=== PATIENT | male | born 1970 | race Caucasian/White ===

== ENCOUNTER 2023-02-10 16:23 | Outpatient (OUT) | payer MEDICARE, MEDICAID, SELFPAY ==
[2023-02-10 16:45] LABS: Basophils Absolute Auto 0.1 10^3/uL (0.0-0.1); Basophils Percent Auto 1.7 % (0.2-2.0); Eosinophils Absolute Auto 0.1 10^3/uL (0.0-0.7); Eosinophils Percent Auto 1.7 % (0.9-7.0); Hematocrit 45.5 % (42.0-54.0); Immature Granulocytes Abs Auto 0.02 10^3/uL (0.00-0.03); Immature Granulocytes Pct Auto 0.3 % (0.0-0.5); Lymphocytes Absolute Auto 1.7 10^3/uL (1.2-3.8); Mean Corpuscular HGB Conc 35.2 g/dL (29.9-35.2); Mean Corpuscular Hemoglobin 31.9 pg (25.9-34.0); Mean Corpuscular Volume 90.8 fL (80.0-94.0); Mean Platelet Volume 9.4 fL (9.5-13.5); Monocytes Absolute Auto 0.5 10^3/uL (0.3-0.8); Monocytes Percent Auto 7.4 % (1.7-12.0); Neutrophils Absolute Auto 3.9 10^3/uL (1.4-6.5); Neutrophils Percent Auto 61.9 % (43.0-75.0); Platelet Count 349 10^3/uL (150-450); Red Blood Count 5.01 10^6/uL (4.70-6.10); Red Cell Distribution Width 12.4 % (11.0-15.0); White Blood Count 6.4 10^3/uL (4.0-11.0)
[2023-02-10 17:02] LABS: Alanine Aminotransferase 21 U/L (16-63); Albumin Globulin Ratio 1.6; Albumin Level 4.4 g/dL (3.4-5.0); Alkaline Phosphatase 90 U/L (46-116); Anion Gap 9.8; Aspartate Amino Transferase 11 U/L (15-37); BUN Creatinine Ratio 3.4; Bilirubin Total 0.6 mg/dL (0.2-1.0); Calcium 8.6 mg/dL (8.5-10.1); Carbon Dioxide 32.2 mmol/L (21.0-32.0); Chloride 96 mmol/L (98-107); Estimated GFR (African America >60 (>=60); Estimated GFR (Non-African Ame >60 (>=60); Globulin 2.7 g/dL; Glucose 100 mg/dL (74-106); Sodium 134 mmol/L (136-145); Total Protein 7.1 g/dL (6.4-8.2)
[2023-02-10 18:25] LABS: Bilirubin Urine NEGATIVE (NEGATIVE); Blood Urine TRACE-I (NEGATIVE); Clarity Urine CLEAR (CLEAR); Color Urine LT. YELLOW (YELLOW); Glucose Urine UA NEGATIVE (NEGATIVE); Ketones Urine NEGATIVE (NEGATIVE); Leukocyte Esterase Urine SMALL (NEGATIVE); Nitrite Urine NEGATIVE (NEGATIVE); Protein Urine 30 mg/dL (NEG/TRACE); Specific Gravity Urine 1.015 (1.005-1.025); Urobilinogen Urine 0.2 EU/dL (0.2-1.0)
== END 2023-02-10 16:24 | disposition home or self-care (01) ==
PROVIDERS: PCP Family Medicine; Visit Provider Psychiatry & Neurology Neurology
DX: G35 Multiple sclerosis (principal); R82.89 Other abnormal findings on cytological and histological examination of urine
CPT/HCPCS: 36415; 80053; 81003; 85025; 87086

== ENCOUNTER 2023-07-09 10:51 | Outpatient (OUT) | payer MEDICARE, MEDICAID, SELFPAY ==
[2023-07-09 11:25] LABS: Basophils Absolute Auto 0.1 10^3/uL (0.0-0.1); Basophils Percent Auto 1.1 % (0.2-2.0); Eosinophils Absolute Auto 0.1 10^3/uL (0.0-0.7); Eosinophils Percent Auto 0.9 % (0.9-7.0); Hematocrit 47.8 % (42.0-54.0); Hemoglobin 15.9 g/dL (14.0-18.0); Immature Granulocytes Abs Auto 0.03 10^3/uL (0.00-0.03); Immature Granulocytes Pct Auto 0.2 % (0.0-0.5); Lymphocytes Absolute Auto 1.4 10^3/uL (1.2-3.8); Lymphocytes Percent Auto 11.8 % (20.5-60.0); Mean Corpuscular HGB Conc 33.3 g/dL (29.9-35.2); Mean Corpuscular Hemoglobin 30.7 pg (25.9-34.0); Mean Corpuscular Volume 92.3 fL (80.0-94.0); Mean Platelet Volume 9.9 fL (9.5-13.5); Monocytes Absolute Auto 0.6 10^3/uL (0.3-0.8); Monocytes Percent Auto 4.6 % (1.7-12.0); Neutrophils Absolute Auto 9.9 10^3/uL (1.4-6.5); Neutrophils Percent Auto 81.4 % (43.0-75.0); Platelet Count 489 10^3/uL (150-450); Red Blood Count 5.18 10^6/uL (4.70-6.10); Red Cell Distribution Width 12.5 % (11.0-15.0); White Blood Count 12.1 10^3/uL (4.0-11.0)
[2023-07-09 11:32] LABS: Alanine Aminotransferase 38 U/L (16-63); Albumin Globulin Ratio 1.1; Albumin Level 3.9 g/dL (3.4-5.0); Alkaline Phosphatase 97 U/L (46-116); Anion Gap 12.8; Aspartate Amino Transferase 23 U/L (15-37); BUN Creatinine Ratio 12.1; Bilirubin Total 0.5 mg/dL (0.2-1.0); Calcium 9.4 mg/dL (8.5-10.1); Carbon Dioxide 29.6 mmol/L (21.0-32.0); Chloride 99 mmol/L (98-107); Estimated GFR (African America >60 (>=60); Estimated GFR (Non-African Ame >60 (>=60); Globulin 3.4 g/dL; Glucose 77 mg/dL (74-106); Potassium 4.4 mmol/L (3.5-5.1); Sodium 137 mmol/L (136-145); Total Protein 7.3 g/dL (6.4-8.2)
== END 2023-07-09 10:52 | disposition home or self-care (01) ==
LOC: LAB 10:53
PROVIDERS: PCP Family Medicine
DX: G35 Multiple sclerosis (principal)
CPT/HCPCS: 36415; 80053; 85025

== ENCOUNTER 2023-08-26 05:25 | Inpatient (IN) | payer MEDICARE, MEDICAID, SELFPAY ==
[2023-08-26] VITALS (73 sets, daily range): BP systolic 99–183; BP diastolic 72–127; PULSE 77–122; RESP 12–32; TEMP 36.7–37.1; O2SAT 76–98; BMI 15.8
--- OUTSIDE RECORDS SUMMARY | 2023-08-26 05:33 | XMS_ITS | CCD ---
Author Name Unknown Address [address] [facility] [facility] [address] [place] [address] Organization [facility] Care Team Providers Care Industrial Maintenance Manager Name Role Phone Tunde Das Admitting Unavailable Tunde Das Attending Unavailable Bubba Ghotra Primary Care Unavailable BUBBA GHOTRA Primary Care Physician Heri MURRELL Referring Unavailable Heri MURRELL Admitting Unavailable Heri MURRELL Attending Unavailable Heri MURRELL Attending Unavailable LAMAR TURNER Attending Unavailable Heri MURRELL Attending Unavailable RIC ., ESA Attending Unavailable RIC ., ESA Admitting Unavailable HEMEJUDITH ., DR PEREIRA Primary Care Unavailable MARKER ., DR LIN Consulting Unavailable RIC ., ESA Consulting Unavailable LAKSHMIPATHY ., NARENDRANATH Consulting Maureen vailable HEMEYER ., DR PEREIRA Primary Care Unavailable HEMEYER ., DR PEREIRA Admitting Unavailable HEMEYER ., DR PEREIRA Attending Unavailable HEMEYER ., DR PEREIRA Admitting Unavailable HEMEYER ., DR PEREIRA Attending Unavailable HEMEYER ., DR PEREIRA Consulting Unavailable HEMEYER ., DR PEREIRA Primary Care Unavailable HEMEYER ., DR PEREIRA Primary Care Unavailable TATI, DR KELSEA Hamilton Attending Unavailayo DUFFY, DR KELSEA Hamilton Admitting Unavailabl e PIEDAD ., GILSON MCGRAW Consulting Unavailabl e RIC ., ESA Attending Unavailable RIC ., ESA Admitting Unavailable RIC ., ESA Consulting Unavailable HEMEYER ., DR PEREIRA Primary Care Unavailable KAIA SHEIKH Consulting Unavailable MISC, DR MASON Admitting Unavailable REQUEST, DR THOMASON LISTED Primary Care UnavailABIMAEL Willis Consulting Unavailable DONALD, DR MASON Attending Unavailable JULIO ., DR VILLAGOMEZ Attending Unavailable JULIO ., DR VILLAGOMEZ Admitting Unavailable [place], DR CRUZITO Schuster Consulting Unavailable HEMEYER ., DR PEREIRA Primary Care Unavailable JULIO ., DR VILLAGOMEZ Consulting Unavailable YUE, LAMAR Attending Unavailable YUE, LAMAR Admitting Unavailable YUE, LAMAR Consulting Unavailable HEMEYER ., DR PEREIRA Primary Care Unavailable BINH, JERI Attending Unavailable BINH, JERI Admitting Unavailable BINH, JERI Consulting Unavailable HEMEYER ., DR PEREIRA Primary Care Unavailable LAKSHMIPATHY ., NARENDRANATH Attending Maureen vailable LAKSHMIPATHY ., NARENDRANATH Admitting Maureen vailable LAKSHMIPATHY ., NARENDRANATH Consulting Maureen vailable HEMEYER ., DR PEREIRA Primary Care Unavailable BENEDICT, DR PORRAS Attending Unavailable BENEDICT, DR PORRAS Admitting Unavailable BENEDICT, DR PORRAS Consulting Unavailable HEMEYER ., DR PEREIRA Primary Care Unavailable REQUEST, DR NONE LISTED Primary Care Unavaila ble BENEDICT, DR PORRAS Attending Unavailable BENEDICT, DR PORRAS Admitting Unavailable BENEDICT, DR PORRAS Consulting Unavailable ZIEBER, DR VERN Ortiz Consulting Unavailable REQUEST, DR NONE LISTED Primary Care Unavaila ble BENEDICT, DR PORRAS Attending Unavailable BENEDICT, DR PORRAS Admitting Unavailable ZIEBER, DR VERN Ortiz Consulting Unavailable ROMERO ., DR LISA Schwartz Attending Unavailable ROMERO ., DR LISA Schwartz Admitting Unavailable GARRETT ., JULIA Consulting Unavailable HEMEYER ., DR PEREIRA Primary Care Unavailable LAKSHMIPATHY ., NARENDRANATH Attending Maureen vailable LAKSHMIPATHY ., NARENDRANATH Admitting Maureen vailable LAKSHMIPATHY ., NARENDRANATH Consulting Maureen vailable HEMEYER ., DR PEREIRA Primary Care Unavailable JERI PURCELL Attending Unavailable BINHJERI GARCÍA Admitting Unavailable HEMEYER ., DR PEREIRA Primary Care Unavailable BENEDICT, DR PORRAS Consulting Unavailable BENEDICT, DR PORRAS Attending Unavailable BENEDICT, DR PORRAS Admitting Unavailable ZIEBER, DR VERN Ortiz Consulting Unavailable LOWE, ANJALI Consulting Unavailable BENEDICT, DR PORRAS Attending Unavailable BENEDICT, DR PORRAS Admitting Unavailable HEMEYER ., DR PEREIRA Primary Care Unavailable MISC, DR MASON Admitting Unavailable REQUEST, DR NONE LISTED Primary Care Unavaila ble MISC, DR MASON Attending Unavailable JERI PURCELL Consulting Unavailable ROMERO ., DR LISA Schwartz Attending Unavailable GARRETT ., JULIA Consulting Unavailable ROMERO ., DR LISA Schwartz Admitting Unavailable HEMEYER ., DR PEREIRA Primary Care Unavailable Mahnaz Roth Unavailable MATY MEDEIROS Attending Unavailable Allergies Allergy Classification Reported Allergen(s) Allergy Type Date of Onset Reaction(s) Facility (13 sources) PARoxetine; Translations: [paroxetine] Drug Allergy Mild (qualifier value) [facility] (2 sources) PARoxetine Drug Allergy 3 [facility] (12 sources) venlafaxine Drug Allergy 3 Unknown [facility] Medications Current Medications Medication Drug Class(es) Dates Sig (Normalized) Sig (Original) [id number] actuat albuterol 0.09 mg/actuat metered dose inhaler (10 sources) beta2-Adrenergic Agonist take 1 puff(s) by inhalation every four hours as needed Albuterol Sulfate HFA 108 (90 Base) MCG/ACT 1 puff as needed Inhalation every 4 hrs Active take 1 puff(s) by in halation every four hours as needed Albuterol Sulfate HFA 108 (90 Base) MCG/ACT 1 puff as needed Inhalation every 4 hrs Active amitriptyline hydrochloride 50 mg oral tablet (2 sources) Tricyclic Antidepressant Start: 08-06-2021 take 1 tablet by mouth once daily at bedtime amitriptyline 50 mg Tab 50 mg = 1 tab(s), Oral, Once a day (at bedtime), # 30 tab(s), Refills(s) 0 Start Date: 08/06/21 Status: Ordered baclofen 10 mg oral tablet (12 sources) gamma-Aminobutyric Acid-ergic Agonist Start: 08-06-2021 take 5 mg by mouth three times daily baclofen 10 mg Tab 5 mg = 0.5 tab(s), Oral, TID, # 30 tab(s), Refills(s) 0 Start Date: 08/06/21 Status: Ordered Baclofen 10 MG a s directed Orally qid Active busPIRone hydrochloride 7.5 mg oral tablet (10 sources) take 1 tablet by mouth every twelve hours busPIRone HCl 7.5 MG 1 tablet Orally Twice a day Active ciprofloxacin 500 mg oral tablet (1 source) Quinolone Antimicrobial Start: 12-03-19 take 1 tablet by mouth twice daily Cipro 500 mg Tab 500 mg = 1 tab(s), Oral, BID, Start medication 3 days prior to procedure., # 14 tab(s), Refills(s) 0, Pharmacy: [facility]/pharmacy #[id number], 178, cm, 10/14/21 12:57:00 EDT, Height/Length Dosing, 65.8, kg, 10/14/21 12:57:00 EDT, Weight Dosing Start Date: 12/02/21 Status: Ordered clonazePAM 0.5 mg oral tablet (10 sources) Benzodiazepine take 1 tablet by mouth every twenty-four hours KlonoPIN 0.5 MG 1 tablet Orally Once a day Active DHEA (2 sources) Start: 08-31-19 DHEA Oral, Daily, Refills(s) 0 Start Date: 08/31/19 Status: Ordered diazePAM 10 mg oral tablet (1 source) Benzodiazepine Start: 10-15-19 Valium 10 mg Tab 10 mg = 1 tab(s), Oral, Once, Take 1/2 hour prior to procedure, # 1 tab(s), Refills(s) 0, Pharmacy: [facility]/pharmacy #[id number], 178, cm, 10/14/21 12:57:00 EDT, Height/Length Dosing, 65.8, kg, 10/14/21 12:57:00 EDT, Weight Dosing Start Date: 10/14/21 Status: Ordered diclofenac sodium 50 mg delayed release oral tablet (2 sources) Nonsteroidal Anti-inflammatory Drug Start: 08-06-19 take 1 mg by mouth three times daily diclofenac sodium 50 mg Oral EC Tab mg tab(s), Oral, TID, Refills(s) 0 Start Date: 08/06/21 Status: Ordered Start: 08-06-2021 take 1 mg by mouth t hree times daily diclofenac sodium 50 mg Oral EC Tab mg tab(s), Oral, TID, Refills(s) 0 Start Date: 08/06/21 Status: Ordered Cymbalta (12 sources) Serotonin and Norepinephrine Reuptake Inhibitor Start: 08-06-2021 Cymbalta Oral, Refills(s) 0 Start Date: 08/06/21 Status: Ordered take 1 capsule by [facility] every twenty-four hours DULoxetine HCl 60 MG 1 capsule Orally Once a day Active HYDROcodone bitartrate 7.5 mg / ibuprofen 200 mg oral tablet (2 sources) Opioid Agonist, Nonsteroidal Anti-inflammatory Drug Start: 08-06-2021 take 1 tablet by mouth three times daily for pain hydrocodone-ibuprofen 7.5 mg-200 mg Oral Tab 1 tab(s), Oral, TID for pain, Refill(s) 0 Start Date: 08/06/21 Status: Ordered losartan potassium 100 mg oral tablet (2 sources) Angiotensin 2 Receptor Karen Start: 10-14-2021 take 1 tablet by mouth once daily losartan 100 mg Tab 100 mg = 1 tab(s), Oral, Daily Start Date: 10/14/21 Status: Ordered meclizine hydrochloride 25 mg oral tablet (10 sources) Antiemetic take 1 tablet by mouth every twelve hours Meclizine HCl 25 MG 1 tablet as needed Orally every 12 hrs Active Melatonin (2 sources) Start: 08-31-2019 melatonin Once a day (at bedtime), Refills(s) 0 Start Date: 08/31/19 Status: Ordered 24 hr metoprolol succinate 50 mg extended release oral tablet (12 sources) beta-Adrenergic Karen Start: 12-05-2021 take 1 tablet by mouth twice daily metoprolol 50 mg ER Tab 50 mg = 1 tab(s), Oral, BID, Refills(s) 0 Start Date: 12/05/21 Status: Ordered take 1 tablet by rachel th every twelve hours Metoprolol Tartrate 50 MG 1 tablet with food Orally Twice a day Active Multi Vitamin+ (2 sources) Start: 08-31-2019 Multi Vitamin+ Refill(s) 0 Start Date: 08/31/19 Status: Ordered 10 ml ocrelizumab 30 mg/ml injection (10 sources) Ocrevus 300 MG/10ML as directed Intravenous As Directed Active ondansetron 4 mg oral tablet (10 sources) Serotonin-3 Receptor Antagonist take 1 tablet by mouth every twenty-four hours Ondansetron HCl 4 MG 1 tablet Orally Once a day Active OXcarbazepine 300 mg oral tablet (12 sources) Anti-epileptic Agent Start: 08-06-2021 take 2 tablets by mouth twice daily Trileptal 300 mg Tab 600 mg = 2 tab(s), Oral, BID, # 120 tab(s), Refills(s) 0 Start Date: 08/06/21 Status: Ordered take 1 tablet by rachel th every twelve hours OXcarbazepine 300 MG 1 tablet Orally Twi ce a day Active oxyCODONE hydrochloride 10 mg oral tablet (10 sources) Opioid Agonist Start: 08-21-2023 take 1 tablet by mouth every six hours oxyCODONE HCl 10 MG 1 tablet as needed Orally every 6 hrs for 30 days G89.4 palliative care prescribing Aug, Active Start: 07-22-2023 take 1 tablet by rachel th every six hours oxyCODONE HCl 10 MG 1 tablet as needed Orally every 6 hrs for 30 days G89.4 palliative care prescribing Jul, Active Start: 06-24-2023 take 1 tablet by rachel th every six hours oxyCODONE HCl 10 MG 1 tablet as needed Orally every 6 hrs for 30 days G89.4 palliative care prescribing Jun, Active Start: 05-28-2023 take 1 tablet by rachel th every six hours oxyCODONE HCl 10 MG 1 tablet as needed Orally every 6 hrs for 30 days G89.4 palliative care prescribing May, Active Start: 04-21-2023 take 1 tablet by rachel th every six hours oxyCODONE HCl 10 MG 1 tablet as needed Orally every 6 hrs for 30 days G89.4 palliative care prescribing Apr, Active Start: 04-07-2023 take 1 tablet by rachel th every six hours oxyCODONE HCl 10 MG 1 tablet as needed Orally every 6 hrs for 15 days G89.4 palliative care prescribing Mar, Active Start: 04-01-2023 take 1 tablet by rachel th every six hours oxyCODONE HCl 10 MG 1 tablet as needed Orally every 6 hrs for 7 days G89.4 palliative care prescribing Mar, Active Start: 03-25-2023 take 1 tablet by rachel th every eight hours oxyCODONE HCl 10 MG 1 tablet as needed Orally TID for 10 days G89.4 palliative care prescribing Mar, Active pantoprazole 40 mg delayed release oral tablet (12 sources) Proton Pump Inhibitor Start: 08-06-2021 take 1 mg by mouth twice daily pantoprazole 40 mg Oral EC Tab mg tab(s), Oral, BID, Refills(s) 0 Start Date: 08/06/21 Status: Ordered Start: 02-04-2021 take 1 tablet by rachel th every twelve hours Pantoprazole Sodium 40 MG 1 tablet Orally TWICE A DAY for 30 days Jan, Active predniSONE 10 mg oral tablet (10 sources) prednisone 10 mg as directed Orally as directed PRN Active pregabalin 200 mg oral capsule (12 sources) Start: 08-06-2021 take 1 capsule by mouth three times daily Lyrica 200 mg Cap 200 mg = 1 cap(s), Oral, TID, Refills(s) 0 Start Date: 08/06/21 Status: [facility] Pregabalin 200 MG 1 capsule 1 to 3 hours before bedtime Orally Once a day Active primidone 50 mg oral tablet (12 sources) Anti-epileptic Agent Start: 08-06-2021 primidone 50 mg Tab 25 mg = 0.5 tab(s), Oral, Once a day (at bedtime), # 15 tab(s), Refills(s) 0 Start Date: 08/06/21 Status: Ordered take 1 tablet by rachel th every twenty-four hours Primidone 50 MG 1 tablet Orally Once a day Active Promethazine (10 sources) Phenothiazine Promethazine HCl PRN Active QUEtiapine 25 mg oral tablet (12 sources) Atypical Antipsychotic Start: 08-06-19 take 2 tablets by mouth three times daily SEROquel 25 mg Tab 50 mg = 2 tab(s), Oral, TID, Refills(s) 0 Start Date: 08/06/21 Status: Ordered take 1 tablet by rachel th every twenty-four hours SEROquel 50 MG 1 tablet at bedtime Orally Once a day Active sennosides, residential 8.6 mg oral tablet (9 sources) Start: 04-02-2023 take 2 tablets by mouth twice daily as needed Senna 8.6 MG 2 tabs as needed Orally BID for 30 days Mar, Active tamsulosin hydrochloride 0.4 mg oral capsule (1 source) alpha-Adrenergi c Karen Start: 08-06-2021 take 1 capsule by mouth once daily Flomax 0.4 mg Cap 0.4 mg = 1 cap(s), Oral, Daily, # 30 cap(s), Refills(s) 0 Start Date: 08/06/21 Status: Ordered Problems Active Problems Problem Classification Problem Date Documented Da te Episodic/Chronic Administrative/social admission (1 source) Other specified counseling Episodic Anxiety disorders (14 sources) Anxiety disorder, unspecified; Translations: [Anxiety] Onset: 2 Chronic Asthma (3 sources) Asthma; Translations: [Unspecified asthma, uncomplicated] Onset: 3 08-31-2019 Chronic Blindness and vision defects (1 source) Other visual disturbances; Translations: [OTHER VISUAL DISTURBANCES] Onset: 3 Episodic Chronic obstructive pulmonary disease and bronchiectasis (3 sources) Chronic obstructive lung disease; Translations: [Emphysema, unspecified] Onset: 2 08-31-2019 Chronic Disorders of lipid metabolism (2 sources) Hyperlipidemia 08-31-2019 Chronic Esophageal disorders (10 sources) Gastroesophageal reflux disease; Translations: [Gastro-esophageal reflux disease without esophagitis] Chronic Essential hypertension (1 source) Essential (primary) hypertension; Translations: [ESSENTIAL PRIMARY HYPERTENSION] Onset: 3 Chronic Fluid and electrolyte disorders (1 source) Hypo-osmolality and hyponatremia; Translations: [HYPO-OSMOLALITY AND HYPONATREMIA] Onset: 3 Episodic Genitourinary symptoms and ill-defined conditions (4 sources) Post-micturition incontinence ; Translations: [Urge incontinence of urine] 08-31-2019 Chronic Hyperplasia of prostate (3 sources) Benign prostatic hypertrophy with outflow obstruction; Translations: [Benign prostatic hyperplasia with lower urinary tract symptoms] Onset: 2 10-14-2021 Chronic Malaise and fatigue (3 sources) Weakness; Translations: [WEAKNESS] Onset: 3 Episodic Mood disorders (3 sources) Depressive disorder; Translations: [Major depressive disorder, recurrent, moderate] Onset: 2 08-31-2019 Chronic Multiple sclerosis (18 sources) Multiple sclerosis; Translations: [Multiple sclerosis] Onset: 3 09-21-2019 Chronic Comment on above: Aug 2000 Nausea and vomiting (15 sources) Nausea with vomiting, unspecified; Translations: [Nausea] Onset: 3 Episodic Other aftercare (1 source) Other group home (current) drug therapy; Translations: [OTH [facility] CURRENT DRUG THERAPY] Onset: 3 Episodic Other aftercare (10 sources) Seen by palliative care physician; Translations: [Encounter for palliative care] Episodic Other aftercare (1 source) Encounter for palliative care Episodic Other diseases of kidney and ureters (1 source) Urinary tract obstruction; Translations: [Other obstructive and reflux uropathy] Onset: 2 Episodic Other gastrointestinal disorders (10 sources) Constipation; Translations: [Constipation, unspecified] Episodic Other gastrointestinal disorders (5 sources) Constipation, unspecified Episodic Other male genital disorders (2 sources) Mass of epididymis 08-31-2019 Episodic Other nervous system disorders (14 sources) Other chronic pain; Translations: [OTHER CHRONIC PAIN] Onset: 3 Chronic Other nervous system disorders (1 source) Polyneuropathy, unspecified; Translations: [POLYNEUROPATHY UNSPECIFIED] Onset: 2 Chronic Other nervous system disorders (1 source) Chronic pain syndrome; Translations: [CHRONIC PAIN SYNDROME] Onset: 2 Chronic Other nervous system disorders (10 sources) Chronic pain; Translations: [Other chronic pain] Chronic Other nervous system disorders (1 source) Paresthesia of skin; Translations: [PARESTHESIA OF SKIN] Onset: 3 Episodic Other screening for suspected conditions (not mental disorders or infectious disease) (3 sources) Raised prostate specific antigen; Translations: [Elevated prostate specific antigen [PSA]] Onset: 2 10-14-2021 Episodic Residual codes; unclassified (2 sources) Family history of malignant neoplasm of urinary bladder 08-31-2019 Episodic Residual codes; unclassified (1 source) Procedure and treatment not carried out because of patient's decision for other reasons; Translations: [PROC AND TX NOT CARRIED OUT PT OTH RSN] Onset: 3 Episodic Screening and history of mental health and substance abuse codes (2 sources) Ex-smoker 08-31-2019 Episodic Substance-related disorders (1 source) Nicotine dependence, cigarettes, uncomplicated; Translations: [NICOTINE DEPEND CIGARETTES UNCOMP] Onset: 3 Chronic Unclassified (1 source) G35 - Multiple sclerosis; Translations: [G35 - Multiple sclerosis] Onset: 8 Unclassified (2 sources) Asymptomatic microscopic hematuria 10-14-2021 Unclassified (2 sources) Finding of sensation of bladder 08-31-2019 Unclassified (1 source) CONTACT W/AND (SUSP) EXPOS COVID-19; Translations: [CONTACT W/AND (SUSP) EXPOS COVID-19] Onset: 3 Unclassified (2 sources) COUGH, UNSPECIFIED; Translations: [COUGH, UNSPECIFIED] Onset: 2 Past or Other Problems Problem Classification Problem Date Documented Da te Episodic/Chronic Genitourinary symptoms and ill-defined conditions (13 sources) Dysuria; Translations: [Increased frequency of urination] Onset: 12-12-2021 08-31-2019 Episodic Other lower respiratory disease (1 source) Shortness of breath; Translations: [SHORTNESS OF BREATH] Onset: 05-30-2022 Episodic Pneumonia (except that caused by tuberculosis or sexually transmitted disease) (1 source) Pneumonia, unspecified organism; Translations: [PNEUMONIA UNSPECIFIED ORGANISM] Onset: 05-30-2022 Episodic Unclassified (1 source) COUGH, UNSPECIFIED; Translations: [COUGH, UNSPECIFIED] Onset: 05-28-2022 Results Test Name Value Interpretation Reference Range Facility AMYLASEon 11-13-2022 Amylase [Catalytic activity/Vol] 37 U/L Normal 25-115 [facility] Comment on above: Performed By: #### A MY, CMP, LIPA ####[facility] [id number] [address]Dr. Cortez Younger CBC AUTO DIFFon 11-13-2022 BASO # 0.1 103/ul Normal 0.0-0.1 [facility] Comment on above: Performed By: #### C BC #### [facility] [address] [address] [address] Cortez Younger Basophils/100 WBC (Bld) 1.3 % Normal 0.2-2.0 [facility] Comment on above: Performed By: #### C BC #### [facility] [address] [address] [address] Cortez Younger EO # 0.1 103/ul Normal 0.0-0.7 [facility] Comment on above: Performed By: #### C BC #### [facility] [address] [address] [address] Cortez Younger Eosinophils/100 WBC (Bld) 0.9 % Normal 0.9-7.0 [facility] Comment on above: Performed By: #### C BC #### [facility] [address] [place] [address] Dr. Cortez Younger Erythrocyte distribution width (RBC) [Ratio] 12.5 % Normal 11.0-15.0 [facility] Comment on above: Performed By: #### C BC #### [facility] [address] [place] [address] Dr. Cortez Younger Hematocrit (Bld) [Volume fraction] 42.3 % Normal 42.0-54.0 [facility] Comment on above: Performed By: #### C BC #### [facility] [address] [place] [address] Dr. Cortez Younger Hemoglobin (Bld) [Mass/Vol] 15.1 g/dL Normal 14.0-18.0 [facility] Comment on above: Performed By: #### C BC #### [facility] [address] [place] [address] Dr. Cortez Younger IG # 0.04 10e3/ul Critically high 0.00-0.03 [facility] Comment on above: Performed By: #### C BC #### [facility] [address] [place] [address] Dr. Cortez Younger IG % 0.6 % Critically high 0.0-0.5 [facility] Comment on above: Performed By: #### C BC #### [facility] [address] [place] [address] Dr. Cortez Younger LYMPH # 1.4 103/ul Normal 1.2-3.8 [facility] Comment on above: Performed By: #### C BC #### [facility] [address] [place] [address] Dr. Cortez Younger Lymphocytes/100 WBC (Bld) 20.7 % Normal 20.5-60.0 [facility] Comment on above: Performed By: #### C BC #### [facility] [address] [place] [address] Dr. Cortez Younger MANUAL DIFF REQ NO Normal [facility] Comment on above: Performed By: #### C BC #### [facility] [address] [place] [address] Dr. Cortez Younger MCH (RBC) [Entitic mass] 31.6 pg Normal 25.9-34.0 [facility] Comment on above: Performed By: #### C BC #### [facility] [address] [place] [address] Dr. Cortez Younger MCHC (RBC) [Mass/Vol] 35.7 g/dL Critically high 29.9-35.2 [facility] Comment on above: Performed By: #### C BC #### [facility] [address] [place] [address] Dr. Cortez Younger MCV (RBC) [Entitic vol] 88.5 fL Normal 80.0-94.0 [facility] Comment on above: Performed By: #### C BC #### [facility] [address] [place] [address] Dr. Cortez Younger MONO # 0.5 103/ul Normal 0.3-0.8 [facility] Comment on above: Performed By: #### C BC #### [facility] [address] [place] [address] Dr. Cortez Younger Monocytes/100 WBC (Bld) 7.7 % Normal 1.7-12.0 [facility] Comment on above: Performed By: #### C BC #### [facility] [address] [place] [address] Dr. Cortez Younger NEUT # 4.8 103/ul Normal 1.4-6.5 [facility] Comment on above: Performed By: #### C BC #### [facility] [address] [place] [address] Dr. Cotrez Younger Neutrophils/100 WBC (Bld) 68.8 % Normal 43.0-75.0 [facility] Comment on above: Performed By: #### C BC #### [facility] [address] [place] [address] Dr. Cortez Younger Platelet mean volume (Bld) [Entitic vol] 9.0 fL Critically low 9.5-13.5 [facility] Comment on above: Performed By: #### C BC #### [facility] [address] [address] [address] Cortez Younger PLT 384 103/ul Normal 150-450 [facility] Comment on above: Performed By: #### C BC #### [facility] [address] [address] [address] Cortez Younger RBC 4.78 106/ul Normal 4.70-6.10 [facility] Comment on above: Performed By: #### C BC #### [facility] [address] [address] [address] Cortez Younger WBC 7.0 103/ul Normal 4.0-11.0 [facility] Comment on above: Performed By: #### C BC #### [facility] [address] [place] [address] Dr. Cortez Younger ER URINE PROFILEon 3 Bilirubin Ql (U) Negative Normal NEGATIVE [facility] Comment on above: Performed By: #### E RUR ####[facility] [id number] [place], [place] [address]Dr. Cortez Younger Clarity (U) CLEAR Normal CLEAR [facility] Comment on above: Performed By: #### E RUR ####[facility] [facility] [address] [place], [place] [address]Dr. Cortez Younger Color (U) LT. YELLOW Normal YELLOW [facility] Comment on above: Performed By: #### E RUR ####[facility] Ydvbggivxf[address] [place], [place] [address]Dr. Cortez Younger ERUAHD A micrscopic examina tion will be performed if indicated. Normal [facility] Comment on above: Performed By: #### E RUR ####[facility] Znjjvufyht434[address] [place], [place] [address]Dr. Cortez Younger Glucose Ql (U) Negative Normal NEGATIVE [facility] Comment on above: Performed By: #### E RUR ####[facility] Aanxdwsscm[address] [place], [place] [address]Dr. Cortez Younger Hemoglobin Ql (U) Negative Normal NEGATIVE [facility] Comment on above: Performed By: #### E RUR ####[facility] [address] [place] [address]Dr. Cortez Younger Ketones Ql (U) Negative Normal NEGATIVE [facility] Comment on above: Performed By: #### E RUR ####[facility] Xvozvnyjrx[address] [place] [address]Dr. Cortez Younger LEUKOCYTES Negative Normal NEGATIVE [facility] Comment on above: Performed By: #### E RUR ####[facility] Hldgjktuta24[address] [place], [place] [address]Dr. Cortez Younger Nitrite Ql (U) Negative Normal NEGATIVE [facility] Comment on above: Performed By: #### E RUR ####[facility] Bprpawzipb67[address] [place], [place] [address]Dr. Cortez Younger pH (U) 7.5 [pH] Normal 5-9 [facility] Comment on above: Performed By: #### E RUR ####[facility] Mqqeropqoz[address] [place], [place] [address]Dr. Cortez Younger SPEC GRAVITY <=1.005 Abnormal 1.005-<=1.025 [facility] Comment on above: Performed By: #### E RUR ####[facility] Qumfihmwif[address] [place], [place] [address]Dr. Cortez Younger UA PROTEIN Negative Normal NEGATIVE/ TRACE [facility] Comment on above: Performed By: #### E RUR ####[facility] Yumcwrgekz[address] [place], [place] [address]Dr. Cortez Younger UR MICRO IND NOT INDICATED Normal [facility] Comment on above: Performed By: #### E RUR ####[facility] Vvomqwbrxf[address] [place], [place] [address]Dr. Cortez Younger Urobilinogen Qn (U) 0.2 {Fidelia'U}/dL Normal 0.2 - 1. 0 [facility] Comment on above: Performed By: #### E RUR ####[facility] Zmfqasivvr[address] [place], [place] [address]Dr. Cortez Younger LIPASEon 05-04-2023 Lipase [Catalytic activity/Vol] 111.0 U/L Normal 73.0-393.0 [facility] Comment on above: Performed By: #### A MY, CMP, LIPA ####[facility] [address]wxyn[address] [place] [address]Dr. Cortez Younger PROF 14(COMP METB)on 023 Albumin [Mass/Vol] 3.9 g/dL Normal 3.4-5.0 [facility] Comment on above: Performed By: #### A MY, CMP, LIPA ####[facility] [address]xl[address] [place] [id number]. Cortez Younger Albumin/Globulin [Mass ratio] 1.4 {ratio} Normal [facility] Comment on above: Performed By: #### A MY, CMP, LIPA ####[facility] Xemnnilema[address] [place] [address]Dr. Cortez Younger ALP [Catalytic activity/Vol] 70 U/L Normal 46-116 [facility] Comment on above: Performed By: #### A MY, CMP, LIPA ####[facility] Efnipsmyyt[address] [place] [address]Dr. Cortez Younger ALT [Catalytic activity/Vol] 24 U/L Normal 16-63 [facility] Comment on above: Performed By: #### A MY, CMP, LIPA ####[facility] Zolqkocgkt[address] [place] [address]Dr. Cortez Younger Anion gap [Moles/Vol] 9.8 mmol/L Normal [facility] Comment on above: Performed By: #### A MY, CMP, LIPA ####[facility] [address]gojwpujfx[address] [place] [id number]. Cortez Younger AST [Catalytic activity/Vol] 12 U/L Critically low 15-37 [facility] Comment on above: Performed By: #### A MY, CMP, LIPA ####[facility] Ltcqinscke[address] [place] [address]Dr. Cortez Younger Bilirubin [Mass/Vol] 0.3 mg/dL Normal 0.2-1.0 [facility] Comment on above: Performed By: #### A MY, CMP, LIPA ####[facility] [address] [place] [address]Dr. oCrtez Younger Calcium [Mass/Vol] 9.2 mg/dL Normal 8.5-10.1 [facility] Comment on above: Performed By: #### A MY, CMP, LIPA ####[facility] Atqrldrfon[address] [place], [place] [address]Dr. Cortez Younger Chloride [Moles/Vol] 98 mmol/L Normal 98-107 [facility] Comment on above: Performed By: #### A MY, CMP, LIPA ####[facility] Qvyxuvijlf[address] [place], [place] [address]Dr. Cortez Younger CO2 [Moles/Vol] 28.7 mmol/L Normal 21.0-32.0 [facility] Comment on above: Performed By: #### A MY, CMP, LIPA ####[facility] Djytbhrvyo[address] [place], [place] [address]Dr. Cortez Younger Creatinine [Mass/Vol] 0.88 mg/dL Normal 0.70-1.30 [facility] Comment on above: Performed By: #### A MY, CMP, LIPA ####[facility] Rsredpubep[address] [place], [place] [address]Dr. Cortez Younger EGFR-AF SAMOAN >60 Normal >=60 [facility] Comment on above: Performed By: #### A MY, CMP, LIPA ####[facility] Mrawnpwnwx[address] [place], [place] [address]Dr. Cortez Younger EGFR-NON AF SAMOAN >60 Normal >=60 [facility] Comment on above: Performed By: #### A MY, CMP, LIPA ####[facility] Ycdriamgya[address] [place], [place] [address]Dr. Cortez Younger Globulin (S) [Mass/Vol] 2.7 g/dL Normal [facility] Comment on above: Performed By: #### A MY, CMP, LIPA ####[facility] Eofqijycav[address] [place], [place] [address]Dr. Cortez Younger Glucose [Mass/Vol] 105 mg/dL Normal 74-106 [facility] Comment on above: Performed By: #### A MY, CMP, LIPA ####[facility] [address]xd[address] [place] [address]Dr. Cortez Younger Potassium [Moles/Vol] 3.5 mmol/L Normal 3.5-5.1 [facility] Comment on above: Performed By: #### A MY, CMP, LIPA ####[facility] Pvqosqwcey[address] [place] [address]Dr. Cortez Younger Protein [Mass/Vol] 6.6 g/dL Normal 6.4-8.2 [facility] Comment on above: Performed By: #### A MY, CMP, LIPA ####[facility] Vfcoqkksxl[address] [place] [address]Dr. Cortez Younger Sodium [Moles/Vol] 133 mmol/L Critically low 136-145 [facility] Comment on above: Performed By: #### A MY, CMP, LIPA ####[facility] [address]aqwyocng[address] [place] [address]Dr. Cortez Younger Urea nitrogen [Mass/Vol] 4.0 mg/dL Critically low 7.0-18.0 [facility] Comment on above: Performed By: #### A MY, CMP, LIPA ####[facility] [address]om[address]fdup[address] [place] [address]Dr. Cortez Younger Urea nitrogen/Creatinine [Mass ratio] 4.5 mg/mg Normal [facility] Comment on above: Performed By: #### A MY, CMP, LIPA ####[facility] Zdoaciorqt[address] [place] [address]Dr. Cortez Younger XR ABD FLAT UP_PA Farideh 11-13 XR ABD FLAT UP_PA CH EXAMINATION: XR ABD FLAT UP_PA CH HISTORY: NAUSEA WITH VOMITING, UNSPECIFIED COMPARISON: 05/28/2022 FINDINGS: LUNGS: No infiltrate, pneumothorax, or pleural effusion. MEDIASTINUM: No abnormal widening. BOWEL GAS PATTERN: Non-obstructed. FREE AIR: None. CALCIFICATIONS: None significant. BONES: No fracture or visible bone lesion. OTHER: Negative. IMPRESSION: Clear lungs Nonobstructive bowel gas pattern Electronically authenticated by: CRUZITO CRENSHAW Date: 2022-11-13 13:22 Normal [facility] FREE T4on 10-31-2022 Free T4 [Mass/Vol] 1.03 ng/dL Normal 0.76-1.46 [facility] Comment on above: Performed By: #### E RUR #### [facility] [address] [place] [address] Dr. Cortez Younger LIPID PROFILEon 10-31-2022 CHOL-HDL RATIO NORM SEE BELOW Normal [facility] Comment on above: Result Comment: 3.3 - 4.4 LOW RISK 4.4 - 7.1 AVERAGE RISK 7.1 - 11.0 MODERATE RISK >11.0 HIGH RISK Performed By: #### E RUR #### [facility] [address] [place] [address] Dr. Cortez Younger Cholesterol [Mass/Vol] 165 mg/dL Normal <=200 [facility] Comment on above: Performed By: #### E RUR #### [facility] [address] [address] [address] Cortez Younger Cholesterol in HDL [Mass/Vol] 59 mg/dL Normal 40-60 [facility] Comment on above: Performed By: #### E RUR #### [facility] [address] [place] [address] Dr. Cortez Younger Cholesterol in LDL [Mass/Vol] 83.8 mg/dL Normal [facility] Comment on above: Performed By: #### E RUR #### [facility] [address] [address] [address] Cortez Younger Cholesterol.total/C holesterol in HDL [Mass ratio] 2.8 {ratio} Normal [facility] Comment on above: Performed By: #### E RUR #### [facility] [address] [place] [address] Dr. Cortez Younger HDL NORMAL > or = 60 mg/dl - LO W CARDIOVASCULAR RISK <40 mg/dl - HIGH CARDIOVASCULAR RISK Normal [facility] Comment on above: Performed By: #### E RUR #### [facility] [address] [address] [address] Cortez Younger LDL CALC NORMAL SEE BELOW Normal [facility] Comment on above: Result Comment: <100 mg/dl OPTIMAL 100 - 129 mg/dl NEAR OR ABOVE OPTIMAL 130 - 159 mg/dl BORDERLINE HIGH 160 - 189 mg/dl HIGH >190 mg/dl VERY HIGH Performed By: #### E RUR #### [facility] [address] [address] [address] Cortez Younger Triglyceride [Mass/Vol] 111 mg/dL Normal <=150 [facility] Comment on above: Performed By: #### E RUR #### [facility] [address] [place] [address] Dr. Cortez Younger VLDL CALC 22.2 mg/dL Normal [facility] Comment on above: Performed By: #### E RUR #### [facility] [address] [place] [address] Dr. Cortez Younger MRI BRAIN WO W CONon 023 MRI BRAIN WO W CON EXAMINATION: MRI BRA IN WO W CON HISTORY: Multiple sclerosis ; recent visual changes COMPARISON: MRI brain 01/02/2022, 04/01/2021 TECHNIQUE: A variety of imaging planes and parameters were utilized for visualization of suspected pathology. Images were performed without and with ml Dotare[employer] contrast. FINDINGS: CEREBRUM: Stable appearance of several deep white matter lesions compatible with areas of demyelination; no appreciable change in size or enhancement to suggest active demyelination. No new lesions. No evidence of acute or subacute infarction. CEREBELLUM: No edema, hemorrhage, mass, acute infarction, or inappropriate atrophy. BRAINSTEM: No edema, hemorrhage, mass, acute infarction, or inappropriate atrophy. CSF SPACES: Ventricles, cisterns, and sulci are appropriate for age. No hydrocephalus, subarachnoid hemorrhage, or mass. SKULL: No mass or other significant visible lesion. Stable 2.1 cm x 0.4 cm crescentic shaped areas increased T2 signal overlying the lateral right frontal bone; possible fluid collection; nonspecific. SINUSES: Limited views demonstrate no significant mucosal thickening or fluid. ORBITS: Limited views are unremarkable. OTHER: No abnormal meningeal or parenchymal enhancement. IMPRESSION: 1. Stable deep white matter changes compatible with multiple sclerosis. No new lesions or enhancement to suggest active demyelination. 2. Unremarkable orbits. Electronically authenticated by: VERN LU Date: 2022-10-31 13:12 Normal [facility] PROF 14(COMP METB)on 023 Albumin [Mass/Vol] 4.0 g/dL Normal 3.4-5.0 [facility] Comment on above: Performed By: #### C MP ####[facility] [address] [place] [address]Dr. Cortez Younger Albumin/Globulin [Mass ratio] 1.3 {ratio} Normal [facility] Comment on above: Performed By: #### C MP ####[facility] [address] [place] [address]Dr. Cortez Younger ALP [Catalytic activity/Vol] 66 U/L Normal 46-116 [facility] Comment on above: Performed By: #### C MP ####[facility] R[address]xou[address] [place] [address]Dr. Cortez Younger ALT [Catalytic activity/Vol] 21 U/L Normal 16-63 [facility] Comment on above: Performed By: #### C MP ####[facility] Iyblougogb[address] [place] [address]Dr. Cortez Younger Anion gap [Moles/Vol] 9.4 mmol/L Normal [facility] Comment on above: Performed By: #### C MP ####[facility] Xkpxpqqhhp[address] [place] [address]Dr. Cortez Younger AST [Catalytic activity/Vol] 10 U/L Critically low 15-37 [facility] Comment on above: Performed By: #### C MP ####[facility] Tvlsjamcsd[address] [place] [address]Dr. Cortez Younger Bilirubin [Mass/Vol] 0.4 mg/dL Normal 0.2-1.0 [facility] Comment on above: Performed By: #### C MP ####[facility] Qkwfmdoecw[address] [place] [address]Dr. Cortez Younger Calcium [Mass/Vol] 9.1 mg/dL Normal 8.5-10.1 [facility] Comment on above: Performed By: #### C MP ####[facility] Avngbsswlb[address] [place] [address]Dr. Cortez Younger Chloride [Moles/Vol] 98 mmol/L Normal 98-107 [facility] Comment on above: Performed By: #### C MP ####[facility] [address]ke[address] [place] [id number]. Cortez Younger CO2 [Moles/Vol] 29.8 mmol/L Normal 21.0-32.0 [facility] Comment on above: Performed By: #### C MP ####[facility] Tbprdghowe[address] [place] [address]Dr. Cortez Younger Creatinine [Mass/Vol] 0.89 mg/dL Normal 0.70-1.30 [facility] Comment on above: Performed By: #### C MP ####[facility] E[address]ou[address]tah[address] [place], [place] [address]Dr. Cortez Younger EGFR-AF SAMOAN >60 Normal >=60 [facility] Comment on above: Performed By: #### C MP ####[facility] Xvuvewzuhy[address] [place] [address]Dr. Cortez Younger EGFR-NON AF SAMOAN >60 Normal >=60 [facility] Comment on above: Performed By: #### C MP ####[facility] Utnhanwkmh[address] [place] [address]Dr. Cortez Younger Globulin (S) [Mass/Vol] 3.1 g/dL Normal [facility] Comment on above: Performed By: #### C MP ####[facility] Uxvxsbucxj[address] [place] [address]Dr. Cortez Younger Glucose [Mass/Vol] 109 mg/dL Critically high 74-106 [facility] Comment on above: Performed By: #### C MP ####[facility] Ektexyktiw[address] [place] [address]Dr. Cortez Younger Potassium [Moles/Vol] 4.2 mmol/L Normal 3.5-5.1 [facility] Comment on above: Performed By: #### C MP ####[facility] [address]dtcagi[address] [place] [id number]. Cortez Younger Protein [Mass/Vol] 7.1 g/dL Normal 6.4-8.2 [facility] Comment on above: Performed By: #### C MP ####[facility] Wntlsqqlkc5[address] [place] [id number]. Cortez Younger Sodium [Moles/Vol] 133 mmol/L Critically low 136-145 [facility] Comment on above: Performed By: #### C MP ####[facility] Zeyjpsjxwq[address] [place] [address]Dr. Cortez Younger Urea nitrogen [Mass/Vol] 7.0 mg/dL Normal 7.0-18.0 [facility] Comment on above: Performed By: #### C MP ####[facility] Kykbdsekzg[address] [place] [address]Dr. Cortez Younger Urea nitrogen/Creatinine [Mass ratio] 7.9 mg/mg Normal [facility] Comment on above: Performed By: #### C MP ####[facility] Qzlldircjz[address] [place] [address]Dr. Cortez Younger TSHon 10-31-2022 TSH 1.574 uIU/mL Normal 0.358-3.740 [facility] Comment on above: Performed By: #### T SH #### [facility] [address] [place] [address] Dr. Cortez Younger COMPLIANCE DRUG SCREENon PDF . [facility] Comment on above: Performed By: #### E RUR #### [facility] [address] [place] [address] Dr. Cortez Younger Summary FINAL Normal [facility] Comment on above: Result Comment: == TOXASSURE COMP DRUG ANALYSIS,UR == Test Result Flag Units Drug Present Desmethyldiazepam 885 ng/mg creat Oxazepam 3065 ng/mg creat Temazepam 2460 ng/mg creat Desmethyldiazepam, oxazepam, and temazepam are benzodiazepine drugs, but may also be present as common metabolites of other benzodiazepine drugs, including diazepam. Carboxy-THC 105 ng/mg creat Carboxy-THC is a metabolite of tetrahydrocannabinol (THC). Source of THC is most commonly herbal marijuana or marijuana-based products, but THC is also present in a scheduled prescription medication. Trace amounts of THC can be present in hemp and cannabidiol (CBD) products. This test is not intended to distinguish between agjms-4-iyjsgwowufokegimryie, the predominant form of THC in most herbal or marijuana-based products, and mabox-9-ucznyintqziubjqwlomw. Norhydrocodone 1620 ng/mg creat Norhydrocodone is an expected metabolite of hydrocodone. Primidone PRESENT Phenobarbital PRESENT Phenobarbital is an expected metabolite of primidone; Phenobarbital may also be administered as a prescription drug. Pregabalin PRESENT Oxcarbazepine MHD PRESENT Oxcarbazepine MHD is the active metabolite of oxcarbazepine and eslicarbazepine. Baclofen PRESENT Acetaminophen PRESENT Metoprolol PRESENT == Test Result Flag Units Ref Range Creatinine 20 mg/dL >=20 == Declared Medications: Medication list was not provided. == For clinical consultation, please call . == Performed By: #### E RUR #### [facility] [address] [place] [address] Dr. Cortez Younger HYDROCODONE AND METABOLITE, URINEon 10-24-2022 Hydrocodone 55 ng/mL Normal [facility] Comment on above: Performed By: #### E RUR #### [facility] [address] [place] [address] Dr. Cortez Younger Hydromorphone Negative Normal [facility] Comment on above: Result Comment: This test was developed and its performance characteristics determined by [employer]. It has not been cleared or approved by the Food and Drug Administration. Performed By: #### E RUR #### [facility] [address] [place] [address] Dr. Cortez Younger OSMOLALITYon 10-20-2022 Osmolality QNSREP Normal [facility] Comment on above: Result Comment: Spec imen quantity insufficient for verification by repeat analysis. contacted Lynda at your facility on 10-20-2022 Performed By: #### C BC #### [facility] [address] [place] [address] Dr. Cortez Younger OSMOLALITY URINEon Osmolality, Urine 119 mOsmol/kg Normal [facility] Comment on above: Result Comment: 24 h r : 300 - 900 Random: 50 - 1400 After 12hr fluid restriction: >850 Performed By: #### O SMOU ####[facility] [address] [place] [address]Dr. Cortez Younger CBC AUTO DIFFon 10-16-2022 BASO # 0.0 103/ul Normal 0.0-0.1 [facility] Comment on above: Performed By: #### C BC ####[facility] [address] [place] [id number]. Cortez Younger Basophils/100 WBC (Bld) 0.3 % Normal 0.2-2.0 [facility] Comment on above: Performed By: #### C BC ####[facility] [address]rguyvwuf[address] [place] [address]Dr. Cortez Younger EO # 0.0 103/ul Normal 0.0-0.7 [facility] Comment on above: Performed By: #### C BC ####[facility] Pfds[address]ro[address] [place], [place] [address]Dr. Cortez Younger Eosinophils/100 WBC (Bld) 0.2 % Critically low 0.9-7.0 [facility] Comment on above: Performed By: #### C BC ####[facility] Zorvpupgen[address] [place], [place] [address]Dr. Cortez Younger Erythrocyte distribution width (RBC) [Ratio] 12.1 % Normal 11.0-15.0 [facility] Comment on above: Performed By: #### C BC ####[facility] Wzezwgwmor[address] [place], [place] [address]Dr. Cortez Younger Hematocrit (Bld) [Volume fraction] 45.9 % Normal 42.0-54.0 [facility] Comment on above: Performed By: #### C BC ####[facility] Hve[address]vks[address] [place], [place] [address]Dr. Cortez Younger Hemoglobin (Bld) [Mass/Vol] 16.7 g/dL Normal 14.0-18.0 [facility] Comment on above: Performed By: #### C BC ####[facility] [address]qu[address] [place] [address]Dr. Cortez Aren IG # 0.06 10e3/ul Critically high 0.00-0.03 [facility] Comment on above: Performed By: #### C BC ####[facility] [address]wfoxe[address] [id number]. Eleanorvalerie Younger IG % 0.5 % Normal 0.0-0.5 [facility] Comment on above: Performed By: #### C BC ####[facility] [address]ke[address] [place] [address]Dr. Cortez Aren LYMPH # 1.5 103/ul Normal 1.2-3.8 [facility] Comment on above: Performed By: #### C BC ####[facility] [address]qxpgdgk[address] [place] [address]Dr. Eleanorvalerie Younger Lymphocytes/100 WBC (Bld) 13.5 % Critically low 20.5-60.0 [facility] Comment on above: Performed By: #### C BC ####[facility] [address]mr[address]zse[address] [place] [address]Dr. Eleanorvalerie Younger MANUAL DIFF REQ NO Normal [facility] Comment on above: Performed By: #### C BC ####[facility] [address] [place] [id number]. Cortez Aren MCH (RBC) [Entitic mass] 31.2 pg Normal 25.9-34.0 [facility] Comment on above: Performed By: #### C BC ####[facility] [address]uwuwfu[address] [place] [address]Dr. Cortez Younger MCHC (RBC) [Mass/Vol] 36.4 g/dL Critically high 29.9-35.2 [facility] Comment on above: Performed By: #### C BC ####[facility] [address]vrxihd[address] [place] [id number]. Cortez Aren MCV (RBC) [Entitic vol] 85.6 fL Normal 80.0-94.0 [facility] Comment on above: Performed By: #### C BC ####[facility] [address] [place], [place] [address]Dr. Cortez Younger MONO # 0.6 103/ul Normal 0.3-0.8 [facility] Comment on above: Performed By: #### C BC ####[facility] [address]zbf[address] [place] [id number]. Cortez Younger Monocytes/100 WBC (Bld) 5.4 % Normal 1.7-12.0 [facility] Comment on above: Performed By: #### C BC ####[facility] [address]ynzduou[address] [place] [id number]. Cortez Younger NEUT # 8.9 103/ul Critically high 1.4-6.5 [facility] Comment on above: Performed By: #### C BC ####[facility] R[address]bxhedyx[address] [place] [id number]. Cortez Younger Neutrophils/100 WBC (Bld) 80.1 % Critically high 43.0-75.0 [facility] Comment on above: Performed By: #### C BC ####[facility] [address]ix[address] [place] [address]Dr. Cortez Younger Platelet mean volume (Bld) [Entitic vol] 9.7 fL Normal 9.5-13.5 [facility] Comment on above: Performed By: #### C BC ####[facility] [address] [place] [id number]. Cortez Younger PLT 364 103/ul Normal 150-450 [facility] Comment on above: Performed By: #### C BC ####[facility] [address] [place] [place] [id number]. Cortez Younger RBC 5.36 106/ul Normal 4.70-6.10 [facility] Comment on above: Performed By: #### C BC ####[facility] [address] [place] [id number]. Cortez Younger WBC 11.1 103/ul Critically high 4.0-11.0 [facility] Comment on above: Performed By: #### C BC ####[facility] [address] [place], [place] [address]Dr. Cortez Younger Covid-19 PCR (CVDTB)on SARS-CoV-2 (COVID-19) RNA AXEL+probe Ql (Unsp spec) Not detected Normal NOT DETECTED [facility] Comment on above: Result Comment: When diagnostic testing is negative, the possibility of a false negative should be considered in the context of a patient's recent exposures and the presence of clinical signs and symptoms consistent with SARS-CoV-2. This test is not yet approved or cleared by the [place] FDA. When there are no FDA-approved or cleared tests available, and other criteria are met, FDA can make tests available under an emergency access mechanism called an Emergency Use Authorization (EUA). The EUA for this test is supported by the [employer] of Health and Human Service's declaration that circumstances exist to justify the emergency use of in vitro diagnostics for the detection and/or diagnosis of the virus that causes COVID-19. This EUA will remain in effect for the duration of the COVID-19 declaration justifying emergency of IVDs, unless it is terminated or revoked by the FDA (after which the test may no longer be used). Performed By: #### C VDTB ####[facility] [address] [address]Dr. Cortez Younger DRUG SCREEN RAPID (URINE)on 10-16-2022 AMP Negative Normal NEGATIVE [facility] Comment on above: Performed By: #### C BC #### [facility] [address] [place] [address] Dr. Cortez Younger BAR Positive Abnormal NEGATIVE [facility] Comment on above: Performed By: #### C BC #### [facility] [address] [place] [address] Dr. Cortez Younger BUP Negative Normal NEGATIVE [facility] Comment on above: Performed By: #### C BC #### [facility] [address] [place] [address] Dr. Cortez Younger BZO Positive Abnormal NEGATIVE [facility] Comment on above: Performed By: #### C BC #### [facility] [address] [place] [address] Dr. Cortez Younger OK Negative Normal NEGATIVE [facility] Comment on above: Performed By: #### C BC #### [facility] [address] [place] [address] Dr. Cortez Younger CUT-OFFS SEE BELOW Normal [facility] Comment on above: Result Comment: AMP (Amphetamine): 500ng/mL, BAR (Barbituates): 200 ng/mL, BZO (Benzodiazepines): 150 ng/mL, BUP (Buprenorphine): 10 ng/mL, OK (Cocaine): 150 ng/mL, mAMP (Methamphetamine): 500 ng/mL, MTD (Methadone): 200 ng/mL, OPI (Opiates): 100 ng/mL, OXY (Oxycodone): 100 ng/mL, PCP (Phencyclidine): 25 ng/mL, PPX (Propoxyphene): 300 ng/mL, THC (Cannabinoids): 50 ng/mL, TCA (Trycyclic Antidepressants): 300 ng/mL Performed By: #### C BC #### [facility] [address] [place] [address] Dr. Cortez Younger DRUG CUT HEADER DRUG CLASS TEST SYST EM CUT-OFF CONCENTRATIONS ARE FOLLOWS: Normal [facility] Comment on above: Performed By: #### C BC #### [facility] [address] [place] [address] Dr. Cortez Younger mAMP Negative Normal NEGATIVE [facility] Comment on above: Performed By: #### C BC #### [facility] [address] [place] [address] Dr. Cortez Younger MTD Negative Normal NEGATIVE [facility] Comment on above: Performed By: #### C BC #### [facility] [address] [place] [address] Dr. Cortez Younger OPI Positive Abnormal NEGATIVE [facility] Comment on above: Performed By: #### C BC #### [facility] [address] [place] [address] Dr. Cortez Younger OXY Negative Normal NEGATIVE [facility] Comment on above: Performed By: #### C BC #### [facility] [address] [place] [address] Dr. Cortez Younger PCP Negative Normal NEGATIVE [facility] Comment on above: Performed By: #### C BC #### [facility] [address] [place] [address] Dr. Cortez Younger PPX Negative Normal NEGATIVE [facility] Comment on above: Performed By: #### C BC #### [facility] [address] [place] [address] Dr. Cortez Younger TCA Negative Normal NEGATIVE [facility] Comment on above: Performed By: #### C BC #### [facility] [address] [place] [address] Dr. Cortez Younger THC Positive Abnormal NEGATIVE [facility] Comment on above: Performed By: #### C BC #### [facility] [address] [place] [address] Dr. Cortez Younger ER URINE PROFILEon 3 Bilirubin Ql (U) Negative Normal NEGATIVE [facility] Comment on above: Performed By: #### C BC #### [facility] [address] [place] [address] Dr. Cortez Younger Clarity (U) CLEAR Normal CLEAR [facility] Comment on above: Performed By: #### C BC #### [facility] [address] [place] [address] Dr. Cortez Younger Color (U) LT. YELLOW Normal YELLOW [facility] Comment on above: Performed By: #### C BC #### [facility] [address] [place] [address] Dr. Cortez Younger ERUAHD A micrscopic examina tion will be performed if indicated. Normal [facility] Comment on above: Performed By: #### C BC #### [facility] [address] [place] [address] Dr. Cortez Younger Glucose Ql (U) Negative Normal NEGATIVE [facility] Comment on above: Performed By: #### C BC #### [facility] [address] [place] [address] Dr. Cortez Younger Hemoglobin Ql (U) Negative Normal NEGATIVE [facility] Comment on above: Performed By: #### C BC #### [facility] [address] [place] [address] Dr. Cortez Younger Ketones Ql (U) Negative Normal NEGATIVE [facility] Comment on above: Performed By: #### C BC #### [facility] [address] [place] [address] Dr. Cortez Younger LEUKOCYTES Negative Normal NEGATIVE [facility] Comment on above: Performed By: #### C BC #### [facility] [address] [address] [address] Cortez Younger Nitrite Ql (U) Negative Normal NEGATIVE [facility] Comment on above: Performed By: #### C BC #### [facility] [address] [place] [address] Dr. Cortez Younger pH (U) 7.5 [pH] Normal 5-9 [facility] Comment on above: Performed By: #### C BC #### [facility] [address] [place] [address] Dr. Cortez Younger SPEC GRAVITY <=1.005 Abnormal 1.005-<=1.025 [facility] Comment on above: Performed By: #### C BC #### [facility] [address] [place] [address] Dr. Cortze Younger UA PROTEIN Negative Normal NEGATIVE/ TRACE [facility] Comment on above: Performed By: #### C BC #### [facility] [address] [place] [address] Dr. Cortez Younger UR MICRO IND NOT INDICATED Normal [facility] Comment on above: Performed By: #### C BC #### [facility] [address] [place] [address] Dr. Cortez Younger Urobilinogen Qn (U) 0.2 {Fidelia'U}/dL Normal 0.2 - 1. 0 [facility] Comment on above: Performed By: #### C BC #### [facility] [address] [place] [address] Dr. Cortez Younger NAon 10-16-2022 Sodium [Moles/Vol] 125 mmol/L Critically low 136-145 Th [facility] Comment on above: Performed By: #### E RUR #### [facility] [address] [place] [address] Dr. Cortez Younger POTASSIUM URINEon 10-16-2022 UR POTASSIUM 11.8 mmol/L Normal [facility] Comment on above: Performed By: #### K U ####[facility] [address] [address]Dr. Cortez Younger PROF 14(COMP METB)on 023 Albumin [Mass/Vol] 4.2 g/dL Normal 3.4-5.0 [facility] Comment on above: Performed By: #### E RUR #### [facility] [address] [address] [address] Cortez Younger Albumin/Globulin [Mass ratio] 1.3 {ratio} Normal [facility] Comment on above: Performed By: #### E RUR #### [facility] [address] [address] [address] Cortez Younger ALP [Catalytic activity/Vol] 75 U/L Normal 46-116 [facility] Comment on above: Performed By: #### E RUR #### [facility] [address] [place] [address] Dr. Cortez Younger ALT [Catalytic activity/Vol] 23 U/L Normal 16-63 [facility] Comment on above: Performed By: #### E RUR #### [facility] [address] [place] [address] Dr. Cortez Younger Anion gap [Moles/Vol] 9.7 mmol/L Normal [facility] Comment on above: Performed By: #### E RUR #### [facility] [address] [place] [address] Dr. Cortez Younger AST [Catalytic activity/Vol] 16 U/L Normal 15-37 [facility] Comment on above: Performed By: #### E RUR #### [facility] [address] [place] [address] Dr. Cortez Younger Bilirubin [Mass/Vol] 0.4 mg/dL Normal 0.2-1.0 [facility] Comment on above: Performed By: #### E RUR #### [facility] [address] [place] [address] Dr. Cortez Younger Calcium [Mass/Vol] 9.1 mg/dL Normal 8.5-10.1 [facility] Comment on above: Performed By: #### E RUR #### [facility] [address] [address] [address] Cortez Younger Chloride [Moles/Vol] 88 mmol/L Critically low 98-107 [facility] Comment on above: Performed By: #### E RUR #### [facility] [address] [place] [address] Dr. Cortez Younger CO2 [Moles/Vol] 26.5 mmol/L Normal 21.0-32.0 [facility] Comment on above: Performed By: #### E RUR #### [facility] [address] [place] [address] Dr. Cortez Younger Creatinine [Mass/Vol] 0.73 mg/dL Normal 0.70-1.30 [facility] Comment on above: Performed By: #### E RUR #### [facility] [address] [place] [address] Dr. Cortez Younger EGFR-AF SAMOAN >60 Normal >=60 [facility] Comment on above: Performed By: #### E RUR #### [facility] [address] [place] [address] Dr. Cortez Younger EGFR-NON AF SAMOAN >60 Normal >=60 [facility] Comment on above: Performed By: #### E RUR #### [facility] [address] [place] [address] Dr. Cortez Younger Globulin (S) [Mass/Vol] 3.2 g/dL Normal [facility] Comment on above: Performed By: #### E RUR #### [facility] [address] [address] [address] Cortez Younger Glucose [Mass/Vol] 109 mg/dL Critically high 74-106 T [facility] Comment on above: Performed By: #### E RUR #### [facility] [address] [place] [address] Dr. Cortez Younger Potassium [Moles/Vol] 4.2 mmol/L Normal 3.5-5.1 [facility] Comment on above: Performed By: #### E RUR #### [facility] [address] [place] [address] Dr. Cortez Younger Protein [Mass/Vol] 7.4 g/dL Normal 6.4-8.2 [facility] Comment on above: Performed By: #### E RUR #### [facility] [address] [address] [address] Cortez Younger Sodium [Moles/Vol] 120 mmol/L Critically low 136-145 Th [facility] Comment on above: Performed By: #### E RUR #### [facility] [address] [address] [address] Cortez Younger Urea nitrogen [Mass/Vol] 7.0 mg/dL Normal 7.0-18.0 [facility] Comment on above: Performed By: #### E RUR #### [facility] [address] [address] [address] Cortez Younger Urea nitrogen/Creatinine [Mass ratio] 9.6 mg/mg Normal [facility] Comment on above: Performed By: #### E RUR #### [facility] [address] [address] [address] Cortez Younger SODIUM RANDOM URINEon 2022 Sodium (U) [Moles/Vol] 26 mmol/L Critically low 30-90 [facility] Comment on above: Performed By: #### N AU ####[facility] [address] [place], [place] [address]Dr. Cortez Younger ACETONE SERUMon 10-07-2022 ACETONE Negative Normal NEGATIVE [facility] Comment on above: Performed By: #### E RUR #### [facility] [address] [address] [address] Cortez Younger CBC AUTO DIFFon 10-07-2022 BASO # 0.1 103/ul Normal 0.0-0.1 [facility] Comment on above: Performed By: #### C BC ####[facility] [address] [place] [address]Dr. Cortez Younger Basophils/100 WBC (Bld) 0.8 % Normal 0.2-2.0 [facility] Comment on above: Performed By: #### C BC ####[facility] [address] [place] [address]Dr. Cortez Younger EO # 0.0 103/ul Normal 0.0-0.7 [facility] Comment on above: Performed By: #### C BC ####[facility] [address] [place] [address]Dr. Cortez Younger Eosinophils/100 WBC (Bld) 0.2 % Critically low 0.9-7.0 [facility] Comment on above: Performed By: #### C BC ####[facility] [address] [place], [place] [address]Dr. Cortez Younger Erythrocyte distribution width (RBC) [Ratio] 12.1 % Normal 11.0-15.0 [facility] Comment on above: Performed By: #### C BC ####[facility] [address] [place], [place] [address]Dr. Cortez Younger Hematocrit (Bld) [Volume fraction] 42.9 % Normal 42.0-54.0 [facility] Comment on above: Performed By: #### C BC ####[facility] [address] [place], [place] [address]Dr. Cortez Younger Hemoglobin (Bld) [Mass/Vol] 15.4 g/dL Normal 14.0-18.0 [facility] Comment on above: Performed By: #### C BC ####[facility] [address] [place], [place] [address]Dr. Cortez Younger IG # 0.04 10e3/ul Critically high 0.00-0.03 [facility] Comment on above: Performed By: #### C BC ####[facility] [address] [place], [place] [address]Dr. Cortez Younger IG % 0.4 % Normal 0.0-0.5 [facility] Comment on above: Performed By: #### C BC ####[facility] [address] [place], [place] [address]Dr. Cortez Younger LYMPH # 1.3 103/ul Normal 1.2-3.8 [facility] Comment on above: Performed By: #### C BC ####[facility] [address] [place] [id number]. Cortez Younger Lymphocytes/100 WBC (Bld) 13.7 % Critically low 20.5-60.0 [facility] Comment on above: Performed By: #### C BC ####[facility] [address] [place] [address]Dr. Cortez Aren MANUAL DIFF REQ NO Normal [facility] Comment on above: Performed By: #### C BC ####[facility] [address] [place] [address]Dr. Cortez Aren MCH (RBC) [Entitic mass] 31.4 pg Normal 25.9-34.0 [facility] Comment on above: Performed By: #### C BC ####[facility] [address] [place] [address]Dr. Cortez Aren MCHC (RBC) [Mass/Vol] 35.9 g/dL Critically high 29.9-35.2 [facility] Comment on above: Performed By: #### C BC ####[facility] [address] [place] [address]Dr. Eleanorvalerie Younger MCV (RBC) [Entitic vol] 87.4 fL Normal 80.0-94.0 [facility] Comment on above: Performed By: #### C BC ####[facility] [address] [place], [place] [address]Dr. Cortez Younger MONO # 0.4 103/ul Normal 0.3-0.8 [facility] Comment on above: Performed By: #### C BC ####[facility] [address] [place] [address]Dr. Eleanorvalerie Younger Monocytes/100 WBC (Bld) 3.6 % Normal 1.7-12.0 [facility] Comment on above: Performed By: #### C BC ####[facility] [address] [place] [address]Dr. Cortez Younger NEUT # 7.9 103/ul Critically high 1.4-6.5 [facility] Comment on above: Performed By: #### C BC ####[facility] [address] [place] [id number]. Eleanorvalerie Aren Neutrophils/100 WBC (Bld) 81.3 % Critically high 43.0-75.0 [facility] Comment on above: Performed By: #### C BC ####[facility] [address] [place] [id number]. Cortez Aren Platelet mean volume (Bld) [Entitic vol] 8.8 fL Critically low 9.5-13.5 [facility] Comment on above: Performed By: #### C BC ####[facility] [address] [place] [id number]. Cortez Younger PLT 371 103/ul Normal 150-450 [facility] Comment on above: Performed By: #### C BC ####[facility] [address] [place] [id number]. Cortez Younger RBC 4.91 106/ul Normal 4.70-6.10 [facility] Comment on above: Performed By: #### C BC ####[facility] [address] [place] [id number]. Cortez Younger WBC 9.8 103/ul Normal 4.0-11.0 [facility] Comment on above: Performed By: #### C BC ####[facility] [address] [place] [id number]. Cortez Aren CRPon 10-07-2022 CRP [Mass/Vol] mg/L Normal <=1.0 [facility] Comment on above: Performed By: #### L IPA, TSH, CRP, CMP ####[facility] [address] [place] [id number]. Cortez Younger ER URINE PROFILEon 3 Bilirubin Ql (U) Negative Normal NEGATIVE [facility] Comment on above: Performed By: #### E RUR #### [facility] [address] [id number] Cortez Younger Clarity (U) CLEAR Normal CLEAR [facility] Comment on above: Performed By: #### E RUR #### [facility] [address] [address] [address] Cortez Younger Color (U) LT. YELLOW Normal YELLOW [facility] Comment on above: Performed By: #### E RUR #### [facility] [address] [place] [address] Dr. Cortez PRESTON A micrscopic examina tion will be performed if indicated. Normal [facility] Comment on above: Performed By: #### E RUR #### [facility] [address] [place] [address] Dr. Cortez Younger Glucose Ql (U) Negative Normal NEGATIVE [facility] Comment on above: Performed By: #### E RUR #### [facility] [address] [place] [address] Dr. Cortez Younger Hemoglobin Ql (U) Negative Normal NEGATIVE [facility] Comment on above: Performed By: #### E RUR #### [facility] [address] [place] [address] Dr. Cortez Younger Ketones Ql (U) Negative Normal NEGATIVE [facility] Comment on above: Performed By: #### E RUR #### [facility] [address] [place] [address] Dr. Cortez Younger LEUKOCYTES Negative Normal NEGATIVE [facility] Comment on above: Performed By: #### E RUR #### [facility] [address] [place] [address] Dr. Cortez Younger Nitrite Ql (U) Negative Normal NEGATIVE [facility] Comment on above: Performed By: #### E RUR #### [facility] [address] [place] [address] Dr. Cortez Younger pH (U) 7.5 [pH] Normal 5-9 [facility] Comment on above: Performed By: #### E RUR #### [facility] [address] [place] [address] Dr. Cortez Younger SPEC GRAVITY <=1.005 Abnormal 1.005-<=1.025 [facility] Comment on above: Performed By: #### E RUR #### [facility] [address] [place] [address] Dr. Cortez Younger UA PROTEIN Negative Normal NEGATIVE/ TRACE [facility] Comment on above: Performed By: #### E RUR #### [facility] [address] [address] [address] Cortez Younger UR MICRO IND NOT INDICATED Normal [facility] Comment on above: Performed By: #### E RUR #### [facility] [address] [address] [address] Cortez Younger Urobilinogen Qn (U) 0.2 {Fidelia'U}/dL Normal 0.2 - 1. 0 [facility] Comment on above: Performed By: #### E RUR #### [facility] [address] [place] [address] Dr. Cortez Younger LACTATE/LACTIC ACIDon 2022 Lactate [Moles/Vol] 1.0 mmol/L Normal 0.4-2.0 [facility] Comment on above: Performed By: #### E RUR #### [facility] [address] [address] [address] Cortez Younger LIPASEon 10-07-2022 Lipase [Catalytic activity/Vol] 84.0 U/L Normal 73.0-393.0 [facility] Comment on above: Performed By: #### L IPA, TSH, CRP, CMP ####[facility] [address] [place] [address]DrFish Younger PROF 14(COMP METB)on 023 Albumin [Mass/Vol] 3.9 g/dL Normal 3.4-5.0 [facility] Comment on above: Performed By: #### L IPA, TSH, CRP, CMP ####[facility] [address] [place] [address]Dr. Cortez Younger Albumin/Globulin [Mass ratio] 1.7 {ratio} Normal [facility] Comment on above: Performed By: #### L IPA, TSH, CRP, CMP ####[facility] [address] [address]Dr. Cortez Younger ALP [Catalytic activity/Vol] 78 U/L Normal 46-116 [facility] Comment on above: Performed By: #### L IPA, TSH, CRP, CMP ####[facility] [address] [place] [address]Dr. Cortez Younger ALT [Catalytic activity/Vol] 28 U/L Normal 16-63 [facility] Comment on above: Performed By: #### L IPA, TSH, CRP, CMP ####[facility] [address] [place] [address]Dr. Cortez Younger Anion gap [Moles/Vol] 12.1 mmol/L Normal [facility] Comment on above: Performed By: #### L IPA, TSH, CRP, CMP ####[facility] [address] [place], [place] [address]Dr. Cortez Younger AST [Catalytic activity/Vol] 15 U/L Normal 15-37 [facility] Comment on above: Performed By: #### L IPA, TSH, CRP, CMP ####[facility] [address] [place], [place] [address]Dr. Cortez Younger Bilirubin [Mass/Vol] 0.5 mg/dL Normal 0.2-1.0 [facility] Comment on above: Performed By: #### L IPA, TSH, CRP, CMP ####[facility] [address] [place], [place] [address]Dr. Cortez Younger Calcium [Mass/Vol] 8.6 mg/dL Normal 8.5-10.1 [facility] Comment on above: Performed By: #### L IPA, TSH, CRP, CMP ####[facility] [address] [address]Dr. Cortez Younger Chloride [Moles/Vol] 100 mmol/L Normal 98-107 [facility] Comment on above: Performed By: #### L IPA, TSH, CRP, CMP ####[facility] [address] [place], [place] [address]Dr. Cortez Younger CO2 [Moles/Vol] 28.8 mmol/L Normal 21.0-32.0 [facility] Comment on above: Performed By: #### L IPA, TSH, CRP, CMP ####[facility] [address] [address]Dr. Cortez Younger Creatinine [Mass/Vol] 0.70 mg/dL Normal 0.70-1.30 [facility] Comment on above: Performed By: #### L IPA, TSH, CRP, CMP ####[facility] [address] [address]Dr. Cortez Younger EGFR-AF SAMOAN >60 Normal >=60 [facility] Comment on above: Performed By: #### L IPA, TSH, CRP, CMP ####[facility] [address] [address]Dr. Cortez Younger EGFR-NON AF SAMOAN >60 Normal >=60 [facility] Comment on above: Performed By: #### L IPA, TSH, CRP, CMP ####[facility] [address] [address]Dr. Cortez Younger Globulin (S) [Mass/Vol] 2.3 g/dL Normal [facility] Comment on above: Performed By: #### L IPA, TSH, CRP, CMP ####[facility] [address] [place], [place] [address]Dr. Cortez Younger Glucose [Mass/Vol] 111 mg/dL Critically high 74-106 [facility] Comment on above: Performed By: #### L IPA, TSH, CRP, CMP ####[facility] [address] [address]Dr. Cortez Younger Potassium [Moles/Vol] 3.9 mmol/L Normal 3.5-5.1 [facility] Comment on above: Performed By: #### L IPA, TSH, CRP, CMP ####[facility] [address] [place], [place] [address]Dr. Cortez Younger Protein [Mass/Vol] 6.2 g/dL Critically low 6.4-8.2 [facility] Comment on above: Performed By: #### L IPA, TSH, CRP, CMP ####[facility] [address] [place], [place] [address]Dr. Cortez Younger Sodium [Moles/Vol] 137 mmol/L Normal 136-145 [facility] Comment on above: Performed By: #### L IPA, TSH, CRP, CMP ####[facility] [address] [address]Dr. Cortez Younger Urea nitrogen [Mass/Vol] 6.0 mg/dL Critically low 7.0-18.0 [facility] Comment on above: Performed By: #### L IPA, TSH, CRP, CMP ####[facility] [address] [address]Dr. Cortez Younger Urea nitrogen/Creatinine [Mass ratio] 8.6 mg/mg Normal [facility] Comment on above: Performed By: #### L IPA, TSH, CRP, CMP ####[facility] [address] [address]Dr. Cortez Younger SED RATE [facility] 2022 SED RATE <1 Normal <=20 [facility] Comment on above: Performed By: #### C BC #### [facility] [address] [address] [address] Cortez Younger TSHon 10-07-2022 TSH 1.031 uIU/mL Normal 0.358-3.740 [facility] Comment on above: Performed By: #### L IPA, TSH, CRP, CMP ####[facility] [address] [id number]. Cortez Younger [facility]13 SARS-CoV-2 (COVID-19) RNA AXEL+probe Ql (Unsp spec) Not detected Normal NOT DETECTED [facility] Comment on above: Result Comment: When diagnostic testing is negative, the possibility of a false negative should be considered in the context of a patient's recent exposures and the presence of clinical signs and symptoms consistent with SARS-CoV-2. This test is not yet approved or cleared by the [place] FDA. When there are no FDA-approved or cleared tests available, and other criteria are met, FDA can make tests available under an emergency access mechanism called an Emergency Use Authorization (EUA). The EUA for this test is supported by the [place] of Health and Human Service's declaration that circumstances exist to justify the emergency use of in vitro diagnostics for the detection and/or diagnosis of the virus that causes COVID-19. This EUA will remain in effect for the duration of the COVID-19 declaration justifying emergency of IVDs, unless it is terminated or revoked by the FDA (after which the test may no longer be used). Performed By: #### C BC #### [facility] [address] [place] [address] Dr. Cortez Younger INFLUENZA A AND B [facility] 05-28 INFLUANEGH SEE BELOW Normal [facility] Comment on above: Result Comment: Nega tive for Flu A protein angiten. Infection due to Flu A cannot be ruled out. Flu A angiten in the sample may be below the detection limit of the test. Performed By: #### E RUR #### [facility] [address] [place] [address] Dr. Cortez Younger INFLUBNEG SEE BELOW Normal [facility] Comment on above: Result Comment: Nega tive for Flu B protein antigen. Infection due to Flu B cannot be ruled out. Flu B antigen in the sample may be below the detection limit of the test. Performed By: #### E RUR #### [facility] [address] [place] [address] Dr. Cortez Younger INFLUENZA A AG Negative Normal NEGATIVE SEE COMMENT [facility] Comment on above: Performed By: #### E RUR #### [facility] [address] [place] [address] Dr. Cortez Younger INFLUENZA B AG Negative Normal NEGATIVE SEE COMMENT [facility] Comment on above: Performed By: #### E RUR #### [facility] [address] [place] [address] Dr. Cortez Younger INTERNAL CONTROLS Within Normal Limits Normal Wi thin Normal Limits [facility] Comment on above: Performed By: #### E RUR #### [facility] [address] [place] [address] Dr. Cortez Younger XR CHEST 1 Von 05-28-2022 XR CHEST 1 V EXAM: XR CHEST 1 V HISTORY: COUGH COMPARISON: 11/24/2020 TECHNIQUE: Single view of the chest FINDINGS: Heart size normal. Opacity at the left medial cardiophrenic angle. No other focal consolidation. No pleural effusion. No pneumothorax. No vascular congestion. IMPRESSION: Right medial lung base opacity, hiatal hernia versus atelectasis/consolidatio n. Electronically authenticated by: KAIA SHEIKH Date: 2022-05-28 13:36 Normal [facility] PROF 14(COMP METB)on 022 Albumin [Mass/Vol] 3.9 g/dL Normal 3.4-5.0 [facility] Comment on above: Performed By: #### C MP #### [facility] [address] [place] [address] Dr. Cortez Younger Albumin/Globulin [Mass ratio] 1.4 {ratio} Normal [facility] Comment on above: Performed By: #### C MP #### [facility] [address] [place] [address] Dr. Cortez Younger ALP [Catalytic activity/Vol] 81 U/L Normal 46-116 [facility] Comment on above: Performed By: #### C MP #### [facility] [address] [place] [address] Dr. Cortez Younger ALT [Catalytic activity/Vol] 19 U/L Normal 16-63 [facility] Comment on above: Performed By: #### C MP #### [facility] [address] [place] [address] Dr. Cortez Younger Anion gap [Moles/Vol] 12.3 mmol/L Normal [facility] Comment on above: Performed By: #### C MP #### [facility] [address] [place] [address] Dr. Cortez Younger AST [Catalytic activity/Vol] 15 U/L Normal 15-37 [facility] Comment on above: Performed By: #### C MP #### [facility] [address] [place] [address] Dr. Cortez Younger Bilirubin [Mass/Vol] 0.3 mg/dL Normal 0.2-1.0 [facility] Comment on above: Performed By: #### C MP #### [facility] [address] [place], [place] [id number] Dr. Cortez Younger Calcium [Mass/Vol] 8.6 mg/dL Normal 8.5-10.1 [facility] Comment on above: Performed By: #### C MP #### [facility] [address] [place] [address] Dr. Cortez Younger Chloride [Moles/Vol] 101 mmol/L Normal 98-107 [facility] Comment on above: Performed By: #### C MP #### [facility] [address] [address] [address] Cortez Younger CO2 [Moles/Vol] 30.6 mmol/L Normal 21.0-32.0 [facility] Comment on above: Performed By: #### C MP #### [facility] [address] [place] [address] Dr. Cortez Younger Creatinine [Mass/Vol] 0.75 mg/dL Normal 0.70-1.30 [facility] Comment on above: Performed By: #### C MP #### [facility] [address] [place] [address] Dr. Cortez Younger EGFR-AF SAMOAN >60 Normal >=60 [facility] Comment on above: Performed By: #### C MP #### [facility] [address] [place] [address] Dr. Cortez Younger EGFR-NON AF SAMOAN >60 Normal >=60 [facility] Comment on above: Performed By: #### C MP #### [facility] [address] [place] [address] Dr. Cortez Younger Globulin (S) [Mass/Vol] 2.8 g/dL Normal [facility] Comment on above: Performed By: #### C MP #### [facility] [address] [place] [address] Dr. Cortez Younger Glucose [Mass/Vol] 98 mg/dL Normal 74-106 [facility] Comment on above: Performed By: #### C MP #### [facility] [address] [place] [address] Dr. Cortez Younger Potassium [Moles/Vol] 3.9 mmol/L Normal 3.5-5.1 [facility] Comment on above: Performed By: #### C MP #### [facility] [address] [place] [address] Dr. Cortez Younger Protein [Mass/Vol] 6.7 g/dL Normal 6.4-8.2 [facility] Comment on above: Performed By: #### C MP #### [facility] [address] [address] [address] Cortez Younger Sodium [Moles/Vol] 140 mmol/L Normal 136-145 [facility] Comment on above: Performed By: #### C MP #### [facility] [address] [place] [address] Dr. Cortez Younger Urea nitrogen [Mass/Vol] 5.0 mg/dL Critically low 7.0-18.0 [facility] Comment on above: Performed By: #### C MP #### [facility] [address] [place] [address] Dr. Cortez Younger Urea nitrogen/Creatinine [Mass ratio] 6.7 mg/mg Normal [facility] Comment on above: Performed By: #### C MP #### [facility] [address] [place] [address] Dr. Cortez Younger CBC AUTO DIFFon 01-18-2022 BASO # 0.0 103/ul Normal 0.0-0.1 [facility] Comment on above: Performed By: #### C BC #### [facility] [address] [place] [address] Dr. Cortez Younger Basophils/100 WBC (Bld) 0.1 % Critically low 0.2-2.0 [facility] Comment on above: Performed By: #### C BC #### [facility] [address] [place] [address] Dr. Cortez Younger EO # 0.0 103/ul Normal 0.0-0.7 [facility] Comment on above: Performed By: #### C BC #### [facility] [address] [place] [address] Dr. Cortez Younger Eosinophils/100 WBC (Bld) 0.0 % Critically low 0.9-7.0 [facility] Comment on above: Performed By: #### C BC #### [facility] [address] [place] [address] Dr. Cortez Younger Erythrocyte distribution width (RBC) [Ratio] 12.8 % Normal 11.0-15.0 [facility] Comment on above: Performed By: #### C BC #### [facility] [address] [place] [address] Dr. Cortez Younger Hematocrit (Bld) [Volume fraction] 42.7 % Normal 42.0-54.0 [facility] Comment on above: Performed By: #### C BC #### [facility] [address] [place] [address] Dr. Cortez Younger Hemoglobin (Bld) [Mass/Vol] 15.3 g/dL Normal 14.0-18.0 [facility] Comment on above: Performed By: #### C BC #### [facility] [address] [place] [address] Dr. Cortez Younger IG # 0.10 10e3/ul Critically high 0.00-0.03 [facility] Comment on above: Performed By: #### C BC #### [facility] [address] [place] [address] Dr. Cortez Younger IG % 0.7 % Critically high 0.0-0.5 [facility] Comment on above: Performed By: #### C BC #### [facility] [address] [place] [address] Dr. Cortez Younger LYMPH # 1.9 103/ul Normal 1.2-3.8 [facility] Comment on above: Performed By: #### C BC #### [facility] [address] [place] [address] Dr. Cortez Younger Lymphocytes/100 WBC (Bld) 13.5 % Critically low 20.5-60.0 [facility] Comment on above: Performed By: #### C BC #### [facility] [address] [place] [address] Dr. Cortez Younger MANUAL DIFF REQ NO Normal [facility] Comment on above: Performed By: #### C BC #### [facility] [address] [address] [address] Cortez Younger MCH (RBC) [Entitic mass] 31.4 pg Normal 25.9-34.0 [facility] Comment on above: Performed By: #### C BC #### [facility] [address] [address] [address] Cortez Younger MCHC (RBC) [Mass/Vol] 35.8 g/dL Critically high 29.9-35.2 [facility] Comment on above: Performed By: #### C BC #### [facility] [address] [address] [address] Cortez Younger MCV (RBC) [Entitic vol] 87.5 fL Normal 80.0-94.0 [facility] Comment on above: Performed By: #### C BC #### [facility] [address] [place] [address] Dr. Cortez Younger MONO # 0.8 103/ul Normal 0.3-0.8 [facility] Comment on above: Performed By: #### C BC #### [facility] [address] [place] [address] Dr. Cortez Younger Monocytes/100 WBC (Bld) 5.6 % Normal 1.7-12.0 [facility] Comment on above: Performed By: #### C BC #### [facility] [address] [address] [address] Cortez Younger NEUT # 11.4 103/ul Critically high 1.4-6.5 [facility] Comment on above: Performed By: #### C BC #### [facility] [address] [place] [address] Dr. Cortez Younger Neutrophils/100 WBC (Bld) 80.1 % Critically high 43.0-75.0 [facility] Comment on above: Performed By: #### C BC #### [facility] [address] [place] [address] Dr. Cortez Younger Platelet mean volume (Bld) [Entitic vol] 8.4 fL Critically low 9.5-13.5 [facility] Comment on above: Performed By: #### C BC #### [facility] [address] [address] [address] Cortez Younger PLT 352 103/ul Normal 150-450 [facility] Comment on above: Performed By: #### C BC #### [facility] [address] [place] [address] Dr. Cortez Younger RBC 4.88 106/ul Normal 4.70-6.10 [facility] Comment on above: Performed By: #### C BC #### [facility] [address] [address] [address] Cortez Younger WBC 14.2 103/ul Critically high 4.0-11.0 [facility] Comment on above: Performed By: #### C BC #### [facility] [address] [place] [address] Dr. Cortez Younger PROF 14(COMP METB)on 022 Albumin [Mass/Vol] 4.1 g/dL Normal 3.4-5.0 [facility] Comment on above: Performed By: #### C MP #### [facility] [address] [place] [address] Dr. Cortez Younger Albumin/Globulin [Mass ratio] 1.5 {ratio} Normal [facility] Comment on above: Performed By: #### C MP #### [facility] [address] [place] [address] Dr. Cortez Younger ALP [Catalytic activity/Vol] 77 U/L Normal 46-116 [facility] Comment on above: Performed By: #### C MP #### [facility] [address] [place] [address] Dr. Cortez Younger ALT [Catalytic activity/Vol] 19 U/L Normal 16-63 [facility] Comment on above: Performed By: #### C MP #### [facility] [address] [place] [address] Dr. Cortez Younger Anion gap [Moles/Vol] 10.6 mmol/L Normal [facility] Comment on above: Performed By: #### C MP #### [facility] [address] [address] [address] Cortez Younger AST [Catalytic activity/Vol] 8 U/L Critically low 15-37 [facility] Comment on above: Performed By: #### C MP #### [facility] [address] [address] [address] Cortez Younger Bilirubin [Mass/Vol] 0.3 mg/dL Normal 0.2-1.0 [facility] Comment on above: Performed By: #### C MP #### [facility] [address] [address] [address] Cortez Younger Calcium [Mass/Vol] 8.9 mg/dL Normal 8.5-10.1 [facility] Comment on above: Performed By: #### C MP #### [facility] [address] [address] [address] Cortez Younger Chloride [Moles/Vol] 91 mmol/L Critically low 98-107 [facility] Comment on above: Performed By: #### C MP #### [facility] [address] [address] [address] Cortez Younger CO2 [Moles/Vol] 30.1 mmol/L Normal 21.0-32.0 [facility] Comment on above: Performed By: #### C MP #### [facility] [address] [address] [address] Cortez Younger Creatinine [Mass/Vol] 0.88 mg/dL Normal 0.70-1.30 [facility] Comment on above: Performed By: #### C MP #### [facility] [address] [address] [address] Cortez Younger EGFR-AF SAMOAN >60 Normal >=60 [facility] Comment on above: Performed By: #### C MP #### [facility] [address] [address] [address] Cortez Younger EGFR-NON AF SAMOAN >60 Normal >=60 [facility] Comment on above: Performed By: #### C MP #### [facility] [address] [address] [address] Cortez Younger Globulin (S) [Mass/Vol] 2.8 g/dL Normal [facility] Comment on above: Performed By: #### C MP #### [facility] [address] [address] [address] Cortez Younger Glucose [Mass/Vol] 112 mg/dL Critically high 74-106 [facility] Comment on above: Performed By: #### C MP #### [facility] [address] [address] [address] Cortez Younger Potassium [Moles/Vol] 3.7 mmol/L Normal 3.5-5.1 [facility] Comment on above: Performed By: #### C MP #### [facility] [address] [address] [address] Cortez Younger Protein [Mass/Vol] 6.9 g/dL Normal 6.4-8.2 [facility] Comment on above: Performed By: #### C MP #### [facility] [address] [address] [address] Cortez Younger Sodium [Moles/Vol] 128 mmol/L Critically low 136-145 [facility] Comment on above: Performed By: #### C MP #### [facility] [address] [place] [address] Dr. Cortez Younger Urea nitrogen [Mass/Vol] 9.0 mg/dL Normal 7.0-18.0 [facility] Comment on above: Performed By: #### C MP #### [facility] [address] [address] [address] Cortez Younger Urea nitrogen/Creatinine [Mass ratio] 10.2 mg/mg Normal [facility] Comment on above: Performed By: #### C MP #### [facility] [address] [address] [address] Cortez Younger SED RATE NEW HAVENERGREN 2021 SED RATE <1 Normal <=20 [facility] Comment on above: Performed By: #### S EDR ####[facility] [address] [address]Dr. Cortez Younger UA RANDOMon 01-18-2022 Bilirubin Ql (U) Negative Normal NEGATIVE [facility] Comment on above: Performed By: #### E RUR #### [facility] [address] [place] [address] Dr. Cortez Younger Clarity (U) CLEAR Normal CLEAR [facility] Comment on above: Performed By: #### E RUR #### [facility] [address] [place] [address] Dr. Cortez Younger Color (U) LT. YELLOW Normal YELLOW [facility] Comment on above: Performed By: #### E RUR #### [facility] [address] [place] [address] Dr. Cortez Younger Glucose Ql (U) Negative Normal NEGATIVE [facility] Comment on above: Performed By: #### E RUR #### [facility] [address] [place] [address] Dr. Cortez Younger Hemoglobin Ql (U) TRACE-LYSED Abnormal NEGATIVE [facility] Comment on above: Performed By: #### E RUR #### [facility] [address] [place] [address] Dr. Cortez Younger Ketones Ql (U) Negative Normal NEGATIVE [facility] Comment on above: Performed By: #### E RUR #### [facility] [address] [place] [address] Dr. Cortez Younger LEUKOCYTES TRACE Abnormal NEGATIVE [facility] Comment on above: Performed By: #### E RUR #### [facility] [address] [place] [address] Dr. Cortez Younger Nitrite Ql (U) Negative Normal NEGATIVE [facility] Comment on above: Performed By: #### E RUR #### [facility] [address] [place] [address] Dr. Cortez Younger pH (U) 6.5 [pH] Normal 5-9 [facility] Comment on above: Performed By: #### E RUR #### [facility] [address] [place] [address] Dr. Cortez Younger SPEC GRAVITY <=1.005 Abnormal 1.005-<=1.025 [facility] Comment on above: Performed By: #### E RUR #### [facility] [address] [address] [address] Cortez Younger UA PROTEIN Negative Normal NEGATIVE/ TRACE [facility] Comment on above: Performed By: #### E RUR #### [facility] [address] [address] [address] Cortez Younger Urobilinogen Qn (U) 0.2 {Fidelia'U}/dL Normal 0.2 - 1. 0 [facility] Comment on above: Performed By: #### E RUR #### [facility] [address] [address] [address] Cortez Younger MRI CSPINE WO W CONon 2021 MRI CSPINE WO W CON EXAMINATION: MRI CSP INE WO W CON HISTORY: Multiple sclerosis COMPARISON: MRI cervical spine 07/31/2020 TECHNIQUE: A variety of imaging planes and parameters were utilized for visualization of suspected pathology prior to and after ml intravenous Dotarem injection. FINDINGS: CRANIOCERVICAL AREA: Normal foramen magnum with no Chiari malformation. PARASPINAL AREA: Normal with no visible mass. BONES: No fracture, pars defect, or osseous lesion. CORD: Normal caliber, contour, and signal intensity. CERVICAL DISC LEVELS: C2-C3: Early degenerative disc disease is present without focal protrusion or neural impingement. C3-C4: Mild right foramen narrowing secondary to uncovertebral joint spurring. C4-C5: Moderate foramen bilaterally and mild central canal narrowing. Mild diffuse disc bulging with mild disc at reduction. Minimal degenerative facet arthropathy. C5-C6: Mild central canal and moderate-marked bilateral foramen narrowing. Uncovertebral joint spurring, mild diffuse disc bulging and disc at reduction, and minimal degenerative facet arthropathy. C6-C7: Early degenerative disc disease is present without focal protrusion or neural impingement. C7-T1:. No significant disc/facet abnormality, spinal stenosis, or foraminal stenosis. IMPRESSION: 1. No spinal cord lesions to suggest demyelinating process. 2. C5-C6 moderate marked bilateral foramen narrowing; not appreciably changed. 3. C4-C5 moderate bilateral foramen narrowing; not appreciably changed. Electronically authenticated by: VERN LU Date: 2022-01-17 16:24 Normal [facility] MRI TSPINE WO W CONon 2021 MRI TSPINE WO W CON EXAMINATION: MRI TSP INE WO W CON HISTORY: Multiple sclerosis COMPARISON: MRI thoracic spine 07/31/2020 TECHNIQUE: Axial T1 and T2; Sagittal T1, T2, and STIR sequences. Images were performed without and with Dotarem contrast. FINDINGS: CORD: Normal caliber, contour, and signal intensity. BONES: No fracture, pars defect, or osseous lesion. DISCS: No significant disc/facet abnormality, spinal stenosis, or foraminal stenosis. PARASPINAL AREA: No visible mass. OTHER: Negative. No abnormal contrast enhancement. IMPRESSION: 1. No abnormal signal or enhancement within the spinal cord to suggest a demyelinating process. Electronically authenticated by: VERN LU Date: 2022-01-17 16:29 Normal [facility] MRI BRAIN WO W CONon 022 MRI BRAIN WO W CON EXAMINATION: MRI BRA IN WO W CON HISTORY: Multiple sclerosis follow-up COMPARISON: MRI brain 04/01/2021 TECHNIQUE: A variety of imaging planes and parameters were utilized for visualization of suspected pathology. Images were performed without and with ml Dotarem contrast. FINDINGS: CEREBRUM: Area of restricted diffusion within the deep white matter of the right cerebrum deep to the precentral gyrus near the vertex. Slightly smaller area of restricted diffusion within the deep white matter adjacent the posterior body of the left lateral ventricle. Several T2 hyperintensities within the periventricular deep white matter consistent with a mildly process. A lesion within the posterior medial right frontal lobe cephalad to the body of the lateral ventricle has increased slightly in size, 8 mm in diameter versus 6 mm in diameter on prior study No edema, hemorrhage, mass, or inappropriate atrophy. CEREBELLUM: No edema, hemorrhage, mass, acute infarction, or inappropriate atrophy. BRAINSTEM: No edema, hemorrhage, mass, acute infarction, or inappropriate atrophy. CSF SPACES: Ventricles, cisterns, and sulci are appropriate for age. No hydrocephalus, subarachnoid hemorrhage, or mass. SKULL: No mass or other significant visible lesion. SINUSES: Limited views demonstrate no significant mucosal thickening or fluid. ORBITS: Limited views are unremarkable. OTHER: No abnormal meningeal or parenchymal enhancement. IMPRESSION: 1. Interval increase in size of the lesion within the supraventricular deep white matter of the posterior right frontal lobe. This area also demonstrates restricted diffusion suggestive of active demyelination, however, there is no enhancement. A second lesion within the supraventricular deep white matter of the posterior left frontal lobe demonstrates restricted diffusion which is suggestive of active demyelination, however, there has been no appreciable change in size and there is no enhancement. 2. Overall stable appearance of the remaining multiple deep white matter lesions which are most compatible with a demyelinating process. Electronically authenticated by: VERN LU Date: 2022-01-03 08:03 Normal [facility] Patient Educationon 12-25-19 Patient Education Oncology Prostate-Specific Antigen Test Why am I having this test? The prostate-specific antigen (PSA) test is a screening test for prostate cancer. It can identify early signs of prostate cancer, which may allow for more effective treatment. Your health care provider may recommend that you have a PSA test starting at age 40 or that you have one earlier or later, depending on your risk factors for prostate cancer. You may also have a PSA test: ? To monitor treatment of prostate cancer. ? To check whether prostate cancer has returned after treatment. ? If you have signs of other conditions that can affect PSA levels, such as: ? An enlarged prostate that is not caused by cancer (benign prostatic hyperplasia, BPH). This condition is very common in older men. ? A prostate infection. What is being tested? This test measures the amount of PSA in your blood. PSA is a protein that is made in the prostate. The prostate naturally produces more PSA as you age, but very high levels may be a sign of a medical condition. What kind of sample is taken? A blood sample is required for this test. It is usually collected by inserting a needle into a blood vessel or by sticking a finger with a small needle. Blood for this test should be drawn before having an exam of the prostate. How do I prepare for this test? Do not ejaculate starting 24 hours before your test, or as long as told by your health care provider. Tell a health care provider about: ? Any allergies you have. ? All medicines you are taking, including vitamins, herbs, eye drops, creams, and qfso-otj-zblnmaq medicines. This also includes: ? Medicines to assist with hair growth, such as finasteride. ? Any recent exposure to a medicine called diethylstilbestrol. ? Any blood disorders you have. ? Any recent procedures you have had, especially any procedures involving the prostate or rectum. ? Any medical conditions you have. ? Any recent urinary tract infections (UTIs) you have had. How are the results reported? Your test results will be reported as a value that indicates how much PSA is in your blood. This will be given as nanograms of PSA per milliliter of blood (ng/mL). Your health care provider will compare your results to normal ranges that were established after testing a large group of people (reference ranges). Reference ranges may vary among labs and hospitals. PSA levels vary from person to person and generally increase with age. Because of this variation, there is no single PSA value that is considered normal for everyone. Instead, PSA reference ranges are used to describe whether your PSA levels are considered low or high (elevated). Common reference ranges are: ? Low: 0?2.5 ng/mL. ? Slightly to moderately elevated: 2.6?10.0 ng/mL. ? Moderately elevated: 10.0?19.9 ng/mL. ? Significantly elevated: 20 ng/mL or greater. Sometimes, the test results may report that a condition is present when it is not present (false-positive result). What do the results mean? A test result that is higher than 4 ng/mL may mean that you are at an increased risk for prostate cancer. However, a PSA test by itself is not enough to diagnose prostate cancer. High PSA levels may also be caused by the natural aging process, prostate infection, or BPH. PSA screening cannot tell you if your PSA is high due to cancer or a different cause. A prostate biopsy is the only way to diagnose prostate cancer. A risk of having the PSA test is diagnosing and treating prostate cancer that would never have caused any symptoms or problems (overdiagnosis and overtreatment). Talk with your health care provider about what your results mean. Questions to ask your health care provider Ask your health care provider, or the department that is doing the test: ? When will my results be ready? ? How will I get my results? ? What are my treatment options? ? What other tests do I need? ? What are my next steps? Summary ? The prostate-specific antigen (PSA) test is a screening test for prostate cancer. ? Your health care provider may recommend that you have a PSA test starting at age 40 or that you have one earlier or later, depending on your risk factors for prostate cancer. ? A test result that is higher than 4 ng/mL may mean that you are at an increased risk for prostate cancer. However, elevated levels can be caused by a number of conditions other than prostate cancer. ? Talk with your health care provider about what your results mean. This information is not intended to replace advice given to you by your health care provider. Make sure you discuss any questions you have with your health care provider. Document Released: 08/01/2005 Document Revised: 06/11/2018 Document Reviewed: 04/05/2018 [employer] Patient Education ? 2019 [employer]. [facility] Urology Office/Clinic Noteon 12-24-2021 Urology Office/Clinic Note Chief Complaint Patient in office for f/u to UroLift on 12/05/21 HPI Staff Patient in office for f/u to UroLift done on 12/05/2021. Patient states he has been doing well since the procedure. States he has noticed a huge relief since having the procedure done. Denies any issues or concerns at this time. Dysuria: denies Incomplete bladder emptying: denies Hematuria: denies Frequency: denies Urgency: denies Nocturia: denies Stream: steady Leaking: denies Post void dripping: denies Wearing pads/ Depends: denies Urge incontinence: denies Stress incontinence: denies Incontinence without Sensory Awareness: denies Abdominal pain: denies Flank pain: denies Sexual complaints: _ History of Present Illness reviewed medical history, OP notes, UA no associated fever, chills, pain or blood. Review of Systems ROS - Provider Constitutional: denies weight loss, denies hot flashes. Eyes: denies eye problems. Gastrointestinal: denies nausea, denies vomiting. Cardiovascular: denies chest pain or angina. Integumentary: no dryness Musculoskeletal: denies musculoskeletal symptoms. ENMT: denies otolaryngeal symptoms. Respiratory: no shortness of breath. Heme/Lymph: denies easy bleeding tendency, denies easy bruising tendency. Psychiatric: no confusion, no anxiety. Genitourinary: denies dysuria, denies hematuria, denies discharge, denies urinary frequency, denies urinary hesitancy, denies nocturia, denies incontinence, denies genital sores, denies decreased libido, and denies erectile dysfunction. Physical Exam Vitals & Measurements HR: 68(Peripheral) BP: 132/76 General Appearance: alert, no distress, well nourished, well developed male. Flank Pain: none. Bladder: nonpalpable. Assessment/Plan This patient is doing quite well post UroLift implants. He is voiding with a good stream and good control. He has no dysuria, urgency, hematuria or urgency incontinence. He is no longer going to take tamsulosin. Discussed discontinuing this medication and he will contact our office if he has any problems once that is completed. I will plan to see him back in the office in 6 months with a PVR. Urinalysis today was unremarkable. There is a trace amount of blood which would be expected following a UroLift implant. 1. BPH with obstruction/lower urinary tract symptoms (N40.1: Benign prostatic hyperplasia with lower urinary tract symptoms) s/p UroLift done 12-05-21. Patient is very pleased with his symptoms, denies any urinary complaints at this time. Patient has good urinary stream and he feels he's emptying well. Patient denies any dysuria, or incontinence. Patient will return in 6 months with PVR. Will D/C flomax therapy. Patient will monitor his urinary symptoms. 2. Asymptomatic microscopic hematuria (R31.21: Asymptomatic microscopic hematuria) Cysto done 10/14/21. UA today shows TRACE. Ordered: Urnls Dip Stick Auto w/o Microscopy POC 72710 3. Elevated PSA (R97.20: Elevated prostate specific antigen [PSA]) Most recent PSA done 08/13/21 5.24 Ordered: Urnls Dip Stick Auto w/o Microscopy POC 45164 Other obstructive and reflux uropathy (N13.8: Other obstructive and reflux uropathy) Follow-up With When Contact Information Star Manley MD, LION Borja In 6 months [facility] [address] [place] [address]- Additional Instructions: w/ PVR Patient Education Prostate-Specific Antigen Test Lynda Finley, personally scribed for Dr. Graves on 12/24/2021 10:47:38. . Documentation recorded by the scribe, Lynda Mcrae, accurately reflects the services(s) I performed and decisions made by me. Authenticated by Gustavo Graves MD on [ Current Date and Time ]. Problem List/Past Medical History Ongoing Asthma Asymptomatic microscopic hematuria BPH with obstruction/lower urinary tract symptoms COPD (chronic obstructive pulmonary disease) Depression Dysuria Elevated PSA Epididymal mass Family history of bladder cancer Feeling of incomplete bladder emptying Former smoker Hyperlipidemia Nocturia Post-void dribbling Urge incontinence Urinary frequency Weak urinary stream Historical No qualifying data Procedure/Surgical History Cystoscopy (10/14/2021), Cystoscopy (09/13/2019), Cholecystectomy. Medications amitriptyline 50 mg Tab, 50 mg= 1 tab(s), Oral, Once a day (at bedtime) baclofen 10 mg Tab, 5 mg= 0.5 tab(s), Oral, TID Cipro 500 mg Tab, 500 mg= 1 tab(s), Oral, BID Cymbalta, Oral DHEA, Oral, Daily, Not taking diclofenac sodium 50 mg Oral EC Tab, Oral, TID Flomax 0.4 mg Cap, 0.4 mg= 1 cap(s), Oral, Daily hydrocodone-ibuprofen 7.5 mg-200 mg Oral Tab, 1 tab(s), Oral, TID, PRN losartan 100 mg Tab, 100 mg= 1 tab(s), Oral, Daily Lyrica 200 mg Cap, 200 mg= 1 cap(s), Oral, TID melatonin, Once a day (at bedtime) metoprolol 50 mg ER Tab, 50 mg= 1 tab(s), Or (more content not included)... Normal [facility] Comment on above: Result Comment: Elec tronically Signed By: Star Manley MD, Gustavo [place]\.br\Date and Time Signed: 12/24/21 10:52 EDT\.br\Electronically Co-Signed By: Lynda Ortega\.br\Date and Time Co-Signed: 12/24/21 10:47 EDT Lab Reportson 12-16-2021 Lab Reports [id number]: 127 Normal [facility] Lab Reports [id number]#[id number]: 127 Normal [facility] CULTURE URINEon 12-12-2021 CULTURE URINE Culture Observations : No growth Normal [facility] Comment on above: Performed By: #### U RCX ####[facility] [id number] [address]Dr. Cortez Younger UA RANDOMon 12-12-2021 Bilirubin Ql (U) Negative Normal NEGATIVE [facility] Comment on above: Performed By: #### U A #### [facility] [address] [address] [address] Cortez Younger Clarity (U) CLEAR Normal CLEAR [facility] Comment on above: Performed By: #### U A #### [facility] [address] [place] [address] Dr. Cortez Younger Color (U) LT. YELLOW Normal YELLOW [facility] Comment on above: Performed By: #### U A #### [facility] [address] [place] [address] Dr. Cortez Younger Glucose Ql (U) Negative Normal NEGATIVE [facility] Comment on above: Performed By: #### U A #### [facility] [address] [place] [address] Dr. Cortez Younger Hemoglobin Ql (U) LARGE Abnormal NEGATIVE [facility] Comment on above: Performed By: #### U A #### [facility] [address] [place] [address] Dr. Cortez Younger Ketones Ql (U) Negative Normal NEGATIVE [facility] Comment on above: Performed By: #### U A #### [facility] [address] [place] [address] Dr. Cortez Younger LEUKOCYTES Negative Normal NEGATIVE [facility] Comment on above: Performed By: #### U A #### [facility] [address] [address] [address] Cortez Younger Nitrite Ql (U) Negative Normal NEGATIVE [facility] Comment on above: Performed By: #### U A #### [facility] [address] [place] [address] Dr. Cortez Younger pH (U) 7.0 [pH] Normal 5-9 [facility] Comment on above: Performed By: #### U A #### [facility] [id number] Cortez Younger SPEC GRAVITY 1.010 Normal 1.005-<=1.025 [facility] Comment on above: Performed By: #### U A #### [facility] [id number] Cortez Younger UA PROTEIN Negative Normal NEGATIVE/ TRACE [facility] Comment on above: Performed By: #### U A #### [facility] [id number] Cortez Younger Urobilinogen Qn (U) 0.2 {Fidelia'U}/dL Normal 0.2 - 1. 0 [facility] Comment on above: Performed By: #### U A #### [facility] [address] [address] [address] Cortez Younger Coding Summary.on 12-06-2021 Coding Summary. CD:[id number] Gh0b Ww+PGhlYWQ+GW3FGXPaM06rn QQrxQ5MT4xEPA4EVKRTZHMXE R7ECM1sxWM9COtuH6VwluWf WlxymZJzVT43ELy0UFG5qAck XCzgiH6jmGAlD0o6SgGlRO77 oQ46FJrtTLTkHkB9McHfujfa bWFy X5vyIeAawPXkJpc+PHRhYmxl IHdpZHRoPScxMDAlJyBzdHls BQ7aYy8iRIHhPIJaqRfdlTLh OiBj v4yrGJAsWWbxBB3ifNvnN2Zr kRL5ZPFrn8h7Ag68tXZ+PHRk USR6aJkuCKmnm275SzZar9cw IDM3 aSAcUJswXJN0K30rp5M3BWEl MOXrECV8oIV4uY5kjKcxuxrt H6KweCJbWrH8FWR4sGLplP9y bGln qmpsoH8hUkd+V07EEE1FWTRJ RK9SWtm8A5ChFpjvgZA+PC90 XZRcYC24xOKswXTch1lrhTr4 JzEw SLDnMNR6qMwiROoqn2RgEDTq D61lgEFkx9C4KPNarJtmbZMo EoJurGU9wV9aIEerouumq3oe dzsn Zyzpv5oewc76kI99D98sHTgn KSRsJKH4EBAlNLDclTqwdd8l aI7kRl0+BBlrx4ems4ayzTf7 IjIw NFThumMvjXcpEEY8t1UdKd14 Z6ImnZhmi0GsVhx8dd38rSUx v4S0dRT0YNeqLOUvaM9aNVbz ZnQ6 PUJgOwStlY25iPKdNHzsHo7w cOqazCuvXF6nKYIdwynwSUHs rD0lCGDjgLDfrUuaAH4gHKUu bjtm d507VmJiHXH9FVCqpFWyP4Pb eJ2zUkPrUQEeJSIpP3XzvSSe ONjlY781FTmeSxD8KDMiowKn Y2Fs WDNkcQyqLxT4c8W2Hl5Fr7Zr eoigHHI0PJzlCVZ5BgU5ShUw TbW3G4XwJzn7CYThuJudGH6q J3Bh WIBnyjqjgwqumTZ4NOMyCKWs xF19nLMmTVydWc6ds8O5c241 VOMpAPGxxR84Oq3apEhhMGGk dCBU jW3chooht4earivyRdFyGHJu AMo5XJa4AXTdeKttDcVnJMW8 RyW2NJH2bTPtaM0yrEoampeg dG9w Oyc+G17vdS6xBRJ2BXT5dnps JRXyplVqKX38PL41M7FyUknj dGFibGU+UIAwwiLoyExqLJ4q YmFj o1ulc7HeRIuaC7QqFYGtZDkn Yea9WTKwADZ8rLA3kC4sJGEl FNwhk5L2bEG2N9CvsaGrmu6b b2xs CUPjHPyhA71csNJgk6N7DQRi qAE0DTWjsEpqKeVktK42Vko+ AXZfnLebm3OlNyiga7krq2jh dGg9 MxMgCRNpovOwsTpyVBG5a9Un Oz39W25oCJydDANzPQLvSRDd PFMvfZirjx1lqM6pUh4+PGNv bCB3 qUW3pA3oQUOcYxY4ZKmxU788 PyWplJUtSjebu3gvo6dgpLp6 GkDmGPWvueQlgJjnTAE3l5Nm Lz48 G20sOQymKZIrADUzCDKhEDCu jAscrs2ciG1uHr7+MP6jb5hd tj48oA43jWA+BVWwCFJ5jLyj PSdw WFBgcH4rCYamUhM2IYGzAwXu hQ02uCXzLVodTd2ajKaymOww VW5oZYHmrhcfe458JoDpe8pp IDEw rTNeGQwtUVH5R79qc8B8ERQd ZHMpVIQ8lPY6zN8cwFeibpek bGVmdDsgdmVydGljYWwtYWxp Z246 IHRvcDsnPlBhdGllbnQgTmFt KEe8H3GyFyy9TEXwfXnfIF5p fHNmVQzcJe7hiKlntSjlTZ2n NTBp jrzcz971XqSth5psAXMxqOOv EHlrUJV4N59ne6N4OQIhVMNk FVS3jAD8iY6qyIkvipiyeHUy dDsg kxNyqGsqGUecYOexQ735VIBl mHqeEpYejuCyFEXcwBE2AR46 WL29yWKoi9U2sBY4J1SfAWVu bmct mvcrzRY1WWNvUCKstX32Sa0z uGefNz4lAXGgIHB4RZRdsDCu W0IfvG1xSfZbDONfXJVnH2Hg eHQt ZRflO532VBbiHvJ3JDBodnGg Q6BnRTPbiKzpZgP9v6O6Ry1E Q7I3KO29ON33kPWnp0B8gGD6 J3Bh WBTyefzsjruzxSG1UGOvKOBz xZ89Ss5pfHtvGl9sQWJjFYH2 RDOwrFHsO4ZzgW7kTqAgMRWr MDAw D6HuoSDkLJtvV967SVfcQjT4 EBQtxdJmR4IlMRGiiIthYyZ5 a9Y3Kx3VGKo4WO01TR81sBBn c3R5 hFB2Q7UeAIMbpcgeihsrdQQ3 ODKuNZBjfZ75Gf0hlShnFx9g RYVlNQE6VJIfsIOhT8EdjV9g OiAj DETaYJFzR2WlyMRkRIniW245 UBpjZtS4LDZakqVmA6FnDBXa cPgpWhR2x6K1Mi3ETSMsZZ28 IFR5 gWY2LM21ZU09K9YwDfywkJBj bGU+PHRhYmxlIHdpZHRoPScx LVEjHdBhfLtoDM2oRj5fVKMw LWNv qBdckUAiZoDoc0waEWCaJKum IR3vzLjpT4OdlOG9SHVcc9l4 Ew85Q77zK0TbcWF+PGNvbCB3 aWR0 wA4nHsFgZnY5RAuaD322LfDr aHMcTarfc1xdr4ypgTc0IuS9 ZLKawbWauMtfQNI2n5WnDn32 Y29s IHdpZHRoPSIxNSUiIHZhbGln ty6crP4nTi7+GJRwjZJ6oMJ7 uD3iQjUkNtV4IVtbI002FuZk cCIv Geeya2vvv7wzxAw0ZcGhXRYo ryIucSdiFJH9e4PiBz00R7Ea lWcfz8CbSnn9ug49nKRme0A4 bGU9 O7GgNVFxddfgnLEkjHzhEX0k XJAkvbmpEXRhxS7zXKQaV6c7 OyNnQnU7AHckJ4LdbkS6VBMp cHQg EPtnNIP5K93th5M1QNPkFUSj MXV1oVM5lX2rjPadxzwypUKf xGujyoLtpBuzVJwkZTbmZ904 IHRv uDkwSCPoeG4oFVXwmLQwwDbg YZ6dSVMhbgxkJjJWMySQB9eA KRskL2FZFB4sFPlkwNB+PHRk IHN0 tOmkHRjeHBTqfN4yVRZaF2a3 EuTjMtR8MVxfA4FwLCAesjwv Sf65sL7uPrTaMmZ6CRkpA2Qz bnQ6 SHJdqHDqEUucAWL9H54lc5M9 SSKvVEXtOUM7cLM1eP6nkDax bjogbGVmdDsgdmVydGljYWwt YWxp I062QUMccVuaFfT6HmDiAdS1 Lgw8G4MzXwa2DCLlqYdjTT2t wJTdRIoqOy1efKauqAbwCH0y NTBp htdaIDAqsQ8pMYVegYGsxVpe BM5uMEHrzxfjm055IzGkNQR8 UWVybNLcL7NyiX5xSkUrDJYi MDAw M7BcmKPvQHwsX835UDbuXkK6 NHGmmuLtX8OsUWYazEoaIqD5 c4Z3Lr85VsLUKVHuonoheLE+ PHRk DNY0yQckNEmxIZFnpU9oMQIi A6a0HbEmBdA3TBqnO4TrNYPu rbgjPt68jA8nFtPnNlR7ZEnz O2Zv cmA5LHZfhHMjYIiyHAH4V76t r8V1JFFhYJJlMQN4lNL2rM9g bGlnbjogbGVmdDsgdmVydGlj YWwt RVvqO223QEYrlCbqPx6yhWD3 P5DhBnr6NYFgkRxwFY5wgMYe EVgoLe2wvAdprBdtBV6mURBy bjtw VTUyeP5fDKAmiMQtdLuxHG7i VNKnhsgsy482WqLkFEA8ZQKr oOUgA9SxrN8aCyEzTPAkEBQa O3Rl hYPkENhgG323ZAqrHyL0WECd vpDcP3QaXYSwwYugUrA5r6C0 Kc4MiZVrGLInII99OK41SJ24 L3Ry PjwvdGFibGU+PHRhYmxlIHdp YAYnAZpmWKTkXcGgtJsfMI5h St3fWTMtFARuiSfdsGFtVrWc b2xs HCRoBTdhRN1glSaeQ9ZiqAR6 NXTxg6q5Fa62Q00zD3XbcPN+ NNKuaLF7hIJ1qM9yAmOsFmU1 YWxp Z686YmRghUJqSkkeq4whx1ub uTj6ImLsFSLqlmEegErhOYE8 d8TmPb61L90yVMnmIBDqQGZq MCUi YJNzgGygva7baH3hWh4+PGNv aUQ0qLF8kU2mKfLpNtQ5WJxy B441ZyCvoLEtWpbsY18bC1Gx dXA+ FEUiJfj3EZHtkOhlNR9hzFNt QSlfEl0nFES7QbDuIuLyRScv G3JvNYWrpqcvfwqeqII8UIYh MDUw tR40Rt5blBkgYu6xYEClKTN8 TKBbxSTfQ3OzmE8kIaVnJNOu GVQxG3GxlHOaKRnnB719BJjh ZnQ7 IDEbscRbR9TzJDOpfAcpEjP5 a4W3Hw0ZqDypaEMmGN9aRyYj RWl2O6CaDvl4SFChaFcuDT1p cGFk THslCf5tqAryqAtzGJ1kHNCj iulzo385UzRhm8auQZLhwHWe IHvqEVZ5A43sm1M8TLUnETZu MDA7 rRJ2yE7wwYqplcivxPXhzXym ltYydOjbHGrqWWauL034LJEh kKhzYqENRaa9C6HfPzs6MVAk dHls GD5cbQTgPCxwRp3qqKfqhPjf YU1dMWUxqqcrh252GqLxq2pf CHMbiQXmEOqvVJQ5G94dz7G8 ICMw ZRDuZGE8nME2uY4hnRwmehdq bGVmdDsgdmVydGljYWwtYWxp P414IYNyeVfzFz0SIeu8V4Bq Pjx0 QNNacLlyXC5yeHWhUBuyQe5z dNgyqZdbBE1yJSEtphrkm441 XwLbs5cdBZUcvKXfUNipUFJ1 Y29s e0L8BNOqPUUtVOA9fXN5jD9m bGlnbjogbGVmdDsgdmVydGlj PXojUOarC290TYCtzBwgKbFl eWVy OjwvdGQ+FW29kr70V7DdHsle Wwj0HQIpUOP4tII3rA8uDNTr LPaqm5B6uMR1V8CjtiTtyj7a b2xs YXBz (more content not included)... [facility] Consent for Procedure/Surger yon 12-05-2021 Consent for Procedure/Surgery [id number] :127 [facility] Consent for Treatmenton 05-2 Consent for Treatment [id number]#1.00CD: 127 [facility] IntraOperative Documentson 0 12-05-2021 IntraOperative Documents [id number] :127 [facility] Main OR Intraoperative Recor don 12-05-2021 Main OR Intraoperative Record IntraOp Document Type FTURO Summary Primary Physician: Star Manley MD, Gustavo [place] Finalized Date/Time: 12/05/21 13:57:51 Pt. Name: HARISH MCKENNA /Sex: 1970 Male Med Rec #: [id number] Physician: Gustavo Graves Jr., MD Financial #: [id number] Pt. Type: O Room/Bed: / Admit/Disch: 12/05/21 11:48:14 - Institution: Case Times FTURO Entry 1 Patient Times In Room 12/05/21 13:23:00 Out Room 12/05/21 13:57:00 Procedure Times Start 12/05/21 13:40:00 Stop 12/05/21 13:53:00 Anesthesia Times Last Modified By: Veena Levin RN 12/05/21 13:57:47 Case Attendance FTURO Entry 1 Entry 2 Entry 3 Case Attendee Gustavo Graves Jr., MD [employer]IROPRACTIC TEACHER, Veena Brower CHIROPRACTIC TEACHER, Ni Aguirre Role Performed Surgeon - Primary Scrub - Primary Scrub - Primary Time In 12/05/21 13:23:00 12/05/21 13:23:00 12/05/21 13:23:00 Time Out 12/05/21 13:57:00 12/05/21 13:57:00 12/05/21 13:57:00 Procedure CYSTOSCOPY LOCAL CYSTOSCOPY LOCAL CYSTOSCOPY LOCAL UROLIFT(.) UROLIFT(.) UROLIFT(.) Comments PRECEPTING ORIENTING Last Modified By: Veena Levin RN, RN, Kimberly Y Barbee RN, Kimberly Y 12/05/21 13:57:48 12/05/21 13:57:48 12/05/21 13:57:48 Entry 4 Case Attendee Veena Levin RN Role Performed Ibm Bpm Architect - Primary Time In 12/05/21 13:23:00 Time Out 12/05/21 13:57:00 Procedure CYSTOSCOPY LOCAL UROLIFT(.) Comments Last Modified By: Veena Levin RN 12/05/21 13:57:48 Surgical Procedures FTURO Entry 1 Procedure Description Procedure CYSTOSCOPY LOCAL UROLIFT Modifiers . Surgeon Description CYSTOSCOPY LOCAL UROLIFT X 4 IMPLANTS; URETHRAL DILATION Primary Procedure Yes Primary Surgeon Gustavo Graves Jr., MD Start 12/05/21 13:40:00 Stop 12/05/21 13:53:00 Anesthesia Type Local Surgical Service Urology Wound Class 2 - Clean-Contaminated Last Modified By: Veena Levin RN 12/05/21 13:54:03 General Case Data FTURO Pre-Care Text: Classifies surgical wound, implements aseptic technique, initiates traffic control Entry 1 Case Information OR URO 1 FT Case Level None Wound Class 2 - Clean-Contaminated Specialty Urology Preop Diagnosis BPH WITH Postop Same As Preop Yes OBSTRUCTION/LOWER URINARY TRACT SYMPTOMS/URGER INCONTINENCE Postop Diagnosis BPH WITH Outcomes Met? Yes OBSTRUCTION/LOWER URINARY TRACT SYMPTOMS/URGER INCONTINENCE Last Modified By: Veena Levin RN 12/05/21 12:51:53 Post-Care Text: The patient is free from signs and symptoms of infection EU IntraOp - FTURO Pre-Care Text: Implements protective measures prior to operative or invasive procedure, confirms identity before the operative or invasive procedure, verifies operative procedure, surgical site, and laterality Entry 1 EU Perioperative Protocols Procedure(s) CYSTOSCOPY LOCAL Patient Identity Birthday, ID Band UROLIFT(.) Verified (select at Check, Patient least 2): Participation Consents / H and P HandP, Surgery/Procedure Operative Site N/A Verified Consent Marking Verified Surgical Site Yes Laterality Verified Yes Verified Procedure Verified Yes Correct Patient Yes Position Verified Availability Equipment, Implant, Time Out Star Manley MD, Gustavo [place], Verified (If Medication Participants Veena Sanders CST Applicable) Leonarda Aguirre CST, Ollie Archuleta RN, Kimberly Y Time Out Complete 12/05/21 13:24:00 Allergies Reviewed? Yes Allergies Reviewed Self/Patient With Body Position Low Lithotomy Prep Area PENIS Prep Agents Betadine Solution Skin. Condition Dry, Warm, Unable to Description UNABLE TO VISUALIZE DUE Visualize TO PATIENT PARTIALLY CLOTHED Additional None Specimens Collected Vitals - EU Blood Pressure 156/86 Pulse 80 bpm Respirations 16 br/min SPO2 EBL 0 IandO - EU Total Intake 0 mL Total Output 0 mL Outcomes Met? Yes Last Modified By: Veena Levin RN 12/05/21 13:25:28 Post-Care Text: The patient is free from signs and symptoms of injury caused by extraneous objects Implant Log FTURO Pre-Care Text: Records devices implanted during the operative or invasive procedure Entry 1 Implant/Explant Implant Implant Identification Description UROLIFT Lot Number [id number] Subsurface Augmentee Elint Operator NEOTRACT Catalog ?# [id number] Expiration Date 07/17/23 Usage Data Implant Site PROSTATE Quantity 4 Outcomes Met? Yes Last Modified By: Veena Levin RN 12/05/21 13:52:12 Post-Care Text: The patient is free from signs and symptoms of injury caused by extraneous objects Sign Out FTURO Entry 1 Before Patient Leaves OR Nurse verbally Yes Nurse verbally Yes confirms with the confirms with the team the name of team that the procedure(s) instrument, sponge, recorded and needle counts are correct (or N/A) Nurse verbally n/a Nurse verbally Yes confirms with the confirms with the team how the team whether there specimen is labeled are any equipment (including patient probl (more content not included)... Normal [facility] Main OR Preoperative Recordo n 12-05-2021 Main OR Preoperative Record Holding Area Document Type FTURO Summary Primary Physician: Gustavo Graves Jr., MD Finalized Date/Time: 12/05/21 13:01:06 Pt. Name: LESLIESHARLAHARISH D.O.B./Sex: 1970 Male Med Rec #: [id number] Physician: Gustavo Graves Jr., MD Financial #: [id number] Pt. Type: O Room/Bed: / Admit/Disch: 12/05/21 11:48:14 - Institution: Case Times Holding FTURO Pre-Care Text: Verifies consent for planned procedure, identifies individual values and wishes concerning care, includes family members in perioperative teaching Secures patient's records' belongings, and valuables, maintains patient's dignity and privacy, and maintains patient confidentiality Entry 1 In Holding 12/05/21 12:25:00 Outcomes Met? Yes Last Modified By: Murray Narvaez LPN 12/05/21 12:25:24 Post-Care Text: The patient participates in decisions affecting his or her perioperative plan of care The patient's right to privacy is maintained Surgery Checklist FTURO Entry 1 Patient Birthday, Patient Procedure History and Physical, Identification: Participation Verification: Surgical Consent, With Patient NPO after Midnight: n/a Personal Items: Dentures, Glasses Limitations: MS Complaints of Pain: No Skin Integrity Unable to Visualize Vitals - EU Blood Pressure 156/86 Pulse 80 bpm Respirations 16 br/min SPO2 RN Reviewed Yes Last Modified By: Veena Levin RN 12/05/21 13:01:04 General Comments: Temp 36.1 Finalized By: Veena Levin RN Document Signatures Signed By: Murray Narvaez LPN 12/05/21 12:28 Veena Levin RN 12/05/21 13:01 Normal [facility] Operative Reporton Operative Report Patient: HARISH MCKENNA Age: 51 years Sex: Male : 1970 Associated Diagnoses: None Author: Star Manley MD, Gustavo [place] Procedure Operative Information Details: Date/ Time: 12/05/2021 13:57:00. Pre-Op Dx: BPH w/ LUTS - N40.1. Post-Op Dx: Same. Anesthesia Type: Local, Periprostatic Nerve Block. Procedure: Cystoscopy with UroLift Prostatic Urethral Lift. Complications: None. Risks/Benefits/Informed Consent: Surgical risks, benefits, details of the procedure have been explained to the patient, Full informed consent has been obtained. Indications: This patient has bladder outlet obstructive symptoms refractory to medications, He is strongly desirous to try the Urolift procedure. Intraoperative Information Prepped: Patient received 1 hour prior to procedure (10 mg diazepam, 5/325 mg of [place]), Local Anesthesia (60cc 2% Xylocaine liquid inserted into bladder, 20cc Xylocaine 2% jelly inserted into urethra, Penile clamp applied for 20 min dwell prior to procedure with patient in sitting position). Procedure: A 20F cystoscope was inserted into the bladder, The cystoscopy bridge was replaced with a UroLift delivery device, The first treatment site was the patient's left side approximately 1.5 cm distal to the bladder neck, The distal tip of the delivery device was then angled laterally approximately 20 degrees at this position to compress the lateral lobe, The trigger was pulled, thereby deploying a needle containing the implant through the prostate, The needle was then retracted, allowing one end of the implant to be delivered to the capsular surface of the prostate, The implant was then tensioned to assure capsular seating and removal of slack monofilament, The device was then angled back toward midline and slowly advanced proximally (typically 3-4mm) until cystoscopic verification of the monofilament being centered in the delivery bay, The urethral end piece was then affixed to the monofilament thereby tailoring the size of the implant, Excess filament was then severed, The delivery device was then readvanced into the bladder, The delivery device was then replaced with cystoscope and bridge and the implant location and opening effect was confirmed cystoscopically, The same procedure was then repeated on the right side, Two additional implants were delivered just proximal to the veru montanum, again one on right and one on left side of the prostate, following the same technique, A final cystoscopy was conducted first to inspect the location and state of each implant, And second, to confirm the presence of a continuous anterior channel was present through the prostatic urethra with irrigation flow turned off, The bladder was then filled with 150cc irrigation fluid to assist the patient in void trial after the procedure, All instruments were removed, The patient was then allowed to sit up, Void trial was later successful and patient did not receive a post-operative urinary catheter. Specimens Removed: None. Devices Implanted: 4 Urolift implants. Postoperative Information Discharge: The patient tolerated the procedure well and was subsequently discharged home. Normal [facility] Comment on above: Result Comment: Elec tronically Signed By: Star Manley MD, Gustavo [place]\.amanda\Date and Time Signed: 12/05/21 13:58 EDT CBC AUTO DIFFon 12-03-2021 BASO # 0.2 103/ul Critically high 0.0-0.1 [facility] Comment on above: Performed By: #### C BC ####[facility] [address] [place], [place] [address]Rl. Cortez Younger Basophils/100 WBC (Bld) 1.3 % Normal 0.2-2.0 [facility] Comment on above: Performed By: #### C BC ####[facility] [address] [place], [place] [address]SdFish Younger EO # 0.2 103/ul Normal 0.0-0.7 [facility] Comment on above: Performed By: #### C BC ####[facility] [address] [place] [id number]. Cortez Younger Eosinophils/100 WBC (Bld) 1.8 % Normal 0.9-7.0 [facility] Comment on above: Performed By: #### C BC ####[facility] [address] [place] [id number]. Cortez Younger Erythrocyte distribution width (RBC) [Ratio] 13.3 % Normal 11.0-15.0 [facility] Comment on above: Performed By: #### C BC ####[facility] [address] [place] [id number]. Cortez Younger Hematocrit (Bld) [Volume fraction] 45.0 % Normal 42.0-54.0 [facility] Comment on above: Performed By: #### C BC ####[facility] [address] [place], [place] [address]Dr. Cortez Younger Hemoglobin (Bld) [Mass/Vol] 15.6 g/dL Normal 14.0-18.0 [facility] Comment on above: Performed By: #### C BC ####[facility] [address] [place], [place] [address]Dr. Cortez Younger IG # 0.05 10e3/ul Critically high 0.00-0.03 [facility] Comment on above: Performed By: #### C BC ####[facility] [address] [place], [place] [address]Dr. Cortez Younger IG % 0.4 % Normal 0.0-0.5 [facility] Comment on above: Performed By: #### C BC ####[facility] [address] [place], [place] [address]Dr. Cortez Younger LYMPH # 1.8 103/ul Normal 1.2-3.8 [facility] Comment on above: Performed By: #### C BC ####[facility] [address] [place], [place] [address]Dr. Cortez Younger Lymphocytes/100 WBC (Bld) 15.2 % Critically low 20.5-60.0 [facility] Comment on above: Performed By: #### C BC ####[facility] [address] [place] [id number]. Cortez Younger MANUAL DIFF REQ NO Normal [facility] Comment on above: Performed By: #### C BC ####[facility] [address] [place] [id number]. Cortez Younger MCH (RBC) [Entitic mass] 31.1 pg Normal 25.9-34.0 [facility] Comment on above: Performed By: #### C BC ####[facility] [address] [place], [place] [address]Dr. Cortez Younger MCHC (RBC) [Mass/Vol] 34.7 g/dL Normal 29.9-35.2 [facility] Comment on above: Performed By: #### C BC ####[facility] [address] [place], [place] [address]Dr. Cortez Aren MCV (RBC) [Entitic vol] 89.8 fL Normal 80.0-94.0 [facility] Comment on above: Performed By: #### C BC ####[facility] [address] [place] [id number]. Cortez Younger MONO # 0.6 103/ul Normal 0.3-0.8 [facility] Comment on above: Performed By: #### C BC ####[facility] [address] [place] [address]Dr. Eleanorvalerie Younger Monocytes/100 WBC (Bld) 5.3 % Normal 1.7-12.0 [facility] Comment on above: Performed By: #### C BC ####[facility] [address] [place] [id number]. Cortez Younger NEUT # 8.9 103/ul Critically high 1.4-6.5 [facility] Comment on above: Performed By: #### C BC ####[facility] [address] [place], [place] [address]Dr. Cortez Younger Neutrophils/100 WBC (Bld) 76.0 % Critically high 43.0-75.0 [facility] Comment on above: Performed By: #### C BC ####[facility] [address] [place] [address]Dr. Cortez Younger Platelet mean volume (Bld) [Entitic vol] 8.9 fL Critically low 9.5-13.5 [facility] Comment on above: Performed By: #### C BC ####[facility] [address] [place] [address]Dr. Cortze Younger PLT 414 103/ul Normal 150-450 [facility] Comment on above: Performed By: #### C BC ####[facility] [address] [place] [address]Dr. Cortez Younger RBC 5.01 106/ul Normal 4.70-6.10 [facility] Comment on above: Performed By: #### C BC ####[facility] [address] [place] [address]Dr. Cortez Younger WBC 11.7 103/ul Critically high 4.0-11.0 [facility] Comment on above: Performed By: #### C BC ####[facility] [address] [place] [address]DrFish Younger PROF 14(COMP METB)on 022 Albumin [Mass/Vol] 3.8 g/dL Normal 3.4-5.0 [facility] Comment on above: Performed By: #### C BC #### [facility] [address] [place] [address] [address] Cortez Younger Albumin/Globulin [Mass ratio] 1.3 {ratio} Normal [facility] Comment on above: Performed By: #### C BC #### [facility] [address] [place] [address] [address] Cortez Younger ALP [Catalytic activity/Vol] 95 U/L Normal 46-116 [facility] Comment on above: Performed By: #### C BC #### [facility] [address] [address] [address] Cortez Younger ALT [Catalytic activity/Vol] 25 U/L Normal 16-63 [facility] Comment on above: Performed By: #### C BC #### [facility] [address] [place] [address] [address] Cortez Younger Anion gap [Moles/Vol] 12.7 mmol/L Normal [facility] Comment on above: Performed By: #### C BC #### [facility] [address] [address] [address] Cortez Younger AST [Catalytic activity/Vol] 18 U/L Normal 15-37 [facility] Comment on above: Performed By: #### C BC #### [facility] [address] [place] [address] Dr. Cortez Younger Bilirubin [Mass/Vol] 0.3 mg/dL Normal 0.2-1.0 [facility] Comment on above: Performed By: #### C BC #### [facility] [address] [place] [address] Dr. Cortez Younger Calcium [Mass/Vol] mg/dL Normal 8.5-10.1 [facility] Comment on above: Performed By: #### C BC #### [facility] [address] [place] [address] Dr. Cortez Younger Chloride [Moles/Vol] 98 mmol/L Normal 98-107 [facility] Comment on above: Performed By: #### C BC #### [facility] [address] [place] [address] Dr. Cortez Younger CO2 [Moles/Vol] 28.9 mmol/L Normal 21.0-32.0 [facility] Comment on above: Performed By: #### C BC #### [facility] [address] [place] [address] Dr. Cortez Younger Creatinine [Mass/Vol] 0.84 mg/dL Normal 0.70-1.30 [facility] Comment on above: Performed By: #### C BC #### [facility] [address] [place] [address] Dr. Cortez Younger EGFR-AF SAMOAN >60 Normal >=60 [facility] Comment on above: Performed By: #### C BC #### [facility] [address] [place] [address] Dr. Cortez Younger EGFR-NON AF SAMOAN >60 Normal >=60 [facility] Comment on above: Performed By: #### C BC #### [facility] [address] [place] [address] Dr. Cortez Younger Globulin (S) [Mass/Vol] 3.0 g/dL Normal [facility] Comment on above: Performed By: #### C BC #### [facility] [address] [address] [address] Cortez Younger Glucose [Mass/Vol] 104 mg/dL Normal 74-106 [facility] Comment on above: Performed By: #### C BC #### [facility] [address] [place] [address] Dr. Cortez Younger Potassium [Moles/Vol] 3.6 mmol/L Normal 3.5-5.1 [facility] Comment on above: Performed By: #### C BC #### [facility] [address] [place] [address] Dr. Cortez Younger Protein [Mass/Vol] 6.8 g/dL Normal 6.4-8.2 [facility] Comment on above: Performed By: #### C BC #### [facility] [address] [place] [address] Dr. Cortez Younger Sodium [Moles/Vol] 136 mmol/L Normal 136-145 [facility] Comment on above: Performed By: #### C BC #### [facility] [address] [place] [address] Dr. Cortez Younger Urea nitrogen [Mass/Vol] 6.0 mg/dL Critically low 7.0-18.0 [facility] Comment on above: Performed By: #### C BC #### [facility] [address] [place] [address] Dr. Cortez Younger Urea nitrogen/Creatinine [Mass ratio] 7.1 mg/mg Normal [facility] Comment on above: Performed By: #### C BC #### [facility] [address] [place] [address] Dr. Cortez Younger Consent for Procedure/Surger yon 10-15-2021 Consent for Procedure/Surgery [id number]: 127 Normal [facility] Patient Educationon 10-15-19 Patient Education Urology Hematuria, Adult Hematuria is blood in the urine. Blood may be visible in the urine, or it may be identified with a test. This condition can be caused by infections of the bladder, urethra, kidney, or prostate. Other possible causes include: ? Kidney stones. ? Cancer of the urinary tract. ? Too much calcium in the urine. ? Conditions that are passed from parent to child (inherited conditions). ? Exercise that requires a lot of energy. Infections can usually be treated with medicine, and a kidney stone usually will pass through your urine. If neither of these is the cause of your hematuria, more tests may be needed to identify the cause of your symptoms. It is very important to tell your health care provider about any blood in your urine, even if it is painless or the blood stops without treatment. Blood in the urine, when it happens and then stops and then happens again, can be a symptom of a very serious condition, including cancer. There is no pain in the initial stages of many urinary cancers. Follow these instructions at home: Medicines ? Take wpdg-atf-exskijq and prescription medicines only as told by your health care provider. ? If you were prescribed an antibiotic medicine, take it as told by your health care provider. Do not stop taking the antibiotic even if you start to feel better. Eating and drinking ? Drink enough fluid to keep your urine clear or pale yellow. It is recommended that you drink 3?4 quarts (2.8?3.8 L) a day. If you have been diagnosed with an infection, it is recommended that you drink cranberry juice in addition to large amounts of water. ? Avoid caffeine, tea, and carbonated beverages. These tend to irritate the bladder. ? Avoid alcohol because it may irritate the prostate (men). General instructions ? If you have been diagnosed with a kidney stone, follow your health care provider's instructions about straining your urine to catch the stone. ? Empty your bladder often. Avoid holding urine for long periods of time. ? If you are female: ? After a bowel movement, wipe from front to back and use each piece of toilet paper only once. ? Empty your bladder before and after sex. ? Pay attention to any changes in your symptoms. Tell your health care provider about any changes or any new symptoms. ? It is your responsibility to get your test results. Ask your health care provider, or the department performing the test, when your results will be ready. ? Keep all follow-up visits as told by your health care provider. This is important. Contact a health care provider if: ? You develop back pain. ? You have a fever. ? You have nausea or vomiting. ? Your symptoms do not improve after 3 days. ? Your symptoms get worse. Get help right away if: ? You develop severe vomiting and are unable take medicine without vomiting. ? You develop severe pain in your back or abdomen even though you are taking medicine. ? You pass a large amount of blood in your urine. ? You pass blood clots in your urine. ? You feel very weak or like you might faint. ? You faint. Summary ? Hematuria is blood in the urine. It has many possible causes. ? It is very important that you tell your health care provider about any blood in your urine, even if it is painless or the blood stops without treatment. ? Take inpg-cdi-mprxgyj and prescription medicines only as told by your health care provider. ? Drink enough fluid to keep your urine clear or pale yellow. This information is not intended to replace advice given to you by your health care provider. Make sure you discuss any questions you have with your health care provider. Document Released: 06/29/2006 Document Revised: 11/23/2019 Document Reviewed: 08/01/2017 [employer] Patient Education ? 2019 [employer] [facility] Urology Office/Clinic Noteon 10-14-2021 Urology Office/Clinic Note Chief Complaint Cysto HPI Staff Cysto ABX TAKEN review PSA 5.24 done 08/13/21. History of Present Illness Patient is here for Cysto and review PSA. Review of Systems PHQ Score Initial Depression Screen Score: 0 ROS - Provider Constitutional: denies weight loss, denies hot flashes. Eyes: denies eye problems. Gastrointestinal: denies nausea, denies vomiting. Cardiovascular: denies chest pain or angina. Integumentary: no dryness Musculoskeletal: denies musculoskeletal symptoms. ENMT: denies otolaryngeal symptoms. Respiratory: no shortness of breath. Heme/Lymph: denies easy bleeding tendency, denies easy bruising tendency. Psychiatric: no confusion, no anxiety. Genitourinary: denies dysuria, denies hematuria, denies discharge, denies urinary frequency, denies urinary hesitancy, denies nocturia, denies incontinence, denies genital sores, denies decreased libido, and denies erectile dysfunction. Physical Exam Vitals & Measurements HR: 93(Peripheral) BP: 160/100 HT: 178.0 cm HT: 178 cm WT: 65.8 kg WT: 65.8 kg BMI: 20.77 General Appearance: alert, no distress, well nourished, well developed male. Head: normocephalic . Eyes: normal orbit and globe. ENMT: normal examination of external ears. Chest: Lungs CTA, respirations non labored. Cardiovascular: regular rate and rhythm. Abdomen: soft, non distended, no tenderness, no mass or organomegaly, no hernia. Genitourinary: normal scrotum, normal testes, normal urethra, normal epididymis, normal vas deferens/spermatic cord. Flank Pain: none. Bladder: nonpalpable. Penis: normal shaft, normal glans. Prostate: normal prostate, estimated weight 40 gms, no hard nodule observed. Lymph Nodes: unremarkable palpation of the cervical area. Skin: warm, dry, no bruising. Psychiatric: cooperative, affect appropriate for age, normal judgement, euthymic mood.male. Procedure Operative Information Anesthesia Type: Local Procedure: Local Cystoscopy Complications: None Surgical risks, benefits, details of the procedure have been explained to the patient. Full informed consent has been obtained. Intraoperative Information Prepped: Patient is brought back to the endoscopy suite. Patient is placed in supine position. Patient prepped in the usual fashion with Betadine solution. 2% Xylocaine Jelly is placed per Urethra. After waiting several minutes, the Cystoscope is introduced. The Urethra is: Normal The Prostatic Urethra is: Obstructed the lateral lobes met in the midline. The middle lobe was not particularly enlarged. This should be a good candidate for UroLift procedure. The Bladder: no tumors, no stonesNormal, Trabeculated: Moderate (2) the bladder did not empty completely. The Ureteral orifices: Show efflux of clear urine Specimens Removed: None Removal: Cystoscope is removed. The patient tolerated it well. Postoperative Information Patient is discharged home with antibiotic coverage. Follow up arranged. Assessment/Plan Will schedule Urolift. The procedure, risk, alternatives and potential complications have been discussed with the patient. All of his questions were answered. We did discuss other procedures including TURP, resume, and others. Patient would like to consider UroLift after long discussion. Brochure was given to the patient. Informed consent has been obtained. We will plan his procedure for 3 to 4 weeks from now. If he changes his mind will always have the option of discontinuing. Preop antibiotics have been ordered. 1. BPH with obstruction/lower urinary tract symptoms (N40.1: Benign prostatic hyperplasia with lower urinary tract symptoms) Patient will continue Tamsulosin 0.4mg qd 2. Elevated PSA (R97.20: Elevated prostate specific antigen [PSA]) Patients PSA was 5.24 I discussed the pros and cons of PSA with the patient today. The carious causes of PSA elevation were outlined, including prostate cancer, prostate enlargement, infection of the prostate, inflammation without infection, as well as prostate manipulation. The options regarding this PSA elevation, including prostate biopsy versus close monitoring, versus obtaining an MRI of the prostate were discussed. The patient has decided upon close monitoring. 3. Urge incontinence (N39.41: Urge incontinence) Patient has Cysto in office with no difficulties 4. Asymptomatic microscopic hematuria (R31.21: Asymptomatic microscopic hematuria) 5. Nocturia (R35.1: Nocturia) Other obstructive and reflux uropathy (N13.8: Other obstructive and reflux uropathy) Follow-up With When Contact Information Gustavo Graves Jr., MD, [facility] [address], [place] [address]- Additional Instructions: Patient Education Hematuria, Adult Jaret Finley personally scribed for Dr. Graves on 10/14/2021 13:40:09. . Documentation recorded by the Sharonda yao accurately reflects the services(s) I performed and decis (more content not included)... Normal [facility] Comment on above: Result Comment: Elec tronically Signed By: Gustavo Graves Jr., MD\.br\Date and Time Signed: 10/14/21 13:47 EDT\.br\Electronically Co-Signed By: Jaret Benz\Date and Time Co-Signed: 10/14/21 13:40 EDT SURGICAL PATH REPORTon 01-25 SURGICAL PATH REPORT [facility] Department of Pathology [address] [place] [address] Name: HARISH MCKENNA : 1970 [facility] [id number] Number: Gender: Male Location: [facility] Admit 50 years Attending CRUZITO TOMLINSON JR Age: Provider: Ordering CRUZITO TOMLINSON JR Provider: Consulting: Surgical Pathology Report ACCESSION: COLLECTED DATE/TIME: RECEIVED DATE/TIME: PATHOLOGIST: [id number] 01/23/2021 12:05 EDT 01/24/2021 12:05 EDT ALVIN CADET MD Final Diagnosis Report for [facility], [place] ANTRUM, BIOPSY: - MILD CHRONIC GASTRITIS. - IMMUNOHISTOCHEMICAL STAIN FOR H. PYLORI ORGANISMS IS NEGATIVE. ALVIN CADET PATHOLOGIST (Electronic Signature) Date Verified 01/25/2021 TS Clinical Data PRE-OP DIAGNOSIS: Not specified POST-OP DIAGNOSIS: N/V, GERD, cyclic vomiting, gastritis PROCEDURES: EGD with biopsy SPECIMEN: Antrum gastritis / Ambulatory Surgery Gross Description Labeled antrum gastritis. Received in formalin on a sponge is a single irregular ruffin segment of soft tissue measuring 0.4 x 0.2 x 0.2 cm. The specimen is entirely submitted in one cassette. MP/ts 01/24/2021 Tissue pathology report for: [facility], [address] [place] [address]; Print Date/ 01/25/2021 12:34 EDT Number: Time: [facility] [address] [place] [id number] Name: HARISH MCKENNA : 1970 [facility] [id number] Number: Gender: Male Location: [facility] Admit 50 years Attending CRUZITO TOMLINSON JR Age: Provider: Ordering CRUZITO TOMLINSON JR Provider: Consulting: Surgical Pathology Report ACCESSION: COLLECTED DATE/TIME: RECEIVED DATE/TIME: PATHOLOGIST: [id number] 01/23/2021 12:05 EDT 01/24/2021 12:05 EDT ALVIN CADET MD Gross Description PATHOLOGY SERVICES PROVIDED BY [facility] (CLIA #[id number]) in cooperation with [facility] at [address] [place] [address] (CLIA #[id number]) Microscopic Diagnosis NOTE: One or more of the reagents used to perform assays on this specimen MAY have contained components considered to be analyte specific reagents ( ASRs). ASRs have not been cleared or approved by the U.S. Food and Drug Administration. The performance characteristics of these assays have been determined by the Department of Pathology at [facility]. This assay was performed subsequent to the H and E examination. Appropriate positive and negative controls were examined with appropriate reactivity. Codes CPT CODE: 31735 + [id number] Print Date01/25/2021 12:34 EDT Number: Time: Normal [facility] Comment on above: Performed By: #### [id number] #### [facility] Laboratory Services [address] [place], [place] [id number] Software Requirements Engineer: Alvin Cadet MD Vital Signs Date Time Vital Sign Value Performing Clinician Facility 03-25-2023 13:30-0400 Body height 177.8 cm Mahnaz Roth Other [facility] Other 03-25-2023 13:30-0400 Body mass index (BMI) [Ratio] 18.65 kg/m2 Mahnaz Roth Other [facility] Other 03-25-2023 13:30-0400 Body temperature 98.4 [degF] Mahnaz Roth Other [facility] Other 03-25-2023 13:30-0400 Body weight 58.97 kg Mahnaz Roth Other [facility] Other 03-25-2023 13:30-0400 Diastolic blood pressure 87 mm[Hg] Mahnaz Marcelinow Other [facility] Other 03-25-2023 13:30-0400 Systolic blood pressure 135 mm[Hg] Mahnaz Marcelinow Other [facility] Other 12-24-2021 09:50-0400 Blood Pressure Location Gustavo Graves Jr. [facility] 12-24-2021 09:50-0400 Diastolic blood pressure 76 mm[Hg] Gustavo Graves Jr. [facility] 12-24-2021 09:50-0400 Heart rate 68 /min Gustavo Graves Jr. [facility] 12-24-2021 09:50-0400 Systolic blood pressure 132 mm[Hg] Gustavo Star Manley [facility] Encounters Encounter Date Encounter Type Care Provider Facility Start: 08-21-2023 End: 08-21-2023 ambulatory Mahnaz Ira Other [facility] Other Start: 08-21-2023 Telephone encounter Mahnaz Ira [facility] Start: 07-22-2023 Telephone encounter Mahnaz Ira [facility] Start: 07-22-2023 End: 07-22-2023 ambulatory MATY MEDEIROS [facility] Other Start: 06-24-2023 End: 06-24-2023 ambulatory Mahnaz Ira Other [facility] Other Start: 06-24-2023 Telephone encounter Mahnaz Ira [facility] Start: 05-28-2023 End: 05-28-2023 ambulatory Mahnaz Ira Other [facility] Other Start: 05-28-2023 Telephone encounter Mahnaz Ira [facility] Start: 05-19-2023 End: 05-19-2023 ambulatory Mahnaz Ira Other [facility] Other Start: 05-19-2023 Office outpatient visit 15 minutes Mahnaz Ira [facility] Start: 04-21-2023 End: 04-21-2023 ambulatory Mahnaz Ira Other [facility] Other Start: 04-21-2023 Office outpatient visit 15 minutes Mahnaz Ira [facility] Start: 04-07-2023 End: 04-07-2023 ambulatory Mahnaz Ira Other [facility] Other Start: 04-07-2023 Telephone encounter Mahnaz Roth [facility] Start: 04-02-2023 End: 04-02-2023 ambulatory Mahnaz Roth Other [facility] Other Start: 04-02-2023 Telephone encounter Mahnaz Roth [facility] Start: 04-01-2023 End: 04-01-2023 ambulatory Mahnaz Roth Other [facility] Other Start: 04-01-2023 Telephone encounter Mahnaz Roth [facility] Start: 03-25-2023 End: 03-25-2023 ambulatory Mahnaz Roth Other [facility] Other Start: 03-25-2023 Office outpatient ne w 60 minutes aMhnaz Roth [facility] Start: 11-13-2022 End: 11-13-[address] DAHLIA KIM . Facility:[facility] Start: 10-31-2022 End: 11-01-[address] BUBBA GHOTRA . Facility:[facility] Start: 10-16-2022 End: 10-16-2022 ambulatory NARENDRANATH LAKSHMIPATHY . Facility:[facility] Start: 10-16-2022 End: 10-17-2022 ambulatory NARENDRANATH LAKSHMIPATHY . Facility:[facility] Start: 10-07-2022 End: 10-07-[address] BUBBA GHOTRA . Facility:[facility] Start: 10-03-[address] BUBBA GHOTRA . Fac ility:[facility] Start: 09-16-2022 ambulatory LAMAR Sheikh ty:[facility] [place] Start: 06-26-2022 End: 06-27-[address] LISA ROMERO . Facility:[facility] Start: 05-28-2022 End: 05-28-2022 ambulatory ESA LARIOS . Facility:[facility] Start: 03-13-2022 End: [address] LISA ROMERO . Facility:[facility] Start: 03-08-2022 ambulatory JERI PURCELL Facility:[facility] Start: 02-26-2022 End: 02-27-[address] VERN DURANT Facility:[facility] Start: 01-18-2022 End: 07-19-[address] VERN DURANT Facility:[facility] Start: 01-17-2022 End: 01-18-2022 ambulatory NONE LISTED REQUEST Facility:[facility] Start: 01-16-2022 End: 01-19-[address] DOCTOR BENNETT Facility:[facility] Start: 01-02-2022 End: 01-03-2022 ambulatory NONE LISTED REQUEST Facility:[facility] Start: 12-24-2021 End: 12-25-2021 ambulatory Heri MURRELL Facility: [facility] Start: 12-24-2021 End: 12-24-2021 Patient encounter procedure Gustavo Graves Jr. [facility] Start: 12-17-2021 End: 12-19-[address] DOCTOR BENNETT Facility:[facility] Start: 12-12-2021 End: 12-13-2021 ambulatory LAMAR TURNER Facility: Start: 12-05-2021 End: 12-06-2021 ambulatory Heri MURRELL Facility:[facility] Start: 12-05-2021 End: 12-05-2021 Patient encounter procedure Gustavo Graves Jr. [facility] Start: 12-05-2021 ambulatory Heri MURRELL Facility :[facility] Start: 12-03-2021 End: 12-04-2021 ambulatory JERI PURCELL Facility: Start: 10-14-2021 End: 10-15-2021 ambulatory Heri MURRELL Facility: [facility] Start: 09-19-2021 ambulatory Heri MURRELL Facility :[facility] Start: 12-11-2017 End: 12-12-2017 Patient encounter procedure Tunde Das Facility:[facility] Procedures Date Procedure Procedure Detail Performing Clinician Start: 10-14-2021 Cystoscopy Gustavo flores Jr. Start: 09-13-2019 Cystoscopy Gustavo flores Jr. Cholecystectomy Gustavo Graves Jr. Counseling Mahnaz corcoran Other Immunizations Immunization Date Immunization Notes Care Provider Oswaldo alexa 10-22-2020 SARS-CoV-2 (COVID-19 ) mRNA BNT-162b2 vax Gustavo Graves Jr. [facility] 10-01-2020 SARS-CoV-2 (COVID-19 ) mRNA BNT-162b2 vax Gustavo Graves Jr. [facility] Payers Date Payer Category Payer Unknown [id number] 2.16.8 40.1.326685.3.579.2.727 1970 Unknown [id number] 2.16.8 40.1.374768.3.579.2.727 1970 Unknown [id number] 2.16.8 40.1.253926.3.579.2.727 1970 Unknown [id number] 2.16.8 40.1.023163.3.579.2.727 1970 Unknown [id number] 2.16.8 40.1.140776.3.579.2.727 1970 Unknown [id number] 2.16.84 0.1.388180.3.579.2.593 1970 Unknown [id number] 2.16.84 0.1.923838.3.579.2.593 1970 Unknown [id number] 2.16.84 0.1.668846.3.579.2.593 1970 Unknown [id number] 2.16.84 0.1.425975.3.579.2.593 1970 Unknown [id number] 2.16.84 0.1.578609.3.579.2.593 1970 Unknown [id number] 2.16.84 0.1.936412.3.579.2.593 1970 Unknown [id number] 2.16.84 0.1.571538.3.579.2.593 1970 Unknown [id number] 2.16.84 0.1.938222.3.579.2.593 1970 Unknown [id number] 2.16.84 0.1.587796.3.579.2.593 1970 Unknown [id number] 2.16.84 0.1.456441.3.579.2.593 1970 Unknown [id number] 2.16.84 0.1.640264.3.579.2.593 1970 Unknown [id number] 2.16.84 0.1.700542.3.579.2.593 1970 Unknown [id number] 2.16.84 0.1.603275.3.579.2.593 1970 Unknown [id number] 2.16.84 0.1.165748.3.579.2.593 1970 Unknown [id number] 2.16.84 0.1.798854.3.579.2.593 1970 Unknown [id number] 2.16.84 0.1.881929.3.579.2.593 1970 Unknown [id number] 2.16.84 0.1.391644.3.579.2.593 1970 Unknown [id number] 2.16.84 0.1.093922.3.579.2.593 1970 Unknown [id number] 2.16.84 0.1.056394.3.579.2.593 1970 Unknown [id number] 2.16.84 0.1.953890.3.579.2.593 1970 Unknown [id number] 2.16.84 0.1.038901.3.579.2.1286 1960 Medicaid [id number] 1960 Medicare [id number] 1960 Self-pay Social History Date Type Detail Facility Start: 10-14-2021 Tobacco smoking status Ex-smoker (fi nding) [facility] Sex Assigned At Male [facility] Functional Status Date Assessment Result Facility 12-24-2021 Functional Status N/A [facility] Clinical Notes 12-05-2021 to 08-21-2023 Note Date & Type Note Facility 08-21-2023 Evaluation note Encounter Date Diagnosis Assessment Notes Aug, Chronic pain (ICD-10 - G89.29) [facility] reviewed, consistent with Rx. MME 60 mg/day [facility] Other 01-10-2024 Evaluation note* Encounter Date Diagnosis Assessment Notes Treatment Notes Treatment Clinical Notes Jul, Chronic pain (ICD-10 - G89.29) [facility] reviewed, consistent with Rx. Also has benzo prescribed by P and pregabalin by neurology [facility] Other 12-13-2023 Evaluation note* Encounter Date Diagnosis Assessment Notes Treatment Notes Treatment Clinical Notes Jun, Chronic pain (ICD-10 - G89.29) [facility] Other 11-16-2023 Evaluation note* Encounter Date Diagnosis Assessment Notes Treatment Notes Treatment Clinical Notes May, Chronic pain (ICD-10 - G89.29) [facility] reviewed, consistent with Rx [facility] Other 11-07-2023 Evaluation note* Encounter Date Diagnosis Assessment Notes Treatment Notes Treatment Clinical Notes May, Chronic pain (ICD-10 - G89.29) [facility] reviewed, consistent with Rx. MME ~50 mg/day. Harish reports some relief with current medication and no changes are made today Continue Oxycodone 10 mg QID Recommended Tylenol 650 mg QID F/U here one month via televisit May, Constipation (ICD-10 - K59.00) Harish was encouraged to take Senna 2 po at bedtime instead of using PRN only [facility] Other 10-10-2023 Evaluation note* Encounter Date Diagnosis Assessment Notes Treatment Notes Treatment Clinical Notes Apr, Chronic pain (ICD-10 - G89.29) [facility] reviewed, consistent with Rx. Harish reports some relief with oxycodone 10 mg tabs, and is using med 3-4x/daily. Continue same without change. Apr, Constipation (ICD-10 - K59.00) Improved elimination with daily use of senna [facility] Other 09-26-2023 Evaluation note* Encounter Date Diagnosis Assessment Notes Treatment Notes Treatment Clinical Notes Mar, Chronic pain (ICD-10 - G89.29) [facility] reviewed, consistent with Rx. Harish reports some pain relief with use of oxycodone, says he is not as miserable as he has been. Continue Oxycodone 10 mg QID PRN F/U here 2 weeks via tele visit Mar, Constipation (ICD-10 - K59.00) Adjust Senna PRN, as he has reported some lose stools after using routinely [facility] Other 09-20-2023 Evaluation note* Encounter Date Diagnosis Assessment Notes Treatment Notes Treatment Clinical Notes Mar, Chronic pain (ICD-10 - G89.29) [facility] reviewed, consistent with recent Rx. Increasing frequency of oxycodone to q6h PRN to improve pain control. Mar, Constipation (ICD-10 - K59.00) Harish is using Miralax daily but remains constipated, will add stimulant laxative [facility] Other 09-13-2023 Evaluation note* Encounter Date Diagnosis Assessment Notes Treatment Notes Treatment Clinical Notes Mar, Multiple sclerosis (ICD-10 - G35) On Ocrevus, follows with Dr. Durant Mar, Encounter for palliative care (ICD-10 - Z51.5) Initiated palliative care to assist with symptom management, goals of care/ advanced care planning and additional support Mar, Chronic pain (ICD-10 - G89.29) Opioid informed consent and agreement reviewed and signed today. ORT moderate risk. [facility] reviewed and reflects recent Rx from hospice providers with medication destroyed when pt revoked the hospice benefit to continue MS treatment (he states he thought he was in a palliative care program, but in reality was enrolled in hospice. Will initiate therapy with low dose oxycodone 10 mg TID PRN. F/U here via televist in 7 days Mar, Anxiety (ICD-10 - F41.9) Follows with psychiatry, Dr. Medeiros. Mar, Advanced care planning/counseling discussion (ICD-10 - Z71.89) Harish is with 2 adult children, 2 brothers and a mother. He has not completed Advanced Directives but is interested in more information and completion of forms. Mar, Nausea (ICD-10 - R11.0) Continue Zofran without change Mar, Constipation (ICD-10 - K59.00) Management of Constipation hand out provided to patient [facility] Other 04-06-2023 NoteCONSULTATION CONSULTATION DATE: 10/16/2022 TO: Bubba Ghotra M.D. CHIEF COMPLAINT: Includes pain in multiple areas, predominantly mainly in his legs. HISTORY: He describes his pain overall as being 5-7/10 pain, burning in character with an occasional sharp component. It seems to increase and decrease idiosyncratically, but he does report movement in general does increase his pain symptoms. He feels most comfortable in the semi-recumbent position. Denies any change in bowel and bladder habits or new sensorimotor changes in the lower extremities MEDICATION: Current medication includes diazepam 25 mg daily, Lyrica 200 mg t.i.d., [place] 7.5 mg b.i.d. He currently uses medical marijuana, Trileptal 200 mg daily. EXAM: His examination is unremarkable. He appeared to have some mildly depressed reflexes in the right lower extremity compared to the left, but apart from this, I could not appreciate any focal deficits on examination on today's visit involving his lower extremities. He did have a moderate amount of myofascial spasm involving the lumbar paravertebral muscles. He had point tenderness overlying his quadriceps and hamstrings bilaterally, but nothing localizing his generalized tenderness. IMPRESSION: Patient with chronic pain. He has known multiple sclerosis. He is on multiple medications for his chronic pain symptoms. RECOMMENDATIONS: We had a discussion regarding the patient being on benzodiazepine with an opioid, as well as medical marijuana. I have informed him that he either needs to discontinue his diazepam and THC if we are to continue with [place]. However, at this point, I do not believe that he would be an appropriate candidate for opioid escalation by any means. In fact, we will obtain urine toxicology screen at today's visit. I have discontinued his baclofen. We will also bring the patient back for a pill count in the near future. We will have the patient return to the office in four weeks' time or sooner if needed. As part of providing excellent, safe, comprehensive care, the following was completed at our patient's visit: 1. A medication reconciliation and review to ensure accurate knowledge of current/active medications, including asking our patients to inform us about any [id number] medications or herbal remedies/nutritional supplements/alternative remedies. 2. A review to specifically ensure our patients have had annual screening for: elevated body mass index (BMI, see intake chart for exact total), tobacco use, screening for depression, and screening for unhealthy alcohol use. When screening is concerning, patients are provided with education and the specific recommendation to discuss the concerning health issue and treatment options with their primary care provider.[facility] [id number] Note CONSULTATION CONSULTATION DATE: 06/26/2022 HISTORY OF PRESENT ILLNESS: This is a 52-year-old gentleman who returns to the clinic for medication maintenance for his chronic pain. The patient does have MS and has multifocal polyarthralgia and myalgias. Today, his pain is 6/10, described as a burn, primarily in his bilateral legs, feet and arms. All activity aggravates his pain, with the exception of side lying. He does not use any heat or ice. Medications include Lyrica 200 mg t.i.d. per his neurologist, [place] 7.5/325 b.i.d., Cymbalta, baclofen and Ocrevus. Patient's REVIEW OF SYSTEMS / PAST MEDICAL HISTORY / ALLERGIES and IMAGES have been reviewed and noted in the chart. PHYSICAL EXAM: VITAL SIGNS: Blood pressure is 153/97. Heart rate is 65. Temperature is 97.8. He is 5'5 , weighs 67 kg. GENERAL APPEARANCE: Pleasant, appropriate, no acute distress. FOCUSED EXAM: Diffuse muscle atrophy noted to upper and lower extremities. Patient has a steady walk and ambulates unassisted. Generalized atrophy to hamstrings and quadriceps. NEUROLOGICALLY: Diffuse polyneuropathy upper and lower extremities. Patient has blunted reflex to bilateral brachioradialis and patellar. BACK: Range of motion is function in lateral rotation and flexion/extension. DIAGNOSIS: MS, chronic pain syndrome and neuropathic pain. PLAN: There will be no medication changes today. He was increased to [place] 7.5/325 at his last visit, and the patient feels it is somewhat helpful. We will continue to medically manage him only. Patient will be seen in the clinic in three months' time unless otherwise indicated.[facility] [id number] NoteCONSULTATION CONSULTATION DATE: 03/13/2022 HISTORY OF PRESENT ILLNESS: This is 51-year-old gentleman, well known to the [facility], returning for a three month follow up. This gentleman has history of MS, chronic pain syndrome and diffuse neuropathic pain, which is chronically medically managed with a medication regimen. Current medications include Mobic 15 mg daily, Lyrica 200 mg t.i.d., [place] 5/325 t.i.d., baclofen, Trileptal and amitriptyline. Patient recently suffered a family loss and reportedly has lost about 12 pounds in weight. He does ambulate with a cane and is stable with that. He is requesting today that we change his [place] from t.i.d. to 7.5 b.i.d. as he felt it covered his pain better. Activities that aggravate his pain are housework, stairs, bending, ADLs and activity. Patient's REVIEW OF SYSTEMS / PAST MEDICAL HISTORY / ALLERGIES and IMAGES have been reviewed and they are noted on the chart. PHYSICAL EXAM: VITAL SIGNS: Blood pressure 149/91, heart rate is 74. Temperature is 97.5. He is 5'5 and weighs 62 kg. GENERAL APPEARANCE: Pleasant, appropriate, slightly cachectic. FOCUSED EXAM - BACK: Range of motion is functional in lateral rotation and flexion/extension. Paravertebral muscles are non-spasmodic. Patient has generalized arthralgia throughout. MUSCULOSKELETAL: Diffuse muscle atrophy noted to bilateral upper and lower extremities. Muscle tone is poor. Patient does ambulate with a cane with a slow antalgic gait. NEUROLOGICAL: Diffuse neuropathic pain to bilateral upper and lower extremities. Blunted reflexes to brachioradialis and patellar and Achilles reflexes. DIAGNOSIS: MS, chronic pain syndrome and neuropathic pain. PLAN: We will check from his [place] 5/325 t.i.d. to 7.5/325 b.i.d. We will maintain his other medications with no dose or frequency change. He will be given a U-Tox in the clinic today. I did discuss vitamin importance as well as supplementing his protein intake with Boost supplements. We will see the patient in three months' time, unless otherwise indicated. Patient is in agreement to this.[facility] [id number] Hospital Discharge instructions Patient Education 12/24/2021 10:47:00 Prostate-Specific Antigen Test Prostate-Specific Antigen Test Why am I having this test? The prostate-specific antigen (PSA) test is a screening test for prostate cancer. It can identify early signs of prostate cancer, which may allow for more effective treatment. Your health care provider may recommend that you have a PSA test starting at age 40 or that you have one earlier or later, depending on your risk factors for prostate cancer. You may also have a PSA test: To monitor treatment of prostate cancer. To check whether prostate cancer has returned after treatment. If you have signs of other conditions that can affect PSA levels, such as: ?An enlarged prostate that is not caused by cancer (benign prostatic hyperplasia, BPH). This condition is very common in older men. ?A prostate infection. What is being tested? This test measures the amount of PSA in your blood. PSA is a protein that is made in the prostate. The prostate naturally produces more PSA as you age, but very high levels may be a sign of a medicalcondition. What kind of sample is taken? A blood sample is required for this test. It is usually collected by inserting a needle into a blood vessel or by sticking a finger with a small needle. Blood for this test should be drawn before having an exam of the prostate. How do I prepare for this test? Do not ejaculate starting 24 hours before your test, or as long as told by your health care provider. Tell a health care provider about: Any allergies you have. All medicines you are taking, including vitamins, herbs, eye drops, creams, and unvq-xtt-rygzfhe medicines. This also includes: ?Medicines to assist with hair growth, such as finasteride. ?Any recent exposure to a medicine called diethylstilbestrol. Any blood disorders you have. Any recent procedures you have had, especially any procedures involving the prostate or rectum. Any medical conditions you have. Any recent urinary tract infections (UTIs) you have had. How are the results reported? Your test results will be reported as a value that indicates how much PSA is in your blood. This will be given as nanograms of PSA per milliliter of blood (ng/mL). Your health care provider will compare your results to normal ranges that were established after testing a large group of people (reference ranges). Reference ranges may vary among labs and hospitals. PSA levels vary from person to person and generally increase with age. Because of this variation, there is no single PSA value that is considered normal for everyone. Instead, PSA reference ranges are used to describe whether your PSA levels are considered low or high (elevated). Common reference ranges are: Low: 0 2.5 ng/mL. Slightly to moderately elevated: 2.6 10.0 ng/mL. Moderately elevated: 10.0 19.9 ng/mL. Significantly elevated: 20 ng/mL or greater. Sometimes, the test results may report that a condition is present when it is not present (false-positive result). What do the results mean? A test result that is higher than 4 ng/mL may mean that you are at an increased risk for prostate cancer. However, a PSA test by itself is not enough to diagnose prostate cancer. High PSA levels may also be caused by the natural aging process, prostate infection, or BPH. PSA screening cannot tell you if your PSA is high due to cancer or a different cause. A prostate biopsy is the only way to diagnose prostate cancer. A risk of having the PSA test is diagnosing and treating prostate cancer that would never have caused any symptoms or problems (overdiagnosis and overtreatment). Talk with your health care provider about what your results mean. Questions to ask your health care provider Ask your health care provider, or the department that is doing the test: When will my results be ready? How will I get my results? What are my treatment options? What other tests do I need? What are my next steps? Summary The prostate-specific antigen (PSA) test is a screening test for prostate cancer. Your health care provider may recommend that you have a PSA test starting at age 40 or that you have one earlier or later, depending on your risk factors for prostate cancer. A test result that is higher than 4 ng/mL may mean that you are at an increased risk for prostate cancer. However, elevated levels can be caused by a number of conditions other than prostate cancer. Talk with your health care provider about what your results mean. This information is not intended to replace advice given to you by your health care provider. Make sure you discuss any questions you have with your health care provider. Document Released: 08/01/2005 Document Revised: 06/11/2018 Document Reviewed: 04/05/2018 [employer] Patient Education 2020 [employer]. Follow Up Care 12/05/2021 14:04:21 With:Star Manley MD, Gustavo Orlando [facility]RO Address: [facility] [address], [place] [address]- When:Within 6 Month(s) Comments:w/ PVR [facility] 05-26-2022 Note [id number]:[id number] 12-05-2021 NoteUrolift ? Some men may experience discomfort after the procedure. On occasion, some bloody discharge may beapparent from the penis. You may have soreness in the lower abdomen, and it may be uncomfortable tosit. You may experience the need to urinate more frequently and with greater urgency. These are allnormal reactions to the procedure. It is important to take care of yourself the next couple of daysto facilitate a speedy recovery. The following are some suggestions: -Have someone drive you home after the procedure. -Drink plenty of water; 8 10oz glasses per day. If your urine looks dark yellow, you are probably not drinking enough water. -Take your medications as prescribed -If you have a catheter placed, do not engage in strenuous activity until your catheter has been removed. You may take a shower but avoid a bath while you have a catheter. - In the event you have to go home with a catheter, you may notice leakage of urine and/or yellow discharge/blood around the catheter. This is normal and no cause to be alarmed; UNLESS you are havingsignificant pain associated with the leakage or the leakage does not stop. -You can use Tylenol or Advil for discomfort. Use AZO (over the counter) for burning with urination ? It is normal to have some blood in your urine after surgery. One day it may be clear, and the next day it might be bloody. Do not be alarmed, this can last a week and sometimes longer. ? It is normal to feel like you have to urinate very often but nothing comes out. You may feel likeyou have to urinate again, or feel pressure in the pelvic area, even right after you just urinated. ? You may leak and not make it to the bathroom. These are called bladder spasms and are common after the procedure. ? It is normal to have some discomfort after the procedure. This can last up to 4 weeks and includes: pelvic ache, urinary frequency, and urinary urgency. Most patients report symptoms getting betterwithin 2 weeks. ? Finish the antibiotic which you have already started ? If you were given drugs to make you drowsy or pain medication follow these instructions: -You should spend the remainder of the day and evening resting -You should not attempt to walk, including going to the bathroom without assistance. You may be lightheaded from the medication you received. -Eat light today to avoid nausea. You should be able to return to your normal diet 24 to 36 hours after your procedure. -For the next 24 hours, do not consume alcohol, attempt to drive, use power tools, sign important documents or make important decisions. After that only do so if you feel perfectly normal and alert. -Follow carefully any verbal or written instructions your surgeon may give you. ? You should contact your physician if you experience any of the following: -Temperature above 101.5 -Excessive urinary bleeding or bleeding from the penis -Continuous bladder spasms -Painful, swollen and/or inflated testicle(s) or scrotum. -Unable to void spontaneously or the indwelling catheter is not draining urine or is blocked -Bright boucher red urine that does not stop after 3 days -Unable to urinate after 7-8 hours or bladder feeling full and you can't urinate -If you have excessive or persistent pain, swelling, bleeding, nausea, vomiting, or any problems, you should first call your surgeon for advice. If you are unable to contact your surgeon, seek help from a hospital emergency room. If your doctor suggests that you go to the emergency room for catheterization for inability to urinate, be sure to tell the facility personnel to use a Coude (pronouncedcoo-day) tipped catheter.[facility]05-26-2022 Hospital Discharge instructions Patient Education 12/05/2021 13:20:29 [facility] - Urolift Discharge Instructions (Custom) Urolift Some men may experience discomfort after the procedure. On occasion, some bloody discharge may be apparent from the penis. You may have soreness in the lower abdomen, and it may be uncomfortable to sit. You may experience the need to urinate more frequently and with greater urgency. These are all normal reactions to the procedure. It is important to take care of yourself the next couple of days to facilitate a speedy recovery. The following are some suggestions: -Have someone drive you home after the procedure. -Drink plenty of water; 8 10oz glasses per day. If your urine looks dark yellow, you are probably not drinking enough water. -Take your medications as prescribed -If you have a catheter placed, do not engage in strenuous activity until your catheter has been removed. You may take a shower but avoid a bath while you have a catheter. - In the event you have to go home with a catheter, you may notice leakage of urine and/or yellow discharge/blood around the catheter. This is normal and no cause to be alarmed; UNLESS you are havingsignificant pain associated with the leakage or the leakage does not stop. -You can use Tylenol or Advil for discomfort. Use AZO (over the counter) for burning with urination It is normal to have some blood in your urine after surgery. One day it may be clear, and the next day it might be bloody. Do not be alarmed, this can last a week and sometimes longer. It is normal to feel like you have to urinate very often but nothing comes out. You may feel like you have to urinate again, or feel pressure in the pelvic area, even right after you just urinated. You may leak and not make it to the bathroom. These are called bladder spasms and are common after the procedure. It is normal to have some discomfort after the procedure. This can last up to 4 weeks and includes:pelvic ache, urinary frequency, and urinary urgency. Most patients report symptoms getting better within 2 weeks. Finish the antibiotic which you have already started If you were given drugs to make you drowsy or pain medication follow these instructions: -You should spend the remainder of the day and evening resting -You should not attempt to walk, including going to the bathroom without assistance. You may be lightheaded from the medication you received. -Eat light today to avoid nausea. You should be able to return to your normal diet 24 to 36 hours after your procedure. -For the next 24 hours, do not consume alcohol, attempt to drive, use power tools, sign important documents or make important decisions. After that only do so if you feel perfectly normal and alert. -Follow carefully any verbal or written instructions your surgeon may give you. You should contact your physician if you experience any of the following: -Temperature above 101.5 -Excessive urinary bleeding or bleeding from the penis -Continuous bladder spasms -Painful, swollen and/or inflated testicle(s) or scrotum. -Unable to void spontaneously or the indwelling catheter is not draining urine or is blocked -Bright boucher red urine that does not stop after 3 days -Unable to urinate after 7-8 hours or bladder feeling full and you can t urinate -If you have excessive or persistent pain, swelling, bleeding, nausea, vomiting, or any problems, you should first call your surgeon for advice. If you are unable to contact your surgeon, seek help from a hospital emergency room. If your doctor suggests that you go to the emergency room for catheterization for inability to urinate, be sure to tell the facility personnel to use a Coude (pronouncedcoo-day) tipped catheter. Follow Up Care 10/15/2021 13:57:48 With:Gustavo Graves Address: [facility] [address], [place] [address]- Business (1) When:2 to 4 weeks Comments[facility] Future Appointments Appointment Date:12/24/2021 09:30:00 AM Scheduled Provider:Gustavo Graves Jr., MD [facility] Future Appointments Appointment Date:07/01/2022 10:45:00 AM Scheduled Provider:Gustavo Graves Jr., MD Location:[facility] Appointment Type:URO Office Visit [facility] evaluation noteNo Information[facility] [employer] Other History general Narrative - Reported* Type Description Date Medical History multiple sclerosis Medical History bipolar Medical History GERD Surgical History cholecystectomy [facility] [employer] Other Hospital course Narrative No data available for this section [facility] No data available for this section [facility] Summary Purpose Family History No Family History Records FoundNo Family History Records FoundNo Family History Records FoundNo Family History Records FoundNo Family History Records Found Advance Directives No Advanced Directives Records FoundNo Advanced Directives Records FoundNo Advanced Directives Records FoundNo Advanced Directives Records FoundNo Advanced Directives Records Found Additional Source Comments (unrecognized sect ion and content) No Status Records FoundNo Status Records FoundNo Status Records FoundNo Status Records FoundNo Status Records Found INFORMATION SOURCE (unrecogn ized section and content) DATE CREATED AUTHOR 09/18/2018 [facility] DATE CREATED AUTHOR AUTHOR'S ORGANIZ ATION 01/25/2021 [facility] DATE CREATED AUTHOR AUTHOR'S ORGANIZ ATION 09/16/2022 [facility] DATE CREATED AUTHOR AUTHOR'S ORGANIZ ATION 11/18/2022 [facility] DATE CREATED AUTHOR AUTHOR'S ORGANIZ ATION 07/26/2023 [facility] Care Team (unrecognized sect ion and content) Personnel Name: BRANDIN DARLING, BUBBA Chand Address: [address] [place] [id number] REASON FOR VISIT (unrecogniz ed section and content) Pt here at request of TONY to establish with palliative care, will need opioid consent if prescribed todayMedicationPt here for 1 week follow up via tele check in He was started on Oxycodone 10 mg TID ( per insurance they only filled 7 day supply and he will need a new script today)Pt here for one week follow up via tele check in to reassess symptoms, He was to increase Oxycodone 10 mg to QID and started on Senna at last visitPt here for 2 week follow up via tele check in for reassessment of symptoms. He was to continue Oxycodone 10 mg QIDPt here for one month follow up via tele visit. He was to continue Oxycodone 10 mg without changeRefillRefillRefillPt here for 3 month follow up chronic pain, He was to continue Oxycodone 10 mg QID without change and take Senna routinely FOR RECORDS PERTAINING TO PATIENTS WHO ARE OR HAVE BEEN ENROLLED IN A CHEMICAL DEPENDENCY/SUBSTANCEABUSE PROGRAM, SOME INFORMATION MAY BE OMITTED. This clinical summary was aggregated from multiple sources. Caution should be exercised in using it in the provision of clinical care. This summary normalizes information from multiple sources, and as a consequence, information in this document may materially change the coding, format and clinical context of patient data. In addition, data may be omitted in some cases. CLINICAL DECISIONS SHOULD BE BASED ON THE PRIMARY CLINICAL RECORDS. [employer] provides no warranty or guarantee of the accuracy or completeness of information in this document.
--- NOTE | 2023-08-26 05:49 | ECG_ITS ---
[facility] Test Date: 2023-08-26 Pat Name: SERGIO MCKENNA Department: Room: - Gender: Male [employer]: : 1970 Requested By: RANDALL GHOTRA Order Number: [id number] Reading MD: KEEGAN RYAN Measurements Intervals [place] Rate: 106 P: 75 ME: 152 QRS: 91 QRSD: 90 T: 76 QT: 344 QTc: 406 Interpretive Statements 1120 Sinus tachycardia 7102 Moderate right axis deviation 0102 ARTIFACT PRESENT 9140 abnormal rhythm ECG Electronically Signed On 08-26-2023 6:51:33 EST by KEEGAN RYAN
--- NOTE | 2023-08-26 05:53 | XR_ITS ---
The [address] [address] Patient Name: SERGIO MCKENNA MRN: [id number] date: 1970 Sex: M Assigned Patient Location: ER Current Patient Location: ER Accession/Order Number: [id number] Exam Date: 08/26/2023 06:00 Report Date: 08/26/2023 06:13 At the request of: DAHLIA KIM Procedure: XR chest 1V EXAM: XR chest 1V HISTORY: shortness of breath COMPARISON: Acute abdomen series dated 11/13/2022. TECHNIQUE: One view of the chest was obtained. FINDINGS: The cardiac silhouette is normal in size. There are right greater than left basilar airspace opacities. There is no significant pneumothorax or pleural effusion. No acute osseous abnormality is seen. XR/XR chest 1V IMPRESSION: 1. Right greater than left basilar opacities are concerning for pneumonia and/or aspiration changes. Electronically authenticated by: Farideh POP Date: 08/26/2023 06:13
--- NOTE | 2023-08-26 05:55 | ED_ITS ---
HPI - SOB/Dyspnea General Chief Complaint: Shortness of Breath/Dyspnea Stated Complaint: SOB Time Seen by Provider: 08/26/23 05:36 Source: patient Mode of arrival: Wheelchair Limitations: no limitations History of Present Illness HPI Narrative: Patient with COPD brought in by family for evaluation after 3 days of worsening shortness of breath. He has been using him home inhaler without any improvement. He admits to dry cough. No fever or chills. No chest pain or palpitations. No new leg or calf pains - he has MS and suffers from chronic pain. On arrival his room air pulse ox was only 77%. He was immediately placed on oxygen by nasal cannula. He is a multipack a day smoker. His PCP is Dr Cruz. Related Data Home Medications Medication Instructions Recorded Confirmed albuterol sulfate 2.5 mg/3 mL mg 08/26/23 (0.083 %) solution for nebulization amitriptyline 50 mg tablet mg 08/26/23 amlodipine 5 mg tablet mg 08/26/23 baclofen 10 mg tablet mg 08/26/23 budesonide-formoterol HFA 160 inhalation 08/26/23 mcg-4.5 mcg/actuation aerosol inhaler (Symbicort) buspirone 15 mg tablet mg 08/26/23 clonazepam 1 mg tablet mg 08/26/23 duloxetine 60 mg capsule,delayed mg PO 08/26/23 release hydralazine 10 mg tablet mg 08/26/23 losartan 100 mg tablet mg 08/26/23 metoprolol tartrate 50 mg tablet mg 08/26/23 oxcarbazepine 300 mg tablet mg 08/26/23 oxycodone 10 mg tablet mg 08/26/23 pregabalin 200 mg capsule mg 08/26/23 primidone 50 mg tablet mg 08/26/23 Allergies Allergy/AdvReac Type Severity Reaction Status Date / Time paroxetine [From Paxil] Allergy Intermediate Hallucinati Verified 08/26/23 05:36 ng venlafaxine [From Effexor] Allergy Intermediate Hallucinati Verified 08/26/23 05:36 ng [facility] Social History Smoking status: Current every day smoker Exam Narrative Exam Narrative: Nurses notes and vital signs reviewed and patient IS hypoxic. afebrile General: Tachypneic. Skin: Warm, dry, no pallor noted. No rash. Head: Normocephalic, atraumatic. Neck: Supple, non-tender. No cervical lymphadenopathy Eye: Pupils are equal, round and EOMI. No scleral icterus. Ears, Nose, Mouth, and Throat: Oral mucosa is moist Cardiovascular: Tachycardia. Respiratory: Tachypnea with accessory muscle use. Decreased air exchange globally. Lungs with scattered expiratory wheezing and rhonchi Musculoskeletal: normal ROM, no calf or popliteal tenderness, no lower extremity edema/swelling GI: Abdomen is soft, non-distended. Normal bowel sounds. No tenderness to palpation. No rebound, guarding, or rigidity noted. Neurological: A&O x4. No cranial nerve dysfunction observed. No truncal ataxia. Moves all extremities. Sensation intact. Psychiatric: Cooperative and interactive. Normal mood and affect. Constitutional Vital Signs, click to edit/add: Last Vital Signs Temp 98.8 F 08/26/23 05:27 Pulse 105 H 08/26/23 06:16 Resp 22 08/26/23 06:16 BP 128/90 08/26/23 06:16 Pulse Ox 94 L 08/26/23 06:15 O2 Del Method Nasal Cannula 08/26/23 05:40 O2 Flow Rate 6 08/26/23 06:15 Course Vital Signs Vital signs: Vital Signs Temperature 98.8 F 08/26/23 05:27 Pulse Rate 114 H 08/26/23 05:27 Respiratory Rate 08/26/23 05:27 Blood Pressure 143/114 H 08/26/23 05:27 Pulse Oximetry 77 L 08/26/23 05:27 Oxygen Delivery Method Room Air 08/26/23 05:27 Temperature 98.8 F 08/26/23 05:27 Pulse Rate 105 H 08/26/23 06:16 Respiratory Rate 08/26/23 06:16 Blood Pressure 128/90 08/26/23 06:16 Pulse Oximetry 94 L 08/26/23 06:15 Oxygen Delivery Method Nasal Cannula 08/26/23 05:40 Oxygen Delivery Flow Rate 6 08/26/23 06:15 MDM - SOB/Dyspnea MDM Narrative Medical decision making narrative: Patient was placed on site monitor and EKG obtained. Blood drawn and sent for evaluation, including procalcitonin, lactate and blood cultures per sepsis protocol. Respiratory panel swab was obtained. Portable chest x-ray obtained. Patient received IV Solu-Medrol and nebulized albuterol and Atrovent. Bibasilar opacities concerning for pneumonia. He was ordered to receive Levaquin. ABG reveals severe hypoxemia = pH 7.45, pCO2 39.2, paO2 56.1, sat 90.9 on 6LPM NC. D dimer elevated. He was ordered to undergo CT angio chest. Patient will need to be admitted for hypoxemia secondary to bibasilar community acquired pneumonia and COPD exacerbation. He was informed of results, diagnosis and need for admission. Also informed of need for CT angio chest to rule out PE. Lactate, troponin and BNP negative. CMP unremarkable. Patient signed out to Dr Tadeo at shift change to review CT angio result and notify documentation improvement specialist admitting physician of case and need for admission. Differential Diagnosis Differential diagnosis: Likely acute exacerbation of chronic obstructive airways disease, congestive heart failure, community acquired pneumonia and pulmonary embolism Lab Data Attestation: I reviewed the patient's lab results. Labs: Lab Results 08/26/23 08/26/23 08/26/23 Range/Units 05:40 06:10 06:15 D-Dimer 2.69 H* (<=0.59) mg/L FEU Puncture Site Lr ABG pH 7.446 (7.350-7.450) ABG pCO2 39.2 (35.0-45.0) mmHg ABG pO2 56.1 L* (80.0-100.0) mmHg ABG HCO3 27.0 H (22.0-26.0) mmol/L ABG O2 Saturation 90.9 % ABG Base Excess 3.0 H (-2.0-2.0) mmol/L Ruiz Test Positive (POSITIVE) O2 Liters/Min 6 Sodium 135 L (136-145) mmol/L Potassium 4.7 (3.5-5.1) mmol/L Chloride 98 (98-107) mmol/L Carbon Dioxide 28.1 (21.0-32.0) mmol/L Anion Gap 13.6 BUN 10.0 (7.0-18.0) mg/dL Creatinine 0.86 (0.70-1.30) mg/dL Est GFR ( Amer) >60 (>=60) Est GFR (Non-Af Amer) >60 (>=60) BUN/Creatinine Ratio 11.6 Glucose 94 (74-106) mg/dL Lactate 1.1 (0.4-2.0) mmol/L Calcium 8.7 (8.5-10.1) mg/dL Total Bilirubin 0.5 (0.2-1.0) mg/dL AST 37 (15-37) U/L ALT 22 (16-63) U/L Alkaline Phosphatase 109 (46-116) U/L Troponin I High Sens 9.9 (4.0-76.1) pg/mL NT-Pro-B Natriuret Pep 601.0 (<=900.0) pg/mL Total Protein 7.1 (6.4-8.2) g/dL Albumin 2.8 L (3.4-5.0) g/dL Globulin 4.3 g/dL Albumin/Globulin Ratio 0.7 Imaging Data Chest x-ray: Radiologist's impression: ITS Impressions Chest X-Ray 08/26/23 05:53 IMPRESSION: 1. Right greater than left basilar opacities are concerning for pneumonia and/or aspiration changes. Electronically authenticated by: Farideh POP Date: 08/26/2023 06:13 ECG Data Attestation: I personally reviewed and interpreted this ECG as follows: Interpretation: EKG interpretation: Emergency Department physician interpretation. Sinus tachycardia at 106bpm. Right axis deviation, normal intervals and no ST segment elevation or depression. Discharge Plan Discharge Chief Complaint: Shortness of Breath/Dyspnea Clinical Impression: Acute infective exacerbation of chronic obstructive airway disease, Hypoxemia Community acquired pneumonia Qualifiers: Lung location: lower lobe of lung Patient Disposition: Admitted As Inpatient Time of Disposition Decision: 06:28
[2023-08-26] MEDS: METHYLPREDNISOLONE SOD SUCC PF 125 MG/2 ML VIAL IVP ×4 (06:17→23:34)
[2023-08-26] MEDS: IPRATROPIUM/ALBUTEROL SULFATE 3 ML AMPUL.NEB IH ×4 (06:18→23:42)
[2023-08-26 06:22] LABS: ABG PCO2 39.2 mmHg (35.0-45.0); pH ABG 7.446 (7.350-7.450)
[2023-08-26 06:22] LABS: Adenovirus NOT DETECTED (NOT DETECTE); Bordetella parapertussis NOT DETECTED (NOT DETECTE); Coronavirus 229E NOT DETECTED (NOT DETECTE); Coronavirus HKU1 NOT DETECTED (NOT DETECTE); Coronavirus NL63 NOT DETECTED (NOT DETECTE); Coronavirus OC43 NOT DETECTED (NOT DETECTE); Human Metapneumovirus NOT DETECTED (NOT DETECTE); Human Rhinovirus/Enterovirus NOT DETECTED (NOT DETECTE); Influenza A NOT DETECTED (NOT DETECTE); Influenza B NOT DETECTED (NOT DETECTE); Mycoplasma pneumoniae NOT DETECTED (NOT DETECTE); Parainfluenza Virus 1 NOT DETECTED (NOT DETECTE); Parainfluenza Virus 2 NOT DETECTED (NOT DETECTE); Parainfluenza Virus 3 NOT DETECTED (NOT DETECTE); Parainfluenza Virus 4 NOT DETECTED (NOT DETECTE); Respiratory Syncytial Virus NOT DETECTED (NOT DETECTE); SARS-CoV-2 NOT DETECTED (NOT DETECTE)
[2023-08-26 06:23] LABS: Allen Test POSITIVE (POSITIVE); Liters per Minute 6; O2 Mode NASAL CANNULA; Oxygen Saturation ABG 90.9 %; Puncture Site LR
[2023-08-26 06:25] LABS: PO2 ABG 56.1 mmHg (80.0-100.0)
--- NOTE | 2023-08-26 06:26 | CT_ITS ---
[address] [address] Patient Name: SERGIO MCKENNA MRN: [id number] date: 1970 Sex: M Assigned Patient Location: ER Current Patient Location: .MAIN Accession/Order Number: [id number] Exam Date: 08/26/2023 06:45 Report Date: 08/26/2023 07:15 At the request of: DAHLIA KIM Procedure: CT angio chest EXAMINATION: CT angio chest HISTORY: hypoxemia , fever, shortness of breath, productive cough COMPARISON: No relevant comparison available. TECHNIQUE: Multi-planar CT images were created with IV contrast. Axial, Coronal, and Sagittal images. Dose reduction techniques were achieved by using automated exposure control and/or adjustment of mA and/or kV according to patient size and/or use of iterative reconstruction technique. 3-D reconstruction was performed on a separate workstation. FINDINGS: VASCULATURE: No pulmonary embolism or abnormal opacity. LUNGS: Small patchy and confluent opacities scattered throughout the lungs, greatest within lung bases. 6 cm area of consolidation within right lower lobe posterior segment. Several small nodular-like opacities within left lung base. PLEURA: No mass, effusion, or pneumothorax. ANDER: No mass or adenopathy. MEDIASTINUM: No mass or adenopathy. CARDIAC: No enlargement, pericardial effusion, or pericardial thickening. AORTA: No aneurysm or dissection. CHEST WALL: No mass or axillary adenopathy. BONES: No bone lesion or fracture. LIMITED ABDOMEN: No suspicious findings. Limited images of the upper abdomen. OTHER: Negative. CT/CT angio chest IMPRESSION: 1. No pulmonary embolism. 2. Moderate bilateral pulmonary infiltrates suggestive of multifocal pneumonia. Follow-up CT chest without contrast in 2 months to document clearing and to exclude underlying nodule/neoplasm is recommended. Electronically authenticated by: VERN LU Date: 08/26/2023 07:15
[2023-08-26 06:38] LABS: Anion Gap 13.6
[2023-08-26 06:43] LABS: Lactate/Lactic Acid 1.1 mmol/L (0.4-2.0)
[2023-08-26 06:44] LABS: Alanine Aminotransferase 22 U/L (16-63); Albumin Globulin Ratio 0.7; Albumin Level 2.8 g/dL (3.4-5.0); Alkaline Phosphatase 109 U/L (46-116); Aspartate Amino Transferase 37 U/L (15-37); BUN Creatinine Ratio 11.6; Bilirubin Total 0.5 mg/dL (0.2-1.0); Calcium 8.7 mg/dL (8.5-10.1); Carbon Dioxide 28.1 mmol/L (21.0-32.0); Chloride 98 mmol/L (98-107); Estimated GFR (African America >60 (>=60); Estimated GFR (Non-African Ame >60 (>=60); Globulin 4.3 g/dL; Glucose 94 mg/dL (74-106); Potassium 4.7 mmol/L (3.5-5.1); Sodium 135 mmol/L (136-145); Total Protein 7.1 g/dL (6.4-8.2); Troponin I High Sensitivity 9.9 pg/mL (4.0-76.1)
[2023-08-26 06:46] LABS: D Dimer 2.69 mg/L FEU (<=0.59)
[2023-08-26 06:50] LABS: Basophils Absolute Auto 0.1 10^3/uL (0.0-0.1); Basophils Percent Auto 0.3 % (0.2-2.0); Eosinophils Percent Auto 0.1 % (0.9-7.0); Hematocrit 36.5 % (42.0-54.0); Hemoglobin 12.2 g/dL (14.0-18.0); Immature Granulocytes Pct Auto 0.9 % (0.0-0.5); Lymphocytes Percent Auto 4.6 % (20.5-60.0); Mean Corpuscular HGB Conc 33.4 g/dL (29.9-35.2); Mean Corpuscular Hemoglobin 30.7 pg (25.9-34.0); Mean Corpuscular Volume 91.7 fL (80.0-94.0); Mean Platelet Volume 9.9 fL (9.5-13.5); Monocytes Absolute Auto 1.2 10^3/uL (0.3-0.8); Monocytes Percent Auto 5.6 % (1.7-12.0); Neutrophils Percent Auto 88.5 % (43.0-75.0); Platelet Count 334 10^3/uL (150-450); Red Blood Count 3.98 10^6/uL (4.70-6.10); Red Cell Distribution Width 13.3 % (11.0-15.0); White Blood Count 21.5 10^3/uL (4.0-11.0)
[2023-08-26] MEDS: LEVOFLOXACIN IN DEXTROSE 5 % 750 MG/150 ML IV.SOLN 100 MG IV (07:04)
[2023-08-26 07:21] LABS: PROCALCITONIN 5.05 ng/mL (0.00-0.50)
[2023-08-26] MEDS: ALBUTEROL SULFATE 2.5 MG/3 ML VIAL NEB IH (07:40)
--- NOTE | 2023-08-26 08:55 | ED.SOB1 ---
HPI - SOB/Dyspnea General Chief Complaint: Shortness of Breath/Dyspnea Stated Complaint: SOB Time Seen by Provider: 08/26/23 05:36 Source: patient Mode of arrival: Wheelchair Limitations: no limitations History of Present Illness HPI Narrative: The patient was initially seen by Dr. Castelan and signed out to me after discussing the case with him thoroughly. Please see his full history and physical. Related Data Home Medications Medication Instructions Recorded Confirmed albuterol sulfate 2.5 mg/3 mL mg 08/26/23 (0.083 %) solution for nebulization amitriptyline 50 mg tablet mg 08/26/23 amlodipine 5 mg tablet mg 08/26/23 baclofen 10 mg tablet mg 08/26/23 budesonide-formoterol HFA 160 inhalation 08/26/23 mcg-4.5 mcg/actuation aerosol inhaler (Symbicort) buspirone 15 mg tablet mg 08/26/23 clonazepam 1 mg tablet mg 08/26/23 duloxetine 60 mg capsule,delayed mg PO 08/26/23 release hydralazine 10 mg tablet mg 08/26/23 losartan 100 mg tablet mg 08/26/23 metoprolol tartrate 50 mg tablet mg 08/26/23 oxcarbazepine 300 mg tablet mg 08/26/23 oxycodone 10 mg tablet mg 08/26/23 pregabalin 200 mg capsule mg 08/26/23 primidone 50 mg tablet mg 08/26/23 Allergies Allergy/AdvReac Type Severity Reaction Status Date / Time paroxetine [From Paxil] Allergy Intermediate Hallucinati Verified 08/26/23 05:36 ng venlafaxine [From Effexor] Allergy Intermediate Hallucinati Verified 08/26/23 05:36 ng [facility] Social History Smoking status: Current every day smoker Exam Constitutional Vital Signs, click to edit/add: Last Vital Signs Temp 98.8 F 08/26/23 05:27 Pulse 120 H 08/26/23 08:20 Resp 24 08/26/23 08:20 BP 128/90 08/26/23 06:16 Pulse Ox 89 L 08/26/23 08:20 O2 Del Method Nasal Cannula 08/26/23 07:51 O2 Flow Rate 5 08/26/23 07:51 Course Vital Signs Vital signs: Vital Signs Temperature 98.8 F 08/26/23 05:27 Pulse Rate 114 H 08/26/23 05:27 Respiratory Rate 08/26/23 05:27 Blood Pressure 143/114 H 08/26/23 05:27 Pulse Oximetry 77 L 08/26/23 05:27 Oxygen Delivery Method Room Air 08/26/23 05:27 Temperature 98.8 F 08/26/23 05:27 Pulse Rate 120 H 08/26/23 08:20 Respiratory Rate 24 08/26/23 08:20 Blood Pressure 128/90 08/26/23 06:16 Pulse Oximetry 89 L 08/26/23 08:20 Oxygen Delivery Method Nasal Cannula 08/26/23 07:51 Oxygen Delivery Flow Rate 5 08/26/23 07:51 MDM - SOB/Dyspnea MDM Narrative Medical decision making narrative: X-ray and CAT scan show pneumonia and no pulmonary embolism. Respiratory panel is negative. WBC 21,000. Cultures were obtained and he was given IV Levaquin and is being admitted to the ICU. Findings are discussed with the patient. Differential Diagnosis Differential diagnosis: Likely acute exacerbation of chronic obstructive airways disease, congestive heart failure, community acquired pneumonia, pulmonary embolism and other (COVID, influenza) Lab Data Attestation: I reviewed the patient's lab results. Labs: Lab Results 08/26/23 08/26/23 08/26/23 Range/Units 05:40 06:07 06:10 WBC (4.0-11.0) 10^3/uL RBC (4.70-6.10) 10^6/uL Hgb (14.0-18.0) g/dL Hct (42.0-54.0) % MCV (80.0-94.0) fL MCH (25.9-34.0) pg MCHC (29.9-35.2) g/dL RDW (11.0-15.0) % Plt Count (150-450) 10^3/uL MPV (9.5-13.5) fL Neut % (Auto) (43.0-75.0) % Lymph % (Auto) (20.5-60.0) % [place] % (Auto) (1.7-12.0) % Eos % (Auto) (0.9-7.0) % Baso % (Auto) (0.2-2.0) % Neut # (Auto) (1.4-6.5) 10^3/uL Lymph # (Auto) (1.2-3.8) 10^3/uL [place] # (Auto) (0.3-0.8) 10^3/uL Eos # (Auto) (0.0-0.7) 10^3/uL Baso # (Auto) (0.0-0.1) 10^3/uL Abs Immat Gran (auto) (0.00-0.03) 10^3/uL Imm/Tot Granulo (auto) (0.0-0.5) % D-Dimer 2.69 H* (<=0.59) mg/L FEU Puncture Site Lr ABG pH 7.446 (7.350-7.450) ABG pCO2 39.2 (35.0-45.0) mmHg ABG pO2 56.1 L* (80.0-100.0) mmHg ABG HCO3 27.0 H (22.0-26.0) mmol/L ABG O2 Saturation 90.9 % ABG Base Excess 3.0 H (-2.0-2.0) mmol/L Ruiz Test Positive (POSITIVE) O2 Liters/Min 6 Sodium 135 L (136-145) mmol/L Potassium 4.7 (3.5-5.1) mmol/L Chloride 98 (98-107) mmol/L Carbon Dioxide 28.1 (21.0-32.0) mmol/L Anion Gap 13.6 BUN 10.0 (7.0-18.0) mg/dL Creatinine 0.86 (0.70-1.30) mg/dL Est GFR ( Amer) >60 (>=60) Est GFR (Non-Af Amer) >60 (>=60) BUN/Creatinine Ratio 11.6 Glucose 94 (74-106) mg/dL Lactate (0.4-2.0) mmol/L Calcium 8.7 (8.5-10.1) mg/dL Total Bilirubin 0.5 (0.2-1.0) mg/dL AST 37 (15-37) U/L ALT 22 (16-63) U/L Alkaline Phosphatase 109 (46-116) U/L Troponin I High Sens 9.9 (4.0-76.1) pg/mL NT-Pro-B Natriuret Pep 601.0 (<=900.0) pg/mL Total Protein 7.1 (6.4-8.2) g/dL Albumin 2.8 L (3.4-5.0) g/dL Globulin 4.3 g/dL Albumin/Globulin Ratio 0.7 Procalcitonin 5.05 H (0.00-0.50) ng/mL Adenovirus (PCR) Not detected (NOT DETECTE) C. pneumoniae DNA (PCR) Not detected (NOT DETECTE) Coronavirus Type OC43 Not detected (NOT DETECTE) Coronavirus Type HKU1 Not detected (NOT DETECTE) Coronavirus Type 229E Not detected (NOT DETECTE) Coronavirus Type NL63 Not detected (NOT DETECTE) Human Metapneumovir PCR Not detected (NOT DETECTE) M. pneumoniae (PCR) Not detected (NOT DETECTE) Parainfluenza PCR Not detected (NOT DETECTE) Parainfluenza 2 (PCR) Not detected (NOT DETECTE) Parainfluenza 3 (PCR) Not detected (NOT DETECTE) Parainfluenza 4 (PCR) Not detected (NOT DETECTE) RSV (RT-PCR) Not detected (NOT DETECTE) Entero/Rhino (PCR) Not detected (NOT DETECTE) SARS-CoV-2 (PCR) Not detected (NOT DETECTE) Bordetella pertussis (PCR) Not detected (NOT DETECTE) B parapertussis DNA PCR Not detected (NOT DETECTE) Influenza Type A (PCR) Not detected (NOT DETECTE) Influenza Type B (PCR) Not detected (NOT DETECTE) 08/26/23 08/26/23 Range/Units 06:15 06:37 WBC 21.5 H (4.0-11.0) 10^3/uL RBC 3.98 L (4.70-6.10) 10^6/uL Hgb 12.2 L (14.0-18.0) g/dL Hct 36.5 L (42.0-54.0) % MCV 91.7 (80.0-94.0) fL MCH 30.7 (25.9-34.0) pg MCHC 33.4 (29.9-35.2) g/dL RDW 13.3 (11.0-15.0) % Plt Count 334 (150-450) 10^3/uL MPV 9.9 (9.5-13.5) fL Neut % (Auto) 88.5 H (43.0-75.0) % Lymph % (Auto) 4.6 L (20.5-60.0) % [place] % (Auto) 5.6 (1.7-12.0) % Eos % (Auto) 0.1 L (0.9-7.0) % Baso % (Auto) 0.3 (0.2-2.0) % Neut # (Auto) 19.0 H (1.4-6.5) 10^3/uL Lymph # (Auto) 1.0 L (1.2-3.8) 10^3/uL [place] # (Auto) 1.2 H (0.3-0.8) 10^3/uL Eos # (Auto) 0.0 (0.0-0.7) 10^3/uL Baso # (Auto) 0.1 (0.0-0.1) 10^3/uL Abs Immat Gran (auto) 0.20 H (0.00-0.03) 10^3/uL Imm/Tot Granulo (auto) 0.9 H (0.0-0.5) % D-Dimer (<=0.59) mg/L FEU Puncture Site ABG pH (7.350-7.450) ABG pCO2 (35.0-45.0) mmHg ABG pO2 (80.0-100.0) mmHg ABG HCO3 (22.0-26.0) mmol/L ABG O2 Saturation % ABG Base Excess (-2.0-2.0) mmol/L Ruiz Test (POSITIVE) O2 Liters/Min Sodium (136-145) mmol/L Potassium (3.5-5.1) mmol/L Chloride (98-107) mmol/L Carbon Dioxide (21.0-32.0) mmol/L Anion Gap BUN (7.0-18.0) mg/dL Creatinine (0.70-1.30) mg/dL Est GFR ( Amer) (>=60) Est GFR (Non-Af Amer) (>=60) BUN/Creatinine Ratio Glucose (74-106) mg/dL Lactate 1.1 (0.4-2.0) mmol/L Calcium (8.5-10.1) mg/dL Total Bilirubin (0.2-1.0) mg/dL AST (15-37) U/L ALT (16-63) U/L Alkaline Phosphatase (46-116) U/L Troponin I High Sens (4.0-76.1) pg/mL NT-Pro-B Natriuret Pep (<=900.0) pg/mL Total Protein (6.4-8.2) g/dL Albumin (3.4-5.0) g/dL Globulin g/dL Albumin/Globulin Ratio Procalcitonin (0.00-0.50) ng/mL Adenovirus (PCR) (NOT DETECTE) C. pneumoniae DNA (PCR) (NOT DETECTE) Coronavirus Type OC43 (NOT DETECTE) Coronavirus Type HKU1 (NOT DETECTE) Coronavirus Type 229E (NOT DETECTE) Coronavirus Type NL63 (NOT DETECTE) Human Metapneumovir PCR (NOT DETECTE) M. pneumoniae (PCR) (NOT DETECTE) Parainfluenza PCR (NOT DETECTE) Parainfluenza 2 (PCR) (NOT DETECTE) Parainfluenza 3 (PCR) (NOT DETECTE) Parainfluenza 4 (PCR) (NOT DETECTE) RSV (RT-PCR) (NOT DETECTE) Entero/Rhino (PCR) (NOT DETECTE) SARS-CoV-2 (PCR) (NOT DETECTE) Bordetella pertussis (PCR) (NOT DETECTE) B parapertussis DNA PCR (NOT DETECTE) Influenza Type A (PCR) (NOT DETECTE) Influenza Type B (PCR) (NOT DETECTE) Imaging Data Chest x-ray: Radiologist's impression: ITS Impressions Chest X-Ray 08/26/23 05:53 IMPRESSION: 1. Right greater than left basilar opacities are concerning for pneumonia and/or aspiration changes. Electronically authenticated by: Farideh POP Date: 08/26/2023 06:13 Chest CTA 08/26/23 06:26 IMPRESSION: 1. No pulmonary embolism. 2. Moderate bilateral pulmonary infiltrates suggestive of multifocal pneumonia. Follow-up CT chest without contrast in 2 months to document clearing and to exclude underlying nodule/neoplasm is recommended. Electronically authenticated by: VERN LU Date: 08/26/2023 07:15 Discharge Plan Discharge Chief Complaint: Shortness of Breath/Dyspnea Clinical Impression: Acute infective exacerbation of chronic obstructive airway disease, Hypoxemia Community acquired pneumonia Qualifiers: Lung location: lower lobe of lung Patient Disposition: Admitted As Inpatient Time of Disposition Decision: 06:28
--- OUTSIDE RECORDS SUMMARY | 2023-08-26 09:47 | XMS_ITS | CCD ---
Author Name Unknown Address [address] [facility] [address] [place] [address] Organization [facility] Care Team Providers Care Artist'S Model Name Role Phone Tunde Das Admitting Unavailable Tunde Das Attending Unavailable Bubba Ghotra Primary Care Unavailable BUBBA GHOTRA Primary Care Physician [phone] Heri MURRELL Referring Unavailable Heri MURRELL Admitting [...] Unavailable JULIO ., DR VILLAGOMEZ Admitting Unavailable [place], DR CRUZITO [employer] Unavailable HEMEYER ., [...] Translations: [paroxetine] Drug Allergy Mild (qualifier value) [facility] (2 sources) PARoxetine Drug Allergy 3 [facility] Rep[facility] (12 sources) venlafaxine Drug Allergy 3 Unknown [facility] Repository Medications Current Medications Medication Drug Class(es) Dates Sig (Normalized) Sig (Original) [id number] 60 actuat albuterol 0.09 mg/actuat metered dose [...] procedure., # 14 tab(s), Refills(s) 0, Pharmacy: [facility]/pharmacy #[id number], 178, cm, 10/14/21 12:57:00 EDT, Height/Length [...] procedure, # 1 tab(s), Refills(s) 0, Pharmacy: [facility]/pharmacy #[id number], 178, cm, 10/14/21 12:57:00 EDT, Height/Length [...] 08/06/21 Status: Ordered take [address] capsule [address] [facility] every twenty-four hours DULoxetine HCl 60 MG [...] Status: Ordered take 1 capsule by [facility] once daily at bedtime Pregabalin 200 MG [...] bedtime Orally Once a day Active sennosides, half-way 8.6 mg oral tablet (9 sources) Start: [...] 3 Episodic Other aftercare (1 source) Other chcf (current) drug therapy; Translations: [OTH SHELTER CURRENT DRUG THERAPY] Onset: 3 Episodic Other [...] Amylase [Catalytic activity/Vol] 37 U/L Normal 25-115 [facility] Comment on above: Performed By: #### A MY, CMP, LIPA ####[facility] [address] [address]Dr. Cortez Younger CBC AUTO DIFFon 11-13-2022 BASO # 0.1 103/ul Normal 0.0-0.1 [facility] Comment on above: Performed By: #### C BC #### [facility] Laboratory [address] [address] [address] Cortez Younger Basophils/100 WBC (Bld) 1.3 % Normal 0.2-2.0 [facility] Comment on above: Performed By: #### C BC #### [facility] Laboratory [address] [address] [address] Cortez Younger EO # 0.1 103/ul Normal 0.0-0.7 [facility] Comment on above: Performed By: #### C BC #### [facility] Laboratory [address] [address] [address] Cortez Younger Eosinophils/100 WBC (Bld) 0.9 % Normal 0.9-7.0 [facility] Comment on above: Performed By: #### C BC #### [facility] Laboratory [address] [place] [address] Dr. Cortez Younger Erythrocyte distribution width (RBC) [Ratio] 12.5 % Normal 11.0-15.0 [facility] Comment on above: Performed By: #### C BC #### [facility] Laboratory [address] [place] [address] Dr. Cortez Younger Hematocrit (Bld) [Volume fraction] 42.3 % Normal 42.0-54.0 [facility] Comment on above: Performed By: #### C BC #### [facility] Laboratory [address] [place] [address] Dr. Cortez Younger Hemoglobin (Bld) [Mass/Vol] 15.1 g/dL Normal 14.0-18.0 [facility] Comment on above: Performed By: #### C BC #### [facility] Laboratory [address] [place] [address] Dr. Cortez Younger IG # 0.04 10e3/ul Critically high 0.00-0.03 [facility] Comment on above: Performed By: #### C BC #### [facility] Laboratory [address] [place] [address] Dr. Cortez Younger IG % 0.6 % Critically high 0.0-0.5 [facility] Comment on above: Performed By: #### C BC #### [facility] Laboratory [address] [place] [address] Dr. Cortez Younger LYMPH # 1.4 103/ul Normal 1.2-3.8 [facility] Comment on above: Performed By: #### C BC #### [facility] Laboratory [address] [place] [address] Dr. Cortez Younger Lymphocytes/100 WBC (Bld) 20.7 % Normal 20.5-60.0 [facility] Comment on above: Performed By: #### C BC #### [facility] Laboratory [address] [place] [address] Dr. Cortez Younger MANUAL DIFF REQ NO Normal [facility] Comment on above: Performed By: #### C BC #### [facility] Laboratory [address] [place] [address] Dr. Cortez Younger MCH (RBC) [Entitic mass] 31.6 pg Normal 25.9-34.0 [facility] Comment on above: Performed By: #### C BC #### [facility] Laboratory [address] [place] [address] Dr. Cortez Younger MCHC (RBC) [Mass/Vol] 35.7 g/dL Critically high 29.9-35.2 [facility] Comment on above: Performed By: #### C BC #### [facility] Laboratory [address] [place] [address] Dr. Cortez Younger MCV (RBC) [Entitic vol] 88.5 fL Normal 80.0-94.0 [facility] Comment on above: Performed By: #### C BC #### [facility] Laboratory [address] [place] [address] Dr. Cortez Younger MONO # 0.5 103/ul Normal 0.3-0.8 [facility] Comment on above: Performed By: #### C BC #### [facility] Laboratory [address] [place] [address] Dr. Cortez Younger Monocytes/100 WBC (Bld) 7.7 % Normal 1.7-12.0 [facility] Comment on above: Performed By: #### C BC #### [facility] Laboratory [address] [place] [address] Dr. Cortez Younger NEUT # 4.8 103/ul Normal 1.4-6.5 [facility] Comment on above: Performed By: #### C BC #### [facility] Laboratory [address] [place] [address] Dr. Cortez Younger Neutrophils/100 WBC (Bld) 68.8 % Normal 43.0-75.0 [facility] Comment on above: Performed By: #### C BC #### [facility] Laboratory [address] [place] [address] Dr. Cortez Younger Platelet mean volume (Bld) [Entitic vol] 9.0 fL Critically low 9.5-13.5 [facility] Comment on above: Performed By: #### C BC #### [facility] Laboratory [address] [address] [address] Cortez Younger PLT 384 103/ul Normal 150-450 [facility] Comment on above: Performed By: #### C BC #### [facility] Laboratory [address] [address] [address] Cortez Younger RBC 4.78 106/ul Normal 4.70-6.10 [facility] Comment on above: Performed By: #### C BC #### [facility] Laboratory [address] [address] [address] Cortez Younger WBC 7.0 103/ul Normal 4.0-11.0 [facility] Comment on above: Performed By: #### C BC #### [facility] Laboratory [address] [place] [address] Dr. Cortez Younger ER URINE PROFILEon 3 Bilirubin Ql (U) Negative Normal NEGATIVE [facility] Comment on above: Performed By: #### E RUR ####[facility] [address] [place], [place] [address]Dr. Cortez Younger Clarity (U) CLEAR Normal CLEAR [facility] Comment on above: Performed By: #### E RUR ####[facility] [address] [place], [place] [address]Dr. Cortez Younger Color (U) LT. YELLOW Normal YELLOW [facility] Comment on above: Performed By: #### E RUR ####[facility] [address] [place], [place] [address]Dr. Cortez Younger ERUAHD A micrscopic examina tion will be performed if indicated. Normal [facility] Comment on above: Performed By: #### E RUR ####[facility] X[address] [place], [place] [address]Dr. Cortez Younger Glucose Ql (U) Negative Normal NEGATIVE [facility] Comment on above: Performed By: #### E RUR ####[facility] X[address] [place], [place] [address]Dr. Cortez Younger Hemoglobin Ql (U) Negative Normal NEGATIVE [facility] Comment on above: Performed By: #### E RUR ####[facility] [address] [address]Dr. Cortez Younger Ketones Ql (U) Negative Normal NEGATIVE [facility] Comment on above: Performed By: #### E RUR ####[facility] [address] [address]Dr. Cortez Younger LEUKOCYTES Negative Normal NEGATIVE [facility] Comment on above: Performed By: #### E RUR ####[facility] K[address] [place], [place] [address]Dr. Cortez Younger Nitrite Ql (U) Negative Normal NEGATIVE [facility] Comment on above: Performed By: #### E RUR ####[facility] J[address] [place], [place] [address]Dr. Cortez Younger pH (U) 7.5 [pH] Normal 5-9 [facility] Comment on above: Performed By: #### E RUR ####[facility] T[address] [place], [place] [address]Dr. Cortez Younger SPEC GRAVITY <=1.005 Abnormal 1.005-<=1.025 [facility] Comment on above: Performed By: #### E RUR ####[facility] Ap[address] [place], [place] [address]Dr. Cortez Younger UA PROTEIN Negative Normal NEGATIVE/ TRACE [facility] Comment on above: Performed By: #### E RUR ####[facility] [address] [place], [place] [address]Dr. Cortez Younger UR MICRO IND NOT INDICATED Normal [facility] Comment on above: Performed By: #### E RUR ####[facility] [address] [place], [place] [address]Dr. Cortez Younger Urobilinogen Qn (U) 0.2 {Fidelia'U}/dL Normal 0.2 - 1. 0 [facility] Comment on above: Performed By: #### E RUR ####[facility] R[address] [place], [place] [address]Dr. Cortez Younger LIPASEon 05-04-2023 Lipase [Catalytic activity/Vol] 111.0 U/L Normal 73.0-393.0 [facility] Comment on above: Performed By: #### A MY, CMP, LIPA ####[facility] [address] [address]Dr. Cortez Younger PROF 14(COMP METB)on 023 Albumin [Mass/Vol] 3.9 g/dL Normal 3.4-5.0 [facility] Comment on above: Performed By: #### A MY, CMP, LIPA ####[facility] [address] [id number]. Cortez Younger Albumin/Globulin [Mass ratio] 1.4 {ratio} Normal [facility] Comment on above: Performed By: #### A MY, CMP, LIPA ####[facility] [address] [address]Dr. Cortez Younger ALP [Catalytic activity/Vol] 70 U/L Normal 46-116 [facility] Comment on above: Performed By: #### A MY, CMP, LIPA ####[facility] [address] [address]Dr. Cortez Younger ALT [Catalytic activity/Vol] 24 U/L Normal 16-63 [facility] Comment on above: Performed By: #### A MY, CMP, LIPA ####[facility] [address] [address]Dr. Cortez Younger Anion gap [Moles/Vol] 9.8 mmol/L Normal [facility] Comment on above: Performed By: #### A MY, CMP, LIPA ####[facility] [address] [id number]. Cortez Younger AST [Catalytic activity/Vol] 12 U/L Critically low 15-37 [facility] Comment on above: Performed By: #### A MY, CMP, LIPA ####[facility] [address] [address]Dr. Cortez Younger Bilirubin [Mass/Vol] 0.3 mg/dL Normal 0.2-1.0 [facility] Comment on above: Performed By: #### A MY, CMP, LIPA ####[facility] [address] [address]Dr. Cortez Younger Calcium [Mass/Vol] 9.2 mg/dL Normal 8.5-10.1 [facility] Comment on above: Performed By: #### A MY, CMP, LIPA ####[facility] Y[address] [place], [place] [address]Dr. Cortez Younger Chloride [Moles/Vol] 98 mmol/L Normal 98-107 [facility] Comment on above: Performed By: #### A MY, CMP, LIPA ####[facility] U[address] [place], [place] [address]Dr. Cortez Younger CO2 [Moles/Vol] 28.7 mmol/L Normal 21.0-32.0 [facility] Comment on above: Performed By: #### A MY, CMP, LIPA ####[facility] [address] [place], [place] [address]Dr. Cortez Younger Creatinine [Mass/Vol] 0.88 mg/dL Normal 0.70-1.30 [facility] Comment on above: Performed By: #### A MY, CMP, LIPA ####[facility] [address] [place], [place] [address]Dr. Cortez Younger EGFR-AF PALESTINIAN >60 Normal >=60 [facility] Comment on above: Performed By: #### A MY, CMP, LIPA ####[facility] [address] [place], [place] [address]Dr. Cortez Younger EGFR-NON AF PALESTINIAN >60 Normal >=60 [facility] Comment on above: Performed By: #### A MY, CMP, LIPA ####[facility] Hbq[address]bwi[address] [place], [place] [address]Dr. Cortez Younger Globulin (S) [Mass/Vol] 2.7 g/dL Normal [facility] Comment on above: Performed By: #### A MY, CMP, LIPA ####[facility] [address] [place], [place] [address]Dr. Cortez Younger Glucose [Mass/Vol] 105 mg/dL Normal 74-106 [facility] Comment on above: Performed By: #### A MY, CMP, LIPA ####[facility] [address] [address]Dr. Cortez Younger Potassium [Moles/Vol] 3.5 mmol/L Normal 3.5-5.1 [facility] Comment on above: Performed By: #### A MY, CMP, LIPA ####[facility] [address] [address]Dr. Cortez Younger Protein [Mass/Vol] 6.6 g/dL Normal 6.4-8.2 [facility] Comment on above: Performed By: #### A MY, CMP, LIPA ####[facility] [address] [address]Dr. Cortez Younger Sodium [Moles/Vol] 133 mmol/L Critically low 136-145 [facility] Comment on above: Performed By: #### A MY, CMP, LIPA ####[facility] [address] [address]Dr. Cortez Younger Urea nitrogen [Mass/Vol] 4.0 mg/dL Critically low 7.0-18.0 [facility] Comment on above: Performed By: #### A MY, CMP, LIPA ####[facility] [address] [address]Dr. Cortez Younger Urea nitrogen/Creatinine [Mass ratio] 4.5 mg/mg Normal [facility] Comment on above: Performed By: #### A MY, CMP, LIPA ####[facility] [address] [address]Dr. Cortez Younger XR ABD FLAT UP_PA Farideh [...] by: CRUZITO CRENSHAW Date: 2022-11-13 13:22 Normal [facility] FREE T4on 10-31-2022 Free T4 [Mass/Vol] 1.03 ng/dL Normal 0.76-1.46 [facility] Comment on above: Performed By: #### E RUR #### [facility] Laboratory [address] [place] [address] Dr. Cortez Younger LIPID PROFILEon 10-31-2022 CHOL-HDL RATIO NORM SEE BELOW Normal [facility] Comment on above: Result Comment: 3.3 - 4.4 LOW RISK 4.4 - 7.1 AVERAGE RISK 7.1 - 11.0 MODERATE RISK >11.0 HIGH RISK Performed By: #### E RUR #### [facility] Laboratory [address] [place] [address] Dr. Cortez Younger Cholesterol [Mass/Vol] 165 mg/dL Normal <=200 [facility] Comment on above: Performed By: #### E RUR #### [facility] Laboratory [address] [address] [address] Cortez Younger Cholesterol in HDL [Mass/Vol] 59 mg/dL Normal 40-60 [facility] Comment on above: Performed By: #### E RUR #### [facility] Laboratory [address] [place] [address] Dr. Cortez Younger Cholesterol in LDL [Mass/Vol] 83.8 mg/dL Normal [facility] Comment on above: Performed By: #### E RUR #### [facility] Laboratory [address] [address] [address] Cortez Younger Cholesterol.total/C holesterol in HDL [Mass ratio] 2.8 {ratio} Normal [facility] Comment on above: Performed By: #### E RUR #### [facility] Laboratory [address] [place] [address] Dr. Cortez Younger HDL NORMAL > or = 60 mg/dl - LO W CARDIOVASCULAR RISK <40 mg/dl - HIGH CARDIOVASCULAR RISK Normal [facility] Comment on above: Performed By: #### E RUR #### [facility] Laboratory [address] [address] [address] Cortez Younger LDL CALC NORMAL SEE BELOW Normal [facility] Comment on above: Result Comment: <100 mg/dl OPTIMAL 100 - 129 mg/dl NEAR OR ABOVE OPTIMAL 130 - 159 mg/dl BORDERLINE HIGH 160 - 189 mg/dl HIGH >190 mg/dl VERY HIGH Performed By: #### E RUR #### [facility] Laboratory [address] [address] [address] Cortez Younger Triglyceride [Mass/Vol] 111 mg/dL Normal <=150 [facility] Comment on above: Performed By: #### E RUR #### [facility] Laboratory [address] [place] [address] Dr. Cortez Younger VLDL CALC 22.2 mg/dL Normal [facility] Comment on above: Performed By: #### E RUR #### [facility] Laboratory [address] [place] [address] Dr. Cortez Younger MRI BRAIN WO W [...] VERN LU Date: 2022-10-31 13:12 Normal [facility] PROF 14(COMP METB)on 023 Albumin [Mass/Vol] 4.0 g/dL Normal 3.4-5.0 [facility] Comment on above: Performed By: #### C MP ####[facility] [address] [address]Dr. Cortez Younger Albumin/Globulin [Mass ratio] 1.3 {ratio} Normal [facility] Comment on above: Performed By: #### C MP ####[facility] [address] [address]Dr. Cortez Younger ALP [Catalytic activity/Vol] 66 U/L Normal 46-116 [facility] Comment on above: Performed By: #### C MP ####[facility] [address] [address]Dr. Cortez Younger ALT [Catalytic activity/Vol] 21 U/L Normal 16-63 [facility] Comment on above: Performed By: #### C MP ####[facility] [address] [address]Dr. Cortez Younger Anion gap [Moles/Vol] 9.4 mmol/L Normal [facility] Comment on above: Performed By: #### C MP ####[facility] [address] [address]Dr. Cortez Younger AST [Catalytic activity/Vol] 10 U/L Critically low 15-37 [facility] Comment on above: Performed By: #### C MP ####[facility] [address] [address]Dr. Cortez Younger Bilirubin [Mass/Vol] 0.4 mg/dL Normal 0.2-1.0 [facility] Comment on above: Performed By: #### C MP ####[facility] [address] [address]Dr. Cortez Younger Calcium [Mass/Vol] 9.1 mg/dL Normal 8.5-10.1 [facility] Comment on above: Performed By: #### C MP ####[facility] [address] [address]Dr. Cortez Younger Chloride [Moles/Vol] 98 mmol/L Normal 98-107 [facility] Comment on above: Performed By: #### C MP ####[facility] [address] [id number]. Cortez Younger CO2 [Moles/Vol] 29.8 mmol/L Normal 21.0-32.0 [facility] Comment on above: Performed By: #### C MP ####[facility] [address] [address]Dr. Cortez Younger Creatinine [Mass/Vol] 0.89 mg/dL Normal 0.70-1.30 [facility] Comment on above: Performed By: #### C MP ####[facility] [address] [place], [place] [address]Dr. Cortez Younger EGFR-AF PALESTINIAN >60 Normal >=60 [facility] Comment on above: Performed By: #### C MP ####[facility] [address] [address]Dr. Cortez Younger EGFR-NON AF PALESTINIAN >60 Normal >=60 [facility] Comment on above: Performed By: #### C MP ####[facility] [address] [address]Dr. Cortez Younger Globulin (S) [Mass/Vol] 3.1 g/dL Normal [facility] Comment on above: Performed By: #### C MP ####[facility] [address] [address]Dr. Cortez Younger Glucose [Mass/Vol] 109 mg/dL Critically high 74-106 [facility] Comment on above: Performed By: #### C MP ####[facility] [facility] [place] [id number] [address]Dr. Cortez Younger Potassium [Moles/Vol] 4.2 mmol/L Normal 3.5-5.1 [facility] Comment on above: Performed By: #### C MP ####[facility] [place] [address] [phone]. Cortez Younger Protein [Mass/Vol] 7.1 g/dL Normal 6.4-8.2 [facility] Comment on above: Performed By: #### C MP ####[facility] [place] [address] [place] [phone]. Cortez Younger Sodium [Moles/Vol] 133 mmol/L Critically low 136-145 Th [facility] Comment on above: Performed By: #### C MP ####[facility] [place] [address] [address]Dr. Cortez Younger Urea nitrogen [Mass/Vol] 7.0 mg/dL Normal 7.0-18.0 [facility] Comment on above: Performed By: #### C MP ####[facility] [place] [address] [place] [place] [address]Dr. Cortez Younger Urea nitrogen/Creatinine [Mass ratio] 7.9 mg/mg Normal [facility] Comment on above: Performed By: #### C MP ####[facility] [place] [address] [address]Dr. Cortez Younger TSHon 10-31-2022 TSH 1.574 uIU/mL Normal 0.358-3.740 [facility] Comment on above: Performed By: #### T SH #### [facility] [place] Laboratory [address] [place] [address] Dr. Cortez Younger COMPLIANCE DRUG SCREENon PDF . [facility] Comment on above: Performed By: #### E RUR #### [facility] [place] Laboratory [address] [place] [address] Dr. Cortez Younger Summary FINAL Normal [facility] Comment on above: Result Comment: == TOXASSURE [...] test is not intended to distinguish between yhrsq-7-fhvbmupusoatmlohevye, the predominant form of THC in most herbal or marijuana-based products, and cprmv-6-kkqnxrhrghsxaveruess. Norhydrocodone 1620 ng/mg creat Norhydrocodone is an [...] == Performed By: #### E RUR #### [facility] [place] Laboratory [address] [place] [address] Dr. Cortez Younger HYDROCODONE AND METABOLITE, URINEon 10-24-2022 Hydrocodone 55 ng/mL Normal [facility] Comment on above: Performed By: #### E RUR #### [facility] [place] Laboratory [address] [place] [address] Dr. Cortez Younger Hydromorphone Negative Normal [facility] Comment on above: Result Comment: This test was developed and its performance characteristics determined by [employer]. It has not been cleared or approved by the Food and Drug Administration. Performed By: #### E RUR #### [facility] [place] Laboratory [address] [place] [address] Dr. Cortez Younger OSMOLALITYon 10-20-2022 Osmolality QNSREP Normal [facility] Comment on above: Result Comment: Spec imen quantity insufficient for verification by repeat analysis. contacted Lynda at your facility on 10-20-2022 Performed By: #### C BC #### [facility] [place] Laboratory [address] [place] [address] Dr. Cortez Younger OSMOLALITY URINEon Osmolality, Urine 119 mOsmol/kg Normal [facility] Comment on above: Result Comment: 24 h r : 300 - 900 Random: 50 - 1400 After 12hr fluid restriction: >850 Performed By: #### O SMOU ####[facility] [place] [address] [address]Dr. Cortez Younger CBC AUTO DIFFon 10-16-2022 BASO # 0.0 103/ul Normal 0.0-0.1 [facility] [place] Comment on above: Performed By: #### C BC ####[facility] [place] [address] [place] [phone]. Cortez Younger Basophils/100 WBC (Bld) 0.3 % Normal 0.2-2.0 The [facility] [place] Comment on above: Performed By: #### C BC ####[facility] [place] [address] [place] [address]Dr. Cortez Younger EO # 0.0 103/ul Normal 0.0-0.7 [facility] [place] Comment on above: Performed By: #### C BC ####[facility] [place] [id number] [place], [place] [address]Dr. Cortez Younger Eosinophils/100 WBC (Bld) 0.2 % Critically low 0.9-7.0 [facility] [place] Comment on above: Performed By: #### C BC ####[facility] [place] [id number] [place], [place] [address]Dr. Cortez Younger Erythrocyte distribution width (RBC) [Ratio] 12.1 % Normal 11.0-15.0 The [facility] [place] Comment on above: Performed By: #### C BC ####[facility] [place] [address] [place], [place] [address]Dr. Cortez Younger Hematocrit (Bld) [Volume fraction] 45.9 % Normal 42.0-54.0 [facility] [place] Comment on above: Performed By: #### C BC ####[facility] [place] [address] [place], [place] [address]Dr. Cortez Younger Hemoglobin (Bld) [Mass/Vol] 16.7 g/dL Normal 14.0-18.0 [facility] [place] Comment on above: Performed By: #### C BC ####[facility] [place] [address] [place] [address]Dr. Cortez Aren IG # 0.06 10e3/ul Critically high 0.00-0.03 [facility] Comment on above: Performed By: #### C BC ####[facility] [place] [address] [place] [phone]. Eleanorvalerie Younger IG % 0.5 % Normal 0.0-0.5 [facility] [place] Comment on above: Performed By: #### C BC ####[facility] [place] [address] [place] [address]Dr. Cortez Aren LYMPH # 1.5 103/ul Normal 1.2-3.8 [facility] [place] Comment on above: Performed By: #### C BC ####[facility] [place] [address] [place] [address]Dr. Eleanorvalerie Younger Lymphocytes/100 WBC (Bld) 13.5 % Critically low 20.5-60.0 [facility] [place] Comment on above: Performed By: #### C BC ####[facility] [place] [address] [place] [address]Dr. Eleanorvalerie Younger MANUAL DIFF REQ NO Normal [facility] Comment on above: Performed By: #### C BC ####[facility] [place] [address] [place] [phone]. Cortez Aren MCH (RBC) [Entitic mass] 31.2 pg Normal 25.9-34.0 [facility] [place] Comment on above: Performed By: #### C BC ####[facility] [place] [address] [place] [address]Dr. Cortez Younger MCHC (RBC) [Mass/Vol] 36.4 g/dL Critically high 29.9-35.2 [facility] [place] Comment on above: Performed By: #### C BC ####[facility] [place] [address] [place] [phone]. Cortez Aren MCV (RBC) [Entitic vol] 85.6 fL Normal 80.0-94.0 [facility] [place] Comment on above: Performed By: #### C BC ####[facility] [place] [address] [place], [place] [address]Dr. Cortez Younger MONO # 0.6 103/ul Normal 0.3-0.8 The [facility] [place] Comment on above: Performed By: #### C BC ####[facility] [place] [address] [place] [phone]. Cortez Younger Monocytes/100 WBC (Bld) 5.4 % Normal 1.7-12.0 The [facility] [place] Comment on above: Performed By: #### C BC ####[facility] [place] [address] [place] [phone]. Cortez Younger NEUT # 8.9 103/ul Critically high 1.4-6.5 [facility] Comment on above: Performed By: #### C BC ####[facility] [place] [address] [place] [phone]. Cortez Younger Neutrophils/100 WBC (Bld) 80.1 % Critically high 43.0-75.0 [facility] [place] Comment on above: Performed By: #### C BC ####[facility] [place] [address] [place] [address]Dr. Cortez Younger Platelet mean volume (Bld) [Entitic vol] 9.7 fL Normal 9.5-13.5 The [facility] [place] Comment on above: Performed By: #### C BC ####[facility] [place] [address] [place] [phone]. Cortez Younger PLT 364 103/ul Normal 150-450 [facility] [place] Comment on above: Performed By: #### C BC ####[facility] [place] [address] [place] [phone]. Cortez Younger RBC 5.36 106/ul Normal 4.70-6.10 [facility] [place] Comment on above: Performed By: #### C BC ####[facility] [place] [address] [place] [phone]. Cortez Younger WBC 11.1 103/ul Critically high 4.0-11.0 [facility] Comment on above: Performed By: #### C BC ####[facility] [place] [address] [place], [place] [address]Dr. Cortez Younger Covid-19 PCR (CVDTB)on SARS-CoV-2 (COVID-19) RNA AXEL+probe Ql (Unsp spec) Not detected Normal NOT DETECTED [facility] [place] Comment on above: Result Comment: When diagnostic [...] for this test is supported by the Title Curative Specialist of Health and Human Service's declaration that [...] be used). Performed By: #### C VDTB ####[facility] [place] [address] [place] [address]Dr. Cortez Younger DRUG SCREEN RAPID (URINE)on 10-16-2022 AMP Negative Normal NEGATIVE [facility] Comment on above: Performed By: #### C BC #### [facility] [place] Laboratory [address] [place] [address] Dr. Cortez Younger BAR Positive Abnormal NEGATIVE [facility] Comment on above: Performed By: #### C BC #### [facility] [place] Laboratory [address] [place] [address] Dr. Cortez Younger BUP Negative Normal NEGATIVE [facility] Comment on above: Performed By: #### C BC #### [facility] [place] Laboratory [address] [place] [address] Dr. Cortez Younger BZO Positive Abnormal NEGATIVE [facility] Comment on above: Performed By: #### C BC #### [facility] [place] Laboratory [address] [place] [address] Dr. Cortez Younger OK Negative Normal NEGATIVE [facility] Comment on above: Performed By: #### C BC #### [facility] [place] Laboratory [address] [place] [address] Dr. Cortez Younger CUT-OFFS SEE BELOW Normal [facility] [place] Comment on above: Result Comment: AMP (Amphetamine): 500ng/mL, BAR (Barbituates): 200 ng/mL, BZO (Benzodiazepines): 150 ng/mL, BUP (Buprenorphine): 10 ng/mL, OK (Cocaine): 150 ng/mL, mAMP (Methamphetamine): 500 ng/mL, MTD (Methadone): 200 ng/mL, OPI (Opiates): 100 ng/mL, OXY (Oxycodone): 100 ng/mL, PCP (Phencyclidine): 25 ng/mL, PPX (Propoxyphene): 300 ng/mL, THC (Cannabinoids): 50 ng/mL, TCA (Trycyclic Antidepressants): 300 ng/mL Performed By: #### C BC #### [facility] [place] Laboratory [address] [place] [address] Dr. Cortez Younger DRUG CUT HEADER DRUG CLASS TEST SYST EM CUT-OFF CONCENTRATIONS ARE FOLLOWS: Normal [facility] Comment on above: Performed By: #### C BC #### [facility] [place] Laboratory [address] [place] [address] Dr. Cortez Younger mAMP Negative Normal NEGATIVE [facility] Comment on above: Performed By: #### C BC #### [facility] [place] Laboratory [address] [place] [address] Dr. Cortez Younger MTD Negative Normal NEGATIVE [facility] Comment on above: Performed By: #### C BC #### [facility] [place] Laboratory [address] [place] [address] Dr. Cortez Younger OPI Positive Abnormal NEGATIVE [facility] Comment on above: Performed By: #### C BC #### [facility] [place] Laboratory [address] [place] [address] Dr. Cortez Younger OXY Negative Normal NEGATIVE [facility] Comment on above: Performed By: #### C BC #### [facility] [place] Laboratory [address] [place] [address] Dr. Cortez Younger PCP Negative Normal NEGATIVE [facility] Comment on above: Performed By: #### C BC #### [facility] [place] Laboratory [address] [place] [address] Dr. Cortez Younger PPX Negative Normal NEGATIVE [facility] Comment on above: Performed By: #### C BC #### [facility] [place] Laboratory [address] [place] [address] Dr. Cortez Younger TCA Negative Normal NEGATIVE [facility] Comment on above: Performed By: #### C BC #### [facility] [place] Laboratory [address] [place] [address] Dr. Cortez Younger THC Positive Abnormal NEGATIVE [facility] Comment on above: Performed By: #### C BC #### [facility] [place] Laboratory [address] [place] [address] Dr. Cortez Younger ER URINE PROFILEon 3 Bilirubin Ql (U) Negative Normal NEGATIVE [facility] Comment on above: Performed By: #### C BC #### [facility] [place] Laboratory [address] [place] [address] Dr. Cortez Younger Clarity (U) CLEAR Normal CLEAR [facility] Comment on above: Performed By: #### C BC #### [facility] [place] Laboratory [address] [place] [address] Dr. Cortez Younger Color (U) LT. YELLOW Normal YELLOW [facility] Comment on above: Performed By: #### C BC #### [facility] [place] Laboratory [address] [place] [address] Dr. Cortez Younger ERUAHD A micrscopic examina tion will be performed if indicated. Normal [facility] [place] Comment on above: Performed By: #### C BC #### [facility] [place] Laboratory [address] [place] [address] Dr. Cortez Younger Glucose Ql (U) Negative Normal NEGATIVE [facility] Comment on above: Performed By: #### C BC #### [facility] [place] Laboratory [address] [place] [address] Dr. Cortez Younger Hemoglobin Ql (U) Negative Normal NEGATIVE [facility] Comment on above: Performed By: #### C BC #### [facility] [place] Laboratory [address] [place] [address] Dr. Cortez Younger Ketones Ql (U) Negative Normal NEGATIVE [facility] Comment on above: Performed By: #### C BC #### [facility] [place] Laboratory [address] [place] [address] Dr. Cortez Younger LEUKOCYTES Negative Normal NEGATIVE [facility] Comment on above: Performed By: #### C BC #### [facility] [place] Laboratory [address] [address] [address] Cortez Younger Nitrite Ql (U) Negative Normal NEGATIVE [facility] Comment on above: Performed By: #### C BC #### [facility] [place] Laboratory [address] [place] [address] Dr. Cortez Younger pH (U) 7.5 [pH] Normal 5-9 [facility] Comment on above: Performed By: #### C BC #### [facility] [place] Laboratory [address] [place] [address] Dr. Cortez Younger SPEC GRAVITY <=1.005 Abnormal 1.005-<=1.025 [facility] Comment on above: Performed By: #### C BC #### [facility] [place] Laboratory [address] [place] [address] Dr. Cortez Younger UA PROTEIN Negative Normal NEGATIVE/ TRACE [facility] [place] Comment on above: Performed By: #### C BC #### [facility] [place] Laboratory [address] [place] [address] Dr. Cortez Yuonger UR MICRO IND NOT INDICATED Normal [facility] Comment on above: Performed By: #### C BC #### [facility] [place] Laboratory [address] [place] [address] Dr. Cortez Younger Urobilinogen Qn (U) 0.2 {Fidelia'U}/dL Normal 0.2 - 1. 0 [facility] Comment on above: Performed By: #### C BC #### [facility] [place] Laboratory [address] [place] [address] Dr. Cortez Younger NAon 10-16-2022 Sodium [Moles/Vol] 125 mmol/L Critically low 136-145 Th [facility] Comment on above: Performed By: #### E RUR #### [facility] [place] Laboratory [address] [place] [address] Dr. Cortez Younger POTASSIUM URINEon 10-16-2022 UR POTASSIUM 11.8 mmol/L Normal [facility] Comment on above: Performed By: #### K U ####[facility] [place] [address] [place] [address]Dr. Cortez Younger PROF 14(COMP METB)on 023 Albumin [Mass/Vol] 4.2 g/dL Normal 3.4-5.0 [facility] Comment on above: Performed By: #### E RUR #### [facility] [place] Laboratory [address] [address] [address] Cortez Younger Albumin/Globulin [Mass ratio] 1.3 {ratio} Normal [facility] Comment on above: Performed By: #### E RUR #### [facility] [place] Laboratory [address] [address] [address] Cortez Younger ALP [Catalytic activity/Vol] 75 U/L Normal 46-116 [facility] Comment on above: Performed By: #### E RUR #### [facility] [place] Laboratory [address] [place] [address] Dr. Cortez Younger ALT [Catalytic activity/Vol] 23 U/L Normal 16-63 [facility] Comment on above: Performed By: #### E RUR #### [facility] [place] Laboratory [address] [place] [address] Dr. Cortez Younger Anion gap [Moles/Vol] 9.7 mmol/L Normal [facility] Comment on above: Performed By: #### E RUR #### [facility] [place] Laboratory [address] [place] [address] Dr. Cortez Younger AST [Catalytic activity/Vol] 16 U/L Normal 15-37 [facility] Comment on above: Performed By: #### E RUR #### [facility] [place] Laboratory [address] [place] [address] Dr. Cortez Younger Bilirubin [Mass/Vol] 0.4 mg/dL Normal 0.2-1.0 [facility] Comment on above: Performed By: #### E RUR #### [facility] [place] Laboratory [address] [place] [address] Dr. Cortez Younger Calcium [Mass/Vol] 9.1 mg/dL Normal 8.5-10.1 [facility] Comment on above: Performed By: #### E RUR #### [facility] [place] Laboratory [address] [address] [address] Cortez Younger Chloride [Moles/Vol] 88 mmol/L Critically low 98-107 [facility] [place] Comment on above: Performed By: #### E RUR #### [facility] [place] Laboratory [address] [place] [address] Dr. Cortez Younger CO2 [Moles/Vol] 26.5 mmol/L Normal 21.0-32.0 [facility] Comment on above: Performed By: #### E RUR #### [facility] [place] Laboratory [address] [place] [address] Dr. Cortez Younger Creatinine [Mass/Vol] 0.73 mg/dL Normal 0.70-1.30 [facility] [place] Comment on above: Performed By: #### E RUR #### [facility] [place] Laboratory [address] [place] [address] Dr. Cortez Younger EGFR-AF PALESTINIAN >60 Normal >=60 [facility] Comment on above: Performed By: #### E RUR #### [facility] [place] Laboratory [address] [place] [address] Dr. Cortez Younger EGFR-NON AF PALESTINIAN >60 Normal >=60 [facility] Comment on above: Performed By: #### E RUR #### [facility] [place] Laboratory [address] [place] [address] Dr. Cortez Younger Globulin (S) [Mass/Vol] 3.2 g/dL Normal [facility] Comment on above: Performed By: #### E RUR #### [facility] [place] Laboratory [address] [address] [address] Cortez Younger Glucose [Mass/Vol] 109 mg/dL Critically high 74-[address] [facility] Comment on above: Performed By: #### E RUR #### [facility] [place] Laboratory [address] [place] [address] Dr. Cortez Younger Potassium [Moles/Vol] 4.2 mmol/L Normal 3.5-5.1 [facility] [place] Comment on above: Performed By: #### E RUR #### [facility] [place] Laboratory [address] [place] [address] Dr. Cortez Younger Protein [Mass/Vol] 7.4 g/dL Normal 6.4-8.2 [facility] Comment on above: Performed By: #### E RUR #### [facility] [place] Laboratory [address] [address] [address] Cortez Younger Sodium [Moles/Vol] 120 mmol/L Critically low 136-145 Th [facility] Comment on above: Performed By: #### E RUR #### [facility] [place] Laboratory [address] [address] [address] Cortez Younger Urea nitrogen [Mass/Vol] 7.0 mg/dL Normal 7.0-18.0 [facility] Comment on above: Performed By: #### E RUR #### [facility] [place] Laboratory [address] [address] [address] Cortez Younger Urea nitrogen/Creatinine [Mass ratio] 9.6 mg/mg Normal [facility] Comment on above: Performed By: #### E RUR #### [facility] [place] Laboratory [address] [address] [address] Cortez Younger SODIUM RANDOM URINEon 2022 Sodium (U) [Moles/Vol] 26 mmol/L Critically low 30-90 [facility] Comment on above: Performed By: #### N AU ####[facility] [place] [address] [place] [id number]. Cortez Younger ACETONE SERUMon 10-07-2022 ACETONE Negative Normal NEGATIVE [facility] Comment on above: Performed By: #### E RUR #### [facility] Laboratory [address] [address] [address] Cortez Younger CBC AUTO DIFFon 10-07-2022 BASO # 0.1 103/ul Normal 0.0-0.1 [facility] Comment on above: Performed By: #### C BC ####[facility] [address] [address]Dr. Cortez Younger Basophils/100 WBC (Bld) 0.8 % Normal 0.2-2.0 [facility] Comment on above: Performed By: #### C BC ####[facility] [address] [address]Dr. Cortez Younger EO # 0.0 103/ul Normal 0.0-0.7 [facility] Comment on above: Performed By: #### C BC ####[facility] [address] [address]Dr. Cortez Younger Eosinophils/100 WBC (Bld) 0.2 % Critically low 0.9-7.0 [facility] Comment on above: Performed By: #### C BC ####[facility] [address] [place], [place] [address]Dr. Cortez Younger Erythrocyte distribution width (RBC) [Ratio] 12.1 % Normal 11.0-15.0 The [facility] Comment on above: Performed By: #### C BC ####[facility] [address] [place], [place] [address]Dr. Cortez Younger Hematocrit (Bld) [Volume fraction] 42.9 % Normal 42.0-54.0 The [facility] Comment on above: Performed By: #### C BC ####[facility] [address] [place], [place] [address]Dr. Cortez Younger Hemoglobin (Bld) [Mass/Vol] 15.4 g/dL Normal 14.0-18.0 [facility] Comment on above: Performed By: #### C BC ####[facility] [address] [place], [place] [address]Dr. Cortez Younger IG # 0.04 10e3/ul Critically high 0.00-0.03 [facility] Comment on above: Performed By: #### C BC ####[facility] [address] [place], [place] [address]Dr. Cortez Younger IG % 0.4 % Normal 0.0-0.5 The [facility] Comment on above: Performed By: #### C BC ####[facility] Mg[address] [place], [place] [address]Dr. Cortez Younger LYMPH # 1.3 103/ul Normal 1.2-3.8 The [facility] Comment on above: Performed By: #### C BC ####[facility] [address] [id number]. Cortez Younger Lymphocytes/100 WBC (Bld) 13.7 % Critically low 20.5-60.0 The [facility] Comment on above: Performed By: #### C BC ####[facility] [address] [address]Dr. Cortez Aren MANUAL DIFF REQ NO Normal [facility] Comment on above: Performed By: #### C BC ####[facility] [address] [address]Dr. Cortez Aren MCH (RBC) [Entitic mass] 31.4 pg Normal 25.9-34.0 The [facility] Comment on above: Performed By: #### C BC ####[facility] [address] [address]Dr. Cortez Aren MCHC (RBC) [Mass/Vol] 35.9 g/dL Critically high 29.9-35.2 The [facility] Comment on above: Performed By: #### C BC ####[facility] [address] [address]Dr. Eleanorvalerie Younger MCV (RBC) [Entitic vol] 87.4 fL Normal 80.0-94.0 The [facility] Comment on above: Performed By: #### C BC ####[facility] [address] [place], [place] [address]Dr. Cortez Younger MONO # 0.4 103/ul Normal 0.3-0.8 The [facility] Comment on above: Performed By: #### C BC ####[facility] [address] [address]Dr. Eleanorvalerie Younger Monocytes/100 WBC (Bld) 3.6 % Normal 1.7-12.0 The [facility] Comment on above: Performed By: #### C BC ####[facility] [address] [address]Dr. Cortez Younger NEUT # 7.9 103/ul Critically high 1.4-6.5 [facility] Comment on above: Performed By: #### C BC ####[facility] [address] [id number]. Eleanorvalerie Aren Neutrophils/100 WBC (Bld) 81.3 % Critically high 43.0-75.0 The [facility] Comment on above: Performed By: #### C BC ####[facility] [address] [phone]. Cortez Aren Platelet mean volume (Bld) [Entitic vol] 8.8 fL Critically low 9.5-13.5 The [facility] Comment on above: Performed By: #### C BC ####[facility] [address] [phone]. Cortez Younger PLT 371 103/ul Normal 150-450 [facility] Comment on above: Performed By: #### C BC ####[facility] [address] [phone]. Cortez Younger RBC 4.91 106/ul Normal 4.70-6.10 The [facility] Comment on above: Performed By: #### C BC ####[facility] [address] [phone]. Cortez Younger WBC 9.8 103/ul Normal 4.0-11.0 The [facility] Comment on above: Performed By: #### C BC ####[facility] [address] [phone]. Cortez Aren CRPon 10-07-2022 CRP [Mass/Vol] mg/L Normal <=1.0 [facility] Comment on above: Performed By: #### L IPA, TSH, CRP, CMP ####[facility] [address] [phone]. Cortez Younger ER URINE PROFILEon 3 Bilirubin Ql (U) Negative Normal NEGATIVE [facility] Comment on above: Performed By: #### E RUR #### [facility] Laboratory [address] [id number] [address] Cortez Younger Clarity (U) CLEAR Normal CLEAR The [facility] Comment on above: Performed By: #### E RUR #### [facility] Laboratory [address] [address] [address] Cortez Younger Color (U) LT. YELLOW Normal YELLOW The [facility] Comment on above: Performed By: #### E RUR #### [facility] Laboratory [address] [place] [address] Dr. Cortez PRESTON A micrscopic examina tion will be performed if indicated. Normal The [facility] Comment on above: Performed By: #### E RUR #### [facility] Laboratory [address] [place] [address] Dr. Cortez Younger Glucose Ql (U) Negative Normal NEGATIVE [facility] Comment on above: Performed By: #### E RUR #### [facility] Laboratory [address] [place] [address] Dr. Cortez Younger Hemoglobin Ql (U) Negative Normal NEGATIVE [facility] Comment on above: Performed By: #### E RUR #### [facility] Laboratory [address] [place] [address] Dr. Cortez Younger Ketones Ql (U) Negative Normal NEGATIVE [facility] Comment on above: Performed By: #### E RUR #### [facility] Laboratory [address] [place] [address] Dr. Cortez Younger LEUKOCYTES Negative Normal NEGATIVE [facility] Comment on above: Performed By: #### E RUR #### [facility] Laboratory [address] [place] [address] Dr. Cortez Younger Nitrite Ql (U) Negative Normal NEGATIVE [facility] Comment on above: Performed By: #### E RUR #### [facility] Laboratory [address] [place] [address] Dr. Cortez Younger pH (U) 7.5 [pH] Normal 5-9 The [facility] Comment on above: Performed By: #### E RUR #### [facility] Laboratory [address] [place] [address] Dr. Cortez Younger SPEC GRAVITY <=1.005 Abnormal 1.005-<=1.025 [facility] Comment on above: Performed By: #### E RUR #### [facility] Laboratory [address] [place] [address] Dr. Cortez Younger UA PROTEIN Negative Normal NEGATIVE/ TRACE The [facility] Comment on above: Performed By: #### E RUR #### [facility] Laboratory [address] [address] [address] Cortez Younger UR MICRO IND NOT INDICATED Normal [facility] Comment on above: Performed By: #### E RUR #### [facility] Laboratory [address] [address] [address] Cortez Younger Urobilinogen Qn (U) 0.2 {Fidelia'U}/dL Normal 0.2 - 1. 0 The [facility] Comment on above: Performed By: #### E RUR #### [facility] Laboratory [address] [place] [address] Dr. Cortez Younger LACTATE/LACTIC ACIDon 2022 Lactate [Moles/Vol] 1.0 mmol/L Normal 0.4-2.0 [facility] Comment on above: Performed By: #### E RUR #### [facility] Laboratory [address] [address] [address] Cortez Younger LIPASEon 10-07-2022 Lipase [Catalytic activity/Vol] 84.0 U/L Normal 73.0-393.0 [facility] Comment on above: Performed By: #### L IPA, TSH, CRP, CMP ####[facility] [address] [address]DrFish Younger PROF 14(COMP METB)on 023 Albumin [Mass/Vol] 3.9 g/dL Normal 3.4-5.0 [facility] Comment on above: Performed By: #### L IPA, TSH, CRP, CMP ####[facility] [address] [address]Dr. Cortez Younger Albumin/Globulin [Mass ratio] 1.7 {ratio} Normal [facility] Comment on above: Performed By: #### L IPA, TSH, CRP, CMP ####[facility] [address] [address]Dr. Cortez Younger ALP [Catalytic activity/Vol] 78 U/L Normal 46-116 The [facility] Comment on above: Performed By: #### L IPA, TSH, CRP, CMP ####[facility] [address] [address]Dr. Cortez Younger ALT [Catalytic activity/Vol] 28 U/L Normal 16-63 [facility] Comment on above: Performed By: #### L IPA, TSH, CRP, CMP ####[facility] [address] [address]Dr. Cortez Younger Anion gap [Moles/Vol] 12.1 mmol/L Normal [facility] Comment on above: Performed By: #### L IPA, TSH, CRP, CMP ####[facility] [address] [place], [place] [address]Dr. Cortez Younger AST [Catalytic activity/Vol] 15 U/L Normal 15-37 [facility] Comment on above: Performed By: #### L IPA, TSH, CRP, CMP ####[facility] [address] [place], [place] [address]Dr. Cortez Younger Bilirubin [Mass/Vol] 0.5 mg/dL Normal 0.2-1.0 The [facility] Comment on above: Performed By: #### L IPA, TSH, CRP, CMP ####[facility] [address] [place], [place] [address]Dr. Cortez Younger Calcium [Mass/Vol] 8.6 mg/dL Normal 8.5-10.1 [facility] Comment on above: Performed By: #### L IPA, TSH, CRP, CMP ####[facility] [address] [address]Dr. Cortez Younger Chloride [Moles/Vol] 100 mmol/L Normal 98-107 The [facility] Comment on above: Performed By: #### L IPA, TSH, CRP, CMP ####[facility] [address] [place], [place] [address]Dr. Cortez Younger CO2 [Moles/Vol] 28.8 mmol/L Normal 21.0-32.0 [facility] Comment on above: Performed By: #### L IPA, TSH, CRP, CMP ####[facility] [address] [address]Dr. Cortez Younger Creatinine [Mass/Vol] 0.70 mg/dL Normal 0.70-1.30 [facility] Comment on above: Performed By: #### L IPA, TSH, CRP, CMP ####[facility] [address] [address]Dr. Cortez Younger EGFR-AF PALESTINIAN >60 Normal >=60 [facility] Comment on above: Performed By: #### L IPA, TSH, CRP, CMP ####[facility] [address] [address]Dr. Cortez Younger EGFR-NON AF PALESTINIAN >60 Normal >=60 [facility] Comment on above: Performed By: #### L IPA, TSH, CRP, CMP ####[facility] [address] [address]Dr. Cortez Younger Globulin (S) [Mass/Vol] 2.3 g/dL Normal [facility] Comment on above: Performed By: #### L IPA, TSH, CRP, CMP ####[facility] [address] [place], [place] [address]Dr. Cortez Yuonger Glucose [Mass/Vol] 111 mg/dL Critically high 74-106 [facility] Comment on above: Performed By: #### L IPA, TSH, CRP, CMP ####[facility] [address] [address]Dr. Cortez Younger Potassium [Moles/Vol] 3.9 mmol/L Normal 3.5-5.1 [facility] Comment on above: Performed By: #### L IPA, TSH, CRP, CMP ####[facility] [address] [place], [place] [address]Dr. Cortez Younger Protein [Mass/Vol] 6.2 g/dL Critically low 6.4-8.2 [facility] Comment on above: Performed By: #### L IPA, TSH, CRP, CMP ####[facility] [address] [place], [place] [address]Dr. Cortez Younger Sodium [Moles/Vol] 137 mmol/L Normal 136-145 [facility] Comment on above: Performed By: #### L IPA, TSH, CRP, CMP ####[facility] [address] [address]Dr. Cortez Younger Urea nitrogen [Mass/Vol] 6.0 mg/dL Critically low 7.0-18.0 [facility] Comment on above: Performed By: #### L IPA, TSH, CRP, CMP ####[facility] [address] [address]Dr. Cortez Younger Urea nitrogen/Creatinine [Mass ratio] 8.6 mg/mg Normal [facility] Comment on above: Performed By: #### L IPA, TSH, CRP, CMP ####[facility] [address] [address]Dr. Cortez Younger SED RATE formerly [facility] 2022 SED RATE <1 Normal <=20 [facility] Comment on above: Performed By: #### C BC #### [facility] Laboratory [address] [address] [address] Cortez Younger TSHon 10-07-2022 TSH 1.031 uIU/mL Normal 0.358-3.740 [facility] Comment on above: Performed By: #### L IPA, TSH, CRP, CMP ####[facility] [address] [phone]. Cortez Younger Covid-19 PCR [facility]13 SARS-CoV-2 (COVID-19) RNA AXEL+probe Ql (Unsp spec) Not detected Normal NOT DETECTED [facility] Comment on above: Result Comment: When diagnostic [...] for this test is supported by the [place] of [employer] and Human Service's declaration that [...] used). Performed By: #### C BC #### [facility] Laboratory [address] [place] [address] Dr. Cortez Younger INFLUENZA A AND B [facility] 05-28 INFLUANEGH SEE BELOW Normal [facility] Comment on above: Result Comment: Nega tive for Flu A protein angiten. Infection due to Flu A cannot be ruled out. Flu A angiten in the sample may be below the detection limit of the test. Performed By: #### E RUR #### [facility] Laboratory [address] [place] [address] Dr. Cortez Younger INFLUBNEG SEE BELOW Normal [facility] Comment on above: Result Comment: Nega tive for Flu B protein antigen. Infection due to Flu B cannot be ruled out. Flu B antigen in the sample may be below the detection limit of the test. Performed By: #### E RUR #### [facility] Laboratory [address] [place] [address] Dr. Cortez Younger INFLUENZA A AG Negative Normal NEGATIVE SEE COMMENT [facility] Comment on above: Performed By: #### E RUR #### [facility] Laboratory [address] [place] [address] Dr. Cortez Younger INFLUENZA B AG Negative Normal NEGATIVE SEE COMMENT [facility] Comment on above: Performed By: #### E RUR #### [facility] Laboratory [address] [place] [address] Dr. Cortez Younger INTERNAL CONTROLS Within Normal Limits Normal Wi thin Normal Limits The [facility] Comment on above: Performed By: #### E RUR #### [facility] Laboratory [address] [place] [address] Dr. Cortez Younger XR CHEST 1 Von [...] KAIA SHEIKH Date: 2022-05-28 13:36 Normal [facility] PROF 14(COMP METB)on 022 Albumin [Mass/Vol] 3.9 g/dL Normal 3.4-5.0 [facility] Comment on above: Performed By: #### C MP #### [facility] Laboratory [address] [place] [address] Dr. Cortez Younger Albumin/Globulin [Mass ratio] 1.4 {ratio} Normal [facility] Comment on above: Performed By: #### C MP #### [facility] Laboratory [address] [place] [address] Dr. Cortez Younger ALP [Catalytic activity/Vol] 81 U/L Normal 46-116 [facility] Comment on above: Performed By: #### C MP #### [facility] Laboratory [address] [place] [address] Dr. Cortez Younger ALT [Catalytic activity/Vol] 19 U/L Normal 16-63 [facility] Comment on above: Performed By: #### C MP #### [facility] Laboratory [address] [place] [address] Dr. Cortez Younger Anion gap [Moles/Vol] 12.3 mmol/L Normal [facility] Comment on above: Performed By: #### C MP #### [facility] Laboratory [address] [place] [address] Dr. Cortez Younger AST [Catalytic activity/Vol] 15 U/L Normal 15-37 [facility] Comment on above: Performed By: #### C MP #### [facility] Laboratory [address] [place] [address] Dr. Cortez Younger Bilirubin [Mass/Vol] 0.3 mg/dL Normal 0.2-1.0 [facility] Comment on above: Performed By: #### C MP #### [facility] Laboratory [address] [place], [place] [id number] Dr. Cortez Younger Calcium [Mass/Vol] 8.6 mg/dL Normal 8.5-10.1 [facility] Comment on above: Performed By: #### C MP #### [facility] Laboratory [address] [place] [address] Dr. Cortez Younger Chloride [Moles/Vol] 101 mmol/L Normal 98-107 [facility] Comment on above: Performed By: #### C MP #### [facility] Laboratory [address] [address] [address] Cortez Younger CO2 [Moles/Vol] 30.6 mmol/L Normal 21.0-32.0 [facility] Comment on above: Performed By: #### C MP #### [facility] Laboratory [address] [place] [address] Dr. Cortez Younger Creatinine [Mass/Vol] 0.75 mg/dL Normal 0.70-1.30 [facility] Comment on above: Performed By: #### C MP #### [facility] Laboratory [address] [place] [address] Dr. Cortez Younger EGFR-AF PALESTINIAN >60 Normal >=60 [facility] Comment on above: Performed By: #### C MP #### [facility] Laboratory [address] [place] [address] Dr. Cortez Younger EGFR-NON AF PALESTINIAN >60 Normal >=60 [facility] Comment on above: Performed By: #### C MP #### [facility] Laboratory [address] [place] [address] Dr. Cortez Younger Globulin (S) [Mass/Vol] 2.8 g/dL Normal [facility] Comment on above: Performed By: #### C MP #### [facility] Laboratory [address] [place] [address] Dr. Cortez Younger Glucose [Mass/Vol] 98 mg/dL Normal 74-106 [facility] Comment on above: Performed By: #### C MP #### [facility] Laboratory [address] [place] [address] Dr. Cortez Younger Potassium [Moles/Vol] 3.9 mmol/L Normal 3.5-5.1 [facility] Comment on above: Performed By: #### C MP #### [facility] Laboratory [address] [place] [address] Dr. Cortez Younger Protein [Mass/Vol] 6.7 g/dL Normal 6.4-8.2 [facility] Comment on above: Performed By: #### C MP #### [facility] Laboratory [address] [address] [address] Cortez Younger Sodium [Moles/Vol] 140 mmol/L Normal 136-145 [facility] Comment on above: Performed By: #### C MP #### [facility] Laboratory [address] [place] [address] Dr. Cortez Younger Urea nitrogen [Mass/Vol] 5.0 mg/dL Critically low 7.0-18.0 [facility] Comment on above: Performed By: #### C MP #### [facility] [address] [place] [address] Dr. Cortez Younger Urea nitrogen/Creatinine [Mass ratio] 6.7 mg/mg Normal [facility] Comment on above: Performed By: #### C MP #### [facility] [address] [place] [address] Dr. Cortez Younger CBC AUTO DIFFon 01-18-2022 BASO # 0.0 103/ul Normal 0.0-0.1 [facility] Comment on above: Performed By: #### C BC #### [facility] [address] [place] [address] Dr. Cortez Younger Basophils/100 WBC (Bld) 0.1 % Critically low 0.2-2.0 [facility] Comment on above: Performed By: #### C BC #### [facility] [address] [place] [address] Dr. Cortez Younger EO # 0.0 103/ul Normal 0.0-0.7 [facility] Comment on above: Performed By: #### C BC #### [facility] [address] [place] [address] Dr. Cortez Younger Eosinophils/100 WBC (Bld) 0.0 % Critically low 0.9-7.0 [facility] Comment on above: Performed By: #### C BC #### [facility] [address] [place] [address] Dr. Cortez Younger Erythrocyte distribution width (RBC) [Ratio] 12.8 % Normal 11.0-15.0 [facility] Comment on above: Performed By: #### C BC #### [facility] [address] [place] [address] Dr. Cortez Younger Hematocrit (Bld) [Volume fraction] 42.7 % Normal 42.0-54.0 [facility] Comment on above: Performed By: #### C BC #### [facility] [address] [place] [address] Dr. Cortez Younger Hemoglobin (Bld) [Mass/Vol] 15.3 g/dL Normal 14.0-18.0 [facility] Comment on above: Performed By: #### C BC #### [facility] [address] [place] [address] Dr. Cortez Younger IG # 0.10 10e3/ul Critically high 0.00-0.03 [facility] Comment on above: Performed By: #### C BC #### [facility] [address] [place] [address] Dr. Cortez Younger IG % 0.7 % Critically high 0.0-0.5 [facility] Comment on above: Performed By: #### C BC #### [facility] [address] [place] [address] Dr. Cortez Younger LYMPH # 1.9 103/ul Normal 1.2-3.8 [facility] Comment on above: Performed By: #### C BC #### [facility] [address] [place] [address] Dr. Cortez Younger Lymphocytes/100 WBC (Bld) 13.5 % Critically low 20.5-60.0 [facility] Comment on above: Performed By: #### C BC #### [facility] [address] [place] [address] Dr. Cortez Younger MANUAL DIFF REQ NO Normal [facility] Comment on above: Performed By: #### C BC #### [facility] [address] [address] [address] Cortez Younger MCH (RBC) [Entitic mass] 31.4 pg Normal 25.9-34.0 [facility] Comment on above: Performed By: #### C BC #### [facility] [address] [address] [address] Cortez Younger MCHC (RBC) [Mass/Vol] 35.8 g/dL Critically high 29.9-35.2 [facility] Comment on above: Performed By: #### C BC #### [facility] [address] [address] [address] Cortez Younger MCV (RBC) [Entitic vol] 87.5 fL Normal 80.0-94.0 [facility] Comment on above: Performed By: #### C BC #### [facility] [address] [place] [address] Dr. Cortez Younger MONO # 0.8 103/ul Normal 0.3-0.8 [facility] Comment on above: Performed By: #### C BC #### [facility] [address] [place] [address] Dr. Cortez Younger Monocytes/100 WBC (Bld) 5.6 % Normal 1.7-12.0 [facility] Comment on above: Performed By: #### C BC #### [facility] [address] [address] [address] Cortez Younger NEUT # 11.4 103/ul Critically high 1.4-6.5 [facility] Comment on above: Performed By: #### C BC #### [facility] [address] [place] [address] Dr. Cortez Younger Neutrophils/100 WBC (Bld) 80.1 % Critically high 43.0-75.0 [facility] Comment on above: Performed By: #### C BC #### [facility] [address] [place] [address] Dr. Cortez Younger Platelet mean volume (Bld) [Entitic vol] 8.4 fL Critically low 9.5-13.5 [facility] Comment on above: Performed By: #### C BC #### [facility] [address] [address] [address] Cortez Younger PLT 352 103/ul Normal 150-450 [facility] Comment on above: Performed By: #### C BC #### [facility] [address] [place] [address] Dr. Cortez Younger RBC 4.88 106/ul Normal 4.70-6.10 [facility] Comment on above: Performed By: #### C BC #### [facility] [address] [address] [address] Cortez Younger WBC 14.2 103/ul Critically high 4.0-11.0 [facility] Comment on above: Performed By: #### C BC #### [facility] [address] [place] [address] Dr. Cortez Younger PROF 14(COMP METB)on 022 Albumin [Mass/Vol] 4.1 g/dL Normal 3.4-5.0 [facility] Comment on above: Performed By: #### C MP #### [facility] [address] [place] [address] Dr. Cortez Younger Albumin/Globulin [Mass ratio] 1.5 {ratio} Normal [facility] Comment on above: Performed By: #### C MP #### [facility] [address] [place] [address] Dr. Cortez Younger ALP [Catalytic activity/Vol] 77 U/L Normal 46-116 [facility] Comment on above: Performed By: #### C MP #### [facility] [address] [place] [address] Dr. Cortez Younger ALT [Catalytic activity/Vol] 19 U/L Normal 16-63 [facility] Comment on above: Performed By: #### C MP #### [facility] [address] [place] [address] Dr. Cortez Younger Anion gap [Moles/Vol] 10.6 mmol/L Normal [facility] Comment on above: Performed By: #### C MP #### [facility] [address] [address] [address] Cortez Younger AST [Catalytic activity/Vol] 8 U/L Critically low 15-37 [facility] Comment on above: Performed By: #### C MP #### [facility] [address] [address] [address] Cortez Younger Bilirubin [Mass/Vol] 0.3 mg/dL Normal 0.2-1.0 [facility] Comment on above: Performed By: #### C MP #### [facility] [address] [address] [address] Cortez Younger Calcium [Mass/Vol] 8.9 mg/dL Normal 8.5-10.1 [facility] Comment on above: Performed By: #### C MP #### [facility] [address] [address] [address] Cortez Younger Chloride [Moles/Vol] 91 mmol/L Critically low 98-107 [facility] Comment on above: Performed By: #### C MP #### [facility] [address] [address] [address] Cortez Younger CO2 [Moles/Vol] 30.1 mmol/L Normal 21.0-32.0 [facility] Comment on above: Performed By: #### C MP #### [facility] [address] [address] [address] Cortez Younger Creatinine [Mass/Vol] 0.88 mg/dL Normal 0.70-1.30 [facility] Comment on above: Performed By: #### C MP #### [facility] [address] [address] [address] Cortez Younger EGFR-AF PALESTINIAN >60 Normal >=60 [facility] Comment on above: Performed By: #### C MP #### [facility] [address] [address] [address] Cortez Younger EGFR-NON AF PALESTINIAN >60 Normal >=60 [facility] Comment on above: Performed By: #### C MP #### [facility] [address] [address] [address] Cortez Younger Globulin (S) [Mass/Vol] 2.8 g/dL Normal [facility] Comment on above: Performed By: #### C MP #### [facility] [address] [address] [address] Cortez Younger Glucose [Mass/Vol] 112 mg/dL Critically high 74-[address] [facility] Comment on above: Performed By: #### C MP #### [facility] [address] [address] [address] Cortez Younger Potassium [Moles/Vol] 3.7 mmol/L Normal 3.5-5.1 [facility] Comment on above: Performed By: #### C MP #### [facility] [address] [address] [address] Cortez Younger Protein [Mass/Vol] 6.9 g/dL Normal 6.4-8.2 [facility] Comment on above: Performed By: #### C MP #### [facility] [address] [address] [address] Cortez Younger Sodium [Moles/Vol] 128 mmol/L Critically low 136-145 Th [facility] Comment on above: Performed By: #### C MP #### [facility] [address] [place] [address] Dr. Cortez Younger Urea nitrogen [Mass/Vol] 9.0 mg/dL Normal 7.0-18.0 [facility] Comment on above: Performed By: #### C MP #### [facility] [address] [address] [address] Cortez Younger Urea nitrogen/Creatinine [Mass ratio] 10.2 mg/mg Normal [facility] Comment on above: Performed By: #### C MP #### [facility] [address] [address] [address] Cortez Younger SED RATE WASHINGTONERGREN 2021 SED RATE <1 Normal <=20 [facility] Comment on above: Performed By: #### S EDR ####[facility] [id number] [address]Dr. Cortez Younger UA RANDOMon 01-18-2022 Bilirubin Ql (U) Negative Normal NEGATIVE [facility] Comment on above: Performed By: #### E RUR #### [facility] [address] [place] [address] Dr. Cortez Younger Clarity (U) CLEAR Normal CLEAR [facility] Comment on above: Performed By: #### E RUR #### [facility] [address] [place] [address] Dr. Cortez Younger Color (U) LT. YELLOW Normal YELLOW [facility] Comment on above: Performed By: #### E RUR #### [facility] [address] [place] [address] Dr. Cortez Younger Glucose Ql (U) Negative Normal NEGATIVE [facility] Comment on above: Performed By: #### E RUR #### [facility] [address] [place] [address] Dr. Cortez Younger Hemoglobin Ql (U) TRACE-LYSED Abnormal NEGATIVE [facility] Comment on above: Performed By: #### E RUR #### [facility] [address] [place] [address] Dr. Cortez Younger Ketones Ql (U) Negative Normal NEGATIVE [facility] Comment on above: Performed By: #### E RUR #### [facility] [address] [place] [address] Dr. Cortez Younger LEUKOCYTES TRACE Abnormal NEGATIVE [facility] Comment on above: Performed By: #### E RUR #### [facility] [address] [place] [address] Dr. Cortez Younger Nitrite Ql (U) Negative Normal NEGATIVE [facility] Comment on above: Performed By: #### E RUR #### [facility] [address] [place] [address] Dr. Cortez Younger pH (U) 6.5 [pH] Normal 5-9 [facility] Comment on above: Performed By: #### E RUR #### [facility] [address] [place] [address] Dr. Cortez Younger SPEC GRAVITY <=1.005 Abnormal 1.005-<=1.025 [facility] Comment on above: Performed By: #### E RUR #### [facility] [address] [address] [address] Cortez Younger UA PROTEIN Negative Normal NEGATIVE/ TRACE [facility] Comment on above: Performed By: #### E RUR #### [facility] [address] [address] [address] Cortez Younger Urobilinogen Qn (U) 0.2 {Fidelia'U}/dL Normal 0.2 - 1. 0 [facility] Comment on above: Performed By: #### E RUR #### [facility] [address] [address] [address] Cortez Younger MRI CSPINE WO W [...] VERN LU Date: 2022-01-17 16:24 Normal [facility] MRI TSPINE WO W CONon 2021 MRI [...] by: VERN LU Date: 2022-01-17 16:29 Normal [facility] MRI BRAIN WO W CONon 022 MRI [...] by: VERN LU Date: 2022-01-03 08:03 Normal [facility] Patient Educationon 12-25-19 Patient Education Oncology Prostate-Specific [...] including vitamins, herbs, eye drops, creams, and eqsz-mst-hwhigky medicines. This also includes: ? Medicines to [...] 08/01/2005 Document Revised: 06/11/2018 Document Reviewed: 04/05/2018 [employer] Patient Education ? 2019 [employer]. [facility] Urology Office/Clinic Noteon 12-24-2021 Urology Office/Clinic Note [...] Urnls Dip Stick Auto w/o Microscopy POC 08158 3. Elevated PSA (R97.20: Elevated prostate specific antigen [PSA]) Most recent PSA done 08/13/21 5.24 Ordered: Urnls Dip Stick Auto w/o Microscopy POC 38567 Other obstructive and reflux uropathy (N13.8: Other obstructive and reflux uropathy) Follow-up With When Contact Information Star Manley MD, LION Borja In 6 months [facility] [address] [place] [address]- Additional Instructions: w/ PVR Patient Education Prostate-Specific [...] tab(s), Or (more content not included)... Normal [facility] Comment on above: Result Comment: Elec tronically Signed By: Star Manley MD, Gustavo Orlando\.br\Date and Time Signed: 12/24/21 10:52 EDT\.br\Electronically Co-Signed By: Lynda Ortega\.br\Date and Time Co-Signed: 12/24/21 10:47 EDT Lab Reportson 12-16-2021 Lab Reports [id number]: 127 Normal [facility] Lab Reports [id number]: 127 Normal [facility] CULTURE URINEon 12-12-2021 CULTURE URINE Culture Observations : No growth Normal [facility] Comment on above: Performed By: #### U RCX ####[facility] [id number] [address]Dr. Cortez Younger UA RANDOMon 12-12-2021 Bilirubin Ql (U) Negative Normal NEGATIVE [facility] Comment on above: Performed By: #### U A #### [facility] [address] [address] [address] Cortez Younger Clarity (U) CLEAR Normal CLEAR [facility] Comment on above: Performed By: #### U A #### [facility] [address] [place] [address] Dr. Cortez Younger Color (U) LT. YELLOW Normal YELLOW [facility] Comment on above: Performed By: #### U A #### [facility] [address] [place] [address] Dr. Cortez Younger Glucose Ql (U) Negative Normal NEGATIVE [facility] Comment on above: Performed By: #### U A #### [facility] [address] [place] [address] Dr. Cortez Younger Hemoglobin Ql (U) LARGE Abnormal NEGATIVE [facility] Comment on above: Performed By: #### U A #### [facility] [address] [place] [address] Dr. Cortez Younger Ketones Ql (U) Negative Normal NEGATIVE [facility] Comment on above: Performed By: #### U A #### [facility] [address] [place] [address] Dr. Cortez Younger LEUKOCYTES Negative Normal NEGATIVE [facility] Comment on above: Performed By: #### U A #### [facility] [address] [address] [address] Cortez Younger Nitrite Ql (U) Negative Normal NEGATIVE [facility] Comment on above: Performed By: #### U A #### [facility] [address] [place] [address] Dr. Cortez Younger pH (U) 7.0 [pH] Normal 5-9 [facility] Comment on above: Performed By: #### U A #### [facility] [address] [id number] Cortez Younger SPEC GRAVITY 1.010 Normal 1.005-<=1.025 [facility] Comment on above: Performed By: #### U A #### [facility] [address] [id number] Cortez Younger UA PROTEIN Negative Normal NEGATIVE/ TRACE [facility] Comment on above: Performed By: #### U A #### [facility] [address] [id number] Cortez Younger Urobilinogen Qn (U) 0.2 {Fidelia'U}/dL Normal 0.2 - 1. 0 [facility] Comment on above: Performed By: #### U A #### [facility] [address] [address] [address] Cortez Younger Coding Summary.on 12-06-2021 Coding Summary. CD:[id number] Gh0b Ww+PGhlYWQ+NV6QKUDuW85xw BTuuD2SI6iRTF2YTCOQTLGJN J8RLW4cbTR9BCleY5YiyaZg EkftaUVmDR89WQo3KEM6nHix APxjwM7ckCSnU4o3NiTvDO59 dW73FSerQMUrHlM9ClLxlggm bWFy M6jtObHgeNXbUwy+PHRhYmxl IHdpZHRoPScxMDAlJyBzdHls OR4vLq9sFOFjJNRujIjmeIBf OiBj u7olATBkWZvsFK9mrXbcO3Eu kRL1QTNps9t1Ck22tWV+PHRk HVH0pIqcYQiua424XzJzf8bq IDM3 oIXvJGzpZGU8V34ts4G6ZKGi KDEhEPT9oSQ2tH3ytYjmuaqr A8JhxZAqFfC4JJM0wMPqbC4x bGln uwfmdX4tSui+O61WMI4FKNVS PU4SBrm0Y2HxWfucfYA+PC90 KEXhQS45pGTqsHKrx5cujZh9 JzEw HFNiAPY2fCzpIFlmk9VtKXPg M03mqYDag1Q6JQHjeZzrxANg KgJdhSJ6hO4tCZtkvjshe9wa dzsn Fuida1nivy19eW62X52aCCuv NXHaXLK6SMQcADAnlVkgyg1w yG8lZp1+EVryi1ktc4uubEx3 IjIw VDFtxlNubWjfUIH3g4SlQi68 Z4LgiWnpz5TuUwv6bm15xVWl s8V3wZK9JAyvLGNyyR9oKOlx ZnQ6 HYAiDjQwbN13oKHjJPthUj1x bMrjqMdgKQ6qDFRpylyjAOGd lV3jDIXarDWyaYhyDT2pGCRn bjtm d551VfQhSWD7LEPrlNOqW7Sj nD4nYyJeHQJuZIAvN2EgrCUg UQtfG944OFnoMwF0NFPtehSr Y2Fs XOBbaFacKkR9n0H1Ac7Mz6Zt xxbeLGM6BBfrOCX4LbJ9LaOz BrX2N2TdGsm9DLSliQgbUV1n J3Bh WQRxkefxxrnzmVQ9VAKvLJOv dG48uZIwOZnfAh8mi2W7a269 VXWkCBIvhG27Hf3clRiiMZYy dCBU sF1hsunag3gkpqghNtStSSBm CZo0DMi3BBJerBcyXoBsLFZ0 GcM5MEW4rUFzeZ2pmJrovyvn dG9w Oyc+M74zjD9aQQB7KUF2yzvo JXCyszYmWS32WW78V5TzCjkj dGFibGU+QCWcprPrwShaJE4z YmFj t4lew1RlEUxzI5OuZPArPOcy Jgj6CZVzVPG5hYJ7oJ7kDMJk DTecb7S5hHR6B0YsiaRuno9i b2xs WWCyGMjqD38mtQKtn2G5XBPl eXF8EIEvnDhkCiJvyV12Mbr+ CBCutGssf8KfLqkzj0mpl9rg dGg9 IcOjUOUoifXbkFnmWVD0j5Ky Ol34S27sGFqfMQQwDXTcOISo KEGroDofvs7iaV0zGw0+PGNv bCB3 nJC2gK6eKNClLdK5CXyuD818 QaLszBLxVucly4puw7fbqLa1 XnNaDVSaseJllJucTJG4d4Vl Lz48 J33tNFlcWDRvERPhUCZiAQPt bMrmyk1eyZ6hGn3+JD2gv0kf pa11aU46dDX+YXViXXP6rIfz PSdw YAMniO1yJYzvGcX3KXUgExQt pQ53mDKsVMnkSw5hoGlioPep FH9eUHWquojor203ZrKjh8un IDEw fXQnNRzaEGE3X93vg1J9EBBs KPYtXCA7xCQ6pV1tuFxvboro bGVmdDsgdmVydGljYWwtYWxp Z246 IHRvcDsnPlBhdGllbnQgTmFt EEm3Q9HcVsm4WBPspFedZD3w aLDdVUrjXg7moBckxBxmEB3y NTBp wyogy940OePmq4fhZTSonHUf ULthBXI5V58dn9P4MRSqBRLv CBJ6tLY3rH1cmXsjqmeeiQQb dDsg lhDfdXrlTQnnOCthK927TOYa wUnhTcWglwNhIOAcqDR4PW26 LR00zVDlh5L7zXE6F3AqDTVj bmct ytocbEN4JENdSCNogS51Gl4g eCyuLl6fDXFwYVL7ZTGtaQXo K9IxzQ3aVpWtYCWeLMJzH8Rj eHQt FHuqG946BLqsUrH6MWVacgSg M6XlIAYbuLnzSkZ6x9W2Cv8C A9Q6XJ00JO13pGEke3R0gQV5 J3Bh PVIfpywhcgihzPP5EGYrWKIy jA84Wm9cdXqoVh8pCCBzWAE4 DDZapYUxS7AsfQ1vJlYjUDVo MDAw Z1NujSQjRPxeY222NEpnFpI2 KWYxiuAdO6NnYFVkxCuvLvY3 u8N2Fq9BFPz9MO15AD80aADl c3R5 nWF7O2ImQXExjtsfurpjiUI1 SRCxCFDuxN28Wj6vlEfjOb3n PKIfJYO6XXAknEKzN8HbyI9m OiAj LRLmJPMcI6KvkSEpGJaxW987 RTfiAjF3UXYbnbLpE2UcAJRl bArcRpB6t3X1Qe2NLTLiLA93 IFR5 tEK4AJ20YU61B1FlYbjbdUBl bGU+PHRhYmxlIHdpZHRoPScx YUEtFjTfiEriBW2qUh7zGDBw LWNv tHnnpPRqZpWzq3odIXJmZNdv NN7ynNjyH5OoqPS3NFNef5a9 Om30B72hJ9JguMI+PGNvbCB3 aWR0 jK2bKuKxMaT0OVmzR960RzTy xQKzPbjux2jii1xgvTh0RyX4 KXYdrxWfbYoaUDV3h1YmRm21 Y29s IHdpZHRoPSIxNSUiIHZhbGln gb7doP7aHd3+TNNuyIF0eMB1 oU6fJaInUlX4IQltH830RkYe cCIv Heftd5rbm1alwQk3QcGpGDJi plTnuOgtMRU4j0GsLj72I8Dy kBfox8VmGxr6iw64tQAak8S4 bGU9 C3ArURSptrvllLCzwLooMK2n ANPwsdbaBQQnnZ1mRNPeB3h8 WkSrAwE0KVzaB2TlktD2SXYg cHQg GVufHDY1A93vi4B7FCNrHSXn FJA3bTY5wM6fyCqeevievKAl iJdbcqJwpBhqOTnsBSltI785 IHRv dExhZNYckG2yELDcbKQpiYft ML8pIEYxgrxrVzSKEkQVD7nZ LEotA3NKDU9tKQqhnKR+PHRk IHN0 cCyeZMxtVDZfoZ8cXLKuW9q8 XxAdXjX7IFtnO9XbJNQfjwjx Hp18mR4wIgCpDkL6KLsrL1Zs bnQ6 FCKncOSyMIpvQVS4S66je8L1 HPCdRXBlVUG2yJP3nK7blKga bjogbGVmdDsgdmVydGljYWwt YWxp Q060HDTbcVttRzT2JgJmLoM2 Ixv8C5SpKaz8PDYvuNblFT2q sLDbXVavFv3oxThlsKdyIK8g NTBp txzrWFZgrD9pHDVmeBCawBic WE9oCWFzvdoes677RtHsQMV9 RCHtpJKsY1EugH8sYpXfJWSi MDAw R5NtuEWwMJyxF641CZaaGmW8 DXYsufPrW8OaFJHqaWjaMsG1 b7H4Cf60WzKBFVSucixseIC+ PHRk VGG5xSkiGXiqFUXbbB9kUTPo H0m1DvZvBwC0GDrtN4RxECZl ihixRu04gB5vUxQdEsU7IRhe O2Zv ysL9XVNgpMIvKIzvGHH5Q10q v1P4RTHwVOPcWOA7fJT0yA6p bGlnbjogbGVmdDsgdmVydGlj YWwt POjnL838IUVdbBstXo8oeHZ4 M8LnVzy4THUzbNtsHI2wbIRz PRrvYg6wtHmbyFxtKL5qYEYv bjtw LJLkoD2vNBEbwKGfpUjpAF9p NNJqlqwvf782ShRtEJH2HTVp mTFuW5WxyE6dHlPqOXIbXIIy O3Rl hAItQUtuJ271YWxvAhB6ALYa spUvT1HmSCLqcDsrAyD2v9C2 Jz9GaVHfIOXpOL66OM25PM97 L3Ry PjwvdGFibGU+PHRhYmxlIHdp UXTvJAksRBDeMkQajKoyTR5b Ey6fOAPeMKXlnBycnYDqRyQz b2xs FQVyOIqyOJ3koBmyG2UokPO5 BLAut6e5Hw68O12iP8SxaEZ+ MTHphMW8dRN4vL6eGtEjKyK0 YWxp H709AlUhsWHaDsjeu5ndr3dx oLz1CkCdQZMbysEgwBwdAIG0 a8DdAv13O23pKEoaFUNvIAZh MCUi XEIxwSnwxn2hcZ3wNg8+PGNv mGB1oOF2lC7hNkHiWcJ6BDdh B362OpZahRUqYgutO35qN1Lj dXA+ XDLkRgq9VLJxkYydOA8kkGOn GZwjZd1fGNE0RbMmNgBjVLgm C4OdUDQwjxarwjdsjPH7DEIe MDUw mK29Ty1coGkwHq7uBYGwCTV4 IFMkgHDhI0UvnA3dWoSbEOMh XISaP1GunLMuAKusU927BZaz ZnQ7 OUOulhDzT7GtOPFrdYfuXlA2 i0Y4Ns1MuMmfdGNqTA1aDmQo RQx3I6InOnn4VRWqkExzAW8x cGFk MGssQk8kaDmmfCslDG1mXOQv unwcx601BsVqn4vwGXCetZHn NLjrXEV3D44tr8R4AFFdSKGp MDA7 dVI8uZ2qoNjxisaliSDaoIzd arTsmHudVShyAVlrP162KUMh zMouFdIOUkd9R8CpPlv9PRZm dHls NA0xwECrRDrlHa9jjNonfJol AI7cCYEvndbzv507FuBpi1vs RGAnrMJqGArbHSK3K95if0K1 ICMw HBHaYPI6hHB8bV9ggEjkgeut bGVmdDsgdmVydGljYWwtYWxp K135DYCtbZcdLz0LYsh8A0Gv Pjx0 RFFwtRemYS0qcHEgENpeGv5k lQwppQoiYA8hTSSgjwvyb682 ZnFos3pjXWUvyISoJAxrFLI4 Y29s p2T4AXYeVHTbGVI9gNG0pB1p bGlnbjogbGVmdDsgdmVydGlj YDspSBdbY658GDVuzWhxSvHl eWVy OjwvdGQ+NH87vi35S6DeAdle Ybq0YWQcEYQ6yTW9bC0hBMOp PHcdc1R0uZR5I0PaltUqdk2d b2xs YXBz (more content not included)... [facility] Consent for Procedure/Surger yon 12-05-2021 Consent for Procedure/Surgery [id number]#1.00CD :127 [facility] Consent for Treatmenton 05-2 Consent for Treatment [id number]#1.00CD: 127 [facility] IntraOperative Documentson 0 12-05-2021 IntraOperative Documents [id number]#1.00CD :127 [facility] Main OR Intraoperative Recor don 12-05-2021 Main OR Intraoperative Record IntraOp Document Type FTURO Summary Primary Physician: Star Manley MD, Gustavo Orlando Finalized Date/Time: 12/05/21 13:57:51 Pt. Name: HARISH MCKENNA /Sex: 1970 Male Med Rec #: [id number] Physician: Gustavo Graves Jr., MD Financial #: [id number] Pt. Type: O Room/Bed: / Admit/Disch: 12/05/21 11:48:14 - Institution: Case Times FTURO Entry 1 Patient Times In Room 12/05/21 13:23:00 Out Room 12/05/21 13:57:00 Procedure Times Start 12/05/21 13:40:00 Stop 12/05/21 13:53:00 Anesthesia Times Last Modified By: Veena Levin RN 12/05/21 13:57:47 Case Attendance FTURO Entry 1 Entry 2 Entry 3 Case Attendee Gustavo Graves Jr., MD COPIER REPAIR TECHNICIAN, Veena Brower COPIER REPAIR TECHNICIAN, Ni Aguirre Role Performed Surgeon - Primary [...] Case Attendee Veena Levin RN Role Performed Wardrobe Specialty Worker - Primary Time In 12/05/21 13:23:00 Time [...] Implant Implant Identification Description UROLIFT Lot Number [id number] Area Representative NEOTRACT Catalog ?# [id number] Expiration Date 07/17/23 Usage Data Implant Site [...] patient probl (more content not included)... Normal [facility] Main OR Preoperative Recordo n 12-05-2021 Main OR Preoperative Record Holding Area Document Type FTURO Summary Primary Physician: Gustavo Graves Jr., MD Finalized Date/Time: 12/05/21 13:01:06 Pt. Name: LESLIESHARLAHARISH D.O.B./Sex: 1970 Male Med Rec #: [id number] Physician: Gustavo Graves Jr., MD Financial #: [id number] Pt. Type: O Room/Bed: / Admit/Disch: 12/05/21 [...] 12:28 Veena Levin RN 12/05/21 13:01 Normal [facility] Operative Reporton Operative Report Patient: HARISH MCKENNA [...] procedure (10 mg diazepam, 5/325 mg of Commerce), Local Anesthesia (60cc 2% Xylocaine liquid inserted [...] well and was subsequently discharged home. Normal [facility] Comment on above: Result Comment: Elec tronically Signed By: Star Manley MD, Gustavo Orlando\.amanda\Date and Time Signed: 12/05/21 13:58 EDT CBC AUTO DIFFon 12-03-2021 BASO # 0.2 103/ul Critically high 0.0-0.1 [facility] Comment on above: Performed By: #### C BC ####[facility] [address] [place], [place] [address]Hw. Cortez Younger Basophils/100 WBC (Bld) 1.3 % Normal 0.2-2.0 [facility] Comment on above: Performed By: #### C BC ####[facility] [address] [place], [place] [address]ToFish Younger EO # 0.2 103/ul Normal 0.0-0.7 [facility] Comment on above: Performed By: #### C BC ####[facility] [address] [place] [address]Dr. Cortez Younger Eosinophils/100 WBC (Bld) 1.8 % Normal 0.9-7.0 [facility] Comment on above: Performed By: #### C BC ####[facility] [address] [place] [address]Dr. Cortez Youngre Erythrocyte distribution width (RBC) [Ratio] 13.3 % Normal 11.0-15.0 [facility] Comment on above: Performed By: #### C BC ####[facility] [address] [place] [address]Dr. Cortez Younger Hematocrit (Bld) [Volume fraction] 45.0 % Normal 42.0-54.0 [facility] Comment on above: Performed By: #### C BC ####[facility] [address] [place], [place] [address]Dr. Cortez Younger Hemoglobin (Bld) [Mass/Vol] 15.6 g/dL Normal 14.0-18.0 [facility] Comment on above: Performed By: #### C BC ####[facility] [address] [place], [place] [address]Dr. Cortez Younger IG # 0.05 10e3/ul Critically high 0.00-0.03 [facility] Comment on above: Performed By: #### C BC ####[facility] [address] [place], [place] [address]Dr. Cortez Younger IG % 0.4 % Normal 0.0-0.5 [facility] Comment on above: Performed By: #### C BC ####[facility] [address] [place], [place] [address]Dr. Cortez Younger LYMPH # 1.8 103/ul Normal 1.2-3.8 [facility] Comment on above: Performed By: #### C BC ####[facility] [address] [place], [place] [address]Dr. Cortez Younger Lymphocytes/100 WBC (Bld) 15.2 % Critically low 20.5-60.0 [facility] Comment on above: Performed By: #### C BC ####[facility] [address] [place] [address]Dr. Cortez Younger MANUAL DIFF REQ NO Normal [facility] Comment on above: Performed By: #### C BC ####[facility] [address] [place] [address]Dr. Cortez Younger MCH (RBC) [Entitic mass] 31.1 pg Normal 25.9-34.0 [facility] Comment on above: Performed By: #### C BC ####[facility] [address] [place], [place] [address]Dr. Cortez Younger MCHC (RBC) [Mass/Vol] 34.7 g/dL Normal 29.9-35.2 [facility] Comment on above: Performed By: #### C BC ####[facility] [address] [place], [place] [address]Dr. Cortez Aren MCV (RBC) [Entitic vol] 89.8 fL Normal 80.0-94.0 [facility] Comment on above: Performed By: #### C BC ####[facility] [address] [place] [address]Dr. Cortez Younger MONO # 0.6 103/ul Normal 0.3-0.8 [facility] Comment on above: Performed By: #### C BC ####[facility] [address] [place] [address]Dr. Eleanorvalerie Younger Monocytes/100 WBC (Bld) 5.3 % Normal 1.7-12.0 [facility] Comment on above: Performed By: #### C BC ####[facility] [address] [place] [address]Dr. Cortez Younger NEUT # 8.9 103/ul Critically high 1.4-6.5 [facility] Comment on above: Performed By: #### C BC ####[facility] [address] [place], [place] [address]Dr. Cortez Younger Neutrophils/100 WBC (Bld) 76.0 % Critically high 43.0-75.0 [facility] Comment on above: Performed By: #### C BC ####[facility] [address] [place] [address]Dr. Cortez Younger Platelet mean volume (Bld) [Entitic vol] 8.9 fL Critically low 9.5-13.5 [facility] Comment on above: Performed By: #### C BC ####[facility] [address] [place] [address]Dr. Cortez Younger PLT 414 103/ul Normal 150-450 [facility] Comment on above: Performed By: #### C BC ####[facility] [address] [place] [address]Dr. Cortez Younger RBC 5.01 106/ul Normal 4.70-6.10 [facility] Comment on above: Performed By: #### C BC ####[facility] [address] [place] [address]Dr. Cortez Younger WBC 11.7 103/ul Critically high 4.0-11.0 [facility] Comment on above: Performed By: #### C BC ####[facility] [address] [place] [address]DrFish Younger PROF 14(COMP METB)on 022 Albumin [Mass/Vol] 3.8 g/dL Normal 3.4-5.0 [facility] Comment on above: Performed By: #### C BC #### [facility] Laboratory [address] [place] [address] [address] Cortez Younger Albumin/Globulin [Mass ratio] 1.3 {ratio} Normal [facility] Comment on above: Performed By: #### C BC #### [facility] Laboratory [address] [place] [address] [address] Cortez Younger ALP [Catalytic activity/Vol] 95 U/L Normal 46-116 [facility] Comment on above: Performed By: #### C BC #### [facility] Laboratory [address] [place] [address] [address] Cortez Younger ALT [Catalytic activity/Vol] 25 U/L Normal 16-63 [facility] Comment on above: Performed By: #### C BC #### [facility] Laboratory [address] [place] [address] [address] Cortez Younger Anion gap [Moles/Vol] 12.7 mmol/L Normal [facility] Comment on above: Performed By: #### C BC #### [facility] Laboratory [address] [place] [address] [address] Cortez Younger AST [Catalytic activity/Vol] 18 U/L Normal 15-37 [facility] Comment on above: Performed By: #### C BC #### [facility] Laboratory [address] [place] [address] Dr. Cortez Younger Bilirubin [Mass/Vol] 0.3 mg/dL Normal 0.2-1.0 [facility] Comment on above: Performed By: #### C BC #### [facility] Laboratory [address] [place] [address] Dr. Cortez Younger Calcium [Mass/Vol] mg/dL Normal 8.5-10.1 [facility] Comment on above: Performed By: #### C BC #### [facility] Laboratory [address] [place] [address] Dr. Cortez Younger Chloride [Moles/Vol] 98 mmol/L Normal 98-107 [facility] Comment on above: Performed By: #### C BC #### [facility] Laboratory [address] [place] [address] Dr. Cortez Younger CO2 [Moles/Vol] 28.9 mmol/L Normal 21.0-32.0 [facility] Comment on above: Performed By: #### C BC #### [facility] Laboratory [address] [place] [address] Dr. Cortez Younger Creatinine [Mass/Vol] 0.84 mg/dL Normal 0.70-1.30 [facility] Comment on above: Performed By: #### C BC #### [facility] Laboratory [address] [place] [address] Dr. Cortez Younger EGFR-AF PALESTINIAN >60 Normal >=60 [facility] Comment on above: Performed By: #### C BC #### [facility] Laboratory [address] [place] [address] Dr. Cortez Younger EGFR-NON AF PALESTINIAN >60 Normal >=60 [facility] Comment on above: Performed By: #### C BC #### [facility] Laboratory [address] [place] [address] Dr. Cortez Younger Globulin (S) [Mass/Vol] 3.0 g/dL Normal [facility] Comment on above: Performed By: #### C BC #### [facility] Laboratory [address] [place] [address] [address] Cortez Younger Glucose [Mass/Vol] 104 mg/dL Normal 74-106 [facility] Comment on above: Performed By: #### C BC #### [facility] Laboratory [address] [place] [address] Dr. Cortez Younger Potassium [Moles/Vol] 3.6 mmol/L Normal 3.5-5.1 [facility] Comment on above: Performed By: #### C BC #### [facility] Laboratory [address] [place] [address] Dr. Cortez Younger Protein [Mass/Vol] 6.8 g/dL Normal 6.4-8.2 [facility] Comment on above: Performed By: #### C BC #### [facility] Laboratory [address] [place] [address] Dr. Cortez Younger Sodium [Moles/Vol] 136 mmol/L Normal 136-145 [facility] Comment on above: Performed By: #### C BC #### [facility] Laboratory [address] [place] [address] Dr. Cortez Younger Urea nitrogen [Mass/Vol] 6.0 mg/dL Critically low 7.0-18.0 [facility] Comment on above: Performed By: #### C BC #### [facility] Laboratory [address] [place] [address] Dr. Cortez Younger Urea nitrogen/Creatinine [Mass ratio] 7.1 mg/mg Normal [facility] Comment on above: Performed By: #### C BC #### [facility] Laboratory [address] [place] [address] Dr. Cortez Younger Consent for Procedure/Surger yon 10-15-2021 Consent for Procedure/Surgery [id number]: 127 Normal [facility] [...] these instructions at home: Medicines ? Take mcwx-tvu-vzkizmu and prescription medicines only as told by [...] the blood stops without treatment. ? Take ysvi-agz-ozmflfn and prescription medicines only as told by your health care provider. ? Drink enough fluid to keep your urine clear or pale yellow. This information is not intended to replace advice given to you by your health care provider. Make sure you discuss any questions you have with your health care provider. Document Released: 06/29/2006 Document Revised: 11/23/2019 Document Reviewed: 08/01/2017 [employer] Patient Education ? 2019 [employer] [facility] Urology Office/Clinic Noteon 10-14-2021 Urology Office/Clinic Note [...] [facility] [address], [place] [address]- Additional Instructions: Patient Education Hematuria, Adult Jaret Finley personally scribed for Dr. Graves on 10/14/2021 13:40:09. . Documentation recorded by the Sharonda yao accurately reflects the services(s) I performed and decis (more content not included)... Normal [facility] Comment on above: Result Comment: Elec tronically Signed By: Gustavo Graves Jr., MD\.br\Date and Time Signed: 10/14/21 13:47 EDT\.br\Electronically Co-Signed By: Jaret Benz\Date and Time Co-Signed: 10/14/21 13:40 EDT SURGICAL PATH REPORTon 01-25 SURGICAL PATH REPORT [facility] Department of Pathology [address] [place] [address] Name: HARISH MCKENNA : 1970 [facility] [id number] Number: Gender: Male Location: [facility] Admit 50 years Attending CRUZITO TOMLINSON JR Age: Provider: Ordering CRUZITO TOMLINSON JR Provider: Consulting: Surgical Pathology Report ACCESSION: COLLECTED DATE/TIME: RECEIVED DATE/TIME: PATHOLOGIST: [id number] 01/23/2021 12:05 EDT 01/24/2021 12:05 EDT ALVIN CADET MD Final Diagnosis Report for [facility], [place] ANTRUM, BIOPSY: - MILD CHRONIC GASTRITIS. [...] MP/ts 01/24/2021 Tissue pathology report for: [facility], [address] [place] [address]; Print Date/ 01/25/2021 12:34 EDT Number: Time: [facility] [address] [place] [id number] Name: HARISH MCKENNA : 1970 [facility] [id number] Number: Gender: Male Location: [facility] Admit 50 years Attending CRUZITO TOMLINSON JR Age: Provider: Ordering CRUZITO TOMLINSON JR Provider: Consulting: Surgical Pathology Report ACCESSION: COLLECTED DATE/TIME: RECEIVED DATE/TIME: PATHOLOGIST: [id number] 01/23/2021 12:05 EDT 01/24/2021 12:05 EDT ALVIN CADET MD Gross Description PATHOLOGY SERVICES PROVIDED BY [employer] (CLIA #[id number]) in cooperation with [facility] at [address] [place] [address] (CLIA #[id number]) Microscopic Diagnosis NOTE: One or more of the reagents used to perform assays on this specimen MAY have contained components considered to be analyte specific reagents ( ASRs). ASRs have not been cleared or approved by the U.S. Food and Drug Administration. The performance characteristics of these assays have been determined by the Department of Pathology at [facility]. This assay was performed subsequent to the H and E examination. Appropriate positive and negative controls were examined with appropriate reactivity. Codes CPT CODE: 39146 + 12936 Print Date01/25/2021 12:34 EDT Number: Time: Normal [facility] Comment on above: Performed By: #### [id number] #### [facility] [address] [place], [place] [address] Distance Learning Unit Leader: Alvin Cadet MD Vital Signs Date Time Vital Sign Value Performing Clinician Facility 03-25-2023 13:30-0400 Body height 177.8 cm Mahnaz Roth Other [facility] Other 03-25-2023 13:30-0400 Body mass index (BMI) [Ratio] 18.65 kg/m2 Mahnaz Roth Other [facility] Other 03-25-2023 13:30-0400 Body temperature 98.4 [degF] Mahnaz Roth Other [facility] Other 03-25-2023 13:30-0400 Body weight 58.97 kg Mahnaz Roth Other [facility] Other 03-25-2023 13:30-0400 Diastolic blood pressure 87 mm[Hg] Mahnaz Marcelinow Other [facility] Other 03-25-2023 13:30-0400 Systolic blood pressure 135 mm[Hg] Mahnaz Marcelinow Other [facility] Other 12-24-2021 09:50-0400 Blood Pressure Location Gustavo Graves Jr. [facility] 12-24-2021 09:50-0400 Diastolic blood pressure 76 mm[Hg] Gustavo Graves Jr. [facility] 12-24-2021 09:50-0400 Heart rate 68 /min Gustavo Graves Jr. [facility] 12-24-2021 09:50-0400 Systolic blood pressure 132 mm[Hg] Gustavo Star Manley [facility] Encounters Encounter Date Encounter Type Care Provider Facility Start: 08-21-2023 End: 08-21-2023 ambulatory Mahnaz Ira Other [facility] Other Start: 08-21-2023 Telephone encounter Mahnaz Ira [facility] Start: 07-22-2023 Telephone encounter Mahnaz Ira [facility] Start: 07-22-2023 End: 07-22-2023 ambulatory MATY MEDEIROS [facility] Other Start: 06-24-2023 End: 06-24-2023 ambulatory Mahnaz Ira Other [facility] Other Start: 06-24-2023 Telephone encounter Mahnaz Ira [facility] Start: 05-28-2023 End: 05-28-2023 ambulatory Mahnaz Ira Other [facility] Other Start: 05-28-2023 Telephone encounter Mahnaz Ira [facility] Start: 05-19-2023 End: 05-19-2023 ambulatory Mahnaz Ira Other [facility] Other Start: 05-19-2023 Office outpatient visit 15 minutes Mahnaz Ira [facility] Start: 04-21-2023 End: 04-21-2023 ambulatory Mahnaz Ira Other [facility] Other Start: 04-21-2023 Office outpatient visit 15 minutes Mahnaz Ira [facility] Start: 04-07-2023 End: 04-07-2023 ambulatory Mahnaz Ira Other [facility] Other Start: 04-07-2023 Telephone encounter Mahnaz Roth [facility] Start: 04-02-2023 End: 04-02-2023 ambulatory Mahnaz Roth Other [facility] Other Start: 04-02-2023 Telephone encounter Mahnaz Roth [facility] Start: 04-01-2023 End: 04-01-2023 ambulatory Mahnaz Roth Other [facility] Other Start: 04-01-2023 Telephone encounter Mahnaz Roth [facility] Start: 03-25-2023 End: 03-25-2023 ambulatory Mahnaz Roth Other [facility] Other Start: 03-25-2023 Office outpatient ne w 60 minutes Mahnaz Roth [facility] Start: 11-13-2022 End: [...] procedure Gustavo Graves Jr. [facility] Start: 12-17-2021 End: 12-19-[address] DOCTOR BENNETT Facility:[facility] Start: 12-12-2021 End: 12-13-2021 ambulatory LAMAR TURNER Facility: Start: 12-05-2021 End: 12-06-2021 ambulatory Heri MURRELL Facility:[facility] Start: 12-05-2021 End: 12-05-2021 Patient encounter procedure Gustavo Graves Jr. [facility] Start: 12-05-2021 ambulatory Heri MURRELL Facility :[facility] Start: 12-03-2021 End: 12-04-2021 ambulatory JERI PURCELL Facility: Start: 10-14-2021 End: 10-15-2021 ambulatory Heri MURRELL Facility: [facility] Start: 09-19-2021 ambulatory Heri MURRELL Facility :[facility] Start: 12-11-2017 End: 12-12-2017 Patient encounter procedure Tunde Das Facility:[facility] Procedures Date Procedure Procedure Detail Performing Clinician Start: 10-14-2021 Cystoscopy Gustavo flores Jr. Start: 09-13-2019 Cystoscopy Gustavo flores Jr. Cholecystectomy Gustavo Graves Jr. Counseling Mahnaz corcoran Other Immunizations Immunization Date Immunization Notes Care Provider Oswaldo alexa 10-22-2020 SARS-CoV-2 (COVID-19 ) mRNA BNT-162b2 vax Gustavo Graves Jr. [facility] 10-01-2020 SARS-CoV-2 (COVID-19 ) mRNA BNT-162b2 vax Gustavo Graves Jr. [facility] Payers Date Payer Category Payer Unknown [id number] 2.16.8 40.1.709434.3.579.2.727 1970 Unknown [id number] 2.16.8 40.1.251225.3.579.2.727 1970 Unknown [id number] 2.16.8 40.1.086884.3.579.2.727 1970 Unknown [id number] 2.16.8 40.1.561982.3.579.2.727 1970 Unknown [id number] 2.16.8 40.1.746157.3.579.2.727 1970 Unknown [id number] 2.16.84 0.1.666110.3.579.2.593 1970 Unknown [id number] 2.16.84 0.1.636723.3.579.2.593 1970 Unknown [id number] 2.16.84 0.1.555278.3.579.2.593 1970 Unknown [id number] 2.16.84 0.1.134463.3.579.2.593 1970 Unknown [id number] 2.16.84 0.1.885044.3.579.2.593 1970 Unknown [id number] 2.16.84 0.1.518343.3.579.2.593 1970 Unknown [id number] 2.16.84 0.1.171899.3.579.2.593 1970 Unknown [id number] 2.16.84 0.1.901273.3.579.2.593 1970 Unknown [id number] 2.16.84 0.1.098762.3.579.2.593 1970 Unknown [id number] 2.16.84 0.1.102124.3.579.2.593 1970 Unknown [id number] 2.16.84 0.1.127093.3.579.2.593 1970 Unknown [id number] 2.16.84 0.1.749315.3.579.2.593 1970 Unknown [id number] 2.16.84 0.1.948319.3.579.2.593 1970 Unknown [id number] 2.16.84 0.1.424567.3.579.2.593 1970 Unknown [id number] 2.16.84 0.1.364420.3.579.2.593 1970 Unknown [id number] 2.16.84 0.1.968596.3.579.2.593 1970 Unknown [id number] 2.16.84 0.1.162561.3.579.2.593 1970 Unknown [id number] 2.16.84 0.1.727886.3.579.2.593 1970 Unknown [id number] 2.16.84 0.1.927663.3.579.2.593 1970 Unknown [id number] 2.16.84 0.1.789762.3.579.2.593 1970 Unknown [id number] 2.16.84 0.1.067208.3.579.2.1286 1960 Medicaid [id number] 1960 Medicare [id number] 1960 Self-pay Social History Date Type Detail Facility Start: 10-14-2021 Tobacco smoking status Ex-smoker (fi nding) [facility] Sex Assigned At Male [facility] Functional Status Date Assessment Result Facility 12-24-2021 Functional Status N/A [facility] Clinical Notes 12-05-2021 to 08-21-2023 Note Date & Type Note Facility 08-21-2023 Evaluation note Encounter Date Diagnosis Assessment Notes Aug, Chronic pain (ICD-10 - G89.29) OAR[facility] reviewed, consistent with Rx. MME 60 mg/day [facility] Other 01-10-2024 Evaluation note* Encounter Date Diagnosis Assessment Notes Treatment Notes Treatment Clinical Notes Jul, Chronic pain (ICD-10 - G89.29) OARRS reviewed, consistent with Rx. Also has benzo prescribed by P and pregabalin by neurology [facility] Other 12-13-2023 Evaluation note* Encounter Date Diagnosis Assessment Notes Treatment Notes Treatment Clinical Notes Jun, Chronic pain (ICD-10 - G89.29) [facility] Other 11-16-2023 Evaluation note* Encounter Date Diagnosis Assessment Notes Treatment Notes Treatment Clinical Notes May, Chronic pain (ICD-10 - G89.29) OARRS reviewed, consistent with Rx [facility] Other 11-07-2023 Evaluation note* Encounter Date Diagnosis [...] at bedtime instead of using PRN only [facility] Other 10-10-2023 Evaluation note* Encounter Date Diagnosis Assessment Notes Treatment Notes Treatment Clinical Notes Apr, Chronic pain (ICD-10 - G89.29) OARRS reviewed, consistent with Rx. Harish reports some relief with oxycodone 10 mg tabs, and is using med 3-4x/daily. Continue same without change. Apr, Constipation (ICD-10 - K59.00) Improved elimination with daily use of senna [facility] Other 09-26-2023 Evaluation note* Encounter Date Diagnosis [...] reported some lose stools after using routinely Silvigen Other 09-20-2023 Evaluation note* Encounter Date Diagnosis Assessment Notes Treatment Notes Treatment Clinical Notes Mar, Chronic pain (ICD-10 - G89.29) OARRS reviewed, consistent with recent Rx. Increasing frequency of oxycodone to q6h PRN to improve pain control. Mar, Constipation (ICD-10 - K59.00) Harish is using Miralax daily but remains constipated, will add stimulant laxative Silvigen Other 09-13-2023 Evaluation note* Encounter Date Diagnosis [...] of Constipation hand out provided to patient [facility]vigen Other 04-06-2023 NoteCONSULTATION CONSULTATION DATE: 10/16/2022 TO: [...] 25 mg daily, Lyrica 200 mg t.i.d., Commerce 7.5 mg b.i.d. He currently uses medical [...] THC if we are to continue with Commerce. However, at this point, I do not [...] our patients to inform us about any irie-ggn-orbuqoa medications or herbal remedies/nutritional supplements/alternative remedies. 2. [...] treatment options with their primary care provider.[facility] [id number] Note CONSULTATION CONSULTATION DATE: 06/26/2022 HISTORY OF [...] Lyrica 200 mg t.i.d. per his neurologist, Commerce 7.5/325 b.i.d., Cymbalta, baclofen and Ocrevus. Patient's [...] medication changes today. He was increased to Commerce 7.5/325 at his last visit, and the patient feels it is somewhat helpful. We will continue to medically manage him only. Patient will be seen in the clinic in three months' time unless otherwise indicated.[facility] [id number] NoteCONSULTATION CONSULTATION DATE: 03/13/2022 HISTORY OF PRESENT ILLNESS: This is 51-year-old gentleman, well known to the Pain Clinic, returning for a three month follow up. This gentleman has history of MS, chronic pain syndrome and diffuse neuropathic pain, which is chronically medically managed with a medication regimen. Current medications include Mobic 15 mg daily, Lyrica 200 mg t.i.d., Commerce 5/325 t.i.d., baclofen, Trileptal and amitriptyline. Patient recently suffered a family loss and reportedly has lost about 12 pounds in weight. He does ambulate with a cane and is stable with that. He is requesting today that we change his Commerce from t.i.d. to 7.5 b.i.d. as he [...] pain. PLAN: We will check from his Commerce 5/325 t.i.d. to 7.5/325 b.i.d. We will maintain his other medications with no dose or frequency change. He will be given a U-Tox in the clinic today. I did discuss vitamin importance as well as supplementing his protein intake with Boost supplements. We will see the patient in three months' time, unless otherwise indicated. Patient is in agreement to this.[facility] [id number] Hospital Discharge instructions Patient Education 12/24/2021 10:47:00 [...] including vitamins, herbs, eye drops, creams, and kaka-bik-qasebud medicines. This also includes: ?Medicines to assist [...] 08/01/2005 Document Revised: 06/11/2018 Document Reviewed: 04/05/2018 [employer] Patient Education 2020 Plan[employer]ap. Follow Up Care 12/05/2021 14:04:21 With:Star Manley MD, Gustavo Orlando URO Address: [facility] [address], [place] [address]- When:Within 6 Month(s) Comments:w/ PVR [facility] 05-26-2022 Note [id number]:[email or web address] 12-05-2021 NoteUrolift ? Some men may experience [...] personnel to use a Coude (pronouncedcoo-day) tipped catheter.[facility]05-26-2022 Hospital Discharge instructions Patient Education 12/05/2021 13:20:29 [...] [facility] [address], [place] [address]- Business (1) When:2 to 4 weeks Comments:PVR [facility] Plan note Future Appointments Appointment Date:12/24/2021 09:30:00 AM Scheduled Provider:Gustavo Graves Jr., MD Location[facility] App[facility] Future Appointments Appointment Date:07/01/2022 10:45:00 AM Scheduled Provider:Gustavo Graves Jr., MD Location:[facility] Appointment Type:URO Office Visit [facility] evaluation [facility]No [facility] Other History general Narrative - Reported* Type Description Date Medical History multiple sclerosis Medical History bipolar Medical History GERD Surgical History cholecystectomy [facility] Fision Other Hospital course Narrative No data available for this section [facility] No data available for this section [facility] Summary Purpose Family History No Family History [...] content) DATE CREATED AUTHOR 09/18/2018 [facility] DATE CREATED AUTHOR AUTHOR'S ORGANIZ ATION 01/25/2021 [facility] DATE CREATED AUTHOR AUTHOR'S ORGANIZ ATION 09/16/2022 [facility] DATE CREATED AUTHOR AUTHOR'S ORGANIZ ATION 11/18/2022 [facility] DATE CREATED AUTHOR AUTHOR'S ORGANIZ ATION 07/26/2023 [facility] Care Team (unrecognized sect ion and content) Personnel Name: BRANDIN DALRING, BUBBA Chand Address: [address] [place] [phone] REASON FOR VISIT (unrecogniz ed section and [...] BE BASED ON THE PRIMARY CLINICAL RECORDS. [employer] provides no warranty or guarantee of the accuracy or completeness of information in this document.
--- NOTE | 2023-08-26 10:00 | P.HP_ITS ---
H&P: HPI History of Present Illness Chief complaint: SOB Narrative: Patient presented to the emergency room with increasing shortness of breath. Brought in his O2 saturation was initially 77%. He was given a 1 hour aerosol treatment with improvement up to 92% but on 6 L. He does not normally wear supplemental oxygen at home. Patient with severe COPD. Patient will be admitted for acute community-acquired pneumonia with acute exacerbation of COPD Review of Systems ROS Status of ROS 10 or more systems reviewed and unremark able except as noted in history and below [facility] Medical History (Updated 08/26/23 @ 09:57 by Sridevi Rodas) FH: cholecystectomy ?Z83.79 - Family history of other diseases of the digestive system (ICD-10) Hypertension ?I10 - Essential (primary) hypertension (ICD-10) COPD (chronic obstructive pulmonary disease) ?J44.9 - Chronic obstructive pulmonary disease, unspecified (ICD-10) Multiple sclerosis ?G35 - Multiple sclerosis (ICD-10) Social History (Updated 08/26/23 @ 09:58 by Sridevi Rodas) Within the past year, how often did you have a drink containing alcohol: never Score interpretation: A score less than 4 is consistent with normal alcohol consumption. Smoking status: Current every day smoker Non-prescribed substance use: cannabis (any form) Previous occupational history: disabled Highest level of school completed/degree received: high school graduate Meds Home Medications and Allergies Home Medications Medication Instructions Recorded Confirmed Type albuterol sulfate 2.5 mg/3 mL 2.5 mg inhalation Q6H PRN 08/26/23 08/26/23 History (0.083 %) solution for nebulization shortness of breath or wheezing baclofen 20 mg tablet 20 mg PO Q8H 08/26/23 08/26/23 History budesonide-formoterol HFA 160 2 puff inhalation Q12H 08/26/23 08/26/23 History mcg-4.5 mcg/actuation aerosol inhaler (Symbicort) buspirone 15 mg tablet 15 mg PO TID 08/26/23 08/26/23 History clonazepam 1 mg tablet 1 mg PO Q12H 08/26/23 08/26/23 History duloxetine 60 mg capsule,delayed 120 mg PO DAILY 08/26/23 08/26/23 History release hydralazine 10 mg tablet 10 mg PO Q8H 08/26/23 08/26/23 History losartan 100 mg tablet 100 mg PO DAILY 08/26/23 08/26/23 History metoprolol tartrate 50 mg tablet 75 mg PO Q12H 08/26/23 08/26/23 History oxcarbazepine 300 mg tablet 300 mg PO BID 08/26/23 08/26/23 History oxycodone 10 mg tablet 10 mg PO Q6H PRN pain 08/26/23 08/26/23 History pantoprazole 40 mg tablet,delayed 40 mg PO BID 08/26/23 08/26/23 History release pregabalin 200 mg capsule 200 mg PO Q8H 08/26/23 08/26/23 History primidone 50 mg tablet 100 mg PO BEDTIME 08/26/23 08/26/23 History quetiapine 50 mg tablet 50 mg PO .QHS 08/26/23 08/26/23 History sennosides 8.6 mg tablet (senna) 17.2 mg PO BID PRN constipation 08/26/23 08/26/23 History Allergies Allergy/AdvReac Type Severity Reaction Status Date / Time paroxetine [From Paxil] Allergy Intermediate Hallucinati Verified 08/26/23 05:36 ng venlafaxine [From Effexor] Allergy Intermediate Hallucinati Verified 08/26/23 05:36 ng Exam Constitutional Vital Signs, click to edit/add: Last Vital Signs Temp 98.8 F 08/26/23 05:27 Pulse 97 H 08/26/23 12:00 Resp 24 08/26/23 09:00 BP 128/90 08/26/23 06:16 Pulse Ox 92 L 08/26/23 10:11 O2 Del Method Nasal Cannula 08/26/23 10:11 O2 Flow Rate 6 08/26/23 10:11 Documenting provider has reviewed patient's vital signs: yes Common normals: apparent distress (Significant conversational dyspnea) Respiratory Common normals: no retractions; abnormal respiratory effort Effort & inspection: tachypneic Auscultation: rhonchi, wheezes and diminished lung sounds Cardio Common normals: no JVD, regular rate and regular rhythm Neuro Common normals: oriented x3, CN's II-XII intact bilaterally and moves all extremities Results Labs Labs: Short CBC 08/26/23 Range/Units 06:37 WBC 21.5 H (4.0-11.0) 10^3/uL Hgb 12.2 L (14.0-18.0) g/dL Hct 36.5 L (42.0-54.0) % Plt Count 334 (150-450) 10^3/uL BMP 08/26/23 05:40 Sodium 135 L Potassium 4.7 Chloride 98 Carbon Dioxide 28.1 BUN 10.0 Creatinine 0.86 Glucose 94 Calcium 8.7 Liver Function 08/26/23 Range/Units 05:40 Total Bilirubin 0.5 (0.2-1.0) mg/dL AST 37 (15-37) U/L ALT 22 (16-63) U/L Alkaline Phosphatase 109 (46-116) U/L Albumin 2.8 L (3.4-5.0) g/dL ABG ABG results: 08/26/23 06:10 ABG pH 7.446 ABG pCO2 39.2 ABG pO2 56.1 L* ABG HCO3 27.0 H ABG O2 Saturation 90.9 ABG Base Excess 3.0 H Assessment and Plan Assessment and Plan (1) Community acquired pneumonia: Qualifiers: Lung location: lower lobe of lung (2) Multiple sclerosis: (3) Hypertension: (4) Hypoxemia: (5) Acute infective exacerbation of chronic obstructive airway disease: Plan Sinus tachycardia, respiratory distress, acute hypoxia with O2 saturation on room air at 77%., Leukocytosis, procalcitonin C+ due to bilateral pneumonia, community-acquired, acute exacerbation of COPD and severe sepsis without shock - IV antibiotics, aerosol treatments frequently. O2 supplementation. Will place as needed Vapotherm. Patient high risk for progression to further hypoxia. Consultation to pulmonology Iron deficiency anemia-monitor daily Hyponatremia-monitor daily History of multiple sclerosis-patient did not feel is in a flare Anxiety and depression-continue with home medications Hypertension-continue with home medications With the severity of the hypoxia, intensity of treatment in the intensive care unit patient was placed as an inpatient status likely 2 to 3-day hospital stay
--- NOTE | 2023-08-26 10:17 | RESP.RT ---
To be done with HHN
[2023-08-26 10:31] LABS: Magnesium 1.9 mg/dL (1.8-2.4)
--- NOTE | 2023-08-26 11:20 | PM.PLPN ---
Progress Note: A&P Assessment and Plan (1) Community acquired pneumonia: Assessment and Plan: 1. Community acquired pneumonia. No identified agent. Multifocal/bilateral. Continue current antibiotics. Monitor for improvement. 2. Severe sepsis secondary to #2. Leukocytosis, tachycardic, tachypneic. Acute respiratory failure. Supportive care. 3. Acute hypoxic respiratory failure. Not on O2 @ home. Currently on 6L/min saturating 92%. Monitor closely. 4. Acute exacerbation of COPD. Bronchodilators, steroids. Monitor for muscle weakness with steroids given multiple sclerosis history. 5. Relapsing-remitting multiple sclerosis. On Ocrevus, due today actually (which he is not going to get). Denies any aspiration/choking. F/U neurology. 6. Tobacco abuse. Smoking cessation! Qualifiers: Lung location: lower lobe of lung Subjective Subjective Principal diagnosis: Pneumonia Interval history: Pulmonary initial consult: 53yo male with relapsing-remitting MS presented after ~6 day history of worsening dyspnea. Has COPD diagnosis from smoking, on Symbicort and albuterol nebs at home. Breathing worsened, came to [facility] ER. He was ~77% on RA at initial evaluation. He required a 1 hour continuous albuterol neb treatment which he finally began improving. He was transferred to the ICU and is currently on 6L/min. Imaging consistent with bilateral multifocal pneumonia. Denies any choking or aspiration with MS. He was due for his Ocrevus today. Exam Constitutional Vital Signs, click to edit/add: Last Vital Signs Temp 98.8 F 08/26/23 05:27 Pulse 107 H 08/26/23 10:11 Resp 24 08/26/23 09:00 BP 128/90 08/26/23 06:16 Pulse Ox 92 L 08/26/23 10:11 O2 Del Method Nasal Cannula 08/26/23 10:11 O2 Flow Rate 6 08/26/23 10:11 Documenting provider has reviewed patient's vital signs: yes General appearance: in distress mild and respiratory Nutritional appearance: underweight HENMT Other: No candidiasis. Wearing nasal cannula Chest Common normals: inspection of chest normal Respiratory Other: Diffuse expiratory wheezes and coarse breath sounds - more on the right than the left. Mild tachypnea. Cardio Rate: tachycardic Rhythm: regular rhythm GI Inspection: normal to inspection Extremity Common normals: no clubbing, cyanosis or edema Neuro Sensorium/orientation: awake and alert Psych Attitude: calm
[2023-08-26] MEDS: OXYCODONE HCL 5 MG TABLET 10 MG PO ×2 (11:52→19:30)
[2023-08-26] MEDS: OXcarbazepine 150 MG TABLET 300 MG PO ×2 (11:53→22:12)
[2023-08-26] MEDS: DULOXETINE HCL 60 MG CAPSULE.DR 120 MG PO (11:53)
[2023-08-26] MEDS: PIPERACILLIN SODIUM/TAZOBACTAM 3.375 GM in 0.9 % SODIUM CHLORIDE 50 ML IV ×2 (11:53→19:29)
[2023-08-26] MEDS: METOPROLOL TARTRATE 50 MG TABLET 75 MG PO ×2 (11:53→22:13)
[2023-08-26] MEDS: CLONAZEPAM 0.5 MG TABLET 1 MG PO ×2 (11:53→22:13)
[2023-08-26] MEDS: LOSARTAN POTASSIUM 50 MG TABLET 100 MG PO (11:54)
[2023-08-26] MEDS: BUSPIRONE HCL 15 MG TABLET PO ×2 (13:14→22:13)
[2023-08-26] MEDS: BACLOFEN 10 MG TABLET 20 MG PO ×2 (13:14→22:12)
[2023-08-26] MEDS: HYDRALAZINE HCL 10 MG TABLET PO ×2 (13:14→22:12)
[2023-08-26] MEDS: PREGABALIN 100 MG CAPSULE 200 MG PO ×2 (13:14→22:13)
[2023-08-26] MEDS: PANTOPRAZOLE SODIUM 40 MG VIAL IV (13:14)
[2023-08-26] MEDS: PRIMIDONE 50 MG TABLET 100 MG PO (22:12)
--- NOTE | 2023-08-26 23:42 | RESP.RT ---
decreased down to 2L
[2023-08-27] VITALS (56 sets, daily range): BP systolic 116–131; BP diastolic 75–84; PULSE 71–101; RESP 5–23; TEMP 36.4–36.8; O2SAT 88–96
[2023-08-27] MEDS: HYOSCYAMINE SULFATE 0.125 MG TAB.SUBL SL (01:18)
[2023-08-27] MEDS: OXYCODONE HCL 5 MG TABLET 10 MG PO ×4 (01:18→23:33)
[2023-08-27] MEDS: QUETIAPINE FUMARATE 25 MG TABLET 50 MG PO ×2 (01:19→21:34)
[2023-08-27] MEDS: PIPERACILLIN SODIUM/TAZOBACTAM 3.375 GM in 0.9 % SODIUM CHLORIDE 50 ML IV ×3 (03:42→19:36)
[2023-08-27] MEDS: IPRATROPIUM/ALBUTEROL SULFATE 3 ML AMPUL.NEB IH ×6 (03:51→23:04)
[2023-08-27 04:35] LABS: Basophils Percent Auto 0.1 % (0.2-2.0); Hematocrit 30.9 % (42.0-54.0); Hemoglobin 10.2 g/dL (14.0-18.0); Immature Granulocytes Abs Auto 0.09 10^3/uL (0.00-0.03); Immature Granulocytes Pct Auto 0.7 % (0.0-0.5); Lymphocytes Absolute Auto 0.8 10^3/uL (1.2-3.8); Lymphocytes Percent Auto 5.8 % (20.5-60.0); Mean Corpuscular Hemoglobin 29.8 pg (25.9-34.0); Mean Corpuscular Volume 90.4 fL (80.0-94.0); Mean Platelet Volume 10.3 fL (9.5-13.5); Monocytes Absolute Auto 0.2 10^3/uL (0.3-0.8); Monocytes Percent Auto 1.4 % (1.7-12.0); Platelet Count 318 10^3/uL (150-450); Red Blood Count 3.42 10^6/uL (4.70-6.10); Red Cell Distribution Width 13.3 % (11.0-15.0)
[2023-08-27 05:12] LABS: Alanine Aminotransferase 13 U/L (16-63); Albumin Globulin Ratio 0.6; Albumin Level 2.1 g/dL (3.4-5.0); Alkaline Phosphatase 74 U/L (46-116); Anion Gap 11.5; Aspartate Amino Transferase 8 U/L (15-37); BUN Creatinine Ratio 21.2; Bilirubin Total 0.3 mg/dL (0.2-1.0); Calcium 8.4 mg/dL (8.5-10.1); Carbon Dioxide 28.6 mmol/L (21.0-32.0); Chloride 101 mmol/L (98-107); Estimated GFR (African America >60 (>=60); Estimated GFR (Non-African Ame >60 (>=60); Globulin 3.5 g/dL; Glucose 135 mg/dL (74-106); Potassium 4.1 mmol/L (3.5-5.1); Sodium 137 mmol/L (136-145); Total Protein 5.6 g/dL (6.4-8.2)
[2023-08-27] MEDS: BACLOFEN 10 MG TABLET 20 MG PO ×3 (06:09→21:34)
[2023-08-27] MEDS: PREGABALIN 100 MG CAPSULE 200 MG PO ×3 (06:09→21:35)
[2023-08-27] MEDS: METHYLPREDNISOLONE SOD SUCC PF 125 MG/2 ML VIAL IVP ×4 (06:09→23:33)
[2023-08-27] MEDS: HYDRALAZINE HCL 10 MG TABLET PO ×2 (06:09→13:05)
[2023-08-27] MEDS: BUSPIRONE HCL 15 MG TABLET PO ×3 (06:09→21:35)
--- NOTE | 2023-08-27 07:43 | PM.PLPN ---
Progress Note: A&P Assessment and Plan (1) Community acquired pneumonia: Qualifiers: Lung location: lower lobe of lung Plan 1. Community acquired pneumonia. No identified agent. He appears to be improving clinically, but despite bronchodilators and PEP, having difficulty expectorating. Discussed with RT - will add hypertonic saline nebs. Continue PEP. 2. Severe sepsis secondary to #2. Clinically improving. 3. Acute hypoxic respiratory failure. Clinically improving - O2 down from 6 to 2-3L/min. 4. Acute exacerbation of COPD. Bronchodilators, steroids. Monitor for muscle weakness with steroids given multiple sclerosis history. Smoking cessation. Outpatient F/U, 5. Relapsing-remitting multiple sclerosis. On Ocrevus, was due 08/26/2023. Denies any aspiration/choking. F/U neurology. 6. Tobacco abuse. Smoking cessation! Subjective Subjective Principal diagnosis: Pneumonia Interval history: Patient states he feels about the same - no significant improvement in dyspnea. Having difficulty expectorating - using PEP. Despite this, he appears to be improving clinically - O2 demands have decreased down to 2-3L/min. No new significant issues over night. Discussed case with RT. Exam Constitutional Vital Signs, click to edit/add: Last Vital Signs Temp 98.2 F 08/27/23 04:19 Pulse 79 08/27/23 06:57 Resp 12 08/27/23 04:19 BP 131/84 08/27/23 04:19 Pulse Ox 92 L 08/27/23 06:57 O2 Del Method Nasal Cannula 08/27/23 06:57 O2 Flow Rate 2 08/27/23 06:57 Documenting provider has reviewed patient's vital signs: yes Common normals: alert Nutritional appearance: underweight Orientation/consciousness: Yes awake HENMT Other: Wearing nasal cannula. Having a neb treatment at this time. Chest Common normals: inspection of chest normal Respiratory Other: Having more air movement now. Some inspiratory and expiratory wheezes. Crackles in bases. Breathing not labored like yesterday. Cardio Common normals: regular rhythm Rate: regular rate Rhythm: regular rhythm GI Inspection: normal to inspection Extremity Common normals: no clubbing, cyanosis or edema Neuro Sensorium/orientation: awake and alert Psych Speech: normal speech
[2023-08-27] MEDS: METOPROLOL TARTRATE 50 MG TABLET 75 MG PO ×2 (09:06→21:35)
[2023-08-27] MEDS: LOSARTAN POTASSIUM 50 MG TABLET 100 MG PO (09:07)
[2023-08-27] MEDS: OXcarbazepine 150 MG TABLET 300 MG PO ×2 (09:07→21:33)
[2023-08-27] MEDS: CLONAZEPAM 0.5 MG TABLET 1 MG PO ×2 (09:07→21:35)
[2023-08-27] MEDS: DULOXETINE HCL 60 MG CAPSULE.DR 120 MG PO (09:07)
[2023-08-27] MEDS: LEVOFLOXACIN IN DEXTROSE 5 % 750 MG/150 ML IV.SOLN 100 MG IV (09:08)
--- NOTE | 2023-08-27 11:28 | PM.PN ---
Progress Note: Subjective Subjective Interval history: Patient stable this am. Continues to have SOB and fatigue with exertion. Mild cough and sputum. Afebrile. Normal appetite and no emesis or diarrhea. No chest pain or palpitations. Weaning oxygen and down to 1 LPM. Exam Constitutional Vital Signs, click to edit/add: Last Vital Signs Temp 98.2 F 08/27/23 04:19 Pulse 79 08/27/23 10:00 Resp 18 08/27/23 08:00 BP 131/84 08/27/23 04:19 Pulse Ox 92 L 08/27/23 08:00 O2 Del Method Nasal Cannula 08/27/23 06:57 O2 Flow Rate 2 08/27/23 06:57 Documenting provider has reviewed patient's vital signs: yes Common normals: no apparent distress, oriented x3 and alert HENMT Common normals: normocephalic Eye Common normals: PERRL Respiratory Auscultation: diminished lung sounds Cardio Common normals: regular rate, no gallops, no murmurs and no rub GI Common normals: Normal to inspection, nondistended, normoactive bowel sounds present and non-tender Extremity Common normals: no pedal edema Progress Note: Objective Labs Labs: Short CBC 08/27/23 Range/Units 03:43 WBC 13.0 H (4.0-11.0) 10^3/uL Hgb 10.2 L (14.0-18.0) g/dL Hct 30.9 L (42.0-54.0) % Plt Count 318 (150-450) 10^3/uL BMP 08/27/23 03:43 Sodium 137 Potassium 4.1 Chloride 101 Carbon Dioxide 28.6 BUN 14.0 Creatinine 0.66 L Glucose 135 H Calcium 8.4 L Liver Function 08/27/23 Range/Units 03:43 Total Bilirubin 0.3 (0.2-1.0) mg/dL AST 8 L (15-37) U/L ALT 13 L (16-63) U/L Alkaline Phosphatase 74 (46-116) U/L Albumin 2.1 L (3.4-5.0) g/dL Progress Note: A&P Assessment and Plan (1) Community acquired pneumonia: Qualifiers: Lung location: lower lobe of lung (2) Severe sepsis: (3) Acute hypoxic respiratory failure: (4) Acute infective exacerbation of chronic obstructive airway disease: (5) Hypertension: (6) Multiple sclerosis: Plan Patient slowly improving and continue antibiotics, steroids, and breathing treatments. Wean O2 as tolerated. Continue PEP and increase ambulation. Likely ready for discharge in next 1-2 days.
[2023-08-27] MEDS: SODIUM CHLORIDE 3% INHALATION 15 ML NEB 3 ML IH ×3 (11:36→23:04)
--- NOTE | 2023-08-27 11:37 | CM.NOTE ---
Rounds made with Dr. Wolfe. Attempt to wean oxygen and Mr. Emmanuel encouraged to ambulate. No discharge today.
--- NOTE | 2023-08-27 11:37 | CM.NOTE ---
Important Message from Medicare reviewed with Mr. Emmanuel. No questions. Form signed copy to chart, original to patient.
[2023-08-27] MEDS: PANTOPRAZOLE SODIUM 40 MG VIAL IV (13:05)
[2023-08-27 13:06] LABS: Bilirubin Urine NEGATIVE (NEGATIVE); Blood Urine NEGATIVE (NEGATIVE); Clarity Urine CLEAR (CLEAR); Color Urine YELLOW (YELLOW); Glucose Urine UA NEGATIVE (NEGATIVE); Ketones Urine TRACE mg/dL (NEGATIVE); Leukocyte Esterase Urine NEGATIVE (NEGATIVE); Nitrite Urine NEGATIVE (NEGATIVE); Protein Urine 30 mg/dL (NEG/TRACE); Urobilinogen Urine 0.2 EU/dL (0.2-1.0); pH Urine 6.5 (5.0-9.0)
[2023-08-27 13:09] LABS: Urine Microscopic Indicated YES
[2023-08-27 13:17] LABS: Bacteria Urine TRACE #/HPF (NONE SEEN); RBC Urine 0-2 #/HPF (0-2); WBC Urine NONE SEEN #/HPF (NONE SEEN)
[2023-08-27 13:18] LABS: Cast Seen? NONE SEEN #/LPF (NONE SEEN); Crystals Seen? None Seen #/HPF (None Seen); Mucus Urine NONE SEEN (NONE SEEN); Squamous Epithelial Cell Urine RARE #/LPF (NONE/RARE); Urine Culture Indicated NO
--- NOTE | 2023-08-27 15:54 | SWNOTE1 ---
SW met with pt to discuss dc needs. Pt lives at home with his son, daughter in law, and grandchild. They do work until 3:00. Pt does voice he struggles to prepare meals at time. He has a tile kitchen floor and has a hard time using his rollator at home. He just got a motorized scooter for in the home and he hasn't figured out how to cook while sitting in it. Pt has walkers and canes at home as well. Pt mentioned to SW that his friend mentioned going to nursing facility for a short time for rehab. SW spoek with nursing and pt does not have physical therapy ordered at this time because pt was out in the hallways walking a few laps. SW expressed to pt he would not qualify since he has been up and walking laps. Pt voiced understanding. Pt mentioned [facility] to case management. DANITA asked pt about this and he stated it is some program that is like medicaid but help in the home? He then showed SW a phone number, but it was called [employer]. Unsure at this time if pt would qualify for home health, depending if he is home bound? Would not need therapy, possibly nurse, but pt thought they would cook and clean? SW and case management let pt know they do not do that. SW called [facility] and it is HH, but they do not have patient on there list. SW then called [facility]. They could see that pt's medicaid is processing. [employer] is just a company that is a liason between medicaid and jobs and family services. They did do an assessment on patient on August 19. [facility] [employer] does not provide aides or help in the home. DANITA spoke with [employer] and they just help people who may have medical daignosis to qualify for medicaid and they make too much money. She stated SW would need to go through area office on aging. SW to provide pt with information on passport and area office on aging.
--- NOTE | 2023-08-27 16:15 | SWNOTE1 ---
[facility] also stated he will not be able to get any extra services in the home until everything has processed through them. SW to update patient.
--- NOTE | 2023-08-27 21:00 | RESP.RT ---
placed pt on 2L and Sp02 increased to 94%
[2023-08-27] MEDS: PRIMIDONE 50 MG TABLET 100 MG PO (21:35)
[2023-08-28] VITALS (22 sets, daily range): BP systolic 104–128; BP diastolic 63–77; PULSE 64–96; RESP 16–18; TEMP 36.4–36.6; O2SAT 81–94
[2023-08-28] MEDS: PIPERACILLIN SODIUM/TAZOBACTAM 3.375 GM in 0.9 % SODIUM CHLORIDE 50 ML IV ×3 (03:37→20:09)
[2023-08-28] MEDS: IPRATROPIUM/ALBUTEROL SULFATE 3 ML AMPUL.NEB IH ×6 (03:50→23:08)
[2023-08-28 05:09] LABS: Basophils Percent Auto 0.1 % (0.2-2.0); Hematocrit 31.9 % (42.0-54.0); Hemoglobin 10.7 g/dL (14.0-18.0); Immature Granulocytes Abs Auto 0.07 10^3/uL (0.00-0.03); Immature Granulocytes Pct Auto 0.7 % (0.0-0.5); Lymphocytes Absolute Auto 0.8 10^3/uL (1.2-3.8); Lymphocytes Percent Auto 7.8 % (20.5-60.0); Mean Corpuscular HGB Conc 33.5 g/dL (29.9-35.2); Mean Corpuscular Hemoglobin 30.7 pg (25.9-34.0); Mean Corpuscular Volume 91.7 fL (80.0-94.0); Monocytes Absolute Auto 0.2 10^3/uL (0.3-0.8); Monocytes Percent Auto 2.3 % (1.7-12.0); Neutrophils Absolute Auto 8.8 10^3/uL (1.4-6.5); Neutrophils Percent Auto 89.1 % (43.0-75.0); Platelet Count 364 10^3/uL (150-450); Red Blood Count 3.48 10^6/uL (4.70-6.10); Red Cell Distribution Width 13.4 % (11.0-15.0); White Blood Count 9.9 10^3/uL (4.0-11.0)
[2023-08-28] MEDS: PREGABALIN 100 MG CAPSULE 200 MG PO ×3 (05:12→21:16)
[2023-08-28] MEDS: METHYLPREDNISOLONE SOD SUCC PF 125 MG/2 ML VIAL IVP ×3 (05:12→18:57)
[2023-08-28] MEDS: BACLOFEN 10 MG TABLET 20 MG PO ×3 (05:13→21:17)
[2023-08-28] MEDS: BUSPIRONE HCL 15 MG TABLET PO ×3 (05:13→21:17)
[2023-08-28 05:58] LABS: Alanine Aminotransferase 14 U/L (16-63); Albumin Globulin Ratio 0.6; Albumin Level 2.2 g/dL (3.4-5.0); Alkaline Phosphatase 68 U/L (46-116); Anion Gap 12.6; Aspartate Amino Transferase 12 U/L (15-37); BUN Creatinine Ratio 23.4; Bilirubin Total 0.2 mg/dL (0.2-1.0); Calcium 8.4 mg/dL (8.5-10.1); Chloride 100 mmol/L (98-107); Estimated GFR (African America >60 (>=60); Estimated GFR (Non-African Ame >60 (>=60); Globulin 3.4 g/dL; Glucose 159 mg/dL (74-106); Potassium 3.6 mmol/L (3.5-5.1); Sodium 134 mmol/L (136-145); Total Protein 5.6 g/dL (6.4-8.2)
[2023-08-28] MEDS: SODIUM CHLORIDE 3% INHALATION 15 ML NEB 3 ML IH ×4 (07:38→23:08)
[2023-08-28] MEDS: LEVOFLOXACIN IN DEXTROSE 5 % 750 MG/150 ML IV.SOLN 100 MG IV (08:27)
[2023-08-28] MEDS: CLONAZEPAM 0.5 MG TABLET 1 MG PO ×2 (08:27→21:16)
[2023-08-28] MEDS: OXYCODONE HCL 5 MG TABLET 10 MG PO ×3 (08:27→21:17)
[2023-08-28] MEDS: DULOXETINE HCL 60 MG CAPSULE.DR 120 MG PO (08:27)
[2023-08-28] MEDS: OXcarbazepine 150 MG TABLET 300 MG PO ×2 (08:27→21:16)
[2023-08-28] MEDS: LOSARTAN POTASSIUM 50 MG TABLET 100 MG PO (08:28)
[2023-08-28] MEDS: METOPROLOL TARTRATE 50 MG TABLET 75 MG PO ×2 (08:28→21:16)
--- NOTE | 2023-08-28 10:52 | CM.NOTE ---
Rounds made with Dr. Wolfe, no discharge today. Pt continues on oxygen at this time will attempt to wean.
--- NOTE | 2023-08-28 11:49 | PM.PN ---
Progress Note: Subjective Subjective Interval history: Patient slowly improving. Continues to have SOB and fatigue with exertion. Ambulated in lee and caused worsening SOB and fatigue. Mild cough and sputum. Afebrile. Normal appetite and no emesis or diarrhea. No chest pain or palpitations. Weaning oxygen and off in afternoon but back on 3 LPM. Exam Constitutional Vital Signs, click to edit/add: Last Vital Signs Temp 97.7 F 08/28/23 05:08 Pulse 64 08/28/23 11:39 Resp 18 08/28/23 05:08 BP 104/63 08/28/23 05:08 Pulse Ox 94 L 08/28/23 11:41 O2 Del Method Nasal Cannula 08/28/23 11:41 O2 Flow Rate 3 08/28/23 11:41 Documenting provider has reviewed patient's vital signs: yes Common normals: no apparent distress, oriented x3 and alert HENMT Common normals: normocephalic Eye Common normals: PERRL and EOMs intact bilaterally Respiratory Auscultation: wheezes and diminished lung sounds Cardio Common normals: regular rate, regular rhythm, no gallops, no murmurs and no rub GI Common normals: Normal to inspection, nondistended, normoactive bowel sounds present and non-tender Extremity Common normals: no pedal edema Progress Note: Objective Labs Labs: Short CBC 08/28/23 Range/Units 04:23 WBC 9.9 (4.0-11.0) 10^3/uL Hgb 10.7 L (14.0-18.0) g/dL Hct 31.9 L (42.0-54.0) % Plt Count 364 (150-450) 10^3/uL BMP 08/28/23 04:23 Sodium 134 L Potassium 3.6 Chloride 100 Carbon Dioxide 25.0 BUN 15.0 Creatinine 0.64 L Glucose 159 H Calcium 8.4 L Liver Function 08/28/23 Range/Units 04:23 Total Bilirubin 0.2 (0.2-1.0) mg/dL AST 12 L (15-37) U/L ALT 14 L (16-63) U/L Alkaline Phosphatase 68 (46-116) U/L Albumin 2.2 L (3.4-5.0) g/dL Urine 08/27/23 Range/Units 12:49 Urine Color Yellow (YELLOW) Urine Clarity Clear (CLEAR) Urine pH 6.5 (5.0-9.0) Ur Specific [place] 1.020 (1.005-1.025) Urine Protein 30 A (NEG/TRACE) mg/dL Urine Glucose (UA) Negative (NEGATIVE) mg/dL Progress Note: A&P Assessment and Plan (1) Community acquired pneumonia: Qualifiers: Lung location: lower lobe of lung (2) Severe sepsis: (3) Acute hypoxic respiratory failure: (4) Acute infective exacerbation of chronic obstructive airway disease: (5) Hypertension: (6) Multiple sclerosis: Plan Slowly improving and continue antibiotics, steroids, and breathing treatments. Wean O2 as tolerated. Increase activity and use PEP. Possible discharge in next 1-2 days.
[2023-08-28] MEDS: SENNOSIDES 8.6 MG TABLET 17.2 MG PO (14:40)
[2023-08-28] MEDS: HYDRALAZINE HCL 10 MG TABLET PO (14:40)
--- NOTE | 2023-08-28 14:40 | CM.NOTE ---
Pt failed walk test, discussed with pt about home oxygen. Pt voices understanding and would like to go with [facility] for oxygen. New Referral sent to [facility] Services.
[2023-08-28] MEDS: PANTOPRAZOLE SODIUM 40 MG VIAL IV (14:41)
--- NOTE | 2023-08-28 17:10 | CM.NOTE ---
[facility] Services called back and will deliver tank to hospital and can accept pt.
[2023-08-28] MEDS: QUETIAPINE FUMARATE 25 MG TABLET 50 MG PO (21:16)
[2023-08-28] MEDS: PRIMIDONE 50 MG TABLET 100 MG PO (21:17)
[2023-08-29] VITALS (12 sets, daily range): BP systolic 124–128; BP diastolic 78–88; PULSE 66–84; RESP 18; TEMP 36.5; O2SAT 90–97
[2023-08-29] MEDS: METHYLPREDNISOLONE SOD SUCC PF 125 MG/2 ML VIAL IVP ×3 (00:36→11:21)
[2023-08-29] MEDS: IPRATROPIUM/ALBUTEROL SULFATE 3 ML AMPUL.NEB IH ×3 (03:56→11:15)
[2023-08-29] MEDS: SODIUM CHLORIDE 3% INHALATION 15 ML NEB 3 ML IH ×3 (03:57→11:15)
[2023-08-29] MEDS: BACLOFEN 10 MG TABLET 20 MG PO (05:17)
[2023-08-29] MEDS: PIPERACILLIN SODIUM/TAZOBACTAM 3.375 GM in 0.9 % SODIUM CHLORIDE 50 ML IV (05:17)
[2023-08-29] MEDS: PREGABALIN 100 MG CAPSULE 200 MG PO (05:17)
[2023-08-29] MEDS: BUSPIRONE HCL 15 MG TABLET PO (05:18)
[2023-08-29] MEDS: OXYCODONE HCL 5 MG TABLET 10 MG PO ×2 (05:19→11:15)
[2023-08-29 05:37] LABS: Basophils Percent Auto 0.1 % (0.2-2.0); Hematocrit 35.9 % (42.0-54.0); Hemoglobin 11.8 g/dL (14.0-18.0); Immature Granulocytes Pct Auto 1.2 % (0.0-0.5); Lymphocytes Absolute Auto 0.6 10^3/uL (1.2-3.8); Lymphocytes Percent Auto 7.6 % (20.5-60.0); Mean Corpuscular HGB Conc 32.9 g/dL (29.9-35.2); Mean Corpuscular Hemoglobin 30.4 pg (25.9-34.0); Mean Corpuscular Volume 92.5 fL (80.0-94.0); Mean Platelet Volume 9.8 fL (9.5-13.5); Monocytes Absolute Auto 0.3 10^3/uL (0.3-0.8); Monocytes Percent Auto 3.1 % (1.7-12.0); Neutrophils Absolute Auto 7.1 10^3/uL (1.4-6.5); Platelet Count 435 10^3/uL (150-450); Red Blood Count 3.88 10^6/uL (4.70-6.10); Red Cell Distribution Width 13.4 % (11.0-15.0); White Blood Count 8.1 10^3/uL (4.0-11.0)
[2023-08-29 06:11] LABS: Alanine Aminotransferase 18 U/L (16-63); Albumin Globulin Ratio 0.7; Albumin Level 2.3 g/dL (3.4-5.0); Alkaline Phosphatase 65 U/L (46-116); Anion Gap 12.2; Aspartate Amino Transferase 10 U/L (15-37); BUN Creatinine Ratio 18.4; Bilirubin Total 0.2 mg/dL (0.2-1.0); Calcium 8.4 mg/dL (8.5-10.1); Carbon Dioxide 25.7 mmol/L (21.0-32.0); Chloride 99 mmol/L (98-107); Estimated GFR (African America >60 (>=60); Estimated GFR (Non-African Ame >60 (>=60); Globulin 3.2 g/dL; Glucose 130 mg/dL (74-106); Potassium 3.9 mmol/L (3.5-5.1); Sodium 133 mmol/L (136-145); Total Protein 5.5 g/dL (6.4-8.2)
[2023-08-29] MEDS: CLONAZEPAM 0.5 MG TABLET 1 MG PO (08:25)
[2023-08-29] MEDS: METOPROLOL TARTRATE 50 MG TABLET 75 MG PO (08:25)
[2023-08-29] MEDS: OXcarbazepine 150 MG TABLET 300 MG PO (08:25)
[2023-08-29] MEDS: LOSARTAN POTASSIUM 50 MG TABLET 100 MG PO (08:25)
[2023-08-29] MEDS: DULOXETINE HCL 60 MG CAPSULE.DR 120 MG PO (08:25)
[2023-08-29] MEDS: LEVOFLOXACIN IN DEXTROSE 5 % 750 MG/150 ML IV.SOLN 100 MG IV (08:55)
--- NOTE | 2023-08-29 11:21 | PM.DS1 ---
DS: Providers Provider Date of admission: 08/26/23 09:20 Primary care physician: RANDALL GHOTRA Consults: 08/26/23 10:00 Consult to Pulmonology Routine Consulting Provider: Kris Rousseau Reason for consultation: copd DS: Diagnosis Discharge Diagnosis (1) Community acquired pneumonia: Qualifiers: Lung location: lower lobe of lung (2) Severe sepsis: (3) Acute hypoxic respiratory failure: (4) Acute infective exacerbation of chronic obstructive airway disease: (5) Hypertension: (6) Multiple sclerosis: DS: Summary Hospital Course Hospital Course: Reason for admission: See ER note and H&P for details. 53 y/o male with a history of COPD and MS presents to ER with increased SOB for several days. Frequent cough and sputum. Increased chest tightness and fatigue. To ER and 77% on room air. WBC 21 and chest x-ray with pneumonia. CTA showed pneumonia but no PE and admitted. Hospital course: Started zosyn and levaquin for pneumonia. Started solu-medrol and duoneb for COPD. SpO2 normal with supplement oxygen. Resumed home medication. Slowly improved in hospital. Less SOB and mild cough. Afebrile. Attempted to wean off of oxygen but had continued hypoxia and SOB. Symptoms improved. Performed walk test and qualified for home oxygen. Arranged for home O2 with portability. Discharged home in stable condition. Will take augmentin and levaquin for pneumonia. Take prednisone tapered over 12 days. Resume home medication as directed. Follow up with PCP in 1-2 weeks. Time Spent with Patient Time attestation: Total time spent providing and/or coordinating discharge services: Exam Constitutional Vital Signs, click to edit/add: Last Vital Signs Temp 97.7 F 08/29/23 04:52 Pulse 66 08/29/23 10:00 Resp 18 08/29/23 04:52 BP 128/88 08/29/23 08:25 Pulse Ox 90 L 08/29/23 07:03 O2 Del Method Nasal Cannula 08/29/23 07:03 O2 Flow Rate 3 08/29/23 07:03 Documenting provider has reviewed patient's vital signs: yes Common normals: no apparent distress, oriented x3 and alert HENMT Common normals: normocephalic Eye Common normals: PERRL and EOMs intact bilaterally Respiratory Common normals: normal respiratory effort and clear to auscultation bilaterally Cardio Common normals: regular rate, regular rhythm, no gallops, no murmurs and no rub GI Common normals: Normal to inspection, nondistended, normoactive bowel sounds present and non-tender Extremity Common normals: no pedal edema DS: Data Data Completed and Pending Labs on day of discharge: Labs from last 24 hours 08/29/23 04:25 WBC 8.1 RBC 3.88 L Hgb 11.8 L Hct 35.9 L MCV 92.5 MCH 30.4 MCHC 32.9 RDW 13.4 Plt Count 435 MPV 9.8 Neut % (Auto) 88.0 H Lymph % (Auto) 7.6 L Newton % (Auto) 3.1 Eos % (Auto) 0.0 L Baso % (Auto) 0.1 L Neut # (Auto) 7.1 H Lymph # (Auto) 0.6 L Newton # (Auto) 0.3 Eos # (Auto) 0.0 Baso # (Auto) 0.0 Abs Immat Gran (auto) 0.10 H Imm/Tot Granulo (auto) 1.2 H Sodium 133 L Potassium 3.9 Chloride 99 Carbon Dioxide 25.7 Anion Gap 12.2 BUN 14.0 Creatinine 0.76 Est GFR ( Amer) >60 Est GFR (Non-Af Amer) >60 BUN/Creatinine Ratio 18.4 Glucose 130 H Calcium 8.4 L Total Bilirubin 0.2 AST 10 L ALT 18 Alkaline Phosphatase 65 Total Protein 5.5 L Albumin 2.3 L Globulin 3.2 Albumin/Globulin Ratio 0.7 Preliminary micro results at discharge 08/26/23 16:24 Sputum Culture - Preliminary Sputum - Expectorated Sputum 08/26/23 06:15 - Preliminary Blood NO GROWTH AT 36-48 HOURS. FINAL TO FOLLOW. 08/26/23 06:07 Blood Culture Result 1 - Preliminary Blood NO GROWTH AT 36-48 HOURS. FINAL TO FOLLOW. Discharge Plan Discharge Disposition: Home, Self-Care Discharge Medications: New prednisone 10 mg tablets,dose pack 10 mg PO DAILY Qty: 39 0RF Rx Instructions: 6 PO daily x 3 days, then 4 PO daily x 3 days, then 2 PO daily x 3 days, then 1 PO daily x 3 days levofloxacin 750 mg tablet 750 mg PO DAILY 7 Days Qty: 7 0RF amoxicillin-pot clavulanate 875-125 mg tablet 1 tab PO Q12H 14 Days Qty: 28 0RF Continued hydralazine 10 mg tablet 10 mg PO Q8H primidone 50 mg tablet 100 mg PO BEDTIME albuterol sulfate 2.5 mg /3 mL (0.083 %) solution for nebulization 2.5 mg inhalation Q6H PRN (Reason: shortness of breath or wheezing) clonazepam 1 mg tablet 1 mg PO Q12H oxcarbazepine 300 mg tablet 300 mg PO BID metoprolol tartrate 50 mg tablet 75 mg PO Q12H losartan 100 mg tablet 100 mg PO DAILY buspirone 15 mg tablet 15 mg PO TID duloxetine 60 mg capsule,delayed release(DR/EC) 120 mg PO DAILY pregabalin 200 mg capsule 200 mg PO Q8H budesonide-formoterol [Symbicort] 160-4.5 mcg/actuation HFA aerosol inhaler 2 puff INHALATION Q12H oxycodone 10 mg tablet 10 mg PO Q6H PRN (Reason: pain) baclofen 20 mg tablet 20 mg PO Q8H pantoprazole 40 mg tablet,delayed release (DR/EC) 40 mg PO BID quetiapine 50 mg tablet 50 mg PO .QHS Rx Instructions: MAY REPEAT IN 4 HOURS IF STILL AWAKE sennosides [senna] 8.6 mg tablet 17.2 mg PO BID PRN (Reason: constipation) Activity: resume usual activities as tolerated Diet: advance to your usual diet Forms: Portal Instructions Follow Up Appointments: Please call Dr. Ghotra at [phone] on Thursday to schedule a hospital follow up appt. for 5-7 days following discharge.
== END 2023-08-29 12:55 | disposition home or self-care (01) | DRG 871 ==
LOC: ER 07:04 → ICU 09:26 → MS 08-27 15:39
PROVIDERS: Emergency Medicine; Family Medicine; Admitting Provider Family Medicine; Emergency Provider Emergency Medicine; PCP Family Medicine; Visit Provider Family Medicine
DX: A41.9 Sepsis, unspecified organism (principal); J18.9 Pneumonia, unspecified organism; J96.01 Acute respiratory failure with hypoxia; J44.0 Chronic obstructive pulmonary disease with (acute) lower respiratory infection; J44.1 Chronic obstructive pulmonary disease with (acute) exacerbation; E87.1 Hypo-osmolality and hyponatremia; R65.20 Severe sepsis without septic shock; G35 Multiple sclerosis; I10 Essential (primary) hypertension; D50.9 Iron deficiency anemia, unspecified; F41.9 Anxiety disorder, unspecified; F32.A Depression, unspecified; F17.210 Nicotine dependence, cigarettes, uncomplicated; Z79.899 Other long term (current) drug therapy; Z20.822 Contact with and (suspected) exposure to COVID-19; Z99.81 Dependence on supplemental oxygen
CPT/HCPCS: 0202U; 36415; 36600; 71045; 71275; 80053; 81001; 82805; 83605; 83735; 83880; 84145; 84484; 85025; 85378; 87040; 87070; 87106; 87205; 93005; 94640; 94667; 94668; 94761; 96366; 96367; 96368; 96375; 96376; 99285; 99406; J2543; J2930; Q9967

== ENCOUNTER 2023-09-18 10:18 | Outpatient (OUT) | payer MEDICARE, MEDICAID, SELFPAY ==
--- OUTSIDE RECORDS SUMMARY | 2023-09-18 10:22 | XMS_ITS | CCD ---
Author Name Unknown Address [address] [facility] [address] [place] [address] Organization [facility] Care Team Providers Care Cycle Director Name Role Phone Tunde Das Admitting Unavailable Tunde Das Attending Unavailable Bubba Ghotra Primary Care Unavailable BUBBA GHOTRA Primary Care Physician [phone] Heri MURRELL Referring Unavailable Heri MURRELL Admitting Unavailable Heri MURRELL Attending Unavailable Heri MURRELL Attending Unavailable LAMAR TURNER Attending Unavailable Heri MURRELL Attending Unavailable RIC ., ESA Attending Unavailable RIC ., ESA Admitting Unavailable HEMEJUDITH ., DR PEREIRA Primary Care Unavailable MARKER ., DR LIN Consulting Unavailable RIC ., ESA Consulting Unavailable LAKSHMIPATHY ., CARITO Consulting Maureen vailable HEMEYER ., DR PEREIRA [...] Attending Unavailayo DUFFY, DR KELSEA Hamilton Admitting Unavailayo HERBERT ., GILSON MCGRAW Consulting Unavailayo e RIC ., ESA Attending Unavailable RIC ., ESA Admitting Unavailable RIC ., ESA Consulting Unavailable HEMEJUDITH ., DR PEREIRA Primary Care Unavailable KAIA SHEIKH Consulting Unavailable MISC, DR MASON Admitting Unavailable REQUEST, DR THOMASON LISTED Primary Care UnavailABIMAEL Willis Consulting Unavailable DONALD, DR MASON Attending Unavailable JULIO ., DR VILLAGOMEZ Attending Unavailable JULIO ., DR VILLAGOMEZ Admitting Unavailable WEST, DR CRUZITO Schuster Consulting Unavailable HEMEYER ., DR PEREIRA Primary Care Unavailable HAY ., DR VILLAGOMEZ Consulting Unavailable YUE, LAMAR Attending Unavailable YUE, LAMAR Admitting Unavailable YUE, LAMAR Consulting Unavailable HEMEYER ., DR PEREIRA Primary Care Unavailable BINH, JERI Attending Unavailable BINH, JERI Admitting Unavailable BINH, JERI Consulting Unavailable HEMEYER ., DR PEREIRA Primary Care Unavailable LAKSHMIPATHY ., NARENDANSONATH Attending Maureen vailable LAKSHMIPATHY ., NARENDRANATH Admitting Maureen vailable LAKSHMIPATHY ., NARENDLUNA Consulting Maureen vailable HEMEYER ., DR PEREIRA [...] ., DR LISA Schwartz Admitting Unavailable GARRETT .JULIA Consulting Unavailable HEMEYER ., DR PEREIRA Primary Care Unavailable LAKSHMIPATHY ., CARITO Attending Maureen vailable LAKSHMIPATHY ., NARENDRANATH Admitting Maureen vailable LAKSHMIPATHY ., ALEAHENDLUNA Consulting Maureen vailable HEMEYER ., DR PEREIRA Primary Care Unavailable BINH, JERI Attending Unavailable BINH, JERI Admitting Unavailable HEMEYER ., DR PEREIRA Primary Care Unavailable BENEDICT, DR PORRAS Consulting Unavailable BENEDICT, DR PORRAS Attending Unavailable BENEDICT, DR PORRAS Admitting Unavailable ZIEBER, DR VERN Ortiz Consulting Unavailable LOWE, ANJALI Consulting Unavailable BENEDICT, DR PORRAS Attending Unavailable BENEDICT, DR PORRAS Admitting Unavailable HEMEYER ., DR PEREIRA Primary Care Unavailable MISC, DR MASON Admitting Unavailable REQUEST, NONE LISTED Primary Care Unavaila ble MISC, DR MASON Attending Unavailable BINH, JERI Consulting Unavailable ROMERO ., LISA S Attending Unavailable JULIA MORRIS Consulting Unavailable HEATHER .DR LISA Admitting Unavailable BRANDIN ., DR PEREIRA Primary Care Unavailable Mahnaz Roth Unavailable MATY MEDEIROS Attending Unavailable BUBBA GHOTRA Attending Unavailable BUBBA GHOTRA Attending Unavailable Allergies Allergy Classification Reported Allergen(s) Allergy Type Date of Onset Reaction(s) Facility (13 sources) PARoxetine; Translations: [paroxetine] Drug Allergy Mild (qualifier value) [facility] (2 sources) PARoxetine Drug Allergy 3 [facility] (12 sources) venlafaxine Drug Allergy 3 Unknown [facility] Medications Current Medications Medication Drug Class(es) Dates Sig (Normalized) Sig (Original) [id number] actuat albuterol 0.09 mg/actuat metered dose [...] procedure., # 14 tab(s), Refills(s) 0, Pharmacy: [facility]/pharmacy #[id number], 178, , 10/14/21 12:57:00 EDT, Height/Length Dosing, 65.8, kg, [...] procedure, # 1 tab(s), Refills(s) 0, Pharmacy: [facility]/pharmacy #[id number], 178, , 10/14/21 12:57:00 EDT, Height/Length Dosing, 65.8, kg, [...] 08/06/21 Status: Ordered take 1 capsule by [facility] every twenty-four hours DULoxetine HCl 60 MG [...] 12/05/21 Status: Ordered take 1 tablet by [facility] every twelve hours Metoprolol Tartrate 50 MG [...] Status: Ordered take 1 capsule by mo [facility] once daily at bedtime Pregabalin 200 MG 1 capsule 1 to 3 hours before bedtime Orally Once a day Active primidone 50 mg oral tablet (12 sources) Anti-epileptic Agent Start: 08-06-2021 primidone 50 mg Tab 25 mg = 0.5 tab(s), Oral, Once a day (at bedtime), # 15 tab(s), Refills(s) 0 Start Date: 08/06/21 Status: Ordered take 1 tablet by rachel every twenty-four hours Primidone 50 MG 1 tablet Orally Once a day Active Promethazine (10 sources) Phenothiazine Promethazine HCl PRN Active QUEtiapine 25 mg oral tablet (12 sources) Atypical Antipsychotic Start: 08-06-19 take 2 tablets by mouth three times daily SEROquel 25 mg Tab 50 mg = 2 tab(s), Oral, TID, Refills(s) 0 Start Date: 08/06/21 Status: Ordered take 1 tablet by rachel every twenty-four hours SEROquel 50 MG 1 tablet at bedtime Orally Once a day Active sennosides, fci 8.6 mg oral tablet (9 sources) Start: [...] 3 Episodic Other aftercare (1 source) Other detention (current) drug therapy; Translations: [OTH MULTI DISCIPLINED 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 Cortez Younger CBC AUTO DIFFon 11-13-2022 BASO # 0.1 103/ul Normal 0.0-0.1 [facility] Comment on above: Performed By: #### C BC #### [facility] [address] [place], [place] [address] Dr. Cortez Younger Basophils/100 WBC (Bld) 1.3 % Normal 0.2-2.0 [facility] Comment on above: Performed By: #### C BC #### [facility] [address] [place] [id number] Cortez Younger EO # 0.1 103/ul Normal 0.0-0.7 [facility] Comment on above: Performed By: #### C BC #### [facility] [address] [place] [address] [address] Cortez Younger Eosinophils/100 WBC (Bld) 0.9 % Normal 0.9-7.0 [facility] Comment on above: Performed By: #### C BC #### [facility] [address] [place] [address] [address] Cortez Younger Erythrocyte distribution width (RBC) [Ratio] 12.5 % Normal 11.0-15.0 [facility] Comment on above: Performed By: #### C BC #### [facility] [address] [place] [address] Dr. Cortez Younger Hematocrit (Bld) [Volume fraction] 42.3 % Normal 42.0-54.0 [facility] Comment on above: Performed By: #### C BC #### [facility] [address] [place] [address] Dr. Cortez Younger Hemoglobin (Bld) [Mass/Vol] 15.1 g/dL Normal 14.0-18.0 [facility] Comment on above: Performed By: #### C BC #### [facility] [address] [place] [address] Dr. Cortez Younger IG # 0.04 10e3/ul Critically high 0.00-0.03 [facility] Comment on above: Performed By: #### C BC #### [facility] [address] [place] [address] Dr. Cortez Younger IG % 0.6 % Critically high 0.0-0.5 [facility] Comment on above: Performed By: #### C BC #### [facility] [address] [place] [address] Dr. Cortez Younger LYMPH # 1.4 103/ul Normal 1.2-3.8 [facility] Comment on above: Performed By: #### C BC #### [facility] [address] [place] [address] Dr. Cortez Younger Lymphocytes/100 WBC (Bld) 20.7 % Normal 20.5-60.0 [facility] Comment on above: Performed By: #### C BC #### [facility] [address] [place] [address] Dr. Cortez Younger MANUAL DIFF REQ NO Normal [facility] Comment on above: Performed By: #### C BC #### [facility] [address] [place] [address] Dr. Cortez Younger MCH (RBC) [Entitic mass] 31.6 pg Normal 25.9-34.0 [facility] Comment on above: Performed By: #### C BC #### [facility] [address] [place] [address] Dr. Cortez Younger MCHC (RBC) [Mass/Vol] 35.7 g/dL Critically high 29.9-35.2 [facility] Comment on above: Performed By: #### C BC #### [facility] [address] [place] [address] Dr. Cortez Younger MCV (RBC) [Entitic vol] 88.5 fL Normal 80.0-94.0 [facility] Comment on above: Performed By: #### C BC #### [facility] [address] [place] [address] Dr. Cortez Younger MONO # 0.5 103/ul Normal 0.3-0.8 [facility] Comment on above: Performed By: #### C BC #### [facility] [address] [place] [address] Dr. Cortez Younger Monocytes/100 WBC (Bld) 7.7 % Normal 1.7-12.0 [facility] Comment on above: Performed By: #### C BC #### [facility] [address] [place] [address] Dr. Cortez Younger NEUT # 4.8 103/ul Normal 1.4-6.5 [facility] Comment on above: Performed By: #### C BC #### [facility] [address] [place] [address] Dr. Cortez Younger Neutrophils/100 WBC (Bld) 68.8 % Normal 43.0-75.0 [facility] Comment on above: Performed By: #### C BC #### [facility] [address] [place] [address] Dr. Cortez Younger Platelet mean volume (Bld) [Entitic vol] 9.0 fL Critically low 9.5-13.5 [facility] Comment on above: Performed By: #### C BC #### [facility] [address] [place] [address] [address] Cortez Younger PLT 384 103/ul Normal 150-450 [facility] Comment on above: Performed By: #### C BC #### [facility] [address] [place] [address] [address] Cortez Younger RBC 4.78 106/ul Normal 4.70-6.10 [facility] Comment on above: Performed By: #### C BC #### [facility] [address] [place] [address] [address] Cortez Younger WBC 7.0 103/ul Normal 4.0-11.0 [facility] Comment on above: Performed By: #### C BC #### [facility] [address] [place] [address] [address] Cortez Younger ER URINE PROFILEon 3 Bilirubin Ql (U) Negative Normal NEGATIVE [facility] Comment on above: Performed By: #### E RUR ####[facility] [address] [place], [place] [address]DrFish Younger Clarity (U) CLEAR Normal CLEAR [facility] Comment on above: Performed By: #### E RUR ####[facility] [address] [place] [address]DrFish Younger Color (U) LT. YELLOW Normal YELLOW [facility] Comment on above: Performed By: #### E RUR ####[facility] [address] [place] [address]DrFish Younger ERUAHD A micrscopic examina tion will be performed if indicated. Normal [facility] Comment on above: Performed By: #### E RUR ####[facility] [address] [place] [address]Dr. Cortez Younger Glucose Ql (U) Negative Normal NEGATIVE [facility] Comment on above: Performed By: #### E RUR ####[facility] [address] [place] [address]Dr. Cortez Younger Hemoglobin Ql (U) Negative Normal NEGATIVE [facility] Comment on above: Performed By: #### E RUR ####[facility] [address] [place], [place] [address]Dr. Cortez Younger Ketones Ql (U) Negative Normal NEGATIVE [facility] Comment on above: Performed By: #### E RUR ####[facility] [address] [place], [place] [address]Dr. Cortez Aren LEUKOCYTES Negative Normal NEGATIVE [facility] Comment on above: Performed By: #### E RUR ####[facility] [address] [place], [place] [address]Dr. Cortez Younger Nitrite Ql (U) Negative Normal NEGATIVE [facility] Comment on above: Performed By: #### E RUR ####[facility] [address] [place], [place] [address]Dr. Eleanorvalerie Aren pH (U) 7.5 [pH] Normal 5-9 [facility] Comment on above: Performed By: #### E RUR ####[facility] [address] [place], [place] [address]Dr. Cortez Aren SPEC GRAVITY <=1.005 Abnormal 1.005-<=1.025 [facility] Comment on above: Performed By: #### E RUR ####[facility] [address] [place], [place] [address]Dr. Eleanorvalerie Aren UA PROTEIN Negative Normal NEGATIVE/ TRACE [facility] Comment on above: Performed By: #### E RUR ####[facility] [address] [place], [place] [address]Dr. Cortez Younger UR MICRO IND NOT INDICATED Normal [facility] Comment on above: Performed By: #### E RUR ####[facility] [address] [place], [place] [address]Dr. Cortez Younger Urobilinogen Qn (U) 0.2 {Fidelia'U}/dL Normal 0.2 - 1. 0 [facility] Comment on above: Performed By: #### E RUR ####[facility] [address] [place] [address]Dr. Cortez Younger LIPASEon 11-13-2022 Lipase [Catalytic activity/Vol] 111.0 U/L Normal 73.0-393.0 [facility] Comment on above: Performed By: #### A MY, CMP, LIPA ####[facility] [address] [place] [address]Dr. Cortez Younger PROF 14(COMP METB)on 023 Albumin [Mass/Vol] 3.9 g/dL Normal 3.4-5.0 [facility] Comment on above: Performed By: #### A MY, CMP, LIPA ####[facility] [address] [place] [address]Dr. Cortez Younger Albumin/Globulin [Mass ratio] 1.4 {ratio} Normal [facility] Comment on above: Performed By: #### A MY, CMP, LIPA ####[facility] [address] [place] [address]Dr. Cortez Younger ALP [Catalytic activity/Vol] 70 U/L Normal 46-116 [facility] Comment on above: Performed By: #### A MY, CMP, LIPA ####[facility] [address] [place] [address]Dr. Cortez Younger ALT [Catalytic activity/Vol] 24 U/L Normal 16-63 [facility] Comment on above: Performed By: #### A MY, CMP, LIPA ####[facility] [address] [place] [address]Dr. Cortez Younger Anion gap [Moles/Vol] 9.8 mmol/L Normal [facility] Comment on above: Performed By: #### A MY, CMP, LIPA ####[facility] [address] [place] [address]Dr. Cortez Younger AST [Catalytic activity/Vol] 12 U/L Critically low 15-37 [facility] Comment on above: Performed By: #### A MY, CMP, LIPA ####[facility] [address] [place] [id number]. Cortez Younger Bilirubin [Mass/Vol] 0.3 mg/dL Normal 0.2-1.0 [facility] Comment on above: Performed By: #### A MY, CMP, LIPA ####[facility] [address] [place] [address]Dr. Cortez Younger Calcium [Mass/Vol] 9.2 mg/dL Normal 8.5-10.1 [facility] Comment on above: Performed By: #### A MY, CMP, LIPA ####[facility] [address] [place] [address]Dr. Cortez Younger Chloride [Moles/Vol] 98 mmol/L Normal 98-107 [facility] Comment on above: Performed By: #### A MY, CMP, LIPA ####[facility] [address] [place], [place] [address]Dr. Cortez Younger CO2 [Moles/Vol] 28.7 mmol/L Normal 21.0-32.0 [facility] Comment on above: Performed By: #### A MY, CMP, LIPA ####[facility] [address] [place] [address]Dr. Cortez Younger Creatinine [Mass/Vol] 0.88 mg/dL Normal 0.70-1.30 [facility] Comment on above: Performed By: #### A MY, CMP, LIPA ####[facility] [address] [place] [address]Dr. Cortez Younger EGFR-AF GIBRALTARIAN >60 Normal >=60 [facility] Comment on above: Performed By: #### A MY, CMP, LIPA ####[facility] [address] [place] [address]Dr. Cortez Younger EGFR-NON AF GIBRALTARIAN >60 Normal >=60 [facility] Comment on above: Performed By: #### A MY, CMP, LIPA ####[facility] [address] [place] [address]Dr. Cortez Younger Globulin (S) [Mass/Vol] 2.7 g/dL Normal [facility] Comment on above: Performed By: #### A MY, CMP, LIPA ####[facility] [address] [place] [address]Dr. Cortez Younger Glucose [Mass/Vol] 105 mg/dL Normal 74-106 [facility] Comment on above: Performed By: #### A MY, CMP, LIPA ####[facility] [address] [place] [address]Dr. Cortez Younger Potassium [Moles/Vol] 3.5 mmol/L Normal 3.5-5.1 [facility] Comment on above: Performed By: #### A MY, CMP, LIPA ####[facility] [address] [place], [place] [address]Dr. Cortez Younger Protein [Mass/Vol] 6.6 g/dL Normal 6.4-8.2 [facility] Comment on above: Performed By: #### A MY, CMP, LIPA ####[facility] [address] [place] [address]Dr. Cortez Younger Sodium [Moles/Vol] 133 mmol/L Critically low 136-145 Th [facility] Comment on above: Performed By: #### A MY, CMP, LIPA ####[facility] [address] [place] [address]Dr. Cortez Younger Urea nitrogen [Mass/Vol] 4.0 mg/dL Critically low 7.0-18.0 [facility] Comment on above: Performed By: #### A MY, CMP, LIPA ####[facility] [address] [place], [place] [address]Dr. Cortez Younger Urea nitrogen/Creatinine [Mass ratio] 4.5 mg/mg Normal [facility] Comment on above: Performed By: #### A MY, CMP, LIPA ####[facility] [address] [place], [place] [address]Dr. Cortez Younger XR ABD FLAT UP_PA Farideh [...] by: CRUZITO CRENSHAW Date: 2022-11-13 13:22 Normal [facility] FREE T4on 10-31-2022 Free T4 [Mass/Vol] 1.03 ng/dL Normal 0.76-1.46 [facility] Comment on above: Performed By: #### E RUR #### [facility] [address] [place] [address] Dr. Cortez Younger LIPID PROFILEon 10-31-2022 CHOL-HDL RATIO NORM SEE BELOW Normal [facility] [place] Comment on above: Result Comment: 3.3 - 4.4 LOW RISK 4.4 - 7.1 AVERAGE RISK 7.1 - 11.0 MODERATE RISK >11.0 HIGH RISK Performed By: #### E RUR #### [facility] [address] [place] [address] Dr. Cortez Younger Cholesterol [Mass/Vol] 165 mg/dL Normal <=200 [facility] Comment on above: Performed By: #### E RUR #### [facility] [address] [place] [address] Dr. Cortez Younger Cholesterol in HDL [Mass/Vol] 59 mg/dL Normal 40-60 [facility] Comment on above: Performed By: #### E RUR #### [facility] [address] [place] [address] [address] Cortez Younger Cholesterol in LDL [Mass/Vol] 83.8 mg/dL Normal [facility] Comment on above: Performed By: #### E RUR #### [facility] [address] [place] [address] [address] Cortez Younger Cholesterol.total/C holesterol in HDL [Mass ratio] 2.8 {ratio} Normal [facility] Comment on above: Performed By: #### E RUR #### [facility] [address] [place] [address] [address] Cortez Younger HDL NORMAL > or = 60 mg/dl - LO W CARDIOVASCULAR RISK <40 mg/dl - HIGH CARDIOVASCULAR RISK Normal [facility] Comment on above: Performed By: #### E RUR #### [facility] [address] [place] [address] [address] Cortez Younger LDL CALC NORMAL SEE BELOW Normal [facility] Comment on above: Result Comment: <100 mg/dl OPTIMAL 100 - 129 mg/dl NEAR OR ABOVE OPTIMAL 130 - 159 mg/dl BORDERLINE HIGH 160 - 189 mg/dl HIGH >190 mg/dl VERY HIGH Performed By: #### E RUR #### [facility] [address] [place] [address] [address] Cortez Younger Triglyceride [Mass/Vol] 111 mg/dL Normal <=150 [facility] Comment on above: Performed By: #### E RUR #### [facility] [address] [place] [address] [address] Cortez Younger VLDL CALC 22.2 mg/dL Normal [facility] Comment on above: Performed By: #### E RUR #### [facility] [address] [place] [address] Dr. Cortez Younger MRI BRAIN WO W CONon 10-31- 023 MRI BRAIN WO W CON EXAMINATION: [...] VERN LU Date: 2022-10-31 13:12 Normal [facility] PROF 14(COMP METB)on 023 Albumin [Mass/Vol] 4.0 g/dL Normal 3.4-5.0 [facility] Comment on above: Performed By: #### C MP ####[facility] [address] [place] [address]Dr. Cortez Younger Albumin/Globulin [Mass ratio] 1.3 {ratio} Normal [facility] Comment on above: Performed By: #### C MP ####[facility] [address] [place] [address]Dr. Cortez Younger ALP [Catalytic activity/Vol] 66 U/L Normal 46-116 [facility] Comment on above: Performed By: #### C MP ####[facility] [address] [place] [address]Dr. Cortez Younger ALT [Catalytic activity/Vol] 21 U/L Normal 16-63 [facility] Comment on above: Performed By: #### C MP ####[facility] [address] [place] [address]Dr. Cortez Younger Anion gap [Moles/Vol] 9.4 mmol/L Normal [facility] Comment on above: Performed By: #### C MP ####[facility] [address] [place] [address]Dr. Cortez Younger AST [Catalytic activity/Vol] 10 U/L Critically low 15-37 [facility] Comment on above: Performed By: #### C MP ####[facility] [address] [place] [address]Dr. Cortez Younger Bilirubin [Mass/Vol] 0.4 mg/dL Normal 0.2-1.0 [facility] Comment on above: Performed By: #### C MP ####[facility] [address] [place] [id number]. Cortez Younger Calcium [Mass/Vol] 9.1 mg/dL Normal 8.5-10.1 [facility] Comment on above: Performed By: #### C MP ####[facility] [address] [place] [address]Dr. Cortez Younger Chloride [Moles/Vol] 98 mmol/L Normal 98-107 [facility] Comment on above: Performed By: #### C MP ####[facility] [address] [place] [address]Dr. Cortez Younger CO2 [Moles/Vol] 29.8 mmol/L Normal 21.0-32.0 [facility] Comment on above: Performed By: #### C MP ####[facility] [address] [place], [place] [address]Dr. Eleanorvalerie Younger Creatinine [Mass/Vol] 0.89 mg/dL Normal 0.70-1.30 [facility] Comment on above: Performed By: #### C MP ####[facility] [address] [place] [address]Dr. Cortez Aren EGFR-AF GIBRALTARIAN >60 Normal >=60 [facility] Comment on above: Performed By: #### C MP ####[facility] [address] [place], [place] [address]Dr. Cortez Aren EGFR-NON AF GIBRALTARIAN >60 Normal >=60 [facility] Comment on above: Performed By: #### C MP ####[facility] [address] [place] [address]Dr. Eleanorvalerie Younger Globulin (S) [Mass/Vol] 3.1 g/dL Normal [facility] Comment on above: Performed By: #### C MP ####[facility] [address] [place], [place] [address]Dr. Eleanorvalerie Aren Glucose [Mass/Vol] 109 mg/dL Critically high 74-106 T [facility] Comment on above: Performed By: #### C MP ####[facility] [address] [place], [place] [address]Dr. Cortez Younger Potassium [Moles/Vol] 4.2 mmol/L Normal 3.5-5.1 [facility] Comment on above: Performed By: #### C MP ####[facility] [address] [place] [address]Dr. Cortez Younger Protein [Mass/Vol] 7.1 g/dL Normal 6.4-8.2 [facility] Comment on above: Performed By: #### C MP ####[facility] [address] [address]Dr. Cortez Younger Sodium [Moles/Vol] 133 mmol/L Critically low 136-145 Th [facility] Comment on above: Performed By: #### C MP ####[facility] [address]nify[address] [place] [address]DrFish Younger Urea nitrogen [Mass/Vol] 7.0 mg/dL Normal 7.0-18.0 [facility] Comment on above: Performed By: #### C MP ####[facility] [address]rg[address] [place], [place] [address]Dr. Cortez Younger Urea nitrogen/Creatinine [Mass ratio] 7.9 mg/mg Normal [facility] Comment on above: Performed By: #### C MP ####[facility] [address] [place], [place] [address]DrFish Younger TSHon 10-31-2022 TSH 1.574 uIU/mL Normal 0.358-3.740 [facility] Comment on above: Performed By: #### T SH #### [facility] [address] [place] [address] Dr. Cortez Younger COMPLIANCE DRUG SCREENon PDF . Normal [facility] Comment on above: Performed By: #### E RUR #### [facility] [address] [place] [address] Dr. Cortez Younger Summary FINAL Normal [facility] Comment on above: Result Comment: == [...] test is not intended to distinguish between cjtbl-4-yhlklacyhvgrttfuwsiw, the predominant form of THC in most herbal or marijuana-based products, and wiqjk-8-eaekqqqecffzmpauhefn. Norhydrocodone 1620 ng/mg creat Norhydrocodone is an [...] == Performed By: #### E RUR #### [facility] [address] [place] [address] Dr. Cortez Younger HYDROCODONE AND METABOLITE, URINEon 10-24-2022 Hydrocodone 55 ng/mL Normal [facility] Comment on above: Performed By: #### E RUR #### [facility] [address] [place] [address] Dr. Cortez Younger Hydromorphone Negative Normal [facility] Comment on above: Result Comment: This test was developed and its performance characteristics determined by [employer]. It has not been cleared or approved by the Food and Drug Administration. Performed By: #### E RUR #### [facility] [address] [place] [address] Dr. Cortez Younger OSMOLALITYon 10-20-2022 Osmolality QNSREP Normal [facility] Comment on above: Result Comment: Spec imen quantity insufficient for verification by repeat analysis. contacted Lynda at your facility on 10-20-2022 Performed By: #### C BC #### [facility] [address] [place] [address] Dr. Cortez Younger OSMOLALITY URINEon Osmolality, Urine 119 mOsmol/kg Normal [facility] Comment on above: Result Comment: 24 h r : 300 - 900 Random: 50 - 1400 After 12hr fluid restriction: >850 Performed By: #### O SMOU ####[facility] [address] [address]Dr. Cortez Younger CBC AUTO DIFFon 10-16-2022 BASO # 0.0 103/ul Normal 0.0-0.1 [facility] Comment on above: Performed By: #### C BC ####[facility] Niirqobnto[address] [place], [place] [address]Dr. Cortez Younger Basophils/100 WBC (Bld) 0.3 % Normal 0.2-2.0 [facility] Comment on above: Performed By: #### C BC ####[facility] [address]zuqgjaw[address] [place], [place] [address]Dr. Cortez Younger EO # 0.0 103/ul Normal 0.0-0.7 [facility] Comment on above: Performed By: #### C BC ####[facility] Nrnquabpvp[address] [place], [place] [address]Dr. Cortez Younger Eosinophils/100 WBC (Bld) 0.2 % Critically low 0.9-7.0 [facility] Comment on above: Performed By: #### C BC ####[facility] Hgnenmelby[address] [place], [place] [address]Dr. Cortez Younger Erythrocyte distribution width (RBC) [Ratio] 12.1 % Normal 11.0-15.0 [facility] Comment on above: Performed By: #### C BC ####[facility] Bjmtuwpaqa[address] [place], [place] [address]Dr. Cortez Younger Hematocrit (Bld) [Volume fraction] 45.9 % Normal 42.0-54.0 [facility] Comment on above: Performed By: #### C BC ####[facility] Tcorwjswuy[address] [place], [place] [address]Dr. Cortez Younger Hemoglobin (Bld) [Mass/Vol] 16.7 g/dL Normal 14.0-18.0 [facility] Comment on above: Performed By: #### C BC ####[facility] Hxqcauch[address] [place], [place] [address]Dr. Cortez Younger IG # 0.06 10e3/ul Critically high 0.00-0.03 [facility] Comment on above: Performed By: #### C BC ####[facility] [address] [place] [id number] Cortez Aren IG % 0.5 % Normal 0.0-0.5 [facility] Comment on above: Performed By: #### C BC ####[facility] [address] [place] [address]DrFish Cortez Aren LYMPH # 1.5 103/ul Normal 1.2-3.8 [facility] Comment on above: Performed By: #### C BC ####[facility] [address] [place] [address]DrFish Cortez Aren Lymphocytes/100 WBC (Bld) 13.5 % Critically low 20.5-60.0 [facility] Comment on above: Performed By: #### C BC ####[facility] Eyerzhauzm[address] [place], [place] [address]DrFish Cortez Aren MANUAL DIFF REQ NO Normal [facility] Comment on above: Performed By: #### C BC ####[facility] [address] [place] [id number] Cortez Aren MCH (RBC) [Entitic mass] 31.2 pg Normal 25.9-34.0 [facility] Comment on above: Performed By: #### C BC ####[facility] [address] [place] [id number] Cortez Aren MCHC (RBC) [Mass/Vol] 36.4 g/dL Critically high 29.9-35.2 [facility] Comment on above: Performed By: #### C BC ####[facility] [address] [place], [place] [id number] Cortez Aren MCV (RBC) [Entitic vol] 85.6 fL Normal 80.0-94.0 [facility] Comment on above: Performed By: #### C BC ####[facility] [address]jpkl[address] [place], [place] [address]DrFish Eleanorvalerie Younger MONO # 0.6 103/ul Normal 0.3-0.8 [facility] Comment on above: Performed By: #### C BC ####[facility] [address] [place] [address]Dr. Cortez Younger Monocytes/100 WBC (Bld) 5.4 % Normal 1.7-12.0 [facility] Comment on above: Performed By: #### C BC ####[facility] [address] [place] [address]Dr. Cortez Younger NEUT # 8.9 103/ul Critically high 1.4-6.5 [facility] Comment on above: Performed By: #### C BC ####[facility] [address] [place] [address]Dr. Cortez Younger Neutrophils/100 WBC (Bld) 80.1 % Critically high 43.0-75.0 [facility] Comment on above: Performed By: #### C BC ####[facility] [address] [place], [place] [address]Dr. Cortez Younger Platelet mean volume (Bld) [Entitic vol] 9.7 fL Normal 9.5-13.5 [facility] Comment on above: Performed By: #### C BC ####[facility] Z[address]jecews[address] [place], [place] [address]Dr. Cortez Younger PLT 364 103/ul Normal 150-450 [facility] Comment on above: Performed By: #### C BC ####[facility] [address]sc[address] [place], [place] [address]Dr. Cortez Younger RBC 5.36 106/ul Normal 4.70-6.10 [facility] Comment on above: Performed By: #### C BC ####[facility] [address] [place] [id number] Cortez Younger WBC 11.1 103/ul Critically high 4.0-11.0 [facility] Comment on above: Performed By: #### C BC ####[facility] [address] [place] [id number] Cortez Younger Covid-19 PCR (CVDTBH)on SARS-CoV-2 (COVID-19) RNA AXEL+probe Ql (Unsp spec) Not detected Normal NOT DETECTED [facility] Comment on above: Result Comment: When diagnostic [...] for this test is supported by the [employer]st of Health and Human Service's declaration that [...] be used). Performed By: #### C VDTB ####[facility] [address] [place] [address]Dr. Cortez Younger DRUG SCREEN RAPID (URINE)on 10-16-2022 AMP Negative Normal NEGATIVE [facility] Comment on above: Performed By: #### C BC #### [facility] [address] [place] [address] Dr. Cortez Younger BAR Positive Abnormal NEGATIVE [facility] Comment on above: Performed By: #### C BC #### [facility] [address] [address] [address] Cortez Younger BUP Negative Normal NEGATIVE [facility] Comment on above: Performed By: #### C BC #### [facility] [address] [address] [address] Cortez Younger BZO Positive Abnormal NEGATIVE [facility] Comment on above: Performed By: #### C BC #### [facility] [address] [address] [address] Cortez Younger OK Negative Normal NEGATIVE [facility] Comment on above: Performed By: #### C BC #### [facility] [address] [place] [address] Dr. Cortez Younger CUT-OFFS SEE BELOW Normal [facility] Comment on above: Result Comment: AMP (Amphetamine): 500ng/mL, BAR (Barbituates): 200 ng/mL, BZO (Benzodiazepines): 150 ng/mL, BUP (Buprenorphine): 10 ng/mL, OK (Cocaine): 150 ng/mL, mAMP (Methamphetamine): 500 ng/mL, MTD (Methadone): 200 ng/mL, OPI (Opiates): 100 ng/mL, OXY (Oxycodone): 100 ng/mL, PCP (Phencyclidine): 25 ng/mL, PPX (Propoxyphene): 300 ng/mL, THC (Cannabinoids): 50 ng/mL, TCA (Trycyclic Antidepressants): 300 ng/mL Performed By: #### C BC #### [facility] [address] [place] [address] Dr. Cortez Younger DRUG CUT HEADER DRUG CLASS TEST SYST EM CUT-OFF CONCENTRATIONS ARE FOLLOWS: Normal [facility] Comment on above: Performed By: #### C BC #### [facility] [address] [place] [address] Dr. Cortez Younger mAMP Negative Normal NEGATIVE [facility] Comment on above: Performed By: #### C BC #### [facility] [address] [place] [address] Dr. Cortez Younger MTD Negative Normal NEGATIVE [facility] Comment on above: Performed By: #### C BC #### [facility] [address] [place] [address] Dr. Cortez Younger OPI Positive Abnormal NEGATIVE [facility] Comment on above: Performed By: #### C BC #### [facility] [address] [place] [address] Dr. Cortez Younger OXY Negative Normal NEGATIVE [facility] Comment on above: Performed By: #### C BC #### [facility] [address] [place] [address] Dr. Cortez Younger PCP Negative Normal NEGATIVE [facility] Comment on above: Performed By: #### C BC #### [facility] [address] [place] [address] Dr. Cortez Younger PPX Negative Normal NEGATIVE [facility] Comment on above: Performed By: #### C BC #### [facility] [address] [place] [address] Dr. Cortez Younger TCA Negative Normal NEGATIVE [facility] Comment on above: Performed By: #### C BC #### [facility] [address] [place] [address] Dr. Cortez Younger THC Positive Abnormal NEGATIVE [facility] Comment on above: Performed By: #### C BC #### [facility] [address] [place] [address] Dr. Cortez Younger ER URINE PROFILEon 3 Bilirubin Ql (U) Negative Normal NEGATIVE [facility] Comment on above: Performed By: #### C BC #### [facility] [address] [place] [address] Dr. Cortez Younger Clarity (U) CLEAR Normal CLEAR [facility] Comment on above: Performed By: #### C BC #### [facility] [address] [place] [address] Dr. Cortez Younger Color (U) LT. YELLOW Normal YELLOW [facility] Comment on above: Performed By: #### C BC #### [facility] [address] [place] [address] Dr. Cortez Younger ERUYONYD A micrscopic examina tion will be performed if indicated. Normal [facility] Comment on above: Performed By: #### C BC #### [facility] [address] [place] [address] Dr. Cortez Younger Glucose Ql (U) Negative Normal NEGATIVE [facility] Comment on above: Performed By: #### C BC #### [facility] [address] [place] [address] Dr. Cortez Younger Hemoglobin Ql (U) Negative Normal NEGATIVE [facility] Comment on above: Performed By: #### C BC #### [facility] [address] [place] [address] Dr. Cortez Younger Ketones Ql (U) Negative Normal NEGATIVE [facility] Comment on above: Performed By: #### C BC #### [facility] [address] [place] [address] Dr. Cortez Younger LEUKOCYTES Negative Normal NEGATIVE [facility] Comment on above: Performed By: #### C BC #### [facility] [address] [place] [address] Dr. Cortez Younger Nitrite Ql (U) Negative Normal NEGATIVE [facility] Comment on above: Performed By: #### C BC #### [facility] [address] [place] [address] Dr. Cortez Younger pH (U) 7.5 [pH] Normal 5-9 [facility] Comment on above: Performed By: #### C BC #### [facility] [address] [place] [address] Dr. Cortez Younger SPEC GRAVITY <=1.005 Abnormal 1.005-<=1.025 [facility] Comment on above: Performed By: #### C BC #### [facility] [address] [place] [address] Dr. Cortez Younger UA PROTEIN Negative Normal NEGATIVE/ TRACE [facility] Comment on above: Performed By: #### C BC #### [facility] [address] [place] [address] Dr. Cortez Younger UR MICRO IND NOT INDICATED Normal [facility] Comment on above: Performed By: #### C BC #### [facility] [address] [place] [address] Dr. Cortez Younger Urobilinogen Qn (U) 0.2 {Fidelia'U}/dL Normal 0.2 - 1. 0 [facility] Comment on above: Performed By: #### C BC #### [facility] [address] [place] [address] Dr. Cortez Younger NAon 10-16-2022 Sodium [Moles/Vol] 125 mmol/L Critically low 136-145 Th [facility] Comment on above: Performed By: #### E RUR #### [facility] [address] [place] [address] Dr. Cortez Younger POTASSIUM URINEon 10-16-2022 UR POTASSIUM 11.8 mmol/L Normal [facility] Comment on above: Performed By: #### K U ####[facility] [address] [place] [address]Dr. Cortez Younger PROF 14(COMP METB)on 023 Albumin [Mass/Vol] 4.2 g/dL Normal 3.4-5.0 [facility] Comment on above: Performed By: #### E RUR #### [facility] [address] [address] [address] Cortez Younger Albumin/Globulin [Mass ratio] 1.3 {ratio} Normal [facility] Comment on above: Performed By: #### E RUR #### [facility] [address] [place] [address] Dr. Cortez Younger ALP [Catalytic activity/Vol] 75 U/L Normal 46-116 [facility] Comment on above: Performed By: #### E RUR #### [facility] [address] [place] [address] Dr. Cortez Younger ALT [Catalytic activity/Vol] 23 U/L Normal 16-63 [facility] Comment on above: Performed By: #### E RUR #### [facility] [address] [place] [address] Dr. Cortez Younger Anion gap [Moles/Vol] 9.7 mmol/L Normal [facility] Comment on above: Performed By: #### E RUR #### [facility] [address] [address] [address] Cortez Younger AST [Catalytic activity/Vol] 16 U/L Normal 15-37 [facility] Comment on above: Performed By: #### E RUR #### [facility] [address] [place] [address] Dr. Cortez Younger Bilirubin [Mass/Vol] 0.4 mg/dL Normal 0.2-1.0 [facility] Comment on above: Performed By: #### E RUR #### [facility] [address] [place] [address] Dr. Cortez Younger Calcium [Mass/Vol] 9.1 mg/dL Normal 8.5-10.1 [facility] Comment on above: Performed By: #### E RUR #### [facility] [address] [place] [address] Dr. Cortez Younger Chloride [Moles/Vol] 88 mmol/L Critically low 98-107 [facility] Comment on above: Performed By: #### E RUR #### [facility] [address] [place] [address] Dr. Cortez Younger CO2 [Moles/Vol] 26.5 mmol/L Normal 21.0-32.0 [facility] Comment on above: Performed By: #### E RUR #### [facility] [address] [place] [address] Dr. Cortez Younger Creatinine [Mass/Vol] 0.73 mg/dL Normal 0.70-1.30 [facility] Comment on above: Performed By: #### E RUR #### [facility] [address] [place] [address] Dr. Cortez Younger EGFR-AF GIBRALTARIAN >60 Normal >=60 [facility] Comment on above: Performed By: #### E RUR #### [facility] [address] [place] [address] Dr. Cortez Younger EGFR-NON AF GIBRALTARIAN >60 Normal >=60 [facility] Comment on above: Performed By: #### E RUR #### [facility] [address] [place] [address] Dr. Cortez Younger Globulin (S) [Mass/Vol] 3.2 g/dL Normal [facility] Comment on above: Performed By: #### E RUR #### [facility] [address] [place] [address] Dr. Cortez Younger Glucose [Mass/Vol] 109 mg/dL Critically high 74-106 [facility] Comment on above: Performed By: #### E RUR #### [facility] [address] [place] [address] Dr. Cortez Younger Potassium [Moles/Vol] 4.2 mmol/L Normal 3.5-5.1 [facility] Comment on above: Performed By: #### E RUR #### [facility] [address] [address] [address] Cortez Younger Protein [Mass/Vol] 7.4 g/dL Normal 6.4-8.2 [facility] Comment on above: Performed By: #### E RUR #### [facility] [address] [address] [address] Cortez Younger Sodium [Moles/Vol] 120 mmol/L Critically low 136-145 Th [facility] Comment on above: Performed By: #### E RUR #### [facility] [address] [address] [address] Cortez Younger Urea nitrogen [Mass/Vol] 7.0 mg/dL Normal 7.0-18.0 [facility] Comment on above: Performed By: #### E RUR #### [facility] [address] [address] [address] Cortez Younger Urea nitrogen/Creatinine [Mass ratio] 9.6 mg/mg Normal [facility] Comment on above: Performed By: #### E RUR #### [facility] [address] [address] [address] Cortez Younger SODIUM RANDOM URINEon 2022 Sodium (U) [Moles/Vol] 26 mmol/L Critically low 30-90 [facility] Comment on above: Performed By: #### N AU ####[facility] [address] [place] [address]Dr. Cortez Younger ACETONE SERUMon 10-07-2022 ACETONE Negative Normal NEGATIVE [facility] Comment on above: Performed By: #### E RUR #### [facility] [address] [address] [address] Cortez Younger CBC AUTO DIFFon 10-07-2022 BASO # 0.1 103/ul Normal 0.0-0.1 [facility] Comment on above: Performed By: #### C BC ####[facility] [address] [place] [address]Dr. Cortez Younger Basophils/100 WBC (Bld) 0.8 % Normal 0.2-2.0 [facility] Comment on above: Performed By: #### C BC ####[facility] [address] [place], [place] [address]DrFsih Younger EO # 0.0 103/ul Normal 0.0-0.7 [facility] Comment on above: Performed By: #### C BC ####[facility] [address] [place], [place] [address]Dr. Cortez Younger Eosinophils/100 WBC (Bld) 0.2 % Critically low 0.9-7.0 [facility] Comment on above: Performed By: #### C BC ####[facility] [address] [place], [place] [address]DrFish Younger Erythrocyte distribution width (RBC) [Ratio] 12.1 % Normal 11.0-15.0 [facility] Comment on above: Performed By: #### C BC ####[facility] [address] [place], [place] [address]Dr. Cortez Younger Hematocrit (Bld) [Volume fraction] 42.9 % Normal 42.0-54.0 [facility] Comment on above: Performed By: #### C BC ####[facility] [address] [place], [place] [address]DrFish Younger Hemoglobin (Bld) [Mass/Vol] 15.4 g/dL Normal 14.0-18.0 [facility] Comment on above: Performed By: #### C BC ####[facility] [address] [place], [place] [address]DrFish Younger IG # 0.04 10e3/ul Critically high 0.00-0.03 [facility] Comment on above: Performed By: #### C BC ####[facility] [address] [place], [place] [address]DrFish Younger IG % 0.4 % Normal 0.0-0.5 [facility] Comment on above: Performed By: #### C BC ####[facility] [address] [place], [place] [address]DrFish Younger LYMPH # 1.3 103/ul Normal 1.2-3.8 [facility] Comment on above: Performed By: #### C BC ####[facility] [address] [place] [address]Dr. Cortez Younger Lymphocytes/100 WBC (Bld) 13.7 % Critically low 20.5-60.0 [facility] Comment on above: Performed By: #### C BC ####[facility] [address] [place], [place] [address]Dr. Cortez Younger MANUAL DIFF REQ NO Normal [facility] Comment on above: Performed By: #### C BC ####[facility] [address] [place], [place] [address]Dr. Cortez Younger MCH (RBC) [Entitic mass] 31.4 pg Normal 25.9-34.0 [facility] Comment on above: Performed By: #### C BC ####[facility] [address] [place], [place] [address]Dr. Cortez Younger MCHC (RBC) [Mass/Vol] 35.9 g/dL Critically high 29.9-35.2 [facility] Comment on above: Performed By: #### C BC ####[facility] [address] [place], [place] [address]DrFish Younger MCV (RBC) [Entitic vol] 87.4 fL Normal 80.0-94.0 [facility] Comment on above: Performed By: #### C BC ####[facility] [address] [place], [place] [address]Dr. Cortez Younger MONO # 0.4 103/ul Normal 0.3-0.8 [facility] Comment on above: Performed By: #### C BC ####[facility] [address] [place], [place] [address]Dr. Cortez Younger Monocytes/100 WBC (Bld) 3.6 % Normal 1.7-12.0 [facility] Comment on above: Performed By: #### C BC ####[facility] [address] [place], [place] [address]Dr. Cortez Younger NEUT # 7.9 103/ul Critically high 1.4-6.5 [facility] Comment on above: Performed By: #### C BC ####[facility] [address] [place] [id number]. Cortez Younger Neutrophils/100 WBC (Bld) 81.3 % Critically high 43.0-75.0 [facility] Comment on above: Performed By: #### C BC ####[facility] [address] [id number]. Cortez Younger Platelet mean volume (Bld) [Entitic vol] 8.8 fL Critically low 9.5-13.5 [facility] Comment on above: Performed By: #### C BC ####[facility] [address] [address]DrFish Younger PLT 371 103/ul Normal 150-450 [facility] Comment on above: Performed By: #### C BC ####[facility] [address] [id number]. Cortez Younger RBC 4.91 106/ul Normal 4.70-6.10 [facility] Comment on above: Performed By: #### C BC ####[facility] [address] [id number] Younger WBC 9.8 103/ul Normal 4.0-11.0 [facility] Comment on above: Performed By: #### C BC ####[facility] [address] [id number] Younger CRPon 10-07-2022 CRP [Mass/Vol] mg/L Normal <=1.0 [facility] Comment on above: Performed By: #### L IPA, TSH, CRP, CMP ####[facility] [address] [id number] Younger ER URINE PROFILEon 3 Bilirubin Ql (U) Negative Normal NEGATIVE [facility] Comment on above: Performed By: #### E RUR #### [facility] [id number] Cortez Younger Clarity (U) CLEAR Normal CLEAR [facility] Comment on above: Performed By: #### E RUR #### [facility] [address] [place] [address] Dr. Cortez Younger Color (U) LT. YELLOW Normal YELLOW [facility] Comment on above: Performed By: #### E RUR #### [facility] [address] [place] [address] Dr. Cortez Younger ERUAHD A micrscopic examina tion will be performed if indicated. Normal [facility] Comment on above: Performed By: #### E RUR #### [facility] [address] [place] [address] Dr. Cortez Younger Glucose Ql (U) Negative Normal NEGATIVE [facility] Comment on above: Performed By: #### E RUR #### [facility] [address] [place] [address] Dr. Cortez Younger Hemoglobin Ql (U) Negative Normal NEGATIVE [facility] Comment on above: Performed By: #### E RUR #### [facility] [address] [place] [address] Dr. Cortez Younger Ketones Ql (U) Negative Normal NEGATIVE [facility] Comment on above: Performed By: #### E RUR #### [facility] [address] [place] [address] Dr. Cortez Younger LEUKOCYTES Negative Normal NEGATIVE [facility] Comment on above: Performed By: #### E RUR #### [facility] [address] [place] [address] Dr. Cortez Younger Nitrite Ql (U) Negative Normal NEGATIVE [facility] Comment on above: Performed By: #### E RUR #### [facility] [address] [place] [address] Dr. Cortez Younger pH (U) 7.5 [pH] Normal 5-9 [facility] Comment on above: Performed By: #### E RUR #### [facility] [address] [place] [address] Dr. Cortez Younger SPEC GRAVITY <=1.005 Abnormal 1.005-<=1.025 [facility] Comment on above: Performed By: #### E RUR #### [facility] [address] [place] [address] Dr. Cortez Younger UA PROTEIN Negative Normal NEGATIVE/ TRACE [facility] Comment on above: Performed By: #### E RUR #### [facility] [address] [place] [address] Dr. Cortez Younger UR MICRO IND NOT INDICATED Normal [facility] Comment on above: Performed By: #### E RUR #### [facility] [address] [place] [address] Dr. Cortez Younger Urobilinogen Qn (U) 0.2 {Fidelia'U}/dL Normal 0.2 - 1. 0 [facility] Comment on above: Performed By: #### E RUR #### [facility] [address] [place] [address] Dr. Cortez Younger LACTATE/LACTIC ACIDon 2022 Lactate [Moles/Vol] 1.0 mmol/L Normal 0.4-2.0 [facility] [place] Comment on above: Performed By: #### E RUR #### [facility] [address] [place] [address] Dr. Cortez Younger LIPASEon 10-07-2022 Lipase [Catalytic activity/Vol] 84.0 U/L Normal 73.0-393.0 [facility] Comment on above: Performed By: #### L IPA, TSH, CRP, CMP ####[facility] [address] [address]Dr. Cortez Younger PROF 14(COMP METB)on 023 Albumin [Mass/Vol] 3.9 g/dL Normal 3.4-5.0 [facility] Comment on above: Performed By: #### L IPA, TSH, CRP, CMP ####[facility] [address] [address]Dr. Cortez Younger Albumin/Globulin [Mass ratio] 1.7 {ratio} Normal [facility] Comment on above: Performed By: #### L IPA, TSH, CRP, CMP ####[facility] [address] [address]Dr. Cortez Younger ALP [Catalytic activity/Vol] 78 U/L Normal 46-116 [facility] Comment on above: Performed By: #### L IPA, TSH, CRP, CMP ####[facility] [address] [address]Dr. Cortez Younger ALT [Catalytic activity/Vol] 28 U/L Normal 16-63 [facility] Comment on above: Performed By: #### L IPA, TSH, CRP, CMP ####[facility] [address] [address]Dr. Cortez Younger Anion gap [Moles/Vol] 12.1 mmol/L Normal [facility] Comment on above: Performed By: #### L IPA, TSH, CRP, CMP ####[facility] [address] [place], [place] [address]Dr. Cortez Younger AST [Catalytic activity/Vol] 15 U/L Normal 15-37 [facility] Comment on above: Performed By: #### L IPA, TSH, CRP, CMP ####[facility] [address] [place], [place] [address]Dr. Cortez Younger Bilirubin [Mass/Vol] 0.5 mg/dL Normal 0.2-1.0 [facility] Comment on above: Performed By: #### L IPA, TSH, CRP, CMP ####[facility] [address] [place], [place] [address]Dr. Cortez Younger Calcium [Mass/Vol] 8.6 mg/dL Normal 8.5-10.1 [facility] Comment on above: Performed By: #### L IPA, TSH, CRP, CMP ####[facility] [address] [place], [place] [address]Dr. Cortez Younger Chloride [Moles/Vol] 100 mmol/L Normal 98-107 [facility] Comment on above: Performed By: #### L IPA, TSH, CRP, CMP ####[facility] [address] [address]Dr. Cortez Younger CO2 [Moles/Vol] 28.8 mmol/L Normal 21.0-32.0 [facility] Comment on above: Performed By: #### L IPA, TSH, CRP, CMP ####[facility] [address] [address]Dr. Cortez Younger Creatinine [Mass/Vol] 0.70 mg/dL Normal 0.70-1.30 [facility] Comment on above: Performed By: #### L IPA, TSH, CRP, CMP ####[facility] [address] [place], [place] [address]Dr. Cortez Younger EGFR-AF GIBRALTARIAN >60 Normal >=60 [facility] Comment on above: Performed By: #### L IPA, TSH, CRP, CMP ####[facility] [address] [place], [place] [address]Dr. Cortez Younger EGFR-NON AF GIBRALTARIAN >60 Normal >=60 [facility] Comment on above: Performed By: #### L IPA, TSH, CRP, CMP ####[facility] [address] [place], [place] [address]Dr. Cortez Aren Globulin (S) [Mass/Vol] 2.3 g/dL Normal [facility] Comment on above: Performed By: #### L IPA, TSH, CRP, CMP ####[facility] [address] [place], [place] [address]Dr. Cortez Younger Glucose [Mass/Vol] 111 mg/dL Critically high 74-106 [facility] Comment on above: Performed By: #### L IPA, TSH, CRP, CMP ####[facility] [address] [place], [place] [address]Dr. Cortez Younger Potassium [Moles/Vol] 3.9 mmol/L Normal 3.5-5.1 [facility] Comment on above: Performed By: #### L IPA, TSH, CRP, CMP ####[facility] [address] [place], [place] [address]Dr. Cortez Younger Protein [Mass/Vol] 6.2 g/dL Critically low 6.4-8.2 Th [facility] Comment on above: Performed By: #### L IPA, TSH, CRP, CMP ####[facility] [address] [id number]. Cortez Younger Sodium [Moles/Vol] 137 mmol/L Normal 136-145 [facility] Comment on above: Performed By: #### L IPA, TSH, CRP, CMP ####[facility] [address] [place], [place] [address]Xf. Cortez Younger Urea nitrogen [Mass/Vol] 6.0 mg/dL Critically low 7.0-18.0 [facility] Comment on above: Performed By: #### L IPA, TSH, CRP, CMP ####[facility] [address] [address]Dr. Cortez Younger Urea nitrogen/Creatinine [Mass ratio] 8.6 mg/mg Normal [facility] Comment on above: Performed By: #### L IPA, TSH, CRP, CMP ####[facility] [address] [address]Dr. Cortez Younger [facility] SED RATE <1 Normal <=20 [facility] Comment on above: Performed By: #### C BC #### [facility] [address] [address] [address] Cortez Younger [facility] TSH 1.031 uIU/mL Normal 0.358-3.740 [facility] Comment on above: Performed By: #### L IPA, TSH, CRP, CMP ####[facility] [address] [address]Dr. Cortez Younger Covid-19 PCR ([facility]on 05[facility]13 SARS-CoV-2 (COVID-19) RNA AXEL+probe Ql (Unsp spec) Not detected Normal NOT DETECTED [facility] Comment on above: Result Comment: When diagnostic [...] for this test is supported by the [place] of [employer] and Human Service's declaration that [...] used). Performed By: #### C BC #### [facility] [address] [place] [address] Dr. Cortez Younger INFLUENZA A AND B [facility] 05[facility] BEL[facility] Normal [facility] Comment on above: Result Comment: Nega tive for Flu A protein angiten. Infection due to Flu A cannot be ruled out. Flu A angiten in the sample may be below the detection limit of the test. Performed By: #### E RUR #### [facility] [address] [place] [address] Dr. Cortez Younger INFLUBNEG SEE BELOW Normal [facility] Comment on above: Result Comment: Nega tive for Flu B protein antigen. Infection due to Flu B cannot be ruled out. Flu B antigen in the sample may be below the detection limit of the test. Performed By: #### E RUR #### [facility] [address] [place] [address] Dr. Cortez Younger INFLUENZA A AG Negative Normal NEGATIVE SEE COMMENT [facility] Comment on above: Performed By: #### E RUR #### [facility] [address] [place] [address] Dr. Cortez Younger INFLUENZA B AG Negative Normal NEGATIVE SEE COMMENT [facility] Comment on above: Performed By: #### E RUR #### [facility] [address] [place] [address] Dr. Cortez Younger INTERNAL CONTROLS Within Normal Limits Normal Wi thin Normal Limits [facility] Comment on above: Performed By: #### E RUR #### [facility] [address] [place] [address] Dr. Cortez Younger XR CHEST 1 Von [...] KAIA SHEIKH Date: 2022-05-28 13:36 Normal [facility] PROF 14(COMP METB)on 022 Albumin [Mass/Vol] 3.9 g/dL Normal 3.4-5.0 [facility] Comment on above: Performed By: #### C MP #### [facility] [address] [place] [address] Dr. Cortez Younger Albumin/Globulin [Mass ratio] 1.4 {ratio} Normal [facility] Comment on above: Performed By: #### C MP #### [facility] [address] [place] [address] Dr. Cortez Younger ALP [Catalytic activity/Vol] 81 U/L Normal 46-116 [facility] Comment on above: Performed By: #### C MP #### [facility] [address] [place] [address] Dr. Cortze Younger ALT [Catalytic activity/Vol] 19 U/L Normal 16-63 [facility] Comment on above: Performed By: #### C MP #### [facility] [address] [address] [address] Cortez Younger Anion gap [Moles/Vol] 12.3 mmol/L Normal [facility] Comment on above: Performed By: #### C MP #### [facility] [address] [place] [address] Dr. Cortez Younger AST [Catalytic activity/Vol] 15 U/L Normal 15-37 [facility] Comment on above: Performed By: #### C MP #### [facility] [address] [place] [address] Dr. Cortez Younger Bilirubin [Mass/Vol] 0.3 mg/dL Normal 0.2-1.0 [facility] Comment on above: Performed By: #### C MP #### [facility] [address] [place] [address] Dr. Cortez Younger Calcium [Mass/Vol] 8.6 mg/dL Normal 8.5-10.1 [facility] Comment on above: Performed By: #### C MP #### [facility] [address] [place] [address] Dr. Cortez Younger Chloride [Moles/Vol] 101 mmol/L Normal 98-107 [facility] Comment on above: Performed By: #### C MP #### [facility] [address] [place] [address] Dr. Cortez Younger CO2 [Moles/Vol] 30.6 mmol/L Normal 21.0-32.0 [facility] Comment on above: Performed By: #### C MP #### [facility] [address] [place] [address] Dr. Cortez Younger Creatinine [Mass/Vol] 0.75 mg/dL Normal 0.70-1.30 [facility] Comment on above: Performed By: #### C MP #### [facility] [address] [place] [address] Dr. Cortez Younger EGFR-AF GIBRALTARIAN >60 Normal >=60 [facility] Comment on above: Performed By: #### C MP #### [facility] [address] [place] [address] Dr. Cortez Younger EGFR-NON AF GIBRALTARIAN >60 Normal >=60 [facility] Comment on above: Performed By: #### C MP #### [facility] [address] [place] [address] Dr. Cortez Younger Globulin (S) [Mass/Vol] 2.8 g/dL Normal [facility] Comment on above: Performed By: #### C MP #### [facility] [address] [place] [address] Dr. Cortez Younger Glucose [Mass/Vol] 98 mg/dL Normal 74-106 [facility] Comment on above: Performed By: #### C MP #### [facility] [address] [address] [address] Cortez Younger Potassium [Moles/Vol] 3.9 mmol/L Normal 3.5-5.1 [facility] Comment on above: Performed By: #### C MP #### [facility] [address] [address] [address] Cortez Younger Protein [Mass/Vol] 6.7 g/dL Normal 6.4-8.2 [facility] Comment on above: Performed By: #### C MP #### [facility] [address] [address] [address] Cortez Younger Sodium [Moles/Vol] 140 mmol/L Normal 136-145 [facility] Comment on above: Performed By: #### C MP #### [facility] [address] [place] [address] Dr. Cortez Younger Urea nitrogen [Mass/Vol] 5.0 mg/dL Critically low 7.0-18.0 [facility] Comment on above: Performed By: #### C MP #### [facility] [address] [address] [address] Cortez Younger Urea nitrogen/Creatinine [Mass ratio] 6.7 mg/mg Normal [facility] Comment on above: Performed By: #### C MP #### [facility] [address] [place] [address] Dr. Cortez Younger CBC AUTO DIFFon 01-18-2022 BASO # 0.0 103/ul Normal 0.0-0.1 [facility] Comment on above: Performed By: #### C BC #### [facility] [address] [place] [address] Dr. Cortez Younger Basophils/100 WBC (Bld) 0.1 % Critically low 0.2-2.0 [facility] Comment on above: Performed By: #### C BC #### [facility] [address] [address] [address] Cortez Younger EO # 0.0 103/ul Normal 0.0-0.7 [facility] Comment on above: Performed By: #### C BC #### [facility] [address] [place] [address] Dr. Cortez Younger Eosinophils/100 WBC (Bld) 0.0 % Critically low 0.9-7.0 [facility] Comment on above: Performed By: #### C BC #### [facility] [address] [place] [address] Dr. Cortez Younger Erythrocyte distribution width (RBC) [Ratio] 12.8 % Normal 11.0-15.0 [facility] Comment on above: Performed By: #### C BC #### [facility] [address] [place] [address] Dr. Cortez Younger Hematocrit (Bld) [Volume fraction] 42.7 % Normal 42.0-54.0 [facility] Comment on above: Performed By: #### C BC #### [facility] [address] [place] [address] Dr. Cortez Younger Hemoglobin (Bld) [Mass/Vol] 15.3 g/dL Normal 14.0-18.0 [facility] Comment on above: Performed By: #### C BC #### [facility] [address] [place] [address] Dr. Cortez Younger IG # 0.10 10e3/ul Critically high 0.00-0.03 [facility] Comment on above: Performed By: #### C BC #### [facility] [address] [place] [address] Dr. Cortez Younger IG % 0.7 % Critically high 0.0-0.5 [facility] Comment on above: Performed By: #### C BC #### [facility] [address] [place] [address] Dr. Cortez Younger LYMPH # 1.9 103/ul Normal 1.2-3.8 [facility] Comment on above: Performed By: #### C BC #### [facility] [address] [place] [address] Dr. Cortez Younger Lymphocytes/100 WBC (Bld) 13.5 % Critically low 20.5-60.0 [facility] Comment on above: Performed By: #### C BC #### [facility] [address] [place] [address] Dr. Cortez Younger MANUAL DIFF REQ NO Normal [facility] Comment on above: Performed By: #### C BC #### [facility] [address] [place] [address] Dr. Cortez Younger MCH (RBC) [Entitic mass] 31.4 pg Normal 25.9-34.0 [facility] Comment on above: Performed By: #### C BC #### [facility] [address] [place] [address] Dr. Cortez Younger MCHC (RBC) [Mass/Vol] 35.8 g/dL Critically high 29.9-35.2 [facility] Comment on above: Performed By: #### C BC #### [facility] [address] [place] [address] Dr. Cortez Younger MCV (RBC) [Entitic vol] 87.5 fL Normal 80.0-94.0 [facility] Comment on above: Performed By: #### C BC #### [facility] [address] [place] [address] Dr. Cortez Younger MONO # 0.8 103/ul Normal 0.3-0.8 [facility] Comment on above: Performed By: #### C BC #### [facility] [address] [place] [address] Dr. Cortez Younger Monocytes/100 WBC (Bld) 5.6 % Normal 1.7-12.0 [facility] Comment on above: Performed By: #### C BC #### [facility] [address] [place] [address] Dr. Cortez Younger NEUT # 11.4 103/ul Critically high 1.4-6.5 [facility] Comment on above: Performed By: #### C BC #### [facility] [address] [place] [address] Dr. Cortez Younger Neutrophils/100 WBC (Bld) 80.1 % Critically high 43.0-75.0 [facility] Comment on above: Performed By: #### C BC #### [facility] [address] [place] [address] Dr. Cortez Younger Platelet mean volume (Bld) [Entitic vol] 8.4 fL Critically low 9.5-13.5 [facility] Comment on above: Performed By: #### C BC #### [facility] [address] [address] [address] Cortez Younger PLT 352 103/ul Normal 150-450 [facility] Comment on above: Performed By: #### C BC #### [facility] [address] [place] [address] Dr. Cortez Younger RBC 4.88 106/ul Normal 4.70-6.10 [facility] Comment on above: Performed By: #### C BC #### [facility] [address] [place] [address] Dr. Cortez Younger WBC 14.2 103/ul Critically high 4.0-11.0 [facility] Comment on above: Performed By: #### C BC #### [facility] [address] [place] [address] Dr. Cortez Younger PROF 14(COMP METB)on 022 Albumin [Mass/Vol] 4.1 g/dL Normal 3.4-5.0 [facility] Comment on above: Performed By: #### C MP #### [facility] [address] [place] [address] Dr. Cortez Younger Albumin/Globulin [Mass ratio] 1.5 {ratio} Normal [facility] Comment on above: Performed By: #### C MP #### [facility] [address] [place] [address] Dr. Cortez Younger ALP [Catalytic activity/Vol] 77 U/L Normal 46-116 [facility] Comment on above: Performed By: #### C MP #### [facility] [address] [place] [address] Dr. Cortez Younger ALT [Catalytic activity/Vol] 19 U/L Normal 16-63 [facility] Comment on above: Performed By: #### C MP #### [facility] [address] [place] [address] Dr. Cortez Younger Anion gap [Moles/Vol] 10.6 mmol/L Normal [facility] Comment on above: Performed By: #### C MP #### [facility] [address] [address] [address] Cortez Younger AST [Catalytic activity/Vol] 8 U/L Critically low 15-37 [facility] Comment on above: Performed By: #### C MP #### [facility] [address] [address] [address] Cortez Younger Bilirubin [Mass/Vol] 0.3 mg/dL Normal 0.2-1.0 [facility] Comment on above: Performed By: #### C MP #### [facility] [address] [address] [address] Cortez Younger Calcium [Mass/Vol] 8.9 mg/dL Normal 8.5-10.1 [facility] Comment on above: Performed By: #### C MP #### [facility] [address] [address] [address] Cortez Younger Chloride [Moles/Vol] 91 mmol/L Critically low 98-107 [facility] Comment on above: Performed By: #### C MP #### [facility] [address] [address] [address] Cortez Younger CO2 [Moles/Vol] 30.1 mmol/L Normal 21.0-32.0 [facility] Comment on above: Performed By: #### C MP #### [facility] [address] [address] [address] Cortez Younger Creatinine [Mass/Vol] 0.88 mg/dL Normal 0.70-1.30 [facility] Comment on above: Performed By: #### C MP #### [facility] [address] [address] [address] Cortez Younger EGFR-AF GIBRALTARIAN >60 Normal >=60 [facility] Comment on above: Performed By: #### C MP #### [facility] [address] [address] [address] Cortez Younger EGFR-NON AF GIBRALTARIAN >60 Normal >=60 [facility] Comment on above: Performed By: #### C MP #### [facility] [address] [address] [address] Cortez Younger Globulin (S) [Mass/Vol] 2.8 g/dL Normal [facility] Comment on above: Performed By: #### C MP #### [facility] [address] [address] [address] Cortez Younger Glucose [Mass/Vol] 112 mg/dL Critically high 74-106 [facility] Comment on above: Performed By: #### C MP #### [facility] [address] [address] [address] Cortez Younger Potassium [Moles/Vol] 3.7 mmol/L Normal 3.5-5.1 [facility] Comment on above: Performed By: #### C MP #### [facility] [address] [place] [address] Dr. Cortez Younger Protein [Mass/Vol] 6.9 g/dL Normal 6.4-8.2 [facility] Comment on above: Performed By: #### C MP #### [facility] [address] [place] [address] [address] Cortez Younger Sodium [Moles/Vol] 128 mmol/L Critically low 136-145 [facility] Comment on above: Performed By: #### C MP #### [facility] [address] [place] [address] [address] Cortez Younger Urea nitrogen [Mass/Vol] 9.0 mg/dL Normal 7.0-18.0 [facility] Comment on above: Performed By: #### C MP #### [facility] [address] [place] [address] [address] Cortez Younger Urea nitrogen/Creatinine [Mass ratio] 10.2 mg/mg Normal [facility] Comment on above: Performed By: #### C MP #### [facility] [address] [place] [address] [address] Cortez Younger SED RATE [facility] 2021 SED RATE <1 Normal <=20 [facility] Comment on above: Performed By: #### S EDR ####[facility] [address] [place] [address]Dr. Cortez Younger UA RANDOMon 01-18-2022 Bilirubin Ql (U) Negative Normal NEGATIVE [facility] Comment on above: Performed By: #### E RUR #### [facility] [address] [place] [address] Dr. Cortez Younger Clarity (U) CLEAR Normal CLEAR [facility] Comment on above: Performed By: #### E RUR #### [facility] [address] [place] [address] [address] Cortez Younger Color (U) LT. YELLOW Normal YELLOW [facility] Comment on above: Performed By: #### E RUR #### [facility] [address] [place] [address] Dr. Cortez Younger Glucose Ql (U) Negative Normal NEGATIVE [facility] Comment on above: Performed By: #### E RUR #### [facility] [address] [place] [address] Dr. Cortez Younger Hemoglobin Ql (U) TRACE-LYSED Abnormal NEGATIVE [facility] Comment on above: Performed By: #### E RUR #### [facility] [address] [place] [address] Dr. Cortez Younger Ketones Ql (U) Negative Normal NEGATIVE [facility] Comment on above: Performed By: #### E RUR #### [facility] [address] [place] [address] Dr. Cortez Younger LEUKOCYTES TRACE Abnormal NEGATIVE [facility] Comment on above: Performed By: #### E RUR #### [facility] [address] [place] [address] Dr. Cortez Younger Nitrite Ql (U) Negative Normal NEGATIVE [facility] Comment on above: Performed By: #### E RUR #### [facility] [address] [place] [address] Dr. Cortez Younger pH (U) 6.5 [pH] Normal 5-9 [facility] Comment on above: Performed By: #### E RUR #### [facility] [address] [place] [address] [address] Cortez Younger SPEC GRAVITY <=1.005 Abnormal 1.005-<=1.025 [facility] Comment on above: Performed By: #### E RUR #### [facility] [address] [place] [address] [address] Cortez Younger UA PROTEIN Negative Normal NEGATIVE/ TRACE [facility] Comment on above: Performed By: #### E RUR #### [facility] [address] [place] [address] [address] Cortez Younger Urobilinogen Qn (U) 0.2 {Fidelia'U}/dL Normal 0.2 - 1. 0 [facility] Comment on above: Performed By: #### E RUR #### [facility] [address] [place] [address] Dr. Cortez Younger MRI CSPINE WO W [...] VERN LU Date: 2022-01-17 16:24 Normal [facility] MRI TSPINE WO W CONon 2021 MRI [...] by: VERN LU Date: 2022-01-17 16:29 Normal [facility] MRI BRAIN WO W CONon 022 [...] by: VERN LU Date: 2022-01-03 08:03 Normal [facility] Patient Educationon 12-25-19 Patient Education Oncology [...] including vitamins, herbs, eye drops, creams, and nrlb-lhq-auyejpq medicines. This also includes: ? Medicines to [...] 08/01/2005 Document Revised: 06/11/2018 Document Reviewed: 04/05/2018 [employer] Patient Education ? 2019 [email or web address]. [facility] Urology Office/Clinic Noteon 12-24-2021 Urology Office/Clinic [...] Urnls Dip Stick Auto w/o Microscopy POC 00697 3. Elevated PSA (R97.20: Elevated prostate specific antigen [PSA]) Most recent PSA done 08/13/21 5.24 Ordered: Urnls Dip Stick Auto w/o Microscopy POC 85523 Other obstructive and reflux uropathy (N13.8: Other obstructive and reflux uropathy) Follow-up With When Contact Information Star Manley MD, Gustavo Orlando, URO In 6 months [facility] [address], [place] [address]- Additional Instructions: w/ PVR Patient Education Prostate-Specific [...] tab(s), Or (more content not included)... Normal [facility] Comment on above: Result Comment: Elec tronically Signed By: Star Manley MD, Gustavo Orlando\.br\Date and Time Signed: 12/24/21 10:52 EDT\.br\Electronically Co-Signed By: Lynda Ortega\.br\Date and Time Co-Signed: 12/24/21 10:47 EDT Lab Reportson 12-16-2021 Lab Reports [id number]#1.00CD: 127 Normal [facility] Lab Reports [id number]#1.00CD: 127 Normal [facility] CULTURE URINEon 12-12-2021 CULTURE URINE Culture Observations : No growth Normal [facility] Comment on above: Performed By: #### U RCX ####[facility] [address] [place] [address]Dr. Cortez Younger UA RANDOMon 12-12-2021 Bilirubin Ql (U) Negative Normal NEGATIVE [facility] Comment on above: Performed By: #### U A #### [facility] [address] [place] [address] Dr. Cortez Younger Clarity (U) CLEAR Normal CLEAR [facility] Comment on above: Performed By: #### U A #### [facility] [address] [place] [address] Dr. Cortez Younger Color (U) LT. YELLOW Normal YELLOW [facility] Comment on above: Performed By: #### U A #### [facility] [address] [place] [address] Dr. Cortez Younger Glucose Ql (U) Negative Normal NEGATIVE [facility] Comment on above: Performed By: #### U A #### [facility] [address] [place] [address] Dr. Cortez Younger Hemoglobin Ql (U) LARGE Abnormal NEGATIVE [facility] Comment on above: Performed By: #### U A #### [facility] [address] [place] [address] Dr. Cortez Younger Ketones Ql (U) Negative Normal NEGATIVE [facility] Comment on above: Performed By: #### U A #### [facility] [address] [place] [address] Dr. Cortez Younger LEUKOCYTES Negative Normal NEGATIVE [facility] Comment on above: Performed By: #### U A #### [facility] [address] [place] [address] Dr. Cortez Younger Nitrite Ql (U) Negative Normal NEGATIVE [facility] Comment on above: Performed By: #### U A #### [facility] [address] [place], [place] [address] Dr. Cortez Younger pH (U) 7.0 [pH] Normal 5-9 [facility] Comment on above: Performed By: #### U A #### [facility] [address] [place] [address] [address] Cortez Younger SPEC GRAVITY 1.010 Normal 1.005-<=1.025 [facility] Comment on above: Performed By: #### U A #### [facility] [address] [place] [address] [address] Cortez Younger UA PROTEIN Negative Normal NEGATIVE/ TRACE [facility] Comment on above: Performed By: #### U A #### [facility] [address] [place] [address] [address] Cortez Younger Urobilinogen Qn (U) 0.2 {Fidelia'U}/dL Normal 0.2 - 1. 0 [facility] Comment on above: Performed By: #### U A #### [facility] [address] [place] [address] Dr. Cortez Younger Coding Summary.on 12-06-2021 Coding Summary. CD:[id number] Gh0b Ww+PGhlYWQ+ZC2OYSKlM25bx IAhjW7VU2zMOE1GPTNKNEQFB F1GSV2rwJR9EFrxM5WyfkAh LtygdVNwEQ13WAh7KEP2jItk HAttvR0pfOViW5f1NoBzUS05 eH27JSqlKCTcPpV0KtYpipga bWFy R9ylHwCcqKWnXdb+PHRhYmxl IHdpZHRoPScxMDAlJyBzdHls AJ8xFc3gYPXxCIIziOdbvABt OiBj w7txYZTbEKnaLZ1dfNbqF8Mj cXB4VOMke5v7Rr12bER+PHRk KCJ2oBseRCvqn874FkUgq0rc IDM3 hASzWYqmOAL1I10zk1A6YGJj BYQfOFA0fJR2aJ2yeGkoesup W3EtuXVeAjU8LUG2yCPorO9a bGln cuqimD1aHaf+R02PFH5ZOBTA JE2ZSlm9Z7XjFlhwwXU+PC90 JNNcFM56sDLavGDfe2ysnYo8 JzEw ZHUxJAT7aDkmNVxmy4WyRMSr B98kbZNxd2P9XSXgkHqhtKOf ItYaqTO7nS1lOZagpkreu8bt dzsn Akdln7wvxl68oG06C93eFJjp TNShSID0HZZpAOHylKhnru2w uK6fSj7+PJhtx9ony1odvHt9 IjIw FLKepmSdhWnzFFR6p8TiUn89 T5BdyQwmn6ZcOkk6bv89rTMn e1V5sIL9QQsrPNIwiY2mVWlz ZnQ6 AIPwTrRnaG02gBSvBUukUk3d fGvmjRltMC5fKYOgemwsGBJa vS2zAWBsmIKuuEruPF9cGVWn bjtm j911PbYtRBP2WHAkrCHtA1Yy qH7nGuXcKJQqESGzQ6FqoNBw WHkiJ393HAjoMeG6PDYwpaOp Y2Fs IBVjsPfnGtW6q9N6Xn5Hz5Iz hdovCBB3BZpcGTS4LaV6UpQb BtB8D4YzLuw4TEEbtRdwUX1k J3Bh JJXknkdkjbgdjGI1NVZuZRKd yT48qNPvXLfhOo2zs1A2o246 FFKuRITdmT21Ql6znCdkNDAd dCBU oR5iqdjzb6svdsypQtQhWOWp GQh3OCx0MXVsdUqaHyMeJSV8 PsR6DTO5eMRdiJ1zgWgiuqbl dG9w Oyc+Q62zzC9jKIH1EQK4soea OGWdmfHzNT10SA23G3EtAvmx dGFibGU+JWGwnnUwwKoaCS3i YmFj o6bte8ScECkhQ3UxEABeCCdd Lij8HHDiUPU1uYG4sP6yZXRh HQrks0V4xFV9P4RrqySgcs1m b2xs JQFxLNyuA46itTFaw5L4SJBl zJT1MUPxgHejIoEorZ86Oco+ WQSvpUmpf0HtKwide6wzi8mf dGg9 YyWfHOKhacMxoDesTEC8r1Ki Lu90Z70jTHwlHKUeSEWoZFGi TUMksCohyr8yqW0nSt8+PGNv bCB3 kFF9rT0fBRYnTiW4WMueV147 RmQdtRAzErqhp4rse7jpfRg2 WlQmBVEubhJyyPerAJY7m4Dx Lz48 R91rACtmZDBjRARsMHIqZZOd bMepec8qiK4zOm5+UK0kt2np ve24mT10wUA+YNXaOXJ3fWgc PSdw GLKxoU4bAPxgIgD5IOEhBfJc zG37mIUqISymSl4azPkzvNox KF1fXYKgzxffl807AeQvx5io IDEw rZHfGNsaSAG7K56aj7Y0MWCg PFCtTEZ0kAY7iF9cvGdozrnt bGVmdDsgdmVydGljYWwtYWxp Z246 IHRvcDsnPlBhdGllbnQgTmFt YIk1K8TvWgl6JIOzfLnqTD4j mKCyGPtfBh2zfHiatKpnJG2w NTBp sspzo643UuSlc7nrJSSftQIn BAmjVGO3Z17ra7M3ZRIfLZUc EJO2oSK5mP1ryFfgdynoqSLi dDsg fxTdqXolNHhjAUvcB828KCRq zLbsWdAkeaKuRQRvgSL9SY31 ZV75rKOno6A6oCL3T7DaUCFo bmct quqdwZD1VDBaZSLhtA36Is0p lBsfAp7cJYVeCPU2JLXlwXDz P9XgbK6mDsJgKZAuTYEnE3Ai eHQt CZqjT435UHvvYfC9ORYpcxIu M7ElEAJxkRtoVsW5c7P8Jh4U U7U1XF41YR20eQQui2D7zJB7 J3Bh CGDrrzvszcxmuOC6CNGnPRGw rB93Oy3tpBauDh3mEMPtSUT4 CZKooLJqH9NeyB5vTiOqBLCh MDAw G0LhqNIxJNknF211GRfaBdX4 DAMnntIhS3VmCLYofWbsMuV7 m8R5Ur0AYOj5PJ20YK04vZNy c3R5 wPP6Y7XeIFXaduxbpoefwMC7 DAOhPCFwpD39Ih5eqFthWv7r CIYdRJE0XMEsnKClB5ZhjU8y OiAj UJZiHDGaS1NkmBRnXOtsU959 QIqzPqW1EPHirgKxR7HgIIPs sDyyGsK6z3S6Kj1ZMIYxXP43 IFR5 nEC8AX55QO70E8FqCpvzvWMy bGU+PHRhYmxlIHdpZHRoPScx LVVvWpGtaVtbRD2bKl8pDRRq LWNv vVgntDFbClXuo7zfCIUhSLnm RB2avBbpH6CkdND1VBJap5g7 Gy03W38qT4MutQM+PGNvbCB3 aWR0 vV4fBhGlClC3EGfkJ403EeLf jHOvCitrb5kwl9gobKx4AcG2 MEVxgpKypQgiIHN1e7MyOh92 Y29s IHdpZHRoPSIxNSUiIHZhbGln pp1ocI5gIc3+CDMpfJU7sNF1 sP6wFdGwXmL6LElsG579OrGy cCIv Eztts8wnd3gygTd6IvYdSSFk mdIvnGhtEDP3x7XlCa02Q3Ej hTxjw5FuQwx9fz76gPOyg0L6 bGU9 C1OxCCNewfgcbNXlcYthQP9v PDJcygswPCQcrC0sYDDsE6g8 IuYkXnO2RVgyV7GaikM2FVUq cHQg CVkqOMJ0M68vy9P6ECTzMCYt VIO5xBO0oS0fiLvgdmxtsGMv eFykxnUitLevDOoqXUnuB884 IHRv iVbqHFHntF8zYPAnwOOcvLvj YN6nQUEhdqrkNfDFUgLMK1dU ICnmV2IFRA6sPGyyiRV+PHRk IHN0 gNyuJPaeNWCgvX0wWHDzC2j0 AzAlZpG5WYcyJ6OwUSIkhdkc Fy22hM5qEbAtKyX1YCouM2Kv bnQ6 TMUrfXSaLXnaMDU1X82dy3V3 GGCnSOPuROE7lHS4kM8haXwh bjogbGVmdDsgdmVydGljYWwt YWxp E112KAIjrLkrWbX3TxHkHiM6 Qnl4L5HtRvz2GWRyjHxwZN1f wDTcSOmrTc6ulHcmtSckZY1h NTBp cqwmVGAtzV2pZBZdmOAfiKzo HA5yGQXnptqqz839GcScMSX0 PWVvsMVlQ7ApyE1vXcQoKZQj MDAw P9PrcOPnVTmfZ172MTqbKvD1 CSNvsiRoR0ViDSExyEcsOxL7 m3Q8Uz47RuFRFEIibzkhaWS+ PHRk RSY2iCptZXisXNYnkA5oPKWq D1w9PiMoStW6LZhkN7IlOBOp kbzzOs12bH5nCvIpBuA9NCaz O2Zv fjQ2VBYieZRwHUobJZG3I86b e2X1KDEmEISoSFF3hDK9tQ2n bGlnbjogbGVmdDsgdmVydGlj YWwt APgeD913LLPyjUtgSc0ldNJ0 E0QyBgs7VGHtkCdoVG2yiZCj HYphQz5dyVfxePtuIF4vVHCa bjtw TWEueR5eKCBlrSRiuMekVJ5r ZSVkzwcbe874PoEsOFM6EDWy zVQeN7VilS3mGpGhRYNzZPFp O3Rl aAMuGVswH034SIszQtV4GTTi nmAjG2DtJGMmmWopNeP4q7L7 Wb9QgRJdBEEfSN27WE10JA55 L3Ry PjwvdGFibGU+PHRhYmxlIHdp DVRcJMafMGDuQpWifGdlKC2l Ww1oVHXkENIukMkjsFVvPbIb b2xs RLWvVQaxSO7ykBeiT5EotDD2 QKXty2c0Bg15A89qS4NcmQY+ DWLwmWT2sXX7aK7yCpUhEsW9 YWxp C292WnAlzWJlQiexb9rjb5cc oSy1UtWlWVXmqnZzjDggZBX0 s6IaGn18V52hIZymUDRfCMRe MCUi HDJxpNuuox4qdT3eQw9+PGNv aOL3sCH0tP2nCoZwDkY6SDxi E895VuDeeGRoTagxE87jQ0Nr dXA+ FMWhGnt9BBYvoWevAX9gySMj ZBxvOc9jMVQ8FvQrFvBiCMsz O6NgPYEcnkoinllgkVR4YFIk MDUw gA37Tk9vfVfhTb6lCIThCMB9 SIVayFCyQ4AafF6lUpSdAEEc GNUkX8DmeZDvLEbyV365IRhl ZnQ7 TTJaknMoS0PwJBWidElfCiW1 g7E6Jh4MmWfhwCZjKL7pKnHv VEw7Q3VeVyz5QVKjpSauBS5l cGFk ZUbnTz3reVgnaIveWW6bAHCu oyvck959XtGca2qeLMNmlFKk UGujQVI4A97ff2F7OUGhGKOq MDA7 iXO6oF7bpDmmibxhaQZktQoi gqNwvDxaTJbmCBubK453JBLb uZofOuRGFjg2N5QyBcj7MFSo dHls JV3jhXNgOOwcCk8guPbgaJsn ME3fLZGwzmscr650GdQft9yw FGCmmGHwXOucEOA5C26pp6E1 ICMw KAZnQZC6fSX6wC8weUnogrfg bGVmdDsgdmVydGljYWwtYWxp E956EKEqtDdiQl9ZOsm7Z0Du Pjx0 YIMgkCdaEH3djOSpDElbKb4s hQeqsTdiCW4lJBJwbjwhd493 OdIaj6xxDCFakIUmOZeiQPR5 Y29s a8S1BLRyCTBgSRW3sYV2eX4y bGlnbjogbGVmdDsgdmVydGlj HQejHGxuB207MHArhYqzLqNn eWVy OjwvdGQ+CH45of11B3TdJmhq Sik8SSOrLOZ6fEJ9qC9lZGIv ATass5B6sJS7H2BdlbGuri7u b2xs YXBz (more content not included)... Normal [facility] Consent for Procedure/Surger yon 12-05-2021 Consent for Procedure/Surgery [id number]#[id number] :127 [facility] Consent for Treatmenton -2 Consent for Treatment [id number]#1.00CD: 127 [facility] IntraOperative Documentson 0 12-05-2021 IntraOperative Documents [id number] :127 [facility] Main OR Intraoperative Recor don 12-05-2021 Main OR Intraoperative Record IntraOp Document Type FTURO Summary Primary Physician: Gustavo Graves Jr., MD Finalized Date/Time: 12/05/21 13:57:51 Pt. Name: HARISH MCKENNA /Sex: 1970 Male Med Rec #: [id number] Physician: Gustavo Graves Jr., MD Financial #: [id number] Pt. Type: O Room/Bed: / Admit/Disch: 12/05/21 11:48:14 - Institution: Case Times FTURO Entry 1 Patient Times In Room 12/05/21 13:23:00 Out Room 12/05/21 13:57:00 Procedure Times Start 12/05/21 13:40:00 Stop 12/05/21 13:53:00 Anesthesia Times Last Modified By: Veena Levin RN 12/05/21 13:57:47 Case Attendance FTURO Entry 1 Entry 2 Entry 3 Case Attendee Star Manley MD, Gustavo Sanders ONCOLOGY SOCIAL WORK, Veena Brower ONCOLOGY SOCIAL WORK, Ni Aguirre Role Performed Surgeon - Primary [...] Case Attendee Veena Levin RN Role Performed Skating Rink Manager - Primary Time In 12/05/21 13:23:00 Time Out 12/05/21 13:57:00 Procedure CYSTOSCOPY LOCAL UROLIFT(.) Comments Last Modified By: Veena Levin RN 12/05/21 13:57:48 Surgical Procedures FTURO Entry 1 Procedure Description Procedure CYSTOSCOPY LOCAL UROLIFT Modifiers . Surgeon Description CYSTOSCOPY LOCAL UROLIFT X 4 IMPLANTS; URETHRAL DILATION Primary Procedure Yes Primary Surgeon Star Manley MD, Gustavo Orlando Start 12/05/21 13:40:00 Stop 12/05/21 13:53:00 Anesthesia [...] Veena Sanders CST Applicable) Leonarda Aguirre CST, Julie A, Barbee RN, Kimberly Y Time Out Complete 12/05/21 [...] Implant Implant Identification Description UROLIFT Lot Number [id number] [employer] Catalog ?# [id number] Expiration Date 07/17/23 Usage Data Implant Site [...] patient probl (more content not included)... Normal [facility] Main OR Preoperative Recordo n 12-05-2021 Main OR Preoperative Record Holding Area Document Type FTURO Summary Primary Physician: Gustavo Graves Jr., MD Finalized Date/Time: 12/05/21 13:01:06 Pt. Name: HARISH MCKENNA/Sex: 1970 Male Med Rec #: [id number] Physician: Gustavo Graves Jr., MD Financial #: [id number] Pt. Type: O Room/Bed: / Admit/Disch: 12/05/21 [...] 12:28 Veena Levin RN 12/05/21 13:01 Normal [facility] Operative Reporton Operative Report Patient: HARISH [...] procedure (10 mg diazepam, 5/325 mg of [place]), Local Anesthesia (60cc 2% Xylocaine liquid inserted [...] well and was subsequently discharged home. Normal [facility] Comment on above: Result Comment: Elec tronically Signed By: Star Manley MD, Gustavo Orlando\.amanda\Date and Time Signed: 12/05/21 13:58 EDT CBC AUTO DIFFon 12-03-2021 BASO # 0.2 103/ul Critically high 0.0-0.1 [facility] Comment on above: Performed By: #### C BC ####[facility] [address] [place] [address]Dr. Cortez Younger Basophils/100 WBC (Bld) 1.3 % Normal 0.2-2.0 [facility] Comment on above: Performed By: #### C BC ####[facility] [address] [place] [address]Dr. Cortez Younger EO # 0.2 103/ul Normal 0.0-0.7 [facility] Comment on above: Performed By: #### C BC ####[facility] [address] [place] [address]Dr. Cortez Younger Eosinophils/100 WBC (Bld) 1.8 % Normal 0.9-7.0 [facility] Comment on above: Performed By: #### C BC ####[facility] [address] [place] [address]Dr. Cortez Younger Erythrocyte distribution width (RBC) [Ratio] 13.3 % Normal 11.0-15.0 [facility] Comment on above: Performed By: #### C BC ####[facility] [address] [place], [place] [address]Dr. Cortez Younger Hematocrit (Bld) [Volume fraction] 45.0 % Normal 42.0-54.0 [facility] Comment on above: Performed By: #### C BC ####[facility] [address] [place], [place] [address]Dr. Cortez Younger Hemoglobin (Bld) [Mass/Vol] 15.6 g/dL Normal 14.0-18.0 [facility] Comment on above: Performed By: #### C BC ####[facility] [address] [place], [place] [address]Dr. Cortez Younger IG # 0.05 10e3/ul Critically high 0.00-0.03 [facility] Comment on above: Performed By: #### C BC ####[facility] [address] [place] [address]Dr. Cortez Younger IG % 0.4 % Normal 0.0-0.5 [facility] Comment on above: Performed By: #### C BC ####[facility] [address] [place], [place] [address]Dr. Cortez Younger LYMPH # 1.8 103/ul Normal 1.2-3.8 [facility] Comment on above: Performed By: #### C BC ####[facility] [address] [place], [place] [address]Dr. Cortez Younger Lymphocytes/100 WBC (Bld) 15.2 % Critically low 20.5-60.0 [facility] Comment on above: Performed By: #### C BC ####[facility] [address] [place] [address]Dr. Cortez Younger MANUAL DIFF REQ NO Normal [facility] Comment on above: Performed By: #### C BC ####[facility] [address] [place] [address]Dr. Cortez Younger MCH (RBC) [Entitic mass] 31.1 pg Normal 25.9-34.0 [facility] Comment on above: Performed By: #### C BC ####[facility] [address] [place], [place] [address]Dr. Cortez Younger MCHC (RBC) [Mass/Vol] 34.7 g/dL Normal 29.9-35.2 [facility] Comment on above: Performed By: #### C BC ####[facility] [address] [place], [place] [address]Dr. Cortez Younger MCV (RBC) [Entitic vol] 89.8 fL Normal 80.0-94.0 [facility] Comment on above: Performed By: #### C BC ####[facility] [address] [place], [place] [address]Dr. Cortez Younger MONO # 0.6 103/ul Normal 0.3-0.8 [facility] Comment on above: Performed By: #### C BC ####[facility] [address] [place], [place] [address]Dr. Cortez Younger Monocytes/100 WBC (Bld) 5.3 % Normal 1.7-12.0 [facility] Comment on above: Performed By: #### C BC ####[facility] [address] [place], [place] [address]Dr. Cortez Younger NEUT # 8.9 103/ul Critically high 1.4-6.5 [facility] Comment on above: Performed By: #### C BC ####[facility] [address] [place], [place] [address]Dr. Cortez Younger Neutrophils/100 WBC (Bld) 76.0 % Critically high 43.0-75.0 [facility] Comment on above: Performed By: #### C BC ####[facility] [address] [place] [address]Dr. Cortez Younger Platelet mean volume (Bld) [Entitic vol] 8.9 fL Critically low 9.5-13.5 [facility] Comment on above: Performed By: #### C BC ####[facility] [address] [address]DrFish Younger PLT 414 103/ul Normal 150-450 [facility] Comment on above: Performed By: #### C BC ####[facility] [address] [address]DrFish Younger RBC 5.01 106/ul Normal 4.70-6.10 [facility] Comment on above: Performed By: #### C BC ####[facility] [address] [address]DrFish Younger WBC 11.7 103/ul Critically high 4.0-11.0 [facility] Comment on above: Performed By: #### C BC ####[facility] [address] [address]Dr. Cortez Younger PROF 14(COMP METB)on 022 Albumin [Mass/Vol] 3.8 g/dL Normal 3.4-5.0 [facility] Comment on above: Performed By: #### C BC #### [facility] [address] [address] [address] Cortez Younger Albumin/Globulin [Mass ratio] 1.3 {ratio} Normal [facility] Comment on above: Performed By: #### C BC #### [facility] [address] [address] [address] Cortez Younger ALP [Catalytic activity/Vol] 95 U/L Normal 46-116 [facility] Comment on above: Performed By: #### C BC #### [facility] [address] [address] [address] Cortez Younger ALT [Catalytic activity/Vol] 25 U/L Normal 16-63 [facility] Comment on above: Performed By: #### C BC #### [facility] [address] [place] [address] Dr. Cortez Younger Anion gap [Moles/Vol] 12.7 mmol/L Normal [facility] Comment on above: Performed By: #### C BC #### [facility] [address] [place] [address] Dr. Cortez Younger AST [Catalytic activity/Vol] 18 U/L Normal 15-37 [facility] Comment on above: Performed By: #### C BC #### [facility] [address] [place] [address] Dr. Cortez Younger Bilirubin [Mass/Vol] 0.3 mg/dL Normal 0.2-1.0 [facility] Comment on above: Performed By: #### C BC #### [facility] [address] [place] [address] Dr. Cortez Younger Calcium [Mass/Vol] mg/dL Normal 8.5-10.1 [facility] Comment on above: Performed By: #### C BC #### [facility] [address] [place] [address] Dr. Cortez Younger Chloride [Moles/Vol] 98 mmol/L Normal 98-107 [facility] Comment on above: Performed By: #### C BC #### [facility] [address] [place] [address] Dr. Cortez Younger CO2 [Moles/Vol] 28.9 mmol/L Normal 21.0-32.0 [facility] Comment on above: Performed By: #### C BC #### [facility] [address] [place] [address] Dr. Cortez Younger Creatinine [Mass/Vol] 0.84 mg/dL Normal 0.70-1.30 [facility] Comment on above: Performed By: #### C BC #### [facility] [address] [place] [address] Dr. Cortez Younger EGFR-AF GIBRALTARIAN >60 Normal >=60 [facility] Comment on above: Performed By: #### C BC #### [facility] [address] [address] [address] Cortez Younger EGFR-NON AF GIBRALTARIAN >60 Normal >=60 [facility] Comment on above: Performed By: #### C BC #### [facility] [address] [address] [address] Cortez Younger Globulin (S) [Mass/Vol] 3.0 g/dL Normal [facility] Comment on above: Performed By: #### C BC #### [facility] [address] [address] [address] Cortez Younger Glucose [Mass/Vol] 104 mg/dL Normal 74-106 [facility] Comment on above: Performed By: #### C BC #### [facility] [address] [address] [address] Cortez Younger Potassium [Moles/Vol] 3.6 mmol/L Normal 3.5-5.1 [facility] Comment on above: Performed By: #### C BC #### [facility] [address] [address] [address] Cortez Younger Protein [Mass/Vol] 6.8 g/dL Normal 6.4-8.2 [facility] Comment on above: Performed By: #### C BC #### [facility] [address] [place] [address] Dr. Cortez Younger Sodium [Moles/Vol] 136 mmol/L Normal 136-145 [facility] Comment on above: Performed By: #### C BC #### [facility] [address] [address] [address] Cortez Younger Urea nitrogen [Mass/Vol] 6.0 mg/dL Critically low 7.0-18.0 [facility] Comment on above: Performed By: #### C BC #### [facility] [address] [address] [address] Cortez Younger Urea nitrogen/Creatinine [Mass ratio] 7.1 mg/mg Normal [facility] Comment on above: Performed By: #### C BC #### [facility] [address] [place], [place] [address] Dr. Cortez Younger Consent for Procedure/Surger yon 10-15-2021 Consent for Procedure/Surgery [id number]: 127 Normal [facility] Patient Educationon 10-15-19 Patient Education Urology Hematuria, [...] these instructions at home: Medicines ? Take hhbp-jnm-fknshqa and prescription medicines only as told by [...] the blood stops without treatment. ? Take bxmr-vho-ufijlff and prescription medicines only as told by your health care provider. ? Drink enough fluid to keep your urine clear or pale yellow. This information is not intended to replace advice given to you by your health care provider. Make sure you discuss any questions you have with your health care provider. Document Released: 06/29/2006 Document Revised: 11/23/2019 Document Reviewed: 08/01/2017 [employer] Patient Education ? 2019 [email or web address]. [facility] Urology Office/Clinic Noteon 10-14-2021 Urology Office/Clinic [...] With When Contact Information Star Manley MD, Gustavo Orlando, [facility] [address] [place] [address]- Additional Instructions: Patient Education Hematuria, Adult Jaret Finley personally scribed for Dr. Graves on 10/14/2021 13:40:09. . Documentation recorded by the Sharonda yao accurately reflects the services(s) I performed and decis (more content not included)... Normal [facility] Comment on above: Result Comment: Elec tronically Signed By: Star Manley MD, Gustavo Orlando\.br\Date and Time Signed: 10/14/21 13:47 EDT\.br\Electronically Co-Signed By: Jaret Benz\.br\Date and Time Co-Signed: 10/14/21 13:40 EDT SURGICAL PATH REPORTon 01-25 SURGICAL PATH REPORT [facility] Department of Pathology [address] [place] [id number] Name: HARISH MCKENNA : [address] [facility] [id number] Number: Gender: Male Location: [facility] Admit 50 years Attending CRUZITO TOMLINSON JR Age: Provider: Ordering CRUZITO TOMLINSON JR Provider: Consulting: Surgical Pathology Report ACCESSION: COLLECTED DATE/TIME: RECEIVED DATE/TIME: PATHOLOGIST: [id number] 01/23/2021 12:05 EDT 01/24/2021 12:05 EDT ALVIN CADET MD Final Diagnosis Report for [facility], [place] ANTRUM, BIOPSY: - MILD CHRONIC GASTRITIS. - IMMUNOHISTOCHEMICAL STAIN FOR H. PYLORI ORGANISMS IS NEGATIVE. ALVIN CADET PATHOLOGIST (Electronic Signature) Date Verified 01/25/2021 Clinical Data PRE-OP DIAGNOSIS: Not specified POST-OP [...] MP/ts 01/24/2021 Tissue pathology report for: [facility], [address] [place] [address]; Print Date/ 01/25/2021 12:34 EDT Number: Time: [facility] Department of Pathology [address] [place] [id number] Name: HARISH MCKENNA : [address] [facility] [id number] Number: Gender: Male Location: [facility] Admit 50 years Attending CRUZITO TOMLINSON JR Age: Provider: Ordering CRUZITO TOMLISNON JR Provider: Consulting: Surgical Pathology Report ACCESSION: COLLECTED DATE/TIME: RECEIVED DATE/TIME: PATHOLOGIST: [id number] 01/23/2021 12:05 EDT 01/24/2021 12:05 EDT ALVIN CADET MD Gross Description PATHOLOGY SERVICES PROVIDED BY [employer] (CLIA #[id number]) in cooperation with [facility] at [address] [place], [place] [address] (CLIA #[id number]) Microscopic Diagnosis NOTE: One or more of the reagents used to perform assays on this specimen MAY have contained components considered to be analyte specific reagents ( ASRs). ASRs have not been cleared or approved by the U.S. Food and Drug Administration. The performance characteristics of these assays have been determined by the Department of Pathology at [facility]. This assay was performed subsequent to the H and E examination. Appropriate positive and negative controls were examined with appropriate reactivity. Codes CPT CODE: 93811 + 72100 Print Date/ 01/25/2021 12:34 EDT Number: Time: [facility] Comment on above: Performed By: #### [id number] #### [facility] [address] [id number] Insurance Claims Clerk: Alvin Cadet MD Vital Signs Date Time Vital Sign Value Performing Clinician Facility 03-25-2023 13:30-0400 Body height 177.8 cm Mahnaz Roth Other [employer] Other 03-25-2023 13:30-0400 Body mass index (BMI) [Ratio] 18.65 kg/m2 Mahnaz Roth Other [employer] Other 03-25-2023 13:30-0400 Body temperature 98.4 [degF] Mahnaz Marcelinow Other [employer] Other 03-25-2023 13:30-0400 Body weight 58.97 kg Mahnaz Marcelinow Other [employer] Other 03-25-2023 13:30-0400 Diastolic blood pressure 87 mm[Hg] Mahnaz Tuckerraw Other [employer] Other 03-25-2023 13:30-0400 Systolic blood pressure 135 mm[Hg] Mahnaz Tuckerraw Other [employer] Other 12-24-2021 09:50-0400 Blood Pressure Location Gustavo Graves Jr. [facility] 12-24-2021 09:50-0400 Diastolic blood pressure 76 mm[Hg] Gustavo Graves Jr. [facility] 12-24-2021 09:50-0400 Heart rate 68 /min Gustavo Graves Jr. [facility] 12-24-2021 09:50-0400 Systolic blood pressure 132 mm[Hg] Gustavo Star Manley [facility] Encounters Encounter Date Encounter Type Care Provider Facility Start: 09-09-2023 End: 09-09-2023 ambulatory BUBBA GHOTRA Not Available Start: 08-31-2023 End: 08-31-2023 ambulatory BUBBA OWENSYER Not Available Start: 08-21-2023 End: 08-21-2023 ambulatory Mahnaz Tuckerraw Other [employer] Other Start: 08-21-2023 Telephone encounter Mahnaz Ira [facility] Start: 07-22-2023 Telephone encounter Mahnaz Tuckerraw [facility] Start: 07-22-2023 End: 07-22-2023 ambulatory MATY MEDEIROS [employer] Other Start: 06-24-2023 End: 06-24-2023 ambulatory Mahnaz Marcelinow Other [employer] Other Start: 06-24-2023 Telephone encounter Mahnaz Tuckerraw [facility] Start: 05-28-2023 End: 05-28-2023 ambulatory Mahnaz Ira Other [employer] Other Start: 05-28-2023 Telephone encounter Mahnaz Marcelinow [facility] Start: 05-19-2023 End: 05-19-2023 ambulatory Mahnazmarybeth Marcelinow Other [employer] Other Start: 05-19-2023 Office outpatient visit 15 minutes Mahnaz Ira [facility] Start: 04-21-2023 End: 04-21-2023 ambulatory Mahnaz Ira Other [employer] Other Start: 04-21-2023 Office outpatient visit 15 minutes Mahnaz Ira [facility] Start: 04-07-2023 End: 04-07-2023 ambulatory Mahnaz Ira Other [employer] Other Start: 04-07-2023 Telephone encounter Mahnaz Ira [facility] Start: 04-02-2023 End: 04-02-2023 ambulatory Mahnaz Ira Other [employer] Other Start: 04-02-2023 Telephone encounter Mahnaz Ira [facility] Start: 04-01-2023 End: 04-01-2023 ambulatory Mahnaz Ira Other [employer] Other Start: 04-01-2023 Telephone encounter Mahnaz Ira [facility] Start: 03-25-2023 End: 03-25-2023 ambulatory Mahnaz Ira Other [employer] Other Start: 03-25-2023 Office outpatient ne w 60 minutes Mahnaz Ira [facility] Start: 11-13-2022 End: 11-13-2022 [...] Fac ility:[facility] Start: 09-16-2022 ambulatory LAMAR Sheikh ty:[facility] Start: 06-26-2022 End: 06-27-[address] LISA ROMERO . Facility:[facility] Start: 05-28-2022 End: 05-28-2022 ambulatory ESA LARIOS . Facility:[facility] Start: 03-13-2022 End: [address] LISA ROMERO . Facility:[facility] Start: 03-08-2022 ambulatory JERI PURCELL Facility:[facility] Start: 02-26-2022 End: 02-27-[address] VERN DURANT Facility:[facility] Start: 01-18-2022 End: 07-19-[address] VERN DURANT Facility:[facility] Start: 01-17-2022 End: 01-18-2022 ambulatory NONE LISTED REQUEST Facility:[facility] Start: 01-16-2022 End: 01-19-[address] DOCTOR BENNETT Facility:[facility] Start: 01-02-2022 End: 01-03-2022 ambulatory NONE LISTED REQUEST Facility: Start: 12-24-2021 End: 12-25-2021 ambulatory Heri MURRELL Facility:[facility] [place] Start: 12-24-2021 End: 12-24-2021 Patient encounter procedure Gustavo Graves Jr. [facility] Start: 12-17-2021 End: 12-19-[address] DOCTOR BENNETT Facility:[facility] Start: 12-12-2021 End: 12-13-2021 ambulatory LAMAR TURNER Facility: Start: 12-05-2021 End: 12-06-2021 ambulatory Heri MURRELL Facility:[facility] Start: 12-05-2021 End: 12-05-2021 Patient encounter procedure Gustavo Graves Jr. [facility] Start: 12-05-2021 ambulatory Heri MURRELL Facility :[facility] Start: 12-03-2021 End: 12-04-2021 ambulatory JERI PURCELL Facility: Start: 10-14-2021 End: 10-15-2021 ambulatory Heri MURRELL Facility:[facility] Start: 09-19-2021 ambulatory Heri MURRELL Facility : [facility] Start: 12-11-2017 End: 12-12-2017 Patient encounter procedure Tunde KrishnaFish Das Facility:[facility] Procedures Date Procedure Procedure Detail Performing Clinician Start: 10-14-2021 Cystoscopy Gustavo flores Jr. Start: 09-13-2019 Cystoscopy Gustavo flores Jr. Cholecystectomy Gustavo Graves Jr. Counseling Mahnaz corcoran Other Immunizations Immunization Date Immunization Notes Care Provider [facility] 10-22-2020 SARS-CoV-2 (COVID-19 ) mRNA BNT-162b2 vax Gustavo Graves Jr. [facility] 10-01-2020 SARS-CoV-2 (COVID-19 ) mRNA BNT-162b2 vax Gustavo Graves Jr. [facility] Payers Date Payer Category Payer Unknown [id number] 2.16.8 [id number] 1970 Unknown [id number] 2.16.8 40.1.783591.3.579.2.727 1970 Unknown [id number] 2.16.8 40.1.788330.3.579.2.727 1970 Unknown [id number] 2.16.8 40.1.789104.3.579.2.727 1970 Unknown [id number] 2.16.8 40.1.506478.3.579.2.727 1970 Unknown [id number] 2.16.84 0.1.229695.3.579.2.593 1970 Unknown [id number] 2.16.84 0.1.474213.3.579.2.593 1970 Unknown [id number] 2.16.84 0.1.640413.3.579.2.593 1970 Unknown [id number] 2.16.84 0.1.107760.3.579.2.593 1970 Unknown [id number] 2.16.84 0.1.796691.3.579.2.593 1969 Unknown [id number] 2.16.84 0.1.696223.3.579.2.593 1969 Unknown [id number] 2.16.84 0.1.255558.3.579.2.593 1969 Unknown [id number] 2.16.84 0.1.243461.3.579.2.593 1969 Unknown [id number] 2.16.84 0.1.912438.3.579.2.593 1970 Unknown [id number] 2.16.84 0.1.596870.3.579.2.593 1969 Unknown [id number] 2.16.84 0.1.383212.3.579.2.593 1970 Unknown [id number] 2.16.84 0.1.718393.3.579.2.593 1970 Unknown [id number] 2.16.84 0.1.940010.3.579.2.593 1970 Unknown [id number] 2.16.84 0.1.006447.3.579.2.593 1970 Unknown [id number] 2.16.84 0.1.281451.3.579.2.593 1969 Unknown [id number] 2.16.84 0.1.927750.3.579.2.593 1970 Unknown [id number] 2.16.84 0.1.825721.3.579.2.593 1969 Unknown [id number] 2.16.84 0.1.672991.3.579.2.593 1970 Unknown [id number] 2.16.84 0.1.088852.3.579.2.593 1969 Unknown [id number] 2.16.84 0.1.539869.3.579.2.593 1970 Unknown [id number] 2.16.84 0.1.186207.3.579.2.1286 1969 Unknown [id number] 2.16.84 0.1.089356.3.579.2.1259 1969 Unknown [id number] 2.16.84 0.1.571953.3.579.2.1259 1960 Medicaid [id number] 1960 Medicare [id number] 1960 Self-pay Social History Date Type Detail Facility Start: 10-14-2021 Tobacco smoking status Ex-smoker (fi nding) [facility] Sex Assigned At Male [facility] Functional Status Date Assessment Result Facility 12-24-2021 Functional Status N/A [facility] [employer] Clinical Notes 12-05-2021 to 08-21-2023 Note Date & Type Note Facility 08-21-2023 Evaluation note Encounter Date Diagnosis Assessment Notes Aug, Chronic pain (ICD-10 - G89.29) [facility] reviewed, consistent with Rx. MME 60 mg/day [employer] Other 01-10-2024 Evaluation note* Encounter Date Diagnosis Assessment Notes Treatment Notes Treatment Clinical Notes Jul, Chronic pain (ICD-10 - G89.29) [facility] reviewed, consistent with Rx. Also has benzo prescribed by [facility] and pregabalin by neurology [employer] Other 12-13-2023 Evaluation note* Encounter Date Diagnosis Assessment Notes Treatment Notes Treatment Clinical Notes Jun, Chronic pain (ICD-10 - G89.29) [employer] Other 11-16-2023 Evaluation note* Encounter Date Diagnosis Assessment Notes Treatment Notes Treatment Clinical Notes May, Chronic pain (ICD-10 - G89.29) [facility] reviewed, consistent with Rx [employer] Other 11-07-2023 Evaluation note* Encounter Date Diagnosis [...] at bedtime instead of using PRN only [employer] Other 10-10-2023 Evaluation note* Encounter Date Diagnosis Assessment Notes Treatment Notes Treatment Clinical Notes Apr, Chronic pain (ICD-10 - G89.29) [facility] reviewed, consistent with Rx. Harish reports some relief with oxycodone 10 mg tabs, and is using med 3-4x/daily. Continue same without change. Apr, Constipation (ICD-10 - K59.00) Improved elimination with daily use of senna [employer] Other 09-26-2023 Evaluation note* Encounter Date Diagnosis [...] reported some lose stools after using routinely [employer] Other 09-20-2023 Evaluation note* Encounter Date Diagnosis Assessment Notes Treatment Notes Treatment Clinical Notes Mar, Chronic pain (ICD-10 - G89.29) [facility] reviewed, consistent with recent Rx. Increasing frequency of oxycodone to q6h PRN to improve pain control. Mar, Constipation (ICD-10 - K59.00) Harish is using Miralax daily but remains constipated, will add stimulant laxative [employer] Other 09-13-2023 Evaluation note* Encounter Date Diagnosis [...] of Constipation hand out provided to patient [employer] Other 04-06-2023 NoteCONSULTATION CONSULTATION DATE: 10/16/2022 TO: [...] 25 mg daily, Lyrica 200 mg t.i.d., [place] 7.5 mg b.i.d. He currently uses medical [...] THC if we are to continue with [place]. However, at this point, I do not [...] our patients to inform us about any pium-ghh-ozkhtzr medications or herbal remedies/nutritional supplements/alternative remedies. 2. [...] treatment options with their primary care provider.[id number] Note CONSULTATION CONSULTATION DATE: 06/26/2022 HISTORY OF [...] Lyrica 200 mg t.i.d. per his neurologist, [place] 7.5/325 b.i.d., Cymbalta, baclofen and Ocrevus. Patient's [...] medication changes today. He was increased to [place] 7.5/325 at his last visit, and the patient feels it is somewhat helpful. We will continue to medically manage him only. Patient will be seen in the clinic in three months' time unless otherwise indicated.[facility] [id number] NoteCONSULTATION CONSULTATION DATE: 03/13/2022 HISTORY OF PRESENT ILLNESS: This is 51-year-old gentleman, well known to the Pain Clinic, returning for a three month follow up. This gentleman has history of MS, chronic pain syndrome and diffuse neuropathic pain, which is chronically medically managed with a medication regimen. Current medications include Mobic 15 mg daily, Lyrica 200 mg t.i.d., [place] 5/325 t.i.d., baclofen, Trileptal and amitriptyline. Patient recently suffered a family loss and reportedly has lost about 12 pounds in weight. He does ambulate with a cane and is stable with that. He is requesting today that we change his [place] from t.i.d. to 7.5 b.i.d. as he [...] pain. PLAN: We will check from his [place] 5/325 t.i.d. to 7.5/325 b.i.d. We will maintain his other medications with no dose or frequency change. He will be given a U-Tox in the clinic today. I did discuss vitamin importance as well as supplementing his protein intake with Boost supplements. We will see the patient in three months' time, unless otherwise indicated. Patient is in agreement to this.[id number] Hospital Discharge instructions Patient Education 12/24/2021 10:47:00 [...] including vitamins, herbs, eye drops, creams, and kxry-qis-tzbxljb medicines. This also includes: ?Medicines to assist [...] 08/01/2005 Document Revised: 06/11/2018 Document Reviewed: 04/05/2018 [employer] Patient Education 2020 [email or web address]. Follow Up Care 12/05/2021 14:04:21 With:Star Manley MD, LION Borja Address: [facility] [address] [place] [address]- When:Within 6 Month(s) Comments:w/ PVR [facility] 05-26-2022 Note [id number]:127[facility] 12-05-2021 NoteUrolift ? Some men may [...] personnel to use a Coude (pronouncedcoo-day) tipped catheter.[facility]05-26-2022 Hospital Discharge instructions Patient Education 12/05/2021 [...] [facility] [address], [place] [address]- Business (1) When:2 to 4 weeks Comments:PVR with next [facility] Future Appointments Appointment Date:12/24/2021 09:30:00 AM Scheduled Provider:Gustavo Graves Jr., MD Location:[facility] Appointment Type:[facility]O [facility] Future Appointments Appointment Date:07/01/2022 10:45:00 AM Scheduled Provider:Gustavo Graves Jr., MD Location:[facility] Appointment Type:URO Office Visit [facility] evaluation noteNo InformationN[facility]Fair[facility] Other History general Narrative - Reported* Type Description Date Medical History multiple sclerosis Medical History bipolar Medical History GERD Surgical History cholecystectomy [facility] Other Hospital course Narrative No data available for this section [facility] No data available for this section [facility] Summary Purpose Family History No Family [...] section and content) DATE CREATED AUTHOR 09/18/2018 [facility] DATE CREATED AUTHOR AUTHOR'S ORGANIZ ATION 01/25/2021 [facility] DATE CREATED AUTHOR AUTHOR'S ORGANIZ ATION 09/16/2022 [facility] DATE CREATED AUTHOR AUTHOR'S ORGANIZ ATION 11/18/2022 [facility] [place] [facility] DATE CREATED AUTHOR AUTHOR'S ORGANIZ ATION 07/26/2023 [facility] DATE CREATED AUTHOR AUTHOR'S ORGANIZ ATION 09/12/2023 [facility] Care Team (unrecognized sect ion and content) Personnel Name: BRANDIN DARLING, BUBBA Chand Address: [address] [place] [address] [place] [address] REASON FOR VISIT (unrecogniz ed section and [...] BE BASED ON THE PRIMARY CLINICAL RECORDS. [employer] provides no warranty or guarantee of the accuracy or completeness of information in this document.
--- NOTE | 2023-09-18 10:26 | US_ITS ---
The [address] [address] Patient Name: SERGIO MCKENNA MRN: [id number] date: 1970 Sex: M Assigned Patient Location: US Current Patient Location: US Accession/Order Number: [id number] Exam Date: 09/18/2023 10:45 Report Date: 09/18/2023 11:50 At the request of: RANDALL GHOTRA Procedure: US venous doppler LE RT Ultrasound venous duplex scan right lower extremity CLINICAL: Right lower extremity pain, swelling, redness TECHNIQUE: Lyon-scale, color Doppler and Duplex examination of the right lower extremity was performed with and without provocative maneuvers. FINDINGS: Comparison: None. Sonographic examination of the right lower extremity deep venous system to include the common femoral, superficial femoral and popliteal veins, demonstrates normal compressibility, color-flow, respiratory variation, and augmentation. The origin of the greater saphenous vein demonstrates normal compression, and there is normal color-flow in the proximal profunda femoral vein. There is normal color-flow in the peroneal, posterior tibial, and anterior tibial veins. US/US venous doppler LE RT IMPRESSION: 1. No deep venous thrombosis in the right lower extremity. Electronically authenticated by: ESTHER BERKOWITZ Date: 09/18/2023 11:50
== END 2023-09-18 10:19 | disposition home or self-care (01) ==
LOC: US 10:19
PROVIDERS: PCP Family Medicine; Visit Provider Family Medicine
DX: R60.0 Localized edema (principal); G35 Multiple sclerosis; I10 Essential (primary) hypertension
CPT/HCPCS: 93971

== ENCOUNTER 2023-10-15 20:21 | Emergency (ER) | payer MEDICARE, MEDICAID, SELFPAY ==
--- OUTSIDE RECORDS SUMMARY | 2023-10-15 20:57 | XMS_ITS | CCD ---
Author Organization [facility] Care Team Providers Care Manager Grocery Name Role Phone Tunde Das Admitting Unavailable Tunde Das Attending Unavailable Bubba Ghotra Primary Care Unavailable BUBBA GHOTRA Primary Care Physician Heri MURRELL Referring Unavailable Heri MURRELL Admitting Unavailable Heri MURRELL Attending Unavailable Heri MURRELL Attending Unavailable LAMAR TURNER Attending Unavailable Heri MURRELL Attending Unavailable RIC ., ESA Attending Unavailable RIC ., ESA Admitting Unavailable HEMEYER ., DR PEREIRA Primary Care Unavailable MARKER ., DR LIN Consulting Unavailable RIC ., ESA Consulting Unavailable LAKSHMIPATHY ., NARENDLUNA Consulting Maureen vailable HEMEYER [...] MISC, DR MASON Admitting Unavailable REQUEST, DR KATELIN GARCIA Primary Care UnavailABIMAEL Willis Consulting Unavailable DONALD, DR MASON Attending Unavailable JULIO ., DR VILLAGOMEZ Attending Unavailable JULIO ., DR VILLAGOMEZ Admitting Unavailable FLOWER, DR CRUZITO Schuster Consulting Unavailable HEMEYER ., [...] Translations: [paroxetine] Drug Allergy Mild (qualifier value) [facility] (2 sources) PARoxetine Drug Allergy 3 [facility] (12 sources) venlafaxine Drug Allergy 3 Unknown [facility] Medications Current Medications Medication Drug Class(es) Dates Sig (Normalized) Sig (Original) [id number] 60 actuat albuterol 0.09 mg/actuat metered dose [...] procedure., # 14 tab(s), Refills(s) 0, Pharmacy: [facility]/pharmacy #[id number], 178, , 10/14/21 12:57:00 EDT, [...] procedure, # 1 tab(s), Refills(s) 0, Pharmacy: [facility]/pharmacy #[id number], 178, , 10/14/21 12:57:00 EDT, [...] 08/06/21 Status: Ordered take 1 capsule by [facility] every twenty-four hours DULoxetine HCl 60 [...] Ordered take 1 tablet by rachel every twelve hours Metoprolol Tartrate 50 MG [...] bedtime Orally Once a day Active sennosides, halfway 8.6 mg oral tablet (9 sources) Start: [...] 3 Episodic Other aftercare (1 source) Other [facility]iary (current) drug therapy; Translations: [OTH CARE HOME CURRENT DRUG THERAPY] Onset: 3 Episodic Other [...] Amylase [Catalytic activity/Vol] 37 U/L Normal 25-115 [facility] Comment on above: Performed By: #### A MY, CMP, LIPA ####[facility] [address] [place] [address]Dr. Cortez Younger CBC AUTO DIFFon 11-13-2022 BASO # 0.1 103/ul Normal 0.0-0.1 [facility] Comment on above: Performed By: #### C BC #### [facility] [address] [address] [address] Cortez Younger Basophils/100 WBC (Bld) 1.3 % Normal 0.2-2.0 [facility] Comment on above: Performed By: #### C BC #### [facility] [address] [place] [address] Dr. Cortez Younger EO # 0.1 103/ul Normal 0.0-0.7 [facility] Comment on above: Performed By: #### C BC #### [facility] [address] [address] [address] Cortez Younger Eosinophils/100 WBC (Bld) 0.9 % Normal 0.9-7.0 [facility] Comment on above: Performed By: #### C BC #### [facility] [address] [place] [address] Dr. Cortez Younger Erythrocyte distribution width (RBC) [Ratio] 12.5 % Normal 11.0-15.0 [facility] Comment on above: Performed By: #### C BC #### [facility] [address] [place] [address] Dr. Cortez Younger Hematocrit (Bld) [Volume fraction] 42.3 % Normal 42.0-54.0 [facility] Comment on above: Performed By: #### C BC #### [facility] [address] [place] [address] Dr. Cortez Younger Hemoglobin (Bld) [Mass/Vol] 15.1 g/dL Normal 14.0-18.0 [facility] Comment on above: Performed By: #### C BC #### [facility] [address] [place] [address] Dr. Cortez Younger IG # 0.04 10e3/ul Critically high 0.00-0.03 [facility] Comment on above: Performed By: #### C BC #### [facility] [address] [place] [address] Dr. Cortez Younger IG % 0.6 % Critically high 0.0-0.5 [facility] Comment on above: Performed By: #### C BC #### [facility] [address] [place] [address] Dr. Cortez Younger LYMPH # 1.4 103/ul Normal 1.2-3.8 [facility] Comment on above: Performed By: #### C BC #### [facility] [address] [place] [address] Dr. Cortez Younger Lymphocytes/100 WBC (Bld) 20.7 % Normal 20.5-60.0 [facility] Comment on above: Performed By: #### C BC #### [facility] [address] [place] [address] Dr. Cortez Younger MANUAL DIFF REQ NO Normal [facility] Comment on above: Performed By: #### C BC #### [facility] [address] [place] [address] Dr. Cortez Younger MCH (RBC) [Entitic mass] 31.6 pg Normal 25.9-34.0 [facility] Comment on above: Performed By: #### C BC #### [facility] [address] [place] [address] Dr. Cortez Younger MCHC (RBC) [Mass/Vol] 35.7 g/dL Critically high 29.9-35.2 [facility] Comment on above: Performed By: #### C BC #### [facility] [address] [place] [address] Dr. Cortez Younger MCV (RBC) [Entitic vol] 88.5 fL Normal 80.0-94.0 [facility] Comment on above: Performed By: #### C BC #### [facility] [address] [place] [address] Dr. Cortez Younger MONO # 0.5 103/ul Normal 0.3-0.8 [facility] Comment on above: Performed By: #### C BC #### [facility] [address] [place] [address] Dr. Cortez Younger Monocytes/100 WBC (Bld) 7.7 % Normal 1.7-12.0 [facility] Comment on above: Performed By: #### C BC #### [facility] [address] [place] [address] Dr. Cortez Younger NEUT # 4.8 103/ul Normal 1.4-6.5 [facility] Comment on above: Performed By: #### C BC #### [facility] [address] [place] [address] Dr. Cortez Younger Neutrophils/100 WBC (Bld) 68.8 % Normal 43.0-75.0 [facility] Comment on above: Performed By: #### C BC #### [facility] [address] [place] [address] Dr. Cortez Younger Platelet mean volume (Bld) [Entitic vol] 9.0 fL Critically low 9.5-13.5 [facility] Comment on above: Performed By: #### C BC #### [facility] [address] [address] [address] Cortez Younger PLT 384 103/ul Normal 150-450 [facility] Comment on above: Performed By: #### C BC #### [facility] [address] [address] [address] Cortez Younger RBC 4.78 106/ul Normal 4.70-6.10 [facility] Comment on above: Performed By: #### C BC #### [facility] [address] [address] [address] Cortez Younger WBC 7.0 103/ul Normal 4.0-11.0 [facility] Comment on above: Performed By: #### C BC #### [facility] [address] [place] [address] Dr. Cortez Younger ER URINE PROFILEon 3 Bilirubin Ql (U) Negative Normal NEGATIVE [facility] Comment on above: Performed By: #### E RUR ####[facility] [address] [place], [place] [address]Dr. Cortez Younger Clarity (U) CLEAR Normal CLEAR [facility] Comment on above: Performed By: #### E RUR ####[facility] [address] [place], [place] [address]Dr. Cortez Younger Color (U) LT. YELLOW Normal YELLOW [facility] Comment on above: Performed By: #### E RUR ####[facility] [address] [place], [place] [address]DrFish Younger ERUAHD A micrscopic examina tion will be performed if indicated. Normal [facility] Comment on above: Performed By: #### E RUR ####[facility] [address] [place], [place] [address]DrFish Younger Glucose Ql (U) Negative Normal NEGATIVE [facility] Comment on above: Performed By: #### E RUR ####[facility] [address] [place], [place] [address]Dr. Cortez Younger Hemoglobin Ql (U) Negative Normal NEGATIVE [facility] Comment on above: Performed By: #### E RUR ####[facility] [address] [place], [place] [address]Dr. Cortez Younger Ketones Ql (U) Negative Normal NEGATIVE [facility] Comment on above: Performed By: #### E RUR ####[facility] F[address] [place], [place] [address]Dr. Cortez Younger LEUKOCYTES Negative Normal NEGATIVE [facility] Comment on above: Performed By: #### E RUR ####[facility] [address] [place], [place] [address]Dr. Cortez Younger Nitrite Ql (U) Negative Normal NEGATIVE [facility] Comment on above: Performed By: #### E RUR ####[facility] [address] [place], [place] [address]Dr. Cortez Younger pH (U) 7.5 [pH] Normal 5-9 [facility] Comment on above: Performed By: #### E RUR ####[facility] [address] [place], [place] [address]Dr. Cortez Younger SPEC GRAVITY <=1.005 Abnormal 1.005-<=1.025 [facility] Comment on above: Performed By: #### E RUR ####[facility] [address] [place], [place] [address]Dr. Cortez Aren UA PROTEIN Negative Normal NEGATIVE/ TRACE [facility] Comment on above: Performed By: #### E RUR ####[facility] [address] [place], [place] [address]Dr. Cortez Aren UR MICRO IND NOT INDICATED Normal [facility] Comment on above: Performed By: #### E RUR ####[facility] [address] [place], [place] [address]Dr. Cortez Aren Urobilinogen Qn (U) 0.2 {Fidelia'U}/dL Normal 0.2 - 1. 0 [facility] Comment on above: Performed By: #### E RUR ####[facility] [address] [place] [address]Dr. Cortez Younger LIPASEon 11-13-2022 Lipase [Catalytic activity/Vol] 111.0 U/L Normal 73.0-393.0 [facility] Comment on above: Performed By: #### A MY, CMP, LIPA ####[facility] [address] [place] [address]Dr. Cortez Younger PROF 14(COMP METB)on 023 Albumin [Mass/Vol] 3.9 g/dL Normal 3.4-5.0 [facility] Comment on above: Performed By: #### A MY, CMP, LIPA ####[facility] [address] [place] [address]Dr. Cortez Younger Albumin/Globulin [Mass ratio] 1.4 {ratio} Normal [facility] Comment on above: Performed By: #### A MY, CMP, LIPA ####[facility] [address] [place], [place] [address]Dr. Cortez Younger ALP [Catalytic activity/Vol] 70 U/L Normal 46-116 [facility] Comment on above: Performed By: #### A MY, CMP, LIPA ####[facility] Ll[address] [place], [place] [address]Dr. Cortez Younger ALT [Catalytic activity/Vol] 24 U/L Normal 16-63 [facility] Comment on above: Performed By: #### A MY, CMP, LIPA ####[facility] [address] [place] [address]Dr. Cortez Younger Anion gap [Moles/Vol] 9.8 mmol/L Normal [facility] Comment on above: Performed By: #### A MY, CMP, LIPA ####[facility] [address] [place] [address]Dr. Cortez Younger AST [Catalytic activity/Vol] 12 U/L Critically low 15-37 [facility] Comment on above: Performed By: #### A MY, CMP, LIPA ####[facility] [address] [place] [address]Dr. Cortez Younger Bilirubin [Mass/Vol] 0.3 mg/dL Normal 0.2-1.0 [facility] Comment on above: Performed By: #### A MY, CMP, LIPA ####[facility] [address] [place] [address]Dr. Cortez Younger Calcium [Mass/Vol] 9.2 mg/dL Normal 8.5-10.1 [facility] Comment on above: Performed By: #### A MY, CMP, LIPA ####[facility] [address] [place] [address]Dr. Cortez Younger Chloride [Moles/Vol] 98 mmol/L Normal 98-107 [facility] Comment on above: Performed By: #### A MY, CMP, LIPA ####[facility] [address] [place], [place] [address]Dr. Cortez Younger CO2 [Moles/Vol] 28.7 mmol/L Normal 21.0-32.0 [facility] Comment on above: Performed By: #### A MY, CMP, LIPA ####[facility] [address] [place] [address]Dr. Cortez Younger Creatinine [Mass/Vol] 0.88 mg/dL Normal 0.70-1.30 [facility] Comment on above: Performed By: #### A MY, CMP, LIPA ####[facility] [address] [place] [address]Dr. Cortez Younger EGFR-AF IRISH >60 Normal >=60 [facility] Comment on above: Performed By: #### A MY, CMP, LIPA ####[facility] [address] [place] [id number]. Cortez Younger EGFR-NON AF IRISH >60 Normal >=60 [facility] Comment on above: Performed By: #### A MY, CMP, LIPA ####[facility] [address] [place] [address]Dr. Cortez Younger Globulin (S) [Mass/Vol] 2.7 g/dL Normal [facility] Comment on above: Performed By: #### A MY, CMP, LIPA ####[facility] [address] [place] [address]Dr. Cortez Younger Glucose [Mass/Vol] 105 mg/dL Normal 74-[address] [facility] Comment on above: Performed By: #### A MY, CMP, LIPA ####[facility] [address] [place] [address]Dr. Cortez Younger Potassium [Moles/Vol] 3.5 mmol/L Normal 3.5-5.1 [facility] Comment on above: Performed By: #### A MY, CMP, LIPA ####[facility] [address] [place] [address]Dr. Cortez Younger Protein [Mass/Vol] 6.6 g/dL Normal 6.4-8.[address] [facility] Comment on above: Performed By: #### A MY, CMP, LIPA ####[facility] [address] [place] [address]Dr. Cortez Younger Sodium [Moles/Vol] 133 mmol/L Critically low 136-145 [facility] Comment on above: Performed By: #### A MY, CMP, LIPA ####[facility] [address] [place] [address]Dr. Cortez Younger Urea nitrogen [Mass/Vol] 4.0 mg/dL Critically low 7.0-18.0 [facility] Comment on above: Performed By: #### A MY, CMP, LIPA ####[facility] [address] [place] [address]Dr. Cortez Younger Urea nitrogen/Creatinine [Mass ratio] 4.5 mg/mg Normal [facility] Comment on above: Performed By: #### A MY, CMP, LIPA ####[facility] [address] [place] [address]Dr. Cortez Younger XR ABD FLAT UP_PA Farideh [...] by: CRUZITO CRENSHAW Date: 2022-11-13 13:22 Normal [facility] FREE T4on 10-31-2022 Free T4 [Mass/Vol] 1.03 ng/dL Normal 0.76-1.46 [facility] Comment on above: Performed By: #### E RUR #### [facility] [address] [place] [address] Dr. Cortez Younger LIPID PROFILEon 10-31-2022 CHOL-HDL RATIO NORM SEE BELOW Normal [facility] Comment on above: Result Comment: 3.3 - 4.4 LOW RISK 4.4 - 7.1 AVERAGE RISK 7.1 - 11.0 MODERATE RISK >11.0 HIGH RISK Performed By: #### E RUR #### [facility] [address] [address] [address] Cortez Younger Cholesterol [Mass/Vol] 165 mg/dL Normal <=200 [facility] Comment on above: Performed By: #### E RUR #### [facility] [address] [address] [address] Cortez Younger Cholesterol in HDL [Mass/Vol] 59 mg/dL Normal 40-60 [facility] Comment on above: Performed By: #### E RUR #### [facility] [address] [address] [address] Cortez Younger Cholesterol in LDL [Mass/Vol] 83.8 mg/dL Normal [facility] Comment on above: Performed By: #### E RUR #### [facility] [address] [address] [address] Cortez Younger Cholesterol.total/C holesterol in HDL [Mass ratio] 2.8 {ratio} Normal [facility] Comment on above: Performed By: #### E RUR #### [facility] [address] [place] [address] Dr. Cortez Younger HDL NORMAL > or = 60 mg/dl - LO W CARDIOVASCULAR RISK <40 mg/dl - HIGH CARDIOVASCULAR RISK Normal [facility] Comment on above: Performed By: #### E RUR #### [facility] [address] [address] [address] Cortez Younger LDL CALC NORMAL SEE BELOW Normal [facility] Comment on above: Result Comment: <100 mg/dl OPTIMAL 100 - 129 mg/dl NEAR OR ABOVE OPTIMAL 130 - 159 mg/dl BORDERLINE HIGH 160 - 189 mg/dl HIGH >190 mg/dl VERY HIGH Performed By: #### E RUR #### [facility] [address] [address] [address] Cortez Younger Triglyceride [Mass/Vol] 111 mg/dL Normal <=150 [facility] Comment on above: Performed By: #### E RUR #### [facility] [address] [place] [address] Dr. Cortez Younger VLDL CALC 22.2 mg/dL Normal [facility] Comment on above: Performed By: #### E RUR #### [facility] [address] [place] [address] Dr. Cortez Younger MRI BRAIN WO W [...] VERN LU Date: 2022-10-31 13:12 Normal [facility] PROF 14(COMP METB)on 023 Albumin [Mass/Vol] 4.0 g/dL Normal 3.4-5.[address] [facility] Comment on above: Performed By: #### C MP ####[facility] [address] [place] [address]Dr. Cortez Younger Albumin/Globulin [Mass ratio] 1.3 {ratio} Normal [facility] Comment on above: Performed By: #### C MP ####[facility] [address] [place], [place] [address]Dr. Cortez Younger ALP [Catalytic activity/Vol] 66 U/L Normal 46-116 [facility] Comment on above: Performed By: #### C MP ####[facility] R[address] [place], [place] [address]Dr. Cortez Younger ALT [Catalytic activity/Vol] 21 U/L Normal 16-63 [facility] Comment on above: Performed By: #### C MP ####[facility] [address]se[address] [place], [place] [address]Dr. Cortez Younger Anion gap [Moles/Vol] 9.4 mmol/L Normal [facility] Comment on above: Performed By: #### C MP ####[facility] [address] [place], [place] [address]Dr. Cortez Younger AST [Catalytic activity/Vol] 10 U/L Critically low 15-37 [facility] Comment on above: Performed By: #### C MP ####[facility] [address] [place], [place] [address]Dr. Cortez Younger Bilirubin [Mass/Vol] 0.4 mg/dL Normal 0.2-1.0 [facility] Comment on above: Performed By: #### C MP ####[facility] [address]ur[address] [place], [place] [address]Dr. Cortez Younger Calcium [Mass/Vol] 9.1 mg/dL Normal 8.5-10.1 [facility] Comment on above: Performed By: #### C MP ####[facility] [address] [place] [address]Dr. Cortez Younger Chloride [Moles/Vol] 98 mmol/L Normal 98-107 [facility] Comment on above: Performed By: #### C MP ####[facility] [address]mr[address] [place] [address]Dr. Cortez Younger CO2 [Moles/Vol] 29.8 mmol/L Normal 21.0-32.0 [facility] Comment on above: Performed By: #### C MP ####[facility] [address] [place], [place] [address]Dr. Cortez Younger Creatinine [Mass/Vol] 0.89 mg/dL Normal 0.70-1.30 [facility] Comment on above: Performed By: #### C MP ####[facility] [address]fc[address] [place], [place] [address]Dr. Cortez Younger EGFR-AF IRISH >60 Normal >=60 [facility] Comment on above: Performed By: #### C MP ####[facility] [address] [place], [place] [address]Dr. Cortez Younger EGFR-NON AF IRISH >60 Normal >=60 [facility] Comment on above: Performed By: #### C MP ####[facility] [address] [place] [address]Dr. Cortez Aren Globulin (S) [Mass/Vol] 3.1 g/dL Normal [facility] Comment on above: Performed By: #### C MP ####[facility] [address] [place] [address]Dr. Cortez Aren Glucose [Mass/Vol] 109 mg/dL Critically high 74-106 [facility] Comment on above: Performed By: #### C MP ####[facility] [address] [place] [address]Dr. Cortez Younger Potassium [Moles/Vol] 4.2 mmol/L Normal 3.5-5.1 [facility] Comment on above: Performed By: #### C MP ####[facility] [address] [place] [id number]. Cortez Younger Protein [Mass/Vol] 7.1 g/dL Normal 6.4-8.2 [facility] Comment on above: Performed By: #### C MP ####[facility] [address] [place] [id number]. Cortez Younger Sodium [Moles/Vol] 133 mmol/L Critically low 136-145 [facility] Comment on above: Performed By: #### C MP ####[facility] [address]ds[address] [place] [address]Dr. Cortez Younger Urea nitrogen [Mass/Vol] 7.0 mg/dL Normal 7.0-18.0 [facility] Comment on above: Performed By: #### C MP ####[facility] [address]ur[address] [place] [address]Dr. Cortez Younger Urea nitrogen/Creatinine [Mass ratio] 7.9 mg/mg Normal [facility] Comment on above: Performed By: #### C MP ####[facility] [address] [place] [address]DrFish Younger TSHon 10-31-2022 TSH 1.574 uIU/mL Normal 0.358-3.740 [facility] Comment on above: Performed By: #### T SH #### [facility] [address] [address] [address] Cortez Younger COMPLIANCE DRUG SCREENon PDF . Normal [facility] Comment on above: Performed By: #### E RUR #### [facility] [address] [address] [address] Cortez Younger Summary FINAL Normal [facility] Comment on above: Result Comment: == TOXASSURE [...] test is not intended to distinguish between hicfy-1-vgiqtvtebldsdwbubmdp, the predominant form of THC in most herbal or marijuana-based products, and bpnky-1-mumysonrimowqsohuenh. Norhydrocodone 1620 ng/mg creat Norhydrocodone is an [...] == Performed By: #### E RUR #### [facility] [address] [place] [address] Dr. Cortez Younger HYDROCODONE AND METABOLITE, URINEon 10-24-2022 Hydrocodone 55 ng/mL Normal [facility] Comment on above: Performed By: #### E RUR #### [facility] [address] [place] [address] Dr. Cortez Younger Hydromorphone Negative Normal [facility] Comment on above: Result Comment: This test was developed and its performance characteristics determined by [employer]. It has not been cleared or approved by the Food and Drug Administration. Performed By: #### E RUR #### [facility] [address] [place] [address] Dr. Cortez Younger OSMOLALITYon 10-20-2022 Osmolality QNSREP Normal [facility] Comment on above: Result Comment: Spec imen quantity insufficient for verification by repeat analysis. contacted Lynda at your facility on 10-20-2022 Performed By: #### C BC #### [facility] [address] [place] [address] Dr. Cortez Younger OSMOLALITY URINEon Osmolality, Urine 119 mOsmol/kg Normal [facility] Comment on above: Result Comment: 24 h r : 300 - 900 Random: 50 - 1400 After 12hr fluid restriction: >850 Performed By: #### O SMOU ####[facility] [address] [place] [id number]. Cortez Aren CBC AUTO DIFFon 10-16-2022 BASO # 0.0 103/ul Normal 0.0-0.1 [facility] Comment on above: Performed By: #### C BC ####[facility] [address] [place], [place] [address]Dr. Cortez Younger Basophils/100 WBC (Bld) 0.3 % Normal 0.2-2.0 [facility] Comment on above: Performed By: #### C BC ####[facility] [address]usuc[address] [place], [place] [address]Dr. Cortez Younger EO # 0.0 103/ul Normal 0.0-0.7 [facility] Comment on above: Performed By: #### C BC ####[facility] [address] [place], [place] [address]Dr. Cortez Younger Eosinophils/100 WBC (Bld) 0.2 % Critically low 0.9-7.0 [facility] Comment on above: Performed By: #### C BC ####[facility] [address] [place], [place] [address]Dr. Cortez Younger Erythrocyte distribution width (RBC) [Ratio] 12.1 % Normal 11.0-15.0 [facility] Comment on above: Performed By: #### C BC ####[facility] [address] [place], [place] [address]Dr. Cortez Younger Hematocrit (Bld) [Volume fraction] 45.9 % Normal 42.0-54.0 [facility] Comment on above: Performed By: #### C BC ####[facility] O[address] [place], [place] [address]Dr. Cortez Younger Hemoglobin (Bld) [Mass/Vol] 16.7 g/dL Normal 14.0-18.0 [facility] Comment on above: Performed By: #### C BC ####[facility] [address]tmxjfjtbx[address] [place], [place] [address]Dr. Cortez Younger IG # 0.06 10e3/ul Critically high 0.00-0.03 [facility] Comment on above: Performed By: #### C BC ####[facility] [address]jorqmd[address] [place] [id number]. Eleanorvalerie Younger IG % 0.5 % Normal 0.0-0.5 [facility] Comment on above: Performed By: #### C BC ####[facility] Mxhsymusqi32[address] [place] [id number]. Eleanorvalerie Younger LYMPH # 1.5 103/ul Normal 1.2-3.8 [facility] Comment on above: Performed By: #### C BC ####[facility] Agpgmhuteo[address]99 [place] [id number]. Eleanorvalerie Younger Lymphocytes/100 WBC (Bld) 13.5 % Critically low 20.5-60.0 [facility] Comment on above: Performed By: #### C BC ####[facility] [address] [place] [address]Dr. Cortez Younger MANUAL DIFF REQ NO Normal [facility] Comment on above: Performed By: #### C BC ####[facility] Vflodnhygl7[address] [place] [id number]. Cortez Yonuger MCH (RBC) [Entitic mass] 31.2 pg Normal 25.9-34.0 [facility] Comment on above: Performed By: #### C BC ####[facility] Musnmbfntk[address] [place] [id number]. Cortez Younger MCHC (RBC) [Mass/Vol] 36.4 g/dL Critically high 29.9-35.2 [facility] Comment on above: Performed By: #### C BC ####[facility] Pvvsffrqur7279 [place] [id number]. Cortez Younger MCV (RBC) [Entitic vol] 85.6 fL Normal 80.0-94.0 [facility] Comment on above: Performed By: #### C BC ####[facility] X[address]ou[address] [place], [place] [id number]. Cortez Younger MONO # 0.6 103/ul Normal 0.3-0.8 [facility] Comment on above: Performed By: #### C BC ####[facility] Jgys[address]wkwv4148 [place], [place] [address]Ou. Cortez Younger Monocytes/100 WBC (Bld) 5.4 % Normal 1.7-12.0 [facility] Comment on above: Performed By: #### C BC ####[facility] Fscdrlltcf8328 [place], [place] [address]Cn. Cortez Younger NEUT # 8.9 103/ul Critically high 1.4-6.5 [facility] Comment on above: Performed By: #### C BC ####[facility] Xgcrgouzpk1221 [place] [id number]. Cortez Younger Neutrophils/100 WBC (Bld) 80.1 % Critically high 43.0-75.0 [facility] Comment on above: Performed By: #### C BC ####[facility] Ayafeufttg1542 [place] [id number]. Cortez Younger Platelet mean volume (Bld) [Entitic vol] 9.7 fL Normal 9.5-13.5 [facility] Comment on above: Performed By: #### C BC ####[facility] Iucgrwucfw85[address] [place] [id number]. Cortez Younger PLT 364 103/ul Normal 150-450 [facility] Comment on above: Performed By: #### C BC ####[facility] Vxfjevgbrm9453 [place] [id number]. Cortez Younger RBC 5.36 106/ul Normal 4.70-6.10 [facility] Comment on above: Performed By: #### C BC ####[facility] Tvvjzbsywv3367 [place] [id number]. Cortez Younger WBC 11.1 103/ul Critically high 4.0-11.0 [facility] Comment on above: Performed By: #### C BC ####[facility] Alhkmchpso14[address] [place] [id number]. Cortez Younger Covid-19 PCR ([facility]on SARS-CoV-2 (COVID-19) RNA AXEL+probe Ql (Unsp spec) Not detected Normal NOT DETECTED [facility] Comment on above: Result Comment: When diagnostic [...] for this test is supported by the [place] of Health and Human Service's declaration that [...] be used). Performed By: #### C VDTB ####[facility] Fjwblvcrph[address] [place] [address]Dr. Cortez Younger DRUG SCREEN RAPID (URINE)on 10-16-2022 AMP Negative Normal NEGATIVE [facility] Comment on above: Performed By: #### C BC #### [facility] [address] [place] [address] Dr. Cortez Younger BAR Positive Abnormal NEGATIVE [facility] Comment on above: Performed By: #### C BC #### [facility] [address] [place] [address] Dr. Cortez Younger BUP Negative Normal NEGATIVE [facility] Comment on above: Performed By: #### C BC #### [facility] [address] [address] [address] Cortez Younger BZO Positive Abnormal NEGATIVE [facility] Comment on above: Performed By: #### C BC #### [facility] [address] [place] [address] Dr. Cortez Younger OK Negative Normal NEGATIVE [facility] Comment on above: Performed By: #### C BC #### [facility] [address] [place] [address] Dr. Cortez Younger CUT-OFFS SEE BELOW Normal [facility] Comment on above: Result Comment: AMP (Amphetamine): 500ng/mL, BAR (Barbituates): 200 ng/mL, BZO (Benzodiazepines): 150 ng/mL, BUP (Buprenorphine): 10 ng/mL, OK (Cocaine): 150 ng/mL, mAMP (Methamphetamine): 500 ng/mL, MTD (Methadone): 200 ng/mL, OPI (Opiates): 100 ng/mL, OXY (Oxycodone): 100 ng/mL, PCP (Phencyclidine): 25 ng/mL, PPX (Propoxyphene): 300 ng/mL, THC (Cannabinoids): 50 ng/mL, TCA (Trycyclic Antidepressants): 300 ng/mL Performed By: #### C BC #### [facility] [address] [place] [address] Dr. Cortez Younger DRUG CUT HEADER DRUG CLASS TEST SYST EM CUT-OFF CONCENTRATIONS ARE FOLLOWS: Normal [facility] Comment on above: Performed By: #### C BC #### [facility] [address] [place] [address] Dr. Cortez Younger mAMP Negative Normal NEGATIVE [facility] Comment on above: Performed By: #### C BC #### [facility] [address] [place] [address] Dr. Cortez Younger MTD Negative Normal NEGATIVE [facility] Comment on above: Performed By: #### C BC #### [facility] [address] [place] [address] Dr. Cortez Younger OPI Positive Abnormal NEGATIVE [facility] Comment on above: Performed By: #### C BC #### [facility] [address] [place] [address] Dr. Cortez Younger OXY Negative Normal NEGATIVE [facility] Comment on above: Performed By: #### C BC #### [facility] [address] [place] [address] Dr. Cortez Younger PCP Negative Normal NEGATIVE [facility] Comment on above: Performed By: #### C BC #### [facility] [address] [place] [address] Dr. Cortez Younger PPX Negative Normal NEGATIVE [facility] Comment on above: Performed By: #### C BC #### [facility] [address] [place] [address] [address] Cortez Younger TCA Negative Normal NEGATIVE [facility] Comment on above: Performed By: #### C BC #### [facility] [address] [place] [address] [address] Cortez Younger THC Positive Abnormal NEGATIVE [facility] Comment on above: Performed By: #### C BC #### [facility] [address] [place] [address] [address] Cortez Younger ER URINE PROFILEon 3 Bilirubin Ql (U) Negative Normal NEGATIVE [facility] Comment on above: Performed By: #### C BC #### [facility] [address] [place] [address] Dr. Cortez Younger Clarity (U) CLEAR Normal CLEAR [facility] Comment on above: Performed By: #### C BC #### [facility] [address] [place] [address] Dr. Cortez Younger Color (U) LT. YELLOW Normal YELLOW [facility] Comment on above: Performed By: #### C BC #### [facility] [address] [place] [address] Dr. Cortez Younger ERUYONYD A micrscopic examina tion will be performed if indicated. Normal [facility] Comment on above: Performed By: #### C BC #### [facility] [address] [place] [address] Dr. Cortez Younger Glucose Ql (U) Negative Normal NEGATIVE [facility] Comment on above: Performed By: #### C BC #### [facility] [address] [place] [address] Dr. Cortez Younger Hemoglobin Ql (U) Negative Normal NEGATIVE [facility] Comment on above: Performed By: #### C BC #### [facility] [address] [place] [address] Dr. Cortez Younger Ketones Ql (U) Negative Normal NEGATIVE [facility] Comment on above: Performed By: #### C BC #### [facility] [address] [place] [address] [address] Cortez Younger LEUKOCYTES Negative Normal NEGATIVE [facility] Comment on above: Performed By: #### C BC #### [facility] [address] [place] [address] Dr. Cortez Younger Nitrite Ql (U) Negative Normal NEGATIVE [facility] Comment on above: Performed By: #### C BC #### [facility] [address] [place] [address] Dr. Cortez Younger pH (U) 7.5 [pH] Normal 5-9 [facility] Comment on above: Performed By: #### C BC #### [facility] [address] [place] [address] Dr. Cortez Younger SPEC GRAVITY <=1.005 Abnormal 1.005-<=1.025 [facility] Comment on above: Performed By: #### C BC #### [facility] [address] [place] [address] Dr. Cortez Younger UA PROTEIN Negative Normal NEGATIVE/ TRACE [facility] Comment on above: Performed By: #### C BC #### [facility] [address] [place] [address] Dr. Cortez Younger UR MICRO IND NOT INDICATED Normal [facility] Comment on above: Performed By: #### C BC #### [facility] [address] [place] [address] Dr. Cortez Younger Urobilinogen Qn (U) 0.2 {Fidelia'U}/dL Normal 0.2 - 1. 0 [facility] Comment on above: Performed By: #### C BC #### [facility] [address] [place] [address] Dr. Cortez Younger NAon 10-16-2022 Sodium [Moles/Vol] 125 mmol/L Critically low 136-145 [facility] Comment on above: Performed By: #### E RUR #### [facility] [address] [place] [address] Dr. Cortez Younger POTASSIUM URINEon 10-16-2022 UR POTASSIUM 11.8 mmol/L Normal [facility] Comment on above: Performed By: #### K U ####[facility] [address] [place], [place] [address]VxDr. Cortez Younger PROF 14(COMP METB)on 023 Albumin [Mass/Vol] 4.2 g/dL Normal 3.4-5.0 [facility] Comment on above: Performed By: #### E RUR #### [facility] [address] [place] [address] [address] Cortez Younger Albumin/Globulin [Mass ratio] 1.3 {ratio} Normal [facility] Comment on above: Performed By: #### E RUR #### [facility] [address] [place] [address] [address] Cortez Younger ALP [Catalytic activity/Vol] 75 U/L Normal 46-116 [facility] Comment on above: Performed By: #### E RUR #### [facility] [address] [place] [address] [address] Cortez Younger ALT [Catalytic activity/Vol] 23 U/L Normal 16-63 [facility] Comment on above: Performed By: #### E RUR #### [facility] [address] [place] [address] [address] Cortez Younger Anion gap [Moles/Vol] 9.7 mmol/L Normal [facility] Comment on above: Performed By: #### E RUR #### [facility] [address] [place] [address] [address] Cortez Younger AST [Catalytic activity/Vol] 16 U/L Normal 15-37 [facility] Comment on above: Performed By: #### E RUR #### [facility] [address] [place] [address] [address] Cortez Younger Bilirubin [Mass/Vol] 0.4 mg/dL Normal 0.2-1.0 [facility] Comment on above: Performed By: #### E RUR #### [facility] [address] [place] [address] [address] Cortez Younger Calcium [Mass/Vol] 9.1 mg/dL Normal 8.5-10.1 [facility] Comment on above: Performed By: #### E RUR #### [facility] [address] [place] [address] [address] Cortez Younger Chloride [Moles/Vol] 88 mmol/L Critically low 98-107 [facility] Comment on above: Performed By: #### E RUR #### [facility] [address] [place] [address] [address] Cortez Younger CO2 [Moles/Vol] 26.5 mmol/L Normal 21.0-32.0 [facility] Comment on above: Performed By: #### E RUR #### [facility] [address] [place] [address] Dr. Cortez Younger Creatinine [Mass/Vol] 0.73 mg/dL Normal 0.70-1.30 [facility] Comment on above: Performed By: #### E RUR #### [facility] [address] [place] [address] Dr. Cortez Younger EGFR-AF IRISH >60 Normal >=60 [facility] Comment on above: Performed By: #### E RUR #### [facility] [address] [place] [address] Dr. Cortez Younger EGFR-NON AF IRISH >60 Normal >=60 [facility] Comment on above: Performed By: #### E RUR #### [facility] [address] [place] [address] Dr. Cortez Younger Globulin (S) [Mass/Vol] 3.2 g/dL Normal [facility] Comment on above: Performed By: #### E RUR #### [facility] [address] [place] [address] Dr. Cortez Younger Glucose [Mass/Vol] 109 mg/dL Critically high 74-106 [facility] Comment on above: Performed By: #### E RUR #### [facility] [address] [place] [address] Dr. Cortez Younger Potassium [Moles/Vol] 4.2 mmol/L Normal 3.5-5.1 [facility] Comment on above: Performed By: #### E RUR #### [facility] [address] [place] [address] [address] Cortez Younger Protein [Mass/Vol] 7.4 g/dL Normal 6.4-8.2 [facility] Comment on above: Performed By: #### E RUR #### [facility] [address] [place] [address] [address] Cortez Younger Sodium [Moles/Vol] 120 mmol/L Critically low 136-145 [facility] Comment on above: Performed By: #### E RUR #### [facility] [address] [place] [address] [address] Cortez Younger Urea nitrogen [Mass/Vol] 7.0 mg/dL Normal 7.0-18.0 [facility] Comment on above: Performed By: #### E RUR #### [facility] [address] [place] [address] [address] Cortez Younger Urea nitrogen/Creatinine [Mass ratio] 9.6 mg/mg Normal [facility] Comment on above: Performed By: #### E RUR #### [facility] [address] [place] [address] [address] Cortez Younger SODIUM RANDOM URINEon 2022 Sodium (U) [Moles/Vol] 26 mmol/L Critically low 30-90 [facility] Comment on above: Performed By: #### N AU ####[facility] [address] [place] [address]Dr. Cortez Younger ACETONE SERUMon 10-07-2022 ACETONE Negative Normal NEGATIVE [facility] Comment on above: Performed By: #### E RUR #### [facility] [address] [place] [address] [address] Cortez Younger CBC AUTO DIFFon 10-07-2022 BASO # 0.1 103/ul Normal 0.0-0.1 [facility] Comment on above: Performed By: #### C BC ####[facility] [address]frx[address] [place] [address]Dr. Cortez Younger Basophils/100 WBC (Bld) 0.8 % Normal 0.2-2.0 [facility] Comment on above: Performed By: #### C BC ####[facility] [address]uz[address] [place] [address]Dr. Cortez Younger EO # 0.0 103/ul Normal 0.0-0.7 [facility] Comment on above: Performed By: #### C BC ####[facility] [address]qmlum[address] [place] [address]Dr. Cortez Younger Eosinophils/100 WBC (Bld) 0.2 % Critically low 0.9-7.0 [facility] Comment on above: Performed By: #### C BC ####[facility] [address] [place], [place] [address]Dr. Cortez Younger Erythrocyte distribution width (RBC) [Ratio] 12.1 % Normal 11.0-15.0 [facility] Comment on above: Performed By: #### C BC ####[facility] [address] [place], [place] [address]Dr. Cortez Younger Hematocrit (Bld) [Volume fraction] 42.9 % Normal 42.0-54.0 [facility] Comment on above: Performed By: #### C BC ####[facility] [address]kw[address]te[address] [place], [place] [address]Dr. Cortez Younger Hemoglobin (Bld) [Mass/Vol] 15.4 g/dL Normal 14.0-18.0 [facility] Comment on above: Performed By: #### C BC ####[facility] [address] [place], [place] [address]Dr. Cortez Younger IG # 0.04 10e3/ul Critically high 0.00-0.03 [facility] Comment on above: Performed By: #### C BC ####[facility] [address]em[address] [place], [place] [address]Dr. Cortez Younger IG % 0.4 % Normal 0.0-0.5 [facility] Comment on above: Performed By: #### C BC ####[facility] [address] [place], [place] [address]Dr. Cortez Younger LYMPH # 1.3 103/ul Normal 1.2-3.8 [facility] Comment on above: Performed By: #### C BC ####[facility] J[address]qpsqor[address] [place] [id number]. Cortez Aren Lymphocytes/100 WBC (Bld) 13.7 % Critically low 20.5-60.0 [facility] Comment on above: Performed By: #### C BC ####[facility] [address]ifnb[address]zaj[address] [place] [id number]. Cortez Younger MANUAL DIFF REQ NO Normal [facility] Comment on above: Performed By: #### C BC ####[facility] Gy[address]stoc[address] [place] [id number]. Eleanorvalerie Younger MCH (RBC) [Entitic mass] 31.4 pg Normal 25.9-34.0 [facility] Comment on above: Performed By: #### C BC ####[facility] [address]cludp[address] [place], [place] [address]Dr. Cortez Younger MCHC (RBC) [Mass/Vol] 35.9 g/dL Critically high 29.9-35.2 [facility] Comment on above: Performed By: #### C BC ####[facility] [address]qzhbuma[address] [place] [address]Dr. Eleanorvalerie Younger MCV (RBC) [Entitic vol] 87.4 fL Normal 80.0-94.0 [facility] Comment on above: Performed By: #### C BC ####[facility] Rw[address]xs[address] [place], [place] [address]Dr. Cortez Younger MONO # 0.4 103/ul Normal 0.3-0.8 [facility] Comment on above: Performed By: #### C BC ####[facility] [address]oyo[address] [place], [place] [address]Dr. Cortez Younger Monocytes/100 WBC (Bld) 3.6 % Normal 1.7-12.0 [facility] Comment on above: Performed By: #### C BC ####[facility] [address] [place], [place] [id number]. Cortez Younger NEUT # 7.9 103/ul Critically high 1.4-6.5 [facility] Comment on above: Performed By: #### C BC ####[facility] Dfalnqjurg[address] [place] [id number]. Cortez Younger Neutrophils/100 WBC (Bld) 81.3 % Critically high 43.0-75.0 [facility] Comment on above: Performed By: #### C BC ####[facility] Ulprtiflsi[address] [place] [phone]. Cortez Younger Platelet mean volume (Bld) [Entitic vol] 8.8 fL Critically low 9.5-13.5 [facility] Comment on above: Performed By: #### C BC ####[facility] [address]imfdfollg[address] [place] [phone]. Cortez Younger PLT 371 103/ul Normal 150-450 [facility] Comment on above: Performed By: #### C BC ####[facility] Xyfjpiyomq14[address] [place] [phone]. Cortez Younger RBC 4.91 106/ul Normal 4.70-6.10 [facility] Comment on above: Performed By: #### C BC ####[facility] Qrjycpeeky38[address] [place] [id number]. Cortez Younger WBC 9.8 103/ul Normal 4.0-11.0 [facility] Comment on above: Performed By: #### C BC ####[facility] Yav[address]xwjl[address] [place] [phone]. Cortez Younger CRPon 10-07-2022 CRP [Mass/Vol] mg/L Normal <=1.[address] [facility] Comment on above: Performed By: #### L IPA, TSH, CRP, CMP ####[facility] T[address] [place] [id number] Younger ER URINE PROFILEon 3 Bilirubin Ql (U) Negative Normal NEGATIVE [facility] Comment on above: Performed By: #### E RUR #### [facility] [address] [place], [place] [address] Dr. Cortez Younger Clarity (U) CLEAR Normal CLEAR [facility] Comment on above: Performed By: #### E RUR #### [facility] [address] [place] [address] [address] Cortez Younger Color (U) LT. YELLOW Normal YELLOW [facility] Comment on above: Performed By: #### E RUR #### [facility] [address] [place] [address] Dr. Cortez Younger ERUAHKuldeep A micrscopic examina tion will be performed if indicated. Normal [facility] Comment on above: Performed By: #### E RUR #### [facility] [address] [place] [address] Dr. Cortez Younger Glucose Ql (U) Negative Normal NEGATIVE [facility] Comment on above: Performed By: #### E RUR #### [facility] [address] [place] [address] Dr. Cortez Younger Hemoglobin Ql (U) Negative Normal NEGATIVE [facility] Comment on above: Performed By: #### E RUR #### [facility] [address] [place] [address] Dr. Cortez Younger Ketones Ql (U) Negative Normal NEGATIVE [facility] Comment on above: Performed By: #### E RUR #### [facility] [address] [place] [address] Dr. Cortez Younger LEUKOCYTES Negative Normal NEGATIVE [facility] Comment on above: Performed By: #### E RUR #### [facility] [address] [place] [address] Dr. Cortez Younger Nitrite Ql (U) Negative Normal NEGATIVE [facility] Comment on above: Performed By: #### E RUR #### [facility] [address] [place] [address] Dr. Cortez Younger pH (U) 7.5 [pH] Normal 5-9 [facility] Comment on above: Performed By: #### E RUR #### [facility] [address] [place] [address] Dr. Cortez Younger SPEC GRAVITY <=1.005 Abnormal 1.005-<=1.025 [facility] Comment on above: Performed By: #### E RUR #### [facility] [address] [place] [address] [address] Cortez Younger UA PROTEIN Negative Normal NEGATIVE/ TRACE [facility] Comment on above: Performed By: #### E RUR #### [facility] [address] [place] [address] [address] Cortez Younger UR MICRO IND NOT INDICATED Normal [facility] Comment on above: Performed By: #### E RUR #### [facility] [address] [place] [address] [address] Cortez Younger Urobilinogen Qn (U) 0.2 {Fidelia'U}/dL Normal 0.2 - 1. 0 [facility] Comment on above: Performed By: #### E RUR #### [facility] [address] [place] [address] Dr. Cortez Younger LACTATE/LACTIC ACIDon 2022 Lactate [Moles/Vol] 1.0 mmol/L Normal 0.4-2.0 [facility] Comment on above: Performed By: #### E RUR #### [facility] [address] [place] [address] [address] Cortez Younger LIPASEon 10-07-2022 Lipase [Catalytic activity/Vol] 84.0 U/L Normal 73.0-393.0 [facility] Comment on above: Performed By: #### L IPA, TSH, CRP, CMP ####[facility] [address] [place] [address]DrFish Younger PROF 14(COMP METB)on 023 Albumin [Mass/Vol] 3.9 g/dL Normal 3.4-5.0 [facility] [facility] Comment on above: Performed By: #### L IPA, TSH, CRP, CMP ####[facility] [address] [place] [address]Dr. Cortez Younger Albumin/Globulin [Mass ratio] 1.7 {ratio} Normal [facility] Comment on above: Performed By: #### L IPA, TSH, CRP, CMP ####[facility] [address] [place] [address] [address]Dr. Cortez Younger ALP [Catalytic activity/Vol] 78 U/L Normal 46-116 [facility] Comment on above: Performed By: #### L IPA, TSH, CRP, CMP ####[facility] [address] [place] [address]Dr. Cortez Younger ALT [Catalytic activity/Vol] 28 U/L Normal 16-63 [facility] Comment on above: Performed By: #### L IPA, TSH, CRP, CMP ####[facility] [address] [place] [address]Dr. Cortez Younger Anion gap [Moles/Vol] 12.1 mmol/L Normal [facility] Comment on above: Performed By: #### L IPA, TSH, CRP, CMP ####[facility] [address] [place], [place] [address]Dr. Cortez Younger AST [Catalytic activity/Vol] 15 U/L Normal 15-37 [facility] Comment on above: Performed By: #### L IPA, TSH, CRP, CMP ####[facility] [address] [place], [place] [address]Dr. Cortez Younger Bilirubin [Mass/Vol] 0.5 mg/dL Normal 0.2-1.0 [facility] Comment on above: Performed By: #### L IPA, TSH, CRP, CMP ####[facility] [address] [place] [address]Dr. Cortez Younger Calcium [Mass/Vol] 8.6 mg/dL Normal 8.5-10.1 [facility] Comment on above: Performed By: #### L IPA, TSH, CRP, CMP ####[facility] [address] [place] [address]Dr. Cortez Younger Chloride [Moles/Vol] 100 mmol/L Normal 98-107 [facility] Comment on above: Performed By: #### L IPA, TSH, CRP, CMP ####[facility] [address] [place] [address]Dr. Cortez Younger CO2 [Moles/Vol] 28.8 mmol/L Normal 21.0-32.0 [facility] Comment on above: Performed By: #### L IPA, TSH, CRP, CMP ####[facility] [address] [place] [address]Dr. Cortez Younger Creatinine [Mass/Vol] 0.70 mg/dL Normal 0.70-1.30 [facility] Comment on above: Performed By: #### L IPA, TSH, CRP, CMP ####[facility] [address] [place], [place] [address]Dr. Cortez Younger EGFR-AF IRISH >60 Normal >=60 [facility] Comment on above: Performed By: #### L IPA, TSH, CRP, CMP ####[facility] [address] [place], [place] [address]Dr. Cortez Aren EGFR-NON AF IRISH >60 Normal >=60 [facility] Comment on above: Performed By: #### L IPA, TSH, CRP, CMP ####[facility] N[address] [place], [place] [address]Dr. Cortez Younger Globulin (S) [Mass/Vol] 2.3 g/dL Normal [facility] Comment on above: Performed By: #### L IPA, TSH, CRP, CMP ####[facility] [address] [place], [place] [address]Dr. Cortez Aren Glucose [Mass/Vol] 111 mg/dL Critically high 74-106 [facility] Comment on above: Performed By: #### L IPA, TSH, CRP, CMP ####[facility] [address] [place], [place] [address]Dr. Cortez Younger Potassium [Moles/Vol] 3.9 mmol/L Normal 3.5-5.1 [facility] Comment on above: Performed By: #### L IPA, TSH, CRP, CMP ####[facility] [address] [place], [place] [address]Dr. Cortez Younger Protein [Mass/Vol] 6.2 g/dL Critically low 6.4-8.2 [facility] Comment on above: Performed By: #### L IPA, TSH, CRP, CMP ####[facility] [address] [place], [place] [address]Dr. Cortez Younger Sodium [Moles/Vol] 137 mmol/L Normal 136-[address] [facility] Comment on above: Performed By: #### L IPA, TSH, CRP, CMP ####[facility] [address] [place] [id number]. Cortez Younger Urea nitrogen [Mass/Vol] 6.0 mg/dL Critically low 7.0-18.0 [facility] Comment on above: Performed By: #### L IPA, TSH, CRP, CMP ####[facility] [address] [place] [id number]. Cortez Younger Urea nitrogen/Creatinine [Mass ratio] 8.6 mg/mg Normal [facility] Comment on above: Performed By: #### L IPA, TSH, CRP, CMP ####[facility] [address] [place] [id number]. Cortez Younger SED RATE [facility] 2022 SED RATE <1 Normal <=20 [facility] Comment on above: Performed By: #### C BC #### [facility] [address] [address] [address] Cortez Younegr TSHon 10-07-2022 TSH 1.031 uIU/mL Normal 0.358-3.740 [facility] Comment on above: Performed By: #### L IPA, TSH, CRP, CMP ####[facility] [address] [place] [address]Dr. Cortez Younger [facility]-19 PCR ([facility]on 05-13 SARS-CoV-2 (COVID-19) RNA AXEL+probe Ql (Unsp spec) Not detected Normal NOT DETECTED [facility] Comment on above: Result Comment: When diagnostic [...] for this test is supported by the Strategic Debriefing Specialist of Health and Human Service's declaration [...] used). Performed By: #### C BC #### [facility] [address] [place] [address] Dr. Cortez Younger INFLUENZA A AND B [facility] 05-28 INFLUANEGH SEE BELOW Normal [facility] Comment on above: Result Comment: Nega tive for Flu A protein angiten. Infection due to Flu A cannot be ruled out. Flu A angiten in the sample may be below the detection limit of the test. Performed By: #### E RUR #### [facility] [address] [place] [address] Dr. Cortez Younger INFLUBNEGH SEE BELOW Normal [facility] Comment on above: Result Comment: Nega tive for Flu B protein antigen. Infection due to Flu B cannot be ruled out. Flu B antigen in the sample may be below the detection limit of the test. Performed By: #### E RUR #### [facility] [address] [place] [address] Dr. Cortez Younger INFLUENZA A AG Negative Normal NEGATIVE SEE COMMENT [facility] Comment on above: Performed By: #### E RUR #### [facility] [address] [place] [address] Dr. Cortez Younger INFLUENZA B AG Negative Normal NEGATIVE SEE COMMENT [facility] Comment on above: Performed By: #### E RUR #### [facility] [address] [place] [address] Dr. Cortez Younger INTERNAL CONTROLS Within Normal Limits Normal Wi thin Normal Limits [facility] Comment on above: Performed By: #### E RUR #### [facility] [address] [place] [address] Dr. Cortez Younger XR CHEST 1 Von [...] KAIA SHEIKH Date: 2022-05-28 13:36 Normal [facility] PROF 14(COMP METB)on 022 Albumin [Mass/Vol] 3.9 g/dL Normal 3.4-5.0 [facility] Comment on above: Performed By: #### C MP #### [facility] [address] [place] [address] Dr. Cortez Younger Albumin/Globulin [Mass ratio] 1.4 {ratio} Normal [facility] Comment on above: Performed By: #### C MP #### [facility] [address] [place] [address] Dr. Cortez Younger ALP [Catalytic activity/Vol] 81 U/L Normal 46-116 [facility] Comment on above: Performed By: #### C MP #### [facility] [address] [place] [address] Dr. Cortez Younger ALT [Catalytic activity/Vol] 19 U/L Normal 16-63 [facility] Comment on above: Performed By: #### C MP #### [facility] [address] [place] [address] Dr. Cortez Younger Anion gap [Moles/Vol] 12.3 mmol/L Normal [facility] Comment on above: Performed By: #### C MP #### [facility] [address] [place] [address] Dr. Cortez Younger AST [Catalytic activity/Vol] 15 U/L Normal 15-37 [facility] Comment on above: Performed By: #### C MP #### [facility] [address] [place] [address] Dr. Cortez Younger Bilirubin [Mass/Vol] 0.3 mg/dL Normal 0.2-1.0 [facility] Comment on above: Performed By: #### C MP #### [facility] [address] [address] [address] Cortez Younger Calcium [Mass/Vol] 8.6 mg/dL Normal 8.5-10.[address] [facility] Comment on above: Performed By: #### C MP #### [facility] [address] [address] [address] Cortez Younger Chloride [Moles/Vol] 101 mmol/L Normal 98-107 [facility] Comment on above: Performed By: #### C MP #### [facility] [address] [address] [address] Cortez Younger CO2 [Moles/Vol] 30.6 mmol/L Normal 21.0-32.0 [facility] Comment on above: Performed By: #### C MP #### [facility] [address] [place] [address] Dr. Cortez Younger Creatinine [Mass/Vol] 0.75 mg/dL Normal 0.70-1.30 [facility] Comment on above: Performed By: #### C MP #### [facility] [address] [place] [address] Dr. Cortez Younger EGFR-AF IRISH >60 Normal >=60 [facility] Comment on above: Performed By: #### C MP #### [facility] [address] [place] [address] Dr. Cortez Younger EGFR-NON AF IRISH >60 Normal >=60 [facility] Comment on above: Performed By: #### C MP #### [facility] [address] [place] [address] Dr. Cortez Younger Globulin (S) [Mass/Vol] 2.8 g/dL Normal [facility] Comment on above: Performed By: #### C MP #### [facility] [address] [place] [address] Dr. Cortez Younger Glucose [Mass/Vol] 98 mg/dL Normal 74-[address] [facility] Comment on above: Performed By: #### C MP #### [facility] [address] [place] [address] Dr. Cortez Younger Potassium [Moles/Vol] 3.9 mmol/L Normal 3.5-5.1 [facility] Comment on above: Performed By: #### C MP #### [facility] [address] [place] [address] Dr. Cortez Younger Protein [Mass/Vol] 6.7 g/dL Normal 6.4-8.2 [facility] Comment on above: Performed By: #### C MP #### [facility] [address] [address] [address] Cortez Younger Sodium [Moles/Vol] 140 mmol/L Normal 136-[address] [facility] Comment on above: Performed By: #### C MP #### [facility] [address] [place] [address] Dr. Cortez Younger Urea nitrogen [Mass/Vol] 5.0 mg/dL Critically low 7.0-18.0 [facility] Comment on above: Performed By: #### C MP #### [facility] [address] [place] [address] Dr. Cortez Younger Urea nitrogen/Creatinine [Mass ratio] 6.7 mg/mg Normal [facility] Comment on above: Performed By: #### C MP #### [facility] [address] [place] [address] Dr. Cortez Younger CBC AUTO DIFFon 01-18-2022 BASO # 0.0 103/ul Normal 0.0-0.1 [facility] Comment on above: Performed By: #### C BC #### [facility] [address] [place] [address] Dr. Cortez Younger Basophils/100 WBC (Bld) 0.1 % Critically low 0.2-2.0 [facility] Comment on above: Performed By: #### C BC #### [facility] [address] [place] [address] Dr. Cortez Younger EO # 0.0 103/ul Normal 0.0-0.7 [facility] Comment on above: Performed By: #### C BC #### [facility] [address] [place] [address] Dr. Cortez Younger Eosinophils/100 WBC (Bld) 0.0 % Critically low 0.9-7.0 [facility] Comment on above: Performed By: #### C BC #### [facility] [address] [place] [address] Dr. Cortez Younger Erythrocyte distribution width (RBC) [Ratio] 12.8 % Normal 11.0-15.0 [facility] Comment on above: Performed By: #### C BC #### [facility] [address] [place] [address] Dr. Cortez Younger Hematocrit (Bld) [Volume fraction] 42.7 % Normal 42.0-54.0 [facility] Comment on above: Performed By: #### C BC #### [facility] [address] [place] [address] Dr. Cortez Younger Hemoglobin (Bld) [Mass/Vol] 15.3 g/dL Normal 14.0-18.0 [facility] Comment on above: Performed By: #### C BC #### [facility] [address] [place] [address] Dr. Cortez Younger IG # 0.10 10e3/ul Critically high 0.00-0.03 [facility] Comment on above: Performed By: #### C BC #### [facility] [address] [place] [address] Dr. Cortez Younger IG % 0.7 % Critically high 0.0-0.5 [facility] Comment on above: Performed By: #### C BC #### [facility] [address] [place] [address] Dr. Cortez Younger LYMPH # 1.9 103/ul Normal 1.2-3.8 [facility] Comment on above: Performed By: #### C BC #### [facility] [address] [place] [address] Dr. Cortez Younger Lymphocytes/100 WBC (Bld) 13.5 % Critically low 20.5-60.0 [facility] Comment on above: Performed By: #### C BC #### [facility] [address] [place] [address] Dr. Cortez Younger MANUAL DIFF REQ NO Normal [facility] Comment on above: Performed By: #### C BC #### [facility] [address] [place] [address] Dr. Cortez Younger MCH (RBC) [Entitic mass] 31.4 pg Normal 25.9-34.0 [facility] Comment on above: Performed By: #### C BC #### [facility] [address] [place] [address] Dr. Cortez Younger MCHC (RBC) [Mass/Vol] 35.8 g/dL Critically high 29.9-35.2 [facility] Comment on above: Performed By: #### C BC #### [facility] [address] [place] [address] Dr. Crotez Younger MCV (RBC) [Entitic vol] 87.5 fL Normal 80.0-94.0 [facility] Comment on above: Performed By: #### C BC #### [facility] [address] [place] [address] Dr. Cortez Younger MONO # 0.8 103/ul Normal 0.3-0.8 [facility] Comment on above: Performed By: #### C BC #### [facility] [address] [place] [address] Dr. Cortez Younger Monocytes/100 WBC (Bld) 5.6 % Normal 1.7-12.0 [facility] Comment on above: Performed By: #### C BC #### [facility] [address] [place] [address] Dr. Cortez Younger NEUT # 11.4 103/ul Critically high 1.4-6.5 [facility] Comment on above: Performed By: #### C BC #### [facility] [address] [place] [address] Dr. Cortez Younger Neutrophils/100 WBC (Bld) 80.1 % Critically high 43.0-75.0 [facility] Comment on above: Performed By: #### C BC #### [facility] [address] [place] [address] Dr. Cortez Younger Platelet mean volume (Bld) [Entitic vol] 8.4 fL Critically low 9.5-13.5 [facility] Comment on above: Performed By: #### C BC #### [facility] [address] [place] [address] Dr. Cortez Younger PLT 352 103/ul Normal 150-450 [facility] Comment on above: Performed By: #### C BC #### [facility] [address] [place] [address] Dr. Cortez Younger RBC 4.88 106/ul Normal 4.70-6.10 [facility] Comment on above: Performed By: #### C BC #### [facility] [address] [place] [address] Dr. Cortez Younger WBC 14.2 103/ul Critically high 4.0-11.0 [facility] Comment on above: Performed By: #### C BC #### [facility] [address] [place] [address] Dr. Cortez Younger PROF 14(COMP METB)on 022 Albumin [Mass/Vol] 4.1 g/dL Normal 3.4-5.0 [facility] Comment on above: Performed By: #### C MP #### [facility] [address] [place] [address] Dr. Cortez Younger Albumin/Globulin [Mass ratio] 1.5 {ratio} Normal [facility] Comment on above: Performed By: #### C MP #### [facility] [address] [place] [address] Dr. Cortez Younger ALP [Catalytic activity/Vol] 77 U/L Normal 46-116 [facility] Comment on above: Performed By: #### C MP #### [facility] [address] [place] [address] Dr. Cortez Younger ALT [Catalytic activity/Vol] 19 U/L Normal 16-63 [facility] Comment on above: Performed By: #### C MP #### [facility] [address] [place] [address] Dr. Cortez Younger Anion gap [Moles/Vol] 10.6 mmol/L Normal [facility] Comment on above: Performed By: #### C MP #### [facility] [address] [address] [address] Cortez Younger AST [Catalytic activity/Vol] 8 U/L Critically low 15-37 [facility] Comment on above: Performed By: #### C MP #### [facility] [address] [address] [address] Cortez Younger Bilirubin [Mass/Vol] 0.3 mg/dL Normal 0.2-1.0 [facility] Comment on above: Performed By: #### C MP #### [facility] [address] [address] [address] Cortez Younger Calcium [Mass/Vol] 8.9 mg/dL Normal 8.5-10.1 [facility] Comment on above: Performed By: #### C MP #### [facility] [address] [address] [address] Cortez Younger Chloride [Moles/Vol] 91 mmol/L Critically low 98-107 [facility] Comment on above: Performed By: #### C MP #### [facility] [address] [address] [address] Cortez Younger CO2 [Moles/Vol] 30.1 mmol/L Normal 21.0-32.0 [facility] Comment on above: Performed By: #### C MP #### [facility] [address] [address] [address] Cortez Younger Creatinine [Mass/Vol] 0.88 mg/dL Normal 0.70-1.30 [facility] Comment on above: Performed By: #### C MP #### [facility] [address] [address] [address] Cortez Younger EGFR-AF IRISH >60 Normal >=60 [facility] Comment on above: Performed By: #### C MP #### [facility] [address] [address] [address] Cortez Younger EGFR-NON AF IRISH >60 Normal >=60 [facility] Comment on above: Performed By: #### C MP #### [facility] [address] [address] [address] Cortez Younger Globulin (S) [Mass/Vol] 2.8 g/dL Normal [facility] Comment on above: Performed By: #### C MP #### [facility] [address] [address] [address] Cortez Younger Glucose [Mass/Vol] 112 mg/dL Critically high 74-106 [facility] Comment on above: Performed By: #### C MP #### [facility] [address] [address] [address] Cortez Younger Potassium [Moles/Vol] 3.7 mmol/L Normal 3.5-5.1 [facility] Comment on above: Performed By: #### C MP #### [facility] [address] [address] [address] Cortez Younger Protein [Mass/Vol] 6.9 g/dL Normal 6.4-8.2 [facility] Comment on above: Performed By: #### C MP #### [facility] [address] [address] [address] Cortez Younger Sodium [Moles/Vol] 128 mmol/L Critically low 136-145 [facility] Comment on above: Performed By: #### C MP #### [facility] [address] [address] [address] Cortez Younger Urea nitrogen [Mass/Vol] 9.0 mg/dL Normal 7.0-18.0 [facility] Comment on above: Performed By: #### C MP #### [facility] [address] [address] [address] Cortez Younger Urea nitrogen/Creatinine [Mass ratio] 10.2 mg/mg Normal [facility] Comment on above: Performed By: #### C MP #### [facility] [address] [address] [address] Cortez Younger SED RATE [facility] 2021 SED RATE <1 Normal <=20 [facility] Comment on above: Performed By: #### S EDR ####[facility] [address] [address]Dr. Cortez Younger UA RANDOMon 01-18-2022 Bilirubin Ql (U) Negative Normal NEGATIVE [facility] Comment on above: Performed By: #### E RUR #### [facility] [address] [place] [address] Dr. Cortez Younger Clarity (U) CLEAR Normal CLEAR [facility] Comment on above: Performed By: #### E RUR #### [facility] [address] [place] [address] Dr. Cortez Younger Color (U) LT. YELLOW Normal YELLOW [facility] Comment on above: Performed By: #### E RUR #### [facility] [address] [place] [address] Dr. Cortez Younger Glucose Ql (U) Negative Normal NEGATIVE [facility] Comment on above: Performed By: #### E RUR #### [facility] [address] [place] [address] Dr. Cortez Younger Hemoglobin Ql (U) TRACE-LYSED Abnormal NEGATIVE [facility] Comment on above: Performed By: #### E RUR #### [facility] [address] [place] [address] Dr. Cortez Younger Ketones Ql (U) Negative Normal NEGATIVE [facility] Comment on above: Performed By: #### E RUR #### [facility] [address] [place] [address] Dr. Cortez Younger LEUKOCYTES TRACE Abnormal NEGATIVE [facility] Comment on above: Performed By: #### E RUR #### [facility] [address] [place] [address] Dr. Cortez Younger Nitrite Ql (U) Negative Normal NEGATIVE [facility] Comment on above: Performed By: #### E RUR #### [facility] [address] [place] [address] Dr. Cortez Younger pH (U) 6.5 [pH] Normal 5-9 [facility] Comment on above: Performed By: #### E RUR #### [facility] [address] [place] [address] Dr. Cortez Younger SPEC GRAVITY <=1.005 Abnormal 1.005-<=1.025 [facility] Comment on above: Performed By: #### E RUR #### [facility] [address] [address] [address] Cortez Younger UA PROTEIN Negative Normal NEGATIVE/ TRACE [facility] Comment on above: Performed By: #### E RUR #### [facility] [address] [id number] Cortez Younger Urobilinogen Qn (U) 0.2 {Fidelia'U}/dL Normal 0.2 - 1. 0 [facility] Comment on above: Performed By: #### E RUR #### [facility] [address] [place], [place] [id number] Dr. Cortez Younger MRI CSPINE WO W [...] VERN LU Date: 2022-01-17 16:24 Normal [facility] MRI TSPINE WO W CONon 2021 MRI [...] by: VERN LU Date: 2022-01-17 16:29 Normal [facility] MRI BRAIN WO W CONon 022 MRI [...] by: VERN LU Date: 2022-01-03 08:03 Normal [facility] Patient Educationon 12-25-19 22 Patient Education Oncology Prostate-Specific Antigen Test Why [...] including vitamins, herbs, eye drops, creams, and kpfz-eae-ahsgtre medicines. This also includes: ? Medicines to [...] 08/01/2005 Document Revised: 06/11/2018 Document Reviewed: 04/05/2018 [email or web address] Patient Education ? 2019 [employer]. [facility] Urology Office/Clinic Noteon 12-24-2021 Urology Office/Clinic [...] Urnls Dip Stick Auto w/o Microscopy POC 67345 3. Elevated PSA (R97.20: Elevated prostate specific antigen [PSA]) Most recent PSA done 08/13/21 5.24 Ordered: Urnls Dip Stick Auto w/o Microscopy POC 48499 Other obstructive and reflux uropathy (N13.8: Other obstructive and reflux uropathy) Follow-up With When Contact Information Star Manley MD, Gustavo Orlando, URO In 6 months [facility] [address], [place] [phone]- Additional Instructions: w/ PVR Patient Education Prostate-Specific Antigen Test Lynda Finley, personally scribed for Dr. Graves on 12/24/2021 10:47:38. . Documentation recorded by the scribeLynda, accurately reflects the services(s) I performed and [...] tab(s), Or (more content not included)... Normal [facility] Comment on above: Result Comment: Elec tronically Signed By: Star Manley MD, Gustavo Orlando\.br\Date and Time Signed: 12/24/21 10:52 EDT\.br\Electronically Co-Signed By: Lynda Ortega\.br\Date and Time Co-Signed: 12/24/21 10:47 EDT Lab Reportson 12-16-2021 Lab Reports .. [id number]: 127 [facility] Lab Reports [id number]#[id number]: 127 Normal [facility] CULTURE URINEon 12-12-2021 CULTURE URINE Culture Observations : No growth Normal [facility] Comment on above: Performed By: #### U RCX ####[facility] [address] [place] [address]Dr. Cortez Younger UA RANDOMon 12-12-2021 Bilirubin Ql (U) Negative Normal NEGATIVE [facility] Comment on above: Performed By: #### U A #### [facility] [address] [address] [address] Cortez Younger Clarity (U) CLEAR Normal CLEAR [facility] Comment on above: Performed By: #### U A #### [facility] [address] [address] [address] Cortez Younger Color (U) LT. YELLOW Normal YELLOW [facility] Comment on above: Performed By: #### U A #### [facility] [address] [place] [address] Dr. Cortez Younger Glucose Ql (U) Negative Normal NEGATIVE [facility] Comment on above: Performed By: #### U A #### [facility] [address] [address] [address] Cortez Younger Hemoglobin Ql (U) LARGE Abnormal NEGATIVE [facility] Comment on above: Performed By: #### U A #### [facility] [address] [place] [address] Dr. Cortez Younger Ketones Ql (U) Negative Normal NEGATIVE [facility] Comment on above: Performed By: #### U A #### [facility] [address] [address] [address] Cortez Younger LEUKOCYTES Negative Normal NEGATIVE [facility] Comment on above: Performed By: #### U A #### [facility] [address] [address] [address] Cortez Younger Nitrite Ql (U) Negative Normal NEGATIVE [facility] Comment on above: Performed By: #### U A #### [facility] [address] [address] [address] Cortez Younger pH (U) 7.0 [pH] Normal 5-9 [facility] Comment on above: Performed By: #### U A #### [facility] [address] [address] [address] Cortez Younger SPEC GRAVITY 1.010 Normal 1.005-<=1.025 [facility] Comment on above: Performed By: #### U A #### [facility] [address] [address] [address] Cortez Younger UA PROTEIN Negative Normal NEGATIVE/ TRACE [facility] Comment on above: Performed By: #### U A #### [facility] [address] [address] [address] Cortez Younger Urobilinogen Qn (U) 0.2 {Fidelia'U}/dL Normal 0.2 - 1. 0 [facility] Comment on above: Performed By: #### U A #### [facility] [address] [address] [address] Cortez Younger Coding Summary.on 12-06-2021 Coding Summary. CD:[id number] Gh0b Ww+PGhlYWQ+LQ6URWSnQ47vt VFqoY7OS3yBJB5XGYBPFUYDB Y6TXP3qvDR3SRwiI3EpbuEc VqdqeWFcKP52SWh3KYB6uAik LOrnrX8tfZHoH3s1HjNnIA87 gR71IHdgVLEzMoG5KbUcazrc bWFy S9jzSdTyeXSfAto+PHRhYmxl IHdpZHRoPScxMDAlJyBzdHls CS4dUs1uEMLqIZVpcShhvTAy OiBj v0niKGCpLJjgDX2bkCueX0Jn aKE0VTKbr8u7On60xJU+PHRk XRO6lQtuYWdzx877StDsb7tb IDM3 wZFjFXivTMQ7S02ek6A4RKVc UIWdXBL2pMC4yZ4qnEjccgdf A3UsuLZdUkA3PIB8mTRqoM7n bGln qpfcdG7pJhf+G09SLS2OUMGB DK2HGov9D4MwKyswfTC+PC90 VZKaMK23oWLkyGDtn8dyfRh4 JzEw XJGzPTN3wTeyQGumj2XnYWSe D21clHCqn2R1YCNxbTmhtMUz UiKauCV7tM7gEYlqqcrds9hg dzsn Niipy9suzt74bJ89U14nFLud DRRvXYY9FISpXOBwpBjnpa6a bF8yAj4+GGmnk9abh6mhdMv4 IjIw UPMhviKpnAleRQX6v1QyJk28 Q6QqsBvpd4TyIta0tv31aRZk x4T0dMM4JNahSZFkaV8nLLtj ZnQ6 DAXyPiTzaV57fEXcBXkkTq4q nDofkWbuGI0dNEHgewnfHQEo aI6tZYJibFGalEgcFC2uRLHi bjtm i048IjBhQOR6ROEqaXVfH1Ur kQ5lOrUaRJIcPSDsO6FhlUCz SMdvS429PEfpLiU4IKJxoaNh Y2Fs YERqbAkgPbV0u3L1Sm7El1Ve qcjfFUX6IWlsENI4QhN0VfLv YcU1E6PpZli2ASCooLohGT6k J3Bh PUUfyruyenlblEZ6GIWrSRHg wW82jXDeRXnbUy3xk0M0j753 QZPcJZLkhT66Gp2rfCvhLFOo dCBU yD9bizdqr2anmjflDzTwECTf GHc1VPw6YJHhkYevXiXeBWX6 MzN1SQQ2nPWsaM6auQljkfua dG9w Oyc+V07wmL6lSMK5WUW3esis VMXoafHrSJ78XH11A0HsBtii dGFibGU+ITNnoxYrkFikNA0h YmFj g1pkn3CgOVmjC4CeNJCfAHgy Vsl6TBDsHNL8zBW6nI9lOICn PXfxd0C9nXZ6W6KrtdJsbv9d b2xs MQFnTKrdD93zmZEdp5K1SOGt vJB5YXRpsImxRrHgoW87Out+ LVGrjKpbb4YsHpbvr9nop7bh dGg9 NfQkNBUpgkMjtAifARG2f1Ln Eu90O59iGKvaBECjSKHiYPNk OSPvqVuxqu8ooY4uZb5+PGNv bCB3 sXQ5gC8oSFZoLnJ2FBmgE670 QiFnuEAxNflnj3djn7kljUy3 NtXxBLPmdhWvuThrTTV7o5Qj Lz48 N24tCQikGFJdHLGbTSIuKNGx pZscyv4zlK8lJj1+VT0dx5cn re24wQ14rAF+FBBqIJF2iPrt PSdw HQZouA7rGQaqXjW7EINsFiIa aW66yMZsRGjtAc9lnXodwFjx XB0mADPbqluxj150DlJjx9uk IDEw kXZuHJcjZLQ5J63lv4F8QVBv YGAqSTB1mYO9uS2jxVcvpstj bGVmdDsgdmVydGljYWwtYWxp Z246 IHRvcDsnPlBhdGllbnQgTmFt IDq8U9LaJzm1HFVluFmrNB6h nAJsYDocRg8msFozwMnhFM1v NTBp brhdj711RhIvx7inQKSebVGc LFzfHHH2F93hj5T2CPEsCASv ROG3zWW7tM3nmMtmdywrhLSi dDsg ctLojNtiNYadGRviZ931VVMy wCueMiQmjrMaLEOwrHX3GX77 DG98aMByw5C1mNU3D5NlKCRf bmct sesoqJC0QUDiZGOymG46Wg2u vLpeXa2tIPNtEQC6NUHaaRBd X4RldT1sRpWnAIKrOEXbV3Jj eHQt VUitE791OHueClV8QTFiapUk V4KkETAyjQlgTzN2y2O9Mw4G J3N4SU67OK58tITrf5W8dUU3 J3Bh KOWriwkmrxnjgSU4UVOqIJRi iT52Gh3htAywNk0nARCqOWJ5 WQSsuCSiV4LvmI5oXcNfTDLs MDAw U0TayBYrSZujX608NDljKaZ7 ICVprmQvD3ZlGALylWpiGuE8 k1C0Aw6XLPy4VE44BA95jMMe c3R5 qFE2L9HwNCSufixjumbdnQN0 FZIuYSPwnB95Oz9zcIrwPo1l GRPmLOH7MDJzsJNvS7FbsR2l OiAj LQNrMOYeI8DeoKIdSRpzA144 KTidTbM4WVAnsiNrJ5ZjYGNt sAaxTiP8l4U7Ns7YUTCcTZ42 IFR5 oRJ1DS46EP55K9CiToetdTYb bGU+PHRhYmxlIHdpZHRoPScx NDAaFlCfuYviDL6sIf0eCPZq LWNv vIjakXCnNyGaa3sbZQIrCQwm PN9mpOnmK3TepPF1YDVuo9s5 Gi92W63bA8QcxET+PGNvbCB3 aWR0 nB7wSnQmGaP5OSpdP962XiJy tDQhPeajn1yxh1okaWx9UxZ1 PYKrigEnjRhlUSU2x1YgNf62 Y29s IHdpZHRoPSIxNSUiIHZhbGln kl5gwZ1uMn8+EWJjdEW9xBX7 dN9pZhDoAbF7AEblQ043MlBw cCIv Hwsvu7vwn9uarBn7CyPjIGDn irDsaFybFWP4y1CfGa60K6Oy nAkbq6LbMxv6zg92eISgo4Z7 bGU9 M5NfOONjxvlsuWEtqKkyNT5y XNMaqjouPYMkeS2pSGMnB3v1 FsUpKbK7FNmdV6KyrfM8CJSa cHQg QTfeRAM7L57oc0S0HYNbUPLs TNY6aEU8jJ2edBamkddufFLb oUtujsYkpMekZMxgFWvwL669 IHRv sVyfCIPlfD0jNHBiwNQisVvq AQ2dUXEfdnyqXfTOLgFZF9cA XHhtJ2FPHF0vKYebcMD+PHRk IHN0 hSzuSVdoSVDmeF3dPCLaV5n2 GbZeMfX5EYfqO5WtRJHtujbm Es69nV2cTiGaSrO8GJjhX3Rp bnQ6 YRPfcUZqICafIGL7U45vk6R5 DNDvVSRkLZW2aSF5cW7qoEzh bjogbGVmdDsgdmVydGljYWwt YWxp F130ACGemZrfJcH0RpBaIwU6 Zox5X3VnInp3KXVzlHujSB4f jAVcQGxrAs2fkXmyzTxrHH6g NTBp pagnXEYvqI2dNJLzqXPmoNxm XD4uWJJtkddqy681EpGsXRJ5 NPLgpKXuB2LvqJ5iLzTxWCIj MDAw T3BblEKdKOcqH235OHsqZzG8 NPOcsyXmF9NsNBSpfHapQmT0 u1Q2We01EbGFETBedjfsnEG+ PHRk BIB8wCklKBhsUGUywF9rBYZw I9y1NtUjYyV8FUjaE0IbVTLd mnjqYs45gD2yYgJeIpS4QYxv O2Zv qrA8GXLfgKUxKWoxFRX7Z90w l4G6JBJuKCRxEXJ1aRU5rW9h bGlnbjogbGVmdDsgdmVydGlj YWwt QVneA379FTSyxNrxEz9dtOB3 N5YcBqr2KSYnjBgtJX1zgCWf MQmbAl6ygTaiwDlyIX5mLSGw bjtw SIZekB7yODWbqSDppSnpZT1y WBUowrimj291JcPbWVI4PVSh fWUhB5JqbM1cGuGoEBNvPGVx O3Rl nDIxSUqwL370WTqbJzT0RZTa xuNoA5OiMVRndZjcZuX0a8I9 Un7DiODwXGUrZZ57JS19DH94 L3Ry PjwvdGFibGU+PHRhYmxlIHdp QNBsXUqqLZIjTmEalNkdSL5b Ms8tIRQdAFOvbTxktHJgFgAc b2xs GMUxUJvkDN5aaYxpI9KqbWW1 UJEwm2e0Fc00T54yV9ZgtCB+ SBMuwEK3bDT4bA2sUlDuOrU0 YWxp W361ZwPimGJrVtknc1taw1wk fWe2KcXhUAHdlmMhxHjuBFI6 k6KeKs42A11jWCtoCGPpRXZx MCUi DAUmgYyvbn4vyE8zZl5+PGNv lMI6yDL0vN5iTiEqNjD8HHtw E240ZsXgoSGxDoqfV80pM3Ks dXA+ KJDzXdx9QVXdnTvpRP0wgGEd NWmfGf6nMSP3KoZuAvPkOWiy U0VdANPcuummscmfbVI1AXXl MDUw nI89Po0hvFzdSb2hCFHqONP7 WEAfdXMsE6GxbU4rKhTtDBWz GNZgV8HauEHdNIzhH954ZQao ZnQ7 TJKbumNaJ3FrNKEfsOdsXqX8 g4V8Vc5BzZkzeUZcDL6yPhFg PEf6D3PyWgs3JVGrsLuwPT6q cGFk KIdhMn2diScgiIbmIL0oLPMv ndaza492IyDit3evOPFifSYh OYilZUY3L06tu5G2EXNrFITx MDA7 sTE4aZ9ulCsyfqgwgIMrzNyf wbFuuGncPMsuPMtdX215OQFi qAnuWdZDCoh5C5NkUcj3ITQj dHls YY1lnTBoRNplHd7mqAihdDhk BH4aREEeatrnq873WaWhc1hy MZGmrFQrDYvdFAZ9Z75aa8Z3 ICMw GWXiZCB3xEV8bL5xjGkvnaig bGVmdDsgdmVydGljYWwtYWxp A671GOVtyUkdJw8NGvw1S6Hh Pjx0 GZPnuKmyDF0kdLYvQWmnFn4t xRsulMnmXH6vFLDmtbafj455 UxScj8tpZPZniKVmOCagFTQ7 Y29s w4A6AJAwSCYwQFA1kUS4mT7r bGlnbjogbGVmdDsgdmVydGlj JBrnCYraE010SRAslQatZtWo eWVy OjwvdGQ+RV30al17I1UvQqqj Kkc8VVRxIJH0oGD4aR4hWZLw JPrgd7W7wSN7O7CigtFlij8w b2xs YXBz (more content not included)... [facility] Consent for Procedure/Surger yon 12-05-2021 Consent for Procedure/Surgery [id number]#[id number] :127 [facility] Consent for Treatmenton 05-2 Consent for Treatment [id number]#1.00CD: 127 [facility] IntraOperative Documentson 0 12-05-2021 IntraOperative Documents [id number] :127 [facility] Main OR Intraoperative Recor don 12-05-2021 Main OR Intraoperative Record IntraOp Document Type FTURO Summary Primary Physician: Gustavo Graves Jr., MD Finalized Date/Time: 12/05/21 13:57:51 Pt. Name: HARISH MCKENNA /Sex: 1970 Male Med Rec #: [id number] Physician: Gustavo Graves Jr., MD Financial #: [id number] Pt. Type: O Room/Bed: / Admit/Disch: 12/05/21 11:48:14 - Institution: Case Times FTURO Entry 1 Patient Times In Room 12/05/21 13:23:00 Out Room 12/05/21 13:57:00 Procedure Times Start 12/05/21 13:40:00 Stop 12/05/21 13:53:00 Anesthesia Times Last Modified By: Veena Levin RN 12/05/21 13:57:47 Case Attendance FTURO Entry 1 Entry 2 Entry 3 Case Attendee Gustavo Graves Jr., MD OUTSIDE SALESMAN, Veena Brower OUTSIDE SALESMAN, Ni Aguirre Role Performed Surgeon - Primary [...] Case Attendee Veena Levin RN Role Performed Guitar Repairer - Primary Time In 12/05/21 13:23:00 Time [...] Equipment, Implant, Time Out Star Manley MD, Gustaov Orlando, Verified (If Medication Participants Veena Sanders [...] Implant Implant Identification Description UROLIFT Lot Number [id number] 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 Normal [facility] Main OR Preoperative Recordo n 12-05-2021 Main OR Preoperative Record Holding Area Document Type FTURO Summary Primary Physician: Gustavo Graves Jr., MD Finalized Date/Time: 12/05/21 13:01:06 Pt. Name: HARISH MCKENNA./Sex: 1970 Male Med Rec #: [id number] Physician: Gustavo Graves Jr., MD Financial #: [id number] Pt. Type: O Room/Bed: / Admit/Disch: 12/05/21 [...] 12:28 Veena Levin RN 12/05/21 13:01 Normal [facility] Operative Reporton Operative Report Patient: HARISH [...] procedure (10 mg diazepam, 5/325 mg of Powderhorn), Local Anesthesia (60cc 2% Xylocaine liquid inserted [...] well and was subsequently discharged home. Normal [facility] Comment on above: Result Comment: Elec tronically Signed By: Star Manley MD, Gustavo Orlando\.amanda\Date and Time Signed: 12/05/21 13:58 EDT CBC AUTO DIFFon 12-03-2021 BASO # 0.2 103/ul Critically high 0.0-0.1 [facility] Comment on above: Performed By: #### C BC ####[facility] [address] [place], [place] [address]EmFish Younger Basophils/100 WBC (Bld) 1.3 % Normal 0.2-2.0 [facility] Comment on above: Performed By: #### C BC ####[facility] [address] [place], [place] [address]AbFish Younger EO # 0.2 103/ul Normal 0.0-0.7 [facility] Comment on above: Performed By: #### C BC ####[facility] [address] [place] [address]Dr. Cortez Younger Eosinophils/100 WBC (Bld) 1.8 % Normal 0.9-7.0 [facility] Comment on above: Performed By: #### C BC ####[facility] [address] [place] [address]Dr. Cortez Younger Erythrocyte distribution width (RBC) [Ratio] 13.3 % Normal 11.0-15.0 [facility] Comment on above: Performed By: #### C BC ####[facility] [address] [place] [address]Dr. Cortez Younger Hematocrit (Bld) [Volume fraction] 45.0 % Normal 42.0-54.0 [facility] Comment on above: Performed By: #### C BC ####[facility] [address] [place], [place] [address]Dr. Cortez Younger Hemoglobin (Bld) [Mass/Vol] 15.6 g/dL Normal 14.0-18.0 [facility] Comment on above: Performed By: #### C BC ####[facility] [address] [place], [place] [address]Dr. Cortez Younger IG # 0.05 10e3/ul Critically high 0.00-0.03 [facility] Comment on above: Performed By: #### C BC ####[facility] [address] [place], [place] [address]Dr. Cortez Younger IG % 0.4 % Normal 0.0-0.5 [facility] Comment on above: Performed By: #### C BC ####[facility] [address] [place], [place] [address]Dr. Cortez Younger LYMPH # 1.8 103/ul Normal 1.2-3.8 [facility] Comment on above: Performed By: #### C BC ####[facility] [address] [place], [place] [address]Dr. Cortez Younger Lymphocytes/100 WBC (Bld) 15.2 % Critically low 20.5-60.0 [facility] Comment on above: Performed By: #### C BC ####[facility] [address] [place] [address]Dr. Cortez Younger MANUAL DIFF REQ NO Normal [facility] Comment on above: Performed By: #### C BC ####[facility] [address] [place] [id number]. Cortez Younger MCH (RBC) [Entitic mass] 31.1 pg Normal 25.9-34.0 [facility] Comment on above: Performed By: #### C BC ####[facility] [address] [place] [address]Dr. Cortez Younger MCHC (RBC) [Mass/Vol] 34.7 g/dL Normal 29.9-35.2 [facility] Comment on above: Performed By: #### C BC ####[facility] [address] [place], [place] [address]Dr. Cortez Younger MCV (RBC) [Entitic vol] 89.8 fL Normal 80.0-94.0 [facility] Comment on above: Performed By: #### C BC ####[facility] [address] [place], [place] [address]DrFish Younger MONO # 0.6 103/ul Normal 0.3-0.8 [facility] Comment on above: Performed By: #### C BC ####[facility] [address] [place] [address]Dr. Cortez Younger Monocytes/100 WBC (Bld) 5.3 % Normal 1.7-12.0 [facility] Comment on above: Performed By: #### C BC ####[facility] [address] [place], [place] [address]DrFish Younger NEUT # 8.9 103/ul Critically high 1.4-6.5 [facility] Comment on above: Performed By: #### C BC ####[facility] [address] [place] [id number] Younger Neutrophils/100 WBC (Bld) 76.0 % Critically high 43.0-75.0 [facility] Comment on above: Performed By: #### C BC ####[facility] [address] [place] [id number]. Cortez Younger Platelet mean volume (Bld) [Entitic vol] 8.9 fL Critically low 9.5-13.5 [facility] Comment on above: Performed By: #### C BC ####[facility] [address] [place] [id number]. Cortez Younger PLT 414 103/ul Normal 150-450 [facility] Comment on above: Performed By: #### C BC ####[facility] [address] [place] [id number]. Cortez Younger RBC 5.01 106/ul Normal 4.70-6.10 [facility] Comment on above: Performed By: #### C BC ####[facility] [address] [place] [id number]. Cortez Younger WBC 11.7 103/ul Critically high 4.0-11.0 [facility] Comment on above: Performed By: #### C BC ####[facility] [address] [place] [phone]. Cortez Younger PROF 14(COMP METB)on 022 Albumin [Mass/Vol] 3.8 g/dL Normal 3.4-5.0 [facility] Comment on above: Performed By: #### C BC #### [facility] [address] [address] [address] Cortez Younger Albumin/Globulin [Mass ratio] 1.3 {ratio} Normal [facility] Comment on above: Performed By: #### C BC #### [facility] [address] [address] [address] Cortez Younger ALP [Catalytic activity/Vol] 95 U/L Normal 46-116 [facility] Comment on above: Performed By: #### C BC #### [facility] [address] [address] [address] Cortez Younger ALT [Catalytic activity/Vol] 25 U/L Normal 16-63 [facility] Comment on above: Performed By: #### C BC #### [facility] [address] [address] [address] Cortez Younger Anion gap [Moles/Vol] 12.7 mmol/L Normal [facility] Comment on above: Performed By: #### C BC #### [facility] [address] [address] [address] Cortez Younger AST [Catalytic activity/Vol] 18 U/L Normal 15-37 [facility] Comment on above: Performed By: #### C BC #### [facility] [address] [address] [address] Cortez Younger Bilirubin [Mass/Vol] 0.3 mg/dL Normal 0.2-1.0 [facility] Comment on above: Performed By: #### C BC #### [facility] [address] [place] [address] Dr. Cortez Younger Calcium [Mass/Vol] mg/dL Normal 8.5-10.1 [facility] Comment on above: Performed By: #### C BC #### [facility] [address] [address] [address] Cortez Younger Chloride [Moles/Vol] 98 mmol/L Normal 98-107 [facility] Comment on above: Performed By: #### C BC #### [facility] [address] [place] [address] Dr. Cortez Younger CO2 [Moles/Vol] 28.9 mmol/L Normal 21.0-32.0 [facility] Comment on above: Performed By: #### C BC #### [facility] [address] [address] [address] Cortez Younger Creatinine [Mass/Vol] 0.84 mg/dL Normal 0.70-1.30 [facility] Comment on above: Performed By: #### C BC #### [facility] [address] [address] [address] Cortez Younger EGFR-AF IRISH >60 Normal >=60 [facility] Comment on above: Performed By: #### C BC #### [facility] [address] [address] [address] Cortez Younger EGFR-NON AF IRISH >60 Normal >=60 [facility] Comment on above: Performed By: #### C BC #### [facility] [address] [place] [address] Dr. Cortez Younger Globulin (S) [Mass/Vol] 3.0 g/dL Normal [facility] Comment on above: Performed By: #### C BC #### [facility] [address] [address] [address] Cortez Younger Glucose [Mass/Vol] 104 mg/dL Normal 74-[address] [facility] Comment on above: Performed By: #### C BC #### [facility] [address] [place] [address] Dr. Cortez Younger Potassium [Moles/Vol] 3.6 mmol/L Normal 3.5-5.1 [facility] Comment on above: Performed By: #### C BC #### [facility] [address] [place] [address] Dr. Cortez Younger Protein [Mass/Vol] 6.8 g/dL Normal 6.4-8.[address] [facility] Comment on above: Performed By: #### C BC #### [facility] [address] [place] [address] Dr. Cortez Younger Sodium [Moles/Vol] 136 mmol/L Normal 136-[address] [facility] Comment on above: Performed By: #### C BC #### [facility] [address] [place] [address] Dr. Cortez Younger Urea nitrogen [Mass/Vol] 6.0 mg/dL Critically low 7.0-18.0 [facility] Comment on above: Performed By: #### C BC #### [facility] [address] [place] [address] Dr. Cortez Younger Urea nitrogen/Creatinine [Mass ratio] 7.1 mg/mg Normal [facility] Comment on above: Performed By: #### C BC #### [facility] [address] [place] [address] Dr. Cortez Younger Consent for Procedure/Surger yon 10-15-2021 Consent for Procedure/Surgery [id number]: 127 Normal [facility] Patient Educationon 10-15-19 22 Patient Education Urology Hematuria, Adult Hematuria is [...] these instructions at home: Medicines ? Take iaur-oti-inyaweg and prescription medicines only as told by [...] the blood stops without treatment. ? Take wfan-xcp-novuymr and prescription medicines only as told by your health care provider. ? Drink enough fluid to keep your urine clear or pale yellow. This information is not intended to replace advice given to you by your health care provider. Make sure you discuss any questions you have with your health care provider. Document Released: 06/29/2006 Document Revised: 11/23/2019 Document Reviewed: 08/01/2017 [email or web address] Patient Education ? 2019 [email or web address] [facility] Urology Office/Clinic Noteon 10-14-2021 Urology Office/Clinic [...] Gustavo Orlando, [facility] [address] [place] [address]- Additional Instructions: Patient Education Hematuria, Adult Jaret Finley personally scribed for Dr. Graves on 10/14/2021 13:40:09. . Documentation recorded by the Sharonda yao accurately reflects the services(s) I performed and decis (more content not included)... Normal [facility] Comment on above: Result Comment: Elec tronically Signed By: Gustavo Graves Jr., MD\.br\Date and Time Signed: 10/14/21 13:47 EDT\.br\Electronically Co-Signed By: Jaret Benz\.br\Date and Time Co-Signed: 10/14/21 13:40 EDT SURGICAL PATH REPORTon 01-25 SURGICAL PATH REPORT [facility] Department of Pathology [address] [place] [address] Name: HARISH MCKENNA : 1970 [facility] [id number] Number: Gender: Male Location: [facility] Admit 50 years Attending CRUZITO TOMLINSON JR Age: Provider: Ordering CRUZITO TOMLINSON JR Provider: Consulting: Surgical Pathology Report ACCESSION: COLLECTED DATE/TIME: RECEIVED DATE/TIME: PATHOLOGIST: [id number] 01/23/2021 12:05 EDT 01/24/2021 12:05 EDT ALVIN CADET MD Final Diagnosis Report for [facility], [place] [facility]TR[facility], BIOPSY: - MILD CHRONIC GASTRITIS. [...] MP/ts 01/24/2021 Tissue pathology report for: [facility], [address] [place] [id number]; Print Date/ 01/25/2021 12:34 EDT Number: Time: [facility] Department of Pathology [address] [place] [id number] Name: HARISH MCKENNA : 1970 [facility] [id number] Number: Gender: Male Location: [facility] Admit 50 years Attending CRUZITO TOMLINSON JR Age: Provider: Ordering CRUZITO TOMLINSON JR Provider: Consulting: Surgical Pathology Report ACCESSION: COLLECTED DATE/TIME: RECEIVED DATE/TIME: PATHOLOGIST: [id number] 01/23/2021 12:05 EDT 01/24/2021 12:05 EDT ALVIN CADET MD Gross Description PATHOLOGY SERVICES PROVIDED BY [facility] (CLIA #[id number]) in cooperation with [facility] at [address] [place] [address] (CLIA #[id number]) Microscopic Diagnosis NOTE: One or more of the reagents used to perform assays on this specimen MAY have contained components considered to be analyte specific reagents ( ASRs). ASRs have not been cleared or approved by the U.S. Food and Drug Administration. The performance characteristics of these assays have been determined by the Department of Pathology at [facility]. This assay was performed subsequent to the H and E examination. Appropriate positive and negative controls were examined with appropriate reactivity. Codes CPT CODE: 93908 [id number] Print Date01/25/2021 12:34 EDT Number: Time: Normal [facility] Comment on above: Performed By: #### [id number] #### [facility] Services [address] [place] [id number] Labor Specialist: Alvin Cadet MD Vital Signs Date Time Vital Sign Value Performing Clinician Facility 03-25-2023 13:30-0400 Body height 177.8 cm Mahnaz Roth Other [facility] Other 03-25-2023 13:30-0400 Body mass index (BMI) [Ratio] 18.65 kg/m2 Mahnaz Roth Other [facility] Other 03-25-2023 13:30-0400 Body temperature 98.4 [degF] Mahnaz Roth Other [facility] Other 03-25-2023 13:30-0400 Body weight 58.97 kg Mahnaz Roth Other [facility] Other 03-25-2023 13:30-0400 Diastolic blood pressure 87 mm[Hg] Mahnaz Marcelinow Other [facility] Other 03-25-2023 13:30-0400 Systolic blood pressure 135 mm[Hg] Mahnaz Marcelinow Other [facility] Other 12-24-2021 09:50-0400 Blood Pressure Location Gustavo Graves Jr. [facility] 12-24-2021 09:50-0400 Diastolic blood pressure 76 mm[Hg] Gustavo Graves Jr. [facility] 12-24-2021 09:50-0400 Heart rate 68 /min Gustavo Graves Jr. [facility] 12-24-2021 09:50-0400 Systolic blood pressure 132 mm[Hg] Gustavo Graves Jr. [facility] Encounters Encounter Date Encounter Type Care Provider Facility Start: 09-09-2023 End: 09-09-2023 ambulatory BUBBA GHOTRA Not Available Start: 08-31-2023 End: 08-31-2023 ambulatory BUBBA Chand HEMEYER Not Available Start: 08-21-2023 End: 08-21-2023 ambulatory Mahnaz Ira Other [facility] Other Start: 08-21-2023 Telephone encounter Mahnaz Ira [facility] Start: 07-22-2023 Telephone encounter Mahnaz Ira [facility] Start: 07-22-2023 End: 07-22-2023 ambulatory MATY MEDEIROS [facility] Other Start: 06-24-2023 End: 06-24-2023 ambulatory Mahnaz Ira Other [facility] Other Start: 06-24-2023 Telephone encounter Mahnaz Ira [facility] Start: 05-28-2023 End: 05-28-2023 ambulatory Mahnaz Ira Other [facility] Other Start: 05-28-2023 Telephone encounter Mahnaz Ira [facility] Start: 05-19-2023 End: 05-19-2023 ambulatory Mahnaz Ira Other [facility] Other Start: 05-19-2023 Office outpatient visit 15 minutes Mahnaz Ira [facility] Start: 04-21-2023 End: 04-21-2023 ambulatory Mahnaz Ira Other [facility] Other Start: 04-21-2023 Office outpatient visit 15 minutes Mahnaz Ira [facility] Start: 04-07-2023 End: 04-07-2023 ambulatory Mahnaz Ira Other [facility] Other Start: 04-07-2023 Telephone encounter Mahnaz Ira [facility] Start: 04-02-2023 End: 04-02-2023 ambulatory Mahnaz Ira Other [facility] Other Start: 04-02-2023 Telephone encounter Mahnaz Ira [facility] Start: 04-01-2023 End: 04-01-2023 ambulatory Mahnaz Ira Other [facility] Other Start: 04-01-2023 Telephone encounter Mahnaz Ira [facility] Start: 03-25-2023 End: 03-25-2023 ambulatory Mahnaz Ira Other [facility] Other Start: 03-25-2023 Office outpatient ne w [...] Start: 03-13-2022 End: [address] LISA ROMREO . Facility:[facility] Start: 03-08-2022 ambulatory JERI PURCELL Facility:[facility] Start: 02-26-2022 End: 02-27-[address] VERN [...] procedure Gustavo Graves Jr. [facility] Start: 12-17-2021 End: 12-19-[address] DOCTOR BENNETT Facility: Start: 12-12-2021 End: 12-13-2021 ambulatory LAMAR TURNER Facility: Start: 12-05-2021 End: 12-06-2021 ambulatory Heri MURRELL Facility:[facility] Start: 12-05-2021 End: 12-05-2021 Patient encounter procedure Gustavo Graves Jr. [facility] Start: 12-05-2021 ambulatory Heri MURRELL Facility :[facility] Start: 12-03-2021 End: 12-04-2021 ambulatory JERI PURCELL Facility: Start: 10-14-2021 End: 10-15-2021 ambulatory Heri MURRELL Facility: [facility] Start: 09-19-2021 ambulatory Heri MURRELL Facility :[facility] Start: 12-11-2017 End: 12-12-2017 Patient encounter procedure Tunde WFish Das Facility:[facility] Procedures Date Procedure Procedure Detail Performing Clinician Start: 10-14-2021 Cystoscopy Gustavo flores Jr. Start: 09-13-2019 Cystoscopy Gustavo Deena flores Jr. Cholecystectomy Gustavo Graves Jr. Counseling Mahnaz corcoran Other Immunizations Immunization Date Immunization Notes Care Provider [facility] 10-22-2020 SARS-CoV-2 (COVID-19 ) mRNA BNT-162b2 vax Gustavo Graves Jr. [facility] 10-01-2020 SARS-CoV-2 (COVID-19 ) mRNA BNT-162b2 vax Gustavo Graves Jr. [facility] Payers Date Payer Category Payer Unknown [id number] 2.16.8 [id number] 1970 Unknown [id number] 2.16.8 40.1.542283.3.579.2.727 1970 Unknown [id number] 2.16.8 40.1.145665.3.579.2.727 1969 Unknown [id number] 2.16.8 40.1.033469.3.579.2.727 1969 Unknown [id number] 2.16.8 40.1.074716.3.579.2.727 1969 Unknown [id number] 2.16.84 0.1.784892.3.579.2.593 1969 Unknown [id number] 2.16.84 0.1.386948.3.579.2.593 1969 Unknown [id number] 2.16.84 0.1.647633.3.579.2.593 1969 Unknown [id number] 2.16.84 0.1.608963.3.579.2.593 1969 Unknown [id number] 2.16.84 0.1.001492.3.579.2.593 1969 Unknown [id number] 2.16.84 0.1.213362.3.579.2.593 1969 Unknown [id number] 2.16.84 0.1.433440.3.579.2.593 1969 Unknown [id number] 2.16.84 0.1.359518.3.579.2.593 1969 Unknown [id number] 2.16.84 0.1.262634.3.579.2.593 1969 Unknown [id number] 2.16.84 0.1.546624.3.579.2.593 1969 Unknown [id number] 2.16.84 0.1.742568.3.579.2.593 1969 Unknown [id number] 2.16.84 0.1.615273.3.579.2.593 1969 Unknown [id number] 2.16.84 0.1.692921.3.579.2.593 1969 Unknown [id number] 2.16.84 0.1.135341.3.579.2.593 1969 Unknown [id number] 2.16.84 0.1.199598.3.579.2.593 1969 Unknown [id number] 2.16.84 0.1.054344.3.579.2.593 1969 Unknown [id number] 2.16.84 0.1.624676.3.579.2.593 1969 Unknown [id number] 2.16.84 0.1.422236.3.579.2.593 1969 Unknown [id number] 2.16.84 0.1.523454.3.579.2.593 1969 Unknown [id number] 2.16.84 0.1.614244.3.579.2.593 1969 Unknown [id number] 2.16.84 0.1.942111.3.579.2.1286 1969 Unknown [id number] 2.16.84 0.1.864756.3.579.2.1259 1969 Unknown [id number] 2.16.84 0.1.772040.3.579.2.1259 1960 Medicaid [id number] 1960 Medicare [id number] 1960 Self-pay Social History Date Type Detail Facility Start: 10-14-2021 Tobacco smoking status Ex-smoker (fi nding) [facility] Sex Assigned At Male [facility] Functional Status Date Assessment Result Facility 12-24-2021 Functional Status N/A [facility] [employer] [facility] Clinical Notes 12-05-2021 to 08-21-2023 Note Date & Type Note Facility 08-21-2023 Evaluation note Encounter Date Diagnosis Assessment Notes Aug, Chronic pain (ICD-10 - G89.29) [facility] reviewed, consistent with Rx. MME 60 mg/day [facility] Other 01-10-2024 Evaluation note* Encounter Date Diagnosis Assessment Notes Treatment Notes Treatment Clinical Notes Jul, Chronic pain (ICD-10 - G89.29) OAR[facility] reviewed, consistent with Rx. Also has benzo prescribed by P and pregabalin by neurology [facility] Other 12-13-2023 Evaluation note* Encounter Date Diagnosis Assessment Notes Treatment Notes Treatment Clinical Notes Jun, Chronic pain (ICD-10 - G89.29) [facility] Other 11-16-2023 Evaluation note* Encounter Date Diagnosis Assessment Notes Treatment Notes Treatment Clinical Notes May, Chronic pain (ICD-10 - G89.29) OARRS reviewed, consistent with Rx [facility] Other 11-07-2023 Evaluation note* Encounter Date Diagnosis [...] at bedtime instead of using PRN only [facility] Other 10-10-2023 Evaluation note* Encounter Date Diagnosis Assessment Notes Treatment Notes Treatment Clinical Notes Apr, Chronic pain (ICD-10 - G89.29) OARRS reviewed, consistent with Rx. Harish reports some relief with oxycodone 10 mg tabs, and is using med 3-4x/daily. Continue same without change. Apr, Constipation (ICD-10 - K59.00) Improved elimination with daily use of senna [facility] Other 09-26-2023 Evaluation note* Encounter Date Diagnosis [...] reported some lose stools after using routinely [facility] Other 09-20-2023 Evaluation note* Encounter Date Diagnosis Assessment Notes Treatment Notes Treatment Clinical Notes Mar, Chronic pain (ICD-10 - G89.29) OARRS reviewed, consistent with recent Rx. Increasing frequency of oxycodone to q6h PRN to improve pain control. Mar, Constipation (ICD-10 - K59.00) Harish is using Miralax daily but remains constipated, will add stimulant laxative [facility] Other 09-13-2023 Evaluation note* Encounter Date Diagnosis [...] of Constipation hand out provided to patient [facility] Other 04-06-2023 NoteCONSULTATION CONSULTATION DATE: 10/16/2022 TO: [...] 25 mg daily, Lyrica 200 mg t.i.d., Powderhorn 7.5 mg b.i.d. He currently uses medical [...] THC if we are to continue with Powderhorn. However, at this point, I do not [...] our patients to inform us about any hcqs-mmq-ncukxpv medications or herbal remedies/nutritional supplements/alternative remedies. 2. [...] treatment options with their primary care provider.[id number] Note CONSULTATION CONSULTATION DATE: 06/26/2022 HISTORY OF [...] Lyrica 200 mg t.i.d. per his neurologist, Powderhorn 7.5/325 b.i.d., Cymbalta, baclofen and Ocrevus. Patient's [...] medication changes today. He was increased to Powderhorn 7.5/325 at his last visit, and the patient feels it is somewhat helpful. We will continue to medically manage him only. Patient will be seen in the clinic in three months' time unless otherwise indicated.[facility] [id number] NoteCONSULTATION CONSULTATION DATE: 03/13/2022 HISTORY OF PRESENT ILLNESS: This is 51-year-old gentleman, well known to the Pain Clinic, returning for a three month follow up. This gentleman has history of MS, chronic pain syndrome and diffuse neuropathic pain, which is chronically medically managed with a medication regimen. Current medications include Mobic 15 mg daily, Lyrica 200 mg t.i.d., Powderhorn 5/325 t.i.d., baclofen, Trileptal and amitriptyline. Patient recently suffered a family loss and reportedly has lost about 12 pounds in weight. He does ambulate with a cane and is stable with that. He is requesting today that we change his Powderhorn from t.i.d. to 7.5 b.i.d. as he [...] pain. PLAN: We will check from his Powderhorn 5/325 t.i.d. to 7.5/325 b.i.d. We will maintain his other medications with no dose or frequency change. He will be given a U-Tox in the clinic today. I did discuss vitamin importance as well as supplementing his protein intake with Boost supplements. We will see the patient in three months' time, unless otherwise indicated. Patient is in agreement to this.[id number] Hospital Discharge instructions Patient Education 12/24/2021 10:47:00 [...] including vitamins, herbs, eye drops, creams, and dekd-mvt-akjutzr medicines. This also includes: ?Medicines to assist [...] 08/01/2005 Document Revised: 06/11/2018 Document Reviewed: 04/05/2018 [email or web address] Patient Education 2020 [employer]. Follow Up Care 12/05/2021 14:04:21 With:Star Manley MD, LION Borja Address: [facility] [address] [place] [id number]- When:Within 6 Month(s) Comments:w/ PVR [facility] 05-26-2022 Note [id number]:127[facility] 12-05-2021 NoteUrolift ? Some men may [...] personnel to use a Coude (pronouncedcoo-day) tipped catheter.[facility]05-26-2022 Hospital Discharge instructions Patient Education 12/05/2021 [...] Urology [address], [place] [address]- Business (1) When:2 to 4 weeks Comments:PVR with [facility] Future Appointments Appointment Date:12/24/2021 09:30:00 AM Scheduled Provider:Gustavo Graves Jr., MD Location:[facility] Appointment Type:URO [facility] Future Appointments Appointment Date:07/01/2022 10:45:00 AM Scheduled Provider:Gustavo Graves Jr., MD Location:[facility] Appointment Type:URO Office Visit [facility] evaluation noteNo InformationN[facility]Community [facility] [employer] Other History general Narrative - Reported* Type Description Date Medical History multiple sclerosis Medical History bipolar Medical History GERD Surgical History cholecystectomy [facility] [employer] Other Hospital course Narrative No data available for this section [facility] No data available for this section [facility] Summary Purpose Family History No Family History [...] section and content) DATE CREATED AUTHOR 09/18/2018 [facility] DATE CREATED AUTHOR AUTHOR'S ORGANIZ ATION 01/25/2021 [facility] DATE CREATED AUTHOR AUTHOR'S ORGANIZ ATION 09/16/2022 [facility] DATE CREATED AUTHOR AUTHOR'S ORGANIZ ATION 11/18/2022 [facility] DATE CREATED AUTHOR AUTHOR'S ORGANIZ ATION 07/26/2023 [facility] DATE CREATED AUTHOR AUTHOR'S ORGANIZ ATION 09/12/2023 [facility] Care Team (unrecognized sect ion and content) Personnel Name: BUBBA GHOTRA MD Address: [address] [place] [id number] REASON FOR VISIT (unrecogniz ed section and [...] BE BASED ON THE PRIMARY CLINICAL RECORDS. [employer] provides no warranty or guarantee of the accuracy or completeness of information in this document.
[2023-10-15 21:00] VITALS: PULSE 79; TEMP 37.2; O2SAT 92; BMI 17.4
[2023-10-15 21:23] VITALS: O2SAT 94
--- NOTE | 2023-10-15 21:25 | XR_ITS ---
The [address] [address] Patient Name: SERGIO MCKENNA MRN: [id number] date: 1970 Sex: M Assigned Patient Location: ER Current Patient Location: ER Accession/Order Number: [id number] Exam Date: 10/15/2023 22:07 Report Date: 10/15/2023 22:22 At the request of: DAHLIA KIM Procedure: XR chest 2V EXAM: XR chest 2V HISTORY: fever,cough,recent pneumonia COMPARISON: Chest x-ray 08/26/2023 TECHNIQUE: PA and lateral chest FINDINGS: No pneumothorax or effusion. No consolidation. Normal heart size. Surgical clips project over right upper quadrant. No acute osseous abnormality. XR/XR chest 2V IMPRESSION: No acute cardiopulmonary process. Electronically authenticated by: INNA DELANEY Date: 10/15/2023 22:22
--- NOTE | 2023-10-15 21:26 | ED.GENADUL1 ---
HPI HPI - General Adult General Chief complaint: Upper Respiratory Infection Stated complaint: URTI Time Seen by Provider: 10/15/23 20:41 Source: patient and friend Mode of arrival: walk-in Limitations: no limitations History of Present Illness HPI narrative: Patient presents with cough for the last 2 weeks associated with fever and chills 4 nights ago and the following night. He admits to some generalized fatigue. He is concerned about possible pneumonia. I saw him in mid August and he was admitted for community acquired pneumonia with WBC 21k, no PE on CTA chest. he was discharged home on antibiotics and finished those. He was supposed to get infusion for his multiple sclerosis but could not because of the hospitalization and antibiotics. His home health nurse has been encouraging him to get the infusion but with his cough/cold symptoms he has not been able to schedule - they told him that he had to get checked out . He told me that he did not call Dr Ghotra because he can't order chest xrays or other tests . Patient denied any GI or symptoms. He told me that he has been taking nyquil for his cough symptoms. He is uncertain if things are better, worse or about the same. Related Data Home Medications ?Medication ?Instructions ?Recorded ?Confirmed albuterol sulfate 2.5 mg/3 mL 2.5 mg inhalation Q6H PRN 08/26/23 08/26/23 (0.083 %) solution for nebulization shortness of breath or wheezing baclofen 20 mg tablet 20 mg PO Q8H 08/26/23 08/26/23 budesonide-formoterol HFA 160 2 puff inhalation Q12H 08/26/23 08/26/23 mcg-4.5 mcg/actuation aerosol inhaler (Symbicort) buspirone 15 mg tablet 15 mg PO TID 08/26/23 08/26/23 clonazepam 1 mg tablet 1 mg PO Q12H 08/26/23 08/26/23 duloxetine 60 mg capsule,delayed 120 mg PO DAILY 08/26/23 08/26/23 release hydralazine 10 mg tablet 10 mg PO Q8H 08/26/23 08/26/23 losartan 100 mg tablet 100 mg PO DAILY 08/26/23 08/26/23 metoprolol tartrate 50 mg tablet 75 mg PO Q12H 08/26/23 08/26/23 oxcarbazepine 300 mg tablet 300 mg PO BID 08/26/23 08/26/23 oxycodone 10 mg tablet 10 mg PO Q6H PRN pain 08/26/23 08/26/23 pantoprazole 40 mg tablet,delayed 40 mg PO BID 08/26/23 08/26/23 release pregabalin 200 mg capsule 200 mg PO Q8H 08/26/23 08/26/23 primidone 50 mg tablet 100 mg PO BEDTIME 08/26/23 08/26/23 quetiapine 50 mg tablet 50 mg PO .QHS 08/26/23 08/26/23 sennosides 8.6 mg tablet (senna) 17.2 mg PO BID PRN constipation 08/26/23 08/26/23 Previous Rx's ?Medication ?Instructions ?Recorded amoxicillin 875 mg-potassium 1 tab PO Q12H 14 days #28 tabs 08/29/23 clavulanate 125 mg tablet levofloxacin 750 mg tablet 750 mg PO DAILY 7 days #7 tabs 08/29/23 prednisone 10 mg tablets in a dose 10 mg PO DAILY #39 ea 08/29/23 pack Allergies Allergy/AdvReac Type Severity Reaction Status Date / Time paroxetine [From Paxil] Allergy Intermediate Hallucinati Verified 10/15/23 21:10 ng venlafaxine [From Effexor] Allergy Intermediate Hallucinati Verified 10/15/23 21:10 ng Opioid HPI Opioid Management Most Recent Opioid Data: Last Pain Scale 5 08/29/23 12:38 PFSH PFSH Medical History (Updated 10/15/23 @ 22:32 by Reginaldo Castelan) Acute hypoxic respiratory failure ?J96.01 - Acute respiratory failure with hypoxia (ICD-10) Hypertension ?I10 - Essential (primary) hypertension (ICD-10) Multiple sclerosis ?G35 - Multiple sclerosis (ICD-10) Acute infective exacerbation of chronic obstructive airway disease ?J44.1 - Chronic obstructive pulmonary disease with (acute) exacerbation (ICD-10) Hypoxemia ?R09.02 - Hypoxemia (ICD-10) FH: cholecystectomy ?Z83.79 - Family history of other diseases of the digestive system (ICD-10) COPD (chronic obstructive pulmonary disease) ?J44.9 - Chronic obstructive pulmonary disease, unspecified (ICD-10) Social History (Updated 08/26/23 @ 09:58 by Sridevi Rodas) Within the past year, how often did you have a drink containing alcohol: never Score interpretation: A score less than 4 is consistent with normal alcohol consumption. Smoking status: Current every day smoker Non-prescribed substance use: cannabis (any form) Previous occupational history: disabled Highest level of school completed/degree received: high school graduate Exam Narrative Exam Narrative: Nurses notes and vital signs reviewed and patient is not hypoxic but RA sat is 92%. afebrile General: Well-appearing and in no apparent distress. Skin: Warm, dry, no pallor noted. No rash. Head: Normocephalic, atraumatic. Neck: Supple, non-tender. No cervical lymphadenopathy. No meningismus Eye: Pupils are equal, round and EOMI. No scleral icterus. Ears, Nose, Mouth, and Throat: TM are clear, no posterior oropharynx erythema or nasal mucosal hypertrophy, uvula is mid-line Oral mucosa is moist Cardiovascular: Regular Rate and Rhythm without murmur, gallop or rub. Respiratory: No accessory muscle use or respiratory distress. Lungs are clear to auscultation, no wheezing, rales or rhonchi Musculoskeletal: normal ROM, no calf or popliteal tenderness, no lower extremity edema/swelling GI: Abdomen is soft, non-distended. Normal bowel sounds. No tenderness to palpation. No rebound, guarding, or rigidity noted. Neurological: A&O x4. No cranial nerve dysfunction observed. No truncal ataxia. Moves all extremities. Sensation intact. Psychiatric: Cooperative and interactive. Normal mood and affect. Constitutional Vital Signs, click to edit/add: Last Vital Signs Temp 99 F 10/15/23 21:00 Pulse 79 10/15/23 21:00 Resp 20 10/15/23 21:00 Pulse Ox 94 L 10/15/23 21:23 O2 Del Method Room Air 10/15/23 21:23 O2 Flow Rate 2 10/15/23 21:23 Course Vital Signs Vital signs: Vital Signs Temperature 99 F 10/15/23 21:00 Pulse Rate 79 10/15/23 21:00 Respiratory Rate 20 10/15/23 21:00 Pulse Oximetry 92 L 10/15/23 21:00 Temperature 99 F 10/15/23 21:00 Pulse Rate 79 10/15/23 21:00 Respiratory Rate 20 10/15/23 21:00 Pulse Oximetry 94 L 10/15/23 21:23 Oxygen Delivery Method Room Air 10/15/23 21:23 Oxygen Delivery Flow Rate 2 10/15/23 21:23 Medical Decision Making MDM Narrative Medical decision making narrative: I reviewed the patient's chart from recent admission - Including consultation by food product inspector. On this emergency department visit, the patient was ordered to undergo x-rays of the chest. He also had swabs for influenza, COVID and RSV. CXR negative. He tested positive for Influenza A - He is way outside of the window for any Tamiflu administration as his symptoms have been going on for almost 2 weeks now. Patient advised to rest, stay at home, practice social distancing, take Motrin and Tylenol for pain and fever if not allergic, stay well hydrated with Gatorade or similar drinks if vomiting or eat as tolerated if not and take any meds as prescribed. Reviewed reasons to return including rapid increase in respiratory rate, shortness of breath, confusion, inability to keep down sips of swallowed liquids for more than 24 hours. Asked patient to encourage any ill contacts to stay home and practice similar advice. Lab Data Lab results reviewed: Yes I reviewed the patient's lab results Labs: Lab Results 10/15/23 Range/Units 21:10 Influenza Type A Ag Positive A Influenza Type B Ag Negative RSV Antigen Not detected (NOT DETECTE) SARS-CoV-2 Ag (CV2AG) Negative (NEGATIVE) Imaging Data Chest x-ray: Attestation: I personally reviewed and interpreted this imaging study as follows: My impression: NAD Radiologist's impression: ITS Impressions Chest X-Ray 10/15/23 21:25 IMPRESSION: No acute cardiopulmonary process. Electronically authenticated by: INNA DELANEY Date: 10/15/2023 22:22 Discharge Plan Discharge Stand Alone Forms: Portal Instructions Chief Complaint: Upper Respiratory Infection Clinical Impression: Influenza, Upper respiratory infection Patient Disposition: Home, Self-Care Time of Disposition Decision: 22:32 Prescriptions / Home Meds: No Action hydralazine 10 mg tablet 10 mg PO Q8H primidone 50 mg tablet 100 mg PO BEDTIME albuterol sulfate 2.5 mg /3 mL (0.083 %) solution for nebulization 2.5 mg inhalation Q6H PRN (Reason: shortness of breath or wheezing) clonazepam 1 mg tablet 1 mg PO Q12H oxcarbazepine 300 mg tablet 300 mg PO BID metoprolol tartrate 50 mg tablet 75 mg PO Q12H losartan 100 mg tablet 100 mg PO DAILY buspirone 15 mg tablet 15 mg PO TID duloxetine 60 mg capsule,delayed release(DR/EC) 120 mg PO DAILY pregabalin 200 mg capsule 200 mg PO Q8H budesonide-formoterol [Symbicort] 160-4.5 mcg/actuation HFA aerosol inhaler 2 puff INHALATION Q12H oxycodone 10 mg tablet 10 mg PO Q6H PRN (Reason: pain) baclofen 20 mg tablet 20 mg PO Q8H pantoprazole 40 mg tablet,delayed release (DR/EC) 40 mg PO BID quetiapine 50 mg tablet 50 mg PO .QHS Rx Instructions: MAY REPEAT IN 4 HOURS IF STILL AWAKE sennosides [senna] 8.6 mg tablet 17.2 mg PO BID PRN (Reason: constipation) prednisone 10 mg tablets,dose pack 10 mg PO DAILY Qty: 39 0RF Rx Instructions: 6 PO daily x 3 days, then 4 PO daily x 3 days, then 2 PO daily x 3 days, then 1 PO daily x 3 days levofloxacin 750 mg tablet 750 mg PO DAILY 7 Days Qty: 7 0RF amoxicillin-pot clavulanate 875-125 mg tablet 1 tab PO Q12H 14 Days Qty: 28 0RF Print Language: Danish Instructions: Influenza (ED), Upper Respiratory Infection (ED) Referrals: RANDALL GHOTRA [Primary Care Provider] - 1 week
[2023-10-15 21:52] LABS: Influenza Virus A Antigen Positive; Influenza Virus B Antigen Negative; Internal Control Within Normal Limits
[2023-10-15 21:53] LABS: SARS-CoV-2 Ag NEGATIVE (NEGATIVE)
[2023-10-15 21:58] LABS: Internal Control Within Normal Limits; Respiratory Syncytial Virus Not Detected (NOT DETECTE)
[2023-10-15 22:52] VITALS: O2SAT 98
== END 2023-10-15 22:54 | disposition home or self-care (01) ==
PROVIDERS: Emergency Provider Emergency Medicine; PCP Family Medicine
DX: J10.1 Influenza due to other identified influenza virus with other respiratory manifestations (principal); Z87.01 Personal history of pneumonia (recurrent); G35 Multiple sclerosis; Z79.899 Other long term (current) drug therapy; I10 Essential (primary) hypertension; J44.9 Chronic obstructive pulmonary disease, unspecified; F17.200 Nicotine dependence, unspecified, uncomplicated
CPT/HCPCS: 71046; 87420; 87804; 87811; 99284

== ENCOUNTER 2023-10-22 13:28 | Inpatient (IN) | payer MEDICARE, MEDICAID, SELFPAY ==
[2023-10-22] VITALS (13 sets, daily range): BP systolic 106–130; BP diastolic 71–89; PULSE 83–117; TEMP 36.6–36.9; O2SAT 91–100; BMI 17.3
--- NOTE | 2023-10-22 13:36 | XR_ITS ---
The [address] [address] Patient Name: SERGIO MCKENNA MRN: [id number] date: 1970 Sex: M Assigned Patient Location: ER Current Patient Location: ER Accession/Order Number: [id number] Exam Date: 10/22/2023 13:50 Report Date: 10/22/2023 14:22 At the request of: LUCIEN HERBERT Procedure: XR chest 1V EXAM: XR chest 1V HISTORY: Shortness of breath COMPARISON: None. TECHNIQUE: AP view of the chest. FINDINGS: The cardiomediastinal silhouette is normal. Left infrahilar airspace disease. There is no pneumothorax. No pleural effusion is noted. The osseous structures are intact. XR/XR chest 1V IMPRESSION: Left infrahilar pneumonia. Electronically authenticated by: GENO MEYER Date: 10/22/2023 14:22
--- NOTE | 2023-10-22 13:36 | ECG_ITS ---
[facility] Test Date: 2023-10-22 Pat Name: SERGIO MCKENNA Department: Room: - Gender: Male [employer]: : 1970 Requested By: RANDALL HGOTRA Order Number: [id number] Reading MD: KEEGAN RYAN Measurements Intervals [place] Rate: 84 P: 67 NV: 162 QRS: 79 QRSD: 84 T: 55 QT: 368 QTc: 408 Interpretive Statements 1100 Sinus rhythm 3433 Septal myocardial infarction, probably old 9150 abnormal ECG Compared to ECG 08/26/2023 05:45:21 Myocardial infarct finding now present Sinus tachycardia no longer present Right-axis deviation no longer present Electronically Signed On 10-22-2023 23:09:06 EDT by KEEGAN RYAN
--- NOTE | 2023-10-22 13:37 | ED_ITS ---
HPI - URI/Sore Throat General Chief Complaint: Upper Respiratory Infection Stated Complaint: SOB Time Seen by Provider: 10/22/23 13:29 Source: patient History of Present Illness HPI Narrative: Patient is a 53-year-old male with a history of MS, COPD who wears oxygen by nasal cannula 2 L chronically presents to the emergency department by EMS for increasing weakness and shortness of breath. He states he has been having fevers in the mornings, he was seen in this emergency department 1 week ago and diagnosed with influenza after 2-week course of illness. He had an unremarkable chest x-ray at that time. He continues to have cough and congestion, no sputum production or hemoptysis. He was admitted for pneumonia and hypoxia 2 months ago to this facility with a negative CTA of the chest. He denies vomiting or diarrhea. Related Data Home Medications ?Medication ?Instructions ?Recorded ?Confirmed albuterol sulfate 2.5 mg/3 mL 2.5 mg inhalation Q6H PRN 08/26/23 10/22/23 (0.083 %) solution for nebulization shortness of breath or wheezing baclofen 20 mg tablet 20 mg PO Q8H 08/26/23 10/22/23 budesonide-formoterol HFA 160 2 puff inhalation Q12H 08/26/23 10/22/23 mcg-4.5 mcg/actuation aerosol inhaler (Symbicort) buspirone 15 mg tablet 15 mg PO TID 08/26/23 10/22/23 clonazepam 1 mg tablet 1 mg PO Q12H 08/26/23 10/22/23 duloxetine 60 mg capsule,delayed 120 mg PO DAILY 08/26/23 10/22/23 release hydralazine 10 mg tablet 10 mg PO Q12H 08/26/23 10/22/23 losartan 100 mg tablet 100 mg PO DAILY 08/26/23 10/22/23 metoprolol tartrate 50 mg tablet 75 mg PO Q12H 08/26/23 10/22/23 oxcarbazepine 300 mg tablet 300 mg PO BID 08/26/23 10/22/23 oxycodone 10 mg tablet 10 mg PO Q6H PRN pain 08/26/23 10/22/23 pantoprazole 40 mg tablet,delayed 40 mg PO BID 08/26/23 10/22/23 release pregabalin 200 mg capsule 200 mg PO Q8H 08/26/23 10/22/23 primidone 50 mg tablet 50 mg PO 08/26/23 08/26/23 quetiapine 50 mg tablet 50 mg PO .QHS 08/26/23 10/22/23 sennosides 8.6 mg tablet (senna) 17.2 mg PO BID PRN constipation 08/26/23 10/22/23 Previous Rx's ?Medication ?Instructions ?Recorded doxycycline monohydrate 100 mg 100 mg PO BID 7 days #14 tabs 10/24/23 tablet prednisone 20 mg tablet 20 mg PO BID 5 days #10 tabs 10/24/23 Allergies Allergy/AdvReac Type Severity Reaction Status Date / Time paroxetine [From Paxil] Allergy Intermediate Hallucinati Verified 10/15/23 21:10 ng venlafaxine [From Effexor] Allergy Intermediate Hallucinati Verified 10/15/23 21:10 ng Review of Systems ROS Constitutional Reports: fever; Denies: chills Ears, nose, mouth, and throat Reports: nasal congestion; Denies: throat pain Cardiovascular Denies: chest pain Respiratory Reports: shortness of breath and wheezing Gastrointestinal Denies: nausea, vomiting or diarrhea Musculoskeletal Denies: back pain Integumentary/Breast Denies: rash Neurological Denies: headache 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 due to drugs (ICD-10) ?Z79.899 - Other shelter (current) drug therapy (ICD-10) Hypomagnesemia ?E83.42 - Hypomagnesemia (ICD-10) Transaminitis ?R74.01 - Elevation of levels of liver transaminase levels (ICD-10) Hypertension ?I10 - Essential (primary) hypertension (ICD-10) Multiple sclerosis ?G35 - Multiple sclerosis (ICD-10) COPD exacerbation ?J44.1 - Chronic obstructive pulmonary disease with (acute) exacerbation (ICD-10) Acute hypoxic respiratory failure ?J96.01 - Acute respiratory failure with hypoxia (ICD-10) Chronic respiratory failure with hypoxia ?J96.11 - Chronic respiratory failure with hypoxia (ICD-10) Depression with anxiety ?F41.8 - Other specified anxiety disorders (ICD-10) Polyneuropathy ?G62.9 - Polyneuropathy, unspecified (ICD-10) Influenza ?J11.1 - Influenza due to unidentified influenza virus with other respiratory manifestations (ICD-10) Hypoxemia ?R09.02 - Hypoxemia (ICD-10) FH: cholecystectomy ?Z83.79 - Family history of other diseases of the digestive system (ICD-10) COPD (chronic obstructive pulmonary disease) ?J44.9 - Chronic obstructive pulmonary disease, unspecified (ICD-10) Family History (Updated 10/22/23 @ 16:40 by Jes Graves) Father Family history of cancer Family history of hypertension Social History (Updated 10/22/23 @ 16:42 by Jes Graves) Within the past year, how often did you have a drink containing alcohol: never Score interpretation: A score less than 4 is consistent with normal alcohol consumption. Smoking status: Former smoker Non-prescribed substance use: cannabis (any form) Previous occupational history: disabled Highest level of school completed/degree received: high school graduate Are you now , , , , never or living with a partner: In a typical week, how many times do you talk on the telephone with family, friends, or neighbors: 3 or more times per week How often do you get together with friends or relatives: 3 or more times per week How often do you attend yazidism or hoahaoism services: never Do you belong to any clubs or organizations such as yazidism groups unions, fraternal or athletic groups, or school groups: no Total score: 1 Score interpretation: A score of less than or equal to 1 indicates the most socially isolated. Little interest or pleasure in doing things: not at all Feeling down, depressed, or hopeless: not at all Feel stressed/tense/nervous/anxious/difficulty sleeping: not at all Gender Identity: male Exam Narrative Exam Narrative: Gen.: Awake, alert, in no distress Head: Normocephalic, atraumatic ENT: Moist mucous membranes Respiratory: No respiratory distress, Oxygen by nasal cannula with inspiratory and expiratory wheezing and scattered rhonchi Cardio: Regular rate and rhythm Extremities: Moves extremities equally, no pedal edema Psych: Normal mood and affect Neuro: No focal neuro deficit Skin: Warm, dry, intact Constitutional Vital Signs, click to edit/add: Last Vital Signs Temp 98.1 F 10/24/23 07:56 Pulse 94 H 10/24/23 07:56 Resp 16 10/24/23 07:56 BP 139/73 10/24/23 07:56 Pulse Ox 92 L 10/24/23 07:56 O2 Del Method Room Air 10/24/23 07:56 O2 Flow Rate 2 10/24/23 05:24 Course Course Hospital Course: 53 y o male presented with malaise, fatigue, worsening SOB and hypoxia was admitted for left lower lobe pneumonia. It is quite possible that he developed post influenza, bacterial pneumonia as he tested positive for Influenza on 10/15/23 Patient was treated with IV Levaquin and Zosyn for Pneumonia and also with IV steroids, inhaled bronchodilators for concurrent COPD exacerbation. His symptoms and clinical status improved progressively over the course of admission. Blood and sputum cultures are negative. He was felt medically stable for discharge on oral doxycycline, and prednisone taper for Pneumonia and COPD exacerbation. Patient Patient also was informed that he will need outpatient CT chest to follow up on abnormal CT chest performed in 09/05 Patient instructed to follow up with his PCP and educated on worrisome signs and symptoms for which he should seek urgent care. Vital Signs Vital signs: Vital Signs Temperature 98.5 F 10/22/23 13:32 Pulse Rate 87 10/22/23 13:32 Respiratory Rate 20 10/22/23 13:32 Blood Pressure 113/89 10/22/23 13:32 Pulse Oximetry 98 10/22/23 13:32 Oxygen Delivery Method Nasal Cannula 10/22/23 13:32 Oxygen Delivery Flow Rate 2 10/22/23 13:32 Temperature 98.1 F 10/24/23 07:56 Pulse Rate 94 H 10/24/23 07:56 Respiratory Rate 16 10/24/23 07:56 Blood Pressure 139/73 10/24/23 07:56 Pulse Oximetry 92 L 10/24/23 07:56 Oxygen Delivery Method Room Air 10/24/23 07:56 Oxygen Delivery Flow Rate 2 10/24/23 05:24 MDM - URI/Sore Throat MDM Narrative Medical decision making narrative: X-rays show a new perihilar pneumonia in the left lung, sepsis orders were obtained although the patient is not acutely septic at this time. He was given IV fluids, Levaquin, Solu-Medrol, breathing treatments. He is resting comfortably on reevaluation although still feeling short of breath with whe ezing. He will be treated for pneumonia, admitted for observation to hospitalist. Stable at time of admission. Medical Records Attestation: I reviewed the patient's medical records. Lab Data Attestation: I reviewed the patient's lab results. Labs: Lab Results 10/22/23 10/22/23 Range/Units 13:51 15:52 WBC 14.8 H (4.0-11.0) 10^3/uL RBC 3.87 L (4.70-6.10) 10^6/uL Hgb 11.4 L (14.0-18.0) g/dL Hct 35.2 L (42.0-54.0) % MCV 91.0 (80.0-94.0) fL MCH 29.5 (25.9-34.0) pg MCHC 32.4 (29.9-35.2) g/dL RDW 13.6 (11.0-15.0) % Plt Count 541 H (150-450) 10^3/uL MPV 9.4 L (9.5-13.5) fL Neut % (Auto) 83.0 H (43.0-75.0) % Lymph % (Auto) 9.1 L (20.5-60.0) % [place] % (Auto) 6.4 (1.7-12.0) % Eos % (Auto) 0.3 L (0.9-7.0) % Baso % (Auto) 0.3 (0.2-2.0) % Neut # (Auto) 12.3 H (1.4-6.5) 10^3/uL Lymph # (Auto) 1.4 (1.2-3.8) 10^3/uL [place] # (Auto) 1.0 H (0.3-0.8) 10^3/uL Eos # (Auto) 0.0 (0.0-0.7) 10^3/uL Baso # (Auto) 0.1 (0.0-0.1) 10^3/uL Abs Immat Gran (auto) 0.13 H (0.00-0.03) 10^3/uL Imm/Tot Granulo (auto) 0.9 H (0.0-0.5) % PT 10.8 (9.0-11.6) sec INR 1.02 VBG pH 7.393 (7.330-7.430) VBG pCO2 47.1 (40.0-52.0) mmHg Sodium 137 (136-145) mmol/L Potassium 3.5 (3.5-5.1) mmol/L Chloride 100 (98-107) mmol/L Carbon Dioxide 27.5 (21.0-32.0) mmol/L Anion Gap 13.0 BUN 6.0 L (7.0-18.0) mg/dL Creatinine 0.74 (0.70-1.30) mg/dL Est GFR ( Amer) >60 (>=60) Est GFR (Non-Af Amer) >60 (>=60) BUN/Creatinine Ratio 8.1 Glucose 109 H (74-106) mg/dL Lactate 1.2 (0.4-2.0) mmol/L Calcium 8.8 (8.5-10.1) mg/dL Magnesium 1.7 L (1.8-2.4) mg/dL Total Bilirubin 0.4 (0.2-1.0) mg/dL AST 84 H (15-37) U/L ALT 140 H (16-63) U/L Alkaline Phosphatase 276 H (46-116) U/L Troponin I High Sens <4.0 L (4.0-76.1) pg/mL NT-Pro-B Natriuret Pep 373.0 (<=900.0) pg/mL Total Protein 6.1 L (6.4-8.2) g/dL Albumin 2.5 L (3.4-5.0) g/dL Globulin 3.6 g/dL Albumin/Globulin Ratio 0.7 Hepatitis A IgM Ab Negative (Negative) Hep Bs Antigen Negative (Negative) Hep B Core IgM Ab Negative (Negative) Hepatitis C Antibody Non reactive (Non Reactive) Hepatitis C Interp Comment (.) Imaging Data Chest x-ray: Attestation: I have reviewed the pertinent imaging results. Radiologist's impression: ITS Impressions Chest X-Ray 10/22/23 13:36 IMPRESSION: Left infrahilar pneumonia. Electronically authenticated by: GENO MEYER Date: 10/22/2023 14:22 ECG Data Attestation: I personally reviewed and interpreted this ECG as follows: (Normal sinus rhythm at a rate of 84, no acute ST elevation or ectopy. EKG reviewed by attending physician, artifact noted) Discharge Plan Discharge Chief Complaint: Upper Respiratory Infection Clinical Impression: COPD exacerbation, Pneumonia Patient Disposition: Admitted as Observation Time of Disposition Decision: 15:04 Condition: Good Discharge Date/Time: 10/22/23 16:15
[2023-10-22] MEDS: 0.9 % SODIUM CHLORIDE 1,000 ML 999 ML IV (14:06)
[2023-10-22] MEDS: METHYLPREDNISOLONE SOD SUCC PF 125 MG/2 ML VIAL IVP (14:06)
[2023-10-22] MEDS: ALBUTEROL SULFATE 2.5 MG/3 ML VIAL NEB IH (14:11)
--- OUTSIDE RECORDS SUMMARY | 2023-10-22 14:12 | XMS_ITS | CCD ---
Author Organization [facility] Care Team Providers Care Sawyer Cork Slabs Name Role Phone Tunde Das Admitting Unavailable Tunde Das Attending Unavailable Bubba Ghotra Primary Care Unavailable BUBBA GHOTRA Primary Care Physician [phone] Heri MURRELL Referring Unavailable Heri MURRELL Admitting [...] Primary Care Unavailable Mahnaz Roth Unavailable MATY MEDEIORS Attending Unavailable BUBBA GHOTRA Attending Unavailable BUBBA GHOTRA Attending Unavailable Allergies Allergy Classification Reported Allergen(s) Allergy Type Date of Onset Reaction(s) Facility (13 sources) PARoxetine; Translations: [paroxetine] Drug Allergy Mild (qualifier value) [facility] (2 sources) PARoxetine Drug Allergy 3 [facility] (12 sources) venlafaxine Drug Allergy 3 Unknown [facility] Medications Current Medications Medication Drug Class(es) Dates Sig (Normalized) Sig (Original) [id number] 60 actuat albuterol 0.09 mg/actuat metered dose [...] procedure., # 14 tab(s), Refills(s) 0, Pharmacy: [facility]/pharmacy #[id number], 178, , 10/14/21 12:57:00 EDT, [...] procedure, # 1 tab(s), Refills(s) 0, Pharmacy: [facility]/pharmacy #[id number], 178, , 10/14/21 12:57:00 EDT, [...] 08/06/21 Status: Ordered take 1 capsule by [facility] every twenty-four hours DULoxetine HCl 60 [...] Status: Ordered take 1 capsule by mo [facility] once daily at bedtime Pregabalin 200 [...] bedtime Orally Once a day Active sennosides, alf 8.6 mg oral tablet (9 sources) Start: [...] 3 Episodic Other aftercare (1 source) Other long-term (current) drug therapy; Translations: [OTH PRISON CURRENT DRUG THERAPY] Onset: 3 Episodic Other [...] Amylase [Catalytic activity/Vol] 37 U/L Normal 25-115 [facility] Comment on above: Performed By: #### A MY, CMP, LIPA ####[facility] [address] [address]Dr. Cortez Younger CBC AUTO DIFFon 11-13-2022 BASO # 0.1 103/ul Normal 0.0-0.1 [facility] Comment on above: Performed By: #### C BC #### [facility] [address] [address] [address] Cortez Younger Basophils/100 WBC (Bld) 1.3 % Normal 0.2-2.0 [facility] Comment on above: Performed By: #### C BC #### [facility] [address] [place] [address] Dr. Cortez Younger EO # 0.1 103/ul Normal 0.0-0.7 [facility] Comment on above: Performed By: #### C BC #### [facility] [address] [address] [address] Cortez Younger Eosinophils/100 WBC (Bld) 0.9 % Normal 0.9-7.0 [facility] Comment on above: Performed By: #### C BC #### [facility] [address] [place] [address] Dr. Cortez Younger Erythrocyte distribution width (RBC) [Ratio] 12.5 % Normal 11.0-15.0 [facility] Comment on above: Performed By: #### C BC #### [facility] [address] [place] [address] Dr. Cortez Younger Hematocrit (Bld) [Volume fraction] 42.3 % Normal 42.0-54.0 [facility] Comment on above: Performed By: #### C BC #### [facility] [address] [place] [address] Dr. Cortez Younger Hemoglobin (Bld) [Mass/Vol] 15.1 g/dL Normal 14.0-18.0 [facility] Comment on above: Performed By: #### C BC #### [facility] [address] [place] [address] Dr. Cortez Younger IG # 0.04 10e3/ul Critically high 0.00-0.03 [facility] Comment on above: Performed By: #### C BC #### [facility] [address] [place] [address] Dr. Cortez Younger IG % 0.6 % Critically high 0.0-0.5 [facility] Comment on above: Performed By: #### C BC #### [facility] [address] [place] [address] Dr. Cortez Younger LYMPH # 1.4 103/ul Normal 1.2-3.8 [facility] Comment on above: Performed By: #### C BC #### [facility] [address] [place] [address] Dr. Cortez Younger Lymphocytes/100 WBC (Bld) 20.7 % Normal 20.5-60.0 [facility] Comment on above: Performed By: #### C BC #### [facility] [address] [place] [address] Dr. Cortze Younger MANUAL DIFF REQ NO Normal [facility] Comment on above: Performed By: #### C BC #### [facility] [address] [place] [address] Dr. Cortez Younger MCH (RBC) [Entitic mass] 31.6 pg Normal 25.9-34.0 [facility] Comment on above: Performed By: #### C BC #### [facility] [address] [place] [address] Dr. Cortez Younger MCHC (RBC) [Mass/Vol] 35.7 g/dL Critically high 29.9-35.2 [facility] Comment on above: Performed By: #### C BC #### [facility] [address] [place] [address] Dr. Cortez Younger MCV (RBC) [Entitic vol] 88.5 fL Normal 80.0-94.0 [facility] Comment on above: Performed By: #### C BC #### [facility] [address] [place] [address] Dr. Cortez Younger MONO # 0.5 103/ul Normal 0.3-0.8 [facility] Comment on above: Performed By: #### C BC #### [facility] [address] [place] [address] Dr. Cortez Younger Monocytes/100 WBC (Bld) 7.7 % Normal 1.7-12.0 [facility] Comment on above: Performed By: #### C BC #### [facility] [address] [place] [address] Dr. Cortez Younger NEUT # 4.8 103/ul Normal 1.4-6.5 [facility] Comment on above: Performed By: #### C BC #### [facility] [address] [place] [address] Dr. Cortez Younger Neutrophils/100 WBC (Bld) 68.8 % Normal 43.0-75.0 [facility] Comment on above: Performed By: #### C BC #### [facility] [address] [place] [address] Dr. Cortez Younger Platelet mean volume (Bld) [Entitic vol] 9.0 fL Critically low 9.5-13.5 [facility] Comment on above: Performed By: #### C BC #### [facility] [address] [address] [address] Cortez Younger PLT 384 103/ul Normal 150-450 [facility] Comment on above: Performed By: #### C BC #### [facility] [address] [address] [address] Cortez Younger RBC 4.78 106/ul Normal 4.70-6.10 [facility] Comment on above: Performed By: #### C BC #### [facility] [address] [address] [address] Cortez Younger WBC 7.0 103/ul Normal 4.0-11.0 [facility] Comment on above: Performed By: #### C BC #### [facility] [address] [place] [address] Dr. Cortez Younger ER URINE PROFILEon 3 Bilirubin Ql (U) Negative Normal NEGATIVE [facility] Comment on above: Performed By: #### E RUR ####[facility] [address] [place], [place] [address]Dr. Cortez Younger Clarity (U) CLEAR Normal CLEAR [facility] Comment on above: Performed By: #### E RUR ####[facility] [address] [place], [place] [address]Dr. Cortez Younger Color (U) LT. YELLOW Normal YELLOW [facility] Comment on above: Performed By: #### E RUR ####[facility] [address] [place], [place] [address]DrFish Younger ERUAHD A micrscopic examina tion will be performed if indicated. Normal [facility] Comment on above: Performed By: #### E RUR ####[facility] [address] [place], [place] [address]DrFish Younger Glucose Ql (U) Negative Normal NEGATIVE The [facility] Comment on above: Performed By: #### E RUR ####[facility] [address] [place], [place] [address]Dr. Cortez Younger Hemoglobin Ql (U) Negative Normal NEGATIVE The [facility] Comment on above: Performed By: #### E RUR ####[facility] Asfe[address] [place], [place] [address]Dr. Cortez Younger Ketones Ql (U) Negative Normal NEGATIVE The [facility] Comment on above: Performed By: #### E RUR ####[facility] [address] [place], [place] [address]Dr. Cortez Younger LEUKOCYTES Negative Normal NEGATIVE [facility] Comment on above: Performed By: #### E RUR ####[facility] [address] [place], [place] [address]Dr. Cortez Younger Nitrite Ql (U) Negative Normal NEGATIVE The [facility] Comment on above: Performed By: #### E RUR ####[facility] [address] [place], [place] [address]Dr. Cortze Younger pH (U) 7.5 [pH] Normal 5-9 [facility] Comment on above: Performed By: #### E RUR ####[facility] [address] [place], [place] [address]Dr. Cortez Younger SPEC GRAVITY <=1.005 Abnormal 1.005-<=1.025 The [facility] Comment on above: Performed By: #### E RUR ####[facility] [address] [place], [place] [address]Dr. Cortez Aren UA PROTEIN Negative Normal NEGATIVE/ TRACE [facility] Comment on above: Performed By: #### E RUR ####[facility] [address]we[address] [place], [place] [address]Dr. Cortez Aren UR MICRO IND NOT INDICATED Normal [facility] Comment on above: Performed By: #### E RUR ####[facility] [address] [place], [place] [address]Dr. Cortez Aren Urobilinogen Qn (U) 0.2 {Fidelia'U}/dL Normal 0.2 - 1. 0 [facility] Comment on above: Performed By: #### E RUR ####[facility] [address] [address]Dr. Cortez Younger LIPASEon 11-13-2022 Lipase [Catalytic activity/Vol] 111.0 U/L Normal 73.0-393.0 [facility] Comment on above: Performed By: #### A MY, CMP, LIPA ####[facility] [address] [address]Dr. Cortez Younger PROF 14(COMP METB)on 023 Albumin [Mass/Vol] 3.9 g/dL Normal 3.4-5.0 [facility] Comment on above: Performed By: #### A MY, CMP, LIPA ####[facility] [address] [address]Dr. Cortez Younger Albumin/Globulin [Mass ratio] 1.4 {ratio} Normal [facility] Comment on above: Performed By: #### A MY, CMP, LIPA ####[facility] [address] [place], [place] [address]Dr. Cortez Younger ALP [Catalytic activity/Vol] 70 U/L Normal 46-116 [facility] Comment on above: Performed By: #### A MY, CMP, LIPA ####[facility] [address] [place], [place] [address]Dr. Cortez Younger ALT [Catalytic activity/Vol] 24 U/L Normal 16-63 [facility] Comment on above: Performed By: #### A MY, CMP, LIPA ####[facility] [address] [address]Dr. Cortez Younger Anion gap [Moles/Vol] 9.8 mmol/L Normal [facility] Comment on above: Performed By: #### A MY, CMP, LIPA ####[facility] [address] [address]Dr. Cortez Younger AST [Catalytic activity/Vol] 12 U/L Critically low 15-37 [facility] Comment on above: Performed By: #### A MY, CMP, LIPA ####[facility] [address] [address]Dr. Cortez Younger Bilirubin [Mass/Vol] 0.3 mg/dL Normal 0.2-1.0 [facility] Comment on above: Performed By: #### A MY, CMP, LIPA ####[facility] [address] [address]Dr. Cortez Younger Calcium [Mass/Vol] 9.2 mg/dL Normal 8.5-10.1 [facility] Comment on above: Performed By: #### A MY, CMP, LIPA ####[facility] [address] [address]Dr. Cortez Younger Chloride [Moles/Vol] 98 mmol/L Normal 98-107 [facility] Comment on above: Performed By: #### A MY, CMP, LIPA ####[facility] [address] [place], [place] [address]Dr. Cortez Younger CO2 [Moles/Vol] 28.7 mmol/L Normal 21.0-32.0 The [facility] Comment on above: Performed By: #### A MY, CMP, LIPA ####[facility] [address] [address]Dr. Cortez Younger Creatinine [Mass/Vol] 0.88 mg/dL Normal 0.70-1.30 [facility] Comment on above: Performed By: #### A MY, CMP, LIPA ####[facility] [address] [address]Dr. Cortez Younger EGFR-AF IRISH >60 Normal >=60 The [facility] Comment on above: Performed By: #### A MY, CMP, LIPA ####[facility] [address] [address]Dr. Cortez Younger EGFR-NON AF IRISH >60 Normal >=60 [facility] Comment on above: Performed By: #### A MY, CMP, LIPA ####[facility] [address] [address]Dr. Cortez Younger Globulin (S) [Mass/Vol] 2.7 g/dL Normal [facility] Comment on above: Performed By: #### A MY, CMP, LIPA ####[facility] [address] [address]Dr. Cortez Younger Glucose [Mass/Vol] 105 mg/dL Normal 74-106 [facility] Comment on above: Performed By: #### A MY, CMP, LIPA ####[facility] [address] [address]Dr. Cortez Younger Potassium [Moles/Vol] 3.5 mmol/L Normal 3.5-5.1 [facility] Comment on above: Performed By: #### A MY, CMP, LIPA ####[facility] [address] [address]Dr. Cortez Younger Protein [Mass/Vol] 6.6 g/dL Normal 6.4-8.2 [facility] Comment on above: Performed By: #### A MY, CMP, LIPA ####[facility] [address] [address]Dr. Cortez Younger Sodium [Moles/Vol] 133 mmol/L Critically low 136-145 [facility] Comment on above: Performed By: #### A MY, CMP, LIPA ####[facility] [address] [address]Dr. Cortez Younger Urea nitrogen [Mass/Vol] 4.0 mg/dL Critically low 7.0-18.0 [facility] Comment on above: Performed By: #### A MY, CMP, LIPA ####[facility] [address] [address]Dr. Cortez Younger Urea nitrogen/Creatinine [Mass ratio] 4.5 mg/mg Normal [facility] Comment on above: Performed By: #### A MY, CMP, LIPA ####[facility] [address] [address]Dr. Cortez Younger XR ABD FLAT UP_PA Farideh [...] by: CRUZITO CRENSHAW Date: 2022-11-13 13:22 Normal [facility] FREE T4on 10-31-2022 Free T4 [Mass/Vol] 1.03 ng/dL Normal 0.76-1.46 [facility] Comment on above: Performed By: #### E RUR #### [facility] [address] [place] [address] Dr. Cortez Younger LIPID PROFILEon 10-31-2022 CHOL-HDL RATIO NORM SEE BELOW Normal [facility] Comment on above: Result Comment: 3.3 - 4.4 LOW RISK 4.4 - 7.1 AVERAGE RISK 7.1 - 11.0 MODERATE RISK >11.0 HIGH RISK Performed By: #### E RUR #### [facility] [address] [address] [address] Cortez Younger Cholesterol [Mass/Vol] 165 mg/dL Normal <=200 [facility] Comment on above: Performed By: #### E RUR #### [facility] [address] [address] [address] Cortez Younger Cholesterol in HDL [Mass/Vol] 59 mg/dL Normal 40-60 [facility] Comment on above: Performed By: #### E RUR #### [facility] [address] [address] [address] Cortez Younger Cholesterol in LDL [Mass/Vol] 83.8 mg/dL Normal [facility] Comment on above: Performed By: #### E RUR #### [facility] [address] [address] [address] Cortez Younger Cholesterol.total/C holesterol in HDL [Mass ratio] 2.8 {ratio} Normal [facility] Comment on above: Performed By: #### E RUR #### [facility] [address] [place] [address] Dr. Cortez Younger HDL NORMAL > or = 60 mg/dl - LO W CARDIOVASCULAR RISK <40 mg/dl - HIGH CARDIOVASCULAR RISK Normal [facility] Comment on above: Performed By: #### E RUR #### [facility] [address] [address] [address] Cortez Younger LDL CALC NORMAL SEE BELOW Normal [facility] Comment on above: Result Comment: <100 mg/dl OPTIMAL 100 - 129 mg/dl NEAR OR ABOVE OPTIMAL 130 - 159 mg/dl BORDERLINE HIGH 160 - 189 mg/dl HIGH >190 mg/dl VERY HIGH Performed By: #### E RUR #### [facility] [address] [address] [address] Cortez Younger Triglyceride [Mass/Vol] 111 mg/dL Normal <=150 [facility] Comment on above: Performed By: #### E RUR #### [facility] [address] [place] [address] Dr. Cortez Younger VLDL CALC 22.2 mg/dL Normal [facility] Comment on above: Performed By: #### E RUR #### [facility] [address] [place] [address] Dr. Cortez Younger MRI BRAIN WO W [...] VERN LU Date: 2022-10-31 13:12 Normal [facility] PROF 14(COMP METB)on 023 Albumin [Mass/Vol] 4.0 g/dL Normal 3.4-5.0 [facility] Comment on above: Performed By: #### C MP ####[facility] [address] [address]Dr. Cortez Younger Albumin/Globulin [Mass ratio] 1.3 {ratio} Normal [facility] Comment on above: Performed By: #### C MP ####[facility] [address] [place], [place] [address]Dr. Cortez Younger ALP [Catalytic activity/Vol] 66 U/L Normal 46-116 [facility] Comment on above: Performed By: #### C MP ####[facility] [address] [place], [place] [address]Dr. Cortez Younger ALT [Catalytic activity/Vol] 21 U/L Normal 16-63 [facility] Comment on above: Performed By: #### C MP ####[facility] [address] [place], [place] [address]Dr. Cortez Younger Anion gap [Moles/Vol] 9.4 mmol/L Normal [facility] Comment on above: Performed By: #### C MP ####[facility] [address] [place], [place] [address]Dr. Cortez Younger AST [Catalytic activity/Vol] 10 U/L Critically low 15-37 [facility] Comment on above: Performed By: #### C MP ####[facility] [address] [place], [place] [address]Dr. Cortez Younger Bilirubin [Mass/Vol] 0.4 mg/dL Normal 0.2-1.0 [facility] Comment on above: Performed By: #### C MP ####[facility] [address] [place], [place] [address]Dr. Cortez Younger Calcium [Mass/Vol] 9.1 mg/dL Normal 8.5-10.1 [facility] Comment on above: Performed By: #### C MP ####[facility] [address] [address]Dr. Cortez Younger Chloride [Moles/Vol] 98 mmol/L Normal 98-107 [facility] Comment on above: Performed By: #### C MP ####[facility] [address] [address]Dr. Cortez Younger CO2 [Moles/Vol] 29.8 mmol/L Normal 21.0-32.0 The [facility] Comment on above: Performed By: #### C MP ####[facility] [address] [place], [place] [address]Dr. Cortez Younger Creatinine [Mass/Vol] 0.89 mg/dL Normal 0.70-1.30 [facility] Comment on above: Performed By: #### C MP ####[facility] [address] [place], [place] [address]Dr. Cortez Younger EGFR-AF IRISH >60 Normal >=60 The [facility] Comment on above: Performed By: #### C MP ####[facility] [address] [place], [place] [address]Dr. Cortez Younger EGFR-NON AF IRISH >60 Normal >=60 [facility] Comment on above: Performed By: #### C MP ####[facility] [address] [address]Dr. Cortez Aren Globulin (S) [Mass/Vol] 3.1 g/dL Normal [facility] Comment on above: Performed By: #### C MP ####[facility] [address] [address]Dr. Cortez Aren Glucose [Mass/Vol] 109 mg/dL Critically high 74-106 [facility] Comment on above: Performed By: #### C MP ####[facility] [address] [address]Dr. Cortez Younger Potassium [Moles/Vol] 4.2 mmol/L Normal 3.5-5.1 [facility] Comment on above: Performed By: #### C MP ####[facility] [address] [address]Dr. Cortez Younger Protein [Mass/Vol] 7.1 g/dL Normal 6.4-8.2 [facility] Comment on above: Performed By: #### C MP ####[facility] [address] [address]Dr. Cortez Younger Sodium [Moles/Vol] 133 mmol/L Critically low 136-145 [facility] Comment on above: Performed By: #### C MP ####[facility] [address] [address]Dr. Cortez Younger Urea nitrogen [Mass/Vol] 7.0 mg/dL Normal 7.0-18.0 [facility] Comment on above: Performed By: #### C MP ####[facility] [address] [address]Dr. Cortez Younger Urea nitrogen/Creatinine [Mass ratio] 7.9 mg/mg Normal [facility] Comment on above: Performed By: #### C MP ####[facility] [address] [address]DrFish Younger TSHon 10-31-2022 TSH 1.574 uIU/mL Normal 0.358-3.740 [facility] Comment on above: Performed By: #### T SH #### [facility] [address] [address] [address] Cortez Younger COMPLIANCE DRUG SCREENon PDF . Normal [facility] Comment on above: Performed By: #### E RUR #### [facility] [address] [address] [address] Cortez Younger Summary FINAL Normal [facility] Comment on above: Result Comment: == TOXASSURE [...] test is not intended to distinguish between lcxhq-9-elreormjmjpyjjcesfqz, the predominant form of THC in most herbal or marijuana-based products, and jjsrm-6-phqzgatmrqtksyimaqnl. Norhydrocodone 1620 ng/mg creat Norhydrocodone is an [...] == Performed By: #### E RUR #### [facility] [address] [place] [address] Dr. Cortez Younger HYDROCODONE AND METABOLITE, URINEon 10-24-2022 Hydrocodone 55 ng/mL Normal [facility] Comment on above: Performed By: #### E RUR #### [facility] [address] [place] [address] Dr. Cortez Younger Hydromorphone Negative Normal [facility] Comment on above: Result Comment: This test was developed and its performance characteristics determined by [employer]. It has not been cleared or approved by the Food and Drug Administration. Performed By: #### E RUR #### [facility] [address] [place] [address] Dr. Cortez Younger OSMOLALITYon 10-20-2022 Osmolality QNSREP Normal [facility] Comment on above: Result Comment: Spec imen quantity insufficient for verification by repeat analysis. contacted Lynda at your facility on 10-20-2022 Performed By: #### C BC #### [facility] [address] [place] [address] Dr. Cortez Younger OSMOLALITY URINEon Osmolality, Urine 119 mOsmol/kg Normal [facility] Comment on above: Result Comment: 24 h r : 300 - 900 Random: 50 - 1400 After 12hr fluid restriction: >850 Performed By: #### O SMOU ####[facility] [address] [id number]. Cortez Aren CBC AUTO DIFFon 10-16-2022 BASO # 0.0 103/ul Normal 0.0-0.1 [facility] Comment on above: Performed By: #### C BC ####[facility] [address] [place], [place] [address]Dr. Cortez Younger Basophils/100 WBC (Bld) 0.3 % Normal 0.2-2.0 [facility] Comment on above: Performed By: #### C BC ####[facility] [address] [place], [place] [address]Dr. Cortez Younger EO # 0.0 103/ul Normal 0.0-0.7 [facility] Comment on above: Performed By: #### C BC ####[facility] [address] [place], [place] [address]Dr. Cortez Younger Eosinophils/100 WBC (Bld) 0.2 % Critically low 0.9-7.0 [facility] Comment on above: Performed By: #### C BC ####[facility] [address]xngqnsbxf[address] [place], [place] [address]Dr. Cortez Younger Erythrocyte distribution width (RBC) [Ratio] 12.1 % Normal 11.0-15.0 [facility] Comment on above: Performed By: #### C BC ####[facility] Chdpzvockt[address] [place], [place] [address]Dr. Cortez Younger Hematocrit (Bld) [Volume fraction] 45.9 % Normal 42.0-54.0 [facility] Comment on above: Performed By: #### C BC ####[facility] Grsmollvo[address] [place], [place] [address]Dr. Cortez Younger Hemoglobin (Bld) [Mass/Vol] 16.7 g/dL Normal 14.0-18.0 [facility] Comment on above: Performed By: #### C BC ####[facility] Ejlctfvors[address] [place], [place] [address]Dr. Cortez Younger IG # 0.06 10e3/ul Critically high 0.00-0.03 [facility] Comment on above: Performed By: #### C BC ####[facility] [address] [place] [address]Dr. Eleanorvalerie Younger IG % 0.5 % Normal 0.0-0.5 [facility] Comment on above: Performed By: #### C BC ####[facility] Rq[address]xvbwcmj[address] [place] [address]Dr. Eleanorvalerie Younger LYMPH # 1.5 103/ul Normal 1.2-3.8 [facility] Comment on above: Performed By: #### C BC ####[facility] [address]qu[address] [place] [phone]. Eleanorvalerie Younger Lymphocytes/100 WBC (Bld) 13.5 % Critically low 20.5-60.0 [facility] Comment on above: Performed By: #### C BC ####[facility] [address] [place] [address]Dr. Cortez Younger MANUAL DIFF REQ NO Normal [facility] Comment on above: Performed By: #### C BC ####[facility] [address] [place] [phone]. Cortez Younger MCH (RBC) [Entitic mass] 31.2 pg Normal 25.9-34.0 [facility] Comment on above: Performed By: #### C BC ####[facility] [address]wbth[address] [place] [phone]. Cortez Younger MCHC (RBC) [Mass/Vol] 36.4 g/dL Critically high 29.9-35.2 [facility] Comment on above: Performed By: #### C BC ####[facility] [address] [place] [phone]. Cortez Younger MCV (RBC) [Entitic vol] 85.6 fL Normal 80.0-94.0 [facility] Comment on above: Performed By: #### C BC ####[facility] G[address] [place], [place] [id number]. Cortez Younger MONO # 0.6 103/ul Normal 0.3-0.8 [facility] Comment on above: Performed By: #### C BC ####[facility] [address] [place], [place] [address]Pq. Cortez Younger Monocytes/100 WBC (Bld) 5.4 % Normal 1.7-12.0 [facility] Comment on above: Performed By: #### C BC ####[facility] [address] [place], [place] [address]Sl. Cortez Younger NEUT # 8.9 103/ul Critically high 1.4-6.5 The [facility] Comment on above: Performed By: #### C BC ####[facility] [address] [place] [phone]. Coretz Younger Neutrophils/100 WBC (Bld) 80.1 % Critically high 43.0-75.0 [facility] Comment on above: Performed By: #### C BC ####[facility] [address]cl[address]fl[address] [place] [phone]. Cortez Younger Platelet mean volume (Bld) [Entitic vol] 9.7 fL Normal 9.5-13.5 [facility] Comment on above: Performed By: #### C BC ####[facility] [address] [place] [phone]. Cortez Younger PLT 364 103/ul Normal 150-450 [facility] Comment on above: Performed By: #### C BC ####[facility] [address]js[address] [place] [phone]. Cortez Younger RBC 5.36 106/ul Normal 4.70-6.10 [facility] Comment on above: Performed By: #### C BC ####[facility] [address]kz[address] [place] [phone]. Cortez Younger WBC 11.1 103/ul Critically high 4.0-11.0 The [facility] Comment on above: Performed By: #### C BC ####[facility] [address]orte[address] [place] [phone]. Cortez Younger [facility]on SARS-CoV-2 (COVID-19) RNA AXEL+probe Ql (Unsp spec) Not detected Normal NOT DETECTED [facility] Comment on above: Result Comment: When diagnostic [...] for this test is supported by the [place] of Health and Human Service's declaration that [...] be used). Performed By: #### C VDTB ####[facility] [address] [place] [address]Dr. Cortez Younger DRUG SCREEN RAPID (URINE)on 10-16-2022 AMP Negative Normal NEGATIVE [facility] Comment on above: Performed By: #### C BC #### [facility] [address] [place] [address] Dr. Cortez Younger BAR Positive Abnormal NEGATIVE [facility] Comment on above: Performed By: #### C BC #### [facility] [address] [place] [address] Dr. Cortez Younger BUP Negative Normal NEGATIVE [facility] Comment on above: Performed By: #### C BC #### [facility] [address] [place] [address] [address] Cortez Younger BZO Positive Abnormal NEGATIVE [facility] Comment on above: Performed By: #### C BC #### [facility] [address] [place] [address] Dr. Cortez Younger OK Negative Normal NEGATIVE [facility] Comment on above: Performed By: #### C BC #### [facility] [address] [place] [address] Dr. Cortez Younger CUT-OFFS SEE BELOW Normal [facility] Comment on above: Result Comment: AMP (Amphetamine): 500ng/mL, BAR (Barbituates): 200 ng/mL, BZO (Benzodiazepines): 150 ng/mL, BUP (Buprenorphine): 10 ng/mL, OK (Cocaine): 150 ng/mL, mAMP (Methamphetamine): 500 ng/mL, MTD (Methadone): 200 ng/mL, OPI (Opiates): 100 ng/mL, OXY (Oxycodone): 100 ng/mL, PCP (Phencyclidine): 25 ng/mL, PPX (Propoxyphene): 300 ng/mL, THC (Cannabinoids): 50 ng/mL, TCA (Trycyclic Antidepressants): 300 ng/mL Performed By: #### C BC #### [facility] [address] [place] [address] Dr. Cortez Younger DRUG CUT HEADER DRUG CLASS TEST SYST EM CUT-OFF CONCENTRATIONS ARE FOLLOWS: Normal [facility] Comment on above: Performed By: #### C BC #### [facility] [address] [place] [address] Dr. Cortez Younger mAMP Negative Normal NEGATIVE [facility] Comment on above: Performed By: #### C BC #### [facility] [address] [place] [address] Dr. Cortez Younger MTD Negative Normal NEGATIVE [facility] Comment on above: Performed By: #### C BC #### [facility] [address] [place] [address] Dr. Cortez Younger OPI Positive Abnormal NEGATIVE [facility] Comment on above: Performed By: #### C BC #### [facility] [address] [place] [address] Dr. Cortez Younger OXY Negative Normal NEGATIVE [facility] Comment on above: Performed By: #### C BC #### [facility] [address] [place] [address] Dr. Cortez Younger PCP Negative Normal NEGATIVE [facility] Comment on above: Performed By: #### C BC #### [facility] [address] [place] [address] Dr. Cortez Younger PPX Negative Normal NEGATIVE [facility] Comment on above: Performed By: #### C BC #### [facility] [address] [place] [address] [address] Cortez Younger TCA Negative Normal NEGATIVE [facility] Comment on above: Performed By: #### C BC #### [facility] [address] [place] [address] [address] Cortez Younger THC Positive Abnormal NEGATIVE [facility] Comment on above: Performed By: #### C BC #### [facility] [address] [place] [address] [address] Cortez Younger ER URINE PROFILEon 3 Bilirubin Ql (U) Negative Normal NEGATIVE [facility] Comment on above: Performed By: #### C BC #### [facility] [address] [place] [address] Dr. Cortez Younger Clarity (U) CLEAR Normal CLEAR [facility] Comment on above: Performed By: #### C BC #### [facility] [address] [place] [address] Dr. Cortez Younger Color (U) LT. YELLOW Normal YELLOW [facility] Comment on above: Performed By: #### C BC #### [facility] [address] [place] [address] Dr. Cortez Younger ERUYONYD A micrscopic examina tion will be performed if indicated. Normal [facility] Comment on above: Performed By: #### C BC #### [facility] [address] [place] [address] Dr. Cortez Younger Glucose Ql (U) Negative Normal NEGATIVE The [facility] Comment on above: Performed By: #### C BC #### [facility] [address] [place] [address] Dr. Cortez Younger Hemoglobin Ql (U) Negative Normal NEGATIVE The [facility] Comment on above: Performed By: #### C BC #### [facility] [address] [place] [address] Dr. Cortez Younger Ketones Ql (U) Negative Normal NEGATIVE [facility] Comment on above: Performed By: #### C BC #### [facility] [address] [address] [address] Cortez Younger LEUKOCYTES Negative Normal NEGATIVE [facility] Comment on above: Performed By: #### C BC #### [facility] [address] [place] [address] Dr. Cortez Younger Nitrite Ql (U) Negative Normal NEGATIVE [facility] Comment on above: Performed By: #### C BC #### [facility] [address] [place] [address] Dr. Cortez Younger pH (U) 7.5 [pH] Normal 5-9 [facility] Comment on above: Performed By: #### C BC #### [facility] [address] [place] [address] Dr. Cortez Younger SPEC GRAVITY <=1.005 Abnormal 1.005-<=1.025 [facility] Comment on above: Performed By: #### C BC #### [facility] [address] [place] [address] Dr. Cortez Younger UA PROTEIN Negative Normal NEGATIVE/ TRACE [facility] Comment on above: Performed By: #### C BC #### [facility] [address] [place] [address] Dr. Cortez Younger UR MICRO IND NOT INDICATED Normal [facility] Comment on above: Performed By: #### C BC #### [facility] [address] [place] [address] Dr. Cortez Younger Urobilinogen Qn (U) 0.2 {Fidelia'U}/dL Normal 0.2 - 1. 0 [facility] Comment on above: Performed By: #### C BC #### [facility] [address] [place] [address] Dr. Cortez Younger NAon 10-16-2022 Sodium [Moles/Vol] 125 mmol/L Critically low 136-145 Th [facility] Comment on above: Performed By: #### E RUR #### [facility] [address] [place] [address] Dr. Cortez Younger POTASSIUM URINEon 10-16-2022 UR POTASSIUM 11.8 mmol/L Normal [facility] Comment on above: Performed By: #### K U ####[facility] [address] [place], [place] [address]Dr. Cortez Younger PROF 14(COMP METB)on 023 Albumin [Mass/Vol] 4.2 g/dL Normal 3.4-5.0 [facility] Comment on above: Performed By: #### E RUR #### [facility] [address] [place] [address] [address] Cortez Younger Albumin/Globulin [Mass ratio] 1.3 {ratio} Normal [facility] Comment on above: Performed By: #### E RUR #### [facility] [address] [place] [address] [address] Cortez Younger ALP [Catalytic activity/Vol] 75 U/L Normal 46-116 [facility] Comment on above: Performed By: #### E RUR #### [facility] [address] [place] [address] [address] Cortez Younger ALT [Catalytic activity/Vol] 23 U/L Normal 16-63 [facility] Comment on above: Performed By: #### E RUR #### [facility] [address] [place] [address] [address] Cortez Younger Anion gap [Moles/Vol] 9.7 mmol/L Normal [facility] Comment on above: Performed By: #### E RUR #### [facility] [address] [place] [address] [address] Cortez Younger AST [Catalytic activity/Vol] 16 U/L Normal 15-37 [facility] Comment on above: Performed By: #### E RUR #### [facility] [address] [place] [address] [address] Cortez Younger Bilirubin [Mass/Vol] 0.4 mg/dL Normal 0.2-1.0 [facility] Comment on above: Performed By: #### E RUR #### [facility] [address] [place] [address] [address] Cortez Younger Calcium [Mass/Vol] 9.1 mg/dL Normal 8.5-10.1 [facility] Comment on above: Performed By: #### E RUR #### [facility] [address] [place] [address] [address] Cortez Younger Chloride [Moles/Vol] 88 mmol/L Critically low 98-107 [facility] Comment on above: Performed By: #### E RUR #### [facility] [address] [place] [address] [address] Cortez Younger CO2 [Moles/Vol] 26.5 mmol/L Normal 21.0-32.0 [facility] Comment on above: Performed By: #### E RUR #### [facility] [address] [place] [address] Dr. Cortez Younger Creatinine [Mass/Vol] 0.73 mg/dL Normal 0.70-1.30 [facility] Comment on above: Performed By: #### E RUR #### [facility] [address] [place] [address] Dr. Cortez Younger EGFR-AF IRISH >60 Normal >=60 [facility] Comment on above: Performed By: #### E RUR #### [facility] [address] [place] [address] Dr. Cortez Younger EGFR-NON AF IRISH >60 Normal >=60 [facility] Comment on above: Performed By: #### E RUR #### [facility] [address] [place] [address] Dr. Cortez Younger Globulin (S) [Mass/Vol] 3.2 g/dL Normal [facility] Comment on above: Performed By: #### E RUR #### [facility] [address] [place] [address] Dr. Cortez Younger Glucose [Mass/Vol] 109 mg/dL Critically high 74-106 T [facility] Comment on above: Performed By: #### E RUR #### [facility] [address] [place] [address] Dr. Cortez Younger Potassium [Moles/Vol] 4.2 mmol/L Normal 3.5-5.1 [facility] Comment on above: Performed By: #### E RUR #### [facility] [address] [place] [address] [address] Cortez Younger Protein [Mass/Vol] 7.4 g/dL Normal 6.4-8.2 [facility] Comment on above: Performed By: #### E RUR #### [facility] [address] [place] [address] [address] Cortez Younger Sodium [Moles/Vol] 120 mmol/L Critically low 136-145 Th [facility] Comment on above: Performed By: #### E RUR #### [facility] [address] [place] [address] [address] Cortez Younger Urea nitrogen [Mass/Vol] 7.0 mg/dL Normal 7.0-18.0 [facility] Comment on above: Performed By: #### E RUR #### [facility] [address] [place] [address] [address] Cortez Younger Urea nitrogen/Creatinine [Mass ratio] 9.6 mg/mg Normal [facility] Comment on above: Performed By: #### E RUR #### [facility] [address] [place] [address] [address] Cortez Younger SODIUM RANDOM URINEon 2022 Sodium (U) [Moles/Vol] 26 mmol/L Critically low 30-90 [facility] Comment on above: Performed By: #### N AU ####[facility] [address] [place] [address]Dr. Cortez Younger ACETONE SERUMon 10-07-2022 ACETONE Negative Normal NEGATIVE [facility] Comment on above: Performed By: #### E RUR #### [facility] [address] [place] [address] [address] Cortez Younger CBC AUTO DIFFon 10-07-2022 BASO # 0.1 103/ul Normal 0.0-0.1 [facility] Comment on above: Performed By: #### C BC ####[facility] [address] [place] [address]Dr. Cortez Younger Basophils/100 WBC (Bld) 0.8 % Normal 0.2-2.0 [facility] Comment on above: Performed By: #### C BC ####[facility] [address] [place] [address]Dr. Cortez Younger EO # 0.0 103/ul Normal 0.0-0.7 [facility] Comment on above: Performed By: #### C BC ####[facility] [address] [place] [address]Dr. Cortez Younger Eosinophils/100 WBC (Bld) 0.2 % Critically low 0.9-7.0 [facility] Comment on above: Performed By: #### C BC ####[facility] [address] [place], [place] [address]Dr. Cortez Younger Erythrocyte distribution width (RBC) [Ratio] 12.1 % Normal 11.0-15.0 [facility] Comment on above: Performed By: #### C BC ####[facility] Ngvlilgmzw[address] [place], [place] [address]Dr. Cortez Younger Hematocrit (Bld) [Volume fraction] 42.9 % Normal 42.0-54.0 [facility] Comment on above: Performed By: #### C BC ####[facility] [address]cpqeiiwr[address] [place], [place] [address]Dr. Cortez Younger Hemoglobin (Bld) [Mass/Vol] 15.4 g/dL Normal 14.0-18.0 [facility] Comment on above: Performed By: #### C BC ####[facility] [address]leap[address] [place], [place] [address]Dr. Cortez Younger IG # 0.04 10e3/ul Critically high 0.00-0.03 [facility] Comment on above: Performed By: #### C BC ####[facility] [address]kwirss[address] [place], [place] [address]Dr. Cortez Younger IG % 0.4 % Normal 0.0-0.5 [facility] Comment on above: Performed By: #### C BC ####[facility] [address] [place], [place] [address]Dr. Cortez Younger LYMPH # 1.3 103/ul Normal 1.2-3.8 [facility] Comment on above: Performed By: #### C BC ####[facility] [address] [place] [address]Dr. Cortez Aren Lymphocytes/100 WBC (Bld) 13.7 % Critically low 20.5-60.0 [facility] Comment on above: Performed By: #### C BC ####[facility] [address] [place] [phone]. Cortez Younger MANUAL DIFF REQ NO Normal [facility] Comment on above: Performed By: #### C BC ####[facility] Hz[address]bpze[address] [place] [phone]. Eleanorvalerie Younger MCH (RBC) [Entitic mass] 31.4 pg Normal 25.9-34.0 [facility] Comment on above: Performed By: #### C BC ####[facility] [address]nt[address]lt[address] [place], [place] [address]Dr. Cortez Younger MCHC (RBC) [Mass/Vol] 35.9 g/dL Critically high 29.9-35.2 [facility] Comment on above: Performed By: #### C BC ####[facility] [address] [place] [address]Dr. Eleanorvalerie Younger MCV (RBC) [Entitic vol] 87.4 fL Normal 80.0-94.0 [facility] Comment on above: Performed By: #### C BC ####[facility] [address]wkafxzm[address] [place], [place] [address]Dr. Cortez Younger MONO # 0.4 103/ul Normal 0.3-0.8 [facility] Comment on above: Performed By: #### C BC ####[facility] [address]xyenh[address] [place], [place] [address]Dr. Cortez Younger Monocytes/100 WBC (Bld) 3.6 % Normal 1.7-12.0 [facility] Comment on above: Performed By: #### C BC ####[facility] [address] [place], [place] [address]Dr. Cortez Younger NEUT # 7.9 103/ul Critically high 1.4-6.5 [facility] Comment on above: Performed By: #### C BC ####[facility] [address] [place] [address]Dr. Cortez Younger Neutrophils/100 WBC (Bld) 81.3 % Critically high 43.0-75.0 [facility] Comment on above: Performed By: #### C BC ####[facility] [address] [place] [phone]. Cortez Younger Platelet mean volume (Bld) [Entitic vol] 8.8 fL Critically low 9.5-13.5 [facility] Comment on above: Performed By: #### C BC ####[facility] [address] [place] [phone]. Cortez Younger PLT 371 103/ul Normal 150-450 [facility] Comment on above: Performed By: #### C BC ####[facility] [address] [place] [address]Dr. Cortez Younger RBC 4.91 106/ul Normal 4.70-6.10 [facility] Comment on above: Performed By: #### C BC ####[facility] [address]rttx[address] [place] [address]Dr. Cortez Younger WBC 9.8 103/ul Normal 4.0-11.0 [facility] Comment on above: Performed By: #### C BC ####[facility] [address] [place] [phone]. Cortez Younger CRPon 10-07-2022 CRP [Mass/Vol] mg/L Normal <=1.0 The [facility] Comment on above: Performed By: #### L IPA, TSH, CRP, CMP ####[facility] [address] [place] [phone] Younger ER URINE PROFILEon 3 Bilirubin Ql (U) Negative Normal NEGATIVE The [facility] Comment on above: Performed By: #### E RUR #### [facility] [address] [place], [place] [address] Dr. Cortez Younger Clarity (U) CLEAR Normal CLEAR [facility] Comment on above: Performed By: #### E RUR #### [facility] [address] [place] [address] [address] Cortez Younger Color (U) LT. YELLOW Normal YELLOW [facility] Comment on above: Performed By: #### E RUR #### [facility] [address] [place] [address] Dr. Cortez Younger ERUAHKuldeep A micrscopic examina tion will be performed if indicated. Normal [facility] Comment on above: Performed By: #### E RUR #### [facility] [address] [place] [address] Dr. Cortez Younger Glucose Ql (U) Negative Normal NEGATIVE [facility] Comment on above: Performed By: #### E RUR #### [facility] [address] [place] [address] Dr. Cortez Younger Hemoglobin Ql (U) Negative Normal NEGATIVE [facility] Comment on above: Performed By: #### E RUR #### [facility] [address] [place] [address] Dr. Cortez Younger Ketones Ql (U) Negative Normal NEGATIVE [facility] Comment on above: Performed By: #### E RUR #### [facility] [address] [place] [address] Dr. Cortez Younger LEUKOCYTES Negative Normal NEGATIVE [facility] Comment on above: Performed By: #### E RUR #### [facility] [address] [place] [address] Dr. Cortez Younger Nitrite Ql (U) Negative Normal NEGATIVE [facility] Comment on above: Performed By: #### E RUR #### [facility] [address] [place] [address] Dr. Cortez Younger pH (U) 7.5 [pH] Normal 5-9 [facility] Comment on above: Performed By: #### E RUR #### [facility] [address] [place] [address] Dr. Cortez Younger SPEC GRAVITY <=1.005 Abnormal 1.005-<=1.025 [facility] Comment on above: Performed By: #### E RUR #### [facility] [address] [place] [address] [address] Cortez Younger UA PROTEIN Negative Normal NEGATIVE/ TRACE [facility] Comment on above: Performed By: #### E RUR #### [facility] [address] [place] [address] [address] Cortez Younger UR MICRO IND NOT INDICATED Normal The [facility] Comment on above: Performed By: #### E RUR #### [facility] [address] [place] [address] [address] Cortez Younger Urobilinogen Qn (U) 0.2 {Fidelia'U}/dL Normal 0.2 - 1. 0 [facility] Comment on above: Performed By: #### E RUR #### [facility] [address] [place] [address] Dr. Cortez Younger LACTATE/LACTIC ACIDon 2022 Lactate [Moles/Vol] 1.0 mmol/L Normal 0.4-2.0 [facility] Comment on above: Performed By: #### E RUR #### [facility] [address] [address] [address] Cortez Younger LIPASEon 10-07-2022 Lipase [Catalytic activity/Vol] 84.0 U/L Normal 73.0-393.0 [facility] Comment on above: Performed By: #### L IPA, TSH, CRP, CMP ####[facility] [address] [address]DrFish Younger PROF 14(COMP METB)on 023 Albumin [Mass/Vol] 3.9 g/dL Normal 3.4-5.0 [facility] Comment on above: Performed By: #### L IPA, TSH, CRP, CMP ####[facility] [address] [address]Dr. Cortez Younger Albumin/Globulin [Mass ratio] 1.7 {ratio} Normal [facility] Comment on above: Performed By: #### L IPA, TSH, CRP, CMP ####[facility] [address] [address]Dr. Cortez Younger ALP [Catalytic activity/Vol] 78 U/L Normal 46-116 [facility] Comment on above: Performed By: #### L IPA, TSH, CRP, CMP ####[facility] [address] [address]Dr. Cortez Younger ALT [Catalytic activity/Vol] 28 U/L Normal 16-63 [facility] Comment on above: Performed By: #### L IPA, TSH, CRP, CMP ####[facility] [address] [address]Dr. Cortez Younger Anion gap [Moles/Vol] 12.1 mmol/L Normal [facility] Comment on above: Performed By: #### L IPA, TSH, CRP, CMP ####[facility] [address] [place], [place] [address]Dr. Cortez Younger AST [Catalytic activity/Vol] 15 U/L Normal 15-37 [facility] Comment on above: Performed By: #### L IPA, TSH, CRP, CMP ####[facility] [address] [place], [place] [address]Dr. Cortez Younger Bilirubin [Mass/Vol] 0.5 mg/dL Normal 0.2-1.0 [facility] Comment on above: Performed By: #### L IPA, TSH, CRP, CMP ####[facility] [address] [address]Dr. Cortez Younger Calcium [Mass/Vol] 8.6 mg/dL Normal 8.5-10.1 [facility] Comment on above: Performed By: #### L IPA, TSH, CRP, CMP ####[facility] [address] [address]Dr. Cortez Younger Chloride [Moles/Vol] 100 mmol/L Normal 98-107 [facility] Comment on above: Performed By: #### L IPA, TSH, CRP, CMP ####[facility] [address] [address]Dr. Cortez Younger CO2 [Moles/Vol] 28.8 mmol/L Normal 21.0-32.0 [facility] Comment on above: Performed By: #### L IPA, TSH, CRP, CMP ####[facility] [address] [address]Dr. Cortez Younger Creatinine [Mass/Vol] 0.70 mg/dL Normal 0.70-1.30 [facility] Comment on above: Performed By: #### L IPA, TSH, CRP, CMP ####[facility] [address] [place], [place] [address]Dr. Cortez Younger EGFR-AF IRISH >60 Normal >=60 [facility] Comment on above: Performed By: #### L IPA, TSH, CRP, CMP ####[facility] [address] [place], [place] [address]Dr. Cortez Aren EGFR-NON AF IRISH >60 Normal >=60 [facility] Comment on above: Performed By: #### L IPA, TSH, CRP, CMP ####[facility] [address] [place], [place] [address]Dr. Cortez Younger Globulin (S) [Mass/Vol] 2.3 g/dL Normal [facility] Comment on above: Performed By: #### L IPA, TSH, CRP, CMP ####[facility] [address] [place], [place] [address]Dr. Cortez Aren Glucose [Mass/Vol] 111 mg/dL Critically high 74-106 T [facility] Comment on above: Performed By: #### L IPA, TSH, CRP, CMP ####[facility] [address] [place], [place] [address]Dr. Cortez Younger Potassium [Moles/Vol] 3.9 mmol/L Normal 3.5-5.1 [facility] Comment on above: Performed By: #### L IPA, TSH, CRP, CMP ####[facility] [address] [place], [place] [address]Dr. Cortez Younger Protein [Mass/Vol] 6.2 g/dL Critically low 6.4-8.2 Th [facility] Comment on above: Performed By: #### L IPA, TSH, CRP, CMP ####[facility] [address] [place], [place] [address]Dr. Cortez Younger Sodium [Moles/Vol] 137 mmol/L Normal 136-145 [facility] Comment on above: Performed By: #### L IPA, TSH, CRP, CMP ####[facility] [address] [id number]. Cortez Younger Urea nitrogen [Mass/Vol] 6.0 mg/dL Critically low 7.0-18.0 [facility] Comment on above: Performed By: #### L IPA, TSH, CRP, CMP ####[facility] [address] [address]Dr. Cortez Younger Urea nitrogen/Creatinine [Mass ratio] 8.6 mg/mg Normal [facility] Comment on above: Performed By: #### L IPA, TSH, CRP, CMP ####[facility] [address] [id number]. Cortez Younger SED RATE [facility] 2022 SED RATE <1 Normal <=20 [facility] Comment on above: Performed By: #### C BC #### [facility] [address] [address] [address] Cortez Younger TSHon 10-07-2022 TSH 1.031 uIU/mL Normal 0.358-3.740 [facility] Comment on above: Performed By: #### L IPA, TSH, CRP, CMP ####[facility] [address] [address]Dr. Cortez Younger [facility]13 SARS-CoV-2 (COVID-19) RNA AXEL+probe Ql (Unsp spec) Not detected Normal NOT DETECTED [facility] Comment on above: Result Comment: When diagnostic [...] for this test is supported by the [place] of [employer] and Human Service's declaration that [...] used). Performed By: #### C BC #### [facility] [address] [place] [address] Dr. Cortez Younger INFLUENZA A AND B [facility] 05-28 INFLUANEGH SEE BELOW Normal [facility] Comment on above: Result Comment: Nega tive for Flu A protein angiten. Infection due to Flu A cannot be ruled out. Flu A angiten in the sample may be below the detection limit of the test. Performed By: #### E RUR #### [facility] [address] [place] [address] Dr. Cortez Younger INFLUBNEGH SEE BELOW Normal [facility] Comment on above: Result Comment: Nega tive for Flu B protein antigen. Infection due to Flu B cannot be ruled out. Flu B antigen in the sample may be below the detection limit of the test. Performed By: #### E RUR #### [facility] [address] [place] [address] Dr. Cortez Younger INFLUENZA A AG Negative Normal NEGATIVE SEE COMMENT [facility] Comment on above: Performed By: #### E RUR #### [facility] [address] [place] [address] Dr. Cortez Younger INFLUENZA B AG Negative Normal NEGATIVE SEE COMMENT [facility] Comment on above: Performed By: #### E RUR #### [facility] [address] [place] [address] Dr. Cortez Younger INTERNAL CONTROLS Within Normal Limits Normal Wi thin Normal Limits [facility] Comment on above: Performed By: #### E RUR #### [facility] [address] [place] [address] Dr. Cortez Younger XR CHEST 1 Von [...] KAIA SHEIKH Date: 2022-05-28 13:36 Normal [facility] PROF 14(COMP METB)on 022 Albumin [Mass/Vol] 3.9 g/dL Normal 3.4-5.0 [facility] Comment on above: Performed By: #### C MP #### [facility] [address] [place] [address] Dr. Cortez Younger Albumin/Globulin [Mass ratio] 1.4 {ratio} Normal [facility] Comment on above: Performed By: #### C MP #### [facility] [address] [place] [address] Dr. Cortez Younger ALP [Catalytic activity/Vol] 81 U/L Normal 46-116 [facility] Comment on above: Performed By: #### C MP #### [facility] [address] [place] [address] Dr. Cortez Younger ALT [Catalytic activity/Vol] 19 U/L Normal 16-63 [facility] Comment on above: Performed By: #### C MP #### [facility] [address] [place] [address] Dr. Cortez Younger Anion gap [Moles/Vol] 12.3 mmol/L Normal [facility] Comment on above: Performed By: #### C MP #### [facility] [address] [place] [address] Dr. Cortez Younger AST [Catalytic activity/Vol] 15 U/L Normal 15-37 [facility] Comment on above: Performed By: #### C MP #### [facility] [address] [place] [address] Dr. Cortez Younger Bilirubin [Mass/Vol] 0.3 mg/dL Normal 0.2-1.0 [facility] Comment on above: Performed By: #### C MP #### [facility] [address] [address] [address] Cortez Younger Calcium [Mass/Vol] 8.6 mg/dL Normal 8.5-10.1 [facility] Comment on above: Performed By: #### C MP #### [facility] [address] [address] [address] Cortez Younger Chloride [Moles/Vol] 101 mmol/L Normal 98-107 [facility] Comment on above: Performed By: #### C MP #### [facility] [address] [address] [address] Cortez Younger CO2 [Moles/Vol] 30.6 mmol/L Normal 21.0-32.0 [facility] Comment on above: Performed By: #### C MP #### [facility] [address] [place] [address] Dr. Cortez Younger Creatinine [Mass/Vol] 0.75 mg/dL Normal 0.70-1.30 [facility] Comment on above: Performed By: #### C MP #### [facility] [address] [place] [address] Dr. Cortez Younger EGFR-AF IRISH >60 Normal >=60 [facility] Comment on above: Performed By: #### C MP #### [facility] [address] [place] [address] Dr. Cortez Younger EGFR-NON AF IRISH >60 Normal >=60 [facility] Comment on above: Performed By: #### C MP #### [facility] [address] [place] [address] Dr. Cortez Younger Globulin (S) [Mass/Vol] 2.8 g/dL Normal [facility] Comment on above: Performed By: #### C MP #### [facility] [address] [place] [address] Dr. Cortez Younger Glucose [Mass/Vol] 98 mg/dL Normal 74-106 [facility] Comment on above: Performed By: #### C MP #### [facility] [address] [place] [address] Dr. Cortez Younger Potassium [Moles/Vol] 3.9 mmol/L Normal 3.5-5.1 [facility] Comment on above: Performed By: #### C MP #### [facility] [address] [place] [address] Dr. Cortez Younger Protein [Mass/Vol] 6.7 g/dL Normal 6.4-8.2 [facility] Comment on above: Performed By: #### C MP #### [facility] [address] [address] [address] Cortez Younger Sodium [Moles/Vol] 140 mmol/L Normal 136-145 [facility] Comment on above: Performed By: #### C MP #### [facility] [address] [place] [address] Dr. Cortez Younger Urea nitrogen [Mass/Vol] 5.0 mg/dL Critically low 7.0-18.0 [facility] Comment on above: Performed By: #### C MP #### [facility] [address] [place] [address] Dr. Cortez Younger Urea nitrogen/Creatinine [Mass ratio] 6.7 mg/mg Normal [facility] Comment on above: Performed By: #### C MP #### [facility] [address] [place] [address] Dr. Cortez Younger CBC AUTO DIFFon 01-18-2022 BASO # 0.0 103/ul Normal 0.0-0.1 [facility] Comment on above: Performed By: #### C BC #### [facility] [address] [place] [address] Dr. Cortez Younger Basophils/100 WBC (Bld) 0.1 % Critically low 0.2-2.0 [facility] Comment on above: Performed By: #### C BC #### [facility] [address] [place] [address] Dr. Cortez Younger EO # 0.0 103/ul Normal 0.0-0.7 [facility] Comment on above: Performed By: #### C BC #### [facility] [address] [place] [address] Dr. Cortez Younger Eosinophils/100 WBC (Bld) 0.0 % Critically low 0.9-7.0 [facility] Comment on above: Performed By: #### C BC #### [facility] [address] [place] [address] Dr. Cortez Younger Erythrocyte distribution width (RBC) [Ratio] 12.8 % Normal 11.0-15.0 [facility] Comment on above: Performed By: #### C BC #### [facility] [address] [place] [address] Dr. Cortez Younger Hematocrit (Bld) [Volume fraction] 42.7 % Normal 42.0-54.0 [facility] Comment on above: Performed By: #### C BC #### [facility] [address] [place] [address] Dr. Cortez Younger Hemoglobin (Bld) [Mass/Vol] 15.3 g/dL Normal 14.0-18.0 [facility] Comment on above: Performed By: #### C BC #### [facility] [address] [place] [address] Dr. Cortez Younger IG # 0.10 10e3/ul Critically high 0.00-0.03 [facility] Comment on above: Performed By: #### C BC #### [facility] [address] [place] [address] Dr. Cortez Younger IG % 0.7 % Critically high 0.0-0.5 [facility] Comment on above: Performed By: #### C BC #### [facility] [address] [place] [address] Dr. Cortez Younger LYMPH # 1.9 103/ul Normal 1.2-3.8 [facility] Comment on above: Performed By: #### C BC #### [facility] [address] [place] [address] Dr. Cortez Younger Lymphocytes/100 WBC (Bld) 13.5 % Critically low 20.5-60.0 [facility] Comment on above: Performed By: #### C BC #### [facility] [address] [place] [address] Dr. Cortez Younger MANUAL DIFF REQ NO Normal [facility] Comment on above: Performed By: #### C BC #### [facility] [address] [place] [address] Dr. Cortez Younger MCH (RBC) [Entitic mass] 31.4 pg Normal 25.9-34.0 [facility] Comment on above: Performed By: #### C BC #### [facility] [address] [place] [address] Dr. Cortez Younger MCHC (RBC) [Mass/Vol] 35.8 g/dL Critically high 29.9-35.2 [facility] Comment on above: Performed By: #### C BC #### [facility] [address] [place] [address] Dr. Cortez Younger MCV (RBC) [Entitic vol] 87.5 fL Normal 80.0-94.0 [facility] Comment on above: Performed By: #### C BC #### [facility] [address] [place] [address] Dr. Cortez Yonuger MONO # 0.8 103/ul Normal 0.3-0.8 [facility] Comment on above: Performed By: #### C BC #### [facility] [address] [place] [address] Dr. Cortez Younger Monocytes/100 WBC (Bld) 5.6 % Normal 1.7-12.0 [facility] Comment on above: Performed By: #### C BC #### [facility] [address] [place] [address] Dr. Coretz Younger NEUT # 11.4 103/ul Critically high 1.4-6.5 [facility] Comment on above: Performed By: #### C BC #### [facility] [address] [place] [address] Dr. Cortez Younger Neutrophils/100 WBC (Bld) 80.1 % Critically high 43.0-75.0 [facility] Comment on above: Performed By: #### C BC #### [facility] [address] [place] [address] Dr. Cortez Younger Platelet mean volume (Bld) [Entitic vol] 8.4 fL Critically low 9.5-13.5 [facility] Comment on above: Performed By: #### C BC #### [facility] [address] [place] [address] Dr. Cortez Younger PLT 352 103/ul Normal 150-450 [facility] Comment on above: Performed By: #### C BC #### [facility] [address] [place] [address] Dr. Cortez Younger RBC 4.88 106/ul Normal 4.70-6.10 [facility] Comment on above: Performed By: #### C BC #### [facility] [address] [place] [address] Dr. Cortez Younger WBC 14.2 103/ul Critically high 4.0-11.0 [facility] Comment on above: Performed By: #### C BC #### [facility] [address] [place] [address] Dr. Cortez Younger PROF 14(COMP METB)on 022 Albumin [Mass/Vol] 4.1 g/dL Normal 3.4-5.0 [facility] Comment on above: Performed By: #### C MP #### [facility] [address] [place] [address] Dr. Cortez Younger Albumin/Globulin [Mass ratio] 1.5 {ratio} Normal [facility] Comment on above: Performed By: #### C MP #### [facility] [address] [place] [address] Dr. Cortez Younger ALP [Catalytic activity/Vol] 77 U/L Normal 46-116 [facility] Comment on above: Performed By: #### C MP #### [facility] [address] [place] [address] Dr. Cortez Younger ALT [Catalytic activity/Vol] 19 U/L Normal 16-63 [facility] Comment on above: Performed By: #### C MP #### [facility] [address] [place] [address] Dr. Cortez Younger Anion gap [Moles/Vol] 10.6 mmol/L Normal [facility] Comment on above: Performed By: #### C MP #### [facility] [address] [address] [address] Cortez Younger AST [Catalytic activity/Vol] 8 U/L Critically low 15-37 [facility] Comment on above: Performed By: #### C MP #### [facility] [address] [address] [address] Cortez Younger Bilirubin [Mass/Vol] 0.3 mg/dL Normal 0.2-1.0 [facility] Comment on above: Performed By: #### C MP #### [facility] [address] [address] [address] Cortez Younger Calcium [Mass/Vol] 8.9 mg/dL Normal 8.5-10.1 [facility] Comment on above: Performed By: #### C MP #### [facility] [address] [address] [address] Cortez Younger Chloride [Moles/Vol] 91 mmol/L Critically low 98-107 [facility] Comment on above: Performed By: #### C MP #### [facility] [address] [address] [address] Cortez Younger CO2 [Moles/Vol] 30.1 mmol/L Normal 21.0-32.0 [facility] Comment on above: Performed By: #### C MP #### [facility] [address] [address] [address] Cortez Younger Creatinine [Mass/Vol] 0.88 mg/dL Normal 0.70-1.30 [facility] Comment on above: Performed By: #### C MP #### [facility] [address] [address] [address] Cortez Younger EGFR-AF IRISH >60 Normal >=60 [facility] Comment on above: Performed By: #### C MP #### [facility] [address] [address] [address] Cortez Younger EGFR-NON AF IRISH >60 Normal >=60 [facility] Comment on above: Performed By: #### C MP #### [facility] [address] [address] [address] Cortez Younger Globulin (S) [Mass/Vol] 2.8 g/dL Normal [facility] Comment on above: Performed By: #### C MP #### [facility] [address] [address] [address] Cortez Younger Glucose [Mass/Vol] 112 mg/dL Critically high 74-106 T [facility] Comment on above: Performed By: #### C MP #### [facility] [address] [address] [address] Cortez Younger Potassium [Moles/Vol] 3.7 mmol/L Normal 3.5-5.1 [facility] Comment on above: Performed By: #### C MP #### [facility] [address] [address] [address] Cortez Younger Protein [Mass/Vol] 6.9 g/dL Normal 6.4-8.2 [facility] Comment on above: Performed By: #### C MP #### [facility] [address] [address] [address] Cortez Younger Sodium [Moles/Vol] 128 mmol/L Critically low 136-145 Th [facility] Comment on above: Performed By: #### C MP #### [facility] [address] [address] [address] Cortez Younger Urea nitrogen [Mass/Vol] 9.0 mg/dL Normal 7.0-18.0 [facility] Comment on above: Performed By: #### C MP #### [facility] [address] [address] [address] Cortez Younger Urea nitrogen/Creatinine [Mass ratio] 10.2 mg/mg Normal [facility] Comment on above: Performed By: #### C MP #### [facility] [address] [address] [address] Cortez Younger SED RATE [facility] 2021 SED RATE <1 Normal <=20 [facility] Comment on above: Performed By: #### S EDR ####[facility] [address] [address]Dr. Cortez Younger UA RANDOMon 01-18-2022 Bilirubin Ql (U) Negative Normal NEGATIVE [facility] Comment on above: Performed By: #### E RUR #### [facility] [address] [place] [address] Dr. Cortez Younger Clarity (U) CLEAR Normal CLEAR [facility] Comment on above: Performed By: #### E RUR #### [facility] [address] [place] [address] Dr. Cortez Younger Color (U) LT. YELLOW Normal YELLOW [facility] Comment on above: Performed By: #### E RUR #### [facility] [address] [place] [address] Dr. Cortez Younger Glucose Ql (U) Negative Normal NEGATIVE [facility] Comment on above: Performed By: #### E RUR #### [facility] [address] [place] [address] Dr. Cortez Younger Hemoglobin Ql (U) TRACE-LYSED Abnormal NEGATIVE [facility] Comment on above: Performed By: #### E RUR #### [facility] [address] [place] [address] Dr. Cortez Younger Ketones Ql (U) Negative Normal NEGATIVE [facility] Comment on above: Performed By: #### E RUR #### [facility] [address] [place] [address] Dr. Cortez Younger LEUKOCYTES TRACE Abnormal NEGATIVE [facility] Comment on above: Performed By: #### E RUR #### [facility] [address] [place] [address] Dr. Cortez Younger Nitrite Ql (U) Negative Normal NEGATIVE [facility] Comment on above: Performed By: #### E RUR #### [facility] [address] [place] [address] Dr. Cortez Younger pH (U) 6.5 [pH] Normal 5-9 [facility] Comment on above: Performed By: #### E RUR #### [facility] [address] [place] [address] Dr. Cortez Younger SPEC GRAVITY <=1.005 Abnormal 1.005-<=1.025 [facility] Comment on above: Performed By: #### E RUR #### [facility] [address] [address] [address] Cortez Younger UA PROTEIN Negative Normal NEGATIVE/ TRACE [facility] Comment on above: Performed By: #### E RUR #### [facility] [id number] Cortez Younger Urobilinogen Qn (U) 0.2 {Fidelia'U}/dL Normal 0.2 - 1. 0 [facility] Comment on above: Performed By: #### E RUR #### [facility] [address] [place], [place] [id number] Dr. Cortez Younger MRI CSPINE WO W [...] VERN LU Date: 2022-01-17 16:24 Normal [facility] MRI TSPINE WO W CONon 2021 MRI [...] VERN LU Date: 2022-01-17 16:29 Normal [facility] MRI BRAIN WO W CONon 022 [...] by: VERN LU Date: 2022-01-03 08:03 Normal [facility] Patient Educationon 12-25-19 22 Patient Education Oncology [...] including vitamins, herbs, eye drops, creams, and [id number] medicines. This also includes: ? Medicines to [...] 08/01/2005 Document Revised: 06/11/2018 Document Reviewed: 04/05/2018 [employer] [employer] Patient Education ? 2019 [employer]. [facility] Urology Office/Clinic Noteon 12-24-2021 Urology Office/Clinic Note [...] Urnls Dip Stick Auto w/o Microscopy POC 27601 3. Elevated PSA (R97.20: Elevated prostate specific antigen [PSA]) Most recent PSA done 08/13/21 5.24 Ordered: Urnls Dip Stick Auto w/o Microscopy POC 82532 Other obstructive and reflux uropathy (N13.8: Other obstructive and reflux uropathy) Follow-up With When Contact Information Star Manley MD, Gustavo Orlando, URO In 6 months [facility] [address], [place] [address]- Additional Instructions: w/ PVR Patient Education Prostate-Specific [...] tab(s), Or (more content not included)... Normal [facility] Comment on above: Result Comment: Elec tronically Signed By: Star Manley MD, Gustavo Orlando\.br\Date and Time Signed: 12/24/21 10:52 EDT\.br\Electronically Co-Signed By: Lynda Ortega\.br\Date and Time Co-Signed: 12/24/21 10:47 EDT Lab Reportson 12-16-2021 Lab Reports .. [id number]#1.00CD: 127 [facility] Lab Reports [id number]#[id number]: 127 Normal [facility] CULTURE URINEon 12-12-2021 CULTURE URINE Culture Observations : No growth Normal [facility] Comment on above: Performed By: #### U RCX ####[facility] [address] [place] [address]Dr. Cortez Younger UA RANDOMon 12-12-2021 Bilirubin Ql (U) Negative Normal NEGATIVE The [facility] Comment on above: Performed By: #### U A #### [facility] [address] [address] [address] Cortez Younger Clarity (U) CLEAR Normal CLEAR [facility] Comment on above: Performed By: #### U A #### [facility] [address] [address] [address] Cortez Younger Color (U) LT. YELLOW Normal YELLOW [facility] Comment on above: Performed By: #### U A #### [facility] [address] [place] [address] Dr. Cortez Younger Glucose Ql (U) Negative Normal NEGATIVE [facility] Comment on above: Performed By: #### U A #### [facility] [address] [address] [address] Cortez Younger Hemoglobin Ql (U) LARGE Abnormal NEGATIVE The [facility] Comment on above: Performed By: #### U A #### [facility] [address] [place] [address] Dr. Cortez Younger Ketones Ql (U) Negative Normal NEGATIVE The [facility] Comment on above: Performed By: #### U A #### [facility] [address] [address] [address] Cortez Younger LEUKOCYTES Negative Normal NEGATIVE [facility] Comment on above: Performed By: #### U A #### [facility] [address] [address] [address] Cortez Younger Nitrite Ql (U) Negative Normal NEGATIVE [facility] Comment on above: Performed By: #### U A #### [facility] [address] [address] [address] Crotez Younger pH (U) 7.0 [pH] Normal 5-9 The [facility] Comment on above: Performed By: #### U A #### [facility] [address] [address] [address] Cortez Younger SPEC GRAVITY 1.010 Normal 1.005-<=1.025 [facility] Comment on above: Performed By: #### U A #### [facility] [address] [address] [address] Cortez Younger UA PROTEIN Negative Normal NEGATIVE/ TRACE [facility] Comment on above: Performed By: #### U A #### [facility] [address] [address] [address] Cortez Younger Urobilinogen Qn (U) 0.2 {Fidelia'U}/dL Normal 0.2 - 1. 0 [facility] Comment on above: Performed By: #### U A #### [facility] [address] [address] [address] Cortez Younger Coding Summary.on 12-06-2021 Coding Summary. CD:[id number] Gh0b Ww+PGhlYWQ+TD3YMTRdV20zw KQfdD7NZ0mBQO0YMDBRHCJOZ Q2RST2xqCR8XZlxQ1IducGd IslvzZWiCK85WFy6HXZ2gYyt XKhnjN4ijGUvZ5u5QjXuSO75 oW06EXyeTTYyYsK2KoTsfslc bWFy C1epMnOuaIUqFir+PHRhYmxl IHdpZHRoPScxMDAlJyBzdHls RP5cTp8cDQOnVISnrOzqnDUc OiBj u4aqFMZwODfxYQ8ccUmmX2Ha cJF6LFZqv0k1Hd78dUB+PHRk CLZ0nRriGFvoc742VdQle9jp IDM3 uLDfORmtHEX9P80hv0D1FLTa XDOzSSI1nBW9pW3ojLmbbyxc Z2ZcaAEsJjM7LDS9eTIlgH3b bGln ztbrbU6zZzn+S90MHR4FWMSW CD2AXzj6J1FpWvjejLM+PC90 NTPzQO80eTFjgDVta5tpmOj7 JzEw RYSkHGE6uLyeRHzyw7TyQYXy B45rtETwu9U4DNMyxLgpaMIt RuMcmYT8xR0mBBjbsyspl0gy dzsn Mssbl4xgia05pJ41F39mYXdj SIWbGQA7HKEnLPYcwKmoom2z oB1tAy9+KHtoi1lkn4tbcZe1 IjIw MKQuybBbaPwmZDG3f0TrJy50 O8WdjDohb6OvCjr0yg47hIDv d4C7oMU5NDesWWLrtO5cBSkz ZnQ6 UXJsTfHppD24dXFrDLmwNp0t rKmbpPqaNQ0iVREjhzlwBEPu rC9lGPUivXLnuReaPV3bWWIb bjtm x614QqCfGHS9NRGabPXgI4Wr hP4sXdVaALPsEHZbB9EzhKNb KCjrS738IEctUvW3FSMvrnVq Y2Fs PVEuoAqfGnU7f8I5Pd7Rp5Bg tyfuHMG3ARazEKT6OlA9UcJj FdE0X9RxWrw3BLIpoXyvZY2l J3Bh OXSvlwkhxptrrKJ7WUNfNRUm pR73eEDyVKyyBq8gu2D5u009 KLPvXRUxlH76Mp5jyVwoKKLl dCBU xU1auipyr9kxvzywWtMsLJRv EEd8RYw8KUAgbVkoVzIzGXP8 QxB4RYV1tXTboU9niUenrake dG9w Oyc+R51fkN3zEOM0PAM2lwtj BZWqjhRqEY94TD25L2GsIbnc dGFibGU+WBPqtjDcmAykUD4l YmFj j6veo4VrADgfV0YdDPJxUWfa Czs3PUEnAMI2sQG5xO8qTSVl JBckq7U3rKG9C2JukhLuvv2h b2xs ELSqJNqmQ25jnPGxz0M7IBGb qZP0SJFmdUivDyWhxP64Bye+ BFHciYrmd3HwBukzg3eol6dl dGg9 DuNsMBHydtThqEvpUWV4z0Oc Vy15I22pHCvoJSTrUWNkEQKi APQecOozuw5buA5hQn1+PGNv bCB3 vXB9hH2rKUFpGpM7GLjgH353 LgQeaMCgLlaui8bta1wpgUu5 TiSiVJKafbHunJjlSNL3f3Qc Lz48 D40hICwrSAGyEGXaDFZsXFJi gBgbxb6xrB9oRi7+BR5ci1ef at37tH73mGJ+ETDqPMD8tXsm PSdw TRNwhT2mXMmvFrN6WLCqFlQb qP55lUZyWDusJl8ofIqsmJny KV1tSSYnqujxz642SlGhc6rl IDEw lXMeBOpcUNZ2D63ys4T3BICy SCXjHXH7hBD2fK1ezOkcjsch bGVmdDsgdmVydGljYWwtYWxp Z246 IHRvcDsnPlBhdGllbnQgTmFt DQa7P9TeDvq5SODxbSjwOE2t jBYlFYrcFi8zeCtdiLgoQL9i NTBp gslgv779CxQtj4weHZHgsPAg XIrnLHZ1Z25kj7N6GXJpDBXq AHE8pFR1eS5efTjkqnrpoJUf dDsg deLfdVrlFOhaUImjC691UWPh vKfsRkGpzmZdGJWpaRE7AW39 XY80aTUdc9U5kLI8C2ZsZNHj bmct nkhpxUJ8KSIbUJNfcT36Qi4n uIkeWh3aYTLuRWG7RCDceDRj Z9VciK3hAnGzOTXyYDUpO0Te eHQt CAytJ778KBeyRkQ9KDEoocRw X8OwAWOaiCwhKlG3n5W9On5S J0W9SB44ED87tTPle8V2eOY0 J3Bh DYAqcfnjbpfopKF5KOVwQPTg xY80Ug0ggWcqHq5kJIOxATI9 QRMguLBxG9ArgI4qNxYmODZs MDAw K9WixVHlNUceH324UKofSaS3 VRZrwqGtU3IvFNQyzUnpGsW6 e5C8Th6GXLa4SC41AA62fYNp c3R5 pWB9B0VtXQEklyznjzqjlCU0 HKPkCKTzaB50Hv7xbHzxRz7m OPVmEPQ2IUOlpUDfJ5JvyS6v OiAj UAZrNCWoO0YyeVMxYApwB440 LYtnSqK6QRYaqeUmT2RgAATj kThrThS4e8X3Og2CVNDnGZ16 IFR5 vKJ1OD90TD22X4HcDstxsIUl bGU+PHRhYmxlIHdpZHRoPScx LWUxQuUlyRzpYP4oKl2xBOVu LWNv rNidqVCeIaAjp4xiAGXiJIis BG8yzCxlY1DosBB8TSNja9l9 Yf05L63xN5JqkEU+PGNvbCB3 aWR0 gC3oDlGuQiZ0IPajH840MsPd gJJiBhgdf3fbs5dkbEu1UyE0 ZQVrprVciTohIUU7j3OiAq96 Y29s IHdpZHRoPSIxNSUiIHZhbGln vt6xpX5fFl7+GIHqtDC0jFG1 tY2aUpApGdK6DFjpE407ZmWi cCIv Qidko0jra4lmjVk7HaCcJULq bdAyqBwtCZN9h1WcOb29Z6Pb uXwsc6DvJlk2gd79tCKhn6P7 bGU9 A7RoAIUqdupajAHpeKbbYT8w CIGkwoawMUHaiP4pRAGsO8q9 NjBsBqU5PNgmI0RzgmS8QABr cHQg SGapIDS7Y58qr0Q0PYWqQTCi VQZ7cQR1pW0anPghzvhmkXFf eAqaovWswRqbTStqERmsT760 IHRv hRlcYUVsyK5rZPFfuHUehDpb XX1pOIMwiicnWzIQEhJIP2pJ GMpxS0XZBP7bALrneVC+PHRk IHN0 lPnoVMtaPOMjyW9wAKRgM2k8 JjExKiD8BTkeZ4TfAEOwrklk Aj01eA4wSvWxUbJ8VPorG3Qu bnQ6 GHKkvVZnCShtYKS2R59fk9P3 JXVoRSZhRYG4jEO3bQ0zcZkf bjogbGVmdDsgdmVydGljYWwt YWxp G712RLIlbVirWyC8VgJcPpE0 Nji5F9AsHsc7TQSfmGkbFK4r cKKkCBkgQw9vsMttkHbnVU3a NTBp jyejNHPoxC6oAALawDWebDyn VT4mTRZptqlki665IgAsAGF4 GIJcjVObL5RueG2xZaVbEFIg MDAw T3QtvFPjFGowO359RCxwCtB1 UVFsczXtU4CuJRMxzGpoKtC0 u2Z7Hg81VpOHOGRozljbcQZ+ PHRk JMD0nNsrCQbyTEYahE4mMGOb V7j0QmHzAsG9FRfoK4YpDXNj hkjnXj23qY3rFsXpMfA4NIyq O2Zv egY0PMNscRWpDPxqAZB2E70v a9N6XIIkEBTkEUW8hTD0kB4l bGlnbjogbGVmdDsgdmVydGlj YWwt VUtiZ980HDJrrTckUp4mjAC3 S7WoVla3MTKkqJkgIA5opJOk OJskIv2shFdsgIlaCR2hYBXc bjtw BLTovK8tNCPgnNYpmPecDU9f CQYyatgva100LwCnPTB7BJKi hYOlF7DprP1oPgPxZLFpAWWj O3Rl yCRyXKoiN647ZUuqBxP6PTDl uePcX0YiBBWvhHjzIoF9z5F9 Pp7LfNLgWBVmSL84NS69TU18 L3Ry PjwvdGFibGU+PHRhYmxlIHdp JEBlPXzuHSQtLtTtdVeqAM5s Lz5rHGRbMXLowSglaDWkQhWq b2xs POWoQRcpPJ3qsHmwM9UzfZG9 APKrs0f4Uv13D05kX2XbiAN+ RJDmtQR9dXP5oV2cRfGuPcO0 YWxp S633BmCugOKoUajcq3kii3og kAe4AoTbZUWtbvPeyYocUYD6 y1NxOl23F90zBWcgTSLlLNAc MCUi XOUsgHvpea5zqA8zBw0+PGNv wGF0oAT7xV4xLqZsVqW8XJol W344NnOpaDDtYajsE48pR2Vv dXA+ WDZdFcg5KKMluKqtKM9myEFj OFguYg3kSOK1HgJlTdVvLQli R5ZqOJEqpapllwigaUX8FYLr MDUw mM35Ob7qzYmiDp2eCJTiMOJ6 HKWelREfM7EciG3cWuBpHKNe LWSoX9BknVWcTOqxG066IWye ZnQ7 AVDeshObJ8VwMKTetKmeYbR4 u5N2Zk3VwTgljPVsOP0lAwDz ZXf8H0ZkYye2SNAebJleKK2i cGFk WFizJr9fkPzbxBahBN1zACCs tbwgo082VwLjb3tgNOCvzJIf NJnqUVX8K19ir6C8GLHiIITw MDA7 pEU0lK7cvKcswnaqfQKlbXmc mvLouNkiIWylRWoaH156NVLx eBuiDnJAQco0N5IsTut3NYEo dHls BA9jqJEdSTuvAa3ldKeyuXvh BA2rLNRolazut223FxByv8kd MVHahHGzNAveUIV3B87dk5H4 ICMw BPPcXOZ9xBT0oG8pkHqtpqfu bGVmdDsgdmVydGljYWwtYWxp N064DWLxmXbdKx7YPjy2R0Xo Pjx0 YOGalWmvWI3gvHDqSGeaJn9l kRlesTmvUK2qGYQvgkgpd353 RtXin6xyQZCngEKzVWwkYRJ4 Y29s v5G9JTNqJJEiRIR7tFR6sY5y bGlnbjogbGVmdDsgdmVydGlj SMgiUEpjI239RPSaeAewUuHo eWVy OjwvdGQ+LZ45ib58X8ZeQpvs Xnw7RWXlKII9vUA2jC4fLFSz LYehi9Z4yEC2L5MalbZiix5x b2xs YXBz (more content not included)... [facility] Consent for Procedure/Surger yon 12-05-2021 Consent for Procedure/Surgery [id number]#1.00CD :127 [facility] Consent for Treatmenton 05-2 Consent for Treatment [id number]#1.00CD: 127 [facility] IntraOperative Documentson 0 12-05-2021 IntraOperative Documents [id number]#1.00CD :127 [facility] Main OR Intraoperative Recor don 12-05-2021 Main OR Intraoperative Record IntraOp Document Type FTURO Summary Primary Physician: Gustavo Graves Jr., MD Finalized Date/Time: 12/05/21 13:57:51 Pt. Name: HARISH MCKENNA /Sex: 1970 Male Med Rec #: [id number] Physician: Gustavo Graves Jr., MD Financial #: [id number] Pt. Type: O Room/Bed: / Admit/Disch: 12/05/21 11:48:14 - Institution: Case Times FTURO Entry 1 Patient Times In Room 12/05/21 13:23:00 Out Room 12/05/21 13:57:00 Procedure Times Start 12/05/21 13:40:00 Stop 12/05/21 13:53:00 Anesthesia Times Last Modified By: Veena Levin RN 12/05/21 13:57:47 Case Attendance FTURO Entry 1 Entry 2 Entry 3 Case Attendee Gustavo Graves Jr., MD SPORTS MANAGEMENT PROFESSOR, Veena Brower SPORTS MANAGEMENT PROFESSOR, Ni Aguirre Role Performed Surgeon - Primary [...] Case Attendee Veena Levin RN Role Performed Gas Engine Performance Engineer - Primary Time In 12/05/21 13:23:00 Time [...] Implant Implant Identification Description UROLIFT Lot Number [id number] Welfare Officer NEOTRACT Catalog ?# [id number] Expiration Date 07/17/23 Usage Data Implant Site [...] patient probl (more content not included)... Normal [facility] Main OR Preoperative Recordo n 12-05-2021 Main OR Preoperative Record Holding Area Document Type FTURO Summary Primary Physician: Gustavo Graves Jr., MD Finalized Date/Time: 12/05/21 13:01:06 Pt. Name: HARISH MCKENNA./Sex: 1970 Male Med Rec #: [id number] Physician: Gustavo Graves Jr., MD Financial #: [id number] Pt. Type: O Room/Bed: / Admit/Disch: 12/05/21 [...] 12:28 Veena Levin RN 12/05/21 13:01 Normal [facility] Operative Reporton Operative Report Patient: HARISH MCKENNA [...] procedure (10 mg diazepam, 5/325 mg of Dun[place]), Local Anesthesia (60cc 2% Xylocaine liquid inserted [...] well and was subsequently discharged home. Normal [facility] Comment on above: Result Comment: Elec tronically Signed By: Star Manley MD, Gustavo Orlando\.amanda\Date and Time Signed: 12/05/21 13:58 EDT CBC AUTO DIFFon 12-03-2021 BASO # 0.2 103/ul Critically high 0.0-0.1 [facility] Comment on above: Performed By: #### C BC ####[facility] [address] [place], [place] [address]KsFish Younger Basophils/100 WBC (Bld) 1.3 % Normal 0.2-2.0 [facility] Comment on above: Performed By: #### C BC ####[facility] [address] [place], [place] [address]ZfFish Younger EO # 0.2 103/ul Normal 0.0-0.7 [facility] Comment on above: Performed By: #### C BC ####[facility] [address] [place] [address]Dr. Cortez Younger Eosinophils/100 WBC (Bld) 1.8 % Normal 0.9-7.0 [facility] Comment on above: Performed By: #### C BC ####[facility] [address] [address]Dr. Cortez Younger Erythrocyte distribution width (RBC) [Ratio] 13.3 % Normal 11.0-15.0 [facility] Comment on above: Performed By: #### C BC ####[facility] [address] [place] [address]Dr. Cortez Younger Hematocrit (Bld) [Volume fraction] 45.0 % Normal 42.0-54.0 [facility] Comment on above: Performed By: #### C BC ####[facility] [address] [place], [place] [address]Dr. Cortez Younger Hemoglobin (Bld) [Mass/Vol] 15.6 g/dL Normal 14.0-18.0 [facility] Comment on above: Performed By: #### C BC ####[facility] [address] [place], [place] [address]Dr. Cortez Younger IG # 0.05 10e3/ul Critically high 0.00-0.03 [facility] Comment on above: Performed By: #### C BC ####[facility] [address] [place], [place] [address]Dr. Cortez Younger IG % 0.4 % Normal 0.0-0.5 [facility] Comment on above: Performed By: #### C BC ####[facility] [address] [place], [place] [address]Dr. Cortez Younger LYMPH # 1.8 103/ul Normal 1.2-3.8 [facility] Comment on above: Performed By: #### C BC ####[facility] [address] [place], [place] [address]Dr. Cortez Younger Lymphocytes/100 WBC (Bld) 15.2 % Critically low 20.5-60.0 [facility] Comment on above: Performed By: #### C BC ####[facility] [address] [place] [address]Dr. Cortez Younger MANUAL DIFF REQ NO Normal [facility] Comment on above: Performed By: #### C BC ####[facility] [address] [place] [address]Dr. Cortez Younger MCH (RBC) [Entitic mass] 31.1 pg Normal 25.9-34.0 [facility] Comment on above: Performed By: #### C BC ####[facility] [address] [place] [address]Dr. Cortez Younger MCHC (RBC) [Mass/Vol] 34.7 g/dL Normal 29.9-35.2 [facility] Comment on above: Performed By: #### C BC ####[facility] [address] [place], [place] [address]Dr. Cortez Younger MCV (RBC) [Entitic vol] 89.8 fL Normal 80.0-94.0 [facility] Comment on above: Performed By: #### C BC ####[facility] [address] [place], [place] [address]DrFish Younger MONO # 0.6 103/ul Normal 0.3-0.8 [facility] Comment on above: Performed By: #### C BC ####[facility] [address] [place] [address]Dr. Cortez Younger Monocytes/100 WBC (Bld) 5.3 % Normal 1.7-12.0 [facility] Comment on above: Performed By: #### C BC ####[facility] [address] [place], [place] [address]DrFish Younger NEUT # 8.9 103/ul Critically high 1.4-6.5 [facility] Comment on above: Performed By: #### C BC ####[facility] [address] [place] [address]DrFish Younger Neutrophils/100 WBC (Bld) 76.0 % Critically high 43.0-75.0 [facility] Comment on above: Performed By: #### C BC ####[facility] [address] [place] [address]Dr. Cortez Younger Platelet mean volume (Bld) [Entitic vol] 8.9 fL Critically low 9.5-13.5 [facility] Comment on above: Performed By: #### C BC ####[facility] [address] [place] [address]Dr. Cortez Younger PLT 414 103/ul Normal 150-450 [facility] Comment on above: Performed By: #### C BC ####[facility] [address] [place] [address]Dr. Cortez Younger RBC 5.01 106/ul Normal 4.70-6.10 [facility] Comment on above: Performed By: #### C BC ####[facility] [address] [place] [address]Dr. Cortez Younger WBC 11.7 103/ul Critically high 4.0-11.0 [facility] Comment on above: Performed By: #### C BC ####[facility] [address] [place] [address]Dr. Cortez Younger PROF 14(COMP METB)on 022 Albumin [Mass/Vol] 3.8 g/dL Normal 3.4-5.0 [facility] Comment on above: Performed By: #### C BC #### [facility] [address] [address] [address] Cortez Younger Albumin/Globulin [Mass ratio] 1.3 {ratio} Normal [facility] Comment on above: Performed By: #### C BC #### [facility] [address] [address] [address] Cortez Younger ALP [Catalytic activity/Vol] 95 U/L Normal 46-116 [facility] Comment on above: Performed By: #### C BC #### [facility] [address] [address] [address] Cortez Younger ALT [Catalytic activity/Vol] 25 U/L Normal 16-63 [facility] Comment on above: Performed By: #### C BC #### [facility] [address] [address] [address] Cortez Younger Anion gap [Moles/Vol] 12.7 mmol/L Normal [facility] Comment on above: Performed By: #### C BC #### [facility] [address] [address] [address] Cortez Younger AST [Catalytic activity/Vol] 18 U/L Normal 15-37 [facility] Comment on above: Performed By: #### C BC #### [facility] [address] [address] [address] Cortez Younger Bilirubin [Mass/Vol] 0.3 mg/dL Normal 0.2-1.0 [facility] Comment on above: Performed By: #### C BC #### [facility] [address] [place] [address] Dr. Cortez Younger Calcium [Mass/Vol] mg/dL Normal 8.5-10.1 [facility] Comment on above: Performed By: #### C BC #### [facility] [address] [address] [address] Cortez Younger Chloride [Moles/Vol] 98 mmol/L Normal 98-107 [facility] Comment on above: Performed By: #### C BC #### [facility] [address] [place] [address] Dr. Cortez Younger CO2 [Moles/Vol] 28.9 mmol/L Normal 21.0-32.0 [facility] Comment on above: Performed By: #### C BC #### [facility] [address] [address] [address] Cortez Younger Creatinine [Mass/Vol] 0.84 mg/dL Normal 0.70-1.30 [facility] Comment on above: Performed By: #### C BC #### [facility] [address] [address] [address] Cortez Younger EGFR-AF IRISH >60 Normal >=60 [facility] Comment on above: Performed By: #### C BC #### [facility] [address] [address] [address] Cortez Younger EGFR-NON AF IRISH >60 Normal >=60 [facility] Comment on above: Performed By: #### C BC #### [facility] [address] [place] [address] Dr. Cortez Younger Globulin (S) [Mass/Vol] 3.0 g/dL Normal [facility] Comment on above: Performed By: #### C BC #### [facility] [address] [address] [address] Cortez Younger Glucose [Mass/Vol] 104 mg/dL Normal 74-106 [facility] Comment on above: Performed By: #### C BC #### [facility] [address] [place] [address] Dr. Cortez Younger Potassium [Moles/Vol] 3.6 mmol/L Normal 3.5-5.1 [facility] Comment on above: Performed By: #### C BC #### [facility] [address] [place] [address] Dr. Cortez Younger Protein [Mass/Vol] 6.8 g/dL Normal 6.4-8.2 [facility] Comment on above: Performed By: #### C BC #### [facility] [address] [place] [address] Dr. Cortez Younger Sodium [Moles/Vol] 136 mmol/L Normal 136-145 [facility] Comment on above: Performed By: #### C BC #### [facility] [address] [place] [address] Dr. Cortez Younger Urea nitrogen [Mass/Vol] 6.0 mg/dL Critically low 7.0-18.0 [facility] Comment on above: Performed By: #### C BC #### [facility] [address] [place] [address] Dr. Cortez Younger Urea nitrogen/Creatinine [Mass ratio] 7.1 mg/mg Normal [facility] Comment on above: Performed By: #### C BC #### [facility] [address] [place] [address] Dr. Cortez Younger Consent for Procedure/Surger yon 10-15-2021 Consent for Procedure/Surgery [id number]: 127 Normal [facility] Patient Educationon 10-15-19 22 Patient Education Urology [...] these instructions at home: Medicines ? Take heth-qyx-vzkojex and prescription medicines only as told by [...] the blood stops without treatment. ? Take insz-stu-wymcukg and prescription medicines only as told by your health care provider. ? Drink enough fluid to keep your urine clear or pale yellow. This information is not intended to replace advice given to you by your health care provider. Make sure you discuss any questions you have with your health care provider. Document Released: 06/29/2006 Document Revised: 11/23/2019 Document Reviewed: 08/01/2017 [employer] Patient Education ? 2019 [employer] [facility] Urology Office/Clinic Noteon 10-14-2021 Urology Office/Clinic Note [...] [place], [facility] [address] [place] [address]- Additional Instructions: Patient Education Hematuria, Adult Jaret Finley personally scribed for Dr. Graves on 10/14/2021 13:40:09. . Documentation recorded by the Sharonda yao accurately reflects the services(s) I performed and decis (more content not included)... Normal [facility] Comment on above: Result Comment: Elec tronically Signed By: Gustavo Graves Jr., MD\.br\Date and Time Signed: 10/14/21 13:47 EDT\.br\Electronically Co-Signed By: Jaret Benz\.br\Date and Time Co-Signed: 10/14/21 13:40 EDT SURGICAL PATH REPORTon 01-25 SURGICAL PATH REPORT [facility] Department of Pathology [address] [place] [address] Name: HARISH MCKENNA : 1970 [facility] [id number] Number: Gender: Male Location: [facility] Admit 50 years Attending CRUZITO TOMLINSON JR Age: Provider: Ordering CRUZITO TOMLINSON JR Provider: Consulting: Surgical Pathology Report ACCESSION: COLLECTED DATE/TIME: RECEIVED DATE/TIME: PATHOLOGIST: [id number] 01/23/2021 12:05 EDT 01/24/2021 12:05 EDT ALVIN CADET MD Final Diagnosis Report for [facility] [place] [place] ANTRUM, BIOPSY: - MILD CHRONIC GASTRITIS. [...] MP/ts 01/24/2021 Tissue pathology report for: [facility], [address] [place] [id number]; Print Date/ 01/25/2021 12:34 EDT Number: Time: [facility] Department of Pathology [address] [place] [id number] Name: HARISH MCKENNA : 1970 [facility] [id number] Number: Gender: Male Location: [facility] Admit 50 years Attending CRUZITO TOMLINSON JR Age: Provider: Ordering CRUZITO TOMLINSON JR Provider: Consulting: Surgical Pathology Report ACCESSION: COLLECTED DATE/TIME: RECEIVED DATE/TIME: PATHOLOGIST: [id number] 01/23/2021 12:05 EDT 01/24/2021 12:05 EDT ALVIN CADET MD Gross Description PATHOLOGY SERVICES PROVIDED BY [employer] (CLIA #[id number]) in cooperation with [facility] at [address] [place] [address] (CLIA #[id number]) Microscopic Diagnosis NOTE: One or more of the reagents used to perform assays on this specimen MAY have contained components considered to be analyte specific reagents ( ASRs). ASRs have not been cleared or approved by the U.S. Food and Drug Administration. The performance characteristics of these assays have been determined by the Department of Pathology at [facility]. This assay was performed subsequent to the H and E examination. Appropriate positive and negative controls were examined with appropriate reactivity. Codes CPT CODE: [id number] + [id number] Print Date01/25/2021 12:34 EDT Number: Time: Normal [facility] Comment on above: Performed By: #### [id number] #### [facility] [address] [place] [id number] [employer]ole[employer] Printer: Alvin Cadet MD Vital Signs Date Time Vital Sign Value Performing Clinician Facility 03-25-2023 13:30-0400 Body height 177.8 cm Mahnaz Roth Other [facility] Other 03-25-2023 13:30-0400 Body mass index (BMI) [Ratio] 18.65 kg/m2 Mahnaz Roth Other [facility] Other 03-25-2023 13:30-0400 Body temperature 98.4 [degF] Mahnaz Roth Other [facility] Other 03-25-2023 13:30-0400 Body weight 58.97 kg Mahnaz Roth Other [facility] Other 03-25-2023 13:30-0400 Diastolic blood pressure 87 mm[Hg] Mahnaz Marcelinow Other [facility] Other 03-25-2023 13:30-0400 Systolic blood pressure 135 mm[Hg] Mahnaz Marcelinow Other [facility] Other 12-24-2021 09:50-0400 Blood Pressure Location Gustavo Graves Jr. [facility] 12-24-2021 09:50-0400 Diastolic blood pressure 76 mm[Hg] Gustavo Graves Jr. [facility] 12-24-2021 09:50-0400 Heart rate 68 /min Gustavo Graves Jr. [facility] 12-24-2021 09:50-0400 Systolic blood pressure 132 mm[Hg] Gustavo Graves Jr. [facility] Encounters Encounter Date Encounter Type Care Provider Facility Start: 09-09-2023 End: 09-09-2023 ambulatory BUBBA GHOTRA Not Available Start: 08-31-2023 End: 08-31-2023 ambulatory BUBBA Chand HEMEYER Not Available Start: 08-21-2023 End: 08-21-2023 ambulatory Mahnaz Ira Other [facility] Other Start: 08-21-2023 Telephone encounter Mahnaz Ira [facility] Start: 07-22-2023 Telephone encounter Mahnaz Ira [facility] Start: 07-22-2023 End: 07-22-2023 ambulatory MATY MEDEIROS [facility] Other Start: 06-24-2023 End: 06-24-2023 ambulatory Mahnaz Ira Other [facility] Other Start: 06-24-2023 Telephone encounter Mahnaz Ira [facility] Start: 05-28-2023 End: 05-28-2023 ambulatory Mahnaz Ira Other [facility] Other Start: 05-28-2023 Telephone encounter Mahnaz Ira [facility] Start: 05-19-2023 End: 05-19-2023 ambulatory Mahnaz Ira Other [facility] Other Start: 05-19-2023 Office outpatient visit 15 minutes Mahnaz Ira [facility] Start: 04-21-2023 End: 04-21-2023 ambulatory Mahnaz Ira Other [facility] Other Start: 04-21-2023 Office outpatient visit 15 minutes Mahnaz Ira [facility] Start: 04-07-2023 End: 04-07-2023 ambulatory Mahnaz Ira Other [facility] Other Start: 04-07-2023 Telephone encounter Mahnaz Ira [facility] Start: 04-02-2023 End: 04-02-2023 ambulatory Mahnaz Ira Other [facility] Other Start: 04-02-2023 Telephone encounter Mahnaz Ira [facility] Start: 04-01-2023 End: 04-01-2023 ambulatory Mahnaz Ira Other [facility] Other Start: 04-01-2023 Telephone encounter Mahnaz Ira [facility] Start: 03-25-2023 End: 03-25-2023 ambulatory Mahnaz Ira Other [facility] Other Start: 03-25-2023 Office outpatient ne w [...] . Facility:[facility] Start: 03-08-2022 ambulatory JERI PURCELL Facility:[facility] Start: 02-26-2022 End: 02-27-[address] VERN [...] procedure Gustavo Graves Jr. [facility] Start: 12-17-2021 End: 12-19-[address] DOCTOR BENNETT Facility: Start: 12-12-2021 End: 12-13-2021 ambulatory LAMAR TURNER Facility: Start: 12-05-2021 End: 12-06-2021 ambulatory Heri MURRELL Facility:[facility] Start: 12-05-2021 End: 12-05-2021 Patient encounter procedure Gustavo Graves Jr. [facility] Start: 12-05-2021 ambulatory Heri MURRELL Facility :[facility] Start: 12-03-2021 End: 12-04-2021 ambulatory JERI PURCELL Facility: Start: 10-14-2021 End: 10-15-2021 ambulatory Heri MURRELL Facility: [facility] Start: 09-19-2021 ambulatory Heri MURRELL Facility :[facility] Start: 12-11-2017 End: 12-12-2017 Patient encounter procedure Tunde WFish Das Facility:[facility] Procedures Date Procedure Procedure Detail Performing Clinician Start: 10-14-2021 Cystoscopy Gustavo flores Jr. Start: 09-13-2019 Cystoscopy Gustavo Deena flores Jr. Cholecystectomy Gustavo Graves Jr. Counseling Mahnaz corcoran Other Immunizations Immunization Date Immunization Notes Care Provider [facility] 10-22-2020 SARS-CoV-2 (COVID-19 ) mRNA BNT-162b2 vax Gustavo Graves Jr. [facility] 10-01-2020 SARS-CoV-2 (COVID-19 ) mRNA BNT-162b2 vax Gustavo Graves Jr. [facility] Payers Date Payer Category Payer Unknown [id number] 2.16.8 40.1.019546.3.579.2.727 1969 Unknown [id number] 2.16.8 40.1.214182.3.579.2.727 1969 Unknown [id number] 2.16.8 40.1.319926.3.579.2.727 1969 Unknown [id number] 2.16.8 40.1.556517.3.579.2.727 1969 Unknown [id number] 2.16.8 40.1.711008.3.579.2.727 1969 Unknown [id number] 2.16.84 0.1.777582.3.579.2.593 1969 Unknown [id number] 2.16.84 0.1.645891.3.579.2.593 1969 Unknown [id number] 2.16.84 0.1.533866.3.579.2.593 1969 Unknown [id number] 2.16.84 0.1.277394.3.579.2.593 1969 Unknown [id number] 2.16.84 0.1.613671.3.579.2.593 1969 Unknown [id number] 2.16.84 0.1.391076.3.579.2.593 1969 Unknown [id number] 2.16.84 0.1.354333.3.579.2.593 1969 Unknown [id number] 2.16.84 0.1.499580.3.579.2.593 1969 Unknown [id number] 2.16.84 0.1.171082.3.579.2.593 1969 Unknown [id number] 2.16.84 0.1.971089.3.579.2.593 1969 Unknown [id number] 2.16.84 0.1.626937.3.579.2.593 1969 Unknown [id number] 2.16.84 0.1.417724.3.579.2.593 1969 Unknown [id number] 2.16.84 0.1.654832.3.579.2.593 1969 Unknown [id number] 2.16.84 0.1.753905.3.579.2.593 1969 Unknown [id number] 2.16.84 0.1.016661.3.579.2.593 1969 Unknown [id number] 2.16.84 0.1.018814.3.579.2.593 1969 Unknown [id number] 2.16.84 0.1.709057.3.579.2.593 1969 Unknown [id number] 2.16.84 0.1.908240.3.579.2.593 1969 Unknown [id number] 2.16.84 0.1.786913.3.579.2.593 1969 Unknown [id number] 2.16.84 0.1.208749.3.579.2.593 1969 Unknown [id number] 2.16.84 0.1.763073.3.579.2.1286 1969 Unknown [id number] 2.16.84 0.1.051792.3.579.2.1259 1969 Unknown [id number] 2.16.84 0.1.990898.3.579.2.1259 1960 Medicaid [id number] 1960 Medicare [id number] 1960 Self-pay Social History Date Type Detail Facility Start: 10-14-2021 Tobacco smoking status Ex-smoker (fi nding) [facility] Sex Assigned At Male [facility] Functional Status Date Assessment Result Facility 12-24-2021 Functional Status N/A [facility] [employer] Clinical Notes 12-05-2021 to 08-21-2023 Note Date & Type Note Facility 08-21-2023 Evaluation note Encounter Date Diagnosis Assessment Notes Aug, Chronic pain (ICD-10 - G89.29) [facility] reviewed, consistent with Rx. MME 60 mg/day [facility] Other 01-10-2024 Evaluation note* Encounter Date Diagnosis Assessment Notes Treatment Notes Treatment Clinical Notes Jul, Chronic pain (ICD-10 - G89.29) [facility] reviewed, consistent with Rx. Also has benzo prescribed by P and pregabalin by neurology [facility] Other 12-13-2023 Evaluation note* Encounter Date Diagnosis Assessment Notes Treatment Notes Treatment Clinical Notes Jun, Chronic pain (ICD-10 - G89.29) [facility] Other 11-16-2023 Evaluation note* Encounter Date Diagnosis Assessment Notes Treatment Notes Treatment Clinical Notes May, Chronic pain (ICD-10 - G89.29) OAR[facility] reviewed, consistent with Rx [facility] Other 11-07-2023 Evaluation note* Encounter Date Diagnosis [...] at bedtime instead of using PRN only [facility] Other 10-10-2023 Evaluation note* Encounter Date Diagnosis Assessment Notes Treatment Notes Treatment Clinical Notes Apr, Chronic pain (ICD-10 - G89.29) [facility] reviewed, consistent with Rx. Harish reports some relief with oxycodone 10 mg tabs, and is using med 3-4x/daily. Continue same without change. Apr, Constipation (ICD-10 - K59.00) Improved elimination with daily use of senna [facility] Other 09-26-2023 Evaluation note* Encounter Date Diagnosis [...] reported some lose stools after using routinely [facility] Other 09-20-2023 Evaluation note* Encounter Date Diagnosis Assessment Notes Treatment Notes Treatment Clinical Notes Mar, Chronic pain (ICD-10 - G89.29) [facility] reviewed, consistent with recent Rx. Increasing frequency of oxycodone to q6h PRN to improve pain control. Mar, Constipation (ICD-10 - K59.00) Harish is using Miralax daily but remains constipated, will add stimulant laxative [facility] Other 09-13-2023 Evaluation note* Encounter Date Diagnosis [...] of Constipation hand out provided to patient [facility] Other 04-06-2023 NoteCONSULTATION CONSULTATION DATE: 10/16/2022 TO: [...] 25 mg daily, Lyrica 200 mg t.i.d., Dundee 7.5 mg b.i.d. He currently uses medical [...] THC if we are to continue with Dundee. However, at this point, I do not [...] our patients to inform us about any bawp-vql-rldhdkl medications or herbal remedies/nutritional supplements/alternative remedies. 2. [...] treatment options with their primary care provider.[id number] Note CONSULTATION CONSULTATION DATE: 06/26/2022 HISTORY OF [...] Lyrica 200 mg t.i.d. per his neurologist, Dundee 7.5/325 b.i.d., Cymbalta, baclofen and Ocrevus. Patient's [...] medication changes today. He was increased to Dundee 7.5/325 at his last visit, and the patient feels it is somewhat helpful. We will continue to medically manage him only. Patient will be seen in the clinic in three months' time unless otherwise indicated.[facility] [id number] NoteCONSULTATION CONSULTATION DATE: 03/13/2022 HISTORY OF PRESENT ILLNESS: This is 51-year-old gentleman, well known to the [facility], returning for a three month follow up. This gentleman has history of MS, chronic pain syndrome and diffuse neuropathic pain, which is chronically medically managed with a medication regimen. Current medications include Mobic 15 mg daily, Lyrica 200 mg t.i.d., Dundee 5/325 t.i.d., baclofen, Trileptal and amitriptyline. Patient recently suffered a family loss and reportedly has lost about 12 pounds in weight. He does ambulate with a cane and is stable with that. He is requesting today that we change his Dundee from t.i.d. to 7.5 b.i.d. as he [...] pain. PLAN: We will check from his Dundee 5/325 t.i.d. to 7.5/325 b.i.d. We will maintain his other medications with no dose or frequency change. He will be given a U-Tox in the clinic today. I did discuss vitamin importance as well as supplementing his protein intake with Boost supplements. We will see the patient in three months' time, unless otherwise indicated. Patient is in agreement to this.[facility] [id number] Hospital Discharge instructions Patient Education 12/24/2021 10:47:00 [...] including vitamins, herbs, eye drops, creams, and sazc-cwe-djjpjzk medicines. This also includes: ?Medicines to assist [...] 08/01/2005 Document Revised: 06/11/2018 Document Reviewed: 04/05/2018 [employer] Patient Education 2020 All At Home. Follow Up Care 12/05/2021 14:04:21 With:Star Manley MD, LION Borja Address: [facility] [address] [place] [address]- When:Within 6 Month(s) Comments:w/ PVR [facility] 05-26-2022 Note [id number]:127[facility] 12-05-2021 NoteUrolift ? Some men may experience [...] personnel to use a Coude (pronouncedcoo-day) tipped catheter.[facility]05-26-2022 Hospital Discharge instructions Patient Education 12/05/2021 13:20:29 [...] [facility]rology [address], [place] [address]- Business (1) When:2 to 4 weeks Comments:PVR with [facility] Future [facility]ments Appointment Date:12/24/2021 09:30:00 AM Scheduled Provider:Gustavo Graves Jr., MD Location:[facility] Appointment [facility] Future Appointments Appointment Date:07/01/2022 10:45:00 AM Scheduled Provider:Gustavo Graves Jr., MD Location:[facility] Appointment Type:URO Office Visit [facility] evaluation noteNo [facility] Other History general Narrative - Reported* Type Description Date Medical History multiple sclerosis Medical History bipolar Medical History GERD Surgical History cholecystectomy [facility] Other Hospital course Narrative No data available for this section [facility] No data available for this section [facility] Summary Purpose Family History No Family [...] section and content) DATE CREATED AUTHOR 09/18/2018 [facility] DATE CREATED AUTHOR AUTHOR'S ORGANIZ ATION 01/25/2021 [facility] DATE CREATED AUTHOR AUTHOR'S ORGANIZ ATION 09/16/2022 [facility] DATE CREATED AUTHOR AUTHOR'S ORGANIZ ATION 11/18/2022 [facility] DATE CREATED AUTHOR AUTHOR'S ORGANIZ ATION 07/26/2023 [facility] DATE CREATED AUTHOR AUTHOR'S ORGANIZ ATION 09/12/2023 [facility] Care Team (unrecognized sect ion and content) Personnel Name: BUBBA GHOTRA MD Address: [address] [place] [id number] REASON FOR VISIT (unrecogniz ed section and [...] BE BASED ON THE PRIMARY CLINICAL RECORDS. [employer] provides no warranty or guarantee of the accuracy or completeness of information in this document.
[2023-10-22 14:17] LABS: Basophils Absolute Auto 0.1 10^3/uL (0.0-0.1); Basophils Percent Auto 0.3 % (0.2-2.0); Eosinophils Percent Auto 0.3 % (0.9-7.0); Hematocrit 35.2 % (42.0-54.0); Hemoglobin 11.4 g/dL (14.0-18.0); Immature Granulocytes Abs Auto 0.13 10^3/uL (0.00-0.03); Immature Granulocytes Pct Auto 0.9 % (0.0-0.5); Lymphocytes Absolute Auto 1.4 10^3/uL (1.2-3.8); Lymphocytes Percent Auto 9.1 % (20.5-60.0); Mean Corpuscular HGB Conc 32.4 g/dL (29.9-35.2); Mean Corpuscular Hemoglobin 29.5 pg (25.9-34.0); Mean Platelet Volume 9.4 fL (9.5-13.5); Monocytes Percent Auto 6.4 % (1.7-12.0); Neutrophils Absolute Auto 12.3 10^3/uL (1.4-6.5); Platelet Count 541 10^3/uL (150-450); Red Blood Count 3.87 10^6/uL (4.70-6.10); Red Cell Distribution Width 13.6 % (11.0-15.0); White Blood Count 14.8 10^3/uL (4.0-11.0)
[2023-10-22 14:28] LABS: INR 1.02; Prothrombin Time 10.8 sec (9.0-11.6)
[2023-10-22 14:32] LABS: Lactate/Lactic Acid 1.2 mmol/L (0.4-2.0)
[2023-10-22 14:39] LABS: Alanine Aminotransferase 140 U/L (16-63); Albumin Globulin Ratio 0.7; Albumin Level 2.5 g/dL (3.4-5.0); Alkaline Phosphatase 276 U/L (46-116); Aspartate Amino Transferase 84 U/L (15-37); BUN Creatinine Ratio 8.1; Bilirubin Total 0.4 mg/dL (0.2-1.0); Calcium 8.8 mg/dL (8.5-10.1); Carbon Dioxide 27.5 mmol/L (21.0-32.0); Chloride 100 mmol/L (98-107); Estimated GFR (African America >60 (>=60); Estimated GFR (Non-African Ame >60 (>=60); Globulin 3.6 g/dL; Glucose 109 mg/dL (74-106); Magnesium 1.7 mg/dL (1.8-2.4); Potassium 3.5 mmol/L (3.5-5.1); Sodium 137 mmol/L (136-145); Total Protein 6.1 g/dL (6.4-8.2); Troponin I High Sensitivity <4.0 pg/mL (4.0-76.1)
[2023-10-22] MEDS: LEVOFLOXACIN IN DEXTROSE 5 % 750 MG/150 ML IV.SOLN 100 MG IV (14:39)
[2023-10-22 14:44] LABS: pH VBG 7.393 (7.330-7.430)
[2023-10-22 14:45] LABS: PCO2 VBG 47.1 mmHg (40.0-52.0)
--- NOTE | 2023-10-22 16:04 | P.HP_ITS ---
<Statement entered by Lasha Wolfe MD - 10/22/23 19:57> Patient not personally seen but seen by [facility]. Agree with assessment and plan below. Recent influenza and presented with increased SOB and hypoxia. Found pneumonia and started antibiotics. Wean O2 as tolerated. Resume home medication. Diagnosis: 1. Pneumonia 2. COPD exacerbation 3. Acute hypoxic respiratory jose j lure 4. Transaminitis 5. Hypomagnesemia 6. HTN 7. Multiple sclerosis HPI H&P: HPI History of Present Illness Chief complaint: SOB Pneumonia COPD exacerbation Narrative: 10/22/23 [id number] This is a 53-year-old male patient with a complicated past medical history including advanced MS on biannual Ocrevus infusions, COPD, depression, and hypertension; who presented to the ED complaining of shortness of breath, malaise, poor appetite, and diarrhea. The patient was diagnosed 1 week ago with influenza in the ED. He is felt increasingly short of breath over the last week. He was admitted in August for pneumonia and was discharged home on 2 L of oxygen. He was able to wean off of oxygen and was stable on room air until he became ill with influenza about 1 week ago when he started to use home O2 again at 2 to 3 L. The patient is a poor historian and is difficult to get a clear sequence of events. Workup in the ED revealed leukocytosis (14.8), hypomagnesemia (1.7), and transaminitis (AST 84, ALT 140, alk phos 276), and a chest x-ray revealing left infrahilar pneumonia. He is being admitted to the hospitalist service as an inpatient for pneumonia, COPD exacerbation, acute respiratory failure, transaminitis, and hypomagnesemia. At the time of my exam the patient is resting on the cart in the ED. He is pale and complains of feeling weak. He is not in respiratory distress but he has a loose cough and rhonchi throughout on exam. We have added on acute hepatitis panel due to the patient's elevated liver enzymes and his risk for hepatitis B reactivation while on Ocrevus. In addition we will order double gram-negative coverage as he is immunosuppressed at baseline and at risk for gram-negative pneumonia. Opioid HPI Opioid Management Most Recent Opioid Data: Last Pain Scale 5 08/29/23 12:38 Review of Systems ROS Status of ROS 10 or more systems reviewed and unremark able except as noted in history and below [facility] Medical History (Updated 10/22/23 @ 16:23 by Jaclyn Keen NP) Depression with anxiety ?F41.8 - Other specified anxiety disorders (ICD-10) Polyneuropathy ?G62.9 - Polyneuropathy, unspecified (ICD-10) Influenza ?J11.1 - Influenza due to unidentified influenza virus with other respiratory manifestations (ICD-10) Hypertension ?I10 - Essential (primary) hypertension (ICD-10) Multiple sclerosis ?G35 - Multiple sclerosis (ICD-10) Acute infective exacerbation of chronic obstructive airway disease ?J44.1 - Chronic obstructive pulmonary disease with (acute) exacerbation (ICD-10) Hypoxemia ?R09.02 - Hypoxemia (ICD-10) FH: cholecystectomy ?Z83.79 - Family history of other diseases of the digestive system (ICD-10) COPD (chronic obstructive pulmonary disease) ?J44.9 - Chronic obstructive pulmonary disease, unspecified (ICD-10) Family History (Updated 10/22/23 @ 16:40 by Jes Graves) Father Family history of cancer Family history of hypertension Social History Within the past year, how often did you have a drink containing alcohol: never Score interpretation: A score less than 4 is consistent with normal alcohol consumption. Smoking status: Former smoker Non-prescribed substance use: cannabis (any form) Previous occupational history: disabled Highest level of school completed/degree received: high school graduate Are you now , , , , never or living with a partner: In a typical week, how many times do you talk on the telephone with family, friends, or neighbors: 3 or more times per week How often do you get together with friends or relatives: 3 or more times per week How often do you attend roman catholic or rastafari services: never Do you belong to any clubs or organizations such as roman catholic groups unions, fraternal or athletic groups, or school groups: no Total score: 1 Score interpretation: A score of less than or equal to 1 indicates the most socially isolated. Little interest or pleasure in doing things: not at all Feeling down, depressed, or hopeless: not at all Feel stressed/tense/nervous/anxious/difficulty sleeping: not at all Gender Identity: male Meds Home Medications and Allergies Home Medications ?Medication ?Instructions ?Recorded ?Confirmed ?Type albuterol sulfate 2.5 mg/3 mL 2.5 mg inhalation Q6H PRN 08/26/23 10/22/23 History (0.083 %) solution for nebulization shortness of breath or wheezing baclofen 20 mg tablet 20 mg PO Q8H 08/26/23 10/22/23 History budesonide-formoterol HFA 160 2 puff inhalation Q12H 08/26/23 10/22/23 History mcg-4.5 mcg/actuation aerosol inhaler (Symbicort) buspirone 15 mg tablet 15 mg PO TID 08/26/23 10/22/23 History clonazepam 1 mg tablet 1 mg PO Q12H 08/26/23 10/22/23 History duloxetine 60 mg capsule,delayed 120 mg PO DAILY 08/26/23 10/22/23 History release hydralazine 10 mg tablet 10 mg PO Q12H 08/26/23 10/22/23 History losartan 100 mg tablet 100 mg PO DAILY 08/26/23 10/22/23 History metoprolol tartrate 50 mg tablet 75 mg PO Q12H 08/26/23 10/22/23 History oxcarbazepine 300 mg tablet 300 mg PO BID 08/26/23 10/22/23 History oxycodone 10 mg tablet 10 mg PO Q6H PRN pain 08/26/23 10/22/23 History pantoprazole 40 mg tablet,delayed 40 mg PO BID 08/26/23 10/22/23 History release pregabalin 200 mg capsule 200 mg PO Q8H 08/26/23 10/22/23 History primidone 50 mg tablet 100 mg PO BEDTIME 08/26/23 10/22/23 History quetiapine 50 mg tablet 50 mg PO .QHS 08/26/23 10/22/23 History sennosides 8.6 mg tablet (senna) 17.2 mg PO BID PRN constipation 08/26/23 10/22/23 History Allergies Allergy/AdvReac Type Severity Reaction Status Date / Time paroxetine [From Paxil] Allergy Intermediate Hallucinati Verified 10/15/23 21:10 ng venlafaxine [From Effexor] Allergy Intermediate Hallucinati Verified 10/15/23 21:10 ng Exam Constitutional Vital Signs, click to edit/add: Last Vital Signs Temp 98.5 F 10/22/23 13:32 Pulse 89 10/22/23 14:35 Resp 20 10/22/23 13:32 BP 127/80 10/22/23 14:35 Pulse Ox 95 10/22/23 14:35 O2 Del Method Nasal Cannula 10/22/23 14:12 O2 Flow Rate 2 10/22/23 14:12 Common normals: no apparent distress, oriented x3, alert and well nourished General appearance: cooperative Orientation/consciousness: Yes awake HENMT Common normals: normocephalic, head/scalp atraumatic, hearing grossly normal bilaterally, external nose normal and moist oral mucous membranes Eye Common normals: PERRL, EOMs intact bilaterally, conjunctivae normal and no scleral icterus Alignment: alignment normal Eyelid: eyelids normal Neck & C-Spine Common normals: full ROM, supple and no JVD Chest Common normals: inspection of chest normal Chest: symmetrical chest wall rise Respiratory Common normals: normal respiratory effort, no retractions and no use of accessory muscles Effort & inspection: able to speak in complete sentences Auscultation: rhonchi (Scattered throughout) and wheezes (Faint, scattered BLL insp) Cardio Common normals: no JVD, regular rate, regular rhythm, S1 normal heart sound, S2 normal heart sound, no gallops, no clicks, no murmurs, no rub and peripheral pulses 2+ throughout GI Common normals: Normal to inspection, nondistended, normoactive bowel sounds present, soft to palpation, non-tender, no hepatosplenomegaly, no masses and no bruits Bladder/kidney exam: bladder normal to palpation Back & Pelvis Common normals: thoracic and lumbar spine normal to inspection Extremity Common normals: normal capillary refill and no pedal edema General: normal exam except as noted; no clubbing and no cyanosis Neuro [place] Coma Scale: GCS not evaluated Common normals: CN's II-XII intact bilaterally, moves all extremities, no focal motor deficits and no sensory deficits noted Speech: speech normal Motor exam: strength 5/5 throughout Psych Common normals: mental status grossly normal, thought process normal, affect normal and activity/motor behavior normal Results Labs Labs: Short CBC 10/22/23 Range/Units 13:51 WBC 14.8 H (4.0-11.0) 10^3/uL Hgb 11.4 L (14.0-18.0) g/dL Hct 35.2 L (42.0-54.0) % Plt Count 541 H (150-450) 10^3/uL BMP 10/22/23 13:51 Sodium 137 Potassium 3.5 Chloride 100 Carbon Dioxide 27.5 BUN 6.0 L Creatinine 0.74 Glucose 109 H Calcium 8.8 Liver Function 10/22/23 Range/Units 13:51 Total Bilirubin 0.4 (0.2-1.0) mg/dL AST 84 H (15-37) U/L ALT 140 H (16-63) U/L Alkaline Phosphatase 276 H (46-116) U/L Albumin 2.5 L (3.4-5.0) g/dL ABG ABG results: 10/22/23 13:51 VBG pH 7.393 VBG pCO2 47.1 Pulse Oximetry Attestation: I have reviewed the pertinent pulse oximetry results. ECG Interpretation: Sinus rhythm Septal myocardial infarction, probably old Abnormal ECG Compared to ECG from 08/26/2023 at 5:45 AM Myocardial infarct finding now present Sinus tachycardia no longer present Right axis deviation no longer present Imaging Chest x-ray: Attestation: I have reviewed the pertinent imaging results. Radiologist's impression: IMPRESSION: Left infrahilar pneumonia. Assessment and Plan Assessment and Plan (1) Pneumonia: Assessment and Plan: Acute * Adm inpatient * We anticipate at least a 2 midnight stay for medically necessary hospital care * IVPB Levaquin and Zosyn - double gram neg coverage in a immunosuppressed pt at risk for gram neg pneumonia * Duonebs scheduled 14h * Guaifenesin BID & OPEP therapy for sputum mobilization * Sputum culture if able to obtain * BC x 2 obtained in ED - pending * See COPD exacerbation and Acute respiratory failure below * LR at 100/hr for hydration * CBC, CMP daily (2) COPD exacerbation: Assessment and Plan: Acute * Duonebs scheduled q4h, and albuterol PRN * Pulmicort nebs scheduled BID * Solu-medrol 40 mg q6h, 125 mg x 1 given in ED * See Pneumonia and acute respiratory failure (3) Acute hypoxic respiratory failure: Assessment and Plan: Acute * Pt discharged in Feb on home O2 but weaned off after several weeks. Resumed home O2 at 2-3 liters at onset of influenza 7-10 days ago * 2/2 to acute secondary pneumonia and COPD exacerbation * O2 delivery to keep sats above 90%, currently on 2L (4) Transaminitis: Assessment and Plan: Acute * Unclear etiology * Ocrevus infusions can cause Hep B reactivation * Hepatitis panel ordered - send out, pending * Consider RUQ US pending clinical course * Monitor w/ CMP daily (5) Hypomagnesemia: Assessment and Plan: Acute * Mag 1.7 in ED * possible etiology of some of the pt's weakness * Mag sulfate 2gm IVPB * Repeat mag level in AM (6) Multiple sclerosis: Assessment and Plan: Chronic * On Ocrevus q6 mo infusions, next dose due shortly * Continue home baclofen, Seroquel, oxcarbazepine and primidone (Pt does not have a seizure disorder) * Defer to outpatient management * Does not appear to be in acute exacerbation (7) Hypertension: Assessment and Plan: Chronic * Continue home losartan, metoprolol, hydralazine * IVPB Hydralazine PRN for uncontrolled HTN (8) Polyneuropathy: Assessment and Plan: Chronic * Continue home gabapentin (9) Depression with anxiety: Assessment and Plan: Chronic * Continue home duloxetine, Buspirone, and clonazepam
--- OUTSIDE RECORDS SUMMARY | 2023-10-22 16:37 | XMS_ITS | CCD ---
Author Organization [facility] Care Team Providers Care Hammer Operator Name Role Phone Tunde Das Admitting Unavailable [...] JERI Attending Unavailable BINH, JERI Admitting Unavailable BNIH, JERI Consulting Unavailable HEMEYER ., DR PEREIRA [...] Translations: [paroxetine] Drug Allergy Mild (qualifier value) [facility] (2 sources) PARoxetine Drug Allergy [address] [facility] (12 sources) venlafaxine Drug Allergy [address] [facility] Medications Current Medications Medication Drug Class(es) Dates Sig (Normalized) Sig (Original) [id number] actuat albuterol 0.09 mg/actuat metered dose [...] procedure., # 14 tab(s), Refills(s) 0, Pharmacy: [facility]/pharmacy #[id number], 178, , 10/14/21 12:57:00 EDT, Height/Length [...] procedure, # 1 tab(s), Refills(s) 0, Pharmacy: [facility]/pharmacy #[id number], 178, , 10/14/21 12:57:00 EDT, Height/Length [...] 08/06/21 Status: Ordered take 1 capsule by [facility] every twenty-four hours DULoxetine HCl [...] Status: Ordered take 1 capsule by mo [facility] once daily at bedtime Pregabalin 200 [...] bedtime Orally Once a day Active sennosides, assisted 8.6 mg oral tablet (9 sources) Start: [...] Other detention (current) drug therapy; Translations: [OTH RETIREMENT CURRENT DRUG THERAPY] Onset: 3 Episodic Other [...] Amylase [Catalytic activity/Vol] 37 U/L Normal 25-115 [facility] Comment on above: Performed By: #### A MY, CMP, LIPA ####[facility] [address] [address]Dr. Cortez Younger CBC AUTO DIFFon 11-13-2022 BASO # 0.1 103/ul Normal 0.0-0.[address] [facility] Comment on above: Performed By: #### C BC #### [facility] [address] [address] [address] Cortez Younger Basophils/100 WBC (Bld) 1.3 % Normal 0.2-2.[address] [facility] Comment on above: Performed By: #### C BC #### [facility] [address] [place] [address] Dr. Cortez Younger EO # 0.1 103/ul Normal 0.0-0.7 [facility] Comment on above: Performed By: #### C BC #### [facility] [address] [address] [address] Cortez Younger Eosinophils/100 WBC (Bld) 0.9 % Normal 0.9-7.0 [facility] Comment on above: Performed By: #### C BC #### [facility] [address] [place] [address] Dr. Cortez Younger Erythrocyte distribution width (RBC) [Ratio] 12.5 % Normal 11.0-15.0 [facility] Comment on above: Performed By: #### C BC #### [facility] [address] [place] [address] Dr. Cortez Younger Hematocrit (Bld) [Volume fraction] 42.3 % Normal 42.0-54.0 [facility] Comment on above: Performed By: #### C BC #### [facility] [address] [place] [address] Dr. Cortez Younger Hemoglobin (Bld) [Mass/Vol] 15.1 g/dL Normal 14.0-18.0 [facility] Comment on above: Performed By: #### C BC #### [facility] [address] [place] [address] Dr. Cortez Younger IG # 0.04 10e3/ul Critically high 0.00-0.[address] [facility] Comment on above: Performed By: #### C BC #### [facility] [address] [place] [address] Dr. Cortez Younger IG % 0.6 % Critically high 0.0-0.5 [facility] Comment on above: Performed By: #### C BC #### [facility] [address] [place] [address] Dr. Cortez Younger LYMPH # 1.4 103/ul Normal 1.2-3.[address] [facility] Comment on above: Performed By: #### C BC #### [facility] [address] [place] [address] Dr. Cortez Younger Lymphocytes/100 WBC (Bld) 20.7 % Normal 20.5-60.0 [facility] Comment on above: Performed By: #### C BC #### [facility] [address] [place] [address] Dr. Cortez Younger MANUAL DIFF REQ NO Normal [facility] Comment on above: Performed By: #### C BC #### [facility] [address] [place] [address] Dr. Cortez Younger MCH (RBC) [Entitic mass] 31.6 pg Normal 25.9-34.0 [facility] Comment on above: Performed By: #### C BC #### [facility] [address] [place] [address] Dr. Cortez Younger MCHC (RBC) [Mass/Vol] 35.7 g/dL Critically high 29.9-35.2 [facility] Comment on above: Performed By: #### C BC #### [facility] [address] [place] [address] Dr. Cortez Younger MCV (RBC) [Entitic vol] 88.5 fL Normal 80.0-94.0 [facility] Comment on above: Performed By: #### C BC #### [facility] [address] [place] [address] Dr. Cortez Younger MONO # 0.5 103/ul Normal 0.3-0.8 [facility] Comment on above: Performed By: #### C BC #### [facility] [address] [place] [address] Dr. Cortez Younger Monocytes/100 WBC (Bld) 7.7 % Normal 1.7-12.0 [facility] Comment on above: Performed By: #### C BC #### [facility] [address] [place] [address] Dr. Cortez Younger NEUT # 4.8 103/ul Normal 1.4-6.[address] [facility] Comment on above: Performed By: #### C BC #### [facility] [address] [place] [address] Dr. Cortez Younger Neutrophils/100 WBC (Bld) 68.8 % Normal 43.0-75.0 [facility] Comment on above: Performed By: #### C BC #### [facility] [address] [place] [address] Dr. Cortez Younger Platelet mean volume (Bld) [Entitic vol] 9.0 fL Critically low 9.5-13.5 [facility] Comment on above: Performed By: #### C BC #### [facility] [address] [address] [address] Cortez Younger PLT 384 103/ul Normal 150-450 [facility] Comment on above: Performed By: #### C BC #### [facility] [address] [address] [address] Cortez Younger RBC 4.78 106/ul Normal 4.70-6.10 [facility] Comment on above: Performed By: #### C BC #### [facility] [address] [address] [address] Cortez Younger WBC 7.0 103/ul Normal 4.0-11.0 [facility] Comment on above: Performed By: #### C BC #### [facility] [address] [place] [address] Dr. Cortez Younger ER URINE PROFILEon 3 Bilirubin Ql (U) Negative Normal NEGATIVE [facility] Comment on above: Performed By: #### E RUR ####[facility] [address] [place], [place] [address]Dr. Cortez Younger Clarity (U) CLEAR Normal CLEAR [facility] Comment on above: Performed By: #### E RUR ####[facility] [address] [place], [place] [address]Dr. Cortez Younger Color (U) LT. YELLOW Normal YELLOW [facility] Comment on above: Performed By: #### E RUR ####[facility] [address]qs[address] [place], [place] [address]DrFish Younger ERUAHD A micrscopic examina tion will be performed if indicated. Normal [facility] Comment on above: Performed By: #### E RUR ####[facility] [address] [place], [place] [address]DrFish Younger Glucose Ql (U) Negative Normal NEGATIVE [facility] Comment on above: Performed By: #### E RUR ####[facility] [address] [place], [place] [address]Dr. Cortez Younger Hemoglobin Ql (U) Negative Normal NEGATIVE [facility] Comment on above: Performed By: #### E RUR ####[facility] [address] [place], [place] [address]Dr. Cortez Younger Ketones Ql (U) Negative Normal NEGATIVE [facility] Comment on above: Performed By: #### E RUR ####[facility] [address] [place], [place] [address]Dr. Cortez Younger LEUKOCYTES Negative Normal NEGATIVE [facility] Comment on above: Performed By: #### E RUR ####[facility] [address] [place], [place] [address]Dr. Cortez Younger Nitrite Ql (U) Negative Normal NEGATIVE [facility] Comment on above: Performed By: #### E RUR ####[facility] [address] [place], [place] [address]Dr. Cortez Younger pH (U) 7.5 [pH] Normal 5-[address] [facility] Comment on above: Performed By: #### E RUR ####[facility] [address] [place], [place] [address]Dr. Cortez Younger SPEC GRAVITY <=1.005 Abnormal 1.005-<=1.025 [facility] Comment on above: Performed By: #### E RUR ####[facility] [address] [place], [place] [address]Dr. Cortez Aren UA PROTEIN Negative Normal NEGATIVE/ TRACE [facility] Comment on above: Performed By: #### E RUR ####[facility] [address] [place], [place] [address]Dr. Cortez Aren UR MICRO IND NOT INDICATED Normal [facility] Comment on above: Performed By: #### E RUR ####[facility] [address]re[address] [place], [place] [address]Dr. Cortez Aren Urobilinogen Qn (U) 0.2 {Fidelia'U}/dL Normal 0.2 - 1. [address] [facility] Comment on above: Performed By: #### E RUR ####[facility] [address] [address]Dr. Cortez Younger LIPASEon 11-13-2022 Lipase [Catalytic activity/Vol] 111.0 U/L Normal 73.0-393.0 [facility] Comment on above: Performed By: #### A MY, CMP, LIPA ####[facility] [address] [address]Dr. Cortez Younger PROF 14(COMP METB)on 023 Albumin [Mass/Vol] 3.9 g/dL Normal 3.4-5.0 [facility] Comment on above: Performed By: #### A MY, CMP, LIPA ####[facility] [address] [address]Dr. Cortez Younger Albumin/Globulin [Mass ratio] 1.4 {ratio} Normal [facility] Comment on above: Performed By: #### A MY, CMP, LIPA ####[facility] [address] [place], [place] [address]Dr. Cortez Younger ALP [Catalytic activity/Vol] 70 U/L Normal 46-[address] [facility] Comment on above: Performed By: #### A MY, CMP, LIPA ####[facility] [address] [place], [place] [address]Dr. Cortez Younger ALT [Catalytic activity/Vol] 24 U/L Normal 16-63 [facility] Comment on above: Performed By: #### A MY, CMP, LIPA ####[facility] [address] [address]Dr. Cortez Younger Anion gap [Moles/Vol] 9.8 mmol/L Normal [facility] Comment on above: Performed By: #### A MY, CMP, LIPA ####[facility] [address] [address]Dr. Cortez Younger AST [Catalytic activity/Vol] 12 U/L Critically low 15-37 [facility] Comment on above: Performed By: #### A MY, CMP, LIPA ####[facility] [address] [address]Dr. Cortez Younger Bilirubin [Mass/Vol] 0.3 mg/dL Normal 0.2-1.[address] [facility] Comment on above: Performed By: #### A MY, CMP, LIPA ####[facility] [address] [address]Dr. Cortez Younger Calcium [Mass/Vol] 9.2 mg/dL Normal 8.5-10.1 [facility] Comment on above: Performed By: #### A MY, CMP, LIPA ####[facility] [address] [address]Dr. Cortez Younger Chloride [Moles/Vol] 98 mmol/L Normal 98-[address] [facility] Comment on above: Performed By: #### A MY, CMP, LIPA ####[facility] [address] [place], [place] [address]Dr. Cortez Younger CO2 [Moles/Vol] 28.7 mmol/L Normal 21.0-32.0 [facility] Comment on above: Performed By: #### A MY, CMP, LIPA ####[facility] [address] [address]Dr. Cortez Younger Creatinine [Mass/Vol] 0.88 mg/dL Normal 0.70-1.[address] [facility] Comment on above: Performed By: #### A MY, CMP, LIPA ####[facility] [address] [address]Dr. Cortez Younger EGFR-AF SAMOAN >60 Normal >=60 [facility] Comment on above: Performed By: #### A MY, CMP, LIPA ####[facility] [address] [id number]. Cortez Younger EGFR-NON AF SAMOAN >60 Normal >=[address] [facility] Comment on above: Performed By: #### A MY, CMP, LIPA ####[facility] [address] [address]Dr. Cortez Younger Globulin (S) [Mass/Vol] 2.7 g/dL Normal [facility] Comment on above: Performed By: #### A MY, CMP, LIPA ####[facility] [address] [address]Dr. Cortez Younger Glucose [Mass/Vol] 105 mg/dL Normal 74-106 [facility] Comment on above: Performed By: #### A MY, CMP, LIPA ####[facility] [address] [address]Dr. Cortez Younger Potassium [Moles/Vol] 3.5 mmol/L Normal 3.5-5.1 [facility] Comment on above: Performed By: #### A MY, CMP, LIPA ####[facility] [address] [address]Dr. Cortez Younger Protein [Mass/Vol] 6.6 g/dL Normal 6.4-8.2 [facility] Comment on above: Performed By: #### A MY, CMP, LIPA ####[facility] [address] [address]Dr. Cortez Younger Sodium [Moles/Vol] 133 mmol/L Critically low 136-145 [facility] Comment on above: Performed By: #### A MY, CMP, LIPA ####[facility] [address] [address]Dr. Cortez Younger Urea nitrogen [Mass/Vol] 4.0 mg/dL Critically low 7.0-18.0 [facility] Comment on above: Performed By: #### A MY, CMP, LIPA ####[facility] [address] [address]Dr. Cortez Younger Urea nitrogen/Creatinine [Mass ratio] 4.5 mg/mg Normal [facility] Comment on above: Performed By: #### A MY, CMP, LIPA ####[facility] [address] [address]Dr. Cortez Younger XR ABD FLAT UP_PA Farideh [...] by: CRUZITO CRENSHAW Date: 2022-11-13 13:22 Normal [facility] FREE T4on 10-31-2022 Free T4 [Mass/Vol] 1.03 ng/dL Normal 0.76-1.46 [facility] Comment on above: Performed By: #### E RUR #### [facility] [address] [place] [address] Dr. Cortez Younger LIPID PROFILEon 10-31-2022 CHOL-HDL RATIO NORM SEE BELOW Normal [facility] Comment on above: Result Comment: 3.3 - 4.4 LOW RISK 4.4 - 7.1 AVERAGE RISK 7.1 - 11.0 MODERATE RISK >11.0 HIGH RISK Performed By: #### E RUR #### [facility] [address] [address] [address] Cortez Younger Cholesterol [Mass/Vol] 165 mg/dL Normal <=200 [facility] Comment on above: Performed By: #### E RUR #### [facility] [address] [address] [address] Cortez Younger Cholesterol in HDL [Mass/Vol] 59 mg/dL Normal 40-60 [facility] Comment on above: Performed By: #### E RUR #### [facility] [address] [address] [address] Cortez Younger Cholesterol in LDL [Mass/Vol] 83.8 mg/dL Normal [facility] Comment on above: Performed By: #### E RUR #### [facility] [address] [address] [address] Cortez Younger Cholesterol.total/C holesterol in HDL [Mass ratio] 2.8 {ratio} Normal [facility] Comment on above: Performed By: #### E RUR #### [facility] [address] [place] [address] Dr. Cortez Younger HDL NORMAL > or = 60 mg/dl - LO W CARDIOVASCULAR RISK <40 mg/dl - HIGH CARDIOVASCULAR RISK Normal [facility] Comment on above: Performed By: #### E RUR #### [facility] [address] [address] [address] Cortez Younger LDL CALC NORMAL SEE BELOW Normal [facility] Comment on above: Result Comment: <100 mg/dl OPTIMAL 100 - 129 mg/dl NEAR OR ABOVE OPTIMAL 130 - 159 mg/dl BORDERLINE HIGH 160 - 189 mg/dl HIGH >190 mg/dl VERY HIGH Performed By: #### E RUR #### [facility] [address] [address] [address] Cortez Younger Triglyceride [Mass/Vol] 111 mg/dL Normal <=150 [facility] Comment on above: Performed By: #### E RUR #### [facility] [address] [place] [address] Dr. Cortez Younger VLDL CALC 22.2 mg/dL Normal [facility] Comment on above: Performed By: #### E RUR #### [facility] [address] [place] [address] Dr. Crotez Younger MRI BRAIN WO W CONon 023 [...] VERN LU Date: 2022-10-31 13:[address] [facility] PROF 14(COMP METB)on 023 Albumin [Mass/Vol] 4.0 g/dL Normal 3.4-5.0 [facility] Comment on above: Performed By: #### C MP ####[facility] [address] [address]Dr. Cortez Younger Albumin/Globulin [Mass ratio] 1.3 {ratio} Normal [facility] Comment on above: Performed By: #### C MP ####[facility] [address] [place], [place] [address]Dr. Cortez Younger ALP [Catalytic activity/Vol] 66 U/L Normal 46-[address] [facility] Comment on above: Performed By: #### C MP ####[facility] By[address] [place], [place] [address]Dr. Cortez Younger ALT [Catalytic activity/Vol] 21 U/L Normal 16-[address] [facility] Comment on above: Performed By: #### C MP ####[facility] [address] [place], [place] [address]Dr. Cortez Younger Anion gap [Moles/Vol] 9.4 mmol/L Normal [facility] Comment on above: Performed By: #### C MP ####[facility] [address] [place], [place] [address]Dr. Cortez Younger AST [Catalytic activity/Vol] 10 U/L Critically low 15-[address] [facility] Comment on above: Performed By: #### C MP ####[facility] [address] [place], [place] [address]Dr. Cortez Younger Bilirubin [Mass/Vol] 0.4 mg/dL Normal 0.2-1.[address] [facility] Comment on above: Performed By: #### C MP ####[facility] [address] [place], [place] [address]Dr. Cortez Younger Calcium [Mass/Vol] 9.1 mg/dL Normal 8.5-10.1 [facility] Comment on above: Performed By: #### C MP ####[facility] [address] [address]Dr. Cortez Younger Chloride [Moles/Vol] 98 mmol/L Normal 98-107 [facility] Comment on above: Performed By: #### C MP ####[facility] [address] [address]Dr. Cortez Younger CO2 [Moles/Vol] 29.8 mmol/L Normal 21.0-32.0 [facility] Comment on above: Performed By: #### C MP ####[facility] [address]ls[address] [place], [place] [address]Dr. Cortez Younger Creatinine [Mass/Vol] 0.89 mg/dL Normal 0.70-1.30 [facility] Comment on above: Performed By: #### C MP ####[facility] [address] [place], [place] [address]Dr. Cortez Younger EGFR-AF SAMOAN >60 Normal >=60 [facility] Comment on above: Performed By: #### C MP ####[facility] [address] [place], [place] [address]Dr. Cortez Younger EGFR-NON AF SAMOAN >60 Normal >=60 [facility] Comment on above: Performed By: #### C MP ####[facility] [address] [address]Dr. Cortez Aren Globulin (S) [Mass/Vol] 3.1 g/dL Normal [facility] Comment on above: Performed By: #### C MP ####[facility] [address] [address]Dr. Cortez Aren Glucose [Mass/Vol] 109 mg/dL Critically high 74-106 [facility] Comment on above: Performed By: #### C MP ####[facility] [address] [address]Dr. Cortez Younger Potassium [Moles/Vol] 4.2 mmol/L Normal 3.5-5.[address] [facility] Comment on above: Performed By: #### C MP ####[facility] [address] [address]Dr. Cortez Younger Protein [Mass/Vol] 7.1 g/dL Normal 6.4-8.2 [facility] Comment on above: Performed By: #### C MP ####[facility] [address] [address]Dr. Cortez Younger Sodium [Moles/Vol] 133 mmol/L Critically low 136-145 [facility] Comment on above: Performed By: #### C MP ####[facility] [address] [address]Dr. Cortez Younger Urea nitrogen [Mass/Vol] 7.0 mg/dL Normal 7.0-18.0 [facility] Comment on above: Performed By: #### C MP ####[facility] [address] [address]Dr. Cortez Younger Urea nitrogen/Creatinine [Mass ratio] 7.9 mg/mg Normal [facility] Comment on above: Performed By: #### C MP ####[facility] [address] [address]DrFish Younger TSHon 10-31-2022 TSH 1.574 uIU/mL Normal 0.358-3.740 [facility] Comment on above: Performed By: #### T SH #### [facility] [address] [address] [address] Cortez Younger COMPLIANCE DRUG SCREENon PDF . Normal [facility] Comment on above: Performed By: #### E RUR #### [facility] [address] [address] [address] Cortez Younger Summary FINAL Normal [facility] Comment on above: Result Comment: == [...] test is not intended to distinguish between rqltq-7-pwyfjnyevjufimndfzlp, the predominant form of THC in most herbal or marijuana-based products, and nfmip-0-yprceorviqtxhzlbzyzy. Norhydrocodone 1620 ng/mg creat Norhydrocodone is an [...] == Performed By: #### E RUR #### [facility] [address] [place] [address] Dr. Cortez Younger HYDROCODONE AND METABOLITE, URINEon 10-24-2022 Hydrocodone 55 ng/mL Normal [facility] Comment on above: Performed By: #### E RUR #### [facility] [address] [place] [address] Dr. Cortez Younger Hydromorphone Negative Normal [facility] Comment on above: Result Comment: This test was developed and its performance characteristics determined by [employer]. It has not been cleared or approved by the Food and Drug Administration. Performed By: #### E RUR #### [facility] [address] [place] [address] Dr. Cortez Younger OSMOLALITYon 10-20-2022 Osmolality QNSREP Normal [facility] Comment on above: Result Comment: Spec imen quantity insufficient for verification by repeat analysis. contacted Lynda at your facility on 10-20-2022 Performed By: #### C BC #### [facility] [address] [place] [address] Dr. Cortez Younger OSMOLALITY URINEon Osmolality, Urine 119 mOsmol/kg Normal [facility] Comment on above: Result Comment: 24 h r : 300 - 900 Random: 50 - 1400 After 12hr fluid restriction: >850 Performed By: #### O SMOU ####[facility] [address] [id number]. Cortez Aren CBC AUTO DIFFon 10-16-2022 BASO # 0.0 103/ul Normal 0.0-0.1 [facility] Comment on above: Performed By: #### C BC ####[facility] [address] [place], [place] [address]Dr. Cortez Younger Basophils/100 WBC (Bld) 0.3 % Normal 0.2-2.[address] [facility] Comment on above: Performed By: #### C BC ####[facility] [address] [place], [place] [address]Dr. Cortez Younger EO # 0.0 103/ul Normal 0.0-0.7 [facility] Comment on above: Performed By: #### C BC ####[facility] [address] [place], [place] [address]Dr. Cortez Younger Eosinophils/100 WBC (Bld) 0.2 % Critically low 0.9-7.0 [facility] Comment on above: Performed By: #### C BC ####[facility] [address] [place], [place] [address]Dr. Cortez Younger Erythrocyte distribution width (RBC) [Ratio] 12.1 % Normal 11.0-15.0 [facility] Comment on above: Performed By: #### C BC ####[facility] [address] [place], [place] [address]Dr. Cortez Younger Hematocrit (Bld) [Volume fraction] 45.9 % Normal 42.0-54.0 [facility] Comment on above: Performed By: #### C BC ####[facility] [address] [place], [place] [address]Dr. Cortez Younger Hemoglobin (Bld) [Mass/Vol] 16.7 g/dL Normal 14.0-18.[address] [facility] Comment on above: Performed By: #### C BC ####[facility] [address] [place], [place] [address]Dr. Cortez Younger IG # 0.06 10e3/ul Critically high 0.00-0.[address] [facility] Comment on above: Performed By: #### C BC ####[facility] [address] [place] [id number]. Eleanorvalerie Younger IG % 0.5 % Normal 0.0-0.5 [facility] Comment on above: Performed By: #### C BC ####[facility] [address]uy[address] [place] [id number]. Eleanorvalerie Younger LYMPH # 1.5 103/ul Normal 1.2-3.[address] [facility] Comment on above: Performed By: #### C BC ####[facility] [address]fvumg[address] [place] [id number]. Eleanorvalerie Younger Lymphocytes/100 WBC (Bld) 13.5 % Critically low 20.5-60.0 [facility] Comment on above: Performed By: #### C BC ####[facility] [address] [place] [address]Dr. Cortez Younger MANUAL DIFF REQ NO Normal [facility] Comment on above: Performed By: #### C BC ####[facility] [address]aea[address] [place] [id number]. Cortez Younger MCH (RBC) [Entitic mass] 31.2 pg Normal 25.9-34.0 [facility] Comment on above: Performed By: #### C BC ####[facility] Erlefjvxys[address] [place] [id number]. Cortez Younger MCHC (RBC) [Mass/Vol] 36.4 g/dL Critically high 29.9-35.[address] [facility] Comment on above: Performed By: #### C BC ####[facility] T[address]ws[address] [place] [id number]. Cortez Younger MCV (RBC) [Entitic vol] 85.6 fL Normal 80.0-94.[address] [facility] Comment on above: Performed By: #### C BC ####[facility] [address] [place], [place] [address]Dr. Cortez Younger MONO # 0.6 103/ul Normal 0.3-0.[address] [facility] Comment on above: Performed By: #### C BC ####[facility] [address]mrpiq[address] [place], [place] [address]Vq. Cortez Younger Monocytes/100 WBC (Bld) 5.4 % Normal 1.7-12.[address] [facility] Comment on above: Performed By: #### C BC ####[facility] Vxfyrapxps10[address] [place], [place] [address]Iv. Cortez Younger NEUT # 8.9 103/ul Critically high 1.4-6.5 [facility] Comment on above: Performed By: #### C BC ####[facility] [address]myarbba[address] [place] [address]Dr. Cortez Younger Neutrophils/100 WBC (Bld) 80.1 % Critically high 43.0-75.[address] [facility] Comment on above: Performed By: #### C BC ####[facility] [address]fjacfuoo[address] [place] [id number]. Cortez Younger Platelet mean volume (Bld) [Entitic vol] 9.7 fL Normal 9.5-13.[address] [facility] Comment on above: Performed By: #### C BC ####[facility] Ufcjrwpaxj[address] [place] [id number]. Cortez Younger PLT 364 103/ul Normal 150-[address] [facility] Comment on above: Performed By: #### C BC ####[facility] I[address]qnvpub[address] [place] [address]Dr. Cortez Younger RBC 5.36 106/ul Normal 4.70-6.[address] [facility] Comment on above: Performed By: #### C BC ####[facility] Zzywogisgh[address] [place] [address]Dr. Cortez Younger WBC 11.1 103/ul Critically high 4.0-11.0 [facility] Comment on above: Performed By: #### C BC ####[facility] Yixzdkipsh[address] [place] [id number]. Cortez Younger [facility]on SARS-CoV-2 (COVID-19) RNA AXEL+probe Ql (Unsp spec) Not detected Normal NOT DETECTED [facility] Comment on above: Result Comment: When [...] for this test is supported by the [place] of Health and Human Service's declaration that [...] be used). Performed By: #### C VDTB ####[facility] [address] [place] [address]Dr. Cortez Younger DRUG SCREEN RAPID (URINE)on 10-16-2022 AMP Negative Normal NEGATIVE [facility] Comment on above: Performed By: #### C BC #### [facility] [address] [place] [address] Dr. Cortez Younger BAR Positive Abnormal NEGATIVE [facility] Comment on above: Performed By: #### C BC #### [facility] [address] [place] [address] Dr. Cortez Younger BUP Negative Normal NEGATIVE [facility] Comment on above: Performed By: #### C BC #### [facility] [address] [place] [address] [address] Cortez Younger BZO Positive Abnormal NEGATIVE [facility] Comment on above: Performed By: #### C BC #### [facility] [address] [place] [address] Dr. Cortez Younger OK Negative Normal NEGATIVE [facility] Comment on above: Performed By: #### C BC #### [facility] [address] [place] [address] Dr. Cortez Younger CUT-OFFS SEE BELOW Normal [facility] Comment on above: Result Comment: AMP [...] ng/mL Performed By: #### C BC #### [facility] [address] [place] [address] Dr. Cortez Younger DRUG CUT HEADER DRUG CLASS TEST SYST EM CUT-OFF CONCENTRATIONS ARE FOLLOWS: Normal [facility] Comment on above: Performed By: #### C BC #### [facility] [address] [place] [address] Dr. Cortez Younger mAMP Negative Normal NEGATIVE [facility] Comment on above: Performed By: #### C BC #### [facility] [address] [place] [address] Dr. Cortez Younger MTD Negative Normal NEGATIVE [facility] Comment on above: Performed By: #### C BC #### [facility] [address] [place] [address] Dr. Cortez Younger OPI Positive Abnormal NEGATIVE [facility] Comment on above: Performed By: #### C BC #### [facility] [address] [place] [address] Dr. Cortez Younger OXY Negative Normal NEGATIVE [facility] Comment on above: Performed By: #### C BC #### [facility] [address] [place] [address] Dr. Crotez Younger PCP Negative Normal NEGATIVE [facility] Comment on above: Performed By: #### C BC #### [facility] [address] [place] [address] Dr. Cortez Younger PPX Negative Normal NEGATIVE [facility] Comment on above: Performed By: #### C BC #### [facility] [address] [place] [address] [address] Cortez Younger TCA Negative Normal NEGATIVE [facility] Comment on above: Performed By: #### C BC #### [facility] [address] [place] [address] [address] Cortez Younger THC Positive Abnormal NEGATIVE [facility] Comment on above: Performed By: #### C BC #### [facility] [address] [place] [address] [address] Cortez Younger ER URINE PROFILEon 3 Bilirubin Ql (U) Negative Normal NEGATIVE [facility] Comment on above: Performed By: #### C BC #### [facility] [address] [place] [address] Dr. Cortez Younger Clarity (U) CLEAR Normal CLEAR [facility] Comment on above: Performed By: #### C BC #### [facility] [address] [place] [address] Dr. Cortez Younger Color (U) LT. YELLOW Normal YELLOW [facility] Comment on above: Performed By: #### C BC #### [facility] [address] [place] [address] Dr. Cortez Younger ERUYONYD A micrscopic examina tion will be performed if indicated. Normal [facility] Comment on above: Performed By: #### C BC #### [facility] [address] [place] [address] Dr. Cortez Younger Glucose Ql (U) Negative Normal NEGATIVE [facility] Comment on above: Performed By: #### C BC #### [facility] [address] [place] [address] Dr. Cortez Younger Hemoglobin Ql (U) Negative Normal NEGATIVE [facility] Comment on above: Performed By: #### C BC #### [facility] [address] [place] [address] Dr. Cortez Younger Ketones Ql (U) Negative Normal NEGATIVE [facility] Comment on above: Performed By: #### C BC #### [facility] [address] [place] [address] [address] Cortez Younger LEUKOCYTES Negative Normal NEGATIVE [facility] Comment on above: Performed By: #### C BC #### [facility] [address] [place] [address] Dr. Cortez Younger Nitrite Ql (U) Negative Normal NEGATIVE [facility] Comment on above: Performed By: #### C BC #### [facility] [address] [place] [address] Dr. Cortez Younger pH (U) 7.5 [pH] Normal 5-9 [facility] Comment on above: Performed By: #### C BC #### [facility] [address] [place] [address] Dr. Cortez Younger SPEC GRAVITY <=1.005 Abnormal 1.005-<=1.025 [facility] Comment on above: Performed By: #### C BC #### [facility] [address] [place] [address] Dr. Cortez Younger UA PROTEIN Negative Normal NEGATIVE/ TRACE [facility] Comment on above: Performed By: #### C BC #### [facility] [address] [place] [address] Dr. Cortez Younger UR MICRO IND NOT INDICATED Normal [facility] Comment on above: Performed By: #### C BC #### [facility] [address] [place] [address] Dr. Cortez Younger Urobilinogen Qn (U) 0.2 {Fidelia'U}/dL Normal 0.2 - 1. 0 [facility] Comment on above: Performed By: #### C BC #### [facility] [address] [place] [address] Dr. Cortez Younger NAon 10-16-2022 Sodium [Moles/Vol] 125 mmol/L Critically low 136-145 [facility] Comment on above: Performed By: #### E RUR #### [facility] [address] [place] [address] Dr. Cortez Younger POTASSIUM URINEon 10-16-2022 UR POTASSIUM 11.8 mmol/L Normal [facility] Comment on above: Performed By: #### K U ####[facility] [address]urt[address]nzgs[address] [place], [place] [address]LnDr. Cortez Younger PROF 14(COMP METB)on 023 Albumin [Mass/Vol] 4.2 g/dL Normal 3.4-5.0 [facility] Comment on above: Performed By: #### E RUR #### [facility] [address] [place] [address] [address] Cortez Younger Albumin/Globulin [Mass ratio] 1.3 {ratio} Normal [facility] Comment on above: Performed By: #### E RUR #### [facility] [address] [place] [address] [address] Cortez Younger ALP [Catalytic activity/Vol] 75 U/L Normal 46-116 [facility] Comment on above: Performed By: #### E RUR #### [facility] [address] [place] [address] [address] Cortez Younger ALT [Catalytic activity/Vol] 23 U/L Normal 16-63 [facility] Comment on above: Performed By: #### E RUR #### [facility] [address] [place] [address] [address] Cortez Younger Anion gap [Moles/Vol] 9.7 mmol/L Normal [facility] Comment on above: Performed By: #### E RUR #### [facility] [address] [place] [address] [address] Cortez Younger AST [Catalytic activity/Vol] 16 U/L Normal 15-37 [facility] Comment on above: Performed By: #### E RUR #### [facility] [address] [place] [address] [address] Cortez Younger Bilirubin [Mass/Vol] 0.4 mg/dL Normal 0.2-1.0 [facility] Comment on above: Performed By: #### E RUR #### [facility] [address] [place] [address] [address] Cortez Younger Calcium [Mass/Vol] 9.1 mg/dL Normal 8.5-10.1 [facility] Comment on above: Performed By: #### E RUR #### [facility] [address] [place] [address] [address] Cortez Younger Chloride [Moles/Vol] 88 mmol/L Critically low 98-107 [facility] Comment on above: Performed By: #### E RUR #### [facility] [address] [place] [address] [address] Cortez Younger CO2 [Moles/Vol] 26.5 mmol/L Normal 21.0-32.0 [facility] Comment on above: Performed By: #### E RUR #### [facility] [address] [place] [address] Dr. Cortez Younger Creatinine [Mass/Vol] 0.73 mg/dL Normal 0.70-1.30 [facility] Comment on above: Performed By: #### E RUR #### [facility] [address] [place] [address] Dr. Cortez Younger EGFR-AF SAMOAN >60 Normal >=60 [facility] Comment on above: Performed By: #### E RUR #### [facility] [address] [place] [address] Dr. Cortez Younger EGFR-NON AF SAMOAN >60 Normal >=60 [facility] Comment on above: Performed By: #### E RUR #### [facility] [address] [place] [address] Dr. Cortez Younger Globulin (S) [Mass/Vol] 3.2 g/dL Normal [facility] Comment on above: Performed By: #### E RUR #### [facility] [address] [place] [address] Dr. Cortez Younger Glucose [Mass/Vol] 109 mg/dL Critically high 74-106 [facility] Comment on above: Performed By: #### E RUR #### [facility] [address] [place] [address] Dr. Cortez Younger Potassium [Moles/Vol] 4.2 mmol/L Normal 3.5-5.[address] [facility] Comment on above: Performed By: #### E RUR #### [facility] [address] [place] [address] [address] Cortez Younger Protein [Mass/Vol] 7.4 g/dL Normal 6.4-8.2 [facility] Comment on above: Performed By: #### E RUR #### [facility] [address] [place] [address] [address] Cortez Younger Sodium [Moles/Vol] 120 mmol/L Critically low 136-145 Th [facility] Comment on above: Performed By: #### E RUR #### [facility] [address] [place] [address] [address] Cortez Younger Urea nitrogen [Mass/Vol] 7.0 mg/dL Normal 7.0-18.0 [facility] Comment on above: Performed By: #### E RUR #### [facility] [address] [place] [address] [address] Cortez Younger Urea nitrogen/Creatinine [Mass ratio] 9.6 mg/mg Normal [facility] Comment on above: Performed By: #### E RUR #### [facility] [address] [place] [address] [address] Cortez Younger SODIUM RANDOM URINEon 2022 Sodium (U) [Moles/Vol] 26 mmol/L Critically low 30-90 [facility] Comment on above: Performed By: #### N AU ####[facility] [address] [place] [address]Dr. Cortez Younger ACETONE SERUMon 10-07-2022 ACETONE Negative Normal NEGATIVE [facility] Comment on above: Performed By: #### E RUR #### [facility] [address] [place] [address] [address] Cortez Younger CBC AUTO DIFFon 10-07-2022 BASO # 0.1 103/ul Normal 0.0-0.1 [facility] Comment on above: Performed By: #### C BC ####[facility] [address]ds[address] [place] [address]Dr. Cortez Younger Basophils/100 WBC (Bld) 0.8 % Normal 0.2-2.0 [facility] Comment on above: Performed By: #### C BC ####[facility] [address] [place] [address]Dr. Cortez Younger EO # 0.0 103/ul Normal 0.0-0.7 [facility] Comment on above: Performed By: #### C BC ####[facility] [address]cx[address] [place] [address]Dr. Cortez Younger Eosinophils/100 WBC (Bld) 0.2 % Critically low 0.9-7.0 [facility] Comment on above: Performed By: #### C BC ####[facility] [address] [place], [place] [address]Dr. Cortez Younger Erythrocyte distribution width (RBC) [Ratio] 12.1 % Normal 11.0-15.0 [facility] Comment on above: Performed By: #### C BC ####[facility] [address] [place], [place] [address]Dr. Cortez Younger Hematocrit (Bld) [Volume fraction] 42.9 % Normal 42.0-54.0 [facility] Comment on above: Performed By: #### C BC ####[facility] [address] [place], [place] [address]Dr. Cortez Younger Hemoglobin (Bld) [Mass/Vol] 15.4 g/dL Normal 14.0-18.0 [facility] Comment on above: Performed By: #### C BC ####[facility] [address] [place], [place] [address]Dr. Cortez Younger IG # 0.04 10e3/ul Critically high 0.00-0.[address] [facility] Comment on above: Performed By: #### C BC ####[facility] [address] [place], [place] [address]Dr. Cortez Younger IG % 0.4 % Normal 0.0-0.5 [facility] Comment on above: Performed By: #### C BC ####[facility] [address] [place], [place] [address]Dr. Cortez Younger LYMPH # 1.3 103/ul Normal 1.2-3.[address] [facility] Comment on above: Performed By: #### C BC ####[facility] [address]xt[address] [place] [address]Dr. Cortez Aren Lymphocytes/100 WBC (Bld) 13.7 % Critically low 20.5-60.0 [facility] Comment on above: Performed By: #### C BC ####[facility] [address] [place] [address]Dr. Cortez Younger MANUAL DIFF REQ NO Normal [facility] Comment on above: Performed By: #### C BC ####[facility] [address] [place] [id number]. Eleanorvalerie Younger MCH (RBC) [Entitic mass] 31.4 pg Normal 25.9-34.0 [facility] Comment on above: Performed By: #### C BC ####[facility] [address] [place], [place] [address]Dr. Cortez Younger MCHC (RBC) [Mass/Vol] 35.9 g/dL Critically high 29.9-35.2 [facility] Comment on above: Performed By: #### C BC ####[facility] [address]xs[address]ncq[address] [place] [address]Dr. Eleanorvalerie Younger MCV (RBC) [Entitic vol] 87.4 fL Normal 80.0-94.[address] [facility] Comment on above: Performed By: #### C BC ####[facility] [address] [place], [place] [address]Dr. Cortez Younger MONO # 0.4 103/ul Normal 0.3-0.[address] [facility] Comment on above: Performed By: #### C BC ####[facility] [address] [place], [place] [address]Dr. Cortez Younger Monocytes/100 WBC (Bld) 3.6 % Normal 1.7-12.[address] [facility] Comment on above: Performed By: #### C BC ####[facility] [address] [place], [place] [address]Dr. Cortez Younger NEUT # 7.9 103/ul Critically high 1.4-6.5 [facility] Comment on above: Performed By: #### C BC ####[facility] [address]fsuesg[address] [place] [address]Dr. Cortez Younger Neutrophils/100 WBC (Bld) 81.3 % Critically high 43.0-75.0 [facility] Comment on above: Performed By: #### C BC ####[facility] [address]ec[address]hij[address] [place] [address]Dr. Cortez Younger Platelet mean volume (Bld) [Entitic vol] 8.8 fL Critically low 9.5-13.5 [facility] Comment on above: Performed By: #### C BC ####[facility] [address] [place] [address]Dr. Cortez Younger PLT 371 103/ul Normal 150-450 [facility] Comment on above: Performed By: #### C BC ####[facility] [address]ys[address]fafqw[address] [place] [address]Dr. Cortez Younger RBC 4.91 106/ul Normal 4.70-6.[address] [facility] Comment on above: Performed By: #### C BC ####[facility] [address]ws[address] [place] [address]Dr. Cortez Younger WBC 9.8 103/ul Normal 4.0-11.[address] [facility] Comment on above: Performed By: #### C BC ####[facility] [address] [place] [address]Dr. Cortez Younger CRPon 10-07-2022 CRP [Mass/Vol] mg/L Normal <=1.0 [facility] Comment on above: Performed By: #### L IPA, TSH, CRP, CMP ####[facility] [address] [place] [id number] Younger ER URINE PROFILEon 3 Bilirubin Ql (U) Negative Normal NEGATIVE [facility] Comment on above: Performed By: #### E RUR #### [facility] [address] [place], [place] [address] Dr. Cortez Younger Clarity (U) CLEAR Normal CLEAR [facility] Comment on above: Performed By: #### E RUR #### [facility] [address] [place] [address] [address] Cortez Younger Color (U) LT. YELLOW Normal YELLOW [facility] Comment on above: Performed By: #### E RUR #### [facility] [address] [place] [address] Dr. Cortez Younger ERUAHKuldeep A micrscopic examina tion will be performed if indicated. Normal [facility] Comment on above: Performed By: #### E RUR #### [facility] [address] [place] [address] Dr. Cortez Younger Glucose Ql (U) Negative Normal NEGATIVE [facility] Comment on above: Performed By: #### E RUR #### [facility] [address] [place] [address] Dr. Cortez Younger Hemoglobin Ql (U) Negative Normal NEGATIVE [facility] Comment on above: Performed By: #### E RUR #### [facility] [address] [place] [address] Dr. Cortez Younger Ketones Ql (U) Negative Normal NEGATIVE [facility] Comment on above: Performed By: #### E RUR #### [facility] [address] [place] [address] Dr. Cortez Younger LEUKOCYTES Negative Normal NEGATIVE [facility] Comment on above: Performed By: #### E RUR #### [facility] [address] [place] [address] Dr. Cortez Younger Nitrite Ql (U) Negative Normal NEGATIVE [facility] Comment on above: Performed By: #### E RUR #### [facility] [address] [place] [address] Dr. Cortez Younegr pH (U) 7.5 [pH] Normal 5-[address] [facility] Comment on above: Performed By: #### E RUR #### [facility] [address] [place] [address] Dr. Cortez Yuonger SPEC GRAVITY <=1.005 Abnormal 1.005-<=1.025 [facility] Comment on above: Performed By: #### E RUR #### [facility] [address] [place] [address] [address] Cortez Younger UA PROTEIN Negative Normal NEGATIVE/ TRACE [facility] Comment on above: Performed By: #### E RUR #### [facility] [address] [place] [address] [address] Cortez Younger UR MICRO IND NOT INDICATED Normal [facility] Comment on above: Performed By: #### E RUR #### [facility] [address] [place] [address] [address] Cortez Younger Urobilinogen Qn (U) 0.2 {Fidelia'U}/dL Normal 0.2 - 1. 0 [facility] Comment on above: Performed By: #### E RUR #### [facility] [address] [place] [address] Dr. Cortez Younger LACTATE/LACTIC ACIDon 2022 Lactate [Moles/Vol] 1.0 mmol/L Normal 0.4-2.0 [facility] Comment on above: Performed By: #### E RUR #### [facility] [address] [place] [address] [address] Cortez Younger LIPASEon 10-07-2022 Lipase [Catalytic activity/Vol] 84.0 U/L Normal 73.0-393.0 [facility] Comment on above: Performed By: #### L IPA, TSH, CRP, CMP ####[facility] [address] [place] [address]DrFish Younger PROF 14(COMP METB)on 023 Albumin [Mass/Vol] 3.9 g/dL Normal 3.4-5.0 [facility] Comment on above: Performed By: #### L IPA, TSH, CRP, CMP ####[facility] [address] [place] [address]Dr. Cortez Younger Albumin/Globulin [Mass ratio] 1.7 {ratio} Normal [facility] Comment on above: Performed By: #### L IPA, TSH, CRP, CMP ####[facility] [address]bi[address] [place] [address]Dr. Cortez Younger ALP [Catalytic activity/Vol] 78 U/L Normal 46-116 [facility] Comment on above: Performed By: #### L IPA, TSH, CRP, CMP ####[facility] [address] [place] [address]Dr. Cortez Younger ALT [Catalytic activity/Vol] 28 U/L Normal 16-63 [facility] Comment on above: Performed By: #### L IPA, TSH, CRP, CMP ####[facility] [address] [place] [address]Dr. Cortez Younger Anion gap [Moles/Vol] 12.1 mmol/L Normal [facility] Comment on above: Performed By: #### L IPA, TSH, CRP, CMP ####[facility] [address] [place], [place] [address]Dr. Cortez Younger AST [Catalytic activity/Vol] 15 U/L Normal 15-37 [facility] Comment on above: Performed By: #### L IPA, TSH, CRP, CMP ####[facility] [address] [place], [place] [address]Dr. Cortez Younger Bilirubin [Mass/Vol] 0.5 mg/dL Normal 0.2-1.0 [facility] Comment on above: Performed By: #### L IPA, TSH, CRP, CMP ####[facility] [address] [place] [address]Dr. Cortez Younger Calcium [Mass/Vol] 8.6 mg/dL Normal 8.5-10.1 [facility] Comment on above: Performed By: #### L IPA, TSH, CRP, CMP ####[facility] [address] [place] [address]Dr. Cortez Younger Chloride [Moles/Vol] 100 mmol/L Normal 98-[address] [facility] Comment on above: Performed By: #### L IPA, TSH, CRP, CMP ####[facility] [address] [place] [address]Dr. Cortez Younger CO2 [Moles/Vol] 28.8 mmol/L Normal 21.0-32.0 [facility] Comment on above: Performed By: #### L IPA, TSH, CRP, CMP ####[facility] [address] [place] [address]Dr. Cortez Younger Creatinine [Mass/Vol] 0.70 mg/dL Normal 0.70-1.30 [facility] Comment on above: Performed By: #### L IPA, TSH, CRP, CMP ####[facility] [address] [place], [place] [address]Dr. Cortez Younger EGFR-AF SAMOAN >60 Normal >=60 [facility] Comment on above: Performed By: #### L IPA, TSH, CRP, CMP ####[facility] [address] [place], [place] [address]Dr. Cortez Aren EGFR-NON AF SAMOAN >60 Normal >=60 [facility] Comment on above: Performed By: #### L IPA, TSH, CRP, CMP ####[facility] [address] [place], [place] [address]Dr. Cortez Younger Globulin (S) [Mass/Vol] 2.3 g/dL Normal [facility] Comment on above: Performed By: #### L IPA, TSH, CRP, CMP ####[facility] [address] [place], [place] [address]Dr. Cortez Aren Glucose [Mass/Vol] 111 mg/dL Critically high 74-106 [facility] Comment on above: Performed By: #### L IPA, TSH, CRP, CMP ####[facility] [address] [place], [place] [address]Dr. Cortez Younger Potassium [Moles/Vol] 3.9 mmol/L Normal 3.5-5.1 [facility] Comment on above: Performed By: #### L IPA, TSH, CRP, CMP ####[facility] [address] [place], [place] [address]Dr. Cortez Younger Protein [Mass/Vol] 6.2 g/dL Critically low 6.4-8.2 [facility] Comment on above: Performed By: #### L IPA, TSH, CRP, CMP ####[facility] [address] [place], [place] [address]Dr. Cortez Younger Sodium [Moles/Vol] 137 mmol/L Normal 136-145 [facility] Comment on above: Performed By: #### L IPA, TSH, CRP, CMP ####[facility] [address] [place] [id number]. Cortez Younger Urea nitrogen [Mass/Vol] 6.0 mg/dL Critically low 7.0-18.0 [facility] Comment on above: Performed By: #### L IPA, TSH, CRP, CMP ####[facility] [address] [place] [id number]. Cortez Younger Urea nitrogen/Creatinine [Mass ratio] 8.6 mg/mg Normal [facility] Comment on above: Performed By: #### L IPA, TSH, CRP, CMP ####[facility] [address] [place] [id number]. Cortez Younger SED RATE [facility] 2022 SED RATE <1 Normal <=20 [facility] Comment on above: Performed By: #### C BC #### [facility] [address] [address] [address] Cortez Younger TSHon 10-07-2022 TSH 1.031 uIU/mL Normal 0.358-3.740 [facility] Comment on above: Performed By: #### L IPA, TSH, CRP, CMP ####[facility] [address] [place] [address]Dr. Cortez Younger [facility]13 SARS-CoV-2 (COVID-19) RNA AXEL+probe Ql (Unsp spec) Not detected Normal NOT DETECTED [facility] Comment on above: Result Comment: When [...] for this test is supported by the [place] of Health and Human Service's declaration that [...] used). Performed By: #### C BC #### [facility] [address] [place] [address] Dr. Cortez Younger INFLUENZA A AND B [facility] 05-28 INFLUANEGH SEE BELOW Normal [facility] Comment on above: Result Comment: Nega tive for Flu A protein angiten. Infection due to Flu A cannot be ruled out. Flu A angiten in the sample may be below the detection limit of the test. Performed By: #### E RUR #### [facility] [address] [place] [address] Dr. Cortez Younger INFLUBNEGH SEE BELOW Normal [facility] Comment on above: Result Comment: Nega tive for Flu B protein antigen. Infection due to Flu B cannot be ruled out. Flu B antigen in the sample may be below the detection limit of the test. Performed By: #### E RUR #### [facility] [address] [place] [address] Dr. Cortez Younger INFLUENZA A AG Negative Normal NEGATIVE SEE COMMENT [facility] Comment on above: Performed By: #### E RUR #### [facility] [address] [place] [address] Dr. Cortez Younger INFLUENZA B AG Negative Normal NEGATIVE SEE COMMENT [facility] Comment on above: Performed By: #### E RUR #### [facility] [address] [place] [address] Dr. Cortez Younger INTERNAL CONTROLS Within Normal Limits Normal Wi thin Normal Limits [facility] Comment on above: Performed By: #### E RUR #### [facility] [address] [place] [address] Dr. Cotrez Younger XR CHEST 1 Von 05-28-2022 XR [...] KAIA SHEIKH Date: 2022-05-28 13:[address] [facility] PROF 14(COMP METB)on 022 Albumin [Mass/Vol] 3.9 g/dL Normal 3.4-5.0 [facility] Comment on above: Performed By: #### C MP #### [facility] [address] [place] [address] Dr. Cortez Younger Albumin/Globulin [Mass ratio] 1.4 {ratio} Normal [facility] Comment on above: Performed By: #### C MP #### [facility] [address] [place] [address] Dr. Cortez Younger ALP [Catalytic activity/Vol] 81 U/L Normal 46-116 [facility] Comment on above: Performed By: #### C MP #### [facility] [address] [place] [address] Dr. Cortez Younger ALT [Catalytic activity/Vol] 19 U/L Normal 16-63 [facility] Comment on above: Performed By: #### C MP #### [facility] [address] [place] [address] Dr. Cortez Younger Anion gap [Moles/Vol] 12.3 mmol/L Normal [facility] Comment on above: Performed By: #### C MP #### [facility] [address] [place] [address] Dr. Cortez Younger AST [Catalytic activity/Vol] 15 U/L Normal 15-37 [facility] Comment on above: Performed By: #### C MP #### [facility] [address] [place] [address] Dr. Cortez Younger Bilirubin [Mass/Vol] 0.3 mg/dL Normal 0.2-1.0 [facility] Comment on above: Performed By: #### C MP #### [facility] [address] [address] [address] Cortez Younger Calcium [Mass/Vol] 8.6 mg/dL Normal 8.5-10.1 [facility] Comment on above: Performed By: #### C MP #### [facility] [address] [place] [address] [address] Cortez Younger Chloride [Moles/Vol] 101 mmol/L Normal 98-[address] [facility] Comment on above: Performed By: #### C MP #### [facility] [address] [address] [address] Cortez Younger CO2 [Moles/Vol] 30.6 mmol/L Normal 21.0-32.0 [facility] Comment on above: Performed By: #### C MP #### [facility] [address] [place] [address] Dr. Cortez Younger Creatinine [Mass/Vol] 0.75 mg/dL Normal 0.70-1.[address] [facility] Comment on above: Performed By: #### C MP #### [facility] [address] [place] [address] Dr. Cortez Younger EGFR-AF SAMOAN >60 Normal >=60 [facility] Comment on above: Performed By: #### C MP #### [facility] [address] [place] [address] Dr. Cortez Younger EGFR-NON AF SAMOAN >60 Normal >=[address] [facility] Comment on above: Performed By: #### C MP #### [facility] [address] [place] [address] Dr. Cortez Younger Globulin (S) [Mass/Vol] 2.8 g/dL Normal [facility] Comment on above: Performed By: #### C MP #### [facility] [address] [place] [address] Dr. Cortez Younger Glucose [Mass/Vol] 98 mg/dL Normal 74-106 [facility] Comment on above: Performed By: #### C MP #### [facility] [address] [place] [address] Dr. Cortez Younger Potassium [Moles/Vol] 3.9 mmol/L Normal 3.5-5.1 [facility] Comment on above: Performed By: #### C MP #### [facility] [address] [place] [address] Dr. Cortez Younger Protein [Mass/Vol] 6.7 g/dL Normal 6.4-8.2 [facility] Comment on above: Performed By: #### C MP #### [facility] [address] [address] [address] Cortez Younger Sodium [Moles/Vol] 140 mmol/L Normal 136-145 [facility] Comment on above: Performed By: #### C MP #### [facility] [address] [place] [address] Dr. Cortez Younger Urea nitrogen [Mass/Vol] 5.0 mg/dL Critically low 7.0-18.0 [facility] Comment on above: Performed By: #### C MP #### [facility] [address] [place] [address] Dr. Cortez Younger Urea nitrogen/Creatinine [Mass ratio] 6.7 mg/mg Normal [facility] Comment on above: Performed By: #### C MP #### [facility] [address] [place] [address] Dr. Cortez Younger CBC AUTO DIFFon 01-18-2022 BASO # 0.0 103/ul Normal 0.0-0.1 [facility] Comment on above: Performed By: #### C BC #### [facility] [address] [place] [address] Dr. Cortez Younger Basophils/100 WBC (Bld) 0.1 % Critically low 0.2-2.0 [facility] Comment on above: Performed By: #### C BC #### [facility] [address] [place] [address] Dr. Cortez Younger EO # 0.0 103/ul Normal 0.0-0.7 [facility] Comment on above: Performed By: #### C BC #### [facility] [address] [place] [address] Dr. Cortez Younger Eosinophils/100 WBC (Bld) 0.0 % Critically low 0.9-7.0 [facility] Comment on above: Performed By: #### C BC #### [facility] [address] [place] [address] Dr. Cortez Younger Erythrocyte distribution width (RBC) [Ratio] 12.8 % Normal 11.0-15.0 [facility] Comment on above: Performed By: #### C BC #### [facility] [address] [place] [address] Dr. Cortez Younger Hematocrit (Bld) [Volume fraction] 42.7 % Normal 42.0-54.0 [facility] Comment on above: Performed By: #### C BC #### [facility] [address] [place] [address] Dr. Cortez Younger Hemoglobin (Bld) [Mass/Vol] 15.3 g/dL Normal 14.0-18.0 [facility] Comment on above: Performed By: #### C BC #### [facility] [address] [place] [address] Dr. Cortez Younger IG # 0.10 10e3/ul Critically high 0.00-0.[address] [facility] Comment on above: Performed By: #### C BC #### [facility] [address] [place] [address] Dr. Cortez Younger IG % 0.7 % Critically high 0.0-0.5 [facility] Comment on above: Performed By: #### C BC #### [facility] [address] [place] [address] Dr. Cortez Younger LYMPH # 1.9 103/ul Normal 1.2-3.[address] [facility] Comment on above: Performed By: #### C BC #### [facility] [address] [place] [address] Dr. Cortez Younger Lymphocytes/100 WBC (Bld) 13.5 % Critically low 20.5-60.0 [facility] Comment on above: Performed By: #### C BC #### [facility] [address] [place] [address] Dr. Cortez Younger MANUAL DIFF REQ NO Normal [facility] Comment on above: Performed By: #### C BC #### [facility] [address] [place] [address] Dr. Cortez Younger MCH (RBC) [Entitic mass] 31.4 pg Normal 25.9-34.0 [facility] Comment on above: Performed By: #### C BC #### [facility] [address] [place] [address] Dr. Cortez Younger MCHC (RBC) [Mass/Vol] 35.8 g/dL Critically high 29.9-35.2 [facility] Comment on above: Performed By: #### C BC #### [facility] [address] [place] [address] Dr. Cortez Younger MCV (RBC) [Entitic vol] 87.5 fL Normal 80.0-94.0 [facility] Comment on above: Performed By: #### C BC #### [facility] [address] [place] [address] Dr. Cortez Younger MONO # 0.8 103/ul Normal 0.3-0.8 [facility] Comment on above: Performed By: #### C BC #### [facility] [address] [place] [address] Dr. Cortez Younger Monocytes/100 WBC (Bld) 5.6 % Normal 1.7-12.0 [facility] Comment on above: Performed By: #### C BC #### [facility] [address] [place] [address] Dr. Cortez Younger NEUT # 11.4 103/ul Critically high 1.4-6.5 [facility] Comment on above: Performed By: #### C BC #### [facility] [address] [place] [address] Dr. Cortez Younger Neutrophils/100 WBC (Bld) 80.1 % Critically high 43.0-75.0 [facility] Comment on above: Performed By: #### C BC #### [facility] [address] [place] [address] Dr. Cortez Younger Platelet mean volume (Bld) [Entitic vol] 8.4 fL Critically low 9.5-13.5 [facility] Comment on above: Performed By: #### C BC #### [facility] [address] [place] [address] Dr. Cortez Younger PLT 352 103/ul Normal 150-450 [facility] Comment on above: Performed By: #### C BC #### [facility] [address] [place] [address] Dr. Cortez Younger RBC 4.88 106/ul Normal 4.70-6.10 [facility] Comment on above: Performed By: #### C BC #### [facility] [address] [place] [address] Dr. Cortez Younger WBC 14.2 103/ul Critically high 4.0-11.0 [facility] Comment on above: Performed By: #### C BC #### [facility] [address] [place] [address] Dr. Cortez Younger PROF 14(COMP METB)on 022 Albumin [Mass/Vol] 4.1 g/dL Normal 3.4-5.0 [facility] Comment on above: Performed By: #### C MP #### [facility] [address] [place] [address] Dr. Cortez Younger Albumin/Globulin [Mass ratio] 1.5 {ratio} Normal [facility] Comment on above: Performed By: #### C MP #### [facility] [address] [place] [address] Dr. Cortez Younger ALP [Catalytic activity/Vol] 77 U/L Normal 46-[address] [facility] Comment on above: Performed By: #### C MP #### [facility] [address] [place] [address] Dr. Cortez Younger ALT [Catalytic activity/Vol] 19 U/L Normal 16-63 [facility] Comment on above: Performed By: #### C MP #### [facility] [address] [place] [address] Dr. Cortez Younger Anion gap [Moles/Vol] 10.6 mmol/L Normal [facility] Comment on above: Performed By: #### C MP #### [facility] [address] [address] [address] Cortez Younger AST [Catalytic activity/Vol] 8 U/L Critically low 15-37 [facility] Comment on above: Performed By: #### C MP #### [facility] [address] [address] [address] Cortez Younger Bilirubin [Mass/Vol] 0.3 mg/dL Normal 0.2-1.0 [facility] Comment on above: Performed By: #### C MP #### [facility] [address] [address] [address] Cortez Younger Calcium [Mass/Vol] 8.9 mg/dL Normal 8.5-10.1 [facility] Comment on above: Performed By: #### C MP #### [facility] [address] [address] [address] Cortez Younger Chloride [Moles/Vol] 91 mmol/L Critically low 98-107 [facility] Comment on above: Performed By: #### C MP #### [facility] [address] [address] [address] Cortez Younger CO2 [Moles/Vol] 30.1 mmol/L Normal 21.0-32.0 [facility] Comment on above: Performed By: #### C MP #### [facility] [address] [address] [address] Cortez Younger Creatinine [Mass/Vol] 0.88 mg/dL Normal 0.70-1.30 [facility] Comment on above: Performed By: #### C MP #### [facility] [address] [address] [address] Cortez Younger EGFR-AF SAMOAN >60 Normal >=60 [facility] Comment on above: Performed By: #### C MP #### [facility] [address] [address] [address] Cortez Younger EGFR-NON AF SAMOAN >60 Normal >=60 [facility] Comment on above: Performed By: #### C MP #### [facility] [address] [address] [address] oCrtez Younger Globulin (S) [Mass/Vol] 2.8 g/dL Normal [facility] Comment on above: Performed By: #### C MP #### [facility] [address] [address] [address] Cortez Younger Glucose [Mass/Vol] 112 mg/dL Critically high 74-106 [facility] Comment on above: Performed By: #### C MP #### [facility] [address] [address] [address] Cortez Younger Potassium [Moles/Vol] 3.7 mmol/L Normal 3.5-5.1 [facility] Comment on above: Performed By: #### C MP #### [facility] [address] [address] [address] Cortez Younger Protein [Mass/Vol] 6.9 g/dL Normal 6.4-8.2 [facility] Comment on above: Performed By: #### C MP #### [facility] [address] [address] [address] Cortez Younger Sodium [Moles/Vol] 128 mmol/L Critically low 136-145 [facility] Comment on above: Performed By: #### C MP #### [facility] [address] [address] [address] Cortez Younger Urea nitrogen [Mass/Vol] 9.0 mg/dL Normal 7.0-18.0 [facility] Comment on above: Performed By: #### C MP #### [facility] [address] [address] [address] Cortez Younger Urea nitrogen/Creatinine [Mass ratio] 10.2 mg/mg Normal [facility] Comment on above: Performed By: #### C MP #### [facility] [address] [address] [address] Cortez Younger SED RATE [facility] 2021 SED RATE <1 Normal <=20 [facility] Comment on above: Performed By: #### S EDR ####[facility] [address] [place] [address]Dr. Cortez Younger UA RANDOMon 01-18-2022 Bilirubin Ql (U) Negative Normal NEGATIVE [facility] Comment on above: Performed By: #### E RUR #### [facility] [address] [place] [address] Dr. Cortez Younger Clarity (U) CLEAR Normal CLEAR [facility] Comment on above: Performed By: #### E RUR #### [facility] [address] [place] [address] Dr. Cortez Younger Color (U) LT. YELLOW Normal YELLOW [facility] Comment on above: Performed By: #### E RUR #### [facility] [address] [place] [address] Dr. Cortez Younger Glucose Ql (U) Negative Normal NEGATIVE [facility] Comment on above: Performed By: #### E RUR #### [facility] [address] [place] [address] Dr. Cortez Younger Hemoglobin Ql (U) TRACE-LYSED Abnormal NEGATIVE [facility] Comment on above: Performed By: #### E RUR #### [facility] [address] [place] [address] Dr. Cortez Younger Ketones Ql (U) Negative Normal NEGATIVE [facility] Comment on above: Performed By: #### E RUR #### [facility] [address] [place] [address] Dr. Cortez Younger LEUKOCYTES TRACE Abnormal NEGATIVE [facility] Comment on above: Performed By: #### E RUR #### [facility] [address] [place] [address] Dr. Cortez Younger Nitrite Ql (U) Negative Normal NEGATIVE [facility] Comment on above: Performed By: #### E RUR #### [facility] [address] [place] [address] Dr. Cortez Younger pH (U) 6.5 [pH] Normal 5-9 [facility] Comment on above: Performed By: #### E RUR #### [facility] [address] [place] [address] Dr. Cortez Younger SPEC GRAVITY <=1.005 Abnormal 1.005-<=1.025 [facility] Comment on above: Performed By: #### E RUR #### [facility] [address] [address] [address] Cortez Younger UA PROTEIN Negative Normal NEGATIVE/ TRACE [facility] Comment on above: Performed By: #### E RUR #### [facility] [address] [id number] Cortez Younger Urobilinogen Qn (U) 0.2 {Fidelia'U}/dL Normal 0.2 - 1. 0 [facility] Comment on above: Performed By: #### E RUR #### [facility] [address] [place], [place] [id number] Dr. Cortez Younger MRI CSPINE WO W [...] VERN LU Date: 2022-01-17 16:[address] [facility] MRI TSPINE WO W CONon 2021 [...] VERN LU Date: 2022-01-17 16:[address] [facility] MRI BRAIN WO W CONon 022 [...] by: VERN LU Date: 2022-01-03 08:03 Normal [facility] Patient Educationon 12-25-19 22 Patient Education Oncology [...] including vitamins, herbs, eye drops, creams, and rucc-leh-ruqblhb medicines. This also includes: ? Medicines to [...] 08/01/2005 Document Revised: 06/11/2018 Document Reviewed: 04/05/2018 [employer] Patient Education ? 2019 [employer]. [facility] Urology Office/Clinic Noteon 12-24-2021 Urology Office/Clinic [...] Urnls Dip Stick Auto w/o Microscopy POC 31234 3. Elevated PSA (R97.20: Elevated prostate specific antigen [PSA]) Most recent PSA done 08/13/21 5.24 Ordered: Urnls Dip Stick Auto w/o Microscopy POC 42288 Other obstructive and reflux uropathy (N13.8: Other obstructive and reflux uropathy) Follow-up With When Contact Information Star Manley MD, Gustavo Orlando, URO In 6 months [facility] [address], [place] [address]- Additional Instructions: w/ PVR Patient Education Prostate-Specific [...] tab(s), Or (more content not included)... Normal [facility] Comment on above: Result Comment: Elec tronically Signed By: Star Manley MD, Gustavo Orlando\.br\Date and Time Signed: 12/24/21 10:52 EDT\.br\Electronically Co-Signed By: Lynda Ortega\.br\Date and Time Co-Signed: 12/24/21 10:47 EDT Lab Reportson 12-16-2021 Lab Reports .. [id number]: 127 [facility] Lab Reports [id number]: 127 Normal [facility] CULTURE URINEon 12-12-2021 CULTURE URINE Culture Observations : No growth Normal [facility] Comment on above: Performed By: #### U RCX ####[facility] [address] [place] [address]Dr. Cortez Younger UA RANDOMon 12-12-2021 Bilirubin Ql (U) Negative Normal NEGATIVE [facility] Comment on above: Performed By: #### U A #### [facility] [address] [address] [address] Cortez Younger Clarity (U) CLEAR Normal CLEAR [facility] Comment on above: Performed By: #### U A #### [facility] [address] [address] [address] Cortez Younger Color (U) LT. YELLOW Normal YELLOW [facility] Comment on above: Performed By: #### U A #### [facility] [address] [place] [address] Dr. Cortez Younger Glucose Ql (U) Negative Normal NEGATIVE [facility] Comment on above: Performed By: #### U A #### [facility] [address] [address] [address] Cortez Younger Hemoglobin Ql (U) LARGE Abnormal NEGATIVE [facility] Comment on above: Performed By: #### U A #### [facility] [address] [place] [address] Dr. Cortez Younger Ketones Ql (U) Negative Normal NEGATIVE [facility] Comment on above: Performed By: #### U A #### [facility] [address] [address] [address] Cortez Younger LEUKOCYTES Negative Normal NEGATIVE [facility] Comment on above: Performed By: #### U A #### [facility] [address] [address] [address] Cortez Younger Nitrite Ql (U) Negative Normal NEGATIVE [facility] Comment on above: Performed By: #### U A #### [facility] [address] [address] [address] Cortez Younger pH (U) 7.0 [pH] Normal 5-9 [facility] Comment on above: Performed By: #### U A #### [facility] [address] [address] [address] Cortez Younger SPEC GRAVITY 1.010 Normal 1.005-<=1.025 [facility] Comment on above: Performed By: #### U A #### [facility] [address] [address] [address] Cortez Younger UA PROTEIN Negative Normal NEGATIVE/ TRACE [facility] Comment on above: Performed By: #### U A #### [facility] [address] [address] [address] Cortez Younger Urobilinogen Qn (U) 0.2 {Fidelia'U}/dL Normal 0.2 - 1. 0 [facility] Comment on above: Performed By: #### U A #### [facility] [address] [address] [address] Cortez Younger Coding Summary.on 12-06-2021 Coding Summary. CD:[id number] Gh0b Ww+PGhlYWQ+AL9CLAHaL62nv HPobO1SW8aYQC7PDZBJQUXBJ B4RCI2irXU4SJxiK3LpiuMp GhkbhGLlLA80FBp9SEX1rAad VAwalC7dfINqJ5t3IqFrDQ45 qP87QTtzLFCiGfU7WgHxnqtw bWFy N4agGxJwmYUeUcg+PHRhYmxl IHdpZHRoPScxMDAlJyBzdHls TZ7qQt0dITHfCVOjxFomeBVc OiBj m6dvBWWzVInmUT0qmXqeJ7Fl wGI7WEUec4c3Fj06bZV+PHRk IUW8pUdyCHjui842VdKlw9zq IDM3 cZWjRFkjRJQ4C49yc2N4VASo BEKhEWX8rVU5aP8krCvxfpry T4FagYIcTiC2VBX5hXKkgM7g bGln wipxzG6eBko+K70JXP8KPDLS HL0XBor5E7OjDywqwOA+PC90 FXEjOP46uISyeKMiu8jmjQk8 JzEw VKFcGDE4hLxxMAjrc9ChMFNs F98ltZUmo2N4JEKnwZkbfMKu OeYwmAW5mA0jFCpnzkran0tx dzsn Bdect8dyag12xE24P49zJOjw ZGQkMHT6IGLzZCJbeEqhhh6d qT0mKg7+SMvtw1msi8jbwYf3 IjIw TRDfqwBpeEdyCYV4p4BhGc79 U0NpgMklr0HhUvn6qt86sNRf w5X2yFX4IOcpPAOmrN5bOIjm ZnQ6 VVBcYzCevW00kZNaGEvaOw1j tObhqNbkTW3iCZRbtinmQKQc lO6fQZWvwSFuqWiaQX7cWWGd bjtm z727MzZvMEZ5JMVgvOYeV1Rw eP3hVcFvIEWaPWLsQ6KzvPBq STqrV068YNipRtD1GLZiehXu Y2Fs GZTccOtvOeE8y3D3As8Gy2Cb mjjoXJB2JYxsGNO8IxY9ZoLo XiT8P1ErTna9TUOkuSwrFA0y J3Bh EABqjlvcbchplXR0UMKvSSAx rJ64rSTzFKoiNc5rq2V5u990 VKNtPESuqE17Ch3zsEheIUOk dCBU sQ6xkvtcz7lukxksMbZqHNKu GKx7PCq4DJKxpDnqNdBmPCI3 XxG4IIP3mSFcfS9gfGoyhptd dG9w Oyc+U13ckV4oBYN5SME7ydeu EPUnpqExZF06TC08N8SiTbhi dGFibGU+IMUloiOttUhuTN4i YmFj t6xjp3QrDZthK9TjKWMgVWdj Yei0WAArGMV7fYX9qP8yXGAy WUchh9O5vGS2I3WkubEvmd4a b2xs JFKlBOaoT42sdXRnn9N0XEBj iDN1TIXgjTrvXqSmpU60Rav+ SUMsuIzvt2PbEtygq1vzf5zr dGg9 ZuNqDVUnikBfpEjgRVC3z1Dc Am60J37fHWjcLZUbOPRzVPMf JVUkqWsgyo5owY9qMi6+PGNv bCB3 uAX1pU9iUZDoHyP4TOjeO818 MfWaxCXwPyiwq7ara1aroJj8 SpHhMHIclnEaqAeeXLJ7x5Sb Lz48 Q25yPOemTYEhLQYiWQWcNKGj kOrvuw4ksS5nEr8+DL4bp3fu nu21gN54sNV+QPHhKMS0mJvn PSdw VKWubY4wQGyjCgL2KUWhKbVi kT16sODtRDkqUg2aeVuumYcc JR2fMJVhfvawa124WoDsk8wy IDEw wLYfAUktQXT6S45wr0S9RTDt FRXoWTN5dHH4aF3waYpoduth bGVmdDsgdmVydGljYWwtYWxp Z246 IHRvcDsnPlBhdGllbnQgTmFt RTz8V7KjElc6XARmvBrxLE5x oFRrRZniYt7eeNyymRdhPO0j NTBp fdgbx628FvTso9vqCXBnxXCt JCiuUCS9M66fl1G4ZRPqFFVi OJQ6aAS4rH6iaBkloxyiyUGp dDsg twCepNsyOPfsMOxvE646GBWf lBphWzNilbZtEAGltPS6OG94 MY71yJPlc5V3kFL3I4AeRFEz bmct zdkdyMR6MNIhIUQfdN75Ft6w gWmaJu9yTOVfCPK9MTFyyNQw D3VkiO8xFwVtYTPmXLTjA6Zq eHQt ALokZ978OHxvTsS1HRXioiGy Z7BaPKGqkRkcNaE3l1Y6Vl3K I4G2CE56VJ01jXOvv2E3xJE1 J3Bh LRDjzlcfyumocPA9ZTReDYTf mA48Qo7vrRezTn2fWEZbZHE9 MEHtkYMlJ7ClyJ3nKfCxUNPk MDAw E8YocEMqBUnoV680CJefCoZ5 GFQdwmNfC0LrRZXjsGbbJfM1 n9Y1Rs2ZBBm5IU15JU84vZUu c3R5 uVZ4D7UnCFCwepdsvzvosBL2 LNIcYMPalO59We8onDslXz1d MYZqLIV7ZBZdvPAsP6EtyX5b OiAj TKBbCMEzE8ZcyTEuBJekZ111 VTazYiK2THTnlgEmF6SlCHWt yRghFfN4o1N7Bz3FQORwOI63 IFR5 oYI2IZ07FI56M1AfKasmlMEq bGU+PHRhYmxlIHdpZHRoPScx UTLnGhBktVlkQY7eGm2pRJWe LWNv yFpizCFdOsCif1vkZNJgERcd VR7sbEsrP2YzoRQ3MFApv4t0 Dc94C21eQ3XazEY+PGNvbCB3 aWR0 dM3bRhHzEqP5KGloX238ZmBl nJJnCaqwj8uvs6ynpCn3BxP9 LABjreCnsBbtUHF3q2ZpHg03 Y29s IHdpZHRoPSIxNSUiIHZhbGln tu4ixK7uKc6+JHDykKK4fPI2 oB2sSjVmOfP2DCbdA325CrXf cCIv Rlpae2ydf6iexYb3LeLeMVMf nxCjyUvqRIH2o7NhOn15U9Je wLznu0DkAne8xz65gULng9C7 bGU9 T6TdALTtcrphqHAqlQugLG4z HHPmzqhnJFTtcC2uVGPgC9d9 WvJcYlD9AMtzI3KjsqA1EMOc cHQg IAclNFU2Q71qv4M1LMGtRVQb IWR5nPO5rS1zxOzelfrirECm cCbciuLczKzuXLwvXAadE405 IHRv aFncXNXnlX4eZGWjbOOanGgq TA5iRGRslttlOvZWVbXCN1yC LCoaM3LUNT5uWHlcyVU+PHRk IHN0 wVddGHsxIHFleS3eQXOaR9j0 BqMhSrO7ZBixS2FaYNJesxwx Fb39dL3kGiGxYcJ2RHkaE3Ea bnQ6 ZDGfeBGrWRvrNMT4W15fe2N8 YGVwFZPoHUG2lOS1bT9toSqw bjogbGVmdDsgdmVydGljYWwt YWxp X027XMUrdOzmGtW4VfFbLzA2 Div5U0VcTkf9DWOlgShjUV1w dLVeLOovAc2zkLdksEvdHS5o NTBp yhgfTIYkmW7eSRQmxTLsvCap HY5rGCNiulgiy621SiRfDKD4 ZTHdpKWaY4IrrH3jFmOvBHLx MDAw R3KekPXpYBlaJ346EWtdTuW4 HJXgkcAnN8FwRGByfNsbOfP4 w3F9Sh18SjFESDJnhczvgWL+ PHRk XLM4nElhKZrpNQJaoZ0uUZKv V3v8RwMtRvC7HZgiO4PeNOZt ojnpAg79bN9rWwAuVlS2MHzm O2Zv luX9BFXwdXSjLRrkFML6U92y p0R1GRNxTMCqQAC3fGI6kX1d bGlnbjogbGVmdDsgdmVydGlj YWwt WTtrQ417GLKunTifSp4srAJ4 G4JvVyt4HXMcqMohYM3zuQXn XWzeMr1ihMdziFntLN6aGUYn bjtw VEXtoU1dGTStvKTfbXjrRO8b FNPiipadd764SqSrSBJ4VPYg gKCaP8FybT3aCtOkZPTkKWKu O3Rl uQOnZJpyJ306PLkzAaK4CYEq mtUzK4HfRUSbpBwsGmD0f9O9 Kr7BaHZmSGZoYD99BE05DW38 L3Ry PjwvdGFibGU+PHRhYmxlIHdp OZJxIMogYBFoTlEywKblVK2n Qr4zJACsKUOpwOfefWXgDqAv b2xs CPToBQbvEW6hqMmpT1EnjMQ8 DWBow9b6Fl67C07pV6LdsIM+ KRJdrZE0cRN0oG6fEgAiZlV5 YWxp J561PbXuwSHqXhrvw3jsl5bq qEe0PuWxDPIbqhMvpOrsGGL3 z4PaAy95Y64xFMyjOLZlCOHx MCUi RIBwsZthvg4dgJ5aBq3+PGNv xPW7bDH0vJ6iZcDsKkG9BFhe E391EaTyrHOyJzknU47aQ4Fc dXA+ VQPcHoz1WZVkjEbpHT5dfWQd DLtrJv3dRZN0JtUcBdEwOEqx M3YuFBDiwnvxhglnbUH7MXGs MDUw wK34Yf0wmHiwAs7yAQOpSBH2 NUUisLFvW7VttP3cDcFqLWHn SPCjV2OvuOZtATguD613QVxb ZnQ7 WPSyitNeT6PzSYPtpNfiMlP7 f8R1Vp4DlYhtiPAnLY2eSaUb SDx0M1UyGrf9RBNdbWojNO4r cGFk GCtbIi1roLxptZweIU9dBTRj yuyka134MhOjr8ilUJWbrIQy FVzuMDG6G12nd7W1JSHzKZBs MDA7 oSD9nR5udLbffxafxNKtrWga buYhqDbzJKjvNAwtV173ZNDi xKcdMbEDUlh7M0AeNdz4SKHo dHls QD3crZVcWApfXd0wxStskUqs DF5rYOEvifmme972LmUif3ld UIEcfPTnMJgmDMG2O36hj5B8 ICMw IGRqAAX6rLJ0aY4yyVwxruxi bGVmdDsgdmVydGljYWwtYWxp X361UAObmVacJd3DNna5S2Ah Pjx0 BUVkwKlyAF7tkHKkBYqzLe4x pZjxaScyWC5gLXDrffiwu478 XeXzj9dnKBJfwAFhPCqyGVU0 Y29s b4P8SRMzFXCwOYA2uYV2cF9x bGlnbjogbGVmdDsgdmVydGlj RVmoEQjfB518FOIttDbcMzHu eWVy OjwvdGQ+PF77dz99P3BtMerq Toe3DOQfABO7mMJ2fV2aBRXx SGkcg7U7lGH5O1JogiIqlh4m b2xs YXBz (more content not included)... [facility] Consent for Procedure/Surger yon 12-05-2021 Consent for Procedure/Surgery [id number]#1.00CD :127 [facility] Consent for Treatmenton 05-2 Consent for Treatment [id number]#1.00CD: 127 [facility] IntraOperative Documentson 0 12-05-2021 IntraOperative Documents [id number]#1.00CD :127 [facility] Main OR Intraoperative Recor don 12-05-2021 Main OR Intraoperative Record IntraOp Document Type FTURO Summary Primary Physician: Gustavo Graves Jr., MD Finalized Date/Time: 12/05/21 13:57:51 Pt. Name: HARISH MCKENNA /Sex: 1970 Male Med Rec #: [id number] Physician: Gustavo Graves Jr., MD Financial #: [id number] Pt. Type: O Room/Bed: / Admit/Disch: 12/05/21 11:48:14 - Institution: Case Times FTURO Entry 1 Patient Times In Room 12/05/21 13:23:00 Out Room 12/05/21 13:57:00 Procedure Times Start 12/05/21 13:40:00 Stop 12/05/21 13:53:00 Anesthesia Times Last Modified By: Veena Levin RN 12/05/21 13:57:47 Case Attendance FTURO Entry 1 Entry 2 Entry 3 Case Attendee Gustavo Graves Jr., MD BARBER INSTRUCTOR, Veena Brower BARBER INSTRUCTOR, Ni Aguirre Role Performed Surgeon - Primary [...] 12/05/21 13:57:48 Entry 4 Case Attendee Veena Leivn RN Role Performed Car Driver - Primary Time In 12/05/21 13:23:00 Time [...] Implant Implant Identification Description UROLIFT Lot Number [id number] 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 Normal [facility] Main OR Preoperative Recordo n 12-05-2021 Main OR Preoperative Record Holding Area Document Type FTURO Summary Primary Physician: Gustavo Graves Jr., MD Finalized Date/Time: 12/05/21 13:01:06 Pt. Name: HARISH MCKENNA./Sex: 1970 Male Med Rec #: [id number] Physician: Gustavo Graves Jr., MD Financial #: [id number] Pt. Type: O Room/Bed: / Admit/Disch: 12/05/21 [...] 12:28 Veena Levin RN 12/05/21 13:01 Normal [facility] Operative Reporton Operative Report Patient: HARISH [...] procedure (10 mg diazepam, 5/325 mg of Vina), Local Anesthesia (60cc 2% Xylocaine liquid inserted [...] well and was subsequently discharged home. Normal [facility] Comment on above: Result Comment: Elec tronically Signed By: Star Manley MD, Gustavo Orlando\.amanda\Date and Time Signed: 12/05/21 13:58 EDT CBC AUTO DIFFon 12-03-2021 BASO # 0.2 103/ul Critically high 0.0-0.1 [facility] Comment on above: Performed By: #### C BC ####[facility] [address] [place], [place] [address]EvFish Younger Basophils/100 WBC (Bld) 1.3 % Normal 0.2-2.0 [facility] Comment on above: Performed By: #### C BC ####[facility] [address] [place], [place] [address]SmFish Younger EO # 0.2 103/ul Normal 0.0-0.7 [facility] Comment on above: Performed By: #### C BC ####[facility] [address] [address]Dr. Cortez Younger Eosinophils/100 WBC (Bld) 1.8 % Normal 0.9-7.0 [facility] Comment on above: Performed By: #### C BC ####[facility] [address] [address]Dr. Cortez Younger Erythrocyte distribution width (RBC) [Ratio] 13.3 % Normal 11.0-15.0 [facility] Comment on above: Performed By: #### C BC ####[facility] [address] [address]Dr. Cortez Younger Hematocrit (Bld) [Volume fraction] 45.0 % Normal 42.0-54.0 [facility] Comment on above: Performed By: #### C BC ####[facility] [address] [place], [place] [address]Dr. Cortez Younger Hemoglobin (Bld) [Mass/Vol] 15.6 g/dL Normal 14.0-18.0 [facility] Comment on above: Performed By: #### C BC ####[facility] [address] [place], [place] [address]Dr. Cortez Younger IG # 0.05 10e3/ul Critically high 0.00-0.[address] [facility] Comment on above: Performed By: #### C BC ####[facility] [address] [place], [place] [address]Dr. Cortez Younger IG % 0.4 % Normal 0.0-0.5 [facility] Comment on above: Performed By: #### C BC ####[facility] [address] [place], [place] [address]Dr. Cortez Younger LYMPH # 1.8 103/ul Normal 1.2-3.[address] [facility] Comment on above: Performed By: #### C BC ####[facility] [address] [place], [place] [address]Dr. Cortez Younger Lymphocytes/100 WBC (Bld) 15.2 % Critically low 20.5-60.0 [facility] Comment on above: Performed By: #### C BC ####[facility] [address] [address]Dr. Cortez Younger MANUAL DIFF REQ NO Normal [facility] Comment on above: Performed By: #### C BC ####[facility] [address] [address] Cortez Younger MCH (RBC) [Entitic mass] 31.1 pg Normal 25.9-34.0 [facility] Comment on above: Performed By: #### C BC ####[facility] [address] [address]Dr. Cortez Younger MCHC (RBC) [Mass/Vol] 34.7 g/dL Normal 29.9-35.2 [facility] Comment on above: Performed By: #### C BC ####[facility] [address] [place], [place] [address]Dr. Cortez Younger MCV (RBC) [Entitic vol] 89.8 fL Normal 80.0-94.0 [facility] Comment on above: Performed By: #### C BC ####[facility] [address] [place], [place] [address]DrFish Younger MONO # 0.6 103/ul Normal 0.3-0.8 [facility] Comment on above: Performed By: #### C BC ####[facility] [address] [address]Dr. Cortez Younger Monocytes/100 WBC (Bld) 5.3 % Normal 1.7-12.0 [facility] Comment on above: Performed By: #### C BC ####[facility] [address] [place], [place] [address]DrFish Younger NEUT # 8.9 103/ul Critically high 1.4-6.5 [facility] Comment on above: Performed By: #### C BC ####[facility] [address] [address]DrFish Younger Neutrophils/100 WBC (Bld) 76.0 % Critically high 43.0-75.0 [facility] Comment on above: Performed By: #### C BC ####[facility] [address] [address]Dr. Cortez Younger Platelet mean volume (Bld) [Entitic vol] 8.9 fL Critically low 9.5-13.5 [facility] Comment on above: Performed By: #### C BC ####[facility] [address] [address]Dr. Cortez Younger PLT 414 103/ul Normal 150-450 [facility] Comment on above: Performed By: #### C BC ####[facility] [address] [address]Dr. Cortez Younger RBC 5.01 106/ul Normal 4.70-6.10 [facility] Comment on above: Performed By: #### C BC ####[facility] [address] [address]Dr. Cortez Younger WBC 11.7 103/ul Critically high 4.0-11.0 [facility] Comment on above: Performed By: #### C BC ####[facility] [address] [address]Dr. Cortez Younger PROF 14(COMP METB)on 022 Albumin [Mass/Vol] 3.8 g/dL Normal 3.4-5.0 [facility] Comment on above: Performed By: #### C BC #### [facility] [address] [address] [address] Cortez Younger Albumin/Globulin [Mass ratio] 1.3 {ratio} Normal [facility] Comment on above: Performed By: #### C BC #### [facility] [address] [address] [address] Cortez Younger ALP [Catalytic activity/Vol] 95 U/L Normal 46-116 [facility] Comment on above: Performed By: #### C BC #### [facility] [address] [address] [address] Cortez Younger ALT [Catalytic activity/Vol] 25 U/L Normal 16-63 [facility] Comment on above: Performed By: #### C BC #### [facility] [address] [address] [address] Cortez Younger Anion gap [Moles/Vol] 12.7 mmol/L Normal [facility] Comment on above: Performed By: #### C BC #### [facility] [address] [address] [address] Cortez Younger AST [Catalytic activity/Vol] 18 U/L Normal 15-37 [facility] Comment on above: Performed By: #### C BC #### [facility] [address] [address] [address] Cortez Younger Bilirubin [Mass/Vol] 0.3 mg/dL Normal 0.2-1.0 [facility] Comment on above: Performed By: #### C BC #### [facility] [address] [place] [address] Dr. Cortez Younger Calcium [Mass/Vol] mg/dL Normal 8.5-10.1 [facility] Comment on above: Performed By: #### C BC #### [facility] [address] [address] [address] Cortez Younger Chloride [Moles/Vol] 98 mmol/L Normal 98-107 [facility] Comment on above: Performed By: #### C BC #### [facility] [address] [place] [address] Dr. Cortez Younger CO2 [Moles/Vol] 28.9 mmol/L Normal 21.0-32.0 [facility] Comment on above: Performed By: #### C BC #### [facility] [address] [address] [address] Cortez Younger Creatinine [Mass/Vol] 0.84 mg/dL Normal 0.70-1.30 [facility] Comment on above: Performed By: #### C BC #### [facility] [address] [address] [address] Cortez Younger EGFR-AF SAMOAN >60 Normal >=60 [facility] Comment on above: Performed By: #### C BC #### [facility] [address] [address] [address] Cortez Younger EGFR-NON AF SAMOAN >60 Normal >=[address] [facility] Comment on above: Performed By: #### C BC #### [facility] [address] [place] [address] Dr. Cortez Younger Globulin (S) [Mass/Vol] 3.0 g/dL Normal [facility] Comment on above: Performed By: #### C BC #### [facility] [address] [address] [address] Cortez Younger Glucose [Mass/Vol] 104 mg/dL Normal 74-106 [facility] Comment on above: Performed By: #### C BC #### [facility] [address] [place] [address] Dr. Crotez Younger Potassium [Moles/Vol] 3.6 mmol/L Normal 3.5-5.1 [facility] Comment on above: Performed By: #### C BC #### [facility] [address] [place] [address] Dr. Cortez Younger Protein [Mass/Vol] 6.8 g/dL Normal 6.4-8.2 [facility] Comment on above: Performed By: #### C BC #### [facility] [address] [place] [address] Dr. Cortez Younger Sodium [Moles/Vol] 136 mmol/L Normal 136-145 [facility] Comment on above: Performed By: #### C BC #### [facility] [address] [place] [address] Dr. Cortez Younger Urea nitrogen [Mass/Vol] 6.0 mg/dL Critically low 7.0-18.0 [facility] Comment on above: Performed By: #### C BC #### [facility] [address] [place] [address] Dr. Cortez Younger Urea nitrogen/Creatinine [Mass ratio] 7.1 mg/mg Normal [facility] Comment on above: Performed By: #### C BC #### [facility] [address] [place] [address] Dr. Cortez Younger Consent for Procedure/Surger yon 10-15-2021 Consent for Procedure/Surgery [id number]: 127 Normal [facility] Patient Educationon 10-15-19 22 Patient Education [...] these instructions at home: Medicines ? Take bjif-pom-oqxexmc and prescription medicines only as told by [...] the blood stops without treatment. ? Take lzwe-qur-trbevkv and prescription medicines only as told by your health care provider. ? Drink enough fluid to keep your urine clear or pale yellow. This information is not intended to replace advice given to you by your health care provider. Make sure you discuss any questions you have with your health care provider. Document Released: 06/29/2006 Document Revised: 11/23/2019 Document Reviewed: 08/01/2017 [employer] Patient Education ? 2019 [employer] [facility] Urology Office/Clinic Noteon 10-14-2021 Urology Office/Clinic [...] [place], [facility] [address] [place] [address]- Additional Instructions: Patient Education Hematuria, Adult Jaret Finley personally scribed for Dr. Graves on 10/14/2021 13:40:09. . Documentation recorded by the Sharonda yao accurately reflects the services(s) I performed and decis (more content not included)... Normal [facility] Comment on above: Result Comment: Elec tronically Signed By: Gustavo Graves Jr., MD\.br\Date and Time Signed: 10/14/21 13:47 EDT\.br\Electronically Co-Signed By: Jaret Benz\.br\Date and Time Co-Signed: 10/14/21 13:40 EDT SURGICAL PATH REPORTon 01-25 SURGICAL PATH REPORT [facility] Department of Pathology [address] [place] [address] Name: HARISH MCKENNA : 1970 [facility] [id number] Number: Gender: Male Location: [facility] Admit 50 years Attending CRUZITO TOMLINSON JR Age: Provider: Ordering CRUZITO TOMLINSON JR Provider: Consulting: Surgical Pathology Report ACCESSION: COLLECTED DATE/TIME: RECEIVED DATE/TIME: PATHOLOGIST: [id number] 01/23/2021 12:05 EDT 01/24/2021 12:05 EDT ALVIN CADET MD Final Diagnosis Report for [facility], [place] [facility], BIOPSY: - MILD CHRONIC GASTRITIS. [...] MP/ts 01/24/2021 Tissue pathology report for: [facility], [address] [place] [id number]; Print Date/ 01/25/2021 12:34 EDT Number: Time: [facility] Department of Pathology [address] [place] [id number] Name: HARISH MCKENNA : 1970 [facility] [id number] Number: Gender: Male Location: [facility] Admit 50 years Attending CRUZITO TOMLINSON JR Age: Provider: Ordering CRUZITO TOMLINSON JR Provider: Consulting: Surgical Pathology Report ACCESSION: COLLECTED DATE/TIME: RECEIVED DATE/TIME: PATHOLOGIST: [id number] 01/23/2021 12:05 EDT 01/24/2021 12:05 EDT ALVIN CADET MD Gross Description PATHOLOGY SERVICES PROVIDED BY [facility] (CLIA #[id number]) in cooperation with [facility] at [address] [place] [address] (CLIA #[id number]) Microscopic Diagnosis NOTE: One or more of the reagents used to perform assays on this specimen MAY have contained components considered to be analyte specific reagents ( ASRs). ASRs have not been cleared or approved by the U.S. Food and Drug Administration. The performance characteristics of these assays have been determined by the Department of Pathology at [facility]. This assay was performed subsequent to the H and E examination. Appropriate positive and negative controls were examined with appropriate reactivity. Codes CPT CODE: 92096 [id number] Print Date01/25/2021 12:34 EDT Number: Time: Normal [facility] Comment on above: Performed By: #### [id number] #### [facility] [address] [place] [id number] [employer]el Engine Engineer: Alvin Cadet MD Vital Signs Date Time Vital Sign Value Performing Clinician Facility 03-25-2023 13:30-0400 Body height 177.8 cm Mahnaz Roth Other [facility] Other 03-25-2023 13:30-0400 Body mass index (BMI) [Ratio] 18.65 kg/m2 Mahnaz Roth Other [facility] Other 03-25-2023 13:30-0400 Body temperature 98.4 [degF] Mahnaz Roth Other [facility] Other 03-25-2023 13:30-0400 Body weight 58.97 kg Mahnaz Roth Other [facility] Other 03-25-2023 13:30-0400 Diastolic blood pressure 87 mm[Hg] Mahnaz Marcelinow Other [facility] Other 03-25-2023 13:30-0400 Systolic blood pressure 135 mm[Hg] Mahnaz Marcelinow Other [facility] Other 12-24-2021 09:50-0400 Blood Pressure Location [facility] Jr[facility] 12-24-2021 09:50-0400 Diastolic blood pressure 76 mm[Hg] Gustavo Graves Jr[facility] 12-24-2021 09:50-0400 Heart rate 68 /min Gust[facility] Jr[facility] 12-24-2021 09:50-0400 Systolic blood pressure 132 mm[Hg] [facility] Jr[facility] Encounters Encounter Date Encounter Type Care Provider Facility Start: 09-09-2023 End: 09-09-2023 ambulatory BUBBA GHOTRA Not Available Start: 08-31-2023 End: 08-31-2023 ambulatory BUBBA Chand HEMEYER Not Available Start: 08-21-2023 End: 08-21-2023 ambulatory Mahnaz Ira Other [facility] Other Start: 08-21-2023 Telephone encounter Mahnaz Ira [facility] Start: 07-22-2023 Telephone encounter Mahnaz Ira [facility] Start: 07-22-2023 End: 07-22-2023 ambulatory MATY MEDEIROS [facility] Other Start: 06-24-2023 End: 06-24-2023 ambulatory Mahnaz Ira Other [facility] Other Start: 06-24-2023 Telephone encounter Mahnaz Ira [facility] Start: 05-28-2023 End: 05-28-2023 ambulatory Mahnaz Ira Other [facility] Other Start: 05-28-2023 Telephone encounter Mahnaz Ira [facility] Start: 05-19-2023 End: 05-19-2023 ambulatory Mahnaz Ira Other [facility] Other Start: 05-19-2023 Office outpatient visit 15 minutes Mahnaz Ira [facility] Start: 04-21-2023 End: 04-21-2023 ambulatory Mahnaz Ira Other [facility] Other Start: 04-21-2023 Office outpatient visit 15 minutes Mahnaz Ira [facility] Start: 04-07-2023 End: 04-07-2023 ambulatory Mahnaz Ira Other [facility] Other Start: 04-07-2023 Telephone encounter Mahnaz Ira [facility] Start: 04-02-2023 End: 04-02-2023 ambulatory Mahnaz Ira Other [facility] Other Start: 04-02-2023 Telephone encounter Mahnaz Ira [facility] Start: 04-01-2023 End: 04-01-2023 ambulatory Mahnaz Ira Other [facility] Other Start: 04-01-2023 Telephone encounter Mahnaz Ira [facility] Start: 03-25-2023 End: 03-25-2023 ambulatory Mahnaz Ira Other [facility] Other Start: 03-25-2023 Office outpatient ne w [...] . Facility:[facility] Start: 03-08-2022 ambulatory JERI PURCELL Facility:[facility] Start: 02-26-2022 End: 02-27-[address] [...] procedure Gustavo Graves Jr. [facility] Start: 12-17-2021 End: 12-19-[address] DOCTOR BENNETT Facility: Start: 12-12-2021 End: 12-13-2021 ambulatory LAMAR TURNER Facility: Start: 12-05-2021 End: 12-06-2021 ambulatory Heri MURRELL Facility:[facility] Start: 12-05-2021 End: 12-05-2021 Patient encounter procedure Gustavo Graves Jr. [facility] Start: 12-05-2021 ambulatory Heri MURRELL Facility :[facility] Start: 12-03-2021 End: 12-04-2021 ambulatory JERI PURCELL Facility: Start: 10-14-2021 End: 10-15-2021 ambulatory Heri MURRELL Facility: [facility] Start: 09-19-2021 ambulatory Heri MURRELL Facility :[facility] Start: 12-11-2017 End: 12-12-2017 Patient encounter procedure Tunde WFish Das Facility:[facility] Procedures Date Procedure Procedure Detail Performing Clinician Start: 10-14-2021 Cystoscopy Gustavo flores Jr. Start: 09-13-2019 Cystoscopy Gustavo Deena flores Jr. Cholecystectomy Gustavo Graves Jr. Counseling Mahnaz corcoran Other Immunizations Immunization Date Immunization Notes Care Provider [facility] 10-22-2020 SARS-CoV-2 (COVID-19 ) mRNA BNT-162b2 vax Gustavo Graves Jr. [facility] 10-01-2020 SARS-CoV-2 (COVID-19 ) mRNA BNT-162b2 vax Gustavo Graves Jr. [facility] Payers Date Payer Category Payer Unknown [id number] 2.16.8 40.1.460943.3.579.2.727 1970 Unknown [id number] 2.16.8 40.1.596876.3.579.2.727 1969 Unknown [id number] 2.16.8 40.1.202885.3.579.2.727 1969 Unknown [id number] 2.16.8 40.1.306737.3.579.2.727 1969 Unknown [id number] 2.16.8 40.1.401988.3.579.2.727 1969 Unknown [id number] 2.16.84 0.1.458951.3.579.2.593 1969 Unknown [id number] 2.16.84 0.1.222186.3.579.2.593 1969 Unknown [id number] 2.16.84 0.1.738781.3.579.2.593 1969 Unknown [id number] 2.16.84 0.1.408389.3.579.2.593 1969 Unknown [id number] 2.16.84 0.1.160368.3.579.2.593 1969 Unknown [id number] 2.16.84 0.1.634138.3.579.2.593 1969 Unknown [id number] 2.16.84 0.1.458980.3.579.2.593 1969 Unknown [id number] 2.16.84 0.1.108930.3.579.2.593 1969 Unknown [id number] 2.16.84 0.1.842946.3.579.2.593 1969 Unknown [id number] 2.16.84 0.1.940982.3.579.2.593 1969 Unknown [id number] 2.16.84 0.1.268920.3.579.2.593 1969 Unknown [id number] 2.16.84 0.1.611392.3.579.2.593 1969 Unknown [id number] 2.16.84 0.1.587346.3.579.2.593 1969 Unknown [id number] 2.16.84 0.1.783407.3.579.2.593 1969 Unknown [id number] 2.16.84 0.1.974503.3.579.2.593 1969 Unknown [id number] 2.16.84 0.1.260373.3.579.2.593 1969 Unknown [id number] 2.16.84 0.1.982896.3.579.2.593 1969 Unknown [id number] 2.16.84 0.1.265157.3.579.2.593 1969 Unknown [id number] 2.16.84 0.1.237137.3.579.2.593 1969 Unknown [id number] 2.16.84 0.1.927200.3.579.2.593 1969 Unknown [id number] 2.16.84 0.1.795448.3.579.2.1286 1969 Unknown [id number] 2.16.84 0.1.707555.3.579.2.1259 1970 Unknown [id number] 2.16.84 0.1.543362.3.579.2.1259 1960 Medicaid [id number] 1960 Medicare [id number] 1960 Self-pay Social History Date Type Detail Facility Start: 10-14-2021 Tobacco smoking status Ex-smoker (fi nding) [facility] Sex Assigned At Male [facility] Functional Status Date Assessment Result Facility 12-24-2021 Functional Status N/A [facility] Clinical Notes 12-05-2021 to 08-21-2023 Note Date & Type Note Facility 08-21-2023 Evaluation note Encounter Date Diagnosis Assessment Notes Aug, Chronic pain (ICD-10 - G89.29) [facility] reviewed, consistent with Rx. MME 60 mg/day [facility] Other 01-10-2024 Evaluation note* Encounter Date Diagnosis Assessment Notes Treatment Notes Treatment Clinical Notes Jul, Chronic pain (ICD-10 - G89.29) [facility] reviewed, consistent with Rx. Also has benzo prescribed by P and pregabalin by neurology [facility] 12-13-2023 Evaluation note* Encounter Date Diagnosis Assessment Notes Treatment Notes Treatment Clinical Notes Jun, Chronic pain (ICD-10 - G89.29) [facility] Other 11-16-2023 Evaluation note* Encounter Date Diagnosis Assessment Notes Treatment Notes Treatment Clinical Notes May, Chronic pain (ICD-10 - G89.29) [facility] reviewed, consistent with Rx [facility] Other 11-07-2023 Evaluation note* Encounter Date Diagnosis [...] at bedtime instead of using PRN only [facility] Other 10-10-2023 Evaluation note* Encounter Date Diagnosis Assessment Notes Treatment Notes Treatment Clinical Notes Apr, Chronic pain (ICD-10 - G89.29) [facility] reviewed, consistent with Rx. Harish reports some relief with oxycodone 10 mg tabs, and is using med 3-4x/daily. Continue same without change. Apr, Constipation (ICD-10 - K59.00) Improved elimination with daily use of senna [facility] Other 09-26-2023 Evaluation note* Encounter Date Diagnosis [...] reported some lose stools after using routinely [facility] Other 09-20-2023 Evaluation note* Encounter Date Diagnosis Assessment Notes Treatment Notes Treatment Clinical Notes Mar, Chronic pain (ICD-10 - G89.29) [facility] reviewed, consistent with recent Rx. Increasing frequency of oxycodone to q6h PRN to improve pain control. Mar, Constipation (ICD-10 - K59.00) Harish is using Miralax daily but remains constipated, will add stimulant laxative [facility] Other 09-13-2023 Evaluation note* Encounter Date Diagnosis [...] of Constipation hand out provided to patient [facility] 04-06-2023 NoteCONSULTATION CONSULTATION DATE: 10/16/2022 TO: [...] 25 mg daily, Lyrica 200 mg t.i.d., Vina 7.5 mg b.i.d. He currently uses medical [...] THC if we are to continue with Vina. However, at this point, I do not [...] our patients to inform us about any pptc-ibb-izevffh medications or herbal remedies/nutritional supplements/alternative remedies. 2. [...] treatment options with their primary care provider.[id number] Note CONSULTATION CONSULTATION DATE: 06/26/2022 HISTORY OF [...] Lyrica 200 mg t.i.d. per his neurologist, Vina 7.5/325 b.i.d., Cymbalta, baclofen and Ocrevus. Patient's [...] medication changes today. He was increased to Vina 7.5/325 at his last visit, and the patient feels it is somewhat helpful. We will continue to medically manage him only. Patient will be seen in the clinic in three months' time unless otherwise indicated.[facility] [id number] NoteCONSULTATION CONSULTATION DATE: 03/13/2022 HISTORY OF PRESENT ILLNESS: This is 51-year-old gentleman, well known to the Pain Clinic, returning for a three month follow up. This gentleman has history of MS, chronic pain syndrome and diffuse neuropathic pain, which is chronically medically managed with a medication regimen. Current medications include Mobic 15 mg daily, Lyrica 200 mg t.i.d., Vina 5/325 t.i.d., baclofen, Trileptal and amitriptyline. Patient recently suffered a family loss and reportedly has lost about 12 pounds in weight. He does ambulate with a cane and is stable with that. He is requesting today that we change his Vina from t.i.d. to 7.5 b.i.d. as he [...] pain. PLAN: We will check from his Vina 5/325 t.i.d. to 7.5/325 b.i.d. We will maintain his other medications with no dose or frequency change. He will be given a U-Tox in the clinic today. I did discuss vitamin importance as well as supplementing his protein intake with Boost supplements. We will see the patient in three months' time, unless otherwise indicated. Patient is in agreement to this.[id number] Hospital Discharge instructions Patient Education 12/24/2021 10:47:00 [...] including vitamins, herbs, eye drops, creams, and ofce-dis-dnckmnt medicines. This also includes: ?Medicines to assist [...] 08/01/2005 Document Revised: 06/11/2018 Document Reviewed: 04/05/2018 [employer] Patient Education 2020 [employer]. Follow Up Care 12/05/2021 14:04:21 With:Star Manley MD, LION Borja Address: [facility] [address] [place] [address]- When:Within 6 Month(s) Comments:w/ PVR [facility] 05-26-2022 Note [id number]:127[facility] 12-05-2021 NoteUrolift ? Some men may [...] personnel to use a Coude (pronouncedcoo-day) tipped catheter.[facility]05-26-2022 Hospital Discharge instructions Patient Education 12/05/2021 [...] Urology [address], [place] [address]- Business (1) When:2 to 4 weeks Comments:PVR with [facility] Future Appointments Appointment Date:12/24/2021 09:30:00 AM Scheduled Provider:Gustavo Graves Jr., MD Location:[facility] Appointment Type:URO [facility] Future Appointments Appointment Date:07/01/2022 10:45:00 AM Scheduled Provider:Gustavo Graves Jr., MD Location:[facility] Appointment Type:URO Office Visit [facility] evaluation noteNo InformationNortWell[facility] [employer] Other History general Narrative - Reported* Type Description Date Medical History multiple sclerosis Medical History bipolar Medical History GERD Surgical History cholecystectomy [facility] [employer] Other Hospital course Narrative No data available for this section [facility] No data available for this section [facility] Summary Purpose Family History No Family [...] DATE CREATED AUTHOR AUTHOR'S ORGANIZ ATION 01/25/2021 [facility] DATE CREATED AUTHOR AUTHOR'S ORGANIZ ATION 09/16/2022 [facility] DATE CREATED AUTHOR AUTHOR'S ORGANIZ ATION 11/18/2022 [facility] DATE CREATED AUTHOR AUTHOR'S ORGANIZ ATION 07/26/2023 [facility] DATE CREATED AUTHOR AUTHOR'S ORGANIZ ATION 09/12/[address] [facility] Care Team (unrecognized sect ion and content) Personnel Name: BUBBA GHOTRA MD Address: [address] [place] [id number] REASON FOR VISIT (unrecogniz ed section and [...] BE BASED ON THE PRIMARY CLINICAL RECORDS. [employer] provides no warranty or guarantee of the accuracy or completeness of information in this document.
[2023-10-22] MEDS: IPRATROPIUM/ALBUTEROL SULFATE 3 ML AMPUL.NEB IH ×2 (19:21→23:11)
[2023-10-22] MEDS: MAGNESIUM SULFATE IN WATER 2 GM/50 ML PREMIX IV (19:58)
[2023-10-22] MEDS: LACTATED RINGER'S SOLUTION 1,000 ML 100 ML IV (19:58)
[2023-10-22] MEDS: METHYLPREDNISOLONE SOD SUCC PF 40 MG/ML VIAL IVP (19:59)
[2023-10-22] MEDS: GUAIFENESIN 600 MG TAB.ER.12H PO (21:07)
[2023-10-22] MEDS: BUSPIRONE HCL 15 MG TABLET PO (21:07)
[2023-10-22] MEDS: OXcarbazepine 300 MG TABLET PO (21:07)
[2023-10-22] MEDS: METOPROLOL TARTRATE 25 MG TABLET 75 MG PO (21:07)
[2023-10-22] MEDS: QUETIAPINE FUMARATE 25 MG TABLET 50 MG PO (21:08)
[2023-10-22] MEDS: OMEPRAZOLE 40 MG CAPSULE.DR PO (21:08)
[2023-10-22] MEDS: BACLOFEN 10 MG TABLET 20 MG PO (21:08)
[2023-10-22] MEDS: PRIMIDONE 50 MG TABLET 100 MG PO (21:08)
[2023-10-22] MEDS: CLONAZEPAM 0.5 MG TABLET 1 MG PO (21:08)
[2023-10-22] MEDS: OXYCODONE HCL 5 MG TABLET 10 MG PO (21:11)
[2023-10-22] MEDS: PREGABALIN 100 MG CAPSULE 200 MG PO (21:13)
[2023-10-22] MEDS: PIPERACILLIN SODIUM/TAZOBACTAM 4.5 GM in 0.9 % SODIUM CHLORIDE 100 ML IV (22:09)
[2023-10-22] MEDS: BUDESONIDE 0.5 MG/2 ML AMPULE NEB IH (23:11)
[2023-10-23] VITALS (14 sets, daily range): BP systolic 109–157; BP diastolic 67–86; PULSE 74–108; TEMP 36.2–36.7; O2SAT 91–98
[2023-10-23] MEDS: ALPRAZOLAM 0.25 MG TABLET PO (00:06)
[2023-10-23] MEDS: METHYLPREDNISOLONE SOD SUCC PF 40 MG/ML VIAL IVP ×4 (02:50→19:23)
[2023-10-23] MEDS: IPRATROPIUM/ALBUTEROL SULFATE 3 ML AMPUL.NEB IH ×6 (03:53→23:12)
--- NOTE | 2023-10-23 04:00 | XR_ITS ---
The [address] [address] Patient Name: SERGIO MCKENNA MRN: [id number] date: 1970 Sex: M Assigned Patient Location: Current Patient Location: Accession/Order Number: [id number] Exam Date: 10/23/2023 06:00 Report Date: 10/23/2023 06:53 At the request of: IMAN GREEN Procedure: XR chest 1V PROCEDURE: XR chest 1V DATE: 10/23/2023 6:00 AM EDT COMPARISONS: 10/22/2023 CLINICAL INDICATION: 53 years Male SOB FINDINGS: The cardiomediastinal silhouette and pulmonary vasculature are within normal limits. Heterogeneous airspace disease is noted of the left infrahilar region likely representing pneumonia similar to exam from the previous day. The lungs are otherwise clear. There is no evidence of pleural effusion or pneumothorax. XR/XR chest 1V IMPRESSION: Findings most consistent with left infrahilar pneumonia similar to exam from previous day. Electronically authenticated by: SNEHA DIGGS Date: 10/23/2023 06:53
[2023-10-23 04:59] LABS: Basophils Percent Auto 0.1 % (0.2-2.0); Hematocrit 31.3 % (42.0-54.0); Hemoglobin 10.2 g/dL (14.0-18.0); Immature Granulocytes Abs Auto 0.08 10^3/uL (0.00-0.03); Lymphocytes Absolute Auto 1.1 10^3/uL (1.2-3.8); Lymphocytes Percent Auto 14.3 % (20.5-60.0); Mean Corpuscular HGB Conc 32.6 g/dL (29.9-35.2); Mean Corpuscular Hemoglobin 29.7 pg (25.9-34.0); Mean Platelet Volume 9.4 fL (9.5-13.5); Monocytes Absolute Auto 0.3 10^3/uL (0.3-0.8); Monocytes Percent Auto 4.3 % (1.7-12.0); Neutrophils Absolute Auto 6.3 10^3/uL (1.4-6.5); Neutrophils Percent Auto 80.3 % (43.0-75.0); Platelet Count 559 10^3/uL (150-450); Red Blood Count 3.44 10^6/uL (4.70-6.10); Red Cell Distribution Width 13.6 % (11.0-15.0); White Blood Count 7.8 10^3/uL (4.0-11.0)
[2023-10-23 05:12] LABS: Magnesium 2.3 mg/dL (1.8-2.4)
[2023-10-23 05:19] LABS: Alanine Aminotransferase 88 U/L (16-63); Albumin Globulin Ratio 0.8; Albumin Level 2.5 g/dL (3.4-5.0); Alkaline Phosphatase 223 U/L (46-116); Anion Gap 14.6; Aspartate Amino Transferase 29 U/L (15-37); BUN Creatinine Ratio 7.7; Bilirubin Total 0.3 mg/dL (0.2-1.0); Calcium 8.7 mg/dL (8.5-10.1); Carbon Dioxide 25.2 mmol/L (21.0-32.0); Chloride 101 mmol/L (98-107); Estimated GFR (African America >60 (>=60); Estimated GFR (Non-African Ame >60 (>=60); Globulin 3.3 g/dL; Glucose 124 mg/dL (74-106); Potassium 3.8 mmol/L (3.5-5.1); Sodium 137 mmol/L (136-145); Total Protein 5.8 g/dL (6.4-8.2)
[2023-10-23] MEDS: LACTATED RINGER'S SOLUTION 1,000 ML 100 ML IV ×2 (05:33→15:42)
[2023-10-23] MEDS: PIPERACILLIN SODIUM/TAZOBACTAM 3.375 GM in 0.9 % SODIUM CHLORIDE 50 ML IV ×3 (05:34→21:54)
[2023-10-23] MEDS: BACLOFEN 10 MG TABLET 20 MG PO ×3 (05:34→22:17)
[2023-10-23] MEDS: PREGABALIN 100 MG CAPSULE 200 MG PO ×3 (05:34→22:17)
[2023-10-23] MEDS: BUSPIRONE HCL 15 MG TABLET PO ×3 (05:34→21:52)
[2023-10-23] MEDS: METOPROLOL TARTRATE 25 MG TABLET 75 MG PO ×2 (08:20→21:49)
[2023-10-23] MEDS: CLONAZEPAM 0.5 MG TABLET 1 MG PO ×2 (08:20→21:52)
[2023-10-23] MEDS: DULOXETINE HCL 60 MG CAPSULE.DR 120 MG PO (08:20)
[2023-10-23] MEDS: OMEPRAZOLE 40 MG CAPSULE.DR PO ×2 (08:20→22:17)
[2023-10-23] MEDS: GUAIFENESIN 600 MG TAB.ER.12H PO ×2 (08:20→21:49)
[2023-10-23] MEDS: HYDRALAZINE HCL 10 MG TABLET PO ×2 (08:20→21:50)
[2023-10-23] MEDS: LOSARTAN POTASSIUM 50 MG TABLET 100 MG PO (08:20)
[2023-10-23] MEDS: OXcarbazepine 300 MG TABLET PO ×2 (08:20→21:50)
[2023-10-23] MEDS: OXYCODONE HCL 5 MG TABLET 10 MG PO ×3 (08:21→20:07)
--- NOTE | 2023-10-23 10:19 | SWNOTE1 ---
DANITA met with pt to discuss dc needs. Pt lives at home with his step son, daughter in law, and grandchild. Pt immediately voices he needs home health. DANITA asked pt what his understanding of home health was. Pt stated he needs someone to cook for him and maybe clean. DANITA let him know that home health is therapy and nursing coming in to the home for a short time to assist. Pt voiced he walked up and down the hallways, pt does not need home therapy. At this point pt does not want home health, just needs assistance for cooking/cleaning. DANITA let him know this would be private caregivers/private pay. He voices understanding and would like the private caregiver list. DANITA did ask pt if he does have medicaid now, and he stated yes medicare and medicaid. DANITA asked about home oxygen and he does still have home oxygen, 2 liters through [employer]. At this time pt voices no other needs for discharge and would like to get up and walk halls. DANITA notified nursing pt was going to walk, nursing gave the ok for pt to talk in hallway. DANITA provided pt with a private caregiver list. Important Message from Medicare reviewed and discussed with patient. Pt. verbalized understanding and signed the form. Original given to patient and copy placed in patient?s chart.
--- NOTE | 2023-10-23 11:10 | PM.PN ---
Progress Note: Subjective Subjective Interval history: Patient improved overnight. Less SOB and mild cough. Afebrile. Ambulating in lee and continues to have mild SOB with exertion. No sputum. WBC normal. Normal appetite and no emesis or diarrhea. No chest pain or palpitations. Exam Constitutional Vital Signs, click to edit/add: Last Vital Signs Temp 97.2 F L 10/23/23 08:26 Pulse 108 H 10/23/23 08:26 Resp 18 10/23/23 08:26 BP 122/70 10/23/23 08:26 Pulse Ox 94 L 10/23/23 10:28 O2 Del Method Room Air 10/23/23 10:28 O2 Flow Rate 2 10/23/23 08:26 Documenting provider has reviewed patient's vital signs: yes Common normals: no apparent distress, oriented x3 and alert HENMT Common normals: normocephalic Eye Common normals: PERRL and EOMs intact bilaterally Respiratory Auscultation: clear to auscultation bilaterally Cardio Common normals: regular rate, regular rhythm, no gallops, no murmurs and no rub GI Common normals: Normal to inspection, nondistended, normoactive bowel sounds present and non-tender Extremity Common normals: no pedal edema Progress Note: Objective Labs Labs: Short CBC 10/22/23 10/23/23 Range/Units 13:51 04:09 WBC 14.8 H 7.8 (4.0-11.0) 10^3/uL Hgb 11.4 L 10.2 L (14.0-18.0) g/dL Hct 35.2 L 31.3 L (42.0-54.0) % Plt Count 541 H 559 H (150-450) 10^3/uL BMP 10/22/23 10/23/23 13:51 04:09 Sodium 137 137 Potassium 3.5 3.8 Chloride 100 101 Carbon Dioxide 27.5 25.2 BUN 6.0 L 6.0 L Creatinine 0.74 0.78 Glucose 109 H 124 H Calcium 8.8 8.7 Liver Function 10/22/23 10/23/23 Range/Units 13:51 04:09 Total Bilirubin 0.4 0.3 (0.2-1.0) mg/dL AST 84 H 29 (15-37) U/L ALT 140 H 88 H (16-63) U/L Alkaline Phosphatase 276 H 223 H (46-116) U/L Albumin 2.5 L 2.5 L (3.4-5.0) g/dL Progress Note: A&P Assessment and Plan (1) Pneumonia: (2) COPD exacerbation: (3) Multiple sclerosis: (4) Acute hypoxic respiratory failure: (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 Wean oxygen as tolerated. Increase ambulation. Monitor labs and vitals. If continue to improve likely ready for discharge in next 1-2 days.
--- NOTE | 2023-10-23 11:13 | CM.NOTE ---
Rounds made with Dr. Wolfe. Testing reviewed with Harish by Dr. Wolfe. Dr. Wolfe would like one additional day IV antibiotics.
[2023-10-23] MEDS: SODIUM CHLORIDE 3% INHALATION 15 ML NEB 3 ML IH ×4 (11:24→23:12)
[2023-10-23] MEDS: BUDESONIDE 0.5 MG/2 ML AMPULE NEB IH ×2 (11:24→23:12)
[2023-10-23] MEDS: LEVOFLOXACIN IN DEXTROSE 5 % 750 MG/150 ML IV.SOLN 100 MG IV (15:43)
[2023-10-23] MEDS: ACETAMINOPHEN 500 MG TABLET 1000 MG PO (17:11)
[2023-10-23] MEDS: ENOXAPARIN SODIUM 40 MG/0.4 ML SYRINGE SUBQ (19:25)
[2023-10-23] MEDS: PRIMIDONE 50 MG TABLET 100 MG PO (21:50)
[2023-10-23] MEDS: QUETIAPINE FUMARATE 25 MG TABLET 50 MG PO (21:50)
[2023-10-24 00:17] VITALS: BP 112/71; PULSE 76; TEMP 37.1; O2SAT 97
[2023-10-24] MEDS: METHYLPREDNISOLONE SOD SUCC PF 40 MG/ML VIAL IVP ×2 (01:11→08:52)
[2023-10-24] MEDS: LACTATED RINGER'S SOLUTION 1,000 ML 100 ML IV (01:11)
[2023-10-24] MEDS: OXYCODONE HCL 5 MG TABLET 10 MG PO ×2 (01:50→08:47)
[2023-10-24 03:52] VITALS: PULSE 74; O2SAT 98
[2023-10-24] MEDS: SODIUM CHLORIDE 3% INHALATION 15 ML NEB 3 ML IH ×2 (03:52→07:29)
[2023-10-24] MEDS: IPRATROPIUM/ALBUTEROL SULFATE 3 ML AMPUL.NEB IH ×2 (03:52→07:29)
[2023-10-24 05:24] VITALS: BP 137/82; PULSE 74; TEMP 36.3; O2SAT 98
[2023-10-24 05:47] LABS: Basophils Percent Auto 0.1 % (0.2-2.0); Hematocrit 34.2 % (42.0-54.0); Hemoglobin 10.8 g/dL (14.0-18.0); Immature Granulocytes Pct Auto 0.9 % (0.0-0.5); Lymphocytes Absolute Auto 0.9 10^3/uL (1.2-3.8); Lymphocytes Percent Auto 8.7 % (20.5-60.0); Mean Corpuscular HGB Conc 31.6 g/dL (29.9-35.2); Mean Corpuscular Hemoglobin 29.3 pg (25.9-34.0); Mean Corpuscular Volume 92.9 fL (80.0-94.0); Mean Platelet Volume 9.4 fL (9.5-13.5); Monocytes Absolute Auto 0.3 10^3/uL (0.3-0.8); Monocytes Percent Auto 3.1 % (1.7-12.0); Neutrophils Absolute Auto 9.4 10^3/uL (1.4-6.5); Neutrophils Percent Auto 87.2 % (43.0-75.0); Platelet Count 708 10^3/uL (150-450); Red Blood Count 3.68 10^6/uL (4.70-6.10); Red Cell Distribution Width 13.8 % (11.0-15.0); White Blood Count 10.8 10^3/uL (4.0-11.0)
[2023-10-24 06:02] LABS: Alanine Aminotransferase 64 U/L (16-63); Albumin Globulin Ratio 0.7; Albumin Level 2.6 g/dL (3.4-5.0); Alkaline Phosphatase 198 U/L (46-116); Anion Gap 13.5; Aspartate Amino Transferase 15 U/L (15-37); BUN Creatinine Ratio 10.6; Bilirubin Total 0.2 mg/dL (0.2-1.0); Calcium 8.9 mg/dL (8.5-10.1); Carbon Dioxide 26.1 mmol/L (21.0-32.0); Chloride 103 mmol/L (98-107); Estimated GFR (African America >60 (>=60); Estimated GFR (Non-African Ame >60 (>=60); Globulin 3.5 g/dL; Glucose 116 mg/dL (74-106); Potassium 3.6 mmol/L (3.5-5.1); Sodium 139 mmol/L (136-145); Total Protein 6.1 g/dL (6.4-8.2)
[2023-10-24 06:08] LABS: HBsAg Screen Negative (Negative); HCV Ab Non Reactive (Non Reactive); Hep A Ab, IgM Negative (Negative); Hep B Core Ab, IgM Negative (Negative)
[2023-10-24] MEDS: PIPERACILLIN SODIUM/TAZOBACTAM 3.375 GM in 0.9 % SODIUM CHLORIDE 50 ML IV (06:10)
[2023-10-24] MEDS: PREGABALIN 100 MG CAPSULE 200 MG PO (06:10)
[2023-10-24] MEDS: OMEPRAZOLE 40 MG CAPSULE.DR PO (06:10)
[2023-10-24] MEDS: BACLOFEN 10 MG TABLET 20 MG PO (06:10)
[2023-10-24] MEDS: BUSPIRONE HCL 15 MG TABLET PO (06:10)
[2023-10-24 07:30] VITALS: PULSE 84; O2SAT 93
[2023-10-24 07:56] VITALS: BP 139/73; PULSE 94; TEMP 36.7; O2SAT 92
[2023-10-24] MEDS: SENNOSIDES 8.6 MG TABLET 17.1999999999999993 MG PO (08:47)
[2023-10-24] MEDS: METOPROLOL TARTRATE 25 MG TABLET 75 MG PO (08:47)
[2023-10-24] MEDS: HYDRALAZINE HCL 10 MG TABLET PO (08:48)
[2023-10-24] MEDS: DULOXETINE HCL 60 MG CAPSULE.DR 120 MG PO (08:48)
[2023-10-24] MEDS: CLONAZEPAM 0.5 MG TABLET 1 MG PO (08:48)
[2023-10-24] MEDS: OXcarbazepine 300 MG TABLET PO (08:48)
[2023-10-24] MEDS: GUAIFENESIN 600 MG TAB.ER.12H PO (08:48)
[2023-10-24] MEDS: LOSARTAN POTASSIUM 50 MG TABLET 100 MG PO (08:48)
--- NOTE | 2023-10-24 10:05 | P.DS_ITS ---
DS: Providers Provider Date of admission: 10/22/23 16:16 Primary care physician: RANDALL GHOTRA Consults: 10/22/23 17:17 Occupational Therapy Eval and Treat Routine Reason for consultation: weakness Has provider been notified: No Physical Therapy Eval and Treat Routine Reason for consultation: weakness Has provider been notified: No Attending physician on discharge: Shaikh Jacob Discharging clinician: Shaikh Jacob Anticipated date of discharge: 10/24/23 DS: Diagnosis Discharge Diagnosis (1) Pneumonia: Assessment and plan: Left lower lobe Pneumonia. Clinically improved. Has mild cough and AMADOR but significantly better. He can be discharged home and transitioned to oral antibiotics. Qualifiers: Laterality: left Lung location: lower lobe of lung Pneumonia type: due to unspecified organism Qualified Code(s): J18.9 - Pneumonia, unspecified organism (2) Acute infective exacerbation of chronic obstructive airway disease: Assessment and plan: Likely exacerbated due to Pneumonia Stable for discharge on PO prednisone. C/w albuterol as needed. (3) Chronic respiratory failure with hypoxia: Assessment and plan: Uses O2 as needed. On RA today and has no sig resp symptoms except for mild AMADOR. Stable for discharge on Prednisone and oral Abx. (4) Multiple sclerosis: Assessment and plan: Relapsing/remitting MS. On Ocrevus infusion. Follows [facility]. C/w outpatient follow up and treatment as before. 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 At high risk of poor outcome, resistant organisms and hence required inpatient care and treatment. (6) Transaminitis: Assessment and plan: Likely due to PNA. Improved. (7) Hypomagnesemia: Assessment and plan: Resolved. (8) Hypertension: Assessment and plan: Controlled. C/w Losartan/Hydralazine. Qualifiers: Hypertension type: primary hypertension Qualified Code(s): I10 - Essential (primary) hypertension (9) Depression with anxiety: Assessment and plan: Well controlled. Stable mood. C/w home medications. (10) Severe malnutrition: Assessment and plan: Severe malnutrition likely due to repeated hospital admissions, MS. He has BMI of 17, weight loss of about 6-7 % in 2-3 months. Patient encourage to discuss with PCP and I believe will benefit from nutrition consult. DS: Summary Hospital Course Hospital Course: 53 y o male presented with malaise, fatigue, worsening SOB and hypoxia was admitted for left lower lobe pneumonia. It is quite possible that he developed post influenza, bacterial pneumonia as he tested positive for Influenza on 10/15/23 Patient was treated with IV Levaquin and Zosyn for Pneumonia and also with IV steroids, inhaled bronchodilators for concurrent COPD exacerbation. His symptoms and clinical status improved progressively over the course of admission. Blood and sputum cultures are negative. He was felt medically stable for discharge on oral doxycycline, and prednisone taper for Pneumonia and COPD exacerbation. Patient Patient also was informed that he will need outpatient CT chest to follow up on abnormal CT chest performed in 09/05 Patient instructed to follow up with his PCP and educated on worrisome signs and symptoms for which he should seek urgent care. Status at Discharge Functional status at discharge: independent ambulation Overall status at discharge: patient is back to baseline Time Spent with Patient Time attestation: Total time spent providing and/or coordinating discharge services: Time spent: greater than 30 minutes Exam Constitutional Vital Signs, click to edit/add: Last Vital Signs Temp 98.1 F 10/24/23 07:56 Pulse 94 H 10/24/23 07:56 Resp 16 10/24/23 07:56 BP 139/73 10/24/23 07:56 Pulse Ox 92 L 10/24/23 07:56 O2 Del Method Room Air 10/24/23 07:56 O2 Flow Rate 2 10/24/23 05:24 DS: Data Data Completed and Pending Labs on day of discharge: Labs from last 24 hours 10/24/23 10/22/23 04:20 15:52 WBC 10.8 RBC 3.68 L Hgb 10.8 L Hct 34.2 L MCV 92.9 MCH 29.3 MCHC 31.6 RDW 13.8 Plt Count 708 H MPV 9.4 L Neut % (Auto) 87.2 H Lymph % (Auto) 8.7 L [place] % (Auto) 3.1 Eos % (Auto) 0.0 L Baso % (Auto) 0.1 L Neut # (Auto) 9.4 H Lymph # (Auto) 0.9 L [place] # (Auto) 0.3 Eos # (Auto) 0.0 Baso # (Auto) 0.0 Abs Immat Gran (auto) 0.10 H Imm/Tot Granulo (auto) 0.9 H Sodium 139 Potassium 3.6 Chloride 103 Carbon Dioxide 26.1 Anion Gap 13.5 BUN 9.0 Creatinine 0.85 Est GFR ( Amer) >60 Est GFR (Non-Af Amer) >60 BUN/Creatinine Ratio 10.6 Glucose 116 H Calcium 8.9 Total Bilirubin 0.2 AST 15 ALT 64 H Alkaline Phosphatase 198 H Total Protein 6.1 L Albumin 2.6 L Globulin 3.5 Albumin/Globulin Ratio 0.7 Hepatitis A IgM Ab Negative Hep Bs Antigen Negative Hep B Core IgM Ab Negative Hepatitis C Antibody Non reactive Hepatitis C Interp Comment Discharge Plan Discharge Disposition: Home, Self-Care Condition: Good Discharge Medications: New prednisone 20 mg tablet 20 mg PO BID 5 Days Qty: 10 0RF doxycycline monohydrate 100 mg tablet 100 mg PO BID 7 Days Qty: 14 0RF Continued hydralazine 10 mg tablet 10 mg PO Q12H primidone 50 mg tablet 50 mg PO Rx Instructions: 1 tablet by mouth in the morning and 2 tablets by mouth at bedtime albuterol sulfate 2.5 mg /3 mL (0.083 %) solution for nebulization 2.5 mg inhalation Q6H PRN (Reason: shortness of breath or wheezing) clonazepam 1 mg tablet 1 mg PO Q12H oxcarbazepine 300 mg tablet 300 mg PO BID metoprolol tartrate 50 mg tablet 75 mg PO Q12H losartan 100 mg tablet 100 mg PO DAILY buspirone 15 mg tablet 15 mg PO TID duloxetine 60 mg capsule,delayed release(DR/EC) 120 mg PO DAILY pregabalin 200 mg capsule 200 mg PO Q8H budesonide-formoterol [Symbicort] 160-4.5 mcg/actuation HFA aerosol inhaler 2 puff INHALATION Q12H oxycodone 10 mg tablet 10 mg PO Q6H PRN (Reason: pain) baclofen 20 mg tablet 20 mg PO Q8H pantoprazole 40 mg tablet,delayed release (DR/EC) 40 mg PO BID quetiapine 50 mg tablet 50 mg PO .QHS Rx Instructions: MAY REPEAT IN 4 HOURS IF STILL AWAKE sennosides [senna] 8.6 mg tablet 17.2 mg PO BID PRN (Reason: constipation) Activity: increase activity as tolerated Diet: advance to your usual diet Print Language: Persian Patient Instructions: Doxycycline (By mouth), Prednisolone (By mouth), Pneumonia (DC) Forms: Portal Instructions Follow Up Appointments: Follow up with PCP in 1-2 week Discharge Date/Time: 10/24/23 10:45
--- NOTE | 2023-10-26 13:31 | CM.DCFOLLOWU ---
1st attempt no answer 10/25.
--- NOTE | 2023-10-28 10:55 | CM.DCFOLLOWU ---
10/27- 1st attempt. No answer
--- NOTE | 2023-10-30 11:21 | CM.DCFOLLOWU ---
Person spoke with: Harish How are you feeling? Better, almost done with medication How is your pain? No pain Did you understand your discharge instructions? Yes Do you have any questions about your discharge instructions? No Were you given any prescriptions at discharge? Yes Were you able to get your prescriptions filled? Yes Do you understand how to take your medications as ordered? Yes Do you have any questions about your follow up appointment and do you plan to keep your follow up appointment? No it is next week with Dr. Cruz and yes I plan on going to appt. Is there anything else that you would like to discuss? No Questions/Comments/Concerns/Other:
== END 2023-10-24 10:45 | disposition home or self-care (01) | DRG 193 ==
LOC: ER 15:04 → MS 16:21
PROVIDERS: Physician Assistant; Admitting Provider Nurse Practitioner; Emergency Provider Emergency Medicine Emergency Medical Services; PCP Family Medicine; Visit Provider Internal Medicine
DX: J18.9 Pneumonia, unspecified organism (principal); E43 Unspecified severe protein-calorie malnutrition; J96.21 Acute and chronic respiratory failure with hypoxia; J44.0 Chronic obstructive pulmonary disease with (acute) lower respiratory infection; J44.1 Chronic obstructive pulmonary disease with (acute) exacerbation; D84.821 Immunodeficiency due to drugs; Z68.1 Body mass index [BMI] 19.9 or less, adult; I10 Essential (primary) hypertension; G35 Multiple sclerosis; E83.42 Hypomagnesemia; R74.01 Elevation of levels of liver transaminase levels; F41.8 Other specified anxiety disorders; G62.9 Polyneuropathy, unspecified; Z99.81 Dependence on supplemental oxygen; Z87.891 Personal history of nicotine dependence; Z79.899 Other long term (current) drug therapy; F12.90 Cannabis use, unspecified, uncomplicated; T50.995A Adverse effect of other drugs, medicaments and biological substances, initial encounter
CPT/HCPCS: 36415; 71045; 80053; 80074; 82800; 83605; 83735; 83880; 84484; 85025; 85610; 87040; 87070; 93005; 94640; 94667; 94668; 94761; 96365; 96366; 96367; 96368; 96372; 96375; 96376; 97161; 99285; J2919

== ENCOUNTER 2023-11-05 15:51 | Outpatient (OUT) | payer MEDICARE, MEDICAID, SELFPAY ==
[2023-11-05 16:43] LABS: Anion Gap 9.4; Calcium 8.7 mg/dL (8.5-10.1); Carbon Dioxide 31.3 mmol/L (21.0-32.0); Chloride 106 mmol/L (98-107); Chol HDL Ratio 2.5; Cholesterol 216 mg/dL (<=200); Estimated GFR (African America >60 (>=60); Estimated GFR (Non-African Ame >60 (>=60); Glucose 94 mg/dL (74-106); HDL Cholesterol 85 mg/dL (40-60); Potassium 4.7 mmol/L (3.5-5.1); Sodium 142 mmol/L (136-145); Triglycerides 33 mg/dL (<=150); VLDL CHOLESTEROL 6.6 mg/dL
== END 2023-11-05 15:52 | disposition home or self-care (01) ==
LOC: LAB 15:54
PROVIDERS: PCP Family Medicine; Visit Provider Family Medicine
DX: G35 Multiple sclerosis (principal); I10 Essential (primary) hypertension; R60.0 Localized edema; E78.2 Mixed hyperlipidemia
CPT/HCPCS: 36415; 80048; 80061; 83880

== ENCOUNTER 2024-04-05 16:22 | Outpatient (OUT) | payer MEDICARE, MEDICAID, SELFPAY ==
--- OUTSIDE RECORDS SUMMARY | 2024-04-05 16:27 | XMS_ITS | CCD ---
Author Organization [facility] Care Team Providers Care Psychiatric Tech Name Role Phone Tunde Das Admitting Unavailable Tunde Das Attending Unavailable Bubba Ghotra Primary Care Unavailable BUBBA GHOTRA Primary Care Physician [phone] Heri MURRELL Referring Unavailable Heri MURRELL Admitting [...] Unavailayo DUFFY, DR KELSEA Hamilton Admitting Unavailayo e PIEDAD ., GILSON MCGRAW Consulting Unavailayo LARIOS ., ESA Attending Unavailable RIC ., ESA Admitting Unavailable RIC ., ESA Consulting Unavailable HEMEJUDITH ., DR PEREIRA Primary Care Unavailable KAIA SHEIKH Consulting Unavailable MISC, DR MASON Admitting Unavailable REQUEST, DR THOMASON LISTED Primary Care UnavailABIMAEL Willis Consulting Unavailable DONALD, DR MASON Attending Unavailable JULIO ., DR VILLAGOMEZ Attending Unavailable JULIO ., DR VILLAGOMEZ Admitting Unavailable [place], DR CRUZITO Schuster Consulting Unavailable HEMEYER ., [...] ., NARENDRANATH Admitting Maureen vailable LAKSHMIPATHY ., ALEAHENDANSONATH Consulting Maureen vailable HEMEYER ., DR PEREIRA Primary Care Unavailable BINHJERI Attending Unavailable BINH, JERI Admitting Unavailable HEMEYER [...] ROMERO ., DR LISA Schwartz Admitting Unavailable BRANDIN ., DR PEREIRA Primary Care Unavailable IraMahnaz corcoran Unavailable BUBBA GHOTRA Attending Unavailable BUBBA GHOTRA Attending Unavailable BUBBA GHOTRA Attending Unavailable BUBBA GHOTRA Attending Unavailable MATY MEDEIROS Attending Unavailable MATY MEDEIROS Attending Unavailable Allergies Allergy Classification Reported Allergen(s) Allergy Type Date of Onset Reaction(s) Facility (15 sources) PARoxetine; Translations: [paroxetine] Drug Allergy 4 Mild (qualifier value) [facility] (2 sources) PARoxetine Drug Allergy 3 [facility] (12 sources) venlafaxine Drug Allergy 3 Unknown [facility] (2 sources) venlafaxine Drug Allergy [address] [facility] Medications Current Medications Medication Drug Class(es) Dates Sig (Normalized) Sig (Original) Albuterol (14 sources) beta2-Adrenergic Agonist Start: 03-12-2017 End: 02-15-2020 take 2.5 mg by inhalation every four to six hours Albuterol Sulfate Discontinued 2.5 MG INHALATION EVERY 4-6 HOURS March 12, 2017 12:00am February 15, 2020 9:56am Start: 03-12-2017 take 1 puff(s) by in halation every four hours Albuterol Sulfate Active 1 - 2 PUFF INHALATION Every 4 hours March 12, 2017 12:00am take 1 puff(s) by in halation every four hours as needed Albuterol Sulfate HFA 108 (90 Base) MCG/ACT 1 puff as needed Inhalation every 4 hrs Active take 1 puff(s) by in halation every four hours as needed Albuterol Sulfate HFA 108 (90 Base) MCG/ACT 1 puff as needed Inhalation every 4 hrs Active amitriptyline hydrochloride 50 mg oral tablet (4 sources) Tricyclic Antidepressant Start: 08-06-2021 take 1 tablet by mouth once daily at bedtime amitriptyline 50 mg Tab 50 mg = 1 tab(s), Oral, Once a day (at bedtime), # 30 tab(s), Refills(s) 0 Start Date: 08/06/21 Status: Ordered Start: 03-12-2017 End: 02-15-2020 take 10 mg by mouth once daily at bedtime Amitriptyline Discontinued 10 MG PO Daily at bedtime March 12, 2017 12:00am February 15, 2020 9:57am baclofen 10 mg oral tablet (14 sources) gamma-Aminobutyric Acid-ergic Agonist Start: 08-06-2021 take 5 mg by mouth three times daily baclofen 10 mg Tab 5 mg = 0.5 tab(s), Oral, TID, # 30 tab(s), Refills(s) 0 Start Date: 08/06/21 Status: Ordered Start: 03-12-2017 take 10 mg by mouth three times daily Baclofen Active 10 MG PO Three times daily March 12, 2017 12:00am Baclofen 10 MG a s directed Orally qid Active busPIRone hydrochloride 7.5 mg oral tablet (12 sources) Start: 09-10-2023 take 1 tablet by mouth twice daily Buspirone Active 1 TAB PO Twice daily September 10, 2023 1:00am FreeTextSi tablet Orally Twice a day; Note: Source Status: Taking; Provider: Ira Joya ( ) take 1 tablet by rachel th every twelve hours busPIRone HCl 7.5 MG 1 tablet Orally Twi ce a day Active ciprofloxacin 500 mg oral tablet (1 source) Quinolone Antimicrobial Start: 12-02-2021 take 1 tablet by mouth twice daily Cipro 500 mg Tab 500 mg = 1 tab(s), Oral, BID, Start medication 3 days prior to procedure., # 14 tab(s), Refills(s) 0, Pharmacy: [facility]/pharmacy #[id number], 178, cm, 10/14/21 12:57:00 EDT, Height/Length Dosing, 65.8, kg, 10/14/21 12:57:00 EDT, Weight Dosing Start Date: 12/02/21 Status: Ordered clonazePAM 0.5 mg oral tablet (12 sources) Benzodiazepine Start: 09-10-2023 take 1 tablet by mouth once daily Clonazepam Active 0.5 MG PO Daily September 10, 2023 1:00am FreeTextSi tablet Orally Once a day; Note: Source Status: Taking; Provider: Ira Joya ( ) take 1 tablet by rachel every twenty-four hours KlonoPIN 0.5 MG 1 tablet Orally Once a day Active DHEA (2 sources) Start: 08-31-2019 DHEA Oral, Eri ly, Refills(s) 0 Start Date: 08/31/19 Status: Ordered diazePAM 10 mg oral tablet (3 sources) Benzodiazepine Start: 10-14-2021 Valium 10 mg T ab 10 mg = 1 tab(s), Oral, Once, Take 1/2 hour prior to procedure, # 1 tab(s), Refills(s) 0, Pharmacy: [facility]/pharmacy #[id number], 178, cm, 10/14/21 12:57:00 EDT, Height/Length Dosing, 65.8, kg, 10/14/21 12:57:00 EDT, Weight Dosing Start Date: 10/14/21 Status: Ordered Start: 03-12-2017 End: 09-10-2023 take 0.5 mg by mouth three times daily Diazepam (Valium) 2 mg Tablet Discontinued 0.5 MG PO Three times daily March 12, 2017 12:00am September 10, 2023 4:04pm diclofenac sodium 50 mg delayed release oral tablet (2 sources) Nonsteroidal Anti-inflammatory Drug Start: 08-06-2021 take 1 mg by mouth three times daily diclofenac sodium 50 mg Oral EC Tab mg tab(s), Oral, TID, Refills(s) 0 Start Date: 08/06/21 Status: Ordered Start: 08-06-2021 take 1 mg by mouth t hree times daily diclofenac sodium 50 mg Oral EC Tab mg tab(s), Oral, TID, Refills(s) 0 Start Date: 08/06/21 Status: Ordered Cymbalta (14 sources) Serotonin and Norepinephrine Reuptake Inhibitor Start: 08-06-2021 Cymbalta Oral, Refills(s) 0 Start Date: 08/06/21 Status: Ordered Start: 03-12-2017 Duloxetine (Cy mbalta) 60 mg Capsule,Delayed Release(Dr/Ec) Active 90 MG PO daily March 12, 2017 12:00am take 1 capsule by mo [facility] every twenty-four hours DULoxetine HCl 60 MG 1 capsule Orally Once a day Active famotidine 20 mg oral tablet (2 sources) Histamine-2 Receptor Antagonist Start: 02-15-2020 take 1 tablet by mouth once daily before mealtime Famotidine (Pepcid Ac) 20 mg Tablet Active 20 MG PO Daily February 15, 2020 12:00am HYDROcodone bitartrate 7.5 mg / ibuprofen 200 mg oral tablet (2 sources) Opioid Agonist, Nonsteroidal Anti-inflammatory Drug Start: 08-06-2021 take 1 tablet by mouth three times daily for pain hydrocodone-ibup rofen 7.5 mg-200 mg Oral Tab 1 tab(s), Oral, TID for pain, Refill(s) 0 Start Date: 08/06/21 Status: Ordered losartan potassium 100 mg oral tablet (2 sources) Angiotensin 2 Receptor Karen Start: 10-14-2021 take 1 tablet by mouth once daily losartan 100 mg Tab 100 mg = 1 tab(s), Oral, Daily Start Date: 10/14/21 Status: Ordered meclizine hydrochloride 25 mg oral tablet (12 sources) Antiemetic Start: 09-10-2023 take 1 tablet by mouth every twelve hours as needed Meclizine Active 25 MG PO Every 12 hours September 10, 2023 1:00am FreeTextSi tablet as needed Orally every 12 hrs; Note: Source Status: Taking; Provider: Ira Joya ( ) take 1 tablet by rachel th every twelve hours Meclizine HCl 25 MG [...] Ordered 10 ml ocrelizumab 30 mg/ml injection (12 sources) Start: 09-10-2023 Ocrelizumab Ac tive MG IV September 10, 2023 1:00am FreeTextSig: as directed Intravenous As Directed; Note: Source Status: Taking; Provider: Ira Joya ( ) Ocrevus 300 MG/1 0ML as directed Intravenous As Directed Active ondansetron 4 mg oral tablet (12 sources) Serotonin-3 Receptor Antagonist Start: 02-15-2020 take 1 tablet by mouth three times daily Ondansetron Hcl (Zofran) 4 mg Tablet Active 4 MG PO Three times daily February 15, 2020 12:00am take 1 tablet by rachel th every twenty-four hours Ondansetron HCl 4 MG 1 tablet Orally Onc e a day Active OXcarbazepine 300 mg oral tablet (14 sources) Anti-epileptic Agent Start: 08-06-2021 take 2 tablets by mouth twice daily Trileptal 300 mg Tab 600 mg = 2 tab(s), Oral, BID, # 120 tab(s), Refills(s) 0 Start Date: 08/06/21 Status: Ordered Start: 02-15-2020 take 1 tablet by rachel th twice daily Oxcarbazepine (Trileptal) 600 mg Tablet Active 600 MG PO Twice daily February 15, 2020 12:00am take 1 tablet by rachel th every twelve hours OXcarbazepine 300 MG 1 tablet Orally Twice a day Active oxybutynin chloride 5 mg oral tablet (2 sources) Cholinergic Muscarinic Antagonist Start: 02-15-2020 take 5 mg by mouth twice daily Oxybutynin Chloride Active 5 MG PO Twice daily February 15, 2020 12:00am oxyCODONE hydrochloride 10 mg oral tablet (20 sources) Opioid Agonist Start: 09-10-2023 End: 01-19-2024 take 10 mg by mouth every four to six hours Oxycodone Active 10 MG PO EVERY 4-6 HOURS 150 30 January 19, 2024 Start: 08-21-2023 take 1 tablet by rachel th every [...] G89.4 palliative care prescribing Mar, Active Start: 03-12-2017 End: 02-15-2020 take 15 mg by mouth every four to six hours Oxycodone Discontinued 15 MG PO EVERY 4-6 HOURS March 12, 2017 12:00am February 15, 2020 9:58am pantoprazole 40 mg delayed release oral tablet (14 sources) Proton Pump Inhibitor Start: 09-10-2023 take 1 tablet by mouth twice daily Pantoprazole Active 40 MG PO Twice daily September 10, 2023 1:00am FreeTextSi tablet Orally TWICE A DAY; Note: Source Status: Taking; Refills: 11; Provider: Imelda Orlando Start: 08-06-2021 take 1 mg by mouth twice daily pantoprazole 40 mg Oral EC Tab mg tab(s), Oral, BID, Refills(s) 0 Start Date: 08/06/21 Status: Ordered Start: 02-04-2021 take 1 tablet by rachel th every twelve hours Pantoprazole Sodium 40 MG 1 tablet Orally TWICE A DAY for 30 days Jan, Active predniSONE 10 mg oral tablet (12 sources) Start: 09-10-2023 Prednisone Act eb 10 MG PO As Directed September 10, 2023 1:00am FreeTextSig: as directed Orally as directed; Note: Source Status: TakingPRN; Provider: Ira Joya ( ) prednisone 10 mg as directed Orally as directed PRN Active pregabalin 200 mg oral capsule (14 sources) Start: 09-10-2023 take 1 capsule by mouth three times daily Pregabalin Active 200 MG PO Three times daily September 10, 2023 1:00am FreeTextSi capsule Orally tid; Note: Source Status: Taking; Provider: Ira Joya ( ) Start: 08-06-2021 take 1 capsule by mo uth three times daily Lyrica 200 mg Cap 200 mg = 1 cap(s), Oral, TID, Refills(s) 0 Start Date: 08/06/21 Status: Ordered take 1 capsule by mo uth once daily at bedtime Pregabalin 200 MG 1 capsule 1 to 3 hours before bedtime Orally Once a day Active primidone 50 mg oral tablet (14 sources) Anti-epileptic Agent Start: 09-10-2023 take 1 tablet by mouth once daily Primidone Active 50 MG PO Daily September 10, 2023 1:00am FreeTextSi tablet Orally Once a day; Note: Source Status: Taking; Provider: Ira Joya ( ) Start: 08-06-2021 primidone 50 m g Tab 25 mg = 0.5 tab(s), Oral, Once a day (at bedtime), # 15 tab(s), Refills(s) 0 Start Date: 08/06/21 Status: Ordered take 1 tablet by rachel th every twenty-four hours Primidone 50 MG 1 tablet Orally Once a day Active QUEtiapine 25 mg oral tablet (14 sources) Atypical Antipsychotic Start: 08-06-2021 take 2 tablets by mouth three times daily SEROquel 25 mg Tab 50 mg = 2 tab(s), Oral, TID, Refills(s) 0 Start Date: 08/06/21 Status: Ordered Start: 02-15-2020 take 3 tablets by mo uth once daily at bedtime Quetiapine (Seroquel) 25 mg Tablet Active 75 MG PO Daily at bedtime February 15, 2020 12:00am take 1 tablet by rachel th every twenty-four hours SEROquel 50 MG 1 tablet at bedtime Orally Once a day Active Sennosides (2 sources) Start: 09-10-2023 take 2 tablets by mouth twice daily as needed Sennosides Active MG PO September 10, 2023 1:00am FreeTextSi tabs as needed Orally BID; Note: Source Status: Taking; Refills: 2; Qty: 120 Tablet; Provider: Ira Chaudhry sennosides, detention 8.6 mg oral tablet (9 sources) Start: 04-02-2023 take 2 tablets by mouth twice daily as needed Senna 8.6 MG 2 tabs as needed Orally BID for 30 days Mar, Active tamsulosin hydrochloride 0.4 mg oral capsule (3 sources) alpha-Adrenerg ic Karen Start: 02-15-2020 take 1 capsule by mouth once daily Tamsulosin (Flomax) 0.4 mg Capsule Active 0.4 MG PO Daily February 15, 2020 12:00am Completed/Discontinued Medications Medication Drug Class(es) Dates Sig (Normalized) Sig (Original) 72 hr fentaNYL 0.05 mg/hr transdermal system (2 sources) Opioid Agonist Start: 03-12-2017 End: 02-15-2020 Fentanyl Discontinued 1 PATCH TRANSDERML Q72H March 12, 2017 12:00am February 15, 2020 9:58am gabapentin 300 mg oral capsule (2 sources) Anti-epileptic Agent Start: 03-12-2017 End: 02-15-2020 take 1 capsule by mouth twice daily Gabapentin (Neurontin) 300 mg Capsule Discontinued 300 MG PO Twice daily March 12, 2017 12:00am February 15, 2020 9:58am 15 ml natalizumab 20 mg/ml injection (2 sources) Integrin Receptor Antagonist Start: 03-12-2017 End: 02-15-2020 Natalizumab (Tysabri) 300 mg/15 mL Solution Discontinued 300 MG IV EVERY 4 WEEKS March 12, 2017 12:00am February 15, 2020 9:58am promethazine hydrochloride 25 mg oral tablet (12 sources) Phenothiazine Start: 03-12-2017 End: 02-15-2020 take 25 mg by mouth every six hours Promethazine Discontinued 25 MG PO Q6H March 12, 2017 12:00am February 15, 2020 9:58am Promethazine HCl PRN Active raNITIdine 150 mg oral tablet (2 sources) Histamine-2 Receptor Antagonist Start: 03-12-2017 End: 02-15-2020 take 150 mg by mouth once daily at bedtime Ranitidine Hcl Discontinued 150 MG PO Daily at bedtime March 12, 2017 12:00am February 15, 2020 9:58am sucralfate 1000 mg oral tablet (2 sources) Aluminum Complex Start: 03-12-2017 End: 02-15-2020 take 1 tablet by mouth four times daily Sucralfate (Carafate) 1 gram Tablet Discontinued 1 GM PO Four times daily March 12, 2017 12:00am February 15, 2020 9:59am traMADol hydrochloride 50 mg oral tablet (2 sources) Opioid Agonist Start: 02-15-2020 End: 09-10-2023 take 50 mg by mouth twice daily Tramadol Discontinued 50 MG PO Twice daily February 15, 2020 12:00am September 10, 2023 4:03pm Problems Active Problems Problem Classification Problem Date [...] moderate] Onset: 2 08-31-2019 Chronic Multiple sclerosis (20 sources) Multiple sclerosis; Translations: [Multiple sclerosis] Onset: 3 09-21-2019 Chronic Comment on above: Aug 2000 Nausea and vomiting (15 sources) Nausea with vomiting, unspecified; Translations: [Nausea] Onset: 3 Episodic Other aftercare (1 source) Other residential (current) drug therapy; Translations: [OTH ALF CURRENT DRUG THERAPY] Onset: 3 Episodic Other aftercare (10 sources) Seen by palliative care physician; Translations: [Encounter for palliative care] Episodic Other aftercare (1 source) Encounter for palliative care Episodic Other aftercare (2 sources) Long-term current use of drug therapy; Translations: [snf (current) use of opiate analgesic] 09-10-2023 Episodic Other aftercare (1 source) technician (current) use of opiate analgesic; Translations: [Long-term (current) use of other medications] 09-17-2023 Episodic Other diseases of kidney and ureters (1 source) Urinary tract obstruction; Translations: [Other obstructive and reflux uropathy] Onset: 2 Episodic Other gastrointestinal disorders (12 sources) Constipation; Translations: [Constipation, unspecified] 09-17-2023 Episodic Other gastrointestinal disorders (7 sources) Constipation, unspecified; Translations: [Constipation, unspecified] Episodic Other male genital disorders (2 sources) Mass of epididymis 08-31-2019 Episodic Other nervous system disorders (16 sources) Other chronic pain; Translations: [Other chronic pain] Onset: 3 Chronic Other nervous system disorders (1 source) Polyneuropathy, unspecified; Translations: [POLYNEUROPATHY UNSPECIFIED] Onset: 2 Chronic Other nervous system disorders (1 source) Chronic pain syndrome; Translations: [CHRONIC PAIN SYNDROME] Onset: 2 Chronic Other nervous system disorders (12 sources) Chronic pain; Translations: [Other chronic pain] 09-17-2023 Chronic Other nervous system disorders (1 source) [...] [Catalytic activity/Vol] 37 U/L Normal 25-115 [facility] Comment on above: Performed By: #### A MY, CMP, LIPA ####[facility] [address] [address]Dr. Cortez Younger CBC AUTO DIFFon 11-13-2022 BASO # 0.1 103/ul Normal 0.0-0.1 [facility] Comment on above: Performed By: #### C BC #### [facility] [address] [address] [address] Cortez Younger Basophils/100 WBC (Bld) 1.3 % Normal 0.2-2.0 [facility] Comment on above: Performed By: #### C BC #### [facility] [address] [address] [address] Cortez Younger EO # 0.1 103/ul Normal 0.0-0.7 [facility] Comment on above: Performed By: #### C BC #### [facility] [address] [address] [address] Cortez Younger Eosinophils/100 WBC (Bld) 0.9 % Normal 0.9-7.0 [facility] Comment on above: Performed By: #### C BC #### [facility] [address] [address] [address] Cortez Younger Erythrocyte distribution width (RBC) [Ratio] 12.5 % Normal 11.0-15.0 [facility] Comment on above: Performed By: #### C BC #### [facility] [address] [address] [address] Cortez Younger Hematocrit (Bld) [Volume fraction] 42.3 % Normal 42.0-54.0 [facility] Comment on above: Performed By: #### C BC #### [facility] [address] [place] [address] Dr. Cortez Younger Hemoglobin (Bld) [Mass/Vol] 15.1 g/dL Normal 14.0-18.0 [facility] Comment on above: Performed By: #### C BC #### [facility] [address] [place] [address] Dr. Cortez Younger IG # 0.04 10e3/ul Critically high 0.00-0.03 [facility] Comment on above: Performed By: #### C BC #### [facility] [address] [place] [address] Dr. Cortez Younger IG % 0.6 % Critically high 0.0-0.5 [facility] Comment on above: Performed By: #### C BC #### [facility] [address] [place] [address] Dr. Cortez Younger LYMPH # 1.4 103/ul Normal 1.2-3.8 [facility] Comment on above: Performed By: #### C BC #### [facility] [address] [place] [address] Dr. Cortez Younger Lymphocytes/100 WBC (Bld) 20.7 % Normal 20.5-60.0 [facility] Comment on above: Performed By: #### C BC #### [facility] [address] [place] [address] Dr. Cortez Younger MANUAL DIFF REQ NO Normal [facility] Comment on above: Performed By: #### C BC #### [facility] [address] [place] [address] Dr. Cortez Younger MCH (RBC) [Entitic mass] 31.6 pg Normal 25.9-34.0 [facility] Comment on above: Performed By: #### C BC #### [facility] [address] [place] [address] Dr. Cortez Younger MCHC (RBC) [Mass/Vol] 35.7 g/dL Critically high 29.9-35.2 [facility] Comment on above: Performed By: #### C BC #### [facility] [address] [place] [address] Dr. Cortez Younger MCV (RBC) [Entitic vol] 88.5 fL Normal 80.0-94.0 [facility] Comment on above: Performed By: #### C BC #### [facility] [address] [place] [address] Dr. Cortez Younger MONO # 0.5 103/ul Normal 0.3-0.8 [facility] Comment on above: Performed By: #### C BC #### [facility] [address] [place] [address] Dr. Cortez Younger Monocytes/100 WBC (Bld) 7.7 % Normal 1.7-12.0 [facility] Comment on above: Performed By: #### C BC #### [facility] [address] [place] [address] Dr. Cortez Younger NEUT # 4.8 103/ul Normal 1.4-6.5 [facility] Comment on above: Performed By: #### C BC #### [facility] [address] [place] [address] Dr. Cortez Younger Neutrophils/100 WBC (Bld) 68.8 % Normal 43.0-75.0 [facility] Comment on above: Performed By: #### C BC #### [facility] [address] [place] [address] Dr. Cortez Younger Platelet mean volume (Bld) [Entitic vol] 9.0 fL Critically low 9.5-13.5 [facility] Comment on above: Performed By: #### C BC #### [facility] [address] [place] [address] Dr. Cortez Younger PLT 384 103/ul Normal 150-450 [facility] Comment on above: Performed By: #### C BC #### [facility] [address] [place] [address] Dr. Cortez Younger RBC 4.78 106/ul Normal 4.70-6.10 [facility] Comment on above: Performed By: #### C BC #### [facility] [address] [address] [address] Cortez Younger WBC 7.0 103/ul Normal 4.0-11.0 [facility] Comment on above: Performed By: #### C BC #### [facility] [address] [address] [address] Cortez Younger ER URINE PROFILEon 3 Bilirubin Ql (U) Negative Normal NEGATIVE [facility] Comment on above: Performed By: #### E RUR ####[facility] [id number] [place], [place] [address]Dr. Cortez Younger Clarity (U) CLEAR Normal CLEAR [facility] Comment on above: Performed By: #### E RUR ####[facility] [address] [place], [place] [address]Dr. Cortez Younger Color (U) LT. YELLOW Normal YELLOW [facility] Comment on above: Performed By: #### E RUR ####[facility] [address] [place], [place] [address]Dr. Cortez Younger ERUAHD A micrscopic examina tion will be performed if indicated. Normal [facility] Comment on above: Performed By: #### E RUR ####[facility] [address] [place], [place] [address]Dr. Cortez Younger Glucose Ql (U) Negative Normal NEGATIVE [facility] Comment on above: Performed By: #### E RUR ####[facility] [address] [place], [place] [address]Dr. Cortez Younger Hemoglobin Ql (U) Negative Normal NEGATIVE [facility] Comment on above: Performed By: #### E RUR ####[facility] [address] [place], [place] [address]Dr. Cortez Younger Ketones Ql (U) Negative Normal NEGATIVE The [facility] Comment on above: Performed By: #### E RUR ####[facility] [id number] [place], [place] [address]Dr. Cortez Younger LEUKOCYTES Negative Normal NEGATIVE [facility] Comment on above: Performed By: #### E RUR ####[facility] [address] [address]Dr. Cortez Younger Nitrite Ql (U) Negative Normal NEGATIVE [facility] Comment on above: Performed By: #### E RUR ####[facility] [address] [address]Dr. Cortez Younger pH (U) 7.5 [pH] Normal 5-9 [facility] Comment on above: Performed By: #### E RUR ####[facility] [address] [place], [place] [address]Dr. Cortez Younger SPEC GRAVITY <=1.005 Abnormal 1.005-<=1.025 [facility] Comment on above: Performed By: #### E RUR ####[facility] [address] [place], [place] [address]Dr. Cortez Younger UA PROTEIN Negative Normal NEGATIVE/ TRACE [facility] Comment on above: Performed By: #### E RUR ####[facility] [address] [place], [place] [address]Dr. Cortez Younger UR MICRO IND NOT INDICATED Normal [facility] [facility] Comment on above: Performed By: #### E RUR ####[facility] U[address]tuq[address] [place], [place] [address]Dr. Cortez Younger Urobilinogen Qn (U) 0.2 {Fidelia'U}/dL Normal 0.2 - 1. 0 [facility] Comment on above: Performed By: #### E RUR ####[facility] Hywiydexqm[address] [place], [place] [address]Dr. Cortez Younger LIPASEon 11-13-2022 Lipase [Catalytic activity/Vol] 111.0 U/L Normal 73.0-393.0 [facility] Comment on above: Performed By: #### A MY, CMP, LIPA ####[facility] Vsrcptghyb[address] [place], [place] [address]Dr. Cortez Younger PROF 14(COMP METB)on 023 Albumin [Mass/Vol] 3.9 g/dL Normal 3.4-5.0 [facility] Comment on above: Performed By: #### A MY, CMP, LIPA ####[facility] [address] [place] [address]Dr. Cortez Aren Albumin/Globulin [Mass ratio] 1.4 {ratio} Normal [facility] Comment on above: Performed By: #### A MY, CMP, LIPA ####[facility] Gfasgxhwnq[address] [place], [place] [address]Dr. Cortez Aren ALP [Catalytic activity/Vol] 70 U/L Normal 46-116 [facility] Comment on above: Performed By: #### A MY, CMP, LIPA ####[facility] Xzrfvhfnjm[address] [place], [place] [address]Dr. Cortez Younger ALT [Catalytic activity/Vol] 24 U/L Normal 16-63 [facility] Comment on above: Performed By: #### A MY, CMP, LIPA ####[facility] Lsbppfizby[address] [place], [place] [address]Dr. Cortez Younger Anion gap [Moles/Vol] 9.8 mmol/L Normal [facility] Comment on above: Performed By: #### A MY, CMP, LIPA ####[facility] Yqtoyfoyfc[address] [place], [place] [address]Dr. Cortez Younger AST [Catalytic activity/Vol] 12 U/L Critically low 15-37 [facility] Comment on above: Performed By: #### A MY, CMP, LIPA ####[facility] Gbdyzqgycl[address] [place], [place] [address]Dr. Cortez Younger Bilirubin [Mass/Vol] 0.3 mg/dL Normal 0.2-1.0 [facility] Comment on above: Performed By: #### A MY, CMP, LIPA ####[facility] Rtvyhecznq[address] [place], [place] [address]Dr. Cortez Younger Calcium [Mass/Vol] 9.2 mg/dL Normal 8.5-10.1 [facility] Comment on above: Performed By: #### A MY, CMP, LIPA ####[facility] [address] [place] [address]Dr. Cortez Younger Chloride [Moles/Vol] 98 mmol/L Normal 98-107 [facility] Comment on above: Performed By: #### A MY, CMP, LIPA ####[facility] [address]rahsq[address] [place] [address]Dr. Cortez Younger CO2 [Moles/Vol] 28.7 mmol/L Normal 21.0-32.0 [facility] Comment on above: Performed By: #### A MY, CMP, LIPA ####[facility] Drjmwydqay[address] [place], [place] [address]Dr. Cortez Younger Creatinine [Mass/Vol] 0.88 mg/dL Normal 0.70-1.30 [facility] Comment on above: Performed By: #### A MY, CMP, LIPA ####[facility] Riyxwelvwf[address] [place], [place] [address]Dr. Cortez Younger EGFR-AF MAURITIAN >60 Normal >=60 [facility] Comment on above: Performed By: #### A MY, CMP, LIPA ####[facility] Ecstedzrdg[address] [place], [place] [address]Dr. Cortez Younger EGFR-NON AF MAURITIAN >60 Normal >=60 [facility] Comment on above: Performed By: #### A MY, CMP, LIPA ####[facility] Jdazrbpkyt[address] [place], [place] [address]Dr. Cortez Younger Globulin (S) [Mass/Vol] 2.7 g/dL Normal [facility] Comment on above: Performed By: #### A MY, CMP, LIPA ####[facility] [address] [place] [address]Dr. Cortez Younger Glucose [Mass/Vol] 105 mg/dL Normal 74-106 [facility] Comment on above: Performed By: #### A MY, CMP, LIPA ####[facility] Coprscohxv64[address] [place], [place] [address]Dr. Cortez Younger Potassium [Moles/Vol] 3.5 mmol/L Normal 3.5-5.1 [facility] Comment on above: Performed By: #### A MY, CMP, LIPA ####[facility] [address]quc[address] [place] [address]Dr. Cortez Younger Protein [Mass/Vol] 6.6 g/dL Normal 6.4-8.2 [facility] Comment on above: Performed By: #### A MY, CMP, LIPA ####[facility] [address]pe[address] [place] [address]Dr. Cortez Younger Sodium [Moles/Vol] 133 mmol/L Critically low 136-145 [facility] Comment on above: Performed By: #### A MY, CMP, LIPA ####[facility] [address] [place] [address]Dr. Cortez Younger Urea nitrogen [Mass/Vol] 4.0 mg/dL Critically low 7.0-18.0 [facility] Comment on above: Performed By: #### A MY, CMP, LIPA ####[facility] [address]rltca[address] [place] [address]Dr. Cortez Younger Urea nitrogen/Creatinine [Mass ratio] 4.5 mg/mg Normal [facility] Comment on above: Performed By: #### A MY, CMP, LIPA ####[facility] Qprmfvfqed[address] [place], [place] [address]Dr. Cortez Younger XR ABD FLAT UP_PA Farideh [...] by: CRUZITO CRENSHAW Date: 2022-11-13 13:22 Normal [facility] FREE T4on 10-31-2022 Free T4 [Mass/Vol] 1.03 ng/dL Normal 0.76-1.46 [facility] Comment on above: Performed By: #### E RUR #### [facility] [address] [address] [address] Cortez Younger LIPID PROFILEon 10-31-2022 CHOL-HDL RATIO NORM SEE BELOW Normal [facility] Comment on above: Result Comment: 3.3 - 4.4 LOW RISK 4.4 - 7.1 AVERAGE RISK 7.1 - 11.0 MODERATE RISK >11.0 HIGH RISK Performed By: #### E RUR #### [facility] [address] [address] [address] Cortez Younger Cholesterol [Mass/Vol] 165 mg/dL Normal <=200 [facility] Comment on above: Performed By: #### E RUR #### [facility] [address] [address] [address] Cortez Younger Cholesterol in HDL [Mass/Vol] 59 mg/dL Normal 40-60 [facility] Comment on above: Performed By: #### E RUR #### [facility] [address] [address] [address] Cortez Younger Cholesterol in LDL [Mass/Vol] 83.8 mg/dL Normal [facility] Comment on above: Performed By: #### E RUR #### [facility] [address] [address] [address] Cortez Younger Cholesterol.total/C holesterol in HDL [Mass ratio] 2.8 {ratio} Normal [facility] Comment on above: Performed By: #### E RUR #### [facility] [address] [address] [address] Cortez Younger HDL NORMAL > or = 60 mg/dl - LO W CARDIOVASCULAR RISK <40 mg/dl - HIGH CARDIOVASCULAR RISK Normal [facility] Comment on above: Performed By: #### E RUR #### [facility] [id number] Cortez Younger LDL CALC NORMAL SEE BELOW Normal [facility] Comment on above: Result Comment: <100 mg/dl OPTIMAL 100 - 129 mg/dl NEAR OR ABOVE OPTIMAL 130 - 159 mg/dl BORDERLINE HIGH 160 - 189 mg/dl HIGH >190 mg/dl VERY HIGH Performed By: #### E RUR #### [facility] [address] [address] [address] Cortez Younger Triglyceride [Mass/Vol] 111 mg/dL Normal <=150 [facility] Comment on above: Performed By: #### E RUR #### [facility] [address] [place], [place] [address] Dr. Cortez Younger VLDL CALC 22.2 mg/dL Normal [facility] Comment on above: Performed By: #### E RUR #### [facility] [id number] Cortez Younger MRI BRAIN WO W [...] VERN LU Date: 2022-10-31 13:12 Normal [facility] PROF 14(COMP METB)on 023 Albumin [Mass/Vol] 4.0 g/dL Normal 3.4-5.0 [facility] Comment on above: Performed By: #### C MP ####[facility] [address] [place] [address]Dr. Cortez Aren Albumin/Globulin [Mass ratio] 1.3 {ratio} Normal [facility] Comment on above: Performed By: #### C MP ####[facility] Bnblwfsamy[address] [place], [place] [address]Dr. Cortez Aren ALP [Catalytic activity/Vol] 66 U/L Normal 46-116 [facility] Comment on above: Performed By: #### C MP ####[facility] Panedgqzgb[address] [place], [place] [address]Dr. Eleanorvalerie Younger ALT [Catalytic activity/Vol] 21 U/L Normal 16-63 [facility] Comment on above: Performed By: #### C MP ####[facility] Ixlsvvzdop[address] [place], [place] [address]Dr. Cortez Younger Anion gap [Moles/Vol] 9.4 mmol/L Normal [facility] Comment on above: Performed By: #### C MP ####[facility] Nchhhyudnu[address] [place], [place] [address]Dr. Eleanorvalerie Younger AST [Catalytic activity/Vol] 10 U/L Critically low 15-37 [facility] Comment on above: Performed By: #### C MP ####[facility] Itxiqkmknl[address] [place], [place] [address]Dr. Cortez Younger Bilirubin [Mass/Vol] 0.4 mg/dL Normal 0.2-1.0 [facility] Comment on above: Performed By: #### C MP ####[facility] Yjqjsirwmv[address] [place], [place] [address]Dr. Cortez Younger Calcium [Mass/Vol] 9.1 mg/dL Normal 8.5-10.1 [facility] Comment on above: Performed By: #### C MP ####[facility] Rrqohaznpr[address] [place], [place] [address]Dr. Cortez Younger Chloride [Moles/Vol] 98 mmol/L Normal 98-107 [facility] Comment on above: Performed By: #### C MP ####[facility] Gdkomekvjo[address] [place], [place] [address]Dr. Cortez Younger CO2 [Moles/Vol] 29.8 mmol/L Normal 21.0-32.0 [facility] Comment on above: Performed By: #### C MP ####[facility] [address] [place] [id number]. Cortez Younger Creatinine [Mass/Vol] 0.89 mg/dL Normal 0.70-1.30 [facility] Comment on above: Performed By: #### C MP ####[facility] [address] [place] [id number]. Cortez Younger EGFR-AF MAURITIAN >60 Normal >=60 [facility] Comment on above: Performed By: #### C MP ####[facility] [address] [place] [address]Dr. Cortez Younger EGFR-NON AF MAURITIAN >60 Normal >=60 [facility] Comment on above: Performed By: #### C MP ####[facility] Uiocwyvbcd[address] [place], [place] [address]Dr. Cortez Aren Globulin (S) [Mass/Vol] 3.1 g/dL Normal [facility] Comment on above: Performed By: #### C MP ####[facility] Zhshkybqkh[address] [place], [place] [address]Dr. Cortez Aren Glucose [Mass/Vol] 109 mg/dL Critically high 74-106 [facility] Comment on above: Performed By: #### C MP ####[facility] Mneqxnmkxz[address] [place], [place] [address]Dr. Cortez Aren Potassium [Moles/Vol] 4.2 mmol/L Normal 3.5-5.1 [facility] Comment on above: Performed By: #### C MP ####[facility] [address]rs[address] [place], [place] [address]Dr. Cortez Aren Protein [Mass/Vol] 7.1 g/dL Normal 6.4-8.2 [facility] Comment on above: Performed By: #### C MP ####[facility] Rdtympzpul[address] [place], [place] [address]Dr. Cortez Aren Sodium [Moles/Vol] 133 mmol/L Critically low 136-145 [facility] Comment on above: Performed By: #### C MP ####[facility] [address] [place] [address]Dr. Cortez Younger Urea nitrogen [Mass/Vol] 7.0 mg/dL Normal 7.0-18.0 [facility] Comment on above: Performed By: #### C MP ####[facility] [address] [place] [address]DrFish Younger Urea nitrogen/Creatinine [Mass ratio] 7.9 mg/mg Normal [facility] Comment on above: Performed By: #### C MP ####[facility] [address] [place] [address]Dr. Cortez Younger TSHon 10-31-2022 TSH 1.574 uIU/mL Normal 0.358-3.740 [facility] Comment on above: Performed By: #### T SH #### [facility] [address] [address] [address] Cortez Younger COMPLIANCE DRUG SCREENon PDF . Normal [facility] Comment on above: Performed By: #### E RUR #### [facility] [address] [place] [address] Dr. Cortez Younger Summary FINAL [facility] Comment on above: Result Comment: == [...] test is not intended to distinguish between ykhak-8-ypaoqfbuklhmbiigndia, the predominant form of THC in most herbal or marijuana-based products, and gcknh-9-jstnquxjpleldafawfya. Norhydrocodone 1620 ng/mg creat Norhydrocodone is an [...] == Performed By: #### E RUR #### [facility] [address] [address] [address] Cortez Younger HYDROCODONE AND METABOLITE, URINEon 10-24-2022 Hydrocodone 55 ng/mL Normal [facility] Comment on above: Performed By: #### E RUR #### [facility] [address] [address] [address] Cortez Younger Hydromorphone Negative Normal [facility] Comment on above: Result Comment: This test was developed and its performance characteristics determined by [facility]. It has not been cleared or approved by the Food and Drug Administration. Performed By: #### E RUR #### [facility] [address] [address] [address] Cortez Younger OSMOLALITYon 10-20-2022 Osmolality QNSREP Normal [facility] Comment on above: Result Comment: Spec imen quantity insufficient for verification by repeat analysis. contacted Lynda at your facility on 10-20-2022 Performed By: #### C BC #### [facility] [address] [place] [address] Dr. Cortez Younger OSMOLALITY URINEon Osmolality, Urine 119 mOsmol/kg Normal [facility] Comment on above: Result Comment: 24 h r : 300 - 900 Random: 50 - 1400 After 12hr fluid restriction: >850 Performed By: #### O SMOU ####[facility] [address] [place] [address]Dr. Cortez Younger CBC AUTO DIFFon 10-16-2022 BASO # 0.0 103/ul Normal 0.0-0.1 [facility] Comment on above: Performed By: #### C BC ####[facility] [address] [place] [address]Dr. Cortez Younger Basophils/100 WBC (Bld) 0.3 % Normal 0.2-2.0 [facility] Comment on above: Performed By: #### C BC ####[facility] Q[address]ibf[address] [place] [id number]. Cortez Younger EO # 0.0 103/ul Normal 0.0-0.7 [facility] Comment on above: Performed By: #### C BC ####[facility] [address]mr[address] [place] [address]Dr. Cortez Younger Eosinophils/100 WBC (Bld) 0.2 % Critically low 0.9-7.0 [facility] Comment on above: Performed By: #### C BC ####[facility] Bswzclujoo[address] [place], [place] [address]Dr. Cortez Younger Erythrocyte distribution width (RBC) [Ratio] 12.1 % Normal 11.0-15.0 [facility] Comment on above: Performed By: #### C BC ####[facility] Ululwhipzl[address] [place], [place] [address]Dr. Cortez Younger Hematocrit (Bld) [Volume fraction] 45.9 % Normal 42.0-54.0 [facility] Comment on above: Performed By: #### C BC ####[facility] Whvfnlaubn[address] [place], [place] [address]Dr. Cortez Younger Hemoglobin (Bld) [Mass/Vol] 16.7 g/dL Normal 14.0-18.0 [facility] Comment on above: Performed By: #### C BC ####[facility] Fgdfugfadf[address] [place], [place] [address]Dr. Cortez Younger IG # 0.06 10e3/ul Critically high 0.00-0.03 [facility] Comment on above: Performed By: #### C BC ####[facility] Rlfopeoasb[address] [place], [place] [address]Dr. Cortez Younger IG % 0.5 % Normal 0.0-0.5 [facility] Comment on above: Performed By: #### C BC ####[facility] Qfnmgyxbsl[address] [place], [place] [address]Dr. Cortez Younger LYMPH # 1.5 103/ul Normal 1.2-3.8 [facility] Comment on above: Performed By: #### C BC ####[facility] Hztiuizjlc27[address] [place] [id number]. Cortez Aren Lymphocytes/100 WBC (Bld) 13.5 % Critically low 20.5-60.0 [facility] Comment on above: Performed By: #### C BC ####[facility] [address]znml[address] [place] [id number]. Cortez Younger MANUAL DIFF REQ NO Normal [facility] Comment on above: Performed By: #### C BC ####[facility] T[address] [place] [id number]. Eleanorvalerie Younger MCH (RBC) [Entitic mass] 31.2 pg Normal 25.9-34.0 [facility] Comment on above: Performed By: #### C BC ####[facility] Bakqeawfvq[address] [place], [place] [address]Dr. Cortez Younger MCHC (RBC) [Mass/Vol] 36.4 g/dL Critically high 29.9-35.2 [facility] Comment on above: Performed By: #### C BC ####[facility] [address]zmws[address] [place] [id number]. Eleanorvalerie Younger MCV (RBC) [Entitic vol] 85.6 fL Normal 80.0-94.0 [facility] Comment on above: Performed By: #### C BC ####[facility] Ezdctsgqgr[address] [place], [place] [address]Dr. Cortez Younger MONO # 0.6 103/ul Normal 0.3-0.8 [facility] Comment on above: Performed By: #### C BC ####[facility] Achzzptetx[address] [place], [place] [address]Dr. Cortez Younger Monocytes/100 WBC (Bld) 5.4 % Normal 1.7-12.0 [facility] Comment on above: Performed By: #### C BC ####[facility] [address]mwtd[address] [place], [place] [address]Dr. Cortez Younger NEUT # 8.9 103/ul Critically high 1.4-6.5 [facility] Comment on above: Performed By: #### C BC ####[facility] [address] [place], [place] [address]Wp. Cortez Younger Neutrophils/100 WBC (Bld) 80.1 % Critically high 43.0-75.0 [facility] Comment on above: Performed By: #### C BC ####[facility] [address]okcoqdx4[address] [place], [place] [address]Ws. Cortez Younger Platelet mean volume (Bld) [Entitic vol] 9.7 fL Normal 9.5-13.5 [facility] Comment on above: Performed By: #### C BC ####[facility] [address]zw[address] [place] [id number]. Cortez Younger PLT 364 103/ul Normal 150-450 [facility] Comment on above: Performed By: #### C BC ####[facility] [address]ib[address] [place] [id number]. Cortez Younger RBC 5.36 106/ul Normal 4.70-6.10 [facility] Comment on above: Performed By: #### C BC ####[facility] [address] [place], [place] [address]Om. Cortez Younger WBC 11.1 103/ul Critically high 4.0-11.0 [facility] Comment on above: Performed By: #### C BC ####[facility] [address]wvsy24[address] [place], [place] [address]Cq. Cortez Younger [facility]on SARS-CoV-2 (COVID-19) RNA AXEL+probe Ql (Unsp spec) Not detected Normal NOT DETECTED [facility] Comment on above: Result Comment: When [...] for this test is supported by the Director Of [employer] Work of [employer] and Human Service's declaration that [...] be used). Performed By: #### C VDTB ####[facility] [address] [place] [address]Dr. Cortez Younger DRUG SCREEN RAPID (URINE)on 10-16-2022 AMP Negative Normal NEGATIVE [facility] Comment on above: Performed By: #### C BC #### [facility] [address] [place] [address] Dr. Cortez Younger BAR Positive Abnormal NEGATIVE [facility] Comment on above: Performed By: #### C BC #### [facility] [address] [place] [address] Dr. Cortez Younger BUP Negative Normal NEGATIVE [facility] Comment on above: Performed By: #### C BC #### [facility] [address] [place] [address] Dr. Cortez Younger BZO Positive Abnormal NEGATIVE [facility] Comment on above: Performed By: #### C BC #### [facility] [address] [place] [address] Dr. Cortez Yonuger [place] Negative Normal NEGATIVE [facility] Comment on above: Performed By: #### C BC #### [facility] [address] [place] [address] Dr. Cortez Younger CUT-OFFS SEE BELOW Normal [facility] Comment on above: Result Comment: AMP [...] ng/mL Performed By: #### C BC #### [facility] [address] [place] [address] Dr. Cortez Younger DRUG CUT HEADER DRUG CLASS TEST SYST EM CUT-OFF CONCENTRATIONS ARE FOLLOWS: Normal [facility] Comment on above: Performed By: #### C BC #### [facility] [address] [place] [address] Dr. Cortez Younger mAMP Negative Normal NEGATIVE [facility] Comment on above: Performed By: #### C BC #### [facility] [address] [place] [address] Dr. Cortez Younger MTD Negative Normal NEGATIVE [facility] Comment on above: Performed By: #### C BC #### [facility] [address] [place] [address] Dr. Cortez Younger OPI Positive Abnormal NEGATIVE [facility] Comment on above: Performed By: #### C BC #### [facility] [address] [place] [address] Dr. Cortez Younger OXY Negative Normal NEGATIVE [facility] Comment on above: Performed By: #### C BC #### [facility] [address] [place] [address] Dr. Cortez Younger PCP Negative Normal NEGATIVE [facility] Comment on above: Performed By: #### C BC #### [facility] [address] [place] [address] Dr. Cortez Younger PPX Negative Normal NEGATIVE [facility] Comment on above: Performed By: #### C BC #### [facility] [address] [place] [address] Dr. Cortez Younger TCA Negative Normal NEGATIVE [facility] Comment on above: Performed By: #### C BC #### [facility] [address] [place] [address] Dr. Cortez Younger THC Positive Abnormal NEGATIVE [facility] Comment on above: Performed By: #### C BC #### [facility] [address] [address] [address] Cortez Younger ER URINE PROFILEon 3 Bilirubin Ql (U) Negative Normal NEGATIVE [facility] Comment on above: Performed By: #### C BC #### [facility] [address] [place] [address] Dr. Cortez Younger Clarity (U) CLEAR Normal CLEAR [facility] Comment on above: Performed By: #### C BC #### [facility] [address] [place] [address] Dr. Cortez Younger Color (U) LT. YELLOW Normal YELLOW [facility] Comment on above: Performed By: #### C BC #### [facility] [address] [place] [address] Dr. Cortez PRESTON A micrscopic examina tion will be performed if indicated. Normal [facility] Comment on above: Performed By: #### C BC #### [facility] [address] [place] [address] Dr. Cortez Younger Glucose Ql (U) Negative Normal NEGATIVE [facility] Comment on above: Performed By: #### C BC #### [facility] [address] [place] [address] Dr. Cortez Younger Hemoglobin Ql (U) Negative Normal NEGATIVE [facility]. [facility] Comment on above: Performed By: #### C BC #### [facility] [address] [place] [address] Dr. Cortez Younger Ketones Ql (U) Negative Normal NEGATIVE [facility] Comment on above: Performed By: #### C BC #### [facility] [address] [place] [address] Dr. Cortez Younger LEUKOCYTES Negative Normal NEGATIVE [facility] Comment on above: Performed By: #### C BC #### [facility] [address] [place] [address] Dr. Cortez Younger Nitrite Ql (U) Negative Normal NEGATIVE [facility] Comment on above: Performed By: #### C BC #### [facility] [address] [place] [address] Dr. Cortez Younger pH (U) 7.5 [pH] Normal 5-9 [facility] Comment on above: Performed By: #### C BC #### [facility] [address] [address] [address] Cortez Younger SPEC GRAVITY <=1.005 Abnormal 1.005-<=1.025 [facility] Comment on above: Performed By: #### C BC #### [facility] [address] [address] [address] Cortez Younger UA PROTEIN Negative Normal NEGATIVE/ TRACE [facility] Comment on above: Performed By: #### C BC #### [facility] [address] [address] [address] Cortez Younger UR MICRO IND NOT INDICATED Normal [facility] Comment on above: Performed By: #### C BC #### [facility] [address] [place] [address] Dr. Cortez Younger Urobilinogen Qn (U) 0.2 {Fidelia'U}/dL Normal 0.2 - 1. 0 [facility] Comment on above: Performed By: #### C BC #### [facility] [address] [place] [address] Dr. Cortez Younger NAon 10-16-2022 Sodium [Moles/Vol] 125 mmol/L Critically low 136-145 Th [facility] Comment on above: Performed By: #### E RUR #### [facility] [address] [place] [address] Dr. Cortez Younger POTASSIUM URINEon 10-16-2022 UR POTASSIUM 11.8 mmol/L Normal [facility] Comment on above: Performed By: #### K U ####[facility] [address] [address]Dr. Cortez Younger PROF 14(COMP METB)on 023 Albumin [Mass/Vol] 4.2 g/dL Normal 3.4-5.0 [facility] Comment on above: Performed By: #### E RUR #### [facility] [address] [place] [address] Dr. Cortez Younger Albumin/Globulin [Mass ratio] 1.3 {ratio} Normal [facility] Comment on above: Performed By: #### E RUR #### [facility] [address] [address] [address] Cortez Younger ALP [Catalytic activity/Vol] 75 U/L Normal 46-116 [facility] Comment on above: Performed By: #### E RUR #### [facility] [address] [address] [address] Cortez Younger ALT [Catalytic activity/Vol] 23 U/L Normal 16-63 [facility] Comment on above: Performed By: #### E RUR #### [facility] [address] [address] [address] Cortez Younger Anion gap [Moles/Vol] 9.7 mmol/L Normal [facility] Comment on above: Performed By: #### E RUR #### [facility] [address] [place] [address] Dr. Cortez Younger AST [Catalytic activity/Vol] 16 U/L Normal 15-37 [facility] Comment on above: Performed By: #### E RUR #### [facility] [address] [address] [address] Cortez Younger Bilirubin [Mass/Vol] 0.4 mg/dL Normal 0.2-1.0 [facility] Comment on above: Performed By: #### E RUR #### [facility] [address] [address] [address] Cortez Younger Calcium [Mass/Vol] 9.1 mg/dL Normal 8.5-10.1 [facility] Comment on above: Performed By: #### E RUR #### [facility] [address] [address] [address] Cortez Younger Chloride [Moles/Vol] 88 mmol/L Critically low 98-107 [facility] Comment on above: Performed By: #### E RUR #### [facility] [address] [address] [address] Cortez Younger CO2 [Moles/Vol] 26.5 mmol/L Normal 21.0-32.0 [facility] Comment on above: Performed By: #### E RUR #### [facility] [address] [address] [address] Cortez Younger Creatinine [Mass/Vol] 0.73 mg/dL Normal 0.70-1.30 [facility] Comment on above: Performed By: #### E RUR #### [facility] [address] [address] [address] Cortez Younger EGFR-AF MAURITIAN >60 Normal >=60 [facility] Comment on above: Performed By: #### E RUR #### [facility] [address] [address] [address] Cortez Younger EGFR-NON AF MAURITIAN >60 Normal >=60 [facility] Comment on above: Performed By: #### E RUR #### [facility] [address] [place] [address] Dr. Cortez Younger Globulin (S) [Mass/Vol] 3.2 g/dL Normal [facility] Comment on above: Performed By: #### E RUR #### [facility] [address] [address] [address] Cortez Younger Glucose [Mass/Vol] 109 mg/dL Critically high 74-106 T [facility] Comment on above: Performed By: #### E RUR #### [facility] [address] [place] [address] Dr. Cortez Younger Potassium [Moles/Vol] 4.2 mmol/L Normal 3.5-5.1 [facility] Comment on above: Performed By: #### E RUR #### [facility] [address] [address] [address] Cortez Younger Protein [Mass/Vol] 7.4 g/dL Normal 6.4-8.2 [facility] Comment on above: Performed By: #### E RUR #### [facility] [address] [address] [address] Cortez Younger Sodium [Moles/Vol] 120 mmol/L Critically low 136-145 Th [facility] Comment on above: Performed By: #### E RUR #### [facility] [address] [address] [address] Cortez Younger Urea nitrogen [Mass/Vol] 7.0 mg/dL Normal 7.0-18.0 [facility] Comment on above: Performed By: #### E RUR #### [facility] [address] [address] [address] Cortez Younger Urea nitrogen/Creatinine [Mass ratio] 9.6 mg/mg Normal [facility] Comment on above: Performed By: #### E RUR #### [facility] [address] [address] [address] Cortez Younger SODIUM RANDOM URINEon 2022 Sodium (U) [Moles/Vol] 26 mmol/L Critically low 30-90 [facility] Comment on above: Performed By: #### N AU ####[facility] [address] [place], [place] [address]Dr. Cortez Younger ACETONE SERUMon 10-07-2022 ACETONE Negative Normal NEGATIVE [facility] Comment on above: Performed By: #### E RUR #### [facility] [address] [place] [address] Dr. Cortez Younger CBC AUTO DIFFon 10-07-2022 BASO # 0.1 103/ul Normal 0.0-0.1 [facility] Comment on above: Performed By: #### C BC ####[facility] [address] [place], [place] [address]DrFish Younger Basophils/100 WBC (Bld) 0.8 % Normal 0.2-2.0 [facility] Comment on above: Performed By: #### C BC ####[facility] [address] [address]DrFish Younger EO # 0.0 103/ul Normal 0.0-0.7 [facility] Comment on above: Performed By: #### C BC ####[facility] [address] [place], [place] [address]DrFish Younger Eosinophils/100 WBC (Bld) 0.2 % Critically low 0.9-7.0 [facility] Comment on above: Performed By: #### C BC ####[facility] [address] [address]Dr. Cortez Younger Erythrocyte distribution width (RBC) [Ratio] 12.1 % Normal 11.0-15.0 [facility] Comment on above: Performed By: #### C BC ####[facility] [address] [place], [place] [address]Dr. Cortez Younger Hematocrit (Bld) [Volume fraction] 42.9 % Normal 42.0-54.0 [facility] Comment on above: Performed By: #### C BC ####[facility] [address] [place], [place] [address]Dr. Cortez Younger Hemoglobin (Bld) [Mass/Vol] 15.4 g/dL Normal 14.0-18.0 [facility] Comment on above: Performed By: #### C BC ####[facility] [address] [place], [place] [address]Dr. Cortez Younger IG # 0.04 10e3/ul Critically high 0.00-0.03 [facility] Comment on above: Performed By: #### C BC ####[facility] [address] [place], [place] [address]Dr. Cortez Younger IG % 0.4 % Normal 0.0-0.5 [facility] Comment on above: Performed By: #### C BC ####[facility] [address] [place], [place] [address]Dr. Cortez Younger LYMPH # 1.3 103/ul Normal 1.2-3.8 [facility] Comment on above: Performed By: #### C BC ####[facility] [address] [place], [place] [address]Dr. Cortez Younger Lymphocytes/100 WBC (Bld) 13.7 % Critically low 20.5-60.0 [facility] Comment on above: Performed By: #### C BC ####[facility] [address] [place], [place] [address]Dr. Cortez Younger MANUAL DIFF REQ NO Normal [facility] Comment on above: Performed By: #### C BC ####[facility] [address] [id number]. Cortez Aren MCH (RBC) [Entitic mass] 31.4 pg Normal 25.9-34.0 [facility] Comment on above: Performed By: #### C BC ####[facility] [address] [id number]. Cortez Aren MCHC (RBC) [Mass/Vol] 35.9 g/dL Critically high 29.9-35.2 [facility] Comment on above: Performed By: #### C BC ####[facility] [address] [address]Dr. Eleanorvalerie Younger MCV (RBC) [Entitic vol] 87.4 fL Normal 80.0-94.0 [facility] Comment on above: Performed By: #### C BC ####[facility] [address] [place], [place] [address]Dr. Cortez Younger MONO # 0.4 103/ul Normal 0.3-0.8 [facility] Comment on above: Performed By: #### C BC ####[facility] [address] [address]Dr. Cortez Younger Monocytes/100 WBC (Bld) 3.6 % Normal 1.7-12.0 [facility] Comment on above: Performed By: #### C BC ####[facility] [address] [address]Dr. Cortez Younger NEUT # 7.9 103/ul Critically high 1.4-6.5 [facility] Comment on above: Performed By: #### C BC ####[facility] [address] [id number] Younger Neutrophils/100 WBC (Bld) 81.3 % Critically high 43.0-75.0 [facility] Comment on above: Performed By: #### C BC ####[facility] [address] [address]Dr. Cortez Younger Platelet mean volume (Bld) [Entitic vol] 8.8 fL Critically low 9.5-13.5 [facility] Comment on above: Performed By: #### C BC ####[facility] [address] [address]Dr. Cortez Younger PLT 371 103/ul Normal 150-450 [facility] Comment on above: Performed By: #### C BC ####[facility] [address] [id number]. Eleanorvalerie Younger RBC 4.91 106/ul Normal 4.70-6.10 [facility] Comment on above: Performed By: #### C BC ####[facility] [address] [id number]. Cortez Younger WBC 9.8 103/ul Normal 4.0-11.0 [facility] Comment on above: Performed By: #### C BC ####[facility] [address] [address]Dr. Cortez Younger CRPon 10-07-2022 CRP [Mass/Vol] mg/L Normal <=1.0 [facility] Comment on above: Performed By: #### L IPA, TSH, CRP, CMP ####[facility] [address] [id number]. Cortez Younger ER URINE PROFILEon 3 Bilirubin Ql (U) Negative Normal NEGATIVE [facility] Comment on above: Performed By: #### E RUR #### [facility] [address] [address] [address] Cortez Younger Clarity (U) CLEAR Normal CLEAR [facility] Comment on above: Performed By: #### E RUR #### [facility] [address] [address] [address] Cortez Younger Color (U) LT. YELLOW Normal YELLOW [facility] Comment on above: Performed By: #### E RUR #### [facility] [address] [place] [address] Dr. Cortez Younger ERUAHD A micrscopic examina tion will be performed if indicated. Normal [facility] Comment on above: Performed By: #### E RUR #### [facility] [address] [place] [address] Dr. Cortez Younger Glucose Ql (U) Negative Normal NEGATIVE [facility] Comment on above: Performed By: #### E RUR #### [facility] [address] [place] [address] Dr. Cortez Younger Hemoglobin Ql (U) Negative Normal NEGATIVE [facility] Comment on above: Performed By: #### E RUR #### [facility] [address] [address] [address] Cortez Younger Ketones Ql (U) Negative Normal NEGATIVE [facility] Comment on above: Performed By: #### E RUR #### [facility] [address] [place] [address] Dr. Cortez Younger LEUKOCYTES Negative Normal NEGATIVE [facility] Comment on above: Performed By: #### E RUR #### [facility] [address] [place] [address] Dr. Cortez Younger Nitrite Ql (U) Negative Normal NEGATIVE [facility] Comment on above: Performed By: #### E RUR #### [facility] [address] [place] [address] Dr. Cortez Younger pH (U) 7.5 [pH] Normal 5-9 [facility] Comment on above: Performed By: #### E RUR #### [facility] [address] [place] [address] Dr. Cortez Younger SPEC GRAVITY <=1.005 Abnormal 1.005-<=1.025 [facility] Comment on above: Performed By: #### E RUR #### [facility] [address] [place] [address] Dr. Cortez Younger UA PROTEIN Negative Normal NEGATIVE/ TRACE [facility] Comment on above: Performed By: #### E RUR #### [facility] [address] [place] [address] Dr. Cortez Younger UR MICRO IND NOT INDICATED Normal [facility] Comment on above: Performed By: #### E RUR #### [facility] [address] [place] [address] Dr. Cortez Younger Urobilinogen Qn (U) 0.2 {Fidelia'U}/dL Normal 0.2 - 1. 0 [facility] Comment on above: Performed By: #### E RUR #### [facility] [address] [place] [address] Dr. Cortez Younger LACTATE/LACTIC ACIDon 2022 Lactate [Moles/Vol] 1.0 mmol/L Normal 0.4-2.0 [facility] Comment on above: Performed By: #### E RUR #### [facility] [address] [address] [address] Cortez Younger LIPASEon 10-07-2022 Lipase [Catalytic activity/Vol] 84.0 U/L Normal 73.0-393.0 [facility] Comment on above: Performed By: #### L IPA, TSH, CRP, CMP ####[facility] [address] [address]Dr. Cortez Younger PROF 14(COMP METB)on 023 Albumin [Mass/Vol] 3.9 g/dL Normal 3.4-5.0 [facility] Comment on above: Performed By: #### L IPA, TSH, CRP, CMP ####[facility] [address] [address]DrFish Younger Albumin/Globulin [Mass ratio] 1.7 {ratio} Normal [facility] Comment on above: Performed By: #### L IPA, TSH, CRP, CMP ####[facility] [address] [address]Dr. Cortez Younger ALP [Catalytic activity/Vol] 78 U/L Normal 46-116 [facility] Comment on above: Performed By: #### L IPA, TSH, CRP, CMP ####[facility] [address] [address]Dr. Cortez Younger ALT [Catalytic activity/Vol] 28 U/L Normal 16-63 [facility] Comment on above: Performed By: #### L IPA, TSH, CRP, CMP ####[facility] [address] [address]Dr. Cortez Younger Anion gap [Moles/Vol] 12.1 mmol/L Normal [facility] Comment on above: Performed By: #### L IPA, TSH, CRP, CMP ####[facility] [address] [address]Dr. Cortez Younger AST [Catalytic activity/Vol] 15 U/L Normal 15-37 [facility] Comment on above: Performed By: #### L IPA, TSH, CRP, CMP ####[facility] [address] [place], [place] [address]Dr. Cortez Younger Bilirubin [Mass/Vol] 0.5 mg/dL Normal 0.2-1.0 [facility] Comment on above: Performed By: #### L IPA, TSH, CRP, CMP ####[facility] [address] [place], [place] [address]Dr. Cortez Younger Calcium [Mass/Vol] 8.6 mg/dL Normal 8.5-10.1 [facility] Comment on above: Performed By: #### L IPA, TSH, CRP, CMP ####[facility] [address] [place], [place] [address]Dr. Cortez Younger Chloride [Moles/Vol] 100 mmol/L Normal 98-107 [facility] Comment on above: Performed By: #### L IPA, TSH, CRP, CMP ####[facility] [address] [place], [place] [address]Dr. Cortez Younger CO2 [Moles/Vol] 28.8 mmol/L Normal 21.0-32.0 [facility] Comment on above: Performed By: #### L IPA, TSH, CRP, CMP ####[facility] [address] [place], [place] [address]Dr. Cortez Younger Creatinine [Mass/Vol] 0.70 mg/dL Normal 0.70-1.30 [facility] Comment on above: Performed By: #### L IPA, TSH, CRP, CMP ####[facility] [address] [address]Dr. Cortez Younger EGFR-AF MAURITIAN >60 Normal >=60 [facility] Comment on above: Performed By: #### L IPA, TSH, CRP, CMP ####[facility] [address] [address]Dr. Cortez Younger EGFR-NON AF MAURITIAN >60 Normal >=60 [facility] Comment on above: Performed By: #### L IPA, TSH, CRP, CMP ####[facility] [address] [address]Dr. Cortez Younger Globulin (S) [Mass/Vol] 2.3 g/dL Normal [facility] Comment on above: Performed By: #### L IPA, TSH, CRP, CMP ####[facility] [address] [address]Dr. Cortez Younger Glucose [Mass/Vol] 111 mg/dL Critically high 74-106 [facility] Comment on above: Performed By: #### L IPA, TSH, CRP, CMP ####[facility] [address] [place], [place] [address]Dr. Cortez Younger Potassium [Moles/Vol] 3.9 mmol/L Normal 3.5-5.1 [facility] Comment on above: Performed By: #### L IPA, TSH, CRP, CMP ####[facility] [address] [address]Dr. Cortez Younger Protein [Mass/Vol] 6.2 g/dL Critically low 6.4-8.2 [facility] Comment on above: Performed By: #### L IPA, TSH, CRP, CMP ####[facility] [address] [address]Dr. Cortez Younger Sodium [Moles/Vol] 137 mmol/L Normal 136-145 [facility] Comment on above: Performed By: #### L IPA, TSH, CRP, CMP ####[facility] [address] [address]Dr. Cortez Younger Urea nitrogen [Mass/Vol] 6.0 mg/dL Critically low 7.0-18.0 [facility] Comment on above: Performed By: #### L IPA, TSH, CRP, CMP ####[facility] [address] [place], [place] [address]Ro. Cortez Younger Urea nitrogen/Creatinine [Mass ratio] 8.6 mg/mg Normal [facility] Comment on above: Performed By: #### L IPA, TSH, CRP, CMP ####[facility] [address] [place], [place] [address]UvFish Younger [facility] SED RATE <1 Normal <=20 [facility] Comment on above: Performed By: #### C BC #### [facility] [address] [place], [place] [address] Dr. Cortez Younger TSHon 10-07-2022 TSH 1.031 uIU/mL Normal 0.358-3.740 [facility] Comment on above: Performed By: #### L IPA, TSH, CRP, CMP ####[facility] [address] [place], [place] [address]Ts. Cortez Younger [facility]on [facility]-13 SARS-CoV-2 (COVID-19) RNA AXEL+probe Ql (Unsp spec) Not detected Normal NOT DETECTED [facility] Comment on above: Result Comment: When [...] for this test is supported by the [place] of Health and Human Service's declaration that [...] used). Performed By: #### C BC #### [facility] [address] [address] [address] Cortez Younger INFLUENZA A AND B AGon 05-28 INFLUANE SEE BELOW Normal [facility] Comment on above: Result Comment: Nega tive for Flu A protein angiten. Infection due to Flu A cannot be ruled out. Flu A angiten in the sample may be below the detection limit of the test. Performed By: #### E RUR #### [facility] [address] [place] [address] Dr. Cortez Younger INFLUBNEG SEE BELOW Normal [facility] Comment on above: Result Comment: Nega tive for Flu B protein antigen. Infection due to Flu B cannot be ruled out. Flu B antigen in the sample may be below the detection limit of the test. Performed By: #### E RUR #### [facility] [address] [place] [address] Dr. Cortez Younger INFLUENZA A AG Negative Normal NEGATIVE SEE COMMENT [facility] Comment on above: Performed By: #### E RUR #### [facility] [address] [place] [address] Dr. Cortez Younger INFLUENZA B AG Negative Normal NEGATIVE SEE COMMENT [facility] Comment on above: Performed By: #### E RUR #### [facility] [address] [place] [address] Dr. Cortez Younger INTERNAL CONTROLS Within Normal Limits Normal Wi thin Normal Limits [facility] Comment on above: Performed By: #### E RUR #### [facility] [address] [place] [address] Dr. Cortez Younger XR CHEST 1 Von [...] KAIA SHEIKH Date: 2022-05-28 13:36 Normal [facility] PROF 14(COMP METB)on 022 Albumin [Mass/Vol] 3.9 g/dL Normal 3.4-5.0 [facility] Comment on above: Performed By: #### C MP #### [facility] [address] [place] [address] Dr. Cortez Younger Albumin/Globulin [Mass ratio] 1.4 {ratio} Normal [facility] Comment on above: Performed By: #### C MP #### [facility] [address] [address] [address] Cortez Younger ALP [Catalytic activity/Vol] 81 U/L Normal 46-116 [facility] Comment on above: Performed By: #### C MP #### [facility] [address] [place] [address] Dr. Cortez Younger ALT [Catalytic activity/Vol] 19 U/L Normal 16-63 [facility] Comment on above: Performed By: #### C MP #### [facility] [address] [place] [address] Dr. Cortez Younger Anion gap [Moles/Vol] 12.3 mmol/L Normal [facility] Comment on above: Performed By: #### C MP #### [facility] [address] [place] [address] Dr. Cortez Younger AST [Catalytic activity/Vol] 15 U/L Normal 15-37 [facility] Comment on above: Performed By: #### C MP #### [facility] [address] [place] [address] Dr. Cortez Younger Bilirubin [Mass/Vol] 0.3 mg/dL Normal 0.2-1.0 [facility] Comment on above: Performed By: #### C MP #### [facility] [address] [place] [address] Dr. Cortez Younger Calcium [Mass/Vol] 8.6 mg/dL Normal 8.5-10.1 [facility] Comment on above: Performed By: #### C MP #### [facility] [address] [place] [address] Dr. Cortez Younger Chloride [Moles/Vol] 101 mmol/L Normal 98-107 [facility] Comment on above: Performed By: #### C MP #### [facility] [address] [address] [address] Cortez Younger CO2 [Moles/Vol] 30.6 mmol/L Normal 21.0-32.0 [facility] Comment on above: Performed By: #### C MP #### [facility] [address] [address] [address] Cortez Younger Creatinine [Mass/Vol] 0.75 mg/dL Normal 0.70-1.30 [facility] Comment on above: Performed By: #### C MP #### [facility] [address] [place] [address] Dr. Cortez Younger EGFR-AF MAURITIAN >60 Normal >=60 [facility] Comment on above: Performed By: #### C MP #### [facility] [address] [place] [address] Dr. Cortez Younger EGFR-NON AF MAURITIAN >60 Normal >=60 [facility] Comment on above: Performed By: #### C MP #### [facility] [address] [place] [address] Dr. Cortez Younger Globulin (S) [Mass/Vol] 2.8 g/dL Normal [facility] Comment on above: Performed By: #### C MP #### [facility] [address] [place] [address] Dr. Cortez Younger Glucose [Mass/Vol] 98 mg/dL Normal 74-106 [facility] Comment on above: Performed By: #### C MP #### [facility] [address] [place] [address] Dr. Cortez Younger Potassium [Moles/Vol] 3.9 mmol/L Normal 3.5-5.1 [facility] Comment on above: Performed By: #### C MP #### [facility] [address] [place] [address] Dr. Cortez Younger Protein [Mass/Vol] 6.7 g/dL Normal 6.4-8.2 [facility] Comment on above: Performed By: #### C MP #### [facility] [address] [place] [address] Dr. Cortez Younger Sodium [Moles/Vol] 140 mmol/L Normal 136-145 [facility] Comment on above: Performed By: #### C MP #### [facility] [address] [place] [address] Dr. Cortez Younger Urea nitrogen [Mass/Vol] 5.0 mg/dL Critically low 7.0-18.0 [facility] Comment on above: Performed By: #### C MP #### [facility] [address] [place] [address] Dr. Cortez Younger Urea nitrogen/Creatinine [Mass ratio] 6.7 mg/mg Normal [facility] Comment on above: Performed By: #### C MP #### [facility] [address] [place] [address] Dr. Cortez Younger CBC AUTO DIFFon 01-18-2022 BASO # 0.0 103/ul Normal 0.0-0.1 [facility] Comment on above: Performed By: #### C BC #### [facility] [address] [place] [address] Dr. Cortez Younger Basophils/100 WBC (Bld) 0.1 % Critically low 0.2-2.0 [facility] Comment on above: Performed By: #### C BC #### [facility] [address] [place] [address] Dr. Coretz Younger EO # 0.0 103/ul Normal 0.0-0.7 [facility] Comment on above: Performed By: #### C BC #### [facility] [address] [place] [address] Dr. Cortez Younger Eosinophils/100 WBC (Bld) 0.0 % Critically low 0.9-7.0 [facility] Comment on above: Performed By: #### C BC #### [facility] [address] [place] [address] Dr. Cortez Younger Erythrocyte distribution width (RBC) [Ratio] 12.8 % Normal 11.0-15.0 [facility] Comment on above: Performed By: #### C BC #### [facility] [address] [place] [address] Dr. Cortez Younger Hematocrit (Bld) [Volume fraction] 42.7 % Normal 42.0-54.0 [facility] Comment on above: Performed By: #### C BC #### [facility] [address] [place] [address] Dr. Cortez Younger Hemoglobin (Bld) [Mass/Vol] 15.3 g/dL Normal 14.0-18.0 [facility] Comment on above: Performed By: #### C BC #### [facility] [address] [place] [address] Dr. Cortez Younger IG # 0.10 10e3/ul Critically high 0.00-0.03 [facility] Comment on above: Performed By: #### C BC #### [facility] [address] [place] [address] Dr. Cortez Younger IG % 0.7 % Critically high 0.0-0.5 [facility] Comment on above: Performed By: #### C BC #### [facility] [address] [place] [address] Dr. Cortez Younger LYMPH # 1.9 103/ul Normal 1.2-3.8 [facility] Comment on above: Performed By: #### C BC #### [facility] [address] [place] [address] Dr. Cortez Younger Lymphocytes/100 WBC (Bld) 13.5 % Critically low 20.5-60.0 [facility] Comment on above: Performed By: #### C BC #### [facility] [address] [place] [address] Dr. Cortez Younger MANUAL DIFF REQ NO Normal [facility] Comment on above: Performed By: #### C BC #### [facility] [address] [place] [address] Dr. Cortez Younger MCH (RBC) [Entitic mass] 31.4 pg Normal 25.9-34.0 [facility] Comment on above: Performed By: #### C BC #### [facility] [address] [place] [address] Dr. Cortez Younger MCHC (RBC) [Mass/Vol] 35.8 g/dL Critically high 29.9-35.2 [facility] Comment on above: Performed By: #### C BC #### [facility] [address] [address] [address] Cortez Younger MCV (RBC) [Entitic vol] 87.5 fL Normal 80.0-94.0 [facility] Comment on above: Performed By: #### C BC #### [facility] [address] [address] [address] Cortez Younger MONO # 0.8 103/ul Normal 0.3-0.8 [facility] Comment on above: Performed By: #### C BC #### [facility] [address] [place] [address] Dr. Cortez Younger Monocytes/100 WBC (Bld) 5.6 % Normal 1.7-12.0 [facility] Comment on above: Performed By: #### C BC #### [facility] [address] [place] [address] Dr. Cortez Younger NEUT # 11.4 103/ul Critically high 1.4-6.5 [facility] Comment on above: Performed By: #### C BC #### [facility] [address] [place] [address] Dr. Cortez Younger Neutrophils/100 WBC (Bld) 80.1 % Critically high 43.0-75.0 [facility] Comment on above: Performed By: #### C BC #### [facility] [address] [place] [address] Dr. Cortez Younger Platelet mean volume (Bld) [Entitic vol] 8.4 fL Critically low 9.5-13.5 [facility] Comment on above: Performed By: #### C BC #### [facility] [address] [place] [address] Dr. Cortez Younger PLT 352 103/ul Normal 150-450 [facility] Comment on above: Performed By: #### C BC #### [facility] [address] [place] [address] Dr. Cortez Younger RBC 4.88 106/ul Normal 4.70-6.10 [facility] Comment on above: Performed By: #### C BC #### [facility] [address] [place] [address] Dr. Cortez Younger WBC 14.2 103/ul Critically high 4.0-11.0 [facility] Comment on above: Performed By: #### C BC #### [facility] [address] [place] [address] Dr. Cortez Younger PROF 14(COMP METB)on 022 Albumin [Mass/Vol] 4.1 g/dL Normal 3.4-5.0 [facility] Comment on above: Performed By: #### C MP #### [facility] [address] [place] [address] Dr. Cortez Younger Albumin/Globulin [Mass ratio] 1.5 {ratio} Normal [facility] Comment on above: Performed By: #### C MP #### [facility] [address] [place] [address] Dr. Cortez Younger ALP [Catalytic activity/Vol] 77 U/L Normal 46-116 [facility] Comment on above: Performed By: #### C MP #### [facility] [address] [place] [address] Dr. Cortez Younger ALT [Catalytic activity/Vol] 19 U/L Normal 16-63 [facility] Comment on above: Performed By: #### C MP #### [facility] [address] [place] [address] Dr. Cotrez Younger Anion gap [Moles/Vol] 10.6 mmol/L Normal [facility] Comment on above: Performed By: #### C MP #### [facility] [address] [place] [address] Dr. Cortez Younger AST [Catalytic activity/Vol] 8 U/L Critically low 15-37 [facility] Comment on above: Performed By: #### C MP #### [facility] [address] [place] [address] Dr. Cortez Younger Bilirubin [Mass/Vol] 0.3 mg/dL Normal 0.2-1.0 [facility] Comment on above: Performed By: #### C MP #### [facility] [address] [address] [address] Cortez Younger Calcium [Mass/Vol] 8.9 mg/dL Normal 8.5-10.1 [facility] Comment on above: Performed By: #### C MP #### [facility] [address] [address] [address] Cortez Younger Chloride [Moles/Vol] 91 mmol/L Critically low 98-107 [facility] Comment on above: Performed By: #### C MP #### [facility] [address] [address] [address] Cortez Younger CO2 [Moles/Vol] 30.1 mmol/L Normal 21.0-32.0 [facility] Comment on above: Performed By: #### C MP #### [facility] [address] [place] [address] Dr. Cortez Younger Creatinine [Mass/Vol] 0.88 mg/dL Normal 0.70-1.30 [facility] Comment on above: Performed By: #### C MP #### [facility] [address] [place] [address] Dr. Cortez Younger EGFR-AF MAURITIAN >60 Normal >=60 [facility] Comment on above: Performed By: #### C MP #### [facility] [address] [address] [address] Cortez Younger EGFR-NON AF MAURITIAN >60 Normal >=60 [facility] Comment on above: Performed By: #### C MP #### [facility] [address] [place] [address] Dr. Crotez Younger Globulin (S) [Mass/Vol] 2.8 g/dL Normal [facility] Comment on above: Performed By: #### C MP #### [facility] [address] [address] [address] Cortez Younger Glucose [Mass/Vol] 112 mg/dL Critically high 74-106 [facility] Comment on above: Performed By: #### C MP #### [facility] [address] [address] [address] Cortez Younger Potassium [Moles/Vol] 3.7 mmol/L Normal 3.5-5.1 [facility] Comment on above: Performed By: #### C MP #### [facility] [address] [address] [address] Cortez Younger Protein [Mass/Vol] 6.9 g/dL Normal 6.4-8.2 [facility] Comment on above: Performed By: #### C MP #### [facility] [address] [address] [address] Cortez Younger Sodium [Moles/Vol] 128 mmol/L Critically low 136-145 [facility] Comment on above: Performed By: #### C MP #### [facility] [address] [address] [address] Cortez Younger Urea nitrogen [Mass/Vol] 9.0 mg/dL Normal 7.0-18.0 [facility] Comment on above: Performed By: #### C MP #### [facility] [address] [address] [address] Cortez Younger Urea nitrogen/Creatinine [Mass ratio] 10.2 mg/mg Normal [facility] Comment on above: Performed By: #### C MP #### [facility] [address] [address] [address] Cortez Younger SED RATE [facility] 2021 SED RATE <1 Normal <=20 [facility] Comment on above: Performed By: #### S EDR ####[facility] [address] [address] Cortez Younger UA RANDOMon 01-18-2022 Bilirubin Ql (U) Negative Normal NEGATIVE [facility] Comment on above: Performed By: #### E RUR #### [facility] [address] [address] [address] Cortez Younger Clarity (U) CLEAR Normal CLEAR [facility] Comment on above: Performed By: #### E RUR #### [facility] [address] [address] [address] Cortez Younger Color (U) LT. YELLOW Normal YELLOW [facility] Comment on above: Performed By: #### E RUR #### [facility] [address] [place] [address] Dr. Cortez Younger Glucose Ql (U) Negative Normal NEGATIVE [facility] Comment on above: Performed By: #### E RUR #### [facility] [address] [place] [address] Dr. Cortez Younger Hemoglobin Ql (U) TRACE-LYSED Abnormal NEGATIVE [facility] Comment on above: Performed By: #### E RUR #### [facility] [address] [place] [address] Dr. Cortez Younger Ketones Ql (U) Negative Normal NEGATIVE [facility] Comment on above: Performed By: #### E RUR #### [facility] [address] [place] [address] Dr. Cortez Younger LEUKOCYTES TRACE Abnormal NEGATIVE [facility] Comment on above: Performed By: #### E RUR #### [facility] [address] [place] [address] Dr. Cortez Younger Nitrite Ql (U) Negative Normal NEGATIVE [facility] Comment on above: Performed By: #### E RUR #### [facility] [address] [place] [address] Dr. Cortez Younger pH (U) 6.5 [pH] Normal 5-9 [facility] Comment on above: Performed By: #### E RUR #### [facility] [address] [place] [address] Dr. Cortez Younger SPEC GRAVITY <=1.005 Abnormal 1.005-<=1.025 [facility] Comment on above: Performed By: #### E RUR #### [facility] [address] [place] [address] Dr. Cortez Younger UA PROTEIN Negative Normal NEGATIVE/ TRACE [facility] Comment on above: Performed By: #### E RUR #### [facility] [address] [place] [address] Dr. Cortez Younger Urobilinogen Qn (U) 0.2 {Fidelia'U}/dL Normal 0.2 - 1. 0 [facility] Comment on above: Performed By: #### E RUR #### [facility] [address] [place] [address] Dr. Cortez Younger MRI CSPINE WO W [...] VERN LU Date: 2022-01-17 16:24 Normal [facility] MRI TSPINE WO W CONon 2021 [...] VERN LU Date: 2022-01-17 16:29 Normal [facility] MRI BRAIN WO W CONon 2 022 MRI BRAIN WO W CON EXAMINATION: [...] by: VERN LU Date: 2022-01-03 08:03 Normal [facility] Patient Educationon 12-25-19 [...] including vitamins, herbs, eye drops, creams, and [id number] medicines. This also includes: ? Medicines to [...] 08/01/2005 Document Revised: 06/11/2018 Document Reviewed: 04/05/2018 [employer] Patient Education ? 2019 [employer] [facility] Urology Office/Clinic Noteon 12-24-2021 Urology Office/Clinic Note [...] Urnls Dip Stick Auto w/o Microscopy POC 65487 3. Elevated PSA (R97.20: Elevated prostate specific antigen [PSA]) Most recent PSA done 08/13/21 5.24 Ordered: Urnls Dip Stick Auto w/o Microscopy POC 99965 Other obstructive and reflux uropathy (N13.8: Other obstructive and reflux uropathy) Follow-up With When Contact Information Star Manley MD, Gustavo Orlando, URO In 6 months [facility] [address], [place] [address]- Additional Instructions: w/ PVR Patient Education Prostate-Specific [...] tab(s), Or (more content not included)... Normal [facility] Comment on above: Result Comment: Elec tronically Signed By: Star Manley MD, Gustavo Orlando\.br\Date and Time Signed: 12/24/21 10:52 EDT\.br\Electronically Co-Signed By: Lynda Ortega\.br\Date and Time Co-Signed: 12/24/21 10:47 EDT Lab Reportson 12-16-2021 Lab Reports [id number]: 127 Normal [facility] Lab Reports [id number]: 127 Normal [facility] CULTURE URINEon 12-12-2021 CULTURE URINE Culture Observations : No growth Normal [facility] Comment on above: Performed By: #### U RCX ####[facility] [address] [address]DrFish Cortez Younger UA RANDOMon 12-12-2021 Bilirubin Ql (U) Negative Normal NEGATIVE [facility] Comment on above: Performed By: #### U A #### [facility] [address] [address] [address] Cortez Younger Clarity (U) CLEAR Normal CLEAR [facility] Comment on above: Performed By: #### U A #### [facility] [address] [address] [address] Cortez Younger Color (U) LT. YELLOW Normal YELLOW [facility] Comment on above: Performed By: #### U A #### [facility] [address] [address] [address] Cortez Younger Glucose Ql (U) Negative Normal NEGATIVE [facility] Comment on above: Performed By: #### U A #### [facility] [address] [address] [address] Cortez Younger Hemoglobin Ql (U) LARGE Abnormal NEGATIVE [facility] Comment on above: Performed By: #### U A #### [facility] [address] [place] [address] Dr. Cortez Younger Ketones Ql (U) Negative Normal NEGATIVE [facility] Comment on above: Performed By: #### U A #### [facility] [address] [place] [address] Dr. Cortez Younger LEUKOCYTES Negative Normal NEGATIVE [facility] Comment on above: Performed By: #### U A #### [facility] [address] [place] [address] Dr. Cortez Younger Nitrite Ql (U) Negative Normal NEGATIVE [facility] Comment on above: Performed By: #### U A #### [facility] [address] [place] [address] Dr. Cortez Younger pH (U) 7.0 [pH] Normal 5-9 [facility] Comment on above: Performed By: #### U A #### [facility] [address] [address] [address] Cortez Younger SPEC GRAVITY 1.010 Normal 1.005-<=1.025 [facility] Comment on above: Performed By: #### U A #### [facility] [address] [address] [address] Cortez Younger UA PROTEIN Negative Normal NEGATIVE/ TRACE [facility] Comment on above: Performed By: #### U A #### [facility] [address] [place], [place] [address] Dr. Cortez Younger Urobilinogen Qn (U) 0.2 {Fidelia'U}/dL Normal 0.2 - 1. 0 [facility] Comment on above: Performed By: #### U A #### [facility] [address] [place], [place] [address] Dr. Cortez Younger Coding Summary.on 12-06-2021 Coding Summary. CD:[id number] Gh0b Ww+PGhlYWQ+PZ5CEIIvT20iu SZhcO8SK7pCRJ9KKVXZALHSN V4YWG5miZR5TBdrR2UqrnQe FkvytRDrBK28IGj4BIG6hPcj WEljkZ3crBIsC9r0KdZuMI90 sN91VUbaHCVzVrZ7QiCrkyns bWFy C8xiXtUtrWGmGay+PHRhYmxl IHdpZHRoPScxMDAlJyBzdHls HP3nGn3jOBKsZALflLnlaUXu OiBj a9wgUXJzRKnzEK0dkPaiE3Bh oMY5HOToe3u3Hv42jNM+PHRk MFJ6lLxzHZnew265NdTcd7hl IDM3 jNUmGYhtPSW3Z53mu6T2KIQx ZPOrCQS9kKP4pB9kzFpthmkp L6OtqCDfWtE1JAL2pJShjV2x bGln qmfukH3nYrp+Z60INL9LWAWS JV5XAst9C7UpBlpddHZ+PC90 PULjFC84wVMfnKZrj6wufHj6 JzEw OOYcLCM4cHamSVowm1GsGMCn O56ywMClh4S3FNVcoLjrcQIi IzLhcWF6bT8vBWbguokjz9nu dzsn Nupae2wapi01wI40Q31vDOtz KUOtSYB4IWRcWFSglUxpoj2c aG8oFd8+RTrfz2ldg6dgrJq6 IjIw RLSwxfLgfJvfZRH2w4NaBc18 Z2SacYoil1SuLpi4zw94bEDm s3D3xGA8AZmxDIXbqU7gVLoz ZnQ6 PPVnFhUpxT15xTVvEKmbYh9t cXqczKcyUM4nEQYxfnagUNBu eX7yDLLblTOqcVecLL8nUPTf bjtm e565ZnChFTC5UBUknRJlR8Vd qX3lBgItKGCxFKTpP3ZtgHZt IFgrQ310DIikOpU8AJEysnLz Y2Fs IGNuhEsjNnU5h9O4Eo8Yq1Uo rzsbDXR3CBtpNTK0HrE9VyAg CiH4Q1HfHgt9IFApsAtjEU6s J3Bh HUEukxmvbdhenDM9VYWhGFOz bM94nZPvAPcaIp9mn8L8k441 GVAfDKWusR78Pf8wyDyzCNGf dCBU rE5sxgyfg4jakaydGyAwRUAl YFl1IFu9YCQccWceWxTgBRY9 WlN7XCS1qORzuW3ikPtujhju dG9w Oyc+J84yeX9iWAL1SEO2rkbi HESmecGfVI23KV92V5RwLwse dGFibGU+BOHefbMirNgfKJ6u YmFj e8kml8GkQGrnP7WaRJThKXul Nmt2KFPmQUU4tKZ5mG5pKMYo EGrus7H4wZI7F1WtvbCdty3v b2xs MZCiDEaoZ48ruOTad2P9IYUe kQS3QVUuePiaCxAqgL49Yqo+ KEUytKgge1NwYtywr5yri2vv dGg9 WuNqOZRnggZijUovALQ5p8Ei Ko71U89wMJpiMLWyEHWxBNNz SQSzsIslcq2dxB8mFy2+PGNv bCB3 fYC0lB5zXQZyYcW6KIszE827 HsBkeGGtZizvu6vau2momYk2 VdUfAUTxwgEthXzhWTX8n9Xd Lz48 Y97gDOgaXRFvERFmTMFoIIBb mBecjf2adD2vCv0+LV8fu6eb ii21lZ87sKS+FPDdOPG7oTdz PSdw YGKxaE3hNYbfLtX2LTFrHfQn uF54cILiCAfbOz1hwKkhlCsg AC4bZBTmybqkc259CgRve6oa IDEw jDPsKMgmNMF6L16gv4W4EELt FWKrUMC5dSQ5dA3cmEwbgupi bGVmdDsgdmVydGljYWwtYWxp Z246 IHRvcDsnPlBhdGllbnQgTmFt AUk0O7ExFxl3MRNljKkwFF4k bQZsDMwaTw0vuOcokAljVY6y NTBp yovou217OqWzz7xwQNLytQJk ZKkoHHR1Y25sq8Q7YYDfFWZu KXX3dAS8wW0ciYhzlqtusBMz dDsg ohPntSypMGxjIYusK488NXWk iUpuXqVtnrCxTREazZN7VP60 CR65qJVbq9P2jGA8B6HzFELa bmct hqivwOU3EPGdICUoyM79Pm1e eRzhZc4rRIIxKKF3SFSsxFTu A9GpiA8wZkHjQMCnADDyW8Zx eHQt TClcW680WBcmQnD8HNTnsrSv J7NuKGTxpWxeUrS3f0E7Pp8E U3J9OH95WK42zTFky0L8oHY2 J3Bh ZDXdmmfxbhmjsUK7PSJdNBCn mP97Xu1dxGedGk4oHNTaHPK5 GEUkrIExU1RodK2jAxFlFTQa MDAw T8NypCAvAMiyS755SSbmOrN7 JKVdhnYyJ4XiXPOmqYcfXlD9 j3Y1Su3HVUp8FZ04ZO88qJBs c3R5 tPU9P1AoZTZtjdfistlyhHO3 JSYvSDEtsH60En2gpXyfIx4i ERYpONS3SEXudWLmL6XukS5p OiAj HSNcABIpW0AuxZOgBHgzE177 HNagRnF9YOWaxwXeR3AmCVMq gLxfPvK2i8U0Vb0KGDFqSF94 IFR5 qGX5TA63CA78C2PvMsbvpEDf bGU+PHRhYmxlIHdpZHRoPScx GMAjPaWpqLpiUY0xDz8vBRTw LWNv cCyklBVnIiRnc1vnGJKaRBag FD0ihEotZ0ZkeQN5QWIpp9y7 Rg93C05iT5WocCC+PGNvbCB3 aWR0 bZ3vTvOeOrB1ERezM140UhAe aQSwTmesj9riz5amqZn2LpM2 WBSgqdKjoVhkEMH5d2LrTn59 Y29s IHdpZHRoPSIxNSUiIHZhbGln ap6kzF8uBb5+FLWjoVF9jAK8 tQ3lFkNpLbB0RVurE642MnJr cCIv Nvbcm0hcv0ovvKf6ViDsZUZq zoOphVnaFRT1k6MqYo09I9Th jQlfi4ZqNfb7hu98qHFid3J8 bGU9 G4LdVUFnhcslbJGgwTssAJ7j ADTsktusCQQsoH8oQNNeB9s3 YzUoDvB8XDihY7WhguS6ODBv cHQg CTswQIW4R54xc5V4KLTzGERe VEH2pDT9bV6llCpqauaxsZVq wSywapSqyCieKKveTTzjF592 IHRv xJuhEOAyiO4fDCQprITfhWlc ZJ7tCOXnazdwAfSUUsFDJ4cL VYvdO0UEDL8vHHiitJT+PHRk IHN0 lSrdMKbrRKEeyJ9uIDGpG0z4 XsXiImZ9DQxvK3NlKBNifehs Xi75sJ1dBuSlPkZ9HLkjK2Qr bnQ6 LORdcUGeTZgcARF7F12dw1J2 TROuIYPhVFB0cIR4xM1geKmp bjogbGVmdDsgdmVydGljYWwt YWxp F612LMTlaOouWsH1QhStJcD5 Rzw4M0FoGxg7DGPfaIqgJZ1n vVWmVAhpZg3haLzzrErkCT8h NTBp ucflOPEzkH6nHBPdkQRbnIoy NO8kBNPepjajs314UmCsOQD7 GLYscFFyQ1QjkI9zOcVhNCHp MDAw C0SfvDUqWYabC482QKvjPwP8 CIAakjMcJ9LrIHShvCxbKqS5 u5E1Hb82YuPVLMLenkritDV+ PHRk GSS4gGcgCItxRNZseE7wQFMp A2s8WxUxSsL1OBoxB0HfHXKi oqsxUd35zF2tJhQqCcG1RFuo O2Zv bvQ1GFOvuIHgDNhnBJQ6L97g e6F5JVLkJNGsBTK1zRK8yX7a bGlnbjogbGVmdDsgdmVydGlj YWwt QExsC543BWDpdWddOb7scZS4 P4BqOry5IDSxvXltUY4meHCy WNzbKe6daDojvVifXH1hNPHt bjtw HRRkgQ9wFOLaeZQgbPtsHZ6o MJRfiebpd919BuKcZXY2SFOq tLRoG1VtxB6pJfOfGDIdZZBd O3Rl gNDuAHbxY442VAisTgN8INFx sfFoM7JiPJGeyWucBkA2z7D0 Hg2IrEWqWORkIJ03EL09CV45 L3Ry PjwvdGFibGU+PHRhYmxlIHdp IHOlRTrhPSKvVbHnjQrcHJ2h Qe0yPQQvDGLmdIdldFRfLpCb b2xs QWUfGRxqPZ5caEdvL2IzuDW5 VROob6a9Ky90F22aS9PkqBK+ AGMspYL5rBA8zL8iTtRpPrB3 YWxp N854DpNoaEGsPmbib1lcb9th nNk6PsNhXCTaykSduRnuQHZ3 d8SaJb12P76kFXouZOUsLNFa MCUi MWVkdMreae3aoV4wIj0+PGNv gGC8cNQ0tK9pElDwAyW4QZlw D430PtTmzLRsKwczD72hQ1Sk dXA+ UTEyGzm5XFQmsQabHI8mgHLq PGcwCc0hCWA6AqXxAhFpWYin Q8JsGXDazrgvavrggJV8BHPj MDUw vT00Jf6jaJlfLh2wFGCdVEG4 SWUsmJKlF2OgbY9oCySqKUKe YICnT2WxrUJtDUnsH247UWzg ZnQ7 FPDjuwPiU3KsKXKshKyuOvN3 d2S3Ov4NrXtzyZUaEW5aUvHq JRs3R7VpQem9BYJasQwpHE0n cGFk SFvqTn4guBiooSmnMF1zEHSj uegjc404RjZhj6svGWUgnTZa WYbbQEH0C71xy5X6GMFtGFUy MDA7 wTU3lJ6roXgammhnzHBxyXzs cjGyhXkwDIijUDagM992WVXk rGkdMjPZNlf6L9ZwHdy9EWDd dHls XC1eoTPxPZflYy4feTnxzFty XV4cRBJtptfqo228ZbIoh7sn TMFvvCCtTMquFCF6M45dq5S1 ICMw GXAeXFD5eIJ1uM7hsYzufbfd bGVmdDsgdmVydGljYWwtYWxp C572KYCvyUfbJi6GOjl1A0Nb Pjx0 JKXyfHhtBW1vcBPqMFlmFj6r kPspcRldUS7qZZLlvynbu321 JmTjb2jxISFcaTEnBDtyUDQ4 Y29s v6S0EEBiYNYmGPD4bML1dR0s bGlnbjogbGVmdDsgdmVydGlj PXbyVHqvG954XHZnyRacPeIj eWVy OjwvdGQ+QH48xe88C4GiMpfp Fuu8MPDkCKE5zWC4hP2lZIHp PSzrx4Q4dYW2B0KeumAzce2x b2xs YXBz (more content not included)... [facility] Consent for Procedure/Surger yon 12-05-2021 Consent for Procedure/Surgery [id number]#1.00CD :127 [facility] Consent for Treatmenton 05-2 Consent for Treatment [id number]#1.00CD: 127 [facility] IntraOperative Documentson 0 12-05-2021 IntraOperative Documents [id number]#1.00CD :127 [facility] Main OR Intraoperative Recor don 12-05-2021 Main OR Intraoperative Record IntraOp Document Type FTURO Summary Primary Physician: Gustavo Graves Jr., MD Finalized Date/Time: 12/05/21 13:57:51 Pt. Name: HARISH MCKENNA/Sex: 1970 Male Med Rec #: [id number] Physician: Gustavo Graves Jr., MD Financial #: [id number] Pt. Type: O Room/Bed: / Admit/Disch: 12/05/21 11:48:14 - Institution: Case Times FTURO Entry 1 Patient Times In Room 12/05/21 13:23:00 Out Room 12/05/21 13:57:00 Procedure Times Start 12/05/21 13:40:00 Stop 12/05/21 13:53:00 Anesthesia Times Last Modified By: Veena Levin RN 12/05/21 13:57:47 Case Attendance FTURO Entry 1 Entry 2 Entry 3 Case Attendee Star Manley MD, Gustavo Sanders ELECTRICAL ASSEMBLER, Veena Brower ELECTRICAL ASSEMBLER, Ni Aguirre Role Performed Surgeon - Primary [...] Case Attendee Veena Levin RN Role Performed Financial Services Director - Primary Time In 12/05/21 13:23:00 Time [...] MD, Gustavo Orlando, Verified (If Medication Participants Marilyn TELLO, Veena Walters) Leonarda Aguirre CST, Julie A, Barbee RN, [...] Implant Implant Identification Description UROLIFT Lot Number [id number] 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 Normal [facility] Main OR Preoperative Recordo n 12-05-2021 Main OR Preoperative Record Holding Area Document Type FTURO Summary Primary Physician: Gustavo Graves Jr., MD Finalized Date/Time: 12/05/21 13:01:06 Pt. Name: HARISH MCKENNA Johanny Springer./Sex: 1970 Male Med Rec #: [id number] Physician: Gustavo Graves Jr., MD Financial #: [id number] Pt. Type: O Room/Bed: / Admit/Disch: 12/05/21 [...] 12:28 Veena Levin RN 12/05/21 13:01 Normal [facility] Operative Reporton Operative Report Patient: [...] procedure (10 mg diazepam, 5/325 mg of [place]), Local Anesthesia (60cc 2% Xylocaine liquid inserted [...] well and was subsequently discharged home. Normal [facility] Comment on above: Result Comment: Elec tronically Signed By: Star Manley MD, Gustavo Don.amanda\Date and Time Signed: 12/05/21 13:58 EDT CBC AUTO DIFFon 12-03-2021 BASO # 0.2 103/ul Critically high 0.0-0.1 [facility] Comment on above: Performed By: #### C BC ####[facility] [address] [place] [address]Dr. Cortez Younger Basophils/100 WBC (Bld) 1.3 % Normal 0.2-2.0 [facility] Comment on above: Performed By: #### C BC ####[facility] [address] [place] [id number]. Cortez Younger EO # 0.2 103/ul Normal 0.0-0.7 [facility] Comment on above: Performed By: #### C BC ####[facility] [address] [place] [id number] Younger Eosinophils/100 WBC (Bld) 1.8 % Normal 0.9-7.0 [facility] Comment on above: Performed By: #### C BC ####[facility] [address] [place] [id number] Younger Erythrocyte distribution width (RBC) [Ratio] 13.3 % Normal 11.0-15.0 [facility] Comment on above: Performed By: #### C BC ####[facility] [address] [place] [address]Dr. Eleanorvalerie Younger Hematocrit (Bld) [Volume fraction] 45.0 % Normal 42.0-54.0 [facility] Comment on above: Performed By: #### C BC ####[facility] [address] [place] [address]Dr. Cortez Younger Hemoglobin (Bld) [Mass/Vol] 15.6 g/dL Normal 14.0-18.0 [facility] Comment on above: Performed By: #### C BC ####[facility] [address] [place], [place] [address]Dr. Cortez Younger IG # 0.05 10e3/ul Critically high 0.00-0.03 [facility] Comment on above: Performed By: #### C BC ####[facility] [address] [place], [place] [address]Dr. Cortez Younger IG % 0.4 % Normal 0.0-0.5 [facility] Comment on above: Performed By: #### C BC ####[facility] [address] [place], [place] [address]Dr. Cortez Younger LYMPH # 1.8 103/ul Normal 1.2-3.8 [facility] Comment on above: Performed By: #### C BC ####[facility] [address] [place], [place] [address]Dr. Cortez Younger Lymphocytes/100 WBC (Bld) 15.2 % Critically low 20.5-60.0 [facility] Comment on above: Performed By: #### C BC ####[facility] [address] [place], [place] [address]Dr. Cortez Younger MANUAL DIFF REQ NO Normal [facility] Comment on above: Performed By: #### C BC ####[facility] [address] [place] [address]Dr. Cortez Younger MCH (RBC) [Entitic mass] 31.1 pg Normal 25.9-34.0 [facility] Comment on above: Performed By: #### C BC ####[facility] [address] [place] [address]Dr. Eleanorvalerie Aren MCHC (RBC) [Mass/Vol] 34.7 g/dL Normal 29.9-35.2 [facility] Comment on above: Performed By: #### C BC ####[facility] [address] [place] [address]Dr. Cortez Younger MCV (RBC) [Entitic vol] 89.8 fL Normal 80.0-94.0 [facility] Comment on above: Performed By: #### C BC ####[facility] [address] [place] [address]DrFish Younger MONO # 0.6 103/ul Normal 0.3-0.8 [facility] Comment on above: Performed By: #### C BC ####[facility] [address] [place] [address]Dr. Cortze Younger Monocytes/100 WBC (Bld) 5.3 % Normal 1.7-12.0 [facility] Comment on above: Performed By: #### C BC ####[facility] [address] [place], [place] [address]DrFish Younger NEUT # 8.9 103/ul Critically high 1.4-6.5 [facility] Comment on above: Performed By: #### C BC ####[facility] [address] [place], [place] [address]Dr. Cortez Younger Neutrophils/100 WBC (Bld) 76.0 % Critically high 43.0-75.0 [facility] Comment on above: Performed By: #### C BC ####[facility] [address] [place], [place] [address]DrFish Younger Platelet mean volume (Bld) [Entitic vol] 8.9 fL Critically low 9.5-13.5 [facility] Comment on above: Performed By: #### C BC ####[facility] [address] [place], [place] [address]Dr. Cortez Younger PLT 414 103/ul Normal 150-450 [facility] Comment on above: Performed By: #### C BC ####[facility] [address] [place] [id number] Younger RBC 5.01 106/ul Normal 4.70-6.10 [facility] Comment on above: Performed By: #### C BC ####[facility] [address] [place], [place] [address]AtFish Younger WBC 11.7 103/ul Critically high 4.0-11.0 [facility] Comment on above: Performed By: #### C BC ####[facility] [address] [place] [id number]. Cortez Younger PROF 14(COMP METB)on 022 Albumin [Mass/Vol] 3.8 g/dL Normal 3.4-5.0 [facility] Comment on above: Performed By: #### C BC #### [facility] [address] [address] [address] Cortez Younger Albumin/Globulin [Mass ratio] 1.3 {ratio} Normal [facility] Comment on above: Performed By: #### C BC #### [facility] [address] [address] [address] Cortez Yonuger ALP [Catalytic activity/Vol] 95 U/L Normal 46-116 [facility] Comment on above: Performed By: #### C BC #### [facility] [address] [address] [address] Cortez Younger ALT [Catalytic activity/Vol] 25 U/L Normal 16-63 [facility] Comment on above: Performed By: #### C BC #### [facility] [address] [address] [address] Cortez Younger Anion gap [Moles/Vol] 12.7 mmol/L Normal [facility] Comment on above: Performed By: #### C BC #### [facility] [address] [address] [address] Cortez Younger AST [Catalytic activity/Vol] 18 U/L Normal 15-37 [facility] Comment on above: Performed By: #### C BC #### [facility] [address] [address] [address] Cortez Younger Bilirubin [Mass/Vol] 0.3 mg/dL Normal 0.2-1.0 [facility] Comment on above: Performed By: #### C BC #### [facility] [address] [address] [address] Cortez Younger Calcium [Mass/Vol] mg/dL Normal 8.5-10.1 [facility] Comment on above: Performed By: #### C BC #### [facility] [address] [address] [address] Cortez Younger Chloride [Moles/Vol] 98 mmol/L Normal 98-107 [facility] Comment on above: Performed By: #### C BC #### [facility] [address] [place] [address] Dr. Cortez Younger CO2 [Moles/Vol] 28.9 mmol/L Normal 21.0-32.0 [facility] Comment on above: Performed By: #### C BC #### [facility] [address] [address] [address] Cortez Younger Creatinine [Mass/Vol] 0.84 mg/dL Normal 0.70-1.30 [facility] Comment on above: Performed By: #### C BC #### [facility] [address] [place] [address] Dr. Cortez Younger EGFR-AF MAURITIAN >60 Normal >=60 [facility] Comment on above: Performed By: #### C BC #### [facility] [address] [address] [address] Cortez Younger EGFR-NON AF MAURITIAN >60 Normal >=60 [facility] Comment on above: Performed By: #### C BC #### [facility] [address] [place] [address] Dr. Cortez Younger Globulin (S) [Mass/Vol] 3.0 g/dL Normal [facility] Comment on above: Performed By: #### C BC #### [facility] [address] [address] [address] Cortez Younger Glucose [Mass/Vol] 104 mg/dL Normal 74-106 [facility] Comment on above: Performed By: #### C BC #### [facility] [address] [address] [address] Cortez Younger Potassium [Moles/Vol] 3.6 mmol/L Normal 3.5-5.1 [facility] Comment on above: Performed By: #### C BC #### [facility] [address] [address] [address] Cortez Younger Protein [Mass/Vol] 6.8 g/dL Normal 6.4-8.2 [facility] Comment on above: Performed By: #### C BC #### [facility] [address] [place] [address] Dr. Cortez Younger Sodium [Moles/Vol] 136 mmol/L Normal 136-145 [facility] Comment on above: Performed By: #### C BC #### [facility] [address] [place] [address] Dr. Cortez Younger Urea nitrogen [Mass/Vol] 6.0 mg/dL Critically low 7.0-18.0 [facility] Comment on above: Performed By: #### C BC #### [facility] [address] [place] [address] Dr. Cortez Younger Urea nitrogen/Creatinine [Mass ratio] 7.1 mg/mg Normal [facility] Comment on above: Performed By: #### C BC #### [facility] [address] [place] [address] Dr. Cortez Younger Consent for Procedure/Surger yon 10-15-2021 Consent for Procedure/Surgery [id number]: 127 Normal [facility] Patient Educationon 10-15-19 22 Patient [...] these instructions at home: Medicines ? Take zqgf-gkv-cxbocjs and prescription medicines only as told by [...] the blood stops without treatment. ? Take tojl-avx-dtyklka and prescription medicines only as told by your health care provider. ? Drink enough fluid to keep your urine clear or pale yellow. This information is not intended to replace advice given to you by your health care provider. Make sure you discuss any questions you have with your health care provider. Document Released: 06/29/2006 Document Revised: 11/23/2019 Document Reviewed: 08/01/2017 [employer] Patient Education ? 2019 [employer]. [facility] Urology Office/Clinic Noteon 10-14-2021 Urology Office/Clinic [...] [place], [facility] [address] [place] [address]- Additional Instructions: Patient Education Hematuria, Adult Jaret Finley personally scribed for Dr. Graves on 10/14/2021 13:40:09. . Documentation recorded by the Sharonda yao accurately reflects the services(s) I performed and decis (more content not included)... Normal [facility] Comment on above: Result Comment: Elec tronically Signed By: Gustavo Graves Jr., MD\.br\Date and Time Signed: 10/14/21 13:47 EDT\.br\Electronically Co-Signed By: Jaret Benz\.br\Date and Time Co-Signed: 10/14/21 13:40 EDT SURGICAL PATH REPORTon 01-25 SURGICAL PATH REPORT [facility] Department of Pathology [address] [place] [address] Name: HARISH MCKENNA : 1970 Financial [id number] Number: Gender: Male Location: [facility] Admit 50 years Attending CRUZITO TOMLINSON JR Age: Provider: Ordering CRUZITO TOMLINSON JR Provider: Consulting: Surgical Pathology Report ACCESSION: COLLECTED DATE/TIME: RECEIVED DATE/TIME: PATHOLOGIST: [id number] 01/23/2021 12:05 EDT 01/24/2021 12:05 EDT ALVIN CADET MD Final Diagnosis Report for [facility], [place] [facility]TRUM, BIOPSY: - MILD CHRONIC GASTRITIS. [...] MP/ts 01/24/2021 Tissue pathology report for: [facility], [address] [place] [id number]; Print Date/ 01/25/2021 12:34 EDT Number: Time: [facility] Department [facility]ology [address] [place] [id number] Name: HARISH MCKENNA : 1970 Financial [id number] Number: Gender: Male Location: [facility] Admit 50 years Attending CRUZITO TOMLINSON JR Age: Provider: Ordering CRUZITO TOMLINSON JR Provider: Consulting: Surgical Pathology Report ACCESSION: COLLECTED DATE/TIME: RECEIVED DATE/TIME: PATHOLOGIST: [id number] 01/23/2021 12:05 EDT 01/24/2021 12:05 EDT ALVIN CADET MD Gross Description PATHOLOGY SERVICES PROVIDED BY [employer] (CLIA #[id number]) in cooperation with [facility] at [address] [place] [address] (CLIA #[id number]) Microscopic Diagnosis NOTE: One or more of the reagents used to perform assays on this specimen MAY have contained components considered to be analyte specific reagents ( ASRs). ASRs have not been cleared or approved by the U.S. Food and Drug Administration. The performance characteristics of these assays have been determined by the Department of Pathology at [facility]. This assay was performed subsequent to the H and E examination. Appropriate positive and negative controls were examined with appropriate reactivity. Codes CPT CODE: 41191 + 44432 Print Date01/25/2021 12:34 EDT Number: Time: Normal [facility] Comment on above: Performed By: #### [id number] #### [facility] [address] [place] [address] Cancer Center Director: Alvin Cadet MD Vital Signs Date Time Vital Sign Value Performing Clinician Facility 09-17-2023 14:59-0500 Body height 177.8 cm [facility] 09-17-2023 14:59-0500 Body mass index (BMI) [Ratio] 18.8 kg/m2 [facility] 09-17-2023 14:59-0500 Body temperature 98.1 [degF] [facility] 03-07-2024 14:59-0500 Body weight 59.42 kg [facility] 09-17-2023 14:59-0500 Diastolic blood pressure 45 mm[Hg] [facility] 09-17-2023 14:59-0500 Systolic blood pressure 82 mm[Hg] [facility] 03-25-2023 13:30-0400 Body height 177.8 cm Mahnaz Marcelinow Other [facility] [employer] Other 03-25-2023 13:30-0400 Body mass index (BMI) [Ratio] 18.65 kg/m2 Mahnaz Roth Other [employer] [facility] [employer] Other 03-25-2023 13:30-0400 Body temperature 98.4 [degF] Mahnaz Roth Other [employer] Other 03-25-2023 13:30-0400 Body weight 58.97 kg Mahnaz Roth Other [employer] [facility] [employer] Other 03-25-2023 13:30-0400 Diastolic blood pressure 87 mm[Hg] Mahnaz Tuckerraw Other [employer] Other 03-25-2023 13:30-0400 Systolic blood pressure 135 mm[Hg] Mahnaz Ira Other [facility] [employer] Other 12-24-2021 09:50-0400 Blood Pressure Location Gustavo Graves Jr. [facility] 12-24-2021 09:50-0400 Diastolic blood pressure 76 mm[Hg] Gustavo Graves Jr. [facility] 12-24-2021 09:50-0400 Heart rate 68 /min Gustavo Graves Jr. [facility] 12-24-2021 09:50-0400 Systolic blood pressure 132 mm[Hg] Gustavo Graves Jr. [facility] Encounters Encounter Date Encounter Type Care Provider Facility Start: 03-04-2024 End: 03-04-2024 ambulatory MATY Chand WALDEMAR [facility] Start: 01-19-2024 End: 01-19-2024 ambulatory [facility] Work Phone: Start: 01-19-2024 End: 01-19-2024 Patient encounter procedure [facility] Physician [facility] Work Phone: Start: 12-23-2023 End: 12-23-2023 ambulatory EDWARD J HEMEYER Not Available Start: 11-26-2023 End: 11-26-2023 ambulatory EDWARD J HEMEYER Not Available Start: 11-18-2023 End: 11-18-2023 ambulatory [facility] Work Phone: Start: 11-18-2023 End: 11-18-2023 Patient encounter procedure [facility] Physician [facility] Work Phone: Start: 09-17-2023 End: 09-17-2023 Patient encounter procedure [facility] Physician [facility] Work Phone: Start: 09-09-2023 End: 09-09-2023 ambulatory EDWARD J HEMEYER Not Available Start: 08-31-2023 End: 08-31-2023 ambulatory EDWARD J HEMEYER Not Available Start: 08-26-2023 End: 08-29-2023 Non-patient / Non-visit [facility] Work Phone: Start: 08-21-2023 End: 08-21-2023 ambulatory Mahnaz Ira Other [employer] Other Start: 08-21-2023 Telephone encounter Mahnaz Ira [facility] Start: 07-22-2023 Telephone encounter Mahnaz Ira [facility] Start: 07-22-2023 End: 07-22-2023 ambulatory MATY MEDEIROS [employer] Other Start: 06-24-2023 End: 06-24-2023 ambulatory Mahnaz Ira Other [employer] Other Start: 06-24-2023 Telephone encounter Mahnaz Ira [facility] Start: 05-28-2023 End: 05-28-2023 ambulatory Mahnaz Ira Other [employer] Other Start: 05-28-2023 Telephone encounter Mahnaz Ira [facility] Start: 05-19-2023 End: 05-19-2023 ambulatory Mahnaz Ira Other [employer] Other Start: 05-19-2023 Office outpatient visit 15 minutes Mahnaz Ira [facility] Start: 04-21-2023 End: 04-21-2023 ambulatory Mahnaz Ira Other [employer] Other Start: 04-21-2023 Office outpatient visit 15 minutes Mahnaz Ira [facility] Start: 04-07-2023 End: 04-07-2023 ambulatory Mahnaz Ira Other [employer] Other Start: 04-07-2023 Telephone encounter Mahnaz Ira [facility] Start: 04-02-2023 End: 04-02-2023 ambulatory Mahnaz Ira Other [employer] Other Start: 04-02-2023 Telephone encounter Mahnaz Ira [facility] Start: 04-01-2023 End: 04-01-2023 ambulatory Mahnaz Roth Other [employer] Other Start: 04-01-2023 Telephone encounter Mahnaz Roth [facility] Start: 03-25-2023 End: 03-25-2023 ambulatory Mahnaz Roth Other [employer] Other Start: 03-25-2023 Office outpatient ne w 60 minutes Mahnaz Roth [facility] Start: 11-13-2022 End: 11-13-[address] DAHLIA KIM . Facility:[facility] Start: 10-31-2022 End: 11-01-[address] BUBBA GHOTRA . Facility:[facility] Start: 10-16-2022 End: 10-16-2022 ambulatory CARITO SALOMON . Facility:[facility] Start: 10-16-2022 End: 10-17-2022 ambulatory CARITO SALOMON . Facility:[facility] Start: 10-07-2022 End: 10-07-2022 ambulatory [...] DURANT Facility:[facility] Start: 01-17-2022 End: 01-18-[address] THOMASON LISTED REQUEST Facility:[facility] Start: 01-16-2022 End: 01-19-[address] DOCTOR BENNETT Facility:[facility] Start: 01-02-2022 End: 01-03-2022 ambulatory NONE LISTED REQUEST Facility: Start: 12-24-2021 End: 12-25-2021 ambulatory Herifelipe MURRELL Facility:[facility] Start: 12-24-2021 End: 12-24-2021 Patient encounter procedure Gustavo Graves Jr. [facility] Start: 12-17-2021 End: 12-19-[address] DOCTOR BENNETT Facility:[facility] Start: 12-12-2021 End: 12-13-2021 ambulatory LAMAR TURNER Facility: Start: 12-05-2021 End: 12-06-2021 ambulatory Herifelipe MURRELL [facility] Start: 12-05-2021 End: 12-05-2021 Patient encounter procedure Gustavo Graves Jr. [facility] Start: 12-05-2021 ambulatory Herifelipe MURRELL Facility :[facility] Start: 12-03-2021 End: 12-04-2021 ambulatory JERI PURCELL Facility: Start: 10-14-2021 End: 10-15-2021 ambulatory Heri R MURRELL Facility:[facility] Start: 09-19-2021 ambulatory Heri MURRELL Facility :[facility] Start: 12-11-2017 End: 12-12-2017 Patient encounter procedure Tunde Das Facility:[facility] Procedures Date Procedure Procedure Detail Performing Clinician Start: 10-14-2021 Cystoscopy Gustavo flores Jr. Start: 09-13-2019 Cystoscopy Gustavo flores Jr. Cholecystectomy Gustavo Graves Jr. Counseling Mahnaz corcoran Other Plan of Treatment Date Care Activity Detail Author [facility] Immunizations Immunization Date Immunization Notes Care Provider Oswaldo liu 10-22-2020 SARS-CoV-2 (COVID-19 ) mRNA BNT-162b2 nelson Graves JrFish [facility] 10-01-2020 SARS-CoV-2 (COVID-19 ) mRNA BNT-162b2 nelson Graves JrFish [facility] Payers Date Payer Category Payer Unknown [id number] [id number] [id number] 1970 Unknown [id number] 2.16.8 [id number] 1970 Unknown [id number] 2.16.8 [id number] 1970 Unknown [id number] 2.16.8 40.1.013254.3.579.2.727 1969 Unknown [id number] 2.16.8 40.1.652678.3.579.2.727 1969 Unknown [id number] 2.16.84 0.1.360055.3.579.2.593 1969 Unknown [id number] 2.16.84 0.1.485945.3.579.2.593 1969 Unknown [id number] 2.16.84 0.1.046249.3.579.2.593 1969 Unknown [id number] 2.16.84 0.1.037148.3.579.2.593 1969 Unknown [id number] 2.16.84 0.1.134938.3.579.2.593 1969 Unknown [id number] 2.16.84 0.1.662158.3.579.2.593 1969 Unknown [id number] 2.16.84 0.1.553579.3.579.2.593 1969 Unknown [id number] 2.16.84 0.1.061944.3.579.2.593 1969 Unknown [id number] 2.16.84 0.1.328980.3.579.2.593 1969 Unknown [id number] 2.16.84 0.1.258854.3.579.2.593 1969 Unknown [id number] 2.16.84 0.1.633390.3.579.2.593 1969 Unknown [id number] 2.16.84 0.1.880398.3.579.2.593 1969 Unknown [id number] 2.16.84 0.1.243871.3.579.2.593 1969 Unknown [id number] 2.16.84 0.1.352690.3.579.2.593 1969 Unknown [id number] 2.16.84 0.1.270383.3.579.2.593 1969 Unknown [id number] 2.16.84 0.1.996773.3.579.2.593 1969 Unknown [id number] 2.16.84 0.1.066385.3.579.2.593 1969 Unknown [id number] 2.16.84 0.1.141582.3.579.2.593 1969 Unknown [id number] 2.16.84 0.1.571491.3.579.2.593 1969 Unknown [id number] 2.16.84 0.1.246728.3.579.2.593 1969 Unknown [id number] 2.16.84 0.1.266377.3.579.2.1259 1969 Unknown [id number] 2.16.84 0.1.765730.3.579.2.1259 1969 Unknown [id number] 2.16.84 0.1.527888.3.579.2.1259 1969 Unknown [id number] 2.16.84 0.1.286082.3.579.2.1259 1969 Unknown [id number] 2.16.8 40.1.901723.3.579.2.1286 1969 Unknown [id number] 2.16.84 0.1.823817.3.579.2.1286 1960 Medicaid [id number] 1960 Medicare [id number] 1960 Self-pay Unknown HCAP/HFA/FAP Active [id number] Social History Date Type Detail Facility Start: 10-14-2021 Tobacco smoking status Ex-smoker (fi nding) [facility] Sex Assigned At Male [facility] Start: 1970 Sex Assigned At Male [facility] Functional Status Date Assessment Result Facility 12-24-2021 Functional Status N/A [facility] [employer] Clinical Notes 12-05-2021 to 08-21-2023 Note Date & Type Note Facility 08-21-2023 Evaluation note Encounter Date Diagnosis Assessment Notes Aug, Chronic pain (ICD-10 - G89.29) [facility] reviewed, consistent with Rx. MME 60 mg/day [facility] Other 01-10-2024 Evaluation note* Encounter Date Diagnosis Assessment Notes Treatment Notes Treatment Clinical Notes Jul, Chronic pain (ICD-10 - G89.29) [facility] reviewed, consistent with Rx. Also has benzo prescribed by P and pregabalin by neurology [facility] Other 12-13-2023 Evaluation note* Encounter Date Diagnosis Assessment Notes Treatment Notes Treatment Clinical Notes Jun, Chronic pain (ICD-10 - G89.29) [facility] Other 11-16-2023 Evaluation note* Encounter Date Diagnosis Assessment Notes Treatment Notes Treatment Clinical Notes May, Chronic pain (ICD-10 - G89.29) [facility] reviewed, consistent with Rx [facility] Other 11-07-2023 Evaluation note* Encounter Date Diagnosis [...] at bedtime instead of using PRN only [facility] Other 10-10-2023 Evaluation note* Encounter Date Diagnosis Assessment Notes Treatment Notes Treatment Clinical Notes Apr, Chronic pain (ICD-10 - G89.29) [facility] reviewed, consistent with Rx. Harish reports some relief with oxycodone 10 mg tabs, and is using med 3-4x/daily. Continue same without change. Apr, Constipation (ICD-10 - K59.00) Improved elimination with daily use of senna [facility] Other 09-26-2023 Evaluation note* Encounter Date Diagnosis [...] reported some lose stools after using routinely [facility] Other 09-20-2023 Evaluation note* Encounter Date Diagnosis Assessment Notes Treatment Notes Treatment Clinical Notes Mar, Chronic pain (ICD-10 - G89.29) [facility] reviewed, consistent with recent Rx. Increasing frequency of oxycodone to q6h PRN to improve pain control. Mar, Constipation (ICD-10 - K59.00) Harish is using Miralax daily but remains constipated, will add stimulant laxative [facility] Other 09-13-2023 Evaluation note* Encounter Date Diagnosis [...] of Constipation hand out provided to patient [facility] Other 04-06-2023 NoteCONSULTATION CONSULTATION DATE: 10/16/2022 TO: [...] 25 mg daily, Lyrica 200 mg t.i.d., [place] 7.5 mg b.i.d. He currently uses medical [...] THC if we are to continue with [place]. However, at this point, I do not [...] our patients to inform us about any edrp-wfr-bnjpdof medications or herbal remedies/nutritional supplements/alternative remedies. 2. [...] treatment options with their primary care provider.[id number] Note CONSULTATION CONSULTATION DATE: 06/26/2022 HISTORY OF [...] Lyrica 200 mg t.i.d. per his neurologist, [place] 7.5/325 b.i.d., Cymbalta, baclofen and Ocrevus. Patient's [...] medication changes today. He was increased to [place] 7.5/325 at his last visit, and the patient feels it is somewhat helpful. We will continue to medically manage him only. Patient will be seen in the clinic in three months' time unless otherwise indicated.[id number] NoteCONSULTATION CONSULTATION DATE: 03/13/2022 HISTORY OF PRESENT ILLNESS: This is 51-year-old gentleman, well known to the [facility], returning for a three month follow up. This gentleman has history of MS, chronic pain syndrome and diffuse neuropathic pain, which is chronically medically managed with a medication regimen. Current medications include Mobic 15 mg daily, Lyrica 200 mg t.i.d., [place] 5/325 t.i.d., baclofen, Trileptal and amitriptyline. Patient recently suffered a family loss and reportedly has lost about 12 pounds in weight. He does ambulate with a cane and is stable with that. He is requesting today that we change his [place] from t.i.d. to 7.5 b.i.d. as he [...] pain. PLAN: We will check from his [place] 5/325 t.i.d. to 7.5/325 b.i.d. We will maintain his other medications with no dose or frequency change. He will be given a U-Tox in the clinic today. I did discuss vitamin importance as well as supplementing his protein intake with Boost supplements. We will see the patient in three months' time, unless otherwise indicated. Patient is in agreement to this.[id number] Hospital Discharge instructions Patient Education 12/24/2021 10:47:00 [...] including vitamins, herbs, eye drops, creams, and xrsv-orf-ovchsgl medicines. This also includes: ?Medicines to assist [...] 08/01/2005 Document Revised: 06/11/2018 Document Reviewed: 04/05/2018 [employer] Patient Education 2020 [employer]. Follow Up Care 12/05/2021 14:04:21 With:Star Manley MD, Gustavo Orlando, URO Address: [facility] [address] [place] [address]- When:Within 6 Month(s) Comments:w/ PVR [facility] 05-26-2022 Note [id number]:[id number] 12-05-2021 NoteUrolift ? Some men [...] personnel to use a Coude (pronouncedcoo-day) tipped catheter.[facility]05-26-2022 Hospital Discharge instructions Patient Education [...] With:Gustavo Graves Address: [facility] [address] [place] [address]- Business (1) When:2 to 4 weeks Comments:PVR with next visit [facility] Future Appointments Appointment Date:12/24/2021 09:30:00 AM Scheduled Provider:Gustavo Graves Jr., MD Location:[facility] Appointment Type:URO [facility] Future Appointments Appointment Date:07/01/2022 10:45:00 AM Scheduled Provider:Gustavo Graves Jr., MD Location:[facility] Appointment Type:URO Office Visit [facility] evaluation noteNo InformationNortGeisinger [facility] [employer] Other Evaluation note* Diagnosis Onset Date Resolution Status Chronic pain acute Constipation acute snf (current) use of opiate analgesic acute Multiple sclerosis acute [facility] Work Phone: Evaluation note* Diagnosis Onset Date Resolution Status Chronic pain acute Constipation acute Multiple sclerosis acute [facility] Work Phone: History general Narrative - Reported* Type Description Date Medical History multiple sclerosis Medical History bipolar Medical History GERD Surgical History cholecystectomy [facility] [employer] Other Hospital course Narrative No data available for this section [facility] No data available for this section [facility] Summary Purpose Family History No Family History Records Found Relationship Condition Age at Onset Recorded Date/T mohamud father Leukemia Unknown Malignant neoplasm Unknown Advance Directives No Advanced Directives Records Found Advance Directive Response Recorded Date/ Time Advance Directives No March 08, 2017 7:15am Chief Complaint and Reason for Visit Chief Complaint 1 month F/U Patient here for a 2 month f/u Reason for Visit Chronic pain Constipation snf (current) use of opiate analgesic Multiple sclerosis Chief Complaint Patient here for a 2 month f/u Patient here for a f/u visit Reason for Visit Chronic pain Constipation Multiple sclerosis Additional Source Comments (unrecognized sect ion and content) No Status Records FoundNo Status Records FoundNo Status Records FoundNo Status Records FoundNo Status Records FoundNo Status Records Found INFORMATION SOURCE (unrecogn ized section and content) DATE CREATED AUTHOR 09/18/2018 [facility] DATE CREATED AUTHOR AUTHOR'S ORGANIZ ATION 01/25/2021 [facility] DATE CREATED AUTHOR AUTHOR'S ORGANIZ ATION 09/16/2022 [facility] DATE CREATED AUTHOR AUTHOR'S ORGANIZ ATION 11/18/2022 [facility] [place] [facility] DATE CREATED AUTHOR AUTHOR'S ORGANIZ ATION 12/25/2023 [facility] EPIC DATE CREATED AUTHOR AUTHOR'S ORGANIZ ATION 03/06/2024 [facility] Care Team (unrecognized sect ion and content) Team Status: Active Member Role Status Dates Bubba Ghotra MD Primary Care Provider Active Team Status: Inactive Member Role Status Dates Bubba Ghotra MD Primary Care Provider Active Start: November 18, 2023 End: November 18, 2023 Mahnaz Roth APRN Attending Provider Active Start: November 18, 2023 End: November 18, 2023 Team Status: Inactive Member Role Status Dates Bubba Ghotra MD Primary Care Provider Active Start: January 19, 2024 End: January 19, 2024 Mahnaz Roth APRN Attending Provider Active Start: January 19, 2024 End: January 19, 2024 Team Status: Active Member Role Status Dates Bubba Ghotra MD Primary Care Provider Active Start: August 26, 2023 End: August 29, 2023 Lasha Wolfe MD Referring Provider Active Star t: August 26, 2023 End: August 29, 2023 Jeff Eagle DO Attending Provider Active Sta rt: August 26, 2023 End: August 29, 2023 Team Status: Inactive Member Role Status Dates Bubba Ghotra MD Primary Care Provider Active Start: September 17, 2023 End: September 17, 2023 Mahnaz Roth APRN Attending Provider Active Start: September 17, 2023 End: September 17, 2023 REASON FOR VISIT (unrecogniz ed section and [...] QID without change and take Senna routinely Goals (unrecognized section and content) Goals may be documented in a n alternate section FOR RECORDS PERTAINING TO PATIENTS WHO ARE [...] BE BASED ON THE PRIMARY CLINICAL RECORDS. [employer] provides no warranty or guarantee of the accuracy or completeness of information in this document.
[2024-04-05 16:54] LABS: Basophils Absolute Auto 0.1 10^3/uL (0.0-0.1); Basophils Percent Auto 1.9 % (0.2-2.0); Eosinophils Absolute Auto 0.1 10^3/uL (0.0-0.7); Eosinophils Percent Auto 1.6 % (0.9-7.0); Hematocrit 41.1 % (42.0-54.0); Hemoglobin 13.9 g/dL (14.0-18.0); Immature Granulocytes Abs Auto 0.03 10^3/uL (0.00-0.03); Immature Granulocytes Pct Auto 0.4 % (0.0-0.5); Lymphocytes Absolute Auto 1.7 10^3/uL (1.2-3.8); Lymphocytes Percent Auto 22.8 % (20.5-60.0); Mean Corpuscular HGB Conc 33.8 g/dL (29.9-35.2); Mean Corpuscular Hemoglobin 29.8 pg (25.9-34.0); Mean Corpuscular Volume 88.2 fL (80.0-94.0); Mean Platelet Volume 9.3 fL (9.5-13.5); Monocytes Absolute Auto 0.5 10^3/uL (0.3-0.8); Monocytes Percent Auto 6.2 % (1.7-12.0); Neutrophils Percent Auto 67.1 % (43.0-75.0); Platelet Count 382 10^3/uL (150-450); Red Blood Count 4.66 10^6/uL (4.70-6.10); Red Cell Distribution Width 13.2 % (11.0-15.0); White Blood Count 7.4 10^3/uL (4.0-11.0)
[2024-04-05 17:48] LABS: Alanine Aminotransferase 16 U/L (16-63); Albumin Globulin Ratio 1.4; Albumin Level 3.9 g/dL (3.4-5.0); Alkaline Phosphatase 85 U/L (46-116); Anion Gap 6.8; Aspartate Amino Transferase 13 U/L (15-37); BUN Creatinine Ratio 8.1; Bilirubin Total 0.5 mg/dL (0.2-1.0); Calcium 8.9 mg/dL (8.5-10.1); Carbon Dioxide 32.1 mmol/L (21.0-32.0); Chloride 95 mmol/L (98-107); Estimated GFR (African America >60 (>=60); Estimated GFR (Non-African Ame >60 (>=60); Globulin 2.8 g/dL; Glucose 88 mg/dL (74-106); Potassium 3.9 mmol/L (3.5-5.1); Sodium 130 mmol/L (136-145); Thyroid Stimulating Hormone 1.375 uIU/mL (0.358-3.740); Total Protein 6.7 g/dL (6.4-8.2)
[2024-04-05 17:54] LABS: Free T4 0.86 ng/dL (0.76-1.46)
[2024-04-06 00:49] LABS: Bilirubin Urine NEGATIVE (NEGATIVE); Blood Urine NEGATIVE (NEGATIVE); Clarity Urine CLEAR (CLEAR); Color Urine YELLOW (YELLOW); Glucose Urine UA NEGATIVE (NEGATIVE); Ketones Urine NEGATIVE (NEGATIVE); Leukocyte Esterase Urine NEGATIVE (NEGATIVE); Nitrite Urine NEGATIVE (NEGATIVE); Protein Urine NEGATIVE (NEG/TRACE); Specific Gravity Urine 1.015 (1.005-1.025)
[2024-04-06 01:02] LABS: Urine Microscopic Indicated NO
[2024-04-07 03:07] LABS: Vitamin B12 439 pg/mL (232-1245)
[2024-04-07 05:08] LABS: Immunoglobulin G, Qn 578 mg/dL (603-1613)
== END 2024-04-05 16:23 | disposition home or self-care (01) ==
PROVIDERS: PCP Family Medicine; Visit Provider Physician Assistant Medical
DX: G35 Multiple sclerosis (principal); R41.89 Other symptoms and signs involving cognitive functions and awareness
CPT/HCPCS: 36415; 80053; 81003; 82607; 82746; 82784; 84439; 84443; 85025

== ENCOUNTER 2024-05-27 16:19 | Outpatient (OUT) | payer MEDICARE, MEDICAID, SELFPAY ==
--- OUTSIDE RECORDS SUMMARY | 2024-05-27 16:34 | XMS_ITS | CCD ---
Author Organization [facility] Care Team Providers Care Cash 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 Name Role Phone Tunde Das Admitting [...] RIC ., ESA Consulting Unavailable LAKSHMIPATHY ., NARENDRANRAMIRO Consulting Maureen vailable HEMEYER ., DR PEREIRA [...] LISTED Primary Care UnavailABIMAEL Willis Consulting Unavailable MISC, DR MASON Attending Unavailable JULIO ., DR VILLAGOMEZ Attending Unavailable JULIO ., DR VILLAGOMEZ Admitting Unavailable CANAAN, DR CRUZITO Schuster Consulting Unavailable HEMEYER ., DR PEREIRA Primary Care Unavailable JULIO ., DR VILLAGOMEZ Consulting Unavailable LAMAR TURNER Attending Unavailable YUE, LAMAR Admitting Unavailable YUE, LAMAR Consulting Unavailable HEMEYER ., DR PEREIRA Primary Care Unavailable BINH, REBA Attending Unavailable BINH, REBA Admitting Unavailable BINH, REBA Consulting Unavailable HEMEYER ., DR PEREIRA Primary [...] HEMEYER ., DR PEREIRA Primary Care Unavailable REBA PURCELL Attending Unavailable REBA PURCELL Admitting Unavailable HEMEYER ., DR PEREIRA Primary Care Unavailable BENEDICT, DR PORRAS Consulting Unavailable BENEDICT, DR PORRAS Attending Unavailable BENEDICT, DR PORRAS Admitting Unavailable ZIEBER, DR VERN Ortiz Consulting Unavailable LOWEELAINA Consulting Unavailable BENEDICT, DR PORRAS Attending Unavailable BENEDICT, DR PORRAS Admitting Unavailable HEMEYER ., DR PEREIRA Primary Care Unavailable MISC, DR MASON Admitting Unavailable REQUEST, DR NONE LISTED Primary Care Unavaila ble MISC, DR MASON Attending Unavailable REBA PURCELL Consulting Unavailable ROMERO ., DR LISA Schwartz Attending Unavailable GARRETT ., JULIA Consulting Unavailable ROMERO ., DR LISA S Admitting Unavailable HEMEYER ., DR VILLEDAWARD Primary Care Unavailable Mahnaz Roth Unavailable MATY WIN Attending Unavailable MATY WIN Attending Unavailable BUBBA GHOTRA Attending Unavailable BUBBA GHOTRA Attending Unavailable BUBBA GHOTRA Attending Unavailable BUBBA GHOTRA Attending Unavailable BUBBA GHOTRA Attending Unavailable REBA ALCAZAR Attending Unavailable Bubba Ghotra MD Primary Care Provider Bubba Ghotra MD Unavailable Elaina Payton Unavailable Cathryn STEVENSON, Kenna Unavailable Maty Win MD Unavailable Bubba Ghotra MD Primary Care Provider Bubba Ghotra MD Unavailable [phone] Allergies Allergy Classification Reported Allergen(s) Allergy Type Date of Onset Reaction(s) Facility (17 sources) PARoxetine; Translations: [paroxetine] Drug Allergy 4 Mild (qualifier value) [facility] (2 sources) PARoxetine Drug Allergy 3 [facility] (12 sources) venlafaxine Drug Allergy 3 Unknown [facility] (9 sources) venlafaxine Drug Allergy 3 Unknown Reaction [facility] (5 sources) PARoxetine Drug Allergy 2 Rash [facility] Medications Current Medications Medication Drug Class(es) Dates Sig (Normalized) Sig (Original) albuterol 0.83 mg/ml inhalation solution (20 sources) beta2-Adrenergic Agonist Start: 04-06-2024 End: 08-04-2024 albuterol (2.5 MG/3ML) 0.083% nebulizer solution Indications: Simple chronic bronchitis (CMS/HCC) Take 3 mL (2.5 mg) by nebulization every 6 (six) hours if needed for wheezing 360 mL 3 04/06/2024 08/04/2024 Active Start: 03-12-2017 End: 02-15-2020 take 2.5 mg [...] Active amitriptyline hydrochloride 50 mg oral tablet (6 sources) Tricyclic Antidepressant Start: 08-06-2021 take 1 [...] 12, 2017 12:00am February 15, 2020 9:57am ARIPiprazole 5 mg oral tablet (5 sources) Atypical Antipsychotic Start: 03-04-2024 take 1 tablet by mouth once daily ARIPiprazole (Abilify) 5 MG tablet Take 5 mg by mouth Daily 03/04/2024 Active baclofen 20 mg oral tablet (20 sources) gamma-Aminobutyric Acid-ergic Agonist Start: 01-25-2024 take 1 tablet by mouth three times daily baclofen (Lioresal) 20 MG tablet Indications: Muscle spasm TAKE ONE TABLET BY MOUTH THREE TIMES A DAY 90 tablet 3 01/25/2024 Active Start: 08-06-2021 take 5 mg by mouth t hree times daily baclofen 10 mg Tab 5 mg = 0.5 tab(s), Oral, TID, # 30 tab(s), Refills(s) 0 Start Date: 08/06/21 Status: Ordered Start: 03-12-2017 take 10 mg by mouth three times daily Baclofen Active 10 MG PO Three times daily March 12, 2017 12:00am Baclofen 10 MG a s directed Orally qid Active 60 actuat budesonide 0.16 mg/actuat / formoterol fumarate 0.0045 mg/actuat metered dose inhaler (5 sources) Corticosteroid, beta2-Adrenergic Agonist Start: 01-25-2024 End: 04-24-2024 take 2 puff(s) by inhalation in the morning budesonide-formoterol (Symbicort) 160-4.5 MCG/ACT inhaler Indications: Simple chronic bronchitis (CMS/HCC) Inhale 2 puffs in the morning and 2 puffs before bedtime. 1 each 3 01/25/2024 Active busPIRone hydrochloride 7.5 mg oral tablet (14 sources) Start: 09-10-2023 take 1 tablet by mouth twice daily Buspirone Active 1 TAB PO Twice daily September 10, 2023 1:00am FreeTextSi tablet Orally Twice a day; Note: Source Status: Taking; Provider: Ira Joya ( ) take 1 tablet by rachel th every twelve hours busPIRone HCl 7.5 MG 1 tablet Orally Twi ce a day Active Cannabinoids (medical cannabis) (5 sources) take 1 dose by mouth once daily as needed Cannabinoids (medical cannabis) Take 1 each by mouth Daily as needed. Active ciprofloxacin 500 mg oral tablet (1 source) Quinolone Antimicrobial Start: 12-03-19 take 1 tablet by mouth twice daily Cipro 500 mg Tab 500 mg = 1 tab(s), Oral, BID, Start medication 3 days prior to procedure., # 14 tab(s), Refills(s) 0, Pharmacy: [facility]/pharmacy #[id number], 178, cm, 10/14/21 12:57:00 EDT, Height/Length Dosing, 65.8, kg, 10/14/21 12:57:00 EDT, Weight Dosing Start Date: 12/02/21 Status: Ordered clonazePAM 0.5 mg oral tablet (19 sources) Benzodiazepine Start: 09-10-19 take 1 tablet by mouth once daily Clonazepam Active 0.5 MG PO Daily September 10, 2023 1:00am FreeTextSi tablet Orally Once a day; Note: Source Status: Taking; Provider: Ira Joay ( ) Start: 08-07-2023 take 1 tablet by rachel th in the morning clonazePAM (KlonoPIN) 1 MG tablet Take 1 mg by mouth in the morning and 1 mg before bedtime. 08/07/2023 Active take 1 tablet by rachel th every twenty-four hours KlonoPIN 0.5 MG 1 tablet Orally Once a day Active DHEA (2 sources) Start: 08-31-2019 DHEA Oral, Eri ly, Refills(s) 0 Start Date: 08/31/19 Status: Ordered diazePAM 10 mg oral tablet (5 sources) Benzodiazepine Start: 10-14-2021 Valium 10 mg T ab 10 mg = 1 tab(s), Oral, Once, Take 1/2 hour prior to procedure, # 1 tab(s), Refills(s) 0, Pharmacy: [facility]/pharmacy #[id number], 178, cm, 10/14/21 12:57:00 EDT, [...] Refills(s) 0 Start Date: 08/06/21 Status: Ordered docusate sodium 100 mg oral capsule (4 sources) Start: 02-10-2024 End: 02-10-2024 take 100 mg by mouth once daily Docusate Sodium Active 100 MG PO Daily February 10, 2024 5:15pm Cymbalta (20 sources) Serotonin and Norepinephrine Reuptake Inhibitor Start: 01-25-2022 Cymbalta Oral, Refills(s) 0 Start Date: 08/06/21 Status: Ordered Start: 03-12-2017 Duloxetine (Cy mbalta) 60 mg Capsule,Delayed Release(Dr/Ec) Active 90 MG PO daily March 12, 2017 12:00am take 2 capsules by m outh in the morning DULoxetine (Cymbalta) [address] capsule Take 2 capsules by mouth in the morning. Active take 1 capsule by mo uth every twenty-four hours DULoxetine HCl 60 MG 1 capsule Orally Once a day Active famotidine 20 mg oral tablet (4 sources) Histamine-2 Receptor Antagonist Start: 02-15-2020 take 1 tablet by mouth once daily before mealtime Famotidine (Pepcid Ac) 20 mg Tablet Active 20 MG PO Daily February 15, 2020 12:00am HYDROcodone bitartrate 7.5 mg / ibuprofen 200 mg oral tablet (2 sources) Opioid Agonist, Nonsteroidal Anti-inflammatory Drug Start: 08-06-2021 take 1 tablet by mouth three times daily for pain hydrocodone-ibupro fen 7.5 mg-200 mg Oral Tab 1 tab(s), Oral, TID for pain, Refill(s) 0 Start Date: 08/06/21 Status: Ordered losartan potassium 100 mg oral tablet (7 sources) Angiotensin 2 Receptor Karen Start: 04-04-2024 End: 10-01-2024 take 1 tablet by mouth once daily losartan (Cozaar) 100 MG tablet Indications: Primary hypertension (CMS/HCC) Take 1 tablet (100 mg) by mouth Daily 90 tablet 1 04/04/2024 10/01/2024 Active Start: 10-14-2021 take 1 tablet by mouth once da rao losartan 100 mg Tab 100 mg = 1 tab(s), Oral, Daily Start Date: 10/14/21 Status: Ordered meclizine hydrochloride 25 mg oral tablet (19 sources) Antiemetic Start: 09-10-2023 take 1 tablet by mouth every twelve hours as needed Meclizine Active 25 MG PO Every 12 hours September 10, 2023 1:00am FreeTextSi tablet as needed Orally every 12 hrs; Note: Source Status: Taking; Provider: Ira Joya ( ) take 1 tablet by rachel three times daily as needed for nausea meclizine (Antivert) 25 MG tablet Take 2 5 mg by mouth 3 (three) times a day as needed for nausea. Active take 1 tablet by rachel th every twelve hours Meclizine HCl 25 MG 1 tablet as needed Orally every 12 hrs Active Melatonin (2 sources) Start: 08-31-2019 melatonin Once a day (at bedtime), Refills(s) 0 Start Date: 08/31/19 Status: Ordered metoprolol tartrate 50 mg oral tablet (17 sources) beta-Adrenergic Karen Start: 04-04-2024 End: 10-01-2024 take 1.5 tablets by mouth in the morning metoprolol tartrate (Lopressor) 50 MG tablet Indications: Hypertension Take 1.5 tablets (75 mg) by mouth in the morning and 1.5 tablets (75 mg) before bedtime. 270 tablet 1 04/04/2024 10/01/2024 Active Start: 12-05-2021 take 1 tablet by rachel th twice daily metoprolol 50 mg ER Tab 50 mg = 1 tab(s), Oral, BID, Refills(s) 0 Start Date: 12/05/21 Status: Ordered take 1 tablet by rachel th every twelve hours Metoprolol Tartrate 50 MG 1 tablet with food Orally Twice a day Active Multi Vitamin+ (2 sources) Start: 08-31-2019 Multi Vitamin+ Refill(s) 0 Start Date: 08/31/19 Status: Ordered naloxone hydrochloride 40 mg/ml nasal spray (5 sources) Opioid Antagonist naloxone (Narc an) 4 mg/0.1 mL nasal spray Administer 4 mg into affected nostril(s) if needed for opioid reversal. Active Nebulizers (Compressor/Nebulizer) misc (5 sources) Start: 09-15-2023 Nebulizers (Compressor/Nebulizer) misc Indications: Chronic hypoxemic respiratory failure (CMS/HCC) , Simple chronic bronchitis (CMS/HCC) , Wheezing , Panlobular emphysema (CMS/HCC) Use 4 times per day regularly and every 4 hours as needed for shortness of breath and wheezing as directed 1 each 09/15/2023 Active 10 ml ocrelizumab 30 mg/ml injection (19 sources) Start: 09-10-2023 Ocrelizumab Ac tive MG IV September 10, 2023 1:00am FreeTextSig: as directed Intravenous As Directed; Note: Source Status: Taking; Provider: Ira Joya ( ) Start: 02-26-2023 Ocrevus 300 MG /10ML solution Infuse into a venous catheter every 6 (six) months 02/26/2023 Active Ocrevus 300 MG/1 0ML as directed Intravenous As Directed Active ondansetron 4 mg disintegrating oral tablet (19 sources) Serotonin-3 Receptor Antagonist Start: 11-13-2022 take 1 tablet by mouth every eight hours as needed for nausea ondansetron ODT (Zofran-ODT) 4 MG disintegrating tablet Take 4 mg by mouth every 8 (eight) hours if needed for nausea. 11/13/2022 Active Start: 02-15-2020 take 1 tablet by rachel th three times daily Ondansetron Hcl (Zofran) 4 mg Tablet Active 4 MG PO Three times daily February 15, 2020 12:00am take 1 tablet by rachel th every twenty-four hours Ondansetron HCl 4 MG 1 tablet Orally Once a day Active OXcarbazepine 300 mg oral tablet (20 sources) Anti-epileptic Agent Start: 04-19-2024 take 1 tablet by mouth at bedtime OXcarbazepine (Trileptal) 300 MG tablet Indications: Sensory disturbance Take 1 tablet (300 mg) by mouth at bedtime 30 tablet 2 04/19/2024 Active Start: 12-28-2023 End: 04-19-2024 take 1 tablet by mouth in the morning OXcarbazepine (Trileptal) 300 MG tablet Indications: Sensory disturbance Take 1 tablet (300 mg) by mouth in the morning and 1 tablet (300 mg) before bedtime. 60 tablet 2 12/28/2023 04/19/2024 Discontinued Start: 08-06-2021 take 2 tablets by mo [facility] twice daily Trileptal 300 mg Tab 600 [...] 1 tablet Orally Twice a day Active Oxygen (10 sources) Start: 09-15-2023 oxygen (O2) ga s Indications: Acute hypoxemic respiratory failure (CMS/HCC) Inhale oxygen via portable oxygen concentrator and nasal canula setting of 3 To maintain pulse ox saturation of 92% 09/15/2023 Active Start: 08-29-2023 oxygen (O2) ga s Inhale 2-3 L/min continuously via nasal canula 08/29/2023 Active pantoprazole 40 mg delayed release oral tablet (20 sources) Proton Pump Inhibitor Start: 09-10-2023 End: 10-01-2024 take 1 tablet by mouth in the morning pantoprazole (ProtoNix) 40 MG EC tablet Indications: Gastroesophageal reflux disease without esophagitis Take 1 tablet (40 mg) by mouth in the morning and 1 tablet (40 mg) before bedtime. 180 tablet 1 04/04/2024 10/01/2024 Active Start: 08-06-2021 take 1 mg by mouth twice daily pantoprazole 40 mg Oral EC Tab mg tab(s), Oral, BID, Refills(s) 0 Start Date: 08/06/21 Status: Ordered Start: 02-04-2021 take 1 tablet by rachel th every twelve hours Pantoprazole Sodium 40 MG 1 tablet Orally TWICE A DAY for 30 days Jan, Active predniSONE 10 mg oral tablet (19 sources) Start: 04-11-2024 take 3 tablets by mouth once daily, then take 2 tablets by mouth once daily, then take 1 tablet by mouth once daily predniSONE (Deltasone) 10 MG tablet Indications: Multiple sclerosis (CMS/HCC) Take 3 tabs (30mg) PO daily for 3 days, then take 2 tabs (20mg) PO daily for 3 days, then take 1 tab (10mg) PO daily for 3 days 18 tablet 04/11/2024 Active Start: 09-10-2023 Prednisone Act eb 10 MG PO As Directed September 10, 2023 1:00am FreeTextSig: as directed Orally as directed; Note: Source Status: TakingPRN; Provider: Ira Joya ( ) prednisone 10 mg as directed Orally as directed PRN Active pregabalin 200 mg oral capsule (20 sources) Start: 04-19-2024 take 1 capsule by mouth three times daily at bedtime pregabalin (Lyrica) 200 MG capsule Indications: Cervical radiculopathy TAKE ONE CAPSULE BY MOUTH THREE TIMES A DAY ( IN THE MORNING , IN THE EVENING , AND BEFORE BEDTIME ) 90 capsule 2 04/19/2024 Active Start: 09-10-2023 End: 04-19-2024 take 1 capsule by mouth three times daily Pregabalin Active 200 MG PO Three times daily September 10, 2023 1:00am FreeTextSi capsule Orally tid; Note: Source Status: Taking; Provider: Ira Joya ( ) Start: 08-06-2021 take 1 capsule by mo [facility] three times daily Lyrica 200 mg Cap 200 mg = 1 cap(s), Oral, TID, Refills(s) 0 Start Date: 08/06/21 Status: Ordered take 1 capsule by [facility] once daily at bedtime Pregabalin 200 MG 1 capsule 1 to 3 hours before bedtime Orally Once a day Active primidone 50 mg oral tablet (20 sources) Anti-epileptic Agent Start: 09-10-2023 take 1 tablet by mouth once daily in the morning, then take 2 tablets by mouth once daily at bedtime primidone (Mysoline) 50 MG tablet Indications: Tremor TAKE ONE TABLET BY MOUTH DAILY IN THE MORNING AND TWO TABLETS DAILY AT BEDTIME 90 tablet 2 03/29/2024 Active Start: 08-06-2021 primidone 50 m g Tab 25 mg = 0.5 tab(s), Oral, Once a day (at bedtime), # 15 tab(s), Refills(s) 0 Start Date: 08/06/21 Status: [facility] Primidone 50 MG 1 tablet Orally Once a day Active QUEtiapine 50 mg oral tablet (20 sources) Atypical Antipsychotic Start: 01-08-2024 End: 11-12-2024 take 1-2 tablets by mouth every four hours at bedtime QUEtiapine (SEROquel) 50 MG tablet Indications: Insomnia, unspecified type Take 1-2 tablets (50-100 mg) by mouth at bedtime May repeat in about 4 hours upon awakening 180 tablet 1 05/16/2024 11/12/2024 Active Start: 08-06-2021 take 2 tablets by mo uth three times daily SEROquel 25 mg Tab 50 mg = 2 tab(s), Oral, TID, Refills(s) 0 Start Date: 08/06/21 Status: Ordered Start: 02-15-2020 take 3 tablets by mo uth once daily at bedtime Quetiapine (Seroquel) 25 mg Tablet Active 75 MG PO Daily at bedtime February 15, 2020 12:00am take 1 tablet by rachel every twenty-four hours SEROquel 50 MG 1 tablet at bedtime Orally Once a day Active Sennosides (8 sources) Start: 02-10-2024 take 1-2 tablets by mouth twice daily Sennosides Active 0 PO Twice daily 120 February 10, 2024 5:15pm 1-2 tabs orally twice daily; Start: 02-10-2024 End: 02-10-2024 take 1-2 tablets by mouth twice daily Sennosides Discontinued 0 PO Twice daily 120 February 10, 2024 4:51pm February 10, 2024 5:15pm 1-2 tabs orally twice daily; Start: 09-10-2023 End: 02-10-2024 take 2 tablets by mouth twice daily as needed Sennosides Discontinued MG PO September 10, 2023 1:00am February 10, 2024 4:55pm FreeTextSi tabs as needed Orally BID; Note: Source Status: Taking; Refills: 2; Qty: 120 Tablet; Provider: Ira Chaudhry Start: 09-10-2023 take 2 tablets by mo uth twice daily as needed Sennosides Active MG PO September 10, 2023 1:00am FreeTextSi tabs as needed Orally BID; Note: Source Status: Taking; Refills: 2; Qty: 120 Tablet; Provider: Ira Chaudhry sennosides, group home 8.6 mg oral tablet (14 sources) Start: 04-02-2023 take 2 tablets by mouth twice daily as needed for constipation senna (Senokot) 8.6 MG tablet Indications: Constipation Take 2 tablets by mouth 2 (two) times a day as needed for constipation 04/02/2023 Active sodium chloride 9 mg/ml inhalation solution (5 sources) Start: 04-26-2024 sodium chlorid e 0.9 % nebulizer solution Indications: Panlobular emphysema (CMS/HCC) Take 3 mL by nebulization every 4 (four) hours if needed for shortness of breath (and muus clearance) 600 mL 04/26/2024 Active Start: 04-06-2024 sodium chlorid e 0.9 % nebulizer solution Indications: Panlobular emphysema (CMS/HCC) Take 3 mL by nebulization every 4 (four) hours if needed for shortness of breath (and muus clearance) 600 mL 04/06/2024 Active spironolactone 25 mg oral tablet (6 sources) Aldosterone Antagonist Start: 04-04-2024 End: 10-15-2024 take 1 tablet by mouth once daily spironolactone (Aldactone) 25 MG tablet Indications: Venous insufficiency Take 1 tablet (25 mg) by mouth Daily 90 tablet 1 04/18/2024 10/15/2024 Active Completed/Discontinued Medications Medication Drug Class(es) Dates Sig (Normalized) Sig (Original) 72 hr fentaNYL 0.05 mg/hr transdermal system (4 sources) Opioid Agonist Start: 03-12-2017 End: 02-15-2020 Fentanyl Discontinued 1 PATCH TRANSDERML Q72H March 12, 2017 12:00am February 15, 2020 9:58am gabapentin 300 mg oral capsule (4 sources) Anti-epileptic Agent Start: 03-12-2017 End: 02-15-2020 take 1 capsule by mouth twice daily Gabapentin (Neurontin) 300 mg Capsule Discontinued 300 MG PO Twice daily March 12, 2017 12:00am February 15, 2020 9:58am 15 ml natalizumab 20 mg/ml injection (4 sources) Integrin Receptor Antagonist Start: 03-12-2017 End: 02-15-2020 Natalizumab (Tysabri) 300 mg/15 mL Solution Discontinued 300 MG IV EVERY 4 WEEKS March 12, 2017 12:00am February 15, 2020 9:58am oxybutynin chloride 5 mg oral tablet (4 sources) Cholinergic Muscarinic Antagonist Start: 02-15-2020 End: 05-10-2024 take 5 mg by mouth twice daily Oxybutynin Chloride Discontinued 5 MG PO Twice daily February 15, 2020 12:00am May 10, 2024 2:21pm oxyCODONE hydrochloride 10 mg oral tablet (20 sources) Opioid Agonist Start: 04-01-2023 End: 05-10-2024 take 10 mg by mouth every four to six hours Oxycodone Discontinued 10 MG PO EVERY 4-6 HOURS 150 30 February 10, 2024 March 16, 2024 4:35pm Start: 03-25-2023 take 1 tablet by rachel [...] 9:58am promethazine hydrochloride 25 mg oral tablet (19 sources) Phenothiazine Start: 03-12-2017 End: 02-15-2020 take 25 mg by mouth every six hours Promethazine Discontinued 25 MG PO Q6H March 12, 2017 12:00am February 15, 2020 9:58am Promethazine HCl PRN Active raNITIdine 150 mg oral tablet (4 sources) Histamine-2 Receptor Antagonist Start: 03-12-2017 End: 02-15-2020 take 150 mg by mouth once daily at bedtime Ranitidine Hcl Discontinued 150 MG PO Daily at bedtime March 12, 2017 12:00am February 15, 2020 9:58am sucralfate 1000 mg oral tablet (4 sources) Aluminum Complex Start: 03-12-2017 End: 02-15-2020 take 1 tablet by mouth four times daily Sucralfate (Carafate) 1 gram Tablet Discontinued 1 GM PO Four times daily March 12, 2017 12:00am February 15, 2020 9:59am tamsulosin hydrochloride 0.4 mg oral capsule (5 sources) alpha-Adrenergic Karen Start: 02-15-2020 End: 05-10-2024 take 1 capsule by mouth once daily Tamsulosin (Flomax) 0.4 mg Capsule Discontinued 0.4 MG PO Daily February 15, 2020 12:00am May 10, 2024 2:21pm traMADol hydrochloride 50 mg oral tablet (4 sources) Opioid Agonist Start: 02-15-2020 End: 09-10-2023 take 50 mg by mouth twice daily Tramadol Discontinued 50 MG PO Twice daily February 15, 2020 12:00am September 10, 2023 4:03pm Problems Active Problems Problem Classification Problem Date Documented Da te Episodic/Chronic Administrative/social admission (1 source) Other specified counseling Episodic Anxiety disorders (19 sources) Anxiety disorder, unspecified; Translations: [Anxiety] Onset: 2 Chronic Asthma (3 sources) Asthma; Translations: [Unspecified asthma, uncomplicated] Onset: 3 08-31-2019 Chronic Blindness and vision defects (1 source) Other visual disturbances; Translations: [OTHER VISUAL DISTURBANCES] Onset: 3 Episodic Chronic obstructive pulmonary disease and bronchiectasis (13 sources) Chronic obstructive lung disease; Translations: [Emphysema, unspecified] Onset: 2 08-31-2019 Chronic Disorders of lipid metabolism (7 sources) Hyperlipidemia; Translations: [Mixed hyperlipidemia] Onset: 3 08-31-2019 Chronic Esophageal disorders (15 sources) Gastroesophageal reflux disease; Translations: [Gastro-esophageal reflux disease without esophagitis] Onset: 3 12-01-2022 Chronic Essential hypertension (6 sources) Essential (primary) hypertension; Translations: [Essential hypertension] Onset: 3 12-01-2022 Chronic Fluid and electrolyte disorders (1 source) Hypo-osmolality and hyponatremia; Translations: [HYPO-OSMOLALITY AND HYPONATREMIA] Onset: 3 Episodic Genitourinary symptoms and ill-defined conditions (14 sources) Post-micturition incontinence ; Translations: [Urge incontinence of urine] Onset: 3 08-31-2019 Chronic Hyperplasia of prostate (3 sources) Benign prostatic hypertrophy with outflow obstruction; Translations: [Benign prostatic hyperplasia with lower urinary tract symptoms] Onset: 2 10-14-2021 Chronic Malaise and fatigue (3 sources) Weakness; Translations: [WEAKNESS] Onset: 3 Episodic Mood disorders (8 sources) Depressive disorder; Translations: [Major depressive disorder, recurrent, moderate] Onset: 2 08-31-2019 Chronic Multiple sclerosis (20 sources) Multiple sclerosis; Translations: [Multiple sclerosis] Onset: 3 09-21-2019 Chronic Comment on above: Aug 2000 Nausea and vomiting (15 sources) Nausea with vomiting, unspecified; Translations: [Nausea] Onset: 3 Episodic Nutritional deficiencies (5 sources) Moderate protein energy malnutrition; Translations: [Moderate protein-calorie malnutrition] Onset: 4 09-15-2023 Chronic Other aftercare (1 source) Other rodent exterminator (current) drug therapy; Translations: [OTH TIRE SETTER CURRENT DRUG THERAPY] Onset: 3 Episodic Other aftercare (10 sources) Seen by palliative care physician; Translations: [Encounter for palliative care] Episodic Other aftercare (1 source) Encounter for palliative care Episodic Other aftercare (4 sources) Long-term current use of drug therapy; Translations: [termite inspector (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) use of opiate analgesic] 09-10-2023 Episodic Other aftercare (1 source) [facility] (current) use of opiate analgesic; Translations: [Long-term (current) use of other medications] 09-17-2023 Episodic Other diseases of bladder and urethra (2 sources) Neurogenic bladder; Translations: [Neuromuscular dysfunction of bladder, unspecified] 04-12-2024 Chronic Other diseases of kidney and ureters (1 source) Urinary tract obstruction; Translations: [Other obstructive and reflux uropathy] Onset: 2 Episodic Other gastrointestinal disorders (14 sources) Constipation; Translations: [Constipation, unspecified] 09-17-2023 Episodic Other gastrointestinal disorders (9 sources) Constipation, unspecified; Translations: [Constipation, unspecified] Episodic Other male genital disorders (5 sources) Secondary erectile dysfunction; Translations: [Male erectile dysfunction, unspecified] Onset: 3 12-01-2022 Chronic Other male genital disorders (2 sources) Mass of epididymis 08-31-2019 Episodic Other nervous system disorders (17 sources) Other chronic pain; Translations: [Other chronic pain] Onset: 3 Chronic Other nervous system disorders (1 source) Polyneuropathy, unspecified; Translations: [POLYNEUROPATHY UNSPECIFIED] Onset: 2 Chronic Other nervous system disorders (2 sources) Chronic pain syndrome; Translations: [Chronic pain syndrome] Onset: 2 05-10-2024 Chronic Other nervous system disorders (16 sources) Chronic pain; Translations: [Other chronic pain] 09-17-2023 Chronic Other nervous system disorders (5 sources) Difficulty walking; Translations: [Difficulty in walking, not elsewhere classified] Onset: 3 12-01-2022 Chronic Other nervous system disorders (1 source) Chronic pain syndrome; Translations: [Chronic pain syndrome] 05-10-2024 Chronic Other nervous system disorders (1 source) Paresthesia of skin; Translations: [PARESTHESIA OF SKIN] Onset: 3 Episodic Other nervous system disorders (2 sources) Tremor; Translations: [Tremor, unspecified] 04-12-2024 Episodic Other nervous system disorders (1 source) Sensory disorder; Translations: [Unspecified disturbances of skin sensation] 04-18-2024 Episodic Other screening for suspected conditions (not [...] OUT PT OT RSN] Onset: 3 Episodic Residual codes; unclassified (6 sources) Insomnia; Translations: [Insomnia, unspecified] Onset: 3 12-01-2022 Episodic Respiratory failure; insufficiency; arrest (adult) (5 sources) Chronic hypoxemic respiratory failure; Translations: [Chronic respiratory failure with hypoxia] Onset: 4 09-14-2023 Chronic Spondylosis; intervertebral disc disorders; other back problems (1 source) Cervical radiculopathy; Translations: [Radiculopathy, cervical region] 04-18-2024 Episodic Substance-related disorders (11 sources) Nicotine dependence, cigarettes, uncomplicated; Translations: [Substance abuse] Onset: 3 12-01-2022 Chronic Substance-related disorders (5 sources) Marijuana user; Translations: [Cannabis use, unspecified, uncomplicated] Onset: 4 04-05-2024 Episodic Unclassified (1 source) G35 - Multiple sclerosis; [...] Other Problems Problem Classification Problem Date Documented Date Episodic/Chronic Conditions associated with dizziness or vertigo (5 sources) Vertigo of central origin; Translations: [Vertigo of central origin] Onset: 12-01-2022 12-01-2022 Episodic Gastritis and duodenitis (5 sources) Gastritis; Translations: [Gastritis, unspecified, without bleeding] Onset: 12-01-2022 12-01-2022 Episodic Genitourinary symptoms and ill-defined conditions (13 sources) Dysuria; Translations: [Increased frequency of urination] Onset: 12-12-2021 08-31-2019 Episodic Mood disorders (5 sources) Mood disorders Onset: 12-23-2023 12-23-2023 Other aftercare (5 sources) Polypharmacy ; Translations: [Other rodent exterminator (current) drug therapy] Onset: 08-04-2020 12-01-2022 Episodic Other connective tissue disease (5 sources) Muscle weakness; Translations: [Muscle weakness (generalized)] Onset: 12-01-2022 12-01-2022 Episodic Other diseases of veins and lymphatics (6 sources) Vascular insufficiency; Translations: [Venous insufficiency (chronic) (peripheral)] Onset: 11-27-2023 11-27-2023 Episodic Other disorders of stomach and duodenum (5 sources) Cyclical vomiting syndrome; Translations: [Cyclical vomiting syndrome unrelated to migraine] Onset: 12-01-2022 12-01-2022 Episodic Other lower respiratory disease (1 source) Shortness of breath; Translations: [SHORTNESS OF BREATH] Onset: 05-30-2022 Episodic Other nervous system disorders (5 sources) Abnormal gait; Translations: [Unsteadiness on feet] Onset: 12-01-2022 12-01-2022 Episodic Other nutritional; endocrine; and metabolic disorders (5 sources) Underweight; Translations: [Underweight] Onset: 12-01-2022 12-01-2022 Episodic Pneumonia (except that caused by tuberculosis or sexually transmitted disease) (1 source) Pneumonia, unspecified organism; Translations: [PNEUMONIA UNSPECIFIED ORGANISM] Onset: 05-30-2022 Episodic Screening and history of mental health and substance abuse codes (7 sources) Ex-smoker; Translations: [Personal history of nicotine dependence] Onset: 12-23-2023 Resolved: 04-05-2024 08-31-2019 Episodic Unclassified (1 source) COUGH, UNSPECIFIED; Translations: [COUGH, UNSPECIFIED] Onset: 05-28-2022 Results Test Name Value Interpretation Reference Range Facility AMYLASEon 11-13-2022 Amylase [Catalytic activity/Vol] 37 U/L Normal 25-115 [facility] Comment on above: Performed By: #### A MY, CMP, LIPA ####[facility] [address] [place], [place] [address]UmDr. Cortez Younger CBC AUTO DIFFon 11-13-2022 BASO # 0.1 103/ul Normal 0.0-0.1 [facility] Comment on above: Performed By: #### C BC #### [facility] [address] [address] [address] Cortez Younger Basophils/100 WBC (Bld) 1.3 % Normal 0.2-2.0 [facility] Comment on above: Performed By: #### C BC #### [facility] [address] [address] [address] Cortez Younger EO # 0.1 103/ul Normal 0.0-0.7 [facility] Comment on above: Performed By: #### C BC #### [facility] [address] [address] [address] Cortez Younger Eosinophils/100 WBC (Bld) 0.9 % Normal 0.9-7.0 [facility] Comment on above: Performed By: #### C BC #### [facility] [address] [address] [address] Cortez Younger Erythrocyte distribution width (RBC) [Ratio] 12.5 % Normal 11.0-15.0 [facility] Comment on above: Performed By: #### C BC #### [facility] [address] [address] [address] Cortez Younger Hematocrit (Bld) [Volume fraction] 42.3 % Normal 42.0-54.0 [facility] Comment on above: Performed By: #### C BC #### [facility] [address] [address] [address] Cortez Younger Hemoglobin (Bld) [Mass/Vol] 15.1 g/dL Normal 14.0-18.0 [facility] Comment on above: Performed By: #### C BC #### [facility] [address] [place] [address] Dr. Cortez Younger IG # 0.04 10e3/ul Critically high 0.00-0.03 [facility] Comment on above: Performed By: #### C BC #### [facility] [address] [place] [address] Dr. Cortez Younger IG % 0.6 % Critically high 0.0-0.5 [facility] Comment on above: Performed By: #### C BC #### [facility] [address] [address] [address] Cortez Younger LYMPH # 1.4 103/ul Normal 1.2-3.8 [facility] Comment on above: Performed By: #### C BC #### [facility] [address] [place] [address] Dr. Cortez Younger Lymphocytes/100 WBC (Bld) 20.7 % Normal 20.5-60.0 [facility] Comment on above: Performed By: #### C BC #### [facility] [address] [place] [address] Dr. Cortez Younger MANUAL DIFF REQ NO Normal [facility] Comment on above: Performed By: #### C BC #### [facility] [address] [place] [address] Dr. Cortez Younger MCH (RBC) [Entitic mass] 31.6 pg Normal 25.9-34.0 [facility] Comment on above: Performed By: #### C BC #### [facility] [address] [address] [address] Cortez Younger MCHC (RBC) [Mass/Vol] 35.7 g/dL Critically high 29.9-35.2 [facility] Comment on above: Performed By: #### C BC #### [facility] [address] [address] [address] Cortez Younger MCV (RBC) [Entitic vol] 88.5 fL Normal 80.0-94.0 [facility] Comment on above: Performed By: #### C BC #### [facility] [address] [place] [address] Dr. Cortez Younger MONO # 0.5 103/ul Normal 0.3-0.8 [facility] Comment on above: Performed By: #### C BC #### [facility] [address] [place] [address] Dr. Cortez Younger Monocytes/100 WBC (Bld) 7.7 % Normal 1.7-12.0 [facility] Comment on above: Performed By: #### C BC #### [facility] [address] [place] [address] Dr. Cortez Younger NEUT # 4.8 103/ul Normal 1.4-6.5 [facility] Comment on above: Performed By: #### C BC #### [facility] [address] [place] [address] Dr. Cortez Younger Neutrophils/100 WBC (Bld) 68.8 % Normal 43.0-75.0 [facility] Comment on above: Performed By: #### C BC #### [facility] [address] [place] [address] Dr. Cortez Younger Platelet mean volume (Bld) [Entitic vol] 9.0 fL Critically low 9.5-13.5 [facility] Comment on above: Performed By: #### C BC #### [facility] [address] [place] [address] Dr. Cortez Younger PLT 384 103/ul Normal 150-450 [facility] Comment on above: Performed By: #### C BC #### [facility] [address] [address] [address] Cortez Younger RBC 4.78 106/ul Normal 4.70-6.10 [facility] Comment on above: Performed By: #### C BC #### [facility] [address] [place] [address] Dr. Cortez Younger WBC 7.0 103/ul Normal 4.0-11.0 [facility] Comment on above: Performed By: #### C BC #### [facility] [address] [place] [address] Dr. Cortez Younger ER URINE PROFILEon 3 Bilirubin Ql (U) Negative Normal NEGATIVE [facility] Comment on above: Performed By: #### E RUR ####[facility] [address] [place], [place] [address]Dr. Cortez Younger Clarity (U) CLEAR Normal CLEAR [facility] Comment on above: Performed By: #### E RUR ####[facility] [address] [place], [place] [address]Dr. Cortez Younger Color (U) LT. YELLOW Normal YELLOW [facility] Comment on above: Performed By: #### E RUR ####[facility] [address] [place], [place] [address]Dr. Cortez Younger ERUAHD A micrscopic examina tion will be performed if indicated. Normal [facility] Comment on above: Performed By: #### E RUR ####[facility] [address] [place], [place] [address]Dr. Cortez Younger Glucose Ql (U) Negative Normal NEGATIVE [facility] Comment on above: Performed By: #### E RUR ####[facility] [address] [place], [place] [address]Dr. Cortez Younger Hemoglobin Ql (U) Negative Normal NEGATIVE [facility] Comment on above: Performed By: #### E RUR ####[facility] [address] [place], [place] [address]Dr. Cortez Younger Ketones Ql (U) Negative Normal NEGATIVE [facility] Comment on above: Performed By: #### E RUR ####[facility] [address] [address]Dr. Cortez Younger LEUKOCYTES Negative Normal NEGATIVE [facility] Comment on above: Performed By: #### E RUR ####[facility] [address] [place], [place] [address]Dr. Cortez Younger Nitrite Ql (U) Negative Normal NEGATIVE [facility] Comment on above: Performed By: #### E RUR ####[facility] [address] [place], [place] [address]Dr. Cortez Younger pH (U) 7.5 [pH] Normal 5-9 [facility] Comment on above: Performed By: #### E RUR ####[facility] [address] [place], [place] [address]Dr. Cortez Younger SPEC GRAVITY <=1.005 Abnormal 1.005-<=1.025 [facility] Comment on above: Performed By: #### E RUR ####[facility] [address] [place], [place] [address]Dr. Cortez Younger UA PROTEIN Negative Normal NEGATIVE/ TRACE [facility] Comment on above: Performed By: #### E RUR ####[facility] [address] [place], [place] [address]Dr. Cortez Younger UR MICRO IND NOT INDICATED Normal [facility] Comment on above: Performed By: #### E RUR ####[facility] [address] [place], [place] [address]Dr. Cortez Younger Urobilinogen Qn (U) 0.2 {Fidelia'U}/dL Normal 0.2 - 1. 0 [facility] Comment on above: Performed By: #### E RUR ####[facility] [address] [place], [place] [address]Dr. Cortez Younger LIPASEon 11-13-2022 Lipase [Catalytic activity/Vol] 111.0 U/L Normal 73.0-393.0 [facility] Comment on above: Performed By: #### A MY, CMP, LIPA ####[facility] [address] [address]Dr. Cortez Younger PROF 14(COMP METB)on 023 Albumin [Mass/Vol] 3.9 g/dL Normal 3.4-5.0 [facility] Comment on above: Performed By: #### A MY, CMP, LIPA ####[facility] [address] [address]Dr. Cortez Younger Albumin/Globulin [Mass ratio] 1.4 {ratio} Normal [facility] Comment on above: Performed By: #### A MY, CMP, LIPA ####[facility] [address] [address]Dr. Cortez Younger ALP [Catalytic activity/Vol] 70 U/L Normal 46-116 [facility] Comment on above: Performed By: #### A MY, CMP, LIPA ####[facility] [address] [place], [place] [address]Dr. Cortez Younger ALT [Catalytic activity/Vol] 24 U/L Normal 16-63 [facility] Comment on above: Performed By: #### A MY, CMP, LIPA ####[facility] [address] [address]Dr. Cortez Younger Anion gap [Moles/Vol] 9.8 mmol/L Normal [facility] Comment on above: Performed By: #### A MY, CMP, LIPA ####[facility] [address] [place], [place] [address]Dr. Cortez Younger AST [Catalytic activity/Vol] 12 U/L Critically low 15-37 [facility] Comment on above: Performed By: #### A MY, CMP, LIPA ####[facility] [address] [address]Dr. Cortez Younger Bilirubin [Mass/Vol] 0.3 mg/dL Normal 0.2-1.0 [facility] Comment on above: Performed By: #### A MY, CMP, LIPA ####[facility] [address] [address]Dr. Cortez Younger Calcium [Mass/Vol] 9.2 mg/dL Normal 8.5-10.[address] [facility] Comment on above: Performed By: #### A MY, CMP, LIPA ####[facility] [address] [address]Dr. Cortez Younger Chloride [Moles/Vol] 98 mmol/L Normal 98-107 [facility] Comment on above: Performed By: #### A MY, CMP, LIPA ####[facility] [address] [address]Dr. Cortez Younger CO2 [Moles/Vol] 28.7 mmol/L Normal 21.0-32.0 [facility] Comment on above: Performed By: #### A MY, CMP, LIPA ####[facility] [address] [place], [place] [address]Dr. Eleanorvalerie Aren Creatinine [Mass/Vol] 0.88 mg/dL Normal 0.70-1.30 [facility] Comment on above: Performed By: #### A MY, CMP, LIPA ####[facility] [address] [place], [place] [address]Dr. Cortez Aren EGFR-AF SAMMARINESE >60 Normal >=60 [facility] Comment on above: Performed By: #### A MY, CMP, LIPA ####[facility] [address] [place], [place] [address]Dr. Cortez Aren EGFR-NON AF SAMMARINESE >60 Normal >=60 [facility] Comment on above: Performed By: #### A MY, CMP, LIPA ####[facility] [address] [place], [place] [address]Dr. Cortez Aren Globulin (S) [Mass/Vol] 2.7 g/dL Normal [facility] Comment on above: Performed By: #### A MY, CMP, LIPA ####[facility] [address] [place], [place] [address]Dr. Eleanorvalerie Aren Glucose [Mass/Vol] 105 mg/dL Normal 74-[address] [facility] Comment on above: Performed By: #### A MY, CMP, LIPA ####[facility] [address] [place], [place] [address]Dr. Cortez Younger Potassium [Moles/Vol] 3.5 mmol/L Normal 3.5-5.1 [facility] Comment on above: Performed By: #### A MY, CMP, LIPA ####[facility] [address] [address]Dr. Cortez Younger Protein [Mass/Vol] 6.6 g/dL Normal 6.4-8.2 [facility] Comment on above: Performed By: #### A MY, CMP, LIPA ####[facility] [address] [address]Dr. Cortez Younger Sodium [Moles/Vol] 133 mmol/L Critically low 136-145 [facility] Comment on above: Performed By: #### A MY, CMP, LIPA ####[facility] [address] [address]Dr. Cortez Younger Urea nitrogen [Mass/Vol] 4.0 mg/dL Critically low 7.0-18.0 [facility] Comment on above: Performed By: #### A MY, CMP, LIPA ####[facility] [address] [address]Dr. Cortez Younger Urea nitrogen/Creatinine [Mass ratio] 4.5 mg/mg Normal [facility] Comment on above: Performed By: #### A MY, CMP, LIPA ####[facility] [address] [address]Dr. Cortez Younger XR ABD FLAT UP_PA Farideh [...] by: CRUZITO CRENSHAW Date: 2022-11-13 13:22 Normal [facility] FREE T4on 10-31-2022 Free T4 [Mass/Vol] 1.03 ng/dL Normal 0.76-1.46 [facility] Comment on above: Performed By: #### E RUR #### [facility] [id number] Cortez Younger LIPID PROFILEon 10-31-2022 CHOL-HDL RATIO NORM SEE BELOW Normal [facility] Comment on above: Result Comment: 3.3 - 4.4 LOW RISK 4.4 - 7.1 AVERAGE RISK 7.1 - 11.0 MODERATE RISK >11.0 HIGH RISK Performed By: #### E RUR #### [facility] [address] [address] [address] Cortez Younger Cholesterol [Mass/Vol] 165 mg/dL Normal <=200 [facility] Comment on above: Performed By: #### E RUR #### [facility] [address] [address] [address] Cortez Younger Cholesterol in HDL [Mass/Vol] 59 mg/dL Normal 40-60 [facility] Comment on above: Performed By: #### E RUR #### [facility] [address] [address] [address] Cortez Younger Cholesterol in LDL [Mass/Vol] 83.8 mg/dL Normal [facility] Comment on above: Performed By: #### E RUR #### [facility] [address] [place], [place] [address] Dr. Cortez Younger Cholesterol.total/C holesterol in HDL [Mass ratio] 2.8 {ratio} Normal [facility] Comment on above: Performed By: #### E RUR #### [facility] [address] [place], [place] [address] Dr. Cortez Younger HDL NORMAL > or = 60 mg/dl - LO W CARDIOVASCULAR RISK <40 mg/dl - HIGH CARDIOVASCULAR RISK Normal [facility] Comment on above: Performed By: #### E RUR #### [facility] [address] [place], [place] [address] Dr. Cortez Younger LDL CALC NORMAL SEE BELOW Normal [facility] Comment on above: Result Comment: <100 mg/dl OPTIMAL 100 - 129 mg/dl NEAR OR ABOVE OPTIMAL 130 - 159 mg/dl BORDERLINE HIGH 160 - 189 mg/dl HIGH >190 mg/dl VERY HIGH Performed By: #### E RUR #### [facility] [address] [place], [place] [address] Dr. Cortez Younger Triglyceride [Mass/Vol] 111 mg/dL Normal <=150 [facility] Comment on above: Performed By: #### E RUR #### [facility] [address] [place], [place] [address] Dr. Cortez Younger VLDL CALC 22.2 mg/dL Normal [facility] Comment on above: Performed By: #### E RUR #### [facility] [address] [place], [place] [address] Dr. Cortez Younger MRI BRAIN WO W [...] VERN LU Date: 2022-10-31 13:12 Normal [facility] PROF 14(COMP METB)on 023 Albumin [Mass/Vol] 4.0 g/dL Normal 3.4-5.0 [facility] Comment on above: Performed By: #### C MP ####[facility] [address] [address]Dr. Cortez Younger Albumin/Globulin [Mass ratio] 1.3 {ratio} Normal [facility] Comment on above: Performed By: #### C MP ####[facility] [address] [address]Dr. Cortez Younger ALP [Catalytic activity/Vol] 66 U/L Normal 46-116 [facility] Comment on above: Performed By: #### C MP ####[facility] [address] [place], [place] [address]Dr. Cortez Younger ALT [Catalytic activity/Vol] 21 U/L Normal 16-63 [facility] Comment on above: Performed By: #### C MP ####[facility] [address] [place], [place] [address]Dr. Cortez Younger Anion gap [Moles/Vol] 9.4 mmol/L Normal [facility] Comment on above: Performed By: #### C MP ####[facility] [address] [place], [place] [address]Dr. Cortez Younger AST [Catalytic activity/Vol] 10 U/L Critically low 15-37 [facility] Comment on above: Performed By: #### C MP ####[facility] [address] [place], [place] [address]Dr. Cortez Younger Bilirubin [Mass/Vol] 0.4 mg/dL Normal 0.2-1.0 [facility] Comment on above: Performed By: #### C MP ####[facility] [address] [place], [place] [address]Dr. Cortez Younger Calcium [Mass/Vol] 9.1 mg/dL Normal 8.5-10.[address] [facility] Comment on above: Performed By: #### C MP ####[facility] [address] [place], [place] [address]Dr. Cortez Younger Chloride [Moles/Vol] 98 mmol/L Normal 98-107 [facility] Comment on above: Performed By: #### C MP ####[facility] [address] [id number]. Cortez Younger CO2 [Moles/Vol] 29.8 mmol/L Normal 21.0-32.0 [facility] Comment on above: Performed By: #### C MP ####[facility] [address] [place] [id number]. Cortez Younger Creatinine [Mass/Vol] 0.89 mg/dL Normal 0.70-1.30 [facility] Comment on above: Performed By: #### C MP ####[facility] [address] [place] [id number]. Cortez Younger EGFR-AF SAMMARINESE >60 Normal >=60 [facility] Comment on above: Performed By: #### C MP ####[facility] [address] [place] [address]Dr. Cortez Younger EGFR-NON AF SAMMARINESE >60 Normal >=60 [facility] Comment on above: Performed By: #### C MP ####[facility] [address] [place] [address]Dr. Cortez Younger Globulin (S) [Mass/Vol] 3.1 g/dL Normal [facility] Comment on above: Performed By: #### C MP ####[facility] [address] [place] [address]Dr. Cortez Younger Glucose [Mass/Vol] 109 mg/dL Critically high 74-106 [facility] Comment on above: Performed By: #### C MP ####[facility] [address] [place] [id number]. Cortez Younger Potassium [Moles/Vol] 4.2 mmol/L Normal 3.5-5.1 [facility] Comment on above: Performed By: #### C MP ####[facility] [address] [place] [address]Dr. Cortez Younger Protein [Mass/Vol] 7.1 g/dL Normal 6.4-8.2 [facility] Comment on above: Performed By: #### C MP ####[facility] [address] [place] [id number]. Cortez Younger Sodium [Moles/Vol] 133 mmol/L Critically low 136-145 [facility] Comment on above: Performed By: #### C MP ####[facility] [address] [place], [place] [address]Ov. Cortez Younger Urea nitrogen [Mass/Vol] 7.0 mg/dL Normal 7.0-18.0 [facility] Comment on above: Performed By: #### C MP ####[facility] [address] [place] [id number]. Cortez Younger Urea nitrogen/Creatinine [Mass ratio] 7.9 mg/mg Normal [facility] Comment on above: Performed By: #### C MP ####[facility] [address] [place] [address]Dr. Cortez Younger TSHon 10-31-2022 TSH 1.574 uIU/mL Normal 0.358-3.740 [facility] Comment on above: Performed By: #### T SH #### [facility] [address] [address] [address] Cortez Younger COMPLIANCE DRUG SCREENon PDF . Normal [facility] Comment on above: Performed By: #### E RUR #### [facility] [address] [address] [address] Cortez Younger Summary FINAL [facility] Comment on above: Result Comment: == [...] test is not intended to distinguish between xccqk-[id number], the predominant form of THC in most herbal or marijuana-based products, and qivyv-5-mvptyefeyzoaeophvtdy. Norhydrocodone 1620 ng/mg creat Norhydrocodone is an [...] == Performed By: #### E RUR #### [facility] [address] [address] [address] Cortez Younger HYDROCODONE AND METABOLITE, URINEon 10-24-2022 Hydrocodone 55 ng/mL Normal [facility] Comment on above: Performed By: #### E RUR #### [facility] [address] [place] [address] Dr. Cortez Younger Hydromorphone Negative Normal [facility] Comment on above: Result Comment: This test was developed and its performance characteristics determined by [employer]. It has not been cleared or approved by the Food and Drug Administration. Performed By: #### E RUR #### [facility] [address] [place] [address] Dr. Cortez Younger OSMOLALITYon 10-20-2022 Osmolality QNSREP Normal [facility] Comment on above: Result Comment: Spec imen quantity insufficient for verification by repeat analysis. contacted Lynda at your facility on 10-20-2022 Performed By: #### C BC #### [facility] [address] [place] [address] Dr. Cortez Younger OSMOLALITY URINEon 3 Osmolality, Urine 119 mOsmol/kg Normal [facility] Comment on above: Result Comment: 24 h r : 300 - 900 Random: 50 - 1400 After 12hr fluid restriction: >850 Performed By: #### O SMOU ####[facility] [address] [place] [address]Dr. Cortez Younger CBC AUTO DIFFon 10-16-2022 BASO # 0.0 103/ul Normal 0.0-0.1 [facility] Comment on above: Performed By: #### C BC ####[facility] [address] [place] [address]Dr. Cortez Younger Basophils/100 WBC (Bld) 0.3 % Normal 0.2-2.0 [facility] Comment on above: Performed By: #### C BC ####[facility] [address] [place] [address]Dr. Cortez Younger EO # 0.0 103/ul Normal 0.0-0.7 [facility] Comment on above: Performed By: #### C BC ####[facility] [address] [place] [address]Dr. Cortez Younger Eosinophils/100 WBC (Bld) 0.2 % Critically low 0.9-7.0 [facility] Comment on above: Performed By: #### C BC ####[facility] [address] [place], [place] [address]Dr. Cortez Younger Erythrocyte distribution width (RBC) [Ratio] 12.1 % Normal 11.0-15.0 [facility] Comment on above: Performed By: #### C BC ####[facility] [address] [place], [place] [address]Dr. Cortez Younger Hematocrit (Bld) [Volume fraction] 45.9 % Normal 42.0-54.0 [facility] Comment on above: Performed By: #### C BC ####[facility] [address] [place], [place] [address]Dr. Cortez Younger Hemoglobin (Bld) [Mass/Vol] 16.7 g/dL Normal 14.0-18.0 [facility] Comment on above: Performed By: #### C BC ####[facility] [address] [place], [place] [address]Dr. Cortez Younger IG # 0.06 10e3/ul Critically high 0.00-0.03 [facility] Comment on above: Performed By: #### C BC ####[facility] [address] [place], [place] [address]Dr. Cortez Younger IG % 0.5 % Normal 0.0-0.5 [facility] Comment on above: Performed By: #### C BC ####[facility] [address] [place] [address]Dr. Cortez Aren LYMPH # 1.5 103/ul Normal 1.2-3.8 [facility] Comment on above: Performed By: #### C BC ####[facility] [address] [place] [address]Dr. Eleanorvalerie Younger Lymphocytes/100 WBC (Bld) 13.5 % Critically low 20.5-60.0 [facility] Comment on above: Performed By: #### C BC ####[facility] [address] [place] [address]Dr. Cortez Younger MANUAL DIFF REQ NO Normal [facility] Comment on above: Performed By: #### C BC ####[facility] [address] [place] [address]Dr. Cortez Aren MCH (RBC) [Entitic mass] 31.2 pg Normal 25.9-34.0 [facility] Comment on above: Performed By: #### C BC ####[facility] [address] [place], [place] [address]Dr. Eleanorvalerie Younger MCHC (RBC) [Mass/Vol] 36.4 g/dL Critically high 29.9-35.2 [facility] Comment on above: Performed By: #### C BC ####[facility] [address] [place] [address]Dr. Cortez Younger MCV (RBC) [Entitic vol] 85.6 fL Normal 80.0-94.0 [facility] Comment on above: Performed By: #### C BC ####[facility] [address] [place] [address]Dr. Cortez Younger MONO # 0.6 103/ul Normal 0.3-0.8 [facility] Comment on above: Performed By: #### C BC ####[facility] [address] [place], [place] [address]Dr. Cortez Younger Monocytes/100 WBC (Bld) 5.4 % Normal 1.7-12.0 [facility] Comment on above: Performed By: #### C BC ####[facility] [address] [place], [place] [address]Bt. Cortez Younger NEUT # 8.9 103/ul Critically high 1.4-6.5 [facility] Comment on above: Performed By: #### C BC ####[facility] [address] [place] [id number]. Cortez Younger Neutrophils/100 WBC (Bld) 80.1 % Critically high 43.0-75.0 [facility] Comment on above: Performed By: #### C BC ####[facility] [address] [place] [phone]. Cortez Younger Platelet mean volume (Bld) [Entitic vol] 9.7 fL Normal 9.5-13.5 [facility] Comment on above: Performed By: #### C BC ####[facility] [address] [place] [id number]. oCrtez Younger PLT 364 103/ul Normal 150-450 [facility] Comment on above: Performed By: #### C BC ####[facility] [address] [place] [phone]. Cortez Younger RBC 5.36 106/ul Normal 4.70-6.10 [facility] Comment on above: Performed By: #### C BC ####[facility] [address] [place] [phone]. Cortez Younger WBC 11.1 103/ul Critically high 4.0-11.0 [facility] Comment on above: Performed By: #### C BC ####[facility] [address] [place], [place] [id number]. Cortez Younger [facility]on SARS-CoV-2 (COVID-19) RNA AXEL+probe Ql (Unsp spec) Not detected Normal NOT DETECTED [facility] Comment on above: Result Comment: When [...] for this test is supported by the [place] of Health and Human Service's declaration that [...] longer be used). Performed By: #### C VDTBH ####[facility] [address] [place] [address]Dr. Cortez Younger DRUG SCREEN RAPID (URINE)on 10-16-2022 AMP Negative Normal NEGATIVE [facility] Comment on above: Performed By: #### C BC #### [facility] [address] [place] [address] Dr. Cortez Younger BAR Positive Abnormal NEGATIVE [facility] Comment on above: Performed By: #### C BC #### [facility] [address] [address] [address] Cortez Younger BUP Negative Normal NEGATIVE [facility] Comment on above: Performed By: #### C BC #### [facility] [address] [place] [address] Dr. Cortez Younger BZO Positive Abnormal NEGATIVE [facility] Comment on above: Performed By: #### C BC #### [facility] [address] [place] [address] Dr. Cortez Younger OK Negative Normal NEGATIVE [facility] Comment on above: Performed By: #### C BC #### [facility] [address] [place] [address] Dr. Cortez Younger CUT-OFFS SEE BELOW Normal [facility] Comment on above: Result Comment: AMP [...] ng/mL Performed By: #### C BC #### [facility] [address] [place] [address] Dr. Cortez Younger DRUG CUT HEADER DRUG CLASS TEST SYST EM CUT-OFF CONCENTRATIONS ARE FOLLOWS: Normal [facility] Comment on above: Performed By: #### C BC #### [facility] [address] [place] [address] Dr. Cortez Younger mAMP Negative Normal NEGATIVE [facility] Comment on above: Performed By: #### C BC #### [facility] [address] [place] [address] Dr. Cortez Younger MTD Negative Normal NEGATIVE [facility] Comment on above: Performed By: #### C BC #### [facility] [address] [place] [address] Dr. Cortez Younger OPI Positive Abnormal NEGATIVE [facility] Comment on above: Performed By: #### C BC #### [facility] [address] [place] [address] Dr. Cortez Younger OXY Negative Normal NEGATIVE [facility] Comment on above: Performed By: #### C BC #### [facility] [address] [place] [address] Dr. Cortez Younger PCP Negative Normal NEGATIVE [facility] Comment on above: Performed By: #### C BC #### [facility] [address] [place] [address] Dr. Cortez Younger PPX Negative Normal NEGATIVE [facility] Comment on above: Performed By: #### C BC #### [facility] [address] [place] [address] Dr. Cortez Younger TCA Negative Normal NEGATIVE [facility] Comment on above: Performed By: #### C BC #### [facility] [address] [place] [address] Dr. Cortez Younger THC Positive Abnormal NEGATIVE [facility] Comment on above: Performed By: #### C BC #### [facility] [address] [place] [address] Dr. Cortez Younger ER URINE PROFILEon 3 Bilirubin Ql (U) Negative Normal NEGATIVE [facility] Comment on above: Performed By: #### C BC #### [facility] [address] [place] [address] Dr. Cortez Younger Clarity (U) CLEAR Normal CLEAR [facility] Comment on above: Performed By: #### C BC #### [facility] [address] [place] [address] Dr. Cortez Yougner Color (U) LT. YELLOW Normal YELLOW [facility] Comment on above: Performed By: #### C BC #### [facility] [address] [place] [address] Dr. Cortez Younger ERUAHD A micrscopic examina tion will be performed if indicated. Normal [facility] Comment on above: Performed By: #### C BC #### [facility] [address] [place] [address] Dr. Cortez Younger Glucose Ql (U) Negative Normal NEGATIVE [facility] Comment on above: Performed By: #### C BC #### [facility] [address] [place] [address] Dr. Cortez Younger Hemoglobin Ql (U) Negative Normal NEGATIVE [facility] Comment on above: Performed By: #### C BC #### [facility] [address] [place] [address] Dr. Cortez Younger Ketones Ql (U) Negative Normal NEGATIVE [facility] Comment on above: Performed By: #### C BC #### [facility] [address] [place] [address] Dr. Cortez Younger LEUKOCYTES Negative Normal NEGATIVE [facility] Comment on above: Performed By: #### C BC #### [facility] [address] [place] [address] Dr. Cortez Younger Nitrite Ql (U) Negative Normal NEGATIVE [facility] Comment on above: Performed By: #### C BC #### [facility] [address] [address] [address] Cortez Younger pH (U) 7.5 [pH] Normal 5-9 [facility] Comment on above: Performed By: #### C BC #### [facility] [address] [address] [address] Cortez Younger SPEC GRAVITY <=1.005 Abnormal 1.005-<=1.025 [facility] Comment on above: Performed By: #### C BC #### [facility] [address] [address] [address] Cortez Younger UA PROTEIN Negative Normal NEGATIVE/ TRACE [facility] Comment on above: Performed By: #### C BC #### [facility] [address] [place] [address] Dr. Cortez Younger UR MICRO IND NOT INDICATED Normal [facility] Comment on above: Performed By: #### C BC #### [facility] [address] [address] [address] Cortez Younger Urobilinogen Qn (U) 0.2 {Fidelia'U}/dL Normal 0.2 - 1. 0 [facility] Comment on above: Performed By: #### C BC #### [facility] [address] [place] [address] Dr. Cortez Younger NAon 10-16-2022 Sodium [Moles/Vol] 125 mmol/L Critically low 136-145 [facility] Comment on above: Performed By: #### E RUR #### [facility] [address] [address] [address] Cortez Younger POTASSIUM URINEon 10-16-2022 UR POTASSIUM 11.8 mmol/L Normal [facility] Comment on above: Performed By: #### K U ####[facility] [address] [address]Dr. Cortez Younger PROF 14(COMP METB)on 023 Albumin [Mass/Vol] 4.2 g/dL Normal 3.4-5.0 [facility] Comment on above: Performed By: #### E RUR #### [facility] [address] [place] [address] Dr. Cortez Younger Albumin/Globulin [Mass ratio] 1.3 {ratio} Normal [facility] Comment on above: Performed By: #### E RUR #### [facility] [address] [place] [address] Dr. Cortez Younger ALP [Catalytic activity/Vol] 75 U/L Normal 46-116 [facility] Comment on above: Performed By: #### E RUR #### [facility] [address] [place] [address] Dr. Cortez Younger ALT [Catalytic activity/Vol] 23 U/L Normal 16-63 [facility] Comment on above: Performed By: #### E RUR #### [facility] [address] [place] [address] Dr. Cortez Younger Anion gap [Moles/Vol] 9.7 mmol/L Normal [facility] Comment on above: Performed By: #### E RUR #### [facility] [address] [place] [address] Dr. Cortez Younger AST [Catalytic activity/Vol] 16 U/L Normal 15-37 [facility] Comment on above: Performed By: #### E RUR #### [facility] [address] [place] [address] Dr. Cortez Younger Bilirubin [Mass/Vol] 0.4 mg/dL Normal 0.2-1.0 [facility] Comment on above: Performed By: #### E RUR #### [facility] [address] [place] [address] Dr. Cortez Younger Calcium [Mass/Vol] 9.1 mg/dL Normal 8.5-10.[address] [facility] Comment on above: Performed By: #### E RUR #### [facility] [address] [place] [address] Dr. Cortez Younger Chloride [Moles/Vol] 88 mmol/L Critically low 98-107 [facility] Comment on above: Performed By: #### E RUR #### [facility] [address] [place] [address] Dr. Cortez Younger CO2 [Moles/Vol] 26.5 mmol/L Normal 21.0-32.0 [facility] Comment on above: Performed By: #### E RUR #### [facility] [address] [place] [address] Dr. Cortez Younger Creatinine [Mass/Vol] 0.73 mg/dL Normal 0.70-1.30 [facility] Comment on above: Performed By: #### E RUR #### [facility] [address] [place] [address] Dr. Cortez Younger EGFR-AF SAMMARINESE >60 Normal >=60 [facility] Comment on above: Performed By: #### E RUR #### [facility] [address] [place] [address] Dr. Cortez Younger EGFR-NON AF SAMMARINESE >60 Normal >=60 [facility] Comment on above: Performed By: #### E RUR #### [facility] [address] [place] [address] Dr. Cortez Younger Globulin (S) [Mass/Vol] 3.2 g/dL Normal [facility] Comment on above: Performed By: #### E RUR #### [facility] [address] [place] [address] Dr. Cortez Younger Glucose [Mass/Vol] 109 mg/dL Critically high 74-106 [facility] Comment on above: Performed By: #### E RUR #### [facility] [address] [place] [address] Dr. Cortez Younger Potassium [Moles/Vol] 4.2 mmol/L Normal 3.5-5.1 [facility] Comment on above: Performed By: #### E RUR #### [facility] [address] [place] [address] Dr. Cortez Younger Protein [Mass/Vol] 7.4 g/dL Normal 6.4-8.[address] [facility] Comment on above: Performed By: #### E RUR #### [facility] [address] [place] [address] Dr. Cortez Younger Sodium [Moles/Vol] 120 mmol/L Critically low 136-145 [facility] Comment on above: Performed By: #### E RUR #### [facility] [address] [place] [address] Dr. Cortez Younger Urea nitrogen [Mass/Vol] 7.0 mg/dL Normal 7.0-18.0 [facility] Comment on above: Performed By: #### E RUR #### [facility] [address] [place] [address] Dr. Cortez Younger Urea nitrogen/Creatinine [Mass ratio] 9.6 mg/mg Normal [facility] Comment on above: Performed By: #### E RUR #### [facility] [address] [place] [address] Dr. Cortez Younger SODIUM RANDOM URINEon 2022 Sodium (U) [Moles/Vol] 26 mmol/L Critically low 30-90 [facility] Comment on above: Performed By: #### N AU ####[facility] [address] [place], [place] [address]Dr. Cortez Younger ACETONE SERUMon 10-07-2022 ACETONE Negative Normal NEGATIVE [facility] Comment on above: Performed By: #### E RUR #### [facility] [address] [place] [address] Dr. Cortez Younger CBC AUTO DIFFon 10-07-2022 BASO # 0.1 103/ul Normal 0.0-0.1 [facility] Comment on above: Performed By: #### C BC ####[facility] [address] [place], [place] [address]DrFish Younger Basophils/100 WBC (Bld) 0.8 % Normal 0.2-2.0 [facility] Comment on above: Performed By: #### C BC ####[facility] [address] [place], [place] [address]DrFish Younger EO # 0.0 103/ul Normal 0.0-0.7 [facility] Comment on above: Performed By: #### C BC ####[facility] [address] [place], [place] [address]Dr. Cortez Younger Eosinophils/100 WBC (Bld) 0.2 % Critically low 0.9-7.0 [facility] Comment on above: Performed By: #### C BC ####[facility] [address] [place] [address]Dr. Cortez Younger Erythrocyte distribution width (RBC) [Ratio] 12.1 % Normal 11.0-15.0 [facility] Comment on above: Performed By: #### C BC ####[facility] [address] [place], [place] [address]Dr. Cortez Younger Hematocrit (Bld) [Volume fraction] 42.9 % Normal 42.0-54.0 [facility] Comment on above: Performed By: #### C BC ####[facility] K[address] [place], [place] [address]Dr. Cortez Younger Hemoglobin (Bld) [Mass/Vol] 15.4 g/dL Normal 14.0-18.0 [facility] Comment on above: Performed By: #### C BC ####[facility] Hss[address] [place], [place] [address]Dr. Cortez Younger IG # 0.04 10e3/ul Critically high 0.00-0.03 [facility] Comment on above: Performed By: #### C BC ####[facility] [address] [place], [place] [address]Dr. Cortez Younger IG % 0.4 % Normal 0.0-0.5 [facility] Comment on above: Performed By: #### C BC ####[facility] [address] [place], [place] [address]Dr. Cortez Younger LYMPH # 1.3 103/ul Normal 1.2-3.8 [facility] Comment on above: Performed By: #### C BC ####[facility] F[address] [place], [place] [address]Dr. Cortez Younger Lymphocytes/100 WBC (Bld) 13.7 % Critically low 20.5-60.0 [facility] Comment on above: Performed By: #### C BC ####[facility] [address] [address]Dr. Cortez Aren MANUAL DIFF REQ NO Normal The [facility] Comment on above: Performed By: #### C BC ####[facility] [address] [address]Dr. Cortez Younger MCH (RBC) [Entitic mass] 31.4 pg Normal 25.9-34.0 [facility] Comment on above: Performed By: #### C BC ####[facility] [address] [place] [address]Dr. Cortez Aren MCHC (RBC) [Mass/Vol] 35.9 g/dL Critically high 29.9-35.2 [facility] Comment on above: Performed By: #### C BC ####[facility] [address] [place] [address]Dr. Eleanorvalerie Younger MCV (RBC) [Entitic vol] 87.4 fL Normal 80.0-94.0 [facility] Comment on above: Performed By: #### C BC ####[facility] [address] [place], [place] [address]Dr. Cortez Aren MONO # 0.4 103/ul Normal 0.3-0.8 [facility] Comment on above: Performed By: #### C BC ####[facility] C[address] [place], [place] [address]Dr. Eleanorvalerie Younger Monocytes/100 WBC (Bld) 3.6 % Normal 1.7-12.0 [facility] Comment on above: Performed By: #### C BC ####[facility] [address] [place] [address]Dr. Cortez Younger NEUT # 7.9 103/ul Critically high 1.4-6.5 [facility] Comment on above: Performed By: #### C BC ####[facility] Eq[address] [place], [place] [address]Dr. Cortez Younger Neutrophils/100 WBC (Bld) 81.3 % Critically high 43.0-75.0 [facility] Comment on above: Performed By: #### C BC ####[facility] [address] [address]Dr. Cortez Younger Platelet mean volume (Bld) [Entitic vol] 8.8 fL Critically low 9.5-13.5 [facility] Comment on above: Performed By: #### C BC ####[facility] [address] [address]Dr. Cortez Younger PLT 371 103/ul Normal 150-450 [facility] Comment on above: Performed By: #### C BC ####[facility] [address] [place] [address]Dr. Cortez Younger RBC 4.91 106/ul Normal 4.70-6.10 [facility] Comment on above: Performed By: #### C BC ####[facility] [address] [place] [address]Dr. Cortez Younger WBC 9.8 103/ul Normal 4.0-11.0 [facility] Comment on above: Performed By: #### C BC ####[facility] [address] [place] [address]Dr. Cortez Younger CRPon 10-07-2022 CRP [Mass/Vol] mg/L Normal <=1.0 The [facility] Comment on above: Performed By: #### L IPA, TSH, CRP, CMP ####[facility] [address] [place] [id number]. Cortez Younger ER URINE PROFILEon 3 Bilirubin Ql (U) Negative Normal NEGATIVE The [facility] Comment on above: Performed By: #### E RUR #### [facility] [address] [place] [address] Dr. Cortez Younger Clarity (U) CLEAR Normal CLEAR [facility] Comment on above: Performed By: #### E RUR #### [facility] [address] [place] [address] Dr. Cortez Younger Color (U) LT. YELLOW Normal YELLOW [facility] Comment on above: Performed By: #### E RUR #### [facility] [address] [place] [address] Dr. Cortez PRESTON A micrscopic examina tion will be performed if indicated. Normal [facility] Comment on above: Performed By: #### E RUR #### [facility] [address] [place] [address] Dr. Cortez Younger Glucose Ql (U) Negative Normal NEGATIVE [facility] Comment on above: Performed By: #### E RUR #### [facility] [address] [place] [address] Dr. Cortez Younger Hemoglobin Ql (U) Negative Normal NEGATIVE [facility] Comment on above: Performed By: #### E RUR #### [facility] [address] [place] [address] Dr. Cortez Younger Ketones Ql (U) Negative Normal NEGATIVE [facility] Comment on above: Performed By: #### E RUR #### [facility] [address] [place] [address] Dr. Cortez Younger LEUKOCYTES Negative Normal NEGATIVE [facility] Comment on above: Performed By: #### E RUR #### [facility] [address] [place] [address] Dr. Cortez Younger Nitrite Ql (U) Negative Normal NEGATIVE [facility] Comment on above: Performed By: #### E RUR #### [facility] [address] [place] [address] Dr. Cortez Younger pH (U) 7.5 [pH] Normal 5-9 [facility] Comment on above: Performed By: #### E RUR #### [facility] [address] [place] [address] Dr. Cortez Younger SPEC GRAVITY <=1.005 Abnormal 1.005-<=1.025 [facility] Comment on above: Performed By: #### E RUR #### [facility] [address] [place] [address] Dr. Cortez Younger UA PROTEIN Negative Normal NEGATIVE/ TRACE [facility] Comment on above: Performed By: #### E RUR #### [facility] [address] [place] [address] Dr. Cortez Younger UR MICRO IND NOT INDICATED Normal [facility] Comment on above: Performed By: #### E RUR #### [facility] [address] [address] [address] Cortez Younger Urobilinogen Qn (U) 0.2 {Fidelia'U}/dL Normal 0.2 - 1. 0 [facility] Comment on above: Performed By: #### E RUR #### [facility] [address] [address] [address] Cortez Younger LACTATE/LACTIC ACIDon 2022 Lactate [Moles/Vol] 1.0 mmol/L Normal 0.4-2.0 [facility] Comment on above: Performed By: #### E RUR #### [facility] [address] [address] [address] Cortez Younger LIPASEon 10-07-2022 Lipase [Catalytic activity/Vol] 84.0 U/L Normal 73.0-393.0 [facility] Comment on above: Performed By: #### L IPA, TSH, CRP, CMP ####[facility] [address] [place] [address]DrFish Younger PROF 14(COMP METB)on 023 Albumin [Mass/Vol] 3.9 g/dL Normal 3.4-5.0 [facility] Comment on above: Performed By: #### L IPA, TSH, CRP, CMP ####[facility] [address] [place] [address]DrFish Younger Albumin/Globulin [Mass ratio] 1.7 {ratio} Normal [facility] Comment on above: Performed By: #### L IPA, TSH, CRP, CMP ####[facility] [address] [place] [id number] Younger ALP [Catalytic activity/Vol] 78 U/L Normal 46-116 [facility] Comment on above: Performed By: #### L IPA, TSH, CRP, CMP ####[facility] [address] [place] [id number] Younger ALT [Catalytic activity/Vol] 28 U/L Normal 16-63 [facility] Comment on above: Performed By: #### L IPA, TSH, CRP, CMP ####[facility] [address] [place] [address]Dr. Cortez Younger Anion gap [Moles/Vol] 12.1 mmol/L Normal [facility] Comment on above: Performed By: #### L IPA, TSH, CRP, CMP ####[facility] [address] [place] [address]Dr. Cortez Younger AST [Catalytic activity/Vol] 15 U/L Normal 15-37 [facility] Comment on above: Performed By: #### L IPA, TSH, CRP, CMP ####[facility] [address] [place], [place] [address]Dr. Cortez Younger Bilirubin [Mass/Vol] 0.5 mg/dL Normal 0.2-1.0 [facility] Comment on above: Performed By: #### L IPA, TSH, CRP, CMP ####[facility] [address] [place], [place] [address]Dr. Cortez Younger Calcium [Mass/Vol] 8.6 mg/dL Normal 8.5-10.1 [facility] Comment on above: Performed By: #### L IPA, TSH, CRP, CMP ####[facility] [address] [place], [place] [address]Dr. Cortez Younger Chloride [Moles/Vol] 100 mmol/L Normal 98-107 [facility] Comment on above: Performed By: #### L IPA, TSH, CRP, CMP ####[facility] [address] [place], [place] [address]Dr. Cortez Younger CO2 [Moles/Vol] 28.8 mmol/L Normal 21.0-32.0 The [facility] Comment on above: Performed By: #### L IPA, TSH, CRP, CMP ####[facility] [address] [place], [place] [address]Dr. Cortez Younger Creatinine [Mass/Vol] 0.70 mg/dL Normal 0.70-1.30 [facility] Comment on above: Performed By: #### L IPA, TSH, CRP, CMP ####[facility] [address] [place] [id number]. Cortez Younger EGFR-AF SAMMARINESE >60 Normal >=60 [facility] Comment on above: Performed By: #### L IPA, TSH, CRP, CMP ####[facility] [address] [place] [id number]. Cortez Younger EGFR-NON AF SAMMARINESE >60 Normal >=60 [facility] Comment on above: Performed By: #### L IPA, TSH, CRP, CMP ####[facility] [address] [place] [phone]. Cortez Younger Globulin (S) [Mass/Vol] 2.3 g/dL Normal [facility] Comment on above: Performed By: #### L IPA, TSH, CRP, CMP ####[facility] [address] [place] [address]Dr. Cortez Younger Glucose [Mass/Vol] 111 mg/dL Critically high 74-106 [facility] Comment on above: Performed By: #### L IPA, TSH, CRP, CMP ####[facility] [address] [place] [address]Dr. Cortez Younger Potassium [Moles/Vol] 3.9 mmol/L Normal 3.5-5.1 [facility] Comment on above: Performed By: #### L IPA, TSH, CRP, CMP ####[facility] [address] [place] [address]Dr. Cortez Younger Protein [Mass/Vol] 6.2 g/dL Critically low 6.4-8.2 [facility] Comment on above: Performed By: #### L IPA, TSH, CRP, CMP ####[facility] [address] [place] [address]Dr. Cortez Younger Sodium [Moles/Vol] 137 mmol/L Normal 136-145 [facility] Comment on above: Performed By: #### L IPA, TSH, CRP, CMP ####[facility] [address] [place] [address]Dr. Cortez Younger Urea nitrogen [Mass/Vol] 6.0 mg/dL Critically low 7.0-18.0 [facility] Comment on above: Performed By: #### L IPA, TSH, CRP, CMP ####[facility] [address] [place], [place] [address]WlFish Younger Urea nitrogen/Creatinine [Mass ratio] 8.6 mg/mg Normal [facility] Comment on above: Performed By: #### L IPA, TSH, CRP, CMP ####[facility] [address] [place], [place] [address]TjDr. Cortez Younger SED RATE WESTERGRENon 2022 SED RATE <1 Normal <=20 [facility] Comment on above: Performed By: #### C BC #### [facility] [address] [place], [place] [address] Dr. Cortez Younger TSHon 10-07-2022 TSH 1.031 uIU/mL Normal 0.358-3.740 The [facility] Comment on above: Performed By: #### L IPA, TSH, CRP, CMP ####[facility] [address] [place], [place] [address]XzFish Younger [facility]-13 SARS-CoV-2 (COVID-19) RNA AXEL+probe Ql (Unsp spec) Not detected Normal NOT DETECTED [facility] Comment on above: Result Comment: When [...] for this test is supported by the Manager Supply Chain Planning of Health and Human Service's declaration that [...] used). Performed By: #### C BC #### [facility] [address] [place] [address] Dr. Cortez Younger INFLUENZA A AND B AGon 05-28 [facility] SEE BELOW Normal [facility] Comment on above: Result Comment: Nega tive for Flu A protein angiten. Infection due to Flu A cannot be ruled out. Flu A angiten in the sample may be below the detection limit of the test. Performed By: #### E RUR #### [facility] [address] [place] [address] Dr. Cortez Younger [facility] SEE BELOW Normal [facility] Comment on above: Result Comment: Nega tive for Flu B protein antigen. Infection due to Flu B cannot be ruled out. Flu B antigen in the sample may be below the detection limit of the test. Performed By: #### E RUR #### [facility] [address] [place] [address] Dr. Cortez Younger INFLUENZA A AG Negative Normal NEGATIVE SEE COMMENT [facility] Comment on above: Performed By: #### E RUR #### [facility] [address] [place] [address] Dr. Cortez Younger INFLUENZA B AG Negative Normal NEGATIVE SEE COMMENT [facility] Comment on above: Performed By: #### E RUR #### [facility] [address] [place] [address] Dr. Cortez Younger INTERNAL CONTROLS Within Normal Limits Normal Wi thin Normal Limits [facility] Comment on above: Performed By: #### E RUR #### [facility] [address] [place] [address] Dr. Cortez Younger XR CHEST 1 Von [...] KAIA SHEIKH Date: 2022-05-28 13:36 Normal [facility] PROF 14(COMP METB)on 022 Albumin [Mass/Vol] 3.9 g/dL Normal 3.4-5.0 [facility] Comment on above: Performed By: #### C MP #### [facility] [address] [place] [address] Dr. Cortez Younger Albumin/Globulin [Mass ratio] 1.4 {ratio} Normal [facility] Comment on above: Performed By: #### C MP #### [facility] [address] [place] [address] Dr. Cortez Younger ALP [Catalytic activity/Vol] 81 U/L Normal 46-116 [facility] Comment on above: Performed By: #### C MP #### [facility] [address] [place] [address] Dr. Cortez Younger ALT [Catalytic activity/Vol] 19 U/L Normal 16-63 [facility] Comment on above: Performed By: #### C MP #### [facility] [address] [address] [address] Cortez Younger Anion gap [Moles/Vol] 12.3 mmol/L Normal [facility] Comment on above: Performed By: #### C MP #### [facility] [address] [place] [address] Dr. Cortez Younger AST [Catalytic activity/Vol] 15 U/L Normal 15-37 [facility] Comment on above: Performed By: #### C MP #### [facility] [address] [place] [address] Dr. Cortez Younger Bilirubin [Mass/Vol] 0.3 mg/dL Normal 0.2-1.0 [facility] Comment on above: Performed By: #### C MP #### [facility] [address] [place] [address] Dr. Cortez Younger Calcium [Mass/Vol] 8.6 mg/dL Normal 8.5-10.[address] [facility] Comment on above: Performed By: #### C MP #### [facility] [address] [place] [address] Dr. Cortez Younger Chloride [Moles/Vol] 101 mmol/L Normal 98-107 [facility] Comment on above: Performed By: #### C MP #### [facility] [address] [address] [address] Cortez Younger CO2 [Moles/Vol] 30.6 mmol/L Normal 21.0-32.0 [facility] Comment on above: Performed By: #### C MP #### [facility] [address] [address] [address] Cortez Younger Creatinine [Mass/Vol] 0.75 mg/dL Normal 0.70-1.30 [facility] Comment on above: Performed By: #### C MP #### [facility] [address] [place] [address] Dr. Cortez Younger EGFR-AF SAMMARINESE >60 Normal >=60 [facility] Comment on above: Performed By: #### C MP #### [facility] [address] [place] [address] Dr. Cortez Younger EGFR-NON AF SAMMARINESE >60 Normal >=60 [facility] Comment on above: Performed By: #### C MP #### [facility] [address] [place] [address] Dr. Cortez Younger Globulin (S) [Mass/Vol] 2.8 g/dL Normal [facility] Comment on above: Performed By: #### C MP #### [facility] [address] [place] [address] Dr. Cortez Younger Glucose [Mass/Vol] 98 mg/dL Normal 74-[address] [facility] Comment on above: Performed By: #### C MP #### [facility] [address] [place] [address] Dr. Cortez Younger Potassium [Moles/Vol] 3.9 mmol/L Normal 3.5-5.1 [facility] Comment on above: Performed By: #### C MP #### [facility] [address] [place] [address] Dr. Cortez Younger Protein [Mass/Vol] 6.7 g/dL Normal 6.4-8.2 [facility] Comment on above: Performed By: #### C MP #### [facility] [address] [place] [address] Dr. Cortez Younger Sodium [Moles/Vol] 140 mmol/L Normal 136-145 [facility] Comment on above: Performed By: #### C MP #### [facility] [address] [place] [address] Dr. Cortez Younger Urea nitrogen [Mass/Vol] 5.0 mg/dL Critically low 7.0-18.0 [facility] Comment on above: Performed By: #### C MP #### [facility] [address] [place] [address] Dr. Cortez Younger Urea nitrogen/Creatinine [Mass ratio] 6.7 mg/mg Normal [facility] Comment on above: Performed By: #### C MP #### [facility] [address] [place] [address] Dr. Cortez Younger CBC AUTO DIFFon 01-18-2022 BASO # 0.0 103/ul Normal 0.0-0.1 [facility] Comment on above: Performed By: #### C BC #### [facility] [address] [place] [address] Dr. Cortez Younger Basophils/100 WBC (Bld) 0.1 % Critically low 0.2-2.0 [facility] Comment on above: Performed By: #### C BC #### [facility] [address] [place] [address] Dr. Cortez Younger EO # 0.0 103/ul Normal 0.0-0.7 [facility] Comment on above: Performed By: #### C BC #### [facility] [address] [place] [address] Dr. Cortez Younger Eosinophils/100 WBC (Bld) 0.0 % Critically low 0.9-7.0 [facility] Comment on above: Performed By: #### C BC #### [facility] [address] [place] [address] Dr. Cortez Younger Erythrocyte distribution width (RBC) [Ratio] 12.8 % Normal 11.0-15.0 [facility] Comment on above: Performed By: #### C BC #### [facility] [address] [place] [address] Dr. Cortez Younger Hematocrit (Bld) [Volume fraction] 42.7 % Normal 42.0-54.0 [facility] Comment on above: Performed By: #### C BC #### [facility] [address] [place] [address] Dr. Cortez Younger Hemoglobin (Bld) [Mass/Vol] 15.3 g/dL Normal 14.0-18.0 [facility] Comment on above: Performed By: #### C BC #### [facility] [address] [place] [address] Dr. Cortez Younger IG # 0.10 10e3/ul Critically high 0.00-0.03 [facility] Comment on above: Performed By: #### C BC #### [facility] [address] [place] [address] Dr. Cortez Younger IG % 0.7 % Critically high 0.0-0.5 [facility] Comment on above: Performed By: #### C BC #### [facility] [address] [place] [address] Dr. Cortez Younger LYMPH # 1.9 103/ul Normal 1.2-3.8 [facility] Comment on above: Performed By: #### C BC #### [facility] [address] [place] [address] Dr. Cortez Younger Lymphocytes/100 WBC (Bld) 13.5 % Critically low 20.5-60.0 [facility] Comment on above: Performed By: #### C BC #### [facility] [address] [place] [address] Dr. Cortez Younger MANUAL DIFF REQ NO Normal [facility] Comment on above: Performed By: #### C BC #### [facility] [address] [place] [address] Dr. Cortez Younger MCH (RBC) [Entitic mass] 31.4 pg Normal 25.9-34.0 [facility] Comment on above: Performed By: #### C BC #### [facility] [address] [address] [address] Cortez Younger MCHC (RBC) [Mass/Vol] 35.8 g/dL Critically high 29.9-35.2 [facility] Comment on above: Performed By: #### C BC #### [facility] [address] [address] [address] Cortez Younger MCV (RBC) [Entitic vol] 87.5 fL Normal 80.0-94.0 [facility] Comment on above: Performed By: #### C BC #### [facility] [address] [address] [address] Cortez Younger MONO # 0.8 103/ul Normal 0.3-0.8 [facility] Comment on above: Performed By: #### C BC #### [facility] [address] [address] [address] Cortez Younger Monocytes/100 WBC (Bld) 5.6 % Normal 1.7-12.0 [facility] Comment on above: Performed By: #### C BC #### [facility] [address] [address] [address] Cortez Younger NEUT # 11.4 103/ul Critically high 1.4-6.5 [facility] Comment on above: Performed By: #### C BC #### [facility] [address] [address] [address] Cortez Younger Neutrophils/100 WBC (Bld) 80.1 % Critically high 43.0-75.0 [facility] Comment on above: Performed By: #### C BC #### [facility] [address] [address] [address] Cortez Younger Platelet mean volume (Bld) [Entitic vol] 8.4 fL Critically low 9.5-13.5 [facility] Comment on above: Performed By: #### C BC #### [facility] [address] [address] [address] Cortez Younger PLT 352 103/ul Normal 150-450 [facility] Comment on above: Performed By: #### C BC #### [facility] [address] [address] [address] Cortez Younger RBC 4.88 106/ul Normal 4.70-6.10 [facility] Comment on above: Performed By: #### C BC #### [facility] [address] [address] [address] Cortez Younger WBC 14.2 103/ul Critically high 4.0-11.0 [facility] Comment on above: Performed By: #### C BC #### [facility] [address] [address] [address] Cortez Younger PROF 14(COMP METB)on 022 Albumin [Mass/Vol] 4.1 g/dL Normal 3.4-5.0 [facility] Comment on above: Performed By: #### C MP #### [facility] [address] [place] [address] Dr. Cortez Younger Albumin/Globulin [Mass ratio] 1.5 {ratio} Normal [facility] Comment on above: Performed By: #### C MP #### [facility] [address] [address] [address] Cortez Younger ALP [Catalytic activity/Vol] 77 U/L Normal 46-116 [facility] Comment on above: Performed By: #### C MP #### [facility] [address] [address] [address] Cortez Younger ALT [Catalytic activity/Vol] 19 U/L Normal 16-63 [facility] Comment on above: Performed By: #### C MP #### [facility] [address] [address] [address] Cortez Younger Anion gap [Moles/Vol] 10.6 mmol/L Normal [facility] Comment on above: Performed By: #### C MP #### [facility] [address] [address] [address] Cortez Younger AST [Catalytic activity/Vol] 8 U/L Critically low 15-37 [facility] Comment on above: Performed By: #### C MP #### [facility] [address] [address] [address] Cortez Younger Bilirubin [Mass/Vol] 0.3 mg/dL Normal 0.2-1.0 [facility] Comment on above: Performed By: #### C MP #### [facility] [address] [address] [address] Cortez Younger Calcium [Mass/Vol] 8.9 mg/dL Normal 8.5-10.1 [facility] Comment on above: Performed By: #### C MP #### [facility] [address] [address] [address] Cortez Younger Chloride [Moles/Vol] 91 mmol/L Critically low 98-107 [facility] Comment on above: Performed By: #### C MP #### [facility] [address] [place] [address] Dr. Cortez Younger CO2 [Moles/Vol] 30.1 mmol/L Normal 21.0-32.0 [facility] Comment on above: Performed By: #### C MP #### [facility] [address] [place] [address] Dr. Cortez Younger Creatinine [Mass/Vol] 0.88 mg/dL Normal 0.70-1.30 [facility] Comment on above: Performed By: #### C MP #### [facility] [address] [place] [address] Dr. Cortez Younger EGFR-AF SAMMARINESE >60 Normal >=60 [facility] Comment on above: Performed By: #### C MP #### [facility] [address] [place] [address] Dr. Cortez Younger EGFR-NON AF SAMMARINESE >60 Normal >=60 [facility] Comment on above: Performed By: #### C MP #### [facility] [address] [place] [address] Dr. Cortez Younger Globulin (S) [Mass/Vol] 2.8 g/dL Normal [facility] Comment on above: Performed By: #### C MP #### [facility] [address] [place] [address] Dr. Cortez Younger Glucose [Mass/Vol] 112 mg/dL Critically high 74-106 T [facility] Comment on above: Performed By: #### C MP #### [facility] [address] [address] [address] Cortez Younger Potassium [Moles/Vol] 3.7 mmol/L Normal 3.5-5.1 [facility] Comment on above: Performed By: #### C MP #### [facility] [address] [address] [address] Cortez Younger Protein [Mass/Vol] 6.9 g/dL Normal 6.4-8.2 [facility] Comment on above: Performed By: #### C MP #### [facility] [address] [address] [address] Cortez Younger Sodium [Moles/Vol] 128 mmol/L Critically low 136-145 [facility] Comment on above: Performed By: #### C MP #### [facility] [address] [address] [address] Cortez Younger Urea nitrogen [Mass/Vol] 9.0 mg/dL Normal 7.0-18.0 [facility] Comment on above: Performed By: #### C MP #### [facility] [address] [address] [address] Cortez Younger Urea nitrogen/Creatinine [Mass ratio] 10.2 mg/mg Normal [facility] Comment on above: Performed By: #### C MP #### [facility] [address] [address] [address] Cortez Younger SED RATE WESTERGREN 2021 SED RATE <1 Normal <=20 [facility] Comment on above: Performed By: #### S EDR ####[facility] [id number] [address] Cortez Younger UA RANDOMon 01-18-2022 Bilirubin Ql (U) Negative Normal NEGATIVE [facility] Comment on above: Performed By: #### E RUR #### [facility] [address] [address] [address] Cortez Younger Clarity (U) CLEAR Normal CLEAR [facility] [place] [facility] Comment on above: Performed By: #### E RUR #### [facility] [address] [place] [address] Dr. Cortez Younger Color (U) LT. YELLOW Normal YELLOW [facility] Comment on above: Performed By: #### E RUR #### [facility] [address] [place] [address] Dr. Cortez Younger Glucose Ql (U) Negative Normal NEGATIVE [facility] Comment on above: Performed By: #### E RUR #### [facility] [address] [place] [address] Dr. Cortez Younger Hemoglobin Ql (U) TRACE-LYSED Abnormal NEGATIVE [facility] Comment on above: Performed By: #### E RUR #### [facility] [address] [place] [address] Dr. Cortez Younger Ketones Ql (U) Negative Normal NEGATIVE [facility] Comment on above: Performed By: #### E RUR #### [facility] [address] [place] [address] Dr. Cortez Younger LEUKOCYTES TRACE Abnormal NEGATIVE [facility] Comment on above: Performed By: #### E RUR #### [facility] [address] [place] [address] Dr. Cortez Younger Nitrite Ql (U) Negative Normal NEGATIVE [facility] Comment on above: Performed By: #### E RUR #### [facility] [address] [place] [address] Dr. Cortez Younger pH (U) 6.5 [pH] Normal 5-9 [facility] Comment on above: Performed By: #### E RUR #### [facility] [address] [place] [address] Dr. Cortez Younger SPEC GRAVITY <=1.005 Abnormal 1.005-<=1.025 [facility] Comment on above: Performed By: #### E RUR #### [facility] [address] [place] [address] Dr. Cortez Younger UA PROTEIN Negative Normal NEGATIVE/ TRACE [facility] Comment on above: Performed By: #### E RUR #### [facility] [address] [place], [place] [address] Dr. Cortez Younger Urobilinogen Qn (U) 0.2 {Fidelia'U}/dL Normal 0.2 - 1. 0 [facility] Comment on above: Performed By: #### E RUR #### [facility] [address] [address] [address] Cortez Younger MRI CSPINE WO W [...] VERN LU Date: 2022-01-17 16:24 Normal [facility] MRI TSPINE WO W CONon 2021 [...] VERN LU Date: 2022-01-17 16:29 Normal [facility] MRI BRAIN WO W CONon [...] by: VERN LU Date: 2022-01-03 08:03 Normal [facility] Patient Educationon 12-25-19 Patient Education Oncology [...] including vitamins, herbs, eye drops, creams, and syua-nxo-svuukol medicines. This also includes: ? Medicines to [...] 08/01/2005 Document Revised: 06/11/2018 Document Reviewed: 04/05/2018 [employer] Patient Education ? 2019 [employer]. [facility] Urology Office/Clinic Noteon 12-24-2021 Urology Office/Clinic [...] Urnls Dip Stick Auto w/o Microscopy POC 47662 3. Elevated PSA (R97.20: Elevated prostate specific antigen [PSA]) Most recent PSA done 08/13/21 5.24 Ordered: Urnls Dip Stick Auto w/o Microscopy POC 64135 Other obstructive and reflux uropathy (N13.8: Other obstructive and reflux uropathy) Follow-up With When Contact Information Star Manley MD, Gustavo Orlando, URO In 6 months [facility] [address] [place] [address]- Additional Instructions: w/ PVR Patient Education Prostate-Specific Antigen Test ILynda, personally scribed for Dr. Graves on 12/24/2021 [...] tab(s), Or (more content not included)... Normal [facility] Comment on above: Result Comment: Elec tronically Signed By: Star Manley MD, Gustavo Orlando\.br\Date and Time Signed: 12/24/21 10:52 EDT\.br\Electronically Co-Signed By: Lynda Ortega\.br\Date and Time Co-Signed: 12/24/21 10:47 EDT Lab Reportson 12-16-2021 Lab Reports [id number]: 127 Normal [facility] Lab Reports [id number]#[id number]: 127 Normal [facility] CULTURE URINEon 12-12-2021 CULTURE URINE Culture Observations : No growth Normal [facility] Comment on above: Performed By: #### U RCX ####[facility] [address] [place], [place] [address]Fish Cortez Younger UA RANDOMon 06-02-2022 Bilirubin Ql (U) Negative Normal NEGATIVE [facility] Comment on above: Performed By: #### U A #### [facility] [address] [address] [address] Cortez Younger Clarity (U) CLEAR Normal CLEAR [facility] Comment on above: Performed By: #### U A #### [facility] [address] [place] [address] Dr. Cortez Younger Color (U) LT. YELLOW Normal YELLOW [facility] Comment on above: Performed By: #### U A #### [facility] [address] [place] [address] Dr. Cortez Younger Glucose Ql (U) Negative Normal NEGATIVE [facility] Comment on above: Performed By: #### U A #### [facility] [address] [place] [address] Dr. Cortez Younger Hemoglobin Ql (U) LARGE Abnormal NEGATIVE [facility] Comment on above: Performed By: #### U A #### [facility] [address] [place] [address] Dr. Cortez Younger Ketones Ql (U) Negative Normal NEGATIVE [facility] Comment on above: Performed By: #### U A #### [facility] [address] [place] [address] Dr. Cortez Younger LEUKOCYTES Negative Normal NEGATIVE [facility] Comment on above: Performed By: #### U A #### [facility] [address] [place] [address] Dr. Cortez Younger Nitrite Ql (U) Negative Normal NEGATIVE [facility] Comment on above: Performed By: #### U A #### [facility] [address] [place] [address] Dr. Cortez Younger pH (U) 7.0 [pH] Normal 5-9 [facility] Comment on above: Performed By: #### U A #### [facility] [address] [place] [address] Dr. Cortez Younger SPEC GRAVITY 1.010 Normal 1.005-<=1.025 [facility] Comment on above: Performed By: #### U A #### [facility] [address] [place], [place] [address] Dr. Cortez Younger UA PROTEIN Negative Normal NEGATIVE/ TRACE [facility] Comment on above: Performed By: #### U A #### [facility] [address] [place], [place] [address] Dr. Cortez Younger Urobilinogen Qn (U) 0.2 {Fidelia'U}/dL Normal 0.2 - 1. 0 [facility] Comment on above: Performed By: #### U A #### [facility] [address] [place], [place] [address] Dr. Cortez Younger Coding Summary.on 12-06-2021 Coding Summary. CD:[id number] Gh0b Ww+PGhlYWQ+FA1SBOTgE52cj XVmvZ1VV4rOWD8MMKEYDIYKF Q8MYQ1ykQG4FNxfJ1AikjOe YegbjPZmOZ24BEp7XUM6tIfz MDdbzF7ufHHoH9r6DfWtAQ74 xH62BVukOVQnHgF8SjPbnyao bWFy Z8xwHcDehDVkUby+PHRhYmxl IHdpZHRoPScxMDAlJyBzdHls KK6iSu0qNKSuJCYmsTzrgEUu OiBj c8vhZMJqRQekMB8esZvuV0Ev aJI5THKke6a9Bw42vYL+PHRk INH5aPgsAGuow522TjJad2bi IDM3 fLSxTFdgGAE1F39kz7J9JNMq XSXaIRV3eIK6nR8biOsbwmkl F6OhaIRvVlE5GCF7dHMnlN2t bGln zqmjtF6dGve+P79ZQF2RMDGY NM9ROqy1X5OtBzpreUF+PC90 HUTjDE54jTLavSZek1nrgCm4 JzEw DNCpBAZ7lMzjHNqdb4XiQCSc R33wtDZqv5J2UXRcmCrrgFCz SwFudWC6oL5qUAvelpbhm9dw dzsn Yzisx8odxf89sZ61W34uKUtx BFGmLLH1GIGiDTFmjZgdkq2x dV3oFc9+EPetn5yjf4hliFm7 IjIw SDPrncKtgNjiTGS4u4RoHo22 J9DbqMema0GrGhw2ht36jENp n1J7ePW9VFkhWYXcfU4fPIyn ZnQ6 MXOzZiRymS19rOSpHIyjVu0a dSvpkUjsGV3eHZMewqxkXAPr nS2aAOWuwTPorJegDR9zVUTg bjtm q130WkRbQSV9OBDpzMAgT3Nx rF2tKbYrRGAsZMXkR5MycDKv FCkaE830NBycLaJ8QYOvuhLk Y2Fs ZCRxlBruYvW1b0G4Fu7Dj9Hq njmgCZB6PTtnCRE2ThX7PoJr NrR5H4AgEsy8VOJmjZhnUB1v J3Bh SKDtauxdapqhsYK1ECNtMADr iX75mRSvHPlpHt4fx5M8a791 GQFjIZAimX88Yl6tqQbjHHAa dCBU iF0oxgeuz4gkhyiqMfMpUYZv AUc4TFi2ITHniCaqDnQoWIT0 XxR0SWS4rJNjdR0ivRutzkry dG9w Oyc+U58meR6xIYZ5THJ8fhzy PCGzknMuNL08FA68U0JnBtzx dGFibGU+CYXqmoXnfAbwUU6q YmFj k9hcf2GrTQbjA0QcLJYlOAwy Caj3TEAsXDO1yGR3oI3nQWIy LBgeb6P5rUI9J6MkhbGlgw9p b2xs WPJiVVbeO04uvDWjz4Q1ELAy aXQ9TOQkjAbzBaNpvT39Upd+ CVWslRahh7DfKrcxc1qoi4fp dGg9 ZhLwSCSkkmZyfYyyWXU4z6Ly Rk86U70eVIpyRKXgCEZqDAVg WXSehZsbnh5dkG7zOs4+PGNv bCB3 fPR7fX3lIKKmSaP8IVimO106 NgDlbHKjMqqrg5hib0jpnUu5 FtZiUNUmiuOjsKodCCG9d0Zd Lz48 I56pCAfoFBZgGXEjWWBzIIQf qLhfup0iwJ6iHl2+GQ9gr0ty yn17hW63oFL+PIRnZJD4vKpq PSdw VIIprI8eTEbcSaY7IUWmUnRp gB29hREfFGrlJk3kmIixvJwv ER2mLLOpcfibj681EpLuc9es IDEw qGPfOFauNIQ4U71tl6B6ORVr QQGwULN1mFU0cT0zzPyposxb bGVmdDsgdmVydGljYWwtYWxp Z246 IHRvcDsnPlBhdGllbnQgTmFt QJe1S2WkBiu7UTTagJrkOJ1z pNHqCCxeYi6afKqbaUuxLE2z NTBp ykndm255UfLsx4aoDCIxeXTw GQgiICN3V21ke5U7FMYeKZNh JGA4kMB9uN2sfNfwysbnaCGw dDsg qnPmiRowCDjwATveK357OFUk pUkzRwBlyfSrYQHedWC0KR30 FN48sMNwm8G5dHP6T9WzZOAc bmct mwerrBI1RDFgFQEigG37Hd3h hTroEa8hBWIpSJE1NXGjbRZr A3BoaB9jYbEmNFJzLPSmL3De eHQt OQhfM962VYzvJrD0RRLdepEd Y5RdSYLdpHbfLpT8g7Y3Kj1E M5Z4MZ63ZT03eYLlu6Y0lTH5 J3Bh KNFuzhpbtgmxlTT1EDQuXJIv pS96Sf9ixFqdYi5tPMAfWRS6 YQOyyRAnH8TqlX5mDxQqCSQb MDAw M5DogXNbQHolE271LUucNqP6 PSJiigWaM5KqWNHmfRrsTlJ7 p0U2Dm2MMUg4WA26FR37rULl c3R5 xFN6K5GmUZTannilrwukgVN3 LNSbLTFbyM29Sr8cxKpaEs4d QXZtUSO5EYPmoIPgS3GdfF3f OiAj XMDfEZNfQ8RqjUBbZBriM202 EGarZgA0CKGrhiQxJ9PoYCYx sGlgQgS6i6J2Nl0SLPCwCV58 IFR5 mBM5WC04QU88P7SoUywlnRBz bGU+PHRhYmxlIHdpZHRoPScx PQGkAlGadCnpIA7pUg0pVDKx LWNv nTnllEWjAdLjz2mwHMJsNUuf XB0nuLmdS0MtqBE2ELHtb5w9 Kq09K37aM1TucLY+PGNvbCB3 aWR0 kZ2aCjSwSgR2AJvlF904GiLj qSBhWslkm6ajc8gibJh5FhC5 NSYbfsYciDjxCNT1e5BcQr45 Y29s IHdpZHRoPSIxNSUiIHZhbGln pi7xxS7hKv3+KWEvrKL5yXY4 jD3dBoVuXuL4OLjzF337LsEl cCIv Ehpzn9chx1veaAd3UfPcSYAp qwShfGjcNUI1c4DaNq87F1Ll eAbfk6EjKyc6si42wYPpt1Q5 bGU9 K1TdLZVgbdbniLQvrOsoSS4h XWHunquePYUimG5nZOGvT6w7 EcHvYzB3GBsxP9AeppM6TKEz cHQg YWdcAGK4R07uo4M5TMEzFNYt SVQ8lOO2eJ3mnOssgarheOPy oOfwnjGilHfjWKwgJTvlW969 IHRv fFmnBWQtsF1jWLOgyMBzmOlb TN8uQEGhyhpdPrCQRsDGC3bX ZAzkA8EYSM3eDQtjfNC+PHRk IHN0 hWqlYMjgBFKnrT2zNWMkU2d9 LnDeKzH4SNhjD9UlSDDfoakk Fl26iB5dLoBwGzT6HTfjF4Rn bnQ6 XZDdeBQoHQzpTLX1P72kz9S9 VPDwJZCvXRK0eZU9cV4iyGmg bjogbGVmdDsgdmVydGljYWwt YWxp T264YKZprJgvFtP8MoGeYjA1 Pbd3C8SoTgn7KGXvfAefHN5k zQAePYhoQo0ibRwdjJgjPD0k NTBp mptcFUIajF7yGPCafILpwRjc HM6rFFTlkerka582CuGzJHP2 UMTpgXBaU1RjsX3bNsKjCUKn MDAw A3SskRTiOSldA041GMjyEjK5 NSCsycOyE4MrTGAbtDcjUmY7 x5T8Gu39ChYHHGAlqterwEC+ PHRk TFI9oElvFBtbDMCcxE4wAISn M9t2YvTqMqR2TTjvD4VuJSKb vcleCy91qJ4cKgWdHjL8RHxu O2Zv opY7MDXvgFQdLOqgIZL7E08d t0Q2YNAvBQPgBSM6pPZ4dW4z bGlnbjogbGVmdDsgdmVydGlj YWwt AGlrU425DOExeRceTs6cuJW3 M8XqFfe7QAMbsCkjEF9urDXz KSwiCp0foAratUhpRF4oBVZh bjtw RKBdlF9jMYDmjNYtfHztHX5b NWEpfsysv148RiGyOBS1WWSu kERgR2TjfM4uLuCgKVNcEQKq O3Rl qAEiHJrfY199MYvmXoT2QJAi agXvM2TrRVJzcHrpOwM3z8O8 Fj9YeXSpOUPiOZ56CD07BO72 L3Ry PjwvdGFibGU+PHRhYmxlIHdp UGMfKNxlPNFsIeNleUkxRM0e Sg2eSFZyTQBvnTfyqNZtVeMn b2xs ROEzXSowDK2klMvtC7IxkNJ8 NNXjn1q4Wn41F57pA6OhxFL+ FYRgtQO5mVM2dR1kEnXtZpN7 YWxp H235WsCeoLWrUlgju8ucy2ti gYt6WvCtOKYugiHcxEsgJYJ2 a3VcGo51T63bTVbbIPPiLWMq MCUi PRUdnXewzo9nnA6pKt6+PGNv zGT9wKK3cJ9uNoWpApJ2JYff K154FsFwvLPaAprvS54kA8Aw dXA+ OCSsQxv5LXDscExfDA4ecEMk WBeaSh6lQOH3NoQrDiQhGLvm B2ChLYOskqfisqvxoRL5GDYu MDUw cR27Vy9rsOjrCa8lAMKcQMF2 FXJuiCKjB2MqpP0gFfLqHAUi INAqH6TzuHUsKRlwF554KEdr ZnQ7 XQAgvjOuN4LlKGCdjWfgNhQ0 j9I7Yf5JbZxgfCThPK4eBfDb PHy1U1GlJpx8ADSpwVhwXC4o cGFk DYxgLz0luWhiaFgzPW9tAOTs xkerl711PqFng2bbLOXmzPGy VAuuAYJ4G61tg2Y6FJPwNNNs MDA7 hVN1sB2uoSlbtanntUFtvExl guWnlJkmFZysKCwyY398RZTh zQgiDjUWDik5T2GeQzd3WCHb dHls BA3cmZOyKNbcFo1tvBjmlAti WD6mOKAswcvwb422JlAxn9ry SLWgsKPxZHtaKYZ0F97sb6I2 ICMw CYLgKAK5oWW4zL0ogQhfxmvt bGVmdDsgdmVydGljYWwtYWxp U368QVCftWjoGc2WEop6B9Qo Pjx0 FZJyrVepPL1aqPMdMGkvUo8o kZlzhFydHW9lWZAqibepc662 OnOab5fiSMDmxZTxLSzeHHC0 Y29s x1Z8SWWmVMMdRAK3pBH7vR1m bGlnbjogbGVmdDsgdmVydGlj FAiqWEzgB895YLKowSouFvVn eWVy OjwvdGQ+BF91ly88O8WzMmwp Cmo5RFVgGPJ0fYY0sV8dNHHt GAnnt0G6yQI3S5AgczKkjq2j b2xs YXBz (more content not included)... Normal [facility] Consent for Procedure/Surger yon 12-05-2021 Consent for Procedure/Surgery [id number]#[id number] :127 [facility] Consent for Treatmenton 05-2 Consent for Treatment [id number]: 127 [facility] IntraOperative Documentson 0 12-05-2021 IntraOperative Documents [id number] :127 [facility] Main [place] Intraoperative Recor don 12-05-2021 Main [place] Intraoperative Record IntraOp Document Type FTURO Summary Primary Physician: Gustavo Graves Jr., MD Finalized Date/Time: 12/05/21 13:57:51 Pt. Name: BALAHARISH D.O.B./Sex: 1970 Male Med Rec #: [id number] Physician: Gustavo Graves Jr., MD Financial #: [id number] Pt. Type: O Room/Bed: / Admit/Disch: 12/05/21 11:48:14 - Institution: Case Times FTURO Entry 1 Patient Times In Room 12/05/21 13:23:00 Out Room 12/05/21 13:57:00 Procedure Times Start 12/05/21 13:40:00 Stop 12/05/21 13:53:00 Anesthesia Times Last Modified By: Veena Levin RN 12/05/21 13:57:47 Case Attendance FTURO Entry 1 Entry 2 Entry 3 Case Attendee Star Manley MD, Gustavo Sanders SUPERVISOR UNDERWRITING CLERKS, Veena Brower SUPERVISOR UNDERWRITING CLERKS, Ni Aguirre Role Performed Surgeon - Primary [...] Case Attendee Veena Levin RN Role Performed Painter Bottom - Primary Time In 12/05/21 13:23:00 Time [...] Equipment, Implant, Time Out Star Manley MD, Gutsavo [place], Verified (If Medication Participants Veena Sanders [...] Implant Implant Identification Description UROLIFT Lot Number [id number] Family Counselor NEOTRACT Catalog ?# [id number] Expiration Date 07/17/23 Usage Data Implant Site [...] patient probl (more content not included)... [facility] Main OR Preoperative Recordo n 12-05-2021 Main OR Preoperative Record Holding Area Document Type FTURO Summary Primary Physician: Gustavo Graves Jr., MD Finalized Date/Time: 12/05/21 13:01:06 Pt. Name: HARISH MCKENNA Johanny Springer./Sex: 1970 Male Med Rec #: [id number] Physician: Gustavo Graves Jr., MD Financial #: [id number] Pt. Type: O Room/Bed: / Admit/Disch: 12/05/21 [...] Veena Levin RN Document Signatures Signed By: Yurynitish PEREZMurray Johanny 12/05/21 12:28 Veena Levin RN 12/05/21 13:01 Normal [facility] Operative Reporton Operative Report Patient: HARISH [...] procedure (10 mg diazepam, 5/325 mg of [place]), Local Anesthesia (60cc 2% Xylocaine liquid inserted [...] well and was subsequently discharged home. [facility] Comment on above: Result Comment: Elec tronically Signed By: Star Manley MD, Gustavo Don.amanda\Date and Time Signed: 12/05/21 13:58 EDT CBC AUTO DIFFon 12-03-2021 BASO # 0.2 103/ul Critically high 0.0-0.1 [facility] Comment on above: Performed By: #### C BC ####[facility] [id number] [id number]. Cortez Younger Basophils/100 WBC (Bld) 1.3 % Normal 0.2-2.0 [facility] Comment on above: Performed By: #### C BC ####[facility] [id number] [address]Dr. Eleanorlan Younger EO # 0.2 103/ul Normal 0.0-0.7 [facility] Comment on above: Performed By: #### C BC ####[facility] [address] [address]Dr. Cortez Younger Eosinophils/100 WBC (Bld) 1.8 % Normal 0.9-7.0 [facility] Comment on above: Performed By: #### C BC ####[facility] [address] [address]Dr. Cortez Younger Erythrocyte distribution width (RBC) [Ratio] 13.3 % Normal 11.0-15.0 [facility] Comment on above: Performed By: #### C BC ####[facility] [address] [address]Dr. Cortez Younger Hematocrit (Bld) [Volume fraction] 45.0 % Normal 42.0-54.0 [facility] Comment on above: Performed By: #### C BC ####[facility] Iq[address] [place], [place] [address]Dr. Cortez Younger Hemoglobin (Bld) [Mass/Vol] 15.6 g/dL Normal 14.0-18.0 [facility] Comment on above: Performed By: #### C BC ####[facility] [address] [place], [place] [address]Dr. Cortez Younger IG # 0.05 10e3/ul Critically high 0.00-0.03 [facility] Comment on above: Performed By: #### C BC ####[facility] X[address] [place], [place] [address]Dr. Cortez Younger IG % 0.4 % Normal 0.0-0.5 [facility] Comment on above: Performed By: #### C BC ####[facility] [address] [place], [place] [address]Dr. Cortez Younger LYMPH # 1.8 103/ul Normal 1.2-3.8 [facility] Comment on above: Performed By: #### C BC ####[facility] [address] [place], [place] [address]Dr. Cortez Younger Lymphocytes/100 WBC (Bld) 15.2 % Critically low 20.5-60.0 [facility] Comment on above: Performed By: #### C BC ####[facility] [address] [place], [place] [address]Dr. Cortez Younger MANUAL DIFF REQ NO Normal [facility] Comment on above: Performed By: #### C BC ####[facility] [address] [id number]. Cortez Younger MCH (RBC) [Entitic mass] 31.1 pg Normal 25.9-34.0 [facility] Comment on above: Performed By: #### C BC ####[facility] [address] [id number]. Cortez Younger MCHC (RBC) [Mass/Vol] 34.7 g/dL Normal 29.9-35.2 [facility] Comment on above: Performed By: #### C BC ####[facility] [address] [place], [place] [id number]. Cortez Younger MCV (RBC) [Entitic vol] 89.8 fL Normal 80.0-94.0 [facility] Comment on above: Performed By: #### C BC ####[facility] [address] [place], [place] [address]Dr. Cortez Younger MONO # 0.6 103/ul Normal 0.3-0.8 [facility] Comment on above: Performed By: #### C BC ####[facility] [address] [address]Dr. Cortez Aren Monocytes/100 WBC (Bld) 5.3 % Normal 1.7-12.0 [facility] Comment on above: Performed By: #### C BC ####[facility] [address] [place], [place] [id number]. Cortez Younger NEUT # 8.9 103/ul Critically high 1.4-6.5 [facility] Comment on above: Performed By: #### C BC ####[facility] [address] [place], [place] [address]Dr. Cortez Aren Neutrophils/100 WBC (Bld) 76.0 % Critically high 43.0-75.0 [facility] Comment on above: Performed By: #### C BC ####[facility] [address] [place], [place] [address]Dr. Cortez Youngre Platelet mean volume (Bld) [Entitic vol] 8.9 fL Critically low 9.5-13.5 [facility] Comment on above: Performed By: #### C BC ####[facility] [address] [place], [place] [address]Ns. Cortez Younger PLT 414 103/ul Normal 150-450 [facility] Comment on above: Performed By: #### C BC ####[facility] [address] [place], [place] [address]Xo. Cortez Younger RBC 5.01 106/ul Normal 4.70-6.10 [facility] Comment on above: Performed By: #### C BC ####[facility] [address] [place], [place] [address]Ba. Cortez Younger WBC 11.7 103/ul Critically high 4.0-11.0 [facility] Comment on above: Performed By: #### C BC ####[facility] [address] [place] [id number] Younger PROF 14(COMP METB)on 022 Albumin [Mass/Vol] 3.8 g/dL Normal 3.4-5.0 [facility] Comment on above: Performed By: #### C BC #### [facility] [address] [address] [address] Cortez Younger Albumin/Globulin [Mass ratio] 1.3 {ratio} Normal [facility] Comment on above: Performed By: #### C BC #### [facility] [address] [address] [address] Cortez Younger ALP [Catalytic activity/Vol] 95 U/L Normal 46-116 [facility] Comment on above: Performed By: #### C BC #### [facility] [address] [address] [address] Cortez Younger ALT [Catalytic activity/Vol] 25 U/L Normal 16-63 [facility] Comment on above: Performed By: #### C BC #### [facility] [address] [address] [address] Cortez Younger Anion gap [Moles/Vol] 12.7 mmol/L Normal [facility] Comment on above: Performed By: #### C BC #### [facility] [address] [place] [address] Dr. Cortez Younger AST [Catalytic activity/Vol] 18 U/L Normal 15-37 [facility] Comment on above: Performed By: #### C BC #### [facility] [address] [place] [address] Dr. Cortez Younger Bilirubin [Mass/Vol] 0.3 mg/dL Normal 0.2-1.0 [facility] Comment on above: Performed By: #### C BC #### [facility] [address] [place] [address] Dr. Cortez Younger Calcium [Mass/Vol] mg/dL Normal 8.5-10.1 [facility] Comment on above: Performed By: #### C BC #### [facility] [address] [place] [address] Dr. Cortez Younger Chloride [Moles/Vol] 98 mmol/L Normal 98-107 [facility] Comment on above: Performed By: #### C BC #### [facility] [address] [place] [address] Dr. Cortez Younger CO2 [Moles/Vol] 28.9 mmol/L Normal 21.0-32.0 [facility] Comment on above: Performed By: #### C BC #### [facility] [address] [place] [address] Dr. Cortez Younger Creatinine [Mass/Vol] 0.84 mg/dL Normal 0.70-1.30 [facility] Comment on above: Performed By: #### C BC #### [facility] [address] [place] [address] Dr. Cortez Younger EGFR-AF SAMMARINESE >60 Normal >=60 [facility] Comment on above: Performed By: #### C BC #### [facility] [address] [place] [address] Dr. Cortez Younger EGFR-NON AF SAMMARINESE >60 Normal >=60 [facility] Comment on above: Performed By: #### C BC #### [facility] [address] [place] [address] Dr. Cortez Younger Globulin (S) [Mass/Vol] 3.0 g/dL Normal [facility] Comment on above: Performed By: #### C BC #### [facility] [address] [address] [address] Cortez Younger Glucose [Mass/Vol] 104 mg/dL Normal 74-106 [facility] Comment on above: Performed By: #### C BC #### [facility] [address] [address] [address] Cortez Younger Potassium [Moles/Vol] 3.6 mmol/L Normal 3.5-5.1 [facility] Comment on above: Performed By: #### C BC #### [facility] [address] [address] [address] Cortez Younger Protein [Mass/Vol] 6.8 g/dL Normal 6.4-8.2 [facility] Comment on above: Performed By: #### C BC #### [facility] [address] [address] [address] Cortez Younger Sodium [Moles/Vol] 136 mmol/L Normal 136-145 [facility] Comment on above: Performed By: #### C BC #### [facility] [address] [address] [address] Cortez Younger Urea nitrogen [Mass/Vol] 6.0 mg/dL Critically low 7.0-18.0 [facility] Comment on above: Performed By: #### C BC #### [facility] [address] [address] [address] Cortez Younger Urea nitrogen/Creatinine [Mass ratio] 7.1 mg/mg Normal [facility] Comment on above: Performed By: #### C BC #### [facility] [address] [address] [address] Cortez Younger Consent for Procedure/Surger yon 10-15-2021 Consent for Procedure/Surgery [id number]: 127 Normal [facility] Patient Educationon 10-15-19 Patient Education Urology Hematuria, [...] these instructions at home: Medicines ? Take uipy-aal-pltvlhj and prescription medicines only as told by [...] the blood stops without treatment. ? Take rnvs-pyg-cjogysq and prescription medicines only as told by your health care provider. ? Drink enough fluid to keep your urine clear or pale yellow. This information is not intended to replace advice given to you by your health care provider. Make sure you discuss any questions you have with your health care provider. Document Released: 06/29/2006 Document Revised: 11/23/2019 Document Reviewed: 08/01/2017 [employer] Patient Education ? 2019 [employer] [facility] Urology Office/Clinic Noteon 10-14-2021 Urology Office/Clinic [...] Gustavo Orlando, [facility] [address] [place] [address]- Additional Instructions: Patient Education Hematuria, Adult Jaret Finley personally scribed for Dr. Graves on 10/14/2021 13:40:09. . Documentation recorded by the Sharonda yao accurately reflects the services(s) I performed and decis (more content not included)... Normal [facility] Comment on above: Result Comment: Elec tronically Signed By: Gustavo Graves Jr., MD\.br\Date and Time Signed: 10/14/21 13:47 EDT\.br\Electronically Co-Signed By: Jaret Benz\.br\Date and Time Co-Signed: 10/14/21 13:40 EDT SURGICAL PATH REPORTon 01-25 SURGICAL PATH REPORT [facility] Department of Pathology [address] [place] [id number] Name: HARISH MCKENNA : 1970 Financial [id number] Number: Gender: Male Location: [facility] Admit 50 years Attending CRUZITO TOMLINSON JR Age: Provider: Ordering CRUZITO TOMLINSON JR Provider: Consulting: Surgical Pathology Report ACCESSION: COLLECTED DATE/TIME: RECEIVED DATE/TIME: PATHOLOGIST: [id number] 01/23/2021 12:05 EDT 01/24/2021 12:05 EDT ALVIN CADET MD Final Diagnosis Report for [facility], [place]TR[place], BIOPSY: - MILD CHRONIC GASTRITIS. [...] MP/ts 01/24/2021 Tissue pathology report for: [facility], [address] [place] [address]; Print Date/ 01/25/2021 12:34 EDT Number: Time: [facility] Department of Pathology [address] [place] [id number] Name: HARISH MCKENNA : 1970 Financial [id number] Number: Gender: Male Location: [facility] Admit 50 years Attending CRUZITO TOMLINSON JR Age: Provider: Ordering CRUZITO TOMLINSON JR Provider: Consulting: Surgical Pathology Report ACCESSION: COLLECTED DATE/TIME: RECEIVED DATE/TIME: PATHOLOGIST: [id number] 01/23/2021 12:05 EDT 01/24/2021 12:05 EDT CHICHI DARLING, ALVIN Gross Description PATHOLOGY SERVICES PROVIDED BY [employer] (CLIA #[id number]) in cooperation with [facility] at [address] [place] [address] (CLIA #[id number]) Microscopic Diagnosis NOTE: One or more of the reagents used to perform assays on this specimen MAY have contained components considered to be analyte specific reagents ( ASRs). ASRs have not been cleared or approved by the U.S. Food and Drug Administration. The performance characteristics of these assays have been determined by the Department of Pathology at [facility]. This assay was performed subsequent to the H and E examination. Appropriate positive and negative controls were examined with appropriate reactivity. Codes CPT CODE: 40021 + 93303 Print Date/ 01/25/2021 12:34 EDT Number: Time: Normal [facility] Comment on above: Performed By: #### [id number] #### [facility] Laboratory Services [address] [place] [address] [employer] Reseller: Alvin Cadet MD Vital Signs Date Time Vital Sign Value Performing Clinician Facility 05-10-2024 13:14-0400 Body height 177.8 cm [facility] 05-10-2024 13:14-0400 Body mass index (BMI) [Ratio] 19.3 kg/m2 [facility] 05-10-2024 13:14-0400 Body temperature 97.2 [degF] [facility] 05-10-2024 13:14-0400 Body weight 61 kg [facility] 05-10-2024 13:14-0400 Diastolic blood pressure 72 mm[Hg] [facility] 05-10-2024 13:14-0400 Systolic blood pressure 112 mm[Hg] [facility] 04-11-2024 16:32-0400 Body height 177.8 cm Reba RIGGINS Work Phone: [facility] 04-11-2024 16:32-0400 Body mass index (BMI) [Ratio] 18.65 kg/m2 Reba Alcazar PA Work Phone: [facility] 04-11-2024 16:32-0400 Body weight 58.97 kg Reba Alcazar PA Work Phone: [facility] 04-11-2024 16:32-0400 Diastolic blood pressure 78 mm[Hg] Reba Alcazar PA Work Phone: [facility] 04-11-2024 16:32-0400 Heart rate 70 /min Reba Alcazar PA Work Phone: [facility] 04-11-2024 16:32-0400 Respiratory rate 16 /min Reba Alcazar PA Work Phone: [facility] 04-11-2024 16:32-0400 SaO2% (BldA) [Mass fraction] 96 % Reba Alcazar PA Work Phone: [facility] 04-11-2024 16:32-0400 Systolic blood pressure 120 mm[Hg] Reba Alcazar PA Work Phone: [facility] 09-17-2023 14:59-0500 Body height 177.8 cm [facility] 09-17-2023 14:59-0500 Body mass index (BMI) [Ratio] 18.8 kg/m2 [facility] 09-17-2023 14:59-0500 Body temperature 98.1 [degF] [facility] 09-17-2023 14:59-0500 Body weight 59.42 kg [facility] 09-17-2023 14:59-0500 Diastolic blood pressure 45 mm[Hg] [facility] 09-17-2023 14:59-0500 Systolic blood pressure 82 mm[Hg] [facility] 03-25-2023 13:30-0400 Body height 177.8 cm Mahnaz Roth Other [facility] [employer] Other 03-25-2023 13:30-0400 Body mass index (BMI) [Ratio] 18.65 kg/m2 Mahnaz Roth Other [facility] [employer] Other 03-25-2023 13:30-0400 Body temperature 98.4 [degF] Mahnaz Roth Other [employer] Other 03-25-2023 13:30-0400 Body weight 58.97 kg Mahnaz Roth Other [facility] [employer] Other 03-25-2023 13:30-0400 Diastolic blood pressure 87 mm[Hg] Mahnaz Marcelinow Other [employer] Other 03-25-2023 13:30-0400 Systolic blood pressure 135 mm[Hg] Mahnaz Tuckerraw Other [facility] [employer] Other 12-24-2021 09:50-0400 Blood Pressure Location Gustavo Graves Jr. [facility] 12-24-2021 09:50-0400 Diastolic blood pressure 76 mm[Hg] Gustavo Graves Jr. [facility] 12-24-2021 09:50-0400 Heart rate 68 /min Gustavo Graves Jr. [facility] 12-24-2021 09:50-0400 Systolic blood pressure 132 mm[Hg] Gustavo Graves Jr. [facility] Encounters Encounter Date Encounter Type Care Provider Facility Start: 05-16-2024 End: 05-16-2024 Refill Kenna Lockett RN Work Phone: [facility] Comment on above: Insomnia, unspecifie d type (Primary Dx); Relapsing remitting multiple sclerosis (CMS/HCC) Start: 05-10-2024 End: 05-10-2024 [facility] Work Phone: Start: 05-10-2024 End: 05-10-2024 Patient encounter procedure [facility] Work Phone: Start: 04-18-2024 End: 04-19-2024 Refill Elaina RIGGINS Work Phone: [facility] Comment on above: Cervical radiculopat hy; Sensory disturbance Start: 04-15-2024 End: 04-18-2024 Refill Kenna Lockett RN Work Phone: [facility] Comment on above: Venous insufficiency ; Relapsing remitting multiple sclerosis (CMS/HCC) Start: 04-14-2024 End: 04-14-2024 ambulatory [facility] Work Phone: Start: 04-14-2024 End: 04-14-2024 Patient encounter procedure [facility] Work Phone: Start: 04-11-2024 End: 04-11-2024 ambulatory REBA ALCAZAR Not Available Start: 04-11-2024 End: 04-11-2024 Office outpatient visit 25 minutes Reba RIGGINS Work Phone: [facility] Comment on above: Multiple sclerosis ( CMS/HCC) (Primary Dx); Neurogenic bladder; Other chronic pain; Tremor Start: 04-04-2024 End: 04-04-2024 ambulatory BUBBA GHOTRA Not Available Start: 03-04-2024 End: 03-04-2024 ambulatory MATY Chand WALDEMAR [facility] Start: 01-19-2024 End: 01-19-2024 ambulatory [facility] Work Phone: Start: 01-19-2024 End: 01-19-2024 Patient encounter procedure [facility] Work Phone: Start: 12-23-2023 End: 12-23-2023 ambulatory BUBBA GHOTRA Not Available Start: 11-26-2023 End: 11-26-2023 ambulatory BUBBA OWENSYER Not Available Start: 11-18-2023 End: 11-18-2023 ambulatory [facility] Work Phone: Start: 11-18-2023 End: 11-18-2023 Patient encounter procedure [facility] Work Phone: Start: 09-17-2023 End: 09-17-2023 Patient encounter procedure [facility] Work Phone: Start: 09-09-2023 End: 09-09-2023 ambulatory BUBBA GHOTRA Not Available Start: 08-31-2023 End: 08-31-2023 ambulatory BUBBA Chand HEMEYER Not Available Start: 08-26-2023 End: 08-29-2023 Non-patient / Non-visit [facility] Work Phone: Start: 08-21-2023 End: 08-21-2023 ambulatory Mahnaz Roth Other [employer] Other Start: 08-21-2023 Telephone encounter Mahnaz Roth [facility] Start: 07-22-2023 Telephone encounter Mahnaz Roth [facility] Start: 07-22-2023 End: 07-22-2023 ambulatory MATY WIN [employer] Other Start: 06-24-2023 End: 06-24-2023 ambulatory Mahnaz Ira Other [employer] Other Start: 06-24-2023 Telephone encounter Mahnaz Ira [facility] Start: 05-28-2023 End: 05-28-2023 ambulatory Mahnaz Ira Other [employer] Other Start: 05-28-2023 Telephone encounter Mahnaz Ira [facility] Start: 05-19-2023 End: 05-19-2023 ambulatory Mahnaz Ira Other [employer] Other Start: 05-19-2023 Office outpatient visit 15 minutes Mahnaz Ira [facility] Start: 04-21-2023 End: 04-21-2023 ambulatory Mahnaz Ira Other [employer] Other Start: 04-21-2023 Office outpatient visit 15 minutes Mahnaz Ira [facility] Start: 04-07-2023 End: 04-07-2023 ambulatory Mahnaz Ira Other [employer] Other Start: 04-07-2023 Telephone encounter Mahnaz Ira [facility] Start: 04-02-2023 End: 04-02-2023 ambulatory Mahnaz Ira Other [employer] Other Start: 04-02-2023 Telephone encounter Mahnaz Ira [facility] Start: 04-01-2023 End: 04-01-2023 ambulatory Mahnaz Ira Other [employer] Other Start: 04-01-2023 Telephone encounter Mahnaz Ira [facility] Start: 03-25-2023 End: 03-25-2023 ambulatory Mahnaz Roth Other [employer] Other Start: 03-25-2023 Office outpatient ne w 60 minutes Mahnaz Tuckerraw [facility] Start: 11-13-2022 End: 11-13-2022 [...] ility:[facility]1 Start: 09-16-2022 ambulatory LAMAR Sheikh ty:[facility] Start: 06-26-2022 End: 06-27-[address] LISA ROMERO . Facility:[facility] Start: 05-28-2022 End: 05-28-2022 ambulatory ESA LARIOS . Facility:[facility] Start: 03-13-2022 End: [address] LISA ROMERO . Facility:[facility] Start: 03-08-2022 ambulatory REBA PURCELL Facility:H 1 Start: 02-26-2022 End: 02-27-[address] VERN CHAMPAGNE Facility:[facility] Start: 01-18-2022 End: 07-19-[address] VERN CHAMPAGNE Facility:[facility]1 Start: 01-17-2022 End: 01-18-2022 ambulatory NONE LISTED REQUEST Facility:[facility]1 Start: 01-16-2022 End: 01-19-[address] DOCTOR BENNETT Facility:[facility]1 Start: 01-02-2022 End: 01-03-[address] NONE LISTED REQUEST Facility:[facility]1 Start: 12-24-2021 End: 12-25-2021 ambulatory Heri MURRELL Facility:[facility] Start: 12-24-2021 End: 12-24-2021 Patient encounter procedure Gustavo Graves Jr. [facility] Start: 12-17-2021 End: 12-19-[address] DOCTOR BENNETT Facility:[facility] Start: 12-12-2021 End: 12-13-2021 ambulatory LAMARAYAAN TURNER Facility: Start: 12-05-2021 End: 12-06-2021 ambulatory Heri MURRELL Facility:[facility] Start: 12-05-2021 End: 12-05-2021 Patient encounter procedure Gustavo Graves Jr. [facility] Start: 12-05-2021 ambulatory Heri MURRELL Facility :[facility] Start: 12-03-2021 End: 12-04-2021 ambulatory REBA BINH Facility: Start: 10-14-2021 End: 10-15-2021 ambulatory Heri MURRELL Facility:[facility] Start: 09-19-2021 ambulatory Heri MURRELL Facility :[facility] Start: 12-11-2017 End: 12-12-2017 Patient encounter procedure Tunde Das Facility:[facility] Procedures Date Procedure Procedure Detail Performing Clinician Start: 10-14-2021 Cystoscopy Gustavo flores Jr. Start: 09-13-2019 Cystoscopy Gustavo flores Jr. Cholecystectomy Gustavo Graves Jr. Counseling Mahnaz corcoran Other Plan of Treatment Date Care Activity Detail Author Start: 04-19-2027 Screening for malignant neoplasm of colon [facility] Start: 12-22-2024 Medicare Annual Wellness (AWV) Medicare Annual Wellness (AWV) [facility] Start: 06-07-2024 End: 06-07-2024 Patient encounter procedure 06/07/2024 3:40 PM EST Office Visit [facility] [address] [place] [phone] Reba Alcazar PA [address] [place] [address] [facility] [address] [facility] Start: 05-13-2024 End: 04-12-2025 Sodium [Moles/volume] in Serum or Plasma Sodium Lab Routine Multiple sclerosis (CMS/HCC) Expected: 05/13/2024 (Approximate), Expires: 04/12/2025 [facility] Work Phone: Comment on above: Expected: 05/13/2024 (Approximate), Expires: 04/12/2025 Start: 1970 Screening for malignant neoplasm of colon [facility] Immunizations Immunization Date Immunization Notes Care Provider Fa cility 10-22-2020 SARS-CoV-2 (COVID-19 ) mRNA BNT-162b2 vax Gustavo Graves Jr. [facility] 10-01-2020 SARS-CoV-2 (COVID-19 ) mRNA BNT-162b2 vax [facility] Jr. [facility] [facility] Payers Date Payer Category Payer Medicaid [id number] 5 2003 Medicare [id number] 5 1969 Unknown [id number] 2.16.8 40.1.702647.3.579.2.727 1969 Unknown [id number] 2.16.8 40.1.029508.3.579.2.727 1969 Unknown [id number] 2.16.8 40.1.495059.3.579.2.727 1969 Unknown [id number] 2.16.8 40.1.865201.3.579.2.727 1969 Unknown [id number] 2.16.8 40.1.092337.3.579.2.727 1969 Unknown [id number] 2.16.84 0.1.581594.3.579.2.593 1969 Unknown [id number] 2.16.84 0.1.089720.3.579.2.593 1969 Unknown [id number] 2.16.84 0.1.468740.3.579.2.593 1969 Unknown [id number] 2.16.84 0.1.791691.3.579.2.593 1969 Unknown [id number] 2.16.84 0.1.072701.3.579.2.593 1969 Unknown [id number] .16.84 0.1.490977.3.579.2.593 1969 Unknown [id number] 2.16.84 0.1.371902.3.579.2.593 1969 Unknown [id number] 2.16.84 0.1.968376.3.579.2.593 1969 Unknown [id number] 2.16.84 0.1.631673.3.579.2.593 1969 Unknown [id number] .16.84 0.1.421978.3.579.2.593 1969 Unknown [id number] 2.16.84 0.1.165514.3.579.2.593 1969 Unknown [id number] 2.16.84 0.1.094519.3.579.2.593 1969 Unknown [id number] 2.16.84 0.1.064942.3.579.2.593 1969 Unknown [id number] 2.16.84 0.1.945000.3.579.2.593 1969 Unknown [id number] 2.16.84 0.1.695127.3.579.2.593 1969 Unknown [id number] 2.16.84 0.1.193357.3.579.2.593 1969 Unknown [id number] 2.16.84 0.1.861200.3.579.2.593 1969 Unknown [id number] 2.16.84 0.1.680845.3.579.2.593 1969 Unknown [id number] 2.16.84 0.1.887739.3.579.2.593 1969 Unknown [id number] 2.16.84 0.1.899876.3.579.2.593 1969 Unknown [id number] 2.16.8 40.1.127283.3.579.2.1286 1969 Unknown [id number] 2.16.84 0.1.563812.3.579.2.1286 1969 Unknown [id number] 2.16.84 0.1.184156.3.579.2.1259 1969 Unknown [id number] 2.16.84 0.1.209193.3.579.2.1259 1969 Unknown [id number] 2.16.84 0.1.197532.3.579.2.9 1969 Unknown [id number] 2.16.84 0.1.045264.3.579.2.9 1969 Unknown [id number] 2.16.84 0.1.865345.3.579.2.1259 1969 Unknown [id number] 2.16.84 0.1.418265.3.579.2.1259 1959 Medicaid [id number] 1960 Medicare [id number] 1959 Self-pay Unknown HCAP/HFA/FAP Active [id number] Social History Date Type Detail Facility Start: 10-14-2021 End: 12-23-2023 Tobacco smoking status Ex-smoker (finding) [facility] Start: 12-01-2022 End: 01-23-2023 Sex Assigned At Male [facility] Start: 1970 Sex Assigned At Male [facility] Start: 08-18-2008 End: 08-18-2023 History of tobacco use Current smoker [facility] Start: 08-18-2008 End: 08-18-2023 History of tobacco use Cigarette Smoker [facility] Start: 01-23-2023 End: 12-23-2023 Cigarettes smoked current (pack per day) - Reported 1.5 [facility] Start: 12-23-2023 Tobacco use and exposure Smokeless tobacco non-user [facility] Start: 04-11-2024 Alcoholic beverage intake Lifetime non-drinker (finding) [facility] Fear of Current or Ex-Partner Not on file [facility] Within the last year , have you been kicked, hit, slapped, or otherwise physically hurt by your partner or ex-partner? No [facility] Are you now , , , , never or living with a partner? [facility] How often to you hav e a drink containing alcohol? Never [facility] How hard is it for y ou to pay for the very basics like food, housing, medical care, and heating Very hard [facility] (I/We) worried wheth er (my/our) food would run out before (I/we) got money to buy more. Never true [facility] The food that (I/we) bought just didn't last, and (I/we) didn't have money to get more. Often true [facility] Start: 01-26-2023 Education 13 [facility] Start: 11-03-2023 Tobacco Comment 21-30 cigs/day - not currently smoking 11/03/23 [facility] Start: 11-03-2023 Alcohol Comment Caffiene intak e - 3-4 cans Pepsi daily [facility] Start: 1970 Sex assigned at Not on file [facility] Functional Status Date Assessment Result Facility 12-24-2021 Functional Status N/A [facility] [place] Clinical Notes 05-26-2022 to 05-16-2024 Kenna Lockett RN - 05/16/2024 10:40 AM ESTKenna Lockett RN - 04/15/2024 3:29 PM EDT Note Date & Type Note Facility 05-16-2024 History of Presen t illness Narrative Pt lm, requests rx for Seroquel documented in this encounter [facility] 04-15-2024 History of Presen t illness Narrative SW spoke to pt, needs rx for Spironolactone. documented in this encounter [facility] 08-21-2023 Evaluation note Encounter Date Diagnosis Assessment Notes Aug, Chronic pain (ICD-10 - G89.29) OARRS reviewed, consistent with Rx. MME 60 mg/day [employer] Other 01-10-2024 Evaluation note* Encounter Date Diagnosis Assessment Notes Treatment Notes Treatment Clinical Notes Jul, Chronic pain (ICD-10 - G89.29) OARRS reviewed, consistent with Rx. Also has benzo prescribed by [facility] and pregabalin by neurology [facility] [employer] Other 12-13-2023 Evaluation note* Encounter Date Diagnosis Assessment Notes Treatment Notes Treatment Clinical Notes Jun, Chronic pain (ICD-10 - G89.29) [employer] [facility] Other 11-16-2023 Evaluation note* Encounter Date Diagnosis Assessment Notes Treatment Notes Treatment Clinical Notes May, Chronic pain (ICD-10 - G89.29) OARRS reviewed, consistent with Rx [employer] Other 11-07-2023 Evaluation note* Encounter Date Diagnosis [...] at bedtime instead of using PRN only [employer] Other 10-10-2023 Evaluation note* Encounter Date Diagnosis Assessment Notes Treatment Notes Treatment Clinical Notes Apr, Chronic pain (ICD-10 - G89.29) OARRS reviewed, consistent with Rx. Harish reports some relief with oxycodone 10 mg tabs, and is using med 3-4x/daily. Continue same without change. Apr, Constipation (ICD-10 - K59.00) Improved elimination with daily use of senna [employer] [facility] Other 09-26-2023 Evaluation note* Encounter Date Diagnosis [...] reported some lose stools after using routinely [employer] [facility] Other 09-20-2023 Evaluation note* Encounter Date Diagnosis Assessment Notes Treatment Notes Treatment Clinical Notes Mar, Chronic pain (ICD-10 - G89.29) OARRS reviewed, consistent with recent Rx. Increasing frequency of oxycodone to q6h PRN to improve pain control. Mar, Constipation (ICD-10 - K59.00) Harish is using Miralax daily but remains constipated, will add stimulant laxative [employer] Other 09-13-2023 Evaluation note* Encounter Date Diagnosis Assessment Notes Treatment Notes Treatment Clinical Notes Mar, Multiple sclerosis (ICD-10 - G35) On Ocrevus, follows with Dr. Champagne Mar, Encounter for palliative care (ICD-10 - [...] (ICD-10 - F41.9) Follows with psychiatry, Dr. Win. Mar, Advanced care planning/counseling discussion (ICD-10 - Z71.89) Harish is with 2 adult children, 2 brothers and a mother. He has not completed Advanced Directives but is interested in more information and completion of forms. Mar, Nausea (ICD-10 - R11.0) Continue Zofran without change Mar, Constipation (ICD-10 - K59.00) Management of Constipation hand out provided to patient [employer] Other 04-06-2023 NoteCONSULTATION CONSULTATION DATE: 10/16/2022 TO: [...] 25 mg daily, Lyrica 200 mg t.i.d., [place] 7.5 mg b.i.d. He currently uses medical [...] THC if we are to continue with [place]. However, at this point, I do not [...] our patients to inform us about any oibb-fwx-qkrcwhc medications or herbal remedies/nutritional supplements/alternative remedies. 2. [...] treatment options with their primary care provider.[facility] [id number] Note CONSULTATION CONSULTATION DATE: 06/26/2022 HISTORY OF [...] Lyrica 200 mg t.i.d. per his neurologist, [place] 7.5/325 b.i.d., Cymbalta, baclofen and Ocrevus. Patient's [...] medication changes today. He was increased to [place] 7.5/325 at his last visit, and the patient feels it is somewhat helpful. We will continue to medically manage him only. Patient will be seen in the clinic in three months' time unless otherwise indicated.[facility] [id number] NoteCONSULTATION CONSULTATION DATE: 03/13/2022 HISTORY OF PRESENT ILLNESS: This is 51-year-old gentleman, well known to the Pain [facility], returning for a three month follow up. This gentleman has history of MS, chronic pain syndrome and diffuse neuropathic pain, which is chronically medically managed with a medication regimen. Current medications include Mobic 15 mg daily, Lyrica 200 mg t.i.d., [place] 5/325 t.i.d., baclofen, Trileptal and amitriptyline. Patient recently suffered a family loss and reportedly has lost about 12 pounds in weight. He does ambulate with a cane and is stable with that. He is requesting today that we change his [place]ville from t.i.d. to 7.5 b.i.d. as he [...] pain. PLAN: We will check from his [place] 5/325 t.i.d. to 7.5/325 b.i.d. We will maintain his other medications with no dose or frequency change. He will be given a U-Tox in the clinic today. I did discuss vitamin importance as well as supplementing his protein intake with Boost supplements. We will see the patient in three months' time, unless otherwise indicated. Patient is in agreement to this.[facility] [id number] Hospital Discharge instructions Patient Education 12/24/2021 10:47:00 [...] including vitamins, herbs, eye drops, creams, and fhbp-mbl-yfzyxzi medicines. This also includes: ?Medicines to assist [...] 08/01/2005 Document Revised: 06/11/2018 Document Reviewed: 04/05/2018 [employer] Patient Education 2020 [employer]. Follow Up Care 12/05/2021 14:04:21 With:Star Manley MD, Gustavo Orlando URO Address: [facility] [address], [place] [address]- When:Within 6 Month(s) Comments:w/ PVR [facility] 05-26-2022 Note [id number]:127[facility] 12-05-2021 NoteUrolift ? Some men may [...] personnel to use a Coude (pronouncedcoo-day) tipped catheter.[facility]05-26-2022 Hospital Discharge instructions Patient Education 12/05/2021 [...] tipped catheter. Follow Up Care 10/15/2021 13:57:48 With:Gsutavo Graves Address: [facility] [address], [place] [address]- Business (1) When:2 to 4 weeks Comments:PVR with next visit [facility] Future Appointments Appointment Date:12/24/2021 09:30:00 AM Scheduled Provider:Gustavo Graves Jr., MD Location:[facility] Appointment Type:URO [facility] Future Appointments Appointment Date:07/01/2022 10:45:00 AM Scheduled Provider:Gustavo Graves Jr., MD Location:[facility] Appointment Type:URO Office Visit [facility] evaluation noteNo InformationNoEncompass Health [employer] Other Evaluation note* Diagnosis Onset Date Resolution Status Chronic pain acute Constipation acute FDC (current) use of opiate analgesic acute Multiple sclerosis acute [facility] Work Phone: evaluation note* Diagnosis Onset Date Resolution Status Chronic pain acute Constipation acute Multiple sclerosis acute [facility] Work Phone: Evaluation note* Diagnosis Multiple sclerosis (CMS/HCC)- Primary Multiple sclerosis Neurogenic bladder Neurogenic bladder, NOS Other chronic pain Tremor Abnormal involuntary movements [facility] Diagnosis Venous insufficiency Unspecified venous (peripheral) insufficiency Relapsing remitting multiple sclerosis (CMS/HCC) Multiple sclerosis [facility] Diagnosis Cervical radiculopathy Brachial neuritis or radiculitis nos Sensory disturbance Disturbance of skin sensation [facility] Diagnosis Onset Date Resolution Status Chronic pain syndrome acute Constipation acute Multiple sclerosis acute [facility] Work Phone: Evaluation note* Diagnosis Insomnia, unspecified type- Primary Relapsing remitting multiple sclerosis (CMS/HCC) Multiple sclerosis [facility] N[facility]ative - Reported* Type Description Date Medical History multiple sclerosis Medical History bipolar Medical History GERD Surgical History cholecystectomy [facility] [employer] Other Hospital course Narrative No data available for this section [facility] No data available for this section [facility] Summary Purpose Family History Relationship Condition Age at Onset Recorded Date/T mohamud father Leukemia Unknown Malignant neoplasm Unknown Advance Directives Advance Directive Response Recorded Date/ Time Advance Directives No March 08, 2017 7:15am Advance Directive Response Recorded Date/ Time Advance Directives No January 26 8:28am Chief Complaint and Reason for Visit Chief Complaint 1 month F/U Patient here for a 2 month f/u Reason for Visit Chronic pain Constipation FDC (current) use of opiate analgesic Multiple sclerosis Chief Complaint Patient here for a 2 month f/u Patient here for a f/u visit Reason for Visit Chronic pain Constipation Multiple sclerosis Chief Complaint Patient here for a f /u visit Patient here for a f/u Reason for Visit Chronic pain Constipation Multiple sclerosis Chief Complaint Patient here for a f /u F/u in Office Reason for Visit Chronic pain syndrom e Constipation Multiple sclerosis Additional Source Comments (unrecognized sect ion and content) No Status Records FoundNo Status Records FoundNo Status Records FoundNo Status Records FoundNo Status Records FoundNo Status Records Found INFORMATION SOURCE (unrecogn ized section and content) DATE CREATED AUTHOR 09/18/2018 [facility] DATE CREATED AUTHOR AUTHOR'S ORGANIZ ATION 01/25/2021 [facility] DATE CREATED AUTHOR AUTHOR'S ORGANIZ ATION 09/16/2022 [facility] DATE CREATED AUTHOR AUTHOR'S ORGANIZ ATION 11/18/2022 [facility] DATE CREATED AUTHOR AUTHOR'S ORGANIZ ATION 03/06/2024 [facility] DATE CREATED AUTHOR AUTHOR'S ORGANIZ ATION 04/12/2024 [facility] EPIC Care Team (unrecognized sect ion and content) [...] September 17, 2023 End: September 17, 2023 Cash 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 Relationship Specialty Start Date End Date Bubba Ghotra MD [address] [place] [address] (Fax) PCP - General Family Medicine 11/27/22 Bubba Ghotra MD [address] [place] [address] (Fax) PCP - ACO Reach 12/04/22 Elaina Burgess PA [address] [place] [address] Physician Signal Helper Neurology 12/02/23 Kenna Lockett, GRAHAM Registered Nurse Family Medicine 12/02/23 Maty Win MD [address] [place] [id number] Referring Physician Behavioral Health 12/02/23 Team Status: Inactive Member Role Status Dates Bubba Ghotra MD Primary Care Provider Active Start: April 14, 2024 End: April 14, 2024 Mahnaz Roth APRN Attending Provider Active Start: April 14, 2024 End: April 14, 2024 Cash 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 Relationship Specialty Start Date End Date Bubba Ghotra MD [address] [place] [address] (Fax) PCP - General Family Medicine 11/27/22 Bubba Ghotra MD [address] [place] [address] (Fax) PCP - ACO Reach 12/04/22 Elaina Burgess PA [address] [place], [place] [phone] Physician Signal Helper Neurology 12/02/23 Kenna Lockett, RN Registered Nurse Family Medicine 12/02/23 Maty Win MD [address] [place] [address] Referring Physician Behavioral Health 12/02/23 Cash 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 Relationship Specialty Start Date End Date Bubba Ghotra MD [address] [phone] (Fax) PCP - General Family Medicine 11/27/22 Bubba Ghotra MD [address] [place] [address] (Fax) PCP - ACO Reach 12/04/22 Elaina Burgess PA [address] [place], [place] [phone] Physician Signal Helper Neurology 12/02/23 Kenna Lockett, RN Registered Nurse Family Medicine 12/02/23 Maty Win MD [address] [place] [address] Referring Physician Behavioral Health 12/02/23 Team Status: Inactive Member Role Status Dates Bubba Ghotra MD Primary Care Provider Active Start: May 10, 2024 End: May 10, 2024 Mahnaz Roth APRN Attending Provider Active Start: May 10, 2024 End: May 10, 2024 Cash 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 Relationship Specialty Start Date End Date Bubba Ghotra MD [address] [phone] (Fax) PCP - General Family Medicine 11/27/22 Bubba Ghotra MD [address] [address] PCP - ACO Reach 12/04/22 Elaina Burgess PA [address] [place] [address] Physician Signal Helper Neurology 12/02/23 Kenna Lockett, GRAHAM Registered Nurse Family Medicine 12/02/23 Maty Win MD [address] [place] [address] Referring Physician Behavioral Health 12/02/23 REASON FOR VISIT (unrecogniz ed section and content) Reason Comments Multiple Sclerosis Reason Comments Med Refill Goals (unrecognized section and content) Goals may [...] BE BASED ON THE PRIMARY CLINICAL RECORDS. [employer] provides no warranty or guarantee of the accuracy or completeness of information in this document.
[2024-05-27 16:49] LABS: Sodium 144 mmol/L (136-145)
== END 2024-05-27 16:20 | disposition home or self-care (01) ==
LOC: LAB 16:20
PROVIDERS: PCP Family Medicine; Visit Provider Physician Assistant
DX: G35 Multiple sclerosis (principal)
CPT/HCPCS: 36415; 84295

== ENCOUNTER 2024-06-22 13:10 | Outpatient (OUT) | payer MEDICARE, MEDICAID, SELFPAY ==
--- NOTE | 2024-06-22 13:15 | MR_ITS ---
The [address] [address] Patient Name: SERGIO MCKENNA MRN: [id number] date: 1970 Sex: M Assigned Patient Location: MRI Current Patient Location: MRI Accession/Order Number: [id number] Exam Date: 06/22/2024 13:45 Report Date: 06/22/2024 21:50 At the request of: ANJALI FRAUSTO Procedure: MR head/brain wo/w con EXAM: MR head/brain wo/w con HISTORY: Multiple Sclerosis COMPARISON: MRI brain 10/31/2022. TECHNIQUE: Multisequence MRI brain was performed with and without intravenous contrast. FINDINGS: There is no restricted diffusion to suggest acute infarct. There is no midline shift, mass effect, or abnormal extraaxial fluid collections. There are no abnormal parenchymal or leptomeningeal enhancement. The cortical sulci and ventricular system are within normal limits. There are multiple bright T2 signal throughout the supratentorial white matter, most of which oriented perpendicularly to the ventricles, grossly unchanged compared to prior examination from 10/31/2022. None of the lesions demonstrate restricted diffusion or abnormal enhancement. No new lesions are identified. There is no associated enhancement or restricted diffusion. The major intracranial flow voids are visualized. The cerebellar tonsils are normal in position. The orbits demonstrate no suspicious enhancement or any focal lesions. The paranasal sinuses show no air-fluid level. The mastoid air cells are clear. The calvarium is unremarkable. 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 MR/MR head/brain wo/w con IMPRESSION: No acute intracranial abnormality or abnormal intracranial enhancement. Multiple T2 signal abnormality throughout the supratentorial white matter, compatible with patient's diagnosis of multiple sclerosis, stable compared to prior study. No new lesions. No evidence for interval progression or active demyelination involving the brain. Electronically authenticated by: KRISTAL CASTILLO Date: 06/22/2024 21:50
--- OUTSIDE RECORDS SUMMARY | 2024-06-22 13:27 | XMS_ITS | CCD ---
Author Organization [facility] Care Team Providers Care Photographer Lithographic Name Role Phone Tunde Das Admitting Unavailable [...] Unavailable JULIO ., DR VILLAGOMEZ Admitting Unavailable MONETTA, DR CRUZITO Schuster Consulting Unavailable HEMEYER ., [...] WIN Attending Unavailable MATY WIN Attending Unavailable Bubba Ghotra MD Primary Care Provider Bubba Ghotra MD Unavailable [phone] Elaina Payton Unavailable Kenna Lockett RN Unavailable Maty Win MD Unavailable Bubba Ghotra MD Primary Care Provider [phone] Bubba Ghotra MD Unavailable BUBBA GHOTRA Attending Unavailable BUBBA GHOTRA Attending Unavailable BUBBA GHOTRA Attending Unavailable BUBBA GHOTRA Attending Unavailable BUBBA GHOTRA Attending Unavailable REBA ALCAZAR Attending Unavailable REBA ALCAZAR Attending Unavailable Allergies Allergy Classification Reported Allergen(s) Allergy Type Date of Onset Reaction(s) Facility (17 sources) PARoxetine; Translations: [paroxetine] Drug Allergy 4 Mild (qualifier value) [facility] (2 sources) PARoxetine Drug Allergy 3 [facility] (12 sources) venlafaxine Drug Allergy 3 Unknown [facility] (13 sources) venlafaxine Drug Allergy 3 Unknown Reaction [facility] (9 sources) PARoxetine Drug Allergy 2 Rash [facility] [...] 2020 9:57am ARIPiprazole 5 mg oral tablet (9 sources) Atypical Antipsychotic Start: 03-04-2024 take 1 tablet by mouth once daily ARIPiprazole (Abilify) 5 MG tablet Take 5 mg by mouth Daily 03/04/2024 Active baclofen 20 mg oral tablet (20 sources) gamma-Aminobutyric Acid-ergic Agonist Start: 05-24-2024 take 1 tablet by mouth three times daily baclofen (Lioresal) 20 MG tablet Indications: Muscle spasm TAKE ONE TABLET BY MOUTH THREE TIMES A DAY 90 tablet 05/24/2024 Active Start: 01-25-2024 take 1 tablet by rachel th three times daily baclofen (Lioresal) 20 MG [...] formoterol fumarate 0.0045 mg/actuat metered dose inhaler (10 sources) Corticosteroid, beta2-Adrenergic Agonist Start: 01-25-2024 End: 08-28-2024 take 2 puff(s) by inhalation in the morning budesonide-formoterol (Symbicort) 160-4.5 MCG/ACT inhaler Indications: Simple chronic bronchitis (CMS/HCC) Inhale 2 puffs in the morning and 2 puffs before bedtime. 1 each 3 05/30/2024 08/28/2024 Active busPIRone hydrochloride 7.5 mg oral tablet [...] ce a day Active Cannabinoids (medical cannabis) (9 sources) take 1 dose by mouth once [...] procedure., # 14 tab(s), Refills(s) 0, Pharmacy: [facility]/pharmacy #[id number], 178, cm, 10/14/21 12:57:00 EDT, Height/Length Dosing, 65.8, kg, 10/14/21 12:57:00 EDT, Weight Dosing Start Date: 12/02/21 Status: Ordered clonazePAM 0.5 mg oral tablet (20 sources) Benzodiazepine Start: 02-29-20 24 take 1 tablet by mouth once daily Clonazepam Active 0.5 MG PO Daily September 10, 2023 1:00am FreeTextSi tablet Orally Once a day; Note: Source Status: Taking; Provider: Ira Joya ( ) Start: 08-07-2023 take 1 tablet [...] procedure, # 1 tab(s), Refills(s) 0, Pharmacy: [facility]/pharmacy #[id number], 178, cm, 10/14/21 12:57:00 [...] Ordered docusate sodium 100 mg oral capsule (8 sources) Start: 02-10-2024 take 2 capsules by mouth once daily Docusate Sodium (DSS) 100 MG capsule Take 2 capsules by mouth Daily 02/10/2024 Active Start: 02-10-2024 End: 02-10-2024 take 100 mg [...] Ordered losartan potassium 100 mg oral tablet (11 sources) Angiotensin 2 Receptor Karen Start: 04-04-2024 [...] Ordered meclizine hydrochloride 25 mg oral tablet (20 sources) Antiemetic Start: 09-10-2023 take 1 tablet by mouth every twelve hours as needed Meclizine Active 25 MG PO Every 12 hours September 10, 2023 1:00am FreeTextSi tablet as needed Orally every 12 hrs; Note: Source Status: Taking; Provider: Ira Joya ( ) take 1 tablet by rachel th three times daily as needed for nausea [...] Ordered metoprolol tartrate 50 mg oral tablet (20 sources) beta-Adrenergic Karen Start: 04-04-2024 End: 10-01-2024 [...] Ordered naloxone hydrochloride 40 mg/ml nasal spray (9 sources) Opioid Antagonist naloxone (Narc an) 4 mg/0.1 mL nasal spray Administer 4 mg into affected nostril(s) if needed for opioid reversal. Active Nebulizers (Compressor/Nebulizer) misc (9 sources) Start: 09-15-2023 Nebulizers (Compressor/Nebulizer) misc Indications: Chronic hypoxemic respiratory failure (CMS/HCC) , Simple chronic bronchitis (CMS/HCC) , Wheezing , Panlobular emphysema (CMS/HCC) Use 4 times per day regularly and every 4 hours as needed for shortness of breath and wheezing as directed 1 each 09/15/2023 Active 10 ml ocrelizumab 30 mg/ml injection (20 sources) Start: 09-10-2023 Ocrelizumab Ac tive MG IV September 10, 2023 1:00am FreeTextSig: as directed Intravenous As Directed; Note: Source Status: Taking; Provider: Ira Joya ( ) Start: 02-26-2023 Ocrevus 300 MG /10ML solution Infuse into a venous catheter every 6 (six) months 02/26/2023 Active Ocrevus 300 MG/1 0ML as directed Intravenous As Directed Active ondansetron 4 mg disintegrating oral tablet (20 sources) Serotonin-3 Receptor Antagonist Start: 11-13-2022 take [...] oral tablet (20 sources) Anti-epileptic Agent Start: 12-28-2023 End: 04-19-2024 take 1 tablet by mouth at bedtime OXcarbazepine (Trileptal) 300 MG tablet Indications: Sensory disturbance Take 1 tablet (300 mg) by mouth at bedtime 30 tablet 2 04/19/2024 Active Start: 08-06-2021 take 2 tablets by mo [facility] twice daily Trileptal 300 mg Tab 600 [...] tablet Orally Twice a day Active Oxygen (18 sources) Start: 09-15-2023 oxygen (O2) ga s [...] Jan, Active predniSONE 10 mg oral tablet (20 sources) Start: 04-11-2024 take 3 tablets by [...] 200 mg oral capsule (20 sources) Start: 09-10-2023 End: 04-19-2024 take 1 capsule by mouth three times daily at bedtime pregabalin (Lyrica) 200 MG capsule Indications: Cervical radiculopathy TAKE ONE CAPSULE BY MOUTH THREE TIMES A DAY ( IN THE MORNING , IN THE EVENING , AND BEFORE BEDTIME ) 90 capsule 2 04/19/2024 Active Start: 08-06-2021 take 1 capsule by [facility] three times daily Lyrica 200 mg Cap 200 mg = 1 cap(s), Oral, TID, Refills(s) 0 Start Date: 08/06/21 Status: Ordered take 1 capsule by [facility] once daily at bedtime Pregabalin 200 [...] 08/06/21 Status: Ordered take 1 tablet by [facility] every twenty-four hours Primidone 50 MG [...] Active Start: 08-06-2021 take 2 tablets by [facility] three times daily SEROquel 25 mg Tab [...] Qty: 120 Tablet; Provider: Ira Chaudhry sennosides, intermediate 8.6 mg oral tablet (18 sources) Start: 04-02-2023 take 2 tablets by mouth twice daily as needed for constipation senna (Senokot) 8.6 MG tablet Indications: Constipation Take 2 tablets by mouth 2 (two) times a day as needed for constipation 04/02/2023 Active sodium chloride 9 mg/ml inhalation solution (9 sources) Start: 04-26-2024 sodium chlorid e 0.9 [...] 04/06/2024 Active spironolactone 25 mg oral tablet (10 sources) Aldosterone Antagonist Start: 04-04-2024 End: 10-15-2024 [...] 9:58am promethazine hydrochloride 25 mg oral tablet (20 sources) Phenothiazine Start: 03-12-2017 End: 02-15-2020 take [...] source) Other specified counseling Episodic Anxiety disorders (20 sources) Anxiety disorder, unspecified; Translations: [Anxiety] Onset: 2 Chronic Asthma (3 sources) Asthma; Translations: [Unspecified asthma, uncomplicated] Onset: 3 08-31-2019 Chronic Blindness and vision defects (1 source) Other visual disturbances; Translations: [OTHER VISUAL DISTURBANCES] Onset: 3 Episodic Chronic obstructive pulmonary disease and bronchiectasis (20 sources) Chronic obstructive lung disease; Translations: [Emphysema, unspecified] Onset: 2 08-31-2019 Chronic Disorders of lipid metabolism (11 sources) Hyperlipidemia; Translations: [Mixed hyperlipidemia] Onset: 3 08-31-2019 Chronic Esophageal disorders (19 sources) Gastroesophageal reflux disease; Translations: [Gastro-esophageal reflux disease without esophagitis] Onset: 3 12-01-2022 Chronic Essential hypertension (10 sources) Essential (primary) hypertension; Translations: [Essential hypertension] Onset: 3 12-01-2022 Chronic Fluid and electrolyte disorders (1 source) Hypo-osmolality and hyponatremia; Translations: [HYPO-OSMOLALITY AND HYPONATREMIA] Onset: 3 Episodic Genitourinary symptoms and ill-defined conditions (20 sources) Post-micturition incontinence ; Translations: [Urge incontinence of urine] Onset: 3 08-31-2019 Chronic Hyperplasia of prostate (3 sources) Benign prostatic hypertrophy with outflow obstruction; Translations: [Benign prostatic hyperplasia with lower urinary tract symptoms] Onset: 2 10-14-2021 Chronic Malaise and fatigue (3 sources) Weakness; Translations: [WEAKNESS] Onset: 3 Episodic Mood disorders (12 sources) Depressive disorder; Translations: [Major depressive disorder, recurrent, moderate] Onset: 2 08-31-2019 Chronic Multiple sclerosis (20 sources) Multiple sclerosis; Translations: [Multiple sclerosis] Onset: 3 09-21-2019 Chronic Comment on above: Aug 2000 Nausea and vomiting (15 sources) Nausea with vomiting, unspecified; Translations: [Nausea] Onset: 3 Episodic Nutritional deficiencies (9 sources) Moderate protein energy malnutrition; Translations: [Moderate protein-calorie malnutrition] Onset: 4 09-15-2023 Chronic Other aftercare (1 source) Other fdc (current) drug therapy; Translations: [OTH HALF-WAY CURRENT DRUG THERAPY] Onset: 3 Episodic Other aftercare (10 sources) Seen by palliative care physician; Translations: [Encounter for palliative care] Episodic Other aftercare (1 source) Encounter for palliative care Episodic Other aftercare (4 sources) Long-term current use of drug therapy; Translations: [correction (current) use of opiate analgesic] 09-10-2023 Episodic Other aftercare (1 source) long term care administrator (current) use of opiate analgesic; Translations: [Long-term (current) use of other medications] 09-17-2023 Episodic Other diseases of bladder and urethra (4 sources) Neurogenic bladder; Translations: [Neuromuscular dysfunction of bladder, unspecified] 04-12-2024 Chronic Other diseases of kidney and ureters (1 source) Urinary tract obstruction; Translations: [Other obstructive and reflux uropathy] Onset: 2 Episodic Other gastrointestinal disorders (14 sources) Constipation; Translations: [Constipation, unspecified] 09-17-2023 Episodic Other gastrointestinal disorders (9 sources) Constipation, unspecified; Translations: [Constipation, unspecified] Episodic Other male genital disorders (9 sources) Secondary erectile dysfunction; Translations: [Male erectile [...] 2 05-10-2024 Chronic Other nervous system disorders (18 sources) Chronic pain; Translations: [Other chronic pain] 09-17-2023 Chronic Other nervous system disorders (9 sources) Difficulty walking; Translations: [Difficulty in walking, not elsewhere classified] Onset: 3 12-01-2022 Chronic Other nervous system disorders (5 sources) Chronic pain syndrome; Translations: [Chronic pain syndrome] Onset: 4 05-10-2024 Chronic Other nervous system disorders (1 source) Paresthesia of skin; Translations: [PARESTHESIA OF SKIN] Onset: 3 Episodic Other nervous system disorders (4 sources) Tremor; Translations: [Tremor, unspecified] 04-12-2024 Episodic [...] OUT PT OTH RSN] Onset: 3 Episodic Respiratory failure; insufficiency; arrest (adult) (9 sources) Chronic hypoxemic respiratory failure; Translations: [Chronic respiratory failure with hypoxia] Onset: 4 09-14-2023 Chronic Spondylosis; intervertebral disc disorders; other back problems (1 source) Cervical radiculopathy; Translations: [Radiculopathy, cervical region] 04-18-2024 Episodic Substance-related disorders (19 sources) Nicotine dependence, cigarettes, uncomplicated; Translations: [Substance abuse] Onset: 3 12-01-2022 Chronic Substance-related disorders (9 sources) Marijuana user; Translations: [Cannabis use, unspecified, [...] Episodic/Chronic Conditions associated with dizziness or vertigo (9 sources) Vertigo of central origin; Translations: [Vertigo of central origin] Onset: 12-01-2022 12-01-2022 Episodic Gastritis and duodenitis (9 sources) Gastritis; Translations: [Gastritis, unspecified, without bleeding] Onset: 12-01-2022 12-01-2022 Episodic Genitourinary symptoms and ill-defined conditions (13 sources) Dysuria; Translations: [Increased frequency of urination] Onset: 12-12-2021 08-31-2019 Episodic Mood disorders (9 sources) Mood disorders Onset: 12-23-2023 12-23-2023 Other aftercare (9 sources) Polypharmacy ; Translations: [Other fdc (current) drug therapy] Onset: 08-04-2020 12-01-2022 Episodic Other connective tissue disease (9 sources) Muscle weakness; Translations: [Muscle weakness (generalized)] Onset: 12-01-2022 12-01-2022 Episodic Other diseases of veins and lymphatics (10 sources) Vascular insufficiency; Translations: [Venous insufficiency (chronic) (peripheral)] Onset: 11-27-2023 11-27-2023 Episodic Other disorders of stomach and duodenum (9 sources) Cyclical vomiting syndrome; Translations: [Cyclical vomiting syndrome unrelated to migraine] Onset: 12-01-2022 12-01-2022 Episodic Other lower respiratory disease (1 source) Shortness of breath; Translations: [SHORTNESS OF BREATH] Onset: 05-30-2022 Episodic Other nervous system disorders (9 sources) Abnormal gait; Translations: [Unsteadiness on feet] Onset: 12-01-2022 12-01-2022 Episodic Other nutritional; endocrine; and metabolic disorders (9 sources) Underweight; Translations: [Underweight] Onset: 12-01-2022 12-01-2022 Episodic Pneumonia (except that caused by tuberculosis or sexually transmitted disease) (1 source) Pneumonia, unspecified organism; Translations: [PNEUMONIA UNSPECIFIED ORGANISM] Onset: 05-30-2022 Episodic Residual codes; unclassified (10 sources) Insomnia; Translations: [Insomnia, unspecified] Onset: 12-01-2022 12-01-2022 Episodic Screening and history of mental health and substance abuse codes (11 sources) Ex-smoker; Translations: [Personal history of nicotine dependence] Onset: 12-23-2023 Resolved: 04-05-2024 08-31-2019 Episodic Unclassified (1 source) COUGH, UNSPECIFIED; Translations: [COUGH, UNSPECIFIED] Onset: 05-28-2022 Results Test Name Value Interpretation Reference Range Facility ALL SODIUMon 05-27-2024 Sodium [Moles/Vol] 144 mmol/L 136 - 145 mmol/L [facility] AMYLASEon 11-13-2022 Amylase [Catalytic activity/Vol] 37 U/L Normal 25-115 [facility] Comment on above: Performed By: #### A MY, CMP, LIPA ####[facility] [address] [place], [place] [address]ZbDr. Cortez Younger CBC AUTO DIFFon 11-13-2022 BASO # 0.1 103/ul Normal 0.0-0.1 [facility] Comment on above: Performed By: #### C BC #### [facility] [address] [address] [address] Cortez Younger Basophils/100 WBC (Bld) 1.3 % Normal 0.2-2.0 [facility] Comment on above: Performed By: #### C BC #### [facility] [address] [address] [address] Cortez Younger EO # 0.1 103/ul Normal 0.0-0.7 [facility] Comment on above: Performed By: #### C BC #### [facility] [address] [address] [address] Cortez Younger Eosinophils/100 WBC (Bld) 0.9 % Normal 0.9-7.0 [facility] Comment on above: Performed By: #### C BC #### [facility] [address] [address] [address] Cortez Younger Erythrocyte distribution width (RBC) [Ratio] 12.5 % Normal 11.0-15.0 [facility] Comment on above: Performed By: #### C BC #### [facility] [address] [address] [address] Cortez Younger Hematocrit (Bld) [Volume fraction] 42.3 % Normal 42.0-54.0 [facility] Comment on above: Performed By: #### C BC #### [facility] [address] [place] [address] Dr. Cortez Younger Hemoglobin (Bld) [Mass/Vol] 15.1 g/dL Normal 14.0-18.0 [facility] Comment on above: Performed By: #### C BC #### [facility] [address] [place] [address] Dr. Cortez Younger IG # 0.04 10e3/ul Critically high 0.00-0.03 [facility] Comment on above: Performed By: #### C BC #### [facility] [address] [place] [address] Dr. Cortez Younger IG % 0.6 % Critically high 0.0-0.5 [facility] Comment on above: Performed By: #### C BC #### [facility] [address] [place] [address] Dr. Cortez Younger LYMPH # 1.4 103/ul Normal 1.2-3.8 [facility] Comment on above: Performed By: #### C BC #### [facility] [address] [place] [address] Dr. Cortez Younger Lymphocytes/100 WBC (Bld) 20.7 % Normal 20.5-60.0 [facility] Comment on above: Performed By: #### C BC #### [facility] [address] [place] [address] Dr. Cortez Younger MANUAL DIFF REQ NO Normal [facility] Comment on above: Performed By: #### C BC #### [facility] [address] [place] [address] Dr. Cortez Younger MCH (RBC) [Entitic mass] 31.6 pg Normal 25.9-34.0 [facility] Comment on above: Performed By: #### C BC #### [facility] [address] [address] [address] Cortez Younger MCHC (RBC) [Mass/Vol] 35.7 g/dL Critically high 29.9-35.2 [facility] Comment on above: Performed By: #### C BC #### [facility] [address] [address] [address] Cortez Younger MCV (RBC) [Entitic vol] 88.5 fL Normal 80.0-94.0 [facility] Comment on above: Performed By: #### C BC #### [facility] [address] [address] [address] Cortez Younger MONO # 0.5 103/ul Normal 0.3-0.8 [facility] Comment on above: Performed By: #### C BC #### [facility] [address] [place] [address] Dr. Cortez Younger Monocytes/100 WBC (Bld) 7.7 % Normal 1.7-12.0 [facility] Comment on above: Performed By: #### C BC #### [facility] [address] [address] [address] Cortez Younger NEUT # 4.8 103/ul Normal 1.4-6.5 [facility] Comment on above: Performed By: #### C BC #### [facility] [address] [address] [address] Cortez Younger Neutrophils/100 WBC (Bld) 68.8 % Normal 43.0-75.0 [facility] Comment on above: Performed By: #### C BC #### [facility] [address] [address] [address] Cortez Younger Platelet mean volume (Bld) [Entitic vol] 9.0 fL Critically low 9.5-13.5 [facility] Comment on above: Performed By: #### C BC #### [facility] [address] [address] [address] Cortez Younger PLT 384 103/ul Normal 150-450 [facility] Comment on above: Performed By: #### C BC #### [facility] [address] [address] [address] Cortez Younger RBC 4.78 106/ul Normal 4.70-6.10 [facility] Comment on above: Performed By: #### C BC #### [facility] [address] [place] [address] Dr. Cortez Younger WBC 7.0 103/ul Normal 4.0-11.0 [facility] Comment on above: Performed By: #### C BC #### [facility] [address] [place] [address] Dr. Cortez Younger ER URINE PROFILEon 3 Bilirubin Ql (U) Negative Normal NEGATIVE [facility] Comment on above: Performed By: #### E RUR ####[facility] [address] [place], [place] [address]Dr. Cortez Younger Clarity (U) CLEAR Normal CLEAR [facility] Comment on above: Performed By: #### E RUR ####[facility] [address] [place], [place] [address]Dr. Cortez Younger Color (U) LT. YELLOW Normal YELLOW [facility] Comment on above: Performed By: #### E RUR ####[facility] [address] [place], [place] [address]DrFish Younger ERUAHD A micrscopic examina tion will be performed if indicated. Normal [facility] Comment on above: Performed By: #### E RUR ####[facility] [address] [place], [place] [address]Dr. Cortez Younger Glucose Ql (U) Negative Normal NEGATIVE [facility] [place] [facility] Comment on above: Performed By: #### E RUR ####[facility] [address] [place], [place] [address]Dr. Cortez Younger Hemoglobin Ql (U) Negative Normal NEGATIVE [facility] Comment on above: Performed By: #### E RUR ####[facility] [address] [place], [place] [address]Dr. Cortez Younger Ketones Ql (U) Negative Normal NEGATIVE [facility] [place] [facility] Comment on above: Performed By: #### E RUR ####[facility] [address] [address]Dr. Cortez Younger LEUKOCYTES Negative Normal NEGATIVE [facility] Comment on above: Performed By: #### E RUR ####[facility] [address] [place], [place] [address]Dr. Cortez Younger Nitrite Ql (U) Negative Normal NEGATIVE [facility] [place] [facility] Comment on above: Performed By: #### E RUR ####[facility] [address] [place], [place] [address]Dr. Cortez Younger pH (U) 7.5 [pH] Normal 5-9 [facility] Comment on above: Performed By: #### E RUR ####[facility] [address] [place], [place] [address]Dr. Cortez Younger SPEC GRAVITY <=1.005 Abnormal 1.005-<=1.025 [facility] Comment on above: Performed By: #### E RUR ####[facility] [address] [place], [place] [address]Dr. Cortez Younger UA PROTEIN Negative Normal NEGATIVE/ TRACE [facility] Comment on above: Performed By: #### E RUR ####[facility] [address] [place], [place] [address]Dr. Cortez Younger UR MICRO IND NOT INDICATED Normal [facility] Comment on above: Performed By: #### E RUR ####[facility] [address] [place], [place] [address]Dr. Cortez Younger Urobilinogen Qn (U) 0.2 {Fidelia'U}/dL Normal 0.2 - 1.0 [facility] Comment on above: Performed By: #### E RUR ####[facility] [address] [place], [place] [address]Dr. Cortez Younger LIPASEon 11-13-2022 Lipase [Catalytic activity/Vol] 111.0 U/L Normal 73.0-393.0 [facility] Comment on above: Performed By: #### A MY, CMP, LIPA ####[facility] [address] [place], [place] [address]Dr. Cortez Younger PROF 14(COMP METB)on 023 Albumin [Mass/Vol] 3.9 g/dL Normal 3.4-5.0 [facility] Comment on above: Performed By: #### A MY, CMP, LIPA ####[facility] [address] [address]Dr. Cortez Younger Albumin/Globulin [Mass ratio] 1.4 {ratio} Normal [facility] [facility] Comment on above: Performed By: #### A MY, CMP, LIPA ####[facility] [address] [place] [address]Dr. Cortez Younger ALP [Catalytic activity/Vol] 70 U/L Normal 46-116 [facility] Comment on above: Performed By: #### A MY, CMP, LIPA ####[facility] Qsbtetjaqi[address] [place] [address]Dr. Cortez Younger ALT [Catalytic activity/Vol] 24 U/L Normal 16-63 [facility] Comment on above: Performed By: #### A MY, CMP, LIPA ####[facility] Kloelpvalg[address] [place] [address]Dr. Cortez Younger Anion gap [Moles/Vol] 9.8 mmol/L Normal [facility] Comment on above: Performed By: #### A MY, CMP, LIPA ####[facility] Bhfiujejjj[address] [place] [address]Dr. Cortez Younger AST [Catalytic activity/Vol] 12 U/L Critically low 15-37 [facility] Comment on above: Performed By: #### A MY, CMP, LIPA ####[facility] [address]pbwmtms[address] [place] [address]Dr. Cortez Younger Bilirubin [Mass/Vol] 0.3 mg/dL Normal 0.2-1.0 [facility] Comment on above: Performed By: #### A MY, CMP, LIPA ####[facility] Zporcawunq[address] [place] [address]Dr. Cortez Younger Calcium [Mass/Vol] 9.2 mg/dL Normal 8.5-10.1 [facility] Comment on above: Performed By: #### A MY, CMP, LIPA ####[facility] Cbigkmanur[address] [place] [address]Dr. Cortez Younger Chloride [Moles/Vol] 98 mmol/L Normal 98-107 [facility] Comment on above: Performed By: #### A MY, CMP, LIPA ####[facility] Mmqhtgdktk32[address] [place] [address]Dr. Cortez Younger CO2 [Moles/Vol] 28.7 mmol/L Normal 21.0-32.0 [facility] Comment on above: Performed By: #### A MY, CMP, LIPA ####[facility] Kbczgymcen[address] [place], [place] [address]Dr. Eleanorvalerie Aren Creatinine [Mass/Vol] 0.88 mg/dL Normal 0.70-1.30 [facility] Comment on above: Performed By: #### A MY, CMP, LIPA ####[facility] Koqgpfvcgo[address] [place], [place] [address]Dr. Cortez Aren EGFR-AF KITTITIAN >60 Normal >=60 [facility] Comment on above: Performed By: #### A MY, CMP, LIPA ####[facility] Wx[address] [place], [place] [address]Dr. Cortez Aren EGFR-NON AF KITTITIAN >60 Normal >=60 [facility] Comment on above: Performed By: #### A MY, CMP, LIPA ####[facility] Aboiktihfg[address] [place], [place] [address]Dr. Cortez Aren Globulin (S) [Mass/Vol] 2.7 g/dL Normal [facility] Comment on above: Performed By: #### A MY, CMP, LIPA ####[facility] Tlbqwwvtaq[address] [place], [place] [address]Dr. Eleanorvalerie Aren Glucose [Mass/Vol] 105 mg/dL Normal 74-106 [facility] Comment on above: Performed By: #### A MY, CMP, LIPA ####[facility] [address]miy[address] [place], [place] [address]Dr. Cortez Younger Potassium [Moles/Vol] 3.5 mmol/L Normal 3.5-5.1 [facility] Comment on above: Performed By: #### A MY, CMP, LIPA ####[facility] Mptbkydcho[address] [place] [address]Dr. Cortez Younger Protein [Mass/Vol] 6.6 g/dL Normal 6.4-8.2 [facility] Comment on above: Performed By: #### A MY, CMP, LIPA ####[facility] Clvcorpdlj[address] [place] [address]Dr. Cortez Younger Sodium [Moles/Vol] 133 mmol/L Critically low 136-145 [facility] [place] Comment on above: Performed By: #### A MY, CMP, LIPA ####[facility] Mqkshktxfv04[address] [place] [address]Dr. Cortez Younger Urea nitrogen [Mass/Vol] 4.0 mg/dL Critically low 7.0-18.0 [facility] Comment on above: Performed By: #### A MY, CMP, LIPA ####[facility] Hpzhyjdhta94[address] [place] [address]Dr. Cortez Younger Urea nitrogen/Creatinin e [Mass ratio] 4.5 mg/mg Normal [facility] Comment on above: Performed By: #### A MY, CMP, LIPA ####[facility] Htqykpcakp[address] [place] [address]Dr. Cortez Younger XR ABD FLAT UP_PA Farideh [...] by: CRUZITO CRENSHAW Date: 2022-11-13 13:22 Normal [facility] FREE T4on 10-31-2022 Free T4 [Mass/Vol] 1.03 ng/dL Normal 0.76-1.46 [facility] Comment on above: Performed By: #### E RUR #### [facility] [address] [address] [address] Cortez Younger LIPID PROFILEon 10-31-2022 CHOL-HDL RATIO NORM SEE BELOW Normal [facility] Comment on above: Result Comment: 3.3 - 4.4 LOW RISK 4.4 - 7.1 AVERAGE RISK 7.1 - 11.0 MODERATE RISK >11.0 HIGH RISK Performed By: #### E RUR #### [facility] [address] [address] [address] Cortez Younger Cholesterol [Mass/Vol] 165 mg/dL Normal <=200 [facility] Comment on above: Performed By: #### E RUR #### [facility] [address] [place] [address] Dr. Cortez Younger Cholesterol in HDL [Mass/Vol] 59 mg/dL Normal 40-60 [facility] Comment on above: Performed By: #### E RUR #### [facility] [address] [address] [address] Cortez Younger Cholesterol in LDL [Mass/Vol] 83.8 mg/dL Normal [facility] Comment on above: Performed By: #### E RUR #### [facility] [address] [address] [address] Cortez Younger Cholesterol.total/ Cholesterol in HDL [Mass ratio] 2.8 {ratio} Normal [facility] Comment on above: Performed By: #### E RUR #### [facility] [id number] Cortez Younger HDL NORMAL > or = 60 mg/dl - LO W CARDIOVASCULAR RISK <40 mg/dl - HIGH CARDIOVASCULAR RISK Normal [facility] Comment on above: Performed By: #### E RUR #### [facility] [address] [place], [place] [id number] Dr. Cortez Younger LDL CALC NORMAL SEE BELOW Normal [facility] Comment on above: Result Comment: <100 mg/dl OPTIMAL 100 - 129 mg/dl NEAR OR ABOVE OPTIMAL 130 - 159 mg/dl BORDERLINE HIGH 160 - 189 mg/dl HIGH >190 mg/dl VERY HIGH Performed By: #### E RUR #### [facility] [address] [address] [address] Cortez Younger Triglyceride [Mass/Vol] 111 mg/dL Normal <=150 [facility] Comment on above: Performed By: #### E RUR #### [facility] [address] [address] [address] Cortez Younger VLDL CALC 22.2 mg/dL Normal [facility] Comment on above: Performed By: #### E RUR #### [facility] [address] [place], [place] [address] Dr. Cortez Younger MRI BRAIN WO W [...] Date: 2022-10-31 13:12 Normal [facility] PROF 14(COMP METB)on 023 Albumin [Mass/Vol] 4.0 g/dL Normal 3.4-5.0 [facility] Comment on above: Performed By: #### C MP ####[facility] [address] [place] [address]Dr. Cortez Aren Albumin/Globulin [Mass ratio] 1.3 {ratio} Normal [facility] Comment on above: Performed By: #### C MP ####[facility] [address]odypqrg[address] [place] [address]Dr. Cortez Aren ALP [Catalytic activity/Vol] 66 U/L Normal 46-116 [facility] Comment on above: Performed By: #### C MP ####[facility] Qzgeunacht[address] [place], [place] [address]Dr. Cortez Aren ALT [Catalytic activity/Vol] 21 U/L Normal 16-63 [facility] Comment on above: Performed By: #### C MP ####[facility] Ucrc[address] [place], [place] [address]Dr. Cortez Younger Anion gap [Moles/Vol] 9.4 mmol/L Normal [facility] Comment on above: Performed By: #### C MP ####[facility] Ffppnbujvy[address] [place], [place] [address]Dr. Cortez Aren AST [Catalytic activity/Vol] 10 U/L Critically low 15-37 [facility] Comment on above: Performed By: #### C MP ####[facility] Yglidhtbyz[address] [place], [place] [address]Dr. Cortez Younger Bilirubin [Mass/Vol] 0.4 mg/dL Normal 0.2-1.0 [facility] Comment on above: Performed By: #### C MP ####[facility] Ywsaefners[address] [place], [place] [address]Dr. Cortez Younger Calcium [Mass/Vol] 9.1 mg/dL Normal 8.5-10.1 [facility] Comment on above: Performed By: #### C MP ####[facility] Hfwylxmm[address] [place], [place] [address]Dr. Cortez Younger Chloride [Moles/Vol] 98 mmol/L Normal 98-107 [facility] Comment on above: Performed By: #### C MP ####[facility] [address]elfa[address] [place] [address]Dr. Cortez Younger CO2 [Moles/Vol] 29.8 mmol/L Normal 21.0-32.0 [facility] Comment on above: Performed By: #### C MP ####[facility] [address]ctaetauaj[address] [place] [address]Dr. Cortez Younger Creatinine [Mass/Vol] 0.89 mg/dL Normal 0.70-1.30 [facility] Comment on above: Performed By: #### C MP ####[facility] Jdqqwgyszj[address] [place] [address]Dr. Cortez Younger EGFR-AF KITTITIAN >60 Normal >=60 [facility] Comment on above: Performed By: #### C MP ####[facility] Dgehmfeptp[address] [place], [place] [address]Dr. Cortez Younger EGFR-NON AF KITTITIAN >60 Normal >=60 [facility] Comment on above: Performed By: #### C MP ####[facility] [address]qep[address] [place], [place] [address]Dr. Cortez Younger Globulin (S) [Mass/Vol] 3.1 g/dL Normal [facility] Comment on above: Performed By: #### C MP ####[facility] Unqcmmhzxn[address] [place], [place] [address]Dr. Cortez Younger Glucose [Mass/Vol] 109 mg/dL Critically high 74-106 [facility] Comment on above: Performed By: #### C MP ####[facility] [address]vevaquffj[address] [place], [place] [address]Dr. Cortez Younger Potassium [Moles/Vol] 4.2 mmol/L Normal 3.5-5.1 [facility] Comment on above: Performed By: #### C MP ####[facility] [address]auh[address] [place], [place] [address]Dr. Cortez Younger Protein [Mass/Vol] 7.1 g/dL Normal 6.4-8.2 [facility] Comment on above: Performed By: #### C MP ####[facility] S[address]wic[address] [place], [place] [address]DfFish Younger Sodium [Moles/Vol] 133 mmol/L Critically low 136-145 [facility] [place] Comment on above: Performed By: #### C MP ####[facility] Bqtw[address] [place], [place] [address]GiFish Younger Urea nitrogen [Mass/Vol] 7.0 mg/dL Normal 7.0-18.0 [facility] Comment on above: Performed By: #### C MP ####[facility] [address]sg[address]iz[address] [place], [place] [address]Pr. Cortez Younger Urea nitrogen/Creatinin e [Mass ratio] 7.9 mg/mg Normal [facility] Comment on above: Performed By: #### C MP ####[facility] Xbynmuiedx8[address] [place], [place] [address]WwFish Younger TSHon 10-31-2022 TSH 1.574 uIU/mL Normal 0.358-3.740 [facility] Comment on above: Performed By: #### T SH #### [facility] [address] [address] [address] Cortez Younger COMPLIANCE DRUG SCREENon PDF . Normal [facility] Comment on above: Performed By: #### E RUR #### [facility] [address] [place] [address] Dr. Cortez Younger Summary FINAL Normal [facility] Comment on above: Result Comment: = TOXASSURE COMP DRUG ANALYSIS,UR = Test Result Flag Units Drug Present Desmethyldiazepam [...] test is not intended to distinguish between rkaao-3-ebueffsxjddejkgivfhi, the predominant form of THC in most herbal or marijuana-based products, and ughnu-0-ooejbgrqvvknnikqozaf. Norhydrocodone 1620 ng/mg creat Norhydrocodone is an expected metabolite of hydrocodone. Primidone PRESENT Phenobarbital PRESENT Phenobarbital is an expected metabolite of primidone; Phenobarbital may also be administered as a prescription drug. Pregabalin PRESENT Oxcarbazepine MHD PRESENT Oxcarbazepine MHD is the active metabolite of oxcarbazepine and eslicarbazepine. Baclofen PRESENT Acetaminophen PRESENT Metoprolol PRESENT = Test Result Flag Units Ref Range Creatinine 20 mg/dL >=20 = Declared Medications: Medication list was not provided. = For clinical consultation, please call . = Performed By: #### E RUR #### [facility] [address] [address] [address] Cortez Younger HYDROCODONE AND METABOLITE, URINEon 10-24-2022 Hydrocodone 55 ng/mL Normal [facility] Comment on above: Performed By: #### E RUR #### [facility] [address] [place] [address] Dr. Cortez Younger Hydromorphone Negative Normal [facility] Comment on above: Result Comment: This test was developed and its performance characteristics determined by [facility]. It has not been cleared or approved by the Food and Drug Administration. Performed By: #### E RUR #### [facility] [address] [place] [address] Dr. Cortez Younger OSMOLALITYon 10-20-2022 Osmolality QNSREP Normal [facility] Comment on above: Result Comment: Spec imen quantity insufficient for verification by repeat analysis. contacted Lynda at your facility on 10-20-2022 Performed By: #### C BC #### [facility] [address] [place] [address] Dr. Cortez Younger OSMOLALITY URINEon 3 Osmolality, Urine 119 mOsmol/kg Normal [facility] Comment on above: Result Comment: 24 h r : 300 - 900 Random: 50 - 1400 After 12hr fluid restriction: >850 Performed By: #### O SMOU ####[facility] [address] [place] [address]Dr. Cortez Younger CBC AUTO DIFFon 10-16-2022 BASO # 0.0 103/ul Normal 0.0-0.1 [facility] Comment on above: Performed By: #### C BC ####[facility] [address] [place] [address]Dr. Cortez Younger Basophils/100 WBC (Bld) 0.3 % Normal 0.2-2.0 [facility] Comment on above: Performed By: #### C BC ####[facility] Fxwgmxheba[address] [place] [address]Dr. Cortez Younger EO # 0.0 103/ul Normal 0.0-0.7 [facility] Comment on above: Performed By: #### C BC ####[facility] [address]auvvhf[address] [place], [place] [address]Dr. Cortez Younger Eosinophils/100 WBC (Bld) 0.2 % Critically low 0.9-7.0 [facility] Comment on above: Performed By: #### C BC ####[facility] Xbitvyigzr[address] [place], [place] [address]Dr. Cortez Younger Erythrocyte distribution width (RBC) [Ratio] 12.1 % Normal 11.0-15.0 [facility] Comment on above: Performed By: #### C BC ####[facility] Ymashaasxn[address] [place], [place] [address]Dr. Cortez Younger Hematocrit (Bld) [Volume fraction] 45.9 % Normal 42.0-54.0 [facility] Comment on above: Performed By: #### C BC ####[facility] [address]nc[address] [place], [place] [address]Dr. Cortez Younger Hemoglobin (Bld) [Mass/Vol] 16.7 g/dL Normal 14.0-18.0 [facility] Comment on above: Performed By: #### C BC ####[facility] Pxhhoaep[address] [place], [place] [address]Dr. Cortez Younger IG # 0.06 10e3/ul Critically high 0.00-0.03 [facility] Comment on above: Performed By: #### C BC ####[facility] Gmlhnxmy[address] [place], [place] [address]Dr. Cortez Younger IG % 0.5 % Normal 0.0-0.5 [facility] Comment on above: Performed By: #### C BC ####[facility] [address]spcoc[address] [place] [address]Dr. Cortez Aren LYMPH # 1.5 103/ul Normal 1.2-3.8 [facility] Comment on above: Performed By: #### C BC ####[facility] [address]flcxbuga[address] [place] [address]Dr. Cortez Aren Lymphocytes/100 WBC (Bld) 13.5 % Critically low 20.5-60.0 [facility] Comment on above: Performed By: #### C BC ####[facility] Qk[address]vvhgg[address] [place] [address]Dr. Eleanorvalerie Younger MANUAL DIFF REQ NO Normal [facility] Comment on above: Performed By: #### C BC ####[facility] [address]zxoljphai[address] [place] [address]Dr. Cortez Aren MCH (RBC) [Entitic mass] 31.2 pg Normal 25.9-34.0 [facility] Comment on above: Performed By: #### C BC ####[facility] I[address]az[address]xwc[address] [place], [place] [address]Dr. Cortez Aren MCHC (RBC) [Mass/Vol] 36.4 g/dL Critically high 29.9-35.2 [facility] Comment on above: Performed By: #### C BC ####[facility] Qyrefiujrh[address] [place] [address]Dr. Cortez Younger MCV (RBC) [Entitic vol] 85.6 fL Normal 80.0-94.0 [facility] Comment on above: Performed By: #### C BC ####[facility] [address] [place], [place] [address]Dr. Eleanorvalerie Aren MONO # 0.6 103/ul Normal 0.3-0.8 [facility] Comment on above: Performed By: #### C BC ####[facility] Mxbubwagin[address] [place], [place] [address]Dr. Eleanorvalerie Younger Monocytes/100 WBC (Bld) 5.4 % Normal 1.7-12.0 [facility] Comment on above: Performed By: #### C BC ####[facility] [address] [place], [place] [address]Dr. Cortez Younger NEUT # 8.9 103/ul Critically high 1.4-6.5 [facility] Comment on above: Performed By: #### C BC ####[facility] [address] [place] [phone]. Cortez Younger Neutrophils/100 WBC (Bld) 80.1 % Critically high 43.0-75.0 [facility] Comment on above: Performed By: #### C BC ####[facility] [address] [place] [phone]. Cortez Younger Platelet mean volume (Bld) [Entitic vol] 9.7 fL Normal 9.5-13.5 [facility] Comment on above: Performed By: #### C BC ####[facility] [address]qsxazl[address] [place] [phone]. Cortez Younger PLT 364 103/ul Normal 150-450 [facility] Comment on above: Performed By: #### C BC ####[facility] [address]rs[address] [place] [phone]. Cortez Younger RBC 5.36 106/ul Normal 4.70-6.10 [facility] Comment on above: Performed By: #### C BC ####[facility] [address]suh[address] [place] [phone]. Cortez Younger WBC 11.1 103/ul Critically high 4.0-11.0 [facility] Comment on above: Performed By: #### C BC ####[facility] [address]ne[address] [place] [phone]. Cortez Younger Covid-19 [facility] ([facility])on SARS-CoV-2 (COVID-19) RNA AXEL+probe Ql (Unsp spec) Not detected Normal NOT DETECTED [facility] Comment on above: Result Comment: [...] for this test is supported by the [place] of [employer] and Human Service's declaration that [...] be used). Performed By: #### C VDTB ####[facility] [address]fsxtkphd[address] [place] [address]Dr. Cortez Younger DRUG SCREEN RAPID (URINE)on 10-16-2022 AMP Negative Normal NEGATIVE [facility] Comment on above: Performed By: #### C BC #### [facility] [address] [place] [address] Dr. Cortez Younger BAR Positive Abnormal NEGATIVE [facility] Comment on above: Performed By: #### C BC #### [facility] [address] [place] [address] Dr. Cortez Younger BUP Negative Normal NEGATIVE [facility] Comment on above: Performed By: #### C BC #### [facility] [address] [place] [address] Dr. Cortez Younger BZO Positive Abnormal NEGATIVE [facility] Comment on above: Performed By: #### C BC #### [facility] [address] [place] [address] Dr. Cortez Younger [place] Negative Normal NEGATIVE [facility] Comment on above: Performed By: #### C BC #### [facility] [address] [place] [address] Dr. Cortez Younger CUT-OFFS SEE BELOW Normal [facility] Comment on above: Result Comment: [...] By: #### C BC #### [facility] [address] [place] [address] Dr. Cortez Younger DRUG CUT HEADER DRUG CLASS TEST SYST EM CUT-OFF CONCENTRATIONS ARE FOLLOWS: Normal [facility] Comment on above: Performed By: #### C BC #### [facility] [address] [place] [address] Dr. Cortez Younger mAMP Negative Normal NEGATIVE [facility] Comment on above: Performed By: #### C BC #### [facility] [address] [place] [address] Dr. Cortez Younger MTD Negative Normal NEGATIVE [facility] Comment on above: Performed By: #### C BC #### [facility] [address] [place] [address] Dr. Cortez Younger OPI Positive Abnormal NEGATIVE [facility] Comment on above: Performed By: #### C BC #### [facility] [address] [place] [address] Dr. Cortez Younger OXY Negative Normal NEGATIVE [facility] Comment on above: Performed By: #### C BC #### [facility] [address] [place] [address] Dr. Cortez Younger PCP Negative Normal NEGATIVE [facility] Comment on above: Performed By: #### C BC #### [facility] [address] [place] [address] Dr. Cortez Younger PPX Negative Normal NEGATIVE [facility] Comment on above: Performed By: #### C BC #### [facility] [address] [place] [address] Dr. Cortez Younger TCA Negative Normal NEGATIVE [facility] Comment on above: Performed By: #### C BC #### [facility] [address] [place] [address] Dr. Cortez Younger THC Positive Abnormal NEGATIVE [facility] Comment on above: Performed By: #### C BC #### [facility] [address] [address] [address] Cortez Younger ER URINE PROFILEon 3 Bilirubin Ql (U) Negative Normal NEGATIVE [facility] Comment on above: Performed By: #### C BC #### [facility] [address] [place] [address] Dr. Cortez Younger Clarity (U) CLEAR Normal CLEAR [facility] Comment on above: Performed By: #### C BC #### [facility] [address] [place] [address] Dr. Cortez Younger Color (U) LT. YELLOW Normal YELLOW [facility] Comment on above: Performed By: #### C BC #### [facility] [address] [place] [address] Dr. Cortez Younger ERUAHD A micrscopic examina tion will be performed if indicated. Normal [facility] Comment on above: Performed By: #### C BC #### [facility] [address] [place] [address] Dr. Cortez Younger Glucose Ql (U) Negative Normal NEGATIVE [facility] Comment on above: Performed By: #### C BC #### [facility] [address] [place] [address] Dr. Cortez Younger Hemoglobin Ql (U) Negative Normal NEGATIVE [facility] Comment on above: Performed By: #### C BC #### [facility] [address] [place] [address] Dr. Cortez Younger Ketones Ql (U) Negative Normal NEGATIVE [facility] Comment on above: Performed By: #### C BC #### [facility] [address] [place] [address] Dr. Cortez Younger LEUKOCYTES Negative Normal NEGATIVE [facility] Comment on above: Performed By: #### C BC #### [facility] [address] [place] [address] Dr. Cortez Younger Nitrite Ql (U) Negative Normal NEGATIVE [facility] Comment on above: Performed By: #### C BC #### [facility] [address] [address] [address] Cortez Younger pH (U) 7.5 [pH] Normal 5-9 [facility] Comment on above: Performed By: #### C BC #### [facility] [address] [address] [address] Cortez Younger SPEC GRAVITY <=1.005 Abnormal 1.005-<=1.025 [facility] Comment on above: Performed By: #### C BC #### [facility] [address] [address] [address] Cortez Younger UA PROTEIN Negative Normal NEGATIVE/ TRACE [facility] Comment on above: Performed By: #### C BC #### [facility] [address] [place] [address] Dr. Cortez Younger UR MICRO IND NOT INDICATED Normal [facility] Comment on above: Performed By: #### C BC #### [facility] [address] [place] [address] Dr. Cortez Younger Urobilinogen Qn (U) 0.2 {Fidelia'U}/dL Normal 0.2 - 1.0 [facility] Comment on above: Performed By: #### C BC #### [facility] [address] [place] [address] Dr. Cortez Younger NAon 10-16-2022 Sodium [Moles/Vol] 125 mmol/L Critically low 136-145 [facility] [place] Comment on above: Performed By: #### E RUR #### [facility] [address] [place] [address] Dr. Cortez Younger POTASSIUM URINEon 10-16-2022 UR POTASSIUM 11.8 mmol/L Normal [facility] Comment on above: Performed By: #### K U ####[facility] [address] [address]Dr. Cortez Younger PROF 14(COMP METB)on 023 Albumin [Mass/Vol] 4.2 g/dL Normal 3.4-5.0 [facility] Comment on above: Performed By: #### E RUR #### [facility] [address] [place] [address] Dr. Cortez Younger Albumin/Globulin [Mass ratio] 1.3 {ratio} Normal [facility] Comment on above: Performed By: #### E RUR #### [facility] [address] [place] [address] Dr. Cortez Younger ALP [Catalytic activity/Vol] 75 U/L Normal 46-116 [facility] Comment on above: Performed By: #### E RUR #### [facility] [address] [place] [address] Dr. Cortez Younger ALT [Catalytic activity/Vol] 23 U/L Normal 16-63 [facility] Comment on above: Performed By: #### E RUR #### [facility] [address] [place] [address] Dr. Cortez Younger Anion gap [Moles/Vol] 9.7 mmol/L Normal [facility] Comment on above: Performed By: #### E RUR #### [facility] [address] [place] [address] Dr. Cortez Younger AST [Catalytic activity/Vol] 16 U/L Normal 15-37 [facility] Comment on above: Performed By: #### E RUR #### [facility] [address] [place] [address] Dr. Cortze Younger Bilirubin [Mass/Vol] 0.4 mg/dL Normal 0.2-1.0 [facility] Comment on above: Performed By: #### E RUR #### [facility] [address] [place] [address] Dr. Cortez Younger Calcium [Mass/Vol] 9.1 mg/dL Normal 8.5-10.1 [facility] Comment on above: Performed By: #### E RUR #### [facility] [address] [place] [address] Dr. Cortez Younger Chloride [Moles/Vol] 88 mmol/L Critically low 98-107 [facility] Comment on above: Performed By: #### E RUR #### [facility] [address] [place] [address] Dr. Cortez Younger CO2 [Moles/Vol] 26.5 mmol/L Normal 21.0-32.0 [facility] Comment on above: Performed By: #### E RUR #### [facility] [address] [place] [address] Dr. Cortez Younger Creatinine [Mass/Vol] 0.73 mg/dL Normal 0.70-1.30 [facility] Comment on above: Performed By: #### E RUR #### [facility] [address] [place] [address] Dr. Cortez Younger EGFR-AF KITTITIAN >60 Normal >=60 [facility] Comment on above: Performed By: #### E RUR #### [facility] [address] [place] [address] Dr. Cortez Younger EGFR-NON AF KITTITIAN >60 Normal >=60 [facility] Comment on above: Performed By: #### E RUR #### [facility] [address] [place] [address] Dr. Cortez Younger Globulin (S) [Mass/Vol] 3.2 g/dL Normal [facility] Comment on above: Performed By: #### E RUR #### [facility] [address] [place] [address] Dr. Cortez Younger Glucose [Mass/Vol] 109 mg/dL Critically high 74-106 T [facility] Comment on above: Performed By: #### E RUR #### [facility] [address] [place] [address] Dr. Cortez Younger Potassium [Moles/Vol] 4.2 mmol/L Normal 3.5-5.1 [facility] Comment on above: Performed By: #### E RUR #### [facility] [address] [place] [address] Dr. Cortez Younger Protein [Mass/Vol] 7.4 g/dL Normal 6.4-8.2 [facility] Comment on above: Performed By: #### E RUR #### [facility] [address] [place] [address] Dr. Cortez Younger Sodium [Moles/Vol] 120 mmol/L Critically low 136-145 Th [place] Comment on above: Performed By: #### E RUR #### [facility] [address] [place] [address] Dr. Cortez Younger Urea nitrogen [Mass/Vol] 7.0 mg/dL Normal 7.0-18.0 [facility] Comment on above: Performed By: #### E RUR #### [facility] [address] [place] [address] Dr. Cortez Younger Urea nitrogen/Creatinin e [Mass ratio] 9.6 mg/mg Normal [facility] Comment on above: Performed By: #### E RUR #### [facility] [address] [place] [address] Dr. Cortez Younger SODIUM RANDOM URINEon 2022 Sodium (U) [Moles/Vol] 26 mmol/L Critically low 30-90 [facility] Comment on above: Performed By: #### N AU ####[facility] [address] [place], [place] [address]Dr. Cortez Younger ACETONE SERUMon 10-07-2022 ACETONE Negative Normal NEGATIVE [facility] Comment on above: Performed By: #### E RUR #### [facility] [address] [place] [address] Dr. Cortez Younger CBC AUTO DIFFon 10-07-2022 BASO # 0.1 103/ul Normal 0.0-0.1 [facility] Comment on above: Performed By: #### C BC ####[facility] [address] [place], [place] [address]DrFish Younger Basophils/100 WBC (Bld) 0.8 % Normal 0.2-2.0 [facility] Comment on above: Performed By: #### C BC ####[facility] [address] [place], [place] [address]DrFish Younger EO # 0.0 103/ul Normal 0.0-0.7 [facility] Comment on above: Performed By: #### C BC ####[facility] [address] [place], [place] [address]Dr. Cortez Younger Eosinophils/100 WBC (Bld) 0.2 % Critically low 0.9-7.0 [facility] Comment on above: Performed By: #### C BC ####[facility] [address] [address]Dr. Cortez Younger Erythrocyte distribution width (RBC) [Ratio] 12.1 % Normal 11.0-15.0 [facility] Comment on above: Performed By: #### C BC ####[facility] [address] [place], [place] [address]Dr. Cortez Younger Hematocrit (Bld) [Volume fraction] 42.9 % Normal 42.0-54.0 [facility] Comment on above: Performed By: #### C BC ####[facility] [address] [place], [place] [address]Dr. Cortez Younger Hemoglobin (Bld) [Mass/Vol] 15.4 g/dL Normal 14.0-18.0 [facility] Comment on above: Performed By: #### C BC ####[facility] [address] [place], [place] [address]Dr. Cortez Younger IG # 0.04 10e3/ul Critically high 0.00-0.03 [facility] Comment on above: Performed By: #### C BC ####[facility] [address] [place], [place] [address]Dr. Cortez Younger IG % 0.4 % Normal 0.0-0.5 [facility] Comment on above: Performed By: #### C BC ####[facility] [address] [place], [place] [address]Dr. Cortez Younger LYMPH # 1.3 103/ul Normal 1.2-3.8 [facility] Comment on above: Performed By: #### C BC ####[facility] [address] [place], [place] [address]Dr. Cortez Younegr Lymphocytes/100 WBC (Bld) 13.7 % Critically low 20.5-60.0 [facility] Comment on above: Performed By: #### C BC ####[facility] [address] [address]Dr. Cortez Aren MANUAL DIFF REQ NO Normal [facility] Comment on above: Performed By: #### C BC ####[facility] [address] [address]Dr. Cortez Younger MCH (RBC) [Entitic mass] 31.4 pg Normal 25.9-34.0 [facility] Comment on above: Performed By: #### C BC ####[facility] [address] [address]Dr. Cortez Aren MCHC (RBC) [Mass/Vol] 35.9 g/dL Critically high 29.9-35.2 [facility] Comment on above: Performed By: #### C BC ####[facility] [address] [address]Dr. Eleanorvalerie Younger MCV (RBC) [Entitic vol] 87.4 fL Normal 80.0-94.0 [facility] Comment on above: Performed By: #### C BC ####[facility] [address] [place], [place] [address]Dr. Cortez Aren MONO # 0.4 103/ul Normal 0.3-0.8 [facility] Comment on above: Performed By: #### C BC ####[facility] [address] [place], [place] [address]Dr. Eleanorvalerie Younger Monocytes/100 WBC (Bld) 3.6 % Normal 1.7-12.0 [facility] Comment on above: Performed By: #### C BC ####[facility] [address] [address]Dr. Cortez Younger NEUT # 7.9 103/ul Critically high 1.4-6.5 [facility] Comment on above: Performed By: #### C BC ####[facility] [address] [place], [place] [address]Dr. Cortze Younger Neutrophils/100 WBC (Bld) 81.3 % Critically high 43.0-75.0 [facility] Comment on above: Performed By: #### C BC ####[facility] [address] [address]Dr. Cortez Younger Platelet mean volume (Bld) [Entitic vol] 8.8 fL Critically low 9.5-13.5 [facility] Comment on above: Performed By: #### C BC ####[facility] [address] [address]Dr. Cortez Younger PLT 371 103/ul Normal 150-450 [facility] Comment on above: Performed By: #### C BC ####[facility] [address] [address]Dr. Cortez Younger RBC 4.91 106/ul Normal 4.70-6.10 [facility] Comment on above: Performed By: #### C BC ####[facility] [address] [address]Dr. Cortez Younger WBC 9.8 103/ul Normal 4.0-11.0 [facility] Comment on above: Performed By: #### C BC ####[facility] [address] [address]Dr. Cortez Younger CRPon 10-07-2022 CRP [Mass/Vol] mg/L Normal <=1.0 [facility] Comment on above: Performed By: #### L IPA, TSH, CRP, CMP ####[facility] [address] [id number]. Cortez Younger ER URINE PROFILEon 3 Bilirubin Ql (U) Negative Normal NEGATIVE [facility] Comment on above: Performed By: #### E RUR #### [facility] [address] [place] [address] Dr. Cortez Younger Clarity (U) CLEAR Normal CLEAR [facility] Comment on above: Performed By: #### E RUR #### [facility] [address] [place] [address] Dr. Cortez Younger Color (U) LT. YELLOW Normal YELLOW [facility] Comment on above: Performed By: #### E RUR #### [facility] [address] [place] [address] Dr. Cortez PRESTON A micrscopic examina tion will be performed if indicated. Normal [facility] Comment on above: Performed By: #### E RUR #### [facility] [address] [place] [address] Dr. Cortez Younger Glucose Ql (U) Negative Normal NEGATIVE [facility] Comment on above: Performed By: #### E RUR #### [facility] [address] [place] [address] Dr. Cortez Younger Hemoglobin Ql (U) Negative Normal NEGATIVE [facility] Comment on above: Performed By: #### E RUR #### [facility] [address] [place] [address] Dr. Cortez Younger Ketones Ql (U) Negative Normal NEGATIVE [facility] Comment on above: Performed By: #### E RUR #### [facility] [address] [place] [address] Dr. Cortez Younger LEUKOCYTES Negative Normal NEGATIVE [facility] Comment on above: Performed By: #### E RUR #### [facility] [address] [place] [address] Dr. Cortez Younger Nitrite Ql (U) Negative Normal NEGATIVE [facility] Comment on above: Performed By: #### E RUR #### [facility] [address] [place] [address] Dr. Cortez Younger pH (U) 7.5 [pH] Normal 5-9 [facility] Comment on above: Performed By: #### E RUR #### [facility] [address] [place] [address] Dr. Cortez Younger SPEC GRAVITY <=1.005 Abnormal 1.005-<=1.025 [facility] Comment on above: Performed By: #### E RUR #### [facility] [address] [place] [address] Dr. Cortez Younger UA PROTEIN Negative Normal NEGATIVE/ TRACE [facility] Comment on above: Performed By: #### E RUR #### [facility] [address] [place] [address] Dr. Cortez Younger UR MICRO IND NOT INDICATED Normal [facility] Comment on above: Performed By: #### E RUR #### [facility] [address] [address] [address] Cotrez Younger Urobilinogen Qn (U) 0.2 {Fidelia'U}/dL Normal 0.2 - 1.0 [facility] Comment on above: Performed By: #### E RUR #### [facility] [address] [address] [address] Cortez Younger LACTATE/LACTIC ACIDon 2022 Lactate [Moles/Vol] 1.0 mmol/L Normal 0.4-2.0 [facility] Comment on above: Performed By: #### E RUR #### [facility] [address] [address] [address] Cortez Younger LIPASEon 10-07-2022 Lipase [Catalytic activity/Vol] 84.0 U/L Normal 73.0-393.0 [facility] Comment on above: Performed By: #### L IPA, TSH, CRP, CMP ####[facility] [address] [address]DrFish Younger PROF 14(COMP METB)on 023 Albumin [Mass/Vol] 3.9 g/dL Normal 3.4-5.0 [facility] Comment on above: Performed By: #### L IPA, TSH, CRP, CMP ####[facility] [address] [address]DrFish Younger Albumin/Globulin [Mass ratio] 1.7 {ratio} Normal [facility] Comment on above: Performed By: #### L IPA, TSH, CRP, CMP ####[facility] [address] [address]DrFish Younger ALP [Catalytic activity/Vol] 78 U/L Normal 46-116 [facility] Comment on above: Performed By: #### L IPA, TSH, CRP, CMP ####[facility] [address] [address]DrFish Younger ALT [Catalytic activity/Vol] 28 U/L Normal 16-63 [facility] Comment on above: Performed By: #### L IPA, TSH, CRP, CMP ####[facility] [address] [address]Dr. Cortez Younger Anion gap [Moles/Vol] 12.1 mmol/L Normal [facility] Comment on above: Performed By: #### L IPA, TSH, CRP, CMP ####[facility] [address] [address]Dr. Cortez Younger AST [Catalytic activity/Vol] 15 U/L Normal 15-37 [facility] Comment on above: Performed By: #### L IPA, TSH, CRP, CMP ####[facility] [address] [place], [place] [address]Dr. Cortez Younger Bilirubin [Mass/Vol] 0.5 mg/dL Normal 0.2-1.0 [facility] Comment on above: Performed By: #### L IPA, TSH, CRP, CMP ####[facility] [address] [place], [place] [address]Dr. Cortez Younger Calcium [Mass/Vol] 8.6 mg/dL Normal 8.5-10.1 [facility] Comment on above: Performed By: #### L IPA, TSH, CRP, CMP ####[facility] [address] [place], [place] [address]Dr. Coretz Younger Chloride [Moles/Vol] 100 mmol/L Normal 98-107 [facility] Comment on above: Performed By: #### L IPA, TSH, CRP, CMP ####[facility] [address] [place], [place] [address]Dr. Cortez Younger CO2 [Moles/Vol] 28.8 mmol/L Normal 21.0-32.0 [facility] Comment on above: Performed By: #### L IPA, TSH, CRP, CMP ####[facility] [address] [place], [place] [address]Dr. Cortez Younger Creatinine [Mass/Vol] 0.70 mg/dL Normal 0.70-1.30 [facility] Comment on above: Performed By: #### L IPA, TSH, CRP, CMP ####[facility] [address] [id number]. Cortez Younger EGFR-AF KITTITIAN >60 Normal >=60 [facility] Comment on above: Performed By: #### L IPA, TSH, CRP, CMP ####[facility] [address] [place], [place] [address]Nx. Cortez oYunger EGFR-NON AF KITTITIAN >60 Normal >=60 [facility] Comment on above: Performed By: #### L IPA, TSH, CRP, CMP ####[facility] [address] [phone]. Cortez Younger Globulin (S) [Mass/Vol] 2.3 g/dL Normal [facility] Comment on above: Performed By: #### L IPA, TSH, CRP, CMP ####[facility] [address] [address]Dr. Cortez Younger Glucose [Mass/Vol] 111 mg/dL Critically high 74-106 [facility] Comment on above: Performed By: #### L IPA, TSH, CRP, CMP ####[facility] [address] [address]Dr. Cortez Younger Potassium [Moles/Vol] 3.9 mmol/L Normal 3.5-5.1 [facility] Comment on above: Performed By: #### L IPA, TSH, CRP, CMP ####[facility] [address] [id number]. Cortez Younger Protein [Mass/Vol] 6.2 g/dL Critically low 6.4-8.2 [facility] Comment on above: Performed By: #### L IPA, TSH, CRP, CMP ####[facility] [address] [address]Dr. Cortez Younger Sodium [Moles/Vol] 137 mmol/L Normal 136-145 [facility] Comment on above: Performed By: #### L IPA, TSH, CRP, CMP ####[facility] [address] [id number]. Cortez Younger Urea nitrogen [Mass/Vol] 6.0 mg/dL Critically low 7.0-18.0 [facility] Comment on above: Performed By: #### L IPA, TSH, CRP, CMP ####[facility] [id number] [place], [place] [address]JbFish Younger Urea nitrogen/Creatinin e [Mass ratio] 8.6 mg/mg Normal [facility] Comment on above: Performed By: #### L IPA, TSH, CRP, CMP ####[facility] [address] [place], [place] [address]EcDr. Cortez Younger SED RATE MONETTAERGRENon 2022 SED RATE <1 Normal <=20 [facility] Comment on above: Performed By: #### C BC #### [facility] [address] [place], [place] [address] Dr. Cortez Younger TSHon 10-07-2022 TSH 1.031 uIU/mL Normal 0.358-3.740 [facility] Comment on above: Performed By: #### L IPA, TSH, CRP, CMP ####[facility] [id number] [place], [place] [address]ZwFish Younger Covid-19 PCR ([facility]on 05-13 SARS-CoV-2 (COVID-19) RNA AXEL+probe Ql (Unsp spec) Not detected Normal NOT DETECTED [facility] Comment on above: Result Comment: [...] for this test is supported by the Inside Sales Trainer of Health and Human Service's declaration that [...] By: #### C BC #### [facility] Laboratory [address] [place] [address] Dr. Cortez Younger INFLUENZA A AND B AGon 05-28 [facility] SEE BELOW Normal [facility] Comment on above: Result Comment: Nega tive for Flu A protein angiten. Infection due to Flu A cannot be ruled out. Flu A angiten in the sample may be below the detection limit of the test. Performed By: #### E RUR #### [facility] Laboratory [address] [place] [address] Dr. Cortez Younger [facility] Normal [facility] Comment on above: Result Comment: Nega tive for Flu B protein antigen. Infection due to Flu B cannot be ruled out. Flu B antigen in the sample may be below the detection limit of the test. Performed By: #### E RUR #### [facility] [address] [place] [address] Dr. Cortez Younger INFLUENZA A AG Negative Normal NEGATIVE SEE COMMENT [facility] Comment on above: Performed By: #### E RUR #### [facility] [address] [place] [address] Dr. Cortez Younger INFLUENZA B AG Negative Normal NEGATIVE SEE COMMENT [facility] Comment on above: Performed By: #### E RUR #### [facility] [address] [place] [address] Dr. Cortez Younger INTERNAL CONTROLS Within Normal Limits Normal Wi thin Normal Limits [facility] Comment on above: Performed By: #### E RUR #### [facility] [address] [place] [address] Dr. Cortez Younger XR CHEST 1 Von [...] Date: 2022-05-28 13:36 Normal [facility] PROF 14(COMP METB)on 022 Albumin [Mass/Vol] 3.9 g/dL Normal 3.4-5.0 [facility] Comment on above: Performed By: #### C MP #### [facility] [address] [place] [address] Dr. Cortez Younger Albumin/Globulin [Mass ratio] 1.4 {ratio} Normal [facility] Comment on above: Performed By: #### C MP #### [facility] [address] [place] [address] Dr. Cortez Younger ALP [Catalytic activity/Vol] 81 U/L Normal 46-116 [facility] Comment on above: Performed By: #### C MP #### [facility] [address] [place] [address] Dr. Cortez Younger ALT [Catalytic activity/Vol] 19 U/L Normal 16-63 [facility] Comment on above: Performed By: #### C MP #### [facility] [address] [place] [address] [address] Cortez Younger Anion gap [Moles/Vol] 12.3 mmol/L Normal [facility] Comment on above: Performed By: #### C MP #### [facility] [address] [place] [address] Dr. Cortez Younger AST [Catalytic activity/Vol] 15 U/L Normal 15-37 [facility] Comment on above: Performed By: #### C MP #### [facility] [address] [place] [address] Dr. Cortez Younger Bilirubin [Mass/Vol] 0.3 mg/dL Normal 0.2-1.0 [facility] Comment on above: Performed By: #### C MP #### [facility] [address] [place] [address] Dr. Cortez Younger Calcium [Mass/Vol] 8.6 mg/dL Normal 8.5-10.1 [facility] Comment on above: Performed By: #### C MP #### [facility] [address] [place] [address] Dr. Cortez Younger Chloride [Moles/Vol] 101 mmol/L Normal 98-107 [facility] Comment on above: Performed By: #### C MP #### [facility] [address] [place] [address] [address] Cortez Younger CO2 [Moles/Vol] 30.6 mmol/L Normal 21.0-32.0 [facility] Comment on above: Performed By: #### C MP #### [facility] [address] [place] [address] [address] Cortez Younger Creatinine [Mass/Vol] 0.75 mg/dL Normal 0.70-1.30 [facility] Comment on above: Performed By: #### C MP #### [facility] [address] [place] [address] Dr. Cortez Younger EGFR-AF KITTITIAN >60 Normal >=60 [facility] Comment on above: Performed By: #### C MP #### [facility] [address] [place] [address] [address] Cortez Younger EGFR-NON AF KITTITIAN >60 Normal >=60 [facility] Comment on above: Performed By: #### C MP #### [facility] [address] [place] [address] [address] Cortez Younger Globulin (S) [Mass/Vol] 2.8 g/dL Normal [facility] Comment on above: Performed By: #### C MP #### [facility] [address] [place] [address] [address] Cortez Younger Glucose [Mass/Vol] 98 mg/dL Normal 74-106 [facility] Comment on above: Performed By: #### C MP #### [facility] [address] [place] [address] [address] Cortez Younger Potassium [Moles/Vol] 3.9 mmol/L Normal 3.5-5.1 [facility] Comment on above: Performed By: #### C MP #### [facility] [address] [place] [address] [address] Cortez Younger Protein [Mass/Vol] 6.7 g/dL Normal 6.4-8.2 [facility] Comment on above: Performed By: #### C MP #### [facility] [address] [place] [address] Dr. Cortez Younger Sodium [Moles/Vol] 140 mmol/L Normal 136-145 [facility] Comment on above: Performed By: #### C MP #### [facility] [address] [place] [address] Dr. Cortez Younger Urea nitrogen [Mass/Vol] 5.0 mg/dL Critically low 7.0-18.0 [facility] Comment on above: Performed By: #### C MP #### [facility] [address] [place] [address] Dr. Cortez Younger Urea nitrogen/Creatinin e [Mass ratio] 6.7 mg/mg Normal [facility] Comment on above: Performed By: #### C MP #### [facility] [address] [place] [address] Dr. Cortez Younger CBC AUTO DIFFon 01-18-2022 BASO # 0.0 103/ul Normal 0.0-0.1 [facility] Comment on above: Performed By: #### C BC #### [facility] [address] [place] [address] Dr. Cortez Younger Basophils/100 WBC (Bld) 0.1 % Critically low 0.2-2.0 [facility] Comment on above: Performed By: #### C BC #### [facility] [address] [place] [address] Dr. Cortez Younger EO # 0.0 103/ul Normal 0.0-0.7 [facility] Comment on above: Performed By: #### C BC #### [facility] [address] [place] [address] Dr. Cortez Younger Eosinophils/100 WBC (Bld) 0.0 % Critically low 0.9-7.0 [facility] Comment on above: Performed By: #### C BC #### [facility] [address] [place] [address] Dr. Cortez Younger Erythrocyte distribution width (RBC) [Ratio] 12.8 % Normal 11.0-15.0 [facility] Comment on above: Performed By: #### C BC #### [facility] [address] [place] [address] Dr. Cortez Younger Hematocrit (Bld) [Volume fraction] 42.7 % Normal 42.0-54.0 [facility] Comment on above: Performed By: #### C BC #### [facility] [address] [place] [address] Dr. Cortez Younger Hemoglobin (Bld) [Mass/Vol] 15.3 g/dL Normal 14.0-18.0 [facility] Comment on above: Performed By: #### C BC #### [facility] [address] [place] [address] Dr. Cortez Younger IG # 0.10 10e3/ul Critically high 0.00-0.03 [facility] Comment on above: Performed By: #### C BC #### [facility] [address] [place] [address] Dr. Cortez Younger IG % 0.7 % Critically high 0.0-0.5 [facility] Comment on above: Performed By: #### C BC #### [facility] [address] [place] [address] Dr. Cortez Younger LYMPH # 1.9 103/ul Normal 1.2-3.8 [facility] Comment on above: Performed By: #### C BC #### [facility] [address] [place] [address] Dr. Cortez Younger Lymphocytes/100 WBC (Bld) 13.5 % Critically low 20.5-60.0 [facility] Comment on above: Performed By: #### C BC #### [facility] [address] [place] [address] Dr. Cortez Younger MANUAL DIFF REQ NO Normal [facility] Comment on above: Performed By: #### C BC #### [facility] [address] [place] [address] Dr. Cortez Younger MCH (RBC) [Entitic mass] 31.4 pg Normal 25.9-34.0 [facility] Comment on above: Performed By: #### C BC #### [facility] [address] [place] [address] [address] Cortez Younger MCHC (RBC) [Mass/Vol] 35.8 g/dL Critically high 29.9-35.2 [facility] Comment on above: Performed By: #### C BC #### [facility] [address] [place] [address] [address] Cortez Younger MCV (RBC) [Entitic vol] 87.5 fL Normal 80.0-94.0 [facility] Comment on above: Performed By: #### C BC #### [facility] [address] [place] [address] [address] Cortez Younger MONO # 0.8 103/ul Normal 0.3-0.8 [facility] Comment on above: Performed By: #### C BC #### [facility] [address] [place] [address] [address] Cortez Younger Monocytes/100 WBC (Bld) 5.6 % Normal 1.7-12.0 [facility] Comment on above: Performed By: #### C BC #### [facility] [address] [place] [address] [address] Cortez Younger NEUT # 11.4 103/ul Critically high 1.4-6.5 [facility] Comment on above: Performed By: #### C BC #### [facility] [address] [place] [address] [address] Cortez Younger Neutrophils/100 WBC (Bld) 80.1 % Critically high 43.0-75.0 [facility] Comment on above: Performed By: #### C BC #### [facility] [address] [place] [address] [address] Cortez Younger Platelet mean volume (Bld) [Entitic vol] 8.4 fL Critically low 9.5-13.5 [facility] Comment on above: Performed By: #### C BC #### [facility] [address] [place] [address] [address] Cortez Younger PLT 352 103/ul Normal 150-450 [facility] Comment on above: Performed By: #### C BC #### [facility] [address] [place] [address] [address] Cortez Younger RBC 4.88 106/ul Normal 4.70-6.10 [facility] Comment on above: Performed By: #### C BC #### [facility] [address] [place] [address] [address] Cortez Younger WBC 14.2 103/ul Critically high 4.0-11.0 [facility] Comment on above: Performed By: #### C BC #### [facility] [address] [place] [address] [address] Cortez Younger PROF 14(COMP METB)on 022 Albumin [Mass/Vol] 4.1 g/dL Normal 3.4-5.0 [facility] Comment on above: Performed By: #### C MP #### [facility] [address] [place] [address] Dr. Cortez Younger Albumin/Globulin [Mass ratio] 1.5 {ratio} Normal [facility] Comment on above: Performed By: #### C MP #### [facility] [address] [place] [address] Dr. Cortez Younger ALP [Catalytic activity/Vol] 77 U/L Normal 46-116 [facility] Comment on above: Performed By: #### C MP #### [facility] [address] [place] [address] Dr. Cortez Younger ALT [Catalytic activity/Vol] 19 U/L Normal 16-63 [facility] Comment on above: Performed By: #### C MP #### [facility] [address] [place] [address] Dr. Cortez Younger Anion gap [Moles/Vol] 10.6 mmol/L Normal [facility] Comment on above: Performed By: #### C MP #### [facility] [address] [place] [address] Dr. Cortez Younger AST [Catalytic activity/Vol] 8 U/L Critically low 15-37 [facility] Comment on above: Performed By: #### C MP #### [facility] [address] [place] [address] [address] Cortez Younger Bilirubin [Mass/Vol] 0.3 mg/dL Normal 0.2-1.0 [facility] Comment on above: Performed By: #### C MP #### [facility] [address] [place] [address] [address] Cortez Younger Calcium [Mass/Vol] 8.9 mg/dL Normal 8.5-10.1 [facility] Comment on above: Performed By: #### C MP #### [facility] [address] [place] [address] [address] Cortez Younger Chloride [Moles/Vol] 91 mmol/L Critically low 98-107 [facility] Comment on above: Performed By: #### C MP #### [facility] [address] [place] [address] Dr. Cortez Younger CO2 [Moles/Vol] 30.1 mmol/L Normal 21.0-32.0 [facility] Comment on above: Performed By: #### C MP #### [facility] [address] [place] [address] Dr. Cortez Younger Creatinine [Mass/Vol] 0.88 mg/dL Normal 0.70-1.30 [facility] Comment on above: Performed By: #### C MP #### [facility] [address] [place] [address] Dr. Cortez Younger EGFR-AF KITTITIAN >60 Normal >=60 [facility] Comment on above: Performed By: #### C MP #### [facility] [address] [place] [address] Dr. Cortez Younger EGFR-NON AF KITTITIAN >60 Normal >=60 [facility] Comment on above: Performed By: #### C MP #### [facility] [address] [place] [address] Dr. Cortez Younger Globulin (S) [Mass/Vol] 2.8 g/dL Normal [facility] Comment on above: Performed By: #### C MP #### [facility] [address] [place] [address] Dr. Cortez Younger Glucose [Mass/Vol] 112 mg/dL Critically high 74-106 [facility] Comment on above: Performed By: #### C MP #### [facility] [address] [place] [address] [address] Cortez Younger Potassium [Moles/Vol] 3.7 mmol/L Normal 3.5-5.1 [facility] Comment on above: Performed By: #### C MP #### [facility] [address] [place] [address] [address] Cortez Younger Protein [Mass/Vol] 6.9 g/dL Normal 6.4-8.2 [facility] Comment on above: Performed By: #### C MP #### [facility] [address] [place] [address] [address] Cortez Younger Sodium [Moles/Vol] 128 mmol/L Critically low 136-145 [facility] [place] Comment on above: Performed By: #### C MP #### [facility] [address] [place] [address] [address] Cortez Younger Urea nitrogen [Mass/Vol] 9.0 mg/dL Normal 7.0-18.0 [facility] Comment on above: Performed By: #### C MP #### [facility] [address] [place] [address] Dr. Cortez Younger Urea nitrogen/Creatinin e [Mass ratio] 10.2 mg/mg Normal [facility] Comment on above: Performed By: #### C MP #### [facility] [address] [place] [address] [address] Cortez Younger SED RATE [facility] 2021 SED RATE <1 Normal <=20 [facility] Comment on above: Performed By: #### S EDR ####[facility] [address] [place] [address]Dr. Cortez Younger UA RANDOMon 01-18-2022 Bilirubin Ql (U) Negative Normal NEGATIVE [facility] Comment on above: Performed By: #### E RUR #### [facility] [address] [place] [address] [address] Cortez Younger Clarity (U) CLEAR Normal CLEAR [facility] Comment on above: Performed By: #### E RUR #### [facility] [address] [place] [address] Dr. Cortez Younger Color (U) LT. YELLOW Normal YELLOW [facility] Comment on above: Performed By: #### E RUR #### [facility] [address] [place] [address] Dr. Cortez Younger Glucose Ql (U) Negative Normal NEGATIVE [facility] Comment on above: Performed By: #### E RUR #### [facility] [address] [place] [address] Dr. Cortez Younger Hemoglobin Ql (U) TRACE-LYSED Abnormal NEGATIVE [facility] Comment on above: Performed By: #### E RUR #### [facility] [address] [place] [address] Dr. Cortez Younger Ketones Ql (U) Negative Normal NEGATIVE [facility] Comment on above: Performed By: #### E RUR #### [facility] [address] [place] [address] Dr. Cortez Younger LEUKOCYTES TRACE Abnormal NEGATIVE [facility] Comment on above: Performed By: #### E RUR #### [facility] [address] [place] [address] Dr. Cortez Younger Nitrite Ql (U) Negative Normal NEGATIVE [facility] Comment on above: Performed By: #### E RUR #### [facility] [address] [place] [address] Dr. Cortez Younger pH (U) 6.5 [pH] Normal 5-9 [facility] Comment on above: Performed By: #### E RUR #### [facility] [address] [place] [address] Dr. Cortez Younger SPEC GRAVITY <=1.005 Abnormal 1.005-<=1.025 [facility] Comment on above: Performed By: #### E RUR #### [facility] [address] [place] [address] Dr. Cortez Younger UA PROTEIN Negative Normal NEGATIVE/ TRACE [facility] Comment on above: Performed By: #### E RUR #### [facility] [address] [place], [place] [address] Dr. Cortez Younger Urobilinogen Qn (U) 0.2 {Fidelia'U}/dL Normal 0.2 - 1.0 [facility] Comment on above: Performed By: #### E RUR #### [facility] [address] [address] [address] Cortez Younger MRI CSPINE WO W CONon 2021 MRI CSPINE WO W CON EXAMINATION: MRI CSPINE WO W CON HISTORY: Multiple sclerosis COMPARISON: [...] by: VERN LU Date: 2022-01-17 16:24 Normal [facility] MRI TSPINE WO W CONon 2021 MRI TSPINE WO W CON EXAMINATION: MRI TSPINE WO W CON HISTORY: Multiple sclerosis COMPARISON: [...] by: VERN LU Date: 2022-01-17 16:29 Normal [facility] MRI BRAIN WO W CONon 022 [...] by: VERN LU Date: 2022-01-03 08:03 Normal [facility] Patient Educationon 12-25-19 Patient Education Oncology [...] including vitamins, herbs, eye drops, creams, and nyrp-wyv-yeyqzpg medicines. This also includes: ? Medicines to [...] 08/01/2005 Document Revised: 06/11/2018 Document Reviewed: 04/05/2018 [employer] Patient Education ? 2019 [employer]. Donnie Harris [facility] Urology Office/Clinic Noteon 12-24-2021 Urology [...] Urnls Dip Stick Auto w/o Microscopy POC 58321 3. Elevated PSA (R97.20: Elevated prostate specific antigen [PSA]) Most recent PSA done 08/13/21 5.24 Ordered: Urnls Dip Stick Auto w/o Microscopy POC 32435 Other obstructive and reflux uropathy (N13.8: Other obstructive and reflux uropathy) Follow-up With When Contact Information Star Manley MD, Gustavo Orlando, URO In 6 months [facility] [address] [place] [address]- Additional Instructions: w/ PVR Patient Education Prostate-Specific [...] tab(s), Or (more content not included)... Normal [facility] Comment on above: Result Comment: Elec tronically Signed By: Star Manley MD, Gustavo Orlando\.br\Date and Time Signed: 12/24/21 10:52 EDT\.br\Electronically Co-Signed By: Lynda Ortega\.br\Date and Time Co-Signed: 12/24/21 10:47 EDT Lab Reportson 12-16-2021 Lab Reports [id number]: 127 Normal [facility] Lab Reports [id number]: 127 Normal [facility] CULTURE URINEon 12-12-2021 CULTURE URINE Culture Observations : No growth Normal [facility] Comment on above: Performed By: #### U RCX ####[facility] [address] [place], [place] [address]VrFish Younger UA RANDOMon 12-12-2021 Bilirubin Ql (U) Negative Normal NEGATIVE [facility] Comment on above: Performed By: #### U A #### [facility] Laboratory [address] [place] [address] Dr. Cortez Younger Clarity (U) CLEAR Normal CLEAR [facility] Comment on above: Performed By: #### U A #### [facility] [address] [place] [address] Dr. Cortez Younger Color (U) LT. YELLOW Normal YELLOW [facility] Comment on above: Performed By: #### U A #### [facility] [address] [place] [address] Dr. Cortez Younger Glucose Ql (U) Negative Normal NEGATIVE [facility] Comment on above: Performed By: #### U A #### [facility] [address] [place] [address] Dr. Cortez Younger Hemoglobin Ql (U) LARGE Abnormal NEGATIVE [facility] Comment on above: Performed By: #### U A #### [facility] [address] [place] [address] Dr. Cortez Younger Ketones Ql (U) Negative Normal NEGATIVE [facility] Comment on above: Performed By: #### U A #### [facility] [address] [place] [address] Dr. Cortez Younger LEUKOCYTES Negative Normal NEGATIVE [facility] Comment on above: Performed By: #### U A #### [facility] [address] [place] [address] Dr. Cortez Younger Nitrite Ql (U) Negative Normal NEGATIVE [facility] Comment on above: Performed By: #### U A #### [facility] [address] [place] [address] Dr. Cortez Younger pH (U) 7.0 [pH] Normal 5-9 [facility] Comment on above: Performed By: #### U A #### [facility] [address] [place] [address] Dr. Cortez Younger SPEC GRAVITY 1.010 Normal 1.005-<=1.025 [facility] Comment on above: Performed By: #### U A #### [facility] [address] [place], [place] [address] Dr. Cortez Younger UA PROTEIN Negative Normal NEGATIVE/ TRACE [facility] Comment on above: Performed By: #### U A #### [facility] [address] [place], [place] [address] Dr. Cortez Younger Urobilinogen Qn (U) 0.2 {Fidelia'U}/dL Normal 0.2 - 1.0 [facility] Comment on above: Performed By: #### U A #### [facility] [address] [place], [place] [address] Dr. Cortez Younger Coding Summary.on 12-06-2021 Coding Summary. CD:[id number] Gh0b Ww+PGhlYWQ+NF4BROGqU64vz AWwwZ6QK2wMNF3RNACUUXMLE V4ZMK4afSW4BVqaY2OqvkCc DpengIZzZX57CGz2BXK1sAjq YQiitZ3oaROrD3h0EaMuJX31 yH28GVauJPSjVzX3YyEfblfd bWFy K2waWaBouDAlTuh+PHRhYmxl IHdpZHRoPScxMDAlJyBzdHls KH5pMh0iPGRcGOLiuSpoxDDb OiBj s4osGZQjRDwmIJ5ovTugB4Xr sZH4SZGqp7c2Ok53kDY+PHRk SVZ1wCcdPOawn893RnFsq5kn IDM3 bGYnFHuyDUX0L88ue7Y3PDEm NPVzEZR4gXY0uO9ldIefnsil O0HfuTYdPuC8KXX7lVYbqW1n bGln inhvbV6eNgc+T49THH5IAXXT MD9KPro0Q3JyDovcgGB+PC90 UIJoOO29qZYxsBMfu8vbeFp9 JzEw THEcXUU8kIkvUOdlk9BtCHQr E01yfCFpd8M5YJEjnUyhaMOc EgVicVR5xH0hQPktbjuhv7dk dzsn Egdor1kqut61aT60K65mSLbp SSWpJAX7AMBvPOGvfAbkhn8b hD9pJo5+TTkmc5rml6qjzKc3 IjIw RIYntnLysAkuSSJ9d2TnVf71 A8TptEwph7QtAwr6re64eDKa d9H5uHC8CCwpZHVgaC6gYKcp ZnQ6 VKJzAuKnaS49mEHkBMccJa0v aUhzdBeeVW5nKXCpguczFAJq xF3rPQAocXYvnLcmXT2aFWCn bjtm b516ByAgIUO1QKHpyKAqE8Dw rR9bMbDaONHjLSUaN2WjkMYr QLcgS775BOdoIiK2HXTbjeEc Y2Fs TSVtgMxpIfJ0c1K1Ms2Je1Bj txvnDKH3OIxaQAY5ZrP1KuFa TnW1B3YgQbs4IYLmfPvgVD4o J3Bh WENajwzewayfmVD3WXYwEVDd eI05uYPtVUmeSp4ec0G6x245 BKBqDCPueN70Aw9cvXwoIEDt dCBU aC1ahjvuj6qsivkwZtWiOKLc AHv9RLs5SDLvdQlsIyLqLEQ9 IuV1VLJ5tRBgwW8zuWyaesng dG9w Oyc+V51waN6xAHR8VIO3nrfe NMLupwVfOF52EJ13G3NxDkpd dGFibGU+BOMpheNzkEvwOJ8l YmFj t2wyf5XaCCyrH4PmVVLaBPpy Fuc2HDTwSUF6qIZ0xF3eHDEe LAqfs1Z3bDA5L7NfmcPtbs8k b2xs WMKeDAvsO55gsWHfs5H4XWTc yXS3AHUqjRonGcJpgC70Gmt+ SBNthBvpq3OgZbbok0erc5bu dGg9 FkWrHTNsqdTobHamWTG5a1Kv My16X69iRXjgIURkJKAvPUXw ZBLboSzrxk2orJ1uDb4+PGNv bCB3 vTP6qA7sHTSpFwR7WVqkZ551 FlYjqDOlCwngx8csu8swkGo2 OeVuCSRyhgGaaUehPHG7r2Zg Lz48 S65fBKusRASvBEUwIABeFZOd eEipjs1ikT0cLa8+EP4hw4br mq39bF63hSO+EJMmETL8zCqp PSdw UFZkaO0cMCuhIeR5LOOlFxEu kJ07kKHjRWnbWm5wdRkivVrf CN9yWJOdrmkwb628SlVfi8qo IDEw lXDwSZtpEFE3L62qi2M0QMGc QDPlZSN2sSW4kQ8kaEzzqzvh bGVmdDsgdmVydGljYWwtYWxp Z246 IHRvcDsnPlBhdGllbnQgTmFt YEh5W9OsOsa0QSTunFwdOR9m sNLvPWouHv4ywFdhpPpwLC9j NTBp pzauw341UrKjo0qvVYOgyTVz BEiiANG6D59hi3Z0ZVGcQYNq WYM7iMH2yD4vtXigxrhkcXXl dDsg pqRthGnrVEhiQChkH358WZBi yWrzIpNmddKyYQNacSP3XN37 NE65aVOfy5B4hXS8J9VuYKRf bmct bftugRA9OCZcKKQoqD40Dx5f uWbeSb2yVNEoKBV0TGLccMNk R0JxxV7uBbBsVKThZLYmP4Nq eHQt ASjqG554JWxnUsJ7YFOqduZe H8FwCZLfsHriWuF7z2S9Pr4O H4M6QT35HR97tPOup5C4cZU7 J3Bh KJPhbieaplwymYE8UWMbDINb hQ83Pv6tmGzcUj2fFTVgHQM7 PSXpaAEgV3LkmH1nBdQnPVEm MDAw A5OguXDuCCjyA889DCnjFmG4 TUQmmdFkG7LoCVVdiOyvEqC3 b3F1Yn6INJk0JG37JV34hGBf c3R5 jGT9D0ObLHZkoodegmlbkMT4 RXNxHFCfuB27Rt1lcBrwNo5p QMHtJPS4DVHkqSZqT2OzoW6b OiAj HKIdCUWiJ3BrjFMuFRxnY668 FZgcDaD0UHWdkkKmC4VdQYJa dAduNfJ3p7X5Kr2ZWTYbAA18 IFR5 oHV0AR29MW26S2ArAhtuyUYw bGU+PHRhYmxlIHdpZHRoPScx BMWhUmJvjTbmST3fWm5kNSPn LWNv zFvryBIaPeOrb2zuFFMxEYxr XY8efPgoR6NhbGO5TBHgf5q9 Mg03A99rV0RgeWZ+PGNvbCB3 aWR0 uF7fFaUjVhH6AHgwY758LeEo pUTbEiptv3snq1kiuUt1JyJ6 KKJnfmWcpRpnECG4x8HaXm40 Y29s IHdpZHRoPSIxNSUiIHZhbGln kw0dhV8lSy4+DODpjLM2nGB9 cW1iBxElNgW1PPolP154IoRm cCIv Dekrt9kxe0guiQi2SzVgYMCp ijUisUewJDR1w9EbIw78O4Ox uHhlt9OyIkn2fo03pPTkg1Y9 bGU9 U8OcSAZvdlhnqDNboYleGV5j ZCAuszkfPDMuvN9qTJHhO8j4 MnFwSiF8YEkzS6IofoJ8XHLq cHQg LPnsBWF3H89xu9R5MNHjLICv XYI7dCF6xG9uvNpngycvoFJn eWdqtoEwmPkfWUhcTZnqE421 IHRv sCmeTOIepU8eGHKmcFWpjMif MT4mYBOfzjcvEtWCAnKAL9tY DYqmC0VZKA0gXNsrbYH+PHRk IHN0 sBgkQYdtKPGqbT0xEVDrE0k2 IiSgCiP1RLsnQ5UbGPPbaugf Pw29bD7wRbDeElI5NDqwE9Qd bnQ6 GMPtgNNuJGrtLJI5O55rl0V5 QIMuCNXlOXI2wRR1aQ1jkIxa bjogbGVmdDsgdmVydGljYWwt YWxp Y637ACKwhJbkYzD6IxRtEmZ8 Sye6M5SlDqh5ACIduDmvZG7n xYErNZbcNe5lsZcpnZwlMX0u NTBp fjdiRDOpxG3aYMUqcJYbcThl NL3yGRYtbrzwf306McUnNRZ9 NVDhjIMaL8DmlV5kHyNmJSEs MDAw Y1IdkWPfQMpnW398RUkfMzY2 LQBufwOvH7CfZLNpuTozDeP1 s8N1Qa68EoYITSGibngdzUO+ PHRk TCM3sZctWUkuJXSapR8oDXBh F6s5TiGwWzX9XPngP9RpYCXq tzlhAh39mN1xDxZyYdB1JNwb O2Zv svV7RRMpvNItOAotNJI1K02d t3B8YLOfLNLoQYZ4eJY0xX6c bGlnbjogbGVmdDsgdmVydGlj YWwt AVptN059BETnzAebNm1pkYJ7 S6LzJel4EMJhwUixVX6uwLOq JNioUb2wzWmokYpjFP5oOWIk bjtw OHTewH2uVIVuhQMonNjmCN2v UFPujlban349TqYmXFU4RCUf fVQaZ1OvuP5uRcGaQAHrTHYh O3Rl yYLmWQpwU798ZLvdPsE8ZURx xfWpS9ZmIZIxrGdpQnQ5o8W6 Nl4RuOWbDCLlYW81LM15AW13 L3Ry PjwvdGFibGU+PHRhYmxlIHdp XPVeOMhuXIInLlRntKjjYR6m Kx2bUORyMNGnrQayePSlLpBh b2xs PUDfFCgsJA6bjKgpV5RpePC3 TQRru6u1Gh50P22bJ7ZbeIK+ OZJahMK8nLH1wV7dFdKyGzV3 YWxp V253OoNrpMAeEywyh6duu5fx zYc9VyIgYALimzPnqFqqFPT9 k6JqBy19L87aQBkbJJEtAAVr MCUi BFDbmYjfkd9yuP8hCg9+PGNv nRD1tOT2aV6sAhEiCaN2FMyx X480TeBloDGvAheaO40cC0Ga dXA+ CAFlJva6OYQarZqsUH0xoUAh YFtgDx6tIHR8TyGjQhIdNQjx K1ShGHUoxtzreygroFF3JZEx MDUw kV17Qb8tbGetRg9kBJTeYIM6 VPTwqSNtZ5UvwQ2xCxEwCENh BLXfO7BheCAfMQktG767ZDst ZnQ7 EZBudyPaW7PmIRNymXuvCyA2 c5T0Xh7AqEfffLGvBA2tOqOc JLa5X2UiYiw5ZZQehKlvXK4e cGFk ARaxOb3jzGjudJegRA1iYKBk zkrzd810XpIjy0weCUAozNVw YYfrIKY8A88qn2H4XVWjBFQr MDA7 oZJ2cO7huUyryizytJVbhOop ldPlcRtdLKoaAYdtB670TYPc hYwxFePEWmx3N8JdTbu8BBTg dHls HP9mwUQnAEckNt4tsOvcsQrl ET7nTKYcxxdfk057NdPys2rh VYPkrRNxHYhvCRV8L21zc9X2 ICMw ZSGqTJA5kIF0uK2sjUsdqyyf bGVmdDsgdmVydGljYWwtYWxp X272CCVemPkpDn3WVwq6Q2Dm Pjx0 IVEgsVyxHW1jaKVkVRkrTc3x yJcjlIadUL9uNWMtffzwh329 QdOsb1pxVVOopDBqCHegCOS2 Y29s k4P1VCZzAPUaDLB5aDN3jB3b bGlnbjogbGVmdDsgdmVydGlj RDtaTTpoD467HFLvjBxoYlHo eWVy OjwvdGQ+HE45zt85Q9HpRolq Nfj0FPHkJAC4cJF6tT7tHSVa BUmim3X0wIC4F9RxzxNino7j b2xs YXBz (more content not included)... Normal [facility] Consent for Procedure/Surger yon 12-05-2021 Consent for Procedure/Surgery [id number]#1.00CD :127 [facility] Consent for Treatmenton 05-2 Consent for Treatment [id number]#1.00CD: 127 [facility] IntraOperative Documentson 0 12-05-2021 IntraOperative Documents [id number]#1.00CD :127 [facility] Main OR Intraoperative Recor don 12-05-2021 Main OR Intraoperative Record IntraOp Document Type FTURO Summary Primary Physician: Gustavo Graves Jr., MD Finalized Date/Time: 12/05/21 13:57:51 Pt. Name: LESLIEClaryHARISH MCDONALD D.O.B./Sex: 1970 Male Med Rec #: [id number] Physician: Gustavo Graves Jr., MD Financial #: [id number] Pt. Type: O Room/Bed: / Admit/Disch: 12/05/21 11:48:14 - Institution: Case Times FTURO Entry 1 Patient Times In Room 12/05/21 13:23:00 Out Room 12/05/21 13:57:00 Procedure Times Start 12/05/21 13:40:00 Stop 12/05/21 13:53:00 Anesthesia Times Last Modified By: Veena Levin RN 12/05/21 13:57:47 Case Attendance FTURO Entry 1 Entry 2 Entry 3 Case Attendee Star Manley MD, Gustavo Sanders TRACK MANAGER, Veena Brower TRACK MANAGER, Ni Aguirre Role Performed Surgeon - Primary [...] Case Attendee Veena Levin RN Role Performed Morning Caregiver - Primary Time In 12/05/21 13:23:00 Time [...] MD, Gustavo Orlando, Verified (If Medication Participants Marilny TELLO, Veena Walters) Leonarda Aguirre CST, Ollie Archuleta RN, Kimberly [...] Implant Implant Identification Description UROLIFT Lot Number [id number] 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 Normal [facility] Main OR Preoperative Recordo n 12-05-2021 Main OR Preoperative Record Holding Area Document Type FTURO Summary Primary Physician: Gustavo Graves Jr., MD Finalized Date/Time: 12/05/21 13:01:06 Pt. Name: HARISH MCKENNA Johanny Cartagena/Sex: 1970 Male Med Rec #: [id number] Physician: Gustavo Graves Jr., MD Financial #: [id number] Pt. Type: O Room/Bed: / Admit/Disch: 12/05/21 [...] Veena Levin RN Document Signatures Signed By: Solange PEREZMurray Johanny 12/05/21 12:28 Veena Levin RN 12/05/21 13:01 Normal [facility] Operative Reporton Operative Report Patient: HARISH [...] procedure (10 mg diazepam, 5/325 mg of [place]), Local Anesthesia (60cc 2% Xylocaine liquid inserted [...] well and was subsequently discharged home. Normal [facility] Comment on above: Result Comment: Elec tronically Signed By: Star Manley MD, Gustavo Orlando\.br\Date and Time Signed: 12/05/21 13:58 EDT CBC AUTO DIFFon 12-03-2021 BASO # 0.2 103/ul Critically high 0.0-0.1 [facility] Comment on above: Performed By: #### C BC ####[facility] [address] [place] [address]Dr. Cortez Younger Basophils/100 WBC (Bld) 1.3 % Normal 0.2-2.0 [facility] Comment on above: Performed By: #### C BC ####[facility] [address] [place] [id number]. Cortez Younger EO # 0.2 103/ul Normal 0.0-0.7 [facility] Comment on above: Performed By: #### C BC ####[facility] [address] [place] [id number]. Eleanorvalerie Younger Eosinophils/100 WBC (Bld) 1.8 % Normal 0.9-7.0 [facility] Comment on above: Performed By: #### C BC ####[facility] [address] [place] [address]Dr. Cortez Younger Erythrocyte distribution width (RBC) [Ratio] 13.3 % Normal 11.0-15.0 [facility] Comment on above: Performed By: #### C BC ####[facility] [address] [place] [address]Dr. Cortez Younger Hematocrit (Bld) [Volume fraction] 45.0 % Normal 42.0-54.0 [facility] Comment on above: Performed By: #### C BC ####[facility] [address] [place], [place] [address]Dr. Cortez Younger Hemoglobin (Bld) [Mass/Vol] 15.6 g/dL Normal 14.0-18.0 [facility] Comment on above: Performed By: #### C BC ####[facility] [address] [place], [place] [address]Dr. Cortez Younger IG # 0.05 10e3/ul Critically high 0.00-0.03 [facility] Comment on above: Performed By: #### C BC ####[facility] [address] [place], [place] [address]Dr. Cortez Younger IG % 0.4 % Normal 0.0-0.5 [facility] Comment on above: Performed By: #### C BC ####[facility] [address] [place], [place] [address]Dr. Cortez Younger LYMPH # 1.8 103/ul Normal 1.2-3.8 [facility] Comment on above: Performed By: #### C BC ####[facility] [address] [place], [place] [address]Dr. Cortez Younger Lymphocytes/100 WBC (Bld) 15.2 % Critically low 20.5-60.0 [facility] Comment on above: Performed By: #### C BC ####[facility] [address] [place], [place] [address]Dr. Cortez Younger MANUAL DIFF REQ NO Normal [facility] Comment on above: Performed By: #### C BC ####[facility] [address] [place] [phone]. Cortez Younger MCH (RBC) [Entitic mass] 31.1 pg Normal 25.9-34.0 [facility] Comment on above: Performed By: #### C BC ####[facility] [address] [place] [phone]. Cortez Younger MCHC (RBC) [Mass/Vol] 34.7 g/dL Normal 29.9-35.2 [facility] Comment on above: Performed By: #### C BC ####[facility] [address] [place] [phone]. Cortez Aren MCV (RBC) [Entitic vol] 89.8 fL Normal 80.0-94.0 [facility] Comment on above: Performed By: #### C BC ####[facility] [address] [place] [address]Dr. Eleanorvalerie Aren MONO # 0.6 103/ul Normal 0.3-0.8 [facility] Comment on above: Performed By: #### C BC ####[facility] [address] [place] [address]Dr. Eleanorvalerie Younger Monocytes/100 WBC (Bld) 5.3 % Normal 1.7-12.0 [facility] Comment on above: Performed By: #### C BC ####[facility] [address] [place] [phone]. Eleanorvalerie Younger NEUT # 8.9 103/ul Critically high 1.4-6.5 [facility] Comment on above: Performed By: #### C BC ####[facility] [address] [place] [phone]. Cortez Younger Neutrophils/100 WBC (Bld) 76.0 % Critically high 43.0-75.0 [facility] Comment on above: Performed By: #### C BC ####[facility] [address] [place] [phone]. Cortez Younger Platelet mean volume (Bld) [Entitic vol] 8.9 fL Critically low 9.5-13.5 [facility] Comment on above: Performed By: #### C BC ####[facility] [address] [place], [place] [address]Nr. Cortez Younger PLT 414 103/ul Normal 150-450 [facility] Comment on above: Performed By: #### C BC ####[facility] [address] [place], [place] [address]Xv. Cortez Younger RBC 5.01 106/ul Normal 4.70-6.10 [facility] Comment on above: Performed By: #### C BC ####[facility] [address] [place] [phone]. Cortez Younger WBC 11.7 103/ul Critically high 4.0-11.0 [facility] Comment on above: Performed By: #### C BC ####[facility] [address] [place] [phone] Younger PROF 14(COMP METB)on 022 Albumin [Mass/Vol] 3.8 g/dL Normal 3.4-5.0 [facility] Comment on above: Performed By: #### C BC #### [facility] [address] [place] [address] [address] Cortez Younger Albumin/Globulin [Mass ratio] 1.3 {ratio} Normal [facility] Comment on above: Performed By: #### C BC #### [facility] [address] [place] [address] [address] Cortez Younger ALP [Catalytic activity/Vol] 95 U/L Normal 46-116 [facility] Comment on above: Performed By: #### C BC #### [facility] [address] [place] [address] [address] Cortez Younger ALT [Catalytic activity/Vol] 25 U/L Normal 16-63 [facility] Comment on above: Performed By: #### C BC #### [facility] [address] [place] [address] [address] Cortez Younger Anion gap [Moles/Vol] 12.7 mmol/L Normal [facility] Comment on above: Performed By: #### C BC #### [facility] [address] [place] [address] Dr. Cortez Younger AST [Catalytic activity/Vol] 18 U/L Normal 15-37 [facility] Comment on above: Performed By: #### C BC #### [facility] [address] [place] [address] Dr. Cortez Younger Bilirubin [Mass/Vol] 0.3 mg/dL Normal 0.2-1.0 [facility] Comment on above: Performed By: #### C BC #### [facility] [address] [place] [address] Dr. Cortez Younger Calcium [Mass/Vol] mg/dL Normal 8.5-10.1 [facility] Comment on above: Performed By: #### C BC #### [facility] [address] [place] [address] Dr. Cortez Younger Chloride [Moles/Vol] 98 mmol/L Normal 98-107 [facility] Comment on above: Performed By: #### C BC #### [facility] [address] [place] [address] Dr. Cortez Younger CO2 [Moles/Vol] 28.9 mmol/L Normal 21.0-32.0 [facility] Comment on above: Performed By: #### C BC #### [facility] [address] [place] [address] Dr. Cortez Younger Creatinine [Mass/Vol] 0.84 mg/dL Normal 0.70-1.30 [facility] Comment on above: Performed By: #### C BC #### [facility] [address] [place] [address] Dr. Cortez Younger EGFR-AF KITTITIAN >60 Normal >=60 [facility] Comment on above: Performed By: #### C BC #### [facility] [address] [place] [address] Dr. Cortez Younger EGFR-NON AF KITT[place]IAN >60 Normal >=60 [facility] Comment on above: Performed By: #### C BC #### [facility] [address] [place] [address] Dr. Cortez Younger Globulin (S) [Mass/Vol] 3.0 g/dL Normal [facility] Comment on above: Performed By: #### C BC #### [facility] [address] [place] [address] Dr. Cortez Younger Glucose [Mass/Vol] 104 mg/dL Normal 74-106 [facility] Comment on above: Performed By: #### C BC #### [facility] [address] [place] [address] [address] Cortez Younger Potassium [Moles/Vol] 3.6 mmol/L Normal 3.5-5.1 [facility] Comment on above: Performed By: #### C BC #### [facility] [address] [place] [address] Dr. Cortez Younger Protein [Mass/Vol] 6.8 g/dL Normal 6.4-8.2 [facility] Comment on above: Performed By: #### C BC #### [facility] [address] [place] [address] Dr. Cortez Younger Sodium [Moles/Vol] 136 mmol/L Normal 136-145 [facility] Comment on above: Performed By: #### C BC #### [facility] [address] [place] [address] Dr. Cortez Younger Urea nitrogen [Mass/Vol] 6.0 mg/dL Critically low 7.0-18.0 [facility] Comment on above: Performed By: #### C BC #### [facility] [address] [place] [address] Dr. Cortez Younger Urea nitrogen/Creatinin e [Mass ratio] 7.1 mg/mg Normal [facility] Comment on above: Performed By: #### C BC #### [facility] [address] [place] [address] Dr. Cortez Younger Consent for Procedure/Surger yon 10-15-2021 Consent for Procedure/Surgery [id number]: 127 Normal [facility] Patient Educationon 10-15-19 Patient Education Urology [...] these instructions at home: Medicines ? Take bdur-pbu-bsrxgxv and prescription medicines only as told by [...] the blood stops without treatment. ? Take zpjw-ynx-beytled and prescription medicines only as told by your health care provider. ? Drink enough fluid to keep your urine clear or pale yellow. This information is not intended to replace advice given to you by your health care provider. Make sure you discuss any questions you have with your health care provider. Document Released: 06/29/2006 Document Revised: 11/23/2019 Document Reviewed: 08/01/2017 [employer] Patient Education ? [address] [employer] [facility] Urology Office/Clinic Noteon 10-14-2021 Urology Office/Clinic Note [...] [place], [facility] [address] [place] [address]- Additional Instructions: Patient Education Hematuria, Adult Jaret Finley personally scribed for Dr. Graves on 10/14/2021 13:40:09. . Documentation recorded by the Sharonda yao accurately reflects the services(s) I performed and decis (more content not included)... Normal [facility] Comment on above: Result Comment: Elec tronically Signed By: Gustavo Graves Jr., MD\.br\Date and Time Signed: 10/14/21 13:47 EDT\.br\Electronically Co-Signed By: Jaret Benz\.br\Date and Time Co-Signed: 10/14/21 13:40 EDT SURGICAL PATH REPORTon 01-25 SURGICAL PATH REPORT [facility] Department of Pathology [address] [place] [id number] Name: HARISH MCKENNA : 1970 Financial [id number] Number: Gender: Male Location: [facility] Admit 50 years Attending CRUZITO TOMLINSON JR Age: Provider: Ordering CRUZITO TOMLINSON JR Provider: Consulting: Surgical Pathology Report ACCESSION: COLLECTED DATE/TIME: RECEIVED DATE/TIME: PATHOLOGIST: [id number] 01/23/2021 12:05 EDT 01/24/2021 12:05 EDT ALVIN CADET MD Final Diagnosis Report for [facility] [place] ANTRUM, BIOPSY: - MILD CHRONIC GASTRITIS. [...] MP/ts 01/24/2021 Tissue pathology report for: [facility], [address] [place] [id number]; Print Date/ 01/25/2021 12:34 EDT Number: Time: [facility] Department of Pathology [address] [place] [address] Name: HARISH MCKENNA : 1970 Financial [id number] Number: Gender: Male Location: [facility] Admit 50 years Attending CRUZITO TOMLINSON JR Age: Provider: Ordering CRUZITO TOMLINSON JR Provider: Consulting: Surgical Pathology Report ACCESSION: COLLECTED DATE/TIME: RECEIVED DATE/TIME: PATHOLOGIST: [id number] 01/23/2021 12:05 EDT 01/24/2021 12:05 EDT CHICIH DARLING, ALVIN Gross Description PATHOLOGY SERVICES PROVIDED BY [employer] (CLIA #[id number]) in cooperation with [facility] at [address] [place] [address] (CLIA #[id number]) Microscopic Diagnosis NOTE: One or more of the reagents used to perform assays on this specimen MAY have contained components considered to be analyte specific reagents ( ASRs). ASRs have not been cleared or approved by the U.S. Food and Drug Administration. The performance characteristics of these assays have been determined by the Department of Pathology at [facility]. This assay was performed subsequent to the H and E examination. Appropriate positive and negative controls were examined with appropriate reactivity. Codes CPT CODE: 93268 [id number] Print 01/25/2021 12:34 EDT Number: Time: Normal [facility] Comment on above: Performed By: #### [id number] #### [facility] [address] [place] [address] Varnish Supervisor: Alvin Cadet MD Vital Signs Date Time Vital Sign Value Performing Clinician Facility 06-07-2024 15:45-0500 Body height 177.8 cm Reba RIGGINS Work Phone: [facility] 06-07-2024 15:45-0500 Body mass index (BMI) [Ratio] 18.94 kg/m2 Reba Alcazar PA Work Phone: [facility] 06-07-2024 15:45-0500 Body weight 59.88 kg Reba Alcazar PA Work Phone: [facility] 06-07-2024 15:45-0500 Diastolic blood pressure 72 mm[Hg] Reba Alcazar PA Work Phone: [facility] 06-07-2024 15:45-0500 Heart rate 71 /min Reba Alcazar PA Work Phone: [facility] 06-07-2024 15:45-0500 Respiratory rate 16 /min Reba Alcazar PA Work Phone: [facility] 06-07-2024 15:45-0500 SaO2% (BldA) [Mass fraction] 94 % Reba Alcazar PA Work Phone: [facility] 06-07-2024 15:45-0500 Systolic blood pressure 112 mm[Hg] Reba Alcazar PA Work Phone: [facility] 05-10-2024 13:14-0400 Body height 177.8 cm [facility] 05-10-2024 13:14-0400 Body mass index (BMI) [Ratio] 19.3 kg/m2 [facility] 05-10-2024 13:14-0400 Body temperature 97.2 [degF] [facility] 05-10-2024 13:14-0400 Body weight 61 kg [facility] 05-10-2024 13:14-0400 Diastolic blood pressure 72 mm[Hg] [facility] 05-10-2024 13:14-0400 Systolic blood pressure 112 mm[Hg] [facility] 04-11-2024 16:32-0400 Body height 177.8 cm Reba Alcazar PA Work Phone: [facility] 04-11-2024 16:32-0400 Body mass index (BMI) [Ratio] 18.65 kg/m2 Reba Alcaazr PA Work Phone: [facility] 04-11-2024 16:32-0400 Body weight 58.97 kg Reba Alcazar PA Work Phone: [facility] 04-11-2024 16:32-0400 Diastolic blood pressure 78 mm[Hg] Reba Alcazar PA Work Phone: [facility] 04-11-2024 16:32-0400 Heart rate 70 /min Reba Albino PA Work Phone: [facility] 04-11-2024 16:32-0400 Respiratory rate 16 /min Reba Albino PA Work Phone: [facility] 04-11-2024 16:32-0400 SaO2% (BldA) [Mass fraction] 96 % Reba Alcazar PA Work Phone: [facility] 04-11-2024 16:32-0400 Systolic blood pressure 120 mm[Hg] Reba Alcazar PA Work Phone: [facility] 09-17-2023 14:59-0500 Body height 177.8 cm [facility] 09-17-2023 14:59-0500 Body mass index (BMI) [Ratio] 18.8 kg/m2 [facility] 09-17-2023 14:59-0500 Body temperature 98.1 [degF] [facility] 09-17-2023 14:59-0500 Body weight 59.42 kg [facility] 09-17-2023 14:59-0500 Diastolic blood pressure 45 mm[Hg] [facility] 09-17-2023 14:59-0500 Systolic blood pressure 82 mm[Hg] [facility] 03-25-2023 13:30-0400 Body height 177.8 cm Mahnaz Roth Other [employer] [facility] [employer] Other 03-25-2023 13:30-0400 Body mass index (BMI) [Ratio] 18.65 kg/m2 Mahnaz Roth Other [employer] Other 03-25-2023 13:30-0400 Body temperature 98.4 [degF] Mahnaz Roth Other [employer] [facility] [employer] Other 03-25-2023 13:30-0400 Body weight 58.97 kg Mahnaz Roth Other [employer] Other 03-25-2023 13:30-0400 Diastolic blood pressure 87 mm[Hg] Mahnaz Roth Other [employer] [facility] [employer] Other 03-25-2023 13:30-0400 Systolic blood pressure 135 mm[Hg] Mahnaz Roth Other [facility] [employer] Other 12-24-2021 09:50-0400 Blood Pressure Location Gustavo Graves Jr. [facility] 12-24-2021 09:50-0400 Diastolic blood pressure 76 mm[Hg] Gustavo Graves Jr. [facility] 12-24-2021 09:50-0400 Heart rate 68 /min Gustavo Graves Jr. [facility] 12-24-2021 09:50-0400 Systolic blood pressure 132 mm[Hg] Gustavo Graves Jr. [facility] Encounters Encounter Date Encounter Type Care Provider Facility Start: 06-07-2024 End: 06-07-2024 ambulatory REBA ALCAZAR Not Available Start: 06-07-2024 End: 06-07-2024 Office outpatient visit 25 minutes Reba RIGGINS Work Phone: [facility] Comment on above: Multiple sclerosis ( CMS/HCC) (Primary Dx); Other chronic pain; Tremor; Neurogenic bladder Start: 05-30-2024 End: 05-30-2024 Refill Kenna Lockett RN Work Phone: [facility] Comment on above: Simple chronic bronc hitis (CMS/HCC) (Primary Dx); Panlobular emphysema (CMS/HCC) Start: 05-27-2024 End: 05-27-2024 Clinisync Result Encounter Generic External Data Provider [facility] Unsolicited Start: 05-27-2024 End: 05-27-2024 Clinisync Result Encounter Generic External Data Provider [facility] External [facility] Unsolicited Start: 05-16-2024 End: 05-16-2024 Refill Kenna Lockett RN Work Phone: [facility] Comment on above: Insomnia, unspecifie d type (Primary Dx); Relapsing remitting multiple sclerosis (CMS/HCC) Start: 05-10-2024 End: 05-10-2024 [facility] Work Phone: Start: 05-10-2024 End: 05-10-2024 Patient encounter procedure [facility] Work Phone: Start: 04-18-2024 End: 04-19-2024 Refill Elaina RIGGINS Work Phone: [facility] Comment on above: Cervical radiculopat hy; Sensory disturbance Start: 04-15-2024 End: 04-18-2024 Refill Kenna Lockett RN Work Phone: [facility] Comment on above: Venous insufficiency ; Relapsing remitting multiple sclerosis (CMS/HCC) Start: 04-14-2024 End: 04-14-2024 [facility] Work Phone: Start: 04-14-2024 End: 04-14-2024 Patient encounter procedure [facility] Work Phone: Start: 04-11-2024 End: 04-11-2024 ambulatory REBA ALCAZAR Not Available Start: 04-11-2024 End: 04-11-2024 Office outpatient visit 25 minutes Reba RIGGINS Work Phone: [facility] Comment on above: Multiple sclerosis ( CMS/HCC) (Primary Dx); Neurogenic bladder; Other chronic pain; Tremor Start: 04-04-2024 End: 04-04-2024 ambulatory EDRADHA J ROMANYER Not Available Start: 03-04-2024 End: 03-04-2024 ambulatory MATY WIN [facility] Start: 01-19-2024 End: 01-19-2024 ambulatory [facility] Work Phone: Start: 01-19-2024 End: 01-19-2024 Patient encounter procedure [facility] Work Phone: Start: 12-23-2023 End: 12-23-2023 ambulatory EDRADHA J ROMANYER Not Available Start: 11-26-2023 End: 11-26-2023 ambulatory EDWARD J HEMEYER Not Available Start: 11-18-2023 End: 11-18-2023 ambulatory [facility] Work Phone: Start: 11-18-2023 End: 11-18-2023 Patient encounter procedure [facility] Work Phone: Start: 09-17-2023 End: 09-17-2023 Patient encounter procedure [facility] Work Phone: Start: 09-09-2023 End: 09-09-2023 ambulatory EDWARD J HEMEYER Not Available Start: 08-31-2023 End: 08-31-2023 ambulatory EDWARD J HEMEYER Not Available Start: 08-26-2023 End: 08-29-2023 Non-patient / Non-visit [facility] Work Phone: Start: 08-21-2023 End: 08-21-2023 ambulatory Mahnaz Roth Other [employer] Other Start: 08-21-2023 Telephone encounter [facility] Start: 07-22-2023 Telephone encounter Mahnaz [facility] Start: 07-22-2023 End: 07-22-2023 ambulatory MATY WIN [employer] Other Start: 06-24-2023 End: 06-24-2023 ambulatory Mahnaz Ira Other [employer] Other Start: 06-24-2023 Telephone encounter Mahnaz [facility] Start: 05-28-2023 End: 05-28-2023 ambulatory Mahnaz Ira Other [employer] Other Start: 05-28-2023 Telephone encounter Mahnaz [facility] Start: 05-19-2023 End: 05-19-2023 ambulatory Mahnaz Ira Other [employer] Other Start: 05-19-2023 Office outpatient visit 15 minutes Mahnaz Ira [facility] Start: 04-21-2023 End: 04-21-2023 ambulatory Mahnaz Ira Other [employer] Other Start: 04-21-2023 Office outpatient visit 15 minutes Mahnaz Ira [facility] Start: 04-07-2023 End: 04-07-2023 ambulatory Mahnaz Ira Other [employer] Other Start: 04-07-2023 Telephone encounter Mahnaz Ira [facility] Start: 04-02-2023 End: 04-02-2023 ambulatory Mahnaz Ira Other [employer] Other Start: 04-02-2023 Telephone encounter Mahnaz Ira [facility] Start: 04-01-2023 End: 04-01-2023 ambulatory Mahnaz Ira Other [employer] Other Start: 04-01-2023 Telephone encounter Mahnaz Roth [facility] Start: 03-25-2023 End: 03-25-2023 ambulatory Mahnaz Roth Other [employer] Other Start: 03-25-2023 Office outpatient ne w 60 minutes Mahnaz Marcelinow [facility] Start: 11-13-2022 End: 11-13-2022 [...] ility:[facility] Start: 09-16-2022 ambulatory LAMAR Sheikh ty:[place] Start: 06-26-2022 End: 06-27-[address] LISA ROMERO . Facility:[facility] Start: 05-28-2022 End: 05-28-2022 ambulatory ESA LARIOS . Facility:[facility] Start: 03-13-2022 End: [address] LISA ROMERO . Facility:[facility] Start: 03-08-2022 ambulatory REBA PURCELL Facility:[facility] 1 Start: 02-26-2022 End: 02-27-[address] VERN CHAMPAGNE Facility:[facility] Start: 01-18-2022 End: 07-19-[address] VERN CHAMPAGNE Facility:[facility] Start: 01-17-2022 End: 01-18-[address] THOMASON LISTED REQUEST Facility:[facility]1 Start: 01-16-2022 End: 01-19-[address] DOCTOR BENNETT Facility:[facility] Start: 01-02-2022 End: 01-03-2022 ambulatory NONE LISTED REQUEST Facility: Start: 12-24-2021 End: 12-25-2021 ambulatory Heri MURRELL Facility:[facility] Start: 12-24-2021 End: 12-24-2021 Patient encounter procedure Gustavo Graves Jr. [facility] [place] Start: 12-17-2021 End: 12-19-[address] DOCTOR BENNETT Facility:[facility]1 Start: 12-12-2021 End: 12-13-2021 ambulatory LAMAR TURNER Facility: Start: 12-05-2021 End: 12-06-2021 ambulatory Heri R MURRELL Facility:[facility] Start: 12-05-2021 End: 12-05-2021 Patient encounter procedure Gustavo Graves Jr. [facility] Start: 12-05-2021 ambulatory Herifelipe MURRELL Facility :[facility] Start: 12-03-2021 End: 12-04-2021 ambulatory REBA ANTONYOUR Facility: Start: 10-14-2021 End: 10-15-2021 ambulatory Heri Diana NYASIA Facility:[facility] Start: 09-19-2021 ambulatory Herifelipe MURRELL Facility :[facility] Start: 12-11-2017 End: 12-12-2017 Patient encounter procedure Tunde Das Facility:[facility] Procedures Date Procedure Procedure Detail Performing Clinician Start: 05-27-2024 ALL SODIUM Generic Ex ternal Data Provider Start: 10-14-2021 Cystoscopy Gustavo flores Jr. Start: 09-13-2019 Cystoscopy Gustavo flores Jr. Cholecystectomy Gustavo Graves Jr. Counseling Mahnaz corcoran Other Plan of Treatment Date Care Activity Detail Author Start: 04-19-2027 Screening for malignant neoplasm of colon [facility] Start: 12-22-2024 Medicare Annual Wellness (AWV) Medicare Annual Wellness (AWV) [facility] Start: 09-28-2024 End: 09-28-2024 Patient encounter procedure 09/28/2024 2:20 PM EDT Office Visit [facility] [place] [facility] [address] [place] [id number] Reba Alcazar PA [address] [place] [id number] [facility] Start: 07-11-2024 End: 07-11-2024 Patient encounter procedure 07/11/2024 3:30 PM EST Office Visit [facility] [address] [place] [address] Bubba Ghotra MD [address] [place] [address] [facility] Start: 06-07-2024 End: 06-07-2024 Patient encounter procedure 06/07/2024 3:40 PM EST Office Visit [facility] [place] [facility] [address] [place] [address] Reba Alcazar PA [address] [place] [address] [facility] Start: 05-13-2024 End: 04-12-2025 Sodium [Moles/volume] in Serum or Plasma Sodium Lab Routine Multiple sclerosis (CMS/HCC) Expected: 05/13/2024 (Approximate), Expires: 04/12/2025 [facility] Work Phone: Comment on above: Expected: 05/13/2024 (Approximate), Expires: 04/12/2025 Start: 1970 Screening for malignant neoplasm of colon [facility] Immunizations Immunization Date Immunization Notes Care Provider Oswaldo liu 10-22-2020 SARS-CoV-2 (COVID-19 ) mRNA BNT-162b2 vax Gustavo Graves Jr. [facility] 10-01-2020 SARS-CoV-2 (COVID-19 ) mRNA BNT-162b2 nelson Graves [facility] Payers Date Payer Category Payer Medicaid [id number] 5 2003 Medicare [id number] 5 1969 Unknown [id number] 2.16.8 40.1.831704.3.579.2.727 1969 Unknown [id number] 2.16.8 40.1.218234.3.579.2.727 1969 Unknown [id number] 2.16.8 40.1.444085.3.579.2.727 1969 Unknown [id number] 2.16.8 40.1.946026.3.579.2.727 1969 Unknown [id number] 2.16.8 40.1.222722.3.579.2.727 1969 Unknown [id number] 2.16.84 0.1.754991.3.579.2.593 1969 Unknown [id number] 2.16.84 0.1.211364.3.579.2.593 1969 Unknown [id number] 2.16.84 0.1.318083.3.579.2.593 1969 Unknown [id number] 2.16.84 0.1.476238.3.579.2.593 1969 Unknown [id number] 2.16.84 0.1.497802.3.579.2.593 1969 Unknown [id number] 2.16.84 0.1.470634.3.579.2.593 1969 Unknown [id number] 2.16.84 0.1.185290.3.579.2.593 1969 Unknown [id number] 2.16.84 0.1.783318.3.579.2.593 1969 Unknown [id number] 2.16.84 0.1.253888.3.579.2.593 1969 Unknown [id number] 2.16.84 0.1.914486.3.579.2.593 1969 Unknown [id number] 2.16.84 0.1.203486.3.579.2.593 1969 Unknown [id number] 2.16.84 0.1.981781.3.579.2.593 1969 Unknown [id number] 2.16.84 0.1.789013.3.579.2.593 1969 Unknown [id number] 2.16.84 0.1.396004.3.579.2.593 1969 Unknown [id number] 2.16.84 0.1.109610.3.579.2.593 1969 Unknown [id number] 2.16.84 0.1.340705.3.579.2.593 1969 Unknown [id number] 2.16.84 0.1.776346.3.579.2.593 1969 Unknown [id number] 2.16.84 0.1.363314.3.579.2.593 1969 Unknown [id number] 2.16.84 0.1.953849.3.579.2.593 1969 Unknown [id number] 2.16.84 0.1.135624.3.579.2.593 1969 Unknown [id number] 2.16.8 40.1.760879.3.579.2.1286 1969 Unknown [id number] 2.16.84 0.1.999183.3.579.2.1286 1969 Unknown [id number] 2.16.84 0.1.869988.3.579.2.9 1969 Unknown [id number] 2.16.84 0.1.464730.3.579.2.9 1969 Unknown [id number] 2.16.84 0.1.083350.3.579.2.9 1969 Unknown [id number] 2.16.84 0.1.079232.3.579.2.1258 1969 Unknown [id number] 2.16.84 0.1.868013.3.579.2.1258 1969 Unknown [id number] 2.16.84 0.1.067215.3.579.2.1258 1969 Unknown [id number] 2.16.84 0.1.886548.3.579.2.1259 1959 Medicaid [id number] 1960 Medicare [id number] 1960 Self-pay Unknown HCAP/HFA/FAP Active [id number] Social History Date Type Detail Facility Start: 10-14-2021 End: 12-23-2023 Tobacco smoking status Ex-smoker (finding) [facility] Start: 12-01-2022 End: 01-23-2023 Sex Assigned At Male [facility] Start: 1970 Sex Assigned At Male F [facility] Start: 08-18-2008 End: 08-18-2023 History of tobacco use Current smoker [facility] Start: 08-18-2008 End: 08-18-2023 History of tobacco use Cigarette Smoker [facility] Start: 01-23-2023 End: 12-23-2023 Cigarettes smoked current (pack per day) - Reported 1.5 [facility] Start: 12-23-2023 Tobacco use and exposure Smokeless tobacco non-user [facility] Start: 04-11-2024 End: 06-07-2024 Alcoholic beverage intake Lifetime non-drinker (finding) [facility] [...] 12-24-2021 Functional Status N/A [facility] Clinical Notes 12-05-2021 to 05-16-2024 Kenna Lockett RN - 05/16/2024 10:40 AM Laurence Lockett RN - 04/15/2024 3:29 PM EDT Note Date & Type Note Facility 05-16-2024 History of Presen t illness Narrative Pt lm, requests rx for Seroquel documented in this encounter [facility] 04-15-2024 History of Presen t illness Narrative SW spoke to pt, needs rx for Spironolactone. documented in this encounter [facility] 08-21-2023 Evaluation note Encounter Date Diagnosis Assessment Notes Aug, Chronic pain (ICD-10 - G89.29) OARRS reviewed, consistent with Rx. MME 60 mg/day [employer] Other 01-10-2024 Evaluation note* Encounter Date Diagnosis Assessment Notes Treatment Notes Treatment Clinical Notes Jul, Chronic pain (ICD-10 - G89.29) OARRS reviewed, consistent with Rx. Also has benzo prescribed by P and pregabalin by neurology [employer] [employer] Other 12-13-2023 Evaluation note* Encounter Date Diagnosis Assessment Notes Treatment Notes Treatment Clinical Notes Jun, Chronic pain (ICD-10 - G89.29) [employer] Other 11-16-2023 Evaluation note* Encounter Date Diagnosis Assessment Notes Treatment Notes Treatment Clinical Notes May, Chronic pain (ICD-10 - G89.29) OARRS reviewed, consistent with Rx [facility] Other 11-07-2023 Evaluation note* Encounter Date Diagnosis [...] at bedtime instead of using PRN only [employer] Other 10-10-2023 Evaluation note* Encounter Date Diagnosis Assessment Notes Treatment Notes Treatment Clinical Notes Apr, Chronic pain (ICD-10 - G89.29) OARRS reviewed, consistent with Rx. Harish reports some relief with oxycodone 10 mg tabs, and is using med 3-4x/daily. Continue same without change. Apr, Constipation (ICD-10 - K59.00) Improved elimination with daily use of senna [employer] Other 09-26-2023 Evaluation note* Encounter Date Diagnosis [...] reported some lose stools after using routinely [facility] [employer] Other 09-20-2023 Evaluation note* Encounter Date Diagnosis Assessment Notes Treatment Notes Treatment Clinical Notes Mar, Chronic pain (ICD-10 - G89.29) OARRS reviewed, consistent with recent Rx. Increasing frequency of oxycodone to q6h PRN to improve pain control. Mar, Constipation (ICD-10 - K59.00) Harish is using Miralax daily but remains constipated, will add stimulant laxative [employer] Other 09-13-2023 Evaluation note* Encounter Date Diagnosis [...] of Constipation hand out provided to patient [employer] Other 04-06-2023 NoteCONSULTATION CONSULTATION DATE: 10/16/2022 TO: [...] 25 mg daily, Lyrica 200 mg t.i.d., [place] 7.5 mg b.i.d. He currently uses medical [...] THC if we are to continue with [place]. However, at this point, I do not [...] our patients to inform us about any yslj-nps-ecwktvv medications or herbal remedies/nutritional supplements/alternative remedies. 2. [...] with their primary care provider.[facility] [id number] Note CONSULTATION CONSULTATION DATE: 06/26/2022 HISTORY OF [...] Lyrica 200 mg t.i.d. per his neurologist, [place] 7.5/325 b.i.d., Cymbalta, baclofen and Ocrevus. Patient's [...] medication changes today. He was increased to [place] 7.5/325 at his last visit, and the patient feels it is somewhat helpful. We will continue to medically manage him only. Patient will be seen in the clinic in three months' time unless otherwise indicated.[facility] [id number] NoteCONSULTATION CONSULTATION DATE: 03/13/2022 HISTORY OF PRESENT ILLNESS: This is 51-year-old gentleman, well known to the Pain Clinic, returning for a three month follow up. This gentleman has history of MS, chronic pain syndrome and diffuse neuropathic pain, which is chronically medically managed with a medication regimen. Current medications include Mobic 15 mg daily, Lyrica 200 mg t.i.d., [place] 5/325 t.i.d., baclofen, Trileptal and amitriptyline. Patient recently suffered a family loss and reportedly has lost about 12 pounds in weight. He does ambulate with a cane and is stable with that. He is requesting today that we change his [place] from t.i.d. to 7.5 b.i.d. as he [...] pain. PLAN: We will check from his [place] 5/325 t.i.d. to 7.5/325 b.i.d. We will maintain his other medications with no dose or frequency change. He will be given a U-Tox in the clinic today. I did discuss vitamin importance as well as supplementing his protein intake with Boost supplements. We will see the patient in three months' time, unless otherwise indicated. Patient is in agreement to this.[facility] [id number] Hospital Discharge instructions Patient Education 12/24/2021 10:47:00 [...] including vitamins, herbs, eye drops, creams, and veti-yuj-kwdvkrt medicines. This also includes: ?Medicines to assist [...] 08/01/2005 Document Revised: 06/11/2018 Document Reviewed: 04/05/2018 [employer] Patient Education 2020 [employer] Follow Up Care 12/05/2021 14:04:21 With:Star Manley MD, Gustavo Orlando, URO Address: [facility] [address], [place] [address]- When:Within 6 Month(s) Comments:w/ PVR [facility] 05-26-2022 Note [id number]:127[facility] 12-05-2021 NoteUrolift ? Some men may [...] personnel to use a Coude (pronouncedcoo-day) tipped catheter.[facility]05-26-2022 Hospital Discharge instructions Patient Education 12/05/2021 [...] [facility] [address], [place] [address]- Business (1) When:2 to 4 weeks Comments:PVR with next visit [facility] Future Appointments Appointment Date:12/24/2021 09:30:00 AM Scheduled Provider:Gustavo Graves Jr., MD Location:[facility] Appointment Type:URO [facility] Future Appointments Appointment Date:07/01/2022 10:45:00 AM Scheduled Provider:Gustavo Graves Jr., MD Location:[facility] Appointment Type:URO Office Visit [facility] evaluation noteNo [facility] Other Evaluation note* Diagnosis Onset Date Resolution Status Chronic pain acute Constipation acute correction (current) use of opiate analgesic acute Multiple sclerosis [facility] Work Phone: Evaluation note* Diagnosis Onset Date Resolution Status Chronic pain acute Constipation acute Multiple sclerosis [facility] Work Phone: Evaluation note* Diagnosis Multiple [...] syndrome acute Constipation acute Multiple sclerosis acute [facility] Work Phone: Evaluation note* Diagnosis Insomnia, unspecified type- Primary Relapsing remitting multiple sclerosis (CMS/HCC) Multiple sclerosis [facility] Diagnosis Simple chronic bronchitis (CMS/HCC)- Primary Simple chronic bronchitis Panlobular emphysema (CMS/HCC) Other emphysema [facility] Diagnosis Multiple sclerosis (CMS/HCC)- Primary Multiple sclerosis Other chronic pain Tremor Abnormal involuntary movements Neurogenic bladder Neurogenic bladder, NOS [facility] N[facility]ative - Reported* Type Description Date Medical History multiple sclerosis Medical History bipolar Medical History GERD Surgical History cholecystectomy [employer] [facility] Other Hospital course Narrative No data available for this section [facility] No data available for this section [facility] Summary Purpose Family History No Family [...] f/u Reason for Visit Chronic pain Constipation correction (current) use of opiate analgesic Multiple sclerosis [...] section and content) DATE CREATED AUTHOR 09/18/2018 [facility] DATE CREATED AUTHOR AUTHOR'S ORGANIZ ATION 01/25/2021 [facility] DATE CREATED AUTHOR AUTHOR'S ORGANIZ ATION 09/16/2022 [facility] [facility] DATE CREATED AUTHOR AUTHOR'S ORGANIZ ATION 11/18/[address] [facility] DATE CREATED AUTHOR AUTHOR'S ORGANIZ ATION 03/06/2024 [facility] DATE CREATED AUTHOR AUTHOR'S ORGANIZ ATION 06/10/2024 [facility] dical Specialists EPIC Care Team (unrecognized sect [...] September 17, 2023 End: September 17, 2023 Photographer Lithographic Relationship Specialty Start Date End Date Bubba Ghotra MD [address] [facility] [place] [address] (Fax) PCP - General Family Medicine 11/27/22 Bubba Ghotra MD [address] [facility] [place] [phone] (Fax) PCP - ACO Reach 12/04/22 Elaina Burgess PA [address] [place] [phone] Physician Entry Specialist Neurology 12/02/23 Kenna Lockett, GRAHAM Registered Nurse Family Medicine 12/02/23 Maty Win MD [address] [place] [phone] Referring Physician [facility] 12/02/23 Team Status: Inactive Member Role Status Dates Bubba Ghotra MD Primary Care Provider Active Start: April 14, 2024 End: April 14, 2024 Mahnaz Roth APRN Attending Provider Active Start: April 14, 2024 End: April 14, 2024 Photographer Lithographic Relationship Specialty Start Date End Date Bubba Ghotra MD [address] [facility] [place] [address] (Fax) PCP - General Family Medicine 11/27/22 Bubba Ghotra MD [address] [facility] [place] [address] (Fax) PCP - ACO Reach 12/04/22 Elaina Burgess PA [address] [place] [phone] Physician Entry Specialist Neurology 12/02/23 Kenna Lockett, RN Registered Nurse Family Medicine 12/02/23 Maty Win MD [address] [place] [phone] Referring Physician Behavioral Health 12/02/23 Photographer Lithographic Relationship Specialty Start Date End Date Bubba Ghotra MD [address] [place] [address] (Fax) PCP - General Family Medicine 11/27/22 Bubba Ghotra MD [address] [place] [address] (Fax) PCP - ACO Reach 12/04/22 Elaina Burgess PA [address] [place] [address] Physician Entry Specialist Neurology 12/02/23 Kenna Lockett, RN Registered Nurse Family Medicine 12/02/23 Maty Win MD [address] [place] [address] Referring Physician Behavioral Health 12/02/23 Team Status: Inactive Member Role Status Dates Bubba Ghotra MD Primary Care Provider Active Start: May 10, 2024 End: May 10, 2024 Mahnaz Roth APRN Attending Provider Active Start: May 10, 2024 End: May 10, 2024 Photographer Lithographic Relationship Specialty Start Date End Date Bubba Ghotra MD [address] [place] [phone] (Fax) PCP - General Family Medicine 11/27/22 Bubba Ghotra MD [address] [facility] [address] [place] [address] (Fax) PCP - ACO Reach 12/04/22 Elaina Burgess PA [address] [place] [phone] Physician Entry Specialist Neurology 12/02/23 Kenna Lockett, GRAHAM Registered Nurse Family Medicine 12/02/23 Maty Win MD [address] [place] [address] Referring Physician Behavioral Health 12/02/23 Photographer Lithographic Relationship Specialty Start Date End Date Bubba Ghotra MD [address] [place] [address] (Fax) PCP - General Family Medicine 11/27/22 Bubba Ghotra MD [address] [place] [address] (Fax) PCP - ACO Reach 12/04/22 Elaina Burgess PA [address] [place] [phone] Physician Entry Specialist Neurology 12/02/23 Kenna Lockett RN Registered Nurse Family Medicine 12/02/23 Maty Win MD [address] [place] [address] Referring Physician Behavioral Health 12/02/23 Photographer Lithographic Relationship Specialty Start Date End Date Bubba Ghotra MD [address] [phone] (Fax) PCP - General Family Medicine 11/27/22 Bubba Ghotra MD [address] [place] [phone] (Fax) PCP - ACO Reach 12/04/22 Elaina Burgess PA [address] [place] [address] Physician Entry Specialist Neurology 12/02/23 Kenna Lockett, GRAHAM Registered Nurse Family Medicine 12/02/23 Maty Win MD [address] [place] [address] Referring Physician Behavioral Health 12/02/23 Photographer Lithographic Relationship Specialty Start Date End Date Bubba Ghotra MD [address] [place] [address] (Fax) PCP - General Family Medicine 11/27/22 Bubba Ghotra MD [address] [address] (Fax) PCP - ACO Reach 12/04/22 Elaina Burgess PA [address] [place] [address] Physician Entry Specialist Neurology 12/02/23 Kenna Lockett, RN Registered Nurse Family Medicine 12/02/23 Maty Win MD [address] [place] [address] Referring Physician Behavioral Health 12/02/23 REASON FOR [...] BE BASED ON THE PRIMARY CLINICAL RECORDS. [facility]. provides no warranty or guarantee of the accuracy or completeness of information in this document.
== END 2024-06-22 13:11 | disposition home or self-care (01) ==
LOC: MRI 13:10
PROVIDERS: PCP Family Medicine; Visit Provider Physician Assistant Medical
DX: G35 Multiple sclerosis (principal)
CPT/HCPCS: 70553; A9575

== ENCOUNTER 2024-06-23 14:08 | Outpatient (OUT) | payer MEDICARE, MEDICAID, SELFPAY ==
--- NOTE | 2024-06-23 14:18 | MR_ITS ---
The [address] [address] Patient Name: SERGIO MCKENNA MRN: [facility]:[id number] date: 1970 Sex: M Assigned Patient Location: MRI Current Patient Location: MRI Accession/Order Number: [id number] Exam Date: 06/23/2024 15:18 Report Date: 06/23/2024 17:17 At the request of: ANJALI FRAUSTO Procedure: MR cervical spine wo/w con MR cervical spine wo/w con, MR thoracic spine wo/w con, 06/23/2024 3:18 PM EST INDICATION: Multiple Sclerosis COMPARISON: Prior MRI of the cervical and thoracic spine dated 01/17/2022 TECHNIQUE: Multiplanar, multisequential MRI images of cervical and thoracic spine were obtained without and with contrast. FINDINGS: CERVICAL SPINE: There is normal physiologic cervical lordosis and thoracic kyphosis. The vertebral heights are relatively preserved. There are mild disc osteophyte complex associated with uncovertebral joint arthrosis from C3 to T1. The cervicomedullary junction is unremarkable. There are stable foci of T2 prolongation within the right hemicord at the level of C3-C4 and in the center of hemicord at the level of C6-C7 are noted. No other definite signal abnormality within the spinal cord is noted. No abnormal enhancing lesion is noted. No significant neuroforaminal narrowing or canal stenosis at the level of C2-C3 is noted. At the level of C3-C4, there is mild right neuroforaminal narrowing and no canal stenosis. At the level of C4-C5, there is moderate bilateral neuroforaminal narrowing and no canal stenosis. At the level of C5-C6, there is severe bilateral neuroforaminal narrowing and no canal stenosis. At the level of C6-C7, there is mild bilateral neuroforaminal narrowing and no canal stenosis. Level of C7-T1 is unremarkable. THORACIC SPINE: The conus medullaris is at the level of L1. No signal abnormality within the spinal cord is noted. No significant neuroforaminal narrowing or canal stenoses in the thoracic spine is noted. MR/MR cervical spine wo/w con IMPRESSION: Stable demyelinating lesions in the cervical spine. No new or active lesion is noted. Mild to moderate degenerative changes of the cervical spine in particular at the level of C4-C5 and C5-C6. No significant neuroforaminal narrowing or canal stenosis in thoracic spine is noted. Electronically authenticated by: OZZIE PRITCHETT Date: 06/23/2024 17:17
--- NOTE | 2024-06-23 14:18 | MR_ITS ---
The [address] [address] Patient Name: SERGIO MCKENNA MRN: [facility]:[id number] date: 1970 Sex: M Assigned Patient Location: MRI Current Patient Location: MRI Accession/Order Number: [id number] Exam Date: 06/23/2024 15:18 Report Date: 06/23/2024 17:17 At the request of: ANJALI FRAUSTO Procedure: MR thoracic spine wo/w con MR cervical spine wo/w con, MR thoracic spine wo/w con, 06/23/2024 3:18 PM EST INDICATION: Multiple Sclerosis COMPARISON: Prior MRI of the cervical and thoracic spine dated 01/17/2022 TECHNIQUE: Multiplanar, multisequential MRI images of cervical and thoracic spine were obtained without and with contrast. FINDINGS: CERVICAL SPINE: There is normal physiologic cervical lordosis and thoracic kyphosis. The vertebral heights are relatively preserved. There are mild disc osteophyte complex associated with uncovertebral joint arthrosis from C3 to T1. The cervicomedullary junction is unremarkable. There are stable foci of T2 prolongation within the right hemicord at the level of C3-C4 and in the center of hemicord at the level of C6-C7 are noted. No other definite signal abnormality within the spinal cord is noted. No abnormal enhancing lesion is noted. No significant neuroforaminal narrowing or canal stenosis at the level of C2-C3 is noted. At the level of C3-C4, there is mild right neuroforaminal narrowing and no canal stenosis. At the level of C4-C5, there is moderate bilateral neuroforaminal narrowing and no canal stenosis. At the level of C5-C6, there is severe bilateral neuroforaminal narrowing and no canal stenosis. At the level of C6-C7, there is mild bilateral neuroforaminal narrowing and no canal stenosis. Level of C7-T1 is unremarkable. THORACIC SPINE: The conus medullaris is at the level of L1. No signal abnormality within the spinal cord is noted. No significant neuroforaminal narrowing or canal stenoses in the thoracic spine is noted. MR/MR thoracic spine wo/w con IMPRESSION: Stable demyelinating lesions in the cervical spine. No new or active lesion is noted. Mild to moderate degenerative changes of the cervical spine in particular at the level of C4-C5 and C5-C6. No significant neuroforaminal narrowing or canal stenosis in thoracic spine is noted. Electronically authenticated by: OZZIE PRITCHETT Date: 06/23/2024 17:17
--- OUTSIDE RECORDS SUMMARY | 2024-06-23 14:26 | XMS_ITS | CCD ---
Author Organization [facility] Care Team Providers Care Moss Picker Name Role Phone Tunde Das Admitting Unavailable Tunde Das Attending Unavailable Bubba Ghotra Primary Care Unavailable BUBBA GHOTRA Primary Care Physician eHri MURRELL Referring Unavailable Heri MURRELL Admitting Unavailable [...] PEREIRA Primary Care Unavailable TATI, DR KELSEA Hamitlon Attending Unavailayo DUFFY, DR KELSEA Hamilton Admitting [...] Unavailable JULIO ., DR VILLAGOMEZ Admitting Unavailable [place], DR CRUZITO Schuster Consulting Unavailable HEMEYER ., [...] Bubba Ghotra MD Unavailable Elaina Payton Unavailable Kenna Lockett RN Unavailable Maty Win MD Unavailable Bubba Ghotra MD Primary Care Provider Bubba Ghotra MD Unavailable BUBBA GHOTRA Attending Unavailable BUBBA GHOTRA Attending Unavailable BUBBA GHOTRA Attending Unavailable BUBBA GHOTRA Attending Unavailable BUBBA GHOTRA Attending Unavailable REBA ALCAZAR Attending Unavailable REBA ALCAZAR Attending Unavailable Allergies Allergy Classification Reported Allergen(s) Allergy Type Date of Onset Reaction(s) Facility (17 sources) PARoxetine; Translations: [paroxetine] Drug Allergy 4 Mild (qualifier value) [facility] (2 sources) PARoxetine Drug Allergy 3 [facility] (12 sources) venlafaxine Drug Allergy 3 Unknown [facility] (14 sources) venlafaxine Drug Allergy 3 Unknown Reaction [facility] (10 sources) PARoxetine Drug Allergy 2 Rash [facility] Medications Current Medications Medication Drug Class(es) Dates Sig (Normalized) Sig (Original) albuterol 0.83 mg/ml inhalation solution (20 sources) beta2-Adrenergic Agonist Start: 03-15-2024 End: 09-11-2024 albuterol (2.5 MG/3ML) 0.083% nebulizer solution Indications: [...] 2020 9:57am ARIPiprazole 5 mg oral tablet (10 sources) Atypical Antipsychotic Start: 03-04-2024 take 1 tablet by mouth once daily ARIPiprazole (Abilify) 5 MG tablet Take 5 mg by mouth Daily 03/04/2024 Active Start: 03-04-2024 take 1 tablet by rachel th in the morning ARIPiprazole (Abilify) 2 MG tablet Take 2 mg by mouth in the morning. 03/04/2024 Active baclofen 20 mg oral tablet [...] formoterol fumarate 0.0045 mg/actuat metered dose inhaler (11 sources) Corticosteroid, beta2-Adrenergic Agonist Start: 01-25-2024 End: [...] ce a day Active Cannabinoids (medical cannabis) (10 sources) take 1 dose by mouth once [...] procedure., # 14 tab(s), Refills(s) 0, Pharmacy: [facility]/pharmacy #[id number], 178, cm, 10/14/21 12:57:00 EDT, Height/Length Dosing, 65.8, kg, 10/14/21 12:57:00 EDT, Weight Dosing Start Date: 12/02/21 Status: Ordered clonazePAM 0.5 mg oral tablet (20 sources) Benzodiazepine Start: 09-10-19 24 take 1 tablet by mouth once [...] procedure, # 1 tab(s), Refills(s) 0, Pharmacy: [facility]/pharmacy #[id number], 178, cm, 10/14/21 12:57:00 EDT, Height/Length [...] morning. Active take 1 capsule by mo ut every twenty-four hours DULoxetine HCl 60 MG [...] Ordered naloxone hydrochloride 40 mg/ml nasal spray (10 sources) Opioid Antagonist naloxone (Narc an) 4 mg/0.1 mL nasal spray Administer 4 mg into affected nostril(s) if needed for opioid reversal. Active Nebul[facility] Start: 09-15-2023 Nebulizers (Compressor/Nebulizer) [facility] Indications: Chronic hypoxemic respiratory failure (CMS/HCC) , [...] 08-06-2021 take 2 tablets by mo uth twice daily Trileptal 300 mg Tab 600 [...] tablet Orally Twice a day Active Oxygen (20 sources) Start: 09-15-2023 oxygen (O2) ga s [...] and 1 tablet (40 mg) before bedtime. 60 tablet 5 11/26/2023 05/24/2024 Active Start: 08-06-2021 take 1 mg by [...] End: 04-19-2024 take 1 capsule by mouth in the morning, then take 1 capsule by mouth in the evening, then take 1 capsule by mouth at bedtime pregabalin (Lyrica) 200 MG capsule Indications: Cervical radiculopathy Take 1 capsule (200 mg) by mouth in the morning and 1 capsule (200 mg) in the evening and 1 capsule (200 mg) before bedtime. Due now. 90 capsule 02/23/2024 Active Start: 08-06-2021 take 1 capsule by mo [facility] three times daily Lyrica 200 mg Cap 200 mg = 1 cap(s), Oral, TID, Refills(s) 0 Start Date: 08/06/21 Status: Ordered take 1 capsule by mo [facility] once daily at bedtime Pregabalin 200 MG 1 capsule 1 to 3 hours before bedtime Orally Once a day Active QUEtiapine 50 [...] Start: 08-06-2021 take 2 tablets by mo [facility] three times daily SEROquel 25 mg Tab 50 mg = 2 tab(s), Oral, TID, Refills(s) 0 Start Date: 08/06/21 Status: Ordered Start: 02-15-2020 take 3 tablets by mo ut once daily at bedtime Quetiapine (Seroquel) 25 mg Tablet Active 75 MG PO Daily at bedtime February 15, 2020 12:00am [facility] SEROquel 50 MG 1 [...] Start: 09-10-2023 take 2 tablets by mo ut twice daily as needed Sennosides Active MG PO September 10, 2023 1:00am [employer] tabs as needed Orally BID; Note: Source Status: Taking; Refills: 2; Qty: 120 Tablet; Provider: Ira Chaudhry sennosides, retirement 8.6 mg oral tablet (19 sources) Start: 04-02-2023 take 2 tablets by mouth twice daily as needed for constipation senna (Senokot) 8.6 MG tablet Indications: Constipation Take 2 tablets by mouth 2 (two) times a day as needed for constipation 04/02/2023 Active sodium chloride 9 mg/ml inhalation solution (10 sources) Start: 04-26-2024 sodium chlorid e 0.9 [...] (and muus clearance) 600 mL 04/06/2024 Active Start: 11-05-2023 sodium chlorid e 0.9 % nebulizer solution Indications: Panlobular emphysema (CMS/HCC) Take 3 mL by nebulization every 4 (four) hours if needed for shortness of breath (and muus clearance) 90 mL 2 11/05/2023 Active spironolactone 25 mg oral tablet (11 sources) Aldosterone Antagonist Start: 04-04-2024 End: 10-15-2024 take 1 tablet by mouth once daily spironolactone (Aldactone) 25 MG tablet Indications: Venous insufficiency Take 1 tablet (25 mg) by mouth Daily 90 tablet 1 04/18/2024 10/15/2024 Active Start: 11-26-2023 take 1 tablet by rachel th once daily spironolactone (Aldactone) 25 MG tablet Indications: Venous insufficiency Take 1 tablet (25 mg) by mouth Daily 30 tablet 2 11/26/2023 Active Completed/Discontinued Medications Medication Drug Class(es) Dates [...] 12, 2017 12:00am February 15, 2020 9:58am primidone 50 mg oral tablet (20 sources) Anti-epileptic Agent Start: 09-10-2023 End: 03-29-2024 take 1 tablet by mouth once daily in the morning, then take 2 tablets by mouth once daily at bedtime primidone (Mysoline) 50 MG tablet Indications: Tremor TAKE ONE TABLET BY MOUTH DAILY IN THE MORNING AND TWO TABLETS DAILY AT BEDTIME 90 tablet 2 11/26/2023 03/29/2024 Discontinued Start: 08-06-2021 primidone 50 m g Tab 25 mg = 0.5 tab(s), Oral, Once a day (at bedtime), # 15 tab(s), Refills(s) 0 Start Date: 08/06/21 Status: Ordered take 1 tablet by rachel th every twenty-four hours Primidone 50 MG 1 tablet Orally Once a day Active promethazine hydrochloride 25 mg oral tablet (20 [...] 2 08-31-2019 Chronic Disorders of lipid metabolism (12 sources) Hyperlipidemia; Translations: [Mixed hyperlipidemia] Onset: 3 08-31-2019 Chronic Esophageal disorders (20 sources) Gastroesophageal reflux disease; Translations: [Gastro-esophageal reflux disease without esophagitis] Onset: 3 12-01-2022 Chronic Essential hypertension (11 sources) Essential (primary) hypertension; Translations: [Essential hypertension] [...] Translations: [WEAKNESS] Onset: 3 Episodic Mood disorders (13 sources) Depressive disorder; Translations: [Major depressive disorder, recurrent, moderate] Onset: 2 08-31-2019 Chronic Multiple sclerosis (20 sources) Multiple sclerosis; Translations: [Multiple sclerosis] Onset: 3 09-21-2019 Chronic Comment on above: Aug 2000 Nausea and vomiting (15 sources) Nausea with vomiting, unspecified; Translations: [Nausea] Onset: 3 Episodic Nutritional deficiencies (10 sources) Moderate protein energy malnutrition; Translations: [Moderate protein-calorie malnutrition] Onset: 4 09-15-2023 Chronic Other aftercare (1 source) 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; Translations: [OTH DEPUTY CONTROLLER CURRENT DRUG THERAPY] Onset: 3 Episodic Other aftercare (10 sources) Seen by palliative care physician; Translations: [Encounter for palliative care] Episodic Other aftercare (1 source) Encounter for palliative care Episodic Other aftercare (4 sources) Long-term current use of drug therapy; Translations: [penitentiary (current) use of opiate analgesic] 09-10-2023 Episodic Other aftercare (1 source) 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; Translations: [Long-term [...] [Constipation, unspecified] Episodic Other male genital disorders (10 sources) Secondary erectile dysfunction; Translations: [Male erectile [...] pain] 09-17-2023 Chronic Other nervous system disorders (10 sources) Difficulty walking; Translations: [Difficulty in walking, not elsewhere classified] Onset: 3 12-01-2022 Chronic Other nervous system disorders (5 sources) Chronic pain syndrome; Translations: [Chronic pain syndrome] Onset: 4 05-10-2024 Chronic Other nervous system disorders (1 source) Paresthesia of skin; Translations: [PARESTHESIA OF SKIN] Onset: 3 Episodic Other nervous system disorders (5 sources) Tremor; Translations: [Tremor, unspecified] 04-12-2024 Episodic [...] OUT PT OT RSN] Onset: 3 Episodic Respiratory failure; insufficiency; arrest (adult) (10 sources) Chronic hypoxemic respiratory failure; Translations: [Chronic respiratory failure with hypoxia] Onset: 4 09-14-2023 Chronic Spondylosis; intervertebral disc disorders; other back problems (2 sources) Cervical radiculopathy; Translations: [Radiculopathy, cervical region] 04-18-2024 Episodic Substance-related disorders (20 sources) Nicotine dependence, cigarettes, uncomplicated; Translations: [Substance abuse] Onset: 3 Resolved: 4 12-01-2022 Chronic Substance-related disorders (9 sources) Marijuana [...] Episodic/Chronic Conditions associated with dizziness or vertigo (10 sources) Vertigo of central origin; Translations: [Vertigo of central origin] Onset: 12-01-2022 12-01-2022 Episodic Gastritis and duodenitis (10 sources) Gastritis; Translations: [Gastritis, unspecified, without bleeding] Onset: 12-01-2022 12-01-2022 Episodic Genitourinary symptoms and ill-defined conditions (13 sources) Dysuria; Translations: [Increased frequency of urination] Onset: 12-12-2021 08-31-2019 Episodic Mood disorders (10 sources) Mood disorders Onset: 12-23-2023 12-23-2023 Other aftercare (10 sources) Polypharmacy ; Translations: [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] Onset: 08-04-2020 12-01-2022 Episodic Other connective tissue disease (10 sources) Muscle weakness; Translations: [Muscle weakness (generalized)] Onset: 12-01-2022 12-01-2022 Episodic Other diseases of veins and lymphatics (11 sources) Vascular insufficiency; Translations: [Venous insufficiency (chronic) (peripheral)] Onset: 11-27-2023 11-27-2023 Episodic Other disorders of stomach and duodenum (10 sources) Cyclical vomiting syndrome; Translations: [Cyclical vomiting syndrome unrelated to migraine] Onset: 12-01-2022 12-01-2022 Episodic Other lower respiratory disease (1 source) Shortness of breath; Translations: [SHORTNESS OF BREATH] Onset: 05-30-2022 Episodic Other nervous system disorders (10 sources) Abnormal gait; Translations: [Unsteadiness on feet] Onset: 12-01-2022 12-01-2022 Episodic Other nutritional; endocrine; and metabolic disorders (10 sources) Underweight; Translations: [Underweight] Onset: 12-01-2022 12-01-2022 Episodic Pneumonia (except that caused by tuberculosis or sexually transmitted disease) (1 source) Pneumonia, unspecified organism; Translations: [PNEUMONIA UNSPECIFIED ORGANISM] Onset: 05-30-2022 Episodic Residual codes; unclassified (11 sources) Insomnia; Translations: [Insomnia, unspecified] Onset: 12-01-2022 12-01-2022 Episodic Screening and history of mental health and substance abuse codes (12 sources) Ex-smoker; Translations: [Personal history of nicotine dependence] Onset: 12-23-2023 Resolved: 04-05-2024 08-31-2019 Episodic Unclassified (1 source) COUGH, UNSPECIFIED; Translations: [COUGH, UNSPECIFIED] Onset: 05-28-2022 Results Test Name Value Interpretation Reference Range Facility ALL SODIUMon 05-27-2024 Sodium [Moles/Vol] 144 mmol/L 136 - 145 mmol/L [facility] AMYLASEon 11-13-2022 Amylase [Catalytic activity/Vol] 37 U/L Normal 25-115 [facility] Comment on above: Performed By: #### A MY, CMP, LIPA ####[facility] [address] [place], [place] [address]BaDr. Cortez Younger CBC AUTO DIFFon 11-13-2022 BASO # 0.1 103/ul Normal 0.0-0.1 [facility] Comment on above: Performed By: #### C BC #### [facility] [address] [place], [place] [address] Dr. Cortez Younger Basophils/100 WBC (Bld) 1.3 % Normal 0.2-2.0 [facility] Comment on above: Performed By: #### C BC #### [facility] [address] [place] [address] Dr. Cortez Younger EO # 0.1 103/ul Normal 0.0-0.7 [facility] Comment on above: Performed By: #### C BC #### [facility] [address] [place] [address] Dr. Cortez Younger Eosinophils/100 WBC (Bld) 0.9 % Normal 0.9-7.0 [facility] Comment on above: Performed By: #### C BC #### [facility] [address] [place] [address] Dr. Cortez Younger Erythrocyte distribution width (RBC) [Ratio] 12.5 % Normal 11.0-15.0 [facility] Comment on above: Performed By: #### C BC #### [facility] [address] [place] [address] Dr. Cortez Younger Hematocrit (Bld) [Volume fraction] 42.3 % Normal 42.0-54.0 [facility] Comment on above: Performed By: #### C BC #### [facility] [address] [place] [address] Dr. Cortez Younger Hemoglobin (Bld) [Mass/Vol] 15.1 g/dL Normal 14.0-18.0 [facility] Comment on above: Performed By: #### C BC #### [facility] [address] [place] [address] Dr. Cortez Younger IG # 0.04 10e3/ul Critically high 0.00-0.03 [facility] Comment on above: Performed By: #### C BC #### [facility] [address] [place] [address] Dr. Cortez Younger IG % 0.6 % Critically high 0.0-0.5 [facility] Comment on above: Performed By: #### C BC #### [facility] [address] [place] [address] Dr. Cortez Younger LYMPH # 1.4 103/ul Normal 1.2-3.8 [facility] Comment on above: Performed By: #### C BC #### [facility] [address] [place] [address] Dr. Cortez Younger Lymphocytes/100 WBC (Bld) 20.7 % Normal 20.5-60.0 [facility] Comment on above: Performed By: #### C BC #### [facility] [address] [place] [address] Dr. Cortez Younger MANUAL DIFF REQ NO Normal [facility] Comment on above: Performed By: #### C BC #### [facility] [address] [place] [address] Dr. Cortez Younger MCH (RBC) [Entitic mass] 31.6 pg Normal 25.9-34.0 [facility] Comment on above: Performed By: #### C BC #### [facility] [address] [place] [address] Dr. Cortez Younger MCHC (RBC) [Mass/Vol] 35.7 g/dL Critically high 29.9-35.2 [facility] Comment on above: Performed By: #### C BC #### [facility] [address] [place] [address] Dr. Cortez Younger MCV (RBC) [Entitic vol] 88.5 fL Normal 80.0-94.0 [facility] Comment on above: Performed By: #### C BC #### [facility] [address] [place] [address] Dr. Cortez Younger MONO # 0.5 103/ul Normal 0.3-0.8 [facility] Comment on above: Performed By: #### C BC #### [facility] [address] [place] [address] Dr. Cortez Younger Monocytes/100 WBC (Bld) 7.7 % Normal 1.7-12.0 [facility] Comment on above: Performed By: #### C BC #### [facility] [address] [place] [address] Dr. Cortez Younger NEUT # 4.8 103/ul Normal 1.4-6.5 [facility] Comment on above: Performed By: #### C BC #### [facility] [address] [place] [address] Dr. Cortez Younger Neutrophils/100 WBC (Bld) 68.8 % Normal 43.0-75.0 [facility] Comment on above: Performed By: #### C BC #### [facility] [address] [place] [address] Dr. Cortez Younger Platelet mean volume (Bld) [Entitic vol] 9.0 fL Critically low 9.5-13.5 [facility] Comment on above: Performed By: #### C BC #### [facility] [address] [place] [address] Dr. Cortez Younger PLT 384 103/ul Normal 150-450 [facility] Comment on above: Performed By: #### C BC #### [facility] [address] [place] [address] Dr. Cortez Younger RBC 4.78 106/ul Normal 4.70-6.10 [facility] Comment on above: Performed By: #### C BC #### [facility] [address] [place] [address] Dr. Cortez Younger WBC 7.0 103/ul Normal 4.0-11.0 [facility] Comment on above: Performed By: #### C BC #### [facility] [address] [place] [address] Dr. Cortez Younger ER URINE PROFILEon 3 Bilirubin Ql (U) Negative Normal NEGATIVE [facility] Comment on above: Performed By: #### E RUR ####[facility] [address] [place] [address]Dr. Cortez Younger Clarity (U) CLEAR Normal CLEAR [facility] Comment on above: Performed By: #### E RUR ####[facility] [address] [place] [id number]. Cortez Younger Color (U) LT. YELLOW Normal YELLOW [facility] Comment on above: Performed By: #### E RUR ####[facility] [address] [place] [address]Dr. Cortez Aren ERUAHD A micrscopic examina tion will be performed if indicated. Normal [facility] Comment on above: Performed By: #### E RUR ####[facility] [address] [place] [address]Dr. Cortez Younger Glucose Ql (U) Negative Normal NEGATIVE [facility] Comment on above: Performed By: #### E RUR ####[facility] [address] [place], [place] [address]Dr. Cortez Younger Hemoglobin Ql (U) Negative Normal NEGATIVE [facility] Comment on above: Performed By: #### E RUR ####[facility] [address] [place], [place] [address]Dr. Cortez Younger Ketones Ql (U) Negative Normal NEGATIVE [facility] Comment on above: Performed By: #### E RUR ####[facility] [address] [place], [place] [address]Dr. Cortez Younger LEUKOCYTES Negative Normal NEGATIVE [facility] Comment on above: Performed By: #### E RUR ####[facility] [address] [place], [place] [address]Dr. Cortez Younger Nitrite Ql (U) Negative Normal NEGATIVE [facility] Comment on above: Performed By: #### E RUR ####[facility] [address] [place], [place] [address]Dr. Cortez Aren pH (U) 7.5 [pH] Normal 5-9 [facility] Comment on above: Performed By: #### E RUR ####[facility] [address] [place], [place] [address]Dr. Cortez Younger SPEC GRAVITY <=1.005 Abnormal 1.005-<=1.025 [facility] Comment on above: Performed By: #### E RUR ####[facility] [address] [place], [place] [address]Dr. Cortez Younger UA PROTEIN Negative Normal NEGATIVE/ TRACE [facility] Comment on above: Performed By: #### E RUR ####[facility] [address] [place] [address]Dr. Cortez Younger UR MICRO IND NOT INDICATED Normal [facility] Comment on above: Performed By: #### E RUR ####[facility] [address] [place] [address]Dr. Cortez Younger Urobilinogen Qn (U) 0.2 {Fidelia'U}/dL Normal 0.2 - 1.0 [facility] Comment on above: Performed By: #### E RUR ####[facility] [address] [place] [address]Dr. Cortez Younger LIPASEon 11-13-2022 Lipase [Catalytic activity/Vol] 111.0 U/L Normal 73.0-393.0 [facility] Comment on above: Performed By: #### A MY, CMP, LIPA ####[facility] [address] [place], [place] [address]Dr. Cortez Younger PROF 14(COMP METB)on 023 Albumin [Mass/Vol] 3.9 g/dL Normal 3.4-5.0 [facility] Comment on above: Performed By: #### A MY, CMP, LIPA ####[facility] [address] [place], [place] [address]Dr. Cortez Younger Albumin/Globulin [Mass ratio] 1.4 {ratio} Normal [facility] Comment on above: Performed By: #### A MY, CMP, LIPA ####[facility] [address] [place] [address]Dr. Cortez Younger ALP [Catalytic activity/Vol] 70 U/L Normal 46-116 [facility] Comment on above: Performed By: #### A MY, CMP, LIPA ####[facility] [address] [place] [address]Dr. Cortez Younger ALT [Catalytic activity/Vol] 24 U/L Normal 16-63 [facility] Comment on above: Performed By: #### A MY, CMP, LIPA ####[facility] [address] [place] [address]Dr. Cortez Younger Anion gap [Moles/Vol] 9.8 mmol/L Normal [facility] Comment on above: Performed By: #### A MY, CMP, LIPA ####[facility] [address] [place] [address]Dr. Cortez Younger AST [Catalytic activity/Vol] 12 U/L Critically low 15-37 [facility] [facility] Comment on above: Performed By: #### A MY, CMP, LIPA ####[facility] [address] [place] [address]Dr. Cortez Younger Bilirubin [Mass/Vol] 0.3 mg/dL Normal 0.2-1.0 [facility] Comment on above: Performed By: #### A MY, CMP, LIPA ####[facility] Svxfwfbrwv[address] [place], [place] [address]Dr. Cortez Younger Calcium [Mass/Vol] 9.2 mg/dL Normal 8.5-10.1 [facility] Comment on above: Performed By: #### A MY, CMP, LIPA ####[facility] Zlaezvwjnf[address] [place], [place] [address]Dr. Cortez Younger Chloride [Moles/Vol] 98 mmol/L Normal 98-107 [facility] Comment on above: Performed By: #### A MY, CMP, LIPA ####[facility] Nujjxctxmc[address] [place], [place] [address]Dr. Cortez Younger CO2 [Moles/Vol] 28.7 mmol/L Normal 21.0-32.0 [facility] Comment on above: Performed By: #### A MY, CMP, LIPA ####[facility] [address]nvklexr[address] [place] [address]Dr. Cortez Younger Creatinine [Mass/Vol] 0.88 mg/dL Normal 0.70-1.30 [facility] Comment on above: Performed By: #### A MY, CMP, LIPA ####[facility] [address] [place] [address]Dr. Cortez Younger EGFR-AF YEMENI >60 Normal >=60 [facility] Comment on above: Performed By: #### A MY, CMP, LIPA ####[facility] Y[address]prq[address] [place] [address]Dr. Cortez Younger EGFR-NON AF YEMENI >60 Normal >=60 [facility] Comment on above: Performed By: #### A MY, CMP, LIPA ####[facility] Qxdzcbreja[address] [place] [address]Dr. Cortez Younger Globulin (S) [Mass/Vol] 2.7 g/dL Normal [facility] Comment on above: Performed By: #### A MY, CMP, LIPA ####[facility] Gedfinlltk[address] [place], [place] [address]Dr. Cortez Younger Glucose [Mass/Vol] 105 mg/dL Normal 74-106 [facility] Comment on above: Performed By: #### A MY, CMP, LIPA ####[facility] Tjgtpdsxoz[address] [place], [place] [address]Dr. Cortez Younger Potassium [Moles/Vol] 3.5 mmol/L Normal 3.5-5.1 [facility] Comment on above: Performed By: #### A MY, CMP, LIPA ####[facility] Abyfuxhgck[address] [place], [place] [address]Dr. Cortez Younger Protein [Mass/Vol] 6.6 g/dL Normal 6.4-8.2 [facility] Comment on above: Performed By: #### A MY, CMP, LIPA ####[facility] Saaewmzyrs[address] [place], [place] [address]Dr. Cortez Younger Sodium [Moles/Vol] 133 mmol/L Critically low 136-145 [facility] Comment on above: Performed By: #### A MY, CMP, LIPA ####[facility] Cmniyupbuy[address] [place], [place] [address]Dr. Cortez Younger Urea nitrogen [Mass/Vol] 4.0 mg/dL Critically low 7.0-18.0 [facility] Comment on above: Performed By: #### A MY, CMP, LIPA ####[facility] Osxqlbvvhu[address] [place], [place] [address]Dr. Cortez Younger Urea nitrogen/Creatinin e [Mass ratio] 4.5 mg/mg Normal [facility] Comment on above: Performed By: #### A MY, CMP, LIPA ####[facility] Panbibelwe[address] [place], [place] [address]VhDr. Cortez Younger XR ABD FLAT UP_PA Farideh [...] CRUZITO CRENSHAW Date: 2022-11-13 13:22 Normal [facility] FREE T4on 10-31-2022 Free T4 [Mass/Vol] 1.03 ng/dL Normal 0.76-1.46 [facility] Comment on above: Performed By: #### E RUR #### [facility] [address] [address] [address] Cortez Younger LIPID PROFILEon 10-31-2022 CHOL-HDL RATIO NORM SEE BELOW Normal [facility] Comment on above: Result Comment: 3.3 - 4.4 LOW RISK 4.4 - 7.1 AVERAGE RISK 7.1 - 11.0 MODERATE RISK >11.0 HIGH RISK Performed By: #### E RUR #### [facility] [address] [address] [address] Cortez Younger Cholesterol [Mass/Vol] 165 mg/dL Normal <=200 [facility] Comment on above: Performed By: #### E RUR #### [facility] [address] [address] [address] Cortez Younger Cholesterol in HDL [Mass/Vol] 59 mg/dL Normal 40-60 [facility] Comment on above: Performed By: #### E RUR #### [facility] [address] [address] [address] Cortez Younger Cholesterol in LDL [Mass/Vol] 83.8 mg/dL Normal [facility] Comment on above: Performed By: #### E RUR #### [facility] [address] [address] [address] Cortez Younger Cholesterol.total/ Cholesterol in HDL [Mass ratio] 2.8 {ratio} Normal [facility] Comment on above: Performed By: #### E RUR #### [facility] [address] [address] [address] Cortez Younger HDL NORMAL > or = 60 mg/dl - LO W CARDIOVASCULAR RISK <40 mg/dl - HIGH CARDIOVASCULAR RISK Normal [facility] Comment on above: Performed By: #### E RUR #### [facility] [address] [place] [address] Dr. Cortez Younger LDL CALC NORMAL SEE BELOW Normal [facility] Comment on above: Result Comment: <100 mg/dl OPTIMAL 100 - 129 mg/dl NEAR OR ABOVE OPTIMAL 130 - 159 mg/dl BORDERLINE HIGH 160 - 189 mg/dl HIGH >190 mg/dl VERY HIGH Performed By: #### E RUR #### [facility] [address] [place] [address] Dr. Cortez Younger Triglyceride [Mass/Vol] 111 mg/dL Normal <=150 [facility] Comment on above: Performed By: #### E RUR #### [facility] [address] [place] [address] Dr. Cortez Younger VLDL CALC 22.2 mg/dL Normal [facility] Comment on above: Performed By: #### E RUR #### [facility] [address] [place] [address] Dr. Cortez Younger MRI BRAIN WO W CONon 10-31-2 023 MRI BRAIN WO W CON EXAMINATION: [...] VERN LU Date: 2022-10-31 13:12 Normal [facility] PROF 14(COMP METB)on 023 Albumin [Mass/Vol] 4.0 g/dL Normal 3.4-5.0 [facility] Comment on above: Performed By: #### C MP ####[facility] [address] [place] [address]Dr. Cortez Younger Albumin/Globulin [Mass ratio] 1.3 {ratio} Normal [facility] Comment on above: Performed By: #### C MP ####[facility] N[address]psrtbin[address] [place] [address]Dr. Cortez Younger ALP [Catalytic activity/Vol] 66 U/L Normal 46-116 [facility] Comment on above: Performed By: #### C MP ####[facility] Nstrbkejul[address] [place] [address]Dr. Cortez Younger ALT [Catalytic activity/Vol] 21 U/L Normal 16-63 [facility] Comment on above: Performed By: #### C MP ####[facility] [address]amxbbz[address] [place] [address]Dr. Cortez Younger Anion gap [Moles/Vol] 9.4 mmol/L Normal [facility] Comment on above: Performed By: #### C MP ####[facility] Kimlzsxedg[address] [place] [address]Dr. Cortez Younger AST [Catalytic activity/Vol] 10 U/L Critically low 15-37 [facility] Comment on above: Performed By: #### C MP ####[facility] Suevbjjxux[address] [place] [address]Dr. Cortez Younger Bilirubin [Mass/Vol] 0.4 mg/dL Normal 0.2-1.0 [facility] Comment on above: Performed By: #### C MP ####[facility] Amavyetvon[address] [place], [place] [address]Dr. Cortez Younger Calcium [Mass/Vol] 9.1 mg/dL Normal 8.5-10.1 [facility] Comment on above: Performed By: #### C MP ####[facility] Oygkwuzqmo[address] [place], [place] [address]Dr. Cortez Younger Chloride [Moles/Vol] 98 mmol/L Normal 98-107 [facility] Comment on above: Performed By: #### C MP ####[facility] Uouylffiit[address] [place], [place] [address]Dr. Cortez Younger CO2 [Moles/Vol] 29.8 mmol/L Normal 21.0-32.0 [facility] Comment on above: Performed By: #### C MP ####[facility] Qtqtjclrzw[address] [place], [place] [address]Dr. Cortez Younger Creatinine [Mass/Vol] 0.89 mg/dL Normal 0.70-1.30 [facility] Comment on above: Performed By: #### C MP ####[facility] Hsvbzoavar[address] [place], [place] [address]Dr. Cortez Younger EGFR-AF YEMENI >60 Normal >=60 [facility] Comment on above: Performed By: #### C MP ####[facility] Rwmpiduywx[address] [place], [place] [address]Dr. Cortez Aren EGFR-NON AF YEMENI >60 Normal >=60 [facility] Comment on above: Performed By: #### C MP ####[facility] Eqicjjnktu[address] [place], [place] [address]Dr. Cortez Aren Globulin (S) [Mass/Vol] 3.1 g/dL Normal [facility] Comment on above: Performed By: #### C MP ####[facility] [address]gnj[address] [place] [id number]. Cortez Younger Glucose [Mass/Vol] 109 mg/dL Critically high 74-106 [facility] Comment on above: Performed By: #### C MP ####[facility] Dyfnhsmxbs[address] [place] [phone]. Cortez Younger Potassium [Moles/Vol] 4.2 mmol/L Normal 3.5-5.1 [facility] Comment on above: Performed By: #### C MP ####[facility] [address]thyuqgic[address] [place] [address]Dr. Cortez Younger Protein [Mass/Vol] 7.1 g/dL Normal 6.4-8.2 [facility] Comment on above: Performed By: #### C MP ####[facility] Brosabbort[address] [place] [address]Dr. Cortez Younger Sodium [Moles/Vol] 133 mmol/L Critically low 136-145 [facility] Comment on above: Performed By: #### C MP ####[facility] Hosgnwkeuy[address] [place] [address]Dr. Cortez Younger Urea nitrogen [Mass/Vol] 7.0 mg/dL Normal 7.0-18.0 [facility] Comment on above: Performed By: #### C MP ####[facility] Myxbrcgnfv[address] [place] [address]DrFish Younger Urea nitrogen/Creatinin e [Mass ratio] 7.9 mg/mg Normal [facility] Comment on above: Performed By: #### C MP ####[facility] Caejvdsczf[address] [place] [phone]. Cortez Younger TSHon 10-31-2022 TSH 1.574 uIU/mL Normal 0.358-3.740 [facility] Comment on above: Performed By: #### T SH #### [facility] [address] [address] [address] Cortez Younger COMPLIANCE DRUG SCREENon PDF . Normal [facility] Comment on above: Performed By: #### E RUR #### [facility] [address] [address] [address] Cortez Younger Summary FINAL Normal [facility] Comment on above: Result Comment: = TOXASSURE [...] test is not intended to distinguish between woafq-6-qavgehoktdpdbbagnmpl, the predominant form of THC in most herbal or marijuana-based products, and adslm-7-jwpqgdozoxelwetzcglg. Norhydrocodone 1620 ng/mg creat Norhydrocodone is an [...] = Performed By: #### E RUR #### [facility] [address] [place] [address] Dr. Cortez Younger HYDROCODONE AND METABOLITE, URINEon 10-24-2022 Hydrocodone 55 ng/mL Normal [facility] Comment on above: Performed By: #### E RUR #### [facility] [address] [place] [address] Dr. Cortez Younger Hydromorphone Negative Normal [facility] Comment on above: Result Comment: This test was developed and its performance characteristics determined by [facility]. It has not been cleared or approved by the Food and Drug Administration. Performed By: #### E RUR #### [facility] [address] [place] [address] Dr. Cortez Younger OSMOLALITYon 10-20-2022 Osmolality QNSREP Normal [facility] Comment on above: Result Comment: Spec imen quantity insufficient for verification by repeat analysis. contacted Lynda at your facility on 10-20-2022 Performed By: #### C BC #### [facility] [address] [address] [address] Cortez Younger OSMOLALITY URINEon 3 Osmolality, Urine 119 mOsmol/kg Normal [facility] Comment on above: Result Comment: 24 h r : 300 - 900 Random: 50 - 1400 After 12hr fluid restriction: >850 Performed By: #### O SMOU ####[facility] A[address]vj[address]qok[address] [place] [address]Dr. Cortez Younger CBC AUTO DIFFon 10-16-2022 BASO # 0.0 103/ul Normal 0.0-0.1 [facility] Comment on above: Performed By: #### C BC ####[facility] Efrahfuiuk[address] [place] [address]Dr. Cortez Younger Basophils/100 WBC (Bld) 0.3 % Normal 0.2-2.0 [facility] Comment on above: Performed By: #### C BC ####[facility] X[address]vkdghssg[address] [place] [address]Dr. Cortez Younger EO # 0.0 103/ul Normal 0.0-0.7 [facility] Comment on above: Performed By: #### C BC ####[facility] V[address]dlulsc[address] [place] [address]Dr. Cortez Younger Eosinophils/100 WBC (Bld) 0.2 % Critically low 0.9-7.0 [facility] Comment on above: Performed By: #### C BC ####[facility] [address]emrbjbn[address] [place] [address]Dr. Cortez Younger Erythrocyte distribution width (RBC) [Ratio] 12.1 % Normal 11.0-15.0 [facility] Comment on above: Performed By: #### C BC ####[facility] Es[address]byremla[address] [place] [address]Dr. Cortez Younger Hematocrit (Bld) [Volume fraction] 45.9 % Normal 42.0-54.0 [facility] Comment on above: Performed By: #### C BC ####[facility] [address]ogdyr[address] [place] [phone]. Cortez Younger Hemoglobin (Bld) [Mass/Vol] 16.7 g/dL Normal 14.0-18.0 [facility] Comment on above: Performed By: #### C BC ####[facility] N[address]jukcv[address] [place] [phone]. Cortez Younger IG # 0.06 10e3/ul Critically high 0.00-0.03 [facility] Comment on above: Performed By: #### C BC ####[facility] Wy[address]yswrvp[address] [place] [address]Dr. Cortez Younger IG % 0.5 % Normal 0.0-0.5 [facility] Comment on above: Performed By: #### C BC ####[facility] Irabsdqadk[address] [place] [address]Dr. Cortez Aren LYMPH # 1.5 103/ul Normal 1.2-3.8 [facility] Comment on above: Performed By: #### C BC ####[facility] S[address]ybicnvg[address] [place] [address]Dr. Cortez Younger Lymphocytes/100 WBC (Bld) 13.5 % Critically low 20.5-60.0 [facility] Comment on above: Performed By: #### C BC ####[facility] [address]pfdvu[address] [place] [address]Dr. Cortez Aren MANUAL DIFF REQ NO Normal [facility] Comment on above: Performed By: #### C BC ####[facility] Afggnsqwti[address] [place] [phone]. Cortez Younger MCH (RBC) [Entitic mass] 31.2 pg Normal 25.9-34.0 [facility] Comment on above: Performed By: #### C BC ####[facility] Esrxbhjssk[address] [place] [phone]. Cortez Aren MCHC (RBC) [Mass/Vol] 36.4 g/dL Critically high 29.9-35.2 [facility] Comment on above: Performed By: #### C BC ####[facility] [address]fdlzl[address] [place] [phone]. Cortez Aren MCV (RBC) [Entitic vol] 85.6 fL Normal 80.0-94.0 [facility] Comment on above: Performed By: #### C BC ####[facility] B[address]ktnwlar[address] [place] [phone]. Cortez Aren MONO # 0.6 103/ul Normal 0.3-0.8 [facility] Comment on above: Performed By: #### C BC ####[facility] Re[address]utmjbhx[address] [place] [phone]. Eleanorvalerie Younger Monocytes/100 WBC (Bld) 5.4 % Normal 1.7-12.0 [facility] Comment on above: Performed By: #### C BC ####[facility] G[address]wczy[address] [place], [place] [address]Dr. Cortez Younger NEUT # 8.9 103/ul Critically high 1.4-6.5 [facility] Comment on above: Performed By: #### C BC ####[facility] C[address]fs[address] [place], [place] [id number]. Eleanorvalerie Younger Neutrophils/100 WBC (Bld) 80.1 % Critically high 43.0-75.0 [facility] Comment on above: Performed By: #### C BC ####[facility] Ryhygdhzdh[address] [place], [place] [address]Dr. Cortez Younger Platelet mean volume (Bld) [Entitic vol] 9.7 fL Normal 9.5-13.5 [facility] Comment on above: Performed By: #### C BC ####[facility] J[address]obcmjanv[address] [place] [phone]. Cortez Younger PLT 364 103/ul Normal 150-450 [facility] Comment on above: Performed By: #### C BC ####[facility] Ehndcpbhvh[address] [place] [phone]. Cortez Younger RBC 5.36 106/ul Normal 4.70-6.10 [facility] Comment on above: Performed By: #### C BC ####[facility] T[address]zedzkhbd[address] [place], [place] [address]CuFish Younger WBC 11.1 103/ul Critically high 4.0-11.0 [facility] Comment on above: Performed By: #### C BC ####[facility] Psvjavnofn[address] [place], [place] [address]RhFish Younger Covid-19 PCR (CVDTB)on SARS-CoV-2 (COVID-19) RNA AXEL+probe Ql (Unsp spec) Not detected Normal NOT DETECTED [facility] Comment on above: Result Comment: When [...] for this test is supported by the [place] of Health and Human Service's declaration that [...] be used). Performed By: #### C VDTB ####[facility] D[address]trjkawq[address] [place] [phone] Younger DRUG SCREEN RAPID (URINE)on 10-16-2022 AMP Negative Normal NEGATIVE [facility] Comment on above: Performed By: #### C BC #### [facility] [address] [address] [address] Cortez Younger BAR Positive Abnormal NEGATIVE [facility] Comment on above: Performed By: #### C BC #### [facility] [id number] Cortez Younger BUP Negative Normal NEGATIVE [facility] Comment on above: Performed By: #### C BC #### [facility] [address] [place] [address] Dr. Cortez Younger BZO Positive Abnormal NEGATIVE [facility] Comment on above: Performed By: #### C BC #### [facility] [address] [place] [address] Dr. Cortez Younger OK Negative Normal NEGATIVE [facility] Comment on above: Performed By: #### C BC #### [facility] [address] [place] [address] Dr. Cortez Younger CUT-OFFS SEE BELOW Normal [facility] Comment on above: Result Comment: [...] ng/mL Performed By: #### C BC #### [facility] [address] [place] [address] Dr. Cortez Younger DRUG CUT HEADER DRUG CLASS TEST SYST EM CUT-OFF CONCENTRATIONS ARE FOLLOWS: Normal [facility] Comment on above: Performed By: #### C BC #### [facility] [address] [place] [address] Dr. Cortez Younger mAMP Negative Normal NEGATIVE [facility] Comment on above: Performed By: #### C BC #### [facility] [address] [place] [address] Dr. Cortez Younger MTD Negative Normal NEGATIVE [facility] Comment on above: Performed By: #### C BC #### [facility] [address] [place] [address] Dr. Cortez Younger OPI Positive Abnormal NEGATIVE [facility] Comment on above: Performed By: #### C BC #### [facility] [address] [place] [address] Dr. Cortez Younger OXY Negative Normal NEGATIVE [facility] Comment on above: Performed By: #### C BC #### [facility] [address] [place] [address] Dr. Cortez Younger PCP Negative Normal NEGATIVE [facility] Comment on above: Performed By: #### C BC #### [facility] [address] [place] [address] Dr. Cortez Younger PPX Negative Normal NEGATIVE [facility] Comment on above: Performed By: #### C BC #### [facility] [address] [place] [address] Dr. Cortez Younger TCA Negative Normal NEGATIVE [facility] Comment on above: Performed By: #### C BC #### [facility] [address] [place] [address] Dr. Cortez Younger THC Positive Abnormal NEGATIVE [facility] [facility] Comment on above: Performed By: #### C BC #### [facility] [address] [place] [address] Dr. Cortez Younger ER URINE PROFILEon 3 Bilirubin Ql (U) Negative Normal NEGATIVE [facility] Comment on above: Performed By: #### C BC #### [facility] [address] [place] [address] Dr. Cortez Younger Clarity (U) CLEAR Normal CLEAR [facility] Comment on above: Performed By: #### C BC #### [facility] [address] [place] [address] Dr. Cortez Younger Color (U) LT. YELLOW Normal YELLOW [facility] Comment on above: Performed By: #### C BC #### [facility] [address] [place] [address] Dr. Cortez PRESTON A micrscopic examina tion will be performed if indicated. Normal [facility] Comment on above: Performed By: #### C BC #### [facility] [address] [place] [address] Dr. Cortez Younger Glucose Ql (U) Negative Normal NEGATIVE [facility] Comment on above: Performed By: #### C BC #### [facility] [address] [place] [address] Dr. Cortez Youngre Hemoglobin Ql (U) Negative Normal NEGATIVE [facility] Comment on above: Performed By: #### C BC #### [facility] [address] [place] [address] Dr. Cortez Younger Ketones Ql (U) Negative Normal NEGATIVE [facility] Comment on above: Performed By: #### C BC #### [facility] [address] [place] [address] Dr. Cortez Younger LEUKOCYTES Negative Normal NEGATIVE [facility] Comment on above: Performed By: #### C BC #### [facility] [address] [place] [address] Dr. Cortez Younger Nitrite Ql (U) Negative Normal NEGATIVE [facility] Comment on above: Performed By: #### C BC #### [facility] [address] [place] [address] Dr. Cortez Younger pH (U) 7.5 [pH] Normal 5-9 [facility] Comment on above: Performed By: #### C BC #### [facility] [address] [place] [address] Dr. Cortez Younger SPEC GRAVITY <=1.005 Abnormal 1.005-<=1.025 [facility] Comment on above: Performed By: #### C BC #### [facility] [address] [place] [address] Dr. Cortez Younger UA PROTEIN Negative Normal NEGATIVE/ TRACE [facility] Comment on above: Performed By: #### C BC #### [facility] [address] [place] [address] Dr. Cortez Younger UR MICRO IND NOT INDICATED Normal [facility] Comment on above: Performed By: #### C BC #### [facility] [address] [place] [address] Dr. Cortez Younger Urobilinogen Qn (U) 0.2 {Fidelia'U}/dL Normal 0.2 - 1.0 [facility] Comment on above: Performed By: #### C BC #### [facility] [address] [address] [address] Cortez Younger NAon 10-16-2022 Sodium [Moles/Vol] 125 mmol/L Critically low 136-145 [facility] Comment on above: Performed By: #### E RUR #### [facility] [address] [address] [address] Cortez Younger POTASSIUM URINEon 10-16-2022 UR POTASSIUM 11.8 mmol/L Normal [facility] Comment on above: Performed By: #### K U ####[facility] [address] [address]Dr. Cortez Younger PROF 14(COMP METB)on 023 Albumin [Mass/Vol] 4.2 g/dL Normal 3.4-5.0 [facility] Comment on above: Performed By: #### E RUR #### [facility] [address] [place] [address] Dr. Cortez Younger Albumin/Globulin [Mass ratio] 1.3 {ratio} Normal [facility] Comment on above: Performed By: #### E RUR #### [facility] [address] [place] [address] Dr. Cortez Younger ALP [Catalytic activity/Vol] 75 U/L Normal 46-116 [facility] Comment on above: Performed By: #### E RUR #### [facility] [address] [place] [address] Dr. Cortez Younger ALT [Catalytic activity/Vol] 23 U/L Normal 16-63 [facility] Comment on above: Performed By: #### E RUR #### [facility] [address] [place] [address] Dr. Cortez Younger Anion gap [Moles/Vol] 9.7 mmol/L Normal [facility] Comment on above: Performed By: #### E RUR #### [facility] [address] [place] [address] Dr. Cortez Younger AST [Catalytic activity/Vol] 16 U/L Normal 15-37 [facility] Comment on above: Performed By: #### E RUR #### [facility] [address] [address] [address] Cortez Younger Bilirubin [Mass/Vol] 0.4 mg/dL Normal 0.2-1.0 [facility] Comment on above: Performed By: #### E RUR #### [facility] [address] [place] [address] Dr. Cortez Younger Calcium [Mass/Vol] 9.1 mg/dL Normal 8.5-10.1 [facility] Comment on above: Performed By: #### E RUR #### [facility] [address] [address] [address] Cortez Younger Chloride [Moles/Vol] 88 mmol/L Critically low 98-107 [facility] Comment on above: Performed By: #### E RUR #### [facility] [address] [place] [address] Dr. Cortez Younger CO2 [Moles/Vol] 26.5 mmol/L Normal 21.0-32.0 [facility] Comment on above: Performed By: #### E RUR #### [facility] [address] [place] [address] Dr. Cortez Younger Creatinine [Mass/Vol] 0.73 mg/dL Normal 0.70-1.30 [facility] Comment on above: Performed By: #### E RUR #### [facility] [address] [place] [address] Dr. Cortez Younger EGFR-AF YEMENI >60 Normal >=60 [facility] Comment on above: Performed By: #### E RUR #### [facility] [address] [place] [address] Dr. Cortez Younger EGFR-NON AF YEMENI >60 Normal >=60 [facility] Comment on above: Performed By: #### E RUR #### [facility] [address] [place] [address] Dr. Cortez Younger Globulin (S) [Mass/Vol] 3.2 g/dL Normal [facility] Comment on above: Performed By: #### E RUR #### [facility] [address] [address] [address] Cortez Younger Glucose [Mass/Vol] 109 mg/dL Critically high 74-106 [facility] Comment on above: Performed By: #### E RUR #### [facility] [address] [address] [address] Cortez Younger Potassium [Moles/Vol] 4.2 mmol/L Normal 3.5-5.1 [facility] Comment on above: Performed By: #### E RUR #### [facility] [address] [address] [address] Cortez Younger Protein [Mass/Vol] 7.4 g/dL Normal 6.4-8.2 [facility] Comment on above: Performed By: #### E RUR #### [facility] [address] [address] [address] Cortez Younger Sodium [Moles/Vol] 120 mmol/L Critically low 136-145 [facility] Comment on above: Performed By: #### E RUR #### [facility] [address] [address] [address] Cortez Younger Urea nitrogen [Mass/Vol] 7.0 mg/dL Normal 7.0-18.0 [facility] Comment on above: Performed By: #### E RUR #### [facility] [address] [address] [address] Cortez Younger Urea nitrogen/Creatinin e [Mass ratio] 9.6 mg/mg Normal [facility] Comment on above: Performed By: #### E RUR #### [facility] [address] [address] [address] Cortez Younger SODIUM RANDOM URINEon 2022 Sodium (U) [Moles/Vol] 26 mmol/L Critically low 30-90 [facility] Comment on above: Performed By: #### N AU ####[facility] [address] [address]Dr. Cortez Younger ACETONE SERUMon 10-07-2022 ACETONE Negative Normal NEGATIVE [facility] Comment on above: Performed By: #### E RUR #### [facility] [address] [place], [place] [address] Dr. Cortez Younger CBC AUTO DIFFon 10-07-2022 BASO # 0.1 103/ul Normal 0.0-0.1 [facility] Comment on above: Performed By: #### C BC ####[facility] [address] [id number]. Cortez Younger Basophils/100 WBC (Bld) 0.8 % Normal 0.2-2.0 [facility] Comment on above: Performed By: #### C BC ####[facility] [address] [address]Dr. Cortez Younger EO # 0.0 103/ul Normal 0.0-0.7 [facility] Comment on above: Performed By: #### C BC ####[facility] [address] [address]Dr. Cortez Younger Eosinophils/100 WBC (Bld) 0.2 % Critically low 0.9-7.0 [facility] Comment on above: Performed By: #### C BC ####[facility] [address] [address]Dr. Cortez Younger Erythrocyte distribution width (RBC) [Ratio] 12.1 % Normal 11.0-15.0 [facility] Comment on above: Performed By: #### C BC ####[facility] [address] [address]Dr. Cortez Younger Hematocrit (Bld) [Volume fraction] 42.9 % Normal 42.0-54.0 [facility] Comment on above: Performed By: #### C BC ####[facility] [address] [id number] Younger Hemoglobin (Bld) [Mass/Vol] 15.4 g/dL Normal 14.0-18.0 [facility] Comment on above: Performed By: #### C BC ####[facility] [address] [place], [place] [id number]. Cortez Youngre IG # 0.04 10e3/ul Critically high 0.00-0.03 [facility] Comment on above: Performed By: #### C BC ####[facility] [address] [id number] Eleanorvalerie Younger IG % 0.4 % Normal 0.0-0.5 [facility] Comment on above: Performed By: #### C BC ####[facility] [address] [phone] Eleanorvalerie Younger LYMPH # 1.3 103/ul Normal 1.2-3.8 [facility] Comment on above: Performed By: #### C BC ####[facility] [address] [phone] Eleanorvalerie Younger Lymphocytes/100 WBC (Bld) 13.7 % Critically low 20.5-60.0 [facility] Comment on above: Performed By: #### C BC ####[facility] [address] [address]DrFish Younger MANUAL DIFF REQ NO Normal [facility] Comment on above: Performed By: #### C BC ####[facility] [address] [phone] Cortez Aren MCH (RBC) [Entitic mass] 31.4 pg Normal 25.9-34.0 [facility] Comment on above: Performed By: #### C BC ####[facility] [address] [phone] Cortez Aren MCHC (RBC) [Mass/Vol] 35.9 g/dL Critically high 29.9-35.2 [facility] Comment on above: Performed By: #### C BC ####[facility] [address] [phone] Eleanorvalerie Younger MCV (RBC) [Entitic vol] 87.4 fL Normal 80.0-94.0 [facility] Comment on above: Performed By: #### C BC ####[facility] [address] [phone] Younger MONO # 0.4 103/ul Normal 0.3-0.8 [facility] Comment on above: Performed By: #### C BC ####[facility] [address] [phone]. Cortez Younger Monocytes/100 WBC (Bld) 3.6 % Normal 1.7-12.0 [facility] Comment on above: Performed By: #### C BC ####[facility] [address] [phone]. Cortez Younger NEUT # 7.9 103/ul Critically high 1.4-6.5 [facility] Comment on above: Performed By: #### C BC ####[facility] [address] [phone]. Cortez Younger Neutrophils/100 WBC (Bld) 81.3 % Critically high 43.0-75.0 [facility] Comment on above: Performed By: #### C BC ####[facility] [address] [phone]. Cortez Younger Platelet mean volume (Bld) [Entitic vol] 8.8 fL Critically low 9.5-13.5 [facility] Comment on above: Performed By: #### C BC ####[facility] [address] [phone]. Cortez Younger PLT 371 103/ul Normal 150-450 [facility] Comment on above: Performed By: #### C BC ####[facility] [address] [phone]. Cortez Younger RBC 4.91 106/ul Normal 4.70-6.10 [facility] Comment on above: Performed By: #### C BC ####[facility] [address] [phone]. Cortez Younger WBC 9.8 103/ul Normal 4.0-11.0 [facility] Comment on above: Performed By: #### C BC ####[facility] [address] [phone]. Cortez Younger CRPon 10-07-2022 CRP [Mass/Vol] mg/L Normal <=1.0 [facility] Comment on above: Performed By: #### L IPA, TSH, CRP, CMP ####[facility] [address] [address]Dr. Cortez Younger ER URINE PROFILEon 3 Bilirubin Ql (U) Negative Normal NEGATIVE [facility] Comment on above: Performed By: #### E RUR #### [facility] [address] [place] [address] Dr. Cortez Younger Clarity (U) CLEAR Normal CLEAR [facility] Comment on above: Performed By: #### E RUR #### [facility] [address] [place] [address] Dr. Cortez Younger Color (U) LT. YELLOW Normal YELLOW [facility] Comment on above: Performed By: #### E RUR #### [facility] [address] [place] [address] Dr. Cortez Younger ERUAHD A micrscopic examina tion will be performed if indicated. Normal [facility] Comment on above: Performed By: #### E RUR #### [facility] [address] [place] [address] Dr. Cortez Younger Glucose Ql (U) Negative Normal NEGATIVE [facility] Comment on above: Performed By: #### E RUR #### [facility] [address] [place] [address] Dr. Cortez Younger Hemoglobin Ql (U) Negative Normal NEGATIVE [facility] Comment on above: Performed By: #### E RUR #### [facility] [address] [address] [address] Cortez Younger Ketones Ql (U) Negative Normal NEGATIVE [facility] Comment on above: Performed By: #### E RUR #### [facility] [address] [place] [address] Dr. Cortez Younger LEUKOCYTES Negative Normal NEGATIVE [facility] Comment on above: Performed By: #### E RUR #### [facility] [address] [place] [address] Dr. Cortez Younger Nitrite Ql (U) Negative Normal NEGATIVE [facility] Comment on above: Performed By: #### E RUR #### [facility] [address] [address] [address] Cortez Younger pH (U) 7.5 [pH] Normal 5-9 [facility] Comment on above: Performed By: #### E RUR #### [facility] [address] [place] [address] Dr. Cortez Younger SPEC GRAVITY <=1.005 Abnormal 1.005-<=1.025 [facility] Comment on above: Performed By: #### E RUR #### [facility] [address] [place] [address] Dr. Cortez Younger UA PROTEIN Negative Normal NEGATIVE/ TRACE [facility] Comment on above: Performed By: #### E RUR #### [facility] [address] [place] [address] Dr. Cortez Younger UR MICRO IND NOT INDICATED Normal [facility] Comment on above: Performed By: #### E RUR #### [facility] [address] [place] [address] Dr. Cortez Younger Urobilinogen Qn (U) 0.2 {Fidelia'U}/dL Normal 0.2 - 1.0 [facility] Comment on above: Performed By: #### E RUR #### [facility] [address] [place] [address] Dr. Cortez Younger LACTATE/LACTIC ACIDon 2022 Lactate [Moles/Vol] 1.0 mmol/L Normal 0.4-2.0 [facility] Comment on above: Performed By: #### E RUR #### [facility] [address] [place] [address] Dr. Cortez Younger LIPASEon 10-07-2022 Lipase [Catalytic activity/Vol] 84.0 U/L Normal 73.0-393.0 [facility] Comment on above: Performed By: #### L IPA, TSH, CRP, CMP ####[facility] [address] [address]Dr. Cortez Younger PROF 14(COMP METB)on 03-28-2 023 Albumin [Mass/Vol] 3.9 g/dL Normal 3.4-5.0 [facility] Comment on above: Performed By: #### L IPA, TSH, CRP, CMP ####[facility] [address] [address]Dr. Cortez Younger Albumin/Globulin [Mass ratio] 1.7 {ratio} Normal [facility] Comment on above: Performed By: #### L IPA, TSH, CRP, CMP ####[facility] [address] [address]Dr. Cortez Younger ALP [Catalytic activity/Vol] 78 U/L Normal 46-116 [facility] Comment on above: Performed By: #### L IPA, TSH, CRP, CMP ####[facility] [address] [address]Dr. Cortez Younger ALT [Catalytic activity/Vol] 28 U/L Normal 16-63 [facility] Comment on above: Performed By: #### L IPA, TSH, CRP, CMP ####[facility] [address] [place], [place] [address]Dr. Cortez Younger Anion gap [Moles/Vol] 12.1 mmol/L Normal [facility] Comment on above: Performed By: #### L IPA, TSH, CRP, CMP ####[facility] [address] [place], [place] [address]Dr. Cortez Younger AST [Catalytic activity/Vol] 15 U/L Normal 15-37 [facility] Comment on above: Performed By: #### L IPA, TSH, CRP, CMP ####[facility] [address] [address]Dr. Cortez Younger Bilirubin [Mass/Vol] 0.5 mg/dL Normal 0.2-1.0 [facility] Comment on above: Performed By: #### L IPA, TSH, CRP, CMP ####[facility] [address] [address]Dr. Cortez Younger Calcium [Mass/Vol] 8.6 mg/dL Normal 8.5-10.1 [facility] Comment on above: Performed By: #### L IPA, TSH, CRP, CMP ####[facility] [address] [address]Dr. Cortez Younger Chloride [Moles/Vol] 100 mmol/L Normal 98-107 [facility] Comment on above: Performed By: #### L IPA, TSH, CRP, CMP ####[facility] [address] [address]Dr. Cortez Younger CO2 [Moles/Vol] 28.8 mmol/L Normal 21.0-32.0 [facility] Comment on above: Performed By: #### L IPA, TSH, CRP, CMP ####[facility] [address] [place], [place] [address]Dr. Cortez Younger Creatinine [Mass/Vol] 0.70 mg/dL Normal 0.70-1.30 [facility] Comment on above: Performed By: #### L IPA, TSH, CRP, CMP ####[facility] [address] [place], [place] [address]Dr. Cortez Younger EGFR-AF YEMENI >60 Normal >=60 [facility] Comment on above: Performed By: #### L IPA, TSH, CRP, CMP ####[facility] [address] [place], [place] [address]Dr. Cortez Younger EGFR-NON AF YEMENI >60 Normal >=60 [facility] Comment on above: Performed By: #### L IPA, TSH, CRP, CMP ####[facility] [address] [place], [place] [address]Dr. Cortez Younger Globulin (S) [Mass/Vol] 2.3 g/dL Normal [facility] Comment on above: Performed By: #### L IPA, TSH, CRP, CMP ####[facility] [address] [place], [place] [address]Dr. Cortez Younger Glucose [Mass/Vol] 111 mg/dL Critically high 74-106 [facility] Comment on above: Performed By: #### L IPA, TSH, CRP, CMP ####[facility] [address] [place], [place] [address]Dr. Cortez Younger Potassium [Moles/Vol] 3.9 mmol/L Normal 3.5-5.1 [facility] Comment on above: Performed By: #### L IPA, TSH, CRP, CMP ####[facility] [address] [address]Dr. Cortez Younger Protein [Mass/Vol] 6.2 g/dL Critically low 6.4-8.2 [facility] Comment on above: Performed By: #### L IPA, TSH, CRP, CMP ####[facility] [facility] [id number] [address]Dr. Cortez Younger Sodium [Moles/Vol] 137 mmol/L Normal 136-145 [facility] Comment on above: Performed By: #### L IPA, TSH, CRP, CMP ####[facility] [id number] [address]Dr. Cortez Younger Urea nitrogen [Mass/Vol] 6.0 mg/dL Critically low 7.0-18.0 [facility] Comment on above: Performed By: #### L IPA, TSH, CRP, CMP ####[facility] [id number] [address]Dr. Cortez Younger Urea nitrogen/Creatinin e [Mass ratio] 8.6 mg/mg Normal [facility] Comment on above: Performed By: #### L IPA, TSH, CRP, CMP ####[facility] [id number] [address]Dr. Cortez Younger SED [facility] 2022 SED RATE <1 Normal <=20 [facility] Comment on above: Performed By: #### C BC #### [facility] [address] [address] [address] Cortez Younger TSHon 10-07-2022 TSH 1.031 uIU/mL Normal 0.358-3.740 [facility] Comment on above: Performed By: #### L IPA, TSH, CRP, CMP ####[facility] [id number] [address]Dr. Cortez Younger [facility]on 05[facility]13 SARS-CoV-2 (COVID-19) RNA AXEL+probe Ql (Unsp spec) Not detected Normal NOT DETECTED [facility] Comment on above: Result Comment: When [...] for this test is supported by the [place] of Health and Human Service's declaration that [...] used). Performed By: #### C BC #### [facility] [address] [place] [address] Dr. Cortez Younger INFLUENZA A AND B AGon 05-28 INFLUANEGH SEE BELOW Normal [facility] Comment on above: Result Comment: Nega tive for Flu A protein angiten. Infection due to Flu A cannot be ruled out. Flu A angiten in the sample may be below the detection limit of the test. Performed By: #### E RUR #### [facility] [address] [place] [address] Dr. Cortez Younger INFLUBNEGH SEE BELOW Normal [facility] Comment on above: Result Comment: Nega tive for Flu B protein antigen. Infection due to Flu B cannot be ruled out. Flu B antigen in the sample may be below the detection limit of the test. Performed By: #### E RUR #### [facility] [address] [place] [address] Dr. Cortez Younger INFLUENZA A AG Negative Normal NEGATIVE SEE COMMENT [facility] Comment on above: Performed By: #### E RUR #### [facility] [address] [place] [address] Dr. Cortez Younger INFLUENZA B AG Negative Normal NEGATIVE SEE COMMENT [facility] Comment on above: Performed By: #### E RUR #### [facility] [address] [address] [address] Cortez Younger INTERNAL CONTROLS Within Normal Limits Normal Wi thin Normal Limits [facility] Comment on above: Performed By: #### E RUR #### [facility] [address] [address] [address] Cortez Younger XR CHEST 1 Von [...] KAIA SHEIKH Date: 2022-05-28 13:36 Normal [facility] PROF 14(COMP METB)on 022 Albumin [Mass/Vol] 3.9 g/dL Normal 3.4-5.0 The [facility] Comment on above: Performed By: #### C MP #### [facility] [address] [place] [address] Dr. Cortez Younger Albumin/Globulin [Mass ratio] 1.4 {ratio} Normal [facility] Comment on above: Performed By: #### C MP #### [facility] [address] [address] [address] Cortez Younger ALP [Catalytic activity/Vol] 81 U/L Normal 46-116 [facility] Comment on above: Performed By: #### C MP #### [facility] [address] [address] [address] Cortez Younger ALT [Catalytic activity/Vol] 19 U/L Normal 16-63 [facility] Comment on above: Performed By: #### C MP #### [facility] [address] [address] [address] Cortez Younger Anion gap [Moles/Vol] 12.3 mmol/L Normal [facility] Comment on above: Performed By: #### C MP #### [facility] [address] [address] [address] Cortez Younger AST [Catalytic activity/Vol] 15 U/L Normal 15-37 [facility] Comment on above: Performed By: #### C MP #### [facility] [address] [address] [address] Cortez Younger Bilirubin [Mass/Vol] 0.3 mg/dL Normal 0.2-1.0 [facility] Comment on above: Performed By: #### C MP #### [facility] [address] [address] [address] Cortez Younger Calcium [Mass/Vol] 8.6 mg/dL Normal 8.5-10.1 [facility] Comment on above: Performed By: #### C MP #### [facility] [address] [address] [address] Cortez Younger Chloride [Moles/Vol] 101 mmol/L Normal 98-107 [facility] Comment on above: Performed By: #### C MP #### [facility] [address] [address] [address] Cortez Younger CO2 [Moles/Vol] 30.6 mmol/L Normal 21.0-32.0 [facility] Comment on above: Performed By: #### C MP #### [facility] [address] [address] [address] Cortez Younger Creatinine [Mass/Vol] 0.75 mg/dL Normal 0.70-1.30 [facility] Comment on above: Performed By: #### C MP #### [facility] [address] [address] [address] Cortez Younger EGFR-AF YEMENI >60 Normal >=60 [facility] Comment on above: Performed By: #### C MP #### [facility] [address] [address] [address] Cortez Younger EGFR-NON AF YEMENI >60 Normal >=60 [facility] Comment on above: Performed By: #### C MP #### [facility] [address] [address] [address] Cortez Younger Globulin (S) [Mass/Vol] 2.8 g/dL Normal [facility] Comment on above: Performed By: #### C MP #### [facility] [address] [place] [address] Dr. Cortez Younger Glucose [Mass/Vol] 98 mg/dL Normal 74-106 [facility] Comment on above: Performed By: #### C MP #### [facility] [address] [address] [address] Cortez Younger Potassium [Moles/Vol] 3.9 mmol/L Normal 3.5-5.1 [facility] Comment on above: Performed By: #### C MP #### [facility] [address] [place] [address] Dr. Cortez Younger Protein [Mass/Vol] 6.7 g/dL Normal 6.4-8.2 [facility] Comment on above: Performed By: #### C MP #### [facility] [address] [place] [address] Dr. Cortez Younger Sodium [Moles/Vol] 140 mmol/L Normal 136-145 [facility] Comment on above: Performed By: #### C MP #### [facility] [address] [place] [address] Dr. Cortez Younger Urea nitrogen [Mass/Vol] 5.0 mg/dL Critically low 7.0-18.0 [facility] Comment on above: Performed By: #### C MP #### [facility] [address] [place] [address] Dr. Cortez Younger Urea nitrogen/Creatinin e [Mass ratio] 6.7 mg/mg Normal [facility] Comment on above: Performed By: #### C MP #### [facility] [address] [place] [address] Dr. Cortez Younger CBC AUTO DIFFon 01-18-2022 BASO # 0.0 103/ul Normal 0.0-0.1 [facility] Comment on above: Performed By: #### C BC #### [facility] [id number] Cortez Younger Basophils/100 WBC (Bld) 0.1 % Critically low 0.2-2.0 [facility] Comment on above: Performed By: #### C BC #### [facility] [address] [address] [address] Cortez Younger EO # 0.0 103/ul Normal 0.0-0.7 [facility] Comment on above: Performed By: #### C BC #### [facility] [address] [address] [address] Cortez Younger Eosinophils/100 WBC (Bld) 0.0 % Critically low 0.9-7.0 [facility] Comment on above: Performed By: #### C BC #### [facility] [address] [address] [address] Cortez Younger Erythrocyte distribution width (RBC) [Ratio] 12.8 % Normal 11.0-15.0 [facility] Comment on above: Performed By: #### C BC #### [facility] [address] [address] [address] Cortez Younger Hematocrit (Bld) [Volume fraction] 42.7 % Normal 42.0-54.0 [facility] Comment on above: Performed By: #### C BC #### [facility] [address] [address] [address] Cortez Younger Hemoglobin (Bld) [Mass/Vol] 15.3 g/dL Normal 14.0-18.0 [facility] Comment on above: Performed By: #### C BC #### [facility] [address] [address] [address] Cortez Younger IG # 0.10 10e3/ul Critically high 0.00-0.03 [facility] Comment on above: Performed By: #### C BC #### [facility] [address] [address] [address] Cortez Younger IG % 0.7 % Critically high 0.0-0.5 [facility] Comment on above: Performed By: #### C BC #### [facility] [address] [address] [address] Cortez Younger LYMPH # 1.9 103/ul Normal 1.2-3.8 [facility] Comment on above: Performed By: #### C BC #### [facility] [address] [place] [address] Dr. Cortez Younger Lymphocytes/100 WBC (Bld) 13.5 % Critically low 20.5-60.0 [facility] Comment on above: Performed By: #### C BC #### [facility] [address] [place] [address] Dr. Cortez Younger MANUAL DIFF REQ NO Normal [facility] Comment on above: Performed By: #### C BC #### [facility] [address] [place] [address] Dr. Cortez Younger MCH (RBC) [Entitic mass] 31.4 pg Normal 25.9-34.0 [facility] Comment on above: Performed By: #### C BC #### [facility] [address] [place] [address] Dr. Cortez Younger MCHC (RBC) [Mass/Vol] 35.8 g/dL Critically high 29.9-35.2 [facility] Comment on above: Performed By: #### C BC #### [facility] [address] [place] [address] Dr. Cortez Younger MCV (RBC) [Entitic vol] 87.5 fL Normal 80.0-94.0 [facility] Comment on above: Performed By: #### C BC #### [facility] [address] [place] [address] Dr. Cortez Younger MONO # 0.8 103/ul Normal 0.3-0.8 [facility] Comment on above: Performed By: #### C BC #### [facility] [address] [place] [address] Dr. Cortez Younger Monocytes/100 WBC (Bld) 5.6 % Normal 1.7-12.0 [facility] Comment on above: Performed By: #### C BC #### [facility] [address] [place], [place] [id number] Dr. Cortez Younger NEUT # 11.4 103/ul Critically high 1.4-6.5 [facility] Comment on above: Performed By: #### C BC #### [facility] [address] [place] [address] Dr. Cortez Younger Neutrophils/100 WBC (Bld) 80.1 % Critically high 43.0-75.0 [facility] Comment on above: Performed By: #### C BC #### [facility] [address] [place] [address] Dr. Cortez Younger Platelet mean volume (Bld) [Entitic vol] 8.4 fL Critically low 9.5-13.5 [facility] Comment on above: Performed By: #### C BC #### [facility] [address] [place] [address] Dr. Cortez Younger PLT 352 103/ul Normal 150-450 [facility] Comment on above: Performed By: #### C BC #### [facility] [address] [place] [address] Dr. Cortez Younger RBC 4.88 106/ul Normal 4.70-6.10 [facility] Comment on above: Performed By: #### C BC #### [facility] [address] [place] [address] Dr. Cortez Younger WBC 14.2 103/ul Critically high 4.0-11.0 [facility] Comment on above: Performed By: #### C BC #### [facility] [address] [place] [address] Dr. Cortez Younger PROF 14(COMP METB)on 022 Albumin [Mass/Vol] 4.1 g/dL Normal 3.4-5.0 [facility] Comment on above: Performed By: #### C MP #### [facility] [address] [place] [address] Dr. Cortez Younger Albumin/Globulin [Mass ratio] 1.5 {ratio} Normal [facility] Comment on above: Performed By: #### C MP #### [facility] [address] [place] [address] Dr. Cortez Younger ALP [Catalytic activity/Vol] 77 U/L Normal 46-116 [facility] Comment on above: Performed By: #### C MP #### [facility] [address] [address] [address] Cortez Younger ALT [Catalytic activity/Vol] 19 U/L Normal 16-63 [facility] Comment on above: Performed By: #### C MP #### [facility] [address] [address] [address] Cortez Younger Anion gap [Moles/Vol] 10.6 mmol/L Normal [facility] Comment on above: Performed By: #### C MP #### [facility] [address] [address] [address] Cortez Younger AST [Catalytic activity/Vol] 8 U/L Critically low 15-37 [facility] Comment on above: Performed By: #### C MP #### [facility] [address] [address] [address] Cortez Younger Bilirubin [Mass/Vol] 0.3 mg/dL Normal 0.2-1.0 [facility] Comment on above: Performed By: #### C MP #### [facility] [address] [place] [address] Dr. Cortez Younger Calcium [Mass/Vol] 8.9 mg/dL Normal 8.5-10.1 [facility] Comment on above: Performed By: #### C MP #### [facility] [address] [address] [address] Cortez Younger Chloride [Moles/Vol] 91 mmol/L Critically low 98-107 [facility] Comment on above: Performed By: #### C MP #### [facility] [address] [address] [address] Cortez Younger CO2 [Moles/Vol] 30.1 mmol/L Normal 21.0-32.0 [facility] Comment on above: Performed By: #### C MP #### [facility] [address] [address] [address] Cortez Younger Creatinine [Mass/Vol] 0.88 mg/dL Normal 0.70-1.30 [facility] Comment on above: Performed By: #### C MP #### [facility] [address] [address] [address] Cortez Younger EGFR-AF YEMENI >60 Normal >=60 [facility] Comment on above: Performed By: #### C MP #### [facility] [address] [address] [address] Cortez Younger EGFR-NON AF YEMENI >60 Normal >=60 [facility] Comment on above: Performed By: #### C MP #### [facility] [address] [address] [address] Cortez Younger Globulin (S) [Mass/Vol] 2.8 g/dL Normal [facility] Comment on above: Performed By: #### C MP #### [facility] [address] [place] [address] Dr. Cortez Younger Glucose [Mass/Vol] 112 mg/dL Critically high 74-106 [facility] Comment on above: Performed By: #### C MP #### [facility] [address] [address] [address] Cortez Younger Potassium [Moles/Vol] 3.7 mmol/L Normal 3.5-5.1 [facility] Comment on above: Performed By: #### C MP #### [facility] [address] [place] [address] Dr. Cortez Younger Protein [Mass/Vol] 6.9 g/dL Normal 6.4-8.2 [facility] Comment on above: Performed By: #### C MP #### [facility] [address] [address] [address] Cortez Younger Sodium [Moles/Vol] 128 mmol/L Critically low 136-145 [facility] Comment on above: Performed By: #### C MP #### [facility] [address] [address] [address] Cortez Younger Urea nitrogen [Mass/Vol] 9.0 mg/dL Normal 7.0-18.0 [facility] Comment on above: Performed By: #### C MP #### [facility] [address] [place] [address] Dr. Cortez Younger Urea nitrogen/Creatinin e [Mass ratio] 10.2 mg/mg Normal [facility] Comment on above: Performed By: #### C MP #### [facility] [address] [place] [address] Dr. Cortez Younger SED RATE WESTERGRENon 2021 SED RATE <1 Normal <=20 [facility] Comment on above: Performed By: #### S EDR ####[facility] [id number] [address]. Cortez Younger UA RANDOMon 01-18-2022 Bilirubin Ql (U) Negative Normal NEGATIVE [facility] Comment on above: Performed By: #### E RUR #### [facility] [address] [place] [address] Dr. Cortez Younger Clarity (U) CLEAR Normal CLEAR [facility] Comment on above: Performed By: #### E RUR #### [facility] [address] [place] [address] Dr. Cortez Younger Color (U) LT. YELLOW Normal YELLOW [facility] Comment on above: Performed By: #### E RUR #### [facility] [address] [place] [address] Dr. Cortez Younger Glucose Ql (U) Negative Normal NEGATIVE [facility] Comment on above: Performed By: #### E RUR #### [facility] [address] [place] [address] Dr. Cortez Younger Hemoglobin Ql (U) TRACE-LYSED Abnormal NEGATIVE [facility] Comment on above: Performed By: #### E RUR #### [facility] [address] [place] [address] Dr. Cortez Younger Ketones Ql (U) Negative Normal NEGATIVE [facility] Comment on above: Performed By: #### E RUR #### [facility] [address] [place] [address] Dr. Cortez Younger LEUKOCYTES TRACE Abnormal NEGATIVE [facility] Comment on above: Performed By: #### E RUR #### [facility] [address] [address] [address] Cortez Younger Nitrite Ql (U) Negative Normal NEGATIVE [facility] Comment on above: Performed By: #### E RUR #### [facility] [address] [place] [address] Dr. Cortez Younger pH (U) 6.5 [pH] Normal 5-9 [facility] Comment on above: Performed By: #### E RUR #### [facility] [address] [place] [address] Dr. Cortez Younger SPEC GRAVITY <=1.005 Abnormal 1.005-<=1.025 [facility] Comment on above: Performed By: #### E RUR #### [facility] [address] [place] [address] Dr. Cortez Younger UA PROTEIN Negative Normal NEGATIVE/ TRACE [facility] Comment on above: Performed By: #### E RUR #### [facility] [address] [place] [address] Dr. Cortez Younger Urobilinogen Qn (U) 0.2 {Fidelia'U}/dL Normal 0.2 - 1.0 [facility] Comment on above: Performed By: #### E RUR #### [facility] [address] [place] [address] Dr. Cortez Younger MRI CSPINE WO W [...] by: VERN LU Date: 2022-01-17 16:24 Normal [facility] MRI [facility] HISTORY: Multiple sclerosis COMPARISON: [...] by: VERN LU Date: 2022-01-17 16:29 Normal [facility] MRI BRAIN WO W CONon [...] by: VERN LU Date: 2022-01-03 08:03 Normal [facility] Patient Educationon 12-25-19 22 Patient Education Oncology [...] including vitamins, herbs, eye drops, creams, and ujia-qxh-jystzts medicines. This also includes: ? Medicines to [...] 08/01/2005 Document Revised: 06/11/2018 Document Reviewed: 04/05/2018 [employer] Patient Education ? 2019 [email or web address]. [facility]rology Office/Clinic Noteon 12-24-2021 [...] Urnls Dip Stick Auto w/o Microscopy POC 15039 3. Elevated PSA (R97.20: Elevated prostate specific antigen [PSA]) Most recent PSA done 08/13/21 5.24 Ordered: Urnls Dip Stick Auto w/o Microscopy POC 00674 Other obstructive and reflux uropathy (N13.8: Other obstructive and reflux uropathy) Follow-up With When Contact Information Star Manley MD, Gustavo Orlando, URO In 6 months [facility] [address], [place] [id number]- Additional Instructions: w/ [facility] Patient Education Prostate-Specific Antigen Test I, Lynda Ortega, personally scribed for Dr. Graves on 12/24/2021 [...] tab(s), Or (more content not included)... Normal [facility] Comment on above: Result Comment: Elec tronically Signed By: Star Manley MD, Gustavo Orlando\.br\Date and Time Signed: 12/24/21 10:52 EDT\.br\Electronically Co-Signed By: Lynda Ortega\.br\Date and Time Co-Signed: 12/24/21 10:47 EDT Lab Reportson 12-16-2021 Lab Reports [id number]: 127 Normal [facility] Lab Reports [id number]#[id number]: 127 Normal [facility] CULTURE URINEon 12-12-2021 CULTURE URINE Culture Observations : No growth Normal [facility] Comment on above: Performed By: #### U RCX ####[facility] [address] [address]Dr. Cortez Younger UA RANDOMon 12-12-2021 Bilirubin Ql (U) Negative Normal NEGATIVE [facility] Comment on above: Performed By: #### U A #### [facility] [address] [place] [address] Dr. Cortez Younger Clarity (U) CLEAR Normal CLEAR [facility] Comment on above: Performed By: #### U A #### [facility] [address] [place] [address] Dr. Cortez Younger Color (U) LT. YELLOW Normal YELLOW [facility] Comment on above: Performed By: #### U A #### [facility] [address] [address] [address] Cortez Younger Glucose Ql (U) Negative Normal NEGATIVE [facility] Comment on above: Performed By: #### U A #### [facility] [address] [address] [address] Cortez Younger Hemoglobin Ql (U) LARGE Abnormal NEGATIVE [facility] Comment on above: Performed By: #### U A #### [facility] [address] [place] [address] Dr. Cortez Younger Ketones Ql (U) Negative Normal NEGATIVE [facility] Comment on above: Performed By: #### U A #### [facility] [address] [address] [address] Cortez Younger LEUKOCYTES Negative Normal NEGATIVE [facility] Comment on above: Performed By: #### U A #### [facility] [address] [place] [address] Dr. Cortez Younger Nitrite Ql (U) Negative Normal NEGATIVE [facility] Comment on above: Performed By: #### U A #### [facility] [address] [address] [address] Cortez Younger pH (U) 7.0 [pH] Normal 5-9 [facility] Comment on above: Performed By: #### U A #### [facility] [address] [place] [address] Dr. Cortez Younger SPEC GRAVITY 1.010 Normal 1.005-<=1.025 [facility] Comment on above: Performed By: #### U A #### [facility] [address] [place] [address] Dr. Cortez Younger UA PROTEIN Negative Normal NEGATIVE/ TRACE [facility] Comment on above: Performed By: #### U A #### [facility] [address] [place] [address] Dr. Cortez Younger Urobilinogen Qn (U) 0.2 {Fidelia'U}/dL Normal 0.2 - 1.0 [facility] Comment on above: Performed By: #### U A #### [facility] [address] [place] [address] Dr. Cortez Younger Coding Summary.on 12-06-2021 Coding Summary. CD:[id number] Gh0b Ww+PGhlYWQ+LO2NNNRyS72co PIjmR9OX3kCOI9EIUPXSNBVV D5ROA2fpDE6WFnkE7IdlvWk JxwsfQAxYT45ETz7RLE5hIvo NTjcfT7wiKGgD3v1KsQwAD35 qZ10CBfrMVDkHpO5OdTgjuyk bWFy G5guJdPuyQPzDyp+PHRhYmxl IHdpZHRoPScxMDAlJyBzdHls NC9kDk5bGZRaPWZdrToldYSp OiBj j5hlXQUlUPvfML0jfSgnW3Hz wUA5MZMxv6q1Wf71qJT+PHRk PTM0kMviUJucu256EuRwa9vu IDM3 jOVoHLdrRUH2I07ve1S4YCPo TICkRRT5vGZ8gW5brXnlsjye K3OfpFFcKsQ3PXF7gKIkpW5p bGln zprqnC9sMtg+J00IRT1DZBDN VP8OLlc3T5LuQewqkAG+PC90 IFDvIH40bQRejTEmh6gydOc5 JzEw NOMcJXH8dXggFCmaf7LuSMEq S64tbAOia6V8YZSzrQmttZQp XaYrmVA4iD7sWBsjnibve0xq dzsn Nfkob6aexn86iM69K47uXBcz RAKfOMQ4XILgSJAkeSxwcy0b tK3yHp8+QMnvm7aan9mijKz9 IjIw ZPYnieQvpGpyKGZ4m7LrZq07 I7JafMnmj7OcUni0cs78oAMd q8G7qTQ1KNsbOGNlbJ5eMCbd ZnQ6 YVVjJxTulY96tIHwUNbdQi2k oDohlOhgLD6rGGNbuwpuFUHf cR0nWYMzbCKeiXkqCW2gOHCc bjtm e701UmIeCEN1FDRgiUFgQ1Mi yR2vCpSqOONlFDImY3QycAJu HYdtX902ILykYlF4PLGgxuVd Y2Fs NMEpaCtzGvK9m9C5Rg9Xr5Bh npxlQXU6LKdsGUO5NwU0RoAk YwK1E5VbPys1URRuzMmwCC7j J3Bh DCPsxzkrcxyppHX7QSTmOQCd eZ41tYYuSVltYl4ls7Q6k699 HDBvWJRevM54Fy1myAplEBRr dCBU mI4eagcpv4jvcrdiNzOdRSFd KKg4CUn3CBLheXkbNiPaKTW0 ZeW5CHP6vDHmlN9ooIugdpfs dG9w Oyc+C08ypC0xMJM8FFV3hknc IFNiugDdXK28TI33L5NpIpui dGFibGU+OSWjfrQoxCrdAH1v YmFj r2mee8SjODyqF6GzVVTvVNru Uvg9LZOnJXS7wIO9xB7lPPNy QCrvu7N0cES2V9MwuuVyxm9w b2xs VLExCUnaZ14isXYll2R8EXIf sEC9ZOPucXiwTgZqrQ75Lkp+ JNAszUrir8RcVvogc5ptq6jp dGg9 YsScSSUeumYbxFvqKVL3s2Nn Zd73G59cUIiiKZKdQNDvXZBq ZPPoyVobxn2toF8gXe9+PGNv bCB3 hBY3vT9nJELlCgG5XSxqP312 IwNunGFzPvtnu9iuf2orvBl5 MdEeBEGqyiMndVsrLRY4m7Pe Lz48 O36oKFdxSWUlOEUcTTXhVVEd qPcdss2idH4aVv2+XG6ri5lt tl77qR87wML+LGMjAXY4uUom PSdw GYEvqC9vPPhbOaC3WHHyOuVk mN09eSKmMWjiOo0jhWayaPpm KB3rWDHuafnns934AiDbg7gq IDEw dXYxXBnzISJ5C20qw6A4MPKd JOVdXPL0lYV4oG7puPnjfdht bGVmdDsgdmVydGljYWwtYWxp Z246 IHRvcDsnPlBhdGllbnQgTmFt EJg0J7YiItm4PUSvwBanFY7d bJExWFrgYs4atRerwHsbJC6m NTBp snapk090EwNea2neQQQmhQBy CTyjNGC3G00tv8Q7QVPzDHLk ZFS8kOM1mX6otEijcyhppWKg dDsg vnEulWovOOnfOKirS535INDc oPyiPeAjumQaUJUctZK2YN61 AX61vNIit1P0kQB8K4HlSYDa bmct ejqzkQE6FESeMBBzeR49Gu6n sUzfLo6xKRDsDHI4QDEjgFKk S1BzyJ6jVsXmBMMyLSHbR8Wo eHQt HVxzD823NEneUzC3VAHnfeFl D0SiKNTmvRujWjC4r6J8Ua4Q V6U7WH45NR53rPLom9F8zHA5 J3Bh VIFgdfsmolahuYZ3XZVzCXEe vR87Vw7zwXwiZj3bFIYfOIQ5 PQBzxYItM6ClhJ4vPlHhSRFu MDAw S3MghUChFEduV356YTdvZrU2 CALikeJhF2XlZJZjpSgvZxH7 k2N4Ov2RYPt5XZ37GA93aRZy c3R5 gWS3U3XmTFLtmfcxgtdsbKA2 MBNvLHUldE25Ka4hgFdqBj2o XQBxTNG5FOXnhOFaT2RtnG4r OiAj SZSsSGPtY3KpdCMbITyrH939 GBkqAzD3EVButbCxD7GeMEIa aMtbLzN9k5E1Xj9PUKNuCV53 IFR5 dHG2OS34ES45J1QjJzkjbUCm bGU+PHRhYmxlIHdpZHRoPScx CCDxJbZroSqyVG0jJx3zSIBp LWNv aHaknFGmHqIrt9eiEOTvINez ZG4wkZccS5KvbRL9SAKkc0b0 Dg14R85gF2EwaSF+PGNvbCB3 aWR0 nI7fYaZmKzS6FDveC160ZoMa aRPlAjebw6agf3lyjOb3QzS2 SQJxgcKwtLmoVLJ4h2YpXl88 Y29s IHdpZHRoPSIxNSUiIHZhbGln qu0ipG7fOb1+SZLnnXD9lOI4 uY8aPvNzQwB4EGibU573TrAy cCIv Fqymm8blm6ljePa5DzZaYVAe reNqyUmmOJL5q6GrQg16M4Xp pSzow8YjNgd1we01fQPxw7Q9 bGU9 E7UuXXRexipbiUYujRflNW9c SNXahkciLQNqsE9jEVJzF9j2 FmGqYuB9EBcpQ9AvilG4QNEh cHQg WFeuLNS2I07pd5D3IJDqNUYk APM1oXZ8kF1njYkdbkzqpCHf eExtvsYsmNngEObpWDpcP578 IHRv pMcgGDIjeD4sLEIouNEkwZdd EQ1sHIYvbcjoCnGPOgWJB0uO MMlxQ2TJRI9bJDnnnSJ+PHRk IHN0 dYztARzvLXHtmN2rLLTbE5b2 CxEoByU4HTndT4ZwWAAxtlyk Sv12zW2zQiVsCoM5LPlvX2No bnQ6 YYNsbFScGFfjCDR8T58if2D6 KUOzUQJbMOQ4yHD5qK1icZmn bjogbGVmdDsgdmVydGljYWwt YWxp F593BRQquAzfGgS8GcPrHoN6 Lpi3A3ZdAid9KZDwsUwpWL9r pPFaKSdsJb1ilIapmOorII6p NTBp dkpyOHIegR4aCGKnzETphShw XB2iSDNoybfqm365LdUnWVJ9 WXNydLDcC8BvhW8eJfCfCKWt MDAw L5VcaKKcFBnaA915QIemNeA3 JOInmjImJ9AtHJPxmSctNaY6 j7D2Ai16NgQJSKWvquzyzQX+ PHRk FPE7tGqyLFlvMNCgoG8eRKKg S5d2BeIeVxR7VBdmQ0VpWEJe hmfrHt79xJ6sMmFwPeC3APmm O2Zv exR8KRNqvIEwMVfmIFI1O74y c4S1WHRlJYFkGQI3hWC6nE5i bGlnbjogbGVmdDsgdmVydGlj YWwt KTqcP392FSMqbXqzTo4xxCO3 E6YeBsb7GJSnuRiyYR1yzZZs HBzqJi6hmLcdfCrxFL0sTPDc bjtw SINaoL9wQCCwaKMirThgEQ2y YTGwwnrtd623OlVnIYF5KLFt gZYuW7HsxK3lBpXmXZLoKFIj O3Rl zYPpUEkcX751YZydQkT0WYTx aqHgF9VmSCWceBhbSaL5p9Z3 Hv2BuHSgEJEmGA28GP69QB24 L3Ry PjwvdGFibGU+PHRhYmxlIHdp UZMuDKtoNPRhOcWjuVccHT8u Ye3mNGZhVMXymAohzQIfMfGa b2xs ELJyBPvlXS1ftChxU9KzwIB7 KWNqp0e2Gx95Y31wQ3NzpGJ+ GRWfiTY9uAZ7rA4hHhSwClD0 YWxp F250YpNmuCHbLeugl4lus4ta sLy1EqNaYXPbmyHnpFhnGPK9 v1TtSz65E02jWQouDBJxWGNa MCUi QTEfySpdcf0leS6aEp3+PGNv rLW3uOT0iH2xQpRpZnC6RCbx B119KxYdpICjOewmH67wN3Pd dXA+ ZCEaSwe3CVVdqArrUM5gvXNl XNkcLw4bOTV8CbScAeKgGFxu M8ZhBEGgoxgfincwtMI2DBBe MDUw vD23Zo1xoUilXx1yYSPfBMB8 PYCfmYWrE1KkbT3hEiUdAYGq VZVhV4EyiNBqGYgqP395RXzz ZnQ7 RJErwaNyG0MfDYQruPzxMjP3 u0P1Qi4ZxCdnoHVzOQ3yWqAj IUm7F0AeXvl3TJWaoArzTV9t cGFk KSrdVw7vfYgrcHhbRT6iWOMl euges693CqZzu3dvCBAimJOt LOiySMW4N62hu7O6ODUtPNDg MDA7 rGL9kY4baPuyzfnomZCsbDtn kcPryAhhPQymLFadA027TITe zWziAlPXCfr5J5NuUkh9JKHl [facility] FF5hyVHvMEnbXr3egOqnuKmb IQ7lQUPcqgjvz392PzYuo3oh MWMkkIMuPBusQJW4T34en6S8 ICMw HMYwHIN1mNO1cX7xkHjnjzxo bGVmdDsgdmVydGljYWwtYWxp S670EKKorBdySq3TYvs7I7Wq Pjx0 ZAHisRskBJ0gtYIiJDisBi7r pXtbwGszJB8yQJMrczgeo075 WzPae7huFIDvlQXsDKtyPMU6 Y29s p3P1WRXoOINsSCQ7wAS8eT8a bGlnbjogbGVmdDsgdmVydGlj IPpuWQazE368EHQqfAioNiRt eWVy OjwvdGQ+CT57nn61K5JcPief Ogh3BTOxONQ4yWR8wX1oTRKu QExjq8V6bMI1L7IfcpMtwn2u b2xs YXBz (more content not included)... Normal [facility] Consent for Procedure/Surger n 12-05-2021 Consent for Procedure/Surgery [id number] :127 [facility] Consent for Treatmenton 05-2 Consent for Treatment [id number]#1.00CD: 127 [facility] IntraOperative Documentson 0 12-05-2021 IntraOperative Documents [id number] :127 [facility] Main OR Intraoperative Recor don 12-05-2021 Main OR Intraoperative Record IntraOp Document Type FTURO Summary Primary Physician: Gustavo Graves Jr., MD Finalized Date/Time: 12/05/21 13:57:51 Pt. Name: HARISH MCKENNA Johanny Han/Sex: 1970 Male Med Rec #: [id number] Physician: Gustavo Graves Jr., MD Financial #: [id number] Pt. Type: O Room/Bed: / Admit/Disch: 12/05/21 11:48:14 - Institution: Case Times FTURO Entry 1 Patient Times In Room 12/05/21 13:23:00 Out Room 12/05/21 13:57:00 Procedure Times Start 12/05/21 13:40:00 Stop 12/05/21 13:53:00 Anesthesia Times Last Modified By: Veena Levin RN 12/05/21 13:57:47 Case Attendance FTURO Entry 1 Entry 2 Entry 3 Case Attendee Star Manley MD, Gustavo Sanders CAKE TESTER, Veena Brower CAKE TESTER, Ni Aguirre Role Performed Surgeon - Primary Scrub - Primary Scrub - Primary Time In 12/05/21 13:23:00 12/05/21 13:23:00 12/05/21 13:23:00 Time Out 12/05/21 13:57:00 12/05/21 13:57:00 12/05/21 13:57:00 Procedure CYSTOSCOPY LOCAL CYSTOSCOPY LOCAL CYSTOSCOPY LOCAL UROLIFT(.) UROLIFT(.) UROLIFT(.) Comments PRECEPTING ORIENTING Last Modified By: Ollie STEVENSON, Veena Levin RN, Veena Veena Suh RN 12/05/21 13:57:48 12/05/21 13:57:48 12/05/21 13:57:48 Entry 4 Case Attendee Veena Levin RN Role Performed Parts Salesman - Primary Time In 12/05/21 13:23:00 Time [...] Position Verified Availability Equipment, Implant, Time Out Gustavo Graves Jr., MD, Verified (If Medication Participants Marilyn TELLO, Veena Walters) Leonarda Aguirre CST, Ollie [...] Implant Implant Identification Description UROLIFT Lot Number [id number] Marketing Pr Intern NEOTRACT Catalog ?# [id number] Expiration Date 07/17/23 Usage Data Implant Site PROSTATE Quantity 4 Outcomes Met? Yes Last Modified By: eVena Levin RN 12/05/21 13:52:12 Post-Care Text: The [...] patient probl (more content not included)... Normal [facility] Main OR Preoperative Recordo n 12-05-2021 Main OR Preoperative Record Holding Area Document Type FTURO Summary Primary Physician: Gustavo Grvaes Jr., MD Finalized Date/Time: 12/05/21 13:01:06 Pt. Name: HARISH MCKENNA/Sex: 1970 Male Med Rec #: [id number] Physician: Gustavo Graves Jr., MD Financial #: [id number] Pt. Type: O Room/Bed: / Admit/Disch: 12/05/21 [...] 12:28 Veena Levin RN 12/05/21 13:01 Normal [facility] Operative Reporton Operative Report Patient: [...] procedure (10 mg diazepam, 5/325 mg of [place]), Local Anesthesia (60cc 2% Xylocaine liquid inserted [...] well and was subsequently discharged home. Normal [facility] Comment on above: Result Comment: Elec tronically Signed By: Star Manley MD, Gustavo Orlando\.amanda\Date and Time Signed: 12/05/21 13:58 EDT CBC AUTO DIFFon 12-03-2021 BASO # 0.2 103/ul Critically high 0.0-0.1 [facility] Comment on above: Performed By: #### C BC ####[facility] [address] [address]Dr. Cortez Younger Basophils/100 WBC (Bld) 1.3 % Normal 0.2-2.0 [facility] Comment on above: Performed By: #### C BC ####[facility] [address] [address]Dr. Cortez Younger EO # 0.2 103/ul Normal 0.0-0.7 [facility] Comment on above: Performed By: #### C BC ####[facility] [address] [place], [place] [address]Dr. Cortez Younger Eosinophils/100 WBC (Bld) 1.8 % Normal 0.9-7.0 [facility] Comment on above: Performed By: #### C BC ####[facility] [address] [place], [place] [address]Dr. Cortez Younger Erythrocyte distribution width (RBC) [Ratio] 13.3 % Normal 11.0-15.0 [facility] Comment on above: Performed By: #### C BC ####[facility] [address] [place], [place] [address]Dr. Cortez Younger Hematocrit (Bld) [Volume fraction] 45.0 % Normal 42.0-54.0 [facility] Comment on above: Performed By: #### C BC ####[facility] [address] [place], [place] [address]Dr. Cortez Younger Hemoglobin (Bld) [Mass/Vol] 15.6 g/dL Normal 14.0-18.0 [facility] Comment on above: Performed By: #### C BC ####[facility] [address] [place], [place] [address]Dr. Cortez Younger IG # 0.05 10e3/ul Critically high 0.00-0.03 [facility] Comment on above: Performed By: #### C BC ####[facility] [address] [place], [place] [address]Dr. Cortez Younger IG % 0.4 % Normal 0.0-0.5 [facility] Comment on above: Performed By: #### C BC ####[facility] [address] [address]DrFish Younger LYMPH # 1.8 103/ul Normal 1.2-3.8 [facility] Comment on above: Performed By: #### C BC ####[facility] [address] [address]DrFish Younger Lymphocytes/100 WBC (Bld) 15.2 % Critically low 20.5-60.0 [facility] Comment on above: Performed By: #### C BC ####[facility] [address] [place], [place] [address]DrFish Younger MANUAL DIFF REQ NO Normal [facility] Comment on above: Performed By: #### C BC ####[facility] [address] [address]DrFish Younger MCH (RBC) [Entitic mass] 31.1 pg Normal 25.9-34.0 [facility] Comment on above: Performed By: #### C BC ####[facility] [address] [place], [place] [address]DrFish Eleanorvalerie Younger MCHC (RBC) [Mass/Vol] 34.7 g/dL Normal 29.9-35.2 [facility] Comment on above: Performed By: #### C BC ####[facility] [address] [place], [place] [address]DrFish Younger MCV (RBC) [Entitic vol] 89.8 fL Normal 80.0-94.0 [facility] Comment on above: Performed By: #### C BC ####[facility] [address] [place], [place] [address]DrFish Younger MONO # 0.6 103/ul Normal 0.3-0.8 [facility] Comment on above: Performed By: #### C BC ####[facility] [address] [place], [place] [address]DrFish Younger Monocytes/100 WBC (Bld) 5.3 % Normal 1.7-12.0 [facility] Comment on above: Performed By: #### C BC ####[facility] [address] [address]DrFish Younger NEUT # 8.9 103/ul Critically high 1.4-6.5 [facility] Comment on above: Performed By: #### C BC ####[facility] [address] [address]DrFish Younger Neutrophils/100 WBC (Bld) 76.0 % Critically high 43.0-75.0 [facility] Comment on above: Performed By: #### C BC ####[facility] [address] [address]Dr. Cortez Younger Platelet mean volume (Bld) [Entitic vol] 8.9 fL Critically low 9.5-13.5 [facility] Comment on above: Performed By: #### C BC ####[facility] [address] [address]DrFish Younger PLT 414 103/ul Normal 150-450 [facility] Comment on above: Performed By: #### C BC ####[facility] [address] [id number]. Cortez Younger RBC 5.01 106/ul Normal 4.70-6.10 [facility] Comment on above: Performed By: #### C BC ####[facility] [address] [id number] Younger WBC 11.7 103/ul Critically high 4.0-11.0 [facility] Comment on above: Performed By: #### C BC ####[facility] [address] [id number]. Cortez Younger PROF 14(COMP METB)on 022 Albumin [Mass/Vol] 3.8 g/dL Normal 3.4-5.0 [facility] Comment on above: Performed By: #### C BC #### [facility] [id number] Cortez Younger Albumin/Globulin [Mass ratio] 1.3 {ratio} Normal [facility] Comment on above: Performed By: #### C BC #### [facility] [address] [place] [address] Dr. Cortez Younger ALP [Catalytic activity/Vol] 95 U/L Normal 46-116 [facility] Comment on above: Performed By: #### C BC #### [facility] [address] [place] [address] Dr. Cortez Younger ALT [Catalytic activity/Vol] 25 U/L Normal 16-63 [facility] Comment on above: Performed By: #### C BC #### [facility] [address] [place] [address] Dr. Cortez Younger Anion gap [Moles/Vol] 12.7 mmol/L Normal [facility] Comment on above: Performed By: #### C BC #### [facility] [address] [place] [address] Dr. Cortez Younger AST [Catalytic activity/Vol] 18 U/L Normal 15-37 [facility] Comment on above: Performed By: #### C BC #### [facility] [address] [place] [address] Dr. Cortez Younger Bilirubin [Mass/Vol] 0.3 mg/dL Normal 0.2-1.0 [facility] Comment on above: Performed By: #### C BC #### [facility] [address] [place] [address] Dr. Cortez Younger Calcium [Mass/Vol] mg/dL Normal 8.5-10.1 [facility] Comment on above: Performed By: #### C BC #### [facility] [address] [place] [address] Dr. Cortez Younger Chloride [Moles/Vol] 98 mmol/L Normal 98-107 [facility] Comment on above: Performed By: #### C BC #### [facility] [address] [place] [address] Dr. Cortez Younger CO2 [Moles/Vol] 28.9 mmol/L Normal 21.0-32.0 [facility] Comment on above: Performed By: #### C BC #### [facility] [address] [address] [address] Cortez Younger Creatinine [Mass/Vol] 0.84 mg/dL Normal 0.70-1.30 [facility] Comment on above: Performed By: #### C BC #### [facility] [address] [address] [address] Cortez Younger EGFR-AF YEMENI >60 Normal >=60 [facility] Comment on above: Performed By: #### C BC #### [facility] [address] [address] [address] Cortez Younger EGFR-NON AF YEMENI >60 Normal >=60 [facility] Comment on above: Performed By: #### C BC #### [facility] [address] [place] [address] Dr. Cortez Younger Globulin (S) [Mass/Vol] 3.0 g/dL Normal [facility] Comment on above: Performed By: #### C BC #### [facility] [address] [place] [address] Dr. Cortez Yougner Glucose [Mass/Vol] 104 mg/dL Normal 74-106 [facility] Comment on above: Performed By: #### C BC #### [facility] [address] [place] [address] Dr. Cortez Younger Potassium [Moles/Vol] 3.6 mmol/L Normal 3.5-5.1 [facility] Comment on above: Performed By: #### C BC #### [facility] [address] [place] [address] Dr. Cortez Younger Protein [Mass/Vol] 6.8 g/dL Normal 6.4-8.2 [facility] Comment on above: Performed By: #### C BC #### [facility] [address] [place] [address] Dr. Cortez Younger Sodium [Moles/Vol] 136 mmol/L Normal 136-145 [facility] Comment on above: Performed By: #### C BC #### [facility] [address], [place] [address] Dr. Cortez Younger Urea nitrogen [Mass/Vol] 6.0 mg/dL Critically low 7.0-18.0 [facility] Comment on above: Performed By: #### C BC #### [facility] [address], [place] [address] Dr. Cortez Younger Urea nitrogen/Creatinin e [Mass ratio] 7.1 mg/mg Normal [facility] Comment on above: Performed By: #### C BC #### [facility] [address], [place] [address] Dr. Cortez Younger Consent for Procedure/Surger yon 10-15-2021 Consent for Procedure/Surgery [id number]: 127 Normal [facility] Patient Educationon 10-15-19 22 Patient [...] these instructions at home: Medicines ? Take uuca-qwi-qyujncp and prescription medicines only as told by [...] the blood stops without treatment. ? Take urjm-fhc-cvsvedf and prescription medicines only as told by your health care provider. ? Drink enough fluid to keep your urine clear or pale yellow. This information is not intended to replace advice given to you by your health care provider. Make sure you discuss any questions you have with your health care provider. Document Released: 06/29/2006 Document Revised: 11/23/2019 Document Reviewed: 08/01/2017 [employer] Patient Education ? 2019 [employer] [facility] Urology Office/Clinic Noteon 10-14-2021 Urology [...] Gustavo Orlando, [facility] [address], [place] [address]- Additional Instructions: Patient Education Hematuria, Adult I, Jaret Benz personally scribed for Dr. Graves on 10/14/2021 13:40:09. . Documentation recorded by the markibSharonda lorenzo accurately reflects the services(s) I performed and decis (more content not included)... Normal [facility] Comment on above: Result Comment: Elec tronically Signed By: Gustavo Graves Jr., MD\.br\Date and Time Signed: 10/14/21 13:47 EDT\.br\Electronically Co-Signed By: Jaret Benz\.br\Date and Time Co-Signed: 10/14/21 13:40 EDT SURGICAL PATH REPORTon 01-25 SURGICAL PATH REPORT [facility] Department of Pathology [address] [place] [id number] Name: HARISH MCKENNA : 1970 [facility] [id number] Number: Gender: Male Location: [facility] Admit 50 years Attending CRUZITO TOMLINSON JR Age: Provider: Ordering CRUZITO TOMLINSON JR Provider: Consulting: Surgical Pathology Report ACCESSION: COLLECTED DATE/TIME: RECEIVED DATE/TIME: PATHOLOGIST: [id number] 01/23/2021 12:05 EDT 01/24/2021 12:05 EDT ALVIN CADET MD Final Diagnosis Report for [facility], [place] [facility]TR[facility], BIOPSY: - MILD CHRONIC GASTRITIS. [...] MP/ts 01/24/2021 Tissue pathology report for: [facility], [address] [facility], [place] [address]; Print Date/ 01/25/2021 12:34 EDT Number: Time: [facility] Department of Pathology [address] [place] [id number] Name: HARISH MCKENNA : 1970 [facility] [id number] Number: Gender: Male Location: [facility] Admit 50 years Attending CRUZITO TOMLINSON JR Age: Provider: Ordering CRUZITO TOMLINSON JR Provider: Consulting: Surgical Pathology Report ACCESSION: COLLECTED DATE/TIME: RECEIVED DATE/TIME: PATHOLOGIST: [id number] 01/23/2021 12:05 EDT 01/24/2021 12:05 EDT ALVIN CADET MD Gross Description PATHOLOGY SERVICES PROVIDED BY [employer] (CLIA #[id number]) in cooperation with [facility] at [address] [place] [address] (CLIA #[id number]) Microscopic Diagnosis NOTE: One or more of the reagents used to perform assays on this specimen MAY have contained components considered to be analyte specific reagents ( ASRs). ASRs have not been cleared or approved by the U.S. Food and Drug Administration. The performance characteristics of these assays have been determined by the Department of Pathology at [facility]. This assay was performed subsequent to the H and E examination. Appropriate positive and negative controls were examined with appropriate reactivity. Codes CPT CODE: 07330 + [id number] Print Date01/25/2021 12:34 EDT Number: Time: Normal [facility] Comment on above: Performed By: #### [id number] #### [facility] [address] [place] [address] Network Support Manager: Alvin Cadet MD Vital Signs Date Time Vital Sign Value Performing Clinician Facility 06-07-2024 15:45-0500 Body height 177.8 cm Reba RIGGINS Work Phone: [facility] 06-07-2024 15:45-0500 Body mass index (BMI) [Ratio] 18.94 kg/m2 Reba RIGGINS Work Phone: [facility] 06-07-2024 15:45-0500 Body weight 59.88 kg Reba Alcazar PA Work Phone: [facility] 06-07-2024 15:45-0500 Diastolic blood pressure 72 mm[Hg] Reba Alcazar PA Work Phone: [facility] 06-07-2024 15:45-0500 Heart rate 71 /min Reba Alcazar PA Work Phone: [facility] 06-07-2024 15:45-0500 Respiratory rate 16 /min Reba Alcazar PA Work Phone: [facility] 06-07-2024 15:45-0500 SaO2% (BldA) [Mass fraction] 94 % Reba RIGGINS Work Phone: [facility] 06-07-2024 15:45-0500 Systolic blood pressure 112 mm[Hg] Reba Alcazar PA Work Phone: [facility] 05-10-2024 13:14-0400 Body height 177.8 cm [facility] 05-10-2024 13:14-0400 Body mass index (BMI) [Ratio] 19.3 kg/m2 [facility] 05-10-2024 13:14-0400 Body temperature 97.2 [degF] [facility] 05-10-2024 13:14-0400 Body weight 61 kg [facility] 05-10-2024 13:14-0400 Diastolic blood pressure 72 mm[Hg] [facility] 05-10-2024 13:14-0400 Systolic blood pressure 112 mm[Hg] [facility] 04-11-2024 16:32-0400 Body height 177.8 cm Reba RIGGINS Work Phone: [facility] 04-11-2024 16:32-0400 Body mass index (BMI) [Ratio] 18.65 kg/m2 Reba Alcazar PA Work Phone: [facility] 04-11-2024 16:32-0400 Body weight 58.97 kg Reba RIGGINS Work Phone: [facility] 04-11-2024 16:32-0400 Diastolic blood pressure 78 mm[Hg] Reba Alcazar PA Work Phone: [facility] 04-11-2024 16:32-0400 Heart rate 70 /min Reba Alcazar PA Work Phone: [facility] 04-11-2024 16:32-0400 Respiratory rate 16 /min Reba Alcazar PA Work Phone: [facility] 04-11-2024 16:32-0400 SaO2% (BldA) [Mass fraction] 96 % Reba Alcazar PA Work Phone: [facility] 04-11-2024 16:32-0400 Systolic blood pressure 120 mm[Hg] Reba Alcazar PA Work Phone: [facility] 09-17-2023 14:59-0500 Body height 177.8 cm [facility] 09-17-2023 14:59-0500 Body mass index (BMI) [Ratio] 18.8 kg/m2 [facility] 09-17-2023 14:59-0500 Body temperature 98.1 [degF] [facility] 09-17-2023 14:59-0500 Body weight 59.42 kg [facility] 09-17-2023 14:59-0500 Diastolic blood pressure 45 mm[Hg] [facility] 09-17-2023 14:59-0500 Systolic blood pressure 82 mm[Hg] [facility] 03-25-2023 13:30-0400 Body height 177.8 cm Mahnaz Roth Other [facility] Other 03-25-2023 13:30-0400 Body mass index (BMI) [Ratio] 18.65 kg/m2 Mahnaz Roth Other [facility] Other 03-25-2023 13:30-0400 Body temperature 98.4 [degF] Mahnaz Roth Other [facility] Other 03-25-2023 13:30-0400 Body weight 58.97 kg Mahnaz Roth Other [facility] Other 03-25-2023 13:30-0400 Diastolic blood pressure 87 mm[Hg] Mahnaz Roth Other [facility] Other 03-25-2023 13:30-0400 Systolic blood pressure 135 mm[Hg] Mahnaz Roth Other [facility] Other 12-24-2021 09:50-0400 Blood Pressure Location Gustavo Graves Jr. [facility] 12-24-2021 09:50-0400 Diastolic blood pressure 76 mm[Hg] Gustavo Graves Jr. [facility] 12-24-2021 09:50-0400 Heart rate 68 /min Gustavo Graves Jr. [facility] 12-24-2021 09:50-0400 Systolic blood pressure 132 mm[Hg] Gustavo Graves Jr. [facility] Encounters Encounter Date Encounter Type Care Provider Facility Start: 06-07-2024 End: 06-07-2024 ambulatory REBA ALCAZAR Not Available Start: 06-07-2024 End: 06-07-2024 Office outpatient visit 25 minutes Reba RIGGINS Work Phone: [facility] [address] [facility] Comment on above: Multiple sclerosis ( CMS/HCC) (Primary Dx); Other chronic pain; Tremor; Neurogenic bladder Start: 05-30-2024 End: 05-30-2024 Refill Kenna Lockett RN Work Phone: [facility] Comment on above: Simple chronic bronc hitis (CMS/HCC) (Primary Dx); Panlobular emphysema (CMS/HCC) Start: 05-27-2024 End: 05-27-2024 Clinisync Result Encounter Generic External Data Provider [facility] External Department Unsolicited Start: 05-27-2024 End: 05-27-2024 Clinisync Result Encounter Generic External Data Provider [facility] External Department Unsolicited Start: 05-16-2024 End: 05-16-2024 Refill Kenna Lockett RN Work Phone: [facility] Comment on above: Insomnia, unspecifie d type (Primary Dx); Relapsing remitting multiple sclerosis (CMS/HCC) Start: 05-10-2024 End: 05-10-2024 ambulatory [facility] Work Phone: Start: 05-10-2024 End: 05-10-2024 Patient encounter procedure [facility] Work Phone: Start: 04-18-2024 End: 04-19-2024 Refill Elaina Burgess PA Work Phone: [facility] Comment on above: Cervical radiculopat hy; Sensory disturbance Start: 04-15-2024 End: 04-18-2024 Refill Kenna Lockett RN Work Phone: [facility] Comment on above: Venous insufficiency ; Relapsing remitting multiple sclerosis (CMS/HCC) Start: 04-14-2024 End: 04-14-2024 ambulatory [facility] Work Phone: Start: 04-14-2024 End: 04-14-2024 Patient encounter procedure [facility] Work Phone: Start: 04-11-2024 End: 04-11-2024 ambulatory REBA ALCAZAR Not Available Start: 04-11-2024 End: 04-11-2024 Office outpatient visit 25 minutes Reba RIGGINS Work Phone: [facility] [place] [facility] Comment on above: Multiple sclerosis ( CMS/HCC) (Primary Dx); Neurogenic bladder; Other chronic pain; Tremor Start: 04-04-2024 End: 04-04-2024 ambulatory BUBBA GHOTRA Not Available Start: 03-23-2024 End: 03-29-2024 Refill Elaina Burgess PA Work Phone: [facility] Comment on above: Tremor; Cervical radiculopathy Start: 03-04-2024 End: 03-04-2024 ambulatory MATY WIN [facility] Start: 01-19-2024 End: 01-19-2024 ambulatory [facility] Work Phone: Start: 01-19-2024 End: 01-19-2024 Patient encounter procedure [facility] Work Phone: Start: 12-23-2023 End: 12-23-2023 ambulatory BUBBA GHOTRA Not Available Start: 11-26-2023 End: 11-26-2023 ambulatory EDWARD J HEMEYER Not Available Start: 11-18-2023 End: 11-18-2023 ambulatory [facility] Work Phone: Start: 11-18-2023 End: 11-18-2023 Patient encounter procedure [facility] Work Phone: Start: 09-17-2023 End: 09-17-2023 Patient encounter procedure [facility] Work Phone: Start: 09-09-2023 End: 09-09-2023 ambulatory BUBBA OWENSYER Not Available Start: 08-31-2023 End: 08-31-2023 ambulatory BUBBA Chand HEMEYER Not Available Start: 08-26-2023 End: 08-29-2023 Non-patient / Non-visit [facility] Work Phone: Start: 08-21-2023 End: 08-21-2023 ambulatory Mahnaz Tuckerraw Other [facility] Other Start: 08-21-2023 Telephone encounter Mahnaz Ira [facility] Start: 07-22-2023 Telephone encounter Mahnaz [facility] Start: 07-22-2023 End: 07-22-2023 ambulatory MATY WIN [facility] Other Start: 06-24-2023 End: 06-24-2023 ambulatory Mahnaz Ira Other [facility] Other Start: 06-24-2023 Telephone encounter Mahnaz Ira [facility] Start: 05-28-2023 End: 05-28-2023 ambulatory Mahnaz Ira Other [facility] Other Start: 05-28-2023 Telephone encounter Mahnaz Ira [facility] Start: 05-19-2023 End: 05-19-2023 ambulatory Mahnaz Ira Other [facility] Other Start: 05-19-2023 Office outpatient vi sit 15 minutes Mahnaz Ira [facility] Start: 04-21-2023 End: 04-21-2023 ambulatory Mahnaz Ira Other [facility] Other Start: 04-21-2023 Office outpatient vi sit 15 minutes Mahnaz Ira [facility] Start: 04-07-2023 End: 04-07-2023 ambulatory Mahnaz Ira Other [facility] Other Start: 04-07-2023 Telephone encounter Mahnaz Ira [facility] Start: 04-02-2023 End: 04-02-2023 ambulatory Mahnaz Ira Other [facility] Other Start: 04-02-2023 Telephone encounter Mahnaz Ira [facility] Start: 04-01-2023 End: 04-01-2023 ambulatory Mahnaz Ira Other [facility] Other Start: 04-01-2023 Telephone encounter Mahnaz Ira [facility] Start: 03-25-2023 End: 03-25-2023 ambulatory Mahnaz Ira Other [facility] Other Start: 03-25-2023 Office outpatient ne w [...] ility:[facility]1 Start: 09-16-2022 ambulatory LAMAR Sheikh ty:[facility] Start: 06-26-2022 End: 06-27-[address] LISA ROMERO . Facility:[facility]1 Start: 05-28-2022 End: 05-28-2022 ambulatory ESA LARIOS . Facility:[facility]1 Start: 03-13-2022 End: [address] LISA ROMERO . Facility:[facility]1 Start: 03-08-2022 ambulatory REBA PURCELL Facility: 1 Start: 02-26-2022 End: 02-27-[address] VERN CHAMPAGNE Facility:[facility]1 Start: 01-18-2022 End: 07-19-[address] VERN CHAMPAGNE Facility:[facility]1 Start: 01-17-2022 End: 01-18-[address] NONE LISTED REQUEST Facility:H1 Start: 01-16-2022 End: 01-19-[address] DOCTOR BENNETT Facility:[facility]1 Start: 01-02-2022 End: 01-03-2022 ambulatory NONE LISTED REQUEST Facility: Start: 12-24-2021 End: 12-25-2021 ambulatory Heri MURRELL Facility:[facility] Start: 12-24-2021 End: 12-24-2021 Patient encounter procedure Gustavo Graves Jr. [facility] Start: 12-17-2021 End: 12-19-[address] DOCTOR BENNETT Facility:[facility]1 Start: 12-12-2021 End: 12-13-2021 ambulatory LAMAR TURNER Facility: Start: 12-05-2021 End: 12-06-2021 ambulatory Heri MURRELL Facility:[facility] Start: 12-05-2021 End: 12-05-2021 Patient encounter procedure Gustavo Graves Jr. [facility] Start: 12-05-2021 ambulatory Heri MURRELL Facility :[facility] Start: 12-03-2021 End: 12-04-2021 ambulatory REBA PURCELL Facility:[facility] Start: 10-14-2021 End: 10-15-2021 ambulatory Heri MURRELL Facility:[facility] Start: 09-19-2021 ambulatory Heri MURRELL Facility :[facility] Start: 12-11-2017 End: 12-12-2017 Patient encounter procedure Tunde Das Facility:[facility] Procedures Date Procedure Procedure Detail Performing [...] procedure 09/28/2024 2:20 PM EDT Office Visit [facility] [address] [place] [id number] Reba Alcazar PA [address] [place], [place] [id number] [facility] [address] [facility] Start: 07-11-2024 End: 07-11-2024 Patient encounter procedure 07/11/2024 3:30 PM EST Office Visit [facility] [address] [place] [address] Bubba Ghotra MD [address] [place] [address] (Fax) [facility] Start: 06-07-2024 End: 06-07-2024 Patient encounter procedure 06/07/2024 3:40 PM EST Office Visit [place] [facility] [address] [place] [id number] Reba Alcazar PA [address] [place] [address] [facility] [address] Start: 05-13-2024 End: 04-12-2025 Sodium [Moles/volume] in Serum or Plasma Sodium Lab Routine Multiple sclerosis (CMS/HCC) Expected: 05/13/2024 (Approximate), Expires: 04/12/2025 [facility] Work Phone: Comment on above: Expected: 05/13/2024 (Approximate), Expires: 04/12/2025 Start: 04-11-2024 End: 04-11-2024 Patient encounter procedure 04/11/2024 11:20 AM EDT Office Visit [place] [facility] [address] [place] [id number] Reba Alcazar PA [address] [place] [address] [facility] [address] Start: 04-04-2024 End: 04-04-2024 Patient encounter procedure 04/04/2024 4:30 PM EDT Office Visit [facility] [address] [facility] [address] [place] [address] Bubba Ghotra MD [address] [facility] [place] [place] [address] [facility] Start: 1970 Screening for malignant neoplasm of colon [facility] Immunizations Immunization Date Immunization Notes Care Provider Fa alexa 10-22-2020 SARS-CoV-2 (COVID-19 ) mRNA BNT-162b2 vax Gustavo Graves Jr. [facility] 10-01-2020 SARS-CoV-2 (COVID-19 ) mRNA BNT-162b2 vax Gustavo Graves [facility] Payers Date Payer Category Payer Medicaid [id number] 5 2003 Medicare [id number] 5 1970 Unknown [id number] 2.16.8 40.1.144192.3.579.2.727 1970 Unknown [id number] 2.16.8 40.1.999630.3.579.2.727 1970 Unknown [id number] 2.16.8 40.1.315507.3.579.2.727 1970 Unknown [id number] 2.16.8 40.1.186472.3.579.2.727 1970 Unknown [id number] 2.16.8 40.1.124168.3.579.2.727 1969 Unknown [id number] 2.16.84 0.1.858116.3.579.2.593 1970 Unknown [id number] 2.16.84 0.1.162481.3.579.2.593 1970 Unknown [id number] 2.16.84 0.1.538820.3.579.2.593 1969 Unknown [id number] 2.16.84 0.1.680393.3.579.2.593 1969 Unknown [id number] 2.16.84 0.1.931471.3.579.2.593 1969 Unknown [id number] 2.16.84 0.1.849318.3.579.2.593 1969 Unknown [id number] 2.16.84 0.1.637496.3.579.2.593 1969 Unknown [id number] 2.16.84 0.1.644917.3.579.2.593 1969 Unknown [id number] 2.16.84 0.1.194667.3.579.2.593 1969 Unknown [id number] 2.16.84 0.1.045737.3.579.2.593 1969 Unknown [id number] 2.16.84 0.1.496828.3.579.2.593 1969 Unknown [id number] 2.16.84 0.1.530989.3.579.2.593 1969 Unknown [id number] 2.16.84 0.1.210698.3.579.2.593 1969 Unknown [id number] 2.16.84 0.1.562852.3.579.2.593 1969 Unknown [id number] 2.16.84 0.1.781289.3.579.2.593 1970 Unknown [id number] 2.16.84 0.1.465365.3.579.2.593 1969 Unknown [id number] 2.16.84 0.1.646405.3.579.2.593 1970 Unknown [id number] 2.16.84 0.1.662787.3.579.2.593 1969 Unknown [id number] 2.16.84 0.1.949085.3.579.2.593 1969 Unknown [id number] 2.16.84 0.1.271197.3.579.2.593 1969 Unknown [id number] 2.16.8 40.1.126010.3.579.2.1286 1969 Unknown [id number] 2.16.84 0.1.789389.3.579.2.1286 1969 Unknown [id number] 2.16.84 0.1.447200.3.579.2.1259 1970 Unknown [id number] 2.16.84 0.1.575887.3.579.2.1258 1969 Unknown [id number] 2.16.84 0.1.541585.3.579.2.1258 1970 Unknown [id number] 2.16.84 0.1.531543.3.579.2.1258 1969 Unknown [id number] 2.16.84 0.1.528243.3.579.2.1258 1970 Unknown [id number] 2.16.84 0.1.389695.3.579.2.1258 1970 Unknown [id number] 2.16.84 0.1.037883.3.579.2.9 1960 Medicaid [id number] 1960 Medicare [id number] 1960 Self-pay Unknown HCAP/HFA/FAP Active [id number] Social History Date Type Detail Facility Start: 10-14-2021 End: 12-23-2023 Tobacco smoking status Ex-smoker (finding) [facility] Start: 12-01-2022 End: 01-23-2023 Sex Assigned At Male [facility] Start: 1970 Sex Assigned At Male [facility] Start: 08-18-2008 End: 08-18-2023 History of tobacco use Current smoker [facility] Start: 08-18-2008 End: 08-18-2023 History of tobacco use Cigarette Smoker [facility] Start: 01-23-2023 End: 12-23-2023 Cigarettes smoked current (pack per day) - Reported 1.5 [facility] Start: 12-23-2023 Tobacco use and exposure Smokeless tobacco non-user [facility] Start: 12-23-2023 End: 04-11-2024 Alcoholic beverage intake Lifetime non-drinker (finding) [facility] Fear of Current or Ex-Partner Not on file [facility] Within the last year , have [...] 12-24-2021 Functional Status N/A [facility] Clinical Notes 12-05-2021 to 05-16-2024 Kenna Lockett RN - 05/16/2024 10:40 AM Laurence Lockett RN - 04/15/2024 3:29 PM EDTTelephone Encounter - Nav Brunson MA - 03/23/2024 1:35 PM EDT Note Date & Type Note Facility 05-16-2024 History of Presen t illness Narrative Pt lm, requests rx for Seroquel documented in this encounter [facility] 04-15-2024 History of Presen t illness Narrative SW spoke to pt, needs rx for Spironolactone. documented in this encounter [facility] 03-23-2024 Telephone encounter Note Form atting of this note might be different from the original. Pharmacy requesting refills of primidone and lyrica. Pt last seen 07/09/2023. No appt scheduled. Would you like to fill medication. Please advise. [facility] 03-23-2024 Miscellaneous Notes Formattin g of this note might be different from the original. Pharmacy requesting refills of primidone and lyrica. Pt last seen 07/09/2023. No appt scheduled. Would you like to fill medication. Please advise. documented in this encounter [facility] 08-21-2023 Evaluation note Encounter Date Diagnosis Assessment Notes Aug, Chronic pain (ICD-10 - G89.29) OARRS reviewed, consistent with Rx. MME 60 mg/day [facility] Other 01-10-2024 Evaluation note* Encounter Date Diagnosis Assessment Notes Treatment Notes Treatment Clinical Notes Jul, Chronic pain (ICD-10 - G89.29) [facility]AR[facility] reviewed, consistent with Rx. Also has benzo prescribed by [facility] and pregabalin by neurology [facility] Other 12-13-2023 Evaluation note* Encounter Date Diagnosis Assessment Notes Treatment Notes Treatment Clinical Notes Jun, Chronic pain (ICD-10 - G89.29) [facility] Other 11-16-2023 Evaluation note* Encounter Date Diagnosis Assessment Notes Treatment Notes Treatment Clinical Notes May, Chronic pain (ICD-10 - G89.29) OARRS reviewed, consistent with Rx [facility] Other 11-07-2023 Evaluation note* Encounter Date Diagnosis [...] at bedtime instead of using PRN only [facility] Other 10-10-2023 Evaluation note* Encounter Date Diagnosis Assessment Notes Treatment Notes Treatment Clinical Notes Apr, Chronic pain (ICD-10 - G89.29) OARRS reviewed, consistent with Rx. Harish reports some relief with oxycodone 10 mg tabs, and is using med 3-4x/daily. Continue same without change. Apr, Constipation (ICD-10 - K59.00) Improved elimination with daily use of senna [facility] Other 09-26-2023 Evaluation note* Encounter Date Diagnosis [...] reported some lose stools after using routinely [facility] Other 09-20-2023 Evaluation note* Encounter Date Diagnosis Assessment Notes Treatment Notes Treatment Clinical Notes Mar, Chronic pain (ICD-10 - G89.29) OARRS reviewed, consistent with recent Rx. Increasing frequency of oxycodone to q6h PRN to improve pain control. Mar, Constipation (ICD-10 - K59.00) Harish is using Miralax daily but remains constipated, will add stimulant laxative [facility] Other 09-13-2023 Evaluation note* Encounter Date Diagnosis [...] of Constipation hand out provided to patient [facility] Other 04-06-2023 NoteCONSULTATION CONSULTATION DATE: 10/16/2022 TO: Bubab Ghotra M.D. CHIEF COMPLAINT: Includes pain in [...] 25 mg daily, Lyrica 200 mg t.i.d., Stockton 7.5 mg b.i.d. He currently uses medical [...] THC if we are to continue with Stock[place]. However, at this point, I do not [...] our patients to inform us about any gugz-nmu-hfdbnjm medications or herbal remedies/nutritional supplements/alternative remedies. 2. [...] treatment options with their primary care provider.[facility] [id number] Note CONSULTATION CONSULTATION DATE: 06/26/2022 HISTORY OF [...] Lyrica 200 mg t.i.d. per his neurologist, Stockton 7.5/325 b.i.d., Cymbalta, baclofen and Ocrevus. Patient's [...] medication changes today. He was increased to [place] 7.5/325 at his last visit, and the patient feels it is somewhat helpful. We will continue to medically manage him only. Patient will be seen in the clinic in three months' time unless otherwise indicated.[facility] [id number] NoteCONSULTATION CONSULTATION DATE: 03/13/2022 HISTORY OF PRESENT ILLNESS: This is 51-year-old gentleman, well known to the Pain Clinic, returning for a three month follow up. This gentleman has history of MS, chronic pain syndrome and diffuse neuropathic pain, which is chronically medically managed with a medication regimen. Current medications include Mobic 15 mg daily, Lyrica 200 mg t.i.d., Stock[place] 5/325 t.i.d., baclofen, Trileptal and amitriptyline. Patient recently suffered a family loss and reportedly has lost about 12 pounds in weight. He does ambulate with a cane and is stable with that. He is requesting today that we change his Stockton from t.i.d. to 7.5 b.i.d. as he [...] pain. PLAN: We will check from his Stock[place] 5/325 t.i.d. to 7.5/325 b.i.d. We will maintain his other medications with no dose or frequency change. He will be given a U-Tox in the clinic today. I did discuss vitamin importance as well as supplementing his protein intake with Boost supplements. We will see the patient in three months' time, unless otherwise indicated. Patient is in agreement to this.[facility] [id number] Hospital Discharge instructions Patient Education 12/24/2021 10:47:00 [...] including vitamins, herbs, eye drops, creams, and iadg-ael-ptixetj medicines. This also includes: ?Medicines to assist [...] 08/01/2005 Document Revised: 06/11/2018 Document Reviewed: 04/05/2018 [facility] Patient Education 2020 [email or web address]. Follow Up Care 12/05/2021 14:04:21 With:Star Manley MD, Gustavo [place], [facility] Address: [facility] [address] [place] [address]- When:Within 6 Month(s) Comments:w/ PVR [facility] 05-26-2022 Note [id number]:[id number] 12-05-2021 NoteUrolift ? Some men [...] personnel to use a Coude (pronouncedcoo-day) tipped catheter.[facility]05-26-2022 Hospital Discharge instructions Patient Education [...] [facility] [address], [place] [address]- Business (1) When:2 to 4 weeks Comments:[facility] Future Appointments Appointment Date:12/24/2021 09:30:00 AM Scheduled Provider:Gustavo Graves Jr., MD Location:[facility] Future Appointments Appointment Date:07/01/2022 10:45:00 AM Scheduled Provider:Gustavo Graves Jr., MD Location:[facility] Appointment Type:URO Office Visit [facility] evaluation noteNo [facility] [employer] Other Evaluation note* Diagnosis Onset Date Resolution Status Chronic pain acute Constipation acute penitentiary (current) use of opiate analgesic acute Multiple sclerosis acute [facility] Work Phone: Evaluation note* Diagnosis Onset Date Resolution Status Chronic pain acute Constipation acute Multiple sclerosis acute [facility] Work Phone: Evaluation note* Diagnosis Multiple [...] Constipation acute Multiple sclerosis acute [facility] Work Phone: Evaluation note* Diagnosis Insomnia, [...] bladder, NOS [facility] Diagnosis Tremor Abnormal involuntary movements Cervical radiculopathy Brachial neuritis or radiculitis nos Primary hypertension (CMS/HCC) Unspecified essential hypertension Simple chronic bronchitis (CMS/HCC) Simple chronic bronchitis Panlobular emphysema (CMS/HCC) Other emphysema Gastroesophageal reflux disease without esophagitis Esophageal reflux Mixed hyperlipidemia (CMS/HCC) Mixed hyperlipidemia Former smoker Personal history of tobacco use, presenting hazards to health Polypharmacy Issue of repeat prescriptions Underweight [facility] N[facility]ative - Reported* Type Description Date Medical History multiple sclerosis Medical History bipolar Medical History GERD Surgical History cholecystectomy [facility] Other Hospital course Narrative No data available for this section [facility] No data available for this section [facility] MemfoACT Summary Purpose Family History Relationship Condition Age [...] f/u Reason for Visit Chronic pain Constipation penitentiary (current) use of opiate analgesic Multiple sclerosis [...] section and content) DATE CREATED AUTHOR 09/18/2018 [facility] DATE CREATED AUTHOR AUTHOR'S ORGANIZ ATION 01/25/2021 [facility] DATE CREATED AUTHOR AUTHOR'S ORGANIZ ATION 09/16/2022 [facility] DATE CREATED AUTHOR AUTHOR'S ORGANIZ ATION 11/18/2022 [facility] DATE CREATED AUTHOR AUTHOR'S ORGANIZ ATION 03/06/2024 [facility] DATE CREATED AUTHOR AUTHOR'S ORGANIZ ATION 06/10/2024 [facility] dical Specialists EPIC Care Team [...] September 17, 2023 End: September 17, 2023 Moss Picker Relationship Specialty Start Date End Date Bubba Ghotra MD [address] [place] [address] (Fax) PCP - General Family Medicine 11/27/22 Bubba Ghotra MD [address] [place] [address] (Fax) PCP - ACO Reach 12/04/22 Elaina Burgess PA [address] [place] [address] Physician Certified Surgical First Assistant Neurology 12/02/23 Kenna Lockett, GRAHAM Registered Nurse Family Medicine 12/02/23 Maty Win MD [address] [place] [address] Referring Physician Behavioral Health 12/02/23 Team Status: Inactive Member Role Status Dates Bubba Ghotra MD Primary Care Provider Active Start: April 14, 2024 End: April 14, 2024 Mahnaz Roth APRN Attending Provider Active Start: April 14, 2024 End: April 14, 2024 Moss Picker Relationship Specialty Start Date End Date Bubba Ghotra MD [address] [place] [address] (Fax) PCP - General Family Medicine 11/27/22 Bubba Ghotra MD [address] [place] [address] (Fax) PCP - ACO Reach 12/04/22 Elaina Burgess PA [address] [place] [phone] Physician Certified Surgical First Assistant Neurology 12/02/23 Kenna Lockett, GRAHAM Registered Nurse Family Medicine 12/02/23 Maty Win MD [address] [place] [address] Referring Physician Behavioral Health 12/02/23 Moss Picker Relationship Specialty Start Date End Date Bubba Ghotra MD [address] [place] [address] (Fax) PCP - General Family Medicine 11/27/22 Bubba Ghotra MD [address] [place] [address] (Fax) PCP - ACO Reach 12/04/22 Elaina Burgess PA [address] [facility] [place] [address] Physician Certified Surgical First Assistant Neurology 12/02/23 Kenna Lockett, RN Registered Nurse Family Medicine 12/02/23 Maty Win MD [address] [place], [place] [phone] Referring Physician Behavioral Health 12/02/23 Team Status: Inactive Member Role Status Dates Bubba Ghotra MD Primary Care Provider Active Start: May 10, 2024 End: May 10, 2024 Mahnaz Roth APRN Attending Provider Active Start: May 10, 2024 End: May 10, 2024 Moss Picker Relationship Specialty Start Date End Date Bubba Ghotra MD [address] [place] [address] PCP - General Family Medicine 11/27/22 Bubba Ghotra MD [address] [place] [address] PCP - ACO Reach 12/04/22 Elaina Burgess PA [address] [place] [address] Physician Certified Surgical First Assistant Neurology 12/02/23 Kenna Lockett, RN Registered Nurse Family Medicine 12/02/23 Maty Win MD [address] [place], [place] [phone] Referring Physician Behavioral Health 12/02/23 Moss Picker Relationship Specialty Start Date End Date Bubba Ghotra MD [address] [place] [address] (Fax) PCP - General Family Medicine 11/27/22 Bubba Ghotra MD [address] [place] [phone] (Fax) PCP - ACO Reach 12/04/22 Elaina Burgess PA [address] [place] [phone] Physician Certified Surgical First Assistant Neurology 12/02/23 Kenna Lockett, RN Registered Nurse Family Medicine 12/02/23 Maty Win MD [address] [place], [place] [phone] Referring Physician Behavioral Health 12/02/23 Moss Picker Relationship Specialty Start Date End Date Bubba Ghotra MD [address] [place] [phone] (Fax) PCP - General Family Medicine 11/27/22 Bubba Ghotra MD [address] [place] [address] (Fax) PCP - ACO Reach 12/04/22 Elaina Burgess PA [address] [facility] [address] [place], [place] [phone] Physician Certified Surgical First Assistant Neurology 12/02/23 Kenna Lockett, GRAHAM Registered Nurse Family Medicine 12/02/23 Maty Win MD [address] [place] [place], [place] [phone] Referring Physician Behavioral Health 12/02/23 Moss Picker Relationship Specialty Start Date End Date Bubba Ghotra MD [address] [phone] (Fax) PCP - General Family Medicine 11/27/22 Bubba Ghotra MD [address] [phone] (Fax) PCP - ACO Reach 12/04/22 Elaina Burgess PA [address] [place] [address] Physician Certified Surgical First Assistant Neurology 12/02/23 Kenna Lockett, GRAHAM Registered Nurse Family Medicine 12/02/23 Maty Win MD [address] [place] [address] Referring Physician Behavioral Health 12/02/23 Moss Picker Relationship Specialty Start Date End Date Bubba Ghotra MD [address] [place] [address] (Fax) PCP - General Family Medicine 11/27/22 Bubba Ghotra MD [address] [place] [address] (Fax) PCP - ACO Reach 12/04/22 Elaina Burgess PA [address] [place] [address] Physician Certified Surgical First Assistant Neurology 12/02/23 Kenna Lockett, GRAHAM Registered Nurse Family Medicine 12/02/23 Maty Win MD [address] [place] [address] Referring Physician Behavioral Health 12/02/23 REASON FOR [...] BE BASED ON THE PRIMARY CLINICAL RECORDS. [employer] [facility]. provides no warranty or guarantee of the accuracy or completeness of information in this document.
== END 2024-06-23 14:09 | disposition home or self-care (01) ==
LOC: MRI 14:08
PROVIDERS: PCP Family Medicine; Visit Provider Physician Assistant Medical
DX: G35 Multiple sclerosis (principal)
CPT/HCPCS: 72156; 72157; A9575

== ENCOUNTER 2024-11-19 01:58 | Observation (INO) | payer MEDICARE, MEDICAID, SELFPAY ==
[2024-11-19] VITALS (95 sets, daily range): BP systolic 119–155; BP diastolic 74–122; PULSE 79–124; TEMP 36.5–37.1; O2SAT 86–100; BMI 20.8
--- OUTSIDE RECORDS SUMMARY | 2024-11-19 02:03 | XMS_ITS | CCD ---
Author Organization [facility] CliniSymn Care Team Providers Care Medical Record Consultant Name Role Phone Tunde Das Admitting Unavailable Tnude Das Attending Unavailable Bubba Ghotra Primary Care [...] Attending Unavailable RIC ., ESA Admitting Unavailable IRC ., ESA Consulting Unavailable HEMEYER ., DR PEREIRA Primary Care Unavailable KAIA SHEIKH Consulting Unavailable JAZC, DR MASON Admitting Unavailable REQUEST, DR THOMASON LISTED Primary Care UnavailABIMAEL Willis Consulting Unavailable DONALD, DR MASON Attending Unavailable JULIO ., DR VILLAGOMEZ Attending Unavailable JULIO ., DR VILLAGOMEZ Admitting Unavailable FLOWER, DR CRUZITO Schuster Consulting Unavailable HEMEYER ., DR PEREIRA Primary Care Unavailable JULIO ., DR VILLAGOMEZ Consulting Unavailable LAMAR TURNER Attending Unavailable LAMAR TURNER Admitting Unavailable YUELAMAR Consulting Unavailable HEMEYER ., DR PEREIRA Primary Care Unavailable BINHREBA Attending Unavailable BINH, REBA Admitting Unavailable BINH, REBA Consulting Unavailable HEMEYER ., DR PEREIRA Primary Care Unavailable LAKSHMIPATHY ., NARENDRANRAMIRO Attending Maureen vailable LAKSHMIPATHY ., NARENDRANATH Admitting [...] ., NARENDRANATH Admitting Maureen vailable LAKSHMIPATHY ., CARITO Consulting Maureen vailable HEMEYER ., DR PEREIRA Primary Care Unavailable REBA PURCELL Attending Unavailable REBA PURCELL Admitting Unavailable HEMEYER ., DR PEREIRA Primary Care Unavailable BENEDICT, DR PORRAS Consulting Unavailable BENEDICT, DR PORRAS Attending Unavailable BENEDICT, DR PORRAS Admitting Unavailable ZIEBER, DR VERN Ortiz Consulting Unavailable LOWE, ELAINA Consulting Unavailable BENEDICT, DR PORRAS Attending Unavailable [...] PEREIRA Primary Care Unavailable Mahnaz Roth Unavailable Bubba Ghotra MD Primary Care Provider Bubba Ghotra MD Unavailable Elaina Payton Unavailable Kenna Lockett RN Unavailable [phone] Maty Win MD Unavailable Bubba Ghotra MD Primary Care Provider [phone] Bubba Ghotra MD Unavailable [phone] Bubba Ghotra MD Primary Care Provider [phone] Bubba Ghotra MD Unavailable Bubba Ghotra MD Unavailable MATY WIN Attending Unavailable MATY WIN Attending Unavailable Maty Win MD Unavailable BUBBA GHOTRA Attending Unavailable BUBBA GHOTRA Attending Unavailable BUBBA GHOTRA Attending Unavailable BUBBA GHOTRA Attending Unavailable REBA POSADA Attending Unavailable BUBBA GHOTRA Attending Unavailable BUBBA GHOTRA Attending Unavailable REBA POSADA Attending Unavailable REBA POSADA Attending Unavailable BUBBA GHOTRA Attending Unavailable Allergies Allergy Classification Reported Allergen(s) Allergy Type Date of Onset Reaction(s) Facility (19 sources) PARoxetine; Translations: [paroxetine] Drug Allergy 4 Mild (qualifier value) [facility] (2 sources) PARoxetine Drug Allergy 3 [facility] (12 sources) venlafaxine Drug Allergy 3 Unknown [facility] (20 sources) venlafaxine Drug Allergy 3 Unknown Reaction [facility] (20 sources) PARoxetine Drug Allergy 2 Rash [facility] Medications Current Medications Medication Drug Class(es) Dates Sig (Normalized) Sig (Original) albuterol 0.83 mg/ml inhalation solution (20 sources) beta2-Adrenergic Agonist Start: 03-15-2024 End: 10-01-2024 albuterol (2.5 MG/3ML) 0.083% nebulizer solution Indications: Simple chronic bronchitis (CMS/HCC) Take 3 mL (2.5 mg) by nebulization every 6 (six) hours if needed for wheezing 360 mL 3 04/06/2024 Active Start: 03-12-2017 End: 02-15-2020 take 2.5 mg by inhalation every four to six hours as needed Albuterol Sulfate 2.5 mg /3 mL (0.083 %) Solution For Nebulization Discontinued 2.5 MG INHALATION EVERY 4-6 HOURS as needed for Bronchospasm March 12, 2017 12:00am February 15, 2020 [...] as needed Inhalation every 4 hrs Active Albuterol Sulfate 90 mcg/actuation Hfa Aerosol Inhaler (2 sources) Start: 03-12-2017 take 1 puff(s) by inhalation every four hours as needed for wheezing Albuterol Sulfate 90 mcg/actuation Hfa Aerosol Inhaler Active 1 - 2 PUFF INHALATION Every 4 hours as needed for Shortness Of Breath Or Wheezing March 12, 2017 12:00am Start: 03-12-2017 take 1 puff(s) by in halation every four hours as needed for wheezing Albuterol Sulfate 90 mcg/actuation Hfa Aerosol Inhaler Active 1 - 2 PUFF INHALATION Every 4 hours as needed for Shortness Of Breath Or Wheezing March 11, 2017 11:00pm amitriptyline hydrochloride 50 mg oral tablet (8 sources) Tricyclic Antidepressant Start: 08-06-2021 take 1 tablet by mouth once daily at bedtime amitriptyline 50 mg Tab 50 mg = 1 tab(s), Oral, Once a day (at bedtime), # 30 tab(s), Refills(s) 0 Start Date: 08/06/21 Status: Ordered Start: 03-12-2017 End: 02-15-2020 take 1 tablet by mouth once daily at bedtime Amitriptyline 10 mg Tablet Discontinued 10 MG PO Daily at bedtime March 12, 2017 12:00am February 15, 2020 9:57am ARIPiprazole 5 mg oral tablet (20 sources) Atypical Antipsychotic Start: 03-04-2024 take 1 tablet by mouth once daily ARIPiprazole (Abilify) 5 MG tablet Take 5 mg by mouth Daily 03/04/2024 Active Start: 03-04-2024 take 2 tablets by mo uth in the morning ARIPiprazole (Abilify) 2 MG tablet Take 4 mg by mouth in the morning. 03/04/2024 Active baclofen 20 mg oral tablet (20 sources) gamma-Aminobutyric Acid-ergic Agonist Start: 10-18-2024 End: 01-16-2025 take 1 tablet by mouth in the morning, then take 1 tablet by mouth in the evening, then take 1 tablet by mouth at bedtime baclofen (Lioresal) 20 MG tablet Indications: Muscle spasm TAKE 1 TABLET (20 MG) BY MOUTH IN THE MORNING AND 1 TABLET (20 MG) IN THE EVENING AND 1 TABLET (20 MG) BEFORE BEDTIME. 90 tablet 2 10/18/2024 01/16/2025 Active Start: 07-21-2024 End: 08-20-2024 take 1 tablet by mouth in the morning, then take 1 tablet by mouth in the evening, then take 1 tablet by mouth at bedtime baclofen (Lioresal) 20 MG tablet Indications: Muscle spasm Take 1 tablet (20 mg) by mouth in the morning and 1 tablet (20 mg) in the evening and 1 tablet (20 mg) before bedtime. 90 tablet 2 07/21/2024 Active Start: 07-11-2024 End: 07-21-2024 take 2 tablets by mouth in the morning baclofen (Lioresal) 20 MG tablet Indications: Muscle spasm Take 2 tablets (40 mg) by mouth in the morning and 2 tablets (40 mg) before bedtime. 07/11/2024 07/21/2024 Discontinued Start: 06-20-2024 End: 07-11-2024 take 1 tablet by mouth three times daily baclofen (Lioresal) 20 MG tablet Indications: Muscle spasm TAKE ONE TABLET BY MOUTH THREE TIMES A DAY 90 tablet 06/20/2024 07/11/2024 Discontinued Start: 05-24-2024 take 1 tablet by rachel th three [...] Date: 08/06/21 Status: Ordered Start: 03-12-2017 take 1 tablet by rachel th three times daily Baclofen 10 mg Tablet Active 10 MG PO Three times daily March 12, 2017 12:00am Baclofen 10 MG a s directed Orally qid Active 60 actuat budesonide 0.16 mg/actuat / formoterol fumarate 0.0045 mg/actuat metered dose inhaler (20 sources) Corticosteroid, beta2-Adrenergic Agonist Start: 01-25-2024 End: 11-22-2024 take 2 puff(s) by inhalation in the morning budesonide-formoterol (Symbicort) 160-4.5 MCG/ACT inhaler Indications: Simple chronic bronchitis (CMS/HCC) Inhale 2 puffs in the morning and 2 puffs before bedtime. 1 each 4 08/24/2024 11/22/2024 Active busPIRone hydrochloride 7.5 mg oral tablet (16 sources) Start: 09-10-2023 take 1 tablet by mouth twice daily Buspirone 7.5 mg tablet Active 1 TAB PO Twice daily September 10, 2023 1:00am FreeTextSi tablet Orally Twice a day; Note: Source Status: Taking; Provider: Ira Joya ( ) take 1 tablet by rachel th every twelve hours busPIRone HCl 7.5 MG 1 tablet Orally Twi ce a day Active Cannabinoids (medical cannabis) (20 sources) take 1 dose by mouth once daily as needed Cannabinoids (medical cannabis) Take 1 each by mouth Daily as needed. Active cefuroxime 500 mg oral tablet (2 sources) Cephalosporin Antibacterial Start: 11-02-19 End: 11-09-19 take 1 tablet by mouth in the morning cefuroxime (Ceftin) 500 MG tablet Indications: COPD with acute exacerbation (CMS/HCC) Take 1 tablet (500 mg) by mouth in the morning and 1 tablet (500 mg) before bedtime. Do all this for 7 days. 14 tablet 11/01/2024 11/08/2024 Active ciprofloxacin 500 mg oral tablet (1 source) Quinolone Antimicrobial Start: 12-03-19 take 1 tablet by mouth twice daily Cipro 500 mg Tab 500 mg = 1 tab(s), Oral, BID, Start medication 3 days prior to procedure., # 14 tab(s), Refills(s) 0, Pharmacy: [facility]/pharmacy #[id number], 178, cm, 10/14/21 12:57:00 EDT, Height/Length Dosing, 65.8, kg, 10/14/21 12:57:00 EDT, Weight Dosing Start Date: 12/02/21 Status: Ordered clonazePAM 0.5 mg oral tablet (20 sources) Benzodiazepine Start: 09-10-19 take 1 tablet by mouth once daily Clonazepam 0.5 mg tablet Active 0.5 MG PO Daily September 10, [...] Refills(s) 0 Start Date: 08/31/19 Status: Ordered diclofenac sodium 50 mg delayed [...] Ordered docusate sodium 100 mg oral capsule (20 sources) Start: 02-10-2024 take 2 capsules by mouth once daily Docusate Sodium (DSS) 100 MG capsule Take 2 capsules by mouth Daily 02/10/2024 Active Start: 02-10-2024 End: 02-10-2024 take 1 capsule by mouth once daily as needed for constipation Docusate Sodium 100 mg capsule Active 100 MG PO Daily as needed for constipation February 10, 2024 5:15pm Cymbalta (20 sources) [...] day Active famotidine 20 mg oral tablet (6 sources) Histamine-2 Receptor Antagonist Start: 02-15-2020 take 1 tablet by mouth once daily before mealtime Famotidine (Pepcid Ac) 20 mg Tablet Active 20 MG PO Daily February 15, 2020 12:00am HYDROcodone bitartrate 7.5 mg / ibuprofen 200 mg oral tablet (2 sources) Opioid Agonist, Nonsteroidal Anti-inflammatory Drug Start: 08-06-2021 take 1 tablet by mouth three times daily for pain hydrocodone-ibupr ofen 7.5 mg-200 mg Oral Tab 1 tab(s), Oral, TID for pain, Refill(s) 0 Start Date: 08/06/21 Status: Ordered ipratropium bromide 0.042 mg/actuat metered dose nasal spray (16 sources) Anticholinergic Start: 06-24-2024 End: 08-24-2025 take 2 spray(s) nasal route in the morning ipratropium (Atrovent) 0.06 % nasal spray Indications: Rhinorrhea Administer 2 sprays into each nostril in the morning and 2 sprays before bedtime. 30 mL 4 08/24/2024 08/24/2025 Active losartan potassium 100 mg oral tablet (20 sources) Angiotensin 2 Receptor Karen Start: 03-28-2024 End: 04-18-2025 take 1 tablet by mouth once daily losartan (Cozaar) 100 MG tablet Indications: Primary hypertension (CMS/HCC) Take 1 tablet (100 mg) by mouth Daily 90 tablet 1 10/20/2024 04/18/2025 Active Start: 10-14-2021 take 1 tablet by mouth once da rao losartan 100 mg Tab 100 mg = 1 tab(s), Oral, Daily Start Date: 10/14/21 Status: Ordered meclizine hydrochloride 25 mg oral tablet (20 sources) Antiemetic Start: 09-10-2023 take 1 tablet by mouth every twelve hours as needed Meclizine 25 mg tablet Active 25 MG PO Every 12 hours [...] oral tablet (20 sources) beta-Adrenergic Karen Start: 03-28-2024 End: 04-18-2025 take 1.5 tablets by mouth in the morning metoprolol tartrate (Lopressor) 50 MG tablet Indications: Hypertension Take 1.5 tablets (75 mg) by mouth in the morning and 1.5 tablets (75 mg) before bedtime. 270 tablet 1 10/20/2024 04/18/2025 Active Start: 12-05-2021 take 1 tablet by [...] Ordered naloxone hydrochloride 40 mg/ml nasal spray (20 sources) Opioid Antagonist naloxone (Narc an) 4 mg/0.1 mL nasal spray Administer 4 mg into affected nostril(s) if needed for opioid reversal. Active Nebulizers (Compressor/Nebulizer) misc (20 sources) Start: 09-15-2023 Nebulizers (Compressor/Nebulizer) misc Indications: Chronic hypoxemic respiratory failure (CMS/HCC) , Simple chronic bronchitis (CMS/HCC) , Wheezing , Panlobular emphysema (CMS/HCC) Use 4 times per day regularly and every 4 hours as needed for shortness of breath and wheezing as directed 1 each 09/15/2023 Active 10 ml ocrelizumab 30 mg/ml injection (20 sources) Start: 09-10-2023 Ocrelizumab 30 mg/mL solution Active MG IV September 10, 2023 1:00am FreeTextSig: as directed Intravenous As Directed; Note: Source Status: Taking; Provider: Ira Joya ( ) Start: 09-10-2023 Ocrelizumab Ac tive MG IV [...] tablet (20 sources) Serotonin-3 Receptor Antagonist Start: 08-24-2024 take 1 tablet by mouth every eight hours as needed for nausea and nausea and nausea ondansetron ODT (Zofran-ODT) 4 MG disintegrating tablet Indications: Nausea Take 1 tablet (4 mg) by mouth every 8 (eight) hours if needed for nausea 20 tablet 08/24/2024 Active Start: 11-13-2022 take 1 tablet by rachel every eight hours as needed for nausea ondansetron ODT (Zofran-ODT) 4 MG disintegrating tablet Take 4 mg by mouth every 8 (eight) hours if needed for nausea. 11/13/2022 Active Start: 02-15-2020 take 1 tablet by rachel three times daily as needed for nausea Ondansetron Hcl (Zofran) 4 mg Tablet Active 4 MG PO Three times daily as needed for Nausea February 15, 2020 12:00am take 1 tablet by rachel every twenty-four hours Ondansetron HCl 4 MG 1 tablet Orally Once a day Active OXcarbazepine 300 mg oral tablet (20 sources) Anti-epileptic Agent Start: 12-28-2023 End: 08-20-2024 take 1 tablet by mouth at bedtime OXcarbazepine (Trileptal) 300 MG tablet Indications: Sensory disturbance Take 1 tablet (300 mg) by mouth at bedtime 30 tablet 2 07/21/2024 Active Start: 08-06-2021 take 2 tablets by mo [facility] twice daily Trileptal 300 mg Tab 600 mg = 2 tab(s), Oral, BID, # 120 tab(s), Refills(s) 0 Start Date: 08/06/21 Status: Ordered Start: 02-15-2020 take 1 tablet by rachel twice daily Oxcarbazepine (Trileptal) 600 mg Tablet Active 600 MG PO Twice daily February 15, 2020 12:00am take 1 tablet by rachel every twelve hours OXcarbazepine 300 MG 1 tablet Orally Twice a day Active oxyCODONE hydrochloride 15 mg oral tablet (20 sources) Opioid Agonist Start: 10-26-2024 End: 11-07-2024 take 1 tablet by mouth every four to six hours Oxycodone 15 mg tablet Active 15 MG PO EVERY 4-6 HOURS 75 15 November 07, 2024 Start: 10-10-2024 End: 10-10-2024 take 1 tablet by mouth every four to six hours Oxycodone 15 mg tablet Discontinued 15 MG PO EVERY 4-6 HOURS 75 October 10, 2024 October 10, 2024 1:48pm Start: 08-09-2024 End: 10-26-2024 take 1 tablet by mouth every four to six hours Oxycodone 15 mg tablet Discontinued 15 MG PO EVERY 4-6 HOURS 75 15 October 10, 2024 October 26, 2024 8:43am Start: 04-01-2023 End: 08-30-2024 take 1 tablet by mouth every four to six hours Oxycodone 10 mg tablet Discontinued 10 MG PO EVERY 4-6 HOURS 150 February 10, 2024 March 16, 2024 4:35pm Start: 03-25-2023 take 1 tablet by rachel th every eight hours oxyCODONE HCl 10 MG 1 tablet as needed Orally TID for 10 days G89.4 palliative care prescribing Mar, Active Start: 03-12-2017 End: 02-15-2020 take 1 tablet by mouth every four to six hours as needed for pain Oxycodone 15 mg Tablet Discontinued 15 MG PO EVERY 4-6 HOURS as needed for Pain March 12, 2017 12:00am February 15, 2020 9:58am Oxygen (20 sources) Start: 09-15-2023 oxygen (O2) [...] sources) Proton Pump Inhibitor Start: 09-10-2023 End: 01-07-2025 take 1 tablet by mouth twice daily Pantoprazole 40 mg tablet,delayed release (DR/EC) Active 40 MG PO Twice daily September 10, 2023 1:00am FreeTextSi tablet Orally TWICE A DAY; Note: Source Status: Taking; Refills: 11; Provider: Imelda Orlando Start: 08-06-2021 take 1 mg by mouth twice daily pantoprazole 40 mg Oral EC Tab mg tab(s), Oral, BID, Refills(s) 0 Start Date: 08/06/21 Status: Ordered Start: 02-04-2021 take 1 tablet by rachel every twelve hours Pantoprazole Sodium 40 MG 1 tablet Orally TWICE A DAY for 30 days Jan, Active predniSONE 10 mg oral tablet (20 sources) Start: 04-11-2024 End: 07-11-2024 take 3 tablets by mouth once daily, [...] daily for 3 days 18 tablet 04/11/2024 07/11/2024 Discontinued (Therapy completed) Start: 09-10-2023 predniSONE (De ltasone) 10 MG tablet Indications: COPD with acute exacerbation (CMS/HCC) Every 2 day tapering dose; 5,5,4,4,3,3,2,2,1,1,0.5,0.5 31 tablet 11/01/2024 Active prednisone 10 mg as directed Orally as directed PRN Active pregabalin 200 mg oral capsule (20 sources) Start: 09-10-2023 End: 01-16-2025 take 1 capsule by mouth in the morning, then take 1 capsule by mouth in the evening, then take 1 capsule by mouth at bedtime pregabalin (Lyrica) 200 MG capsule Indications: Cervical radiculopathy TAKE 1 CAPSULE (200 MG) BY MOUTH IN THE MORNING AND 1 CAPSULE (200 MG) IN THE EVENING AND 1 CAPSULE (200 MG) BEFORE BEDTIME. 90 capsule 2 10/18/2024 01/16/2025 Active Start: 08-06-2021 take 1 capsule by mo [facility] three times daily Lyrica 200 mg Cap 200 mg = 1 cap(s), Oral, TID, Refills(s) 0 Start Date: 08/06/21 Status: Ordered take 1 capsule by mo [facility] once daily at bedtime Pregabalin 200 MG 1 capsule 1 to 3 hours before bedtime Orally Once a day Active primidone 50 mg oral tablet (20 sources) Anti-epileptic Agent Start: 10-18-2024 End: 01-16-2025 take 2 tablets by mouth at bedtime primidone (Mysoline) 50 MG tablet Indications: Tremor TAKE 2 TABLETS (100 MG) BY MOUTH AT BEDTIME 60 tablet 2 10/18/2024 01/16/2025 Active Start: 07-21-2024 End: 08-20-2024 take 2 tablets by mouth at bedtime primidone (Mysoline) 50 MG tablet Indications: Tremor Take 2 tablets (100 mg) by mouth at bedtime 60 tablet 2 07/21/2024 Active Start: 09-10-2023 End: 07-21-2024 take 1 tablet by mouth once daily Primidone 50 mg tablet Active 50 MG PO Daily September 10, [...] tablet Orally Once a day Active QUEtiapine 100 mg oral tablet (20 sources) Atypical Antipsychotic Start: 10-24-2024 End: 04-22-2025 take 0.5-1 tablets by mouth every four hours at bedtime QUEtiapine (SEROquel) 100 MG tablet Indications: Insomnia, unspecified type Take 0.5-1 tablets (50-100 mg) by mouth at bedtime May repeat in about 4 hours upon awakening 90 tablet 1 10/24/2024 04/22/2025 Active Start: 01-08-2024 End: 02-20-2025 take 1-2 tablets by mouth every four hours at bedtime QUEtiapine (SEROquel) 50 MG tablet Indications: Insomnia, unspecified type Take 1-2 tablets (50-100 mg) by mouth at bedtime May repeat in about 4 hours upon awakening 180 tablet 1 08/24/2024 10/24/2024 Discontinued (Reorder) Start: 08-06-2021 take 2 tablets by mo [...] 2; Qty: 120 Tablet; Provider: Ira Chaudhry Sennosides 8.6 mg tablet (8 sources) Start: 07-20-2024 take 1-2 tablets by mouth twice daily Sennosides 8.6 mg tablet Active 0 PO Twice daily 120 July 20, 2024 3:33pm 1-2 tabs orally twice daily; Start: 07-20-2024 take 1-2 tablets by mouth twice daily Sennosides 8.6 mg tablet Active 0 PO Twice daily 120 July 20, 2024 2:33pm 1-2 tabs orally twice daily; Start: 02-10-2024 End: 07-20-2024 take 1-2 tablets by mouth twice daily Sennosides 8.6 mg tablet Discontinued 0 PO Twice daily 120 February 10, 2024 5:15pm July 20, 2024 3:33pm 1-2 tabs orally twice daily; Start: 02-10-2024 End: 07-20-2024 take 1-2 tablets by mouth twice daily Sennosides 8.6 mg tablet Discontinued 0 PO Twice daily 120 February 10, 2024 4:15pm July 20, 2024 2:33pm 1-2 tabs orally twice daily; Start: 02-10-2024 End: 02-10-2024 take 1-2 tablets by mouth twice daily Sennosides 8.6 mg tablet Discontinued 0 PO Twice daily 120 February 10, 2024 4:51pm February 10, 2024 5:15pm 1-2 tabs orally twice daily; Start: 02-10-2024 End: 02-10-2024 take 1-2 tablets by mouth twice daily Sennosides 8.6 mg tablet Discontinued 0 PO Twice daily 120 February 10, 2024 3:51pm February 10, 2024 4:15pm 1-2 tabs orally twice daily; Start: 09-10-2023 End: 02-10-2024 take 2 tablets by mouth twice daily as needed Sennosides 8.6 mg tablet Discontinued MG PO September 10, 2023 1:00am February 10, 2024 4:55pm FreeTextSi tabs as needed Orally BID; Note: Source Status: Taking; Refills: 2; Qty: 120 Tablet; Provider: Ira Chaudhry Start: 09-10-2023 End: 02-10-2024 take 2 tablets by mouth twice daily as needed Sennosides 8.6 mg tablet Discontinued MG PO September 10, 2023 12:00am February 10, 2024 3:55pm FreeTextSi tabs as needed Orally BID; Note: Source Status: Taking; Refills: 2; Qty: 120 Tablet; Provider: Ira Chaudhry sennosides, half-way 8.6 mg oral tablet (20 sources) Start: 04-02-2023 take 2 tablets by mouth twice daily as needed for constipation senna (Senokot) 8.6 MG tablet Indications: Constipation Take 2 tablets by mouth 2 (two) times a day as needed for constipation 04/02/2023 Active sildenafil 100 mg oral tablet (6 sources) Phosphodiesterase 5 Inhibitor Start: 09-27-2024 End: 12-26-2024 take 1 tablet by mouth once daily as needed sildenafil (Viagra) 100 MG tablet Indications: Vasculogenic erectile dysfunction, unspecified vasculogenic erectile dysfunction type Take 1 tablet (100 mg) by mouth Daily as needed for erectile dysfunction 10 tablet 3 09/27/2024 12/26/2024 Active sodium chloride 9 mg/ml inhalation solution (20 sources) Start: 08-24-2024 sodium chloride 0.9 % nebulizer solution Indications: Panlobular emphysema (CMS/HCC) Take 3 mL by nebulization every 4 (four) hours if needed for shortness of breath (and muus clearance) 600 mL 1 08/24/2024 Active Start: 04-26-2024 sodium chlorid e 0.9 % nebulizer solution Indications: Panlobular emphysema (CMS/HCC) Take 3 mL by nebulization every 4 (four) hours if needed for shortness of breath (and muus clearance) 600 mL 04/26/2024 Active Start: 11-05-2023 End: 04-04-2024 sodium chloride 0.9 % nebuli zer solution Indications: Panlobular emphysema (CMS/HCC) Take 3 mL by nebulization every 4 (four) hours if needed for shortness of breath (and muus clearance) 600 mL 04/06/2024 Active spironolactone 50 mg oral tablet (20 sources) Aldosterone Antagonist Start: 07-11-2024 End: 01-07-2025 take 1 tablet by mouth once daily spironolactone (Aldactone) 50 MG tablet Indications: Venous insufficiency Take 1 tablet (50 mg) by mouth Daily 90 tablet 1 07/11/2024 01/07/2025 Active Start: 11-26-2023 End: 10-15-2024 take 1 tablet by mouth once daily spironolactone (Aldactone) 25 MG tablet Indications: Venous insufficiency Take 1 tablet (25 mg) by mouth Daily 90 tablet 1 04/18/2024 07/11/2024 Discontinued (Reorder) Completed/Discontinued Medications Medication Drug Class(es) Dates Sig (Normalized) Sig (Original) diazePAM 5 mg oral tablet (16 sources) Benzodiazepine Start: 06-22-2024 End: 08-30-2024 diazePAM (Valium) 5 MG tablet Indications: Multiple sclerosis (CMS/HCC) Take 1 tablet (5 mg) by mouth 1 time for 1 dose To take 30 minutes 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, 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 a drivers' 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 1 tablet 06/22/2024 08/30/2024 Discontinued (Therapy completed) Start: 10-14-2021 Valium 10 mg T ab 10 mg = 1 tab(s), Oral, Once, Take 1/2 hour prior to procedure, # 1 tab(s), Refills(s) 0, Pharmacy: [facility]/pharmacy #[id number], 178, cm, 10/14/21 12:57:00 EDT, Height/Length Dosing, 65.8, kg, 10/14/21 12:57:00 EDT, Weight Dosing Start Date: 10/14/21 Status: Ordered Start: 03-12-2017 End: 09-10-2023 take 0.5 mg by mouth three times daily as needed for anxiety Diazepam (Valium) 2 mg Tablet Discontinued 0.5 MG PO Three times daily as needed for Anxiety March 12, 2017 12:00am September 10, 2023 4:04pm 72 hr fentaNYL 0.05 mg/hr transdermal system (6 sources) Opioid Agonist Start: 03-12-2017 End: 02-15-2020 Fentanyl 50 mcg/hr Patch 72 Hour Discontinued 1 PATCH TRANSDERML Q72H March 12, 2017 12:00am February 15, 2020 9:58am gabapentin 300 mg oral capsule (6 sources) Anti-epileptic Agent Start: 03-12-2017 End: 02-15-2020 take 1 capsule by mouth twice daily Gabapentin (Neurontin) 300 mg Capsule Discontinued 300 MG PO Twice daily March 12, 2017 12:00am February 15, 2020 9:58am 15 ml natalizumab 20 mg/ml injection (6 sources) Integrin Receptor Antagonist Start: 03-12-2017 End: 02-15-2020 Natalizumab (Tysabri) 300 mg/15 mL Solution Discontinued 300 MG IV EVERY 4 WEEKS March 12, 2017 12:00am February 15, 2020 9:58am oxybutynin chloride 5 mg oral tablet (6 sources) Cholinergic Muscarinic Antagonist Start: 02-15-2020 End: 05-10-2024 take 1 tablet by mouth twice daily Oxybutynin Chloride 5 mg Tablet Discontinued 5 MG PO Twice daily February 15, 2020 12:00am May 10, 2024 2:21pm promethazine hydrochloride 25 mg oral tablet (20 sources) Phenothiazine Start: 03-12-2017 End: 02-15-2020 take 1 tablet by mouth every six hours as needed for nausea and vomiting Promethazine 25 mg Tablet Discontinued 25 MG PO Q6H as needed for Nausea And Vomiting March 12, 2017 12:00am February 15, 2020 9:58am Promethazine HCl PRN Active raNITIdine 150 mg oral tablet (6 sources) Histamine-2 Receptor Antagonist Start: 03-12-2017 End: 02-15-2020 take 1 tablet by mouth once daily at bedtime Ranitidine Hcl 150 mg Tablet Discontinued 150 MG PO Daily at bedtime March 12, 2017 12:00am February 15, 2020 9:58am sucralfate 1000 mg oral tablet (6 sources) Aluminum Complex Start: 03-12-2017 End: 02-15-2020 take 1 tablet by mouth four times daily Sucralfate (Carafate) 1 gram Tablet Discontinued 1 GM PO Four times daily March 12, 2017 12:00am February 15, 2020 9:59am tamsulosin hydrochloride 0.4 mg oral capsule (7 sources) alpha-Adrenergic Karen Start: 02-15-2020 End: 05-10-2024 take 1 capsule by mouth once daily Tamsulosin (Flomax) 0.4 mg Capsule Discontinued 0.4 MG PO Daily February 15, 2020 12:00am May 10, 2024 2:21pm traMADol hydrochloride 50 mg oral tablet (6 sources) Opioid Agonist Start: 02-15-2020 End: 09-10-2023 take 1 tablet by mouth twice daily Tramadol 50 mg Tablet Discontinued 50 MG PO Twice daily February [...] 2 08-31-2019 Chronic Disorders of lipid metabolism (20 sources) Hyperlipidemia; Translations: [Mixed hyperlipidemia] Onset: 3 08-31-2019 Chronic Esophageal disorders (20 sources) Gastroesophageal reflux disease; Translations: [Gastro-esophageal reflux disease without esophagitis] Onset: 3 12-01-2022 Chronic Essential hypertension (20 sources) Essential (primary) hypertension; Translations: [Essential hypertension] [...] sources) Weakness; Translations: [WEAKNESS] Onset: 3 Episodic Miscellaneous mental health disorders (2 sources) Primary insomnia; Translations: [Primary insomnia] 07-04-2024 Chronic Mood disorders (20 sources) Depressive disorder; Translations: [Recurrent major depression in partial remission] Onset: 2 08-31-2019 Chronic Multiple sclerosis (20 sources) Multiple sclerosis; Translations: [Multiple sclerosis] Onset: 3 09-21-2019 Chronic Comment on above: Aug 2000 Nausea and vomiting (15 sources) Nausea with vomiting, unspecified; Translations: [Nausea] Onset: 3 Episodic Nutritional deficiencies (20 sources) Moderate protein energy malnutrition; Translations: [Moderate protein-calorie malnutrition] Onset: 4 09-15-2023 Chronic Other aftercare (1 source) Other correction (current) drug therapy; Translations: [[employer] CURRENT DRUG THERAPY] Onset: 3 Episodic Other aftercare (10 sources) Seen by palliative care physician; Translations: [Encounter for palliative care] Episodic Other aftercare (1 source) Encounter for palliative care Episodic Other aftercare (6 sources) Long-term current use of drug therapy; Translations: [USP (current) use of opiate analgesic] 09-10-2023 Episodic Other aftercare (1 source) USP (current) use of opiate analgesic; Translations: [Long-term (current) use of other medications] 09-17-2023 Episodic Other aftercare (20 sources) Polypharmacy ; Translations: [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] Onset: 1 12-01-2022 Episodic Other connective tissue disease (4 sources) Spasm; Translations: [Other muscle spasm] 07-11-2024 Episodic Other connective tissue disease (2 sources) Bursitis of olecranon of right elbow; Translations: [Olecranon bursitis, right elbow] 11-02-2024 Episodic Other diseases of bladder and urethra (4 sources) Neurogenic bladder; Translations: [Neuromuscular dysfunction of bladder, unspecified] 04-12-2024 Chronic Other diseases of kidney and ureters (1 source) Urinary tract obstruction; Translations: [Other obstructive and reflux uropathy] Onset: 2 Episodic Other gastrointestinal disorders (16 sources) Constipation; Translations: [Constipation, unspecified] 09-17-2023 Episodic Other gastrointestinal disorders (9 sources) Constipation, unspecified; Translations: [Constipation, unspecified] Episodic Other male genital disorders (20 sources) Secondary erectile dysfunction; Translations: [Male erectile [...] 2 05-10-2024 Chronic Other nervous system disorders (20 sources) Chronic pain; Translations: [Other chronic pain] 09-17-2023 Chronic Other nervous system disorders (20 sources) Difficulty walking; Translations: [Difficulty in walking, not elsewhere classified] Onset: 3 12-01-2022 Chronic Other nervous system disorders (20 sources) Chronic pain syndrome; Translations: [Chronic pain syndrome] Onset: 4 05-10-2024 Chronic Other nervous system disorders (1 source) Paresthesia of skin; Translations: [PARESTHESIA OF SKIN] Onset: 3 Episodic Other nervous system disorders (8 sources) Tremor; Translations: [Tremor, unspecified] 04-12-2024 Episodic Other nervous system disorders (3 sources) Sensory disorder; Translations: [Unspecified disturbances of skin sensation] 04-18-2024 Episodic Other non-traumatic joint disorders (2 sources) Swelling of ankle joint; Translations: [Effusion, right ankle] 11-02-2024 Episodic Other screening for suspected conditions (not mental disorders or infectious disease) (3 sources) Raised prostate specific antigen; Translations: [Elevated prostate specific antigen [PSA]] Onset: 2 10-14-2021 Episodic Other upper respiratory disease (1 source) Nasal discharge; Translations: [Other specified disorders of nose and nasal sinuses] 06-24-2024 Episodic Residual codes; unclassified (2 sources) Family history of malignant neoplasm of urinary bladder 08-31-2019 Episodic Residual codes; unclassified (1 source) Procedure and treatment not carried out because of patient's decision for other reasons; Translations: [PROC AND TX NOT CARRIED OUT PT OT RSN] Onset: 3 Episodic Respiratory failure; insufficiency; arrest (adult) (20 sources) Chronic hypoxemic respiratory failure; Translations: [Chronic respiratory failure with hypoxia] Onset: 4 09-14-2023 Chronic Spondylosis; intervertebral disc disorders; other back problems (4 sources) Cervical radiculopathy; Translations: [Radiculopathy, cervical region] 04-18-2024 Episodic Substance-related disorders (20 sources) Nicotine dependence, cigarettes, uncomplicated; Translations: [Substance abuse] Onset: 3 Resolved: 4 12-01-2022 Chronic Substance-related disorders (20 sources) Marijuana user; Translations: [Cannabis use, unspecified, [...] Episodic/Chronic Conditions associated with dizziness or vertigo (20 sources) Vertigo of central origin; Translations: [Vertigo of central origin] Onset: 12-01-2022 12-01-2022 Episodic Gastritis and duodenitis (20 sources) Gastritis; Translations: [Gastritis, unspecified, without bleeding] Onset: 12-01-2022 12-01-2022 Episodic Genitourinary symptoms and ill-defined conditions (13 sources) Dysuria; Translations: [Increased frequency of urination] Onset: 12-12-2021 08-31-2019 Episodic Mood disorders (20 sources) Mood disorders Onset: 12-23-2023 12-23-2023 Other connective tissue disease (20 sources) Muscle weakness; Translations: [Muscle weakness (generalized)] Onset: 12-01-2022 12-01-2022 Episodic Other diseases of veins and lymphatics (20 sources) Vascular insufficiency; Translations: [Venous insufficiency (chronic) (peripheral)] Onset: 11-27-2023 11-27-2023 Episodic Other disorders of stomach and duodenum (20 sources) Cyclical vomiting syndrome; Translations: [Cyclical vomiting syndrome unrelated to migraine] Onset: 12-01-2022 12-01-2022 Episodic Other lower respiratory disease (1 source) Shortness of breath; Translations: [SHORTNESS OF BREATH] Onset: 05-30-2022 Episodic Other nervous system disorders (20 sources) Abnormal gait; Translations: [Unsteadiness on feet] Onset: 12-01-2022 12-01-2022 Episodic Other nutritional; endocrine; and metabolic disorders (20 sources) Underweight; Translations: [Underweight] Onset: 12-01-2022 12-01-2022 Episodic Pneumonia (except that caused by tuberculosis or sexually transmitted disease) (1 source) Pneumonia, unspecified organism; Translations: [PNEUMONIA UNSPECIFIED ORGANISM] Onset: 05-30-2022 Episodic Residual codes; unclassified (20 sources) Insomnia; Translations: [Insomnia, unspecified] Onset: 12-01-2022 12-01-2022 Episodic Screening and history of mental health and substance abuse codes (20 sources) Ex-smoker; Translations: [Personal history of nicotine dependence] Onset: 12-23-2023 Resolved: 04-05-2024 08-31-2019 Episodic Unclassified (1 source) COUGH, UNSPECIFIED; Translations: [COUGH, UNSPECIFIED] Onset: 05-28-2022 Results Test Name Value Interpretation Reference Range Facility ALL SODIUMon 05-27-2024 Sodium [Moles/Vol] 144 mmol/L 136 - 145 mmol/L [facility] ALL CBC WITH AUTO DIFFon BASOPHILS ABSOLUTE AUTO 0.1 [facility] Basophils/100 WBC (Bld) 1.9 % 0.2 - 2.0 % [facility] Eosinophils/100 WBC (Bld) 1.6 % 0.9 - 7.0 % [facility] Erythrocyte distribution width (RBC) [Ratio] 13.2 % 11.0 - 15.0 % [facility] Hematocrit (Bld) [Volume fraction] 41.1 % Low 42.0 - 54.0 % [facility] Hemoglobin (Bld) [Mass/Vol] 13.9 g/dL Low 14.0 - 18.0 g/dL [facility] IMMATURE GRANULOCYTES ABS AUTO 0.03 [facility] Immature granulocytes/100 WBC (Bld) 0.4 % 0.0 - 0.5 % [facility] Interpretation and review of laboratory results Abnormal [facility] LYMPHOCYTES ABSOLUTE AUTO 1.7 [facility] Lymphocytes/100 WBC (Bld) 22.8 % 20.5 - 60.0 % [facility] MCH (RBC) [Entitic mass] 29.8 pg 25.9 - 34.0 pg [facility] MCHC (RBC) [Mass/Vol] 33.8 g/dL 29.9 - 35.2 g/dL [facility] MCV (RBC) [Entitic vol] 88.2 fL 80.0 - 94.0 fL [facility] MONOCYTES ABSOLUTE AUTO 0.5 [facility] Monocytes/100 WBC (Bld) 6.2 % 1.7 - 12.0 % [facility] NEUTROPHILS ABSOLUTE AUTO 5.0 [facility] Neutrophils/100 WBC (Bld) 67.1 % 43.0 - 75.0 % [facility] Platelet mean volume (Bld) [Entitic vol] 9.3 fL Low 9.5 - 13.5 fL [facility] TBH EO # 0.1 [facility] PLT 382 [facility] RBC 4.66 Low [facility] WBC 7.4 [facility] AMYLASEon 11-13-2022 Amylase [Catalytic activity/Vol] 37 U/L Normal 25-115 [facility] Comment on above: Performed By: #### A MY, CMP, LIPA ####[facility] [address] [address]Dr. Cortez Younger CBC AUTO DIFFon 11-13-2022 BASO # 0.1 103/ul Normal 0.0-0.1 [facility] Comment on above: Performed By: #### C BC #### [facility] [address] [address] [address] Cortez Younegr Basophils/100 WBC (Bld) 1.3 % Normal 0.2-2.0 [facility] Comment on above: Performed By: #### C BC #### [facility] [address] [address] [address] Cortez Younger EO # 0.1 103/ul Normal 0.0-0.7 [facility] Comment on above: Performed By: #### C BC #### [facility] [address] [address] [address] Cortez Younger Eosinophils/100 WBC (Bld) 0.9 % Normal 0.9-7.0 [facility] Comment on above: Performed By: #### C BC #### [facility] [address] [address] [address] Cortez Younger Erythrocyte distribution width (RBC) [Ratio] 12.5 % Normal 11.0-15.0 [facility] Comment on above: Performed By: #### C BC #### [facility] [address] [place] [address] Dr. Cortez Younger Hematocrit (Bld) [Volume fraction] 42.3 % Normal 42.0-54.0 [facility] Comment on above: Performed By: #### C BC #### [facility] [address] [place] [address] Dr. Cortez Younger Hemoglobin (Bld) [Mass/Vol] 15.1 g/dL Normal 14.0-18.0 [facility] Comment on above: Performed By: #### C BC #### [facility] [address] [place] [address] Dr. Cortez Younger IG # 0.04 10e3/ul Critically high 0.00-0.03 [facility] Comment on above: Performed By: #### C BC #### [facility] [address] [place] [address] Dr. Cortez Younger IG % 0.6 % Critically high 0.0-0.[address] [facility] Comment on above: Performed By: #### C BC #### [facility] [address] [place] [address] Dr. Cortez Younger LYMPH # 1.4 103/ul Normal 1.2-3.8 [facility] Comment on above: Performed By: #### C BC #### [facility] [address] [place] [address] Dr. Cortez Younger Lymphocytes/100 WBC (Bld) 20.7 % Normal 20.5-60.0 [facility] Comment on above: Performed By: #### C BC #### [facility] [address] [place] [address] Dr. Cortez Younger MANUAL DIFF REQ NO Normal [facility] Comment on above: Performed By: #### C BC #### [facility] [address] [place] [address] Dr. Cortez Younger MCH (RBC) [Entitic mass] 31.6 pg Normal 25.9-34.0 [facility] Comment on above: Performed By: #### C BC #### [facility] [address] [place] [address] Dr. Cortez Younger MCHC (RBC) [Mass/Vol] 35.7 g/dL Critically high 29.9-35.2 [facility] Comment on above: Performed By: #### C BC #### [facility] [address] [place] [address] Dr. Cortez Younger MCV (RBC) [Entitic vol] 88.5 fL Normal 80.0-94.0 [facility] Comment on above: Performed By: #### C BC #### [facility] [address] [place] [address] Dr. Cortez Younger MONO # 0.5 103/ul Normal 0.3-0.8 [facility] Comment on above: Performed By: #### C BC #### [facility] [address] [place] [address] Dr. Cortez Younger Monocytes/100 WBC (Bld) 7.7 % Normal 1.7-12.0 [facility] Comment on above: Performed By: #### C BC #### [facility] [address] [place] [address] Dr. Cortez Younger NEUT # 4.8 103/ul Normal 1.4-6.5 [facility] Comment on above: Performed By: #### C BC #### [facility] [address] [place] [address] Dr. Cortez Younger Neutrophils/100 WBC (Bld) 68.8 % Normal 43.0-75.0 [facility] Comment on above: Performed By: #### C BC #### [facility] [address] [place] [address] Dr. Cortez Younger Platelet mean volume (Bld) [Entitic vol] 9.0 fL Critically low 9.5-13.5 [facility] Comment on above: Performed By: #### C BC #### [facility] [address] [place] [address] Dr. Cortez Younger PLT 384 103/ul Normal 150-450 [facility] Comment on above: Performed By: #### C BC #### [facility] [address] [place] [address] Dr. Cortez Younger RBC 4.78 106/ul Normal 4.70-6.10 [facility] Comment on above: Performed By: #### C BC #### [facility] [address] [address] [address] Cortez Younger WBC 7.0 103/ul Normal 4.0-11.0 [facility] Comment on above: Performed By: #### C BC #### [facility] [address] [address] [address] Cortez Younger ER URINE PROFILEon 3 Bilirubin Ql (U) Negative Normal NEGATIVE [facility] Comment on above: Performed By: #### E RUR ####[facility] [address] [place], [place] [address]Dr. Cortez Younger Clarity (U) CLEAR Normal CLEAR [facility] Comment on above: Performed By: #### E RUR ####[facility] [address] [place], [place] [address]Dr. Cortez Younger Color (U) LT. YELLOW Normal YELLOW [facility] Comment on above: Performed By: #### E RUR ####[facility] [address] [place], [place] [address]Dr. Cortez Younger ERUAHD A micrscopic examina tion will be performed if indicated. Normal [facility] Comment on above: Performed By: #### E RUR ####[facility] [address] [address]Dr. Cortez Younger Glucose Ql (U) Negative Normal NEGATIVE [facility] Comment on above: Performed By: #### E RUR ####[facility] [address] [place], [place] [address]Dr. Cortez Younger Hemoglobin Ql (U) Negative Normal NEGATIVE [facility] Comment on above: Performed By: #### E RUR ####[facility] [address] [address]Dr. Cortez Younger Ketones Ql (U) Negative Normal NEGATIVE [facility] Comment on above: Performed By: #### E RUR ####[facility] [address] [address]Dr. Cortez Younger LEUKOCYTES Negative Normal NEGATIVE [facility] Comment on above: Performed By: #### E RUR ####[facility] [address] [address]Dr. Cortez Younger Nitrite Ql (U) Negative Normal NEGATIVE [facility] Comment on above: Performed By: #### E RUR ####[facility] [address] [place], [place] [address]Dr. Cortez Younger pH (U) 7.5 [pH] Normal 5-9 [facility] Comment on above: Performed By: #### E RUR ####[facility] [address] [place], [place] [address]Dr. Cortez Younger SPEC GRAVITY <=1.005 Abnormal 1.005-<=1.[address] [facility] Comment on above: Performed By: #### E RUR ####[facility] [address] [place], [place] [address]Dr. Cortez Younger UA PROTEIN Negative Normal NEGATIVE/ TRACE [facility] Comment on above: Performed By: #### E RUR ####[facility] [address] [place], [place] [address]Dr. Cortez Younger UR MICRO IND NOT INDICATED Normal [facility] Comment on above: Performed By: #### E RUR ####[facility] [address] [place], [place] [address]Dr. Cortez Yonuger Urobilinogen Qn (U) 0.2 {Fidelia'U}/dL Normal 0.2 - 1.0 [facility] Comment on above: Performed By: #### E RUR ####[facility] [address] [place], [place] [address]Dr. Cortez Younger LIPASEon 11-13-2022 Lipase [Catalytic activity/Vol] 111.0 U/L Normal 73.0-393.0 [facility] Comment on above: Performed By: #### A MY, CMP, LIPA ####[facility] [address] [address]Dr. Cortez Younger PROF 14(COMP METB)on 023 Albumin [Mass/Vol] 3.9 g/dL Normal 3.4-5.0 [facility] Comment on above: Performed By: #### A MY, CMP, LIPA ####[facility] [address] [address]Dr. Cortez Younger Albumin/Globulin [Mass ratio] 1.4 {ratio} Normal [facility] Comment on above: Performed By: #### A MY, CMP, LIPA ####[facility] [address] [address]Dr. Cortez Younger ALP [Catalytic activity/Vol] 70 U/L Normal 46-116 [facility] Comment on above: Performed By: #### A MY, CMP, LIPA ####[facility] [address] [address]Dr. Cortez Younger ALT [Catalytic activity/Vol] 24 U/L Normal 16-63 [facility] Comment on above: Performed By: #### A MY, CMP, LIPA ####[facility] [address] [address]Dr. Cortez Younger Anion gap [Moles/Vol] 9.8 mmol/L Normal [facility] Comment on above: Performed By: #### A MY, CMP, LIPA ####[facility] [address] [address]Dr. Cortez Younger AST [Catalytic activity/Vol] 12 U/L Critically low 15-37 [facility] Comment on above: Performed By: #### A MY, CMP, LIPA ####[facility] [address] [address]Dr. Cortez Younger Bilirubin [Mass/Vol] 0.3 mg/dL Normal 0.2-1.0 [facility] Comment on above: Performed By: #### A MY, CMP, LIPA ####[facility] [address] [address]Dr. Cortez Younger Calcium [Mass/Vol] 9.2 mg/dL Normal 8.5-10.[address] [facility] Comment on above: Performed By: #### A MY, CMP, LIPA ####[facility] [address] [address]Dr. Cortez Younger Chloride [Moles/Vol] 98 mmol/L Normal 98-107 [facility] Comment on above: Performed By: #### A MY, CMP, LIPA ####[facility] [address] [place], [place] [address]Dr. Cortez Younger CO2 [Moles/Vol] 28.7 mmol/L Normal 21.0-32.0 [facility] Comment on above: Performed By: #### A MY, CMP, LIPA ####[facility] [address] [place], [place] [address]Dr. Cortez Younger Creatinine [Mass/Vol] 0.88 mg/dL Normal 0.70-1.30 [facility] Comment on above: Performed By: #### A MY, CMP, LIPA ####[facility] [address] [place], [place] [address]Dr. Cortez Younger EGFR-AF STATELESS >60 Normal >=60 [facility] Comment on above: Performed By: #### A MY, CMP, LIPA ####[facility] [address] [place], [place] [address]Dr. Cortez Younger EGFR-NON AF STATELESS >60 Normal >=60 [facility] Comment on above: Performed By: #### A MY, CMP, LIPA ####[facility] [address] [place], [place] [address]Dr. Cortez Younger Globulin (S) [Mass/Vol] 2.7 g/dL Normal [facility] Comment on above: Performed By: #### A MY, CMP, LIPA ####[facility] [address] [place], [place] [address]Dr. Cortez Younger Glucose [Mass/Vol] 105 mg/dL Normal 74-[address] [facility] Comment on above: Performed By: #### A MY, CMP, LIPA ####[facility] [address] [place] [address]Dr. Cortez Younger Potassium [Moles/Vol] 3.5 mmol/L Normal 3.5-5.1 [facility] Comment on above: Performed By: #### A MY, CMP, LIPA ####[facility] [address] [address]Dr. Cortez Younger Protein [Mass/Vol] 6.6 g/dL Normal 6.4-8.2 [facility] Comment on above: Performed By: #### A MY, CMP, LIPA ####[facility] [address] [address]Dr. Cortez Younger Sodium [Moles/Vol] 133 mmol/L Critically low 136-145 [facility] Comment on above: Performed By: #### A MY, CMP, LIPA ####[facility] [address] [address]Dr. Cortez Younger Urea nitrogen [Mass/Vol] 4.0 mg/dL Critically low 7.0-18.0 [facility] Comment on above: Performed By: #### A MY, CMP, LIPA ####[facility] [address] [address]Dr. Cortez Younger Urea nitrogen/Creatinin e [Mass ratio] 4.5 mg/mg Normal [facility] Comment on above: Performed By: #### A MY, CMP, LIPA ####[facility] [address] [address]Dr. Cortez Yuonger XR ABD FLAT UP_PA Farideh 11-13 XR [...] by: CRUZITO CRENSHAW Date: 2022-11-13 13:22 Normal [facility] FREE T4on 10-31-2022 Free T4 [Mass/Vol] 1.03 ng/dL Normal 0.76-1.46 [facility] Comment on above: Performed By: #### E RUR #### [facility] [address] [place] [address] Dr. Cortez Younger LIPID PROFILEon 10-31-2022 CHOL-HDL RATIO NORM SEE BELOW Normal [facility] Comment on above: Result Comment: 3.3 - 4.4 LOW RISK 4.4 - 7.1 AVERAGE RISK 7.1 - 11.0 MODERATE RISK >11.0 HIGH RISK Performed By: #### E RUR #### [facility] [address] [place] [address] Dr. Cortez Younger Cholesterol [Mass/Vol] 165 mg/dL Normal <=200 [facility] Comment on above: Performed By: #### E RUR #### [facility] [address] [place] [address] Dr. Cortez Younger Cholesterol in HDL [Mass/Vol] 59 mg/dL Normal 40-60 [facility] Comment on above: Performed By: #### E RUR #### [facility] [address] [place] [address] Dr. Cortez Younger Cholesterol in LDL [Mass/Vol] 83.8 mg/dL Normal [facility] Comment on above: Performed By: #### E RUR #### [facility] [address] [place] [address] Dr. Cortez Younger Cholesterol.total/ Cholesterol in HDL [Mass ratio] 2.8 {ratio} Normal [facility] Comment on above: Performed By: #### E RUR #### [facility] [address] [place] [address] Dr. Cortez Younger HDL NORMAL > or = 60 mg/dl - LO W CARDIOVASCULAR RISK <40 mg/dl - HIGH CARDIOVASCULAR RISK Normal [facility] Comment on above: Performed By: #### E RUR #### [facility] [address] [place] [address] Dr. Cortez Younger LDL CALC NORMAL SEE BELOW Normal [facility] Comment on above: Result Comment: <100 mg/dl OPTIMAL 100 - 129 mg/dl NEAR OR ABOVE OPTIMAL 130 - 159 mg/dl BORDERLINE HIGH 160 - 189 mg/dl HIGH >190 mg/dl VERY HIGH Performed By: #### E RUR #### [facility] [address] [place], [place] [address] Dr. Cortez Younger Triglyceride [Mass/Vol] 111 mg/dL Normal <=150 [facility] Comment on above: Performed By: #### E RUR #### [facility] [address] [place], [place] [address] Dr. Cortez Younger VLDL CALC 22.2 mg/dL Normal [facility] Comment on above: Performed By: #### E RUR #### [facility] [address] [place], [place] [address] Dr. Cortez Younger MRI BRAIN WO W [...] VERN LU Date: 2022-10-31 13:12 Normal [facility] PROF 14(COMP METB)on 023 Albumin [Mass/Vol] 4.0 g/dL Normal 3.4-5.[address] [facility] Comment on above: Performed By: #### C MP ####[facility] [address] [place] [address]Dr. Cortez Younger Albumin/Globulin [Mass ratio] 1.3 {ratio} Normal [facility] Comment on above: Performed By: #### C MP ####[facility] [address] [place] [address]Dr. Cortez Younger ALP [Catalytic activity/Vol] 66 U/L Normal 46-116 [facility] Comment on above: Performed By: #### C MP ####[facility] [address] [place] [address]Dr. Cortez Younger ALT [Catalytic activity/Vol] 21 U/L Normal 16-63 [facility] Comment on above: Performed By: #### C MP ####[facility] [address] [place], [place] [address]Dr. Eleanorvalerie Younger Anion gap [Moles/Vol] 9.4 mmol/L Normal [facility] Comment on above: Performed By: #### C MP ####[facility] [address] [place], [place] [address]Dr. Cortez Younger AST [Catalytic activity/Vol] 10 U/L Critically low 15-37 [facility] Comment on above: Performed By: #### C MP ####[facility] [address] [place] [address]Dr. Cortez Younger Bilirubin [Mass/Vol] 0.4 mg/dL Normal 0.2-1.0 [facility] Comment on above: Performed By: #### C MP ####[facility] [address] [place] [address]Dr. Cortez Younger Calcium [Mass/Vol] 9.1 mg/dL Normal 8.5-10.[address] [facility] Comment on above: Performed By: #### C MP ####[facility] [address] [place] [address]Dr. Cortez Younger Chloride [Moles/Vol] 98 mmol/L Normal 98-107 [facility] Comment on above: Performed By: #### C MP ####[facility] [address] [place] [address]Dr. Cortez Younger CO2 [Moles/Vol] 29.8 mmol/L Normal 21.0-32.0 [facility] Comment on above: Performed By: #### C MP ####[facility] [address] [place], [place] [address]Dr. Cortez Younger Creatinine [Mass/Vol] 0.89 mg/dL Normal 0.70-1.30 [facility] Comment on above: Performed By: #### C MP ####[facility] [address] [place], [place] [address]Dr. Cortez Aren EGFR-AF STATELESS >60 Normal >=60 [facility] Comment on above: Performed By: #### C MP ####[facility] [address] [place], [place] [address]Dr. Cortez Aren EGFR-NON AF STATELESS >60 Normal >=60 [facility] Comment on above: Performed By: #### C MP ####[facility] [address] [place], [place] [address]Dr. Cortez Aren Globulin (S) [Mass/Vol] 3.1 g/dL Normal [facility] Comment on above: Performed By: #### C MP ####[facility] [address] [place], [place] [address]Dr. Cortez Aren Glucose [Mass/Vol] 109 mg/dL Critically high 74-106 T [facility] Comment on above: Performed By: #### C MP ####[facility] [address] [place], [place] [address]Dr. Eleanorvalerie Aren Potassium [Moles/Vol] 4.2 mmol/L Normal 3.5-5.1 [facility] Comment on above: Performed By: #### C MP ####[facility] [address] [place], [place] [address]Dr. Cortez Younger Protein [Mass/Vol] 7.1 g/dL Normal 6.4-8.2 [facility] Comment on above: Performed By: #### C MP ####[facility] [address] [place] [address]Dr. Cortez Younger Sodium [Moles/Vol] 133 mmol/L Critically low 136-145 Th [facility] Comment on above: Performed By: #### C MP ####[facility] [address]dug[address] [place] [address]Dr. Cortez Younger Urea nitrogen [Mass/Vol] 7.0 mg/dL Normal 7.0-18.0 [facility] Comment on above: Performed By: #### C MP ####[facility] [address] [place] [address]Dr. Cortez Younger Urea nitrogen/Creatinin e [Mass ratio] 7.9 mg/mg Normal [facility] Comment on above: Performed By: #### C MP ####[facility] [address] [place] [address]Dr. Cortez Younger TSHon 10-31-2022 TSH 1.574 uIU/mL Normal 0.358-3.740 [facility] Comment on above: Performed By: #### T SH #### [facility] [address] [place] [address] Dr. Cortez Younger COMPLIANCE DRUG SCREENon PDF . Normal [facility] Comment on above: Performed By: #### E RUR #### [facility] [address] [place] [address] Dr. Cortez Younger Summary FINAL Normal [facility] Comment on above: Result Comment: = TOXASSURE [...] test is not intended to distinguish between iaxxj-5-lugnpftknvhzeoratbhv, the predominant form of THC in most herbal or marijuana-based products, and dqvnm-8-wpmqrthfobsjkzbvyrul. Norhydrocodone 1620 ng/mg creat Norhydrocodone is an [...] = Performed By: #### E RUR #### [facility] [address] [place] [address] Dr. Cortez Younger HYDROCODONE AND METABOLITE, URINEon 10-24-2022 Hydrocodone 55 ng/mL Normal [facility] Comment on above: Performed By: #### E RUR #### [facility] [address] [place] [address] Dr. Cortez Younegr Hydromorphone Negative Normal [facility] Comment on above: Result Comment: This test was developed and its performance characteristics determined by [employer]. It has not been cleared or approved by the Food and Drug Administration. Performed By: #### E RUR #### [facility] [address] [place] [address] Dr. Cortez Younger OSMOLALITYon 10-20-2022 Osmolality QNSREP Normal [facility] Comment on above: Result Comment: Spec imen quantity insufficient for verification by repeat analysis. contacted Lynda at your facility on 10-20-2022 Performed By: #### C BC #### [facility] [address] [place] [address] Dr. Cortez Younger OSMOLALITY URINEon Osmolality, Urine 119 mOsmol/kg Normal [facility] Comment on above: Result Comment: 24 h r : 300 - 900 Random: 50 - 1400 After 12hr fluid restriction: >850 Performed By: #### O SMOU ####[facility] [address] [place] [address]Dr. Cortez Younger CBC AUTO DIFFon 10-16-2022 BASO # 0.0 103/ul Normal 0.0-0.1 [facility] Comment on above: Performed By: #### C BC ####[facility] [address] [place] [id number]. Cortez Younger Basophils/100 WBC (Bld) 0.3 % Normal 0.2-2.0 [facility] Comment on above: Performed By: #### C BC ####[facility] [address] [place] [address]Dr. Cortez Younger EO # 0.0 103/ul Normal 0.0-0.7 [facility] Comment on above: Performed By: #### C BC ####[facility] [address] [place], [place] [address]Dr. Cortez Younger Eosinophils/100 WBC (Bld) 0.2 % Critically low 0.9-7.0 [facility] Comment on above: Performed By: #### C BC ####[facility] [address] [place], [place] [address]Dr. Cortez Younger Erythrocyte distribution width (RBC) [Ratio] 12.1 % Normal 11.0-15.0 [facility] Comment on above: Performed By: #### C BC ####[facility] [address] [place], [place] [address]Dr. Cortez Younger Hematocrit (Bld) [Volume fraction] 45.9 % Normal 42.0-54.0 [facility] Comment on above: Performed By: #### C BC ####[facility] [address] [place], [place] [address]Dr. Cortez Younger Hemoglobin (Bld) [Mass/Vol] 16.7 g/dL Normal 14.0-18.0 [facility] Comment on above: Performed By: #### C BC ####[facility] [address] [place], [place] [address]Dr. Cortez Younger IG # 0.06 10e3/ul Critically high 0.00-0.03 [facility] Comment on above: Performed By: #### C BC ####[facility] [address] [place], [place] [address]Dr. Cortez Younger IG % 0.5 % Normal 0.0-0.5 [facility] Comment on above: Performed By: #### C BC ####[facility] [address] [place] [id number] Younger LYMPH # 1.5 103/ul Normal 1.2-3.8 [facility] Comment on above: Performed By: #### C BC ####[facility] [address]ib[address] [place] [id number]. Cortez Younger Lymphocytes/100 WBC (Bld) 13.5 % Critically low 20.5-60.0 [facility] Comment on above: Performed By: #### C BC ####[facility] [address] [place] [address]DrFish Younger MANUAL DIFF REQ NO Normal [facility] Comment on above: Performed By: #### C BC ####[facility] [address] [place] [id number] Younger MCH (RBC) [Entitic mass] 31.2 pg Normal 25.9-34.0 [facility] Comment on above: Performed By: #### C BC ####[facility] [address] [place] [id number]. Cortez Younger MCHC (RBC) [Mass/Vol] 36.4 g/dL Critically high 29.9-35.2 [facility] Comment on above: Performed By: #### C BC ####[facility] [address]av[address] [place] [address]DrFish Younger MCV (RBC) [Entitic vol] 85.6 fL Normal 80.0-94.0 [facility] Comment on above: Performed By: #### C BC ####[facility] [address] [place] [address]DrFish Younger MONO # 0.6 103/ul Normal 0.3-0.8 [facility] Comment on above: Performed By: #### C BC ####[facility] [address] [place] [id number] Younger Monocytes/100 WBC (Bld) 5.4 % Normal 1.7-12.0 [facility] Comment on above: Performed By: #### C BC ####[facility] [address]ep[address] [place] [id number]. Cortez Younger NEUT # 8.9 103/ul Critically high 1.4-6.5 [facility] Comment on above: Performed By: #### C BC ####[facility] [address] [place] [id number]. Cortez Younger Neutrophils/100 WBC (Bld) 80.1 % Critically high 43.0-75.0 [facility] Comment on above: Performed By: #### C BC ####[facility] V[address]mp[address]ulxec[address] [place] [id number]. Cortez Younger Platelet mean volume (Bld) [Entitic vol] 9.7 fL Normal 9.5-13.5 [facility] Comment on above: Performed By: #### C BC ####[facility] [address]vci[address] [place] [id number]. Cortez Younger PLT 364 103/ul Normal 150-450 [facility] Comment on above: Performed By: #### C BC ####[facility] [address]ucsq[address] [place] [id number]. Cortez Younger RBC 5.36 106/ul Normal 4.70-6.10 [facility] Comment on above: Performed By: #### C BC ####[facility] [address] [place] [id number]. Cortez Younger WBC 11.1 103/ul Critically high 4.0-11.0 [facility] Comment on above: Performed By: #### C BC ####[facility] [address]ld[address] [place] [id number]. Cortez Younger Covid-19 PCR ([facility])on SARS-CoV-2 (COVID-19) RNA AXEL+probe Ql (Unsp spec) Not detected Normal NOT DETECTED [facility] Comment on above: Result Comment: When [...] for this test is supported by the [employer] and Human Service's declaration that [...] be used). Performed By: #### C VDTBH ####[facility] [address] [place] [address]Dr. Cortez Younger DRUG SCREEN RAPID (URINE)on 10-16-2022 AMP Negative Normal NEGATIVE [facility] Comment on above: Performed By: #### C BC #### [facility] [address] [place] [address] Dr. Cortez Younger BAR Positive Abnormal NEGATIVE [facility] Comment on above: Performed By: #### C BC #### [facility] [address] [place] [address] Dr. Cortez Younger BUP Negative Normal NEGATIVE [facility] Comment on above: Performed By: #### C BC #### [facility] [address] [place] [address] Dr. Cortez Younger BZO Positive Abnormal NEGATIVE [facility] Comment on above: Performed By: #### C BC #### [facility] [address] [place] [address] Dr. Cortez Younger OK Negative Normal NEGATIVE [facility] Comment on above: Performed By: #### C BC #### [facility] [address] [place] [address] Dr. Cortez Younger CUT-OFFS SEE BELOW Normal [facility] Comment on above: Result Comment: AMP [...] ng/mL Performed By: #### C BC #### [facility] [address] [place] [address] Dr. Cortez Younger DRUG CUT HEADER DRUG CLASS TEST SYST EM CUT-OFF CONCENTRATIONS ARE FOLLOWS: Normal [facility] Comment on above: Performed By: #### C BC #### [facility] [address] [place] [address] Dr. Cortez Younger mAMP Negative Normal NEGATIVE [facility] Comment on above: Performed By: #### C BC #### [facility] [address] [place] [address] Dr. Cortez Younger MTD Negative Normal NEGATIVE [facility] Comment on above: Performed By: #### C BC #### [facility] [address] [place] [address] Dr. Cortez Younger OPI Positive Abnormal NEGATIVE [facility] Comment on above: Performed By: #### C BC #### [facility] [address] [place] [address] Dr. Cortez Younger OXY Negative Normal NEGATIVE [facility] Comment on above: Performed By: #### C BC #### [facility] [address] [place] [address] Dr. Cortez Younger PCP Negative Normal NEGATIVE [facility] Comment on above: Performed By: #### C BC #### [facility] [address] [place] [address] Dr. Cortez Younger PPX Negative Normal NEGATIVE [facility] Comment on above: Performed By: #### C BC #### [facility] [address] [place] [address] Dr. Cortez Younger TCA Negative Normal NEGATIVE [facility] Comment on above: Performed By: #### C BC #### [facility] [address] [place] [address] [address] Cortez Younger THC Positive Abnormal NEGATIVE [facility] Comment on above: Performed By: #### C BC #### [facility] [address] [place] [address] Dr. Cortez Younger ER URINE PROFILEon 3 Bilirubin Ql (U) Negative Normal NEGATIVE [facility] Comment on above: Performed By: #### C BC #### [facility] [address] [place] [address] Dr. Cortez Younger Clarity (U) CLEAR Normal CLEAR [facility] Comment on above: Performed By: #### C BC #### [facility] [address] [place] [address] Dr. Cortez Younger Color (U) LT. YELLOW Normal YELLOW [facility] Comment on above: Performed By: #### C BC #### [facility] [address] [place] [address] Dr. Cortez Younger ERUAHD A micrscopic examina tion will be performed if indicated. Normal [facility] Comment on above: Performed By: #### C BC #### [facility] [address] [place] [address] Dr. Cortez Younger Glucose Ql (U) Negative Normal NEGATIVE [facility] Comment on above: Performed By: #### C BC #### [facility] [address] [place] [address] Dr. Cortez Younger Hemoglobin Ql (U) Negative Normal NEGATIVE [facility] Comment on above: Performed By: #### C BC #### [facility] [address] [place] [address] Dr. Cortez Younger Ketones Ql (U) Negative Normal NEGATIVE [facility] Comment on above: Performed By: #### C BC #### [facility] [address] [place] [address] Dr. Cortez Younger LEUKOCYTES Negative Normal NEGATIVE [facility] Comment on above: Performed By: #### C BC #### [facility] [address] [place], [place] [address] Dr. Cortez Younger Nitrite Ql (U) Negative Normal NEGATIVE [facility] Comment on above: Performed By: #### C BC #### [facility] [address] [place] [address] Dr. Cortez Younger pH (U) 7.5 [pH] Normal 5-9 [facility] Comment on above: Performed By: #### C BC #### [facility] [address] [place] [address] Dr. Cortez Younger SPEC GRAVITY <=1.005 Abnormal 1.005-<=1.[address] [facility] Comment on above: Performed By: #### C BC #### [facility] [address] [place] [address] Dr. Cortez Younger UA PROTEIN Negative Normal NEGATIVE/ TRACE [facility] Comment on above: Performed By: #### C BC #### [facility] [address] [place] [address] Dr. Cortez Younger UR MICRO IND NOT INDICATED Normal [facility] Comment on above: Performed By: #### C BC #### [facility] [address] [place] [address] Dr. Cortez Younger Urobilinogen Qn (U) 0.2 {Fidelia'U}/dL Normal 0.2 - 1.0 [facility] Comment on above: Performed By: #### C BC #### [facility] [address] [place] [address] Dr. Cortez Younger NAon 10-16-2022 Sodium [Moles/Vol] 125 mmol/L Critically low 136-145 Th [facility] Comment on above: Performed By: #### E RUR #### [facility] [address] [place] [address] Dr. Cortez Younger POTASSIUM URINEon 10-16-2022 UR POTASSIUM 11.8 mmol/L Normal [facility] Comment on above: Performed By: #### K U ####[facility] [address] [place] [address]Dr. Cortez Younger PROF 14(COMP METB)on 04-06-2 023 Albumin [Mass/Vol] 4.2 g/dL Normal 3.4-5.[address] [facility] Comment on above: Performed By: #### E RUR #### [facility] [address] [place] [address] Dr. Cortez Younger Albumin/Globulin [Mass ratio] 1.3 {ratio} Normal [facility] Comment on above: Performed By: #### E RUR #### [facility] [address] [place] [address] Dr. Cortez Younger ALP [Catalytic activity/Vol] 75 U/L Normal 46-116 [facility] Comment on above: Performed By: #### E RUR #### [facility] [address] [place] [address] Dr. Cortez Younger ALT [Catalytic activity/Vol] 23 U/L Normal 16-63 [facility] Comment on above: Performed By: #### E RUR #### [facility] [address] [place] [address] Dr. Cortze Younger Anion gap [Moles/Vol] 9.7 mmol/L Normal [facility] Comment on above: Performed By: #### E RUR #### [facility] [address] [place] [address] Dr. Cortez Younger AST [Catalytic activity/Vol] 16 U/L Normal 15-37 [facility] Comment on above: Performed By: #### E RUR #### [facility] [address] [place] [address] Dr. Cortez Younger Bilirubin [Mass/Vol] 0.4 mg/dL Normal 0.2-1.0 [facility] Comment on above: Performed By: #### E RUR #### [facility] [address] [place] [address] Dr. Cortez Younger Calcium [Mass/Vol] 9.1 mg/dL Normal 8.5-10.[address] [facility] Comment on above: Performed By: #### E RUR #### [facility] [address] [place] [address] Dr. Cortez Younger Chloride [Moles/Vol] 88 mmol/L Critically low 98-107 [facility] Comment on above: Performed By: #### E RUR #### [facility] [address] [place] [address] [address] Cortez Younger CO2 [Moles/Vol] 26.5 mmol/L Normal 21.0-32.0 [facility] Comment on above: Performed By: #### E RUR #### [facility] [address] [place] [address] [address] Cortez Younger Creatinine [Mass/Vol] 0.73 mg/dL Normal 0.70-1.30 [facility] Comment on above: Performed By: #### E RUR #### [facility] [address] [place] [address] [address] Cortez Younger EGFR-AF STATELESS >60 Normal >=60 [facility] Comment on above: Performed By: #### E RUR #### [facility] [address] [place] [address] Dr. Cortez Younger EGFR-NON AF STATELESS >60 Normal >=60 [facility] Comment on above: Performed By: #### E RUR #### [facility] [address] [place] [address] [address] Cortez Younger Globulin (S) [Mass/Vol] 3.2 g/dL Normal [facility] Comment on above: Performed By: #### E RUR #### [facility] [address] [place] [address] Dr. Cortez Younger Glucose [Mass/Vol] 109 mg/dL Critically high 74-106 [facility] Comment on above: Performed By: #### E RUR #### [facility] [address] [place] [address] [address] Cortez Younger Potassium [Moles/Vol] 4.2 mmol/L Normal 3.5-5.1 [facility] Comment on above: Performed By: #### E RUR #### [facility] [address] [place] [address] [address] Cortez Younger Protein [Mass/Vol] 7.4 g/dL Normal 6.4-8.2 [facility] Comment on above: Performed By: #### E RUR #### [facility] [address] [place] [address] [address] Cortez Younger Sodium [Moles/Vol] 120 mmol/L Critically low 136-145 Th [facility] Comment on above: Performed By: #### E RUR #### [facility] [address] [place] [address] [address] Cortez Younger Urea nitrogen [Mass/Vol] 7.0 mg/dL Normal 7.0-18.0 [facility] Comment on above: Performed By: #### E RUR #### [facility] [address] [place] [address] [address] Cortez Younger Urea nitrogen/Creatinin e [Mass ratio] 9.6 mg/mg Normal [facility] Comment on above: Performed By: #### E RUR #### [facility] [address] [place] [address] [address] Cortez Younger SODIUM RANDOM URINEon 2022 Sodium (U) [Moles/Vol] 26 mmol/L Critically low 30-90 [facility] Comment on above: Performed By: #### N AU ####[facility] [address] [place] [address]Dr. Cortez Younger ACETONE SERUMon 10-07-2022 ACETONE Negative Normal NEGATIVE [facility] Comment on above: Performed By: #### E RUR #### [facility] [address] [place] [address] [address] Cortez Younger CBC AUTO DIFFon 10-07-2022 BASO # 0.1 103/ul Normal 0.0-0.1 [facility] Comment on above: Performed By: #### C BC ####[facility] [address] [place] [address]Dr. Cortez Younger Basophils/100 WBC (Bld) 0.8 % Normal 0.2-2.0 [facility] Comment on above: Performed By: #### C BC ####[facility] [address] [place] [id number]. Cortez Younger EO # 0.0 103/ul Normal 0.0-0.7 [facility] Comment on above: Performed By: #### C BC ####[facility] [address] [place] [address]Dr. Cortez Younger Eosinophils/100 WBC (Bld) 0.2 % Critically low 0.9-7.0 [facility] Comment on above: Performed By: #### C BC ####[facility] [address] [place], [place] [address]Dr. Cortez Younger Erythrocyte distribution width (RBC) [Ratio] 12.1 % Normal 11.0-15.0 [facility] Comment on above: Performed By: #### C BC ####[facility] [address] [place], [place] [address]Dr. Cortez Younger Hematocrit (Bld) [Volume fraction] 42.9 % Normal 42.0-54.0 [facility] Comment on above: Performed By: #### C BC ####[facility] [address] [place], [place] [address]Dr. Cortez Younger Hemoglobin (Bld) [Mass/Vol] 15.4 g/dL Normal 14.0-18.0 [facility] Comment on above: Performed By: #### C BC ####[facility] [id number] [place], [place] [address]Dr. Cortez Younger IG # 0.04 10e3/ul Critically high 0.00-0.03 [facility] Comment on above: Performed By: #### C BC ####[facility] [address] [place], [place] [address]Dr. Cortez Younger IG % 0.4 % Normal 0.0-0.5 [facility] Comment on above: Performed By: #### C BC ####[facility] [address] [place], [place] [address]Dr. Cortez Younger LYMPH # 1.3 103/ul Normal 1.2-3.8 [facility] Comment on above: Performed By: #### C BC ####[facility] [address] [place], [place] [address]Dr. Cortez Aren Lymphocytes/100 WBC (Bld) 13.7 % Critically low 20.5-60.0 [facility] Comment on above: Performed By: #### C BC ####[facility] [address] [place] [address]Dr. Cortez Younger MANUAL DIFF REQ NO Normal [facility] Comment on above: Performed By: #### C BC ####[facility] [address] [place] [id number]. Cortez Younger MCH (RBC) [Entitic mass] 31.4 pg Normal 25.9-34.0 [facility] Comment on above: Performed By: #### C BC ####[facility] [address] [place] [address]Dr. Cortez Younger MCHC (RBC) [Mass/Vol] 35.9 g/dL Critically high 29.9-35.2 [facility] Comment on above: Performed By: #### C BC ####[facility] [address] [place], [place] [address]DrFish Younger MCV (RBC) [Entitic vol] 87.4 fL Normal 80.0-94.0 [facility] Comment on above: Performed By: #### C BC ####[facility] [address] [place], [place] [address]DrFish Younger MONO # 0.4 103/ul Normal 0.3-0.8 [facility] Comment on above: Performed By: #### C BC ####[facility] [address]sp[address] [place] [address]DrFish Younger Monocytes/100 WBC (Bld) 3.6 % Normal 1.7-12.0 [facility] Comment on above: Performed By: #### C BC ####[facility] [address] [place], [place] [address]DrFish Younger NEUT # 7.9 103/ul Critically high 1.4-6.5 [facility] Comment on above: Performed By: #### C BC ####[facility] [address] [place] [address]DrFish Younger Neutrophils/100 WBC (Bld) 81.3 % Critically high 43.0-75.0 [facility] Comment on above: Performed By: #### C BC ####[facility] [address] [place] [address]Dr. Cortez Younger Platelet mean volume (Bld) [Entitic vol] 8.8 fL Critically low 9.5-13.5 [facility] Comment on above: Performed By: #### C BC ####[facility] [address]asm[address] [place] [address]Dr. Cortez Younger PLT 371 103/ul Normal 150-450 [facility] Comment on above: Performed By: #### C BC ####[facility] [address]nyx[address] [place] [address]Dr. Cortez Younger RBC 4.91 106/ul Normal 4.70-6.10 [facility] Comment on above: Performed By: #### C BC ####[facility] [address] [place], [place] [address]Dr. Cortez Yougner WBC 9.8 103/ul Normal 4.0-11.0 [facility] Comment on above: Performed By: #### C BC ####[facility] [address] [place], [place] [address]DrFish Younger CRPon 10-07-2022 CRP [Mass/Vol] mg/L Normal <=1.0 [facility] Comment on above: Performed By: #### L IPA, TSH, CRP, CMP ####[facility] [address] [place], [place] [address]DrFish Younger ER URINE PROFILEon 3 Bilirubin Ql (U) Negative Normal NEGATIVE [facility] Comment on above: Performed By: #### E RUR #### [facility] [address] [place] [address] Dr. Cortez Younger Clarity (U) CLEAR Normal CLEAR [facility] Comment on above: Performed By: #### E RUR #### [facility] [address] [place] [address] Dr. Cortez Younger Color (U) LT. YELLOW Normal YELLOW [facility] Comment on above: Performed By: #### E RUR #### [facility] [address] [address] [address] Cortez PRESTON A micrscopic examina tion will be performed if indicated. Normal [facility] Comment on above: Performed By: #### E RUR #### [facility] [address] [place] [address] Dr. Cortez Younger Glucose Ql (U) Negative Normal NEGATIVE [facility] Comment on above: Performed By: #### E RUR #### [facility] [address] [place] [address] Dr. Cortez Younger Hemoglobin Ql (U) Negative Normal NEGATIVE [facility] Comment on above: Performed By: #### E RUR #### [facility] [address] [place] [address] Dr. Cortez Younger Ketones Ql (U) Negative Normal NEGATIVE [facility] [place] [facility] Comment on above: Performed By: #### E RUR #### [facility] [address] [place] [address] Dr. Cortez Younger LEUKOCYTES Negative Normal NEGATIVE [facility] Comment on above: Performed By: #### E RUR #### [facility] [address] [place] [address] Dr. Cortez Younger Nitrite Ql (U) Negative Normal NEGATIVE [facility] [place] [facility] Comment on above: Performed By: #### E RUR #### [facility] [address] [place] [address] Dr. Cortez Younger pH (U) 7.5 [pH] Normal 5-9 [facility] Comment on above: Performed By: #### E RUR #### [facility] [address] [place] [address] Dr. Cortez Younger SPEC GRAVITY <=1.005 Abnormal 1.005-<=1.[address] [facility] Comment on above: Performed By: #### E RUR #### [facility] [address] [place] [address] Dr. Cortez Younger UA PROTEIN Negative Normal NEGATIVE/ TRACE [facility] Comment on above: Performed By: #### E RUR #### [facility] [address] [address] [address] Cortez Younger UR MICRO IND NOT INDICATED Normal [facility] Comment on above: Performed By: #### E RUR #### [facility] [address] [address] [address] Cortez Younger Urobilinogen Qn (U) 0.2 {Fidelia'U}/dL Normal 0.2 - 1.0 [facility] Comment on above: Performed By: #### E RUR #### [facility] [address] [address] [address] Cortez Younger LACTATE/LACTIC ACIDon 2022 Lactate [Moles/Vol] 1.0 mmol/L Normal 0.4-2.0 [facility] Comment on above: Performed By: #### E RUR #### [facility] [address] [place] [address] Dr. Cortez Younger LIPASEon 10-07-2022 Lipase [Catalytic activity/Vol] 84.0 U/L Normal 73.0-393.0 [facility] Comment on above: Performed By: #### L IPA, TSH, CRP, CMP ####[facility] [address] [place] [address]DrFish Younger PROF 14(COMP METB)on 023 Albumin [Mass/Vol] 3.9 g/dL Normal 3.4-5.0 [facility] Comment on above: Performed By: #### L IPA, TSH, CRP, CMP ####[facility] [address] [place] [address]DrFish Younger Albumin/Globulin [Mass ratio] 1.7 {ratio} Normal [facility] Comment on above: Performed By: #### L IPA, TSH, CRP, CMP ####[facility] [address] [place] [address]DrFish Younger ALP [Catalytic activity/Vol] 78 U/L Normal 46-116 [facility] Comment on above: Performed By: #### L IPA, TSH, CRP, CMP ####[facility] [address] [place] [address]Dr. Cortez Younger ALT [Catalytic activity/Vol] 28 U/L Normal 16-63 [facility] Comment on above: Performed By: #### L IPA, TSH, CRP, CMP ####[facility] [address]whsyni[address] [place] [address]Dr. Cortez Younger Anion gap [Moles/Vol] 12.1 mmol/L Normal [facility] Comment on above: Performed By: #### L IPA, TSH, CRP, CMP ####[facility] [address] [place] [address]Dr. Cortez Younger AST [Catalytic activity/Vol] 15 U/L Normal 15-37 [facility] Comment on above: Performed By: #### L IPA, TSH, CRP, CMP ####[facility] [address]uzbcw[address] [place] [address]Dr. Cortez Younger Bilirubin [Mass/Vol] 0.5 mg/dL Normal 0.2-1.0 [facility] Comment on above: Performed By: #### L IPA, TSH, CRP, CMP ####[facility] [address] [place], [place] [address]Dr. Cortez Younger Calcium [Mass/Vol] 8.6 mg/dL Normal 8.5-10.1 [facility] Comment on above: Performed By: #### L IPA, TSH, CRP, CMP ####[facility] [address] [place] [address]Dr. Cortez Younger Chloride [Moles/Vol] 100 mmol/L Normal 98-107 [facility] Comment on above: Performed By: #### L IPA, TSH, CRP, CMP ####[facility] Zh[address]qwo[address] [place] [address]Dr. Cortez Younger CO2 [Moles/Vol] 28.8 mmol/L Normal 21.0-32.0 [facility] Comment on above: Performed By: #### L IPA, TSH, CRP, CMP ####[facility] [address] [place] [address]Dr. Cortez Younger Creatinine [Mass/Vol] 0.70 mg/dL Normal 0.70-1.30 [facility] Comment on above: Performed By: #### L IPA, TSH, CRP, CMP ####[facility] [address]zz[address] [place] [address]Dr. Cortez Younger EGFR-AF STATELESS >60 Normal >=60 [facility] Comment on above: Performed By: #### L IPA, TSH, CRP, CMP ####[facility] Y[address]edr[address] [place] [address]Dr. Cortez Younger EGFR-NON AF STATELESS >60 Normal >=60 [facility] Comment on above: Performed By: #### L IPA, TSH, CRP, CMP ####[facility] Enlxvsxkvt[address] [place] [address]Dr. Cortez Younger Globulin (S) [Mass/Vol] 2.3 g/dL Normal [facility] Comment on above: Performed By: #### L IPA, TSH, CRP, CMP ####[facility] [address] [place], [place] [address]Dr. Cortez Younger Glucose [Mass/Vol] 111 mg/dL Critically high 74-106 [facility] Comment on above: Performed By: #### L IPA, TSH, CRP, CMP ####[facility] Rvolcmxvfe[address] [place] [address]Dr. Cortez Younger Potassium [Moles/Vol] 3.9 mmol/L Normal 3.5-5.1 [facility] Comment on above: Performed By: #### L IPA, TSH, CRP, CMP ####[facility] [address]ushghgd[address] [place] [address]Dr. Cortez Younger Protein [Mass/Vol] 6.2 g/dL Critically low 6.4-8.2 [facility] Comment on above: Performed By: #### L IPA, TSH, CRP, CMP ####[facility] [address]juom[address] [place] [address]Dr. Cortez Younger Sodium [Moles/Vol] 137 mmol/L Normal 136-145 [facility] Comment on above: Performed By: #### L IPA, TSH, CRP, CMP ####[facility] [address]fc[address] [place], [place] [address]Zs. Cortez Younger Urea nitrogen [Mass/Vol] 6.0 mg/dL Critically low 7.0-18.0 [facility] Comment on above: Performed By: #### L IPA, TSH, CRP, CMP ####[facility] [address]nmrx[address] [place], [place] [address]Nv. Cortez Younger Urea nitrogen/Creatinin e [Mass ratio] 8.6 mg/mg Normal [facility] Comment on above: Performed By: #### L IPA, TSH, CRP, CMP ####[facility] [address]eq[address] [place], [place] [address]Bn. Cortez Younger SED RATE [facility] 2022 SED RATE <1 Normal <=20 [facility] Comment on above: Performed By: #### C BC #### [facility] [address] [place], [place] [address] Dr. Cortez [facility]ounger [facility] TSH 1.031 uIU/mL Normal 0.358-3.740 [facility] Comment on above: Performed By: #### L IPA, TSH, CRP, CMP ####[facility] [address]veloj[address] [place] [id number]. Cortez Younger [facility]-19 [facility]on [facility]13 SARS-CoV-2 (COVID-19) RNA AXEL+probe Ql (Unsp spec) Not detected Normal NOT DETECTED [facility] Comment on above: Result Comment: When [...] for this test is supported by the [employer] of Health and Human Service's declaration that [...] used). Performed By: #### C BC #### [facility] [address] [place] [address] Dr. Cortez Younger INFLUENZA A AND B [facility] 05-28 INFLUANE SEE BELOW Normal [facility] Comment on above: Result Comment: Nega tive for Flu A protein angiten. Infection due to Flu A cannot be ruled out. Flu A angiten in the sample may be below the detection limit of the test. Performed By: #### E RUR #### [facility] [address] [place] [address] Dr. Cortez Younger INFLUBNEGH SEE BELOW Normal [facility] Comment on above: Result Comment: Nega tive for Flu B protein antigen. Infection due to Flu B cannot be ruled out. Flu B antigen in the sample may be below the detection limit of the test. Performed By: #### E RUR #### [facility] [address] [place] [address] Dr. Cortez Younger INFLUENZA A AG Negative Normal NEGATIVE SEE COMMENT [facility] Comment on above: Performed By: #### E RUR #### [facility] [address] [place] [address] Dr. Cortez Younger INFLUENZA B AG Negative Normal NEGATIVE SEE COMMENT [facility] Comment on above: Performed By: #### E RUR #### [facility] [address] [place] [address] Dr. Cortez Younger INTERNAL CONTROLS Within Normal Limits Normal Wi thin Normal Limits [facility] Comment on above: Performed By: #### E RUR #### [facility] [address] [place] [address] Dr. Cortez Younger XR CHEST 1 Von [...] KAIA SHEIKH Date: 2022-05-28 13:36 Normal [facility] PROF 14(COMP METB)on 022 Albumin [Mass/Vol] 3.9 g/dL Normal 3.4-5.[address] [facility] Comment on above: Performed By: #### C MP #### [facility] [address] [address] [address] Cortez Younger Albumin/Globulin [Mass ratio] 1.4 {ratio} Normal [facility] Comment on above: Performed By: #### C MP #### [facility] [address] [place] [address] Dr. Cortez Younger ALP [Catalytic activity/Vol] 81 U/L Normal 46-116 [facility] Comment on above: Performed By: #### C MP #### [facility] [address] [address] [address] Cortez Younger ALT [Catalytic activity/Vol] 19 U/L Normal 16-63 [facility] Comment on above: Performed By: #### C MP #### [facility] [address] [address] [address] Cortez Younger Anion gap [Moles/Vol] 12.3 mmol/L Normal [facility] Comment on above: Performed By: #### C MP #### [facility] [address] [place] [address] Dr. Cortez Younger AST [Catalytic activity/Vol] 15 U/L Normal 15-37 [facility] Comment on above: Performed By: #### C MP #### [facility] [address] [address] [address] Cortez Younger Bilirubin [Mass/Vol] 0.3 mg/dL Normal 0.2-1.0 [facility] Comment on above: Performed By: #### C MP #### [facility] [address] [place] [address] Dr. Cortez Younger Calcium [Mass/Vol] 8.6 mg/dL Normal 8.5-10.[address] [facility] Comment on above: Performed By: #### C MP #### [facility] [address] [address] [address] Cortez Younger Chloride [Moles/Vol] 101 mmol/L Normal 98-107 [facility] Comment on above: Performed By: #### C MP #### [facility] [address] [address] [address] Cortez Younger CO2 [Moles/Vol] 30.6 mmol/L Normal 21.0-32.0 [facility] Comment on above: Performed By: #### C MP #### [facility] [address] [address] [address] Cortez Younger Creatinine [Mass/Vol] 0.75 mg/dL Normal 0.70-1.30 [facility] Comment on above: Performed By: #### C MP #### [facility] [address] [place] [address] Dr. Cortez Younger EGFR-AF STATELESS >60 Normal >=60 [facility] Comment on above: Performed By: #### C MP #### [facility] [address] [address] [address] Cortez Younger EGFR-NON AF STATELESS >60 Normal >=60 [facility] Comment on above: Performed By: #### C MP #### [facility] [address] [address] [address] Cortez Younger Globulin (S) [Mass/Vol] 2.8 g/dL Normal [facility] Comment on above: Performed By: #### C MP #### [facility] [address] [address] [address] Cortez Younger Glucose [Mass/Vol] 98 mg/dL Normal 74-[address] [facility] Comment on above: Performed By: #### C MP #### [facility] [address] [place] [address] Dr. Cortez Younger Potassium [Moles/Vol] 3.9 mmol/L Normal 3.5-5.1 [facility] Comment on above: Performed By: #### C MP #### [facility] [address] [address] [address] Cortez Younger Protein [Mass/Vol] 6.7 g/dL Normal 6.4-8.[address] [facility] Comment on above: Performed By: #### C MP #### [facility] [address] [place] [address] Dr. Cortez Younger Sodium [Moles/Vol] 140 mmol/L Normal 136-[address] [facility] Comment on above: Performed By: #### C MP #### [facility] [address] [place] [address] Dr. Cortez Younger Urea nitrogen [Mass/Vol] 5.0 mg/dL Critically low 7.0-18.0 [facility] Comment on above: Performed By: #### C MP #### [facility] [address] [place] [address] Dr. Cortez Younger Urea nitrogen/Creatinin e [Mass ratio] 6.7 mg/mg Normal [facility] Comment on above: Performed By: #### C MP #### [facility] [address] [place] [address] Dr. Cortez Younger CBC AUTO DIFFon 01-18-2022 BASO # 0.0 103/ul Normal 0.0-0.1 [facility] Comment on above: Performed By: #### C BC #### [facility] [address] [place] [address] Dr. Cortez Younger Basophils/100 WBC (Bld) 0.1 % Critically low 0.2-2.0 [facility] Comment on above: Performed By: #### C BC #### [facility] [address] [place] [address] Dr. Cortez Younger EO # 0.0 103/ul Normal 0.0-0.7 [facility] Comment on above: Performed By: #### C BC #### [facility] [address] [place] [address] Dr. Cortez Younger Eosinophils/100 WBC (Bld) 0.0 % Critically low 0.9-7.0 [facility] Comment on above: Performed By: #### C BC #### [facility] [address] [place] [address] Dr. Cortez Younger Erythrocyte distribution width (RBC) [Ratio] 12.8 % Normal 11.0-15.0 [facility] Comment on above: Performed By: #### C BC #### [facility] [address] [place] [address] Dr. Cortez Younger Hematocrit (Bld) [Volume fraction] 42.7 % Normal 42.0-54.0 [facility] Comment on above: Performed By: #### C BC #### [facility] [address] [place] [address] Dr. Cortez Younger Hemoglobin (Bld) [Mass/Vol] 15.3 g/dL Normal 14.0-18.0 [facility] Comment on above: Performed By: #### C BC #### [facility] [address] [place] [address] Dr. Cortez Younger IG # 0.10 10e3/ul Critically high 0.00-0.03 [facility] Comment on above: Performed By: #### C BC #### [facility] [address] [place] [address] Dr. Cortez Younger IG % 0.7 % Critically high 0.0-0.[address] [facility] Comment on above: Performed By: #### C BC #### [facility] [address] [place] [address] Dr. Cortez Younger LYMPH # 1.9 103/ul Normal 1.2-3.8 [facility] Comment on above: Performed By: #### C BC #### [facility] [address] [place] [address] Dr. Cortez Younger Lymphocytes/100 WBC (Bld) 13.5 % Critically low 20.5-60.0 [facility] Comment on above: Performed By: #### C BC #### [facility] [address] [place] [address] Dr. Cortez Younger MANUAL DIFF REQ NO Normal [facility] Comment on above: Performed By: #### C BC #### [facility] [address] [address] [address] Cortez Younger MCH (RBC) [Entitic mass] 31.4 pg Normal 25.9-34.0 [facility] Comment on above: Performed By: #### C BC #### [facility] [address] [place] [address] Dr. Cortez Younger MCHC (RBC) [Mass/Vol] 35.8 g/dL Critically high 29.9-35.2 [facility] Comment on above: Performed By: #### C BC #### [facility] [address] [place] [address] Dr. Cortez Younger MCV (RBC) [Entitic vol] 87.5 fL Normal 80.0-94.0 [facility] Comment on above: Performed By: #### C BC #### [facility] [address] [place] [address] Dr. Cortez Younger MONO # 0.8 103/ul Normal 0.3-0.8 [facility] Comment on above: Performed By: #### C BC #### [facility] [address] [place] [address] Dr. Cortez Younger Monocytes/100 WBC (Bld) 5.6 % Normal 1.7-12.0 [facility] Comment on above: Performed By: #### C BC #### [facility] [address] [place] [address] Dr. Cortez Younger NEUT # 11.4 103/ul Critically high 1.4-6.5 [facility] Comment on above: Performed By: #### C BC #### [facility] [address] [place] [address] Dr. Cortez Younger Neutrophils/100 WBC (Bld) 80.1 % Critically high 43.0-75.0 [facility] Comment on above: Performed By: #### C BC #### [facility] [address] [place] [address] Dr. Cortez Younger Platelet mean volume (Bld) [Entitic vol] 8.4 fL Critically low 9.5-13.5 [facility] Comment on above: Performed By: #### C BC #### [facility] [address] [place] [address] Dr. Cortez Younger PLT 352 103/ul Normal 150-450 [facility] Comment on above: Performed By: #### C BC #### [facility] [address] [place] [address] Dr. Cortez Younger RBC 4.88 106/ul Normal 4.70-6.10 [facility] Comment on above: Performed By: #### C BC #### [facility] [address] [place] [address] Dr. Cortez Younger WBC 14.2 103/ul Critically high 4.0-11.0 [facility] Comment on above: Performed By: #### C BC #### [facility] [address] [place] [address] Dr. Cortez Younger PROF 14(COMP METB)on 022 Albumin [Mass/Vol] 4.1 g/dL Normal 3.4-5.0 [facility] Comment on above: Performed By: #### C MP #### [facility] [address] [place] [address] Dr. Cortez Younger Albumin/Globulin [Mass ratio] 1.5 {ratio} Normal [facility] Comment on above: Performed By: #### C MP #### [facility] [address] [place] [address] Dr. Cortez Younger ALP [Catalytic activity/Vol] 77 U/L Normal 46-116 [facility] Comment on above: Performed By: #### C MP #### [facility] [address] [place] [address] Dr. Cortez Younger ALT [Catalytic activity/Vol] 19 U/L Normal 16-63 [facility] Comment on above: Performed By: #### C MP #### [facility] [address] [place] [address] Dr. Cortez Younger Anion gap [Moles/Vol] 10.6 mmol/L Normal [facility] Comment on above: Performed By: #### C MP #### [facility] [address] [place] [address] Dr. Cortez Younger AST [Catalytic activity/Vol] 8 U/L Critically low 15-37 [facility] Comment on above: Performed By: #### C MP #### [facility] [address] [address] [address] Cortez Younger Bilirubin [Mass/Vol] 0.3 mg/dL Normal 0.2-1.0 [facility] Comment on above: Performed By: #### C MP #### [facility] [address] [address] [address] Cortez Younger Calcium [Mass/Vol] 8.9 mg/dL Normal 8.5-10.1 [facility] Comment on above: Performed By: #### C MP #### [facility] [address] [place] [address] Dr. Cortez Younger Chloride [Moles/Vol] 91 mmol/L Critically low 98-107 [facility] Comment on above: Performed By: #### C MP #### [facility] [address] [address] [address] Cortez Younger CO2 [Moles/Vol] 30.1 mmol/L Normal 21.0-32.0 [facility] Comment on above: Performed By: #### C MP #### [facility] [address] [place] [address] Dr. Cortez Younger Creatinine [Mass/Vol] 0.88 mg/dL Normal 0.70-1.30 [facility] Comment on above: Performed By: #### C MP #### [facility] [address] [address] [address] Cortez Younger EGFR-AF STATELESS >60 Normal >=60 [facility] Comment on above: Performed By: #### C MP #### [facility] [address] [address] [address] Cortez Younger EGFR-NON AF STATELESS >60 Normal >=60 [facility] Comment on above: Performed By: #### C MP #### [facility] [address] [place] [address] Dr. Cortez Younger Globulin (S) [Mass/Vol] 2.8 g/dL Normal [facility] Comment on above: Performed By: #### C MP #### [facility] [address] [address] [address] Cortez Younger Glucose [Mass/Vol] 112 mg/dL Critically high 74-106 [facility] Comment on above: Performed By: #### C MP #### [facility] [address] [address] [address] Cortez Younger Potassium [Moles/Vol] 3.7 mmol/L Normal 3.5-5.1 [facility] Comment on above: Performed By: #### C MP #### [facility] [address] [address] [address] Cortez Younger Protein [Mass/Vol] 6.9 g/dL Normal 6.4-8.2 [facility] Comment on above: Performed By: #### C MP #### [facility] [address] [address] [address] Cortez Younger Sodium [Moles/Vol] 128 mmol/L Critically low 136-145 [facility] Comment on above: Performed By: #### C MP #### [facility] [address] [address] [address] Cortez Younger Urea nitrogen [Mass/Vol] 9.0 mg/dL Normal 7.0-18.0 [facility] Comment on above: Performed By: #### C MP #### [facility] [address] [address] [address] Cortez Younger Urea nitrogen/Creatinin e [Mass ratio] 10.2 mg/mg Normal [facility] Comment on above: Performed By: #### C MP #### [facility] [address] [address] [address] Cortez Younger SED RATE WESTERGRENon 2021 SED RATE <1 Normal <=20 [facility] Comment on above: Performed By: #### S EDR ####[facility] [address] [place], [place] [address]ZpDr. Cortez Younger UA RANDOMon 01-18-2022 Bilirubin Ql (U) Negative Normal NEGATIVE [facility] Comment on above: Performed By: #### E RUR #### [facility] [address] [place] [address] Dr. Cortez Younger Clarity (U) CLEAR Normal CLEAR [facility] Comment on above: Performed By: #### E RUR #### [facility] [address] [place] [address] Dr. Cortez Younger Color (U) LT. YELLOW Normal YELLOW [facility] Comment on above: Performed By: #### E RUR #### [facility] [address] [place] [address] Dr. Cortez Younger Glucose Ql (U) Negative Normal NEGATIVE [facility] [place] [facility] Comment on above: Performed By: #### E RUR #### [facility] [address] [place] [address] Dr. Cortez Younger Hemoglobin Ql (U) TRACE-LYSED Abnormal NEGATIVE [facility] Comment on above: Performed By: #### E RUR #### [facility] [address] [place] [address] Dr. Cortez Younger Ketones Ql (U) Negative Normal NEGATIVE [facility] [place] [facility] Comment on above: Performed By: #### E RUR #### [facility] [address] [place] [address] Dr. Cortez Younger LEUKOCYTES TRACE Abnormal NEGATIVE [facility] Comment on above: Performed By: #### E RUR #### [facility] [address] [place] [address] Dr. Cortez Younger Nitrite Ql (U) Negative Normal NEGATIVE [facility] [place] [facility] Comment on above: Performed By: #### E RUR #### [facility] [address] [place] [address] Dr. Cortez Younger pH (U) 6.5 [pH] Normal 5-9 [facility] Comment on above: Performed By: #### E RUR #### [facility] [address] [place] [address] Dr. Cortez Younger SPEC GRAVITY <=1.005 Abnormal 1.005-<=1.[address] [facility] Comment on above: Performed By: #### E RUR #### [facility] [address] [address] [address] Cortez Younger UA PROTEIN Negative Normal NEGATIVE/ TRACE [facility] Comment on above: Performed By: #### E RUR #### [facility] [address] [address] [address] Cortez Younger Urobilinogen Qn (U) 0.2 {Fidelia'U}/dL Normal 0.2 - 1.0 [facility] Comment on above: Performed By: #### E RUR #### [facility] [address] [address] [address] Cortez Younger MRI CSPINE WO W [...] not appreciably changed. Electronically authenticated by: VERN UL Date: 2022-01-17 16:24 Normal [facility] MRI TSPINE WO W CONon 2021 [...] by: VERN LU Date: 2022-01-17 16:29 Normal [facility] MRI BRAIN WO W CONon 022 [...] by: VERN LU Date: 2022-01-03 08:03 Normal [facility] Patient Educationon 12-25-19 Patient Education Oncology [...] including vitamins, herbs, eye drops, creams, and foqm-jvk-bkrxqwg medicines. This also includes: ? Medicines to [...] 08/01/2005 Document Revised: 06/11/2018 Document Reviewed: 04/05/2018 ElseMDLIVE Patient Education ? 2019 [employer]. Normal [facility] Urology Office/Clinic Noteon 12-24-2021 Urology [...] Urnls Dip Stick Auto w/o Microscopy POC 08477 3. Elevated PSA (R97.20: Elevated prostate specific antigen [PSA]) Most recent PSA done 08/13/21 5.24 Ordered: Urnls Dip Stick Auto w/o Microscopy POC 41643 Other obstructive and reflux uropathy (N13.8: Other obstructive and reflux uropathy) Follow-up With When Contact Information Star Manley MD, Gustavo Orlando, URO In 6 months [facility] [address], [place] [address]- Additional Instructions: w/ PVR Patient Education Prostate-Specific [...] (more content not included)... Normal [facility] Comment on above: Result Comment: Elec tronically Signed By: Star Manley MD, Gustavo Orlando\.br\Date and Time Signed: 12/24/21 10:52 EDT\.br\Electronically Co-Signed By: Lynda Ortega\.br\Date and Time Co-Signed: 12/24/21 10:47 EDT Lab Reportson 12-16-2021 Lab Reports [id number]#1.00CD: 127 Normal [facility] Lab Reports [id number]#1.00CD: 127 Normal [facility] CULTURE URINEon 12-12-2021 CULTURE URINE Culture Observations : No growth Normal [facility] Comment on above: Performed By: #### U RCX ####[facility] [address] [address]Dr. Cortez Younger UA RANDOMon 12-12-2021 Bilirubin Ql (U) Negative Normal NEGATIVE [facility] Comment on above: Performed By: #### U A #### [facility] [address] [address] [address] Cortez Younger Clarity (U) CLEAR Normal CLEAR [facility] Comment on above: Performed By: #### U A #### [facility] [address] [place] [address] Dr. Cortez Younger Color (U) LT. YELLOW Normal YELLOW [facility] Comment on above: Performed By: #### U A #### [facility] [address] [place] [address] Dr. Cortez Younger Glucose Ql (U) Negative Normal NEGATIVE [facility] Comment on above: Performed By: #### U A #### [facility] [address] [place] [address] Dr. Cortez Younger Hemoglobin Ql (U) LARGE Abnormal NEGATIVE [facility] Comment on above: Performed By: #### U A #### [facility] [address] [place] [address] Dr. Cortez Younger Ketones Ql (U) Negative Normal NEGATIVE [facility] Comment on above: Performed By: #### U A #### [facility] [address] [place] [address] Dr. Cortez Younger LEUKOCYTES Negative Normal NEGATIVE [facility] Comment on above: Performed By: #### U A #### [facility] [address] [place] [address] Dr. Cortez Younger Nitrite Ql (U) Negative Normal NEGATIVE [facility] [place] [facility] Comment on above: Performed By: #### U A #### [facility] [address] [place] [address] Dr. Cortez Younger pH (U) 7.0 [pH] Normal 5-9 [facility] Comment on above: Performed By: #### U A #### [facility] [address] [place] [address] Dr. Cortez Younger SPEC GRAVITY 1.010 Normal 1.005-<=1.025 [facility] Comment on above: Performed By: #### U A #### [facility] [address] [address] [address] Cortez Younger UA PROTEIN Negative Normal NEGATIVE/ TRACE [facility] Comment on above: Performed By: #### U A #### [facility] [id number] Cortez Younger Urobilinogen Qn (U) 0.2 {Fidelia'U}/dL Normal 0.2 - 1.0 [facility] Comment on above: Performed By: #### U A #### [facility] [address] [place] [address] Dr. Cortez Younger Coding Summary.on 12-06-2021 Coding Summary. CD:[id number] Gh0b Ww+PGhlYWQ+PX6OIIRtV03hm WFbtG1PG7lHLL0PYGRTZYAMG O1LDD7tmBG5DWdgB5SffdYw EqrgbOYfNM21ASj1ORE5xJdf BQydjW6avCXeD3l7QiEhWK60 bA18IGoqSBIaUeX2PkUfiyru bWFy L0nkPpIhkGKuQft+PHRhYmxl IHdpZHRoPScxMDAlJyBzdHls OS2tLh5tQSJlFINzkQvtlORx OiBj a5hgNIBiZKwbTE5oqSyfM8Nr tQL8CALyd7f5Or06rSA+PHRk FFZ9oRdlYIzag452EsPym5gr IDM3 kITwHOwdTIF2Z11jv1G6WRFw FTUoTLV6wEX7aA0vzPvhcbke T9BeqGLtKiG6EJX5vTHyjR4j bGln krlbpA8lFar+R61ZPY9BVLVX ZG2QDws8H5LwMjnylZY+PC90 QMGaRK69hWZiyLOpz7rojJx7 JzEw XZHnURB3eSagNOcdw6LzBYUb P68ekAKih1A8HDEgoYrpuBSw YfQerDU3eS7vIHdaxdoct0hl dzsn Whkik2fcqk50xS91D07xOBen NVAcXZH3UKRaPAHrjYctzc4d jW6pDx6+MGvit3rop2exiZd2 IjIw DAUpayTryCuzSLN4p6PmYq28 R6AwoFwfs6ZiIol2pn67xEMz e8L6qGM2IVhxYCIvxE7hPSfq ZnQ6 SQXwLtAobD68sRGmUSwkKf6v mXmpnQqhXP0sSVOjlwqwBJPd bC1fWXUkaLRysShlJB3mJVHo bjtm k727UvDkHWS7GLLaeEYkP9Qd pL4hGnWsYBYjLUXqB4KehRCb PYhxY445CVqcTbL5VJAtlxUr Y2Fs CCQpsNbrXtD1a0J0Eo1Co6En sukbKMX6LGrxEDB3BpG1PjYa LmY8F7PtPqu5OHLlfDchRS9g J3Bh MLRxhleuardhnNV8ENHzHTKf hR47rZRmKIdoDp5lk8M3t208 BBFdJZUfoF45Dp4siRorDPIw dCBU nF6ozctla0mtvkiqObLvVVSj XDb2IWm4IUYnrQicNoVgBKM5 HfF6PHP2tKYxdG3oyUqcrtix dG9w Oyc+N46nxT8gLQX7FOZ7gtju BSRhjiQnBK75GS72A5WvSimk dGFibGU+WBGdwoIniGgoYO7p YmFj g2lve6MaLRggF5XhLBKdYMdg Asg2YKKqFQW3mIY9iM6aBEOb JQape1V4uEH5I6OvcyKzqc8t b2xs ABTnMNreA37bhBHyj0M7RJEy kVS8CLUdnYjrTeHabU01Eze+ NNUimXyfm8PiZbvic1tew6ps dGg9 AlHgBZNhbkCrkCpuTCR0o6Xb Tk49N38zDObvVSSzTQTuFGXr MYDvjGpkgy3xiG3pTm3+PGNv bCB3 hFI2sL8gOKMfXrH0HJieL131 XiKpaPNzMsoqs8gap1looLn0 ZdOmHNKrgqPkuXvnRJZ7z2Kt Lz48 C01tIYkeBTFhVBJbRRGcHHWo qAwsue5gvU2iDt2+YS2sv7bb xm80nW26yVK+JERyTNA4lVsv PSdw CCHecK7oMGvlZfX8VVXdQgJo bG30fGYzDGydRj8xkLsqtPcc DS2iJXNmjdxvo051YxBin4zg IDEw sWGfXWukIHH1H65fn2Y4URCx WXFhHZC5wOR1eH3lwBrllxuh bGVmdDsgdmVydGljYWwtYWxp Z246 IHRvcDsnPlBhdGllbnQgTmFt ADs2N5GoDog0QXZkpYlyPN5v eJYeHLjhIh2ydYlesBugLI7k NTBp tguzd052TwCar0pnRPPuvQSb XLgfCPE5J73xf9W4JNAjVDYn UCF1mDH0yD8igGvdcmjgsMDv dDsg njDmeRbcBZxpDUsyX552EAIh kOfdSrLkrlXfBDHpiAQ4ND29 RW73vLOly6O6eML4O8ToSZDd bmct uxfajRG7CRInBTKwvG40Qt8h bPkrQa1oFSLrQDL4KTWgyKMm H5YuiD3oRcVpVBCaNRGpD5Fo eHQt KHawS163ICrsWmQ8EMJpwfPs K8LwGIHqwFoySvA0i7W6Yy8E P4R1YT61CZ59kJOrr3D8nTT7 J3Bh TVFocxodoogvvOQ4QNPpDQRt aV44Dp3tgMiqWv8aWNPtXXV4 UPSylMIbF4BfhA1aXgOqZCTw MDAw C7QvyREkUFfrM174NXwhMaF7 SHBgfhHqC8PyUZYuzKroEnN9 d1X5Qz9YGYd6WZ69NQ41rNDh c3R5 yLL1M3QsLRVacepynmikqOL2 CTBsDNBnrM03Ct2igHswDo3g QUQnDCF9TETrxYPhA9NdcO4h OiAj VJUjBPFyY5AszELmQDdnP105 QCqjSyW9OPIoulFrR6SjFIXt iUxtVoY2u9M1Vv8AUWKuNL63 IFR5 nCB0NH86AI59X9YcNdriySAv bGU+PHRhYmxlIHdpZHRoPScx CJKiRqPpkJszSR6wGe6jWXFj LWNv jVvyjDJqJqTgx4idDQPfOBmw XF5lcYkcY2JoqAE0UTTzt3p7 Rd95U08aT9LhoVV+PGNvbCB3 aWR0 oP5qQxJkBdW6ZEsgH772SlZu aBCxZrwhi1too9dbiHp1DxB0 KULhvmXdtFfwFXW8j0WjNf59 Y29s IHdpZHRoPSIxNSUiIHZhbGln gy5oaZ6xLk1+CYTtcRS5wNF0 lY6hNiKtAjG0HSktM300IfYy cCIv Xavwa3kat0dsePv6VnFnNGTt hqOinDbcDST9g0FhTj41Y5Mc vFkci4UvLnv2tr09lUXdm3Y8 bGU9 K7ThIVTxuaknpUHefIqqCQ3m QLNhyiuiEFCffQ8aZXOeJ6g5 DyLaLjA5PZlrO8KwqoY7QLSk cHQg WUgiGOQ9D40ts6V2CTHiVJJz IGJ8kHN9bO3fjNqgtgklvXKj uGqczuBouCflIGnlZPhaH930 IHRv lFqjJRDraH9iOOIfwNNdbZuf KI2lZJWeqkncMqBWHhFHM4rA SVgpK6IHIJ1kOIaeyAX+PHRk IHN0 aQglXIauUNYnjB6dWVSrU6t3 EbRrJxT3VYhaO8TnEGDbsaic Lc51zG6gJvLrXhL0WWqaM7Bb bnQ6 IAVapUCnVCepFDD1E36lr3T0 QYMbKLCaGHS8mKZ5xE8tpTiy bjogbGVmdDsgdmVydGljYWwt YWxp V647BLFfiMegEqP0IfPoHaC1 Tez6E2DgXnn5WVJbjPtjEO7n zFAiRQpxLn2ulLnpiMxxXY6c NTBp oscoLYDsmZ8uTWZlpHTueJds HM5wQZGtaofza109WmPlEDV4 LSCxmDVxF6OliZ8yVeVrWRGv MDAw M6AalAXtVDzhJ215YHssMyE8 PUWbwpPnX5WnFBTuyAniPzB3 u1W7Jn91LnSCBMLiswatiVT+ PHRk DPF0dXcaSSfoHJUhvQ5mFYMp L6l4EcQwOxQ5UZbvR2PdXFCq xepuFr59mF6fQiAsTmS6HGwd O2Zv zpN5DOAntGUiSVsjBZL7Q07p o5Z3WPZnQBUgTBN8wPQ1aM2e bGlnbjogbGVmdDsgdmVydGlj YWwt OWqcN869ZAGlnXdvRk9soLJ7 B8NpDie9NNViyCjiRE5lnFDw KScsWd9dqTdhkUscTO4aFYJu bjtw TFFccC2aOUCnfHLitHtyFV0e PLZamovkf298GjTmWBO5MHNv rESoX3CpnK4mOmLmCZUjDGYm O3Rl mSHfIBunO589YBscXfX5LHKc ekAnG7OpRQSjuDiuGhU7h6I7 Wg6KxZZkYPDnOR73DI03BN78 L3Ry PjwvdGFibGU+PHRhYmxlIHdp OCGnNAzvWWEmTwSweZxyLL8m Aw9kEVJrOGSvgWbarPBkIqAg b2xs JVTnEOypJR0eeXvsU7YvgXP1 GDXub7b5Zg86T99sK8VwrXW+ SNSqgZX3xHH1fM5aIiIxLqN7 YWxp N309LaZsnJMuYqwzu8hio8pb fYo6VfLqMNKyuoZkvFqkNRF7 t8ZwYy01H90tONngWOSgFVKv MCUi GXBppCpanr3sdW2hYn2+PGNv tKX8jSV4nL4oXzTfFoL7PKtz H557EwBteKFpPcfvM49fS4Az dXA+ GPImPdo3JBFcaCxgUF2kiTRq OPdhTg4lENT7TjCqWhPbLNtt Z5TuVNRrdieydgtfgYD9PHGq MDUw gI69Bs7hqTmsSl7iHEDbBYA0 MPYayZYkN1DanZ0vKfHhWLOx RMPeJ7HoxLBwBFthE383VNqy ZnQ7 EOCiwlQwB6SuWMHyuAiaUkA0 g1C0We9EmUiaoJUxSZ0rIzLv SKd1R8AkHdi2HLEozYcrBH4c cGFk VLlkAx8dxJprnHezTB8kCHEs jxgzd185UgZyu8rdOTWrwWWe LUpnOBL7K31uj2W4NWQoIVBn MDA7 eAF1kG6dvWclqpnscDAdqWhj bqRrhMdpLIfqHPkgH027JQVo mMvoLoOGYon7V5FyVri8VTSy dHls FO2eaHPlQZysEu4jbVbejLbo MA9hMBNstthoh758BmIxk6na UIZpdLJcZWmpVWY1M31nw0S5 ICMw KNSjRMT8dYA2eO4erJgngmkb bGVmdDsgdmVydGljYWwtYWxp T862VPObaVujUr9EOdb5Y8Ka Pjx0 BZTycUxtHP8vxVCwXViwWf1i yUkieGyzZS5hPJZkrdbva906 NfByq7ytRDKboNJoRTvhKIQ1 Y29s k4I6FBNjKDUgJSH3mZW8hY7d bGlnbjogbGVmdDsgdmVydGlj LIwnCBymL733IGVpyVyxRxSd eWVy OjwvdGQ+EH65bg11R1OqKtdo Vnb7IHGjBZL2iOF2wX0pMXCk KQzuk2O7mJA1H4CdlbQqsd7m b2xs YXBz (more content not included)... [facility] Consent for Procedure/Surger yon 12-05-2021 Consent for Procedure/Surgery [id number]#1.00CD :127 [facility] Consent for Treatmenton -2 Consent for Treatment [id number]#1.00CD: 127 [facility] IntraOperative Documentson 0 12-05-2021 IntraOperative Documents [id number]#1.00CD :127 [facility] Main OR Intraoperative Recor don 12-05-2021 Main OR Intraoperative Record IntraOp Document Type FTURO Summary Primary Physician: Star Manley MD, Gustavo Orlando Finalized Date/Time: 12/05/21 13:57:51 Pt. Name: HARISH MCKENNA D.O.B./Sex: 1970 Male Med Rec #: [id number] Physician: Star Manley MD, Gustavo Orlando Financial #: [id number] Pt. Type: O Room/Bed: / Admit/Disch: 12/05/21 11:48:14 - Institution: Case Times FTURO Entry 1 Patient Times In Room 12/05/21 13:23:00 Out Room 12/05/21 13:57:00 Procedure Times Start 12/05/21 13:40:00 Stop 12/05/21 13:53:00 Anesthesia Times Last Modified By: Veena Levin RN 12/05/21 13:57:47 Case Attendance FTURO Entry 1 Entry 2 Entry 3 Case Attendee Star Manley MD, Gustavo Sanders STORE PLANNER, Veena Brower STORE PLANNER, Ni Aguirre Role Performed Surgeon - Primary [...] Case Attendee Veena Levin RN Role Performed Director Of Email Marketing - Primary Time In 12/05/21 13:23:00 Time [...] 2 - Clean-Contaminated Last Modified By: Veena eLvin RN 12/05/21 13:54:03 General Case Data FTURO [...] Orlando, Verified (If Medication Participants Veena Sanders CST) Leonarda Aguirre CST, Ollie Archuleta RN, Kimberly [...] Implant Implant Identification Description UROLIFT Lot Number [id number] [employer]OTRA[employer] Catalog ?# [id number] Expiration Date 07/17/23 Usage Data Implant Site [...] (more content not included)... Normal [facility] Main OR Preoperative Recordo n 12-05-2021 Main OR Preoperative Record Holding Area Document Type FTURO Summary Primary Physician: Gustavo Graves Jr., MD Finalized Date/Time: 12/05/21 13:01:06 Pt. Name: LESLIESHARLAHARISH D.O.B./Sex: 1970 Male Med Rec #: [id number] Physician: Gustavo Graves Jr., MD Financial #: [id number] Pt. Type: O Room/Bed: / Admit/Disch: 12/05/21 [...] RN Document Signatures Signed By: Yurynitish PEREZMurray 12/05/21 12:28 Veena Levin RN 12/05/21 13:01 Normal [facility] Operative Reporton Operative Report Patient: [...] procedure (10 mg diazepam, 5/325 mg of Ashby), Local Anesthesia (60cc 2% Xylocaine liquid inserted [...] was subsequently discharged home. Normal [facility] Comment on above: Result Comment: Elec tronically Signed By: Star Manley MD, Gustavo Orlando\.amanda\Date and Time Signed: 12/05/21 13:58 EDT CBC AUTO DIFFon 12-03-2021 BASO # 0.2 103/ul Critically high 0.0-0.1 [facility] Comment on above: Performed By: #### C BC ####[facility] [address] [address]DrFish Younger Basophils/100 WBC (Bld) 1.3 % Normal 0.2-2.0 [facility] Comment on above: Performed By: #### C BC ####[facility] [address] [id number]. Cortez Younger EO # 0.2 103/ul Normal 0.0-0.7 [facility] Comment on above: Performed By: #### C BC ####[facility] [address] [address]DrFish Younger Eosinophils/100 WBC (Bld) 1.8 % Normal 0.9-7.0 [facility] Comment on above: Performed By: #### C BC ####[facility] [address] [address]Dr. Cortez Younger Erythrocyte distribution width (RBC) [Ratio] 13.3 % Normal 11.0-15.0 [facility] Comment on above: Performed By: #### C BC ####[facility] [address] [place], [place] [address]Dr. Cortez Younger Hematocrit (Bld) [Volume fraction] 45.0 % Normal 42.0-54.0 [facility] Comment on above: Performed By: #### C BC ####[facility] [address] [place], [place] [address]Dr. Cortez Younger Hemoglobin (Bld) [Mass/Vol] 15.6 g/dL Normal 14.0-18.0 [facility] Comment on above: Performed By: #### C BC ####[facility] [address] [place], [place] [address]Dr. Cortez Younger IG # 0.05 10e3/ul Critically high 0.00-0.03 [facility] Comment on above: Performed By: #### C BC ####[facility] [address] [place], [place] [address]Dr. Cortez Younger IG % 0.4 % Normal 0.0-0.5 [facility] Comment on above: Performed By: #### C BC ####[facility] [address] [place], [place] [address]Dr. Cortez Younger LYMPH # 1.8 103/ul Normal 1.2-3.8 [facility] Comment on above: Performed By: #### C BC ####[facility] [address] [place], [place] [address]Dr. Cortez Younger Lymphocytes/100 WBC (Bld) 15.2 % Critically low 20.5-60.0 [facility] Comment on above: Performed By: #### C BC ####[facility] [address] [place], [place] [address]Dr. Cortez Aren MANUAL DIFF REQ NO Normal [facility] Comment on above: Performed By: #### C BC ####[facility] [address] [address]Dr. Cortez Younger MCH (RBC) [Entitic mass] 31.1 pg Normal 25.9-34.0 [facility] Comment on above: Performed By: #### C BC ####[facility] [address] [place], [place] [address]Dr. Cortez Younger MCHC (RBC) [Mass/Vol] 34.7 g/dL Normal 29.9-35.2 [facility] Comment on above: Performed By: #### C BC ####[facility] [address] [place], [place] [address]Dr. Cortez Aren MCV (RBC) [Entitic vol] 89.8 fL Normal 80.0-94.0 [facility] Comment on above: Performed By: #### C BC ####[facility] [address] [place], [place] [address]Dr. Cortez Aren MONO # 0.6 103/ul Normal 0.3-0.8 [facility] Comment on above: Performed By: #### C BC ####[facility] [address] [place], [place] [address]Dr. Eleanorvalerie Younger Monocytes/100 WBC (Bld) 5.3 % Normal 1.7-12.0 [facility] Comment on above: Performed By: #### C BC ####[facility] [address] [place], [place] [address]Dr. Eleanorvalerie Aren NEUT # 8.9 103/ul Critically high 1.4-6.5 [facility] Comment on above: Performed By: #### C BC ####[facility] [address] [place], [place] [address]Dr. Cortez Younger Neutrophils/100 WBC (Bld) 76.0 % Critically high 43.0-75.0 [facility] Comment on above: Performed By: #### C BC ####[facility] [address] [place], [place] [address]DrFish Younger Platelet mean volume (Bld) [Entitic vol] 8.9 fL Critically low 9.5-13.5 [facility] Comment on above: Performed By: #### C BC ####[facility] [address] [address]DrFish Younger PLT 414 103/ul Normal 150-450 [facility] Comment on above: Performed By: #### C BC ####[facility] [address] [address]DrFish Younger RBC 5.01 106/ul Normal 4.70-6.10 [facility] Comment on above: Performed By: #### C BC ####[facility] [address] [place] [address]DrFish Younger WBC 11.7 103/ul Critically high 4.0-11.0 [facility] Comment on above: Performed By: #### C BC ####[facility] [address] [place] [address]Dr. Cortez Younger PROF 14(COMP METB)on 022 Albumin [Mass/Vol] 3.8 g/dL Normal 3.4-5.0 [facility] Comment on above: Performed By: #### C BC #### [facility] [address] [place] [address] Dr. Cortez Younger Albumin/Globulin [Mass ratio] 1.3 {ratio} Normal [facility] Comment on above: Performed By: #### C BC #### [facility] [address] [address] [address] Cortez Younger ALP [Catalytic activity/Vol] 95 U/L Normal 46-116 [facility] Comment on above: Performed By: #### C BC #### [facility] [address] [address] [address] Cortez Younger ALT [Catalytic activity/Vol] 25 U/L Normal 16-63 [facility] Comment on above: Performed By: #### C BC #### [facility] [address] [address] [address] Cortez Younger Anion gap [Moles/Vol] 12.7 mmol/L Normal [facility] Comment on above: Performed By: #### C BC #### [facility] [address] [place] [address] Dr. Cortez Younger AST [Catalytic activity/Vol] 18 U/L Normal 15-37 [facility] Comment on above: Performed By: #### C BC #### [facility] [address] [place] [address] Dr. Cortez Younger Bilirubin [Mass/Vol] 0.3 mg/dL Normal 0.2-1.0 [facility] Comment on above: Performed By: #### C BC #### [facility] [address] [place] [address] Dr. Cortez Younger Calcium [Mass/Vol] mg/dL Normal 8.5-10.1 [facility] Comment on above: Performed By: #### C BC #### [facility] [address] [place] [address] Dr. Cortez Younger Chloride [Moles/Vol] 98 mmol/L Normal 98-107 [facility] Comment on above: Performed By: #### C BC #### [facility] [address] [place] [address] Dr. Cortez Younger CO2 [Moles/Vol] 28.9 mmol/L Normal 21.0-32.0 [facility] Comment on above: Performed By: #### C BC #### [facility] [address] [place] [address] Dr. Cortez Younger Creatinine [Mass/Vol] 0.84 mg/dL Normal 0.70-1.30 [facility] Comment on above: Performed By: #### C BC #### [facility] [address] [place] [address] Dr. Cortez Younger EGFR-AF STATELESS >60 Normal >=60 [facility] Comment on above: Performed By: #### C BC #### [facility] [address] [place] [address] Dr. Cortez Younger EGFR-NON AF STATELESS >60 Normal >=60 [facility] Comment on above: Performed By: #### C BC #### [facility] [address] [address] [address] Cortez Younger Globulin (S) [Mass/Vol] 3.0 g/dL [facility] [facility] Comment on above: Performed By: #### C BC #### [facility] [address] [address] [address] Cortez Younger Glucose [Mass/Vol] 104 mg/dL Normal 74-[address] [facility] Comment on above: Performed By: #### C BC #### [facility] [address] [address] [address] Cortez Younger Potassium [Moles/Vol] 3.6 mmol/L Normal 3.5-5.1 [facility] Comment on above: Performed By: #### C BC #### [facility] [address] [place] [address] Dr. Cortez Younger Protein [Mass/Vol] 6.8 g/dL Normal 6.4-8.[address] [facility] Comment on above: Performed By: #### C BC #### [facility] [address] [place] [address] Dr. Cortez Younger Sodium [Moles/Vol] 136 mmol/L Normal 136-145 [facility] Comment on above: Performed By: #### C BC #### [facility] [address] [place] [address] Dr. Cortez Younger Urea nitrogen [Mass/Vol] 6.0 mg/dL Critically low 7.0-18.0 [facility] Comment on above: Performed By: #### C BC #### [facility] [address] [place] [address] Dr. Cortez Younger Urea nitrogen/Creatinin e [Mass ratio] 7.1 mg/mg Normal [facility] Comment on above: Performed By: #### C BC #### [facility] [address] [place] [address] Dr. Cortez Younger Consent for Procedure/Surger yon 10-15-2021 Consent for Procedure/Surgery [id number]: 127 Normal [facility] Patient Educationon 10-15-19 Patient Education Urology [...] these instructions at home: Medicines ? Take tvtt-vry-ikxjhbz and prescription medicines only as told by [...] the blood stops without treatment. ? Take vfxb-qbk-obihhzt and prescription medicines only as told by your health care provider. ? Drink enough fluid to keep your urine clear or pale yellow. This information is not intended to replace advice given to you by your health care provider. Make sure you discuss any questions you have with your health care provider. Document Released: 06/29/2006 Document Revised: 11/23/2019 Document Reviewed: 08/01/2017 [employer] Patient Education ? 2019 [employer] [facility] Urology Office/Clinic Noteon 10-14-2021 Urology Office/Clinic Note [...] [facility] [address] [place] [address]- Additional Instructions: Patient Education Hematuria, Adult Jaret Finley personally scribed for Dr. Graves on 10/14/2021 13:40:09. . Documentation recorded by the Sharonda yao accurately reflects the services(s) I performed and decis (more content not included)... Normal [facility] Comment on above: Result Comment: Elec tronically Signed By: Gustavo Graves Jr., MD\.br\Date and Time Signed: 10/14/21 13:47 EDT\.br\Electronically Co-Signed By: Jaret Benz\.br\Date and Time Co-Signed: 10/14/21 13:40 EDT SURGICAL PATH REPORTon 01-25 SURGICAL PATH REPORT [facility] Department of Pathology [address] [place] [id number] Name: HARISH MCKENNA : 1970 [facility] [id number] Number: Gender: Male Location: [facility] Admit 50 years Attending CRUZITO TOMLINSON JR Age: Provider: Ordering CRUZITO TOMLINSON JR Provider: Consulting: Surgical Pathology Report ACCESSION: COLLECTED DATE/TIME: RECEIVED DATE/TIME: PATHOLOGIST: [id number] 01/23/2021 12:05 EDT 01/24/2021 12:05 EDT ALVIN CADET MD Final Diagnosis Report for [facility], [place] ANTRUM, BIOPSY: - MILD CHRONIC GASTRITIS. [...] report for: [facility], [address] [place] [address]; Print Date/ 01/25/2021 12:34 EDT Number: Time: [facility] Department of Pathology [address] [place] [address] Name: HARISH MCKENNA : 1970 [facility] [id number] Number: Gender: Male Location: [facility] Admit 50 years Attending CRUZITO TOMLINSON JR Age: Provider: Ordering CRUZITO TOMLINSON JR Provider: Consulting: Surgical Pathology Report ACCESSION: COLLECTED DATE/TIME: RECEIVED DATE/TIME: PATHOLOGIST: [id number] 01/23/2021 12:05 EDT 01/24/2021 12:05 EDT ALVIN CADET MD Gross Description PATHOLOGY SERVICES PROVIDED BY [facility] (CLIA #[id number]) in cooperation with [facility] at [address] [place] [address] (CLIA #[id number]) Microscopic Diagnosis NOTE: One or more of the reagents used to perform assays on this specimen MAY have contained components considered to be analyte specific reagents ( ASRs). ASRs have not been cleared or approved by the U.S. Food and Drug Administration. The performance characteristics of these assays have been determined by the Department of Pathology at [facility]. This assay was performed subsequent to the H and E examination. Appropriate positive and negative controls were examined with appropriate reactivity. Codes CPT CODE: 16496 + 28042 Print Date/ 01/25/2021 12:34 EDT Number: Time: Normal [facility] Comment on above: Performed By: #### [id number] #### [facility] Laboratory Services [address] [place], [place] [id number] System Operator: Alvin Cadet MD Vital Signs Date Time Vital Sign Value Performing Clinician Facility 11-01-2024 16:27-0400 Body height 177.8 cm Bubba Ghotra MD Work Phone: [facility] 11-01-2024 16:27-0400 Body mass index (BMI) [Ratio] 20.66 kg/m2 Bubba Ghotra MD Work Phone: [facility] 11-01-2024 16:27-0400 Body weight 65.32 kg Bubba Ghotra MD Work Phone: [facility] 09-28-2024 14:08-0400 Body height 177.8 cm Reba Posada PA Work Phone: [facility] 09-28-2024 14:08-0400 Body mass index (BMI) [Ratio] 20.66 kg/m2 Reba Posada PA Work Phone: [facility] 09-28-2024 14:08-0400 Body weight 65.32 kg Reba Posada PA Work Phone: [facility] 09-28-2024 14:08-0400 Diastolic blood pressure 62 mm[Hg] Reba Posada PA Work Phone: [facility] 09-28-2024 14:08-0400 Respiratory rate 16 /min Reba Posada PA Work Phone: [facility] 09-28-2024 14:08-0400 Systolic blood pressure 102 mm[Hg] Reba Posada PA Work Phone: [facility] 08-30-2024 15:51-0500 Body height 177.8 cm Bubba Ghotra MD Work Phone: [facility] 08-30-2024 15:51-0500 Body mass index (BMI) [Ratio] 20.95 kg/m2 Bubba Ghotra MD Work Phone: [facility] 08-30-2024 15:51-0500 Body weight 66.22 kg Bubba Ghotra MD Work Phone: [facility] 06-07-2024 15:45-0500 Body height 177.8 cm Reba Posada PA Work Phone: [facility] 06-07-2024 15:45-0500 Body mass index (BMI) [Ratio] 18.94 kg/m2 Reba Posada PA Work Phone: [facility] 06-07-2024 15:45-0500 Body weight 59.88 kg Reab Posada PA Work Phone: [facility] 06-07-2024 15:45-0500 Diastolic blood pressure 72 mm[Hg] Reba Posada PA Work Phone: [facility] 06-07-2024 15:45-0500 Heart rate 71 /min Reba Posada PA Work Phone: [facility] 06-07-2024 15:45-0500 Respiratory rate 16 /min Reba Posada PA Work Phone: [facility] 06-07-2024 15:45-0500 SaO2% (BldA) [Mass fraction] 94 % Reba Posada PA Work Phone: [facility] 06-07-2024 15:45-0500 Systolic blood pressure 112 mm[Hg] Reba Posada PA Work Phone: [facility] 05-10-2024 13:14-0400 Body height 177.8 cm [facility] 05-10-2024 13:14-0400 Body mass index (BMI) [Ratio] 19.3 kg/m2 [facility] 05-10-2024 13:14-0400 Body temperature 97.2 [degF] [facility] 05-10-2024 13:14-0400 Body weight 61 kg [facility] 05-10-2024 13:14-0400 Diastolic blood pressure 72 mm[Hg] [facility] 05-10-2024 13:14-0400 Systolic blood pressure 112 mm[Hg] [facility] 04-11-2024 16:32-0400 Body height 177.8 cm Reba Posada PA Work Phone: [facility] 04-11-2024 16:32-0400 Body mass index (BMI) [Ratio] 18.65 kg/m2 Reba Posada PA Work Phone: [facility] 04-11-2024 16:32-0400 Body weight 58.97 kg Reba Posada PA Work Phone: [facility] 04-11-2024 16:32-0400 Diastolic blood pressure 78 mm[Hg] Reba Posada PA Work Phone: [facility] 04-11-2024 16:32-0400 Heart rate 70 /min Reba Posada PA Work Phone: [facility] 04-11-2024 16:32-0400 Respiratory rate 16 /min Reba Posada PA Work Phone: [facility] 04-11-2024 16:32-0400 SaO2% (BldA) [Mass fraction] 96 % Reba Posada PA Work Phone: [facility] 04-11-2024 16:32-0400 Systolic blood pressure 120 mm[Hg] Reba Posada PA Work Phone: [facility] 04-04-2024 16:34-0400 Body height 177.8 cm Bubba Ghotra MD Work Phone: [facility] 04-04-2024 16:34-0400 Body mass index (BMI) [Ratio] 18.37 kg/m2 Bubba Ghotra MD Work Phone: [facility] 04-04-2024 16:34-0400 Body weight 58.06 kg Bubba Ghotra MD Work Phone: [facility] 04-04-2024 16:34-0400 Diastolic blood pressure 80 mm[Hg] Bubba Ghotra MD Work Phone: [facility] 04-04-2024 16:34-0400 Heart rate 71 /min Bubba Ghotra MD Work Phone: [facility] 04-04-2024 16:34-0400 SaO2% (BldA) [Mass fraction] 97 % Bubba Ghotra MD Work Phone: [facility] 04-04-2024 16:34-0400 Systolic blood pressure 140 mm[Hg] Bubba Ghotra MD Work Phone: [facility] 09-17-2023 14:59-0500 Body height 177.8 cm [facility] 09-17-2023 14:59-0500 Body mass index (BMI) [Ratio] 18.8 kg/m2 [facility] 09-17-2023 14:59-0500 Body temperature 98.1 [degF] [facility] 09-17-2023 14:59-0500 Body weight 59.42 kg [facility] 09-17-2023 14:59-0500 Diastolic blood pressure 45 mm[Hg] [facility] 09-17-2023 14:59-0500 Systolic blood pressure 82 mm[Hg] [facility] 03-25-2023 13:30-0400 Body height 177.8 cm Mahnaz Roth Other [facility] [employer] Other 03-25-2023 13:30-0400 Body mass index (BMI) [Ratio] 18.65 kg/m2 Mahnaz Roth Other [facility] [employer] Other 03-25-2023 13:30-0400 Body temperature 98.4 [degF] Mahnaz Roth Other [employer] [facility] Other 03-25-2023 13:30-0400 Body weight 58.97 kg Mahnaz Roth Other [employer] [facility] Other 03-25-2023 13:30-0400 Diastolic blood pressure 87 mm[Hg] Mahnaz Roth Other [employer] Other 03-25-2023 13:30-0400 Systolic blood pressure 135 mm[Hg] Mahnaz Roth Other [employer] Other 12-24-2021 09:50-0400 Blood Pressure Location Gustavo Graves Jr. [facility] 12-24-2021 09:50-0400 Diastolic blood pressure 76 mm[Hg] Gustavo Graves Jr. [facility] 12-24-2021 09:50-0400 Heart rate 68 /min Gustavo Graves Jr. [facility] 12-24-2021 09:50-0400 Systolic blood pressure 132 mm[Hg] Gustavo Star Manley [facility] Encounters Encounter Date Encounter Type Care Provider Facility Start: 11-07-2024 End: 11-07-2024 ambulatory [facility] Work Phone: Start: 11-07-2024 End: 11-07-2024 Patient encounter procedure [facility] Work Phone: Start: 11-01-2024 End: 11-01-2024 Office outpatient visit 25 minutes Bubba Ghotra MD Work Phone: [facility] Comment on above: COPD with acute exac erbation (CMS/HCC) (Primary Dx); Cigarette smoker; Marijuana smoker; Olecranon bursitis of right elbow; Swelling of right ankle joint; Polypharmacy Start: 11-01-2024 End: 11-01-2024 ambulatory BUBBA GHOTRA Not Available Start: 11-01-2024 End: 11-01-2024 Karen Ghotra MD Work Phone: [facility] Start: 11-01-2024 End: 11-01-2024 Karen Ghotra MD Work Phone: [facility] Start: 10-20-2024 End: 10-24-2024 Telephone encounter Bubba Ghotra MD Work Phone: [facility] Comment on above: Care Coordination Start: 10-19-2024 End: 10-20-2024 Telephone encounter Bubba Ghotra MD Work Phone: [facility] Start: 10-17-2024 End: 10-18-2024 Refill Elaina RIGGINS Work Phone: [facility] Comment on above: Cervical radiculopat hy; Sensory disturbance; Muscle spasm; Tremor Start: 09-28-2024 End: 09-28-2024 Office outpatient visit 25 minutes Reba RIGGINS Work Phone: [facility] Comment on above: Multiple sclerosis ( CMS/HCC) (Primary Dx); Other chronic pain; Tremor Start: 09-28-2024 End: 09-28-2024 ambulatory REBA POSADA Not Available Start: 09-14-2024 End: 09-14-[address] [facility] Start: 08-30-2024 End: 08-30-2024 Office outpatient visit 15 minutes Bubba Ghotra MD Work Phone: [facility] Comment on above: Urinary incontinence without sensory awareness; Post-void dribbling; Relapsing remitting multiple sclerosis (CMS/HCC) Start: 08-30-2024 End: 08-30-2024 ambulatory BUBBA GHOTRA Not Available Start: 08-23-2024 End: 08-23-2024 ambulatory [facility] Work Phone: Start: 08-23-2024 End: 08-23-2024 Patient encounter procedure [facility] Work Phone: Start: 08-10-2024 End: 08-10-2024 ambulatory BUBBA GHOTRA Not Available Start: 08-10-2024 End: 08-10-2024 Telemedicine consultation with patient Bubba Ghotra MD Work Phone: [facility] Comment on above: Post-void dribbling; Urinary incontinence without sensory awareness; Relapsing remitting multiple sclerosis (CMS/HCC); Polypharmacy; Cigarette smoker; Underweight Start: 07-21-2024 End: 07-21-2024 Refill Reba RIGGINS Work Phone: [facility] Comment on above: Sensory disturbance; Muscle spasm; Cervical radiculopathy; Tremor Start: 07-11-2024 End: 07-11-2024 Office outpatient visit 25 minutes Bubba Ghotra MD Work Phone: [facility] Comment on above: Primary hypertension (CMS/HCC); Primary insomnia; Mixed hyperlipidemia (CMS/HCC); Protein-calorie malnutrition, moderate (CMS/HCC); Muscle spasm; Venous insufficiency; Gastroesophageal reflux disease without esophagitis Start: 07-11-2024 End: 07-11-2024 ambulatory BUBBA GHOTRA Not Available Start: 07-11-2024 End: 07-11-2024 Bamboo flowsheet Bubba Ghotra MD Work Phone: [facility] Start: 07-11-2024 End: 07-11-2024 Bamboo flowsheet Bubba Ghotra MD Work Phone: [facility] Start: 06-24-2024 End: 06-24-2024 Telephone encounter Bubba Ghotra MD Work Phone: [facility] Start: 06-22-2024 End: 06-22-2024 Telephone encounter Reba RIGGINS Work Phone: [facility] [address] Comment on above: MED FOR MRI Start: 06-07-2024 End: 06-07-2024 ambulatory REBA POSADA Not Available Start: 06-07-2024 End: 06-07-2024 Office outpatient visit 25 minutes Reba RIGGINS Work Phone: [facility] [address] Comment on above: Multiple sclerosis ( CMS/HCC) (Primary Dx); Other chronic pain; Tremor; Neurogenic bladder Start: 05-30-2024 End: 05-30-2024 Refill Kenna Lockett RN Work Phone: [facility] Comment on above: Simple chronic bronc hitis (CMS/HCC) (Primary Dx); Panlobular emphysema (CMS/HCC) Start: 05-27-2024 End: 05-27-2024 Clinisync Result Encounter Generic External Data Provider [facility] External Department Unsolicited Start: 05-27-2024 End: 05-27-2024 Clinisync Result Encounter Generic External Data Provider [facility] External Department Unsolicited Start: 05-16-2024 End: 05-16-2024 Refill Kenna Lockett RN Work Phone: [facility] Comment on above: Insomnia, unspecifie d type (Primary Dx); Relapsing remitting multiple sclerosis (CMS/HCC) Start: 05-10-2024 End: 05-10-2024 [facility] Work Phone: Start: 05-10-2024 End: 05-10-2024 Patient encounter procedure [facility] Work Phone: Start: 04-18-2024 End: 04-19-2024 Refill Elaina RIGGINS Work Phone: [facility] Comment on above: Cervical radiculopat hy; Sensory disturbance Start: 04-15-2024 End: 04-18-2024 Refill Kenna Lockett RN Work Phone: [facility] Comment on above: Venous insufficiency ; Relapsing remitting multiple sclerosis (CMS/HCC) Start: 04-14-2024 End: 04-14-2024 [facility] Work Phone: Start: 04-14-2024 End: 04-14-2024 Patient encounter procedure [facility] Care Work Phone: Start: 04-11-2024 End: 04-11-2024 ambulatory REBA POSADA Not Available Start: 04-11-2024 End: 04-11-2024 Office outpatient visit 25 minutes Reba Posada PA Work Phone: [facility] [address] Comment on above: Multiple sclerosis ( CMS/HCC) (Primary Dx); Neurogenic bladder; Other chronic pain; Tremor Start: 04-11-2024 End: 04-11-2024 Bamboo flowsheet Reba RIGGINS Work Phone: [facility] [address] Start: 04-11-2024 End: 04-11-2024 Bamboo flowsheet Reba Posada PA Work Phone: [facility] [address] Start: 04-05-2024 End: 04-05-2024 Clinisync Result Encounter Elaina Aditya RIGGINS Work Phone: [facility] External Department Unsolicited Start: 04-05-2024 End: 04-05-2024 Clinisync Result Encounter Elaina Aditya PA Work Phone: [facility] Unsolicited Start: 04-04-2024 End: 04-04-2024 Office outpatient visit 25 minutes Bubba Ghotra MD Work Phone: [facility] Comment on above: Primary hypertension (CMS/HCC) (Primary Dx); Mixed hyperlipidemia (CMS/HCC); Simple chronic bronchitis (CMS/HCC); Panlobular emphysema (CMS/HCC); Cigarette smoker; Marijuana smoker; Venous insufficiency; Gastroesophageal reflux disease without esophagitis; Polypharmacy; Underweight Start: 04-04-2024 End: 04-04-2024 ambulatory BUBBA GHOTRA Not Available Start: 04-04-2024 End: 04-04-2024 Bamboo flowsheet Bubba Ghotra MD Work Phone: [facility] Start: 04-04-2024 End: 04-04-2024 Bamboo flowsheet Bubba Ghotra MD Work Phone: [facility] Start: 03-23-2024 End: 03-29-2024 Refill Elaina RIGGINS Work Phone: [facility] Comment on above: Tremor; Cervical radiculopathy Start: 03-04-2024 End: 03-04-[address] [facility] Start: 01-19-2024 End: 01-19-2024 ambulatory [facility] Work Phone: Start: 01-19-2024 End: 01-19-2024 Patient encounter procedure [facility] Pall[facility] Care Work Phone: Start: 12-23-2023 End: 12-23-2023 ambulatory BUBBA GHOTRA Not Available Start: 11-26-2023 End: 11-26-2023 ambulatory BUBBA GHOTRA Not Available Start: 11-18-2023 End: 11-18-2023 ambulatory [facility] Work Phone: Start: 11-18-2023 End: 11-18-2023 Patient encounter procedure [facility] Pall[facility] Care Work Phone: Start: 09-17-2023 End: 09-17-2023 Patient encounter procedure [facility] Palliative Care Work Phone: Start: 08-26-2023 End: 08-29-2023 Non-patient / Non-visit [facility] Work Phone: Start: 08-21-2023 End: 08-21-2023 ambulatory Mahnaz Ira Other [employer] [facility] Other Start: 08-21-2023 Telephone encounter Mahnaz Tucker[facility] Start: 07-22-2023 End: 07-22-2023 ambulatory Mahnaz Tuckerraw Other [facility] Other Start: 07-22-2023 Telephone encounter Mahnaz Tuckerraw [facility] Start: 06-24-2023 End: 06-24-2023 ambulatory Mahnaz Ira Other [facility] Other Start: 06-24-2023 Telephone encounter Mahnaz Tuckerraw [facility] Start: 05-28-2023 End: 05-28-2023 ambulatory Mahnaz Ira Other [facility] Other Start: 05-28-2023 Telephone encounter Mahnaz Ira [facility] Start: 05-19-2023 End: 05-19-2023 ambulatory Mahnaz Ira Other [facility] Other Start: 05-19-2023 Office outpatient vi sit 15 minutes Mahnaz Ira [facility] Start: 04-21-2023 End: 04-21-2023 ambulatory Mahnaz Ira Other [facility] Other Start: 04-21-2023 Office outpatient vi sit 15 minutes Mahnaz Ira [facility] Start: 04-07-2023 End: 04-07-2023 ambulatory Mahnaz Ira Other [facility] Other Start: 04-07-2023 Telephone encounter Mahnaz Ira [facility] Start: 04-02-2023 End: 04-02-2023 ambulatory Mahnaz Ira Other [facility] Other Start: 04-02-2023 Telephone encounter Mahnaz Ira [facility] Start: 04-01-2023 End: 04-01-2023 ambulatory Mahnaz Ira Other [facility] Other Start: 04-01-2023 Telephone encounter Mahnaz Ira [facility] Start: 03-25-2023 End: 03-25-2023 ambulatory Mahnaz Ira Other [facility] Other Start: 03-25-2023 Office outpatient ne w [...] . Fac ility:[facility] Start: 09-16-2022 ambulatory LAMAR TURNER Facili ty:[facility] Start: 06-26-2022 End: 06-27-[address] LISA [...] 12-24-2021 End: 12-25-2021 ambulatory Heri MURRELL Facility:[facility] [place] Start: 12-24-2021 End: 12-24-2021 Patient encounter procedure Gustavo Graves Jr. [facility] Start: 12-17-2021 End: 12-19-[address] DOCTOR BENNETT Facility:[facility] Start: 12-12-2021 End: 12-13-2021 ambulatory LAMAR TURNER Facility:[facility] Start: 12-05-2021 End: 12-06-2021 ambulatory Heri MURRELL [facility] Start: 12-05-2021 End: 12-05-2021 Patient encounter procedure Gustavo Graves Jr. [facility] Start: 12-05-2021 ambulatory Heri MURRELL Facility :[facility] Start: 12-03-2021 End: 12-04-2021 ambulatory REBA BINH Facility:[facility] Start: 10-14-2021 End: 10-15-2021 ambulatory Heri MURRELL Facility:[facility] Start: 09-19-2021 ambulatory Heri MURRELL Facility :[facility] Start: 12-11-2017 End: 12-12-2017 Patient encounter procedure Tunde Das Facility:[facility] Procedures Date Procedure Procedure Detail Performing Clinician Start: 05-27-2024 ALL SODIUM Generic Ex ternal Data Provider Start: 04-05-2024 ALL CBC WITH AUTO DIFF Elaina RIGGINS Work Phone: Start: 10-14-2021 Cystoscopy Gustavo flores Jr. Start: 09-13-2019 Cystoscopy Gustavo flores Jr. Cholecystectomy Gustavo Graves Jr. Counseling Mahnaz corcoran Other Plan of Treatment Date Care Activity Detail Author Start: 04-19-2027 Screening for malign ant neoplasm of colon [facility] Start: 12-29-2024 End: 12-29-2024 Patient encounter procedure 12/29/2024 1:00 PM EDT Office Visit [facility] [address] [place] [address] Reba Posada PA [address] [place], [place] [id number] [facility] Start: 12-22-2024 Medicare Annual Well ness (AWV) Medicare Annual Wellness (AWV) [facility] Start: 11-01-2024 End: 11-01-2024 Patient encounter procedure 11/01/2024 4:30 PM EDT Office Visit [facility] [address] [facility] [address] [place] [address] Bubba Ghotra MD [address] [facility] [address] [place] [address] (Fax) Arrived [facility] Comment on above: Arrived Start: 09-28-2024 End: 09-28-2024 Patient encounter procedure [facility] [address] Start: 09-28-2024 End: 09-28-2025 CBC W Auto Differential panel - Blood CBC auto differential Lab Routine Multiple sclerosis ([facility]) Expected: 09/28/2024 (Approximate), Expires: 09/28/2025 [facility] Comment on above: Expected: 09/28/2024 (Approximate), Expires: 09/28/2025 Start: 09-28-2024 End: 09-28-2025 Comprehensive metabolic 2000 panel - Serum or Plasma Comprehensive metabolic panel Lab Routine Multiple sclerosis ([facility]) Expected: 09/28/2024 (Approximate), Expires: 09/28/2025 [facility] [facility] Comment on above: Expected: 09/28/2024 (Approximate), Expires: 09/28/2025 Start: 09-28-2024 End: 09-28-2025 IgG [Mass/volume] in Serum or Plasma IgG Lab Routine Multiple sclerosis ([facility]) Expected: 09/28/2024 (Approximate), Expires: 09/28/2025 [facility] Healthcare Work Phone: Comment on above: Expected: 09/28/2024 (Approximate), Expires: 09/28/2025 Start: 09-12-2024 End: 09-12-2024 Patient encounter procedure 09/12/2024 2:45 PM EST Consult [facility] [address] [place] [id number] Krishna Hernandez DO [address] [place] [address] [facility] Start: 08-18-2024 End: 08-18-2024 Patient encounter procedure 08/18/2024 3:30 PM EST Office Visit [facility] [address] [place] [address] Bubba Ghotra MD [address] [place] [address] [facility] Start: 07-11-2024 End: 07-11-2024 Patient encounter procedure [facility] Comment on above: Primary hypertension (CMS/HCC); Primary insomnia; Mixed hyperlipidemia (CMS/HCC); Protein-calorie malnutrition, moderate (CMS/HCC) Start: 06-07-2024 End: 06-07-2024 Patient encounter procedure 06/07/2024 3:40 PM EST Office Visit [facility] [place] [facility] [address] [place] [phone] Reba Posada PA [address] [place] [address] [facility] [place] [facility] Start: 05-13-2024 End: 04-12-2025 Sodium [Moles/volume] in Serum or Plasma Sodium Lab Routine Multiple sclerosis (CMS/HCC) Expected: 05/13/2024 (Approximate), Expires: 04/12/2025 [facility] Work Phone: Comment on above: Expected: 05/13/2024 (Approximate), Expires: 04/12/2025 Start: 05-10-2024 End: 05-10-2024 Patient encounter procedure 05/10/2024 1:20 PM EDT Office Visit [facility] [place] [address] [facility] [place] [address] Reba Posada PA [address] [place] [address] [facility] [place] [facility] Start: 04-11-2024 End: 04-11-2024 Patient encounter procedure 04/11/2024 11:20 AM EDT Office Visit [facility] [place] [facility] [place] [address] Reba Posada PA [address] [place] [address] [facility] Start: 04-04-2024 End: 04-04-2024 Patient encounter procedure [facility] Comment on above: Primary hypertension (CMS/HCC); Simple chronic bronchitis (CMS/HCC); Panlobular emphysema (CMS/HCC); Gastroesophageal reflux disease without esophagitis; Mixed hyperlipidemia (CMS/HCC); Former smoker; Polypharmacy; Underweight Start: 1970 Screening for malign ant neoplasm of colon [facility] Immunizations Immunization Date Immunization Notes Care Provider Fa alexa 10-22-2020 SARS-CoV-2 (COVID-19 ) mRNA BNT-162b2 vax Gustavo Graves Jr. [facility] 10-01-2020 SARS-CoV-2 (COVID-19 ) mRNA BNT-162b2 vax Gustavo Graves Jr. [facility] Payers Date Payer Category Payer Medicare (Managed Care) 1.2. [id number] 2024 Medicare [id number] 2019 Medicaid [id number] [id number] 2003 Medicare [id number] .[id number] 1969 Unknown [id number] 2.16.840.1.613007.3.579.2.727 1969 Unknown [id number] 2.16.840.1.015468.3.579.2.727 1969 Unknown [id number] 2.16.840.1.062075.3.579.2.727 1969 Unknown [id number] 2.16.840.1.565395.3.579.2.727 1969 Unknown [id number] 2.16.840.1.237234.3.579.2.727 1969 Unknown [id number] 2.16.840.1.711440.3.579.2.593 1969 Unknown [id number] 2.16.840.1.417507.3.579.2.593 1969 Unknown [id number] 2.16.840.1.488974.3.579.2.593 1969 Unknown [id number] 2.16.840.1.389592.3.579.2.593 1969 Unknown [id number] 2.16.840.1.148779.3.579.2.593 1969 Unknown [id number] 2.16.840.1.285484.3.579.2.593 1969 Unknown [id number] 2.16.840.1.358972.3.579.2.593 1969 Unknown [id number] 2.16.840.1.297954.3.579.2.593 1969 Unknown [id number] 2.16.840.1.226735.3.579.2.593 1969 Unknown [id number] 2.16.840.1.604661.3.579.2.593 1969 Unknown [id number] 2.16.840.1.616550.3.579.2.593 1969 Unknown [id number] 2.16.840.1.138096.3.579.2.593 1969 Unknown [id number] 2.16.840.1.520222.3.579.2.593 1969 Unknown [id number] 2.16.840.1.141485.3.579.2.593 1969 Unknown [id number] 2.16.840.1.735790.3.579.2.593 1969 Unknown [id number] 2.16.840.1.908522.3.579.2.593 1969 Unknown [id number] 2.16.840.1.004885.3.579.2.593 1969 Unknown [id number] 2.16.840.1.174669.3.579.2.593 1969 Unknown [id number] 2.16.840.1.502558.3.579.2.593 1969 Unknown [id number] 2.16.840.1.032161.3.579.2.593 1969 Unknown [id number] 2.16.840.1.041782.3.579.2.128 6 1969 Unknown [id number] 2.16.840.1.950474.3.579.2.128 6 1969 Unknown [id number] 2.16.840.1.946529.3.579.2.125 9 1969 Unknown [id number] 2.16.840.1.649036.3.579.2.125 9 1969 Unknown [id number] 2.16.840.1.503136.3.579.2.125 9 1969 Unknown [id number] 2.16.840.1.520577.3.579.2.125 9 1969 Unknown [id number] 2.16.840.1.795448.3.579.2.125 9 1969 Unknown [id number] 2.16.840.1.687726.3.579.2.125 9 1969 Unknown [id number] 2.16.840.1.740524.3.579.2.125 9 1969 Unknown [id number] 2.16.840.1.020287.3.579.2.125 9 1969 Unknown [id number] 2.16.840.1.349218.3.579.2.125 9 1969 Unknown [id number] 2.16.840.1.316793.3.579.2.125 9 1959 Medicaid [id number] 1960 Medicare [id number] 1960 Self-pay Private Health Insurance Unknown HCAP/HFA/FAP Active [id number] Social History Date Type Detail Facility Start: 10-14-2021 End: 12-23-2023 Tobacco smoking status Ex-smoker (finding) [facility] Start: 12-01-2022 End: 01-23-2023 Sex Assigned At Male [facility] Start: 1970 Sex Assigned At Male [facility] Start: 08-18-2008 End: 08-18-2023 History of tobacco use Current smoker [facility] Start: 08-18-2008 End: 08-18-2023 History of tobacco use Cigarette Smoker [facility] Start: 01-23-2023 End: 12-23-2023 Cigarettes smoked current (pack per day) - Reported 1.5 [facility] Start: 12-23-2023 Tobacco use and exposure Smokeless tobacco non-user [facility] Start: 04-11-2024 End: 11-01-2024 Alcoholic beverage intake Lifetime non-drinker (finding) [facility] [...] heating Very hard [facility] (I/We) worried whesandra er (my/our) food would run out before [...] at Not on file [facility] Tobacco smoking stat us NHIS Unknown if ever smoked [facility] Work Phone: Start: 08-23-2024 End: 11-07-2024 Sex Male (finding) [facility] Functional Status Date Assessment Result Facility 12-24-2021 Functional Status N/A [facility] Clinical Notes 12-05-2021 to 11-01-2024 Bubba Ghotra MD - 11/01/2024 4:30 PM EDTTelephone Encounter - Bubba Ghotra MD - 10/24/2024 8:19 AM EDTTelephone Encounter - Bubba Ghotra MD - 10/24/2024 8:19 AM EDT Note Date & Type Note Facility 11-01-2024 History of Presen t illness Narrative Images from the original note were not included. Patient ID: Harish Mckenna is a 54 y.o. male who presents for: Upper Respiratory Infection Patient complains of symptoms of a URI. Symptoms include congestion, productive cough with yellow colored sputum, shortness of breath, and wheezing. Onset of symptoms was 1 week ago, and has been gradually worsening since that time. Treatment to date: MUCINEX AND NYQUIL . He has also been using his nebulizer and inhalers with no improvement. He has not tested for influenza or covid at home. Pt states he is also having pain in his right elbow with swelling, redness and warmth to the touch for a few weeks. He was taking tylenol with no improvement. He is also complaining of worsening right ankle swelling. He has some usual swelling in this area but his impression is that this is significantly worse. No injury. No specific pain syndrome other than his MS pain. Objective In general the patient is pleasant and in no acute distress. Bilateral ears, canals are within normal limits. Right TM is transparent and somewhat retracted. Left TM is transparent and somewhat retracted. No fluid layer. Bilateral nares demonstrate inflamed mucosa. Oropharynx has moist mucosa there is no specific evidence of thrush. There is mild erythema of the pharynx. Shoddy bilateral anterior cervical adenopathy. No signs of respiratory distress. Patient is speaking full sentences. There are Diffusely decreased but symmetrical breath sounds. No rhonchi or rales are appreciated. Bilateral lower lung field wheezes, moderate in nature Skin is warm and dry The right elbow does demonstrate some mild swelling. It appears to be over the bursa itself. It is nontender to palpation. There is no increased calor or rubor. Flexion is limited by the swelling. The right ankle does have a little bit of swelling. There is no increasing calor or rubor. The calf is nontender and there are no palpable cords. He has adequate plantar and dorsiflexion. The medial and lateral malleoli are nontender to palpation. Visit Vitals Ht 5' 10 Wt 144 lb BMI 20.66 kg/m Smoking Status Former BSA 1.8 m Allergies Allergen Reactions Effexor [Venlafaxine] Other Reaction(s): saw spots, and felt like hallucination Paroxetine Hcl Rash Other Reaction(s): rash Current Outpatient Medications on File Prior to Visit Medication Sig Dispense Refill albuterol (2.5 MG/3ML) 0.083% nebulizer solution Take 3 mL (2.5 mg) by nebulization every 6 (six) hours if needed for wheezing 360 mL 3 ARIPiprazole (Abilify) 5 MG tablet Take 5 mg by mouth Daily baclofen (Lioresal) 20 MG tablet TAKE 1 TABLET (20 MG) BY MOUTH IN THE MORNING AND 1 TABLET (20 MG) IN THE EVENING AND 1 TABLET (20 MG) BEFORE BEDTIME. 90 tablet 2 budesonide-formoterol (Symbicort) 160-4.5 MCG/ACT inhaler Inhale 2 puffs in the morning and 2 puffs before bedtime. 1 each 4 Cannabinoids (medical cannabis) Take 1 each by mouth Daily as needed. clonazePAM (KlonoPIN) 1 MG tablet Take 1 mg by mouth in the morning and 1 mg before bedtime. Docusate Sodium (DSS) 100 MG capsule Take 2 capsules by mouth Daily DULoxetine (Cymbalta) [address] capsule Take 2 capsules by mouth in the morning. ipratropium (Atrovent) 0.06 % nasal spray Administer 2 sprays into each nostril in the morning and 2 sprays before bedtime. 30 mL 4 losartan (Cozaar) 100 MG tablet Take 1 tablet (100 mg) by mouth Daily 90 tablet 1 meclizine (Antivert) 25 MG tablet Take 25 mg by mouth 3 (three) times a day as needed for nausea. metoprolol tartrate (Lopressor) 50 MG tablet Take 1.5 tablets (75 mg) by mouth in the morning and 1.5 tablets (75 mg) before bedtime. 270 tablet 1 naloxone (Narcan) 4 mg/0.1 mL nasal spray Administer 4 mg into affected nostril(s) if needed for opioid reversal. Nebulizers (Compressor/[facility]ebulizer) [facility] Use 4 times per day regularly and every 4 hours as needed for shortness of breath and wheezing as directed 1 each 0 Ocrevus 300 MG/10ML solution Infuse into a venous catheter every 6 (six) months ondansetron ODT (Zofran-ODT) 4 MG disintegrating tablet Take 1 tablet (4 mg) by mouth every 8 (eight) hours if needed for nausea 20 tablet 0 OXcarbazepine (Trileptal) 300 MG tablet Take 1 tablet (300 mg) by mouth at bedtime 30 tablet 2 oxyCODONE (Roxicodone) 15 MG immediate release tablet Take 15 mg by mouth every 6 (six) hours if needed (pain) oxygen (O2) gas Inhale 2-3 L/min continuously via nasal canula oxygen (O2) gas Inhale oxygen via portable oxygen concentrator and nasal canula setting of 3 To maintain pulse ox saturation of 92% pantoprazole (ProtoNix) 40 MG EC tablet Take 1 tablet (40 mg) by mouth in the morning and 1 tablet (40 mg) before bedtime. 180 tablet 1 pregabalin (Lyrica) 200 MG capsule TAKE 1 CAPSULE (200 MG) BY MOUTH IN THE MORNING AND 1 CAPSULE (200 MG) IN THE EVENING AND 1 CAPSULE (200 MG) BEFORE BEDTIME. 90 capsule 2 primidone (Mysoline) 50 MG tablet TAKE 2 TABLETS (100 MG) BY MOUTH AT BEDTIME 60 tablet 2 promethazine (Phenergan) 25 MG tablet Take 25 mg by mouth every 6 (six) hours if needed for nausea. QUEtiapine (SEROquel) 100 MG tablet Take 0.5-1 tablets (50-100 mg) by mouth at bedtime May repeat in about 4 hours upon awakening 90 tablet 1 senna (Senokot) 8.6 MG tablet Take 2 tablets by mouth 2 (two) times a day as needed for constipation sildenafil (Viagra) 100 MG tablet Take 1 tablet (100 mg) by mouth Daily as needed for erectile dysfunction 10 tablet 3 sodium chloride 0.9 % nebulizer solution Take 3 mL by nebulization every 4 (four) hours if needed for shortness of breath (and muus clearance) 600 mL 1 spironolactone (Aldactone) 50 MG tablet Take 1 tablet (50 mg) by mouth Daily 90 tablet 1 No current facility-administered medications on file prior to visit. 1. COPD with acute exacerbation ([facility]) (Primary) Chronic problem with acute exacerbation. Historically he has not needed both antibiotics and steroids to get him under control when he has these. We discussed it is certainly not help and that he is still smoking cigarettes and marijuana. He states he has been using his albuterol nebulizers 4 times daily. He specifically notes he has plenty of this for now. In prescribing a new medication consideration of the following encompasses moderate decision making: the current prescriptions and supplements, the current allergies and medication intolerances, the current medical conditions, and potential drug interactions. Risks, benefits, and reason for starting their medication were discussed. The patient was given a chance to ask questions today and all questions were answered. The patient is to contact us if any other questions arise or if any problems occur with the adjustment in their medication. - cefuroxime (Ceftin) 500 MG tablet; Take 1 tablet (500 mg) by mouth in the morning and 1 tablet (500 mg) before bedtime. Do all this for 7 days. Dispense: 14 tablet; Refill: 0 - predniSONE (Deltasone) 10 MG tablet; Every 2 day tapering dose; 5,5,4,4,3,3,2,2,1,1,0.5,0.5 Dispense: 31 tablet; Refill: 0 2. Cigarette smoker Chronic problem that is unstable. The patient continues to use tobacco And marijuana products or nicotine. Your goal is to quit using tobacco or vapor, as it significantly worsens health risks and complicates treatments. The patient was given a chance to ask questions and they declined medical intervention. 3-5 minutes spent on this discussion. 3. Marijuana smoker As above 4. Olecranon bursitis of right elbow We discussed that is since he will be on steroids anyway this will hopefully calm down this bursitis. If it does not he can let me know and we will get him referred to orthopedics. 5. Swelling of right ankle joint I am suspicious that this is some of his venous insufficiency rather than a specific problem. It is a little asymmetric with the right worse than the left. I do not see any other specific sources. I do not feel the need to send him to the emergency room for DVT evaluation. We did discuss signs and symptoms of DVT and cellulitis and he knows to contact us or go to the emergency room if he develops these. 6. Polypharmacy Chronic problem The patient meets the criteria for polypharmacy; 5 or more prescriptions or multi-morbidity defined as 5 or more diagnoses. Polypharmacy can significantly increase the risk of preventable adverse drug events and negatively impact adherence. Consideration of diverse factors such as clinician agreement, patient perspective, and de-prescribing, as appropriate can improve patient outcomes while simplifying care. This requires longitudinal monitoring as there is at least a moderate risk of morbidity and requires at least a moderate degree of evaluation and management. documented in this encounter [facility] 10-24-2024 Telephone encount er Note You prescription sent [facility] 10-24-2024 Miscellaneous Notes Formattin g of this note might be different from the original. You prescription sent [facility] called back and stated that a PA does not need done if [facility] changes the script because it is a quantity issue. If he changes it to 100mg 0.5-1 tablet that should work with the extra after four hours of wakening. [facility] called, the insurance is now wanting a prior auth done on Harish's QUEtiapine (SEROquel) 50 MG They do not like the amount per day and that it is being taken with the Abilify. ID# [id number] documented in this encounter [facility] 10-24-2024 Telephone encount er Note [facility] called back and stated that a PA does not need done if changes the script because it is a quantity issue. If he changes it to 100mg 0.5-1 tablet that should work with the extra after four hours of wakening. [facility] 10-20-2024 Telephone encount er Note They do not like the amount per day and that it is being taken with the Abilify. ID# [id number] [facility] 10-20-2024 Telephone encount er Note Prescription sent [facility] 10-20-2024 Miscellaneous Notes Formattin g of this note might be different from the original. Prescription sent Corinne from [facility] called, harish is in need of losartan (Cozaar) 100 MG metoprolol tartrate (Lopressor) 50 MG They are asking to be sent in by . They are filling his meds on Thursday. documented in this encounter [facility] 10-19-2024 Telephone encount er Note Corinne from [facility] called, harish is in need of losartan (Cozaar) 100 MG metoprolol tartrate (Lopressor) 50 MG They are asking to be sent in by . They are filling his meds on Thursday. [facility] 10-18-2024 Telephone encount er Note Please send Lyrica. I cannot get it to let me just decline the trileptal. Looks like we discontinued this last visit [facility] 10-18-2024 Miscellaneous Notes Formattin g of this note might be different from the original. Please send Lyrica. I cannot get it to let me just decline the trileptal. Looks like we discontinued this last visit documented in this encounter [facility] 09-28-2024 History of Presen t illness Narrative Subjective Harish Mckenna is a 54 y.o. year old male Chief Complaint Patient presents with Multiple Sclerosis Past Medical History: Diagnosis Date Anxiety Asthma ([facility]) Body mass index (BMI) of 21.0 to 21.9 in adult normal BMI BPH (benign prostatic hyperplasia) Cervical radiculopathy Cigarette smoker 12/01/2022 COPD (chronic obstructive pulmonary disease) ([facility]) ED (erectile dysfunction) Emphysema lung ([facility]) GERD (gastroesophageal reflux disease) Headache Herpes simplex 02/08/2008 Mononeuritis of lower limb 02/19/2012 MS (mitral stenosis) Multiple sclerosis ([facility]) 02/17/2008 Sleep disturbance 03/27/2011 Smoker Past Surgical History: Procedure Laterality Date KNEE SURGERY Left 04/2013 arthroscopy - [facility] OTHER SURGICAL HISTORY 11[place]20[place] [facility] [place] LAP,CHOLECYSTECTOMY 11/16/2013 TONSILLECTOMY WISDOM TOOTH EXTRACTION Family History Problem Relation Name Age of Onset Leukemia Father Chronic Prostate cancer Father Other (Bladder cancer) Father Tuberculosis Father Social History Tobacco Use Smoking status: Former Current packs/day: 0.00 Average packs/day: 1.5 packs/day for 15.0 years (22.5 ttl pk-yrs) Types: Cigarettes Start date: 08/18/2008 Quit date: 08/18/2023 Years since quittin.1 Smokeless tobacco: Never Tobacco comments: 21-30 cigs/day - not currently smoking 11/03/23 Substance Use Topics Alcohol use: Never Comment: Caffiene intake - 3-4 cans Pepsi daily Medication Documentation Review Audit Reviewed by Adia Laurent MA (Mr Teacher) on 09/28/24 at 1417 Medication Order Taking? Sig Documenting Provider Last Dose Status albuterol (2.5 MG/3ML) 0.083% nebulizer solution [id number] Take 3 mL (2.5 mg) by nebulization every 6 (six) hours if needed for wheezing Bubba Ghotra MD 08/30/24 2359 ARIPiprazole (Abilify) 5 MG tablet [id number] No Take 5 mg by mouth Daily Historical Provider, Taking Active baclofen (Lioresal) 20 MG tablet [id number] Take 1 tablet (20 mg) by mouth in the morning and 1 tablet (20 mg) in the evening and 1 tablet (20 mg) before bedtime. GILSON James 08/30/24 2359 budesonide-formoterol (Symbicort) 160-4.5 MCG/ACT inhaler [id number] Inhale 2 puffs in the morning and 2 puffs before bedtime. Bubba Ghotra MD Active Cannabinoids (medical cannabis) [id number] No Take 1 each by mouth Daily as needed. Bubba Ghotra MD Taking Active clonazePAM (KlonoPIN) 1 MG tablet [id number] No Take 1 mg by mouth in the morning and 1 mg before bedtime. Taking Active Docusate Sodium (DSS) 100 MG capsule [id number] Take 2 capsules by mouth Daily Active DULoxetine (Cymbalta) [address] capsule [id number] No Take 2 capsules by mouth in the morning. Historical Provider, Taking Active ipratropium (Atrovent) 0.06 % nasal spray [id number] Administer 2 sprays into each nostril in the morning and 2 sprays before bedtime. Bubba Ghotra MD Active losartan (Cozaar) 100 MG tablet [id number] Take 1 tablet (100 mg) by mouth Daily Bubba Ghotra MD Active meclizine (Antivert) 25 MG tablet [id number] No Take 25 mg by mouth 3 (three) times a day as needed for nausea. Historical Provider, Taking Active metoprolol tartrate (Lopressor) 50 MG tablet [id number] Take 1.5 tablets (75 mg) by mouth in the morning and 1.5 tablets (75 mg) before bedtime. Bubba Ghotra MD Active naloxone (Narcan) 4 mg/0.1 mL nasal spray [id number] No Administer 4 mg into affected nostril(s) if needed for opioid reversal. Historical Provider, Taking Active Nebulizers (Compressor/Nebulizer) [facility] [id number] No Use 4 times per day regularly and every 4 hours as needed for shortness of breath and wheezing as directed Bubba Ghotra MD Taking Active Ocrevus 300 MG/10ML solution [id number] No Infuse into a venous catheter every 6 (six) months Bubba Ghotra MD Taking Active ondansetron ODT (Zofran-ODT) 4 MG disintegrating tablet [id number] Take 1 tablet (4 mg) by mouth every 8 (eight) hours if needed for nausea Bubba Ghotra MD Active OXcarbazepine (Trileptal) 300 MG tablet [id number] Take 1 tablet (300 mg) by mouth at bedtime GILSON James 08/30/24 7739 oxyCODONE (Roxicodone) 15 MG immediate release tablet [id number] Take 15 mg by mouth every 6 (six) hours if needed (pain) Bubba Ghotra MD Active oxygen (O2) gas [id number] No Inhale 2-3 L/min continuously via nasal canula Taking Active oxygen (O2) gas [id number] No Inhale oxygen via portable oxygen concentrator and nasal canula setting of 3 To maintain pulse ox saturation of 92% Bubba Ghotra MD Taking Active pantoprazole (ProtoNix) 40 MG EC tablet [id number] Take 1 tablet (40 mg) by mouth in the morning and 1 tablet (40 mg) before bedtime. Bubba Ghotra MD Active pregabalin (Lyrica) 200 MG capsule [id number] Take 1 capsule (200 mg) by mouth in the morning and 1 capsule (200 mg) in the evening and 1 capsule (200 mg) before bedtime. GILSON James 08/30/24 2359 primidone (Mysoline) 50 MG tablet [id number] Take 2 tablets (100 mg) by mouth at bedtime GILSON James 08/30/24 2359 promethazine (Phenergan) 25 MG tablet [id number] No Take 25 mg by mouth every 6 (six) hours if needed for nausea. Stan Blanchard MD Taking Active QUEtiapine (SEROquel) 50 MG tablet [id number] Take 1-2 tablets (50-100 mg) by mouth at bedtime May repeat in about 4 hours upon awakening Bubba Ghotra MD Active senna (Senokot) 8.6 MG tablet [id number] No Take 2 tablets by mouth 2 (two) times a day as needed for constipation Bubba Ghotra MD Taking Active sildenafil (Viagra) 100 MG tablet [id number] Take 1 tablet (100 mg) by mouth Daily as needed for erectile dysfunction Bubba Ghotra MD Active sodium chloride 0.9 % nebulizer solution [id number] Take 3 mL by nebulization every 4 (four) hours if needed for shortness of breath (and muus clearance) Bubba Ghotra MD Active spironolactone (Aldactone) 50 MG tablet [id number] Take 1 tablet (50 mg) by mouth Daily Bubba Ghotra MD Active HPI Multiple Sclerosis -MRI's to review -on Ocrevus -next infusion scheduled in November -fatigue and weakness has worsened -states he tries to get out and walk down his sidewalk daily -muscle and nerve pain is the same, denies worsening -most pronounced to his legs, arms and feet -constant burning sensations in legs, feet, and arms -states wearing socks even hurts -follows with Palliative care at [facility], prescribed Oxycodone and was recently increased -tremors in the arms and leg are the same -states some days can be worse than others -reports blurred vision is getting worse -recently had a eye appt and failed peripheral, denied going to specialist -states he is having severe bladder issues -balance is poor -uses cane and rollator to ambulate -has a electric wheelchair he uses PRN -denies any recent falls ROS Review of Systems Constitutional: Positive for fatigue. Eyes: Positive for visual disturbance. Respiratory: Negative. Cardiovascular: Negative. Gastrointestinal: Negative. Musculoskeletal: Positive for gait problem. Neurological: Positive for tremors, weakness and numbness. Objective Visit Vitals BP 102/62 Resp 16 Ht 5' 10 Wt 144 lb BMI 20.66 kg/m Smoking Status Former BSA 1.8 m Neurological Exam Mental Status Awake, alert and oriented to person, place and time. Recent and remote memory are intact. Speech is normal. Language is fluent with no aphasia. Attention and concentration are normal. Fund of knowledge is appropriate for level of education. Cranial Nerves CN II: Visual acuity is normal. Visual parry full to confrontation. CN III, IV, : Extraocular movements intact bilaterally. Normal lids and orbits bilaterally. Pupils equal round and reactive to light bilaterally. CN V: Facial sensation is normal. CN VII: Full and symmetric facial movement. CN VIII: Hearing is normal. CN XI: Shoulder shrug strength is normal. Motor Normal muscle bulk throughout. Normal muscle tone. No abnormal involuntary movements. Gait Slow and ataxic, ambulates with cane. Motor Examination RUE Strength deltoid, biceps, triceps, wrist extensors, wrist extensors, wrist flexor, chore worker strength 5/5. LUE Strength deltoid, biceps, triceps, wrist extensors, wrist extensors, wrist flexor, chore worker strength 5/5. RLE Strength illopsoas, quadriceps, tibialis anterior, and gastrocnemius strength 3/5. LLE Strength illopsoas, quadriceps, tibialis anterior, and gastrocnemius strength 3/5. Tone Normal tone x4 extremities. limited ROM in upper and lower extremities due to weakness and pain. 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 He was previously on Tysabri but he reports he had insurance issue, and he did not take DMT for four years. He was started on Aubagio and had progression of disease. He has numbness and tingling to extremities. He has vision changes, neurogenic bladder symptoms but also has been following with urologist for prostate issues. Taking oxybutynin for bladder urgency, but this was causing blurry vision. MRI brain 11/2019 revealed 2 areas of active demyelination. He received IV steroids with no significant improvement. He continues with right leg weakness. He was also seen by his eye doctor and no abnormalities were found. Patient was experiencing worsening in symptoms and MRIs were updated and patient was sent for IV steroids in 12/2021. He has had increase in fatigue, weakness, blurred vision, and paresthesias. He continues with weakness with ambulating and chronic pain and follows with palliative care. Updated MRIs 06/2024 were stable and are noted below. Patient continues with sharp pain down his bilateral lower extremities, greater on the right versus the left. This has not responded to Lyrica increase. He has been on Zonegran and amitriptyline in the past. His symptoms persist mainly to his legs. He continues to use a cane. Trileptal was decreased due to low sodium levels and he has not noticed worsening with decreased dose. Sodium has since improved with lower dose. Unclear if trileptal is providing much benefit and patient can trial off of this to limit medication burden. He was given prednisone taper at last visit without much benefit. Overall, patient continues with chronic symptoms. Chronic Pain Patient with chronic pain to his neck and back. He was weaned off of his Oxycodone. He continues with pain and reports his symptoms are persisting and limiting his mobility. He was discharged from pain management for using his medical marijuana card. He is now being treated with Oxycodone by Palliative care. Unfortunately his symptoms persist. Per patient, palliative care recently increased oxycodone. Tremor He is experiencing a tremor to his hands R>L. He has had benefit with primidone increase in the past. MRIs Brain MRI 06/22/2024: no acute changes. Multiple T2 signal abnormality throughout the supratentorial white matter, compatible with patient's diagnosis of multiple sclerosis, stable compared to prior study Cervical spine MRI 06/22/2024: stable demyelinating lesions in the cervical spine, mild to moderate degenerative changes of the cervical spine in particular at the level of C4-C5 and C5-C6 Thoracic spine MRI 06/22/2024: no significant neuroforaminal narrowing or canal stenosis in thoracic spine MRI of the brain 10/31/22: revealed no new lesions. Cervical spine MRI 01/17/2022 with and without contrast: revealed no spinal cord lesions to suggest demyelinating process. Thoracic spine MRI 01/17/2022 with and without contrast: revealed no abnormal signal or enhancement within the spinal cord suggest demyelinating process. Brain MRI with and without contrast 01/03/2022: revealed interval increase in size of lesion within the supraventricular deep white matter of the posterior right frontal lobe with restricted diffusion suggestive of active demyelination, however, no enhancement. A second lesion within the supraventricular deep white matter of the posterior left frontal lobe demonstrates restricted diffusion which is suggestive of active demyelination with no appreciable change in size or enhancement. MRI of the cervical and thoracic spine 07/31/2020: revealed no new or active lesions. MRI brain 03/2021: revealed no new or active lesions. MRI brain 06/2020: revealed no new or active lesions. Blood work 05/27/2024: Sodium 144 04/05/2024 : Vitamin B12 439, Folate 5.40, Immunoglobulin G 578, Sodium 130, TSH 1.375, free T4 0.86, UA negative Carotid ultrasound 05/2021: unremarkable. Labs from 07/24/2021: lymphocytes at 2.0. PLAN I reviewed MRIs with patient. I will update blood work in regards to MS therapy Patient can trial off trileptal to assess the need for medication and reduce unnecessary medications. If his neuropathic pain increases, he was advised to resume. Continue baclofen 20mg PO TID for muscle spasm Continue primidone 50mg 2 tabs PO at bedtime for tremor Continue lyrica 200mg PO TID for neuropathic pain [facility] followed at time of refills Patient to follow up with this clinic in 2-3 months or sooner for new or worsening symptoms documented in this encounter [facility] 08-30-2024 History of Presen t illness Narrative Patient ID: Harish Mckenna is a 54 y.o. male who presents for: Urinary Incontinence This is a rmuv-sm-step visit. Patient complains of urinary incontinence. This has been present for a few years. He leaks urine with with urge, with a full bladder. Patient describes the symptoms as sensation of incomplete emptying of bladder and urge to urinate with little or no warning. Factors associated with symptoms include MS . Review of Systems Constitutional: Negative for chills and fever. Respiratory: Negative for cough, shortness of breath and wheezing. Cardiovascular: Negative for chest pain and palpitations. Gastrointestinal: Negative for abdominal pain. Genitourinary: Positive for urgency. Negative for frequency. Objective The patient is pleasant and in no acute distress The patient has good eye contact and clear speech Visit Vitals Ht 5' 10 BMI 18.94 kg/m Smoking Status Former BSA 1.72 m Allergies Allergen Reactions Effexor [Venlafaxine] Other Reaction(s): saw spots, and felt like hallucination Paroxetine Hcl Rash Other Reaction(s): rash Current Outpatient Medications on File Prior to Visit Medication Sig Dispense Refill albuterol (2.5 MG/3ML) 0.083% nebulizer solution Take 3 mL (2.5 mg) by nebulization every 6 (six) hours if needed for wheezing 360 mL 3 ARIPiprazole (Abilify) 5 MG tablet Take 5 mg by mouth Daily baclofen (Lioresal) 20 MG tablet Take 1 tablet (20 mg) by mouth in the morning and 1 tablet (20 mg) in the evening and 1 tablet (20 mg) before bedtime. 90 tablet 2 budesonide-formoterol (Symbicort) 160-4.5 MCG/ACT inhaler Inhale 2 puffs in the morning and 2 puffs before bedtime. 1 each 4 Cannabinoids (medical cannabis) Take 1 each by mouth Daily as needed. clonazePAM (KlonoPIN) 1 MG tablet Take 1 mg by mouth in the morning and 1 mg before bedtime. Docusate Sodium (DSS) 100 MG capsule Take 2 capsules by mouth Daily DULoxetine (Cymbalta) [address] capsule Take 2 capsules by mouth in the morning. ipratropium (Atrovent) 0.06 % nasal spray Administer 2 sprays into each nostril in the morning and 2 sprays before bedtime. 30 mL 4 losartan (Cozaar) 100 MG tablet Take 1 tablet (100 mg) by mouth Daily 90 tablet 1 meclizine (Antivert) 25 MG tablet Take 25 mg by mouth 3 (three) times a day as needed for nausea. metoprolol tartrate (Lopressor) 50 MG tablet Take 1.5 tablets (75 mg) by mouth in the morning and 1.5 tablets (75 mg) before bedtime. 270 tablet 1 naloxone (Narcan) 4 mg/0.1 mL nasal spray Administer 4 mg into affected nostril(s) if needed for opioid reversal. Nebulizers (Compressor[facility]ebulizer) [facility] Use 4 times per day regularly and every 4 hours as needed for shortness of breath and wheezing as directed 1 each 0 Ocrevus 300 MG/10ML solution Infuse into a venous catheter every 6 (six) months ondansetron ODT (Zofran-ODT) 4 MG disintegrating tablet Take 1 tablet (4 mg) by mouth every 8 (eight) hours if needed for nausea 20 tablet 0 OXcarbazepine (Trileptal) 300 MG tablet Take 1 tablet (300 mg) by mouth at bedtime 30 tablet 2 oxyCODONE (Roxicodone) 15 MG immediate release tablet Take 15 mg by mouth every 6 (six) hours if needed (pain) oxygen (O2) gas Inhale 2-3 L/min continuously via nasal canula oxygen (O2) gas Inhale oxygen via portable oxygen concentrator and nasal canula setting of 3 To maintain pulse ox saturation of 92% pantoprazole (ProtoNix) 40 MG EC tablet Take 1 tablet (40 mg) by mouth in the morning and 1 tablet (40 mg) before bedtime. 180 tablet 1 pregabalin (Lyrica) 200 MG capsule Take 1 capsule (200 mg) by mouth in the morning and 1 capsule (200 mg) in the evening and 1 capsule (200 mg) before bedtime. 90 capsule 2 primidone (Mysoline) 50 MG tablet Take 2 tablets (100 mg) by mouth at bedtime 60 tablet 2 promethazine (Phenergan) 25 MG tablet Take 25 mg by mouth every 6 (six) hours if needed for nausea. QUEtiapine (SEROquel) 50 MG tablet Take 1-2 tablets (50-100 mg) by mouth at bedtime May repeat in about 4 hours upon awakening 180 tablet 1 senna (Senokot) 8.6 MG tablet Take 2 tablets by mouth 2 (two) times a day as needed for constipation sodium chloride 0.9 % nebulizer solution Take 3 mL by nebulization every 4 (four) hours if needed for shortness of breath (and muus clearance) 600 mL 1 spironolactone (Aldactone) 50 MG tablet Take 1 tablet (50 mg) by mouth Daily 90 tablet 1 [DISCONTINUED] QUEtiapine (SEROquel) 50 MG tablet Take 1-2 tablets (50-100 mg) by mouth at bedtime May repeat in about 4 hours upon awakening 180 tablet 1 [DISCONTINUED] budesonide-formoterol (Symbicort) 160-4.5 MCG/ACT inhaler Inhale 2 puffs in the morning and 2 puffs before bedtime. 1 each 3 [DISCONTINUED] diazePAM (Valium) 5 MG tablet Take 1 tablet (5 mg) by mouth 1 time for 1 dose To take 30 minutes 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, must have a drivers' cash clerk 1 tablet 0 [DISCONTINUED] ipratropium (Atrovent) 0.06 % nasal spray Administer 2 sprays into each nostril in the morning and 2 sprays before bedtime. 15 mL 1 [DISCONTINUED] ondansetron ODT (Zofran-ODT) 4 MG disintegrating tablet Take 4 mg by mouth every 8 (eight) hours if needed for nausea. [DISCONTINUED] oxyCODONE (Roxicodone) 10 MG immediate release tablet Take 10 mg by mouth every 6 (six) hours if needed for severe pain [DISCONTINUED] sodium chloride 0.9 % nebulizer solution Take 3 mL by nebulization every 4 (four) hours if needed for shortness of breath (and muus clearance) 600 mL 0 No current facility-administered medications on file prior to visit. 1. Urinary incontinence without sensory awareness This is a continuing problem for him. He got we have had of the urinary incontinence supplies and therefore has not had them ordered for a bit. He is also invested privately chucks for putting underneath him in a car in case he does leak which happens occasionally when someone else is driving him as he does not drive. He pretty much takes a change a close with him anytime he is going out for any length of time. He has previously tried several of the bladder antispasmodic drugs. I certify that I had a [id number] encounter with this patient at [facility] office visit. Due to this medical condition the patient requires DME. I certify that based on my findings The DME ordered is medically necessary for this patient. This has been discussed with the patient and/or their financial representative and mutually agreed upon. 2. Post-void dribbling We discussed and this is probably has 2 mechanisms both the EMS and he may have BPH. He has not had a digital rectal exam in some time. We discussed the importance of him getting in for wellness and we would do the digital rectal exam at that time. 3. Relapsing remitting multiple sclerosis (CMS/HCC) Chronic problem that is still active but for him relatively stable. He actually looks better here today he has been able to cut a little bit of weight on. documented in this encounter [facility] 08-10-2024 History of Presen t illness Narrative Images from the original note were not included. Patient ID: Harish Mckenna is a 54 y.o. male who presents for: This note is in error. Harish was unable to connect to the telemedicine visit. Due to technical difficulties the visit can not be deleted out of the system. documented in this encounter [facility] 07-21-2024 Telephone encount er Note I called the patient and he is still taking the Trileptal 1 po at bedtime. [facility] 07-21-2024 Miscellaneous Notes Formattin g of this note might be different from the original. I called the patient and he is still taking the Trileptal 1 po at bedtime. Please advise on Primidone Rx before sending. The last office visit just mentions 2 po at bedtime but the last refill sent is 1 po qam, 2 po at bedtime. Also his last office visit said to stop Trileptal and to resume if symptoms worsen. documented in this encounter [facility] 07-21-2024 Telephone encount er Note Please advise on Primidone Rx before sending. The last office visit just mentions 2 po at bedtime but the last refill sent is 1 po qam, 2 po at bedtime. Also his last office visit said to stop Trileptal and to resume if symptoms worsen. [facility] 07-11-2024 History of Presen t illness Narrative Images from the original note were not included. Patient ID: Harish Mckenna is a 54 y.o. male who presents for: Hypertension Patient is here for follow-up of elevated blood pressure. He is not exercising and is not adherent to a low-salt diet. Blood pressure is well controlled at home. Cardiac symptoms: dyspnea. Patient denies chest pain, irregular heart beat, and palpitations. Cardiovascular risk factors: advanced age (older than 55 for men, 65 for women), hypertension, male gender, sedentary lifestyle, and smoking/ tobacco exposure. Use of agents associated with hypertension: none. History of target organ damage: none. COPD He/She presents for evaluation and treatment of COPD. The patient is currently having symptoms / an exacerbation. Current symptoms include chronic dyspnea, non-productive cough, and cough productive of clear sputum in minimal amounts. Symptoms have been present since a week ago and have been gradually worsening. He denies wheezing, chills, and fever. Patient currently is on oxygen at 3 L/min per nasal cannula.. The patient has been hospitalized for this condition before. He currently smokes 1.5 packs per year. The patient is experiencing exercise intolerance (with almost all activities). GERD [place] complains of heartburn. This has been associated with no other symptoms. He/She denies belching and eructation, difficulty swallowing, and dysphagia. Symptoms have been present for several years . He/She denies dysphagia. . He/She denies melena, hematochezia, hematemesis, and coffee ground emesis. Onset of symptoms has been several years. How many hours of sleep is patient getting on average night: 3-4 How long does it take patient to get to sleep each night: 1-2 hours Does he/she have trouble falling asleep: yes Does he/she have trouble maintaining sleep: yes Does patient have good sleep hygiene: yes Review of Systems Constitutional: Negative for activity change and fatigue. Respiratory: Negative for cough, shortness of breath and wheezing. Cardiovascular: Negative for chest pain, palpitations and leg swelling. Neurological: Negative for light-headedness and headaches. Objective The patient is pleasant and in no acute distress. Thin. The neck is supple and trachea is midline. No masses are appreciated. The heart is regular rate and rhythm without S3, S4. No murmur. The patient has normal respiratory pattern demonstrates mildly prolonged expiration. The breath sounds are diffusely decreased but symmetrical without evidence of rhonchi or rales. No wheezing. The skin is warm and dry. The lower extremities have 1+ edema. The patient has good eye contact and speech is clear. Appropriate affect. Visit Vitals Smoking Status Former Allergies Allergen Reactions Effexor [Venlafaxine] Other Reaction(s): saw spots, and felt like hallucination Paroxetine Hcl Rash Other Reaction(s): rash Current Outpatient Medications on File Prior to Visit Medication Sig Dispense Refill albuterol (2.5 MG/3ML) 0.083% nebulizer solution Take 3 mL (2.5 mg) by nebulization every 6 (six) hours if needed for wheezing 360 mL 3 ARIPiprazole (Abilify) 5 MG tablet Take 5 mg by mouth Daily budesonide-formoterol (Symbicort) 160-4.5 MCG/ACT inhaler Inhale 2 puffs in the morning and 2 puffs before bedtime. 1 each 3 Cannabinoids (medical cannabis) Take 1 each by mouth Daily as needed. clonazePAM (KlonoPIN) 1 MG tablet Take 1 mg by mouth in the morning and 1 mg before bedtime. 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 ipratropium (Atrovent) 0.06 % nasal spray Administer 2 sprays into each nostril in the morning and 2 sprays before bedtime. 15 mL 1 meclizine (Antivert) 25 MG tablet Take 25 mg by mouth 3 (three) times a day as needed for nausea. naloxone (Narcan) 4 mg/0.1 mL nasal spray Administer 4 mg into affected nostril(s) if needed for opioid reversal. Nebulizers (Compressor/Nebulizer) [facility] Use 4 times per day regularly and every 4 hours as needed for shortness of breath and wheezing as directed 1 each 0 Ocrevus 300 MG/10ML solution Infuse into a venous catheter every 6 (six) months ondansetron ODT (Zofran-ODT) 4 MG disintegrating tablet Take 4 mg by mouth every 8 (eight) hours if needed for nausea. OXcarbazepine (Trileptal) 300 MG tablet Take 1 tablet (300 mg) by mouth at bedtime 30 tablet 2 oxyCODONE (Roxicodone) 10 MG immediate release tablet Take 10 mg by mouth every 6 (six) hours if needed for severe pain oxygen (O2) gas Inhale 2-3 L/min continuously via nasal canula oxygen (O2) gas Inhale oxygen via portable oxygen concentrator and nasal canula setting of 3 To maintain pulse ox saturation of 92% pregabalin (Lyrica) 200 MG capsule TAKE ONE CAPSULE BY MOUTH THREE TIMES A DAY ( IN THE MORNING , IN THE EVENING , AND BEFORE BEDTIME ) 90 capsule 2 primidone (Mysoline) 50 MG tablet TAKE ONE TABLET BY MOUTH DAILY IN THE MORNING AND TWO TABLETS DAILY AT BEDTIME 90 tablet 2 promethazine (Phenergan) 25 MG tablet Take 25 mg by mouth every 6 (six) hours if needed for nausea. QUEtiapine (SEROquel) 50 MG tablet Take 1-2 tablets (50-100 mg) by mouth at bedtime May repeat in about 4 hours upon awakening 180 tablet 1 senna (Senokot) 8.6 MG tablet Take 2 tablets by mouth 2 (two) times a day as needed for constipation sodium chloride 0.9 % nebulizer solution Take 3 mL by nebulization every 4 (four) hours if needed for shortness of breath (and muus clearance) 600 mL 0 No current facility-administered medications on file prior to visit. 1. Primary hypertension (CMS/HCC) Chronic problem, stable, to goal - metoprolol tartrate (Lopressor) 50 MG tablet; Take 1.5 tablets (75 mg) by mouth in the morning and 1.5 tablets (75 mg) before bedtime. Dispense: 270 tablet; Refill: 1 - losartan (Cozaar) 100 MG tablet; Take 1 tablet (100 mg) by mouth Daily Dispense: 90 tablet; Refill: 1 2. Primary insomnia Chronic problem they already has a prescriptions for. He is still waking several times during the night. I did again stressed to him to try not to smoke in the evening for a couple hours prior to bedtime. Nicotine is a stimulant. 3. Mixed hyperlipidemia (CMS/HCC) 4. Protein-calorie malnutrition, moderate (CMS/HCC) We discussed and while he has gained a little bit Of weight he still has very little muscle mass And is thin.. he is really not attempting to exercise on any regular basis including basic chair exercises. 5. Muscle spasm In prescribing a renewal to their current medication, consideration of the following encompasses moderate decision making; the current prescriptions and supplements, the current allergies and medication intolerances, current medical conditions, and potential drug interactions. Any changes to risks, benefits, and reason for renewing their current medication due to the above were discussed. The patient was given a chance to ask questions today and all questions were answered. The patient is to contact us if any other questions arise or if any problems occur. (Utilizing the original 1994/1996 guidelines or the 2020 office/outpatient code guidelines for selecting the level of E/M service, In both sets of guidelines, prescription drug management appears in the moderate medical decision making (MDM) row. Neither the original guidelines nor the new guidelines state that a new prescription or change is needed in order to credit prescription drug management) - baclofen (Lioresal) 20 MG tablet; Take 2 tablets (40 mg) by mouth in the morning and 2 tablets (40 mg) before bedtime. 6. Venous insufficiency Chronic problem. He states there is too much pain with wearing compression hose so we are sort of dependent on the spironolactone. - spironolactone (Aldactone) 50 MG tablet; Take 1 tablet (50 mg) by mouth Daily Dispense: 90 tablet; Refill: 1 7. Gastroesophageal reflux disease without esophagitis Chronic problem, stable with his medications. - pantoprazole (ProtoNix) 40 MG EC tablet; Take 1 tablet (40 mg) by mouth in the morning and 1 tablet (40 mg) before bedtime. Dispense: 180 tablet; Refill: 1 8. Polypharmacy Chronic problem The patient meets the criteria for polypharmacy; 5 or more prescriptions or multi-morbidity defined as 5 or more diagnoses. Polypharmacy can significantly increase the risk of preventable adverse drug events and negatively impact adherence. Consideration of diverse factors such as clinician agreement, patient perspective, and de-prescribing, as appropriate can improve patient outcomes while simplifying care. This requires longitudinal monitoring as there is at least a moderate risk of morbidity and requires at least a moderate degree of evaluation and management. documented in this encounter [facility] 06-24-2024 Telephone encount er Note RX sent [facility] 06-24-2024 Miscellaneous Notes Formattin g of this note might be different from the original. RX sent documented in this encounter [facility] 06-22-2024 Telephone encount er Note PATIENT CALLS ASKING FOR ANOTHER REFILL OF VALIUM FOR HIS MRI FOR TOMORROW. HIS MRI IS AT 2:30 PM ON 06/23/2024 BUT HAS TO LEAVE BY 2:00... ARE YOU ABLE TO SEND THIS IN FOR HIM? # [phone] [facility] 06-22-2024 Miscellaneous Notes Formattin g of this note might be different from the original. PATIENT CALLS ASKING FOR ANOTHER REFILL OF VALIUM FOR HIS MRI FOR TOMORROW. HIS MRI IS AT 2:30 PM ON 06/23/2024 BUT HAS TO LEAVE BY 2:00... ARE YOU ABLE TO SEND THIS IN FOR HIM? CB # [phone] documented in this encounter [facility] 05-16-2024 History of Presen t illness Narrative Pt lm, requests rx for Seroquel documented in this encounter [facility] 04-15-2024 History of Presen t illness Narrative SW spoke to pt, needs rx for Spironolactone. documented in this encounter [facility] 04-04-2024 History of Presen t illness Narrative Images from the original note were not included. Patient ID: Harish Mckenna is a 54 y.o. male who presents for: Hypertension Patient is here for follow-up of elevated blood pressure. He is not exercising and is not adherent to a low-salt diet. Blood pressure is well controlled at home. Cardiac symptoms: dyspnea. Patient denies chest pain, irregular heart beat, and palpitations. Cardiovascular risk factors: advanced age (older than 55 for men, 65 for women), hypertension, male gender, sedentary lifestyle, and smoking/ tobacco exposure. Use of agents associated with hypertension: none. History of target organ damage: none. COPD He/She presents for evaluation and treatment of COPD. The patient is currently having symptoms / an exacerbation. Current symptoms include chronic dyspnea, non-productive cough, and cough productive of clear sputum in minimal amounts. Symptoms have been present since a week ago and have been gradually worsening. He denies wheezing, chills, and fever. Patient currently is on oxygen at 3 L/min per nasal cannula.. The patient has been hospitalized for this condition before. He currently smokes 1.5 packs per year. The patient is experiencing exercise intolerance (with almost all activities). MARIE Wood complains of heartburn. This has been associated with no other symptoms. He/She denies belching and eructation, difficulty swallowing, and dysphagia. Symptoms have been present for several years . He/She denies dysphagia. . He/She denies melena, hematochezia, hematemesis, and coffee ground emesis. Onset of symptoms has been several years. How many hours of sleep is patient getting on average night: 3-4 How long does it take patient to get to sleep each night: 1-2 hours Does he/she have trouble falling asleep: yes Does he/she have trouble maintaining sleep: yes Does patient have good sleep hygiene: yes Review of Systems Constitutional: Positive for fatigue. Negative for activity change. Respiratory: Positive for cough and shortness of breath. Negative for wheezing. Cardiovascular: Negative for chest pain, palpitations and leg swelling. Neurological: Negative for light-headedness and headaches. Objective The patient is pleasant and in no acute distress. The neck is supple and trachea is midline. No masses are appreciated. The heart is regular rate and rhythm without S3, S4. No murmur. The patient has normal respiratory pattern. The breath sounds are diffusely decreased but symmetrical without evidence of rhonchi or rales. No wheezing. Actually breathing fairly well for him. The skin is warm and dry. The lower extremities have trace edema. The patient has good eye contact and speech is clear. Appropriate affect. Visit Vitals BP 140/80 Pulse 71 Ht 5' 10 Wt 128 lb SpO2 97% BMI 18.37 kg/m Smoking Status Former BSA 1.69 m Allergies Allergen Reactions Effexor [Venlafaxine] Other Reaction(s): saw spots, and felt like hallucination Paroxetine Hcl Rash Other Reaction(s): rash Current Outpatient Medications on File Prior to Visit Medication Sig Dispense Refill albuterol (2.5 MG/3ML) 0.083% nebulizer solution Take 3 mL (2.5 mg) by nebulization every 6 (six) hours if needed for wheezing 300 mL 1 ARIPiprazole (Abilify) 2 MG tablet Take 4 mg by mouth in the morning. baclofen (Lioresal) 20 MG tablet TAKE ONE TABLET BY MOUTH THREE TIMES A DAY 90 tablet 3 budesonide-formoterol (Symbicort) 160-4.5 MCG/ACT inhaler Inhale 2 puffs in the morning and 2 puffs before bedtime. 1 each 3 Cannabinoids (medical cannabis) Take 1 each by mouth Daily as needed. clonazePAM (KlonoPIN) 1 MG tablet Take 1 mg by mouth in the morning and 1 mg before bedtime. DULoxetine (Cymbalta) [address] capsule Take 2 capsules by mouth in the morning. losartan (Cozaar) 100 MG tablet Take 1 tablet (100 mg) by mouth Daily 30 tablet 0 meclizine (Antivert) 25 MG tablet Take 25 mg by mouth 3 (three) times a day as needed for nausea. metoprolol tartrate (Lopressor) 50 MG tablet Take 1.5 tablets (75 mg) by mouth in the morning and 1.5 tablets (75 mg) before bedtime. 90 tablet 0 naloxone (Narcan) 4 mg/0.1 mL nasal spray Administer 4 mg into affected nostril(s) if needed for opioid reversal. Nebulizers (Compressor/Nebulizer) misc Use 4 times per day regularly and every 4 hours as needed for shortness of breath and wheezing as directed 1 each 0 Ocrevus 300 MG/10ML solution Infuse into a venous catheter every 6 (six) months ondansetron ODT (Zofran-ODT) 4 MG disintegrating tablet Take 4 mg by mouth every 8 (eight) hours if needed for nausea. OXcarbazepine (Trileptal) 300 MG tablet Take 1 tablet (300 mg) by mouth in the morning and 1 tablet (300 mg) before bedtime. 60 tablet 2 oxyCODONE (Roxicodone) 10 MG immediate release tablet Take 10 mg by mouth every 6 (six) hours if needed for severe pain oxygen (O2) gas Inhale 2-3 L/min continuously via nasal canula oxygen (O2) gas Inhale oxygen via portable oxygen concentrator and nasal canula setting of 3 To maintain pulse ox saturation of 92% pantoprazole (ProtoNix) 40 MG EC tablet Take 1 tablet (40 mg) by mouth in the morning and 1 tablet (40 mg) before bedtime. 60 tablet 5 pregabalin (Lyrica) 200 MG capsule Take 1 capsule (200 mg) by mouth in the morning and 1 capsule (200 mg) in the evening and 1 capsule (200 mg) before bedtime. Due now. 90 capsule 0 primidone (Mysoline) 50 MG tablet TAKE ONE TABLET BY MOUTH DAILY IN THE MORNING AND TWO TABLETS DAILY AT BEDTIME 90 tablet 2 promethazine (Phenergan) 25 MG tablet Take 25 mg by mouth every 6 (six) hours if needed for nausea. QUEtiapine (SEROquel) 50 MG tablet Take 1-2 tablets (50-100 mg) by mouth at bedtime May repeat in about 4 hours upon awakening 180 tablet 1 senna (Senokot) 8.6 MG tablet Take 2 tablets by mouth 2 (two) times a day as needed for constipation sodium chloride 0.9 % nebulizer solution Take 3 mL by nebulization every 4 (four) hours if needed for shortness of breath (and muus clearance) 90 mL 2 spironolactone (Aldactone) 25 MG tablet Take 1 tablet (25 mg) by mouth Daily 30 tablet 2 [DISCONTINUED] primidone (Mysoline) 50 MG tablet TAKE ONE TABLET BY MOUTH DAILY IN THE MORNING AND TWO TABLETS DAILY AT BEDTIME 90 tablet 2 No current facility-administered medications on file prior to visit. 1. Primary hypertension (CMS/HCC) Chronic problem, stable, to goal - losartan (Cozaar) 100 MG tablet; Take 1 tablet (100 mg) by mouth Daily Dispense: 90 tablet; Refill: 1 - metoprolol tartrate (Lopressor) 50 MG tablet; Take 1.5 tablets (75 mg) by mouth in the morning and 1.5 tablets (75 mg) before bedtime. Dispense: 270 tablet; Refill: 1 2. Mixed hyperlipidemia (CMS/HCC) Patient continues to refuse treatment. 3. Simple chronic bronchitis (CMS/HCC) Chronic problem, stable, actually better than I have seen him in awhile. Getting relief from both of his nebulized medications. Understands that his smoking is aggravating these conditions. - albuterol (2.5 MG/3ML) 0.083% nebulizer solution; Take 3 mL (2.5 mg) by nebulization every 6 (six) hours if needed for wheezing Dispense: 300 mL; Refill: 1 4. Panlobular emphysema (CMS/HCC) As above - sodium chloride 0.9 % nebulizer solution; Take 3 mL by nebulization every 4 (four) hours if needed for shortness of breath (and muus clearance) Dispense: 90 mL; Refill: 2 5. Cigarette smoker Reconfirm the patient understands that smoking is not healthy for him. No interest in stopping. 6. Marijuana smoker As above. Uses this in the evening to help him to get relaxation and muscle pain relief. He also believes it helps him sleep. 7. Venous insufficiency Chronic problem, stable, his swelling is much improved with the medication. - spironolactone (Aldactone) 25 MG tablet; Take 1 tablet (25 mg) by mouth Daily Dispense: 90 tablet; Refill: 1 8. Gastroesophageal reflux disease without esophagitis In prescribing a renewal to their current medication, consideration of the following encompasses moderate decision making; the current prescriptions and supplements, the current allergies and medication intolerances, current medical conditions, and potential drug interactions. Any changes to risks, benefits, and reason for renewing their current medication due to the above were discussed. The patient was given a chance to ask questions today and all questions were answered. The patient is to contact us if any other questions arise or if any problems occur. (Utilizing the original 1994/1996 guidelines or the 2020 office/outpatient code guidelines for selecting the level of E/M service, In both sets of guidelines, prescription drug management appears in the moderate medical decision making (MDM) row. Neither the original guidelines nor the new guidelines state that a new prescription or change is needed in order to credit prescription drug management) - pantoprazole (ProtoNix) 40 MG EC tablet; Take 1 tablet (40 mg) by mouth in the morning and 1 tablet (40 mg) before bedtime. Dispense: 180 tablet; Refill: 1 9. Polypharmacy Chronic problem The patient meets the criteria for polypharmacy; 5 or more prescriptions or multi-morbidity defined as 5 or more diagnoses. Polypharmacy can significantly increase the risk of preventable adverse drug events and negatively impact adherence. Consideration of diverse factors such as clinician agreement, patient perspective, and de-prescribing, as appropriate can improve patient outcomes while simplifying care. This requires longitudinal monitoring as there is at least a moderate risk of morbidity and requires at least a moderate degree of evaluation and management. 10. Underweight Chronic problem that is actually improved some for him continue to work on healthy diet. documented in this encounter [facility] 03-23-2024 Telephone encount er Note Pharmacy requesting refills of primidone and lyrica. Pt last seen 07/09/2023. No appt scheduled. Would you like to fill medication. Please advise. [facility] 03-23-2024 Miscellaneous Notes Formattin g of this note might be different from the original. Pharmacy requesting refills of primidone and lyrica. Pt last seen 07/09/2023. No appt scheduled. Would you like to fill medication. Please advise. documented in this encounter [facility] 08-21-2023 Evaluation note Encounter Date Diagnosis Assessment Notes Aug, Chronic pain (ICD-10 - G89.29) OARRS reviewed, consistent with Rx. MME 60 mg/day [facility] Other 01-10-2024 Evaluation note* Encounter Date Diagnosis Assessment Notes Treatment Notes Treatment Clinical Notes Jul, Chronic pain (ICD-10 - G89.29) OARRS reviewed, consistent with Rx. Also has benzo prescribed by [facility] and pregabalin by neurology [facility] Other 12-13-2023 Evaluation note* Encounter Date Diagnosis Assessment Notes Treatment Notes Treatment Clinical Notes Jun, Chronic pain (ICD-10 - G89.29) [facility] Other 11-16-2023 Evaluation note* Encounter Date Diagnosis Assessment Notes Treatment Notes Treatment Clinical Notes May, Chronic pain (ICD-10 - G89.29) OARRS reviewed, consistent with Rx [facility] Other 11-07-2023 Evaluation note* Encounter Date Diagnosis [...] at bedtime instead of using PRN only [facility] Other 10-10-2023 Evaluation note* Encounter Date Diagnosis Assessment Notes Treatment Notes Treatment Clinical Notes Apr, Chronic pain (ICD-10 - G89.29) OARRS reviewed, consistent with Rx. Harish reports some relief with oxycodone 10 mg tabs, and is using med 3-4x/daily. Continue same without change. Apr, Constipation (ICD-10 - K59.00) Improved elimination with daily use of senna [facility] Other 09-26-2023 Evaluation note* Encounter Date Diagnosis [...] reported some lose stools after using routinely [facility] Other 09-20-2023 Evaluation note* Encounter Date Diagnosis Assessment Notes Treatment Notes Treatment Clinical Notes Mar, Chronic pain (ICD-10 - G89.29) OARRS reviewed, consistent with recent Rx. Increasing frequency of oxycodone to q6h PRN to improve pain control. Mar, Constipation (ICD-10 - K59.00) Harish is using Miralax daily but remains constipated, will add stimulant laxative [facility] Other 09-13-2023 Evaluation note* Encounter Date Diagnosis [...] of Constipation hand out provided to patient [facility] Other 04-06-2023 NoteCONSULTATION CONSULTATION DATE: 10/16/2022 TO: [...] 25 mg daily, Lyrica 200 mg t.i.d., Ashby 7.5 mg b.i.d. He currently uses medical [...] THC if we are to continue with Ashby. However, at this point, I do not [...] our patients to inform us about any fxbk-ozm-reptdtz medications or herbal remedies/nutritional supplements/alternative remedies. 2. [...] treatment options with their primary care provider.[id number] Note CONSULTATION CONSULTATION DATE: 06/26/2022 HISTORY OF [...] Lyrica 200 mg t.i.d. per his neurologist, Ashby 7.5/325 b.i.d., Cymbalta, baclofen and Ocrevus. Patient's [...] medication changes today. He was increased to Ashby 7.5/325 at his last visit, and the patient feels it is somewhat helpful. We will continue to medically manage him only. Patient will be seen in the clinic in three months' time unless otherwise indicated.[facility] [phone] NoteCONSULTATION CONSULTATION DATE: 03/13/2022 HISTORY OF PRESENT ILLNESS: This is 51-year-old gentleman, well known to the Pain [facility], returning for a three month follow up. This gentleman has history of MS, chronic pain syndrome and diffuse neuropathic pain, which is chronically medically managed with a medication regimen. Current medications include Mobic 15 mg daily, Lyrica 200 mg t.i.d., Ashby 5/325 t.i.d., baclofen, Trileptal and amitriptyline. Patient recently suffered a family loss and reportedly has lost about 12 pounds in weight. He does ambulate with a cane and is stable with that. He is requesting today that we change his Ashby from t.i.d. to 7.5 b.i.d. as he [...] pain. PLAN: We will check from his Ashby 5/325 t.i.d. to 7.5/325 b.i.d. We will maintain his other medications with no dose or frequency change. He will be given a U-Tox in the clinic today. I did discuss vitamin importance as well as supplementing his protein intake with Boost supplements. We will see the patient in three months' time, unless otherwise indicated. Patient is in agreement to this.[facility] [id number] Hospital Discharge instructions Patient Education 12/24/2021 10:47:00 [...] including vitamins, herbs, eye drops, creams, and qwpe-bpm-vtveeee medicines. This also includes: ?Medicines to assist [...] 08/01/2005 Document Revised: 06/11/2018 Document Reviewed: 04/05/2018 [employer] Patient Education 2020 [employer]. Follow Up Care 12/05/2021 14:04:21 With:Star Manley MD, Gustavo Orlando [facility] Address: [facility] [address], [place] [address]- When:Within 6 Month(s) Comments:w/ PVR [facility] 05-26-2022 Note [id number]:127[facility] 12-05-2021 NoteUrolift ? Some men [...] use a Coude (pronouncedcoo-day) tipped catheter.[facility]05-26-2022 Hospital Discharge instructions Patient Education [...] [facility] [address], [place] [address]- Business (1) When:2 to 4 weeks Comments:[facility] Future Appointments Appointment Date:12/24/2021 09:30:00 AM Scheduled Provider:Gustavo Graves Jr., MD Location:[facility] Appointment Type:URO [facility] Future Appointments Appointment Date:07/01/2022 10:45:00 AM Scheduled Provider:Gustavo Graves Jr., MD Location:[facility] Appointment Type:URO Office Visit [facility] evaluation noteNo [place] Other evaluation note* Diagnosis Onset Date Resolution Status Chronic pain acute Constipation acute USP (current) use of opiate analgesic acute Multiple sclerosis [facility] Work Phone: evaluation note* Diagnosis Onset Date Resolution Status Chronic pain acute Constipation acute Multiple sclerosis [facility] Work Phone: evaluation note* Diagnosis Multiple sclerosis (CMS/HCC)- Primary Multiple [...] pain syndrome acute Constipation acute Multiple sclerosis [facility] Work Phone: Evaluation note* Diagnosis Insomnia, unspecified [...] prescriptions Underweight [facility] Diagnosis Rhinorrhea- Primary Other diseases of nasal cavity and sinuses [facility] Diagnosis Primary hypertension (CMS/HCC)- Primary Unspecified essential hypertension Mixed hyperlipidemia (CMS/HCC) Mixed hyperlipidemia Simple chronic bronchitis (CMS/HCC) Simple chronic bronchitis Panlobular emphysema (CMS/HCC) Other emphysema Cigarette smoker Tobacco use disorder Marijuana smoker Venous insufficiency Unspecified venous (peripheral) insufficiency Gastroesophageal reflux disease without esophagitis Esophageal reflux Polypharmacy Issue of repeat prescriptions Underweight [facility] Diagnosis Primary hypertension (CMS/HCC) Unspecified essential hypertension Primary insomnia Persistent disorder of initiating or maintaining sleep Mixed hyperlipidemia (CMS/HCC) Mixed hyperlipidemia Protein-calorie malnutrition, moderate (CMS/HCC) Malnutrition of moderate degree Muscle spasm Spasm of muscle Venous insufficiency Unspecified venous (peripheral) insufficiency Gastroesophageal reflux disease without esophagitis Esophageal reflux [facility] Diagnosis Sensory disturbance Disturbance of skin sensation Muscle spasm Spasm of muscle Cervical radiculopathy Brachial neuritis or radiculitis nos Tremor Abnormal involuntary movements [facility] Diagnosis Post-void dribbling Urinary incontinence without sensory awareness Incontinence without sensory awareness Relapsing remitting multiple sclerosis (CMS/HCC) Multiple sclerosis Polypharmacy Issue of repeat prescriptions Cigarette smoker Tobacco use disorder Underweight Urinary incontinence without sensory awareness Incontinence without sensory awareness Relapsing remitting multiple sclerosis (CMS/HCC) Multiple sclerosis Post-void dribbling Cigarette smoker Tobacco use disorder Polypharmacy Issue of repeat prescriptions Underweight [facility] noteNo assessment information availableReg[facility] Work [facility]: Evaluation note* Diagnosis Urinary incontinence without sensory awareness Incontinence without sensory awareness Post-void dribbling Relapsing remitting multiple sclerosis (CMS/HCC) Multiple sclerosis [facility]* Diagnosis Multiple sclerosis (CMS/HCC)- Primary Multiple sclerosis Other chronic pain Tremor Abnormal involuntary movements [facility]* Diagnosis Cervical radiculopathy Brachial neuritis or radiculitis nos Sensory disturbance Disturbance of skin sensation Muscle spasm Spasm of muscle Tremor Abnormal involuntary movements [facility]* Diagnosis Primary hypertension (CMS/HCC) Unspecified essential hypertension [facility]* Diagnosis Insomnia, unspecified type [facility]* Diagnosis COPD with acute exacerbation (CMS/HCC)- Primary Cigarette smoker Tobacco use disorder Marijuana smoker Olecranon bursitis of right elbow Swelling of right ankle joint Polypharmacy Issue of repeat prescriptions [facility] N[facility]ative - Reported* Type Description Date Medical History multiple sclerosis Medical History bipolar Medical History GERD Surgical History cholecystectomy [facility] Other Hospital course Narrative No data available for this section [facility] No data available for this section [facility] [place] Summary Purpose Family History Relationship Condition Age at Onset Recorded Date/T mohamud father Leukemia Unknown Malignant neoplasm Unknown Advance Directives Advance Directive Response Recorded Date/ Time Advance Directives No March 08, 2017 7:15am Advance Directive Response Recorded Date/ Time Advance Directives No January 26 8:28am Advance Directive Response Recorded Date/ Time Advance Directives No January 26 7:28am Chief Complaint and Reason for Visit Chief Complaint 1 month F/U Patient here for a 2 month f/u Reason for Visit Chronic pain 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 Multiple sclerosis [...] Chronic pain syndrom e Constipation Multiple sclerosis Chief Complaint Admit Date Patient here for a f/u via phone uar 2024 4:06pm Chief Complaint Admit Date Patient here for a f/u via phone ua2024 4:06pm Patient here for a f/u November 07, 2024 3:49pm Additional Source Comments (unrecognized sect ion and content) No Status Records FoundNo Status Records FoundNo Status Records FoundNo Status Records FoundNo Status Records FoundNo Status Records Found INFORMATION SOURCE (unrecogn ized section and content) DATE CREATED AUTHOR 09/18/2018 [facility] DATE CREATED AUTHOR AUTHOR'S ORGANIZ ATION 01/25/2021 [facility] DATE CREATED AUTHOR AUTHOR'S ORGANIZ ATION 09/16/2022 [place] [facility] DATE CREATED AUTHOR AUTHOR'S ORGANIZ ATION 11/18/2022 [facility] [place] [facility] DATE CREATED AUTHOR AUTHOR'S ORGANIZ ATION 09/16/2024 [facility] DATE CREATED AUTHOR AUTHOR'S ORGANIZ ATION 11/02/2024 [facility] EPIC Care Team (unrecognized [...] August 26, 2023 End: August 29, 2023 eJff Eagle DO Attending Provider Active Sta rt: August 26, 2023 End: August 29, 2023 Team Status: Inactive Member Role Status Dates Bubba Ghotra MD Primary Care Provider Active Start: September 17, 2023 End: September 17, 2023 Mahnaz Roth APRN Attending Provider Active Start: September 17, 2023 End: September 17, 2023 Medical Record Consultant Relationship Specialty Start Date End Date Bubba Ghotra MD [address] [facility] [place] [address] (Fax) PCP - General Family Medicine 11/27/22 Bubba Ghotra MD [address] [facility] [place] [address] (Fax) PCP - ACO Reach 12/04/22 Elaina Burgess PA [address] [place] [address] Physician Transformer Shop Supervisor Neurology 12/02/23 Kenna Lockett, GRAHAM Registered Nurse Family Medicine 12/02/23 Maty Win MD [address] [place] [address] Referring Physician [facility] 12/02/23 Team Status: Inactive Member Role Status Dates Bubba Ghotra MD Primary Care Provider Active Start: April 14, 2024 End: April 14, 2024 Mahnaz Roth APRN Attending Provider Active Start: April 14, 2024 End: April 14, 2024 Medical Record Consultant Relationship Specialty Start Date End Date Bubba Ghotra MD [address] [facility] [place] [address] (Fax) PCP - General Family Medicine 11/27/22 Bubba Ghotra MD [address] [facility] [place] [address] (Fax) PCP - ACO Reach 12/04/22 Elaina Burgess PA [address] [place] [address] Physician Transformer Shop Supervisor Neurology 12/02/23 Kenna Lockett RN Registered Nurse Family Medicine 12/02/23 Maty Win MD [address] [place] [address] Referring Physician Behavioral Health 12/02/23 Medical Record Consultant Relationship Specialty Start Date End Date Bubba Ghotra MD [address] [place] [address] (Fax) PCP - General Family Medicine 11/27/22 Bubba Ghotra MD [address] [place] [address] (Fax) PCP - ACO Reach 12/04/22 Elaina Burgess PA [address] [place] [phone] Physician Transformer Shop Supervisor Neurology 12/02/23 Kenna Lockett, RN Registered Nurse Family Medicine 12/02/23 Maty Win MD [address] [place] [address] Referring Physician [facility] 12/02/23 Team Status: Inactive Member Role Status Dates Bubba Ghotra MD Primary Care Provider Active Start: May 10, 2024 End: May 10, 2024 Mahnaz Roth APRN Attending Provider Active Start: May 10, 2024 End: May 10, 2024 Medical Record Consultant Relationship Specialty Start Date End Date Bubba Ghotra MD [address] [address] (Fax) PCP - General Family Medicine 11/27/22 Bubba Ghotra MD [address] [address] (Fax) PCP - ACO Reach 12/04/22 Elaina Burgess PA [address] [place] [address] Physician Transformer Shop Supervisor Neurology 12/02/23 Kenna Lockett, RN Registered Nurse Family Medicine 12/02/23 Maty Win MD [address] [place], [place] [phone] Referring Physician Behavioral Health 12/02/23 Medical Record Consultant Relationship Specialty Start Date End Date Bubba Ghotra MD [address] [place] [address] (Fax) PCP - General Family Medicine 11/27/22 Bubba Ghotra MD [address] [place] [address] (Fax) PCP - ACO Reach 12/04/22 Elaina Burgess PA [address] [place], [place] [phone] Physician Transformer Shop Supervisor Neurology 12/02/23 Kenna Lockett, RN Registered Nurse Family Medicine 12/02/23 Maty Win MD [address] [place] [phone] Referring Physician Behavioral Health 12/02/23 Medical Record Consultant Relationship Specialty Start Date End Date Bubba Ghotra MD [address] [place] [address] (Fax) PCP - General Family Medicine 11/27/22 Bubba Ghotra MD [address] [place] [address] (Fax) PCP - ACO Reach 12/04/22 Elaina Burgess PA [address] [place], [place] [phone] Physician Transformer Shop Supervisor Neurology 12/02/23 Kenna Lockett, RN Registered Nurse Family Medicine 12/02/23 Maty Win MD [address] [place] [address] Referring Physician Behavioral Health 12/02/23 Medical Record Consultant Relationship Specialty Start Date End Date Bubba Ghotra MD [address] [place] [address] (Fax) PCP - General Family Medicine 11/27/22 Bubba Ghotra MD [address] [place] [address] (Fax) PCP - ACO Reach 12/04/22 Elaina Burgess PA [address] [facility] [address] [place], [place] [phone] Physician Transformer Shop Supervisor Neurology 12/02/23 Kenna Lockett, RN Registered Nurse Family Medicine 12/02/23 Maty Win MD [address] [place] [address] Referring Physician Behavioral Health 12/02/23 Medical Record Consultant Relationship Specialty Start Date End Date Bubba Ghotra MD [address] [place] [address] (Fax) PCP - General Family Medicine 11/27/22 Bubba Ghotra MD [address] [place] [address] (Fax) PCP - ACO Reach 12/04/22 Elaina Burgess PA [address] [place] [address] Physician Transformer Shop Supervisor Neurology 12/02/23 Kenna Lockett, GRAHAM Registered Nurse Family Medicine 12/02/23 Maty Win MD [address] [place] [address] Referring Physician Behavioral Health 12/02/23 Medical Record Consultant Relationship Specialty Start Date End Date Bubba Ghotra MD [address] [place] [address] (Fax) PCP - General Family Medicine 11/27/22 Bubba Ghotra MD [address] [place] [address] (Fax) PCP - ACO Reach 12/04/22 Elaina Burgess PA [address] [place] [address] Physician Transformer Shop Supervisor Neurology 12/02/23 Kenna Lockett, GRAHAM Registered Nurse Family Medicine 12/02/23 Maty Win MD [address] [place] [address] Referring Physician Behavioral Health 12/02/23 Medical Record Consultant Relationship Specialty Start Date End Date Bubba Ghotra MD [address] [place] [address] (Fax) PCP - General Family Medicine 11/27/22 Bubba Ghotra MD [address] [facility] [address] [place] [address] (Fax) PCP - ACO Reach 12/04/22 Elaina Burgess PA [address] [place] [address] Physician Transformer Shop Supervisor Neurology 12/02/23 Kenna Lockett, RN Registered Nurse Family Medicine 12/02/23 Maty Win MD [address] [place] [address] Referring Physician Behavioral Health 12/02/23 Medical Record Consultant Relationship Specialty Start Date End Date Bubba Ghotra MD [address] [place] [address] (Fax) PCP - General Family Medicine 11/27/22 Bubba Ghotra MD [address] [place] [address] (Fax) PCP - ACO Reach 12/04/22 Elaina Burgess PA [address] [place] [phone] Physician Transformer Shop Supervisor Neurology 12/02/23 Kenna Lockett, RN Registered Nurse Family Medicine 12/02/23 Maty Win MD [address] [place] [address] Referring Physician Behavioral Health 12/02/23 Medical Record Consultant Relationship Specialty Start Date End Date Bubba Ghotra MD [address] [place] [address] (Fax) PCP - General Family Medicine 11/27/22 Bubba Ghotra MD [address] [place] [address] (Fax) PCP - ACO Reach 12/04/22 Elaina Burgess PA [address] [place] [address] Physician Transformer Shop Supervisor Neurology 12/02/23 Kenna Lockett, GARHAM Registered Nurse Family Medicine 12/02/23 Maty Win MD [address] [place] [address] Referring Physician Behavioral Health 12/02/23 Medical Record Consultant Relationship Specialty Start Date End Date Bubba Ghotra MD [address] [place] [address] (Fax) PCP - General Family Medicine 11/27/22 Bubba Ghotra MD [address] [place] [address] (Fax) PCP - ACO Reach 12/04/22 Elaina Burgess PA [address] [address] Physician Transformer Shop Supervisor Neurology 12/02/23 Kenna Lockett, RN Registered Nurse Family Medicine 12/02/23 Maty Win MD [address] [place] [address] Referring Physician Behavioral Health 12/02/23 Medical Record Consultant Relationship Specialty Start Date End Date Bubba Ghotra MD [address] [place] [address] (Fax) PCP - General Family Medicine 11/27/22 Bubba Ghotra MD [address] [place] [address] (Fax) PCP - ACO Reach 12/04/22 Elaina Burgess PA [address] [place] [address] Physician Transformer Shop Supervisor Neurology 12/02/23 Kenna Lockett, GRAHAM Registered Nurse Family Medicine 12/02/23 Maty Win MD [address] [place] [address] Referring Physician Behavioral Health 12/02/23 Medical Record Consultant Relationship Specialty Start Date End Date Bubba Ghotra MD [address] [place] [address] (Fax) PCP - General Family Medicine 11/27/22 Bubba Ghotra MD [address] [place] [address] (Fax) PCP - ACO Reach 12/04/22 Elaina Burgess PA [address] [place] [address] Physician Transformer Shop Supervisor Neurology 12/02/23 Kenna Lockett, RN Registered Nurse Family Medicine 12/02/23 Maty Win MD [address] [place] [address] Referring Physician Behavioral Health 12/02/23 Medical Record Consultant Relationship Specialty Start Date End Date Bubba Ghotra MD [address] [place] [address] (Fax) PCP - General Family Medicine 11/27/22 Bubba Ghotra MD [address] [place] [address] (Fax) PCP - ACO Reach 12/04/22 Elaina Burgess PA [address] [place] [address] Physician Transformer Shop Supervisor Neurology 12/02/23 Kenna Lockett, RN Registered Nurse Family Medicine 12/02/23 Maty Win MD [address] [place] [address] Referring Physician Behavioral Health 12/02/23 Medical Record Consultant Relationship Specialty Start Date End Date Bubba Ghotra MD [address] [place] [address] (Fax) PCP - General Family Medicine 11/27/22 Bubba Ghotra MD [address] [place] [address] (Fax) PCP - ACO Reach 12/04/22 Elaina Burgess PA [address] [place] [address] Physician Transformer Shop Supervisor Neurology 12/02/23 Kenna Lockett, RN Registered Nurse Family Medicine 12/02/23 Maty Win MD [address] [place] [address] Referring Physician Behavioral Health 12/02/23 Team Status: Inactive Member Role Status Dates Bubba Ghotra MD Primary Care Provider Active Start: August 23, 2024 End: August 23, 2024 Mahnaz Roth APRN Attending Provider Active Start: August 23, 2024 End: August 23, 2024 Medical Record Consultant Relationship Specialty Start Date End Date Bubba Ghotra MD [address] [facility] [address] [place] [address] (Fax) PCP - General Family Medicine 11/27/22 Bubba Ghotra MD [address] [address] (Fax) PCP - ACO Reach 08/26/24 Elaina Burgess PA [address] [place] [phone] Physician Transformer Shop Supervisor Neurology 12/02/23 Kenna Lockett, RN Registered Nurse Family Medicine 12/02/23 Maty Win MD [address] [place] [address] Referring Physician Behavioral Health 12/02/23 Medical Record Consultant Relationship Specialty Start Date End Date Bubba Ghotra MD [address] [address] (Fax) PCP - General Family Medicine 11/27/22 Bubba Ghotra MD [address] [address] (Fax) PCP - ACO Reach 08/26/24 Elaina Burgess PA [address] [place] [address] Physician Transformer Shop Supervisor Neurology 12/02/23 Kenna Lockett, GRAHAM Registered Nurse Family Medicine 12/02/23 Maty Win MD Referring Physician Behavioral Health 12/02/23 Medical Record Consultant Relationship Specialty Start Date End Date Bubba Ghotra MD [address] [place] [address] (Fax) PCP - General Family Medicine 11/27/22 Elaina Burgess PA [address] [place] [address] Physician Transformer Shop Supervisor Neurology 12/02/23 Kenna Lockett RN Registered Nurse Family Medicine 12/02/23 Maty Win MD Referring Physician Behavioral Health 12/02/23 Medical Record Consultant Relationship Specialty Start Date End Date Bubba Ghotra MD [address] [place] [address] (Fax) PCP - General Family Medicine 11/27/22 Elaina Burgess PA [address] [place] [address] Physician Transformer Shop Supervisor Neurology 12/02/23 Kenna Lockett RN Registered Nurse Family Medicine 12/02/23 Maty Win MD Referring Physician Behavioral Health 12/02/23 Medical Record Consultant Relationship Specialty Start Date End Date Bubba Ghotra MD [address] [place] [address] PCP - General Family Medicine 11/27/22 Elaina Burgess PA [address] [place] [address] Physician Transformer Shop Supervisor Neurology 12/02/23 Kenna Lockett, RN Registered Nurse Family Medicine 12/02/23 Maty Win MD Referring Physician Behavioral Health 12/02/23 Medical Record Consultant Relationship Specialty Start Date End Date Bubba Ghotra MD [address] [place] [address] [address] [place] [address] PCP - General Family Medicine 11/27/22 Elaina Burgess PA [address] [place] [address] Physician Transformer Shop Supervisor Neurology 12/02/23 Kenna Lockett, GRAHAM Registered Nurse Family Medicine 12/02/23 Maty Win MD Referring Physician Behavioral Health 12/02/23 Team Status: Inactive Member Role Status Dates Bubba Ghotra MD Primary Care Provider Active Start: November 07, 2024 End: November 07, 2024 Mahnaz Roth APRN Attending Provider Active Start: November 07, 2024 End: November 07, 2024 REASON FOR VISIT (unrecogniz ed section and content) Reason Comments Multiple Sclerosis Reason Comments Med Refill Reason Onset Date Comments MED FOR MRI 06/22/2024 Reason Comments Hypertension COPD GERD Sleeping Problem Reason Comments Urinary Incontinence Reason Onset Date Comments Care Coordination 10/20/2024 Reason Comments URI Goals (unrecognized section and content) Goals may [...] BE BASED ON THE PRIMARY CLINICAL RECORDS. [facility] [employer] [facility]. provides no warranty or guarantee of the accuracy or completeness of information in this document.
[2024-11-19] MEDS: LORAZEPAM 2 MG/ML VIAL 0.5 MG IV (05:43)
[2024-11-19 05:54] LABS: ABG PCO2 22.2 mmHg (35.0-45.0)
[2024-11-19 05:55] LABS: Allen Test POSITIVE (POSITIVE); HCO3 ABG 23.1 mmol/L (22.0-26.0); Liters per Minute 6; O2 Mode Nasal cannula; PO2 ABG 72.3 mmHg (80.0-100.0); Puncture Site LR
[2024-11-19 05:56] LABS: pH ABG 7.625 (7.350-7.450)
[2024-11-19 05:59] LABS: Anion Gap 8.8; BUN Creatinine Ratio 11.5; Calcium 9.4 mg/dL (8.5-10.1); Carbon Dioxide 33.3 mmol/L (21.0-32.0); Chloride 98 mmol/L (98-107); Estimated GFR (African America >60 (>=60 mL/min/1.73m^2); Estimated GFR (Non-African Ame 57 (>=60 mL/min/1.73m^2); Glucose 108 mg/dL (74-106); Potassium 4.1 mmol/L (3.5-5.1); Sodium 136 mmol/L (136-145)
[2024-11-19 06:01] LABS: Basophils Absolute Auto 0.1 10^3/uL (0.0-0.1); Basophils Percent Auto 0.7 % (0.2-2.0); Eosinophils Absolute Auto 0.1 10^3/uL (0.0-0.7); Eosinophils Percent Auto 0.9 % (0.9-7.0); Hematocrit 37.9 % (42.0-54.0); Immature Granulocytes Abs Auto 0.04 10^3/uL (0.00-0.03); Immature Granulocytes Pct Auto 0.4 % (0.0-0.5); Lymphocytes Absolute Auto 1.7 10^3/uL (1.2-3.8); Lymphocytes Percent Auto 17.1 % (20.5-60.0); Mean Corpuscular HGB Conc 34.3 g/dL (29.9-35.2); Mean Corpuscular Hemoglobin 30.8 pg (25.9-34.0); Mean Corpuscular Volume 89.8 fL (80.0-94.0); Mean Platelet Volume 10.3 fL (9.5-13.5); Monocytes Absolute Auto 0.7 10^3/uL (0.3-0.8); Monocytes Percent Auto 6.9 % (1.7-12.0); Neutrophils Absolute Auto 7.2 10^3/uL (1.4-6.5); Platelet Count 381 10^3/uL (150-450); Red Blood Count 4.22 10^6/uL (4.70-6.10); Red Cell Distribution Width 13.6 % (11.0-15.0); White Blood Count 9.7 10^3/uL (4.0-11.0)
--- NOTE | 2024-11-19 06:03 | ECG_ITS ---
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 Measurements Intervals [place] Rate: 94 P: 53 [place]: 166 QRS: 79 QRSD: 82 T: 67 QT: 360 QTc: 411 Interpretive Statements 1100 Sinus rhythm 3433 Septal myocardial infarction, probably old 0102 ARTIFACT PRESENT 9150 abnormal ECG Compared to ECG 10/22/2023 13:57:19 No significant changes Electronically Signed On 11-20-2024 12:34:35 EDT by MARY MORALES M.D.
[2024-11-19] MEDS: LORAZEPAM 2 MG/ML VIAL 1 MG IV ×2 (06:19→08:22)
--- NOTE | 2024-11-19 08:46 | ED.GENADUL1 ---
HPI HPI - General Adult General Chief complaint: Shortness of Breath/Dyspnea Stated complaint: Shortness of Breath Time Seen by Provider: 11/19/24 06:47 History of Present Illness HPI narrative: 54-year-old male presented to the emergency department and was initially seen by Dr. Peralta and signed out to me after discussing the case with him thoroughly. Related Data Home Medications ?Medication ?Instructions ?Recorded ?Confirmed albuterol sulfate 2.5 mg/3 mL 2.5 mg inhalation Q6H PRN 08/26/23 11/19/24 (0.083 %) solution for nebulization shortness of breath or wheezing baclofen 20 mg tablet 20 mg PO Q8H 08/26/23 11/19/24 budesonide-formoterol HFA 160 2 puff inhalation Q12H 08/26/23 11/19/24 mcg-4.5 mcg/actuation aerosol inhaler (Symbicort) clonazepam 1 mg tablet 1 mg PO Q12H 08/26/23 11/19/24 duloxetine 60 mg capsule,delayed 120 mg PO DAILY 08/26/23 11/19/24 release losartan 100 mg tablet 100 mg PO DAILY 08/26/23 11/19/24 metoprolol tartrate 50 mg tablet 75 mg PO Q12H 08/26/23 11/19/24 pantoprazole 40 mg tablet,delayed 40 mg PO BID 08/26/23 11/19/24 release pregabalin 200 mg capsule 200 mg PO Q8H 08/26/23 11/19/24 primidone 50 mg tablet 100 mg PO .QHS 08/26/23 11/19/24 sennosides 8.6 mg tablet (senna) 17.2 mg PO BID PRN constipation 08/26/23 11/19/24 aripiprazole 5 mg tablet 5 mg PO DAILY 11/19/24 11/19/24 oxycodone 15 mg tablet 15 mg PO Q6H PRN pain 11/19/24 11/19/24 spironolactone 50 mg tablet 50 mg PO DAILY 11/19/24 11/19/24 Allergies Allergy/AdvReac Type Severity Reaction Status Date / Time paroxetine (From Paxil) Allergy Intermediate Hallucinati Verified 10/15/23 21:10 ng venlafaxine (From Effexor) Allergy Intermediate Hallucinati Verified 10/15/23 21:10 ng Opioid HPI Opioid Management Most Recent Opioid Data: Last Pain Scale 7 Today, 21:00 Last Pain Assessment Today, 10:30 Last ORT Total Score 0 Today, 10:06 Last ORT Risk Category Low Risk Today, 10:06 Ur Phencyclidine Scrn, (NEGATIVE) Negative Today, 10:15 PFSH [facility] Medical History (Updated 11/19/24 @ 12:00 by Elva Lipscomb DO) 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.821 - Immunodeficiency due to drugs (ICD-10) ?Z79.899 - Other skilled nursing (current) drug therapy (ICD-10) Hypomagnesemia ?E83.42 - Hypomagnesemia (ICD-10) Transaminitis ?R74.01 - Elevation of levels of liver transaminase levels (ICD-10) Hypertension ?I10 - Essential (primary) hypertension (ICD-10) Multiple sclerosis ?G35 - Multiple sclerosis (ICD-10) COPD exacerbation ?J44.1 - Chronic obstructive pulmonary disease with (acute) exacerbation (ICD-10) Acute hypoxic respiratory failure ?J96.01 - Acute respiratory failure with hypoxia (ICD-10) Chronic respiratory failure with hypoxia ?J96.11 - Chronic respiratory failure with hypoxia (ICD-10) Depression with anxiety ?F41.8 - Other specified anxiety disorders (ICD-10) Polyneuropathy ?G62.9 - Polyneuropathy, unspecified (ICD-10) Influenza ?J11.1 - Influenza due to unidentified influenza virus with other respiratory manifestations (ICD-10) Hypoxemia ?R09.02 - Hypoxemia (ICD-10) FH: cholecystectomy ?Z83.79 - Family history of other diseases of the digestive system (ICD-10) COPD (chronic obstructive pulmonary disease) ?J44.9 - Chronic obstructive pulmonary disease, unspecified (ICD-10) Family History Father Family history of cancer Family history of hypertension Social History Within the past year, how often did you have a drink containing alcohol: never Score interpretation: A score less than 4 is consistent with normal alcohol consumption. Smoking status: Former smoker Non-prescribed substance use: cannabis (any form) Previous occupational history: disabled Highest level of school completed/degree received: high school graduate Are you now , , , , never or living with a partner: In a typical week, how many times do you talk on the telephone with family, friends, or neighbors: 3 or more times per week How often do you get together with friends or relatives: 3 or more times per week How often do you attend moravian or druze services: never Do you belong to any clubs or organizations such as moravian groups unions, fraRADSONE or athletic groups, or school groups: no Total score: 1 Score interpretation: A score of less than or equal to 1 indicates the most socially isolated. Little interest or pleasure in doing things: nearly every day Feeling down, depressed, or hopeless: nearly every day Feel stressed/tense/nervous/anxious/difficulty sleeping: not at all Gender Identity: male Exam Constitutional Vital Signs, click to edit/add: Last Vital Signs Temp 98.7 F 11/19/24 20:00 Pulse 89 11/19/24 20:00 Resp 18 11/19/24 20:00 BP 142/95 H 11/19/24 20:00 Pulse Ox 93 L 11/19/24 20:00 O2 Del Method Nasal Cannula 11/19/24 20:00 O2 Flow Rate 2 11/19/24 20:00 Course Vital Signs Vital signs: Vital Signs Blood Pressure 119/84 11/19/24 02:01 Temperature 98.7 F 11/19/24 20:00 Pulse Rate 89 11/19/24 20:00 Respiratory Rate 18 11/19/24 20:00 Blood Pressure 142/95 H 11/19/24 20:00 Pulse Oximetry 93 L 11/19/24 20:00 Oxygen Delivery Method Nasal Cannula 11/19/24 20:00 Oxygen Delivery Flow Rate 2 11/19/24 20:00 Medical Decision Making MDM Narrative Medical decision making narrative: We are still awaiting the chest x-ray report at this time. I suspect that there is a right-sided pneumonia. D-dimer is mildly elevated at 1.5 and this was discussed with Dr. Lipscomb. The patient is being admitted. Lab Data Lab results reviewed: Yes I reviewed the patient's lab results Labs: Lab Results 11/19/24 11/19/24 11/19/24 Range/Units 02:07 05:44 07:10 WBC 9.7 (4.0-11.0) 10^3/uL RBC 4.22 L (4.70-6.10) 10^6/uL Hgb 13.0 L (14.0-18.0) g/dL Hct 37.9 L (42.0-54.0) % MCV 89.8 (80.0-94.0) fL MCH 30.8 (25.9-34.0) pg MCHC 34.3 (29.9-35.2) g/dL RDW 13.6 (11.0-15.0) % Plt Count 381 (150-450) 10^3/uL MPV 10.3 (9.5-13.5) fL Neut % (Auto) 74.0 (43.0-75.0) % Lymph % (Auto) 17.1 L (20.5-60.0) % Barry % (Auto) 6.9 (1.7-12.0) % Eos % (Auto) 0.9 (0.9-7.0) % Baso % (Auto) 0.7 (0.2-2.0) % Neut # (Auto) 7.2 H (1.4-6.5) 10^3/uL Lymph # (Auto) 1.7 (1.2-3.8) 10^3/uL Barry # (Auto) 0.7 (0.3-0.8) 10^3/uL Eos # (Auto) 0.1 (0.0-0.7) 10^3/uL Baso # (Auto) 0.1 (0.0-0.1) 10^3/uL Abs Immat Gran (auto) 0.04 H (0.00-0.03) 10^3/uL Imm/Tot Granulo (auto) 0.4 (0.0-0.5) % D-Dimer 1.50 H* (<=0.59) mg/L FEU Puncture Site Lr ABG pH 7.625 H* (7.350-7.450) ABG pCO2 22.2 L (35.0-45.0) mmHg ABG pO2 72.3 L (80.0-100.0) mmHg ABG HCO3 23.1 (22.0-26.0) mmol/L ABG O2 Saturation 96.0 % ABG Base Excess 2.0 (-2.0-2.0) mmol/L Ruiz Test Positive (POSITIVE) O2 Liters/Min 6 Sodium 136 (136-145) mmol/L Potassium 4.1 (3.5-5.1) mmol/L Chloride 98 (98-107) mmol/L Carbon Dioxide 33.3 H (21.0-32.0) mmol/L Anion Gap 8.8 BUN 15.0 (7.0-18.0) mg/dL Creatinine 1.30 (0.70-1.30) mg/dL Est GFR ( Amer) >60 (>=60 mL/min/1.73m^2) Est GFR (Non-Af Amer) 57 L (>=60 mL/min/1.73m^2) BUN/Creatinine Ratio 11.5 Glucose 108 H (74-106) mg/dL Calcium 9.4 (8.5-10.1) mg/dL Troponin I High Sens 5.0 (4.0-76.1) pg/mL Discharge Plan Discharge Chief Complaint: Shortness of Breath/Dyspnea Clinical Impression: Pneumonia Patient Disposition: Admitted As Inpatient Time of Disposition Decision: 08:51 Condition: Good Discharge Date/Time: 11/19/24 09:50
--- NOTE | 2024-11-19 09:05 | PM.HP ---
HPI H&P: HPI History of Present Illness Chief complaint: Shortness of Breath PNEUMONIA Narrative: Patient is a 54-year-old male patient with a complicated past medical history including advanced MS, COPD with chronic respiratory failure with hypoxia, on 3L of oxygen via [place], depression, anxiety and hypertension; who presented to the ED complaining of shortness of breath x 1 week. He reports he was able to see his pcp and was given a steroid taper that he finished about 2 days ago. He also developed a cough, non productive, and no fever but chills. He increased his oxygen to 6 Liters at home and was brought to the ER today. He currently is not smoking, quit about 2 years ago. He has anxiety which worsens at hospitals. He has been using his nebulizer treatments without good results. Takes opiods for generalized pain from his MS. He denies any n/v/d. ER findings: CXR with Right sided infiltrate, WBC 9.7, hb 13, Cr 1.3, BUN 15, ABG: pH 7.6, PCO2 22, O272, and 96% on 6 Liter, D-dimer 1.5, trop 50, UA and UDS pending at the time of admission along with CTA chest results Quality: Safe Use of Opioids Is the patient undergoing opioid medication assisted treatment that includes methadone, buprenorphine, and/or naltrexone: No Opioid HPI Opioid Management Most Recent Pain and Opioid Data: Last Pain Scale 8 Today, 10:30 Last Pain Assessment Today, 10:30 Last ORT Total Score 0 Today, 10:06 Last ORT Risk Category Low Risk Today, 10:06 Ur Phencyclidine Scrn, (NEGATIVE) Negative Today, 10:15 Review of Systems ROS Narrative ROS: a complete review of systems were reviewed with patient and are positive as below or listed in History of Chief Complaint. General: no fever, but chills, night sweats Head: no headache, trauma, visual changes, nausea or vomiting Skin: no reported rashes, itching or sores Eyes: no blurriness of vision Ears: no reported hearing loss, vertigo, earache, or tinnitus Throat: no sore throat, hoarseness, swelling of neck, or tongue pain Heart: no chest pain Lungs: shortness of breath and cough GI: no diarrhea or vomiting/nausea Urinary: no urinary urgency, frequency or pain Neuro: no numbness or tingling HEM: no bleeding issues or bruising ENDO: no thyroid problems Psych: anxiety and depression [facility] Medical History (Updated 11/19/24 @ 12:00 by Elva Lipscomb DO) 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.821 - Immunodeficiency due to drugs (ICD-10) ?Z79.899 - Other mcfp (current) drug therapy (ICD-10) Hypomagnesemia ?E83.42 - Hypomagnesemia (ICD-10) Transaminitis ?R74.01 - Elevation of levels of liver transaminase levels (ICD-10) Hypertension ?I10 - Essential (primary) hypertension (ICD-10) Multiple sclerosis ?G35 - Multiple sclerosis (ICD-10) COPD exacerbation ?J44.1 - Chronic obstructive pulmonary disease with (acute) exacerbation (ICD-10) Acute hypoxic respiratory failure ?J96.01 - Acute respiratory failure with hypoxia (ICD-10) Chronic respiratory failure with hypoxia ?J96.11 - Chronic respiratory failure with hypoxia (ICD-10) Depression with anxiety ?F41.8 - Other specified anxiety disorders (ICD-10) Polyneuropathy ?G62.9 - Polyneuropathy, unspecified (ICD-10) Influenza ?J11.1 - Influenza due to unidentified influenza virus with other respiratory manifestations (ICD-10) Hypoxemia ?R09.02 - Hypoxemia (ICD-10) FH: cholecystectomy ?Z83.79 - Family history of other diseases of the digestive system (ICD-10) COPD (chronic obstructive pulmonary disease) ?J44.9 - Chronic obstructive pulmonary disease, unspecified (ICD-10) Family History Father Family history of cancer Family history of hypertension Social History Within the past year, how often did you have a drink containing alcohol: never Score interpretation: A score less than 4 is consistent with normal alcohol consumption. Smoking status: Former smoker Non-prescribed substance use: cannabis (any form) Previous occupational history: disabled Highest level of school completed/degree received: high school graduate Are you now , , , , never or living with a partner: In a typical week, how many times do you talk on the telephone with family, friends, or neighbors: 3 or more times per week How often do you get together with friends or relatives: 3 or more times per week How often do you attend muslim or samaritan services: never Do you belong to any clubs or organizations such as muslim groups unions, [employer] or athletic groups, or school groups: no Total score: 1 Score interpretation: A score of less than or equal to 1 indicates the most socially isolated. Little interest or pleasure in doing things: nearly every day Feeling down, depressed, or hopeless: nearly every day Feel stressed/tense/nervous/anxious/difficulty sleeping: not at all Gender Identity: male Meds Home Medications and Allergies Home Medications ?Medication ?Instructions ?Recorded ?Confirmed ?Type albuterol sulfate 2.5 mg/3 mL 2.5 mg inhalation Q6H PRN 08/26/23 11/19/24 History (0.083 %) solution for nebulization shortness of breath or wheezing baclofen 20 mg tablet 20 mg PO Q8H 08/26/23 11/19/24 History budesonide-formoterol HFA 160 2 puff inhalation Q12H 08/26/23 11/19/24 History mcg-4.5 mcg/actuation aerosol inhaler (Symbicort) clonazepam 1 mg tablet 1 mg PO Q12H 08/26/23 11/19/24 History duloxetine 60 mg capsule,delayed 120 mg PO DAILY 08/26/23 11/19/24 History release losartan 100 mg tablet 100 mg PO DAILY 08/26/23 11/19/24 History metoprolol tartrate 50 mg tablet 75 mg PO Q12H 08/26/23 11/19/24 History pantoprazole 40 mg tablet,delayed 40 mg PO BID 08/26/23 11/19/24 History release pregabalin 200 mg capsule 200 mg PO Q8H 08/26/23 11/19/24 History primidone 50 mg tablet 100 mg PO .QHS 08/26/23 11/19/24 History sennosides 8.6 mg tablet (senna) 17.2 mg PO BID PRN constipation 08/26/23 11/19/24 History aripiprazole 5 mg tablet 5 mg PO DAILY 11/19/24 11/19/24 History oxycodone 15 mg tablet 15 mg PO Q6H PRN pain 11/19/24 11/19/24 History spironolactone 50 mg tablet 50 mg PO DAILY 11/19/24 11/19/24 History Allergies Allergy/AdvReac Type Severity Reaction Status Date / Time paroxetine (From Paxil) Allergy Intermediate Hallucinati Verified 10/15/23 21:10 ng venlafaxine (From Effexor) Allergy Intermediate Hallucinati Verified 10/15/23 21:10 ng Exam Narrative Exam Narrative: General: Patient is alert, and oriented to person, place and time but appears very anxious and tremulous when answering questions Skin: no visible rashes, or ulcers Head: atraumatic, acephalic Eyes: PERRLA, no nystagmus present, conjunctiva clear, no scleral icterus Ears: normal gross auditory acuity Neck: no masses palpated Heart: Normal rate and rhythm, no murmurs/rubs/gallops Lungs: no audible wheezes, crackles and normal breath sounds all lung parry Abdomen: Normal audible bowel sounds, no distension, No palpable masses, no organomegaly, no rebound/guarding/ or rigidity Musculoskeletal: muscle atrophy noted, ROM is limited due to being in hospital bed, no swelling bilateral lower extremities Neuro: CN II-X grossly intact Constitutional Vital Signs, click to edit/add: Last Vital Signs BP 119/92 H 11/19/24 04:16 Pulse Ox 93 L 11/19/24 06:14 Results Labs Labs: Short CBC 11/19/24 Range/Units 02:07 WBC 9.7 (4.0-11.0) 10^3/uL Hgb 13.0 L (14.0-18.0) g/dL Hct 37.9 L (42.0-54.0) % Plt Count 381 (150-450) 10^3/uL BMP 11/19/24 02:07 Sodium 136 Potassium 4.1 Chloride 98 Carbon Dioxide 33.3 H BUN 15.0 Creatinine 1.30 Glucose 108 H Calcium 9.4 ABG ABG results: 11/19/24 05:44 ABG pH 7.625 H* ABG pCO2 22.2 L ABG pO2 72.3 L ABG HCO3 23.1 ABG O2 Saturation 96.0 ABG Base Excess 2.0 Assessment and Plan Assessment and Plan (1) Community acquired bacterial pneumonia: Assessment and Plan: CTA pending at this time, patient medsurg stepdown for closer monitoring of respiratory status given elevated D-dimer. Continue Rocephin and Azith, blood cultures pending. IV solumedrol 40mg [id number], neb treatments, pulmicort and OPEP. (2) Acute hypoxic respiratory failure: Assessment and Plan: secondary to #1, patient uses 3 L at home and was requiring 6L with hyperventilation RR 32 on admission. elevated D-dimer and CTA pending (3) Hypertension: Assessment and Plan: elevated at 141/100, Will give morning meds now, losartan, metoprolol, spironolactone Qualifiers: Hypertension type: primary hypertension Qualified Code(s): I10 - Essential (primary) hypertension (4) Multiple sclerosis: Assessment and Plan: Will check UDS, continue oxycodone, pregabalin, and baclofen (5) Chronic respiratory failure with hypoxia: Assessment and Plan: continue neb treatments (6) COPD (chronic obstructive pulmonary disease): Assessment and Plan: continue with nebs and IV steroids Qualifiers: COPD type: emphysema Emphysema type: panlobular Qualified Code(s): J43.1 - Panlobular emphysema (7) Depression with anxiety: Assessment and Plan: continue home meds, has received some IV Ativan which helped symptoms. Plan Patient is a full code Lovenox for DVT prophylaxis Patient is observation status and is not expected to stay more than 2 days.
--- OUTSIDE RECORDS SUMMARY | 2024-11-19 10:07 | XMS_ITS | CCD ---
Author Organization [facility] Care Team Providers Care Locomotive Inspector Name Role Phone Tunde Das Admitting Unavailable Tunde Das Attending Unavailable Bubba Ghotra Primary Care Unavailable BUBBA GHOTRA Primary Care Physician [phone] Heri MURRELL Referring Unavailable Heri MURRELL Admitting [...] Unavaila ble MISC, DR MASON Attending Unavailable ERBA PURCELL Consulting Unavailable ROMERO ., DR LISA Schwartz Attending Unavailable GARRETT ., JULIA Consulting Unavailable ROMERO ., DR LISA Schwartz Admitting Unavailable HEMEYER ., DR PEREIRA Primary Care Unavailable Mahnaz Roth Unavailable Bubba Ghotra MD Primary Care Provider [phone] Bubba Ghotra MD Unavailable [phone] Elaina Payton Unavailable Kenna Lockett RN Unavailable Maty Win MD Unavailable Bubba Ghotra MD Primary Care Provider Bubba Ghotra MD Unavailable Bubba Ghotra MD Primary Care Provider Bubba Ghotra MD Unavailable Bubba Ghotra MD [...] [paroxetine] Drug Allergy 4 Mild (qualifier value) [facility] (2 sources) PARoxetine Drug Allergy 3 [facility] (12 sources) venlafaxine Drug Allergy 3 Unknown [facility] (20 sources) venlafaxine Drug Allergy 3 Unknown Reaction [facility] (20 sources) PARoxetine Drug Allergy 2 Rash [...] procedure., # 14 tab(s), Refills(s) 0, Pharmacy: [facility]/pharmacy #[id number], 178, cm, 10/14/21 12:57:00 EDT, [...] Start: 08-06-2021 take 2 tablets by mo [facility] twice daily Trileptal 300 mg Tab 600 [...] Start: 08-06-2021 take 1 capsule by mo [facility] three times daily Lyrica 200 mg Cap 200 mg = 1 cap(s), Oral, TID, Refills(s) 0 Start Date: 08/06/21 Status: Ordered take 1 capsule by mo [facility] once daily at bedtime [...] Qty: 120 Tablet; Provider: Ira Chaudhry sennosides, senior care 8.6 mg oral tablet (20 sources) Start: [...] minutes 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, 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 1 tablet 06/22/2024 08/30/2024 Discontinued (Therapy completed) Start: 10-14-2021 Valium 10 mg T ab 10 mg = 1 tab(s), Oral, Once, Take 1/2 hour prior to procedure, # 1 tab(s), Refills(s) 0, Pharmacy: [facility]/pharmacy #[id number], 178, cm, 10/14/21 12:57:00 EDT, [...] 09-15-2023 Chronic Other aftercare (1 source) Other detention (current) drug therapy; Translations: [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] Onset: 3 Episodic Other aftercare (10 sources) Seen by palliative care physician; Translations: [Encounter for palliative care] Episodic Other aftercare (1 source) Encounter for palliative care Episodic Other aftercare (6 sources) Long-term current use of drug therapy; Translations: [snf (current) use of opiate analgesic] 09-10-2023 Episodic Other aftercare (1 source) snf (current) use of opiate analgesic; Translations: [Long-term (current) use of other medications] 09-17-2023 Episodic Other aftercare (20 sources) Polypharmacy ; Translations: [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 ALL CBC WITH AUTO DIFFon BASOPHILS ABSOLUTE AUTO 0.[address] [facility] Basophils/100 WBC (Bld) 1.9 % 0.2 - 2.0 % [facility] Eosinophils/100 WBC (Bld) 1.6 % 0.9 - 7.0 % [facility] Erythrocyte distribution width (RBC) [Ratio] 13.2 % 11.0 - 15.0 % [facility] Hematocrit (Bld) [Volume fraction] 41.1 % Low 42.0 - 54.0 % [facility] Hemoglobin (Bld) [Mass/Vol] 13.9 g/dL Low 14.0 - 18.0 g/dL [facility] IMMATURE GRANULOCYTES ABS AUTO 0.[address] [facility] Immature granulocytes/100 WBC (Bld) 0.4 % 0.0 - 0.5 % [facility] Interpretation and review of laboratory results Abnormal [facility] LYMPHOCYTES ABSOLUTE AUTO 1.[address] [facility] Lymphocytes/100 WBC (Bld) 22.8 % 20.5 - 60.0 % [facility] MCH (RBC) [Entitic mass] 29.8 pg 25.9 - 34.[address] [facility] MCHC (RBC) [Mass/Vol] 33.8 g/dL 29.9 - 35.2 g/dL [facility] MCV (RBC) [Entitic vol] 88.2 fL 80.0 - 94.[address] [facility] MONOCYTES ABSOLUTE AUTO 0.[address] [facility] Monocytes/100 WBC (Bld) 6.2 % 1.7 - 12.0 % [facility] NEUTROPHILS ABSOLUTE AUTO 5.[address] [facility] Neutrophils/100 WBC (Bld) 67.1 % 43.0 - 75.0 % [facility] Platelet mean volume (Bld) [Entitic vol] 9.3 fL Low 9.5 - 13.[address] [facility] TBH EO # 0.1 [facility] PLT 382 [facility] RBC 4.66 Low [facility] WBC 7.[address] [facility] AMYLASEon 11-13-2022 Amylase [Catalytic activity/Vol] 37 U/L Normal 25-115 [facility] Comment on above: Performed By: #### A MY, CMP, LIPA ####[facility] [address] [address]Dr. Cortez Younger CBC AUTO DIFFon 11-13-2022 BASO # 0.1 103/ul Normal 0.0-0.1 [facility] Comment on above: Performed By: #### C BC #### [facility] [address] [address] [address] Cortez Younger Basophils/100 WBC (Bld) 1.3 % Normal 0.2-2.0 [facility] Comment on above: Performed By: #### C BC #### [facility] [address] [address] [address] Cortez Younger EO # 0.1 103/ul Normal 0.0-0.7 [facility] Comment on above: Performed By: #### C BC #### [facility] [address] [address] [address] Cortez Younger Eosinophils/100 WBC (Bld) 0.9 % Normal 0.9-7.0 [facility] Comment on above: Performed By: #### C BC #### [facility] [address] [address] [address] Cortez Younger Erythrocyte distribution width (RBC) [Ratio] 12.5 % Normal 11.0-15.0 [facility] Comment on above: Performed By: #### C BC #### [facility] [address] [place] [address] Dr. Cortez Younger Hematocrit (Bld) [Volume fraction] 42.3 % Normal 42.0-54.0 [facility] Comment on above: Performed By: #### C BC #### [facility] [address] [place] [address] Dr. Cortez Younger Hemoglobin (Bld) [Mass/Vol] 15.1 g/dL Normal 14.0-18.0 [facility] Comment on above: Performed By: #### C BC #### [facility] [address] [place] [address] Dr. Cortez Younger IG # 0.04 10e3/ul Critically high 0.00-0.03 [facility] Comment on above: Performed By: #### C BC #### [facility] [address] [place] [address] Dr. Cortez Younger IG % 0.6 % Critically high 0.0-0.5 [facility] Comment on above: Performed By: #### C BC #### [facility] [address] [place] [address] Dr. Cortez Younger LYMPH # 1.4 103/ul Normal 1.2-3.8 [facility] Comment on above: Performed By: #### C BC #### [facility] [address] [place] [address] Dr. Cortez Younger Lymphocytes/100 WBC (Bld) 20.7 % Normal 20.5-60.0 [facility] Comment on above: Performed By: #### C BC #### [facility] [address] [place] [address] Dr. Cortez Younger MANUAL DIFF REQ NO Normal [facility] Comment on above: Performed By: #### C BC #### [facility] [address] [place] [address] Dr. Cortez Yuonger MCH (RBC) [Entitic mass] 31.6 pg Normal 25.9-34.0 [facility] Comment on above: Performed By: #### C BC #### [facility] [address] [place] [address] Dr. Cortez Younger MCHC (RBC) [Mass/Vol] 35.7 g/dL Critically high 29.9-35.2 [facility] Comment on above: Performed By: #### C BC #### [facility] [address] [place] [address] Dr. Cortez Younger MCV (RBC) [Entitic vol] 88.5 fL Normal 80.0-94.0 [facility] Comment on above: Performed By: #### C BC #### [facility] [address] [place] [address] Dr. Cortez Younger MONO # 0.5 103/ul Normal 0.3-0.8 [facility] Comment on above: Performed By: #### C BC #### [facility] [address] [place] [address] Dr. Cortez Younger Monocytes/100 WBC (Bld) 7.7 % Normal 1.7-12.0 [facility] Comment on above: Performed By: #### C BC #### [facility] [address] [place] [address] Dr. Cortez Younger NEUT # 4.8 103/ul Normal 1.4-6.5 [facility] Comment on above: Performed By: #### C BC #### [facility] [address] [place] [address] Dr. Cortez Younger Neutrophils/100 WBC (Bld) 68.8 % Normal 43.0-75.0 [facility] Comment on above: Performed By: #### C BC #### [facility] [address] [place] [address] Dr. Cortez Younger Platelet mean volume (Bld) [Entitic vol] 9.0 fL Critically low 9.5-13.5 [facility] Comment on above: Performed By: #### C BC #### [facility] [address] [place] [address] Dr. Cortez Younger PLT 384 103/ul Normal 150-450 [facility] Comment on above: Performed By: #### C BC #### [facility] [address] [place] [address] Dr. Cortez Younger RBC 4.78 106/ul Normal 4.70-6.10 [facility] Comment on above: Performed By: #### C BC #### [facility] [address] [address] [address] Cortez Younger WBC 7.0 103/ul Normal 4.0-11.0 [facility] Comment on above: Performed By: #### C BC #### [facility] [address] [address] [address] Cortez Younger ER URINE PROFILEon 3 Bilirubin Ql (U) Negative Normal NEGATIVE [facility] Comment on above: Performed By: #### E RUR ####[facility] [address] [place], [place] [address]Dr. Cortez Younger Clarity (U) CLEAR Normal CLEAR [facility] Comment on above: Performed By: #### E RUR ####[facility] [address] [place], [place] [address]Dr. Cortze Younger Color (U) LT. YELLOW Normal YELLOW [facility] Comment on above: Performed By: #### E RUR ####[facility] [address] [place], [place] [address]Dr. Cortez Younger ERUAHD A micrscopic examina tion will be performed if indicated. Normal [facility] Comment on above: Performed By: #### E RUR ####[facility] [address] [address]Dr. Cortez Younger Glucose Ql (U) Negative Normal NEGATIVE [facility] Comment on above: Performed By: #### E RUR ####[facility] [address] [place], [place] [address]Dr. Cortez Younger Hemoglobin Ql (U) Negative Normal NEGATIVE [facility] Comment on above: Performed By: #### E RUR ####[facility] [address] [place] [address]Dr. Cortez Younger Ketones Ql (U) Negative Normal NEGATIVE [facility] Comment on above: Performed By: #### E RUR ####[facility] [address] [place] [address]Dr. Cortez Yonuger LEUKOCYTES Negative Normal NEGATIVE [facility] Comment on above: Performed By: #### E RUR ####[facility] [address] [address]Dr. Cortez Younger Nitrite Ql (U) Negative Normal NEGATIVE [facility] Comment on above: Performed By: #### E RUR ####[facility] [address] [place], [place] [address]Dr. Cortez Younger pH (U) 7.5 [pH] Normal 5-9 [facility] Comment on above: Performed By: #### E RUR ####[facility] [address] [place], [place] [address]Dr. Cortez Younger SPEC GRAVITY <=1.005 Abnormal 1.005-<=1.025 [facility] Comment on above: Performed By: #### E RUR ####[facility] [address] [place], [place] [address]Dr. Cortez Younger UA PROTEIN Negative Normal NEGATIVE/ TRACE [facility] Comment on above: Performed By: #### E RUR ####[facility] [address] [place], [place] [address]Dr. Cortez Younger UR MICRO IND NOT INDICATED Normal [facility] Comment on above: Performed By: #### E RUR ####[facility] [address] [place], [place] [address]Dr. Cortez Younger Urobilinogen Qn (U) 0.2 {Fidelia'U}/dL Normal 0.2 - 1.0 [facility] Comment on above: Performed By: #### E RUR ####[facility] [address] [place], [place] [address]Dr. Cortez Younger LIPASEon 11-13-2022 Lipase [Catalytic activity/Vol] 111.0 U/L Normal 73.0-393.0 [facility] Comment on above: Performed By: #### A MY, CMP, LIPA ####[facility] [address] [address]Dr. Cortez Younger PROF 14(COMP METB)on 023 Albumin [Mass/Vol] 3.9 g/dL Normal 3.4-5.0 [facility] Comment on above: Performed By: #### A MY, CMP, LIPA ####[facility] [address] [place] [address]Dr. Cortez Younger Albumin/Globulin [Mass ratio] 1.4 {ratio} Normal [facility] Comment on above: Performed By: #### A MY, CMP, LIPA ####[facility] [address] [place] [address]Dr. Cortez Younger ALP [Catalytic activity/Vol] 70 U/L Normal 46-116 [facility] Comment on above: Performed By: #### A MY, CMP, LIPA ####[facility] [address] [place] [address]Dr. Cortez Younger ALT [Catalytic activity/Vol] 24 U/L Normal 16-63 [facility] Comment on above: Performed By: #### A MY, CMP, LIPA ####[facility] [address] [address]Dr. Cortez Younger Anion gap [Moles/Vol] 9.8 mmol/L Normal [facility] Comment on above: Performed By: #### A MY, CMP, LIPA ####[facility] [address] [address]Dr. Cortez Younger AST [Catalytic activity/Vol] 12 U/L Critically low 15-37 [facility] Comment on above: Performed By: #### A MY, CMP, LIPA ####[facility] [address] [place] [address]Dr. Cortez Younger Bilirubin [Mass/Vol] 0.3 mg/dL Normal 0.2-1.0 [facility] Comment on above: Performed By: #### A MY, CMP, LIPA ####[facility] [address] [place] [address]Dr. Cortez Younger Calcium [Mass/Vol] 9.2 mg/dL Normal 8.5-10.1 [facility] Comment on above: Performed By: #### A MY, CMP, LIPA ####[facility] [address] [place] [address]Dr. Cortez Younger Chloride [Moles/Vol] 98 mmol/L Normal 98-107 [facility] Comment on above: Performed By: #### A MY, CMP, LIPA ####[facility] [address] [place], [place] [address]Dr. Cortez Younger CO2 [Moles/Vol] 28.7 mmol/L Normal 21.0-32.0 [facility] Comment on above: Performed By: #### A MY, CMP, LIPA ####[facility] [address] [place], [place] [address]Dr. Cortez Younger Creatinine [Mass/Vol] 0.88 mg/dL Normal 0.70-1.30 [facility] Comment on above: Performed By: #### A MY, CMP, LIPA ####[facility] [address] [place], [place] [address]Dr. Cortez Younger EGFR-AF ISRAELI >60 Normal >=60 [facility] Comment on above: Performed By: #### A MY, CMP, LIPA ####[facility] [address] [place], [place] [address]Dr. Cortez Younger EGFR-NON AF ISRAELI >60 Normal >=60 [facility] Comment on above: Performed By: #### A MY, CMP, LIPA ####[facility] [address] [place], [place] [address]Dr. Cortez Younger Globulin (S) [Mass/Vol] 2.7 g/dL Normal [facility] Comment on above: Performed By: #### A MY, CMP, LIPA ####[facility] [address] [place], [place] [address]Dr. Cortez Younger Glucose [Mass/Vol] 105 mg/dL Normal 74-106 [facility] Comment on above: Performed By: #### A MY, CMP, LIPA ####[facility] [address] [address]Dr. Cortez Younger Potassium [Moles/Vol] 3.5 mmol/L Normal 3.5-5.1 [facility] Comment on above: Performed By: #### A MY, CMP, LIPA ####[facility] [address] [place] [address]Dr. Cortez Younger Protein [Mass/Vol] 6.6 g/dL Normal 6.4-8.2 [facility] Comment on above: Performed By: #### A MY, CMP, LIPA ####[facility] [address] [address]Dr. Cortez Younger Sodium [Moles/Vol] 133 mmol/L Critically low 136-145 [facility] Comment on above: Performed By: #### A MY, CMP, LIPA ####[facility] [address] [address]Dr. Cortez Younger Urea nitrogen [Mass/Vol] 4.0 mg/dL Critically low 7.0-18.0 [facility] Comment on above: Performed By: #### A MY, CMP, LIPA ####[facility] [address] [place] [address]Dr. Cortez Younger Urea nitrogen/Creatinin e [Mass ratio] 4.5 mg/mg Normal [facility] Comment on above: Performed By: #### A MY, CMP, LIPA ####[facility] [address] [address]Dr. Cortez Younger XR ABD FLAT UP_PA Farideh [...] by: CRUZITO CRENSHAW Date: 2022-11-13 13:22 Normal [facility] FREE T4on 10-31-2022 Free T4 [Mass/Vol] 1.03 ng/dL Normal 0.76-1.46 [facility] Comment on above: Performed By: #### E RUR #### [facility] [address] [place] [address] Dr. Cortez Younger LIPID PROFILEon 10-31-2022 CHOL-HDL RATIO NORM SEE BELOW Normal [facility] Comment on above: Result Comment: 3.3 - 4.4 LOW RISK 4.4 - 7.1 AVERAGE RISK 7.1 - 11.0 MODERATE RISK >11.0 HIGH RISK Performed By: #### E RUR #### [facility] [address] [place] [address] Dr. Cortez Younger Cholesterol [Mass/Vol] 165 mg/dL Normal <=200 [facility] Comment on above: Performed By: #### E RUR #### [facility] [address] [place] [address] Dr. Cortez Younger Cholesterol in HDL [Mass/Vol] 59 mg/dL Normal 40-60 [facility] Comment on above: Performed By: #### E RUR #### [facility] [address] [place] [address] Dr. Cortez Younger Cholesterol in LDL [Mass/Vol] 83.8 mg/dL Normal [facility] Comment on above: Performed By: #### E RUR #### [facility] [address] [place] [address] Dr. Cortez Younger Cholesterol.total/ Cholesterol in HDL [Mass ratio] 2.8 {ratio} Normal [facility] Comment on above: Performed By: #### E RUR #### [facility] [address] [place] [address] Dr. Cortez Younger HDL NORMAL > or = 60 mg/dl - LO W CARDIOVASCULAR RISK <40 mg/dl - HIGH CARDIOVASCULAR RISK Normal [facility] Comment on above: Performed By: #### E RUR #### [facility] [address] [place] [address] Dr. Cortez Younger LDL CALC NORMAL SEE BELOW Normal [facility] Comment on above: Result Comment: <100 mg/dl OPTIMAL 100 - 129 mg/dl NEAR OR ABOVE OPTIMAL 130 - 159 mg/dl BORDERLINE HIGH 160 - 189 mg/dl HIGH >190 mg/dl VERY HIGH Performed By: #### E RUR #### [facility] [address] [place], [place] [address] Dr. Cortez Younger Triglyceride [Mass/Vol] 111 mg/dL Normal <=150 [facility] Comment on above: Performed By: #### E RUR #### [facility] [address] [place], [place] [address] Dr. Cortez Younger VLDL CALC 22.2 mg/dL Normal [facility] Comment on above: Performed By: #### E RUR #### [facility] [address] [place], [place] [address] Dr. Cortez Younger MRI BRAIN WO W [...] demyelination. 2. Unremarkable orbits. Electronically authenticated by: EVRN LU Date: 2022-10-31 13:12 Normal [facility] PROF 14(COMP METB)on 023 Albumin [Mass/Vol] 4.0 g/dL Normal 3.4-5.0 [facility] Comment on above: Performed By: #### C MP ####[facility] [address] [address]Dr. Cortez Younger Albumin/Globulin [Mass ratio] 1.3 {ratio} Normal [facility] Comment on above: Performed By: #### C MP ####[facility] [address] [address]Dr. Cortez Younger ALP [Catalytic activity/Vol] 66 U/L Normal 46-116 [facility] Comment on above: Performed By: #### C MP ####[facility] [address] [place] [address]Dr. Cortez Younger ALT [Catalytic activity/Vol] 21 U/L Normal 16-63 [facility] Comment on above: Performed By: #### C MP ####[facility] [address] [place], [place] [address]Dr. Eleanorvalerie Younger Anion gap [Moles/Vol] 9.4 mmol/L Normal [facility] Comment on above: Performed By: #### C MP ####[facility] [address] [place], [place] [address]Dr. Cortez Younger AST [Catalytic activity/Vol] 10 U/L Critically low 15-37 [facility] Comment on above: Performed By: #### C MP ####[facility] [address] [place] [address]Dr. Cortez Younger Bilirubin [Mass/Vol] 0.4 mg/dL Normal 0.2-1.0 [facility] Comment on above: Performed By: #### C MP ####[facility] [address] [address]Dr. Cortez Younger Calcium [Mass/Vol] 9.1 mg/dL Normal 8.5-10.1 [facility] Comment on above: Performed By: #### C MP ####[facility] [address] [address]Dr. Cortez Younger Chloride [Moles/Vol] 98 mmol/L Normal 98-107 [facility] Comment on above: Performed By: #### C MP ####[facility] [address] [place] [address]Dr. Cortez Younger CO2 [Moles/Vol] 29.8 mmol/L Normal 21.0-32.0 [facility] Comment on above: Performed By: #### C MP ####[facility] [address] [place], [place] [address]Dr. Cortez Younger Creatinine [Mass/Vol] 0.89 mg/dL Normal 0.70-1.30 [facility] Comment on above: Performed By: #### C MP ####[facility] [address] [place], [place] [address]Dr. Cortez Aren EGFR-AF ISRAELI >60 Normal >=60 [facility] Comment on above: Performed By: #### C MP ####[facility] [address] [place], [place] [address]Dr. Cortez Aren EGFR-NON AF ISRAELI >60 Normal >=60 [facility] Comment on above: Performed By: #### C MP ####[facility] [address] [place], [place] [address]Dr. Cortez Aren Globulin (S) [Mass/Vol] 3.1 g/dL Normal [facility] Comment on above: Performed By: #### C MP ####[facility] Y[address] [place], [place] [address]Dr. Cortez Aren Glucose [Mass/Vol] 109 mg/dL Critically high 74-106 [facility] Comment on above: Performed By: #### C MP ####[facility] M[address] [place], [place] [address]Dr. Eleanorvalerie Aren Potassium [Moles/Vol] 4.2 mmol/L Normal 3.5-5.1 [facility] Comment on above: Performed By: #### C MP ####[facility] Ukvonn[address] [place], [place] [address]Dr. Cortez Younger Protein [Mass/Vol] 7.1 g/dL Normal 6.4-8.2 [facility] Comment on above: Performed By: #### C MP ####[facility] [address] [place] [address]Dr. Cortez Younger Sodium [Moles/Vol] 133 mmol/L Critically low 136-145 Th [facility] Comment on above: Performed By: #### C MP ####[facility] [address] [place] [address]Dr. Cortez Younger Urea nitrogen [Mass/Vol] 7.0 mg/dL Normal 7.0-18.0 [facility] Comment on above: Performed By: #### C MP ####[facility] [address] [place] [address]Dr. Cortez Younger Urea nitrogen/Creatinin e [Mass ratio] 7.9 mg/mg Normal [facility] Comment on above: Performed By: #### C MP ####[facility] [address] [place] [address]Dr. Cortez Younger TSHon 10-31-2022 TSH 1.574 uIU/mL Normal 0.358-3.740 [facility] Comment on above: Performed By: #### T SH #### [facility] [address] [place] [address] Dr. Cortez Younger COMPLIANCE DRUG SCREENon PDF . Normal [facility] Comment on above: Performed By: #### E RUR #### [facility] [address] [place] [address] Dr. Cortez Younger Summary FINAL Normal [facility] Comment on above: Result Comment: = [...] test is not intended to distinguish between mrmmh-5-batfkvzjxgrgkareupzv, the predominant form of THC in most herbal or marijuana-based products, and nqgvh-[id number]. Norhydrocodone 1620 ng/mg creat Norhydrocodone is an [...] = Performed By: #### E RUR #### [facility] [address] [place] [address] Dr. Cortez Younger HYDROCODONE AND METABOLITE, URINEon 10-24-2022 Hydrocodone 55 ng/mL Normal [facility] Comment on above: Performed By: #### E RUR #### [facility] [address] [place] [address] Dr. Cortez Younger Hydromorphone Negative Normal [facility] Comment on above: Result Comment: This test was developed and its performance characteristics determined by [employer]. It has not been cleared or approved by the Food and Drug Administration. Performed By: #### E RUR #### [facility] [address] [place] [address] Dr. Cortez Younger OSMOLALITYon 10-20-2022 Osmolality QNSREP Normal [facility] Comment on above: Result Comment: Spec imen quantity insufficient for verification by repeat analysis. contacted Lynda at your facility on 10-20-2022 Performed By: #### C BC #### [facility] [address] [place] [address] Dr. Cortez Younger OSMOLALITY URINEon Osmolality, Urine 119 mOsmol/kg Normal [facility] Comment on above: Result Comment: 24 h r : 300 - 900 Random: 50 - 1400 After 12hr fluid restriction: >850 Performed By: #### O SMOU ####[facility] [address] [place] [address]Dr. Cortez Younger CBC AUTO DIFFon 10-16-2022 BASO # 0.0 103/ul Normal 0.0-0.1 [facility] Comment on above: Performed By: #### C BC ####[facility] B[address] [place] [phone]. Cortez Younger Basophils/100 WBC (Bld) 0.3 % Normal 0.2-2.0 [facility] Comment on above: Performed By: #### C BC ####[facility] [address] [place] [address]Dr. Cortez Younger EO # 0.0 103/ul Normal 0.0-0.7 [facility] Comment on above: Performed By: #### C BC ####[facility] Sw[address]tf[address] [place], [place] [address]Dr. Cortez Younger Eosinophils/100 WBC (Bld) 0.2 % Critically low 0.9-7.0 [facility] Comment on above: Performed By: #### C BC ####[facility] Ot[address] [place], [place] [address]Dr. Cortez Younger Erythrocyte distribution width (RBC) [Ratio] 12.1 % Normal 11.0-15.0 [facility] Comment on above: Performed By: #### C BC ####[facility] M[address] [place], [place] [address]Dr. Cortez Younger Hematocrit (Bld) [Volume fraction] 45.9 % Normal 42.0-54.0 [facility] Comment on above: Performed By: #### C BC ####[facility] [address]uz[address] [place], [place] [address]Dr. Cortez Younger Hemoglobin (Bld) [Mass/Vol] 16.7 g/dL Normal 14.0-18.0 [facility] Comment on above: Performed By: #### C BC ####[facility] [address] [place], [place] [address]Dr. Cortez Younger IG # 0.06 10e3/ul Critically high 0.00-0.03 [facility] Comment on above: Performed By: #### C BC ####[facility] [address] [place], [place] [address]Dr. Cortez Younger IG % 0.5 % Normal 0.0-0.5 [facility] Comment on above: Performed By: #### C BC ####[facility] [address] [place] [phone] Younger LYMPH # 1.5 103/ul Normal 1.2-3.8 [facility] Comment on above: Performed By: #### C BC ####[facility] [address]zefeff[address] [place] [phone]. Cortez Younger Lymphocytes/100 WBC (Bld) 13.5 % Critically low 20.5-60.0 [facility] Comment on above: Performed By: #### C BC ####[facility] [address] [place] [address]DrFish Younger MANUAL DIFF REQ NO Normal [facility] Comment on above: Performed By: #### C BC ####[facility] [address] [place] [phone] Younger MCH (RBC) [Entitic mass] 31.2 pg Normal 25.9-34.0 [facility] Comment on above: Performed By: #### C BC ####[facility] [address]zmp[address] [place] [phone]. Cortez Younger MCHC (RBC) [Mass/Vol] 36.4 g/dL Critically high 29.9-35.2 [facility] Comment on above: Performed By: #### C BC ####[facility] [address] [place] [phone] Younger MCV (RBC) [Entitic vol] 85.6 fL Normal 80.0-94.0 [facility] Comment on above: Performed By: #### C BC ####[facility] [address]ui[address] [place] [phone] Younger MONO # 0.6 103/ul Normal 0.3-0.8 [facility] Comment on above: Performed By: #### C BC ####[facility] [address] [place] [phone] Younger Monocytes/100 WBC (Bld) 5.4 % Normal 1.7-12.[address] [facility] Comment on above: Performed By: #### C BC ####[facility] [address] [place] [phone]. Cortez Younger NEUT # 8.9 103/ul Critically high 1.4-6.5 [facility] Comment on above: Performed By: #### C BC ####[facility] [address] [place] [phone]. Cortez Younger Neutrophils/100 WBC (Bld) 80.1 % Critically high 43.0-75.0 [facility] Comment on above: Performed By: #### C BC ####[facility] V[address] [place] [phone]. Cortez Younger Platelet mean volume (Bld) [Entitic vol] 9.7 fL Normal 9.5-13.5 [facility] Comment on above: Performed By: #### C BC ####[facility] [address] [place] [phone]. Cortez Younger PLT 364 103/ul Normal 150-450 [facility] Comment on above: Performed By: #### C BC ####[facility] [address] [place] [phone]. Cortez Younger RBC 5.36 106/ul Normal 4.70-6.10 [facility] Comment on above: Performed By: #### C BC ####[facility] [address]kt[address] [place] [phone]. Cortez Younger WBC 11.1 103/ul Critically high 4.0-11.0 [facility] Comment on above: Performed By: #### C BC ####[facility] [address] [place] [phone]. Cortez Younger Covid-19 PCR ([facility])on SARS-CoV-2 (COVID-19) RNA AXEL+probe Ql (Unsp spec) Not detected Normal NOT DETECTED [facility] Comment on above: Result Comment: [...] for this test is supported by the Storeperson of Health and Human Service's declaration that [...] be used). Performed By: #### C VDTBH ####[facility] [address] [place] [address]Dr. Cortez Younger DRUG SCREEN RAPID (URINE)on 10-16-2022 AMP Negative Normal NEGATIVE [facility] Comment on above: Performed By: #### C BC #### [facility] [address] [place] [address] Dr. Cortez Younger BAR Positive Abnormal NEGATIVE [facility] Comment on above: Performed By: #### C BC #### [facility] [address] [place] [address] Dr. Cortez Younger BUP Negative Normal NEGATIVE [facility] Comment on above: Performed By: #### C BC #### [facility] [address] [place] [address] Dr. Cortez Younger BZO Positive Abnormal NEGATIVE [facility] Comment on above: Performed By: #### C BC #### [facility] [address] [place] [address] Dr. Cortez Younger OK Negative Normal NEGATIVE [facility] Comment on above: Performed By: #### C BC #### [facility] [address] [place] [address] Dr. Cortez Younger CUT-OFFS SEE BELOW Normal [facility] Comment on above: Result Comment: AMP [...] ng/mL Performed By: #### C BC #### [facility] [address] [place] [address] Dr. Cortez Younger DRUG CUT HEADER DRUG CLASS TEST SYST EM CUT-OFF CONCENTRATIONS ARE FOLLOWS: Normal [facility] Comment on above: Performed By: #### C BC #### [facility] [address] [place] [address] Dr. Cortez Younger mAMP Negative Normal NEGATIVE [facility] Comment on above: Performed By: #### C BC #### [facility] [address] [place] [address] Dr. Cortez Younger MTD Negative Normal NEGATIVE [facility] Comment on above: Performed By: #### C BC #### [facility] [address] [place] [address] Dr. Cortez Younger OPI Positive Abnormal NEGATIVE [facility] Comment on above: Performed By: #### C BC #### [facility] [address] [place] [address] Dr. Cortez Younger OXY Negative Normal NEGATIVE [facility] Comment on above: Performed By: #### C BC #### [facility] [address] [place] [address] Dr. Cortez Younger PCP Negative Normal NEGATIVE [facility] Comment on above: Performed By: #### C BC #### [facility] [address] [place] [address] Dr. Cortez Younger PPX Negative Normal NEGATIVE [facility] Comment on above: Performed By: #### C BC #### [facility] [address] [place] [address] Dr. Cortez Younger TCA Negative Normal NEGATIVE [facility] Comment on above: Performed By: #### C BC #### [facility] [address] [address] [address] Cortez Younger THC Positive Abnormal NEGATIVE [facility] Comment on above: Performed By: #### C BC #### [facility] [address] [place] [address] Dr. Cortez Younger ER URINE PROFILEon 3 Bilirubin Ql (U) Negative Normal NEGATIVE [facility] Comment on above: Performed By: #### C BC #### [facility] [address] [place] [address] Dr. Cortez Younger Clarity (U) CLEAR Normal CLEAR [facility] Comment on above: Performed By: #### C BC #### [facility] [address] [place] [address] Dr. Cortez Younger Color (U) LT. YELLOW Normal YELLOW [facility] Comment on above: Performed By: #### C BC #### [facility] [address] [place] [address] Dr. Cortez Younger ERUAHD A micrscopic examina tion will be performed if indicated. Normal [facility] Comment on above: Performed By: #### C BC #### [facility] [address] [place] [address] Dr. Cortez Younger Glucose Ql (U) Negative Normal NEGATIVE [facility] Comment on above: Performed By: #### C BC #### [facility] [address] [place] [address] Dr. Cortez Younger Hemoglobin Ql (U) Negative Normal NEGATIVE [facility] Comment on above: Performed By: #### C BC #### [facility] [address] [place] [address] Dr. Cortez Younger Ketones Ql (U) Negative Normal NEGATIVE [facility] Comment on above: Performed By: #### C BC #### [facility] [address] [place] [address] Dr. Cortez Younger LEUKOCYTES Negative Normal NEGATIVE [facility] Comment on above: Performed By: #### C BC #### [facility] [address] [place], [place] [id number] Dr. Cortez Younger Nitrite Ql (U) Negative Normal NEGATIVE [facility] Comment on above: Performed By: #### C BC #### [facility] [address] [place] [address] Dr. Cortez Younger pH (U) 7.5 [pH] Normal 5-9 [facility] Comment on above: Performed By: #### C BC #### [facility] [address] [place] [address] Dr. Cortez Younger SPEC GRAVITY <=1.005 Abnormal 1.005-<=1.025 [facility] Comment on above: Performed By: #### C BC #### [facility] [address] [place] [address] Dr. Cortez Younger UA PROTEIN Negative Normal NEGATIVE/ TRACE [facility] Comment on above: Performed By: #### C BC #### [facility] [address] [place] [address] Dr. Cortez Younger UR MICRO IND NOT INDICATED Normal [facility] Comment on above: Performed By: #### C BC #### [facility] [address] [place] [address] Dr. Cortez Younger Urobilinogen Qn (U) 0.2 {Fidelia'U}/dL Normal 0.2 - 1.0 [facility] Comment on above: Performed By: #### C BC #### [facility] [address] [place] [address] Dr. Cortez Younger NAon 10-16-2022 Sodium [Moles/Vol] 125 mmol/L Critically low 136-145 [facility] Comment on above: Performed By: #### E RUR #### [facility] [address] [place] [address] Dr. Cortez Younger POTASSIUM URINEon 10-16-2022 UR POTASSIUM 11.8 mmol/L Normal [facility] Comment on above: Performed By: #### K U ####[facility] [address] [place] [address]Dr. Cortez Younger PROF 14(COMP METB)on 04-06-2 023 Albumin [Mass/Vol] 4.2 g/dL Normal 3.4-5.0 [facility] Comment on above: Performed By: #### E RUR #### [facility] [address] [place] [address] Dr. Cortez Younger Albumin/Globulin [Mass ratio] 1.3 {ratio} Normal [facility] Comment on above: Performed By: #### E RUR #### [facility] [address] [place] [address] Dr. Cortez Younger ALP [Catalytic activity/Vol] 75 U/L Normal 46-116 [facility] Comment on above: Performed By: #### E RUR #### [facility] [address] [place] [address] Dr. Cortez Younger ALT [Catalytic activity/Vol] 23 U/L Normal 16-63 [facility] Comment on above: Performed By: #### E RUR #### [facility] [address] [place] [address] Dr. Cortez Younger Anion gap [Moles/Vol] 9.7 mmol/L Normal [facility] Comment on above: Performed By: #### E RUR #### [facility] [address] [place] [address] Dr. Cortez Younger AST [Catalytic activity/Vol] 16 U/L Normal 15-37 [facility] Comment on above: Performed By: #### E RUR #### [facility] [address] [place] [address] Dr. Cortez Younger Bilirubin [Mass/Vol] 0.4 mg/dL Normal 0.2-1.0 [facility] Comment on above: Performed By: #### E RUR #### [facility] [address] [place] [address] Dr. Cortez Younger Calcium [Mass/Vol] 9.1 mg/dL Normal 8.5-10.1 [facility] Comment on above: Performed By: #### E RUR #### [facility] [address] [place] [address] Dr. Cortez Younger Chloride [Moles/Vol] 88 mmol/L Critically low 98-107 [facility] Comment on above: Performed By: #### E RUR #### [facility] [address] [address] [address] Cortez Younger CO2 [Moles/Vol] 26.5 mmol/L Normal 21.0-32.0 [facility] Comment on above: Performed By: #### E RUR #### [facility] [address] [address] [address] Cortez Younger Creatinine [Mass/Vol] 0.73 mg/dL Normal 0.70-1.30 [facility] Comment on above: Performed By: #### E RUR #### [facility] [address] [address] [address] Cortez Younger EGFR-AF ISRAELI >60 Normal >=60 [facility] Comment on above: Performed By: #### E RUR #### [facility] [address] [place] [address] Dr. Cortez Younger EGFR-NON AF ISRAELI >60 Normal >=60 [facility] Comment on above: Performed By: #### E RUR #### [facility] [address] [address] [address] Cortez Younger Globulin (S) [Mass/Vol] 3.2 g/dL Normal [facility] Comment on above: Performed By: #### E RUR #### [facility] [address] [place] [address] Dr. Cortez Younger Glucose [Mass/Vol] 109 mg/dL Critically high 74-106 [facility] Comment on above: Performed By: #### E RUR #### [facility] [address] [address] [address] Cortez Younger Potassium [Moles/Vol] 4.2 mmol/L Normal 3.5-5.1 [facility] Comment on above: Performed By: #### E RUR #### [facility] [address] [address] [address] Cortez Younger Protein [Mass/Vol] 7.4 g/dL Normal 6.4-8.2 [facility] Comment on above: Performed By: #### E RUR #### [facility] [address] [address] [address] Cortez Younger Sodium [Moles/Vol] 120 mmol/L Critically low 136-145 [facility] Comment on above: Performed By: #### E RUR #### [facility] [address] [address] [address] Cortez Younger Urea nitrogen [Mass/Vol] 7.0 mg/dL Normal 7.0-18.0 [facility] Comment on above: Performed By: #### E RUR #### [facility] [address] [address] [address] Cortez Younger Urea nitrogen/Creatinin e [Mass ratio] 9.6 mg/mg Normal [facility] Comment on above: Performed By: #### E RUR #### [facility] [address] [address] [address] Cortez Younger SODIUM RANDOM URINEon 2022 Sodium (U) [Moles/Vol] 26 mmol/L Critically low 30-90 [facility] Comment on above: Performed By: #### N AU ####[facility] [address] [place] [address]Dr. Cortez Younger ACETONE SERUMon 10-07-2022 ACETONE Negative Normal NEGATIVE [facility] Comment on above: Performed By: #### E RUR #### [facility] [address] [address] [address] Cortez Younger CBC AUTO DIFFon 10-07-2022 BASO # 0.1 103/ul Normal 0.0-0.1 [facility] Comment on above: Performed By: #### C BC ####[facility] [address] [place] [address]Dr. Cortez Younger Basophils/100 WBC (Bld) 0.8 % Normal 0.2-2.0 [facility] Comment on above: Performed By: #### C BC ####[facility] [address] [place] [phone]. Cortez Younger EO # 0.0 103/ul Normal 0.0-0.7 [facility] Comment on above: Performed By: #### C BC ####[facility] [address] [place] [address]Dr. Cortez Younger Eosinophils/100 WBC (Bld) 0.2 % Critically low 0.9-7.0 [facility] Comment on above: Performed By: #### C BC ####[facility] [address] [place], [place] [address]Dr. Cortez Younger Erythrocyte distribution width (RBC) [Ratio] 12.1 % Normal 11.0-15.0 [facility] Comment on above: Performed By: #### C BC ####[facility] I[address] [place], [place] [address]Dr. Cortez Younger Hematocrit (Bld) [Volume fraction] 42.9 % Normal 42.0-54.0 [facility] Comment on above: Performed By: #### C BC ####[facility] [address] [place], [place] [address]Dr. Cortez Younger Hemoglobin (Bld) [Mass/Vol] 15.4 g/dL Normal 14.0-18.0 [facility] Comment on above: Performed By: #### C BC ####[facility] [address] [place], [place] [address]Dr. Cortez Younger IG # 0.04 10e3/ul Critically high 0.00-0.03 [facility] Comment on above: Performed By: #### C BC ####[facility] [address] [place], [place] [address]Dr. Cortez Younger IG % 0.4 % Normal 0.0-0.5 [facility] Comment on above: Performed By: #### C BC ####[facility] [address] [place], [place] [address]Dr. Cortez Younger LYMPH # 1.3 103/ul Normal 1.2-3.8 [facility] Comment on above: Performed By: #### C BC ####[facility] Qznighzini[address] [place], [place] [address]Dr. Cortez Aren Lymphocytes/100 WBC (Bld) 13.7 % Critically low 20.5-60.0 [facility] Comment on above: Performed By: #### C BC ####[facility] [address] [place] [address]Dr. Cortez Younger MANUAL DIFF REQ NO Normal [facility] Comment on above: Performed By: #### C BC ####[facility] [address] [place] [phone]. Cortez Younger MCH (RBC) [Entitic mass] 31.4 pg Normal 25.9-34.0 [facility] Comment on above: Performed By: #### C BC ####[facility] [address] [place] [address]Dr. Cortez Younger MCHC (RBC) [Mass/Vol] 35.9 g/dL Critically high 29.9-35.2 [facility] Comment on above: Performed By: #### C BC ####[facility] [address] [place], [place] [address]DrFish Younger MCV (RBC) [Entitic vol] 87.4 fL Normal 80.0-94.0 [facility] Comment on above: Performed By: #### C BC ####[facility] [address] [place], [place] [address]DrFish Younger MONO # 0.4 103/ul Normal 0.3-0.8 [facility] Comment on above: Performed By: #### C BC ####[facility] [address] [place] [address]DrFish Younger Monocytes/100 WBC (Bld) 3.6 % Normal 1.7-12.0 [facility] Comment on above: Performed By: #### C BC ####[facility] [address] [place], [place] [address]DrFish Younger NEUT # 7.9 103/ul Critically high 1.4-6.5 [facility] Comment on above: Performed By: #### C BC ####[facility] [address] [place] [address]DrFish Younger Neutrophils/100 WBC (Bld) 81.3 % Critically high 43.0-75.0 [facility] Comment on above: Performed By: #### C BC ####[facility] [address] [place] [address]Dr. Cortez Younger Platelet mean volume (Bld) [Entitic vol] 8.8 fL Critically low 9.5-13.5 [facility] Comment on above: Performed By: #### C BC ####[facility] [address] [place] [address]Dr. Cortez Younger PLT 371 103/ul Normal 150-450 [facility] Comment on above: Performed By: #### C BC ####[facility] [address] [place] [address]Dr. Cortez Younger RBC 4.91 106/ul Normal 4.70-6.10 [facility] Comment on above: Performed By: #### C BC ####[facility] [address] [place], [place] [address]Dr. Cortez Younger WBC 9.8 103/ul Normal 4.0-11.0 [facility] Comment on above: Performed By: #### C BC ####[facility] [address] [place], [place] [address]DrFish Younger CRPon 10-07-2022 CRP [Mass/Vol] mg/L Normal <=1.0 [facility] Comment on above: Performed By: #### L IPA, TSH, CRP, CMP ####[facility] [address] [place], [place] [address]DrFish Younegr ER URINE PROFILEon 3 Bilirubin Ql (U) Negative Normal NEGATIVE [facility] Comment on above: Performed By: #### E RUR #### [facility] [address] [place] [address] Dr. Cortez oYunger Clarity (U) CLEAR Normal CLEAR [facility] Comment on above: Performed By: #### E RUR #### [facility] [address] [place] [address] Dr. Cortez Younger Color (U) LT. YELLOW Normal YELLOW [facility] Comment on above: Performed By: #### E RUR #### [facility] [address] [address] [address] Cortez PRESTON A micrscopic examina tion will be performed if indicated. Normal [facility] Comment on above: Performed By: #### E RUR #### [facility] [address] [place] [address] Dr. Cortez Younger Glucose Ql (U) Negative Normal NEGATIVE [facility] Comment on above: Performed By: #### E RUR #### [facility] [address] [place] [address] Dr. Cortez Younger Hemoglobin Ql (U) Negative Normal NEGATIVE [facility] Comment on above: Performed By: #### E RUR #### [facility] [address] [place] [address] Dr. Cortez Younger Ketones Ql (U) Negative Normal NEGATIVE [facility] Comment on above: Performed By: #### E RUR #### [facility] [address] [place] [address] Dr. Cortez Younger LEUKOCYTES Negative Normal NEGATIVE [facility] Comment on above: Performed By: #### E RUR #### [facility] [address] [place] [address] Dr. Cortez Younger Nitrite Ql (U) Negative Normal NEGATIVE [facility] Comment on above: Performed By: #### E RUR #### [facility] [address] [place] [address] Dr. Cortez Younger pH (U) 7.5 [pH] Normal 5-9 [facility] Comment on above: Performed By: #### E RUR #### [facility] [address] [place] [address] Dr. Cortez Younger SPEC GRAVITY <=1.005 Abnormal 1.005-<=1.025 [facility] Comment on above: Performed By: #### E RUR #### [facility] [address] [place] [address] Dr. Cortez Younger UA PROTEIN Negative Normal NEGATIVE/ TRACE [facility] Comment on above: Performed By: #### E RUR #### [facility] [address] [address] [address] Cortez Younger UR MICRO IND NOT INDICATED Normal [facility] Comment on above: Performed By: #### E RUR #### [facility] [address] [address] [address] Cortez Younger Urobilinogen Qn (U) 0.2 {Fidelia'U}/dL Normal 0.2 - 1.0 [facility] Comment on above: Performed By: #### E RUR #### [facility] [address] [address] [address] Cortez Younger LACTATE/LACTIC ACIDon 2022 Lactate [Moles/Vol] 1.0 mmol/L Normal 0.4-2.0 [facility] Comment on above: Performed By: #### E RUR #### [facility] [address] [place] [address] Dr. Cortez Younger LIPASEon 10-07-2022 Lipase [Catalytic activity/Vol] 84.0 U/L Normal 73.0-393.0 [facility] Comment on above: Performed By: #### L IPA, TSH, CRP, CMP ####[facility] [address] [place] [address]DrFish Younger PROF 14(COMP METB)on 023 Albumin [Mass/Vol] 3.9 g/dL Normal 3.4-5.0 [facility] Comment on above: Performed By: #### L IPA, TSH, CRP, CMP ####[facility] [address] [place] [address]DrFish Younger Albumin/Globulin [Mass ratio] 1.7 {ratio} Normal [facility] Comment on above: Performed By: #### L IPA, TSH, CRP, CMP ####[facility] [address] [place] [address]DrFish Younger ALP [Catalytic activity/Vol] 78 U/L Normal 46-116 [facility] Comment on above: Performed By: #### L IPA, TSH, CRP, CMP ####[facility] [address] [place] [address]Dr. Cortez Younger ALT [Catalytic activity/Vol] 28 U/L Normal 16-63 [facility] Comment on above: Performed By: #### L IPA, TSH, CRP, CMP ####[facility] [address] [place] [address]Dr. Cortez Younger Anion gap [Moles/Vol] 12.1 mmol/L Normal [facility] Comment on above: Performed By: #### L IPA, TSH, CRP, CMP ####[facility] [address] [place] [address]Dr. Cortez Younger AST [Catalytic activity/Vol] 15 U/L Normal 15-37 [facility] Comment on above: Performed By: #### L IPA, TSH, CRP, CMP ####[facility] [address] [place] [address]Dr. Cortez Younger Bilirubin [Mass/Vol] 0.5 mg/dL Normal 0.2-1.0 [facility] Comment on above: Performed By: #### L IPA, TSH, CRP, CMP ####[facility] [address] [place], [place] [address]Dr. Cortez Younger Calcium [Mass/Vol] 8.6 mg/dL Normal 8.5-10.1 [facility] Comment on above: Performed By: #### L IPA, TSH, CRP, CMP ####[facility] [address] [place] [address]Dr. Cortez Younger Chloride [Moles/Vol] 100 mmol/L Normal 98-107 [facility] Comment on above: Performed By: #### L IPA, TSH, CRP, CMP ####[facility] [address] [place] [address]Dr. Cortez Younger CO2 [Moles/Vol] 28.8 mmol/L Normal 21.0-32.0 [facility] Comment on above: Performed By: #### L IPA, TSH, CRP, CMP ####[facility] [address] [place] [address]Dr. Cortez Younger Creatinine [Mass/Vol] 0.70 mg/dL Normal 0.70-1.30 [facility] Comment on above: Performed By: #### L IPA, TSH, CRP, CMP ####[facility] [address] [address]Dr. Cortez Younger EGFR-AF ISRAELI >60 Normal >=60 [facility] Comment on above: Performed By: #### L IPA, TSH, CRP, CMP ####[facility] [address] [place] [address]Dr. Cortez Younger EGFR-NON AF ISRAELI >60 Normal >=60 [facility] Comment on above: Performed By: #### L IPA, TSH, CRP, CMP ####[facility] [address] [place] [address]Dr. Cortez Younger Globulin (S) [Mass/Vol] 2.3 g/dL Normal [facility] Comment on above: Performed By: #### L IPA, TSH, CRP, CMP ####[facility] [address] [place], [place] [address]Dr. Cortez Younger Glucose [Mass/Vol] 111 mg/dL Critically high 74-106 [facility] Comment on above: Performed By: #### L IPA, TSH, CRP, CMP ####[facility] [address] [place] [address]Dr. Cortez Younger Potassium [Moles/Vol] 3.9 mmol/L Normal 3.5-5.1 [facility] Comment on above: Performed By: #### L IPA, TSH, CRP, CMP ####[facility] [address] [place] [address]Dr. Cortez Younger Protein [Mass/Vol] 6.2 g/dL Critically low 6.4-8.2 [facility] Comment on above: Performed By: #### L IPA, TSH, CRP, CMP ####[facility] [address] [place] [address]Dr. Cortez Younger Sodium [Moles/Vol] 137 mmol/L Normal 136-145 [facility] Comment on above: Performed By: #### L IPA, TSH, CRP, CMP ####[facility] [address] [place], [place] [address]Fw. Cortez Younger Urea nitrogen [Mass/Vol] 6.0 mg/dL Critically low 7.0-18.0 [facility] Comment on above: Performed By: #### L IPA, TSH, CRP, CMP ####[facility] [address] [place], [place] [address]Dv. Cortez Younger Urea nitrogen/Creatinin e [Mass ratio] 8.6 mg/mg Normal [facility] Comment on above: Performed By: #### L IPA, TSH, CRP, CMP ####[facility] [address] [place], [place] [address]Vo. Cortez Younger SED RATE [facility] 2022 SED RATE <1 Normal <=20 [facility] Comment on above: Performed By: #### C BC #### [facility] [address] [place], [place] [address] Dr. Cortez [facility]ounger [facility] TSH 1.031 uIU/mL Normal 0.358-3.740 [facility] Comment on above: Performed By: #### L IPA, TSH, CRP, CMP ####[facility] [address] [place] [id number]. Cortez Yuonger [facility]13 SARS-CoV-2 (COVID-19) RNA AXEL+probe Ql (Unsp spec) Not detected Normal NOT DETECTED [facility] Comment on above: Result Comment: [...] for this test is supported by the Storeperson of Health and Human Service's declaration that [...] used). Performed By: #### C BC #### [facility] [address] [place] [address] Dr. Cortez Younger INFLUENZA A AND B [facility] 05-28 INFLUANE SEE BELOW Normal [facility] Comment on above: Result Comment: Nega tive for Flu A protein angiten. Infection due to Flu A cannot be ruled out. Flu A angiten in the sample may be below the detection limit of the test. Performed By: #### E RUR #### [facility] [address] [place] [address] Dr. Cortez Younger INFLUBNEGH SEE BELOW Normal [facility] Comment on above: Result Comment: Nega tive for Flu B protein antigen. Infection due to Flu B cannot be ruled out. Flu B antigen in the sample may be below the detection limit of the test. Performed By: #### E RUR #### [facility] [address] [place] [address] Dr. Cortez Younger INFLUENZA A AG Negative Normal NEGATIVE SEE COMMENT [facility] Comment on above: Performed By: #### E RUR #### [facility] [address] [place] [address] Dr. Cortez Younger INFLUENZA B AG Negative Normal NEGATIVE SEE COMMENT [facility] Comment on above: Performed By: #### E RUR #### [facility] [address] [place] [address] Dr. Cortez Younger INTERNAL CONTROLS Within Normal Limits Normal Wi thin Normal Limits [facility] Comment on above: Performed By: #### E RUR #### [facility] [address] [place] [address] Dr. Cortez Younger XR CHEST 1 Von [...] KAIA SHEIKH Date: 2022-05-28 13:36 Normal [facility] PROF 14(COMP METB)on 022 Albumin [Mass/Vol] 3.9 g/dL Normal 3.4-5.0 [facility] Comment on above: Performed By: #### C MP #### [facility] [address] [address] [address] Cortez Younger Albumin/Globulin [Mass ratio] 1.4 {ratio} Normal [facility] Comment on above: Performed By: #### C MP #### [facility] [address] [place] [address] Dr. Cortez Younger ALP [Catalytic activity/Vol] 81 U/L Normal 46-116 [facility] Comment on above: Performed By: #### C MP #### [facility] [address] [address] [address] Cortez Younger ALT [Catalytic activity/Vol] 19 U/L Normal 16-63 [facility] Comment on above: Performed By: #### C MP #### [facility] [address] [address] [address] Cortez Younger Anion gap [Moles/Vol] 12.3 mmol/L Normal [facility] Comment on above: Performed By: #### C MP #### [facility] [address] [place] [address] Dr. Cortez Younger AST [Catalytic activity/Vol] 15 U/L Normal 15-37 [facility] Comment on above: Performed By: #### C MP #### [facility] [address] [address] [address] Cortez Younger Bilirubin [Mass/Vol] 0.3 mg/dL Normal 0.2-1.0 [facility] Comment on above: Performed By: #### C MP #### [facility] [address] [place] [address] Dr. Cortez Younger Calcium [Mass/Vol] 8.6 mg/dL Normal 8.5-10.1 [facility] Comment on above: Performed By: #### C MP #### [facility] [address] [address] [address] Cortez Younger Chloride [Moles/Vol] 101 mmol/L Normal 98-107 [facility] Comment on above: Performed By: #### C MP #### [facility] [address] [address] [address] Cortez Younger CO2 [Moles/Vol] 30.6 mmol/L Normal 21.0-32.0 [facility] Comment on above: Performed By: #### C MP #### [facility] [address] [address] [address] Cortez Younger Creatinine [Mass/Vol] 0.75 mg/dL Normal 0.70-1.30 [facility] Comment on above: Performed By: #### C MP #### [facility] [address] [place] [address] Dr. Cortez Younger EGFR-AF ISRAELI >60 Normal >=60 [facility] Comment on above: Performed By: #### C MP #### [facility] [address] [address] [address] Cortez Younger EGFR-NON AF ISRAELI >60 Normal >=60 [facility] Comment on above: Performed By: #### C MP #### [facility] [address] [address] [address] Cortez Younger Globulin (S) [Mass/Vol] 2.8 g/dL Normal [facility] Comment on above: Performed By: #### C MP #### [facility] [address] [address] [address] Cortez Younger Glucose [Mass/Vol] 98 mg/dL Normal 74-106 [facility] Comment on above: Performed By: #### C MP #### [facility] [address] [place] [address] Dr. Cortez Younger Potassium [Moles/Vol] 3.9 mmol/L Normal 3.5-5.1 [facility] Comment on above: Performed By: #### C MP #### [facility] [address] [address] [address] Cortez Younger Protein [Mass/Vol] 6.7 g/dL Normal 6.4-8.2 [facility] Comment on above: Performed By: #### C MP #### [facility] [address] [place] [address] Dr. Cortez Younger Sodium [Moles/Vol] 140 mmol/L Normal 136-145 [facility] Comment on above: Performed By: #### C MP #### [facility] [address] [place] [address] Dr. Cortez Younger Urea nitrogen [Mass/Vol] 5.0 mg/dL Critically low 7.0-18.0 [facility] Comment on above: Performed By: #### C MP #### [facility] [address] [place] [address] Dr. Cortez Younger Urea nitrogen/Creatinin e [Mass ratio] 6.7 mg/mg Normal [facility] Comment on above: Performed By: #### C MP #### [facility] [address] [place] [address] Dr. Cortez Younger CBC AUTO DIFFon 01-18-2022 BASO # 0.0 103/ul Normal 0.0-0.1 [facility] Comment on above: Performed By: #### C BC #### [facility] [address] [place] [address] Dr. Cortez Younger Basophils/100 WBC (Bld) 0.1 % Critically low 0.2-2.0 [facility] Comment on above: Performed By: #### C BC #### [facility] [address] [place] [address] Dr. Cortez Younger EO # 0.0 103/ul Normal 0.0-0.7 [facility] Comment on above: Performed By: #### C BC #### [facility] [address] [place] [address] Dr. Cortez Younger Eosinophils/100 WBC (Bld) 0.0 % Critically low 0.9-7.0 [facility] Comment on above: Performed By: #### C BC #### [facility] [address] [place] [address] Dr. Cortez Younger Erythrocyte distribution width (RBC) [Ratio] 12.8 % Normal 11.0-15.0 [facility] Comment on above: Performed By: #### C BC #### [facility] [address] [place] [address] Dr. Cortez Younger Hematocrit (Bld) [Volume fraction] 42.7 % Normal 42.0-54.0 [facility] Comment on above: Performed By: #### C BC #### [facility] [address] [place] [address] Dr. Cortez Younger Hemoglobin (Bld) [Mass/Vol] 15.3 g/dL Normal 14.0-18.0 [facility] Comment on above: Performed By: #### C BC #### [facility] [address] [place] [address] Dr. Cortez Younger IG # 0.10 10e3/ul Critically high 0.00-0.03 [facility] Comment on above: Performed By: #### C BC #### [facility] [address] [place] [address] Dr. Cortez Younger IG % 0.7 % Critically high 0.0-0.5 [facility] Comment on above: Performed By: #### C BC #### [facility] [address] [place] [address] Dr. Cortez Younger LYMPH # 1.9 103/ul Normal 1.2-3.8 [facility] Comment on above: Performed By: #### C BC #### [facility] [address] [place] [address] Dr. Cortez Younger Lymphocytes/100 WBC (Bld) 13.5 % Critically low 20.5-60.0 [facility] Comment on above: Performed By: #### C BC #### [facility] [address] [place] [address] Dr. Cortez Younger MANUAL DIFF REQ NO Normal [facility] Comment on above: Performed By: #### C BC #### [facility] [address] [address] [address] Cortez Younger MCH (RBC) [Entitic mass] 31.4 pg Normal 25.9-34.0 [facility] Comment on above: Performed By: #### C BC #### [facility] [address] [place] [address] Dr. Cortez Younger MCHC (RBC) [Mass/Vol] 35.8 g/dL Critically high 29.9-35.2 [facility] Comment on above: Performed By: #### C BC #### [facility] [address] [place] [address] Dr. Cortez Younger MCV (RBC) [Entitic vol] 87.5 fL Normal 80.0-94.0 [facility] Comment on above: Performed By: #### C BC #### [facility] [address] [place] [address] Dr. Cortez Younger MONO # 0.8 103/ul Normal 0.3-0.8 [facility] Comment on above: Performed By: #### C BC #### [facility] [address] [place] [address] Dr. Cortez Younger Monocytes/100 WBC (Bld) 5.6 % Normal 1.7-12.0 [facility] Comment on above: Performed By: #### C BC #### [facility] [address] [place] [address] Dr. Cortez Younger NEUT # 11.4 103/ul Critically high 1.4-6.5 [facility] Comment on above: Performed By: #### C BC #### [facility] [address] [place] [address] Dr. Cortez Younger Neutrophils/100 WBC (Bld) 80.1 % Critically high 43.0-75.0 [facility] Comment on above: Performed By: #### C BC #### [facility] [address] [place] [address] Dr. Cortez Younger Platelet mean volume (Bld) [Entitic vol] 8.4 fL Critically low 9.5-13.5 [facility] Comment on above: Performed By: #### C BC #### [facility] [address] [place] [address] Dr. Cortez Younger PLT 352 103/ul Normal 150-450 [facility] Comment on above: Performed By: #### C BC #### [facility] [address] [place] [address] Dr. Cortez Younger RBC 4.88 106/ul Normal 4.70-6.10 [facility] Comment on above: Performed By: #### C BC #### [facility] [address] [place] [address] Dr. Cortez Younger WBC 14.2 103/ul Critically high 4.0-11.0 [facility] Comment on above: Performed By: #### C BC #### [facility] [address] [place] [address] Dr. Cortez Younger PROF 14(COMP METB)on 022 Albumin [Mass/Vol] 4.1 g/dL Normal 3.4-5.0 [facility] Comment on above: Performed By: #### C MP #### [facility] [address] [place] [address] Dr. Cortez Younger Albumin/Globulin [Mass ratio] 1.5 {ratio} Normal [facility] Comment on above: Performed By: #### C MP #### [facility] [address] [place] [address] Dr. Cortez Younger ALP [Catalytic activity/Vol] 77 U/L Normal 46-116 [facility] Comment on above: Performed By: #### C MP #### [facility] [address] [place] [address] Dr. Cortez Younger ALT [Catalytic activity/Vol] 19 U/L Normal 16-63 [facility] Comment on above: Performed By: #### C MP #### [facility] [address] [place] [address] Dr. Cortez Younger Anion gap [Moles/Vol] 10.6 mmol/L Normal [facility] Comment on above: Performed By: #### C MP #### [facility] [address] [place] [address] Dr. Cortez Younger AST [Catalytic activity/Vol] 8 U/L Critically low 15-37 [facility] Comment on above: Performed By: #### C MP #### [facility] [address] [address] [address] Cortez Younger Bilirubin [Mass/Vol] 0.3 mg/dL Normal 0.2-1.0 [facility] Comment on above: Performed By: #### C MP #### [facility] [address] [address] [address] Cortez Younger Calcium [Mass/Vol] 8.9 mg/dL Normal 8.5-10.1 [facility] Comment on above: Performed By: #### C MP #### [facility] [address] [place] [address] Dr. Cortez Younger Chloride [Moles/Vol] 91 mmol/L Critically low 98-107 [facility] Comment on above: Performed By: #### C MP #### [facility] [address] [address] [address] Cortez Younger CO2 [Moles/Vol] 30.1 mmol/L Normal 21.0-32.0 [facility] Comment on above: Performed By: #### C MP #### [facility] [address] [place] [address] Dr. Cortez Younger Creatinine [Mass/Vol] 0.88 mg/dL Normal 0.70-1.30 [facility] Comment on above: Performed By: #### C MP #### [facility] [address] [address] [address] Cortez Younger EGFR-AF ISRAELI >60 Normal >=60 [facility] Comment on above: Performed By: #### C MP #### [facility] [address] [address] [address] Cortez Younger EGFR-NON AF ISRAELI >60 Normal >=60 [facility] Comment on above: Performed By: #### C MP #### [facility] [address] [place] [address] Dr. Cortez Younger Globulin (S) [Mass/Vol] 2.8 g/dL Normal [facility] Comment on above: Performed By: #### C MP #### [facility] [address] [address] [address] Cortez Younger Glucose [Mass/Vol] 112 mg/dL Critically high 74-106 T [facility] Comment on above: Performed By: #### C MP #### [facility] [address] [address] [address] Cortez Younger Potassium [Moles/Vol] 3.7 mmol/L Normal 3.5-5.1 [facility] Comment on above: Performed By: #### C MP #### [facility] [address] [address] [address] Cortez Younger Protein [Mass/Vol] 6.9 g/dL Normal 6.4-8.2 [facility] Comment on above: Performed By: #### C MP #### [facility] [address] [address] [address] Cortez Younger Sodium [Moles/Vol] 128 mmol/L Critically low 136-145 [facility] Comment on above: Performed By: #### C MP #### [facility] [address] [address] [address] Cortez Younger Urea nitrogen [Mass/Vol] 9.0 mg/dL Normal 7.0-18.0 [facility] Comment on above: Performed By: #### C MP #### [facility] [address] [address] [address] Cortez Younger Urea nitrogen/Creatinin e [Mass ratio] 10.2 mg/mg Normal [facility] Comment on above: Performed By: #### C MP #### [facility] [address] [address] [address] Cortez Younger SED RATE WESTERGRENon 2021 SED RATE <1 Normal <=20 [facility] Comment on above: Performed By: #### S EDR ####[facility] [address] [place], [place] [address]ZiDr. Cortez Younger UA RANDOMon 01-18-2022 Bilirubin Ql (U) Negative Normal NEGATIVE [facility] Comment on above: Performed By: #### E RUR #### [facility] [address] [place] [address] Dr. Cortez Younger Clarity (U) CLEAR Normal CLEAR [facility] Comment on above: Performed By: #### E RUR #### [facility] [address] [place] [address] Dr. Cortez Younger Color (U) LT. YELLOW Normal YELLOW [facility] Comment on above: Performed By: #### E RUR #### [facility] [address] [place] [address] Dr. Cortez Younger Glucose Ql (U) Negative Normal NEGATIVE [facility] Comment on above: Performed By: #### E RUR #### [facility] [address] [place] [address] Dr. Cortez Younger Hemoglobin Ql (U) TRACE-LYSED Abnormal NEGATIVE [facility] Comment on above: Performed By: #### E RUR #### [facility] [address] [place] [address] Dr. Cortez Younger Ketones Ql (U) Negative Normal NEGATIVE [facility] Comment on above: Performed By: #### E RUR #### [facility] [address] [place] [address] Dr. Cortez Younger LEUKOCYTES TRACE Abnormal NEGATIVE [facility] Comment on above: Performed By: #### E RUR #### [facility] [address] [place] [address] Dr. Cortez Younger Nitrite Ql (U) Negative Normal NEGATIVE [facility] Comment on above: Performed By: #### E RUR #### [facility] [address] [place] [address] Dr. Cortez Younger pH (U) 6.5 [pH] Normal 5-9 [facility] Comment on above: Performed By: #### E RUR #### [facility] [address] [place] [address] Dr. Cortez Younger SPEC GRAVITY <=1.005 Abnormal 1.005-<=1.025 [facility] Comment on above: Performed By: #### E RUR #### [facility] [address] [address] [address] Cortez Younger UA PROTEIN Negative Normal NEGATIVE/ TRACE [facility] Comment on above: Performed By: #### E RUR #### [facility] [address] [address] [address] Cortez Younger Urobilinogen Qn (U) 0.2 {Fidelia'U}/dL Normal 0.2 - 1.0 [facility] Comment on above: Performed By: #### E RUR #### [facility] [address] [address] [address] Cortez Younger MRI CSPINE WO W [...] VERN LU Date: 2022-01-17 16:24 Normal [facility] MRI TSPINE WO W CONon [...] by: VERN LU Date: 2022-01-17 16:29 Normal [facility] MRI BRAIN WO W CONon 022 [...] by: VERN LU Date: 2022-01-03 08:03 Normal [facility] Patient Educationon 12-25-19 Patient Education Oncology [...] including vitamins, herbs, eye drops, creams, and eier-fro-vecptym medicines. This also includes: ? Medicines to [...] 08/01/2005 Document Revised: 06/11/2018 Document Reviewed: 04/05/2018 [employer] Patient Education ? 2019 [employer]. Normal [facility] Urology Office/Clinic Noteon 12-24-2021 Urology Office/Clinic [...] Urnls Dip Stick Auto w/o Microscopy POC 07794 3. Elevated PSA (R97.20: Elevated prostate specific antigen [PSA]) Most recent PSA done 08/13/21 5.24 Ordered: Urnls Dip Stick Auto w/o Microscopy POC 58398 Other obstructive and reflux uropathy (N13.8: Other obstructive and reflux uropathy) Follow-up With When Contact Information Star Manley MD, Gustavo Orlando, URO In 6 months [facility] [address], [place] [address]- Additional Instructions: w/ PVR Patient Education Prostate-Specific [...] tab(s), Or (more content not included)... Normal [facility] Comment on above: Result Comment: Elec tronically Signed By: Star Manley MD, Gustavo Orlando\.br\Date and Time Signed: 12/24/21 10:52 EDT\.br\Electronically Co-Signed By: Lynda Ortega\.br\Date and Time Co-Signed: 12/24/21 10:47 EDT Lab Reportson 12-16-2021 Lab Reports [id number]: 127 Normal [facility] Lab Reports [id number]: 127 Normal [facility] CULTURE URINEon 12-12-2021 CULTURE URINE Culture Observations : No growth Normal [facility] Comment on above: Performed By: #### U RCX ####[facility] [address] [address]Dr. Cortez Younger UA RANDOMon 12-12-2021 Bilirubin Ql (U) Negative Normal NEGATIVE [facility] Comment on above: Performed By: #### U A #### [facility] [address] [address] [address] Cortez Younger Clarity (U) CLEAR Normal CLEAR [facility] Comment on above: Performed By: #### U A #### [facility] [address] [place] [address] Dr. Cortez Younger Color (U) LT. YELLOW Normal YELLOW [facility] Comment on above: Performed By: #### U A #### [facility] [address] [place] [address] Dr. Cortez Younger Glucose Ql (U) Negative Normal NEGATIVE [facility] Comment on above: Performed By: #### U A #### [facility] [address] [place] [address] Dr. Cortez Younger Hemoglobin Ql (U) LARGE Abnormal NEGATIVE [facility] Comment on above: Performed By: #### U A #### [facility] [address] [place] [address] Dr. Cortez Younger Ketones Ql (U) Negative Normal NEGATIVE [facility] Comment on above: Performed By: #### U A #### [facility] [address] [place] [address] Dr. Cortez Younger LEUKOCYTES Negative Normal NEGATIVE [facility] Comment on above: Performed By: #### U A #### [facility] [address] [place] [address] Dr. Cortez Younger Nitrite Ql (U) Negative Normal NEGATIVE [facility] Comment on above: Performed By: #### U A #### [facility] [address] [place] [address] Dr. Cortez Younger pH (U) 7.0 [pH] Normal 5-9 [facility] Comment on above: Performed By: #### U A #### [facility] [address] [place] [address] Dr. Cortez Younger SPEC GRAVITY 1.010 Normal 1.005-<=1.025 [facility] Comment on above: Performed By: #### U A #### [facility] [address] [address] [address] Cortez Younger UA PROTEIN Negative Normal NEGATIVE/ TRACE [facility] Comment on above: Performed By: #### U A #### [facility] [address] [id number] [address] Cortez Younger Urobilinogen Qn (U) 0.2 {Fidelia'U}/dL Normal 0.2 - 1.0 [facility] Comment on above: Performed By: #### U A #### [facility] [address] [place] [address] Dr. Cortez Younger Coding Summary.on 12-06-2021 Coding Summary. CD:[id number] Gh0b Ww+PGhlYWQ+SL0QHYLmF64wy JEyuD1MG6rDPX4PZMBRIJPVF E6EMW1cyIT8VCmdS7CjavYs RfjusKGvBJ76OKt5CIW2nXsf TUjugD8nyEPfX2g3ZoJhYF83 iL91QYylKQYhNlR2NwMufeey bWFy X5myHeLxfORgJlh+PHRhYmxl IHdpZHRoPScxMDAlJyBzdHls SL9rHj9qDEQaYUHkqSefzJKr OiBj r9dxJIIuJLslSC5jkJnwH0Ir pBG7VWRlx3n6Vo23bMV+PHRk RVI2eVpuKLkep965FrHqw3yf IDM3 qUZjICkzTAL7E67tf6V3EGEs MJNfAVM4mKN7eB6ehJkdyrfx R9PwwUYlQxJ4XPJ5qFKszD9x bGln rivfcV4eQbs+X18LXY7UKGVP QH1BMrb5N6CpYvouqQZ+PC90 HQOfFT13fTPxnYHpz5bzuBx2 JzEw HQDsYGH3zKlyJGreh6EjTBJd T75pfLMyy7O5IESjdCdotLFd DsQxmMA9cF4tADtwujzdq2lk dzsn Lmelv3jgtn12dC34Z06bFVjt PPIbZAX2ASUrLJQscSowsa0k lJ6hKv2+ZOjlx8yua3luzAw3 IjIw NGFiydWugGpwWPT0g9IdIv59 S4PtfEjhp4EcVdt9ww47mLHi b1J8tBF1PHgoNMJghW9nCSjj ZnQ6 XCJqGyEbgR57dMRwORutNx6w zJidtZauCQ6rBXAfnkfwCJWu fK7nNLAztCUvtNfqUH0bNILk bjtm z701TuPbIFR5RXBzcVJoY8Ec qD2oHxHdRRZkLFSiY4OdzRAk NLdrY967XOpnJvI6TGWhzgZf Y2Fs UXVduPgeJbO8y3K9Ub1Xt5Mq ytsoYJP1UXblPGK8CmK0KsWm HvL9M9VrElz5MJLzxWexPK3m J3Bh KTWdkvgpjwturGG0SURiRBZs dL40sIDlQQqmMm9nz8C8i475 FPYvFRQavB15Hs8fqKpzXCSe dCBU nR0apeckc0ysfevwSoTtZMOc MKg8GHo3FPInaUqgLfKqGYD3 EkQ7ZXD7fRThrE0thHcntauj dG9w Oyc+U93ahZ9mINV8OUE9lhfr VYWegkAdBE45UV13H4PiTfzf dGFibGU+FHJuheNyxJonVV6w YmFj y0sdo5TcAOjlV9LyIATcATmq Bkb4XBCvMEF2tER7cO6yOUVd RPpus5V3yPX3J5FvusTcbq0y b2xs LYKiPHsaM21ufKPcz1T4DTTy nPF3OFBlgTsqViRxjO11Djf+ SBZooJtyq0OrPxion7cyv1xa dGg9 CaNlVBFvvyAfxHdzYBY4n0Kr Zs23O79kJSsvZJGyZCRzLVZo RVKuaHzjiv6ldC7zWv3+PGNv bCB3 pYV2gM2pUJElGnJ7VCapC734 QnIxoYXoElqjp0gkq6wztUp5 ThLnRWUbuyHbpZicRCQ4r3Dy Lz48 A40sZUygLNAaTHVyMGBjPPKc wTnsef3lqR0hAk0+PO7us5su de13yN52rYN+GQRrRBS2nPel PSdw RJXctP7mTMfcGjI9YHGfElGe xL46oHShSBytPu5baVinzKfb IQ5tKQCtqxijy472LaHoo0jx IDEw wKYnOGzhWWM3R94lp3A8EGZp BZZgIDN2vII7rR8qvIldeyam bGVmdDsgdmVydGljYWwtYWxp Z246 IHRvcDsnPlBhdGllbnQgTmFt JQs5C9XkVvt9VCYifBisKL0s oCIeSMuqUg9wxJvvaUofUF8k NTBp iglhm047YuYst6yjRPJdkHIc LZjhZUG2X37oc5W3ZEPjOAGr UNH9iWY6cN8cxIrfgsjidKKi dDsg wvPvaOigYYhhGWupI073WKNh pMonGwIfuzRyKCTdrXQ7KT96 VR77kUDtk8I2bNA8S6GxXBEi bmct husazAW0DJYuDLUzhY31Ey5a xFipWb9yMVTgHCG1YQUtoJRe Q1WxpE5gMvDmBRKeSHVsO0Kt eHQt MSjjV706UJznQuZ9YHMvncYv N1ElKJLsfGycNtG1g2R9Dj1S Y2G4KC10KR32pLSqp2R4hQP8 J3Bh SNDyeozajmojhSK3HAPpJAWm mZ20Vm3meZlrMk2iADTyHIQ0 ZAYpbDYjV9XhpP5mDoLoIMYo MDAw A2AznWPbTFerE147FWpwDsD5 SRZmynHxV1UkLSUqfZxcUmN7 v4K8Xq5BXQz9NT81UQ78bBMj c3R5 cWC7D8IkWJNaxlmijasjeZT4 CYGiOWMteF70Ef5esUuaRf4c SVQbNIR2FIMyiEWkA4BslI8z OiAj FDYgBFEuQ0UwbLScVTruO111 GCexOqV3EYZagvYsP4SjEOZe tUlbLuR5f7Y0Pc4ACXRvEW02 IFR5 lBW2JU30IU69T4BcSqpsvMLq bGU+PHRhYmxlIHdpZHRoPScx BWGjCiAonVjnVA3jSr8aQBUq LWNv gWzrvKMiOmEeh4szZTZuXLyg SL4dkMhpK3MsqFR0ILXjg4j2 Ia31X11eT8RruKW+PGNvbCB3 aWR0 jW8aXrLhFxE3KMzrO396KsRd cZKsKwigd7fpv5imeNp4TaD9 IWKqykTsdSorTCH8f2EnJi42 Y29s IHdpZHRoPSIxNSUiIHZhbGln vd0jpQ2fFh6+DUHyxAE9nJW3 rG0sCfWnBnS4JXmvE778FyWn cCIv Mhnls8jqk7ubdQw3HpBzCBZq npXcdBfgTUP0b4AzDl70Q9Wy yIhhh4DiAxa5qt45yCTal2R7 bGU9 E2VkRYWuphcbuXIrbQhjAZ3w YGDudhtuTVSfvS4yPIJjA3g7 FjEzAbW3LBzyM8OsuiJ0EPTv cHQg QQexMBL2S12eu3H2DXCxTVVn SUR7bNH7lK4dsQfcxhbnbPKu cJsqagTewXjpUNcwXWdmD082 IHRv vZgdEGTnoE8lEFHazGNxzQan LI6eOTLfsfauBxYJBhJFH4iK VMirK8ITWH6wSCjpdTX+PHRk IHN0 yIhvFTlkQSAshE7kQITsE3w2 KwRuNuG2CNgzS7LeBHYchlul Md41hR2fEnDbErZ4FUxmO9Tg bnQ6 YKIhgSIqAQcoDTM6U88cl7F4 RLNpYZSsSLE1yVW1aX8aiDug bjogbGVmdDsgdmVydGljYWwt YWxp C821SIBftSanCiI1XvWeJjM9 Lmw7M1CsGaq2TFEzlXzpCX8g yXJaFEdwDb5gkWoswEjgTS7b NTBp vugdTFXjrX6jOHUovXVcjTbz UX2oSQIqnxwbk208BaHeVJK7 SOVdeTBuK2XmrU4qKcKsUGVx MDAw P1OuuDKiXKmoJ126ZQroMkR3 EPCqbiVtB0HsGIFsyIixPvM5 u0B5Od28RvYDAYXpwxgivWA+ PHRk KND0sFvsFAbeZONyvT6oGJNf B4e2IpEcIgU1NGrcP6JuYMBt pbijQc03uF1mAsDgCuI0TRbq O2Zv ekQ4QZVmeZOrRVhlSMZ6C39v x8M5DQWgVBDvYIH6pSM2kY9q bGlnbjogbGVmdDsgdmVydGlj YWwt RYomG562GKQnlSluNr6gaYD3 P1GjGvf8CEGcqAnuAZ4tsUCk EVzkZe9zfRuyvNlnDC8sTGOf bjtw HPKmhQ0tPFWupCNdeEusMZ0b RCLmpvlfa925AbDpWYF1PYLp fFXmV1LvhX9pCwHjUGHwSJWf O3Rl kFXpFHzmR731YZjjXtD2GCFt wfRkD0TgJVThjKsqZnJ3n6L5 Hu1TgLCkAQPuRE77NE43AN56 L3Ry PjwvdGFibGU+PHRhYmxlIHdp JJYkHOsrSEWdTpKumFlyMK6p Ip4jPELmVFPggSvnjEXbWxHg b2xs JVByDNujNS6fqQctA0YfbFT0 RGDnm9o9Tt82Y39aA8WrtKG+ HSRhxEQ5zMW1eH1wViSeQfE9 YWxp F087VdDbtZTnKpvkh4okb6cu tIj9MrXwBJOsjmKtpRuoCTP4 u0NqNw17U62yNIlkNLPzRVTu MCUi UPZzsNusaf8glO8bHi5+PGNv pEX0bTE5vO0bOwFlOoJ8KAem G455QqDzrOMsElzrZ91gH9Nu dXA+ ACOgOup9ZSTgcWnfPH3ioBOm DMpbIr2fWBE6FuLgYoLoWWji X2XcVZGfpbqkdopusVW5JBAj MDUw dO86Dk4liNcjUs8oBVVmPQK3 IJWibLNtH8CdoF7fRnStVFQb QNEmM3KjxYDaZXzyJ493CCoh ZnQ7 GMLraaJvM9VqRNLkjElaMoX8 c0G0Gb9NoXtgoYQfSS0oCmWd WYj2M0LkUfw0OQYltXjaRG5z cGFk HBkqMm8ahYhioZczEG9aKFPm qphpl405KyYbu0isMXBfqMQl AIukEEJ4G31oq2T2HREaFKYm MDA7 eDD8aC6lkEzdtmgcjTUmeLqh mjUqtLokGGpoJCmzU822UGBp bBaqEuJCNit7U4VaRgi4CAHf dHls AY2gaERhIDpyEc1ovYpxmGer FN9nWUOwjroex140LoRyl6od JOYsdAKaQDvnNKO4K04nz9F2 ICMw CAEvBLQ6fOP0xS9gaHfwbsma bGVmdDsgdmVydGljYWwtYWxp Y607UOXcgVeaCm6AYcy1Y5Av Pjx0 SDRpwLvbTJ2gaQUuFIikHs7o bStnlIxwJU2kEINhlglay206 AiDli6gjSTQaiRLvUFoxBIS5 Y29s b2W6RMWeABYoIDH0bFY9nX4w bGlnbjogbGVmdDsgdmVydGlj ORxwYAlcV149UOFblFxmTeYa eWVy OjwvdGQ+GR01qx32H7CeSzxj Vlm7DWJcYDN0yEA3mZ1mBYCq BXhhc9S5kDM9M7NtvfJydg4y b2xs YXBz (more content not included)... [facility] Consent for Procedure/Surger yon 12-05-2021 Consent for Procedure/Surgery [id number] :127 [facility] Consent for Treatmenton -2 Consent for Treatment [id number]#1.00CD: 127 [facility] IntraOperative Documentson 0 12-05-2021 IntraOperative Documents [id number] :127 [facility] Main OR Intraoperative Recor don 12-05-2021 Main OR Intraoperative Record IntraOp Document Type FTURO Summary Primary Physician: Star Manley MD, Gustavo Orlando Finalized Date/Time: 12/05/21 13:57:51 Pt. Name: HARISH MCKENNA D.O.B./Sex: 1970 Male Med Rec #: [id number] Physician: Star Manley MD, Gustavo Orlando Financial #: [id number] Pt. Type: O Room/Bed: / Admit/Disch: 12/05/21 11:48:14 - Institution: Case Times FTURO Entry 1 Patient Times In Room 12/05/21 13:23:00 Out Room 12/05/21 13:57:00 Procedure Times Start 12/05/21 13:40:00 Stop 12/05/21 13:53:00 Anesthesia Times Last Modified By: Veena Levin RN 12/05/21 13:57:47 Case Attendance FTURO Entry 1 Entry 2 Entry 3 Case Attendee Star Manley MD, Gustavo Sanders INSPECTOR OF WEIGHTS AND MEASURES, Veena Brower INSPECTOR OF WEIGHTS AND MEASURES, Ni Aguirre Role Performed Surgeon - Primary [...] Case Attendee Veena Levin RN Role Performed Licensed Weigher - Primary Time In 12/05/21 13:23:00 Time [...] Implant Implant Identification Description UROLIFT Lot Number [id number] 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 Normal [facility] Main OR Preoperative Recordo n 12-05-2021 Main OR Preoperative Record Holding Area Document Type FTURO Summary Primary Physician: Gustavo Graves Jr., MD Finalized Date/Time: 12/05/21 13:01:06 Pt. Name: LESLIESHARLAHARISH D.O.B./Sex: 1970 Male Med Rec #: [id number] Physician: Gustavo Graves Jr., MD Financial #: [id number] Pt. Type: O Room/Bed: / Admit/Disch: 12/05/21 [...] 12:28 Veena Levin RN 12/05/21 13:01 Normal [facility] Operative Reporton Operative Report Patient: HARISH [...] procedure (10 mg diazepam, 5/325 mg of Moran), Local Anesthesia (60cc 2% Xylocaine liquid inserted [...] well and was subsequently discharged home. Normal [facility] Comment on above: Result Comment: Elec tronically Signed By: Star Manley MD, Gustavo Orlando\.amanda\Date and Time Signed: 12/05/21 13:58 EDT CBC AUTO DIFFon 12-03-2021 BASO # 0.2 103/ul Critically high 0.0-0.1 [facility] Comment on above: Performed By: #### C BC ####[facility] [address] [address]DrFish Younger Basophils/100 WBC (Bld) 1.3 % Normal 0.2-2.0 [facility] Comment on above: Performed By: #### C BC ####[facility] [address] [id number]. Cortez Younger EO # 0.2 103/ul Normal 0.0-0.7 [facility] Comment on above: Performed By: #### C BC ####[facility] [address] [address]DrFish Younger Eosinophils/100 WBC (Bld) 1.8 % Normal 0.9-7.0 [facility] Comment on above: Performed By: #### C BC ####[facility] [address] [address]Dr. Cortez Younger Erythrocyte distribution width (RBC) [Ratio] 13.3 % Normal 11.0-15.0 [facility] Comment on above: Performed By: #### C BC ####[facility] [address] [place], [place] [address]Dr. Cortez Younger Hematocrit (Bld) [Volume fraction] 45.0 % Normal 42.0-54.0 [facility] Comment on above: Performed By: #### C BC ####[facility] [address] [place], [place] [address]Dr. Cortez Younger Hemoglobin (Bld) [Mass/Vol] 15.6 g/dL Normal 14.0-18.0 [facility] Comment on above: Performed By: #### C BC ####[facility] [address] [place], [place] [address]Dr. Cortez Younger IG # 0.05 10e3/ul Critically high 0.00-0.03 [facility] Comment on above: Performed By: #### C BC ####[facility] [address] [place], [place] [address]Dr. Cortez Younger IG % 0.4 % Normal 0.0-0.5 [facility] Comment on above: Performed By: #### C BC ####[facility] [address] [place], [place] [address]Dr. Cortez Younger LYMPH # 1.8 103/ul Normal 1.2-3.8 [facility] Comment on above: Performed By: #### C BC ####[facility] [address] [place], [place] [address]Dr. Cortez Younger Lymphocytes/100 WBC (Bld) 15.2 % Critically low 20.5-60.0 [facility] Comment on above: Performed By: #### C BC ####[facility] [id number] [place], [place] [address]Dr. Cortez Aren MANUAL DIFF REQ NO Normal [facility] Comment on above: Performed By: #### C BC ####[facility] [address] [place] [address]Dr. Cortez Younger MCH (RBC) [Entitic mass] 31.1 pg Normal 25.9-34.0 [facility] Comment on above: Performed By: #### C BC ####[facility] [address] [place], [place] [address]Dr. Cortez Younger MCHC (RBC) [Mass/Vol] 34.7 g/dL Normal 29.9-35.2 [facility] Comment on above: Performed By: #### C BC ####[facility] [address] [place], [place] [address]Dr. Cortez Aren MCV (RBC) [Entitic vol] 89.8 fL Normal 80.0-94.0 [facility] Comment on above: Performed By: #### C BC ####[facility] [id number] [place], [place] [address]Dr. Cortez Aren MONO # 0.6 103/ul Normal 0.3-0.8 [facility] Comment on above: Performed By: #### C BC ####[facility] [id number] [place], [place] [address]Dr. Eleanorvalerie Younger Monocytes/100 WBC (Bld) 5.3 % Normal 1.7-12.0 [facility] Comment on above: Performed By: #### C BC ####[facility] [id number] [place], [place] [address]Dr. Eleanorvalerie Aren NEUT # 8.9 103/ul Critically high 1.4-6.5 [facility] Comment on above: Performed By: #### C BC ####[facility] [address] [place], [place] [address]Dr. Cortez Younger Neutrophils/100 WBC (Bld) 76.0 % Critically high 43.0-75.0 [facility] Comment on above: Performed By: #### C BC ####[facility] [id number] [place], [place] [address]DrFish Younger Platelet mean volume (Bld) [Entitic vol] 8.9 fL Critically low 9.5-13.5 [facility] Comment on above: Performed By: #### C BC ####[facility] [address] [place] [address]DrFish Younger PLT 414 103/ul Normal 150-450 [facility] Comment on above: Performed By: #### C BC ####[facility] [address] [place] [address]DrFish Younger RBC 5.01 106/ul Normal 4.70-6.10 [facility] Comment on above: Performed By: #### C BC ####[facility] [address] [place] [address]DrFish Younger WBC 11.7 103/ul Critically high 4.0-11.0 [facility] Comment on above: Performed By: #### C BC ####[facility] [id number] [address]Dr. Cortez Younger PROF 14(COMP METB)on 022 Albumin [Mass/Vol] 3.8 g/dL Normal 3.4-5.0 [facility] Comment on above: Performed By: #### C BC #### [facility] [address] [place] [address] Dr. Cortez Younger Albumin/Globulin [Mass ratio] 1.3 {ratio} Normal [facility] Comment on above: Performed By: #### C BC #### [facility] [address] [address] [address] Cortez Younger ALP [Catalytic activity/Vol] 95 U/L Normal 46-116 [facility] Comment on above: Performed By: #### C BC #### [facility] [address] [address] [address] Cortez Younger ALT [Catalytic activity/Vol] 25 U/L Normal 16-63 [facility] Comment on above: Performed By: #### C BC #### [facility] [address] [address] [address] Cortez Younger Anion gap [Moles/Vol] 12.7 mmol/L Normal [facility] Comment on above: Performed By: #### C BC #### [facility] [address] [place] [address] Dr. Cortez Younger AST [Catalytic activity/Vol] 18 U/L Normal 15-37 [facility] Comment on above: Performed By: #### C BC #### [facility] [address] [place] [address] Dr. Cortez Younger Bilirubin [Mass/Vol] 0.3 mg/dL Normal 0.2-1.0 [facility] Comment on above: Performed By: #### C BC #### [facility] [address] [place] [address] Dr. Cortez Younger Calcium [Mass/Vol] mg/dL Normal 8.5-10.1 [facility] Comment on above: Performed By: #### C BC #### [facility] [address] [place] [address] Dr. Cortez Younger Chloride [Moles/Vol] 98 mmol/L Normal 98-107 [facility] Comment on above: Performed By: #### C BC #### [facility] [address] [place] [address] Dr. Cortez Younger CO2 [Moles/Vol] 28.9 mmol/L Normal 21.0-32.0 [facility] Comment on above: Performed By: #### C BC #### [facility] [address] [place] [address] Dr. Cortez Younger Creatinine [Mass/Vol] 0.84 mg/dL Normal 0.70-1.30 [facility] Comment on above: Performed By: #### C BC #### [facility] [address] [place] [address] Dr. Cortez Younger EGFR-AF ISRAELI >60 Normal >=60 [facility] Comment on above: Performed By: #### C BC #### [facility] [address] [place] [address] Dr. Cortez Younger EGFR-NON AF ISRAELI >60 Normal >=60 [facility] Comment on above: Performed By: #### C BC #### [facility] [address] [address] [address] Cortez Younger Globulin (S) [Mass/Vol] 3.0 g/dL Normal [facility] Comment on above: Performed By: #### C BC #### [facility] [address] [address] [address] Cortez Younger Glucose [Mass/Vol] 104 mg/dL Normal 74-106 [facility] Comment on above: Performed By: #### C BC #### [facility] [address] [address] [address] Cortez Younger Potassium [Moles/Vol] 3.6 mmol/L Normal 3.5-5.1 [facility] Comment on above: Performed By: #### C BC #### [facility] [address] [place] [address] Dr. Cortez Younger Protein [Mass/Vol] 6.8 g/dL Normal 6.4-8.2 [facility] Comment on above: Performed By: #### C BC #### [facility] [address] [place] [address] Dr. Cortez Younger Sodium [Moles/Vol] 136 mmol/L Normal 136-145 [facility] Comment on above: Performed By: #### C BC #### [facility] [address] [place] [address] Dr. Cortez Younger Urea nitrogen [Mass/Vol] 6.0 mg/dL Critically low 7.0-18.0 [facility] Comment on above: Performed By: #### C BC #### [facility] [address] [place] [address] Dr. Cortez Younger Urea nitrogen/Creatinin e [Mass ratio] 7.1 mg/mg Normal [facility] Comment on above: Performed By: #### C BC #### [facility] [address] [place] [address] Dr. Cortez Younger Consent for Procedure/Surger yon 10-15-2021 Consent for Procedure/Surgery [id number]: [address] [facility] Patient Educationon 10-15-19 Patient Education Urology [...] these instructions at home: Medicines ? Take jcnt-rfo-pmsjkiq and prescription medicines only as told by [...] the blood stops without treatment. ? Take rqsw-ryd-dgipnpn and prescription medicines only as told by your health care provider. ? Drink enough fluid to keep your urine clear or pale yellow. This information is not intended to replace advice given to you by your health care provider. Make sure you discuss any questions you have with your health care provider. Document Released: 06/29/2006 Document Revised: 11/23/2019 Document Reviewed: 08/01/2017 [employer] Patient Education ? 2019 [employer] [facility] Urology Office/Clinic Noteon 10-14-2021 Urology Office/Clinic [...] [facility] [address] [place] [address]- Additional Instructions: Patient Education Hematuria, Adult Jaret Finley personally scribed for Dr. Graves on 10/14/2021 13:40:09. . Documentation recorded by the Sharonda yao accurately reflects the services(s) I performed and decis (more content not included)... Normal [facility] Comment on above: Result Comment: Elec tronically Signed By: Gustavo Graves Jr., MD\.br\Date and Time Signed: 10/14/21 13:47 EDT\.br\Electronically Co-Signed By: Jaret Benz\.br\Date and Time Co-Signed: 10/14/21 13:40 EDT SURGICAL PATH REPORTon 01-25 SURGICAL PATH REPORT [facility] Pathology [address] [place] [id number] Name: HARISH MCKENNA : 1970 [facility] [id number] Number: Gender: Male Location: [facility] Admit 50 years Attending CRUZITO TOMLINSON JR Age: Provider: Ordering CRUZITO TOMLINSON JR Provider: Consulting: Surgical Pathology Report ACCESSION: COLLECTED DATE/TIME: RECEIVED DATE/TIME: PATHOLOGIST: [id number] 01/23/2021 12:05 EDT 01/24/2021 12:05 EDT ALVIN CADET MD Final Diagnosis Report for [facility], [place] ANTRUM, BIOPSY: - MILD CHRONIC GASTRITIS. [...] MP/ts 01/24/2021 Tissue pathology report for: [facility], [address] [place] [id number]; Print Date/ 01/25/2021 12:34 EDT Number: Time: [facility] [address] [place] [address] Name: HARISH MCKENNA : 1970 [facility] [id number] Number: Gender: Male Location: [facility] Admit 50 years Attending CRUZITO TOMLINSON JR Age: Provider: Ordering CRUZITO TOMLINSON JR Provider: Consulting: Surgical Pathology Report ACCESSION: COLLECTED DATE/TIME: RECEIVED DATE/TIME: PATHOLOGIST: [id number] 01/23/2021 12:05 EDT 01/24/2021 12:05 EDT ALVIN CADET MD Gross Description PATHOLOGY SERVICES PROVIDED BY [email or web address] (CLIA #[id number]) in cooperation with [facility] at [address] [place] [address] (CLIA #[id number]) Microscopic Diagnosis NOTE: One or more of the reagents used to perform assays on this specimen MAY have contained components considered to be analyte specific reagents ( ASRs). ASRs have not been cleared or approved by the U.S. Food and Drug Administration. The performance characteristics of these assays have been determined by the Department of Pathology at [facility]. This assay was performed subsequent to the H and E examination. Appropriate positive and negative controls were examined with appropriate reactivity. Codes CPT CODE: 66206 + [id number] Print Date/ 01/25/2021 12:34 EDT Number: Time: Normal [facility] Comment on above: Performed By: #### 9 [id number] #### [facility] [address] [place], [place] [id number] Accounting Instructor: Alvin Cadet MD Vital Signs Date Time Vital Sign Value Performing Clinician Facility 11-01-2024 16:27-0400 Body height 177.8 cm Bubba Ghotra MD Work Phone: [facility] 11-01-2024 16:27-0400 Body mass index (BMI) [Ratio] 20.66 kg/m2 Bubba Ghotra MD Work Phone: [facility] 11-01-2024 16:27-0400 Body weight 65.32 kg Bubba Ghotra MD Work Phone: [facility] 09-28-2024 14:08-0400 Body height 177.8 cm Reba Posada PA Work Phone: [facility] 09-28-2024 14:08-0400 Body mass index (BMI) [Ratio] 20.66 kg/m2 Reba Posada PA Work Phone: [facility] 09-28-2024 14:08-0400 Body weight 65.32 kg Reba Posada PA Work Phone: [facility] 09-28-2024 14:08-0400 Diastolic blood pressure 62 mm[Hg] Reba Posada PA Work Phone: [facility] 09-28-2024 14:08-0400 Respiratory rate 16 /min Reba Posada PA Work Phone: [facility] 09-28-2024 14:08-0400 Systolic blood pressure 102 mm[Hg] Reba Posada PA Work Phone: [facility] 08-30-2024 15:51-0500 Body height 177.8 cm Bubba Ghotra MD Work Phone: [facility] 08-30-2024 15:51-0500 Body mass index (BMI) [Ratio] 20.95 kg/m2 Bubba Ghotra MD Work Phone: [facility] 08-30-2024 15:51-0500 Body weight 66.22 kg Bubba Ghotra MD Work Phone: [facility] 06-07-2024 15:45-0500 Body height 177.8 cm Reba Posada PA Work Phone: [facility] 06-07-2024 15:45-0500 Body mass index (BMI) [Ratio] 18.94 kg/m2 Reba Posada PA Work Phone: [facility] 06-07-2024 15:45-0500 Body weight 59.88 kg Reba Posada PA Work Phone: [facility] 06-07-2024 15:45-0500 Diastolic blood pressure 72 mm[Hg] Reba Posada PA Work Phone: [facility] 06-07-2024 15:45-0500 Heart rate 71 /min Reba Posada PA Work Phone: [facility] 06-07-2024 15:45-0500 Respiratory rate 16 /min Reba Posada PA Work Phone: [facility] 06-07-2024 15:45-0500 SaO2% (BldA) [Mass fraction] 94 % Reba Posada PA Work Phone: [facility] 06-07-2024 15:45-0500 Systolic blood pressure 112 mm[Hg] Reba Posada PA Work Phone: [facility] 05-10-2024 13:14-0400 Body height 177.8 cm [facility] 05-10-2024 13:14-0400 Body mass index (BMI) [Ratio] 19.3 kg/m2 [facility] 05-10-2024 13:14-0400 Body temperature 97.2 [degF] [facility] 05-10-2024 13:14-0400 Body weight 61 kg [facility] 05-10-2024 13:14-0400 Diastolic blood pressure 72 mm[Hg] [facility] 05-10-2024 13:14-0400 Systolic blood pressure 112 mm[Hg] [facility] 04-11-2024 16:32-0400 Body height 177.8 cm Reba Posada PA Work Phone: [facility] 04-11-2024 16:32-0400 Body mass index (BMI) [Ratio] 18.65 kg/m2 Reba Posada PA Work Phone: [facility] 04-11-2024 16:32-0400 Body weight 58.97 kg Reba Posada PA Work Phone: [facility] 04-11-2024 16:32-0400 Diastolic blood pressure 78 mm[Hg] Reba Posada PA Work Phone: [facility] 04-11-2024 16:32-0400 Heart rate 70 /min Reba Posada PA Work Phone: [facility] 04-11-2024 16:32-0400 Respiratory rate 16 /min Reba Posada PA Work Phone: [facility] 04-11-2024 16:32-0400 SaO2% (BldA) [Mass fraction] 96 % Reba Posada PA Work Phone: [facility] 04-11-2024 16:32-0400 Systolic blood pressure 120 mm[Hg] Reba Posada PA Work Phone: [facility] 04-04-2024 16:34-0400 Body height 177.8 cm Bubba Ghotra MD Work Phone: [facility] 04-04-2024 16:34-0400 Body mass index (BMI) [Ratio] 18.37 kg/m2 Bubba Ghotra MD Work Phone: [facility] 04-04-2024 16:34-0400 Body weight 58.06 kg Bubba Ghotra MD Work Phone: [facility] 04-04-2024 16:34-0400 Diastolic blood pressure 80 mm[Hg] Bubba Ghotra MD Work Phone: [facility] 04-04-2024 16:34-0400 Heart rate 71 /min Bubba Ghotra MD Work Phone: [facility] 04-04-2024 16:34-0400 SaO2% (BldA) [Mass fraction] 97 % Bubba Ghotra MD Work Phone: [facility] 04-04-2024 16:34-0400 Systolic blood pressure 140 mm[Hg] Bubba Ghotra MD Work Phone: [facility] 09-17-2023 14:59-0500 Body height 177.8 cm [facility] 09-17-2023 14:59-0500 Body mass index (BMI) [Ratio] 18.8 kg/m2 [facility] 09-17-2023 14:59-0500 Body temperature 98.1 [degF] [facility] 09-17-2023 14:59-0500 Body weight 59.42 kg [facility] 09-17-2023 14:59-0500 Diastolic blood pressure 45 mm[Hg] [facility] 09-17-2023 14:59-0500 Systolic blood pressure 82 mm[Hg] [facility] 03-25-2023 13:30-0400 Body height 177.8 cm Mahnaz Roth Other [facility] [employer] Other 03-25-2023 13:30-0400 Body mass index (BMI) [Ratio] 18.65 kg/m2 Mahnaz Roth Other [facility] [employer] Other 03-25-2023 13:30-0400 Body temperature 98.4 [degF] Mahnaz Roth Other [employer] Other 03-25-2023 13:30-0400 Body weight 58.97 kg Mahnaz Roth Other [employer] Other 03-25-2023 13:30-0400 Diastolic blood pressure 87 mm[Hg] Mahnaz Roth Other [employer] Other 03-25-2023 13:30-0400 Systolic blood pressure 135 mm[Hg] Mahnaz Roth Other [employer] Other 12-24-2021 09:50-0400 Blood Pressure Location Gustavo Graves Jr. [facility] 12-24-2021 09:50-0400 Diastolic blood pressure 76 mm[Hg] Gustavo Graves Jr. [facility] 12-24-2021 09:50-0400 Heart rate 68 /min Gustavo Graves Jr. [facility] 12-24-2021 09:50-0400 Systolic blood pressure 132 mm[Hg] Gustavo Star Manley [facility] Encounters Encounter Date Encounter Type Care Provider Facility Start: 11-07-2024 End: 11-07-2024 ambulatory [facility] Work Phone: Start: 11-07-2024 End: 11-07-2024 Patient encounter procedure [facility] Work Phone: Start: 11-01-2024 End: 11-01-2024 [...] Not Available Start: 09-14-2024 End: 09-14-2024 ambulatory [facility] Start: 08-30-2024 End: 08-30-2024 Office outpatient visit 15 minutes Bubba Ghotra MD Work Phone: [facility] Comment on above: Urinary incontinence without sensory awareness; Post-void dribbling; Relapsing remitting multiple sclerosis (CMS/HCC) Start: 08-30-2024 End: 08-30-2024 ambulatory BUBBA GHOTRA Not Available Start: 08-23-2024 End: 08-23-2024 ambulatory [facility] Work Phone: Start: 08-23-2024 End: 08-23-2024 Patient encounter procedure [facility] Work Phone: Start: 08-10-2024 End: 08-10-2024 [...] 06-22-2024 Telephone encounter Reba RIGGINS Work Phone: [facility] [employer] [address] Comment on above: MED FOR MRI Start: 06-07-2024 End: 06-07-2024 ambulatory REBA POSADA Not Available Start: 06-07-2024 End: 06-07-2024 Office outpatient visit 25 minutes Reba RIGGINS Work Phone: [facility] [place] [address] Comment on above: Multiple [...] 05-16-2024 Refill Kenna Lockett RN Work Phone: [facility] Comment on above: Insomnia, unspecifie d type (Primary Dx); Relapsing remitting multiple sclerosis (CMS/HCC) Start: 05-10-2024 End: 05-10-2024 [facility] Work Phone: Start: 05-10-2024 End: 05-10-2024 Patient encounter procedure [facility] Work Phone: Start: 04-18-2024 End: 04-19-2024 Refill Elaina RIGGINS Work Phone: [facility] Comment on above: Cervical radiculopat hy; Sensory disturbance Start: 04-15-2024 End: 04-18-2024 Refill Kenna Lockett RN Work Phone: [facility] Comment on above: Venous insufficiency ; Relapsing remitting multiple sclerosis (CMS/HCC) Start: 04-14-2024 End: 04-14-2024 [facility] Work Phone: Start: 04-14-2024 End: 04-14-2024 Patient encounter procedure [facility] Work Phone: Start: 04-11-2024 End: 04-11-2024 ambulatory REBA POSADA Not Available Start: 04-11-2024 End: 04-11-2024 Office outpatient visit 25 minutes Reba Posada PA Work Phone: [facility] [place] [address] Comment on above: Multiple [...] Cervical radiculopathy Start: 03-04-2024 End: 03-04-2024 ambulatory [facility] Start: 01-19-2024 End: 01-19-2024 ambulatory [facility] Work Phone: Start: 01-19-2024 End: 01-19-2024 Patient encounter procedure [facility] Work Phone: Start: 12-23-2023 End: 12-23-2023 ambulatory BUBAB GHOTRA Not Available Start: 11-26-2023 End: 11-26-2023 ambulatory BUBBA GHOTRA Not Available Start: 11-18-2023 End: 11-18-2023 ambulatory [facility] Work Phone: Start: 11-18-2023 End: 11-18-2023 Patient encounter procedure [facility] Pall[facility] Work Phone: Start: 09-17-2023 End: 09-17-2023 Patient encounter procedure [facility] Work Phone: Start: 08-26-2023 End: 08-29-2023 Non-patient / Non-visit [facility] Work Phone: Start: 08-21-2023 End: 08-21-2023 ambulatory Mahnaz Ira Other [employer] Other Start: 08-21-2023 Telephone encounter Mahnaz Tucker[facility] Start: 07-22-2023 End: 07-22-2023 ambulatory Mahnaz Tuckerraw Other [employer] Other Start: 07-22-2023 Telephone encounter Mahnaz Tuckerraw [facility] Start: 06-24-2023 End: 06-24-2023 ambulatory Mahnaz Ira Other [employer] Other Start: 06-24-2023 Telephone encounter Mahnaz Tuckerraw [facility] Start: 05-28-2023 End: 05-28-2023 ambulatory Mahnaz Ira Other [employer] Other Start: 05-28-2023 Telephone encounter Mahnaz Ira [facility] Start: 05-19-2023 End: 05-19-2023 ambulatory Mahnaz Ira Other [employer] Other Start: 05-19-2023 Office outpatient vi sit 15 minutes Mahnaz Ira [facility] Start: 04-21-2023 End: 04-21-2023 ambulatory Mahnaz Ira Other [employer] Other Start: 04-21-2023 Office outpatient vi sit 15 minutes Mahnaz Ira [facility] Start: 04-07-2023 End: 04-07-2023 ambulatory Mahnaz Ira Other [employer] Other Start: 04-07-2023 Telephone encounter Mahnaz Ira [facility] Start: 04-02-2023 End: 04-02-2023 ambulatory Mahnaz Ira Other [employer] Other Start: 04-02-2023 Telephone encounter Mahnaz Ira [facility] Start: 04-01-2023 End: 04-01-2023 ambulatory Mahnaz Ira Other [employer] Other Start: 04-01-2023 Telephone encounter Mahnaz Ira [facility] Start: 03-25-2023 End: 03-25-2023 ambulatory Mahnaz Ira Other [employer] Other Start: 03-25-2023 Office outpatient ne w [...] Start: 09-16-2022 ambulatory LAMAR TURNER Facili ty:[facility] Start: 06-26-2022 End: 06-27-[address] LISA [...] 12-24-2021 End: 12-25-2021 ambulatory Heri MURRELL Facility:[facility] Start: 12-24-2021 End: 12-24-2021 Patient encounter procedure Gustavo Graves Jr. [facility] Start: 12-17-2021 End: 12-19-[address] DOCTOR BENNETT Facility:[facility] Start: 12-12-2021 End: 12-13-2021 ambulatory LAMAR TURNER Facility:[facility] Start: 12-05-2021 End: 12-06-2021 ambulatory Heri MURRELL Facility:[facility] Start: 12-05-2021 End: 12-05-2021 Patient encounter procedure Gustavo Graves Jr. [facility] Start: 12-05-2021 ambulatory Heri MURRELL Facility :[facility] Start: 12-03-2021 End: 12-04-2021 ambulatory REBA BINH Facility:[facility] Start: 10-14-2021 End: 10-15-2021 ambulatory Heri MURRELL Facility:[facility] Start: 09-19-2021 ambulatory Heri MURRELL Facility :[facility] Start: 12-11-2017 End: 12-12-2017 Patient encounter procedure Tunde Das Facility:[facility] Procedures Date Procedure Procedure Detail Performing Clinician [...] Visit [facility] [address] [place] [address] Reba Posada PA [address] [place], [place] [id number] [facility] Start: 12-22-2024 Medicare Annual Well ness (AWV) Medicare Annual Wellness (AWV) [facility] Start: 11-01-2024 End: 11-01-2024 Patient encounter procedure 11/01/2024 4:30 PM EDT Office Visit [facility] [address] [facility] [address] [place] [address] Bubba Ghotra MD [address] [facility] [address] [place] [address] (Fax) Arrived [facility] Comment on above: Arrived Start: 09-28-2024 End: 09-28-2024 Patient encounter procedure [facility] [place] [address] Start: 09-28-2024 End: 09-28-2025 CBC W Auto Differential panel - Blood CBC auto differential Lab Routine Multiple sclerosis ([facility]) Expected: 09/28/2024 (Approximate), Expires: 09/28/2025 [facility] Comment on above: Expected: 09/28/2024 (Approximate), Expires: 09/28/2025 Start: 09-28-2024 End: 09-28-2025 Comprehensive metabolic 2000 panel - Serum or Plasma Comprehensive metabolic panel Lab Routine Multiple sclerosis ([facility]) Expected: 09/28/2024 (Approximate), Expires: 09/28/[address] [facility] Comment on above: Expected: 09/28/2024 (Approximate), Expires: 09/28/2025 Start: 09-28-2024 End: 09-28-2025 IgG [Mass/volume] in Serum or Plasma IgG Lab Routine Multiple sclerosis ([facility]) Expected: 09/28/2024 (Approximate), Expires: 09/28/2025 [facility] Work Phone: Comment on above: Expected: 09/28/2024 (Approximate), Expires: 09/28/2025 Start: 09-12-2024 End: 09-12-2024 Patient encounter procedure 09/12/2024 2:45 PM EST Consult [facility] [address] [place] [id number] Krishna Hernandez DO [address] [place] [address] [facility] Start: 08-18-2024 End: 08-18-2024 Patient encounter procedure 08/18/2024 3:30 PM EST Office Visit [facility] [address] [place] [address] Bubba Ghotra MD [address] [place] [address] [facility] Start: 07-11-2024 End: 07-11-2024 Patient encounter procedure [facility] Comment on above: Primary hypertension (CMS/HCC); Primary insomnia; Mixed hyperlipidemia (CMS/HCC); Protein-calorie malnutrition, moderate (CMS/HCC) Start: 06-07-2024 End: 06-07-2024 Patient encounter procedure 06/07/2024 3:40 PM EST Office Visit [facility] [place] [address] [place] [phone] Reba Posada PA [address] [place] [address] [facility] [place] [address] Start: 05-13-2024 End: 04-12-2025 Sodium [Moles/volume] in Serum or Plasma Sodium Lab Routine Multiple sclerosis (CMS/HCC) Expected: 05/13/2024 (Approximate), Expires: 04/12/2025 [facility] Work Phone: Comment on above: Expected: 05/13/2024 (Approximate), Expires: 04/12/2025 Start: 05-10-2024 End: 05-10-2024 Patient encounter procedure 05/10/2024 1:20 PM EDT Office Visit [facility] [place] [address] [place] [address] Reba Posada PA [address] [place] [address] [facility] [place] [address] Start: 04-11-2024 End: 04-11-2024 Patient encounter procedure 04/11/2024 11:20 AM EDT Office Visit [facility] [place] [address] [place] [address] Reba Posada PA [address] [place] [address] [facility] Start: 04-04-2024 End: 04-04-2024 Patient encounter procedure [facility] Comment on above: Primary hypertension (CMS/HCC); Simple chronic bronchitis (CMS/HCC); Panlobular emphysema (CMS/HCC); Gastroesophageal reflux disease without esophagitis; Mixed hyperlipidemia (CMS/HCC); Former smoker; Polypharmacy; Underweight Start: 1970 Screening for malign ant neoplasm of colon [facility] Immunizations Immunization Date Immunization Notes Care Provider Fa alexa 10-22-2020 SARS-CoV-2 (COVID-19 ) mRNA BNT-162b2 vax Gustavo Graves Jr. [facility] 10-01-2020 SARS-CoV-2 (COVID-19 ) mRNA BNT-162b2 vax Gustavo Graves Jr. [facility] Payers Date Payer Category Payer Medicare (Managed Care) 1.2. [id number] 2024 Medicare [id number] 2019 Medicaid [id number] [id number] .[id number] 2003 Medicare [id number]. 1.13.693.2.7.3 .[id number] 1969 Unknown [id number] 2.16.840.1.459649.3.579.2.727 1969 Unknown [id number] 2.16.840.1.087449.3.579.2.727 1969 Unknown [id number] 2.16.840.1.266688.3.579.2.727 1969 Unknown [id number] 2.16.840.1.054302.3.579.2.727 1969 Unknown [id number] 2.16.840.1.688162.3.579.2.727 1969 Unknown [id number] 2.16.840.1.542241.3.579.2.593 1969 Unknown [id number] 2.16.840.1.226867.3.579.2.593 1969 Unknown [id number] 2.16.840.1.662106.3.579.2.593 1969 Unknown [id number] 2.16.840.1.429606.3.579.2.593 1969 Unknown [id number] 2.16.840.1.509619.3.579.2.593 1969 Unknown [id number] 2.16.840.1.238078.3.579.2.593 1969 Unknown [id number] 2.16.840.1.030538.3.579.2.593 1969 Unknown [id number] 2.16.840.1.829619.3.579.2.593 1969 Unknown [id number] 2.16.840.1.215888.3.579.2.593 1969 Unknown [id number] 2.16.840.1.190390.3.579.2.593 1969 Unknown [id number] 2.16.840.1.866921.3.579.2.593 1969 Unknown [id number] 2.16.840.1.534326.3.579.2.593 1969 Unknown [id number] 2.16.840.1.779312.3.579.2.593 1969 Unknown [id number] 2.16.840.1.110777.3.579.2.593 1969 Unknown [id number] 2.16.840.1.303963.3.579.2.593 1969 Unknown [id number] 2.16.840.1.476076.3.579.2.593 1969 Unknown [id number] 2.16.840.1.370810.3.579.2.593 1969 Unknown [id number] 2.16.840.1.037870.3.579.2.593 1969 Unknown [id number] 2.16.840.1.319978.3.579.2.593 1969 Unknown [id number] 2.16.840.1.953017.3.579.2.593 1969 Unknown [id number] 2.16.840.1.494406.3.579.2.128 6 1969 Unknown [id number] 2.16.840.1.682246.3.579.2.128 6 1969 Unknown [id number] 2.16.840.1.850604.3.579.2.125 9 1969 Unknown [id number] 2.16.840.1.627895.3.579.2.125 9 1969 Unknown [id number] 2.16.840.1.708790.3.579.2.125 9 1969 Unknown [id number] 2.16.840.1.761689.3.579.2.125 9 1969 Unknown [id number] 2.16.840.1.771381.3.579.2.125 9 1969 Unknown [id number] 2.16.840.1.515625.3.579.2.125 9 1969 Unknown [id number] 2.16.840.1.288382.3.579.2.125 9 1969 Unknown [id number] 2.16.840.1.633504.3.579.2.125 9 1969 Unknown [id number] 2.16.840.1.291858.3.579.2.125 9 1969 Unknown [id number] 2.16.840.1.372477.3.579.2.125 9 1959 Medicaid [id number] 1960 Medicare [id number] 1960 Self-pay Private Health Insurance Unknown HCAP/HFA/FAP Active [id number] Social History Date Type Detail Facility Start: 10-14-2021 End: 12-23-2023 Tobacco smoking status Ex-smoker (finding) [facility] Start: 12-01-2022 End: 01-23-2023 Sex Assigned At Male [facility] Start: 1970 Sex Assigned At Male [facility] Start: 08-18-2008 End: 08-18-2023 History of [...] stat us NHIS Unknown if ever smoked [facility] Work Phone: Start: 08-23-2024 End: 11-07-2024 Sex Male (finding) [facility] Functional Status Date Assessment Result Facility 12-24-2021 Functional Status N/A [facility] Clinical Notes 12-05-2021 to 11-01-2024 Bubba Ghotra [...] if needed for opioid reversal. Nebulizers (Comp[place] [facility] [place] 4 times per day regularly and [...] COPD with acute exacerbation ([facility]) (Primary) Chronic problem with acute exacerbation. Historically [...] evaluation and management. documented in this encounter [facility] 10-24-2024 Telephone encount er Note You prescription sent [facility] 10-24-2024 Miscellaneous Notes Formattin g of this note might be different from the original. You prescription sent [facility] called back and stated that a PA [...] is being taken with the Abilify. ID# [id number] documented in this encounter [facility] 10-24-2024 Telephone encount er Note [facility] called back and stated that a PA does not need done if changes the script because it is a quantity issue. If he changes it to 100mg 0.5-1 tablet that should work with the extra after four hours of wakening. [facility] 10-20-2024 Telephone encount er Note They do not like the amount per day and that it is being taken with the Abilify. ID# [id number] [facility] 10-20-2024 Telephone encount er Note Prescription sent [facility] 10-20-2024 Miscellaneous Notes Formattin g of this note might be different from the original. Prescription sent Corinne from [facility] called, harish is in need of losartan (Cozaar) 100 MG metoprolol tartrate (Lopressor) 50 MG They are asking to be sent in by . They are filling his meds on Thursday. documented in this encounter [facility] 10-19-2024 Telephone encount er Note Corinne from [facility] called, harish is in need of losartan (Cozaar) 100 MG metoprolol tartrate (Lopressor) 50 MG They are asking to be sent in by . They are filling his meds on Thursday. [facility] 10-18-2024 Telephone encount er Note Please send Lyrica. I cannot get it to let me just decline the trileptal. Looks like we discontinued this last visit [facility] 10-18-2024 Miscellaneous Notes Formattin g of this note might be different from the original. Please send Lyrica. I cannot get it to let me just decline the trileptal. Looks like we discontinued this last visit documented in this encounter [facility] 09-28-2024 History of Presen t illness Narrative Subjective Harish Mckenna is a 54 y.o. year old male Chief Complaint Patient presents with Multiple Sclerosis Past Medical History: Diagnosis Date Anxiety Asthma ([facility]) Body mass index (BMI) of 21.0 to 21.9 in adult normal BMI BPH (benign prostatic hyperplasia) Cervical radiculopathy Cigarette smoker 12/01/2022 COPD (chronic obstructive pulmonary disease) ([facility]) ED (erectile dysfunction) Emphysema lung ([facility]) GERD (gastroesophageal reflux disease) Headache Herpes simplex 02/08/2008 Mononeuritis of lower limb 02/19/2012 MS (mitral stenosis) Multiple sclerosis ([facility]) 02/17/2008 Sleep disturbance 03/27/2011 Smoker Past Surgical History: Procedure Laterality Date KNEE SURGERY Left 04/2013 arthroscopy - Radha OTHER SURGICAL HISTORY 11/2021 urolift procedure, [facility], Dr. Graves [place],CHOLECYSTECTOMY 11/16/2013 TONSILLECTOMY WISDOM TOOTH EXTRACTION Family [...] Review Audit Reviewed by Adia Laurent MA (Loss Control Manager) on 09/28/24 at 1417 Medication Order Taking? Sig Documenting Provider Last Dose Status albuterol (2.5 MG/3ML) 0.083% nebulizer solution [id number] Take 3 mL (2.5 mg) by nebulization every 6 (six) hours if needed for wheezing Bubba Ghotra MD 08/30/24 2359 ARIPiprazole (Abilify) 5 MG tablet [id number] No Take 5 mg by mouth Daily Historical Provider, Taking Active baclofen (Lioresal) 20 MG tablet [id number] Take 1 tablet (20 mg) by mouth in the morning and 1 tablet (20 mg) in the evening and 1 tablet (20 mg) before bedtime. GILSON James 08/30/24 2359 budesonide-formoterol (Symbicort) 160-4.5 MCG/ACT inhaler [id number] Inhale 2 puffs in the morning and 2 puffs before bedtime. Bubba Ghotra MD Active Cannabinoids (medical cannabis) [id number] No Take 1 each by mouth Daily as needed. Bubba Ghotra MD Taking Active clonazePAM (KlonoPIN) 1 MG tablet [id number] No Take 1 mg by mouth in the morning and 1 mg before bedtime. Taking Active Docusate Sodium (DSS) 100 MG capsule [id number] Take 2 capsules by mouth Daily Active DULoxetine (Cymbalta) [address] capsule [id number] No Take 2 capsules by mouth in the morning. Historical Provider, Taking Active ipratropium (Atrovent) 0.06 % nasal spray [id number] Administer 2 sprays into each nostril in the morning and 2 sprays before bedtime. Bubba Ghotra MD Active losartan (Cozaar) 100 MG tablet [id number] Take 1 tablet (100 mg) by mouth Daily Bubba Ghotra MD Active meclizine (Antivert) 25 MG tablet [id number] No Take 25 mg by mouth 3 (three) times a day as needed for nausea. Historical Provider, Taking Active metoprolol tartrate (Lopressor) 50 MG tablet [id number] Take 1.5 tablets (75 mg) by mouth in the morning and 1.5 tablets (75 mg) before bedtime. Bubba Ghotra MD Active naloxone (Narcan) 4 mg/0.1 mL nasal spray [id number] No Administer 4 mg into affected nostril(s) if needed for opioid reversal. Historical Provider, Taking Active Nebulizers (Compressor/Nebulizer[place] [facility] [id number] No Use 4 times per day regularly and every 4 hours as needed for shortness of breath and wheezing as directed Bubba Ghotra MD Taking Active Ocrevus 300 MG/10ML solution [id number] No Infuse into a venous catheter every 6 (six) months Bubba Ghotra MD Taking Active ondansetron ODT (Zofran-ODT) 4 MG disintegrating tablet [id number] Take 1 tablet (4 mg) by mouth every 8 (eight) hours if needed for nausea Bubba Ghotra MD Active OXcarbazepine (Trileptal) 300 MG tablet [id number] Take 1 tablet (300 mg) by mouth at bedtime GILSON James 08/30/24 9069 oxyCODONE (Roxicodone) 15 MG immediate release tablet [id number] Take 15 mg by mouth every 6 (six) hours if needed (pain) Bubba Ghotra MD Active oxygen (O2) gas [id number] No Inhale 2-3 L/min continuously via nasal canula Taking Active oxygen (O2) gas [id number] No Inhale oxygen via portable oxygen concentrator and nasal canula setting of 3 To maintain pulse ox saturation of 92% Bubba Ghotra MD Taking Active pantoprazole (ProtoNix) 40 MG EC tablet [id number] Take 1 tablet (40 mg) by mouth in the morning and 1 tablet (40 mg) before bedtime. Bubba Ghotra MD Active pregabalin (Lyrica) 200 MG capsule [id number] Take 1 capsule (200 mg) by mouth in the morning and 1 capsule (200 mg) in the evening and 1 capsule (200 mg) before bedtime. GILSON James 08/30/24 2359 primidone (Mysoline) 50 MG tablet [id number] Take 2 tablets (100 mg) by mouth at bedtime GILSON James 08/30/24 2359 promethazine (Phenergan) 25 MG tablet [id number] No Take 25 mg by mouth every 6 (six) hours if needed for nausea. Stan Blanchard MD Taking Active QUEtiapine (SEROquel) 50 MG tablet [id number] Take 1-2 tablets (50-100 mg) by mouth at bedtime May repeat in about 4 hours upon awakening Bubba Ghotra MD Active senna (Senokot) 8.6 MG tablet [id number] No Take 2 tablets by mouth 2 (two) times a day as needed for constipation Bubba Ghotra MD Taking Active sildenafil (Viagra) 100 MG tablet [id number] Take 1 tablet (100 mg) by mouth Daily as needed for erectile dysfunction Bubba Ghotra MD Active sodium chloride 0.9 % nebulizer solution [id number] Take 3 mL by nebulization every 4 (four) hours if needed for shortness of breath (and muus clearance) Bubba Ghotra MD Active spironolactone (Aldactone) 50 MG tablet [id number] Take 1 tablet (50 mg) by mouth [...] even hurts -follows with Palliative care at [facility], prescribed Oxycodone and was recently increased -tremors [...] triceps, wrist extensors, wrist extensors, wrist flexor, sales representative printing supplies strength 5/5. LUE Strength deltoid, biceps, triceps, wrist extensors, wrist extensors, wrist flexor, sales representative printing supplies strength 5/5. RLE Strength illopsoas, quadriceps, tibialis [...] this visit: Multiple sclerosis ([facility]) Neurogenic bladder History of RRMS which has [...] or worsening symptoms documented in this encounter [facility] 08-30-2024 History of Presen t illness Narrative Patient ID: Harish Mckenna is a 54 y.o. male who presents for: Urinary Incontinence This is a appq-qp-alvm visit. Patient complains of urinary incontinence. This [...] if needed for opioid reversal. Nebulizers (Compressor/Nebulizer) [facility] [place] 4 times per day regularly and [...] minutes 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, 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 1 tablet 0 [DISCONTINUED] ipratropium (Atrovent) 0.06 [...] drugs. I certify that I had a adzv-ox-xpnx encounter with this patient at [facility] office visit. Due to this medical condition the patient requires DME. I certify that based on my findings The DME ordered is medically necessary for this patient. This has been discussed with the patient and/or their agency sales representative and mutually agreed upon. 2. Post-void [...] of weight on. documented in this encounter [facility] 08-10-2024 History of Presen t illness Narrative Images from the original note were not included. Patient ID: Harish Mckenna is a 54 y.o. male who presents for: This note is in error. Harish was unable to connect to the telemedicine visit. Due to technical difficulties the visit can not be deleted out of the system. documented in this encounter [facility] 07-21-2024 Telephone encount er Note I called the patient and he is still taking the Trileptal 1 po at bedtime. [facility] 07-21-2024 Miscellaneous Notes Formattin g of this [...] if symptoms worsen. documented in this encounter [facility] 07-21-2024 Telephone encount er Note Please advise on Primidone Rx before sending. The last office visit just mentions 2 po at bedtime but the last refill sent is 1 po qam, 2 po at bedtime. Also his last office visit said to stop Trileptal and to resume if symptoms worsen. [facility] 07-11-2024 History of Presen t illness Narrative [...] minutes 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, 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 1 tablet 0 Docusate Sodium (DSS) 100 [...] if needed for opioid reversal. Nebulizers (Compressor/Nebulizer) [facility] [place] 4 times per day regularly and [...] evaluation and management. documented in this encounter [facility] 06-24-2024 Telephone encount er Note RX sent [facility] 06-24-2024 Miscellaneous Notes Formattin g of this note might be different from the original. RX sent documented in this encounter [facility] 06-22-2024 Telephone encount er Note PATIENT CALLS ASKING FOR ANOTHER REFILL OF VALIUM FOR HIS MRI FOR TOMORROW. HIS MRI IS AT 2:30 PM ON 06/23/2024 BUT HAS TO LEAVE BY 2:00... ARE YOU ABLE TO SEND THIS IN FOR HIM? # [phone] [facility] 06-22-2024 Miscellaneous Notes Formattin g of this note might be different from the original. PATIENT CALLS ASKING FOR ANOTHER REFILL OF VALIUM FOR HIS MRI FOR TOMORROW. HIS MRI IS AT 2:30 PM ON 06/23/2024 BUT HAS TO LEAVE BY 2:00... ARE YOU ABLE TO SEND THIS IN FOR HIM? CB # [phone] documented in this encounter [facility] 05-16-2024 History of Presen t illness Narrative Pt lm, requests rx for Seroquel documented in this encounter [facility] 04-15-2024 History of Presen t illness Narrative SW spoke to pt, needs rx for Spironolactone. documented in this encounter [facility] 04-04-2024 History of Presen t illness Narrative [...] on healthy diet. documented in this encounter [facility] 03-23-2024 Telephone encount er Note Pharmacy requesting refills of primidone and lyrica. Pt last seen 07/09/2023. No appt scheduled. Would you like to fill medication. Please advise. [facility] 03-23-2024 Miscellaneous Notes Formattin g of this note might be different from the original. Pharmacy requesting refills of primidone and lyrica. Pt last seen 07/09/2023. No appt scheduled. Would you like to fill medication. Please advise. documented in this encounter [facility] 08-21-2023 Evaluation note Encounter Date Diagnosis Assessment Notes Aug, Chronic pain (ICD-10 - G89.29) OARRS reviewed, consistent with Rx. MME 60 mg/day Synfora Other 01-10-2024 Evaluation note* Encounter Date Diagnosis Assessment Notes Treatment Notes Treatment Clinical Notes Jul, Chronic pain (ICD-10 - G89.29) OARRS reviewed, consistent with Rx. Also has benzo prescribed by [facility] and pregabalin by neurology Synfora Other 12-13-2023 Evaluation note* Encounter Date Diagnosis Assessment Notes Treatment Notes Treatment Clinical Notes Jun, Chronic pain (ICD-10 - G89.29) Synfora Other 11-16-2023 Evaluation note* Encounter Date Diagnosis Assessment Notes Treatment Notes Treatment Clinical Notes May, Chronic pain (ICD-10 - G89.29) OARRS reviewed, consistent with Rx Synfora Other 11-07-2023 Evaluation note* Encounter Date Diagnosis [...] at bedtime instead of using PRN only Synfora Other 10-10-2023 Evaluation note* Encounter Date Diagnosis Assessment Notes Treatment Notes Treatment Clinical Notes Apr, Chronic pain (ICD-10 - G89.29) OARRS reviewed, consistent with Rx. Harish reports some relief with oxycodone 10 mg tabs, and is using med 3-4x/daily. Continue same without change. Apr, Constipation (ICD-10 - K59.00) Improved elimination with daily use of senna Synfora Other 09-26-2023 Evaluation note* Encounter Date Diagnosis [...] reported some lose stools after using routinely Synfora Other 09-20-2023 Evaluation note* Encounter Date Diagnosis Assessment Notes Treatment Notes Treatment Clinical Notes Mar, Chronic pain (ICD-10 - G89.29) OARRS reviewed, consistent with recent Rx. Increasing frequency of oxycodone to q6h PRN to improve pain control. Mar, Constipation (ICD-10 - K59.00) Harish is using Miralax daily but remains constipated, will add stimulant laxative Synfora Other 09-13-2023 Evaluation note* Encounter Date Diagnosis [...] of Constipation hand out provided to patient Synfora Other 04-06-2023 NoteCONSULTATION CONSULTATION DATE: 10/16/2022 TO: [...] 25 mg daily, Lyrica 200 mg t.i.d., Moran 7.5 mg b.i.d. He currently uses medical [...] THC if we are to continue with Moran. However, at this point, I do not [...] our patients to inform us about any youq-tud-xrcibae medications or herbal remedies/nutritional supplements/alternative remedies. 2. [...] treatment options with their primary care provider.[facility] [id number] Note CONSULTATION CONSULTATION DATE: 06/26/2022 HISTORY OF [...] Lyrica 200 mg t.i.d. per his neurologist, Moran 7.5/325 b.i.d., Cymbalta, baclofen and Ocrevus. Patient's [...] medication changes today. He was increased to Moran 7.5/325 at his last visit, and the patient feels it is somewhat helpful. We will continue to medically manage him only. Patient will be seen in the clinic in three months' time unless otherwise indicated.[facility] CenterZgzkreel07-09-1924 NoteCONSULTATION CONSULTATION DATE: 03/13/2022 HISTORY OF PRESENT ILLNESS: This is 51-year-old gentleman, well known to the Pain Clinic, returning for a three month follow up. This gentleman has history of MS, chronic pain syndrome and diffuse neuropathic pain, which is chronically medically managed with a medication regimen. Current medications include Mobic 15 mg daily, Lyrica 200 mg t.i.d., Moran 5/325 t.i.d., baclofen, Trileptal and amitriptyline. Patient recently suffered a family loss and reportedly has lost about 12 pounds in weight. He does ambulate with a cane and is stable with that. He is requesting today that we change his Moran from t.i.d. to 7.5 b.i.d. as he [...] pain. PLAN: We will check from his Moran 5/325 t.i.d. to 7.5/325 b.i.d. We will maintain his other medications with no dose or frequency change. He will be given a U-Tox in the clinic today. I did discuss vitamin importance as well as supplementing his protein intake with Boost supplements. We will see the patient in three months' time, unless otherwise indicated. Patient is in agreement to this.[facility] [id number] Hospital Discharge instructions Patient Education 12/24/2021 10:47:00 [...] including vitamins, herbs, eye drops, creams, and crfs-whc-ibibuap medicines. This also includes: ?Medicines to assist [...] 08/01/2005 Document Revised: 06/11/2018 Document Reviewed: 04/05/2018 [employer] Patient Education 2020 [employer]. Follow Up Care 12/05/2021 14:04:21 With:Star Manley MD, Gustavo Orlando [facility]RO Address: [facility] [address], [place] [address]- When:Within 6 Month(s) Comments:w/ PVR [facility] 05-26-2022 Note [id number]:127[facility] 12-05-2021 NoteUrolift ? Some men may [...] personnel to use a Coude (pronouncedcoo-day) tipped catheter.[facility]05-26-2022 Hospital Discharge instructions Patient Education 12/05/2021 [...] [facility] [address], [place] [address]- Business (1) When:2 to 4 weeks Comments:PVR with [facility] Future Appointments Appointment Date:12/24/2021 09:30:00 AM Scheduled Provider:Gustavo Graves Jr., MD Location:[facility] Appointment Type:URO [facility] Future Appointments Appointment Date:07/01/2022 10:45:00 AM Scheduled Provider:Gustavo Graves Jr., MD Location:[facility] Appointment Type:URO Office Visit [facility] evaluation noteNo [employer] Other evaluation note* Diagnosis Onset Date Resolution Status Chronic pain acute Constipation acute snf (current) use of opiate analgesic acute Multiple sclerosis [facility] Work Phone: evaluation note* Diagnosis Onset Date Resolution Status Chronic pain acute Constipation acute Multiple sclerosis [facility] Work Phone: evaluation note* Diagnosis Multiple sclerosis [...] pain syndrome acute Constipation acute Multiple sclerosis [facility] Work Phone: Evaluation note* Diagnosis [...] [facility]* Diagnosis Urinary incontinence [...] bipolar Medical History GERD Surgical History cholecystectomy Synfora Other Hospital course Narrative No data available for this section [facility] No data available for this section [facility] [place] Summary Purpose Family History Relationship Condition Age [...] f/u Reason for Visit Chronic pain 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 DATE CREATED AUTHOR AUTHOR'S ORGANIZ ATION 09/16/2022 Bailey Bartolo [facility] DATE CREATED AUTHOR AUTHOR'S ORGANIZ ATION 11/18/2022 [facility] [place] [facility] DATE CREATED AUTHOR AUTHOR'S ORGANIZ ATION 09/16/2024 [facility] DATE CREATED AUTHOR AUTHOR'S ORGANIZ ATION 11/02/2024 [facility] dical Specialists EPIC Care Team (unrecognized [...] September 17, 2023 End: September 17, 2023 Locomotive Inspector Relationship Specialty Start Date End Date Bubba Ghotra MD [address] [facility] [place] [address] (Fax) PCP - General Family Medicine 11/27/22 Bubba Ghotra MD [address] [facility] [place] [address] (Fax) PCP - ACO Reach 12/04/22 Elaina Burgess PA [address] [place] [address] Physician Integrated Marketing Intern Neurology 12/02/23 Kenna Lockett, GRAHAM Registered Nurse Family Medicine 12/02/23 Maty Win MD [address] [place] [id number] Referring Physician [facility] 12/02/23 Team Status: Inactive Member Role Status Dates Bubba Ghotra MD Primary Care Provider Active Start: April 14, 2024 End: April 14, 2024 Mahnaz Roth APRN Attending Provider Active Start: April 14, 2024 End: April 14, 2024 Locomotive Inspector Relationship Specialty Start Date End Date Bubba Ghotra MD [address] [facility] [place] [address] (Fax) PCP - General Family Medicine 11/27/22 Bubba Ghotra MD [address] [facility] [place] [address] (Fax) PCP - ACO Reach 12/04/22 Elaina Burgess PA [address] [place] [address] Physician Integrated Marketing Intern Neurology 12/02/23 Kenna Lockett RN Registered Nurse Family Medicine 12/02/23 Maty Win MD [address] [place] [address] Referring Physician Behavioral Health 12/02/23 Locomotive Inspector Relationship Specialty Start Date End Date Bubba Ghotra MD [address] [place] [address] (Fax) PCP - General Family Medicine 11/27/22 Bubba Ghotra MD [address] [place] [address] (Fax) PCP - ACO Reach 12/04/22 Elaina Burgess PA [address] [place] [phone] Physician Integrated Marketing Intern Neurology 12/02/23 Kenna Lockett, RN Registered Nurse Family Medicine 12/02/23 Maty Win MD [address] [place] [address] Referring Physician [facility] 12/02/23 Team Status: Inactive Member Role Status Dates Bubba Ghotra MD Primary Care Provider Active Start: May 10, 2024 End: May 10, 2024 Mahnaz Roth APRN Attending Provider Active Start: May 10, 2024 End: May 10, 2024 Locomotive Inspector Relationship Specialty Start Date End Date Bubba Ghotra MD [address] [phone] (Fax) PCP - General Family Medicine 11/27/22 Bubba Ghotra MD [address] [address] (Fax) PCP - ACO Reach 12/04/22 Elaina Burgess PA [address] [place] [address] Physician Integrated Marketing Intern Neurology 12/02/23 Kenna Lockett, RN Registered Nurse Family Medicine 12/02/23 Maty Win MD [address] [place], [place] [phone] Referring Physician Behavioral Health 12/02/23 Locomotive Inspector Relationship Specialty Start Date End Date Bubba Ghotra MD [address] [place] [address] (Fax) PCP - General Family Medicine 11/27/22 Bubba Ghotra MD [address] [place] [address] (Fax) PCP - ACO Reach 12/04/22 Elaina Burgess PA [address] [place], [place] [phone] Physician Integrated Marketing Intern Neurology 12/02/23 Kenna Lockett, RN Registered Nurse Family Medicine 12/02/23 Maty Win MD [address] [place] [phone] Referring Physician Behavioral Health 12/02/23 Locomotive Inspector Relationship Specialty Start Date End Date Bubba Ghotra MD [address] [place] [address] (Fax) PCP - General Family Medicine 11/27/22 Bubba Ghotra MD [address] [place] [address] (Fax) PCP - ACO Reach 12/04/22 Elaina Burgess PA [address] [place], [place] [phone] Physician Integrated Marketing Intern Neurology 12/02/23 Kenna Lockett, RN Registered Nurse Family Medicine 12/02/23 Maty Win MD [address] [place] [address] Referring Physician Behavioral Health 12/02/23 Locomotive Inspector Relationship Specialty Start Date End Date Bubba Ghotra MD [address] [place] [address] (Fax) PCP - General Family Medicine 11/27/22 Bubba Ghotra MD [address] [place] [address] (Fax) PCP - ACO Reach 12/04/22 Elaina Burgess PA [address] [facility] [address] [place], [place] [phone] Physician Integrated Marketing Intern Neurology 12/02/23 Kenna Lockett, RN Registered Nurse Family Medicine 12/02/23 Maty Win MD [address] [place] [address] Referring Physician Behavioral Health 12/02/23 Locomotive Inspector Relationship Specialty Start Date End Date Bubba Ghotra MD [address] [place] [address] (Fax) PCP - General Family Medicine 11/27/22 Bubba Ghotra MD [address] [place] [address] (Fax) PCP - ACO Reach 12/04/22 Elaina Burgess PA [address] [place] [address] Physician Integrated Marketing Intern Neurology 12/02/23 Kenna Lockett, GRAHAM Registered Nurse Family Medicine 12/02/23 Maty Win MD [address] [place] [address] Referring Physician Behavioral Health 12/02/23 Locomotive Inspector Relationship Specialty Start Date End Date Bubba Ghotra MD [address] [place] [address] (Fax) PCP - General Family Medicine 11/27/22 Bubba Ghotra MD [address] [place] [address] (Fax) PCP - ACO Reach 12/04/22 Elaina Burgess PA [address] [place] [address] Physician Integrated Marketing Intern Neurology 12/02/23 Kenna Lockett, GRAHAM Registered Nurse Family Medicine 12/02/23 Maty Win MD [address] [place] [address] Referring Physician Behavioral Health 12/02/23 Locomotive Inspector Relationship Specialty Start Date End Date Bubba Ghotra MD [address] [place] [address] (Fax) PCP - General Family Medicine 11/27/22 Bubba Ghotra MD [address] [facility] [address] [place] [address] (Fax) PCP - ACO Reach 12/04/22 Elaina Burgess PA [address] [place] [address] Physician Integrated Marketing Intern Neurology 12/02/23 Kenna Lockett, RN Registered Nurse Family Medicine 12/02/23 Maty Win MD [address] [place] [address] Referring Physician Behavioral Health 12/02/23 Locomotive Inspector Relationship Specialty Start Date End Date Bubba Ghotra MD [address] [place] [address] (Fax) PCP - General Family Medicine 11/27/22 Bubba Ghotra MD [address] [place] [address] (Fax) PCP - ACO Reach 12/04/22 Elaina Burgess PA [address] [place] [phone] Physician Integrated Marketing Intern Neurology 12/02/23 Kenna Lockett, RN Registered Nurse Family Medicine 12/02/23 Maty Win MD [address] [place] [address] Referring Physician Behavioral Health 12/02/23 Locomotive Inspector Relationship Specialty Start Date End Date Bubba Ghotra MD [address] [place] [address] (Fax) PCP - General Family Medicine 11/27/22 Bubba Ghotra MD [address] [place] [address] (Fax) PCP - ACO Reach 12/04/22 Elaina Burgess PA [address] [place] [address] Physician Integrated Marketing Intern Neurology 12/02/23 Kenna Lockett, GRAHAM Registered Nurse Family Medicine 12/02/23 Maty Win MD [address] [place] [address] Referring Physician Behavioral Health 12/02/23 Locomotive Inspector Relationship Specialty Start Date End Date Bubba Ghotra MD [address] [place] [address] (Fax) PCP - General Family Medicine 11/27/22 Bubba Ghotra MD [address] [place] [address] (Fax) PCP - ACO Reach 12/04/22 Elaina Burgess PA [address] [address] Physician Integrated Marketing Intern Neurology 12/02/23 Kenna Lockett, RN Registered Nurse Family Medicine 12/02/23 Maty Win MD [address] [place] [address] Referring Physician Behavioral Health 12/02/23 Locomotive Inspector Relationship Specialty Start Date End Date Bubba Ghotra MD [address] [place] [address] (Fax) PCP - General Family Medicine 11/27/22 Bubba Ghotra MD [address] [place] [address] (Fax) PCP - ACO Reach 12/04/22 Elaina Burgess PA [address] [place] [address] Physician Integrated Marketing Intern Neurology 12/02/23 Kenna Lockett, GRAHAM Registered Nurse Family Medicine 12/02/23 Maty Win MD [address] [place] [address] Referring Physician Behavioral Health 12/02/23 Locomotive Inspector Relationship Specialty Start Date End Date Bubba hGotra MD [address] [place] [address] (Fax) PCP - General Family Medicine 11/27/22 Bubba Ghotra MD [address] [place] [address] (Fax) PCP - ACO Reach 12/04/22 Elaina Burgess PA [address] [place] [address] Physician Integrated Marketing Intern Neurology 12/02/23 Kenna Lockett, RN Registered Nurse Family Medicine 12/02/23 Maty Win MD [address] [place] [address] Referring Physician Behavioral Health 12/02/23 Locomotive Inspector Relationship Specialty Start Date End Date Bubba Ghotra MD [address] [place] [address] (Fax) PCP - General Family Medicine 11/27/22 Bubba Ghotra MD [address] [place] [address] (Fax) PCP - ACO Reach 12/04/22 Elaina Burgess PA [address] [place] [address] Physician Integrated Marketing Intern Neurology 12/02/23 Kenna Lockett, RN Registered Nurse Family Medicine 12/02/23 Maty Win MD [address] [place] [address] Referring Physician Behavioral Health 12/02/23 Locomotive Inspector Relationship Specialty Start Date End Date Bubba Ghotra MD [address] [place] [address] (Fax) PCP - General Family Medicine 11/27/22 Bubba Ghotra MD [address] [place] [address] (Fax) PCP - ACO Reach 12/04/22 Elaina Burgess PA [address] [place] [address] Physician Integrated Marketing Intern Neurology 12/02/23 Kenna Lockett, RN Registered Nurse Family Medicine 12/02/23 Maty Win MD [address] [place] [address] Referring Physician Behavioral Health 12/02/23 Team Status: Inactive Member Role Status Dates Bubba Ghotra MD Primary Care Provider Active Start: August 23, 2024 End: August 23, 2024 Mahnaz Roth APRN Attending Provider Active Start: August 23, 2024 End: August 23, 2024 Locomotive Inspector Relationship Specialty Start Date End Date Bubba Ghotra MD [address] [facility] [address] [place] [address] (Fax) PCP - General Family Medicine 11/27/22 Bubba Ghotra MD [address] [address] (Fax) PCP - ACO Reach 08/26/24 Elaina Burgess PA [address] [place] [phone] Physician Integrated Marketing Intern Neurology 12/02/23 Kenna Lockett, RN Registered Nurse Family Medicine 12/02/23 Maty Win MD [address] [place] [address] Referring Physician Behavioral Health 12/02/23 Locomotive Inspector Relationship Specialty Start Date End Date Bubba Ghotra MD [address] [address] (Fax) PCP - General Family Medicine 11/27/22 Bubba Ghotra MD [address] [address] (Fax) PCP - ACO Reach 08/26/24 Elaina Burgess PA [address] [place] [address] Physician Integrated Marketing Intern Neurology 12/02/23 Kenna Lockett, GRAHAM Registered Nurse Family Medicine 12/02/23 Maty Win MD Referring Physician Behavioral Health 12/02/23 Locomotive Inspector Relationship Specialty Start Date End Date Bubba Ghotra MD [address] [place] [address] (Fax) PCP - General Family Medicine 11/27/22 Elaina Burgess PA [address] [place] [address] Physician Integrated Marketing Intern Neurology 12/02/23 Kenna Lockett RN Registered Nurse Family Medicine 12/02/23 Maty Win MD Referring Physician Behavioral Health 12/02/23 Locomotive Inspector Relationship Specialty Start Date End Date Bubba Ghotra MD [address] [place] [address] (Fax) PCP - General Family Medicine 11/27/22 Elaina Burgess PA [address] [place] [address] Physician Integrated Marketing Intern Neurology 12/02/23 Kenna Lockett RN Registered Nurse Family Medicine 12/02/23 Maty Win MD Referring Physician Behavioral Health 12/02/23 Locomotive Inspector Relationship Specialty Start Date End Date Bubba Ghotra MD [address] [place] [address] PCP - General Family Medicine 11/27/22 Elaina Burgess PA [address] [place] [address] Physician Integrated Marketing Intern Neurology 12/02/23 Kenna Lockett, RN Registered Nurse Family Medicine 12/02/23 Maty Win MD Referring Physician Behavioral Health 12/02/23 Locomotive Inspector Relationship Specialty Start Date End Date Bubba Ghotra MD [address] [place] [address] [address] [place] [address] PCP - General Family Medicine 11/27/22 Elaina Burgess PA [address] [place] [address] Physician Integrated Marketing Intern Neurology 12/02/23 Kenna Lockett, GRAHAM Registered Nurse [...] BE BASED ON THE PRIMARY CLINICAL RECORDS. [facility] [employer] [facility]. provides no warranty or guarantee of the accuracy or completeness of information in this document.
[2024-11-19 10:28] LABS: Bilirubin Urine NEGATIVE (NEGATIVE); Blood Urine NEGATIVE (NEGATIVE); Clarity Urine CLEAR (CLEAR); Color Urine YELLOW (YELLOW); Glucose Urine UA NEGATIVE (NEGATIVE); Ketones Urine 15 mg/dL (NEGATIVE); Leukocyte Esterase Urine NEGATIVE (NEGATIVE); Nitrite Urine NEGATIVE (NEGATIVE); Protein Urine TRACE mg/dL (NEG/TRACE); Specific Gravity Urine <=1.005 (1.005-1.025); pH Urine 8.5 (5.0-9.0)
[2024-11-19 10:29] LABS: Urine Microscopic Indicated NO
[2024-11-19] MEDS: ENOXAPARIN SODIUM 40 MG/0.4 ML SYRINGE SUBQ (10:38)
[2024-11-19] MEDS: LACTATED RINGER'S SOLUTION 1,000 ML 125 ML IV ×2 (10:38→17:57)
[2024-11-19 10:39] LABS: Amphetamine Screen Urine NEGATIVE (NEGATIVE); Barbiturates Screen Urine POSITIVE (NEGATIVE); Benzodiazepines Screen Urine POSITIVE (NEGATIVE); Buprenorphine Screen Urine NEGATIVE (NEGATIVE); Cannabinoid Screen Urine POSITIVE (NEGATIVE); Cocaine Screen Urine NEGATIVE (NEGATIVE); Methadone Screen Urine NEGATIVE (NEGATIVE); Methamphetamines Screen Urine NEGATIVE (NEGATIVE); Opiate Screen Urine NEGATIVE (NEGATIVE); Oxycodone Screen Urine POSITIVE (NEGATIVE); Phencyclidine Screen Urine NEGATIVE (NEGATIVE); Tricyclic Antidepressant Urine NEGATIVE (NEGATIVE)
[2024-11-19] MEDS: IPRATROPIUM/ALBUTEROL SULFATE 3 ML AMPUL.NEB IH ×3 (11:12→22:10)
[2024-11-19] MEDS: BUDESONIDE 0.5 MG/2 ML AMPULE NEB IH ×2 (11:13→22:10)
[2024-11-19] MEDS: METOPROLOL TARTRATE 50 MG TABLET 75 MG PO ×2 (12:22→20:30)
[2024-11-19] MEDS: METHYLPREDNISOLONE SOD SUCC PF 40 MG/ML VIAL IVP ×2 (12:22→17:31)
[2024-11-19] MEDS: SPIRONOLACTONE 25 MG TABLET 50 MG PO (12:23)
[2024-11-19] MEDS: LOSARTAN POTASSIUM 50 MG TABLET 100 MG PO (12:23)
[2024-11-19] MEDS: PANTOPRAZOLE SODIUM 40 MG TABLET.DR PO ×2 (12:23→20:32)
[2024-11-19] MEDS: ARIPIPRAZOLE 5 MG TABLET PO (12:23)
--- NOTE | 2024-11-19 12:47 | PC.NURSE ---
Pt has attempted to urinate multiple times with no success. Flight Attendant Ramp bladder scanned pt for 456mL and notified Dr. Lipscomb. put in an order for a Lira catheter. Flight Attendant Ramp went in to place Lira catheter and pt was hesitant. Educated pt. on the need for placement and pt agreed. While attempting to place the Lira catheter, pt stated, stop, please stop. take it out. Flight Attendant Ramp took out the Lira catheter. Again, educated pt for the need of the catheter. Pt states he wants to eat lunch and try to void on his own. He agreed for placement of Lira catheter if he is unable to void after lunch.
[2024-11-19] MEDS: PREGABALIN 100 MG CAPSULE 200 MG PO ×2 (14:54→22:41)
[2024-11-19] MEDS: OXYCODONE HCL 15 MG TABLET PO ×2 (14:54→20:31)
[2024-11-19] MEDS: BACLOFEN 10 MG TABLET 20 MG PO ×2 (14:54→22:35)
[2024-11-19] MEDS: GUAIFENESIN 200 MG/DEXTROMETHORPHAN 20 MG 10 ML UNIT DOSE CUP PO ×2 (15:47→22:34)
[2024-11-19] MEDS: CLONAZEPAM 0.5 MG TABLET 1 MG PO (20:31)
[2024-11-19] MEDS: DOCUSATE SODIUM 100 MG CAPSULE 200 MG PO (22:34)
[2024-11-19] MEDS: PRIMIDONE 50 MG TABLET 100 MG PO (22:34)
[2024-11-20] VITALS (64 sets, daily range): BP systolic 123–152; BP diastolic 78–98; PULSE 60–99; TEMP 36.6–37.1; O2SAT 90–100
[2024-11-20] MEDS: METHYLPREDNISOLONE SOD SUCC PF 40 MG/ML VIAL IVP ×5 (00:41→23:22)
[2024-11-20] MEDS: CEFTRIAXONE 1,000 MG in 0.9 % SODIUM CHLORIDE 50 ML 100 MG IV (02:54)
[2024-11-20] MEDS: LACTATED RINGER'S SOLUTION 1,000 ML 125 ML IV ×3 (02:54→20:06)
[2024-11-20] MEDS: OXYCODONE HCL 15 MG TABLET PO ×3 (02:58→23:41)
[2024-11-20] MEDS: AZITHROMYCIN 500 MG in 0.9 % SODIUM CHLORIDE 250 ML 250 MG IV (04:19)
[2024-11-20] MEDS: IPRATROPIUM/ALBUTEROL SULFATE 3 ML AMPUL.NEB IH ×4 (05:06→22:36)
[2024-11-20] MEDS: BACLOFEN 10 MG TABLET 20 MG PO ×3 (05:56→20:03)
[2024-11-20] MEDS: PREGABALIN 100 MG CAPSULE 200 MG PO ×3 (05:56→21:12)
[2024-11-20 06:07] LABS: Basophils Percent Auto 0.1 % (0.2-2.0); Hematocrit 33.1 % (42.0-54.0); Hemoglobin 11.4 g/dL (14.0-18.0); Immature Granulocytes Abs Auto 0.09 10^3/uL (0.00-0.03); Immature Granulocytes Pct Auto 0.5 % (0.0-0.5); Lymphocytes Percent Auto 6.2 % (20.5-60.0); Mean Corpuscular HGB Conc 34.4 g/dL (29.9-35.2); Mean Corpuscular Hemoglobin 30.6 pg (25.9-34.0); Mean Platelet Volume 10.1 fL (9.5-13.5); Monocytes Absolute Auto 0.4 10^3/uL (0.3-0.8); Monocytes Percent Auto 2.6 % (1.7-12.0); Neutrophils Absolute Auto 15.1 10^3/uL (1.4-6.5); Neutrophils Percent Auto 90.6 % (43.0-75.0); Platelet Count 389 10^3/uL (150-450); Red Blood Count 3.72 10^6/uL (4.70-6.10); Red Cell Distribution Width 14.1 % (11.0-15.0); White Blood Count 16.7 10^3/uL (4.0-11.0)
[2024-11-20 06:28] LABS: Alanine Aminotransferase 34 U/L (16-63); Albumin Globulin Ratio 0.9; Albumin Level 3.1 g/dL (3.4-5.0); Alkaline Phosphatase 82 U/L (46-116); Anion Gap 12.9; Aspartate Amino Transferase 29 U/L (15-37); BUN Creatinine Ratio 10.7; Bilirubin Total 0.3 mg/dL (0.2-1.0); Calcium 9.2 mg/dL (8.5-10.1); Carbon Dioxide 25.3 mmol/L (21.0-32.0); Chloride 100 mmol/L (98-107); Estimated GFR (African America >60 (>=60 mL/min/1.73m^2); Estimated GFR (Non-African Ame >60 (>=60 mL/min/1.73m^2); Globulin 3.3 g/dL; Glucose 129 mg/dL (74-106); Magnesium 1.8 mg/dL (1.8-2.4); Potassium 4.2 mmol/L (3.5-5.1); Sodium 134 mmol/L (136-145); Total Protein 6.4 g/dL (6.4-8.2)
--- NOTE | 2024-11-20 08:08 | P.PN_ITS ---
Progress Note: Subjective Subjective Interval history: Patient appears more comfortable today. Able to converse without shortness of breath and resting comfortably. He is currently down to his home oxygen which is 2-3L via [place]. No complaints or issues today. Exam Narrative Exam Narrative: General: Patient is alert, and oriented to person, place and time Skin: no visible rashes, or ulcers Head: atraumatic, acephalic Eyes: PERRLA, no nystagmus present, conjunctiva clear, no scleral icterus Ears: normal gross auditory acuity Neck: no masses palpated Heart: Normal rate and rhythm, no murmurs/rubs/gallops Lungs: no audible wheezes, crackles and normal breath sounds all lung parry Abdomen: Normal audible bowel sounds, no distension, No palpable masses, no organomegaly, no rebound/guarding/ or rigidity Musculoskeletal: muscle atrophy noted, ROM is limited due to being in hospital bed, no swelling bilateral lower extremities Neuro: CN II-X grossly intact Constitutional Vital Signs, click to edit/add: Last Vital Signs Temp 97.9 F 11/20/24 07:19 Pulse 83 11/20/24 07:10 Resp 20 11/20/24 07:10 BP 137/83 11/20/24 07:08 Pulse Ox 94 L 11/20/24 07:08 O2 Del Method Nasal Cannula 11/20/24 07:19 O2 Flow Rate 2 11/20/24 07:19 Progress Note: Objective Labs Labs: Short CBC 11/20/24 Range/Units 05:50 WBC 16.7 H (4.0-11.0) 10^3/uL Hgb 11.4 L (14.0-18.0) g/dL Hct 33.1 L (42.0-54.0) % Plt Count 389 (150-450) 10^3/uL BMP 11/20/24 05:50 Sodium 134 L Potassium 4.2 Chloride 100 Carbon Dioxide 25.3 BUN 12.0 Creatinine 1.12 Glucose 129 H Calcium 9.2 Liver Function 11/20/24 Range/Units 05:50 Total Bilirubin 0.3 (0.2-1.0) mg/dL AST 29 (15-37) U/L ALT 34 (16-63) U/L Alkaline Phosphatase 82 (46-116) U/L Albumin 3.1 L (3.4-5.0) g/dL Urine 11/19/24 Range/Units 10:15 Urine Color Yellow (YELLOW) Urine Clarity Clear (CLEAR) Urine pH 8.5 (5.0-9.0) Ur Specific [place] <=1.005 A (1.005-1.025) Urine Protein Trace (NEG/TRACE) mg/dL Urine Glucose (UA) Negative (NEGATIVE) mg/dL Progress Note: A&P Assessment and Plan (1) Community acquired bacterial pneumonia: Assessment and Plan: Continue Rocephin and Azith, blood cultures pending. IV solumedrol 40mg [id number], neb treatments, pulmicort and OPEP. CTA showed no evidence of PE, but airspace disease of the right lower lung to suggest pneumonia, and bronchial wall thickening to suggest bronchitis (2) Acute hypoxic respiratory failure: Assessment and Plan: secondary to #1, patient uses 3 L at home and was requiring 6L with hyperventilation RR 32 on admission, but this has improved and patient is back to baseline. (3) Hypertension: Assessment and Plan: continue losartan, metoprolol, spironolactone Qualifiers: Hypertension type: primary hypertension Qualified Code(s): I10 - Essential (primary) hypertension (4) Multiple sclerosis: Assessment and Plan: continue oxycodone, pregabalin, and baclofen (5) Chronic respiratory failure with hypoxia: Assessment and Plan: continue neb treatments (6) COPD (chronic obstructive pulmonary disease): Assessment and Plan: continue with nebs and IV steroids Qualifiers: COPD type: emphysema Emphysema type: panlobular Qualified Code(s): J43.1 - Panlobular emphysema (7) Depression with anxiety: Assessment and Plan: continue home meds, has received some IV Ativan which helped symptoms Plan Patient is a full code Lovenox for DVT prophylaxis Probable discharge home tomorrow Urinary Catheter Management Urinary Catheter Management Urethral: Cath placed during this visit: yes Urethral indwelling: No Insertion date: 11/19/24 Insertion time: 14:10
[2024-11-20] MEDS: ENOXAPARIN SODIUM 40 MG/0.4 ML SYRINGE SUBQ (08:46)
[2024-11-20] MEDS: METOPROLOL TARTRATE 50 MG TABLET 75 MG PO ×2 (08:46→20:04)
[2024-11-20] MEDS: LOSARTAN POTASSIUM 50 MG TABLET 100 MG PO (08:47)
[2024-11-20] MEDS: SPIRONOLACTONE 25 MG TABLET 50 MG PO (08:47)
[2024-11-20] MEDS: ARIPIPRAZOLE 5 MG TABLET PO (08:47)
[2024-11-20] MEDS: PANTOPRAZOLE SODIUM 40 MG TABLET.DR PO ×2 (08:47→20:07)
[2024-11-20] MEDS: DULOXETINE HCL 60 MG CAPSULE.DR 120 MG PO (08:47)
[2024-11-20] MEDS: SENNOSIDES 8.6 MG TABLET 17.2 MG PO (08:47)
[2024-11-20] MEDS: CLONAZEPAM 0.5 MG TABLET 1 MG PO ×2 (08:47→20:03)
--- OUTSIDE RECORDS SUMMARY | 2024-11-20 09:30 | XMS_ITS | CCD ---
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 Name Role Phone Tunde Das Admitting Unavailable Tunde Das Attending Unavailable Bubba Ghotra Primary Care Unavailable BUBBA GHOTRA Primary Care Physician [phone] Heri MURRELL Referring Unavailable Heri MURRELL Admitting [...] Consulting Unavailable LAMAR TURNER Attending Unavailable LAMAR TUNRER Admitting Unavailable YUELAMAR Consulting Unavailable HEMEYER ., DR PEREIRA Primary Care Unavailable BINHREBA Attending Unavailable BINH, REBA Admitting Unavailable BINH, REBA Consulting Unavailable HEMEYER ., DR PEREIRA Primary Care Unavailable LAKSHMIPATHY ., NARENDRANRAMIRO Attending Maureen vailable LAKSHMIPATHY ., NARENDRANATH Admitting Maureen vailable LAKSHMIPATHY ., NARENDRANATH Consulting Maureen vailable HEMEYER ., DR PERERIA Primary Care Unavailable BENEDICT, DR PORRAS Attending [...] Unavailable Bubba Ghotra MD Primary Care Provider [phone] Bubba Ghotra MD Unavailable [phone] Elaina Payton Unavailable Kenna Lockett RN Unavailable [phone] Maty Win MD Unavailable Bubba Ghotra MD [...] [paroxetine] Drug Allergy 4 Mild (qualifier value) [facility] (2 sources) PARoxetine Drug Allergy 3 [facility] (12 sources) venlafaxine Drug Allergy 3 Unknown [facility] (20 sources) venlafaxine Drug Allergy 3 Unknown Reaction [facility] (20 sources) PARoxetine Drug Allergy 2 Rash [...] procedure., # 14 tab(s), Refills(s) 0, Pharmacy: [id number], 178, cm, 10/14/21 12:57:00 EDT, Height/Length [...] Start: 08-06-2021 take 2 tablets by mo [facility] twice daily Trileptal 300 mg Tab 600 [...] Start: 08-06-2021 take 1 capsule by mo [facility] three times daily Lyrica 200 mg Cap 200 mg = 1 cap(s), Oral, TID, Refills(s) 0 Start Date: 08/06/21 Status: Ordered take 1 capsule by mo [facility] once daily at bedtime Pregabalin 200 MG [...] 120 Tablet; Provider: Ira Chaudhry sennosides, senior living 8.6 mg oral tablet (20 sources) Start: [...] minutes 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, 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 1 tablet 06/22/2024 08/30/2024 Discontinued (Therapy completed) Start: 10-14-2021 Valium 10 mg T ab 10 mg = 1 tab(s), Oral, Once, Take 1/2 hour prior to procedure, # 1 tab(s), Refills(s) 0, Pharmacy: [facility]/pharmacy #[id number], 178, cm, 10/14/21 12:57:00 EDT, Height/Length [...] 09-15-2023 Chronic Other aftercare (1 source) Other m[facility] (current) drug therapy; Translations: [OTH DOMINATRIX CURRENT DRUG THERAPY] Onset: 3 Episodic Other aftercare (10 sources) Seen by palliative care physician; Translations: [Encounter for palliative care] Episodic Other aftercare (1 source) Encounter for palliative care Episodic Other aftercare (6 sources) Long-term current use of drug therapy; Translations: [assisted (current) use of opiate analgesic] 09-10-2023 Episodic Other aftercare (1 source) assisted (current) use of opiate analgesic; Translations: [Long-term (current) use of other medications] 09-17-2023 Episodic Other aftercare (20 sources) Polypharmacy ; Translations: [Other technician terminal and repeater (current) drug therapy] Onset: 1 12-01-2022 Episodic [...] [Moles/Vol] 144 mmol/L 136 - 145 mmol/L [facility] ALL CBC WITH AUTO DIFFon BASOPHILS ABSOLUTE AUTO 0.1 [facility] Basophils/100 WBC (Bld) 1.9 % 0.2 - 2.0 % [facility] Eosinophils/100 WBC (Bld) 1.6 % 0.9 - 7.0 % [facility] Erythrocyte distribution width (RBC) [Ratio] 13.2 % 11.0 - 15.0 % [facility] Hematocrit (Bld) [Volume fraction] 41.1 % Low 42.0 - 54.0 % [facility] Hemoglobin (Bld) [Mass/Vol] 13.9 g/dL Low 14.0 - 18.0 g/dL [facility] IMMATURE GRANULOCYTES ABS AUTO 0.03 [facility] Immature granulocytes/100 WBC (Bld) 0.4 % 0.0 - 0.5 % [facility] Interpretation and review of laboratory results Abnormal [facility] LYMPHOCYTES ABSOLUTE AUTO 1.7 [facility] Lymphocytes/100 WBC (Bld) 22.8 % 20.5 - 60.0 % [facility] MCH (RBC) [Entitic mass] 29.8 pg 25.9 - 34.0 pg [facility] MCHC (RBC) [Mass/Vol] 33.8 g/dL 29.9 - 35.2 g/dL [facility] MCV (RBC) [Entitic vol] 88.2 fL 80.0 - 94.0 fL [facility] MONOCYTES ABSOLUTE AUTO 0.5 [facility] Monocytes/100 WBC (Bld) 6.2 % 1.7 - 12.0 % [facility] NEUTROPHILS ABSOLUTE AUTO 5.0 [facility] Neutrophils/100 WBC (Bld) 67.1 % 43.0 - 75.0 % [facility] Platelet mean volume (Bld) [Entitic vol] 9.3 fL Low 9.5 - 13.5 fL [facility] TBH EO # 0.1 [facility] PLT 382 [facility] RBC 4.66 Low [facility] WBC 7.4 [facility] AMYLASEon 11-13-2022 Amylase [Catalytic activity/Vol] 37 U/L Normal 25-115 [facility] Comment on above: Performed By: #### A MY, CMP, LIPA ####[facility] [address] [address]Dr. Cortez Younger CBC AUTO DIFFon 11-13-2022 BASO # 0.1 103/ul Normal 0.0-0.1 [facility] Comment on above: Performed By: #### C BC #### [facility] [address] [address] [address] Cortez Younger Basophils/100 WBC (Bld) 1.3 % Normal 0.2-2.0 [facility] Comment on above: Performed By: #### C BC #### [facility] [address] [address] [address] Cortez Younger EO # 0.1 103/ul Normal 0.0-0.7 [facility] Comment on above: Performed By: #### C BC #### [facility] [address] [address] [address] Cortez Younger Eosinophils/100 WBC (Bld) 0.9 % Normal 0.9-7.0 [facility] Comment on above: Performed By: #### C BC #### [facility] [address] [address] [address] Cortez Younger Erythrocyte distribution width (RBC) [Ratio] 12.5 % Normal 11.0-15.0 [facility] Comment on above: Performed By: #### C BC #### [facility] [address] [place] [address] Dr. Cortez Younger Hematocrit (Bld) [Volume fraction] 42.3 % Normal 42.0-54.0 [facility] Comment on above: Performed By: #### C BC #### [facility] [address] [place] [address] Dr. Cortez Younger Hemoglobin (Bld) [Mass/Vol] 15.1 g/dL Normal 14.0-18.0 [facility] Comment on above: Performed By: #### C BC #### [facility] [address] [place] [address] Dr. Cortez Younger IG # 0.04 10e3/ul Critically high 0.00-0.03 [facility] Comment on above: Performed By: #### C BC #### [facility] [address] [place] [address] Dr. Cortez Younger IG % 0.6 % Critically high 0.0-0.5 [facility] Comment on above: Performed By: #### C BC #### [facility] [address] [place] [address] Dr. Cortez Younger LYMPH # 1.4 103/ul Normal 1.2-3.8 [facility] Comment on above: Performed By: #### C BC #### [facility] [address] [place] [address] Dr. Cortez Younger Lymphocytes/100 WBC (Bld) 20.7 % Normal 20.5-60.0 [facility] Comment on above: Performed By: #### C BC #### [facility] [address] [place] [address] Dr. Cortez Younger MANUAL DIFF REQ NO Normal [facility] Comment on above: Performed By: #### C BC #### [facility] [address] [place] [address] Dr. Cortez Younger MCH (RBC) [Entitic mass] 31.6 pg Normal 25.9-34.0 [facility] Comment on above: Performed By: #### C BC #### [facility] [address] [place] [address] Dr. Cortez Younger MCHC (RBC) [Mass/Vol] 35.7 g/dL Critically high 29.9-35.2 [facility] Comment on above: Performed By: #### C BC #### [facility] [address] [place] [address] Dr. Cortez Younger MCV (RBC) [Entitic vol] 88.5 fL Normal 80.0-94.0 [facility] Comment on above: Performed By: #### C BC #### [facility] [address] [place] [address] Dr. Cortez Younger MONO # 0.5 103/ul Normal 0.3-0.8 [facility] Comment on above: Performed By: #### C BC #### [facility] [address] [place] [address] Dr. Cortez Younger Monocytes/100 WBC (Bld) 7.7 % Normal 1.7-12.0 [facility] Comment on above: Performed By: #### C BC #### [facility] [address] [place] [address] Dr. Cortez Younger NEUT # 4.8 103/ul Normal 1.4-6.5 [facility] Comment on above: Performed By: #### C BC #### [facility] [address] [place] [address] Dr. Cortez Younger Neutrophils/100 WBC (Bld) 68.8 % Normal 43.0-75.0 [facility] Comment on above: Performed By: #### C BC #### [facility] [address] [place] [address] Dr. Cortez Younger Platelet mean volume (Bld) [Entitic vol] 9.0 fL Critically low 9.5-13.5 [facility] Comment on above: Performed By: #### C BC #### [facility] [address] [place] [address] Dr. Cortez Younger PLT 384 103/ul Normal 150-450 [facility] Comment on above: Performed By: #### C BC #### [facility] [address] [place] [address] Dr. Cortez Younger RBC 4.78 106/ul Normal 4.70-6.10 [facility] Comment on above: Performed By: #### C BC #### [facility] [address] [address] [address] Cortez Younger WBC 7.0 103/ul Normal 4.0-11.0 [facility] Comment on above: Performed By: #### C BC #### [facility] [address] [address] [address] Cortez Younger ER URINE PROFILEon 3 Bilirubin Ql (U) Negative Normal NEGATIVE [facility] Comment on above: Performed By: #### E RUR ####[facility] [address] [place], [place] [address]Dr. Cortez Younger Clarity (U) CLEAR Normal CLEAR [facility] Comment on above: Performed By: #### E RUR ####[facility] [address] [place], [place] [address]Dr. Cortez Younger Color (U) LT. YELLOW Normal YELLOW [facility] Comment on above: Performed By: #### E RUR ####[facility] [address] [place], [place] [address]Dr. Cortez Younger ERUAHD A micrscopic examina tion will be performed if indicated. Normal [facility] Comment on above: Performed By: #### E RUR ####[facility] [address] [place] [address]Dr. Cortez Younger Glucose Ql (U) Negative Normal NEGATIVE [facility] Comment on above: Performed By: #### E RUR ####[facility] [address] [place], [place] [address]Dr. Cortez Younger Hemoglobin Ql (U) Negative Normal NEGATIVE [facility] Comment on above: Performed By: #### E RUR ####[facility] [address] [address]Dr. Cortez Younger Ketones Ql (U) Negative Normal NEGATIVE [facility] Comment on above: Performed By: #### E RUR ####[facility] [address] [address]Dr. Cortez Younger LEUKOCYTES Negative Normal NEGATIVE [facility] Comment on above: Performed By: #### E RUR ####[facility] [address] [address]Dr. Cortez Younger Nitrite Ql (U) Negative Normal NEGATIVE [facility] Comment on above: Performed By: #### E RUR ####[facility] [address] [place], [place] [address]Dr. Cortez Younger pH (U) 7.5 [pH] Normal 5-9 [facility] Comment on above: Performed By: #### E RUR ####[facility] [address] [place], [place] [address]Dr. Cortez Younger SPEC GRAVITY <=1.005 Abnormal 1.005-<=1.025 [facility] Comment on above: Performed By: #### E RUR ####[facility] [address] [place], [place] [address]Dr. Cortez Younger UA PROTEIN Negative Normal NEGATIVE/ TRACE [facility] Comment on above: Performed By: #### E RUR ####[facility] [address] [place], [place] [address]Dr. Cortez Younger UR MICRO IND NOT INDICATED Normal [facility] Comment on above: Performed By: #### E RUR ####[facility] [address] [place], [place] [address]Dr. Cortez Younger Urobilinogen Qn (U) 0.2 {Fidelia'U}/dL Normal 0.2 - 1.0 [facility] Comment on above: Performed By: #### E RUR ####[facility] [address] [place], [place] [address]Dr. Cortez Younger LIPASEon 11-13-2022 Lipase [Catalytic activity/Vol] 111.0 U/L Normal 73.0-393.0 [facility] Comment on above: Performed By: #### A MY, CMP, LIPA ####[facility] [address] [place] [address]Dr. Cortez Younger PROF 14(COMP METB)on 023 Albumin [Mass/Vol] 3.9 g/dL Normal 3.4-5.0 [facility] Comment on above: Performed By: #### A MY, CMP, LIPA ####[facility] [address] [place] [address]Dr. Cortez Younger Albumin/Globulin [Mass ratio] 1.4 {ratio} Normal [facility] Comment on above: Performed By: #### A MY, CMP, LIPA ####[facility] [address] [place] [address]Dr. Cortez Younger ALP [Catalytic activity/Vol] 70 U/L Normal 46-116 [facility] Comment on above: Performed By: #### A MY, CMP, LIPA ####[facility] [address] [address]Dr. Cortez Younger ALT [Catalytic activity/Vol] 24 U/L Normal 16-63 [facility] Comment on above: Performed By: #### A MY, CMP, LIPA ####[facility] [address] [place] [address]Dr. Cortez Younger Anion gap [Moles/Vol] 9.8 mmol/L Normal [facility] Comment on above: Performed By: #### A MY, CMP, LIPA ####[facility] [address] [place] [address]Dr. Cortez Younger AST [Catalytic activity/Vol] 12 U/L Critically low 15-37 [facility] Comment on above: Performed By: #### A MY, CMP, LIPA ####[facility] [address] [address]Dr. Cortez Younger Bilirubin [Mass/Vol] 0.3 mg/dL Normal 0.2-1.0 [facility] Comment on above: Performed By: #### A MY, CMP, LIPA ####[facility] [address] [place] [address]Dr. Cortez Younger Calcium [Mass/Vol] 9.2 mg/dL Normal 8.5-10.1 [facility] Comment on above: Performed By: #### A MY, CMP, LIPA ####[facility] [address] [place] [address]Dr. Cortez Younger Chloride [Moles/Vol] 98 mmol/L Normal 98-107 [facility] Comment on above: Performed By: #### A MY, CMP, LIPA ####[facility] [address] [place], [place] [address]Dr. Cortez Younger CO2 [Moles/Vol] 28.7 mmol/L Normal 21.0-32.[address] [facility] Comment on above: Performed By: #### A MY, CMP, LIPA ####[facility] [address] [place], [place] [address]Dr. Cortez Younger Creatinine [Mass/Vol] 0.88 mg/dL Normal 0.70-1.30 [facility] Comment on above: Performed By: #### A MY, CMP, LIPA ####[facility] [address] [place], [place] [address]Dr. Cortez Younger EGFR-AF COLOMBIAN >60 Normal >=[address] [facility] Comment on above: Performed By: #### A MY, CMP, LIPA ####[facility] [address] [place], [place] [address]Dr. Cortez Younger EGFR-NON AF COLOMBIAN >60 Normal >=60 [facility] Comment on above: Performed By: #### A MY, CMP, LIPA ####[facility] [address] [place], [place] [address]Dr. Cortez Younger Globulin (S) [Mass/Vol] 2.7 g/dL Normal [facility] Comment on above: Performed By: #### A MY, CMP, LIPA ####[facility] [address] [place], [place] [address]Dr. Cortez Younger Glucose [Mass/Vol] 105 mg/dL Normal 74-106 [facility] Comment on above: Performed By: #### A MY, CMP, LIPA ####[facility] [address] [place] [address]Dr. Cortez Younger Potassium [Moles/Vol] 3.5 mmol/L Normal 3.5-5.1 [facility] Comment on above: Performed By: #### A MY, CMP, LIPA ####[facility] [address] [place] [address]Dr. Cortez Younger Protein [Mass/Vol] 6.6 g/dL Normal 6.4-8.2 [facility] Comment on above: Performed By: #### A MY, CMP, LIPA ####[facility] [address] [place] [address]Dr. Cortez Younger Sodium [Moles/Vol] 133 mmol/L Critically low 136-145 [facility] Comment on above: Performed By: #### A MY, CMP, LIPA ####[facility] [address] [place] [address]Dr. Cortez Younger Urea nitrogen [Mass/Vol] 4.0 mg/dL Critically low 7.0-18.0 [facility] Comment on above: Performed By: #### A MY, CMP, LIPA ####[facility] [address] [place] [address]Dr. Cortez Younger Urea nitrogen/Creatinin e [Mass ratio] 4.5 mg/mg Normal [facility] Comment on above: Performed By: #### A MY, CMP, LIPA ####[facility] [address] [place] [address]Dr. Cortez Younger XR ABD FLAT UP_PA Farideh [...] CRENSHAW Date: 2022-11-13 13:22 Normal [facility] FREE T4on 10-31-2022 Free T4 [Mass/Vol] 1.03 ng/dL Normal 0.76-1.46 [facility] Comment on above: Performed By: #### E RUR #### [facility] [address] [place] [address] Dr. Cortez Younger LIPID PROFILEon 10-31-2022 CHOL-HDL RATIO NORM SEE BELOW Normal [facility] Comment on above: Result Comment: 3.3 - 4.4 LOW RISK 4.4 - 7.1 AVERAGE RISK 7.1 - 11.0 MODERATE RISK >11.0 HIGH RISK Performed By: #### E RUR #### [facility] [address] [place] [address] Dr. Cortez Younger Cholesterol [Mass/Vol] 165 mg/dL Normal <=200 [facility] Comment on above: Performed By: #### E RUR #### [facility] [address] [place] [address] Dr. Cortez Younger Cholesterol in HDL [Mass/Vol] 59 mg/dL Normal 40-60 [facility] Comment on above: Performed By: #### E RUR #### [facility] [address] [place] [address] Dr. Cortez Younger Cholesterol in LDL [Mass/Vol] 83.8 mg/dL Normal [facility] Comment on above: Performed By: #### E RUR #### [facility] [address] [place] [address] Dr. Cortez Younger Cholesterol.total/ Cholesterol in HDL [Mass ratio] 2.8 {ratio} Normal [facility] Comment on above: Performed By: #### E RUR #### [facility] [address] [place] [address] Dr. Cortez Younger HDL NORMAL > or = 60 mg/dl - LO W CARDIOVASCULAR RISK <40 mg/dl - HIGH CARDIOVASCULAR RISK Normal [facility] Comment on above: Performed By: #### E RUR #### [facility] [address] [place] [address] Dr. Cortez Younger LDL CALC NORMAL SEE BELOW Normal [facility] Comment on above: Result Comment: <100 mg/dl OPTIMAL 100 - 129 mg/dl NEAR OR ABOVE OPTIMAL 130 - 159 mg/dl BORDERLINE HIGH 160 - 189 mg/dl HIGH >190 mg/dl VERY HIGH Performed By: #### E RUR #### [facility] [address] [place], [place] [address] Dr. Cortez Younger Triglyceride [Mass/Vol] 111 mg/dL Normal <=150 [facility] Comment on above: Performed By: #### E RUR #### [facility] [address] [place], [place] [address] Dr. Cortez Younger VLDL CALC 22.2 mg/dL Normal [facility] Comment on above: Performed By: #### E RUR #### [facility] [address] [place], [place] [address] Dr. Cortez Younger MRI BRAIN WO W [...] VERN LU Date: 2022-10-31 13:12 Normal [facility] PROF 14(COMP METB)on 023 Albumin [Mass/Vol] 4.0 g/dL Normal 3.4-5.0 [facility] Comment on above: Performed By: #### C MP ####[facility] [address] [place] [address]Dr. Cortez oYunger Albumin/Globulin [Mass ratio] 1.3 {ratio} Normal [facility] Comment on above: Performed By: #### C MP ####[facility] [address] [place] [address]Dr. Cortez Younger ALP [Catalytic activity/Vol] 66 U/L Normal 46-116 [facility] Comment on above: Performed By: #### C MP ####[facility] [address] [place] [address]Dr. Cortez Younger ALT [Catalytic activity/Vol] 21 U/L Normal 16-63 [facility] Comment on above: Performed By: #### C MP ####[facility] [address] [place], [place] [address]Dr. Eleanorvalerie Younger Anion gap [Moles/Vol] 9.4 mmol/L Normal [facility] Comment on above: Performed By: #### C MP ####[facility] [address] [place], [place] [address]Dr. Cortez Younger AST [Catalytic activity/Vol] 10 U/L Critically low 15-37 [facility] Comment on above: Performed By: #### C MP ####[facility] [address] [place] [address]Dr. Cortez Younger Bilirubin [Mass/Vol] 0.4 mg/dL Normal 0.2-1.0 [facility] Comment on above: Performed By: #### C MP ####[facility] [address] [place] [address]Dr. Cortez Younger Calcium [Mass/Vol] 9.1 mg/dL Normal 8.5-10.1 [facility] Comment on above: Performed By: #### C MP ####[facility] [address] [place] [address]Dr. Cortez Younger Chloride [Moles/Vol] 98 mmol/L Normal 98-107 [facility] Comment on above: Performed By: #### C MP ####[facility] [address] [place] [address]Dr. Cortez Younger CO2 [Moles/Vol] 29.8 mmol/L Normal 21.0-32.[address] [facility] Comment on above: Performed By: #### C MP ####[facility] [address] [place], [place] [address]Dr. Cortez Younger Creatinine [Mass/Vol] 0.89 mg/dL Normal 0.70-1.30 [facility] Comment on above: Performed By: #### C MP ####[facility] [address] [place], [place] [address]Dr. Cortez Aren EGFR-AF COLOMBIAN >60 Normal >=[address] [facility] Comment on above: Performed By: #### C MP ####[facility] [address] [place], [place] [address]Dr. Cortez Aren EGFR-NON AF COLOMBIAN >60 Normal >=60 [facility] Comment on above: Performed By: #### C MP ####[facility] [address] [place], [place] [address]Dr. Cortez Aren Globulin (S) [Mass/Vol] 3.1 g/dL Normal [facility] Comment on above: Performed By: #### C MP ####[facility] Mediunej[address] [place], [place] [address]Dr. Cortez Aren Glucose [Mass/Vol] 109 mg/dL Critically high 74-106 T [facility] Comment on above: Performed By: #### C MP ####[facility] V[address]udd[address] [place], [place] [address]Dr. Eleanorvalerie Aren Potassium [Moles/Vol] 4.2 mmol/L Normal 3.5-5.1 [facility] Comment on above: Performed By: #### C MP ####[facility] [address] [place], [place] [address]Dr. Cortez Younger Protein [Mass/Vol] 7.1 g/dL Normal 6.4-8.2 [facility] Comment on above: Performed By: #### C MP ####[facility] [address] [place] [address]Dr. Cortez Younger Sodium [Moles/Vol] 133 mmol/L Critically low 136-145 Th [facility] Comment on above: Performed By: #### C MP ####[facility] [address] [place] [address]Dr. Cortez Younger Urea nitrogen [Mass/Vol] 7.0 mg/dL Normal 7.0-18.0 [facility] Comment on above: Performed By: #### C MP ####[facility] [address] [place] [address]Dr. Cortez Younger Urea nitrogen/Creatinin e [Mass ratio] 7.9 mg/mg Normal [facility] Comment on above: Performed By: #### C MP ####[facility] [address] [place] [address]Dr. Cortez Younger TSHon 10-31-2022 TSH 1.574 uIU/mL Normal 0.358-3.740 [facility] Comment on above: Performed By: #### T SH #### [facility] [address] [place] [address] Dr. Cortez Younger COMPLIANCE DRUG SCREENon PDF . Normal [facility] Comment on above: Performed By: #### E RUR #### [facility] [address] [place] [address] Dr. Cortez Younger Summary FINAL Normal [facility] Comment on above: Result Comment: = [...] test is not intended to distinguish between xdmaw-7-hohfyrisomnqwlztnilt, the predominant form of THC in most herbal or marijuana-based products, and uxium-2-myewlsmypsuetkxogjvy. Norhydrocodone 1620 ng/mg creat Norhydrocodone is an [...] = Performed By: #### E RUR #### [facility] [address] [place] [address] Dr. Cortez Younger HYDROCODONE AND METABOLITE, URINEon 10-24-2022 Hydrocodone 55 ng/mL Normal [facility] Comment on above: Performed By: #### E RUR #### [facility] [address] [place] [address] Dr. Cortez Younger Hydromorphone Negative Normal [facility] Comment on above: Result Comment: This test was developed and its performance characteristics determined by [employer]. It has not been cleared or approved by the Food and Drug Administration. Performed By: #### E RUR #### [facility] [address] [place] [address] Dr. Cortez Younger OSMOLALITYon 10-20-2022 Osmolality QNSREP Normal [facility] Comment on above: Result Comment: Spec imen quantity insufficient for verification by repeat analysis. contacted Lynda at your facility on 10-20-2022 Performed By: #### C BC #### [facility] [address] [place] [address] Dr. Cortez Younger OSMOLALITY URINEon Osmolality, Urine 119 mOsmol/kg Normal [facility] Comment on above: Result Comment: 24 h r : 300 - 900 Random: 50 - 1400 After 12hr fluid restriction: >850 Performed By: #### O SMOU ####[facility] [address] [place] [address]Dr. Cortez Younger CBC AUTO DIFFon 10-16-2022 BASO # 0.0 103/ul Normal 0.0-0.1 [facility] Comment on above: Performed By: #### C BC ####[facility] R[address]fbxkffjf[address] [id number]. Cortez Younger Basophils/100 WBC (Bld) 0.3 % Normal 0.2-2.0 [facility] Comment on above: Performed By: #### C BC ####[facility] O[address]av[address] [place] [address]Dr. Cortez Younger EO # 0.0 103/ul Normal 0.0-0.7 [facility] Comment on above: Performed By: #### C BC ####[facility] V[address]of[address] [place], [place] [address]Dr. Cortez Younger Eosinophils/100 WBC (Bld) 0.2 % Critically low 0.9-7.0 [facility] Comment on above: Performed By: #### C BC ####[facility] Ds[address]frfrq[address] [place], [place] [address]Dr. Cortez Younger Erythrocyte distribution width (RBC) [Ratio] 12.1 % Normal 11.0-15.0 [facility] Comment on above: Performed By: #### C BC ####[facility] [address]ux[address] [place], [place] [address]Dr. Cortez Younger Hematocrit (Bld) [Volume fraction] 45.9 % Normal 42.0-54.0 [facility] Comment on above: Performed By: #### C BC ####[facility] [address] [place], [place] [address]Dr. Cortez Younger Hemoglobin (Bld) [Mass/Vol] 16.7 g/dL Normal 14.0-18.0 [facility] Comment on above: Performed By: #### C BC ####[facility] [address] [place], [place] [address]Dr. Cortez Younger IG # 0.06 10e3/ul Critically high 0.00-0.03 [facility] Comment on above: Performed By: #### C BC ####[facility] X[address] [place], [place] [address]Dr. Cortez Younger IG % 0.5 % Normal 0.0-0.5 [facility] Comment on above: Performed By: #### C BC ####[facility] [address] [place] [id number] Younger LYMPH # 1.5 103/ul Normal 1.2-3.8 [facility] Comment on above: Performed By: #### C BC ####[facility] [address]vssu[address] [place] [id number]. Cortez Younger Lymphocytes/100 WBC (Bld) 13.5 % Critically low 20.5-60.0 [facility] Comment on above: Performed By: #### C BC ####[facility] [address] [place] [address]DrFish Younger MANUAL DIFF REQ NO Normal [facility] Comment on above: Performed By: #### C BC ####[facility] [address] [place] [id number] Younger MCH (RBC) [Entitic mass] 31.2 pg Normal 25.9-34.0 [facility] Comment on above: Performed By: #### C BC ####[facility] Z[address]jcigq[address] [place] [id number]. Cortez Younger MCHC (RBC) [Mass/Vol] 36.4 g/dL Critically high 29.9-35.2 [facility] Comment on above: Performed By: #### C BC ####[facility] [address]sg[address]zzfm[address] [place] [id number] Younger MCV (RBC) [Entitic vol] 85.6 fL Normal 80.0-94.0 [facility] Comment on above: Performed By: #### C BC ####[facility] [address]nlg[address]xk[address] [place] [id number] Younger MONO # 0.6 103/ul Normal 0.3-0.8 [facility] Comment on above: Performed By: #### C BC ####[facility] [address]jehvo[address] [place] [id number] Younger Monocytes/100 WBC (Bld) 5.4 % Normal 1.7-12.0 [facility] Comment on above: Performed By: #### C BC ####[facility] Cdhamrcovn[address] [place] [address]Dr. Cortez Younger NEUT # 8.9 103/ul Critically high 1.4-6.5 [facility] Comment on above: Performed By: #### C BC ####[facility] Riizwpknmu[address] [place] [address]Dr. Cortez Younger Neutrophils/100 WBC (Bld) 80.1 % Critically high 43.0-75.0 [facility] Comment on above: Performed By: #### C BC ####[facility] Xttssgkibs[address] [place] [id number]. Cortez oYunger Platelet mean volume (Bld) [Entitic vol] 9.7 fL Normal 9.5-13.5 [facility] Comment on above: Performed By: #### C BC ####[facility] [address] [place] [id number]. Cortez Younger PLT 364 103/ul Normal 150-450 [facility] Comment on above: Performed By: #### C BC ####[facility] Aw[address]dwgh[address] [place] [id number]. Cortez Younger RBC 5.36 106/ul Normal 4.70-6.10 [facility] Comment on above: Performed By: #### C BC ####[facility] Sktrumusaz[address] [place] [address]Dr. Cortez Younger WBC 11.1 103/ul Critically high 4.0-11.[address] [facility] Comment on above: Performed By: #### C BC ####[facility] D[address]uiyk[address] [place] [id number]. Cortez Younger Covid-19 PCR ([facility])on SARS-CoV-2 (COVID-19) RNA AXEL+probe Ql (Unsp spec) Not detected Normal NOT DETECTED [facility] Comment on above: Result [...] for this test is supported by the [employer] and Human Service's declaration that [...] be used). Performed By: #### C VDTBH ####[facility] [address] [place] [address]Dr. Cortez Younger DRUG SCREEN RAPID (URINE)on 10-16-2022 AMP Negative Normal NEGATIVE [facility] Comment on above: Performed By: #### C BC #### [facility] [address] [place] [address] Dr. Cortez Younger BAR Positive Abnormal NEGATIVE [facility] Comment on above: Performed By: #### C BC #### [facility] [address] [place] [address] Dr. Cortez Younger BUP Negative Normal NEGATIVE [facility] Comment on above: Performed By: #### C BC #### [facility] [address] [place] [address] Dr. Cotrez Younger BZO Positive Abnormal NEGATIVE [facility] Comment on above: Performed By: #### C BC #### [facility] [address] [place] [address] Dr. Cortez Younger OK Negative Normal NEGATIVE [facility] Comment on above: Performed By: #### C BC #### [facility] [address] [place] [address] Dr. Cortez Younger CUT-OFFS SEE BELOW Normal [facility] Comment on above: Result Comment: AMP [...] ng/mL Performed By: #### C BC #### [facility] [address] [place] [address] Dr. Cortez Younger DRUG CUT HEADER DRUG CLASS TEST SYST EM CUT-OFF CONCENTRATIONS ARE FOLLOWS: Normal [facility] Comment on above: Performed By: #### C BC #### [facility] [address] [place] [address] Dr. Cortez Younger mAMP Negative Normal NEGATIVE [facility] Comment on above: Performed By: #### C BC #### [facility] [address] [place] [address] Dr. Cortez Younger MTD Negative Normal NEGATIVE [facility] Comment on above: Performed By: #### C BC #### [facility] [address] [place] [address] Dr. Cortez Younger OPI Positive Abnormal NEGATIVE [facility] Comment on above: Performed By: #### C BC #### [facility] [address] [place] [address] Dr. Cortez Younger OXY Negative Normal NEGATIVE [facility] Comment on above: Performed By: #### C BC #### [facility] [address] [place] [address] Dr. Cortez Younger PCP Negative Normal NEGATIVE [facility] Comment on above: Performed By: #### C BC #### [facility] [address] [place] [address] Dr. Cortez Younger PPX Negative Normal NEGATIVE [facility] Comment on above: Performed By: #### C BC #### [facility] [address] [place] [address] Dr. Cortez Younger TCA Negative Normal NEGATIVE [facility] Comment on above: Performed By: #### C BC #### [facility] [address] [address] [address] Cortez Younger THC Positive Abnormal NEGATIVE [facility] Comment on above: Performed By: #### C BC #### [facility] [address] [place] [address] Dr. Cortez Younger ER URINE PROFILEon 3 Bilirubin Ql (U) Negative Normal NEGATIVE [facility] Comment on above: Performed By: #### C BC #### [facility] [address] [place] [address] Dr. Cortez Younger Clarity (U) CLEAR Normal CLEAR [facility] Comment on above: Performed By: #### C BC #### [facility] [address] [place] [address] Dr. Cortez Younger Color (U) LT. YELLOW Normal YELLOW [facility] Comment on above: Performed By: #### C BC #### [facility] [address] [place] [address] Dr. Cortez Younger ERUAHD A micrscopic examina tion will be performed if indicated. Normal [facility] Comment on above: Performed By: #### C BC #### [facility] [address] [place] [address] Dr. Cortez Younger Glucose Ql (U) Negative Normal NEGATIVE [facility] Comment on above: Performed By: #### C BC #### [facility] [address] [place] [address] Dr. Cortez Younger Hemoglobin Ql (U) Negative Normal NEGATIVE [facility] Comment on above: Performed By: #### C BC #### [facility] [address] [place] [address] Dr. Cortez Younger Ketones Ql (U) Negative Normal NEGATIVE [facility] Comment on above: Performed By: #### C BC #### [facility] [address] [place] [address] Dr. Cortez Younger LEUKOCYTES Negative Normal NEGATIVE [facility] Comment on above: Performed By: #### C BC #### [facility] [address] [place], [place] [id number] Dr. Cortez Younger Nitrite Ql (U) Negative Normal NEGATIVE [facility] Comment on above: Performed By: #### C BC #### [facility] [address] [place] [address] Dr. Cortez Younger pH (U) 7.5 [pH] Normal 5-9 [facility] Comment on above: Performed By: #### C BC #### [facility] [address] [place] [address] Dr. Cortez Younger SPEC GRAVITY <=1.005 Abnormal 1.005-<=1.025 [facility] Comment on above: Performed By: #### C BC #### [facility] [address] [place] [address] Dr. Cortez Younger UA PROTEIN Negative Normal NEGATIVE/ TRACE [facility] Comment on above: Performed By: #### C BC #### [facility] [address] [place] [address] Dr. Cortez Younger UR MICRO IND NOT INDICATED Normal [facility] Comment on above: Performed By: #### C BC #### [facility] [address] [place] [address] Dr. Cortez Younger Urobilinogen Qn (U) 0.2 {Fidelia'U}/dL Normal 0.2 - 1.0 [facility] Comment on above: Performed By: #### C BC #### [facility] [address] [place] [address] Dr. Cortez Younger NAon 10-16-2022 Sodium [Moles/Vol] 125 mmol/L Critically low 136-145 Th [facility] Comment on above: Performed By: #### E RUR #### [facility] [address] [place] [address] Dr. Cortez Younger POTASSIUM URINEon 10-16-2022 UR POTASSIUM 11.8 mmol/L Normal [facility] Comment on above: Performed By: #### K U ####[facility] [address] [place] [address]Dr. Cortez Younger PROF 14(COMP METB)on 04-06-2 023 Albumin [Mass/Vol] 4.2 g/dL Normal 3.4-5.0 [facility] Comment on above: Performed By: #### E RUR #### [facility] [address] [place] [address] Dr. Cortez Younger Albumin/Globulin [Mass ratio] 1.3 {ratio} Normal [facility] Comment on above: Performed By: #### E RUR #### [facility] [address] [place] [address] Dr. Cortez Younger ALP [Catalytic activity/Vol] 75 U/L Normal 46-116 [facility] Comment on above: Performed By: #### E RUR #### [facility] [address] [place] [address] Dr. Cortez Younger ALT [Catalytic activity/Vol] 23 U/L Normal 16-63 [facility] Comment on above: Performed By: #### E RUR #### [facility] [address] [place] [address] Dr. Cortez Younger Anion gap [Moles/Vol] 9.7 mmol/L Normal [facility] Comment on above: Performed By: #### E RUR #### [facility] [address] [place] [address] Dr. Cortez Younger AST [Catalytic activity/Vol] 16 U/L Normal 15-37 [facility] Comment on above: Performed By: #### E RUR #### [facility] [address] [place] [address] Dr. Cortez Younger Bilirubin [Mass/Vol] 0.4 mg/dL Normal 0.2-1.0 [facility] Comment on above: Performed By: #### E RUR #### [facility] [address] [place] [address] Dr. Cortez Younger Calcium [Mass/Vol] 9.1 mg/dL Normal 8.5-10.1 [facility] Comment on above: Performed By: #### E RUR #### [facility] [address] [place] [address] Dr. Cortez Younger Chloride [Moles/Vol] 88 mmol/L Critically low 98-107 [facility] Comment on above: Performed By: #### E RUR #### [facility] [address] [address] [address] Cortez Younger CO2 [Moles/Vol] 26.5 mmol/L Normal 21.0-32.0 [facility] Comment on above: Performed By: #### E RUR #### [facility] [address] [address] [address] Cortez Younger Creatinine [Mass/Vol] 0.73 mg/dL Normal 0.70-1.30 [facility] Comment on above: Performed By: #### E RUR #### [facility] [address] [address] [address] Cortez Younger EGFR-AF COLOMBIAN >60 Normal >=60 [facility] Comment on above: Performed By: #### E RUR #### [facility] [address] [place] [address] Dr. Cortez Younger EGFR-NON AF COLOMBIAN >60 Normal >=60 [facility] Comment on above: Performed By: #### E RUR #### [facility] [address] [address] [address] Cortez Younger Globulin (S) [Mass/Vol] 3.2 g/dL Normal [facility] Comment on above: Performed By: #### E RUR #### [facility] [address] [place] [address] Dr. Cortez Younger Glucose [Mass/Vol] 109 mg/dL Critically high 74-106 [facility] Comment on above: Performed By: #### E RUR #### [facility] [address] [address] [address] Cortez Younger Potassium [Moles/Vol] 4.2 mmol/L Normal 3.5-5.1 [facility] Comment on above: Performed By: #### E RUR #### [facility] [address] [address] [address] Cortez Younger Protein [Mass/Vol] 7.4 g/dL Normal 6.4-8.2 [facility] Comment on above: Performed By: #### E RUR #### [facility] [address] [address] [address] Cortez Younger Sodium [Moles/Vol] 120 mmol/L Critically low 136-145 Th [facility] Comment on above: Performed By: #### E RUR #### [facility] [address] [address] [address] Cortez Younger Urea nitrogen [Mass/Vol] 7.0 mg/dL Normal 7.0-18.0 [facility] Comment on above: Performed By: #### E RUR #### [facility] [address] [address] [address] Cortez Younger Urea nitrogen/Creatinin e [Mass ratio] 9.6 mg/mg Normal [facility] Comment on above: Performed By: #### E RUR #### [facility] [address] [address] [address] Cortez Younger SODIUM RANDOM URINEon 2022 Sodium (U) [Moles/Vol] 26 mmol/L Critically low 30-90 [facility] Comment on above: Performed By: #### N AU ####[facility] [address] [place] [address]Dr. Cortez Younger ACETONE SERUMon 10-07-2022 ACETONE Negative Normal NEGATIVE [facility] Comment on above: Performed By: #### E RUR #### [facility] [address] [address] [address] Cortez Younger CBC AUTO DIFFon 10-07-2022 BASO # 0.1 103/ul Normal 0.0-0.1 [facility] Comment on above: Performed By: #### C BC ####[facility] [address] [place] [address]Dr. Cortez Younger Basophils/100 WBC (Bld) 0.8 % Normal 0.2-2.0 [facility] Comment on above: Performed By: #### C BC ####[facility] [address] [place] [id number]. Cortez Younger EO # 0.0 103/ul Normal 0.0-0.7 [facility] Comment on above: Performed By: #### C BC ####[facility] [address] [place] [address]Dr. Cortez Younger Eosinophils/100 WBC (Bld) 0.2 % Critically low 0.9-7.0 [facility] Comment on above: Performed By: #### C BC ####[facility] [address] [place], [place] [address]Dr. Cortez Younger Erythrocyte distribution width (RBC) [Ratio] 12.1 % Normal 11.0-15.0 [facility] Comment on above: Performed By: #### C BC ####[facility] [address] [place], [place] [address]Dr. Cortez Younger Hematocrit (Bld) [Volume fraction] 42.9 % Normal 42.0-54.0 [facility] Comment on above: Performed By: #### C BC ####[facility] [address] [place], [place] [address]Dr. Cortez Younger Hemoglobin (Bld) [Mass/Vol] 15.4 g/dL Normal 14.0-18.0 [facility] Comment on above: Performed By: #### C BC ####[facility] [address] [place], [place] [address]Dr. Cortez Younegr IG # 0.04 10e3/ul Critically high 0.00-0.03 [facility] Comment on above: Performed By: #### C BC ####[facility] [address] [place], [place] [address]Dr. Cortez Younger IG % 0.4 % Normal 0.0-0.5 [facility] Comment on above: Performed By: #### C BC ####[facility] [address] [place], [place] [address]Dr. Cortez Younger LYMPH # 1.3 103/ul Normal 1.2-3.8 [facility] Comment on above: Performed By: #### C BC ####[facility] [address] [place], [place] [address]Dr. Cortez Aren Lymphocytes/100 WBC (Bld) 13.7 % Critically low 20.5-60.0 [facility] Comment on above: Performed By: #### C BC ####[facility] [address] [place] [address]Dr. Cortez Younger MANUAL DIFF REQ NO Normal [facility] Comment on above: Performed By: #### C BC ####[facility] [address] [id number]. Cortez Younger MCH (RBC) [Entitic mass] 31.4 pg Normal 25.9-34.0 [facility] Comment on above: Performed By: #### C BC ####[facility] [address] [place] [address]Dr. Cortez Younger MCHC (RBC) [Mass/Vol] 35.9 g/dL Critically high 29.9-35.2 [facility] Comment on above: Performed By: #### C BC ####[facility] [address] [place], [place] [address]DrFish Younger MCV (RBC) [Entitic vol] 87.4 fL Normal 80.0-94.0 [facility] Comment on above: Performed By: #### C BC ####[facility] [address] [place], [place] [address]DrFish Younger MONO # 0.4 103/ul Normal 0.3-0.8 [facility] Comment on above: Performed By: #### C BC ####[facility] [address] [place] [address]DrFish Younger Monocytes/100 WBC (Bld) 3.6 % Normal 1.7-12.0 [facility] Comment on above: Performed By: #### C BC ####[facility] [address] [place], [place] [address]DrFish Younger NEUT # 7.9 103/ul Critically high 1.4-6.5 [facility] Comment on above: Performed By: #### C BC ####[facility] [address] [place] [address]DrFish Younger Neutrophils/100 WBC (Bld) 81.3 % Critically high 43.0-75.0 [facility] Comment on above: Performed By: #### C BC ####[facility] [address] [place] [address]Dr. Cortez Younger Platelet mean volume (Bld) [Entitic vol] 8.8 fL Critically low 9.5-13.5 [facility] Comment on above: Performed By: #### C BC ####[facility] [address] [place] [address]Dr. Cortez Younger PLT 371 103/ul Normal 150-450 [facility] Comment on above: Performed By: #### C BC ####[facility] [address] [place] [address]Dr. Cortez Younger RBC 4.91 106/ul Normal 4.70-6.10 [facility] Comment on above: Performed By: #### C BC ####[facility] [address] [place], [place] [address]Dr. Cortez Younger WBC 9.8 103/ul Normal 4.0-11.0 [facility] Comment on above: Performed By: #### C BC ####[facility] [address] [place], [place] [address]DrFish Younger CRPon 10-07-2022 CRP [Mass/Vol] mg/L Normal <=1.0 The [facility] Comment on above: Performed By: #### L IPA, TSH, CRP, CMP ####[facility] [address] [place], [place] [address]DrFish Younger ER URINE PROFILEon 3 Bilirubin Ql (U) Negative Normal NEGATIVE [facility] Comment on above: Performed By: #### E RUR #### [facility] [address] [place] [address] Dr. Cortez Younger Clarity (U) CLEAR Normal CLEAR [facility] Comment on above: Performed By: #### E RUR #### [facility] [address] [place] [address] Dr. Cortez Younger Color (U) LT. YELLOW Normal YELLOW [facility] Comment on above: Performed By: #### E RUR #### [facility] [address] [address] [address] Cortez PRESTON A micrscopic examina tion will be performed if indicated. Normal [facility] Comment on above: Performed By: #### E RUR #### [facility] [address] [place] [address] Dr. Cortez Younger Glucose Ql (U) Negative Normal NEGATIVE [facility] Comment on above: Performed By: #### E RUR #### [facility] [address] [place] [address] Dr. Cortez Younger Hemoglobin Ql (U) Negative Normal NEGATIVE [facility] Comment on above: Performed By: #### E RUR #### [facility] [address] [place] [address] Dr. Cortez Younger Ketones Ql (U) Negative Normal NEGATIVE [facility] Comment on above: Performed By: #### E RUR #### [facility] [address] [place] [address] Dr. Cortez Younger LEUKOCYTES Negative Normal NEGATIVE [facility] Comment on above: Performed By: #### E RUR #### [facility] [address] [place] [address] Dr. Cortez Younger Nitrite Ql (U) Negative Normal NEGATIVE [facility] Comment on above: Performed By: #### E RUR #### [facility] [address] [place] [address] Dr. Cortez Younger pH (U) 7.5 [pH] Normal 5-9 [facility] Comment on above: Performed By: #### E RUR #### [facility] [address] [place] [address] Dr. Cortez Younger SPEC GRAVITY <=1.005 Abnormal 1.005-<=1.025 [facility] Comment on above: Performed By: #### E RUR #### [facility] [address] [place] [address] Dr. Cortez Younger UA PROTEIN Negative Normal NEGATIVE/ TRACE [facility] Comment on above: Performed By: #### E RUR #### [facility] [address] [address] [address] Cortez Younger UR MICRO IND NOT INDICATED Normal [facility] Comment on above: Performed By: #### E RUR #### [facility] [address] [address] [address] Cortez Younger Urobilinogen Qn (U) 0.2 {Fidelia'U}/dL Normal 0.2 - 1.0 [facility] Comment on above: Performed By: #### E RUR #### [facility] [address] [address] [address] Cortez Younger LACTATE/LACTIC ACIDon 2022 Lactate [Moles/Vol] 1.0 mmol/L Normal 0.4-2.0 [facility] Comment on above: Performed By: #### E RUR #### [facility] [address] [place] [address] Dr. Cortez Younger LIPASEon 10-07-2022 Lipase [Catalytic activity/Vol] 84.0 U/L Normal 73.0-393.0 [facility] Comment on above: Performed By: #### L IPA, TSH, CRP, CMP ####[facility] [address] [place] [address]DrFish Younger PROF 14(COMP METB)on 023 Albumin [Mass/Vol] 3.9 g/dL Normal 3.4-5.0 [facility] Comment on above: Performed By: #### L IPA, TSH, CRP, CMP ####[facility] [address] [place] [address]DrFish Younger Albumin/Globulin [Mass ratio] 1.7 {ratio} Normal [facility] Comment on above: Performed By: #### L IPA, TSH, CRP, CMP ####[facility] [address] [place] [address]DrFish Younger ALP [Catalytic activity/Vol] 78 U/L Normal 46-116 [facility] Comment on above: Performed By: #### L IPA, TSH, CRP, CMP ####[facility] [address] [place] [address]Dr. Cortez Younger ALT [Catalytic activity/Vol] 28 U/L Normal 16-63 [facility] Comment on above: Performed By: #### L IPA, TSH, CRP, CMP ####[facility] [address] [place] [address]Dr. Cortez Younger Anion gap [Moles/Vol] 12.1 mmol/L Normal [facility] Comment on above: Performed By: #### L IPA, TSH, CRP, CMP ####[facility] [address] [place] [address]Dr. Cortez Younger AST [Catalytic activity/Vol] 15 U/L Normal 15-37 [facility] Comment on above: Performed By: #### L IPA, TSH, CRP, CMP ####[facility] [address] [place] [address]Dr. Cortez Younger Bilirubin [Mass/Vol] 0.5 mg/dL Normal 0.2-1.0 [facility] Comment on above: Performed By: #### L IPA, TSH, CRP, CMP ####[facility] [address] [place], [place] [address]Dr. Cortez Younger Calcium [Mass/Vol] 8.6 mg/dL Normal 8.5-10.1 [facility] Comment on above: Performed By: #### L IPA, TSH, CRP, CMP ####[facility] [address] [place] [address]Dr. Cortez Younger Chloride [Moles/Vol] 100 mmol/L Normal 98-107 [facility] Comment on above: Performed By: #### L IPA, TSH, CRP, CMP ####[facility] [address] [place] [address]Dr. Cortez Younger CO2 [Moles/Vol] 28.8 mmol/L Normal 21.0-32.[address] [facility] Comment on above: Performed By: #### L IPA, TSH, CRP, CMP ####[facility] [address] [place] [address]Dr. Cortez Younger Creatinine [Mass/Vol] 0.70 mg/dL Normal 0.70-1.30 [facility] Comment on above: Performed By: #### L IPA, TSH, CRP, CMP ####[facility] [address] [place] [address]Dr. Cortez Younger EGFR-AF COLOMBIAN >60 Normal >=60 [facility] Comment on above: Performed By: #### L IPA, TSH, CRP, CMP ####[facility] [address] [place] [address]Dr. Cortez Younger EGFR-NON AF COLOMBIAN >60 Normal >=60 [facility] Comment on above: Performed By: #### L IPA, TSH, CRP, CMP ####[facility] [address] [place] [address]Dr. Cortez Younger Globulin (S) [Mass/Vol] 2.3 g/dL Normal [facility] Comment on above: Performed By: #### L IPA, TSH, CRP, CMP ####[facility] [address] [place], [place] [address]Dr. Cortez Younger Glucose [Mass/Vol] 111 mg/dL Critically high 74-106 [facility] Comment on above: Performed By: #### L IPA, TSH, CRP, CMP ####[facility] [address] [place] [address]Dr. Cortez Younger Potassium [Moles/Vol] 3.9 mmol/L Normal 3.5-5.1 [facility] Comment on above: Performed By: #### L IPA, TSH, CRP, CMP ####[facility] [address] [place] [address]Dr. Cortez Younger Protein [Mass/Vol] 6.2 g/dL Critically low 6.4-8.2 [facility] Comment on above: Performed By: #### L IPA, TSH, CRP, CMP ####[facility] [address] [place] [address]Dr. Cortez Younger Sodium [Moles/Vol] 137 mmol/L Normal 136-145 [facility] Comment on above: Performed By: #### L IPA, TSH, CRP, CMP ####[facility] [address] [place], [place] [address]Ru. Cortez Younger Urea nitrogen [Mass/Vol] 6.0 mg/dL Critically low 7.0-18.0 [facility] Comment on above: Performed By: #### L IPA, TSH, CRP, CMP ####[facility] [address] [place], [place] [address]Bo. Cortez Younger Urea nitrogen/Creatinin e [Mass ratio] 8.6 mg/mg Normal [facility] Comment on above: Performed By: #### L IPA, TSH, CRP, CMP ####[facility] [address] [place], [place] [address]It. Cortez Younger SED RATE [facility] 2022 SED RATE <1 Normal <=20 [facility] Comment on above: Performed By: #### C BC #### [facility] [address] [place], [place] [address] Dr. Cortez Younger [facility] TSH 1.031 uIU/mL Normal 0.358-3.740 [facility] Comment on above: Performed By: #### L IPA, TSH, CRP, CMP ####[facility] [address] [id number]. Cortez Younger [facility]13 SARS-CoV-2 (COVID-19) RNA AXEL+probe Ql (Unsp spec) Not detected Normal NOT DETECTED [facility] Comment on above: Result [...] for this test is supported by the [employer] of [employer] and Human Service's declaration that [...] used). Performed By: #### C BC #### [facility] [address] [place] [address] Dr. Cortez Younger INFLUENZA A AND B [facility] 05-28 INFLUANE SEE BELOW Normal [facility] Comment on above: Result Comment: Nega tive for Flu A protein angiten. Infection due to Flu A cannot be ruled out. Flu A angiten in the sample may be below the detection limit of the test. Performed By: #### E RUR #### [facility] [address] [place] [address] Dr. Cortez Younger INFLUBNEGH SEE BELOW Normal [facility] Comment on above: Result Comment: Nega tive for Flu B protein antigen. Infection due to Flu B cannot be ruled out. Flu B antigen in the sample may be below the detection limit of the test. Performed By: #### E RUR #### [facility] [address] [place] [address] Dr. Cortez Younger INFLUENZA A AG Negative Normal NEGATIVE SEE COMMENT [facility] Comment on above: Performed By: #### E RUR #### [facility] [address] [place] [address] Dr. Cortez Younger INFLUENZA B AG Negative Normal NEGATIVE SEE COMMENT [facility] Comment on above: Performed By: #### E RUR #### [facility] [address] [place] [address] Dr. Cortez Younger INTERNAL CONTROLS Within Normal Limits Normal Wi thin Normal Limits [facility] Comment on above: Performed By: #### E RUR #### [facility] [address] [place] [address] Dr. Cortez Younger XR CHEST 1 Von [...] KAIA SHEIKH Date: 2022-05-28 13:36 Normal [facility] PROF 14(COMP METB)on 022 Albumin [Mass/Vol] 3.9 g/dL Normal 3.4-5.0 The [facility] Comment on above: Performed By: #### C MP #### [facility] [address] [address] [address] Cortez Younger Albumin/Globulin [Mass ratio] 1.4 {ratio} Normal [facility] Comment on above: Performed By: #### C MP #### [facility] [address] [place] [address] Dr. Cortez Younger ALP [Catalytic activity/Vol] 81 U/L Normal 46-116 [facility] Comment on above: Performed By: #### C MP #### [facility] [address] [address] [address] Cortez Younger ALT [Catalytic activity/Vol] 19 U/L Normal 16-63 [facility] Comment on above: Performed By: #### C MP #### [facility] [address] [address] [address] Cortez Younger Anion gap [Moles/Vol] 12.3 mmol/L Normal [facility] Comment on above: Performed By: #### C MP #### [facility] [address] [place] [address] Dr. Cortez Younger AST [Catalytic activity/Vol] 15 U/L Normal 15-37 [facility] Comment on above: Performed By: #### C MP #### [facility] [address] [address] [address] Cortez Younger Bilirubin [Mass/Vol] 0.3 mg/dL Normal 0.2-1.0 [facility] Comment on above: Performed By: #### C MP #### [facility] [address] [place] [address] Dr. Cortez Younger Calcium [Mass/Vol] 8.6 mg/dL Normal 8.5-10.1 [facility] Comment on above: Performed By: #### C MP #### [facility] [address] [address] [address] Cortez Younger Chloride [Moles/Vol] 101 mmol/L Normal 98-107 [facility] Comment on above: Performed By: #### C MP #### [facility] [address] [address] [address] Cortez Younger CO2 [Moles/Vol] 30.6 mmol/L Normal 21.0-32.[address] [facility] Comment on above: Performed By: #### C MP #### [facility] [address] [address] [address] Cortez Younger Creatinine [Mass/Vol] 0.75 mg/dL Normal 0.70-1.30 [facility] Comment on above: Performed By: #### C MP #### [facility] [address] [place] [address] Dr. Cortez Younger EGFR-AF COLOMBIAN >60 Normal >=[address] [facility] Comment on above: Performed By: #### C MP #### [facility] [address] [address] [address] Cortez Younger EGFR-NON AF COLOMBIAN >60 Normal >=60 [facility] Comment on above: Performed By: #### C MP #### [facility] [address] [address] [address] Cortez Younger Globulin (S) [Mass/Vol] 2.8 g/dL Normal [facility] Comment on above: Performed By: #### C MP #### [facility] [address] [address] [address] Cortez Younger Glucose [Mass/Vol] 98 mg/dL Normal 74-106 [facility] Comment on above: Performed By: #### C MP #### [facility] [address] [place] [address] Dr. Cortez Younger Potassium [Moles/Vol] 3.9 mmol/L Normal 3.5-5.1 [facility] Comment on above: Performed By: #### C MP #### [facility] [address] [address] [address] Cortez Younger Protein [Mass/Vol] 6.7 g/dL Normal 6.4-8.2 [facility] Comment on above: Performed By: #### C MP #### [facility] [address] [place] [address] Dr. Cortez Younger Sodium [Moles/Vol] 140 mmol/L Normal 136-145 [facility] Comment on above: Performed By: #### C MP #### [facility] [address] [place] [address] Dr. Cortez Younger Urea nitrogen [Mass/Vol] 5.0 mg/dL Critically low 7.0-18.0 [facility] Comment on above: Performed By: #### C MP #### [facility] [address] [place] [address] Dr. Cortez Younger Urea nitrogen/Creatinin e [Mass ratio] 6.7 mg/mg Normal [facility] Comment on above: Performed By: #### C MP #### [facility] [address] [place] [address] Dr. Cortez Younger CBC AUTO DIFFon 01-18-2022 BASO # 0.0 103/ul Normal 0.0-0.1 [facility] Comment on above: Performed By: #### C BC #### [facility] [address] [place] [address] Dr. Cortez Younger Basophils/100 WBC (Bld) 0.1 % Critically low 0.2-2.0 [facility] Comment on above: Performed By: #### C BC #### [facility] [address] [place] [address] Dr. Cortez Younger EO # 0.0 103/ul Normal 0.0-0.7 [facility] Comment on above: Performed By: #### C BC #### [facility] [address] [place] [address] Dr. Cortez Younger Eosinophils/100 WBC (Bld) 0.0 % Critically low 0.9-7.0 [facility] Comment on above: Performed By: #### C BC #### [facility] [address] [place] [address] Dr. Cortez Younger Erythrocyte distribution width (RBC) [Ratio] 12.8 % Normal 11.0-15.0 [facility] Comment on above: Performed By: #### C BC #### [facility] [address] [place] [address] Dr. Cortez Younger Hematocrit (Bld) [Volume fraction] 42.7 % Normal 42.0-54.0 [facility] Comment on above: Performed By: #### C BC #### [facility] [address] [place] [address] Dr. Cortez Younger Hemoglobin (Bld) [Mass/Vol] 15.3 g/dL Normal 14.0-18.0 [facility] Comment on above: Performed By: #### C BC #### [facility] [address] [place] [address] Dr. Cortez Younger IG # 0.10 10e3/ul Critically high 0.00-0.03 [facility] Comment on above: Performed By: #### C BC #### [facility] [address] [place] [address] Dr. Cortez Younger IG % 0.7 % Critically high 0.0-0.5 [facility] Comment on above: Performed By: #### C BC #### [facility] [address] [place] [address] Dr. Cortez Younger LYMPH # 1.9 103/ul Normal 1.2-3.8 [facility] Comment on above: Performed By: #### C BC #### [facility] [address] [place] [address] Dr. Cortez Younger Lymphocytes/100 WBC (Bld) 13.5 % Critically low 20.5-60.0 [facility] Comment on above: Performed By: #### C BC #### [facility] [address] [place] [address] Dr. Cortez Younger MANUAL DIFF REQ NO Normal [facility] Comment on above: Performed By: #### C BC #### [facility] [address] [address] [address] Cortez Younger MCH (RBC) [Entitic mass] 31.4 pg Normal 25.9-34.0 [facility] Comment on above: Performed By: #### C BC #### [facility] [address] [place] [address] Dr. Cortez Younger MCHC (RBC) [Mass/Vol] 35.8 g/dL Critically high 29.9-35.2 [facility] Comment on above: Performed By: #### C BC #### [facility] [address] [place] [address] Dr. Cortez Younger MCV (RBC) [Entitic vol] 87.5 fL Normal 80.0-94.0 [facility] Comment on above: Performed By: #### C BC #### [facility] [address] [place] [address] Dr. Cortez Younger MONO # 0.8 103/ul Normal 0.3-0.8 [facility] Comment on above: Performed By: #### C BC #### [facility] [address] [place] [address] Dr. Cortez Younger Monocytes/100 WBC (Bld) 5.6 % Normal 1.7-12.0 [facility] Comment on above: Performed By: #### C BC #### [facility] [address] [place] [address] Dr. Cortez Younger NEUT # 11.4 103/ul Critically high 1.4-6.[address] [facility] Comment on above: Performed By: #### C BC #### [facility] [address] [place] [address] Dr. Cortez Younger Neutrophils/100 WBC (Bld) 80.1 % Critically high 43.0-75.0 [facility] Comment on above: Performed By: #### C BC #### [facility] [address] [place] [address] Dr. Cortez Younger Platelet mean volume (Bld) [Entitic vol] 8.4 fL Critically low 9.5-13.5 [facility] Comment on above: Performed By: #### C BC #### [facility] [address] [place] [address] Dr. Cortez Younger PLT 352 103/ul Normal 150-450 [facility] Comment on above: Performed By: #### C BC #### [facility] [address] [place] [address] Dr. Cortez Younger RBC 4.88 106/ul Normal 4.70-6.10 [facility] Comment on above: Performed By: #### C BC #### [facility] [address] [place] [address] Dr. Cortez Younger WBC 14.2 103/ul Critically high 4.0-11.0 [facility] Comment on above: Performed By: #### C BC #### [facility] [address] [place] [address] Dr. Cortez Younger PROF 14(COMP METB)on 022 Albumin [Mass/Vol] 4.1 g/dL Normal 3.4-5.0 [facility] Comment on above: Performed By: #### C MP #### [facility] [address] [place] [address] Dr. Cortez Younger Albumin/Globulin [Mass ratio] 1.5 {ratio} Normal [facility] Comment on above: Performed By: #### C MP #### [facility] [address] [place] [address] Dr. Cortez Younger ALP [Catalytic activity/Vol] 77 U/L Normal 46-116 [facility] Comment on above: Performed By: #### C MP #### [facility] [address] [place] [address] Dr. Cortez Younger ALT [Catalytic activity/Vol] 19 U/L Normal 16-63 [facility] Comment on above: Performed By: #### C MP #### [facility] [address] [place] [address] Dr. Cortez Younger Anion gap [Moles/Vol] 10.6 mmol/L Normal [facility] Comment on above: Performed By: #### C MP #### [facility] [address] [place] [address] Dr. Cortez Younger AST [Catalytic activity/Vol] 8 U/L Critically low 15-37 [facility] Comment on above: Performed By: #### C MP #### [facility] [address] [address] [address] Cortez Younger Bilirubin [Mass/Vol] 0.3 mg/dL Normal 0.2-1.0 [facility] Comment on above: Performed By: #### C MP #### [facility] [address] [address] [address] Cortez Younger Calcium [Mass/Vol] 8.9 mg/dL Normal 8.5-10.1 [facility] Comment on above: Performed By: #### C MP #### [facility] [address] [place] [address] Dr. Cortez Younger Chloride [Moles/Vol] 91 mmol/L Critically low 98-107 [facility] Comment on above: Performed By: #### C MP #### [facility] [address] [address] [address] Cortez Younger CO2 [Moles/Vol] 30.1 mmol/L Normal 21.0-32.0 [facility] Comment on above: Performed By: #### C MP #### [facility] [address] [place] [address] Dr. Cortez Younger Creatinine [Mass/Vol] 0.88 mg/dL Normal 0.70-1.30 [facility] Comment on above: Performed By: #### C MP #### [facility] [address] [address] [address] Cortez Younger EGFR-AF COLOMBIAN >60 Normal >=[address] [facility] Comment on above: Performed By: #### C MP #### [facility] [address] [address] [address] Cortez Younger EGFR-NON AF COLOMBIAN >60 Normal >=60 [facility] Comment on above: Performed By: #### C MP #### [facility] [address] [place] [address] Dr. Cortez Younger Globulin (S) [Mass/Vol] 2.8 g/dL Normal [facility] Comment on above: Performed By: #### C MP #### [facility] [address] [address] [address] Cortez Younger Glucose [Mass/Vol] 112 mg/dL Critically high 74-106 T [facility] Comment on above: Performed By: #### C MP #### [facility] [address] [address] [address] Cortez Younger Potassium [Moles/Vol] 3.7 mmol/L Normal 3.5-5.1 [facility] Comment on above: Performed By: #### C MP #### [facility] [address] [address] [address] Cortez Younger Protein [Mass/Vol] 6.9 g/dL Normal 6.4-8.2 [facility] Comment on above: Performed By: #### C MP #### [facility] [address] [address] [address] Cortez Younger Sodium [Moles/Vol] 128 mmol/L Critically low 136-145 [facility] Comment on above: Performed By: #### C MP #### [facility] [address] [address] [address] Cortez Younger Urea nitrogen [Mass/Vol] 9.0 mg/dL Normal 7.0-18.0 [facility] Comment on above: Performed By: #### C MP #### [facility] [address] [address] [address] Cortez Younger Urea nitrogen/Creatinin e [Mass ratio] 10.2 mg/mg Normal [facility] Comment on above: Performed By: #### C MP #### [facility] [address] [address] [address] Cortez Younger SED RATE WESTERGRENon 2021 SED RATE <1 Normal <=20 [facility] Comment on above: Performed By: #### S EDR ####[facility] [address] [place], [place] [address]MaDr. Cortez Younger UA RANDOMon 01-18-2022 Bilirubin Ql (U) Negative Normal NEGATIVE [facility] Comment on above: Performed By: #### E RUR #### [facility] [address] [place] [address] Dr. Cortez Younger Clarity (U) CLEAR Normal CLEAR [facility] Comment on above: Performed By: #### E RUR #### [facility] [address] [place] [address] Dr. Cortez Younger Color (U) LT. YELLOW Normal YELLOW [facility] Comment on above: Performed By: #### E RUR #### [facility] [address] [place] [address] Dr. Cortez Younger Glucose Ql (U) Negative Normal NEGATIVE [facility] Comment on above: Performed By: #### E RUR #### [facility] [address] [place] [address] Dr. Cortez Younger Hemoglobin Ql (U) TRACE-LYSED Abnormal NEGATIVE [facility] Comment on above: Performed By: #### E RUR #### [facility] [address] [place] [address] Dr. Cortez Younger Ketones Ql (U) Negative Normal NEGATIVE [facility] Comment on above: Performed By: #### E RUR #### [facility] [address] [place] [address] Dr. Cortez Younger LEUKOCYTES TRACE Abnormal NEGATIVE [facility] Comment on above: Performed By: #### E RUR #### [facility] [address] [place] [address] Dr. Cortez Younger Nitrite Ql (U) Negative Normal NEGATIVE [facility] Comment on above: Performed By: #### E RUR #### [facility] [address] [place] [address] Dr. Cortez Younger pH (U) 6.5 [pH] Normal 5-9 [facility] Comment on above: Performed By: #### E RUR #### [facility] [address] [place] [address] Dr. Cortez Younger SPEC GRAVITY <=1.005 Abnormal 1.005-<=1.025 [facility] Comment on above: Performed By: #### E RUR #### [facility] [address] [address] [address] Cortez Younger UA PROTEIN Negative Normal NEGATIVE/ TRACE [facility] Comment on above: Performed By: #### E RUR #### [facility] [address] [address] [address] Cortez Younger Urobilinogen Qn (U) 0.2 {Fidelia'U}/dL Normal 0.2 - 1.0 [facility] Comment on above: Performed By: #### E RUR #### [facility] [address] [address] [address] Cortez Younger MRI CSPINE WO W [...] VERN LU Date: 2022-01-17 16:24 Normal [facility] MRI TSPINE WO W CONon [...] LU Date: 2022-01-17 16:29 Normal [facility] MRI BRAIN WO W CONon 022 [...] LU Date: 2022-01-03 08:03 Normal [facility] Patient Educationon 12-25-19 Patient Education Oncology [...] including vitamins, herbs, eye drops, creams, and pbji-sxz-lgbfupf medicines. This also includes: ? Medicines to [...] 08/01/2005 Document Revised: 06/11/2018 Document Reviewed: 04/05/2018 [employer] Patient Education ? 2019 [employer]. Normal [facility] Urology Office/Clinic Noteon 12-24-2021 Urology [...] Urnls Dip Stick Auto w/o Microscopy POC 86748 3. Elevated PSA (R97.20: Elevated prostate specific antigen [PSA]) Most recent PSA done 08/13/21 5.24 Ordered: Urnls Dip Stick Auto w/o Microscopy POC 41162 Other obstructive and reflux uropathy (N13.8: Other obstructive and reflux uropathy) Follow-up With When Contact Information Star Manley MD, Gustavo Orlando, URO In 6 months [facility] [address], [place] [address]- Additional Instructions: w/ PVR Patient Education Prostate-Specific [...] tab(s), Or (more content not included)... Normal [facility] Comment on above: Result Comment: Elec tronically Signed By: Star Manley MD, Gustavo Orlando\.br\Date and Time Signed: 12/24/21 10:52 EDT\.br\Electronically Co-Signed By: Lynda Ortega\.br\Date and Time Co-Signed: 12/24/21 10:47 EDT Lab Reportson 12-16-2021 Lab Reports [id number]#1.00CD: 127 Normal [facility] Lab Reports [id number]#1.00CD: 127 Normal [facility] CULTURE URINEon 12-12-2021 CULTURE URINE Culture Observations : No growth Normal [facility] Comment on above: Performed By: #### U RCX ####[facility] [address] [address]Dr. Cortez Younger UA RANDOMon 12-12-2021 Bilirubin Ql (U) Negative Normal NEGATIVE [facility] Comment on above: Performed By: #### U A #### [facility] [address] [address] [address] Cortez Younger Clarity (U) CLEAR Normal CLEAR [facility] Comment on above: Performed By: #### U A #### [facility] [address] [place] [address] Dr. Cortez Younger Color (U) LT. YELLOW Normal YELLOW [facility] Comment on above: Performed By: #### U A #### [facility] [address] [place] [address] Dr. Cortez Younger Glucose Ql (U) Negative Normal NEGATIVE [facility] Comment on above: Performed By: #### U A #### [facility] [address] [place] [address] Dr. Cortez Younger Hemoglobin Ql (U) LARGE Abnormal NEGATIVE [facility] Comment on above: Performed By: #### U A #### [facility] [address] [place] [address] Dr. Cortez Younger Ketones Ql (U) Negative Normal NEGATIVE [facility] Comment on above: Performed By: #### U A #### [facility] [address] [place] [address] Dr. Cortez Younger LEUKOCYTES Negative Normal NEGATIVE [facility] Comment on above: Performed By: #### U A #### [facility] [address] [place] [address] Dr. Cortez Younger Nitrite Ql (U) Negative Normal NEGATIVE [facility] Comment on above: Performed By: #### U A #### [facility] [address] [place] [address] Dr. Cortez Younger pH (U) 7.0 [pH] Normal 5-9 [facility] Comment on above: Performed By: #### U A #### [facility] [address] [place] [address] Dr. Cortez Younger SPEC GRAVITY 1.010 Normal 1.005-<=1.025 [facility] Comment on above: Performed By: #### U A #### [facility] [address] [address] [address] Cortez Younger UA PROTEIN Negative Normal NEGATIVE/ TRACE [facility] Comment on above: Performed By: #### U A #### [facility] [id number] Cortez Younger Urobilinogen Qn (U) 0.2 {Fidelia'U}/dL Normal 0.2 - 1.0 [facility] Comment on above: Performed By: #### U A #### [facility] [address] [place] [address] Dr. Cortez Younger Coding Summary.on 12-06-2021 Coding Summary. CD:[id number] Gh0b Ww+PGhlYWQ+EJ3PIGTjI67dv MKnnN2BO7oSAJ0YBKUWKELGI B0ZQV4vaMM1AMjdR3EytrVv AcpxuIFeFB43NCr9FCM8mZcp AYkafN7vaYUfC3s3OvYsCP70 cL13AIwrDIUeBxM7DgOodvnt bWFy T4gfWkGriLYgLjf+PHRhYmxl IHdpZHRoPScxMDAlJyBzdHls OP0hOv1jKLCxLHGmyXchmDRt OiBj i7cqLYAsSRomOR4hlXvhT8Rd zQL0FMCml7l6Lz94sQA+PHRk RRL4oRxiCKjvj485WzPpm5gq IDM3 cCPqYZrgRKL2F45bu7N7TFRy BQWtPAF9rXB7iA7zkAnthjom J0CuyVPkMmS6VLI2iIBipP3b bGln pmhmsG8wJox+S63XHW9LMLOH OU5ENck1B7TqBrdmtSL+PC90 XVTsBY75lZQjeWYuv0utfOp7 JzEw SCVgWEO9aJivLBohu3WhSIQu S98dtWEii9A6AMDvcVairTPd NwAffMI9bB6yGTnjulxqa5fm dzsn Gwqds5dtws25fH10L32sVPue CTMjOBO5ZFQoHYCrpXklum2c dT1qBx5+PTfbp0kez5ofcHl9 IjIw TZVyegNsyMppACW5x0MfXr57 H7PglMruz1BeXss8be42pMHg a2A3zVX0BQavWWRmwC9gQJzr ZnQ6 DREoXbWwiS37bYXgEUplWm3p jGhheYduCG6iWCMjwdrgJMHl pQ8uELMxuRZnuGhpKI3cUIDi bjtm a925XjKtAAC1VTLopXXvW8Ch rI9hGmHbEUTyYEVzN0DnkYNc PZcnU258IRuxWfF3GXIqdzKs Y2Fs RDLslEugTpQ7r9Q7Ay3Rk7Wn lleeSJY3MUkrDQN9KqV5HvPq VxH7T4DfGuf6FFSpfGtuLD1h J3Bh KMYjecjkmowwlFC2VNBiYEEn cB18yRYtNWivFv9mb6Q6i340 UKTuOIOklP04Sz6gpMldCFVi dCBU pW6ijqmjx2dmxgagMdOcFQSz RCy6HHz7UJMcaJzuUgNuHCK3 KzY0SFP8aEUbiP5edBtulcic dG9w Oyc+O62tnP0tPFN4UAH5plqd JPXarcIePJ88SU31Q9VeQfuw dGFibGU+KXUfzrUksLakRQ9y YmFj t4rbz0MaRGaaA3PlVZYqPYmm Ksq9XLHkFYI2hYJ4lS3jSKJv GIthv0Q0gZJ2E4XuiaWxum8d b2xs NGUqDIeoC06uuMNsg5A9LFNb tHW8HXLyuWmtIvRmkJ50Hxg+ KQYbmNcem7XqDwjps2kfg9il dGg9 QiSxUNGkpiZtnDnrGQZ3w3Tq Dx75R68kTDvbIUSoDITeFAXf PSVmlTgjnq1akX4tYz4+PGNv bCB3 lTM6oJ8bQXZrWkO5VXvdR287 VrDuwQAtBfbgp4myu4ablUw5 HaDbBBGorlYbgFvtXNJ2z4Sv Lz48 P23uYDqrVOJqMBQlEYEhYZJq nWwois3noT1lKh2+UK6nf8pz ip18hP88aUL+NIQyMWT9mPoj PSdw ZEVwkL9bRLlbQsK1CAEdNcEf zM20tCUcHEoaFw8xtKkqxAuq XQ9gEVIpzrpqh772YhKpu6pt IDEw tEOwIJjxKTW0D04np6K6JOSp JNLwQPR1nEZ3pV5glOtiwdox bGVmdDsgdmVydGljYWwtYWxp Z246 IHRvcDsnPlBhdGllbnQgTmFt IRn9I6XjFcm7DIPgiKuaSW8i yJEfGTobCv5bpQvktGezDR2s NTBp fnbte724KcAxc4lnHWSarXDl PJecVHR8X24nq4W2XLOvFYJx AYK6sMZ1fA0skUzumfronJZq dDsg xfKngCazAYzqXIztD655WHJv hZjwBeYurpGiWHFpwNC3NP33 KR45sGBzd0Q5wEE3W8HmFOPf bmct lsgqdUL3JFYoJSDggB19Ye3b zTinAs4lFYEfPSQ9NPGxaCHi W3QhqR4xDpIcBZAlJZPkB0Az eHQt ZXueN272SNvsJuP0DCYmkiKs R1TtETNgdPiyBpU0r3V8Im5N F1N2YC84HS83kPFpc5E3pYN0 J3Bh VXYuqvzmdsupkEG5RASjUQNc qA83Dj9dhNrxFt8nQAPgSBW5 WANpuZBuN0TueI4nVaYlQEGu MDAw F1YqhHZdDGeqW813CYanReH2 IPFvmqRoA3DiHIKmpIvcVwU8 h9A4Ap2YZDc9LL00QH16dDWg c3R5 uPE9B6RbQEYcvrzzteaueAJ4 HQFsJWZcgW79Mn3obSaiTc8g FYKjIEU0HCLzxOSuF3QxiS0z OiAj FXImZWQgD5ErsJEbRYbcA818 OMjnDlK1BTUkutXeY7OmGNCo ePjqVoM6d7M9Eb9AUHToMN27 IFR5 gNV3ES79YT83M4PvRzzhrTOr bGU+PHRhYmxlIHdpZHRoPScx NXTqLwCqzIsxFB6rDa8iSVQc LWNv pPsheSHlPuQge9lzFZQpXHno GD5fkBkdR1UcrOW4CGPwn7x7 Wo36W06hC2FvfAY+PGNvbCB3 aWR0 rS1rClRnDhI4TXytH533OwGj vZWgFjgip1znb8vjlTc8JcZ9 DSShcqIdvHxuAJZ8r3FcUz64 Y29s IHdpZHRoPSIxNSUiIHZhbGln pm7zzX7oGh7+KZIssMU7qTA9 aJ0eZtAsSyI2LAokP146GjJl cCIv Ffmnm6rqy7suqGn8XtRrCHOk ohHeiOtqEBX2c7VyQu38N4Db sZchb7RgEva2lk05fUQub0U3 bGU9 Q6ZbFZLqyzouvBFlhSqnHG5h UJKpcpabSVCteH7rTJWvM9x2 OqKyRfK1JSvnH9CdqjI2YLTg cHQg XZnuOZG1N96pn3C0THVfCMDg EAM9eFA3lZ2cgNtqbwwtwHEe iRevbuYyyBuaNIvsKOigT165 IHRv gQezYURqiQ5fTLWkoHBsfBgz MP3qWTIcsywhFzGNYtDCK3xX VKbvF6DKCP7eRRjdoDU+PHRk IHN0 zMslTWnmFEFbnN8gWDJbM7q1 BvRfHvW3SEntK0JjRXIdjjge Kz66lT3pCzOpWyF6ZRqmA4Eh bnQ6 QGVgbGOfIRdoCLK2J72vz9T5 ATUmBZBgVBM2rSK7vW9ztQcc bjogbGVmdDsgdmVydGljYWwt YWxp J061RKXxzSvyRxU5SdAeLmP8 Mwj3S9SsIlm5BVRbzIivHP9x zYMvWKoxHj7wvOoghTjbYM6i NTBp gaukTGNqdA3hKEEkvWQgmLfu QE3mVAVobtsvv024OeVgEFH2 FBOejPZnX3LviH8wImHlIXXg MDAw Q6LkvOBmMNkcA237PHsqCtT5 LBFxxwUtU1DhRBHffPfeQhS1 m2O4Ev83PfKKVPCexmdhjOR+ PHRk XRS0rYreAFrrQLPpvB2iTHNt X6e3SrUzEgX9RHlfV2OyEPZg jmoqLz39kA5lPfQyQjN7TBcf O2Zv vvP8UFKxeHErOMoeFEY7P95f a3O7NRCgEMDnXDJ5hFH7kI7s bGlnbjogbGVmdDsgdmVydGlj YWwt XHqcN137GPVjbEyuEr5rfRR0 U3JeYlb4JLKaqMojIS5euHKd DYesQq7anRfodAhvYD2lIFHl bjtw JRExnI3aGXXyqEFknTsqWP4a SMJpqubif097CpFfBVM6RJSm xYDzU6KvzF5iPiWgRJIiJWEa O3Rl bOOlJNebC072HUduRfV7UZEk pbKlB7TwOEFqpCtmMeU8h3G9 Jz7NrSUxWPUwRL82LJ59UE15 L3Ry PjwvdGFibGU+PHRhYmxlIHdp MJUuJVvoLURfKoMsaVljCX7n Ll6eQACbMOAeeAnnvZTzXxIc b2xs VQQfZJldZK7tcFwhE0XquWC6 CVXgx4v2Hj09S10sS5AphQP+ RPLelRL8yWQ0eM9kAhCrFdG5 YWxp O815DoZiyXXfWfenc3ptl5jo vMg9UlAtVMGbwaPpdBupMNO0 o9FyUo14G75aWRmlSQEcZCAd MCUi ZXRouClddq7osP6vJj4+PGNv pGF6wUA8iV2cMzWuWaQ6KUnu J632BnAqwXUfUosmX49fA3Bw dXA+ LVLbNxr2AKDanXhbDI7ddNNe BLqaRv7sBEB7RdUbXpIhEBju H2EbUBCmbjnlgxzeiGO8JGRw MDUw eV09Fv7ccQmiNy7tXESlHHK6 ILLvhOJwI9QcpK4vUvRzROWq DJEnN5IjfGNpQLdyA341UPdp ZnQ7 NIHqhqKiV5UjHQPngNqmZjB8 h3B0Fr9CmEhgxFGaOF8bTmBy WAg5K1AcZfe8XOPtdSarFZ5r cGFk TXrxLr4bmGwhpGinST6aRHVa cvdyi395IaBhd1egHEVzbZXg JPwrFCQ6P62sa2I6ZDTqQVMb MDA7 iDW3sQ1nuMrxhnzidRLbkUzl qeBlaGlhPVouOWfpH491WKSp cNzbAzLTZts2D9LuXge0BMNp dHls AC7ceRNzQIrgAh2rcNafyWcm RF6kMHXaamahq461PmDsi1nw DZJphTEnTXitIWC5R14bb7C5 ICMw KTUeTBU4oBJ0bT1kuOxlmsbn bGVmdDsgdmVydGljYWwtYWxp V087AQQqaVleGf7MEyl2F9Sq Pjx0 WTZunZrqKM8xrFJyCKehXq4e dMddwXprAR3kRPDbgtmab228 HhJzm5xtMZYxdBTvWXnaAYZ2 Y29s o5K2WHKtQOKiXTM1xEV2fM2j bGlnbjogbGVmdDsgdmVydGlj YLpvRIsvD636LRRncPbsSdOs eWVy OjwvdGQ+LX20ct34U7JbQvok Uwv2HQEhZAB0dLU8mH0cPJNi YSejn4V0gKP8R5EnjuHzit8n b2xs YXBz (more content not included)... [facility] Consent for Procedure/Surger yon 12-05-2021 Consent for Procedure/Surgery [id number] :127 [facility] Consent for Treatmenton -2 Consent for Treatment [id number]#1.00CD: 127 [facility] IntraOperative Documentson 0 12-05-2021 IntraOperative Documents [id number] :127 [facility] Main OR Intraoperative Recor don 12-05-2021 Main OR Intraoperative Record IntraOp Document Type FTURO Summary Primary Physician: Star Manley MD, Gustavo Orlando Finalized Date/Time: 12/05/21 13:57:51 Pt. Name: HARISH MCKENNA D.O.B./Sex: 1970 Male Med Rec #: [id number] Physician: Star Manley MD, Gustavo Orlando Financial #: [id number] Pt. Type: O Room/Bed: / Admit/Disch: 12/05/21 11:48:14 - Institution: Case Times FTURO Entry 1 Patient Times In Room 12/05/21 13:23:00 Out Room 12/05/21 13:57:00 Procedure Times Start 12/05/21 13:40:00 Stop 12/05/21 13:53:00 Anesthesia Times Last Modified By: Veena Levin RN 12/05/21 13:57:47 Case Attendance FTURO Entry 1 Entry 2 Entry 3 Case Attendee Star Manley MD, Gustavo Sanders REGISTRAR ASSISTANT, Veena Brower REGISTRAR ASSISTANT, Ni Aguirre Role Performed Surgeon - Primary [...] Case Attendee Veena Levin RN Role Performed Internet Site Designer - Primary Time In 12/05/21 13:23:00 Time [...] Implant Implant Identification Description UROLIFT Lot Number [id number] [employer] Catalog ?# [id number] Expiration Date 07/17/23 Usage Data Implant Site [...] patient probl (more content not included)... Normal [facility] Main OR Preoperative Recordo n 12-05-2021 Main OR Preoperative Record Holding Area Document Type FTURO Summary Primary Physician: Gustavo Graves Jr., MD Finalized Date/Time: 12/05/21 13:01:06 Pt. Name: RICARDOSHARLAHARISH D.O.B./Sex: 1970 Male Med Rec #: [id number] Physician: Gustavo Graves Jr., MD Financial #: [id number] Pt. Type: O Room/Bed: / Admit/Disch: 12/05/21 [...] 12:28 Veena Levin RN 12/05/21 13:01 Normal [facility] Operative Reporton Operative Report Patient: HARISH [...] procedure (10 mg diazepam, 5/325 mg of [place]), Local Anesthesia (60cc 2% Xylocaine liquid inserted [...] well and was subsequently discharged home. Normal [facility] Comment on above: Result Comment: Elec tronically Signed By: Star Manley MD, Gustavo Orlando\.amanda\Date and Time Signed: 12/05/21 13:58 EDT CBC AUTO DIFFon 12-03-2021 BASO # 0.2 103/ul Critically high 0.0-0.1 [facility] Comment on above: Performed By: #### C BC ####[facility] [address] [address]DrFish Younger Basophils/100 WBC (Bld) 1.3 % Normal 0.2-2.0 [facility] Comment on above: Performed By: #### C BC ####[facility] [address] [id number]. Cortez Younger EO # 0.2 103/ul Normal 0.0-0.7 [facility] Comment on above: Performed By: #### C BC ####[facility] [address] [address]DrFish Younger Eosinophils/100 WBC (Bld) 1.8 % Normal 0.9-7.0 [facility] Comment on above: Performed By: #### C BC ####[facility] [address] [address]Dr. Cortez Younger Erythrocyte distribution width (RBC) [Ratio] 13.3 % Normal 11.0-15.0 [facility] Comment on above: Performed By: #### C BC ####[facility] [address] [place], [place] [address]Dr. Cortez Younger Hematocrit (Bld) [Volume fraction] 45.0 % Normal 42.0-54.0 [facility] Comment on above: Performed By: #### C BC ####[facility] [address] [place], [place] [address]Dr. Cortez Younger Hemoglobin (Bld) [Mass/Vol] 15.6 g/dL Normal 14.0-18.0 [facility] Comment on above: Performed By: #### C BC ####[facility] [address] [place], [place] [address]Dr. Cortez Younger IG # 0.05 10e3/ul Critically high 0.00-0.03 [facility] Comment on above: Performed By: #### C BC ####[facility] [address] [place], [place] [address]Dr. Cortez Younger IG % 0.4 % Normal 0.0-0.5 [facility] Comment on above: Performed By: #### C BC ####[facility] [address] [place], [place] [address]Dr. Cortez Younger LYMPH # 1.8 103/ul Normal 1.2-3.8 [facility] Comment on above: Performed By: #### C BC ####[facility] [address] [place], [place] [address]Dr. Cortez Younger Lymphocytes/100 WBC (Bld) 15.2 % Critically low 20.5-60.0 [facility] Comment on above: Performed By: #### C BC ####[facility] [address] [place], [place] [address]Dr. Cortez Aren MANUAL DIFF REQ NO Normal [facility] Comment on above: Performed By: #### C BC ####[facility] [address] [place] [address]Dr. Cortez Younger MCH (RBC) [Entitic mass] 31.1 pg Normal 25.9-34.0 [facility] Comment on above: Performed By: #### C BC ####[facility] [address] [place], [place] [address]Dr. Cortez Younger MCHC (RBC) [Mass/Vol] 34.7 g/dL Normal 29.9-35.2 [facility] Comment on above: Performed By: #### C BC ####[facility] [address] [place], [place] [address]Dr. Cortez Aren MCV (RBC) [Entitic vol] 89.8 fL Normal 80.0-94.0 [facility] Comment on above: Performed By: #### C BC ####[facility] [address] [place], [place] [address]Dr. Cortez Aren MONO # 0.6 103/ul Normal 0.3-0.8 [facility] Comment on above: Performed By: #### C BC ####[facility] [address] [place], [place] [address]Dr. Eleanorvalerie Younger Monocytes/100 WBC (Bld) 5.3 % Normal 1.7-12.0 [facility] Comment on above: Performed By: #### C BC ####[facility] [address] [place], [place] [address]Dr. Eleanorvalerie Aren NEUT # 8.9 103/ul Critically high 1.4-6.5 [facility] Comment on above: Performed By: #### C BC ####[facility] [id number] [place], [place] [address]Dr. Cortez Younger Neutrophils/100 WBC (Bld) 76.0 % Critically high 43.0-75.0 [facility] Comment on above: Performed By: #### C BC ####[facility] [address] [place], [place] [address]DrFish Younger Platelet mean volume (Bld) [Entitic vol] 8.9 fL Critically low 9.5-13.5 [facility] Comment on above: Performed By: #### C BC ####[facility] [address] [place] [address]DrFish Younger PLT 414 103/ul Normal 150-450 [facility] Comment on above: Performed By: #### C BC ####[facility] [address] [place] [address]DrFish Younger RBC 5.01 106/ul Normal 4.70-6.10 [facility] Comment on above: Performed By: #### C BC ####[facility] [address] [place] [address]DrFish Younger WBC 11.7 103/ul Critically high 4.0-11.0 [facility] Comment on above: Performed By: #### C BC ####[facility] [id number] [address]Dr. Cortez Younger PROF 14(COMP METB)on 022 Albumin [Mass/Vol] 3.8 g/dL Normal 3.4-5.0 [facility] Comment on above: Performed By: #### C BC #### [facility] [address] [place] [address] Dr. Cortez Younger Albumin/Globulin [Mass ratio] 1.3 {ratio} Normal [facility] Comment on above: Performed By: #### C BC #### [facility] [address] [address] [address] Cortez Younger ALP [Catalytic activity/Vol] 95 U/L Normal 46-116 [facility] Comment on above: Performed By: #### C BC #### [facility] [address] [address] [address] Cortez Younger ALT [Catalytic activity/Vol] 25 U/L Normal 16-63 [facility] Comment on above: Performed By: #### C BC #### [facility] [address] [address] [address] Cortez Younger Anion gap [Moles/Vol] 12.7 mmol/L Normal [facility] Comment on above: Performed By: #### C BC #### [facility] [address] [place] [address] Dr. Cortez Younger AST [Catalytic activity/Vol] 18 U/L Normal 15-37 [facility] Comment on above: Performed By: #### C BC #### [facility] [address] [place] [address] Dr. Cortez Younger Bilirubin [Mass/Vol] 0.3 mg/dL Normal 0.2-1.0 [facility] Comment on above: Performed By: #### C BC #### [facility] [address] [place] [address] Dr. Cortez Younger Calcium [Mass/Vol] mg/dL Normal 8.5-10.1 [facility] Comment on above: Performed By: #### C BC #### [facility] [address] [place] [address] Dr. Cortez Younger Chloride [Moles/Vol] 98 mmol/L Normal 98-107 [facility] Comment on above: Performed By: #### C BC #### [facility] [address] [place] [address] Dr. Cortez Younger CO2 [Moles/Vol] 28.9 mmol/L Normal 21.0-32.0 [facility] Comment on above: Performed By: #### C BC #### [facility] [address] [place] [address] Dr. Cortez Younger Creatinine [Mass/Vol] 0.84 mg/dL Normal 0.70-1.30 [facility] Comment on above: Performed By: #### C BC #### [facility] [address] [place] [address] Dr. Cortez Younger EGFR-AF COLOMBIAN >60 Normal >=60 [facility] Comment on above: Performed By: #### C BC #### [facility] [address] [place] [address] Dr. Cortez Younger EGFR-NON AF COLOMBIAN >60 Normal >=60 [facility] Comment on above: Performed By: #### C BC #### [facility] [address] [address] [address] Cortez Younger Globulin (S) [Mass/Vol] 3.0 g/dL Normal [facility] Comment on above: Performed By: #### C BC #### [facility] [address] [address] [address] Cortez Younger Glucose [Mass/Vol] 104 mg/dL Normal 74-106 [facility] Comment on above: Performed By: #### C BC #### [facility] [address] [address] [address] Cortez Younger Potassium [Moles/Vol] 3.6 mmol/L Normal 3.5-5.1 [facility] Comment on above: Performed By: #### C BC #### [facility] [address] [place] [address] Dr. Cortez Younger Protein [Mass/Vol] 6.8 g/dL Normal 6.4-8.2 [facility] Comment on above: Performed By: #### C BC #### [facility] [address] [place] [address] Dr. Cortez Younger Sodium [Moles/Vol] 136 mmol/L Normal 136-145 [facility] Comment on above: Performed By: #### C BC #### [facility] [address] [place] [address] Dr. Cortez Younger Urea nitrogen [Mass/Vol] 6.0 mg/dL Critically low 7.0-18.0 [facility] Comment on above: Performed By: #### C BC #### [facility] [address] [place] [address] Dr. Cortez Younger Urea nitrogen/Creatinin e [Mass ratio] 7.1 mg/mg Normal [facility] Comment on above: Performed By: #### C BC #### [facility] [address] [place] [address] Dr. Cortez Younger Consent for Procedure/Surger yon 10-15-2021 Consent for Procedure/Surgery [id number]: 127 Normal [facility] Patient Educationon 10-15-19 Patient Education [...] these instructions at home: Medicines ? Take woyh-ovh-jmjtzgn and prescription medicines only as told by [...] the blood stops without treatment. ? Take gnvn-uif-qiqybkl and prescription medicines only as told by your health care provider. ? Drink enough fluid to keep your urine clear or pale yellow. This information is not intended to replace advice given to you by your health care provider. Make sure you discuss any questions you have with your health care provider. Document Released: 06/29/2006 Document Revised: 11/23/2019 Document Reviewed: 08/01/2017 [employer] Patient Education ? 2019 [employer] [facility] Urology Office/Clinic Noteon 10-14-2021 Urology Office/Clinic [...] [facility] [address] [place] [address]- Additional Instructions: Patient Education Hematuria, Adult Jaret Finley personally scribed for Dr. Graves on 10/14/2021 13:40:09. . Documentation recorded by the Sharonda yao accurately reflects the services(s) I performed and decis (more content not included)... Normal [facility] Comment on above: Result Comment: Elec tronically Signed By: Gustavo Graves Jr., MD\.br\Date and Time Signed: 10/14/21 13:47 EDT\.br\Electronically Co-Signed By: Jaret Benz\.br\Date and Time Co-Signed: 10/14/21 13:40 EDT SURGICAL PATH REPORTon 01-25 SURGICAL PATH REPORT [facility] Department of Pathology [address] [place] [address] Name: HARISH MCKENNA : 1970 [facility] [id number] Number: Gender: Male Location: [facility] Admit 50 years Attending CRUZITO TOMLINSON JR Age: Provider: Ordering CRUZITO TOMLNISON JR Provider: Consulting: Surgical Pathology Report ACCESSION: COLLECTED DATE/TIME: RECEIVED DATE/TIME: PATHOLOGIST: [id number] 01/23/2021 12:05 EDT 01/24/2021 12:05 EDT ALVIN CADET MD Final Diagnosis Report for [facility] [place], [place] ANTRUM, BIOPSY: - MILD CHRONIC GASTRITIS. [...] MP/ts 01/24/2021 Tissue pathology report for: [facility], [address] [place] [id number]; Print Date/ 01/25/2021 12:34 EDT Number: Time: [facility] Department of Pathology [address] [place] [address] Name: HARISH MCKENNA : 1970 [facility] [id number] Number: Gender: Male Location: [facility] Admit 50 years Attending CRUZITO TOMLINSON JR Age: Provider: Ordering CRUZITO TOMLINSON JR Provider: Consulting: Surgical Pathology Report ACCESSION: COLLECTED DATE/TIME: RECEIVED DATE/TIME: PATHOLOGIST: [id number] 01/23/2021 12:05 EDT 01/24/2021 12:05 EDT ALVIN CADET MD Gross Description PATHOLOGY SERVICES PROVIDED BY [employer] (CLIA #[id number]) in cooperation with [facility] at [address] [place] [address] (CLIA #[id number]) Microscopic Diagnosis NOTE: One or more of the reagents used to perform assays on this specimen MAY have contained components considered to be analyte specific reagents ( ASRs). ASRs have not been cleared or approved by the U.S. Food and Drug Administration. The performance characteristics of these assays have been determined by the Department of Pathology at [facility]. This assay was performed subsequent to the H and E examination. Appropriate positive and negative controls were examined with appropriate reactivity. Codes CPT CODE: 91856 + [id number] Print Date/ 01/25/2021 12:34 EDT Number: Time: Normal [facility] Comment on above: Performed By: #### [id number] #### [facility] Laboratory Services [address] [place], [place] [id number] Label Maker: Alvin Cadet MD Vital Signs Date Time Vital Sign Value Performing Clinician Facility 11-01-2024 16:27-0400 Body height 177.8 cm Bubba Ghotra MD Work Phone: [facility] 11-01-2024 16:27-0400 Body mass index (BMI) [Ratio] 20.66 kg/m2 Bubba Ghotra MD Work Phone: [facility] 11-01-2024 16:27-0400 Body weight 65.32 kg Bubba Ghotra MD Work Phone: [facility] 09-28-2024 14:08-0400 Body height 177.8 cm Reba Posada PA Work Phone: [facility] 09-28-2024 14:08-0400 Body mass index (BMI) [Ratio] 20.66 kg/m2 Reba Posada PA Work Phone: [facility] 09-28-2024 14:08-0400 Body weight 65.32 kg Reba Posada PA Work Phone: [facility] 09-28-2024 14:08-0400 Diastolic blood pressure 62 mm[Hg] Reba Posada PA Work Phone: [facility] 09-28-2024 14:08-0400 Respiratory rate 16 /min Reba Posada PA Work Phone: [facility] 09-28-2024 14:08-0400 Systolic blood pressure 102 mm[Hg] Reba Posada PA Work Phone: [facility] 08-30-2024 15:51-0500 Body height 177.8 cm Bubba Ghotra MD Work Phone: [facility] 08-30-2024 15:51-0500 Body mass index (BMI) [Ratio] 20.95 kg/m2 Bubba Ghotra MD Work Phone: [facility] 08-30-2024 15:51-0500 Body weight 66.22 kg Bubba Ghotra MD Work Phone: [facility] 06-07-2024 15:45-0500 Body height 177.8 cm Reba Posada PA Work Phone: [facility] 06-07-2024 15:45-0500 Body mass index (BMI) [Ratio] 18.94 kg/m2 Reba Posada PA Work Phone: [facility] 06-07-2024 15:45-0500 Body weight 59.88 kg Reba Posada PA Work Phone: [facility] 06-07-2024 15:45-0500 Diastolic blood pressure 72 mm[Hg] Reba Posada PA Work Phone: [facility] 06-07-2024 15:45-0500 Heart rate 71 /min Reba Posada PA Work Phone: [facility] 06-07-2024 15:45-0500 Respiratory rate 16 /min Reba Posada PA Work Phone: [facility] 06-07-2024 15:45-0500 SaO2% (BldA) [Mass fraction] 94 % Reba Posada PA Work Phone: [facility] 06-07-2024 15:45-0500 Systolic blood pressure 112 mm[Hg] Reba Posada PA Work Phone: [facility] 05-10-2024 13:14-0400 Body height 177.8 cm [facility] 05-10-2024 13:14-0400 Body mass index (BMI) [Ratio] 19.3 kg/m2 [facility] 05-10-2024 13:14-0400 Body temperature 97.2 [degF] [facility] 05-10-2024 13:14-0400 Body weight 61 kg [facility] 05-10-2024 13:14-0400 Diastolic blood pressure 72 mm[Hg] [facility] 05-10-2024 13:14-0400 Systolic blood pressure 112 mm[Hg] [facility] 04-11-2024 16:32-0400 Body height 177.8 cm Reba Posada PA Work Phone: [facility] 04-11-2024 16:32-0400 Body mass index (BMI) [Ratio] 18.65 kg/m2 Reba Posada PA Work Phone: [facility] 04-11-2024 16:32-0400 Body weight 58.97 kg Reba Posada PA Work Phone: [facility] 04-11-2024 16:32-0400 Diastolic blood pressure 78 mm[Hg] Reba Posada PA Work Phone: [facility] 04-11-2024 16:32-0400 Heart rate 70 /min Reba Posada PA Work Phone: [facility] 04-11-2024 16:32-0400 Respiratory rate 16 /min Reba Posada PA Work Phone: [facility] 04-11-2024 16:32-0400 SaO2% (BldA) [Mass fraction] 96 % Reba Posada PA Work Phone: [facility] 04-11-2024 16:32-0400 Systolic blood pressure 120 mm[Hg] Reba Posada PA Work Phone: [facility] 04-04-2024 16:34-0400 Body height 177.8 cm Bubba Ghotra MD Work Phone: [facility] 04-04-2024 16:34-0400 Body mass index (BMI) [Ratio] 18.37 kg/m2 Bubba Ghotra MD Work Phone: [facility] 04-04-2024 16:34-0400 Body weight 58.06 kg Bubba Ghotra MD Work Phone: [facility] 04-04-2024 16:34-0400 Diastolic blood pressure 80 mm[Hg] Bubba Ghotra MD Work Phone: [facility] 04-04-2024 16:34-0400 Heart rate 71 /min Bubba Ghotra MD Work Phone: [facility] 04-04-2024 16:34-0400 SaO2% (BldA) [Mass fraction] 97 % Bubba Ghotra MD Work Phone: [facility] 04-04-2024 16:34-0400 Systolic blood pressure 140 mm[Hg] Bubba Ghotra MD Work Phone: [facility] 09-17-2023 14:59-0500 Body height 177.8 cm [facility] 09-17-2023 14:59-0500 Body mass index (BMI) [Ratio] 18.8 kg/m2 [facility] 09-17-2023 14:59-0500 Body temperature 98.1 [degF] [facility] 09-17-2023 14:59-0500 Body weight 59.42 kg [facility] 09-17-2023 14:59-0500 Diastolic blood pressure 45 mm[Hg] [facility] 09-17-2023 14:59-0500 Systolic blood pressure 82 mm[Hg] [facility] 03-25-2023 13:30-0400 Body height 177.8 cm Mahnaz Roth Other [facility] [employer] Other 03-25-2023 13:30-0400 Body mass index (BMI) [Ratio] 18.65 kg/m2 Mahnaz Roth Other [employer] [facility] [employer] Other 03-25-2023 13:30-0400 Body temperature 98.4 [degF] Mahnaz Roth Other [employer] Other 03-25-2023 13:30-0400 Body weight 58.97 kg Mahnaz Roth Other [employer] Other 03-25-2023 13:30-0400 Diastolic blood pressure 87 mm[Hg] Mahnaz Roth Other [employer] Other 03-25-2023 13:30-0400 Systolic blood pressure 135 mm[Hg] Mahnaz Roth Other [employer] Other 12-24-2021 09:50-0400 Blood Pressure Location Gustavo Graves Jr. [facility] 12-24-2021 09:50-0400 Diastolic blood pressure 76 mm[Hg] Gustavo Graves Jr. [facility] 12-24-2021 09:50-0400 Heart rate 68 /min Gustavo Graves Jr. [facility] 12-24-2021 09:50-0400 Systolic blood pressure 132 mm[Hg] Gustavo Star Manley [facility] Encounters Encounter Date Encounter Type Care Provider Facility Start: 11-07-2024 End: 11-07-2024 ambulatory [facility] Work Phone: Start: 11-07-2024 End: 11-07-2024 Patient encounter procedure [facility] Work Phone: Start: 11-01-2024 [...] Not Available Start: 09-14-2024 End: 09-14-2024 ambulatory [facility] Start: 08-30-2024 End: 08-30-2024 Office outpatient visit 15 minutes Bubba Ghotra MD Work Phone: [facility] Comment on above: Urinary incontinence without sensory awareness; Post-void dribbling; Relapsing remitting multiple sclerosis (CMS/HCC) Start: 08-30-2024 End: 08-30-2024 ambulatory BUBBA GHOTRA Not Available Start: 08-23-2024 End: 08-23-2024 ambulatory [facility] Work Phone: Start: 08-23-2024 End: 08-23-2024 Patient encounter procedure [facility] Work Phone: Start: 08-10-2024 [...] 06-22-2024 Telephone encounter Reba RIGGINS Work Phone: [facility] [address] Comment on above: MED FOR MRI Start: 06-07-2024 End: 06-07-2024 ambulatory REBA POSADA Not Available Start: 06-07-2024 End: 06-07-2024 Office outpatient visit 25 minutes Reba RIGGINS Work Phone: [facility] [place] [address] Comment on above: Multiple [...] 05-16-2024 Refill Kenna Lockett RN Work Phone: [facility] Comment on above: Insomnia, unspecifie d type (Primary Dx); Relapsing remitting multiple sclerosis (CMS/HCC) Start: 05-10-2024 End: 05-10-2024 [facility] Work Phone: Start: 05-10-2024 End: 05-10-2024 Patient encounter procedure [facility] Physician [facility] Work Phone: Start: 04-18-2024 End: 04-19-2024 Refill Elaina RIGGINS Work Phone: [facility] Comment on above: Cervical radiculopat hy; Sensory disturbance Start: 04-15-2024 End: 04-18-2024 Refill Kenna Lockett RN Work Phone: [facility] Comment on above: Venous insufficiency ; Relapsing remitting multiple sclerosis (CMS/HCC) Start: 04-14-2024 End: 04-14-2024 [facility] Work Phone: Start: 04-14-2024 End: 04-14-2024 Patient encounter procedure [facility] Work Phone: Start: 04-11-2024 End: 04-11-2024 ambulatory REBA POSADA Not Available Start: 04-11-2024 End: 04-11-2024 Office outpatient visit 25 minutes Reba Posada PA Work Phone: [facility] [place] [address] Comment on above: Multiple [...] Cervical radiculopathy Start: 03-04-2024 End: 03-04-2024 ambulatory [facility] Start: 01-19-2024 End: 01-19-2024 ambulatory [facility] Work Phone: Start: 01-19-2024 End: 01-19-2024 Patient encounter procedure [facility] Physician [facility] Care Work Phone: Start: 12-23-2023 End: 12-23-2023 ambulatory BUBBA GHOTRA Not Available Start: 11-26-2023 End: 11-26-2023 ambulatory BUBBA GHOTRA Not Available Start: 11-18-2023 End: 11-18-2023 ambulatory [facility] Work Phone: Start: 11-18-2023 End: 11-18-2023 Patient encounter procedure [facility] Physician [facility] Palliative Care Work Phone: Start: 09-17-2023 End: 09-17-2023 Patient encounter procedure [facility] Physician [facility] Care Work Phone: Start: 08-26-2023 End: 08-29-2023 Non-patient / Non-visit [facility] Work Phone: Start: 08-21-2023 End: 08-21-2023 ambulatory Mahnaz Ira Other [employer] Other Start: 08-21-2023 Telephone encounter Mahnaz [facility] Start: 07-22-2023 End: 07-22-2023 ambulatory Mahnaz Tuckerraw Other [employer] Other Start: 07-22-2023 Telephone encounter Mahnaz Tuckerraw [facility] Start: 06-24-2023 End: 06-24-2023 ambulatory Mahnaz Ira Other [employer] Other Start: 06-24-2023 Telephone encounter Mahnaz Tuckerraw [facility] Start: 05-28-2023 End: 05-28-2023 ambulatory Mahnaz Ira Other [employer] Other Start: 05-28-2023 Telephone encounter Mahnaz Ira [facility] Start: 05-19-2023 End: 05-19-2023 ambulatory Mahnaz Ira Other [employer] Other Start: 05-19-2023 Office outpatient vi sit 15 minutes Mahnaz Ira [facility] Start: 04-21-2023 End: 04-21-2023 ambulatory Mahnaz Ira Other [employer] Other Start: 04-21-2023 Office outpatient vi sit 15 minutes Mahnaz Ira [facility] Start: 04-07-2023 End: 04-07-2023 ambulatory Mahnaz Ira Other [employer] Other Start: 04-07-2023 Telephone encounter Mahnaz Ira [facility] Start: 04-02-2023 End: 04-02-2023 ambulatory Mahnaz Ira Other [employer] Other Start: 04-02-2023 Telephone encounter Mahnaz Ira [facility] Start: 04-01-2023 End: 04-01-2023 ambulatory Mahnaz Ira Other [employer] Other Start: 04-01-2023 Telephone encounter Mahnaz Ira [facility] Start: 03-25-2023 End: 03-25-2023 ambulatory Mahnaz Ira Other [employer] Other Start: 03-25-2023 Office outpatient ne w [...] Start: 09-16-2022 ambulatory LAMAR TURNER Facili ty:[facility] [place] Start: 06-26-2022 End: 06-27-[address] LISA [...] 12-24-2021 End: 12-25-2021 ambulatory Heri MURRELL Facility:[facility] [place] Start: 12-24-2021 End: 12-24-2021 Patient encounter procedure Gustavo Graves Jr. [facility] Start: 12-17-2021 End: 12-19-[address] DOCTOR BENNETT Facility:[facility] Start: 12-12-2021 End: 12-13-2021 ambulatory LAMAR TURNER Facility:[facility] Start: 12-05-2021 End: 12-06-2021 ambulatory Heri MURRELL Facility[facility] Start: 12-05-2021 End: 12-05-2021 Patient encounter procedure Gustavo Graves Jr. [facility] Start: 12-05-2021 ambulatory Heri MURRELL Facility :[facility] Start: 12-03-2021 End: 12-04-2021 ambulatory REBA BINH Facility:[facility] Start: 10-14-2021 End: 10-15-2021 ambulatory Heri MURRELL Facility:[facility] Start: 09-19-2021 ambulatory Heri MURRELL Facility :[facility] Start: 12-11-2017 End: 12-12-2017 Patient encounter procedure Tunde Das Facility:[facility] Procedures Date Procedure Procedure Detail Performing Clinician [...] Visit [facility] [address] [place] [address] Reba Posada PA [address] [place], [place] [id number] [facility] Start: 12-22-2024 Medicare Annual Well ness (AWV) Medicare Annual Wellness (AWV) [facility] Start: 11-01-2024 End: 11-01-2024 Patient encounter procedure 11/01/2024 4:30 PM EDT Office Visit [facility] [address] [facility] [address] [place] [address] Bubba Ghotra MD [address] [facility] [address] [place] [address] (Fax) Arrived [facility] Comment on above: Arrived Start: 09-28-2024 End: 09-28-2024 Patient encounter procedure [facility] [place] [address] Start: 09-28-2024 End: 09-28-2025 CBC W Auto Differential panel - Blood CBC auto differential Lab Routine Multiple sclerosis ([facility]) Expected: 09/28/2024 (Approximate), Expires: 09/28/2025 [facility] Comment on above: Expected: 09/28/2024 (Approximate), Expires: 09/28/2025 Start: 09-28-2024 End: 09-28-2025 Comprehensive metabolic 2000 panel - Serum or Plasma Comprehensive metabolic panel Lab Routine Multiple sclerosis ([facility]) Expected: 09/28/2024 (Approximate), Expires: 09/28/2025 [facility] Comment on above: Expected: 09/28/2024 (Approximate), Expires: 09/28/2025 Start: 09-28-2024 End: 09-28-2025 IgG [Mass/volume] in Serum or Plasma IgG Lab Routine Multiple sclerosis ([facility]) Expected: 09/28/2024 (Approximate), Expires: 09/28/2025 [facility] Work Phone: Comment on above: Expected: 09/28/2024 (Approximate), Expires: 09/28/2025 Start: 09-12-2024 End: 09-12-2024 Patient encounter procedure 09/12/2024 2:45 PM EST Consult [facility] [address] [place] [id number] Krishna Hernandez DO [address] [place] [address] [facility] Start: 08-18-2024 End: 08-18-2024 Patient encounter procedure 08/18/2024 3:30 PM EST Office Visit [facility] [address] [place] [address] Bubba Ghotra MD [address] [place] [address] [facility] Start: 07-11-2024 End: 07-11-2024 Patient encounter procedure [facility] Comment on above: Primary hypertension (CMS/HCC); Primary insomnia; Mixed hyperlipidemia (CMS/HCC); Protein-calorie malnutrition, moderate (CMS/HCC) Start: 06-07-2024 End: 06-07-2024 Patient encounter procedure 06/07/2024 3:40 PM EST Office Visit [facility] [place] [address] [place] [phone] Reba Posada PA [address] [place] [address] [facility] [place] [address] [facility] Start: 05-13-2024 End: 04-12-2025 Sodium [Moles/volume] in Serum or Plasma Sodium Lab Routine Multiple sclerosis (CMS/HCC) Expected: 05/13/2024 (Approximate), Expires: 04/12/2025 [facility] Work Phone: Comment on above: Expected: 05/13/2024 (Approximate), Expires: 04/12/2025 Start: 05-10-2024 End: 05-10-2024 Patient encounter procedure 05/10/2024 1:20 PM EDT Office Visit [facility] [place] [address] [place] [address] Reba Posada PA [address] [address] [place] [address] [facility] [place] [address] [facility] Start: 04-11-2024 End: 04-11-2024 Patient encounter procedure 04/11/2024 11:20 AM EDT Office Visit [facility] [place] [facility] [address] [place] [address] Reba Posada PA [address] [place] [address] [facility] [address] Start: 04-04-2024 End: 04-04-2024 Patient encounter procedure [facility] 100 Comment on above: Primary hypertension (CMS/HCC); Simple chronic bronchitis (CMS/HCC); Panlobular emphysema (CMS/HCC); Gastroesophageal reflux disease without esophagitis; Mixed hyperlipidemia (CMS/HCC); Former smoker; Polypharmacy; Underweight Start: 1970 Screening for malign ant neoplasm of colon [facility] Immunizations Immunization Date Immunization Notes Care Provider Fa alexa 10-22-2020 SARS-CoV-2 (COVID-19 ) mRNA BNT-162b2 vax Gustavo Graves Jr. [facility] 10-01-2020 SARS-CoV-2 (COVID-19 ) mRNA BNT-162b2 vax Gustavo Graves Jr. [facility] Payers Date Payer Category Payer Medicare (Managed Care) 1.2. [id number] 2024 Medicare [id number] 2019 Medicaid [id number] .[id number] 2003 Medicare [id number]. 1.13.693.2.7.3 .[id number] 1969 Unknown [id number] 2.16.840.1.865556.3.579.2.727 1969 Unknown [id number] 2.16.840.1.880931.3.579.2.727 1969 Unknown [id number] 2.16.840.1.561218.3.579.2.727 1969 Unknown [id number] 2.16.840.1.082950.3.579.2.727 1969 Unknown [id number] 2.16.840.1.429903.3.579.2.727 1969 Unknown [id number] 2.16.840.1.826779.3.579.2.593 1969 Unknown [id number] 2.16.840.1.093629.3.579.2.593 1969 Unknown [id number] 2.16.840.1.255583.3.579.2.593 1969 Unknown [id number] 2.16.840.1.027976.3.579.2.593 1969 Unknown [id number] 2.16.840.1.586766.3.579.2.593 1969 Unknown [id number] 2.16.840.1.629178.3.579.2.593 1969 Unknown [id number] 2.16.840.1.624450.3.579.2.593 1969 Unknown [id number] 2.16.840.1.203038.3.579.2.593 1969 Unknown [id number] 2.16.840.1.641288.3.579.2.593 1969 Unknown [id number] 2.16.840.1.642507.3.579.2.593 1969 Unknown [id number] 2.16.840.1.556676.3.579.2.593 1969 Unknown [id number] 2.16.840.1.072146.3.579.2.593 1969 Unknown [id number] 2.16.840.1.424596.3.579.2.593 1969 Unknown [id number] 2.16.840.1.829180.3.579.2.593 1969 Unknown [id number] 2.16.840.1.112863.3.579.2.593 1969 Unknown [id number] 2.16.840.1.815485.3.579.2.593 1969 Unknown [id number] 2.16.840.1.169392.3.579.2.593 1969 Unknown [id number] 2.16.840.1.226138.3.579.2.593 1969 Unknown [id number] 2.16.840.1.771839.3.579.2.593 1969 Unknown [id number] 2.16.840.1.851957.3.579.2.593 1969 Unknown [id number] 2.16.840.1.516125.3.579.2.128 6 1969 Unknown [id number] 2.16.840.1.740408.3.579.2.128 6 1969 Unknown [id number] 2.16.840.1.367153.3.579.2.125 9 1969 Unknown [id number] 2.16.840.1.626988.3.579.2.125 9 1969 Unknown [id number] 2.16.840.1.327311.3.579.2.125 9 1969 Unknown [id number] 2.16.840.1.533116.3.579.2.125 9 1969 Unknown [id number] 2.16.840.1.173850.3.579.2.125 9 1969 Unknown [id number] 2.16.840.1.743504.3.579.2.125 9 1969 Unknown [id number] 2.16.840.1.297119.3.579.2.125 9 1969 Unknown [id number] 2.16.840.1.779724.3.579.2.125 9 1969 Unknown [id number] 2.16.840.1.912085.3.579.2.125 9 1969 Unknown [id number] 2.16.840.1.601294.3.579.2.125 9 1960 Medicaid [id number] 1960 Medicare [id number] 1960 Self-pay Private Health Insurance Unknown HCAP/HFA/FAP Active [id number] Social History Date Type Detail Facility Start: 10-14-2021 End: 12-23-2023 Tobacco smoking status Ex-smoker (finding) [facility] Start: 12-01-2022 End: 01-23-2023 Sex Assigned At Male [facility] Start: 1970 Sex Assigned At Male [facility] Start: 08-18-2008 End: 08-18-2023 History [...] stat us NHIS Unknown if ever smoked [facility] Work Phone: Start: 08-23-2024 End: 11-07-2024 Sex Male (finding) [facility] Functional Status Date Assessment Result Facility 12-24-2021 Functional Status N/A [facility] Clinical Notes 12-05-2021 to 11-01-2024 Bubba Ghotra [...] if needed for opioid reversal. Nebulizers (Compressor/Nebulizer) [facility] Use 4 times per day regularly and [...] to visit. 1. COPD with acute exacerbation ([facility]) (Primary) Chronic problem with acute exacerbation. Historically [...] evaluation and management. documented in this encounter [facility] 10-24-2024 Telephone encount er Note You prescription sent [facility] 10-24-2024 Miscellaneous Notes Formattin g of this note might be different from the original. You prescription sent [facility] [employer] called back and stated that a PA [...] is being taken with the Abilify. ID# [id number] documented in this encounter [facility] 10-24-2024 Telephone encount er Note [facility] called back and stated that a PA does not need done if changes the script because it is a quantity issue. If he changes it to 100mg 0.5-1 tablet that should work with the extra after four hours of wakening. [facility] 10-20-2024 Telephone encount er Note They do not like the amount per day and that it is being taken with the Abilify. ID# [id number] [facility] 10-20-2024 Telephone encount er Note Prescription sent [facility] 10-20-2024 Miscellaneous Notes Formattin g of this note might be different from the original. Prescription sent Corinne from [facility] called, harish is in need of losartan (Cozaar) 100 MG metoprolol tartrate (Lopressor) 50 MG They are asking to be sent in by . They are filling his meds on Thursday. documented in this encounter [facility] 10-19-2024 Telephone encount er Note Corinne from [employer] called, harish is in need of losartan (Cozaar) 100 MG metoprolol tartrate (Lopressor) 50 MG They are asking to be sent in by . They are filling his meds on Thursday. [facility] 10-18-2024 Telephone encount er Note Please send Lyrica. I cannot get it to let me just decline the trileptal. Looks like we discontinued this last visit [facility] 10-18-2024 Miscellaneous Notes Formattin g of this note might be different from the original. Please send Lyrica. I cannot get it to let me just decline the trileptal. Looks like we discontinued this last visit documented in this encounter [facility] 09-28-2024 History of Presen t illness Narrative Subjective Harish Mckenna is a 54 y.o. year old male Chief Complaint Patient presents with Multiple Sclerosis Past Medical History: Diagnosis Date Anxiety Asthma ([facility]) Body mass index (BMI) of 21.0 to 21.9 in adult normal BMI BPH (benign prostatic hyperplasia) Cervical radiculopathy Cigarette smoker 12/01/2022 COPD (chronic obstructive pulmonary disease) ([facility]) ED (erectile dysfunction) Emphysema lung ([facility]) GERD (gastroesophageal reflux disease) Headache Herpes simplex 02/08/2008 Mononeuritis of lower limb 02/19/2012 MS (mitral stenosis) Multiple sclerosis ([facility]) 02/17/2008 Sleep disturbance 03/27/2011 Smoker Past Surgical History: Procedure Laterality Date KNEE SURGERY Left 04/2013 arthroscopy - Radha OTHER SURGICAL HISTORY 11/2021 [place]rol[place] procedure[place] [facility]. [place],CHOLECYSTECTOMY 11/16/2013 TONSILLECTOMY WISDOM TOOTH EXTRACTION Family [...] Review Audit Reviewed by Adia Laurent MA (Electrical Power Engineer) on 09/28/24 at 1417 Medication Order Taking? Sig Documenting Provider Last Dose Status albuterol (2.5 MG/3ML) 0.083% nebulizer solution [id number] Take 3 mL (2.5 mg) by nebulization every 6 (six) hours if needed for wheezing Bubba Ghotra MD 08/30/24 2359 ARIPiprazole (Abilify) 5 MG tablet [id number] No Take 5 mg by mouth Daily Historical Provider, Taking Active baclofen (Lioresal) 20 MG tablet [id number] Take 1 tablet (20 mg) by mouth in the morning and 1 tablet (20 mg) in the evening and 1 tablet (20 mg) before bedtime. GILSON James 08/30/24 2359 budesonide-formoterol (Symbicort) 160-4.5 MCG/ACT inhaler [id number] Inhale 2 puffs in the morning and 2 puffs before bedtime. Bubba Ghotra MD Active Cannabinoids (medical cannabis) [id number] No Take 1 each by mouth Daily as needed. Bubba Ghotra MD Taking Active clonazePAM (KlonoPIN) 1 MG tablet [id number] No Take 1 mg by mouth in the morning and 1 mg before bedtime. Taking Active Docusate Sodium (DSS) 100 MG capsule [id number] Take 2 capsules by mouth Daily Active DULoxetine (Cymbalta) [address] capsule [id number] No Take 2 capsules by mouth in the morning. Historical Provider, Taking Active ipratropium (Atrovent) 0.06 % nasal spray [id number] Administer 2 sprays into each nostril in the morning and 2 sprays before bedtime. Bubba Ghotra MD Active losartan (Cozaar) 100 MG tablet [id number] Take 1 tablet (100 mg) by mouth Daily Bubba Ghotra MD Active meclizine (Antivert) 25 MG tablet [id number] No Take 25 mg by mouth 3 (three) times a day as needed for nausea. Historical Provider, Taking Active metoprolol tartrate (Lopressor) 50 MG tablet [id number] Take 1.5 tablets (75 mg) by mouth in the morning and 1.5 tablets (75 mg) before bedtime. Bubba Ghotra MD Active naloxone (Narcan) 4 mg/0.1 mL nasal spray [id number] No Administer 4 mg into affected nostril(s) if needed for opioid reversal. Historical Provider, Taking Active Nebulizers (Compressor/Nebulizer) [facility] [id number] No Use 4 times per day regularly and every 4 hours as needed for shortness of breath and wheezing as directed Bubba Ghotra MD Taking Active Ocrevus 300 MG/10ML solution [id number] No Infuse into a venous catheter every 6 (six) months Bubba Ghotra MD Taking Active ondansetron ODT (Zofran-ODT) 4 MG disintegrating tablet [id number] Take 1 tablet (4 mg) by mouth every 8 (eight) hours if needed for nausea Bubba Ghotra MD Active OXcarbazepine (Trileptal) 300 MG tablet [id number] Take 1 tablet (300 mg) by mouth at bedtime GILSON James 08/30/24 6489 oxyCODONE (Roxicodone) 15 MG immediate release tablet [id number] Take 15 mg by mouth every 6 (six) hours if needed (pain) Bubba Ghotra MD Active oxygen (O2) gas [id number] No Inhale 2-3 L/min continuously via nasal canula Taking Active oxygen (O2) gas [id number] No Inhale oxygen via portable oxygen concentrator and nasal canula setting of 3 To maintain pulse ox saturation of 92% Bubba Ghotra MD Taking Active pantoprazole (ProtoNix) 40 MG EC tablet [id number] Take 1 tablet (40 mg) by mouth in the morning and 1 tablet (40 mg) before bedtime. Bubba Ghotra MD Active pregabalin (Lyrica) 200 MG capsule [id number] Take 1 capsule (200 mg) by mouth in the morning and 1 capsule (200 mg) in the evening and 1 capsule (200 mg) before bedtime. GILSON James 08/30/24 2359 primidone (Mysoline) 50 MG tablet [id number] Take 2 tablets (100 mg) by mouth at bedtime GILSON James 08/30/24 2359 promethazine (Phenergan) 25 MG tablet [id number] No Take 25 mg by mouth every 6 (six) hours if needed for nausea. Stan Blanchard MD Taking Active QUEtiapine (SEROquel) 50 MG tablet [id number] Take 1-2 tablets (50-100 mg) by mouth at bedtime May repeat in about 4 hours upon awakening Bubba Ghotra MD Active senna (Senokot) 8.6 MG tablet [id number] No Take 2 tablets by mouth 2 (two) times a day as needed for constipation Bubba Ghotra MD Taking Active sildenafil (Viagra) 100 MG tablet [id number] Take 1 tablet (100 mg) by mouth Daily as needed for erectile dysfunction Bubba Ghotra MD Active sodium chloride 0.9 % nebulizer solution [id number] Take 3 mL by nebulization every 4 (four) hours if needed for shortness of breath (and muus clearance) Bubba Ghotra MD Active spironolactone (Aldactone) 50 MG tablet [id number] Take 1 tablet (50 mg) by mouth [...] even hurts -follows with Palliative care at [facility], prescribed Oxycodone and was recently increased -tremors [...] triceps, wrist extensors, wrist extensors, wrist flexor, home lending officer strength 5/5. LUE Strength deltoid, biceps, triceps, wrist extensors, wrist extensors, wrist flexor, home lending officer strength 5/5. RLE Strength illopsoas, quadriceps, tibialis [...] all orders for this visit: Multiple sclerosis ([facility]) Neurogenic bladder History of RRMS which has [...] or worsening symptoms documented in this encounter [facility] 08-30-2024 History of Presen t illness Narrative Patient ID: Harish Mckenna is a 54 y.o. male who presents for: Urinary Incontinence This is a klzk-kl-nlod visit. Patient complains of urinary incontinence. This [...] if needed for opioid reversal. 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 I certify that I had a jnmg-nw-wogk encounter with this patient at [facility] office visit. Due to this medical condition the patient requires DME. I certify that based on my findings The DME ordered is medically necessary for this patient. This has been discussed with the patient and/or their patient services representative and mutually agreed upon. 2. Post-void [...] of weight on. documented in this encounter [facility] 08-10-2024 History of Presen t illness Narrative Images from the original note were not included. Patient ID: Harish Mckenna is a 54 y.o. male who presents for: This note is in error. Harish was unable to connect to the telemedicine visit. Due to technical difficulties the visit can not be deleted out of the system. documented in this encounter [facility] 07-21-2024 Telephone encount er Note I called the patient and he is still taking the Trileptal 1 po at bedtime. [facility] 07-21-2024 Miscellaneous Notes Formattin g of [...] if symptoms worsen. documented in this encounter [facility] 07-21-2024 Telephone encount er Note Please advise on Primidone Rx before sending. The last office visit just mentions 2 po at bedtime but the last refill sent is 1 po qam, 2 po at bedtime. Also his last office visit said to stop Trileptal and to resume if symptoms worsen. 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 Nebulizers (Compressor/Nebulizer) [facility] Use 4 times per day regularly and [...] evaluation and management. documented in this encounter [facility] 06-24-2024 Telephone encount er Note RX sent [facility] 06-24-2024 Miscellaneous Notes Formattin g of this note might be different from the original. RX sent documented in this encounter [facility] 06-22-2024 Telephone encount er Note PATIENT CALLS ASKING FOR ANOTHER REFILL OF VALIUM FOR HIS MRI FOR TOMORROW. HIS MRI IS AT 2:30 PM ON 06/23/2024 BUT HAS TO LEAVE BY 2:00... ARE YOU ABLE TO SEND THIS IN FOR HIM? # [phone] [facility] 06-22-2024 Miscellaneous Notes Formattin g of this note might be different from the original. PATIENT CALLS ASKING FOR ANOTHER REFILL OF VALIUM FOR HIS MRI FOR TOMORROW. HIS MRI IS AT 2:30 PM ON 06/23/2024 BUT HAS TO LEAVE BY 2:00... ARE YOU ABLE TO SEND THIS IN FOR HIM? CB # [phone] documented in this encounter [facility] 05-16-2024 History of Presen t illness Narrative Pt lm, requests rx for Seroquel documented in this encounter [facility] 04-15-2024 History of Presen t illness Narrative SW spoke to pt, needs rx for Spironolactone. documented in this encounter [facility] 04-04-2024 History of Presen t illness [...] on healthy diet. documented in this encounter [facility] 03-23-2024 Telephone encount er Note Pharmacy requesting refills of primidone and lyrica. Pt last seen 07/09/2023. No appt scheduled. Would you like to fill medication. Please advise. [facility] 03-23-2024 Miscellaneous Notes Formattin g of this note might be different from the original. Pharmacy requesting refills of primidone and lyrica. Pt last seen 07/09/2023. No appt scheduled. Would you like to fill medication. Please advise. documented in this encounter [facility] 08-21-2023 Evaluation note Encounter Date Diagnosis Assessment Notes Aug, Chronic pain (ICD-10 - G89.29) OARRS reviewed, consistent with Rx. MME 60 mg/day [employer] Other 01-10-2024 Evaluation note* Encounter Date Diagnosis Assessment Notes Treatment Notes Treatment Clinical Notes Jul, Chronic pain (ICD-10 - G89.29) OARRS reviewed, consistent with Rx. Also has benzo prescribed by [facility] and pregabalin by neurology [employer] Other 12-13-2023 Evaluation note* Encounter Date Diagnosis Assessment Notes Treatment Notes Treatment Clinical Notes Jun, Chronic pain (ICD-10 - G89.29) [employer] Other 11-16-2023 Evaluation note* Encounter Date Diagnosis Assessment Notes Treatment Notes Treatment Clinical Notes May, Chronic pain (ICD-10 - G89.29) OARRS reviewed, consistent with Rx [employer] Other 11-07-2023 Evaluation note* Encounter Date Diagnosis [...] at bedtime instead of using PRN only [employer] Other 10-10-2023 Evaluation note* Encounter Date Diagnosis Assessment Notes Treatment Notes Treatment Clinical Notes Apr, Chronic pain (ICD-10 - G89.29) OARRS reviewed, consistent with Rx. Harish reports some relief with oxycodone 10 mg tabs, and is using med 3-4x/daily. Continue same without change. Apr, Constipation (ICD-10 - K59.00) Improved elimination with daily use of senna [employer] Other 09-26-2023 Evaluation note* Encounter Date Diagnosis [...] reported some lose stools after using routinely [employer] Other 09-20-2023 Evaluation note* Encounter Date Diagnosis Assessment Notes Treatment Notes Treatment Clinical Notes Mar, Chronic pain (ICD-10 - G89.29) OARRS reviewed, consistent with recent Rx. Increasing frequency of oxycodone to q6h PRN to improve pain control. Mar, Constipation (ICD-10 - K59.00) Harish is using Miralax daily but remains constipated, will add stimulant laxative [employer] Other 09-13-2023 Evaluation note* Encounter Date Diagnosis [...] of Constipation hand out provided to patient [employer] Other 04-06-2023 NoteCONSULTATION CONSULTATION DATE: 10/16/2022 TO: [...] 25 mg daily, Lyrica 200 mg t.i.d., Mill[place] 7.5 mg b.i.d. He currently uses medical [...] THC if we are to continue with Millerton. However, at this point, I do not [...] our patients to inform us about any ldsr-eeg-putvfty medications or herbal remedies/nutritional supplements/alternative remedies. 2. [...] treatment options with their primary care provider.[id number] Note CONSULTATION CONSULTATION DATE: 06/26/2022 HISTORY OF [...] Lyrica 200 mg t.i.d. per his neurologist, Millerton 7.5/325 b.i.d., Cymbalta, baclofen and Ocrevus. Patient's [...] medication changes today. He was increased to [place] 7.5/325 at his last visit, and the patient feels it is somewhat helpful. We will continue to medically manage him only. Patient will be seen in the clinic in three months' time unless otherwise indicated.[facility] [id number] NoteCONSULTATION CONSULTATION DATE: 03/13/2022 HISTORY OF PRESENT ILLNESS: This is 51-year-old gentleman, well known to the [facility], returning for a three month follow up. This gentleman has history of MS, chronic pain syndrome and diffuse neuropathic pain, which is chronically medically managed with a medication regimen. Current medications include Mobic 15 mg daily, Lyrica 200 mg t.i.d., [place] 5/325 t.i.d., baclofen, Trileptal and amitriptyline. Patient recently suffered a family loss and reportedly has lost about 12 pounds in weight. He does ambulate with a cane and is stable with that. He is requesting today that we change his Millerton from t.i.d. to 7.5 b.i.d. as he [...] pain. PLAN: We will check from his Mill[place] 5/325 t.i.d. to 7.5/325 b.i.d. We will maintain his other medications with no dose or frequency change. He will be given a U-Tox in the clinic today. I did discuss vitamin importance as well as supplementing his protein intake with Boost supplements. We will see the patient in three months' time, unless otherwise indicated. Patient is in agreement to this.[facility] [id number] Hospital Discharge instructions Patient Education 12/24/2021 10:47:00 [...] including vitamins, herbs, eye drops, creams, and qhyr-ysz-ssqiivx medicines. This also includes: ?Medicines to assist [...] 08/01/2005 Document Revised: 06/11/2018 Document Reviewed: 04/05/2018 [employer] Patient Education 2020 [employer]. Follow Up Care 12/05/2021 14:04:21 With:Star Manley MD, Gustavo Orlando [facility] Address: [facility] [address], [place] [address]- When:Within 6 Month(s) Comments:w/ PVR [facility] 05-26-2022 Note [id number]:127[facility] 12-05-2021 NoteUrolift ? Some men may [...] personnel to use a Coude (pronouncedcoo-day) tipped catheter.[facility]05-26-2022 Hospital Discharge instructions Patient Education 12/05/2021 [...] [facility] [address], [place] [address]- Business (1) When:2 to 4 weeks Comments:PVR with next visit [facility] Future Appointments Appointment Date:12/24/2021 09:30:00 AM Scheduled Provider:Gustavo Graves Jr., MD Location:[facility] Appointment Type:URO [facility] Future Appointments Appointment Date:07/01/2022 10:45:00 AM Scheduled Provider:Gustavo Graves Jr., MD Location:[facility] Appointment Type:URO Office Visit [facility] evaluation noteNo [employer] Other evaluation note* Diagnosis Onset Date Resolution Status Chronic pain acute Constipation acute assisted (current) use of opiate analgesic acute Multiple sclerosis [facility] Work Phone: evaluation note* Diagnosis Onset Date Resolution Status Chronic pain acute Constipation acute Multiple sclerosis [facility] Work Phone: evaluation note* Diagnosis Multiple [...] pain syndrome acute Constipation acute Multiple sclerosis [facility] Work Phone: Evaluation note* Diagnosis Insomnia, [...] this encounter [facility] noteNo assessment [facility] Work Phone: Evaluation note* Diagnosis Urinary incontinence [...] bipolar Medical History GERD Surgical History cholecystectomy [employer] Other Hospital course Narrative No data available for this section [facility] No data available for this section [facility] [place] Summary Purpose Family History Relationship Condition Age [...] f/u Reason for Visit Chronic pain Constipation intermediate project 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 (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) use of opiate analgesic Multiple sclerosis [...] section and content) DATE CREATED AUTHOR 09/18/2018 [facility] DATE CREATED AUTHOR AUTHOR'S ORGANIZ ATION 01/25/2021 [facility] DATE CREATED AUTHOR AUTHOR'S ORGANIZ ATION 09/16/2022 Alberton Bartolo [facility] DATE CREATED AUTHOR AUTHOR'S ORGANIZ ATION 11/18/2022 [facility] [place] [facility] DATE CREATED AUTHOR AUTHOR'S ORGANIZ ATION 09/16/2024 [facility] DATE CREATED AUTHOR AUTHOR'S ORGANIZ ATION 11/02/2024 [facility] EPIC Care Team (unrecognized sect [...] September 17, 2023 End: September 17, 2023 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 Start Date End Date Bubba Ghotra MD [address] [facility] [place] [address] (Fax) PCP - General Family Medicine 11/27/22 Bubba Ghotra MD [address] [facility] [place] [address] (Fax) PCP - ACO Reach 12/04/22 Elaina Burgess PA [address] [place] [address] Physician Countersinker Balance [employer] [facility] Neurology 12/02/23 Kenna Lockett, GRAHAM Registered Nurse Family Medicine 12/02/23 Maty Win MD [address] [place] [address] Referring Physician [facility] 12/02/23 Team Status: Inactive Member Role Status Dates Bubba Ghotra MD Primary Care Provider Active Start: April 14, 2024 End: April 14, 2024 Mahnaz Roth APRN Attending Provider Active Start: April 14, 2024 End: April 14, 2024 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 Start Date End Date Bubba Ghotra MD [address] [facility] [place] [address] (Fax) PCP - General Family Medicine 11/27/22 Bubba Ghotra MD [address] [facility] [place] [address] (Fax) PCP - ACO Reach 12/04/22 Elaina Burgess PA [address] [place] [address] Physician Countersinker Balance Screw Hole Neurology 12/02/23 Kenna Lockett RN Registered Nurse Family Medicine 12/02/23 Maty iWn MD [address] [place] [address] Referring Physician Behavioral Health 12/02/23 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 Start Date End Date Bubba Ghotra MD [address] [place] [address] (Fax) PCP - General Family Medicine 11/27/22 Bubba Ghotra MD [address] [place] [address] (Fax) PCP - ACO Reach 12/04/22 Elaina Burgess PA [address] [place] [phone] Physician Countersinker Balance Screw Hole Neurology 12/02/23 Kenna Lockett, RN Registered Nurse Family Medicine 12/02/23 Maty Win MD [address] [place] [address] Referring Physician [facility] 12/02/23 Team Status: Inactive Member Role Status Dates Bubba Ghotra MD Primary Care Provider Active Start: May 10, 2024 End: May 10, 2024 Mahnaz Roth APRN Attending Provider Active Start: May 10, 2024 End: May 10, 2024 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 Start Date End Date Bubba Ghotra MD [address] [address] (Fax) PCP - General Family Medicine 11/27/22 Bubba Ghotra MD [address] [address] (Fax) PCP - ACO Reach 12/04/22 Elaina Burgess PA [address] [place] [address] Physician Countersinker Balance Screw Hole Neurology 12/02/23 Kenna Lockett, RN Registered Nurse Family Medicine 12/02/23 Maty Win MD [address] [place], [place] [phone] Referring Physician Behavioral Health 12/02/23 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 Start Date End Date Bubba Ghotra MD [address] [place] [address] (Fax) PCP - General Family Medicine 11/27/22 Bubba Ghotra MD [address] [place] [address] (Fax) PCP - ACO Reach 12/04/22 Elaina Burgess PA [address] [place], [place] [phone] Physician Countersinker Balance Screw Hole Neurology 12/02/23 Kenna Lockett, RN Registered Nurse Family Medicine 12/02/23 Maty Win MD [address] [place] [phone] Referring Physician Behavioral Health 12/02/23 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 Start Date End Date Bubba Ghotra MD [address] [place] [address] (Fax) PCP - General Family Medicine 11/27/22 Bubba Ghotra MD [address] [place] [address] (Fax) PCP - ACO Reach 12/04/22 Elaina Burgess PA [address] [place], [place] [phone] Physician Countersinker Balance Screw Hole Neurology 12/02/23 Kenna Lockett, RN Registered Nurse Family Medicine 12/02/23 Maty Win MD [address] [place] [address] Referring Physician Behavioral Health 12/02/23 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 Start Date End Date Bubba Ghotra MD [address] [place] [address] (Fax) PCP - General Family Medicine 11/27/22 Bubba Ghotra MD [address] [place] [address] (Fax) PCP - ACO Reach 12/04/22 Elaina Burgess PA [address] [facility] [address] [place], [place] [phone] Physician Countersinker Balance Screw Hole Neurology 12/02/23 Kenna Lockett, RN Registered Nurse Family Medicine 12/02/23 Maty Win MD [address] [place] [address] Referring Physician Behavioral Health 12/02/23 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 Start Date End Date Bubba Ghotra MD [address] [place] [address] (Fax) PCP - General Family Medicine 11/27/22 Bubba Ghotra MD [address] [place] [address] (Fax) PCP - ACO Reach 12/04/22 Elaina Burgess PA [address] [place] [address] Physician Countersinker Balance Screw Hole Neurology 12/02/23 Kenna Lockett, GRAHAM Registered Nurse Family Medicine 12/02/23 Maty Win MD [address] [place] [address] Referring Physician Behavioral Health 12/02/23 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 Start Date End Date Bubba Ghotra MD [address] [place] [address] (Fax) PCP - General Family Medicine 11/27/22 Bubba Ghotra MD [address] [place] [address] (Fax) PCP - ACO Reach 12/04/22 Elaina Burgess PA [address] [place] [address] Physician Countersinker Balance Screw Hole Neurology 12/02/23 Kenna Lockett, GRAHAM Registered Nurse Family Medicine 12/02/23 Maty Win MD [address] [place] [address] Referring Physician Behavioral Health 12/02/23 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 Start Date End Date Bubba Ghotra MD [address] [place] [address] (Fax) PCP - General Family Medicine 11/27/22 Bubba Ghotra MD [address] [facility] [address] [place] [address] (Fax) PCP - ACO Reach 12/04/22 Elaina Burgess PA [address] [place] [address] Physician Countersinker Balance Screw Hole Neurology 12/02/23 Kenna Lockett, RN Registered Nurse Family Medicine 12/02/23 Maty Win MD [address] [place] [address] Referring Physician Behavioral Health 12/02/23 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 Start Date End Date Bubba Ghotra MD [address] [place] [address] (Fax) PCP - General Family Medicine 11/27/22 Bubba Ghotra MD [address] [place] [address] (Fax) PCP - ACO Reach 12/04/22 Elaina Burgess PA [address] [place] [phone] Physician Countersinker Balance Screw Hole Neurology 12/02/23 Kenna Lockett, RN Registered Nurse Family Medicine 12/02/23 Maty Win MD [address] [place] [address] Referring Physician Behavioral Health 12/02/23 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 Start Date End Date Bubba Ghotra MD [address] [place] [address] (Fax) PCP - General Family Medicine 11/27/22 Bubba Ghotra MD [address] [place] [address] (Fax) PCP - ACO Reach 12/04/22 Elaina Burgess PA [address] [place] [address] Physician Countersinker Balance Screw Hole Neurology 12/02/23 Kenna Lockett, GRAHAM Registered Nurse Family Medicine 12/02/23 Maty Win MD [address] [place] [address] Referring Physician Behavioral Health 12/02/23 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 Start Date End Date Bubba Ghotra MD [address] [place] [address] (Fax) PCP - General Family Medicine 11/27/22 Bubba Ghotra MD [address] [place] [address] (Fax) PCP - ACO Reach 12/04/22 Elaina Burgess PA [address] [address] Physician Countersinker Balance Screw Hole Neurology 12/02/23 Kenna Lockett, RN Registered Nurse Family Medicine 12/02/23 Maty Win MD [address] [place] [address] Referring Physician Behavioral Health 12/02/23 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 Start Date End Date Bubba Ghotra MD [address] [place] [address] (Fax) PCP - General Family Medicine 11/27/22 Bubba hGotra MD [address] [place] [address] (Fax) PCP - ACO Reach 12/04/22 Elaina Burgess PA [address] [place] [address] Physician Countersinker Balance Screw Hole Neurology 12/02/23 Kenna Lockett, GRAHAM Registered Nurse Family Medicine 12/02/23 Maty Win MD [address] [place] [address] Referring Physician Behavioral Health 12/02/23 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 Start Date End Date Bubba Ghotra MD [address] [place] [address] (Fax) PCP - General Family Medicine 11/27/22 Bubba Ghotra MD [address] [place] [address] (Fax) PCP - ACO Reach 12/04/22 Elaina Burgess PA [address] [place] [address] Physician Countersinker Balance Screw Hole Neurology 12/02/23 Kenna Lockett, RN Registered Nurse Family Medicine 12/02/23 Maty Win MD [address] [place] [address] Referring Physician Behavioral Health 12/02/23 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 Start Date End Date Bubba Ghotra MD [address] [place] [address] (Fax) PCP - General Family Medicine 11/27/22 Bubba Ghotra MD [address] [place] [address] (Fax) PCP - ACO Reach 12/04/22 Elaina Burgess PA [address] [place] [address] Physician Countersinker Balance Screw Hole Neurology 12/02/23 Kenna Lockett, RN Registered Nurse Family Medicine 12/02/23 Maty Win MD [address] [place] [address] Referring Physician Behavioral Health 12/02/23 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 Start Date End Date Bubba Ghotra MD [address] [place] [address] (Fax) PCP - General Family Medicine 11/27/22 Bubba Ghotra MD [address] [place] [address] (Fax) PCP - ACO Reach 12/04/22 Elaina Burgess PA [address] [place] [address] Physician Countersinker Balance Screw Hole Neurology 12/02/23 Kenna Lockett, RN Registered Nurse Family Medicine 12/02/23 Maty Win MD [address] [place] [address] Referring Physician Behavioral Health 12/02/23 Team Status: Inactive Member Role Status Dates Bubba Ghotra MD Primary Care Provider Active Start: August 23, 2024 End: August 23, 2024 Mahnaz Roth APRN Attending Provider Active Start: August 23, 2024 End: August 23, 2024 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 Start Date End Date Bubba Ghotra MD [address] [facility] [address] [place] [address] (Fax) PCP - General Family Medicine 11/27/22 Bubba Ghotra MD [address] [address] (Fax) PCP - ACO Reach 08/26/24 Elaina Burgess PA [address] [place] [phone] Physician Countersinker Balance Screw Hole Neurology 12/02/23 Kenna Lockett, RN Registered Nurse Family Medicine 12/02/23 Maty Win MD [address] [place] [address] Referring Physician Behavioral Health 12/02/23 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 Start Date End Date Bubba Ghotra MD [address] [address] (Fax) PCP - General Family Medicine 11/27/22 Bubba Ghotra MD [address] [address] (Fax) PCP - ACO Reach 08/26/24 Elaina Burgess PA [address] [place] [address] Physician Countersinker Balance Screw Hole Neurology 12/02/23 Kenna Lockett, GRAHAM Registered Nurse Family Medicine 12/02/23 Maty Win MD Referring Physician Behavioral Health 12/02/23 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 Start Date End Date Bubba Ghotra MD [address] [place] [address] (Fax) PCP - General Family Medicine 11/27/22 Elaina Burgess PA [address] [place] [address] Physician Countersinker Balance Screw Hole Neurology 12/02/23 Kenna Lockett RN Registered Nurse Family Medicine 12/02/23 Maty Win MD Referring Physician Behavioral Health 12/02/23 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 Start Date End Date Bubba Ghotra MD [address] [place] [address] (Fax) PCP - General Family Medicine 11/27/22 Elaina Burgess PA [address] [place] [address] Physician Countersinker Balance Screw Hole Neurology 12/02/23 Kenna Lockett RN Registered Nurse Family Medicine 12/02/23 Maty Win MD Referring Physician Behavioral Health 12/02/23 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 Start Date End Date Bubba Ghotra MD [address] [place] [address] PCP - General Family Medicine 11/27/22 Elaina Burgess PA [address] [place] [address] Physician Countersinker Balance Screw Hole Neurology 12/02/23 Kenna Lockett, RN Registered Nurse Family Medicine 12/02/23 Maty Win MD Referring Physician Behavioral Health 12/02/23 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 [facility] [id number] [facility]. provides no warranty or guarantee of the accuracy or completeness of information in this document.
--- OUTSIDE RECORDS SUMMARY | 2024-11-20 09:32 | XMS_ITS | CCD ---
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 (2 sources) PARoxetine Drug Allergy 3 [facility] (12 sources) venlafaxine Drug Allergy 3 Unknown [facility] (20 sources) venlafaxine Drug Allergy 3 Unknown Reaction [facility] (20 sources) PARoxetine Drug Allergy 2 Rash [...] procedure., # 14 tab(s), Refills(s) 0, Pharmacy: 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] Onset: 1 12-01-2022 Episodic [...] [Moles/Vol] 144 mmol/L 136 - 145 mmol/L [facility] ALL CBC WITH AUTO DIFFon BASOPHILS ABSOLUTE AUTO 0.1 [facility] Basophils/100 WBC (Bld) 1.9 % 0.2 - 2.0 % [facility] Eosinophils/100 WBC (Bld) 1.6 % 0.9 - 7.0 % [facility] Erythrocyte distribution width (RBC) [Ratio] 13.2 % 11.0 - 15.0 % [facility] Hematocrit (Bld) [Volume fraction] 41.1 % Low 42.0 - 54.0 % [facility] Hemoglobin (Bld) [Mass/Vol] 13.9 g/dL Low 14.0 - 18.0 g/dL [facility] IMMATURE GRANULOCYTES ABS AUTO 0.03 [facility] Immature granulocytes/100 WBC (Bld) 0.4 % 0.0 - 0.5 % [facility] Interpretation and review of laboratory results Abnormal [facility] LYMPHOCYTES ABSOLUTE AUTO 1.7 [facility] Lymphocytes/100 WBC (Bld) 22.8 % 20.5 - 60.0 % [facility] MCH (RBC) [Entitic mass] 29.8 pg 25.9 - 34.0 pg [facility] MCHC (RBC) [Mass/Vol] 33.8 g/dL 29.9 - 35.2 g/dL [facility] MCV (RBC) [Entitic vol] 88.2 fL 80.0 - 94.0 fL [facility] MONOCYTES ABSOLUTE AUTO 0.5 [facility] Monocytes/100 WBC (Bld) 6.2 % 1.7 - 12.0 % [facility] NEUTROPHILS ABSOLUTE AUTO 5.0 [facility] Neutrophils/100 WBC (Bld) 67.1 % 43.0 - 75.0 % [facility] Platelet mean volume (Bld) [Entitic vol] 9.3 fL Low 9.5 - 13.5 fL [facility] TBH EO # 0.1 [facility] PLT [address] [facility] RBC 4.66 Low [facility] WBC 7.4 [facility] AMYLASEon 11-13-2022 Amylase [Catalytic activity/Vol] 37 U/L Normal 25-115 [facility] Comment on above: Performed By: #### A MY, CMP, LIPA ####[facility] [address] [address]Dr. Cortez Younger CBC AUTO DIFFon 11-13-2022 BASO # 0.1 103/ul Normal 0.0-0.1 [facility] Comment on above: Performed By: #### C BC #### [facility] [address] [address] [address] Cortez Younger Basophils/100 WBC (Bld) 1.3 % Normal 0.2-2.0 [facility] Comment on above: Performed By: #### C BC #### [facility] [address] [address] [address] Cortez Younger EO # 0.1 103/ul Normal 0.0-0.7 [facility] Comment on above: Performed By: #### C BC #### [facility] [address] [address] [address] Cortez Younger Eosinophils/100 WBC (Bld) 0.9 % Normal 0.9-7.0 [facility] Comment on above: Performed By: #### C BC #### [facility] [address] [address] [address] Cortez Younger Erythrocyte distribution width (RBC) [Ratio] 12.5 % Normal 11.0-15.0 [facility] Comment on above: Performed By: #### C BC #### [facility] [address] [place] [address] Dr. Cortez Younger Hematocrit (Bld) [Volume fraction] 42.3 % Normal 42.0-54.0 [facility] Comment on above: Performed By: #### C BC #### [facility] [address] [place] [address] Dr. Cortez Younger Hemoglobin (Bld) [Mass/Vol] 15.1 g/dL Normal 14.0-18.0 [facility] Comment on above: Performed By: #### C BC #### [facility] [address] [place] [address] Dr. Cortez Younger IG # 0.04 10e3/ul Critically high 0.00-0.03 [facility] Comment on above: Performed By: #### C BC #### [facility] [address] [place] [address] Dr. Cortez Younger IG % 0.6 % Critically high 0.0-0.5 [facility] Comment on above: Performed By: #### C BC #### [facility] [address] [place] [address] Dr. Cortez Younger LYMPH # 1.4 103/ul Normal 1.2-3.8 [facility] Comment on above: Performed By: #### C BC #### [facility] [address] [place] [address] Dr. Cortez Younger Lymphocytes/100 WBC (Bld) 20.7 % Normal 20.5-60.0 [facility] Comment on above: Performed By: #### C BC #### [facility] [address] [place] [address] Dr. Cortez Younger MANUAL DIFF REQ NO Normal [facility] Comment on above: Performed By: #### C BC #### [facility] [address] [place] [address] Dr. Cortez Younger MCH (RBC) [Entitic mass] 31.6 pg Normal 25.9-34.0 [facility] Comment on above: Performed By: #### C BC #### [facility] [address] [place] [address] Dr. Cortez Younger MCHC (RBC) [Mass/Vol] 35.7 g/dL Critically high 29.9-35.2 [facility] Comment on above: Performed By: #### C BC #### [facility] [address] [place] [address] Dr. Cortez Younger MCV (RBC) [Entitic vol] 88.5 fL Normal 80.0-94.0 [facility] Comment on above: Performed By: #### C BC #### [facility] [address] [place] [address] Dr. Cortez Younger MONO # 0.5 103/ul Normal 0.3-0.8 [facility] Comment on above: Performed By: #### C BC #### [facility] [address] [place] [address] Dr. Cortez Younger Monocytes/100 WBC (Bld) 7.7 % Normal 1.7-12.0 [facility] Comment on above: Performed By: #### C BC #### [facility] [address] [place] [address] Dr. Cortez Younger NEUT # 4.8 103/ul Normal 1.4-6.5 [facility] Comment on above: Performed By: #### C BC #### [facility] [address] [place] [address] Dr. Cortez Younger Neutrophils/100 WBC (Bld) 68.8 % Normal 43.0-75.0 [facility] Comment on above: Performed By: #### C BC #### [facility] [address] [place] [address] Dr. Cortez Younger Platelet mean volume (Bld) [Entitic vol] 9.0 fL Critically low 9.5-13.5 [facility] Comment on above: Performed By: #### C BC #### [facility] [address] [place] [address] Dr. Cortez Younger PLT 384 103/ul Normal 150-450 [facility] Comment on above: Performed By: #### C BC #### [facility] [address] [place] [address] Dr. Cortez Younger RBC 4.78 106/ul Normal 4.70-6.10 [facility] Comment on above: Performed By: #### C BC #### [facility] [address] [address] [address] Cortez Younger WBC 7.0 103/ul Normal 4.0-11.0 [facility] Comment on above: Performed By: #### C BC #### [facility] [address] [address] [address] Cortez Younger ER URINE PROFILEon 3 Bilirubin Ql (U) Negative Normal NEGATIVE [facility] Comment on above: Performed By: #### E RUR ####[facility] [address] [place], [place] [address]Dr. Cortez Younger Clarity (U) CLEAR Normal CLEAR [facility] Comment on above: Performed By: #### E RUR ####[facility] [address] [place], [place] [address]Dr. Cortez Younger Color (U) LT. YELLOW Normal YELLOW [facility] Comment on above: Performed By: #### E RUR ####[facility] [address] [place], [place] [address]Dr. Cortez Younger ERUAHD A micrscopic examina tion will be performed if indicated. Normal [facility] Comment on above: Performed By: #### E RUR ####[facility] [address] [address]Dr. Cortez Younger Glucose Ql (U) Negative Normal NEGATIVE The [facility] Comment on above: Performed By: #### E RUR ####[facility] [address] [place], [place] [address]Dr. Cortez Younger Hemoglobin Ql (U) Negative Normal NEGATIVE The [facility] Comment on above: Performed By: #### E RUR ####[facility] [address] [address]Dr. Cortez Younger Ketones Ql (U) Negative Normal NEGATIVE [facility] Comment on above: Performed By: #### E RUR ####[facility] [address] [address]Dr. Cortez Younger LEUKOCYTES Negative Normal NEGATIVE [facility] Comment on above: Performed By: #### E RUR ####[facility] [address] [address]Dr. Cortez Younger Nitrite Ql (U) Negative Normal NEGATIVE The [facility] Comment on above: Performed By: #### E RUR ####[facility] [address] [place], [place] [address]Dr. Cortez Younger pH (U) 7.5 [pH] Normal 5-9 [facility] Comment on above: Performed By: #### E RUR ####[facility] [address] [place], [place] [address]Dr. Cortez Younger SPEC GRAVITY <=1.005 Abnormal 1.005-<=1.025 [facility] Comment on above: Performed By: #### E RUR ####[facility] [address] [place], [place] [address]Dr. Cortez Younger UA PROTEIN Negative Normal NEGATIVE/ TRACE [facility] Comment on above: Performed By: #### E RUR ####[facility] [address] [place], [place] [address]Dr. Cortez Younger UR MICRO IND NOT INDICATED Normal [facility] Comment on above: Performed By: #### E RUR ####[facility] [address] [place], [place] [address]Dr. Cortez Younger Urobilinogen Qn (U) 0.2 {Fidelia'U}/dL Normal 0.2 - 1.0 [facility] Comment on above: Performed By: #### E RUR ####[facility] [address] [place], [place] [address]Dr. Cortez Younger LIPASEon 11-13-2022 Lipase [Catalytic activity/Vol] 111.0 U/L Normal 73.0-393.0 [facility] Comment on above: Performed By: #### A MY, CMP, LIPA ####[facility] [address] [address]Dr. Cortez Younger PROF 14(COMP METB)on 023 Albumin [Mass/Vol] 3.9 g/dL Normal 3.4-5.0 [facility] Comment on above: Performed By: #### A MY, CMP, LIPA ####[facility] [address] [address]Dr. Cortez Younger Albumin/Globulin [Mass ratio] 1.4 {ratio} Normal [facility] Comment on above: Performed By: #### A MY, CMP, LIPA ####[facility] [address] [address]Dr. Cortez Younger ALP [Catalytic activity/Vol] 70 U/L Normal 46-116 [facility] Comment on above: Performed By: #### A MY, CMP, LIPA ####[facility] [address] [address]Dr. Cortez Younger ALT [Catalytic activity/Vol] 24 U/L Normal 16-63 [facility] Comment on above: Performed By: #### A MY, CMP, LIPA ####[facility] [address] [address]Dr. Cortez Younger Anion gap [Moles/Vol] 9.8 mmol/L Normal [facility] Comment on above: Performed By: #### A MY, CMP, LIPA ####[facility] [address] [address]Dr. Cortez Younger AST [Catalytic activity/Vol] 12 U/L Critically low 15-37 [facility] Comment on above: Performed By: #### A MY, CMP, LIPA ####[facility] [address] [address]Dr. Cortez Younger Bilirubin [Mass/Vol] 0.3 mg/dL Normal 0.2-1.0 [facility] Comment on above: Performed By: #### A MY, CMP, LIPA ####[facility] [address] [address]Dr. Cortez Younger Calcium [Mass/Vol] 9.2 mg/dL Normal 8.5-10.1 [facility] Comment on above: Performed By: #### A MY, CMP, LIPA ####[facility] [address] [address]Dr. Cortez Younger Chloride [Moles/Vol] 98 mmol/L Normal 98-107 [facility] Comment on above: Performed By: #### A MY, CMP, LIPA ####[facility] [address] [place], [place] [address]Dr. Cortez Younger CO2 [Moles/Vol] 28.7 mmol/L Normal 21.0-32.0 [facility] Comment on above: Performed By: #### A MY, CMP, LIPA ####[facility] [address] [place], [place] [address]Dr. Cortez Younger Creatinine [Mass/Vol] 0.88 mg/dL Normal 0.70-1.30 [facility] Comment on above: Performed By: #### A MY, CMP, LIPA ####[facility] [address] [place], [place] [address]Dr. Cortez Younger EGFR-AF BELGIAN >60 Normal >=60 [facility] Comment on above: Performed By: #### A MY, CMP, LIPA ####[facility] [address] [place], [place] [address]Dr. Cortez Younger EGFR-NON AF BELGIAN >60 Normal >=60 [facility] Comment on above: Performed By: #### A MY, CMP, LIPA ####[facility] [address] [place], [place] [address]Dr. Cortez Younger Globulin (S) [Mass/Vol] 2.7 g/dL Normal [facility] Comment on above: Performed By: #### A MY, CMP, LIPA ####[facility] [address] [place], [place] [address]Dr. Cortez Younger Glucose [Mass/Vol] 105 mg/dL Normal 74-106 [facility] Comment on above: Performed By: #### A MY, CMP, LIPA ####[facility] [address] [address]Dr. Cortez Younger Potassium [Moles/Vol] 3.5 mmol/L Normal 3.5-5.1 [facility] Comment on above: Performed By: #### A MY, CMP, LIPA ####[facility] [address] [address]Dr. Cortez Younger Protein [Mass/Vol] 6.6 g/dL Normal 6.4-8.2 [facility] Comment on above: Performed By: #### A MY, CMP, LIPA ####[facility] [address] [address]Dr. Cortez Younger Sodium [Moles/Vol] 133 mmol/L Critically low 136-145 [facility] Comment on above: Performed By: #### A MY, CMP, LIPA ####[facility] [address] [address]Dr. Cortez Younger Urea nitrogen [Mass/Vol] 4.0 mg/dL Critically low 7.0-18.0 [facility] Comment on above: Performed By: #### A MY, CMP, LIPA ####[facility] [address] [address]Dr. Cortez Younger Urea nitrogen/Creatinin e [Mass ratio] 4.5 mg/mg Normal [facility] Comment on above: Performed By: #### A MY, CMP, LIPA ####[facility] [address] [address]Dr. Cortez Younger XR ABD FLAT UP_PA Farideh [...] by: CRUZITO CRENSHAW Date: 2022-11-13 13:22 Normal [facility] FREE T4on 10-31-2022 Free T4 [Mass/Vol] 1.03 ng/dL Normal 0.76-1.46 [facility] Comment on above: Performed By: #### E RUR #### [facility] [address] [place] [address] Dr. Cortez Younger LIPID PROFILEon 10-31-2022 CHOL-HDL RATIO NORM SEE BELOW Normal [facility] Comment on above: Result Comment: 3.3 - 4.4 LOW RISK 4.4 - 7.1 AVERAGE RISK 7.1 - 11.0 MODERATE RISK >11.0 HIGH RISK Performed By: #### E RUR #### [facility] [address] [place] [address] Dr. Cortez Younger Cholesterol [Mass/Vol] 165 mg/dL Normal <=200 [facility] Comment on above: Performed By: #### E RUR #### [facility] [address] [place] [address] Dr. Cortez Younger Cholesterol in HDL [Mass/Vol] 59 mg/dL Normal 40-60 [facility] Comment on above: Performed By: #### E RUR #### [facility] [address] [place] [address] Dr. Cortez Younger Cholesterol in LDL [Mass/Vol] 83.8 mg/dL Normal [facility] Comment on above: Performed By: #### E RUR #### [facility] [address] [place] [address] Dr. Cortez Younger Cholesterol.total/ Cholesterol in HDL [Mass ratio] 2.8 {ratio} Normal [facility] Comment on above: Performed By: #### E RUR #### [facility] [address] [place] [address] Dr. Cortez Younger HDL NORMAL > or = 60 mg/dl - LO W CARDIOVASCULAR RISK <40 mg/dl - HIGH CARDIOVASCULAR RISK Normal [facility] Comment on above: Performed By: #### E RUR #### [facility] [address] [place] [address] Dr. Cortez Younger LDL CALC NORMAL SEE BELOW Normal [facility] Comment on above: Result Comment: <100 mg/dl OPTIMAL 100 - 129 mg/dl NEAR OR ABOVE OPTIMAL 130 - 159 mg/dl BORDERLINE HIGH 160 - 189 mg/dl HIGH >190 mg/dl VERY HIGH Performed By: #### E RUR #### [facility] [address] [place], [place] [address] Dr. Cortez Younger Triglyceride [Mass/Vol] 111 mg/dL Normal <=150 [facility] Comment on above: Performed By: #### E RUR #### [facility] [address] [place], [place] [address] Dr. Cortez Younger VLDL CALC 22.2 mg/dL Normal [facility] Comment on above: Performed By: #### E RUR #### [facility] [address] [place], [place] [address] Dr. Cortez Younger MRI BRAIN WO W [...] VERN LU Date: 2022-10-31 13:12 Normal [facility] PROF 14(COMP METB)on 023 Albumin [Mass/Vol] 4.0 g/dL Normal 3.4-5.0 [facility] Comment on above: Performed By: #### C MP ####[facility] [address] [address]Dr. Cortez Younger Albumin/Globulin [Mass ratio] 1.3 {ratio} Normal [facility] Comment on above: Performed By: #### C MP ####[facility] [address] [address]Dr. Cortez Younger ALP [Catalytic activity/Vol] 66 U/L Normal 46-116 [facility] Comment on above: Performed By: #### C MP ####[facility] [address] [address]Dr. Cortez Younger ALT [Catalytic activity/Vol] 21 U/L Normal 16-63 [facility] Comment on above: Performed By: #### C MP ####[facility] [address] [place], [place] [address]Dr. Eleanorvalerie Younger Anion gap [Moles/Vol] 9.4 mmol/L Normal [facility] Comment on above: Performed By: #### C MP ####[facility] [address] [place], [place] [address]Dr. Cortez Younger AST [Catalytic activity/Vol] 10 U/L Critically low 15-37 [facility] Comment on above: Performed By: #### C MP ####[facility] [address] [address]Dr. Cortez Younger Bilirubin [Mass/Vol] 0.4 mg/dL Normal 0.2-1.0 [facility] Comment on above: Performed By: #### C MP ####[facility] [address] [address]Dr. Cortez Younger Calcium [Mass/Vol] 9.1 mg/dL Normal 8.5-10.1 [facility] Comment on above: Performed By: #### C MP ####[facility] [address] [address]Dr. Cortez Younger Chloride [Moles/Vol] 98 mmol/L Normal 98-107 [facility] Comment on above: Performed By: #### C MP ####[facility] [address] [address]Dr. Cortez Younger CO2 [Moles/Vol] 29.8 mmol/L Normal 21.0-32.0 [facility] Comment on above: Performed By: #### C MP ####[facility] [address] [place], [place] [address]Dr. Cortez Younger Creatinine [Mass/Vol] 0.89 mg/dL Normal 0.70-1.30 [facility] Comment on above: Performed By: #### C MP ####[facility] [address] [place], [place] [address]Dr. Cortez Aren EGFR-AF BELGIAN >60 Normal >=60 [facility] Comment on above: Performed By: #### C MP ####[facility] [address] [place], [place] [address]Dr. Cortez Aren EGFR-NON AF BELGIAN >60 Normal >=60 [facility] Comment on above: Performed By: #### C MP ####[facility] [address] [place], [place] [address]Dr. Cortez Aren Globulin (S) [Mass/Vol] 3.1 g/dL Normal [facility] Comment on above: Performed By: #### C MP ####[facility] [address] [place], [place] [address]Dr. Cortez Aren Glucose [Mass/Vol] 109 mg/dL Critically high 74-106 T [facility] Comment on above: Performed By: #### C MP ####[facility] [address] [place], [place] [address]Dr. Eleanorvalerie Aren Potassium [Moles/Vol] 4.2 mmol/L Normal 3.5-5.1 [facility] Comment on above: Performed By: #### C MP ####[facility] [address] [place], [place] [address]Dr. Cortez Younger Protein [Mass/Vol] 7.1 g/dL Normal 6.4-8.2 [facility] Comment on above: Performed By: #### C MP ####[facility] [address] [address]Dr. Cortez Younger Sodium [Moles/Vol] 133 mmol/L Critically low 136-145 Th [facility] Comment on above: Performed By: #### C MP ####[facility] [address] [address]Dr. Cortez Younger Urea nitrogen [Mass/Vol] 7.0 mg/dL Normal 7.0-18.0 [facility] Comment on above: Performed By: #### C MP ####[facility] [address] [address]Dr. Cortez Younger Urea nitrogen/Creatinin e [Mass ratio] 7.9 mg/mg Normal [facility] Comment on above: Performed By: #### C MP ####[facility] [address] [address]Dr. Cortez Younger TSHon 10-31-2022 TSH 1.574 uIU/mL Normal 0.358-3.[address] [facility] Comment on above: Performed By: #### T SH #### [facility] [address] [place] [address] Dr. Cortez Younger COMPLIANCE DRUG SCREENon PDF . Normal [facility] Comment on above: Performed By: #### E RUR #### [facility] [address] [place] [address] Dr. Cortez Younger Summary FINAL Normal [facility] Comment on above: Result Comment: = [...] test is not intended to distinguish between tkvup-9-akjrctcyfpezuwbufxvw, the predominant form of THC in most herbal or marijuana-based products, and qozmj-5-abgjpscrfivvknoaehwj. Norhydrocodone 1620 ng/mg creat Norhydrocodone is an [...] = Performed By: #### E RUR #### [facility] [address] [place] [address] Dr. Cortez Younger HYDROCODONE AND METABOLITE, URINEon 10-24-2022 Hydrocodone 55 ng/mL Normal [facility] Comment on above: Performed By: #### E RUR #### [facility] [address] [place] [address] Dr. Cortez Younger Hydromorphone Negative Normal [facility] Comment on above: Result Comment: This test was developed and its performance characteristics determined by [employer]. It has not been cleared or approved by the Food and Drug Administration. Performed By: #### E RUR #### [facility] [address] [place] [address] Dr. Cortez Younger OSMOLALITYon 10-20-2022 Osmolality QNSREP Normal [facility] Comment on above: Result Comment: Spec imen quantity insufficient for verification by repeat analysis. contacted Lynda at your facility on 10-20-2022 Performed By: #### C BC #### [facility] [address] [place] [address] Dr. Cortez Younger OSMOLALITY URINEon Osmolality, Urine 119 mOsmol/kg Normal [facility] Comment on above: Result Comment: 24 h r : 300 - 900 Random: 50 - 1400 After 12hr fluid restriction: >850 Performed By: #### O SMOU ####[facility] [address] [place] [address]Dr. Cortez Younger CBC AUTO DIFFon 10-16-2022 BASO # 0.0 103/ul Normal 0.0-0.1 [facility] Comment on above: Performed By: #### C BC ####[facility] U[address]bgabq[address] [place] [id number]. Cortez Younger Basophils/100 WBC (Bld) 0.3 % Normal 0.2-2.0 [facility] Comment on above: Performed By: #### C BC ####[facility] [address] [place] [address]Dr. Cortez Younger EO # 0.0 103/ul Normal 0.0-0.7 [facility] Comment on above: Performed By: #### C BC ####[facility] [address]kt[address] [place], [place] [address]Dr. Cortez Younger Eosinophils/100 WBC (Bld) 0.2 % Critically low 0.9-7.0 [facility] Comment on above: Performed By: #### C BC ####[facility] Urfofx[address]exo[address] [place], [place] [address]Dr. Cortez Younger Erythrocyte distribution width (RBC) [Ratio] 12.1 % Normal 11.0-15.0 [facility] Comment on above: Performed By: #### C BC ####[facility] Zatt[address]rm[address] [place], [place] [address]Dr. Cortez Younger Hematocrit (Bld) [Volume fraction] 45.9 % Normal 42.0-54.0 [facility] Comment on above: Performed By: #### C BC ####[facility] [address]yts[address] [place], [place] [address]Dr. Cortez Younger Hemoglobin (Bld) [Mass/Vol] 16.7 g/dL Normal 14.0-18.0 [facility] Comment on above: Performed By: #### C BC ####[facility] Xbukgunbru[address] [place], [place] [address]Dr. Cortez Younger IG # 0.06 10e3/ul Critically high 0.00-0.03 [facility] Comment on above: Performed By: #### C BC ####[facility] F[address] [place], [place] [address]Dr. Cortez Younger IG % 0.5 % Normal 0.0-0.5 [facility] Comment on above: Performed By: #### C BC ####[facility] [address]fr[address] [place] [id number] Younger LYMPH # 1.5 103/ul Normal 1.2-3.8 [facility] Comment on above: Performed By: #### C BC ####[facility] Y[address]vidtscf[address] [place] [address]Dr. Cortez Younger Lymphocytes/100 WBC (Bld) 13.5 % Critically low 20.5-60.0 [facility] Comment on above: Performed By: #### C BC ####[facility] [address] [place] [address]DrFish Younger MANUAL DIFF REQ NO Normal [facility] Comment on above: Performed By: #### C BC ####[facility] [address]dferv[address] [place] [id number] Younger MCH (RBC) [Entitic mass] 31.2 pg Normal 25.9-34.0 [facility] Comment on above: Performed By: #### C BC ####[facility] Nyflhyevbn[address] [place] [address]Dr. Cortez Younger MCHC (RBC) [Mass/Vol] 36.4 g/dL Critically high 29.9-35.2 [facility] Comment on above: Performed By: #### C BC ####[facility] T[address]imlvaomi[address] [place] [phone] Younger MCV (RBC) [Entitic vol] 85.6 fL Normal 80.0-94.0 [facility] Comment on above: Performed By: #### C BC ####[facility] Mypmewsmfb4884 [place] [address]DrFish Younger MONO # 0.6 103/ul Normal 0.3-0.8 [facility] Comment on above: Performed By: #### C BC ####[facility] Bnfxjujkbe79[address] [place] [address]DrFish Younger Monocytes/100 WBC (Bld) 5.4 % Normal 1.7-12.0 [facility] Comment on above: Performed By: #### C BC ####[facility] Omnqms[address]oyp[address] [place] [address]Dr. Cortez Younger NEUT # 8.9 103/ul Critically high 1.4-6.5 [facility] Comment on above: Performed By: #### C BC ####[facility] [address]cod[address] [place] [address]Dr. Cortez Younger Neutrophils/100 WBC (Bld) 80.1 % Critically high 43.0-75.0 [facility] Comment on above: Performed By: #### C BC ####[facility] Qgvzglvxfa52[address] [place] [phone]. Cortez Younger Platelet mean volume (Bld) [Entitic vol] 9.7 fL Normal 9.5-13.5 [facility] Comment on above: Performed By: #### C BC ####[facility] Vtjwl[address]xmz[address] [place] [phone]. Cortez Younger PLT 364 103/ul Normal 150-450 [facility] Comment on above: Performed By: #### C BC ####[facility] Fqiv[address]rebis[address] [place] [address]Dr. Cortez Younger RBC 5.36 106/ul Normal 4.70-6.10 [facility] Comment on above: Performed By: #### C BC ####[facility] Tgzitqlfys[address] [place] [phone]. Cortez Younger WBC 11.1 103/ul Critically high 4.0-11.0 [facility] Comment on above: Performed By: #### C BC ####[facility] Xazrorpviu[address] [place] [phone]. Cortez Younger Covid-19 PCR ([facility])on SARS-CoV-2 (COVID-19) RNA AXEL+probe Ql (Unsp spec) Not detected Normal NOT DETECTED [facility] Comment on above: Result Comment: [...] for this test is supported by the [employer] Supervisor of Health and Human Service's declaration that [...] be used). Performed By: #### C VDTBH ####[facility] [address] [place] [address]Dr. Cortez Younger DRUG SCREEN RAPID (URINE)on 10-16-2022 AMP Negative Normal NEGATIVE [facility] Comment on above: Performed By: #### C BC #### [facility] [address] [place] [address] Dr. Cortze Younger BAR Positive Abnormal NEGATIVE [facility] Comment on above: Performed By: #### C BC #### [facility] [address] [place] [address] Dr. Cortez Younger BUP Negative Normal NEGATIVE [facility] Comment on above: Performed By: #### C BC #### [facility] [address] [place] [address] Dr. Cortez Youngre BZO Positive Abnormal NEGATIVE [facility] Comment on above: Performed By: #### C BC #### [facility] [address] [place] [address] Dr. Cortez Younger OK Negative Normal NEGATIVE [facility] Comment on above: Performed By: #### C BC #### [facility] [address] [place] [address] Dr. Cortez Younger CUT-OFFS SEE BELOW Normal [facility] Comment on above: Result Comment: AMP [...] ng/mL Performed By: #### C BC #### [facility] [address] [place] [address] Dr. Cortez Younger DRUG CUT HEADER DRUG CLASS TEST SYST EM CUT-OFF CONCENTRATIONS ARE FOLLOWS: Normal [facility] Comment on above: Performed By: #### C BC #### [facility] [address] [place] [address] Dr. Cortez Younger mAMP Negative Normal NEGATIVE [facility] Comment on above: Performed By: #### C BC #### [facility] [address] [place] [address] Dr. Cortez Younger MTD Negative Normal NEGATIVE [facility] Comment on above: Performed By: #### C BC #### [facility] [address] [place] [address] Dr. Cortez Youngre OPI Positive Abnormal NEGATIVE [facility] Comment on above: Performed By: #### C BC #### [facility] [address] [place] [address] Dr. Cortez Younger OXY Negative Normal NEGATIVE [facility] Comment on above: Performed By: #### C BC #### [facility] [address] [place] [address] Dr. Cortez Younger PCP Negative Normal NEGATIVE [facility] Comment on above: Performed By: #### C BC #### [facility] [address] [place] [address] Dr. Cortez Younger PPX Negative Normal NEGATIVE [facility] Comment on above: Performed By: #### C BC #### [facility] [address] [place] [address] Dr. Cortez Younger TCA Negative Normal NEGATIVE [facility] Comment on above: Performed By: #### C BC #### [facility] [address] [place] [address] [address] Cortez Younger THC Positive Abnormal NEGATIVE [facility] Comment on above: Performed By: #### C BC #### [facility] [address] [place] [address] Dr. Cortez Younger ER URINE PROFILEon 3 Bilirubin Ql (U) Negative Normal NEGATIVE [facility] Comment on above: Performed By: #### C BC #### [facility] [address] [place] [address] Dr. Cortez Younger Clarity (U) CLEAR Normal CLEAR [facility] Comment on above: Performed By: #### C BC #### [facility] [address] [place] [address] Dr. Cortez Younger Color (U) LT. YELLOW Normal YELLOW [facility] Comment on above: Performed By: #### C BC #### [facility] [address] [place] [address] Dr. Cortez Younger ERUAHD A micrscopic examina tion will be performed if indicated. Normal [facility] Comment on above: Performed By: #### C BC #### [facility] [address] [place] [address] Dr. Cortez Younger Glucose Ql (U) Negative Normal NEGATIVE The [facility] Comment on above: Performed By: #### C BC #### [facility] [address] [place] [address] Dr. Cortez Younger Hemoglobin Ql (U) Negative Normal NEGATIVE [facility] Comment on above: Performed By: #### C BC #### [facility] [address] [place] [address] Dr. Cortez Younger Ketones Ql (U) Negative Normal NEGATIVE [facility] Comment on above: Performed By: #### C BC #### [facility] [address] [place] [address] Dr. Cortez Younger LEUKOCYTES Negative Normal NEGATIVE [facility] Comment on above: Performed By: #### C BC #### [facility] [address] [place], [place] [id number] Dr. Cortez Younger Nitrite Ql (U) Negative Normal NEGATIVE [facility] Comment on above: Performed By: #### C BC #### [facility] [address] [place] [address] Dr. Cortez Younger pH (U) 7.5 [pH] Normal 5-9 [facility] Comment on above: Performed By: #### C BC #### [facility] [address] [place] [address] Dr. Coretz Younger SPEC GRAVITY <=1.005 Abnormal 1.005-<=1.025 [facility] Comment on above: Performed By: #### C BC #### [facility] [address] [place] [address] Dr. Cortez Younger UA PROTEIN Negative Normal NEGATIVE/ TRACE [facility] Comment on above: Performed By: #### C BC #### [facility] [address] [place] [address] Dr. Cortez Younger UR MICRO IND NOT INDICATED Normal [facility] Comment on above: Performed By: #### C BC #### [facility] [address] [place] [address] Dr. Cortez Younger Urobilinogen Qn (U) 0.2 {Fidelia'U}/dL Normal 0.2 - 1.0 [facility] Comment on above: Performed By: #### C BC #### [facility] [address] [place] [address] Dr. Cortez Younger NAon 10-16-2022 Sodium [Moles/Vol] 125 mmol/L Critically low 136-145 [facility] Comment on above: Performed By: #### E RUR #### [facility] [address] [place] [address] Dr. Cortez Younger POTASSIUM URINEon 10-16-2022 UR POTASSIUM 11.8 mmol/L Normal [facility] Comment on above: Performed By: #### K U ####[facility] [address] [place] [address]Dr. Cortez Younger PROF 14(COMP METB)on 04-06-2 023 Albumin [Mass/Vol] 4.2 g/dL Normal 3.4-5.0 [facility] Comment on above: Performed By: #### E RUR #### [facility] [address] [place] [address] Dr. Cortez Younger Albumin/Globulin [Mass ratio] 1.3 {ratio} Normal [facility] Comment on above: Performed By: #### E RUR #### [facility] [address] [place] [address] Dr. Cortez Younger ALP [Catalytic activity/Vol] 75 U/L Normal 46-116 [facility] Comment on above: Performed By: #### E RUR #### [facility] [address] [place] [address] Dr. Cortez Younger ALT [Catalytic activity/Vol] 23 U/L Normal 16-63 [facility] Comment on above: Performed By: #### E RUR #### [facility] [address] [place] [address] Dr. Cortez Younger Anion gap [Moles/Vol] 9.7 mmol/L Normal [facility] Comment on above: Performed By: #### E RUR #### [facility] [address] [place] [address] Dr. Cortez Younger AST [Catalytic activity/Vol] 16 U/L Normal 15-37 [facility] Comment on above: Performed By: #### E RUR #### [facility] [address] [place] [address] Dr. Cortez Younger Bilirubin [Mass/Vol] 0.4 mg/dL Normal 0.2-1.0 [facility] Comment on above: Performed By: #### E RUR #### [facility] [address] [place] [address] Dr. Cortez Younger Calcium [Mass/Vol] 9.1 mg/dL Normal 8.5-10.1 [facility] Comment on above: Performed By: #### E RUR #### [facility] [address] [place] [address] Dr. Cortez Younger Chloride [Moles/Vol] 88 mmol/L Critically low 98-107 [facility] Comment on above: Performed By: #### E RUR #### [facility] [address] [place] [address] [address] Cortez Younger CO2 [Moles/Vol] 26.5 mmol/L Normal 21.0-32.0 [facility] Comment on above: Performed By: #### E RUR #### [facility] [address] [place] [address] [address] Cortez Younger Creatinine [Mass/Vol] 0.73 mg/dL Normal 0.70-1.30 [facility] Comment on above: Performed By: #### E RUR #### [facility] [address] [place] [address] [address] Cortez Younger EGFR-AF BELGIAN >60 Normal >=60 [facility] Comment on above: Performed By: #### E RUR #### [facility] [address] [place] [address] Dr. Cortez Younger EGFR-NON AF BELGIAN >60 Normal >=60 [facility] Comment on above: Performed By: #### E RUR #### [facility] [address] [address] [address] Cortez Younger Globulin (S) [Mass/Vol] 3.2 g/dL Normal [facility] Comment on above: Performed By: #### E RUR #### [facility] [address] [place] [address] Dr. Cortez Younger Glucose [Mass/Vol] 109 mg/dL Critically high 74-106 [facility] Comment on above: Performed By: #### E RUR #### [facility] [address] [address] [address] Cortez Younger Potassium [Moles/Vol] 4.2 mmol/L Normal 3.5-5.1 [facility] Comment on above: Performed By: #### E RUR #### [facility] [address] [place] [address] [address] Cortez Younger Protein [Mass/Vol] 7.4 g/dL Normal 6.4-8.2 [facility] Comment on above: Performed By: #### E RUR #### [facility] [address] [address] [address] Cortez Younger Sodium [Moles/Vol] 120 mmol/L Critically low 136-145 Th [facility] Comment on above: Performed By: #### E RUR #### [facility] [address] [place] [address] [address] Cortez Younger Urea nitrogen [Mass/Vol] 7.0 mg/dL Normal 7.0-18.0 [facility] Comment on above: Performed By: #### E RUR #### [facility] [address] [place] [address] [address] Cortez Younger Urea nitrogen/Creatinin e [Mass ratio] 9.6 mg/mg Normal [facility] Comment on above: Performed By: #### E RUR #### [facility] [address] [place] [address] [address] Cortez Younger SODIUM RANDOM URINEon 2022 Sodium (U) [Moles/Vol] 26 mmol/L Critically low 30-90 [facility] Comment on above: Performed By: #### N AU ####[facility] [address] [place] [address]Dr. Cortez Younger ACETONE SERUMon 10-07-2022 ACETONE Negative Normal NEGATIVE [facility] Comment on above: Performed By: #### E RUR #### [facility] [address] [address] [address] Cortez Younger CBC AUTO DIFFon 10-07-2022 BASO # 0.1 103/ul Normal 0.0-0.1 [facility] Comment on above: Performed By: #### C BC ####[facility] [address] [place] [address]Dr. Cortez Younger Basophils/100 WBC (Bld) 0.8 % Normal 0.2-2.0 [facility] Comment on above: Performed By: #### C BC ####[facility] [address] [place] [id number]. Cortez Younger EO # 0.0 103/ul Normal 0.0-0.7 [facility] Comment on above: Performed By: #### C BC ####[facility] [address] [place] [address]Dr. Cortez Younger Eosinophils/100 WBC (Bld) 0.2 % Critically low 0.9-7.0 [facility] Comment on above: Performed By: #### C BC ####[facility] [address] [place], [place] [address]Dr. Cortez Younger Erythrocyte distribution width (RBC) [Ratio] 12.1 % Normal 11.0-15.0 [facility] Comment on above: Performed By: #### C BC ####[facility] Tet[address] [place], [place] [address]Dr. Cortez Younger Hematocrit (Bld) [Volume fraction] 42.9 % Normal 42.0-54.0 [facility] Comment on above: Performed By: #### C BC ####[facility] [address]tewtoocv[address] [place], [place] [address]Dr. Cortez Younger Hemoglobin (Bld) [Mass/Vol] 15.4 g/dL Normal 14.0-18.0 [facility] Comment on above: Performed By: #### C BC ####[facility] [address] [place], [place] [address]Dr. Cortez Younger IG # 0.04 10e3/ul Critically high 0.00-0.03 [facility] Comment on above: Performed By: #### C BC ####[facility] [address]ci[address] [place], [place] [address]Dr. Cortez Younger IG % 0.4 % Normal 0.0-0.5 [facility] Comment on above: Performed By: #### C BC ####[facility] Fxf[address]fs[address] [place], [place] [address]Dr. Cortez Younger LYMPH # 1.3 103/ul Normal 1.2-3.8 [facility] Comment on above: Performed By: #### C BC ####[facility] [address]roept[address] [place], [place] [address]Dr. Cortez Aren Lymphocytes/100 WBC (Bld) 13.7 % Critically low 20.5-60.0 [facility] Comment on above: Performed By: #### C BC ####[facility] [address] [place] [address]Dr. Cortez Younger MANUAL DIFF REQ NO Normal [facility] Comment on above: Performed By: #### C BC ####[facility] V[address]xlpu[address] [place] [phone]. Cortez Younger MCH (RBC) [Entitic mass] 31.4 pg Normal 25.9-34.0 [facility] Comment on above: Performed By: #### C BC ####[facility] [address]my[address] [place] [address]Dr. Cortez Younger MCHC (RBC) [Mass/Vol] 35.9 g/dL Critically high 29.9-35.2 [facility] Comment on above: Performed By: #### C BC ####[facility] [address]mt[address] [place], [place] [address]DrFish Younger MCV (RBC) [Entitic vol] 87.4 fL Normal 80.0-94.0 [facility] Comment on above: Performed By: #### C BC ####[facility] [address]ipph[address] [place], [place] [address]DrFish Younger MONO # 0.4 103/ul Normal 0.3-0.8 [facility] Comment on above: Performed By: #### C BC ####[facility] [address] [place] [address]DrFish Younger Monocytes/100 WBC (Bld) 3.6 % Normal 1.7-12.0 [facility] Comment on above: Performed By: #### C BC ####[facility] [address]ns[address] [place], [place] [address]DrFish Younger NEUT # 7.9 103/ul Critically high 1.4-6.5 [facility] Comment on above: Performed By: #### C BC ####[facility] [address] [place] [address]DrFish Younger Neutrophils/100 WBC (Bld) 81.3 % Critically high 43.0-75.0 [facility] Comment on above: Performed By: #### C BC ####[facility] [address]oh[address] [place] [address]Dr. Cortez Younger Platelet mean volume (Bld) [Entitic vol] 8.8 fL Critically low 9.5-13.5 [facility] Comment on above: Performed By: #### C BC ####[facility] [address]hcx[address] [place] [address]Dr. Cortez Younger PLT 371 103/ul Normal 150-450 [facility] Comment on above: Performed By: #### C BC ####[facility] [address] [place] [address]Dr. Cortez Younger RBC 4.91 106/ul Normal 4.70-6.10 [facility] Comment on above: Performed By: #### C BC ####[facility] [address] [place], [place] [address]Dr. Cortez Younger WBC 9.8 103/ul Normal 4.0-11.0 [facility] Comment on above: Performed By: #### C BC ####[facility] [address]ecrwyzte[address] [place], [place] [address]DrFish Younger CRPon 10-07-2022 CRP [Mass/Vol] mg/L Normal <=1.0 The [facility] Comment on above: Performed By: #### L IPA, TSH, CRP, CMP ####[facility] [address]uf[address] [place], [place] [address]DrFish Younger ER URINE PROFILEon 3 Bilirubin Ql (U) Negative Normal NEGATIVE [facility] Comment on above: Performed By: #### E RUR #### [facility] [address] [place] [address] Dr. Cortez Younger Clarity (U) CLEAR Normal CLEAR [facility] Comment on above: Performed By: #### E RUR #### [facility] [address] [place] [address] Dr. Cortez Younger Color (U) LT. YELLOW Normal YELLOW [facility] Comment on above: Performed By: #### E RUR #### [facility] [address] [address] [address] Cortez PRESTON A micrscopic examina tion will be performed if indicated. Normal [facility] Comment on above: Performed By: #### E RUR #### [facility] [address] [place] [address] Dr. Cortez Younger Glucose Ql (U) Negative Normal NEGATIVE [facility] Comment on above: Performed By: #### E RUR #### [facility] [address] [place] [address] Dr. Cortez Younger Hemoglobin Ql (U) Negative Normal NEGATIVE [facility] Comment on above: Performed By: #### E RUR #### [facility] [address] [place] [address] Dr. Cortez Younger Ketones Ql (U) Negative Normal NEGATIVE [facility] Comment on above: Performed By: #### E RUR #### [facility] [address] [place] [address] Dr. Cortez Younger LEUKOCYTES Negative Normal NEGATIVE [facility] Comment on above: Performed By: #### E RUR #### [facility] [address] [place] [address] Dr. oCrtez Younger Nitrite Ql (U) Negative Normal NEGATIVE [facility] Comment on above: Performed By: #### E RUR #### [facility] [address] [place] [address] Dr. Cortez Younger pH (U) 7.5 [pH] Normal 5-9 [facility] Comment on above: Performed By: #### E RUR #### [facility] [address] [place] [address] Dr. Cortez Younger SPEC GRAVITY <=1.005 Abnormal 1.005-<=1.025 [facility] Comment on above: Performed By: #### E RUR #### [facility] [address] [place] [address] Dr. Cortez Younger UA PROTEIN Negative Normal NEGATIVE/ TRACE [facility] Comment on above: Performed By: #### E RUR #### [facility] [address] [address] [address] Cortez Younger UR MICRO IND NOT INDICATED Normal [facility] Comment on above: Performed By: #### E RUR #### [facility] [address] [address] [address] Cortez Younger Urobilinogen Qn (U) 0.2 {Fidelia'U}/dL Normal 0.2 - 1.0 [facility] Comment on above: Performed By: #### E RUR #### [facility] [address] [address] [address] Cortez Younger LACTATE/LACTIC ACIDon 2022 Lactate [Moles/Vol] 1.0 mmol/L Normal 0.4-2.0 [facility] Comment on above: Performed By: #### E RUR #### [facility] [address] [place] [address] Dr. Cortez Younger LIPASEon 10-07-2022 Lipase [Catalytic activity/Vol] 84.0 U/L Normal 73.0-393.0 [facility] Comment on above: Performed By: #### L IPA, TSH, CRP, CMP ####[facility] [address] [place] [address]DrFish Younger PROF 14(COMP METB)on 023 Albumin [Mass/Vol] 3.9 g/dL Normal 3.4-5.0 [facility] Comment on above: Performed By: #### L IPA, TSH, CRP, CMP ####[facility] [address] [place] [address]DrFish Younger Albumin/Globulin [Mass ratio] 1.7 {ratio} Normal [facility] [facility] Comment on above: Performed By: #### L IPA, TSH, CRP, CMP ####[facility] [address] [place] [address]DrFish Younger ALP [Catalytic activity/Vol] 78 U/L Normal 46-116 [facility] Comment on above: Performed By: #### L IPA, TSH, CRP, CMP ####[facility] [address] [place] [address]Dr. Cortez Younger ALT [Catalytic activity/Vol] 28 U/L Normal 16-63 [facility] Comment on above: Performed By: #### L IPA, TSH, CRP, CMP ####[facility] [address] [place] [address]Dr. Cortez Younger Anion gap [Moles/Vol] 12.1 mmol/L Normal [facility] Comment on above: Performed By: #### L IPA, TSH, CRP, CMP ####[facility] [address] [place] [address]Dr. Cortez Younger AST [Catalytic activity/Vol] 15 U/L Normal 15-37 [facility] Comment on above: Performed By: #### L IPA, TSH, CRP, CMP ####[facility] [address] [place] [address]Dr. Cortez Younger Bilirubin [Mass/Vol] 0.5 mg/dL Normal 0.2-1.0 [facility] Comment on above: Performed By: #### L IPA, TSH, CRP, CMP ####[facility] [address] [place], [place] [address]Dr. Cortez Younger Calcium [Mass/Vol] 8.6 mg/dL Normal 8.5-10.1 [facility] Comment on above: Performed By: #### L IPA, TSH, CRP, CMP ####[facility] [address] [place] [address]Dr. Cortez Younger Chloride [Moles/Vol] 100 mmol/L Normal 98-107 [facility] Comment on above: Performed By: #### L IPA, TSH, CRP, CMP ####[facility] [address] [place] [address]Dr. Cortez Younger CO2 [Moles/Vol] 28.8 mmol/L Normal 21.0-32.0 [facility] Comment on above: Performed By: #### L IPA, TSH, CRP, CMP ####[facility] [address] [place] [address]Dr. Cortez Younger Creatinine [Mass/Vol] 0.70 mg/dL Normal 0.70-1.30 [facility] Comment on above: Performed By: #### L IPA, TSH, CRP, CMP ####[facility] [address] [place] [address]Dr. Cortez Younger EGFR-AF BELGIAN >60 Normal >=60 [facility] Comment on above: Performed By: #### L IPA, TSH, CRP, CMP ####[facility] [address] [place] [address]Dr. Cortez Younger EGFR-NON AF BELGIAN >60 Normal >=60 [facility] Comment on above: Performed By: #### L IPA, TSH, CRP, CMP ####[facility] [address] [place] [address]Dr. Cortez Younger Globulin (S) [Mass/Vol] 2.3 g/dL Normal [facility] Comment on above: Performed By: #### L IPA, TSH, CRP, CMP ####[facility] [address] [place], [place] [address]Dr. Cortez Younger Glucose [Mass/Vol] 111 mg/dL Critically high 74-106 [facility] Comment on above: Performed By: #### L IPA, TSH, CRP, CMP ####[facility] [address] [place] [address]Dr. Cortez Younger Potassium [Moles/Vol] 3.9 mmol/L Normal 3.5-5.1 [facility] Comment on above: Performed By: #### L IPA, TSH, CRP, CMP ####[facility] [address] [place] [address]Dr. Cortez Younger Protein [Mass/Vol] 6.2 g/dL Critically low 6.4-8.2 [facility] Comment on above: Performed By: #### L IPA, TSH, CRP, CMP ####[facility] [address] [place] [address]Dr. Cortez Younger Sodium [Moles/Vol] 137 mmol/L Normal 136-145 [facility] Comment on above: Performed By: #### L IPA, TSH, CRP, CMP ####[facility] [address] [place], [place] [address]Yz. Cortez Younger Urea nitrogen [Mass/Vol] 6.0 mg/dL Critically low 7.0-18.0 [facility] Comment on above: Performed By: #### L IPA, TSH, CRP, CMP ####[facility] [address] [place], [place] [address]Pf. Cortez Younger Urea nitrogen/Creatinin e [Mass ratio] 8.6 mg/mg Normal [facility] Comment on above: Performed By: #### L IPA, TSH, CRP, CMP ####[facility] [address] [place], [place] [address]Rj. Cortez Younger SED RATE [facility] 2022 SED RATE <1 Normal <=20 [facility] Comment on above: Performed By: #### C BC #### [facility] [address] [place], [place] [address] Dr. Cortez Younger [facility] TSH 1.031 uIU/mL Normal 0.358-3.[address] [facility] Comment on above: Performed By: #### L IPA, TSH, CRP, CMP ####[facility] [address] [place] [id number]. Cortez Yougner [facility] SARS-CoV-2 (COVID-19) RNA AXEL+probe Ql (Unsp spec) Not detected Normal NOT DETECTED [facility] Comment on above: Result Comment: [...] for this test is supported by the [employer] Supervisor of Health and Human Service's declaration that [...] used). Performed By: #### C BC #### [facility] [address] [place] [address] Dr. Cortez Younger INFLUENZA A AND B [facility] 05-28 INFLUANE SEE BELOW Normal [facility] Comment on above: Result Comment: Nega tive for Flu A protein angiten. Infection due to Flu A cannot be ruled out. Flu A angiten in the sample may be below the detection limit of the test. Performed By: #### E RUR #### [facility] [address] [place] [address] Dr. Cortez Younger INFLUBNEGH SEE BELOW Normal [facility] Comment on above: Result Comment: Nega tive for Flu B protein antigen. Infection due to Flu B cannot be ruled out. Flu B antigen in the sample may be below the detection limit of the test. Performed By: #### E RUR #### [facility] [address] [place] [address] Dr. Cortez Younger INFLUENZA A AG Negative Normal NEGATIVE SEE COMMENT [facility] Comment on above: Performed By: #### E RUR #### [facility] [address] [place] [address] Dr. Cortez Younger INFLUENZA B AG Negative Normal NEGATIVE SEE COMMENT [facility] Comment on above: Performed By: #### E RUR #### [facility] [address] [place] [address] Dr. Cortez Younger INTERNAL CONTROLS Within Normal Limits Normal Wi thin Normal Limits [facility] Comment on above: Performed By: #### E RUR #### [facility] [address] [place] [address] Dr. Coretz Younger XR CHEST 1 Von 05-28-2022 XR [...] KAIA SHEIKH Date: 2022-05-28 13:36 Normal [facility] PROF 14(COMP METB)on 022 Albumin [Mass/Vol] 3.9 g/dL Normal 3.4-5.0 [facility] Comment on above: Performed By: #### C MP #### [facility] [address] [place] [address] [address] Cortez Younger Albumin/Globulin [Mass ratio] 1.4 {ratio} Normal [facility] Comment on above: Performed By: #### C MP #### [facility] [address] [place] [address] Dr. Cortez Younger ALP [Catalytic activity/Vol] 81 U/L Normal 46-116 [facility] Comment on above: Performed By: #### C MP #### [facility] [address] [place] [address] [address] Cortez Younger ALT [Catalytic activity/Vol] 19 U/L Normal 16-63 [facility] Comment on above: Performed By: #### C MP #### [facility] [address] [place] [address] [address] Cortez Younger Anion gap [Moles/Vol] 12.3 mmol/L Normal [facility] Comment on above: Performed By: #### C MP #### [facility] [address] [place] [address] Dr. Cortez Younger AST [Catalytic activity/Vol] 15 U/L Normal 15-37 [facility] Comment on above: Performed By: #### C MP #### [facility] [address] [place] [address] [address] Cortez Younger Bilirubin [Mass/Vol] 0.3 mg/dL Normal 0.2-1.0 [facility] Comment on above: Performed By: #### C MP #### [facility] [address] [place] [address] Dr. Cortez Younger Calcium [Mass/Vol] 8.6 mg/dL Normal 8.5-10.1 [facility] Comment on above: Performed By: #### C MP #### [facility] [address] [place] [address] [address] Cortez Younger Chloride [Moles/Vol] 101 mmol/L Normal 98-107 [facility] Comment on above: Performed By: #### C MP #### [facility] [address] [place] [address] [address] Cortez Younger CO2 [Moles/Vol] 30.6 mmol/L Normal 21.0-32.0 [facility] Comment on above: Performed By: #### C MP #### [facility] [address] [place] [address] [address] Cortez Younger Creatinine [Mass/Vol] 0.75 mg/dL Normal 0.70-1.30 [facility] Comment on above: Performed By: #### C MP #### [facility] [address] [place] [address] Dr. Cortez Younger EGFR-AF BELGIAN >60 Normal >=60 [facility] Comment on above: Performed By: #### C MP #### [facility] [address] [place] [address] [address] Cortez Younger EGFR-NON AF BELGIAN >60 Normal >=60 [facility] Comment on above: Performed By: #### C MP #### [facility] [address] [place] [address] [address] Cortez Younger Globulin (S) [Mass/Vol] 2.8 g/dL Normal [facility] Comment on above: Performed By: #### C MP #### [facility] [address] [place] [address] [address] Cortez Younger Glucose [Mass/Vol] 98 mg/dL Normal 74-106 [facility] Comment on above: Performed By: #### C MP #### [facility] [address] [place] [address] Dr. Cortez Younger Potassium [Moles/Vol] 3.9 mmol/L Normal 3.5-5.1 [facility] Comment on above: Performed By: #### C MP #### [facility] [address] [place] [address] [address] Cortez Younger Protein [Mass/Vol] 6.7 g/dL Normal 6.4-8.2 [facility] Comment on above: Performed By: #### C MP #### [facility] [address] [place] [address] Dr. Cortez Younger Sodium [Moles/Vol] 140 mmol/L Normal 136-145 [facility] Comment on above: Performed By: #### C MP #### [facility] [address] [place] [address] Dr. Cortez Younger Urea nitrogen [Mass/Vol] 5.0 mg/dL Critically low 7.0-18.0 [facility] Comment on above: Performed By: #### C MP #### [facility] [address] [place] [address] Dr. Cortez Younger Urea nitrogen/Creatinin e [Mass ratio] 6.7 mg/mg Normal [facility] Comment on above: Performed By: #### C MP #### [facility] [address] [place] [address] Dr. Cortez Younger CBC AUTO DIFFon 01-18-2022 BASO # 0.0 103/ul Normal 0.0-0.1 [facility] Comment on above: Performed By: #### C BC #### [facility] [address] [place] [address] Dr. Cortez Younger Basophils/100 WBC (Bld) 0.1 % Critically low 0.2-2.0 [facility] Comment on above: Performed By: #### C BC #### [facility] [address] [place] [address] Dr. Cortez Younger EO # 0.0 103/ul Normal 0.0-0.7 [facility] Comment on above: Performed By: #### C BC #### [facility] [address] [place] [address] Dr. Cortez Younger Eosinophils/100 WBC (Bld) 0.0 % Critically low 0.9-7.0 [facility] Comment on above: Performed By: #### C BC #### [facility] [address] [place] [address] Dr. Cortez Younger Erythrocyte distribution width (RBC) [Ratio] 12.8 % Normal 11.0-15.0 [facility] Comment on above: Performed By: #### C BC #### [facility] [address] [place] [address] Dr. Cortez Younger Hematocrit (Bld) [Volume fraction] 42.7 % Normal 42.0-54.0 [facility] Comment on above: Performed By: #### C BC #### [facility] [address] [place] [address] Dr. Cortez Younger Hemoglobin (Bld) [Mass/Vol] 15.3 g/dL Normal 14.0-18.0 [facility] Comment on above: Performed By: #### C BC #### [facility] [address] [place] [address] Dr. Cortez Younger IG # 0.10 10e3/ul Critically high 0.00-0.03 [facility] Comment on above: Performed By: #### C BC #### [facility] [address] [place] [address] Dr. Cortez Younger IG % 0.7 % Critically high 0.0-0.5 [facility] Comment on above: Performed By: #### C BC #### [facility] [address] [place] [address] Dr. Cortez Younger LYMPH # 1.9 103/ul Normal 1.2-3.8 [facility] Comment on above: Performed By: #### C BC #### [facility] [address] [place] [address] Dr. Cortez Younger Lymphocytes/100 WBC (Bld) 13.5 % Critically low 20.5-60.0 [facility] Comment on above: Performed By: #### C BC #### [facility] [address] [place] [address] Dr. Cortez Younger MANUAL DIFF REQ NO Normal [facility] Comment on above: Performed By: #### C BC #### [facility] [address] [place] [address] [address] Cortez Younger MCH (RBC) [Entitic mass] 31.4 pg Normal 25.9-34.0 [facility] Comment on above: Performed By: #### C BC #### [facility] [address] [place] [address] Dr. Cortez Younger MCHC (RBC) [Mass/Vol] 35.8 g/dL Critically high 29.9-35.2 [facility] Comment on above: Performed By: #### C BC #### [facility] [address] [place] [address] Dr. Cortez Younger MCV (RBC) [Entitic vol] 87.5 fL Normal 80.0-94.0 [facility] Comment on above: Performed By: #### C BC #### [facility] [address] [place] [address] Dr. Cortez Younger MONO # 0.8 103/ul Normal 0.3-0.8 [facility] Comment on above: Performed By: #### C BC #### [facility] [address] [place] [address] Dr. Cortez Younger Monocytes/100 WBC (Bld) 5.6 % Normal 1.7-12.0 [facility] Comment on above: Performed By: #### C BC #### [facility] [address] [place] [address] Dr. Cortez Younger NEUT # 11.4 103/ul Critically high 1.4-6.5 [facility] Comment on above: Performed By: #### C BC #### [facility] [address] [place] [address] Dr. Cortez Younger Neutrophils/100 WBC (Bld) 80.1 % Critically high 43.0-75.0 [facility] Comment on above: Performed By: #### C BC #### [facility] [address] [place] [address] Dr. Cortez Younger Platelet mean volume (Bld) [Entitic vol] 8.4 fL Critically low 9.5-13.5 [facility] Comment on above: Performed By: #### C BC #### [facility] [address] [place] [address] Dr. Cortez Younger PLT 352 103/ul Normal 150-450 [facility] Comment on above: Performed By: #### C BC #### [facility] [address] [place] [address] Dr. Cortez Younger RBC 4.88 106/ul Normal 4.70-6.10 [facility] Comment on above: Performed By: #### C BC #### [facility] [address] [place] [address] Dr. Cortez Younger WBC 14.2 103/ul Critically high 4.0-11.0 [facility] Comment on above: Performed By: #### C BC #### [facility] [address] [place] [address] Dr. Cortez Younger PROF 14(COMP METB)on 022 Albumin [Mass/Vol] 4.1 g/dL Normal 3.4-5.0 [facility] Comment on above: Performed By: #### C MP #### [facility] [address] [place] [address] Dr. Cortez Younger Albumin/Globulin [Mass ratio] 1.5 {ratio} Normal [facility] Comment on above: Performed By: #### C MP #### [facility] [address] [place] [address] Dr. Cortez Younger ALP [Catalytic activity/Vol] 77 U/L Normal 46-116 [facility] Comment on above: Performed By: #### C MP #### [facility] [address] [place] [address] Dr. Cortez Younger ALT [Catalytic activity/Vol] 19 U/L Normal 16-63 [facility] Comment on above: Performed By: #### C MP #### [facility] [address] [place] [address] Dr. Cortez Younger Anion gap [Moles/Vol] 10.6 mmol/L Normal [facility] Comment on above: Performed By: #### C MP #### [facility] [address] [place] [address] Dr. Cortez Younger AST [Catalytic activity/Vol] 8 U/L Critically low 15-37 [facility] Comment on above: Performed By: #### C MP #### [facility] [address] [place] [address] [address] Cortez Younger Bilirubin [Mass/Vol] 0.3 mg/dL Normal 0.2-1.0 [facility] Comment on above: Performed By: #### C MP #### [facility] [address] [place] [address] [address] Cortez Younger Calcium [Mass/Vol] 8.9 mg/dL Normal 8.5-10.1 [facility] Comment on above: Performed By: #### C MP #### [facility] [address] [place] [address] Dr. Cortez Younger Chloride [Moles/Vol] 91 mmol/L Critically low 98-107 [facility] Comment on above: Performed By: #### C MP #### [facility] [address] [place] [address] [address] Cortez Younger CO2 [Moles/Vol] 30.1 mmol/L Normal 21.0-32.0 [facility] Comment on above: Performed By: #### C MP #### [facility] [address] [place] [address] Dr. Cortez Younger Creatinine [Mass/Vol] 0.88 mg/dL Normal 0.70-1.30 [facility] Comment on above: Performed By: #### C MP #### [facility] [address] [place] [address] [address] Cortez Younger EGFR-AF BELGIAN >60 Normal >=60 [facility] Comment on above: Performed By: #### C MP #### [facility] [address] [place] [address] [address] Cortez Younger EGFR-NON AF BELGIAN >60 Normal >=60 [facility] Comment on above: Performed By: #### C MP #### [facility] [address] [place] [address] Dr. Cortez Younger Globulin (S) [Mass/Vol] 2.8 g/dL Normal [facility] Comment on above: Performed By: #### C MP #### [facility] [address] [place] [address] [address] Cortez Younger Glucose [Mass/Vol] 112 mg/dL Critically high 74-106 T [facility] Comment on above: Performed By: #### C MP #### [facility] [address] [place] [address] [address] Cortez Younger Potassium [Moles/Vol] 3.7 mmol/L Normal 3.5-5.1 [facility] Comment on above: Performed By: #### C MP #### [facility] [address] [place] [address] [address] Cortez Younger Protein [Mass/Vol] 6.9 g/dL Normal 6.4-8.2 [facility] Comment on above: Performed By: #### C MP #### [facility] [address] [place] [address] [address] Cortez Younger Sodium [Moles/Vol] 128 mmol/L Critically low 136-145 [facility] Comment on above: Performed By: #### C MP #### [facility] [address] [place] [address] [address] Cortez Younger Urea nitrogen [Mass/Vol] 9.0 mg/dL Normal 7.0-18.0 [facility] Comment on above: Performed By: #### C MP #### [facility] [address] [place] [address] [address] Cortez Younger Urea nitrogen/Creatinin e [Mass ratio] 10.2 mg/mg Normal [facility] Comment on above: Performed By: #### C MP #### [facility] [address] [place] [address] [address] Cortez Younger SED RATE WESTERGRENon 2021 SED RATE <1 Normal <=20 [facility] Comment on above: Performed By: #### S EDR ####[facility] [address] [place], [place] [address]DgDr. Cortez Younger UA RANDOMon 01-18-2022 Bilirubin Ql (U) Negative Normal NEGATIVE [facility] Comment on above: Performed By: #### E RUR #### [facility] [address] [place] [address] Dr. Cortez Younger Clarity (U) CLEAR Normal CLEAR [facility] Comment on above: Performed By: #### E RUR #### [facility] [address] [place] [address] Dr. Cortez Younger Color (U) LT. YELLOW Normal YELLOW [facility] Comment on above: Performed By: #### E RUR #### [facility] [address] [place] [address] Dr. Cortez Younger Glucose Ql (U) Negative Normal NEGATIVE [facility] Comment on above: Performed By: #### E RUR #### [facility] [address] [place] [address] Dr. Cortez Younger Hemoglobin Ql (U) TRACE-LYSED Abnormal NEGATIVE [facility] Comment on above: Performed By: #### E RUR #### [facility] [address] [place] [address] Dr. Cortez Younger Ketones Ql (U) Negative Normal NEGATIVE [facility] Comment on above: Performed By: #### E RUR #### [facility] [address] [place] [address] Dr. Cortez Younger LEUKOCYTES TRACE Abnormal NEGATIVE [facility] Comment on above: Performed By: #### E RUR #### [facility] [address] [place] [address] Dr. Cortez Younger Nitrite Ql (U) Negative Normal NEGATIVE [facility] Comment on above: Performed By: #### E RUR #### [facility] [address] [place] [address] Dr. Cortez Younger pH (U) 6.5 [pH] Normal 5-9 [facility] Comment on above: Performed By: #### E RUR #### [facility] [address] [place] [address] Dr. Cortez Younger SPEC GRAVITY <=1.005 Abnormal 1.005-<=1.025 [facility] Comment on above: Performed By: #### E RUR #### [facility] [address] [place] [address] [address] Cortez Younger UA PROTEIN Negative Normal NEGATIVE/ TRACE [facility] Comment on above: Performed By: #### E RUR #### [facility] [address] [place] [address] [address] Cortez Younger Urobilinogen Qn (U) 0.2 {Fideila'U}/dL Normal 0.2 - 1.0 [facility] Comment on above: Performed By: #### E RUR #### [facility] [address] [place] [address] [address] Cortez Younger MRI CSPINE WO W [...] VERN LU Date: 2022-01-17 16:24 Normal [facility] MRI TSPINE WO W CONon [...] by: VERN LU Date: 2022-01-17 16:29 Normal [facility] MRI BRAIN WO W CONon 022 [...] by: VERN LU Date: 2022-01-03 08:03 Normal [facility] Patient Educationon 12-25-19 Patient Education Oncology [...] including vitamins, herbs, eye drops, creams, and qamx-khi-fgofdpz medicines. This also includes: ? Medicines to [...] 08/01/2005 Document Revised: 06/11/2018 Document Reviewed: 04/05/2018 [employer] Patient Education ? 2019 [employer]. Normal [facility] Urology Office/Clinic Noteon 12-24-2021 Urology Office/Clinic [...] Urnls Dip Stick Auto w/o Microscopy POC 31566 3. Elevated PSA (R97.20: Elevated prostate specific antigen [PSA]) Most recent PSA done 08/13/21 5.24 Ordered: Urnls Dip Stick Auto w/o Microscopy POC 46731 Other obstructive and reflux uropathy (N13.8: Other obstructive and reflux uropathy) Follow-up With When Contact Information Star Manley MD, Gustavo Oralndo, URO In 6 months [facility] [address], [place] [address]- Additional Instructions: w/ PVR Patient Education Prostate-Specific [...] Or (more content not included)... Normal [facility] Comment on above: Result Comment: Elec tronically Signed By: Star Manley MD, Gustavo Orlando\.br\Date and Time Signed: 12/24/21 10:52 EDT\.br\Electronically Co-Signed By: Lynda Ortega\.br\Date and Time Co-Signed: 12/24/21 10:47 EDT Lab Reportson 12-16-2021 Lab Reports [id number]: 127 Normal [facility] Lab Reports [id number]: 127 Normal [facility] CULTURE URINEon 12-12-2021 CULTURE URINE Culture Observations : No growth Normal [facility] Comment on above: Performed By: #### U RCX ####[facility] [address] [place] [address]Dr. Cortez Younger UA RANDOMon 12-12-2021 Bilirubin Ql (U) Negative Normal NEGATIVE [facility] Comment on above: Performed By: #### U A #### [facility] [address] [place] [address] [address] Cortez Younger Clarity (U) CLEAR Normal CLEAR [facility] Comment on above: Performed By: #### U A #### [facility] [address] [place] [address] Dr. Cortez Younger Color (U) LT. YELLOW Normal YELLOW [facility] Comment on above: Performed By: #### U A #### [facility] [address] [place] [address] Dr. Cortez Younger Glucose Ql (U) Negative Normal NEGATIVE The [facility] Comment on above: Performed By: #### U A #### [facility] [address] [place] [address] Dr. Cortez Younger Hemoglobin Ql (U) LARGE Abnormal NEGATIVE The [facility] Comment on above: Performed By: #### U A #### [facility] [address] [place] [address] Dr. Cortez Younger Ketones Ql (U) Negative Normal NEGATIVE The [facility] Comment on above: Performed By: #### U A #### [facility] [address] [place] [address] Dr. Cortez Younger LEUKOCYTES Negative Normal NEGATIVE [facility] Comment on above: Performed By: #### U A #### [facility] [address] [place] [address] Dr. Cortze Younger Nitrite Ql (U) Negative Normal NEGATIVE [facility] Comment on above: Performed By: #### U A #### [facility] [address] [place] [address] Dr. Cortez Younger pH (U) 7.0 [pH] Normal 5-9 [facility] Comment on above: Performed By: #### U A #### [facility] [address] [place] [address] Dr. Cortez Younger SPEC GRAVITY 1.010 Normal 1.005-<=1.025 The [facility] Comment on above: Performed By: #### U A #### [facility] [address] [address] [address] Cortez Younger UA PROTEIN Negative Normal NEGATIVE/ TRACE [facility] Comment on above: Performed By: #### U A #### [facility] [id number] Cortez Younger Urobilinogen Qn (U) 0.2 {Fidelia'U}/dL Normal 0.2 - 1.0 [facility] Comment on above: Performed By: #### U A #### [facility] [address] [place] [address] Dr. Cortez Younger Coding Summary.on 12-06-2021 Coding Summary. CD:[id number] Gh0b Ww+PGhlYWQ+SY5EDLXjE26nu XVugP9EC7uUVS9EHBBMZGTOI M7QPB6rrTZ4JWdlP4PhnlSv JwbmkMDkOW50ZWy9TTN4vRcy EWxhbK9klWToS9m7LeGgHA41 lG19HPomLYWyFyC4EeEjnpct bWFy N3thRuKqsLXeSjq+PHRhYmxl IHdpZHRoPScxMDAlJyBzdHls FB1aIo9bNOQoKCKnkPfjeVTv OiBj s7bfIBSiUPqyJC3mdSbrP7Op vGG7GFEfp7y7Zc98vWU+PHRk TQP6dWneDDppq283QeJbu6vo IDM3 cTTiXVifWWA9C59vl2S0LWZe JSSdJPX2eQS9oF7vkQuouexk N8KncEXiGkN2CRC1yWGlnE0p bGln cpxksN1xZam+L22ZKJ2JGZRD KX8KDfa3Q0FdIscyzIJ+PC90 JZOlHG30jEVigXEqn2ygfLb4 JzEw JBZqOAM6wAzhGOovu6XgQFBx L93beDFzi1I2SCBdrHqbwIEq OoDniPA2hP1uIEhhdjjxq8qs dzsn Fnbad4ofwm50jR62J76qSOwf SMQbVHM0MQAjQNJjgKndju9l eZ7oOf5+SMluy2apl2sgsXv9 IjIw CUXiaiAhfSvoIEM5a4NqIg52 Z7OloGkzs6XsFni7dh62oIYg f9G5hAE0ILbkLHQglE5tWHba ZnQ6 CVRwUgIapH28cETfZIxpJm0v eDvszPlpHX8xDCWthwqfSKYk yN5uGASgxMLlzCvsYB5zBBFt bjtm w162YoAjSGN3KGEtjDVgF1Uo gH2jIxOkMFUmMGByD6JdyFPw LBqiP585FRfrSwU8OWWnqpKg Y2Fs IOJmuWolQaJ4a2G8Kp5Cv3Ag ckkvMKD4YXgaEIE4WcT6YsAx DiI1L4YuOej3QNLchQbqIQ2r J3Bh NTDuzyxsyoineIZ9UKXxAIPm hO61iJFoRVzmQz7xa8F8q694 ENKkOMZbgU34Up8teHotVLTz dCBU rL4nwsawv1ekwegaAcXfBXWb HWq8NXl0OESciFshKtNdRON6 VbB8XUO8cRNnfX7nxZonrdcs dG9w Oyc+Y52zaM2rKFW2BIY6sgfo JBGkjdSqHO38BA82G2WrOgzc dGFibGU+CBDfeoOhlUdoQL8b YmFj v6tsk9DmMGdwE8YoVAAaFRps Hjr1HTFdQDV5wFH7gM2iVOJi INbwu3S7kIB8K6EorcSagc6n b2xs FYQmRRfyS81pfINlt3F9GMVi iEB8LKFneImaRgFqbJ10Pei+ XPDhySykl9EzGwjaj0bki4sc dGg9 HfFbYQXoxgAllSavXYC2d5Op Rh69C13nOKhiZOBzGWOvCPGo SLWbdCplfl3flN9pIt2+PGNv bCB3 mQZ4jJ3lFIBjYcO4QMmjB254 YzHiuXAnXxptz9liz7wolZm4 CvOpRLLdyuMxgHyoWGA1s8Fj Lz48 C56hWQyjDCBiGDHfVTSwTWEq oIqssf7oqZ8zPt8+LX4ug4rq mo08cJ28xYN+PBPeOOR0yInh PSdw VPVhaA6pQLgcFjI5WRSdKnCs bV10gQQeWHaiOy9onIndbSmx LY3eZNRkhgmvr818OlLpj7mz IDEw aVNlQCdvUQQ4G41it2G3IVDe UIEjPJC5vFM7eF1lpAibessv bGVmdDsgdmVydGljYWwtYWxp Z246 IHRvcDsnPlBhdGllbnQgTmFt CAy9C1ZdAeh7EIGrhUefYH0q iYUmFBpoMa5kzGzqcIfuAE5a NTBp xoayn056XsRad6yjPLDzfTQi SSaoHPS9F79ib8D6BUKvQXZq BIE1cPU2kG3fnQaumufqzWRt dDsg bsHclTvxKIveUDexW107ERNr lSsvQzPsdcZqBMNemHE2HN63 BA01rXAah6W6xGE1X0QiRMRo bmct xufrjVT8UFLhLJJkbO01Ac4l qXnnJl7vQQAnRIK1SQOvlSOl C1WgjJ3vJzZuCMVrTHKtY9Eb eHQt JVpeU002MTbeAtJ0UAMfqeQp X0SwQBOrzJcrUiW9c1U9Vs3M K3W0IQ95PZ92sZRss0Z0aML2 J3Bh GGOgqvjvuqzbiRV8WFFjBLAr wF85Hy9gkWiiFe4hSJPdUAW3 VACejMAaT7XmkS7cFgNfLSCy MDAw Y0EwwFUwFEodX697CWuwApV0 IBVnqbMiZ7NsUVYcdOkoDjI8 n4E0Dg2PKWn7HF71IU77cATk c3R5 cQV1E8YzGQNubrhkjlgizYA5 OHVqQYYnjD04Mi0whMrmWp6l MTCeZPQ9LNDuzTCoX1ZhoB0p OiAj TYYpZNFeI9RzdAVxMKasT434 QMysWbU6OFNvrpJoK1XrCMYy eGorWyE1x0N7Qa1TZOAqXK52 IFR5 oWX3KB84KA44L3UqAwkpyOHx bGU+PHRhYmxlIHdpZHRoPScx EGYwSfGdeZhiRS9bTa9oGNIn LWNv lKankAYzRnIlm3weOOKmIBye VK5fxZcnN2PvpLO1UQXsg2p7 Id22O22qO0HezYQ+PGNvbCB3 aWR0 lG5iBuBtTsP1BEnxX173HzUj bGBrBhrpd3euy6ridZg3HbS1 LTYwhdZauVilEJU4b6HqTr03 Y29s IHdpZHRoPSIxNSUiIHZhbGln cs5iyU6rHw0+KZGsfFF7nII2 mH7dLwSkUiV5XFmiL419TwDy cCIv Zwthk6fpt2czvMn3TcDpDZDm isPmjNpsTBJ0v8FyMl97M1Xb iAnlo5AcCvs4bd76tWCys0L7 bGU9 L0QmPILflpbmtSEwzXzfGY2c ANXchwmaRQOauN8yTQNbH0x1 JaLzVwF1SQvgX1EwkiN7YINn cHQg SZypOXF9S04ko6O4OCToMWDj HPF7cGP5fL8zfWfahhtmbTXm rTylzkVesYgxDGyzCLabY343 IHRv uEiqDTNfmW5aMAHdpEQxjRom TL4oWCFnrqvpPvSSOmYAA2jR JWpuA2WHHD2yFDvrxLZ+PHRk IHN0 jCxmUNrhOIRvhB6sQGHzI6v9 FyWwEiR7VAdoB5SfCOKghwai Xg34kM0wUbXrVcT5LOprS9Kg bnQ6 NYRpsCGmTTkqBWV8F25au9D7 ITNtRQXhKWO8hLS9kL1jzGzp bjogbGVmdDsgdmVydGljYWwt YWxp M370OBGjnMagHjO5FlMyYbM5 Sgv1R3OvSde3LJXedLlyWO2o iPCfFObmYu5whObfdKhwQC8p NTBp quraIVYxaI8hBOSutSVpoYug AW8oTKSalsafw356ChKtJFG5 CUPkdAFjC4XjgM7sWiWzQOAa MDAw R5EzuUQzTDxcX177QSojApP0 RQMsldGnF3ChPPYgcRvyHbB5 f3T9Ss62IzHGFMKveemlsZD+ PHRk EGW7jZylNTjpRNZwpO7lILRm A0i7NzMzWjV3ILzqP3TfTAHw vfcdFd19zE2lOmCnEpH3CDds O2Zv owG7ORZevITdVJowFIF4L47g p3Z5VNMcFUAnVVS5nQS9zT5h bGlnbjogbGVmdDsgdmVydGlj YWwt PEysX832FKDpePguDs1aqVT3 B3NiKak8EFVxwOkbBJ6veOHd RZevLc6guLuilRajPN4jGHEv bjtw RKAnsG9vLHIjnPIrfBgkNO9w ZQEefxydh036XoIeFEK5KUIg xQKkN2QggG8xXuXbGOSmSOQg O3Rl sZEtMUsqJ223TUmuIsB1QVIg pbZxE6FnYGGkpYhgHgI9i7J5 Ii8UkSIiYPUuNF26YW03AD15 L3Ry PjwvdGFibGU+PHRhYmxlIHdp NGYkABvaWFBnRlMslMzqBK4h Ds9fTYJgCCIyaLsawJTbKaXt b2xs ICCcDDldIY4dcXsnC4GuuRW6 QLJxo7i6Kz72J65iU9IvhZB+ BRZvnMZ5jRI3sE2uUhFnMaL7 YWxp Q076KyBzbHZnLxfzh7lvm3ge bZq4BaHuNNAmcdJmxOceYXN1 v6ZmUw36U25vRFhhUITiXSBs MCUi KPQbcHikld1inP7vKk7+PGNv sNJ7rEJ4uQ3dClYnZrR0IQtx V639ZvWlfIZcQpgwO90rD3Pq dXA+ YMNcVdz9XZQngIgoWK5qqFOo TRspGw1pICB2VhKlDjMnZSaf E2RuXKWecnpusjwmfKQ4MTYw MDUw gL01He0qrBjkWt7kVWMtFNW3 VBGisYMgJ0VxhT6rHsDcWXNm EWKsI9OfmKMhCTldC986LYfg ZnQ7 WFSedhXoI5GuHADbbPvwYeR4 g6Q6Lc0TbQjpaHXgIH2mXoQb MLp4U9SkIya7LZSziTqbMP1u cGFk PDlaQd5tqZxooCrcQV2nWDJv jslsq452LfJsc4syGDHekCQt TRptSEF1Z17hb1U0AAMjGXBh MDA7 aYN1vH9ioBqoilazaUYuqAwf qfJumCieOIinYTgfB031PWEy pPfqIvFRKdn8X5YvJpa0XNJy dHls AE3veVAaIYgqNa5paLibsGcp VL1vGWWkurruf166OuMdc3qk OANjqXSkJJtnGVK1T59ac8M5 ICMw NZPuKGO7aZY8vS4enKxwnarr bGVmdDsgdmVydGljYWwtYWxp D868AFCjgUokTp4HWlq5P5Za Pjx0 ZNNhjAqgLT2eeCFvGFgiPx0q cQhehXqrXU3oNWRzfifpk634 DsYzi2nnQHXnuLRvYBqqCWF3 Y29s q8S1ZJByOVGlFLB6gRK4rZ1m bGlnbjogbGVmdDsgdmVydGlj YVqhFDgmF650BLFhzYxvQlNx eWVy OjwvdGQ+RK24ko67A0SoWqkb Bia1ZCQxZOY4nOT1eX6hDKQp SSxhn6D2sWU0Y6NmcbAlgj4u b2xs YXBz (more content not included)... [facility] Consent for Procedure/Surger yon 12-05-2021 Consent for Procedure/Surgery [id number]#1.00CD :127 [facility] Consent for Treatmenton -2 Consent for Treatment [id number]#1.00CD: 127 [facility] IntraOperative Documentson 0 12-05-2021 IntraOperative Documents [id number]#1.00CD :127 [facility] Main OR Intraoperative Recor don 12-05-2021 Main OR Intraoperative Record IntraOp Document Type FTURO Summary Primary Physician: Star Manley MD, Gustavo Orlando Finalized Date/Time: 12/05/21 13:57:51 Pt. Name: HARISH MCKENNA D.O.B./Sex: 1970 Male Med Rec #: [id number] Physician: Star [place] MD, Gustavo Orlando Financial #: [id number] Pt. Type: O Room/Bed: / Admit/Disch: 12/05/21 11:48:14 - Institution: Case Times FTURO Entry 1 Patient Times In Room 12/05/21 13:23:00 Out Room 12/05/21 13:57:00 Procedure Times Start 12/05/21 13:40:00 Stop 12/05/21 13:53:00 Anesthesia Times Last Modified By: Veena Levin RN 12/05/21 13:57:47 Case Attendance FTURO Entry 1 Entry 2 Entry 3 Case Attendee Star Manley MD, Gustavo Sanders MANAGER RETIREMENT, Veena Brower MANAGER RETIREMENT, Ni Aguirre Role Performed Surgeon - Primary [...] Veena Levin RN Role Performed Director Of Retail - Primary Time In 12/05/21 13:23:00 Time [...] Implant Implant Identification Description UROLIFT Lot Number [id number] 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 Normal [facility] Main OR Preoperative Recordo n 12-05-2021 Main OR Preoperative Record Holding Area Document Type FTURO Summary Primary Physician: Gustavo Graves Jr., MD Finalized Date/Time: 12/05/21 13:01:06 Pt. Name: RICARDOSHARLAHARISH D.O.B./Sex: 1970 Male Med Rec #: [id number] Physician: Gustavo Graves Jr., MD Financial #: [id number] Pt. Type: O Room/Bed: / Admit/Disch: 12/05/21 [...] Veena Levin RN 12/05/21 13:01 Normal [facility] Operative Reporton Operative Report Patient: HARISH [...] procedure (10 mg diazepam, 5/325 mg of [place]), Local Anesthesia (60cc 2% Xylocaine liquid inserted [...] and was subsequently discharged home. Normal [facility] Comment on above: Result Comment: Elec tronically Signed By: Star Manley MD, Gustavo Orlando\.amanda\Date and Time Signed: 12/05/21 13:58 EDT CBC AUTO DIFFon 12-03-2021 BASO # 0.2 103/ul Critically high 0.0-0.1 [facility] Comment on above: Performed By: #### C BC ####[facility] [address] [address]DrFish Younger Basophils/100 WBC (Bld) 1.3 % Normal 0.2-2.0 [facility] Comment on above: Performed By: #### C BC ####[facility] [address] [id number]. Cortez Younger EO # 0.2 103/ul Normal 0.0-0.7 [facility] Comment on above: Performed By: #### C BC ####[facility] [address] [address]DrFish Younger Eosinophils/100 WBC (Bld) 1.8 % Normal 0.9-7.0 [facility] Comment on above: Performed By: #### C BC ####[facility] [address] [address]Dr. Cortez Younger Erythrocyte distribution width (RBC) [Ratio] 13.3 % Normal 11.0-15.0 [facility] Comment on above: Performed By: #### C BC ####[facility] [address] [place], [place] [address]Dr. Cortez Younger Hematocrit (Bld) [Volume fraction] 45.0 % Normal 42.0-54.0 [facility] Comment on above: Performed By: #### C BC ####[facility] [address] [place], [place] [address]Dr. Cortez Younger Hemoglobin (Bld) [Mass/Vol] 15.6 g/dL Normal 14.0-18.0 [facility] Comment on above: Performed By: #### C BC ####[facility] [address] [place], [place] [address]Dr. Cortez Younger IG # 0.05 10e3/ul Critically high 0.00-0.03 [facility] Comment on above: Performed By: #### C BC ####[facility] [address] [place], [place] [address]Dr. Cortez Younger IG % 0.4 % Normal 0.0-0.5 [facility] Comment on above: Performed By: #### C BC ####[facility] [address] [place], [place] [address]Dr. Cortez Younger LYMPH # 1.8 103/ul Normal 1.2-3.8 [facility] Comment on above: Performed By: #### C BC ####[facility] [address] [place], [place] [address]Dr. Cortez Younger Lymphocytes/100 WBC (Bld) 15.2 % Critically low 20.5-60.0 [facility] Comment on above: Performed By: #### C BC ####[facility] [address] [place], [place] [address]Dr. Cortez Aren MANUAL DIFF REQ NO Normal [facility] Comment on above: Performed By: #### C BC ####[facility] [address] [address]Dr. Cortez Younger MCH (RBC) [Entitic mass] 31.1 pg Normal 25.9-34.0 [facility] Comment on above: Performed By: #### C BC ####[facility] [address] [place], [place] [address]Dr. Cortez Younger MCHC (RBC) [Mass/Vol] 34.7 g/dL Normal 29.9-35.2 [facility] Comment on above: Performed By: #### C BC ####[facility] [address] [place], [place] [address]Dr. Cortez Aren MCV (RBC) [Entitic vol] 89.8 fL Normal 80.0-94.0 [facility] Comment on above: Performed By: #### C BC ####[facility] [address] [place], [place] [address]Dr. Cortez Aren MONO # 0.6 103/ul Normal 0.3-0.8 [facility] Comment on above: Performed By: #### C BC ####[facility] [address] [place], [place] [address]Dr. Eleanorvalerie Younger Monocytes/100 WBC (Bld) 5.3 % Normal 1.7-12.0 [facility] Comment on above: Performed By: #### C BC ####[facility] [address] [place], [place] [address]Dr. Eleanorvalerie Aren NEUT # 8.9 103/ul Critically high 1.4-6.5 [facility] Comment on above: Performed By: #### C BC ####[facility] [address] [place], [place] [address]Dr. Cortez Younger Neutrophils/100 WBC (Bld) 76.0 % Critically high 43.0-75.0 [facility] Comment on above: Performed By: #### C BC ####[facility] [address] [place], [place] [address]DrFish Younger Platelet mean volume (Bld) [Entitic vol] 8.9 fL Critically low 9.5-13.5 [facility] Comment on above: Performed By: #### C BC ####[facility] [address] [address]DrFish Younger PLT 414 103/ul Normal 150-450 [facility] Comment on above: Performed By: #### C BC ####[facility] [address] [address]DrFish Younger RBC 5.01 106/ul Normal 4.70-6.10 [facility] Comment on above: Performed By: #### C BC ####[facility] [address] [address]DrFish Younger WBC 11.7 103/ul Critically high 4.0-11.0 [facility] Comment on above: Performed By: #### C BC ####[facility] [address] [address]Dr. Cortez Younger PROF 14(COMP METB)on 022 Albumin [Mass/Vol] 3.8 g/dL Normal 3.4-5.0 [facility] Comment on above: Performed By: #### C BC #### [facility] [address] [place] [address] Dr. Cortez Younger Albumin/Globulin [Mass ratio] 1.3 {ratio} Normal [facility] Comment on above: Performed By: #### C BC #### [facility] [address] [address] [address] Cortez Younger ALP [Catalytic activity/Vol] 95 U/L Normal 46-116 [facility] Comment on above: Performed By: #### C BC #### [facility] [address] [address] [address] Cortez Younger ALT [Catalytic activity/Vol] 25 U/L Normal 16-63 [facility] Comment on above: Performed By: #### C BC #### [facility] [address] [address] [address] Cortez Younger Anion gap [Moles/Vol] 12.7 mmol/L Normal [facility] Comment on above: Performed By: #### C BC #### [facility] [address] [place] [address] Dr. Cortez Younger AST [Catalytic activity/Vol] 18 U/L Normal 15-37 [facility] Comment on above: Performed By: #### C BC #### [facility] [address] [place] [address] Dr. Cortez Younger Bilirubin [Mass/Vol] 0.3 mg/dL Normal 0.2-1.0 [facility] Comment on above: Performed By: #### C BC #### [facility] [address] [place] [address] Dr. Cortez Younger Calcium [Mass/Vol] mg/dL Normal 8.5-10.1 [facility] Comment on above: Performed By: #### C BC #### [facility] [address] [place] [address] Dr. Cortez Younger Chloride [Moles/Vol] 98 mmol/L Normal 98-107 [facility] Comment on above: Performed By: #### C BC #### [facility] [address] [place] [address] Dr. Cortez Younger CO2 [Moles/Vol] 28.9 mmol/L Normal 21.0-32.0 [facility] Comment on above: Performed By: #### C BC #### [facility] [address] [place] [address] Dr. Cortez Younger Creatinine [Mass/Vol] 0.84 mg/dL Normal 0.70-1.30 [facility] Comment on above: Performed By: #### C BC #### [facility] [address] [place] [address] Dr. Cortez Younger EGFR-AF BELGIAN >60 Normal >=60 [facility] Comment on above: Performed By: #### C BC #### [facility] [address] [place] [address] Dr. Cortez Younger EGFR-NON AF BELGIAN >60 Normal >=60 [facility] Comment on above: Performed By: #### C BC #### [facility] [address] [address] [address] Cortez Younger Globulin (S) [Mass/Vol] 3.0 g/dL Normal [facility] Comment on above: Performed By: #### C BC #### [facility] [address] [address] [address] Cortez Younger Glucose [Mass/Vol] 104 mg/dL Normal 74-106 [facility] Comment on above: Performed By: #### C BC #### [facility] [address] [address] [address] Cortez Younger Potassium [Moles/Vol] 3.6 mmol/L Normal 3.5-5.1 [facility] Comment on above: Performed By: #### C BC #### [facility] [address] [place] [address] Dr. Cortez Younger Protein [Mass/Vol] 6.8 g/dL Normal 6.4-8.2 [facility] Comment on above: Performed By: #### C BC #### [facility] [address] [place] [address] Dr. Cortez Younger Sodium [Moles/Vol] 136 mmol/L Normal 136-145 [facility] Comment on above: Performed By: #### C BC #### [facility] [address] [place] [address] Dr. Cortez Younger Urea nitrogen [Mass/Vol] 6.0 mg/dL Critically low 7.0-18.0 [facility] Comment on above: Performed By: #### C BC #### [facility] [address] [place] [address] Dr. Cortez Younger Urea nitrogen/Creatinin e [Mass ratio] 7.1 mg/mg Normal [facility] Comment on above: Performed By: #### C BC #### [facility] [address] [place] [address] Dr. Cortez Younger Consent for Procedure/Surger yon 10-15-2021 Consent for Procedure/Surgery [id number]: 127 Normal [facility] Patient Educationon 10-15-19 Patient Education Urology [...] these instructions at home: Medicines ? Take fyci-hso-jkrsges and prescription medicines only as told by [...] the blood stops without treatment. ? Take xiet-mod-wlfsfaw and prescription medicines only as told by your health care provider. ? Drink enough fluid to keep your urine clear or pale yellow. This information is not intended to replace advice given to you by your health care provider. Make sure you discuss any questions you have with your health care provider. Document Released: 06/29/2006 Document Revised: 11/23/2019 Document Reviewed: 08/01/2017 [employer] Patient Education ? 2019 [employer] [facility] Urology Office/Clinic Noteon 10-14-2021 Urology [...] [facility] [address] [place] [address]- Additional Instructions: Patient Education Hematuria, Adult Jaret Finley personally scribed for Dr. Graves on 10/14/2021 13:40:09. . Documentation recorded by the Sharonda yao accurately reflects the services(s) I performed and decis (more content not included)... Normal [facility] Comment on above: Result Comment: Elec tronically Signed By: Gustavo Graves Jr., MD\.br\Date and Time Signed: 10/14/21 13:47 EDT\.br\Electronically Co-Signed By: Jaret Benz\.br\Date and Time Co-Signed: 10/14/21 13:40 EDT SURGICAL PATH REPORTon 01-25 SURGICAL PATH REPORT [facility] Department of Pathology [address] [place] [id number] Name: HARISH MCKENNA : 1970 [facility] [id number] Number: Gender: Male Location: [facility] Admit 50 years Attending CRUZITO TOMLINSON JR Age: Provider: Ordering CRUZITO TOMLINSON JR Provider: Consulting: Surgical Pathology Report ACCESSION: COLLECTED DATE/TIME: RECEIVED DATE/TIME: PATHOLOGIST: [id number] 01/23/2021 12:05 EDT 01/24/2021 12:05 EDT ALVIN CADET MD Final Diagnosis Report for [facility] [place] ANTRUM, BIOPSY: - MILD CHRONIC GASTRITIS. - IMMUNOHISTOCHEMICAL STAIN FOR H. PYLORI ORGANISMS IS NEGATIVE. ALVIN CADET PATHOLOGIST (Electronic Signature) Date Verified 01/25/2021 TS Clinical Data PRE-OP DIAGNOSIS: Not specified POST-OP DIAGNOSIS: N/V, GERD, cyclic vomiting, gastritis PROCEDURES: EGD with biopsy SPECIMEN: Antrum gastritis / Ambulatory Surgery Gross Description Labeled antrum gastritis. Received in formalin on a sponge is a single irregular ruffni segment of soft tissue measuring 0.4 x 0.2 x 0.2 cm. The specimen is entirely submitted in one cassette. MP/ts 01/24/2021 Tissue pathology report for: [facility], [address] [place] [id number]; Print Date/ 01/25/2021 12:34 EDT Number: Time: [facility] Department of Pathology [address] [place] [address] Name: HARISH MCKENNA : 1970 [facility] [id number] Number: Gender: Male Location: [facility] Admit 50 years Attending CRUZITO TOMLINSON JR Age: Provider: Ordering CRUZITO TOMLINSON JR Provider: Consulting: Surgical Pathology Report ACCESSION: COLLECTED DATE/TIME: RECEIVED DATE/TIME: PATHOLOGIST: [id number] 01/23/2021 12:05 EDT 01/24/2021 12:05 EDT ALVIN CADET MD Gross Description PATHOLOGY SERVICES PROVIDED BY [facility] (CLIA #[id number]) in cooperation with [facility] at [address] [place] [address] (CLIA #[id number]) Microscopic Diagnosis NOTE: One or more of the reagents used to perform assays on this specimen MAY have contained components considered to be analyte specific reagents ( ASRs). ASRs have not been cleared or approved by the U.S. Food and Drug Administration. The performance characteristics of these assays have been determined by the Department of Pathology at [facility]. This assay was performed subsequent to the H and E examination. Appropriate positive and negative controls were examined with appropriate reactivity. Codes CPT CODE: 76838 + [id number] Print Date/ 01/25/2021 12:34 EDT Number: Time: Normal [facility] Comment on above: Performed By: #### [id number] #### [facility] Laboratory Services [address] [place], [place] [id number] Sales Training Representative: Alvin Cadet MD Vital Signs Date Time Vital Sign Value Performing Clinician Facility 11-01-2024 16:27-0400 Body height 177.8 cm Bubba Ghotra MD Work Phone: [facility] 11-01-2024 16:27-0400 Body mass index (BMI) [Ratio] 20.66 kg/m2 Bubba Ghotra MD Work Phone: [facility] 11-01-2024 16:27-0400 Body weight 65.32 kg Bubba Ghotra MD Work Phone: [facility] 09-28-2024 14:08-0400 Body height 177.8 cm Reba Posada PA Work Phone: [facility] 09-28-2024 14:08-0400 Body mass index (BMI) [Ratio] 20.66 kg/m2 Reba Posada PA Work Phone: [facility] 09-28-2024 14:08-0400 Body weight 65.32 kg Reba Posada PA Work Phone: [facility] 09-28-2024 14:08-0400 Diastolic blood pressure 62 mm[Hg] Reba Posada PA Work Phone: [facility] 09-28-2024 14:08-0400 Respiratory rate 16 /min Reba Posada PA Work Phone: [facility] 09-28-2024 14:08-0400 Systolic blood pressure 102 mm[Hg] Reba Posada PA Work Phone: [facility] 08-30-2024 15:51-0500 Body height 177.8 cm Bubba Ghotra MD Work Phone: [facility] 08-30-2024 15:51-0500 Body mass index (BMI) [Ratio] 20.95 kg/m2 Bubba Ghotra MD Work Phone: [facility] 08-30-2024 15:51-0500 Body weight 66.22 kg Bubba Ghotra MD Work Phone: [facility] 06-07-2024 15:45-0500 Body height 177.8 cm Reba Posada PA Work Phone: [facility] 06-07-2024 15:45-0500 Body mass index (BMI) [Ratio] 18.94 kg/m2 Reba Posada PA Work Phone: [facility] 06-07-2024 15:45-0500 Body weight 59.88 kg Reba Posada PA Work Phone: [facility] 06-07-2024 15:45-0500 Diastolic blood pressure 72 mm[Hg] Reba Posada PA Work Phone: [facility] 06-07-2024 15:45-0500 Heart rate 71 /min Reba Posada PA Work Phone: [facility] 06-07-2024 15:45-0500 Respiratory rate 16 /min Reba Posada PA Work Phone: [facility] 06-07-2024 15:45-0500 SaO2% (BldA) [Mass fraction] 94 % Reba Posada PA Work Phone: [facility] 06-07-2024 15:45-0500 Systolic blood pressure 112 mm[Hg] Reba Posada PA Work Phone: [facility] 05-10-2024 13:14-0400 Body height 177.8 cm [facility] 05-10-2024 13:14-0400 Body mass index (BMI) [Ratio] 19.3 kg/m2 [facility] 05-10-2024 13:14-0400 Body temperature 97.2 [degF] [facility] 05-10-2024 13:14-0400 Body weight 61 kg [facility] 05-10-2024 13:14-0400 Diastolic blood pressure 72 mm[Hg] [facility] 05-10-2024 13:14-0400 Systolic blood pressure 112 mm[Hg] [facility] 04-11-2024 16:32-0400 Body height 177.8 cm Reba Posada PA Work Phone: [facility] 04-11-2024 16:32-0400 Body mass index (BMI) [Ratio] 18.65 kg/m2 Reba Posada PA Work Phone: [facility] 04-11-2024 16:32-0400 Body weight 58.97 kg Reba Posada PA Work Phone: [facility] 04-11-2024 16:32-0400 Diastolic blood pressure 78 mm[Hg] Reba Posada PA Work Phone: [facility] 04-11-2024 16:32-0400 Heart rate 70 /min Reba Posada PA Work Phone: [facility] 04-11-2024 16:32-0400 Respiratory rate 16 /min Reba Posada PA Work Phone: [facility] 04-11-2024 16:32-0400 SaO2% (BldA) [Mass fraction] 96 % Reba Posada PA Work Phone: [facility] 04-11-2024 16:32-0400 Systolic blood pressure 120 mm[Hg] Reba Posada PA Work Phone: [facility] 04-04-2024 16:34-0400 Body height 177.8 cm Bubba Ghotra MD Work Phone: [facility] 04-04-2024 16:34-0400 Body mass index (BMI) [Ratio] 18.37 kg/m2 Bubba Ghotra MD Work Phone: [facility] 04-04-2024 16:34-0400 Body weight 58.06 kg Bubba Ghotra MD Work Phone: [facility] 04-04-2024 16:34-0400 Diastolic blood pressure 80 mm[Hg] Bubba Ghotra MD Work Phone: [facility] 04-04-2024 16:34-0400 Heart rate 71 /min Bubba Ghotra MD Work Phone: [facility] 04-04-2024 16:34-0400 SaO2% (BldA) [Mass fraction] 97 % Bubba Ghotra MD Work Phone: [facility] 04-04-2024 16:34-0400 Systolic blood pressure 140 mm[Hg] Bubba Ghotra MD Work Phone: [facility] 09-17-2023 14:59-0500 Body height 177.8 cm [facility] 09-17-2023 14:59-0500 Body mass index (BMI) [Ratio] 18.8 kg/m2 [facility] 09-17-2023 14:59-0500 Body temperature 98.1 [degF] [facility] 09-17-2023 14:59-0500 Body weight 59.42 kg [facility] 09-17-2023 14:59-0500 Diastolic blood pressure 45 mm[Hg] [facility] 09-17-2023 14:59-0500 Systolic blood pressure 82 mm[Hg] [facility] 03-25-2023 13:30-0400 Body height 177.8 cm Mahnaz Roth Other [facility] [place] Other 03-25-2023 13:30-0400 Body mass index (BMI) [Ratio] 18.65 kg/m2 Manhaz Roth Other [facility] [place] Other 03-25-2023 13:30-0400 Body temperature 98.4 [degF] Mahnaz Roth Other [facility] Other 03-25-2023 13:30-0400 Body weight 58.97 kg Mahnaz Roth Other [employer] Other 03-25-2023 13:30-0400 Diastolic blood pressure 87 mm[Hg] Mahnaz Roth Other [employer] Other 03-25-2023 13:30-0400 Systolic blood pressure 135 mm[Hg] Mahnaz Roth Other [employer] Other 12-24-2021 09:50-0400 Blood Pressure Location Gustavo Graves Jr. [facility] 12-24-2021 09:50-0400 Diastolic blood pressure 76 mm[Hg] Gustavo Graves Jr. [facility] 12-24-2021 09:50-0400 Heart rate 68 /min Gustavo Graves Jr. [facility] 12-24-2021 09:50-0400 Systolic blood pressure 132 mm[Hg] Gustavo Star Manley [facility] Encounters Encounter Date Encounter Type Care Provider Facility Start: 11-07-2024 End: 11-07-2024 ambulatory [facility] Work Phone: Start: 11-07-2024 End: 11-07-2024 Patient encounter procedure [facility] Work Phone: Start: 11-01-2024 End: 11-01-2024 [...] Not Available Start: 09-14-2024 End: 09-14-2024 ambulatory [facility] Start: 08-30-2024 End: 08-30-2024 Office outpatient visit 15 minutes Bubba Ghotra MD Work Phone: [facility] Comment on above: Urinary incontinence without sensory awareness; Post-void dribbling; Relapsing remitting multiple sclerosis (CMS/HCC) Start: 08-30-2024 End: 08-30-2024 ambulatory BUBBA GHOTRA Not Available Start: 08-23-2024 End: 08-23-2024 ambulatory [facility] Work Phone: Start: 08-23-2024 End: 08-23-2024 Patient encounter procedure [facility] Work Phone: Start: 08-10-2024 End: 08-10-2024 [...] 06-22-2024 Telephone encounter Reba RIGGINS Work Phone: [facility] [address] Comment on above: MED FOR MRI Start: 06-07-2024 End: 06-07-2024 ambulatory REBA POSADA Not Available Start: 06-07-2024 End: 06-07-2024 Office outpatient visit 25 minutes Reba RIGGINS Work Phone: [facility] [place] [address] Comment on above: Multiple [...] 05-16-2024 Refill Kenna Lockett RN Work Phone: [facility] Comment on above: Insomnia, unspecifie d type (Primary Dx); Relapsing remitting multiple sclerosis (CMS/HCC) Start: 05-10-2024 End: 05-10-2024 [facility] Work Phone: Start: 05-10-2024 End: 05-10-2024 Patient encounter procedure [facility] Work Phone: Start: 04-18-2024 End: 04-19-2024 Refill Elaina RIGGINS Work Phone: [facility] Comment on above: Cervical radiculopat hy; Sensory disturbance Start: 04-15-2024 End: 04-18-2024 Refill Kenna Lockett RN Work Phone: [facility] Comment on above: Venous insufficiency ; Relapsing remitting multiple sclerosis (CMS/HCC) Start: 04-14-2024 End: 04-14-2024 [facility] Work Phone: Start: 04-14-2024 End: 04-14-2024 Patient encounter procedure [facility] Work Phone: Start: 04-11-2024 End: 04-11-2024 ambulatory REBA POSADA Not Available Start: 04-11-2024 End: 04-11-2024 Office outpatient visit 25 minutes Reba Posada PA Work Phone: [facility] [place] [address] Comment on above: Multiple [...] Cervical radiculopathy Start: 03-04-2024 End: 03-04-2024 ambulatory [facility] Start: 01-19-2024 End: 01-19-2024 ambulatory [facility] Work Phone: Start: 01-19-2024 End: 01-19-2024 Patient encounter procedure [facility] Work Phone: Start: 12-23-2023 End: 12-23-2023 ambulatory BUBBA GHOTRA Not Available Start: 11-26-2023 End: 11-26-2023 ambulatory BUBBA GHOTRA Not Available Start: 11-18-2023 End: 11-18-2023 ambulatory [facility] Work Phone: Start: 11-18-2023 End: 11-18-2023 Patient encounter procedure [facility] Work Phone: Start: 09-17-2023 End: 09-17-2023 Patient encounter procedure [facility] Work Phone: Start: 08-26-2023 End: 08-29-2023 Non-patient / Non-visit [facility] Work Phone: Start: 08-21-2023 End: 08-21-2023 ambulatory Mahnaz Ira Other [employer] Other Start: 08-21-2023 Telephone encounter Mahnaz Tucker[facility] Start: 07-22-2023 End: 07-22-2023 ambulatory Mahnaz Tuckerraw Other [employer] Other Start: 07-22-2023 Telephone encounter Mahnaz Tuckerraw [facility] Start: 06-24-2023 End: 06-24-2023 ambulatory Mahnaz Ira Other [employer] Other Start: 06-24-2023 Telephone encounter Mahnaz Tuckerraw [facility] Start: 05-28-2023 End: 05-28-2023 ambulatory Mahnaz Ira Other [employer] Other Start: 05-28-2023 Telephone encounter Mahnaz Ira [facility] Start: 05-19-2023 End: 05-19-2023 ambulatory Mahnaz Ira Other [employer] Other Start: 05-19-2023 Office outpatient vi sit 15 minutes Mahnaz Ira [facility] Start: 04-21-2023 End: 04-21-2023 ambulatory Mahnaz Ira Other [employer] Other Start: 04-21-2023 Office outpatient vi sit 15 minutes Mahnaz Ira [facility] Start: 04-07-2023 End: 04-07-2023 ambulatory Mahnaz Ira Other [employer] Other Start: 04-07-2023 Telephone encounter Mahnaz Ira [facility] Start: 04-02-2023 End: 04-02-2023 ambulatory Mahnaz Ira Other [employer] Other Start: 04-02-2023 Telephone encounter Mahnaz Ira [facility] Start: 04-01-2023 End: 04-01-2023 ambulatory Mahnaz Ira Other [employer] Other Start: 04-01-2023 Telephone encounter Mahnaz Ira [facility] Start: 03-25-2023 End: 03-25-2023 ambulatory Mahnaz Ira Other [employer] Other Start: 03-25-2023 Office outpatient ne w 60 minutes Mahnaz Ira [facility] Start: 11-13-2022 End: 11-13-[address] DHALIA KIM . Facility:[facility] Start: 10-31-2022 End: 11-01-[address] BUBBA GHOTRA . Facility:[facility] Start: 10-16-2022 End: 10-16-2022 ambulatory NARENDRANATH LAKSHMIPATHY . Facility:[facility] Start: 10-16-2022 End: 10-17-2022 ambulatory NARENDRANATH LAKSHMIPATHY . Facility:[facility] Start: 10-07-2022 End: 10-07-[address] BUBBA GHOTRA . Facility:[facility] Start: 10-03-[address] BUBBA GHOTRA . Fac ility:[facility] Start: 09-16-2022 ambulatory LAMAR TURNER Facili ty:[facility] [place] Start: 06-26-2022 End: 06-27-[address] LISA [...] 12-24-2021 End: 12-25-2021 ambulatory Heri MURRELL Facility:[facility] [place] Start: 12-24-2021 End: 12-24-2021 Patient encounter procedure Gustavo Graves Jr. [facility] Start: 12-17-2021 End: 12-19-[address] DOCTOR BENNETT Facility:[facility] Start: 12-12-2021 End: 12-13-2021 ambulatory LAMAR TURNER Facility:[facility] Start: 12-05-2021 End: 12-06-2021 ambulatory Heri MURRELL Facility:[facility] Start: 12-05-2021 End: 12-05-2021 Patient encounter procedure Gustavo Graves Jr. [facility] Start: 12-05-2021 ambulatory Heri MURRELL Facility :[facility] Start: 12-03-2021 End: 12-04-2021 ambulatory REBA BINH Facility:[facility] Start: 10-14-2021 End: 10-15-2021 ambulatory Heri MURRELL Facility:[facility] Start: 09-19-2021 ambulatory Heri MURRELL Facility :[facility] Start: 12-11-2017 End: 12-12-2017 Patient encounter procedure Tunde Das Facility:[facility] Procedures Date Procedure Procedure Detail [...] Visit TONY CULVER [address] [place] [address] Reba Posada PA [address] [place], [place] [id number] [facility] Start: 12-22-2024 Medicare Annual Well ness (AWV) Medicare Annual Wellness (AWV) [facility] Start: 11-01-2024 End: 11-01-2024 Patient encounter procedure 11/01/2024 4:30 PM EDT Office Visit [facility] [address] [facility] [address] [place] [address] Bubba Ghotra MD [address] [facility] [address] [place] [address] (Fax) Arrived [facility] Comment on above: Arrived Start: 09-28-2024 End: 09-28-2024 Patient encounter procedure [facility] [place] [address] Start: 09-28-2024 End: 09-28-2025 CBC W Auto Differential panel - Blood CBC auto differential Lab Routine Multiple sclerosis ([facility]) Expected: 09/28/2024 (Approximate), Expires: 09/28/2025 [facility] Comment on above: Expected: 09/28/2024 (Approximate), Expires: 09/28/2025 Start: 09-28-2024 End: 09-28-2025 Comprehensive metabolic 2000 panel - Serum or Plasma Comprehensive metabolic panel Lab Routine Multiple sclerosis ([facility]) Expected: 09/28/2024 (Approximate), Expires: 09/28/2025 [facility] Comment on above: Expected: 09/28/2024 (Approximate), Expires: 09/28/2025 Start: 09-28-2024 End: 09-28-2025 IgG [Mass/volume] in Serum or Plasma IgG Lab Routine Multiple sclerosis ([facility]) Expected: 09/28/2024 (Approximate), Expires: 09/28/2025 [facility] Work Phone: Comment on above: Expected: 09/28/2024 (Approximate), Expires: 09/28/2025 Start: 09-12-2024 End: 09-12-2024 Patient encounter procedure 09/12/2024 2:45 PM EST Consult [facility] [address] [place] [id number] Krishna Hernandez DO [address] [place] [address] [facility] Start: 08-18-2024 End: 08-18-2024 Patient encounter procedure 08/18/2024 3:30 PM EST Office Visit [facility] [address] [place] [address] Bubba Ghotra MD [address] [place] [address] [facility] Start: 07-11-2024 End: 07-11-2024 Patient encounter procedure [facility] Comment on above: Primary hypertension (CMS/HCC); Primary insomnia; Mixed hyperlipidemia (CMS/HCC); Protein-calorie malnutrition, moderate (CMS/HCC) Start: 06-07-2024 End: 06-07-2024 Patient encounter procedure 06/07/2024 3:40 PM EST Office Visit [facility] [place] [address] [place] [phone] Reba Posada PA [address] [place] [address] [facility] [place] [address] Start: 05-13-2024 End: 04-12-2025 Sodium [Moles/volume] in Serum or Plasma Sodium Lab Routine Multiple sclerosis (CMS/HCC) Expected: 05/13/2024 (Approximate), Expires: 04/12/2025 [facility] Work Phone: Comment on above: Expected: 05/13/2024 (Approximate), Expires: 04/12/2025 Start: 05-10-2024 End: 05-10-2024 Patient encounter procedure 05/10/2024 1:20 PM EDT Office Visit [facility] [place] [address] [place] [address] Reba Posada PA [address] [place] [address] [facility] [place] [address] Start: 04-11-2024 End: 04-11-2024 Patient encounter procedure 04/11/2024 11:20 AM EDT Office Visit [facility] [place] [address] [place] [address] Reba Posada PA [address] [place] [address] [facility] [address] Start: 04-04-2024 End: 04-04-2024 Patient encounter procedure [facility] Comment on above: Primary hypertension (CMS/HCC); Simple chronic bronchitis (CMS/HCC); Panlobular emphysema (CMS/HCC); Gastroesophageal reflux disease without esophagitis; Mixed hyperlipidemia (CMS/HCC); Former smoker; Polypharmacy; Underweight Start: 1970 Screening for malign ant neoplasm of colon [facility] Immunizations Immunization Date Immunization Notes Care Provider Fa alexa 10-22-2020 SARS-CoV-2 (COVID-19 ) mRNA BNT-162b2 vax Gustavo Graves Jr. [facility] 10-01-2020 SARS-CoV-2 (COVID-19 ) mRNA BNT-162b2 vax Gustavo Graves Jr. [facility] Payers Date Payer Category Payer Medicare (Managed Care) 1.2. [id number] 2024 Medicare [id number] 2019 Medicaid [id number] .[id number] 2003 Medicare [id number] [id number] .[id number] 1969 Unknown [id number] 2.16.840.1.174939.3.579.2.727 1969 Unknown [id number] 2.16.840.1.678450.3.579.2.727 1969 Unknown [id number] 2.16.840.1.519074.3.579.2.727 1969 Unknown [id number] 2.16.840.1.675263.3.579.2.727 1969 Unknown [id number] 2.16.840.1.380274.3.579.2.727 1969 Unknown [id number] 2.16.840.1.231842.3.579.2.593 1969 Unknown [id number] 2.16.840.1.752044.3.579.2.593 1969 Unknown [id number] 2.16.840.1.753471.3.579.2.593 1969 Unknown [id number] 2.16.840.1.890234.3.579.2.593 1969 Unknown [id number] 2.16.840.1.796686.3.579.2.593 1969 Unknown [id number] 2.16.840.1.915222.3.579.2.593 1969 Unknown [id number] 2.16.840.1.658893.3.579.2.593 1969 Unknown [id number] 2.16.840.1.961243.3.579.2.593 1969 Unknown [id number] 2.16.840.1.525802.3.579.2.593 1969 Unknown [id number] 2.16.840.1.772629.3.579.2.593 1969 Unknown [id number] 2.16.840.1.401811.3.579.2.593 1969 Unknown [id number] 2.16.840.1.338954.3.579.2.593 1969 Unknown [id number] 2.16.840.1.899693.3.579.2.593 1969 Unknown [id number] 2.16.840.1.124322.3.579.2.593 1969 Unknown [id number] 2.16.840.1.575053.3.579.2.593 1969 Unknown [id number] 2.16.840.1.182533.3.579.2.593 1969 Unknown [id number] 2.16.840.1.725838.3.579.2.593 1969 Unknown [id number] 2.16.840.1.483373.3.579.2.593 1969 Unknown [id number] 2.16.840.1.566081.3.579.2.593 1969 Unknown [id number] 2.16.840.1.533913.3.579.2.593 1969 Unknown [id number] 2.16.840.1.419556.3.579.2.128 6 1969 Unknown [id number] 2.16.840.1.217658.3.579.2.128 6 1969 Unknown [id number] 2.16.840.1.091399.3.579.2.125 9 1969 Unknown [id number] 2.16.840.1.064332.3.579.2.125 9 1969 Unknown [id number] 2.16.840.1.038677.3.579.2.125 9 1969 Unknown [id number] 2.16.840.1.960216.3.579.2.125 9 1969 Unknown [id number] 2.16.840.1.942690.3.579.2.125 9 1969 Unknown [id number] 2.16.840.1.088801.3.579.2.125 9 1969 Unknown [id number] 2.16.840.1.751300.3.579.2.125 9 1969 Unknown [id number] 2.16.840.1.297045.3.579.2.125 9 1969 Unknown [id number] 2.16.840.1.514786.3.579.2.125 9 1969 Unknown [id number] 2.16.840.1.411248.3.579.2.125 9 1959 Medicaid [id number] 1960 Medicare [id number] 1960 Self-pay Private Health Insurance Unknown HCAP/HFA/FAP Active [id number] Social History Date Type Detail Facility Start: 10-14-2021 End: 12-23-2023 Tobacco smoking status Ex-smoker (finding) [facility] Start: 12-01-2022 End: 01-23-2023 Sex Assigned At Male [facility] Start: 1970 Sex Assigned At Male [facility] Start: 08-18-2008 End: 08-18-2023 History of tobacco [...] stat us NHIS Unknown if ever smoked [facility] Work Phone: Start: 08-23-2024 End: 11-07-2024 Sex Male (finding) [facility] Functional Status Date Assessment Result Facility 12-24-2021 Functional Status N/A [facility] Clinical Notes 12-05-2021 to 11-01-2024 [...] if needed for opioid reversal. Nebulizers (Compressor/Nebulizer) [facility] Use 4 times per day regularly and [...] to visit. 1. COPD with acute exacerbation ([facility]) (Primary) Chronic problem with acute exacerbation. [...] evaluation and management. documented in this encounter [facility] 10-24-2024 Telephone encount er Note You prescription sent [facility] 10-24-2024 Miscellaneous Notes Formattin g of this note might be different from the original. You prescription sent [facility] called back and stated that a PA [...] is being taken with the Abilify. ID# [id number] documented in this encounter [facility] 10-24-2024 Telephone encount er Note [facility] called back and stated that a PA does not need done if changes the script because it is a quantity issue. If he changes it to 100mg 0.5-1 tablet that should work with the extra after four hours of wakening. [facility] 10-20-2024 Telephone encount er Note They do not like the amount per day and that it is being taken with the Abilify. ID# [id number] [facility] 10-20-2024 Telephone encount er Note Prescription sent [facility] 10-20-2024 Miscellaneous Notes Formattin g of this note might be different from the original. Prescription sent Corinne from [facility] called, harish is in need of losartan (Cozaar) 100 MG metoprolol tartrate (Lopressor) 50 MG They are asking to be sent in by . They are filling his meds on Thursday. documented in this encounter [facility] 10-19-2024 Telephone encount er Note Corinne from [facility] called, harish is in need of losartan (Cozaar) 100 MG metoprolol tartrate (Lopressor) 50 MG They are asking to be sent in by . They are filling his meds on Thursday. [facility] 10-18-2024 Telephone encount er Note Please send Lyrica. I cannot get it to let me just decline the trileptal. Looks like we discontinued this last visit [facility] 10-18-2024 Miscellaneous Notes Formattin g of this note might be different from the original. Please send Lyrica. I cannot get it to let me just decline the trileptal. Looks like we discontinued this last visit documented in this encounter [facility] 09-28-2024 History of Presen t illness Narrative Subjective Harish Mckenna is a 54 y.o. year old male Chief Complaint Patient presents with Multiple Sclerosis Past Medical History: Diagnosis Date Anxiety Asthma ([facility]) Body mass index (BMI) of 21.0 to 21.9 in adult normal BMI BPH (benign prostatic hyperplasia) Cervical radiculopathy Cigarette smoker 12/01/2022 COPD (chronic obstructive pulmonary disease) ([facility]) ED (erectile dysfunction) Emphysema lung ([facility]) GERD (gastroesophageal reflux disease) Headache Herpes simplex 02/08/2008 Mononeuritis of lower limb 02/19/2012 MS (mitral stenosis) Multiple sclerosis ([facility]) 02/17/2008 Sleep disturbance 03/27/2011 Smoker Past Surgical History: Procedure Laterality Date KNEE SURGERY Left 04/2013 arthroscopy - Radha OTHER SURGICAL HISTORY 11/2021 urolift procedure, [facility], Dr. Graves DE LAP,CHOLECYSTECTOMY 11/16/2013 TONSILLECTOMY WISDOM TOOTH EXTRACTION Family [...] Review Audit Reviewed by Adia Laurent MA (Application Integration Specialist) on 09/28/24 at 1417 Medication Order Taking? Sig Documenting Provider Last Dose Status albuterol (2.5 MG/3ML) 0.083% nebulizer solution [id number] Take 3 mL (2.5 mg) by nebulization every 6 (six) hours if needed for wheezing Bubba Ghotra MD 08/30/24 2359 ARIPiprazole (Abilify) 5 MG tablet [id number] No Take 5 mg by mouth Daily Historical Provider, Taking Active baclofen (Lioresal) 20 MG tablet [id number] Take 1 tablet (20 mg) by mouth in the morning and 1 tablet (20 mg) in the evening and 1 tablet (20 mg) before bedtime. GILSON James 08/30/24 2359 budesonide-formoterol (Symbicort) 160-4.5 MCG/ACT inhaler [id number] Inhale 2 puffs in the morning and 2 puffs before bedtime. Bubba Ghotra MD Active Cannabinoids (medical cannabis) [id number] No Take 1 each by mouth Daily as needed. Bubba Ghotra MD Taking Active clonazePAM (KlonoPIN) 1 MG tablet [id number] No Take 1 mg by mouth in the morning and 1 mg before bedtime. Taking Active Docusate Sodium (DSS) 100 MG capsule [id number] Take 2 capsules by mouth Daily Active DULoxetine (Cymbalta) [address] capsule [id number] No Take 2 capsules by mouth in the morning. Historical Provider, Taking Active ipratropium (Atrovent) 0.06 % nasal spray [id number] Administer 2 sprays into each nostril in the morning and 2 sprays before bedtime. Bubba Ghotra MD Active losartan (Cozaar) 100 MG tablet [id number] Take 1 tablet (100 mg) by mouth Daily Bubba Ghotra MD Active meclizine (Antivert) 25 MG tablet [id number] No Take 25 mg by mouth 3 (three) times a day as needed for nausea. Historical Provider, Taking Active metoprolol tartrate (Lopressor) 50 MG tablet [id number] Take 1.5 tablets (75 mg) by mouth in the morning and 1.5 tablets (75 mg) before bedtime. Bubba Ghotra MD Active naloxone (Narcan) 4 mg/0.1 mL nasal spray [id number] No Administer 4 mg into affected nostril(s) if needed for opioid reversal. Historical Provider, Taking Active Nebulizers (Compressor/Nebulizer) [facility] [place] [id number] No Use 4 times per day regularly and every 4 hours as needed for shortness of breath and wheezing as directed Bubba Ghotra MD Taking Active Ocrevus 300 MG/10ML solution [id number] No Infuse into a venous catheter every 6 (six) months Bubba Ghotra MD Taking Active ondansetron ODT (Zofran-ODT) 4 MG disintegrating tablet [id number] Take 1 tablet (4 mg) by mouth every 8 (eight) hours if needed for nausea Bubba Ghotra MD Active OXcarbazepine (Trileptal) 300 MG tablet [id number] Take 1 tablet (300 mg) by mouth at bedtime GILSON James 08/30/24 2309 oxyCODONE (Roxicodone) 15 MG immediate release tablet [id number] Take 15 mg by mouth every 6 (six) hours if needed (pain) Bubba Ghotra MD Active oxygen (O2) gas [id number] No Inhale 2-3 L/min continuously via nasal canula Taking Active oxygen (O2) gas [id number] No Inhale oxygen via portable oxygen concentrator and nasal canula setting of 3 To maintain pulse ox saturation of 92% Bubba Ghotra MD Taking Active pantoprazole (ProtoNix) 40 MG EC tablet [id number] Take 1 tablet (40 mg) by mouth in the morning and 1 tablet (40 mg) before bedtime. Bubba Ghotra MD Active pregabalin (Lyrica) 200 MG capsule [id number] Take 1 capsule (200 mg) by mouth in the morning and 1 capsule (200 mg) in the evening and 1 capsule (200 mg) before bedtime. GILSON James 08/30/24 2359 primidone (Mysoline) 50 MG tablet [id number] Take 2 tablets (100 mg) by mouth at bedtime GILSON James 08/30/24 2359 promethazine (Phenergan) 25 MG tablet [id number] No Take 25 mg by mouth every 6 (six) hours if needed for nausea. Stan Blanchard MD Taking Active QUEtiapine (SEROquel) 50 MG tablet [id number] Take 1-2 tablets (50-100 mg) by mouth at bedtime May repeat in about 4 hours upon awakening Bubba Ghotra MD Active senna (Senokot) 8.6 MG tablet [id number] No Take 2 tablets by mouth 2 (two) times a day as needed for constipation Bubba Ghotra MD Taking Active sildenafil (Viagra) 100 MG tablet [id number] Take 1 tablet (100 mg) by mouth Daily as needed for erectile dysfunction Bubba Ghotra MD Active sodium chloride 0.9 % nebulizer solution [id number] Take 3 mL by nebulization every 4 (four) hours if needed for shortness of breath (and muus clearance) Bubba Ghotra MD Active spironolactone (Aldactone) 50 MG tablet [id number] Take 1 tablet (50 mg) by mouth [...] even hurts -follows with Palliative care at [facility], prescribed Oxycodone and was recently increased -tremors [...] triceps, wrist extensors, wrist extensors, wrist flexor, jumpbasting 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 LUE Strength deltoid, biceps, triceps, wrist extensors, wrist extensors, wrist flexor, jumpbasting 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 RLE Strength illopsoas, quadriceps, tibialis [...] all orders for this visit: Multiple sclerosis ([facility]) Neurogenic bladder History of RRMS which [...] or worsening symptoms documented in this encounter [facility] 08-30-2024 History of Presen t illness Narrative Patient ID: Harish Mckenna is a 54 y.o. male who presents for: Urinary Incontinence This is a ozib-pi-kjmx visit. Patient complains of urinary incontinence. This [...] if needed for opioid reversal. 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 I certify that I had a hgmm-sm-aekm encounter with this patient at [facility] office visit. Due to this medical condition the patient requires DME. I certify that based on my findings The DME ordered is medically necessary for this patient. This has been discussed with the patient and/or their member services representative and mutually agreed upon. 2. [...] of weight on. documented in this encounter [facility] 08-10-2024 History of Presen t illness Narrative Images from the original note were not included. Patient ID: Harish Mckenna is a 54 y.o. male who presents for: This note is in error. Harish was unable to connect to the telemedicine visit. Due to technical difficulties the visit can not be deleted out of the system. documented in this encounter [facility] 07-21-2024 Telephone encount er Note I called the patient and he is still taking the Trileptal 1 po at bedtime. [facility] 07-21-2024 Miscellaneous Notes Formattin g of this [...] if symptoms worsen. documented in this encounter [facility] 07-21-2024 Telephone encount er Note Please advise on Primidone Rx before sending. The last office visit just mentions 2 po at bedtime but the last refill sent is 1 po qam, 2 po at bedtime. Also his last office visit said to stop Trileptal and to resume if symptoms worsen. [facility] 07-11-2024 History of Presen t illness Narrative [...] minutes 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, must have a catshovel driver 1 tablet 0 Docusate Sodium (DSS) [...] if needed for opioid reversal. Nebulizers (Compressor/Nebulizer) [facility] Use 4 times per day regularly and [...] evaluation and management. documented in this encounter [facility] 06-24-2024 Telephone encount er Note RX sent [facility] 06-24-2024 Miscellaneous Notes Formattin g of this note might be different from the original. RX sent documented in this encounter [facility] 06-22-2024 Telephone encount er Note PATIENT CALLS ASKING FOR ANOTHER REFILL OF VALIUM FOR HIS MRI FOR TOMORROW. HIS MRI IS AT 2:30 PM ON 06/23/2024 BUT HAS TO LEAVE BY 2:00... ARE YOU ABLE TO SEND THIS IN FOR HIM? # [phone] [facility] 06-22-2024 Miscellaneous Notes Formattin g of this note might be different from the original. PATIENT CALLS ASKING FOR ANOTHER REFILL OF VALIUM FOR HIS MRI FOR TOMORROW. HIS MRI IS AT 2:30 PM ON 06/23/2024 BUT HAS TO LEAVE BY 2:00... ARE YOU ABLE TO SEND THIS IN FOR HIM? CB # [phone] documented in this encounter [facility] 05-16-2024 History of Presen t illness Narrative Pt lm, requests rx for Seroquel documented in this encounter [facility] 04-15-2024 History of Presen t illness Narrative SW spoke to pt, needs rx for Spironolactone. documented in this encounter [facility] 04-04-2024 History of Presen t illness Narrative [...] on healthy diet. documented in this encounter [facility] 03-23-2024 Telephone encount er Note Pharmacy requesting refills of primidone and lyrica. Pt last seen 07/09/2023. No appt scheduled. Would you like to fill medication. Please advise. [facility] 03-23-2024 Miscellaneous Notes Formattin g of this note might be different from the original. Pharmacy requesting refills of primidone and lyrica. Pt last seen 07/09/2023. No appt scheduled. Would you like to fill medication. Please advise. documented in this encounter [facility] 08-21-2023 Evaluation note Encounter Date Diagnosis Assessment Notes Aug, Chronic pain (ICD-10 - G89.29) OARRS reviewed, consistent with Rx. MME 60 mg/day [facility] Other 01-10-2024 Evaluation note* Encounter Date Diagnosis Assessment Notes Treatment Notes Treatment Clinical Notes Jul, Chronic pain (ICD-10 - G89.29) OARRS reviewed, consistent with Rx. Also has benzo prescribed by [facility] and pregabalin by neurology [facility] Other 12-13-2023 Evaluation note* Encounter Date Diagnosis Assessment Notes Treatment Notes Treatment Clinical Notes Jun, Chronic pain (ICD-10 - G89.29) [facility] Other 11-16-2023 Evaluation note* Encounter Date Diagnosis Assessment Notes Treatment Notes Treatment Clinical Notes May, Chronic pain (ICD-10 - G89.29) OARRS reviewed, consistent with Rx [facility] Other 11-07-2023 Evaluation note* Encounter Date Diagnosis [...] at bedtime instead of using PRN only [facility] Other 10-10-2023 Evaluation note* Encounter Date Diagnosis Assessment Notes Treatment Notes Treatment Clinical Notes Apr, Chronic pain (ICD-10 - G89.29) OARRS reviewed, consistent with Rx. Harish reports some relief with oxycodone 10 mg tabs, and is using med 3-4x/daily. Continue same without change. Apr, Constipation (ICD-10 - K59.00) Improved elimination with daily use of senna [facility] Other 09-26-2023 Evaluation note* Encounter Date Diagnosis [...] reported some lose stools after using routinely [facility] Other 09-20-2023 Evaluation note* Encounter Date Diagnosis Assessment Notes Treatment Notes Treatment Clinical Notes Mar, Chronic pain (ICD-10 - G89.29) OARRS reviewed, consistent with recent Rx. Increasing frequency of oxycodone to q6h PRN to improve pain control. Mar, Constipation (ICD-10 - K59.00) Harish is using Miralax daily but remains constipated, will add stimulant laxative [facility] Other 09-13-2023 Evaluation note* Encounter Date Diagnosis [...] of Constipation hand out provided to patient [facility] Other 04-06-2023 NoteCONSULTATION CONSULTATION DATE: 10/16/2022 TO: [...] 25 mg daily, Lyrica 200 mg t.i.d., [place] 7.5 mg b.i.d. He currently uses medical [...] THC if we are to continue with [place]. However, at this point, I do not [...] our patients to inform us about any zgdc-bsa-aowqsyx medications or herbal remedies/nutritional supplements/alternative remedies. 2. [...] treatment options with their primary care provider.[id number] Note CONSULTATION CONSULTATION DATE: 06/26/2022 HISTORY OF [...] Lyrica 200 mg t.i.d. per his neurologist, Springfield 7.5/325 b.i.d., Cymbalta, baclofen and Ocrevus. Patient's [...] medication changes today. He was increased to [place] 7.5/325 at his last visit, and the patient feels it is somewhat helpful. We will continue to medically manage him only. Patient will be seen in the clinic in three months' time unless otherwise indicated.[id number] NoteCONSULTATION CONSULTATION DATE: 03/13/2022 HISTORY OF PRESENT ILLNESS: This is 51-year-old gentleman, well known to the Pain Clinic, returning for a three month follow up. This gentleman has history of MS, chronic pain syndrome and diffuse neuropathic pain, which is chronically medically managed with a medication regimen. Current medications include Mobic 15 mg daily, Lyrica 200 mg t.i.d., [place] 5/325 t.i.d., baclofen, Trileptal and amitriptyline. Patient recently suffered a family loss and reportedly has lost about 12 pounds in weight. He does ambulate with a cane and is stable with that. He is requesting today that we change his [place] from t.i.d. to 7.5 b.i.d. as he [...] pain. PLAN: We will check from his [place] 5/325 t.i.d. to 7.5/325 b.i.d. We will maintain his other medications with no dose or frequency change. He will be given a U-Tox in the clinic today. I did discuss vitamin importance as well as supplementing his protein intake with Boost supplements. We will see the patient in three months' time, unless otherwise indicated. Patient is in agreement to this.[id number] Hospital Discharge instructions Patient Education 12/24/2021 10:47:00 [...] including vitamins, herbs, eye drops, creams, and ywgk-xkw-oujdygf medicines. This also includes: ?Medicines to assist [...] 08/01/2005 Document Revised: 06/11/2018 Document Reviewed: 04/05/2018 [employer] Patient Education 2020 [employer]. Follow Up Care 12/05/2021 14:04:21 With:Star Manley MD, Gustavo Orlando URO Address: [facility] [address], [place] [address]- When:Within 6 Month(s) Comments:w/ PVR [facility] 05-26-2022 Note [id number]:127[facility] 12-05-2021 NoteUrolift ? Some men may [...] to use a Coude (pronouncedcoo-day) tipped catheter.[facility]05-26-2022 Hospital Discharge instructions Patient Education 12/05/2021 [...] [facility] [address], [place] [address]- Business (1) When:2 to 4 weeks Comments:PVR with [facility] Future Appointments Appointment Date:12/24/2021 09:30:00 AM Scheduled Provider:Gustavo Graves Jr., MD Location:[facility] Appointment Type:URO [facility] Future Appointments Appointment Date:07/01/2022 10:45:00 AM Scheduled Provider:Gustavo Graves Jr., MD Location:[facility] Appointment Type:URO Office Visit [facility] evaluation noteNo Gust Other evaluation note* Diagnosis Onset Date Resolution Status Chronic pain acute Constipation acute assisted (current) use of opiate analgesic acute Multiple sclerosis [facility] Work Phone: evaluation note* Diagnosis Onset Date Resolution Status Chronic pain acute Constipation acute Multiple sclerosis [facility] Work Phone: evaluation note* Diagnosis Multiple [...] pain syndrome acute Constipation acute Multiple sclerosis [facility] Work Phone: Evaluation note* Diagnosis Insomnia, [...] [facility] assessment [facility] Work Phone: Evaluation note* Diagnosis Urinary [...] bipolar Medical History GERD Surgical History cholecystectomy [facility] Other Hospital course Narrative No data available for this section 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 (current) use of opiate analgesic Multiple sclerosis [...] section and content) DATE CREATED AUTHOR 09/18/2018 [facility] DATE CREATED AUTHOR AUTHOR'S ORGANIZ ATION 01/25/2021 [facility] DATE CREATED AUTHOR AUTHOR'S ORGANIZ ATION 09/16/2022 [facility] DATE CREATED AUTHOR AUTHOR'S ORGANIZ ATION 11/18/2022 [facility] [place] [facility] DATE CREATED AUTHOR AUTHOR'S ORGANIZ ATION 09/16/2024 [facility] DATE CREATED AUTHOR AUTHOR'S ORGANIZ ATION 11/02/2024 [facility] dical Specialists EPIC Care Team [...] September 17, 2023 End: September 17, 2023 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 [place] [address] (Fax) PCP - General Family Medicine 11/27/22 Bubba Ghotra MD [address] [facility] [place] [address] (Fax) PCP - ACO Reach 12/04/22 Elaina Burgess PA [address] [place] [address] Physician Data Operations Leader Neurology 12/02/23 Kenna Lockett, GRAHAM Registered Nurse Family Medicine 12/02/23 Maty Win MD [address] [place] [address] Referring Physician [facility] 12/02/23 Team Status: Inactive Member Role Status Dates Bubba Ghotra MD Primary Care Provider Active Start: April 14, 2024 End: April 14, 2024 Mahnaz Roth APRN Attending Provider Active Start: April 14, 2024 End: April 14, 2024 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 Start Date End Date Bubba Ghotra MD [address] [place] [address] (Fax) PCP - General Family Medicine 11/27/22 Bubba Ghotra MD [address] [place] [address] (Fax) PCP - ACO Reach 12/04/22 Elaina Burgess PA [address] [place] [phone] Physician Data Operations Leader Neurology 12/02/23 Kenna Lockett, RN Registered Nurse Family Medicine 12/02/23 Maty Win MD [address] [place] [address] Referring Physician [facility] 12/02/23 Team Status: Inactive Member Role Status Dates Bubba Ghotra MD Primary Care Provider Active Start: May 10, 2024 End: May 10, 2024 Mahnaz Roth APRN Attending Provider Active Start: May 10, 2024 End: May 10, 2024 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 Start Date End Date Bubba Ghotra MD [address] [address] (Fax) PCP - General Family Medicine 11/27/22 Bubba Ghotra MD [address] [address] (Fax) PCP - ACO Reach 12/04/22 Elaina Burgess PA [address] [place] [address] Physician Data Operations Leader Neurology 12/02/23 Kenna Lockett, RN Registered Nurse Family Medicine 12/02/23 Maty Win MD [address] [place], [place] [phone] Referring Physician Behavioral Health 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 Start Date End Date Bubba Ghotra MD [address] [place] [address] (Fax) PCP - General Family Medicine 11/27/22 Bubba Ghotra MD [address] [place] [address] (Fax) PCP - ACO Reach 12/04/22 Elaina Burgess PA [address] [place], [place] [phone] Physician Data Operations Leader Neurology 12/02/23 Kenna Lockett, RN Registered Nurse Family Medicine 12/02/23 Maty Win MD [address] [place] [phone] Referring Physician Behavioral Health 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 Start Date End Date Bubba Ghotra MD [address] [place] [address] (Fax) PCP - General Family Medicine 11/27/22 Bubba Ghotra MD [address] [place] [address] (Fax) PCP - ACO Reach 12/04/22 Elaina Burgess PA [address] [place], [place] [phone] Physician Data Operations Leader Neurology 12/02/23 Kenna Lockett, RN Registered Nurse Family Medicine 12/02/23 Maty Win MD [address] [place] [address] Referring Physician Behavioral Health 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 Start Date End Date Bubba Ghotra MD [address] [place] [address] (Fax) PCP - General Family Medicine 11/27/22 Bubba Ghotra MD [address] [place] [address] (Fax) PCP - ACO Reach 12/04/22 Elaina Burgess PA [address] 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 Start Date End Date Bubba Ghotra MD [address] [place] [address] (Fax) PCP - General Family Medicine 11/27/22 Bubba Ghotra MD [address] [place] [address] (Fax) PCP - ACO Reach 12/04/22 Elaina Burgess PA [address] [place] [address] Physician Data Operations Leader Neurology 12/02/23 Kenna Lockett, GRAHAM Registered Nurse Family Medicine 12/02/23 Maty Win MD [address] [place] [address] Referring Physician Behavioral Health 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 Start Date End Date Bubba Ghotra MD [address] [place] [address] (Fax) PCP - General Family Medicine 11/27/22 Bubba Ghotra MD [address] [place] [address] (Fax) PCP - ACO Reach 12/04/22 Elaina Burgess PA [address] [place] [address] Physician Data Operations Leader Neurology 12/02/23 Kenna Lockett, GRAHAM Registered Nurse Family Medicine 12/02/23 Maty Win MD [address] [place] [address] Referring Physician Behavioral Health 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 Start Date End Date Bubba Ghotra MD [address] [place] [address] (Fax) PCP - General Family Medicine 11/27/22 Bubba Ghotra MD [address] [facility] [address] [place] [address] (Fax) PCP - ACO Reach 12/04/22 Elaina Burgess PA [address] [place] [address] Physician Data Operations Leader Neurology 12/02/23 Kenna Lockett, RN Registered Nurse Family Medicine 12/02/23 Maty Win MD [address] [place] [address] Referring Physician Behavioral Health 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 Start Date End Date Bubba Ghotra MD [address] [place] [address] (Fax) PCP - General Family Medicine 11/27/22 Bubba Ghotra MD [address] [place] [address] (Fax) PCP - ACO Reach 12/04/22 Elaina Burgess PA [address] [place] [phone] Physician Data Operations Leader Neurology 12/02/23 Kenna Lockett, RN Registered Nurse Family Medicine 12/02/23 Maty Win MD [address] [place] [address] Referring Physician Behavioral Health 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 Start Date End Date Bubba Ghotra MD [address] [place] [address] (Fax) PCP - General Family Medicine 11/27/22 Bubba Ghotra MD [address] [place] [address] (Fax) PCP - ACO Reach 12/04/22 Elaina Burgess PA [address] [place] [address] Physician Data Operations Leader Neurology 12/02/23 Kenna Lockett, GRAHAM Registered Nurse Family Medicine 12/02/23 Maty Win MD [address] [place] [address] Referring Physician Behavioral Health 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 Start Date End Date Bubba Ghotra MD [address] [place] [address] (Fax) PCP - General Family Medicine 11/27/22 Bubba Ghotra MD [address] [place] [address] (Fax) PCP - ACO Reach 12/04/22 Elaina Burgess PA [address] [address] Physician Data Operations Leader Neurology 12/02/23 Kenna Lockett, RN Registered Nurse Family Medicine 12/02/23 Maty Win MD [address] [place] [address] Referring Physician Behavioral Health 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 Start Date End Date Bubba Ghotra MD [address] [place] [address] (Fax) PCP - General Family Medicine 11/27/22 Bubba Ghotra MD [address] [place] [address] (Fax) PCP - ACO Reach 12/04/22 Elaina Burgess PA [address] [place] [address] Physician Data Operations Leader Neurology 12/02/23 Kenna Lockett, GRAHAM Registered Nurse Family Medicine 12/02/23 Maty Win MD [address] [place] [address] Referring Physician Behavioral Health 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 Start Date End Date Bubba Ghotra MD [address] [place] [address] (Fax) PCP - General Family Medicine 11/27/22 Bubba Ghotra MD [address] [place] [address] (Fax) PCP - ACO Reach 12/04/22 Elaina Burgess PA [address] [place] [address] Physician Data Operations Leader Neurology 12/02/23 Kenna Lockett, RN Registered Nurse Family Medicine 12/02/23 Maty Win MD [address] [place] [address] Referring Physician Behavioral Health 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 Start Date End Date Bubba Ghotra MD [address] [place] [address] (Fax) PCP - General Family Medicine 11/27/22 Bubba Ghotra MD [address] [place] [address] (Fax) PCP - ACO Reach 12/04/22 Elaina Burgess PA [address] [place] [address] Physician Data Operations Leader Neurology 12/02/23 Kenna Lockett, RN Registered Nurse Family Medicine 12/02/23 Maty Win MD [address] [place] [address] Referring Physician Behavioral Health 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 Start Date End Date Bubba Ghotra MD [address] [place] [address] (Fax) PCP - General Family Medicine 11/27/22 Bubba Ghotra MD [address] [place] [address] (Fax) PCP - ACO Reach 12/04/22 Elaina Burgess PA [address] [place] [address] Physician Data Operations Leader Neurology 12/02/23 Kenna Lockett, RN Registered Nurse Family Medicine 12/02/23 Maty Win MD [address] [place] [address] Referring Physician Behavioral Health 12/02/23 Team Status: Inactive Member Role Status Dates Bubba Ghotra MD Primary Care Provider Active Start: August 23, 2024 End: August 23, 2024 Mahnaz Roth APRN Attending Provider Active Start: August 23, 2024 End: August 23, 2024 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 Start Date End Date Bubba Ghotra MD [address] [facility] [address] [place] [address] (Fax) PCP - General Family Medicine 11/27/22 Bubba Ghotra MD [address] [address] (Fax) PCP - ACO Reach 08/26/24 Elaina Burgess PA [address] [place] [phone] Physician Data Operations Leader Neurology 12/02/23 Kenna Lockett, RN Registered Nurse Family Medicine 12/02/23 Maty Win MD [address] [place] [id number] Referring Physician Behavioral Health 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 Start Date End Date Bubba Ghotra MD [address] [address] (Fax) PCP - General Family Medicine 11/27/22 Bubba Ghotra MD [address] [address] (Fax) PCP - ACO Reach 08/26/24 Elaina Burgess PA [address] [place] [address] Physician Data Operations Leader Neurology 12/02/23 Kenna Lockett, GRAHAM Registered Nurse Family Medicine 12/02/23 Maty Win MD Referring Physician Behavioral Health 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 Start Date End Date Bubba Ghotra MD [address] [place] [address] (Fax) PCP - General Family Medicine 11/27/22 Elaina Burgess PA [address] [place] [address] Physician Data Operations Leader Neurology 12/02/23 Kenna Lockett RN Registered Nurse Family Medicine 12/02/23 Maty Win MD Referring Physician Behavioral Health 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 Start Date End Date Bubba Ghotra MD [address] [place] [address] (Fax) PCP - General Family Medicine 11/27/22 Elaina Burgess PA [address] [place] [address] Physician Data Operations Leader Neurology 12/02/23 Kenna Lockett RN Registered Nurse Family Medicine 12/02/23 Maty Win MD Referring Physician Behavioral Health 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 Start Date End Date Bubba Ghotra MD [address] [place] [address] PCP - General Family Medicine 11/27/22 Elaina Burgess PA [address] [place] [address] Physician Data Operations Leader Neurology 12/02/23 Kenna Lockett, RN Registered Nurse Family Medicine 12/02/23 Maty Win MD Referring Physician Behavioral Health 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 Start Date End Date Bubba Ghotra MD [address] [place] [address] [address] [place] [address] PCP - General Family Medicine 11/27/22 Elaina Burgess PA [address] [place] [address] Physician Data Operations Leader Neurology 12/02/23 Kenna Lockett, GRAHAM Registered Nurse [...] BE BASED ON THE PRIMARY CLINICAL RECORDS. [facility] [employer] [facility]. provides no warranty or guarantee of the accuracy or completeness of information in this document.
[2024-11-20] MEDS: BUDESONIDE 0.5 MG/2 ML AMPULE NEB IH ×2 (11:14→22:36)
[2024-11-20] MEDS: PRIMIDONE 50 MG TABLET 100 MG PO (20:05)
[2024-11-20] MEDS: GUAIFENESIN 200 MG/DEXTROMETHORPHAN 20 MG 10 ML UNIT DOSE CUP PO (21:12)
[2024-11-21] VITALS (11 sets, daily range): BP systolic 130–134; BP diastolic 79–86; PULSE 62–81; TEMP 36.5–36.8; O2SAT 89–97; BMI 20.8
[2024-11-21] MEDS: CEFTRIAXONE 1,000 MG in 0.9 % SODIUM CHLORIDE 50 ML 100 MG IV (03:22)
[2024-11-21] MEDS: AZITHROMYCIN 500 MG in 0.9 % SODIUM CHLORIDE 250 ML 250 MG IV (03:52)
[2024-11-21] MEDS: BACLOFEN 10 MG TABLET 20 MG PO ×2 (04:26→14:43)
[2024-11-21] MEDS: IPRATROPIUM/ALBUTEROL SULFATE 3 ML AMPUL.NEB IH ×3 (05:20→17:19)
[2024-11-21] MEDS: METHYLPREDNISOLONE SOD SUCC PF 40 MG/ML VIAL IVP ×3 (05:21→18:19)
[2024-11-21] MEDS: PREGABALIN 100 MG CAPSULE 200 MG PO ×2 (05:21→14:43)
[2024-11-21] MEDS: LACTATED RINGER'S SOLUTION 1,000 ML 125 ML IV (05:23)
[2024-11-21 06:34] LABS: Hematocrit 31.1 % (42.0-54.0); Hemoglobin 10.4 g/dL (14.0-18.0); Mean Corpuscular HGB Conc 33.4 g/dL (29.9-35.2); Mean Corpuscular Hemoglobin 30.1 pg (25.9-34.0); Mean Corpuscular Volume 89.9 fL (80.0-94.0); Platelet Count 333 10^3/uL (150-450); Red Blood Count 3.46 10^6/uL (4.70-6.10); Red Cell Distribution Width 14.4 % (11.0-15.0); White Blood Count 21.8 10^3/uL (4.0-11.0)
[2024-11-21 06:47] LABS: Atypical Lymphocytes Abs Man 0.21; Lymphocytes Absolute Manual 0.43 10^3/uL (1.20-3.80); Monocytes Absolute Manual 0.43 10^3/uL (0.30-0.80); Segmented Neut Absolute Manual 20.71 10^3/uL (1.4-6.5)
[2024-11-21 06:56] LABS: Alanine Aminotransferase 26 U/L (16-63); Albumin Globulin Ratio 0.8; Albumin Level 2.5 g/dL (3.4-5.0); Alkaline Phosphatase 68 U/L (46-116); Anion Gap 14.2; BUN Creatinine Ratio 15.7; Bilirubin Total 0.3 mg/dL (0.2-1.0); Calcium 8.6 mg/dL (8.5-10.1); Chloride 106 mmol/L (98-107); Estimated GFR (African America >60 (>=60 mL/min/1.73m^2); Estimated GFR (Non-African Ame >60 (>=60 mL/min/1.73m^2); Glucose 124 mg/dL (74-106); Potassium 4.2 mmol/L (3.5-5.1); Sodium 143 mmol/L (136-145); Total Protein 5.5 g/dL (6.4-8.2)
[2024-11-21 07:08] LABS: Aspartate Amino Transferase 17 U/L (15-37)
--- NOTE | 2024-11-21 08:11 | P.DS_ITS ---
DS: Providers Provider Date of admission: 11/20/24 08:07 Primary care physician: RANDALL GHOTRA Attending physician on admission: Elva Lipscomb Discharging clinician: Elva Lipscomb DS: Diagnosis Discharge Diagnosis (1) Community acquired bacterial pneumonia: (2) Acute hypoxic respiratory failure: (3) Hypertension: Qualifiers: Hypertension type: primary hypertension Qualified Code(s): I10 - Essential (primary) hypertension (4) Multiple sclerosis: (5) Chronic respiratory failure with hypoxia: (6) COPD (chronic obstructive pulmonary disease): Qualifiers: COPD type: emphysema Emphysema type: panlobular Qualified Code(s): J43.1 - Panlobular emphysema (7) Depression with anxiety: DS: Summary Hospital Course Hospital Course: Patient is a 54-year-old male patient with a complicated past medical history including advanced MS, COPD with chronic respiratory failure with hypoxia, on 3L of oxygen via [place], depression, anxiety and hypertension; who presented to the ED on 11/19/24 complaining of shortness of breath x 1 week. He reports he was able to see his pcp and was given a steroid taper that he finished about 2 days ago. He also developed a cough, non productive, and no fever but chills. He increased his oxygen to 6 Liters at home and was brought to the ER today. He currently is not smoking, quit about 2 years ago. He has anxiety which worsens at hospitals. He has been using his nebulizer treatments without good results. Takes opioids for generalized pain from his MS. He denies any n/v/d. ER findings: CXR with Right sided infiltrate, WBC 9.7, hb 13, Cr 1.3, BUN 15, ABG: pH 7.6, PCO2 22, O272, and 96% on 6 Liter, D-dimer 1.5, trop 50, UA negative; Patient had CTA of the chest showed no evidence of PE, but airspace disease of the right lower lung to suggest pneumonia, and bronchial wall thickening to suggest bronchitis. Paitient was Continued on Rocephin and Azith, blood cultures negative. IV solumedrol 40mg [id number] which did lead to Leukocytosis, neb treatments, pulmicort and OPEP. On 11/20/24 he was back to his 3L via [place] oxygen and taken off Stepdown status. A Lria Cath was placed due to acute urinary retention but was removed at the time of discharge. Labs are stable (other than leukocytosis of 21.8 due to steroids), and vitals are stable on home oxygen requirement. He will be discharged home today on Z-robert x 5 days, Omnicef 300mg BID x 7days and Prednisone 40mg daily x 7 days. He will have close follow up with his PCP within the week. He is encouraged to use his OPEP at home and Albuterol inhaler. He may return to the ER with any worsening signs or symptoms. Status at Discharge Functional status at discharge: independent ambulation Overall status at discharge: patient is progressing back to baseline Time Spent with Patient Time attestation: Total time spent providing and/or coordinating discharge services: Time spent: greater than 30 minutes Exam Narrative Exam Narrative: General: Patient is alert, and oriented to person, place and time Skin: no visible rashes, or ulcers Head: atraumatic, acephalic Eyes: PERRLA, no nystagmus present, conjunctiva clear, no scleral icterus Ears: normal gross auditory acuity Neck: no masses palpated Heart: Normal rate and rhythm, no murmurs/rubs/gallops Lungs: no audible wheezes, crackles and normal breath sounds all lung parry Abdomen: Normal audible bowel sounds, no distension, No palpable masses, no organomegaly, no rebound/guarding/ or rigidity Musculoskeletal: muscle atrophy noted, ROM is limited due to being in hospital bed, no swelling bilateral lower extremities Neuro: CN II-X grossly intact Constitutional Vital Signs, click to edit/add: Last Vital Signs Temp 97.7 F 11/21/24 07:49 Pulse 68 11/21/24 07:49 Resp 16 11/21/24 07:49 BP 134/79 11/21/24 07:49 Pulse Ox 97 11/21/24 07:49 O2 Del Method Nasal Cannula 11/21/24 07:49 O2 Flow Rate 3 11/21/24 07:49 DS: Data Data Completed and Pending Labs on day of discharge: Labs from last 24 hours 11/21/24 06:16 WBC 21.8 H RBC 3.46 L Hgb 10.4 L Hct 31.1 L MCV 89.9 MCH 30.1 MCHC 33.4 RDW 14.4 Plt Count 333 MPV 10.0 Seg Neuts % (Manual) 95.0 H Lymphocytes % (Manual) 2.0 L Atypical Lymphs % (Man) 1.0 Monocytes % (Manual) 2.0 Eosinophils % (Manual) 0.0 L Basophils % (Manual) 0.0 L Neutrophils # (Manual) 20.71 H Lymphocytes # (Manual) 0.43 L Abs Atypical Lymphs Man 0.21 Monocytes # (Manual) 0.43 Eosinophils # (Manual) 0.00 Basophils # (Manual) 0.00 Sodium 143 Potassium 4.2 Chloride 106 Carbon Dioxide 27.0 Anion Gap 14.2 BUN 14.0 Creatinine 0.89 Est GFR ( Amer) >60 Est GFR (Non-Af Amer) >60 BUN/Creatinine Ratio 15.7 Glucose 124 H Calcium 8.6 Total Bilirubin 0.3 AST 17 ALT 26 Alkaline Phosphatase 68 Total Protein 5.5 L Albumin 2.5 L Globulin 3.0 Albumin/Globulin Ratio 0.8 Discharge Plan Discharge Disposition: Home, Self-Care Condition: Good Discharge Medications: New azithromycin 250 mg tablet See Rx Instructions .ROUTE .COMPLEX Qty: 6 0RF Rx Instructions: For 250 mg dose pack: take 500 mg today (day 1), then 250 mg for 4 days (days 2-5) cefdinir 300 mg capsule 300 mg PO BID 7 Days Qty: 14 0RF prednisone 20 mg tablet 20 mg PO BID 7 Days Qty: 14 0RF Continued primidone 50 mg tablet 100 mg PO .QHS albuterol sulfate 2.5 mg /3 mL (0.083 %) solution for nebulization 2.5 mg inhalation Q6H PRN (Reason: shortness of breath or wheezing) clonazepam 1 mg tablet 1 mg PO Q12H metoprolol tartrate 50 mg tablet 75 mg PO Q12H losartan 100 mg tablet 100 mg PO DAILY duloxetine 60 mg capsule,delayed release(DR/EC) 120 mg PO DAILY pregabalin 200 mg capsule 200 mg PO Q8H budesonide-formoterol [Symbicort] 160-4.5 mcg/actuation HFA aerosol inhaler 2 puff INHALATION Q12H baclofen 20 mg tablet 20 mg PO Q8H pantoprazole 40 mg tablet,delayed release (DR/EC) 40 mg PO BID sennosides [senna] 8.6 mg tablet 17.2 mg PO BID PRN (Reason: constipation) aripiprazole 5 mg tablet 5 mg PO DAILY oxycodone 15 mg tablet 15 mg PO Q6H PRN (Reason: pain) spironolactone 50 mg tablet 50 mg PO DAILY Activity: increase activity as tolerated and wear oxygen at all times Activity Detail: 3L continuous via [place] Diet: advance to your usual diet Print Language: Upper Sorbian Forms: Portal Instructions Follow Up Appointments: Please follow up with PCP within 5-7 days
[2024-11-21] MEDS: OXYCODONE HCL 15 MG TABLET PO (08:18)
[2024-11-21] MEDS: SPIRONOLACTONE 25 MG TABLET 50 MG PO (08:18)
[2024-11-21] MEDS: CLONAZEPAM 0.5 MG TABLET 1 MG PO (08:18)
[2024-11-21] MEDS: LOSARTAN POTASSIUM 50 MG TABLET 100 MG PO (08:18)
[2024-11-21] MEDS: METOPROLOL TARTRATE 50 MG TABLET 75 MG PO (08:19)
[2024-11-21] MEDS: ENOXAPARIN SODIUM 40 MG/0.4 ML SYRINGE SUBQ (08:19)
[2024-11-21] MEDS: PANTOPRAZOLE SODIUM 40 MG TABLET.DR PO (08:19)
[2024-11-21] MEDS: ARIPIPRAZOLE 5 MG TABLET PO (08:19)
[2024-11-21] MEDS: DULOXETINE HCL 60 MG CAPSULE.DR 120 MG PO (08:19)
--- NOTE | 2024-11-21 10:00 | CM.NOTE ---
Rounds made with Dr. Lipscomb. Dr. Lipscomb reviews plan of care and potential discharge today. Harish verbalizes understanding.
--- NOTE | 2024-11-21 10:06 | SWNOTE1 ---
SW met with pt to discuss dc needs. Pt lives at home with family. Pt uses a rollator or walker, home oxygen, and has 2 power chairs. Pt voiced he wears 3 liters home oxygen, thinks it is [employer]. Pt stated he has been doing well. He stopped smoking and him and his ex are on good terms and good friends. Pt voiced he has had MS for 25 years. He stated he is still getting around fairly well. Pt voiced he has no needs at discharge at this time. SW to follow as needed.
--- NOTE | 2024-11-21 10:08 | SWNOTE1 ---
Medicare Outpatient Observation Notice reviewed and discussed with patient. Pt. verbalized understanding and signed the form. Original given to patient and copy placed in patient?s chart.
[2024-11-21] MEDS: BUDESONIDE 0.5 MG/2 ML AMPULE NEB IH (11:18)
--- NOTE | 2024-11-21 17:33 | PC.NURSE ---
patient was bladder scanned and measured 390ml, patient initially wanted to go home with a ladd but changed his mind and would rather get straight cathed x1 and kept another night to see if he can pee on his own by tomorrow. Dr. Lipscomb made aware and okay'd
--- NOTE | 2024-11-21 18:16 | PC.NURSE ---
after further discussion with patient and physician, plan changed. Patient will go home after straight cath x1 and administration of flomax per orders. Patient will be given information and number of urology for him to make a follow up appointment, and script will be sent to pharmacy for flomax. Patient will be instructed to return to the hospital if he continues to have trouble peeing. Physician and patient ok with plan.
[2024-11-21] MEDS: TAMSULOSIN HCL 0.4 MG CAPSULE PO (18:19)
--- NOTE | 2024-11-22 13:38 | CM.DCFOLLOWU ---
1st attempt 11/22/24, no answer
--- NOTE | 2024-11-22 15:09 | CM.DCFOLLOWU ---
Person spoke with:patient How are you feeling? doing better, urinating better How is your pain?none Did you understand your discharge instructions? yes Do you have any questions about your discharge instructions? no Were you given any prescriptions at discharge? yes Were you able to get your prescriptions filled? patient called hospital about Flomax prescription, DANITA spoke with him. DANITA then reached out to Dr. Lipscomb and she will call in the Flomax script right now. SW called patient back and updated him. He would like script called in to [facility]. DANITA let Dr. Lipscomb know Do you understand how to take your medications as ordered?yes Do you have any questions about your follow up appointment and do you plan to keep your follow up appointment? no Is there anything else that you would like to discuss?no Questions/Comments/Concerns/Other:none
== END 2024-11-21 18:36 | disposition home or self-care (01) ==
LOC: ER 08:51 → MS 11-21 09:16
PROVIDERS: Admitting Provider Family Medicine; Emergency Provider Internal Medicine; PCP Family Medicine; Visit Provider Family Medicine
DX: J15.9 Unspecified bacterial pneumonia (principal); J96.21 Acute and chronic respiratory failure with hypoxia; J44.0 Chronic obstructive pulmonary disease with (acute) lower respiratory infection; R39.198 Other difficulties with micturition; G35 Multiple sclerosis; I10 Essential (primary) hypertension; J43.1 Panlobular emphysema; F41.8 Other specified anxiety disorders; Z99.81 Dependence on supplemental oxygen; Z79.899 Other long term (current) drug therapy; Z87.891 Personal history of nicotine dependence; R79.89 Other specified abnormal findings of blood chemistry; Z88.8 Allergy status to other drugs, medicaments and biological substances
CPT/HCPCS: 36415; 36600; 51702; 51798; 71045; 71275; 80048; 80053; 80307; 81003; 82805; 83735; 84484; 85007; 85025; 85027; 85378; 87040; 93005; 94640; 94667; 94668; 94761; 96365; 96366; 96367; 96368; 96375; 96376; 99285; G0378; J0456; J0696; J1650; J2060; J2919; Q9967

== ENCOUNTER 2024-11-25 13:49 | Outpatient (OUT) | payer MEDICARE, MEDICAID, SELFPAY ==
--- OUTSIDE RECORDS SUMMARY | 2024-11-25 14:09 | XMS_ITS | CCD ---
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 Name Role Phone Tunde Das Admitting Unavailable Tunde Das Attending Unavailable Bubba Ghotra Primary Care Unavailable BUBBA GHORTA Primary Care Physician ESA MEDINA Attending Unavailable RIC ., ESA Admitting Unavailable [...] Unavailayo HERBERT ., GILSON MCGRAW Consulting Unavailayo LARIOS ., ESA Attending Unavailable RIC ., ESA Admitting Unavailable RIC ., ESA Consulting Unavailable HEMEYER ., DR PEREIRA Primary Care Unavailable KAIA SHEIKH Consulting Unavailable MISC, DR MASON Admitting Unavailable REQUEST, DR THOMASON LISTED Primary Care UnavailABIMAEL Willis Consulting Unavailable MISStevie, DR MASON Attending Unavailable JULIO ., DR VILLAGOMEZ Attending Unavailable JULIO ., DR VILLAGOMEZ Admitting Unavailable FLOWER, DR CRUZITO Schuster Consulting Unavailable HEMEJUDITH ., DR PEREIRA Primary Care Unavailable JULIO ., DR VILLAGOMEZ Consulting Unavailable LAMAR TURNER Attending Unavailable LAMAR TURNER Admitting Unavailable LAMAR TURNER Consulting Unavailable HEMEYER ., DR PEREIRA Primary [...] ., NARENDRANATH Admitting Maureen vailable LAKSHMIPATHY ., NARENDANSONATH Consulting Maureen vailable HEMEYER ., DR PEREIRA Primary Care Unavailable REBA PURCELL Attending Unavailable BINH, REBA Admitting Unavailable HEMEYER ., DR PEREIRA Primary [...] ble MISC, DR MASON Attending Unavailable BINH, REBA Consulting Unavailable ROMERO ., DR LISA Schwartz Attending Unavailable GARRETT ., JULIA Consulting Unavailable ROMERO ., DR LISA Schwartz Admitting Unavailable HEMEYER ., DR PEREIRA Primary Care Unavailable Mahnaz Roth Unavailable Bubba Ghotra MD Primary Care Provider Bubba Ghotra MD Unavailable [phone] Elaina Payton Unavailable Cathryn STEVENSON, Kenna Unavailable Maty Win MD Unavailable Bubba Ghotra MD Primary Care Provider [phone] Bubba Ghotra MD Unavailable Bubba Ghotra MD Primary Care Provider [phone] Bubba Ghotra MD Unavailable Bubba Ghotra MD Unavailable [phone] MATY WIN Attending Unavailable MATY WIN Attending Unavailable Maty Win MD Unavailable BUBBA GHOTRA Attending Unavailable BUBBA GHOTRA Attending Unavailable BUBBA GHOTRA Attending Unavailable BUBBA GHOTRA Attending Unavailable REBA POSADA Attending Unavailable BUBBA GHOTRA Attending Unavailable BUBBA GHOTRA Attending Unavailable REBA POSADA Attending Unavailable REBA POSADA Attending Unavailable BUBBA GHOTRA Attending Unavailable LAMAR TURNER Attending Unavailable Allergies Allergy Classification Reported Allergen(s) Allergy Type Date of Onset Reaction(s) Facility (19 sources) PARoxetine; Translations: [paroxetine] Drug Allergy 4 Mild (qualifier value) [facility] (2 sources) PARoxetine Drug Allergy 3 [facility] (12 sources) venlafaxine Drug Allergy 3 Unknown [facility] (20 sources) venlafaxine Drug Allergy 3 Unknown Reaction [facility] (20 sources) PARoxetine Drug Allergy 2 Rash [...] procedure., # 14 tab(s), Refills(s) 0, Pharmacy: [facility]/pharmacy #[id number], 178, cm, 10/14/21 12:57:00 EDT, [...] bromide 0.042 mg/actuat metered dose nasal spray (17 sources) Anticholinergic Start: 06-24-2024 End: 08-24-2025 take [...] 270 tablet 1 10/20/2024 04/18/2025 Active Start: 05-26-2022 take 1 tablet by rachel th twice [...] misc (20 sources) Start: 09-15-2023 Nebul[place]Comp[place]izer[place] [facility] [place]: Chronic hypoxemic respiratory failure (CMS/HCC) , [...] Start: 08-06-2021 take 2 tablets by mo [facility] twice daily Trileptal 300 mg Tab [...] 15 MG PO EVERY 4-6 HOURS 75 November 07, 2024 Start: 10-10-2024 End: 10-10-2024 take 1 tablet by mouth every four to six hours Oxycodone 15 mg tablet Discontinued 15 MG PO EVERY 4-6 HOURS 75 15 October 10, 2024 October 10, 2024 1:48pm Start: 08-09-2024 End: 10-26-2024 take 1 tablet by mouth every six hours as needed oxyCODONE (Roxicodone) 15 MG immediate release tablet Take 15 mg by mouth every 6 (six) hours if needed (pain) 08/23/2024 Active Start: 04-01-2023 End: 08-30-2024 take 1 tablet by mouth every four to six hours Oxycodone 10 mg tablet Discontinued 10 MG PO EVERY 4-6 HOURS 150 30 February 10, 2024 March 16, 2024 4:35pm Start: 03-25-2023 take 1 tablet by rachel th every eight hours oxyCODONE HCl 10 MG 1 tablet as needed Orally TID for 10 days G89.4 palliative care prescribing 13 Mar, 2023 Active Start: 03-12-2017 End: 02-15-2020 take 1 [...] End: 01-07-2025 take 1 tablet by mouth in the morning pantoprazole (ProtoNix) 40 MG EC tablet Indications: Gastroesophageal reflux disease without esophagitis Take 1 tablet (40 mg) by mouth in the morning and 1 tablet (40 mg) before bedtime. 180 tablet 1 07/11/2024 01/07/2025 Active Start: 08-06-2021 take 1 mg by [...] Start: 08-06-2021 take 1 capsule by mo [facility] three times daily Lyrica 200 mg Cap 200 mg = 1 cap(s), Oral, TID, Refills(s) 0 Start Date: 08/06/21 Status: Ordered take 1 capsule by mo [facility] once daily at bedtime Pregabalin 200 [...] Qty: 120 Tablet; Provider: Ira Chaudhry sennosides, fdc 8.6 mg oral tablet (20 sources) Start: 04-02-2023 take 2 tablets by mouth twice daily as needed for constipation senna (Senokot) 8.6 MG tablet Indications: Constipation Take 2 tablets by mouth 2 (two) times a day as needed for constipation 04/02/2023 Active sildenafil 100 mg oral tablet (7 sources) Phosphodiesterase 5 Inhibitor Start: 09-27-2024 End: [...] minutes 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, 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 1 tablet 06/22/2024 08/30/2024 Discontinued (Therapy completed) Start: 10-14-2021 Valium 10 mg T ab 10 mg = 1 tab(s), Oral, Once, Take 1/2 hour prior to procedure, # 1 tab(s), Refills(s) 0, Pharmacy: [facility]/pharmacy #[id number], 178, cm, 10/14/21 12:57:00 EDT, [...] 09-15-2023 Chronic Other aftercare (1 source) Other prison (current) drug therapy; Translations: [OTH USP CURRENT DRUG THERAPY] Onset: 3 Episodic Other aftercare (10 sources) Seen by palliative care physician; Translations: [Encounter for palliative care] Episodic Other aftercare (1 source) Encounter for palliative care Episodic Other aftercare (6 sources) Long-term current use of drug therapy; Translations: [prison (current) use of opiate analgesic] 09-10-2023 Episodic Other aftercare (1 source) prison (current) use of opiate analgesic; Translations: [Long-term (current) use of other medications] 09-17-2023 Episodic Other connective tissue disease (4 sources) [...] abuse] Onset: 3 Resolved: 4 12-01-2022 Chronic Unclassified (1 source) G35 - Multiple [...] Mood disorders Onset: 12-23-2023 12-23-2023 Other aftercare (20 sources) Polypharmacy ; 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 ALL CBC WITH AUTO DIFFon BASOPHILS ABSOLUTE AUTO 0.1 [facility] Basophils/100 WBC (Bld) 1.9 % 0.2 - 2.0 % [facility] Eosinophils/100 WBC (Bld) 1.6 % 0.9 - 7.0 % [facility] Erythrocyte distribution width (RBC) [Ratio] 13.2 % 11.0 - 15.0 % [facility] Hematocrit (Bld) [Volume fraction] 41.1 % Low 42.0 - 54.0 % [facility] Hemoglobin (Bld) [Mass/Vol] 13.9 g/dL Low 14.0 - 18.0 g/dL [facility] IMMATURE GRANULOCYTES ABS AUTO 0.03 [facility] Immature granulocytes/100 WBC (Bld) 0.4 % 0.0 - 0.5 % [facility] Interpretation and review of laboratory results Abnormal [facility] LYMPHOCYTES ABSOLUTE AUTO 1.7 [facility] Lymphocytes/100 WBC (Bld) 22.8 % 20.5 - 60.0 % [facility] MCH (RBC) [Entitic mass] 29.8 pg 25.9 - 34.0 pg [facility] MCHC (RBC) [Mass/Vol] 33.8 g/dL 29.9 - 35.2 g/dL [facility] MCV (RBC) [Entitic vol] 88.2 fL 80.0 - 94.0 fL [facility] MONOCYTES ABSOLUTE AUTO 0.5 [facility] Monocytes/100 WBC (Bld) 6.2 % 1.7 - 12.0 % [facility] NEUTROPHILS ABSOLUTE AUTO 5.0 [facility] Neutrophils/100 WBC (Bld) 67.1 % 43.0 - 75.0 % [facility] Platelet mean volume (Bld) [Entitic vol] 9.3 fL Low 9.5 - 13.5 fL [facility] TBH EO # 0.1 [facility] PLT 382 [facility] RBC 4.66 Low [facility] WBC 7.4 [facility] AMYLASEon 11-13-2022 Amylase [Catalytic activity/Vol] 37 U/L Normal 25-115 [facility] Comment on above: Performed By: #### A MY, CMP, LIPA ####[facility] [address] [address]Dr. Cortez Younger CBC AUTO DIFFon 11-13-2022 BASO # 0.1 103/ul Normal 0.0-0.1 [facility] Comment on above: Performed By: #### C BC #### [facility] [address] [address] [address] Cortez Younger Basophils/100 WBC (Bld) 1.3 % Normal 0.2-2.0 [facility] Comment on above: Performed By: #### C BC #### [facility] [address] [address] [address] Cortez Younger EO # 0.1 103/ul Normal 0.0-0.7 [facility] Comment on above: Performed By: #### C BC #### [facility] [address] [address] [address] Cortez Younger Eosinophils/100 WBC (Bld) 0.9 % Normal 0.9-7.0 [facility] Comment on above: Performed By: #### C BC #### [facility] [address] [address] [address] Cortez Younger Erythrocyte distribution width (RBC) [Ratio] 12.5 % Normal 11.0-15.0 [facility] Comment on above: Performed By: #### C BC #### [facility] [address] [place] [address] Dr. Cortez Younger Hematocrit (Bld) [Volume fraction] 42.3 % Normal 42.0-54.0 [facility] Comment on above: Performed By: #### C BC #### [facility] [address] [place] [address] Dr. Cortez Younger Hemoglobin (Bld) [Mass/Vol] 15.1 g/dL Normal 14.0-18.0 [facility] Comment on above: Performed By: #### C BC #### [facility] [address] [place] [address] Dr. Cortez Younger IG # 0.04 10e3/ul Critically high 0.00-0.03 [facility] Comment on above: Performed By: #### C BC #### [facility] [address] [place] [address] Dr. Cortez Younger IG % 0.6 % Critically high 0.0-0.5 [facility] Comment on above: Performed By: #### C BC #### [facility] [address] [place] [address] Dr. Cortez Younger LYMPH # 1.4 103/ul Normal 1.2-3.8 [facility] Comment on above: Performed By: #### C BC #### [facility] [address] [place] [address] Dr. Cortez Younger Lymphocytes/100 WBC (Bld) 20.7 % Normal 20.5-60.0 [facility] Comment on above: Performed By: #### C BC #### [facility] [address] [place] [address] Dr. Cortez Younger MANUAL DIFF REQ NO Normal [facility] Comment on above: Performed By: #### C BC #### [facility] [address] [place] [address] Dr. Cortez Younger MCH (RBC) [Entitic mass] 31.6 pg Normal 25.9-34.0 [facility] Comment on above: Performed By: #### C BC #### [facility] [address] [place] [address] Dr. Cortez Younger MCHC (RBC) [Mass/Vol] 35.7 g/dL Critically high 29.9-35.2 [facility] Comment on above: Performed By: #### C BC #### [facility] [address] [place] [address] Dr. Cortez Younger MCV (RBC) [Entitic vol] 88.5 fL Normal 80.0-94.0 [facility] Comment on above: Performed By: #### C BC #### [facility] [address] [place] [address] Dr. Cortez Younger MONO # 0.5 103/ul Normal 0.3-0.8 [facility] Comment on above: Performed By: #### C BC #### [facility] [address] [place] [address] Dr. Cortez Younger Monocytes/100 WBC (Bld) 7.7 % Normal 1.7-12.0 [facility] Comment on above: Performed By: #### C BC #### [facility] [address] [place] [address] Dr. Cortez Younger NEUT # 4.8 103/ul Normal 1.4-6.5 [facility] Comment on above: Performed By: #### C BC #### [facility] [address] [place] [address] Dr. Cortez Younger Neutrophils/100 WBC (Bld) 68.8 % Normal 43.0-75.0 [facility] Comment on above: Performed By: #### C BC #### [facility] [address] [place] [address] Dr. Cortez Younger Platelet mean volume (Bld) [Entitic vol] 9.0 fL Critically low 9.5-13.5 [facility] Comment on above: Performed By: #### C BC #### [facility] [address] [place] [address] Dr. Cortez Younger PLT 384 103/ul Normal 150-450 [facility] Comment on above: Performed By: #### C BC #### [facility] [address] [place] [address] Dr. Cortez Younger RBC 4.78 106/ul Normal 4.70-6.10 [facility] Comment on above: Performed By: #### C BC #### [facility] [address] [address] [address] Cortez Younger WBC 7.0 103/ul Normal 4.0-11.0 [facility] Comment on above: Performed By: #### C BC #### [facility] [address] [address] [address] Cortez Younger ER URINE PROFILEon 3 Bilirubin Ql (U) Negative Normal NEGATIVE [facility] Comment on above: Performed By: #### E RUR ####[facility] [address] [place], [place] [address]Dr. Cortez Younger Clarity (U) CLEAR Normal CLEAR [facility] Comment on above: Performed By: #### E RUR ####[facility] [address] [place], [place] [address]Dr. Cortez Younger Color (U) LT. YELLOW Normal YELLOW [facility] Comment on above: Performed By: #### E RUR ####[facility] [address] [place], [place] [address]Dr. Cortez Younger ERUAHD A micrscopic examina tion will be performed if indicated. Normal [facility] Comment on above: Performed By: #### E RUR ####[facility] [address] [place], [place] [address]Dr. Cortez Younger Glucose Ql (U) Negative Normal NEGATIVE [facility] Comment on above: Performed By: #### E RUR ####[facility] [address] [place], [place] [address]Dr. Cortez Younger Hemoglobin Ql (U) Negative Normal NEGATIVE [facility] Comment on above: Performed By: #### E RUR ####[facility] [address] [place], [place] [address]Dr. Cortez Younger Ketones Ql (U) Negative Normal NEGATIVE [facility] Comment on above: Performed By: #### E RUR ####[facility] [address] [address]Dr. Cortez Younger LEUKOCYTES Negative Normal NEGATIVE [facility] Comment on above: Performed By: #### E RUR ####[facility] [address] [address]Dr. Cortez Younger Nitrite Ql (U) Negative Normal NEGATIVE [facility] Comment on above: Performed By: #### E RUR ####[facility] [address] [place] [address]Dr. Cortez Younger pH (U) 7.5 [pH] Normal 5-9 [facility] Comment on above: Performed By: #### E RUR ####[facility] [address] [address]Dr. Eleanorvalerie Aren SPEC GRAVITY <=1.005 Abnormal 1.005-<=1.025 [facility] Comment on above: Performed By: #### E RUR ####[facility] [address] [place] [place] [address]Dr. Cortez Aren UA PROTEIN Negative Normal NEGATIVE/ TRACE [facility] Comment on above: Performed By: #### E RUR ####[facility] [address] [place] [place] [address]Dr. Cortez Younger UR MICRO IND NOT INDICATED Normal [facility] Comment on above: Performed By: #### E RUR ####[facility] [address] [place] [address]Dr. Cortez Younger Urobilinogen Qn (U) 0.2 {Fidelia'U}/dL Normal 0.2 - 1.0 [facility] Comment on above: Performed By: #### E RUR ####[facility] [address] [place] [address]Dr. Cortez Aren LIPASEon 11-13-2022 Lipase [Catalytic activity/Vol] 111.0 U/L Normal 73.0-393.0 [facility] Comment on above: Performed By: #### A MY, CMP, LIPA ####[facility] [address] [place] [address]Dr. Cortez Younger PROF 14(COMP METB)on 023 Albumin [Mass/Vol] 3.9 g/dL Normal 3.4-5.0 [facility] Comment on above: Performed By: #### A MY, CMP, LIPA ####[facility] [address] [place] [address]Dr. Cortez Younger Albumin/Globulin [Mass ratio] 1.4 {ratio} Normal [facility] Comment on above: Performed By: #### A MY, CMP, LIPA ####[facility] [address] [place] [place] [address]Dr. Cortez Younger ALP [Catalytic activity/Vol] 70 U/L Normal 46-116 [facility] Comment on above: Performed By: #### A MY, CMP, LIPA ####[facility] [address] [place], [place] [address]Dr. Cortez Younger ALT [Catalytic activity/Vol] 24 U/L Normal 16-63 [facility] Comment on above: Performed By: #### A MY, CMP, LIPA ####[facility] [address] [place], [place] [address]Dr. Cortez Younger Anion gap [Moles/Vol] 9.8 mmol/L Normal [facility] Comment on above: Performed By: #### A MY, CMP, LIPA ####[facility] [address] [place] [address]Dr. Cortez Younger AST [Catalytic activity/Vol] 12 U/L Critically low 15-37 [facility] Comment on above: Performed By: #### A MY, CMP, LIPA ####[facility] [address] [place] [place] [address]Dr. Cortez Younger Bilirubin [Mass/Vol] 0.3 mg/dL Normal 0.2-1.0 [facility] Comment on above: Performed By: #### A MY, CMP, LIPA ####[facility] [address] [place], [place] [address]Dr. Cortez Younger Calcium [Mass/Vol] 9.2 mg/dL Normal 8.5-10.1 [facility] Comment on above: Performed By: #### A MY, CMP, LIPA ####[facility] [address] [place], [place] [address]Dr. Cortez Younger Chloride [Moles/Vol] 98 mmol/L Normal 98-107 [facility] Comment on above: Performed By: #### A MY, CMP, LIPA ####[facility] [address] [place], [place] [address]Dr. Cortez Younger CO2 [Moles/Vol] 28.7 mmol/L Normal 21.0-32.0 [facility] Comment on above: Performed By: #### A MY, CMP, LIPA ####[facility] [address] [place], [place] [address]Dr. Cortez Younger Creatinine [Mass/Vol] 0.88 mg/dL Normal 0.70-1.30 [facility] Comment on above: Performed By: #### A MY, CMP, LIPA ####[facility] [address] [place], [place] [address]Dr. Cortez Younger EGFR-AF LIBYAN >60 Normal >=60 [facility] Comment on above: Performed By: #### A MY, CMP, LIPA ####[facility] [address] [place], [place] [address]Dr. Cortez Younger EGFR-NON AF LIBYAN >60 Normal >=60 [facility] Comment on above: Performed By: #### A MY, CMP, LIPA ####[facility] [address] [place], [place] [address]Dr. Cortez Younger Globulin (S) [Mass/Vol] 2.7 g/dL Normal [facility] Comment on above: Performed By: #### A MY, CMP, LIPA ####[facility] [address] [place], [place] [address]Dr. Cortez Younger Glucose [Mass/Vol] 105 mg/dL Normal 74-106 [facility] Comment on above: Performed By: #### A MY, CMP, LIPA ####[facility] [address] [place] [address]Dr. Cortez Younger Potassium [Moles/Vol] 3.5 mmol/L Normal 3.5-5.1 [facility] Comment on above: Performed By: #### A MY, CMP, LIPA ####[facility] [address] [place] [place] [address]Dr. Cortez Younger Protein [Mass/Vol] 6.6 g/dL Normal 6.4-8.2 [facility] Comment on above: Performed By: #### A MY, CMP, LIPA ####[facility] [address] [address]Dr. Cortez Younger Sodium [Moles/Vol] 133 mmol/L Critically low 136-[address] [facility] Comment on above: Performed By: #### A MY, CMP, LIPA ####[facility] [address] [place] [address]Dr. Cortez Younger Urea nitrogen [Mass/Vol] 4.0 mg/dL Critically low 7.0-18.0 [facility] Comment on above: Performed By: #### A MY, CMP, LIPA ####[facility] [address] [address]Dr. Cortez Younger Urea nitrogen/Creatinin e [Mass ratio] 4.5 mg/mg Normal [facility] Comment on above: Performed By: #### A MY, CMP, LIPA ####[facility] [address] [place], [place] [address]Dr. Cortez Younger XR ABD FLAT UP_PA Farideh [...] by: CRUZITO CRENSHAW Date: 2022-11-13 13:22 Normal [facility] FREE T4on 10-31-2022 Free T4 [Mass/Vol] 1.03 ng/dL Normal 0.76-1.46 [facility] Comment on above: Performed By: #### E RUR #### [facility] [address] [place] [address] Dr. Cortez Younger LIPID PROFILEon 10-31-2022 CHOL-HDL RATIO NORM SEE BELOW Normal [facility] Comment on above: Result Comment: 3.3 - 4.4 LOW RISK 4.4 - 7.1 AVERAGE RISK 7.1 - 11.0 MODERATE RISK >11.0 HIGH RISK Performed By: #### E RUR #### [facility] [address] [place] [address] Dr. Cortez Younger Cholesterol [Mass/Vol] 165 mg/dL Normal <=200 [facility] Comment on above: Performed By: #### E RUR #### [facility] [address] [place] [address] Dr. Cortez Younger Cholesterol in HDL [Mass/Vol] 59 mg/dL Normal 40-60 [facility] Comment on above: Performed By: #### E RUR #### [facility] [address] [place] [address] Dr. Cortez Younger Cholesterol in LDL [Mass/Vol] 83.8 mg/dL Normal [facility] Comment on above: Performed By: #### E RUR #### [facility] [address] [place] [address] Dr. Cortez Younger Cholesterol.total/ Cholesterol in HDL [Mass ratio] 2.8 {ratio} Normal [facility] Comment on above: Performed By: #### E RUR #### [facility] [address] [place] [address] Dr. Cortez Younger HDL NORMAL > or = 60 mg/dl - LO W CARDIOVASCULAR RISK <40 mg/dl - HIGH CARDIOVASCULAR RISK Normal [facility] Comment on above: Performed By: #### E RUR #### [facility] [address] [place] [address] Dr. Cortez Younger LDL CALC NORMAL SEE BELOW Normal The [facility] Comment on above: Result Comment: <100 mg/dl OPTIMAL 100 - 129 mg/dl NEAR OR ABOVE OPTIMAL 130 - 159 mg/dl BORDERLINE HIGH 160 - 189 mg/dl HIGH >190 mg/dl VERY HIGH Performed By: #### E RUR #### [facility] [address] [place], [place] [address] Dr. Cortez Younger Triglyceride [Mass/Vol] 111 mg/dL Normal <=150 [facility] Comment on above: Performed By: #### E RUR #### [facility] [address] [place], [place] [address] Dr. Cortez Younger VLDL CALC 22.2 mg/dL Normal [facility] Comment on above: Performed By: #### E RUR #### [facility] [address] [place], [place] [address] Dr. Cortez Younger MRI BRAIN WO W [...] 2022-10-31 13:12 Normal [facility] PROF 14(COMP METB)on 10-31- 023 Albumin [Mass/Vol] 4.0 g/dL Normal 3.4-5.0 [facility] Comment on above: Performed By: #### C MP ####[facility] [address] [place] [address]Dr. Eleanorvalerie Aren Albumin/Globulin [Mass ratio] 1.3 {ratio} Normal [facility] Comment on above: Performed By: #### C MP ####[facility] [address] [place] [address]Dr. Eleanorvalerie Younger ALP [Catalytic activity/Vol] 66 U/L Normal 46-116 [facility] Comment on above: Performed By: #### C MP ####[facility] [address] [place], [place] [address]Dr. Cortez Younger ALT [Catalytic activity/Vol] 21 U/L Normal 16-63 [facility] Comment on above: Performed By: #### C MP ####[facility] [address] [place], [place] [address]Dr. Eleanorvalerie Younger Anion gap [Moles/Vol] 9.4 mmol/L Normal [facility] Comment on above: Performed By: #### C MP ####[facility] [address] [place], [place] [address]Dr. Cortez Younger AST [Catalytic activity/Vol] 10 U/L Critically low 15-37 [facility] Comment on above: Performed By: #### C MP ####[facility] [address] [place], [place] [address]Dr. Cortez Younger Bilirubin [Mass/Vol] 0.4 mg/dL Normal 0.2-1.0 [facility] Comment on above: Performed By: #### C MP ####[facility] [address] [place], [place] [address]Dr. Cortez Younger Calcium [Mass/Vol] 9.1 mg/dL Normal 8.5-10.1 [facility] Comment on above: Performed By: #### C MP ####[facility] [address] [place], [place] [address]Dr. Cortez Younger Chloride [Moles/Vol] 98 mmol/L Normal 98-107 [facility] Comment on above: Performed By: #### C MP ####[facility] [address] [place] [address]Dr. Cortez Younger CO2 [Moles/Vol] 29.8 mmol/L Normal 21.0-32.0 The [facility] Comment on above: Performed By: #### C MP ####[facility] [address] [place] [address]Dr. Cortez Younger Creatinine [Mass/Vol] 0.89 mg/dL Normal 0.70-1.30 [facility] Comment on above: Performed By: #### C MP ####[facility] [address] [place] [address]Dr. Cortez Aren EGFR-AF LIBYAN >60 Normal >=60 [facility] Comment on above: Performed By: #### C MP ####[facility] [address] [place] [address]Dr. Cortez Aren EGFR-NON AF LIBYAN >60 Normal >=60 [facility] Comment on above: Performed By: #### C MP ####[facility] [address] [place] [address]Dr. Cortez Aren Globulin (S) [Mass/Vol] 3.1 g/dL Normal [facility] Comment on above: Performed By: #### C MP ####[facility] [address] [place] [address]Dr. Cortez Aren Glucose [Mass/Vol] 109 mg/dL Critically high 74-106 [facility] Comment on above: Performed By: #### C MP ####[facility] [address] [place] [address]Dr. Eleanorvalerie Aren Potassium [Moles/Vol] 4.2 mmol/L Normal 3.5-5.1 [facility] Comment on above: Performed By: #### C MP ####[facility] [address] [place] [address]Dr. Cortez Younger Protein [Mass/Vol] 7.1 g/dL Normal 6.4-8.2 [facility] Comment on above: Performed By: #### C MP ####[facility] [address] [place] [address]Dr. Cortez Younger Sodium [Moles/Vol] 133 mmol/L Critically low 136-[address] [facility] Comment on above: Performed By: #### C MP ####[facility] [address] [place] [address]Dr. Cortez Younger Urea nitrogen [Mass/Vol] 7.0 mg/dL Normal 7.0-18.0 [facility] Comment on above: Performed By: #### C MP ####[facility] [address] [place] [address]Dr. Cortez Younger Urea nitrogen/Creatinin e [Mass ratio] 7.9 mg/mg Normal [facility] Comment on above: Performed By: #### C MP ####[facility] [address] [place], [place] [address]Dr. Cortez Younger TSHon 10-31-2022 TSH 1.574 uIU/mL Normal 0.358-3.740 [facility] Comment on above: Performed By: #### T SH #### [facility] [address] [place] [address] Dr. Cortez Younger COMPLIANCE DRUG SCREENon PDF . [facility] Comment on above: Performed By: #### E RUR #### [facility] [address] [place] [address] Dr. Cortez Younger Summary FINAL Normal [facility] Comment on above: Result Comment: = [...] test is not intended to distinguish between pluki-3-qxsewayretrtebzvrnid, the predominant form of THC in most herbal or marijuana-based products, and vhjif-2-ylfctxrxemmycrggvape. Norhydrocodone 1620 ng/mg creat Norhydrocodone is an [...] = Performed By: #### E RUR #### [facility] [address] [place] [address] Dr. Cortez Younger HYDROCODONE AND METABOLITE, URINEon 10-24-2022 Hydrocodone 55 ng/mL Normal [facility] Comment on above: Performed By: #### E RUR #### [facility] [address] [place] [address] Dr. Cortez Younger Hydromorphone Negative Normal [facility] Comment on above: Result Comment: This test was developed and its performance characteristics determined by [facility]. It has not been cleared or approved by the Food and Drug Administration. Performed By: #### E RUR #### [facility] [address] [place] [address] Dr. Cortez Younger OSMOLALITYon 10-20-2022 Osmolality QNSREP Normal [facility] Comment on above: Result Comment: Spec imen quantity insufficient for verification by repeat analysis. contacted Lynda at your facility on 10-20-2022 Performed By: #### C BC #### [facility] [address] [place] [address] [address] Cortez Younger OSMOLALITY URINEon Osmolality, Urine 119 mOsmol/kg Normal [facility] Comment on above: Result Comment: 24 h r : 300 - 900 Random: 50 - 1400 After 12hr fluid restriction: >850 Performed By: #### O SMOU ####[facility] [address] [place] [address]Dr. Cortez Younger CBC AUTO DIFFon 10-16-2022 BASO # 0.0 103/ul Normal 0.0-0.1 [facility] Comment on above: Performed By: #### C BC ####[facility] [address] [place] [address]Dr. Cortez Younger Basophils/100 WBC (Bld) 0.3 % Normal 0.2-2.0 [facility] Comment on above: Performed By: #### C BC ####[facility] [address] [place], [place] [address]Dr. Cortez Younger EO # 0.0 103/ul Normal 0.0-0.7 [facility] Comment on above: Performed By: #### C BC ####[facility] [address] [place] [address]Dr. Cortez Younger Eosinophils/100 WBC (Bld) 0.2 % Critically low 0.9-7.0 [facility] Comment on above: Performed By: #### C BC ####[facility] [address] [place], [place] [address]Dr. Cortez Younger Erythrocyte distribution width (RBC) [Ratio] 12.1 % Normal 11.0-15.0 [facility] Comment on above: Performed By: #### C BC ####[facility] [address] [place], [place] [address]Dr. Cortze Younger Hematocrit (Bld) [Volume fraction] 45.9 % Normal 42.0-54.0 [facility] Comment on above: Performed By: #### C BC ####[facility] [address] [place], [place] [address]Dr. Cortez Younger Hemoglobin (Bld) [Mass/Vol] 16.7 g/dL Normal 14.0-18.0 [facility] Comment on above: Performed By: #### C BC ####[facility] [address] [place], [place] [address]Dr. Cortez Younger IG # 0.06 10e3/ul Critically high 0.00-0.03 [facility] Comment on above: Performed By: #### C BC ####[facility] [address] [place], [place] [address]Dr. Cortez Younger IG % 0.5 % Normal 0.0-0.5 [facility] Comment on above: Performed By: #### C BC ####[facility] [address] [place] [address]Dr. Cortez Younger LYMPH # 1.5 103/ul Normal 1.2-3.8 [facility] Comment on above: Performed By: #### C BC ####[facility] [address] [place] [address]Dr. Cortez Younger Lymphocytes/100 WBC (Bld) 13.5 % Critically low 20.5-60.0 [facility] Comment on above: Performed By: #### C BC ####[facility] [address] [place] [address]Dr. Cortez Younger MANUAL DIFF REQ NO Normal [facility] Comment on above: Performed By: #### C BC ####[facility] [address] [place] [address]Dr. Cortez Younger MCH (RBC) [Entitic mass] 31.2 pg Normal 25.9-34.0 [facility] Comment on above: Performed By: #### C BC ####[facility] [address] [place] [address]Dr. Cortez Younger MCHC (RBC) [Mass/Vol] 36.4 g/dL Critically high 29.9-35.2 [facility] Comment on above: Performed By: #### C BC ####[facility] [address] [place] [address]DrFish Younger MCV (RBC) [Entitic vol] 85.6 fL Normal 80.0-94.0 [facility] Comment on above: Performed By: #### C BC ####[facility] [address] [place] [address]DrFish Younger MONO # 0.6 103/ul Normal 0.3-0.8 [facility] Comment on above: Performed By: #### C BC ####[facility] [address] [place] [address]DrFish Younger Monocytes/100 WBC (Bld) 5.4 % Normal 1.7-12.0 [facility] Comment on above: Performed By: #### C BC ####[facility] [address] [place] [address]Dr. Cortez Younger NEUT # 8.9 103/ul Critically high 1.4-6.5 [facility] Comment on above: Performed By: #### C BC ####[facility] [address] [place] [address]Dr. Cortez Younger Neutrophils/100 WBC (Bld) 80.1 % Critically high 43.0-75.0 [facility] Comment on above: Performed By: #### C BC ####[facility] [address] [place] [address]Dr. Cortez Younger Platelet mean volume (Bld) [Entitic vol] 9.7 fL Normal 9.5-13.5 [facility] Comment on above: Performed By: #### C BC ####[facility] [address] [place] [address]Dr. Cortez Younger PLT 364 103/ul Normal 150-450 [facility] Comment on above: Performed By: #### C BC ####[facility] [address] [place] [address]Dr. Cortez Younger RBC 5.36 106/ul Normal 4.70-6.10 [facility] Comment on above: Performed By: #### C BC ####[facility] Ekz[address] [place] [address]Dr. Cortez Younger WBC 11.1 103/ul Critically high 4.0-11.0 [facility] Comment on above: Performed By: #### C BC ####[facility] [address]flekt[address] [place] [address]Dr. Cortez Younger Covid-19 PCR ([facility])on SARS-CoV-2 (COVID-19) RNA AXEL+probe Ql (Unsp spec) Not detected Normal NOT DETECTED [facility] Comment on above: Result Comment: When [...] for this test is supported by the [place] of Health and Human Service's declaration that [...] By: #### C VDTB ####[facility] [address] [place] [address]Dr. Cortez Younger DRUG SCREEN RAPID (URINE)on 10-16-2022 AMP Negative Normal NEGATIVE [facility] Comment on above: Performed By: #### C BC #### [facility] [address] [place] [address] Dr. Cortez Younger BAR Positive Abnormal NEGATIVE [facility] Comment on above: Performed By: #### C BC #### [facility] [address] [place] [address] Dr. Cortez Younger BUP Negative Normal NEGATIVE [facility] Comment on above: Performed By: #### C BC #### [facility] [address] [place] [address] Dr. Cortez Younger BZO Positive Abnormal NEGATIVE [facility] Comment on above: Performed By: #### C BC #### [facility] [address] [place] [address] Dr. Cortez Younger OK Negative Normal NEGATIVE [facility] Comment on above: Performed By: #### C BC #### [facility] [address] [place] [address] Dr. Cortez Younger CUT-OFFS SEE BELOW Normal [facility] Comment on above: Result Comment: [...] #### C BC #### [facility] [address] [place] [address] Dr. Cortez Younger DRUG CUT HEADER DRUG CLASS TEST SYST EM CUT-OFF CONCENTRATIONS ARE FOLLOWS: Normal [facility] Comment on above: Performed By: #### C BC #### [facility] [address] [place] [address] Dr. Cortez Younger mAMP Negative Normal NEGATIVE [facility] Comment on above: Performed By: #### C BC #### [facility] [address] [place] [address] Dr. Cortez Younger MTD Negative Normal NEGATIVE [facility] Comment on above: Performed By: #### C BC #### [facility] [address] [place] [address] Dr. Cortez Younger OPI Positive Abnormal NEGATIVE [facility] Comment on above: Performed By: #### C BC #### [facility] [address] [place] [address] Dr. Cortez Younger OXY Negative Normal NEGATIVE [facility] Comment on above: Performed By: #### C BC #### [facility] [address] [place] [address] Dr. Cortez Younger PCP Negative Normal NEGATIVE [facility] Comment on above: Performed By: #### C BC #### [facility] [address] [place] [address] Dr. Cortez Younger PPX Negative Normal NEGATIVE [facility] Comment on above: Performed By: #### C BC #### [facility] [address] [place] [address] Dr. Cortez Younger TCA Negative Normal NEGATIVE [facility] Comment on above: Performed By: #### C BC #### [facility] [address] [place] [address] Dr. Cortez Younger THC Positive Abnormal NEGATIVE [facility] Comment on above: Performed By: #### C BC #### [facility] [address] [place] [address] Dr. Cortez Younger ER URINE PROFILEon 3 Bilirubin Ql (U) Negative Normal NE[facility] Comment on above: Performed By: #### C BC #### [facility] [address] [place] [address] Dr. Cortez Younger Clarity (U) CLEAR Normal CLEAR [facility] Comment on above: Performed By: #### C BC #### [facility] [address] [place] [address] Dr. Cortez Younger Color (U) LT. YELLOW Normal YELLOW [facility] Comment on above: Performed By: #### C BC #### [facility] [address] [place] [address] Dr. Cortez Younger ERUAHD A micrscopic examina tion will be performed if indicated. Normal [facility] Comment on above: Performed By: #### C BC #### [facility] [address] [place] [address] Dr. Cortez Younger Glucose Ql (U) Negative Normal NEGATIVE [facility] Comment on above: Performed By: #### C BC #### [facility] [address] [place] [address] Dr. Cortez Younger Hemoglobin Ql (U) Negative Normal NEGATIVE [facility] Comment on above: Performed By: #### C BC #### [facility] [address] [place] [address] Dr. Cortez Younger Ketones Ql (U) Negative Normal NEGATIVE [facility] Comment on above: Performed By: #### C BC #### [facility] [address] [place] [address] Dr. Cortez Younger LEUKOCYTES Negative Normal NEGATIVE [facility] Comment on above: Performed By: #### C BC #### [facility] [address] [place] [address] Dr. Cortez Younger Nitrite Ql (U) Negative Normal NEGATIVE [facility] Comment on above: Performed By: #### C BC #### [facility] [address] [place] [address] Dr. Cortez Younger pH (U) 7.5 [pH] Normal 5-9 [facility] Comment on above: Performed By: #### C BC #### [facility] [address] [place] [address] Dr. Cortez Younger SPEC GRAVITY <=1.005 Abnormal 1.005-<=1.025 [facility] Comment on above: Performed By: #### C BC #### [facility] [address] [place] [address] Dr. Cortez Younger UA PROTEIN Negative Normal NEGATIVE/ TRACE [facility] Comment on above: Performed By: #### C BC #### [facility] [address] [place] [address] Dr. Cortez Younger UR MICRO IND NOT INDICATED Normal [facility] Comment on above: Performed By: #### C BC #### [facility] [address] [place] [address] Dr. Cortez Younger Urobilinogen Qn (U) 0.2 {Fidelia'U}/dL Normal 0.2 - 1.0 [facility] Comment on above: Performed By: #### C BC #### [facility] [address] [place] [address] Dr. Cortez Younger NAon 10-16-2022 Sodium [Moles/Vol] 125 mmol/L Critically low 136-[address] [facility] Comment on above: Performed By: #### E RUR #### [facility] [address] [place] [address] Dr. Cortez Younger POTASSIUM URINEon 10-16-2022 UR POTASSIUM 11.8 mmol/L Normal [facility] Comment on above: Performed By: #### K U ####[facility] [address] [place] [address]Dr. Cortez Younger PROF 14(COMP METB)on 023 Albumin [Mass/Vol] 4.2 g/dL Normal 3.4-5.0 [facility] Comment on above: Performed By: #### E RUR #### [facility] [address] [place] [address] Dr. Cortez Younger Albumin/Globulin [Mass ratio] 1.3 {ratio} Normal [facility] Comment on above: Performed By: #### E RUR #### [facility] [address] [place] [address] Dr. Cortez Younger ALP [Catalytic activity/Vol] 75 U/L Normal 46-116 [facility] Comment on above: Performed By: #### E RUR #### [facility] [address] [place] [address] Dr. Cortez Younger ALT [Catalytic activity/Vol] 23 U/L Normal 16-63 [facility] Comment on above: Performed By: #### E RUR #### [facility] [address] [place] [address] Dr. Cortez Younger Anion gap [Moles/Vol] 9.7 mmol/L Normal [facility] Comment on above: Performed By: #### E RUR #### [facility] [address] [place] [address] Dr. Cortez Younger AST [Catalytic activity/Vol] 16 U/L Normal 15-37 [facility] Comment on above: Performed By: #### E RUR #### [facility] [address] [place] [address] Dr. Cortez Younger Bilirubin [Mass/Vol] 0.4 mg/dL Normal 0.2-1.0 [facility] Comment on above: Performed By: #### E RUR #### [facility] [address] [place] [address] Dr. Cortez Younger Calcium [Mass/Vol] 9.1 mg/dL Normal 8.5-10.1 [facility] Comment on above: Performed By: #### E RUR #### [facility] [address] [place] [address] Dr. Cortez Younger Chloride [Moles/Vol] 88 mmol/L Critically low 98-107 [facility] Comment on above: Performed By: #### E RUR #### [facility] [address] [place] [address] [address] Cortez Younger CO2 [Moles/Vol] 26.5 mmol/L Normal 21.0-32.0 [facility] Comment on above: Performed By: #### E RUR #### [facility] [address] [place] [address] [address] Cortez Younger Creatinine [Mass/Vol] 0.73 mg/dL Normal 0.70-1.30 [facility] Comment on above: Performed By: #### E RUR #### [facility] [address] [place] [address] [address] Cortez Younger EGFR-AF LIBYAN >60 Normal >=60 [facility] Comment on above: Performed By: #### E RUR #### [facility] [address] [place] [address] [address] Cortez Younger EGFR-NON AF LIBYAN >60 Normal >=60 [facility] Comment on above: Performed By: #### E RUR #### [facility] [address] [place] [address] [address] Cortez Younger Globulin (S) [Mass/Vol] 3.2 g/dL Normal [facility] Comment on above: Performed By: #### E RUR #### [facility] [address] [place] [address] [address] Cortez Younger Glucose [Mass/Vol] 109 mg/dL Critically high 74-106 [facility] Comment on above: Performed By: #### E RUR #### [facility] [address] [place] [address] [address] Cortez Younger Potassium [Moles/Vol] 4.2 mmol/L Normal 3.5-5.1 [facility] Comment on above: Performed By: #### E RUR #### [facility] [address] [place] [address] [address] Cortez Younger Protein [Mass/Vol] 7.4 g/dL Normal 6.4-8.2 [facility] Comment on above: Performed By: #### E RUR #### [facility] [address] [place] [address] [address] Cortez Younger Sodium [Moles/Vol] 120 mmol/L Critically low 136-[address] [facility] Comment on above: Performed By: #### E RUR #### [facility] [address] [place] [address] [address] Cortez Younger Urea nitrogen [Mass/Vol] 7.0 mg/dL Normal 7.0-18.0 [facility] Comment on above: Performed By: #### E RUR #### [facility] [address] [place] [address] [address] Cortez Younger Urea nitrogen/Creatinin e [Mass ratio] 9.6 mg/mg Normal [facility] Comment on above: Performed By: #### E RUR #### [facility] [address] [place] [address] Dr[address] Cortez Younger SODIUM RANDOM URINEon 2022 Sodium (U) [Moles/Vol] 26 mmol/L Critically low 30-90 [facility] Comment on above: Performed By: #### N AU ####[facility] [address] [place] [address]Dr. Cortez Younger ACETONE SERUMon 10-07-2022 ACETONE Negative Normal NEGATIVE [facility] Comment on above: Performed By: #### E RUR #### [facility] [address] [place] [address] [address] Cortez Younger CBC AUTO DIFFon 10-07-2022 BASO # 0.1 103/ul Normal 0.0-0.1 [facility] Comment on above: Performed By: #### C BC ####[facility] [address] [place] [address]Dr. Cortez Younger Basophils/100 WBC (Bld) 0.8 % Normal 0.2-2.0 [facility] Comment on above: Performed By: #### C BC ####[facility] [address] [place] [id number]. Cortez Younger EO # 0.0 103/ul Normal 0.0-0.7 [facility] Comment on above: Performed By: #### C BC ####[facility] [address] [place] [address]Dr. Cortez Younger Eosinophils/100 WBC (Bld) 0.2 % Critically low 0.9-7.0 [facility] Comment on above: Performed By: #### C BC ####[facility] [address] [place], [place] [address]Dr. Cortez Younger Erythrocyte distribution width (RBC) [Ratio] 12.1 % Normal 11.0-15.0 [facility] Comment on above: Performed By: #### C BC ####[facility] [address] [place], [place] [address]Dr. Cortez Younger Hematocrit (Bld) [Volume fraction] 42.9 % Normal 42.0-54.0 [facility] Comment on above: Performed By: #### C BC ####[facility] [address] [place], [place] [address]Dr. Cortez Younger Hemoglobin (Bld) [Mass/Vol] 15.4 g/dL Normal 14.0-18.0 [facility] Comment on above: Performed By: #### C BC ####[facility] [address]qce[address] [place], [place] [address]Dr. Cortez Younger IG # 0.04 10e3/ul Critically high 0.00-0.03 [facility] Comment on above: Performed By: #### C BC ####[facility] [address] [place], [place] [address]Dr. Cortez Younger IG % 0.4 % Normal 0.0-0.5 [facility] Comment on above: Performed By: #### C BC ####[facility] [address] [place], [place] [address]DrFish Cortez Younger LYMPH # 1.3 103/ul Normal 1.2-3.8 [facility] Comment on above: Performed By: #### C BC ####[facility] Biqzzsv[address] [place], [place] [address]Dr. Cortez Aren Lymphocytes/100 WBC (Bld) 13.7 % Critically low 20.5-60.0 [facility] Comment on above: Performed By: #### C BC ####[facility] [address] [place] [address]Dr. Cortez Younger MANUAL DIFF REQ NO Normal [facility] Comment on above: Performed By: #### C BC ####[facility] [address] [place] [id number]. Cortez Younger MCH (RBC) [Entitic mass] 31.4 pg Normal 25.9-34.0 [facility] Comment on above: Performed By: #### C BC ####[facility] [address] [place] [address]Dr. Cortez Younger MCHC (RBC) [Mass/Vol] 35.9 g/dL Critically high 29.9-35.2 [facility] Comment on above: Performed By: #### C BC ####[facility] [address] [place], [place] [address]Dr. Cortez Younger MCV (RBC) [Entitic vol] 87.4 fL Normal 80.0-94.0 [facility] Comment on above: Performed By: #### C BC ####[facility] [address] [place], [place] [address]DrFish Younger MONO # 0.4 103/ul Normal 0.3-0.8 [facility] Comment on above: Performed By: #### C BC ####[facility] [address] [place] [address]DrFish Younger Monocytes/100 WBC (Bld) 3.6 % Normal 1.7-12.0 [facility] Comment on above: Performed By: #### C BC ####[facility] [address] [place], [place] [address]DrFish Younger NEUT # 7.9 103/ul Critically high 1.4-6.5 [facility] Comment on above: Performed By: #### C BC ####[facility] [address]cl[address] [place] [id number] Younger Neutrophils/100 WBC (Bld) 81.3 % Critically high 43.0-75.0 [facility] Comment on above: Performed By: #### C BC ####[facility] [address] [place] [address]Dr. Cortez Younger Platelet mean volume (Bld) [Entitic vol] 8.8 fL Critically low 9.5-13.5 [facility] Comment on above: Performed By: #### C BC ####[facility] [address] [place] [address]Dr. Cortez Younger PLT 371 103/ul Normal 150-450 [facility] Comment on above: Performed By: #### C BC ####[facility] [address] [place] [address]Dr. Cortez Younger RBC 4.91 106/ul Normal 4.70-6.10 [facility] Comment on above: Performed By: #### C BC ####[facility] [address] [place] [address]Dr. Cortez Younger WBC 9.8 103/ul Normal 4.0-11.0 [facility] Comment on above: Performed By: #### C BC ####[facility] [address] [place] [address]DrFish Younger CRPon 10-07-2022 CRP [Mass/Vol] mg/L Normal <=1.0 [facility] Comment on above: Performed By: #### L IPA, TSH, CRP, CMP ####[facility] [address] [place] [address]DrFish Younger ER URINE PROFILEon 3 Bilirubin Ql (U) Negative Normal NEGATIVE [facility] Comment on above: Performed By: #### E RUR #### [facility] [address] [place] [address] [address] Cortez Younger Clarity (U) CLEAR Normal CLEAR [facility] Comment on above: Performed By: #### E RUR #### [facility] [address] [place] [address] Dr. Cortez Younger Color (U) LT. YELLOW Normal YELLOW [facility] Comment on above: Performed By: #### E RUR #### [facility] [address] [place] [address] Dr. Cortez PRESTON A micrscopic examina tion will be performed if indicated. Normal [facility] Comment on above: Performed By: #### E RUR #### [facility] [address] [place] [address] Dr. Cortez Younger Glucose Ql (U) Negative Normal NEGATIVE [facility] Comment on above: Performed By: #### E RUR #### [facility] [address] [place] [address] Dr. Cortez Younger Hemoglobin Ql (U) Negative Normal NEGATIVE [facility] Comment on above: Performed By: #### E RUR #### [facility] [address] [place] [address] Dr. Cortez Younger Ketones Ql (U) Negative Normal NEGATIVE [facility] Comment on above: Performed By: #### E RUR #### [facility] [address] [place] [address] Dr. Cortez Younger LEUKOCYTES Negative Normal NEGATIVE [facility] Comment on above: Performed By: #### E RUR #### [facility] [address] [place] [address] Dr. Cortez Younger Nitrite Ql (U) Negative Normal NEGATIVE [facility] Comment on above: Performed By: #### E RUR #### [facility] [address] [place] [address] Dr. Cortez Younger pH (U) 7.5 [pH] Normal 5-9 [facility] Comment on above: Performed By: #### E RUR #### [facility] [address] [place] [address] Dr. Cortez Younger SPEC GRAVITY <=1.005 Abnormal 1.005-<=1.025 [facility] Comment on above: Performed By: #### E RUR #### [facility] [address] [place] [address] Dr. Cortez Younger UA PROTEIN Negative Normal NEGATIVE/ TRACE [facility] Comment on above: Performed By: #### E RUR #### [facility] [address] [place] [address] [address] Cortez Younger UR MICRO IND NOT INDICATED Normal [facility] Comment on above: Performed By: #### E RUR #### [facility] [address] [place] [address] Dr. Cortez Younger Urobilinogen Qn (U) 0.2 {Fidelia'U}/dL Normal 0.2 - 1.0 [facility] Comment on above: Performed By: #### E RUR #### [facility] [address] [place] [address] Dr. Cortez Younger LACTATE/LACTIC ACIDon 2022 Lactate [Moles/Vol] 1.0 mmol/L Normal 0.4-2.0 [facility] Comment on above: Performed By: #### E RUR #### [facility] [address] [place] [address] Dr. Cortez Younger LIPASEon 10-07-2022 Lipase [Catalytic activity/Vol] 84.0 U/L Normal 73.0-393.0 [facility] Comment on above: Performed By: #### L IPA, TSH, CRP, CMP ####[facility] [address] [place] [address]DrFish Younger PROF 14(COMP METB)on 023 Albumin [Mass/Vol] 3.9 g/dL Normal 3.4-5.0 [facility] Comment on above: Performed By: #### L IPA, TSH, CRP, CMP ####[facility] [address] [place] [address]DrFish Younger Albumin/Globulin [Mass ratio] 1.7 {ratio} Normal [facility] Comment on above: Performed By: #### L IPA, TSH, CRP, CMP ####[facility] [address] [place] [address]Dr. Cortez Younger ALP [Catalytic activity/Vol] 78 U/L Normal 46-116 [facility] Comment on above: Performed By: #### L IPA, TSH, CRP, CMP ####[facility] [address] [place] [address]Dr. Cortez Younger ALT [Catalytic activity/Vol] 28 U/L Normal 16-63 [facility] Comment on above: Performed By: #### L IPA, TSH, CRP, CMP ####[facility] [address] [place] [address]Dr. Cortez Younger Anion gap [Moles/Vol] 12.1 mmol/L Normal [facility] Comment on above: Performed By: #### L IPA, TSH, CRP, CMP ####[facility] [address] [place] [address]Dr. Cortez Younger AST [Catalytic activity/Vol] 15 U/L Normal 15-37 [facility] Comment on above: Performed By: #### L IPA, TSH, CRP, CMP ####[facility] [address] [place] [address]Dr. Cortez Younger Bilirubin [Mass/Vol] 0.5 mg/dL Normal 0.2-1.0 [facility] Comment on above: Performed By: #### L IPA, TSH, CRP, CMP ####[facility] [address] [place] [address]Dr. Cortez Younger Calcium [Mass/Vol] 8.6 mg/dL Normal 8.5-10.1 [facility] Comment on above: Performed By: #### L IPA, TSH, CRP, CMP ####[facility] [address] [place] [address]Dr. Cortez Younger Chloride [Moles/Vol] 100 mmol/L Normal 98-107 [facility] Comment on above: Performed By: #### L IPA, TSH, CRP, CMP ####[facility] [address]ool[address] [place] [address]Dr. Cortez Younger CO2 [Moles/Vol] 28.8 mmol/L Normal 21.0-32.0 [facility] Comment on above: Performed By: #### L IPA, TSH, CRP, CMP ####[facility] [address] [place] [address]Dr. Cortez Younger Creatinine [Mass/Vol] 0.70 mg/dL Normal 0.70-1.30 [facility] Comment on above: Performed By: #### L IPA, TSH, CRP, CMP ####[facility] [address] [place] [address]Dr. Cortez Younger EGFR-AF LIBYAN >60 Normal >=60 [facility] Comment on above: Performed By: #### L IPA, TSH, CRP, CMP ####[facility] [address] [place] [address]Dr. Cortez Younger EGFR-NON AF LIBYAN >60 Normal >=60 [facility] Comment on above: Performed By: #### L IPA, TSH, CRP, CMP ####[facility] [address]evftx[address] [place] [address]Dr. Cortez Younger Globulin (S) [Mass/Vol] 2.3 g/dL Normal [facility] Comment on above: Performed By: #### L IPA, TSH, CRP, CMP ####[facility] [address] [place], [place] [address]Dr. Cortez Younger Glucose [Mass/Vol] 111 mg/dL Critically high 74-106 [facility] Comment on above: Performed By: #### L IPA, TSH, CRP, CMP ####[facility] [address]if[address]pxo[address] [place] [address]Dr. Cortez Younger Potassium [Moles/Vol] 3.9 mmol/L Normal 3.5-5.1 [facility] Comment on above: Performed By: #### L IPA, TSH, CRP, CMP ####[facility] [address] [place] [address]Dr. Cortez Younger Protein [Mass/Vol] 6.2 g/dL Critically low 6.4-8.2 [facility] Comment on above: Performed By: #### L IPA, TSH, CRP, CMP ####[facility] [address] [place] [address]Dr. Cortez Younger Sodium [Moles/Vol] 137 mmol/L Normal 136-145 [facility] Comment on above: Performed By: #### L IPA, TSH, CRP, CMP ####[facility] [address] [place], [place] [address]Kz. Cortez Younger Urea nitrogen [Mass/Vol] 6.0 mg/dL Critically low 7.0-18.0 [facility] Comment on above: Performed By: #### L IPA, TSH, CRP, CMP ####[facility] [address] [place], [place] [address]Kf. Cortez Younger Urea nitrogen/Creatinin e [Mass ratio] 8.6 mg/mg Normal [facility] Comment on above: Performed By: #### L IPA, TSH, CRP, CMP ####[facility] [address] [place] [id number]. Cortez Younger SED RATE [facility] 2022 SED RATE <1 Normal <=20 [facility] Comment on above: Performed By: #### C BC #### [facility] [address] [place], [place] [address] Dr. Cortez Younger [facility] TSH 1.031 uIU/mL Normal 0.358-3.740 [facility] Comment on above: Performed By: #### L IPA, TSH, CRP, CMP ####[facility] [address] [place] [id number]. Cortez Younger Covid-19 PCR (CVDTB)on 05-13 SARS-CoV-2 (COVID-19) RNA AXEL+probe Ql (Unsp spec) Not detected Normal NOT DETECTED [facility] Comment on above: Result Comment: When [...] for this test is supported by the [employer] of Health and Human Service's declaration that [...] #### C BC #### [facility] [address] [place] [address] Dr. Cortez Younger INFLUENZA A AND B [facility] 05-28 [facility] SEE BELOW Normal [facility] Comment on above: Result Comment: Nega tive for Flu A protein angiten. Infection due to Flu A cannot be ruled out. Flu A angiten in the sample may be below the detection limit of the test. Performed By: #### E RUR #### [facility] [address] [place] [address] Dr. Cortez Younger INFLUBNEGH SEE BELOW Normal [facility] Comment on above: Result Comment: Nega tive for Flu B protein antigen. Infection due to Flu B cannot be ruled out. Flu B antigen in the sample may be below the detection limit of the test. Performed By: #### E RUR #### [facility] [address] [place] [address] Dr. Cortez Younger INFLUENZA A AG Negative Normal NEGATIVE SEE COMMENT [facility] Comment on above: Performed By: #### E RUR #### [facility] [address] [place] [address] Dr. Cortez Younger INFLUENZA B AG Negative Normal NEGATIVE SEE COMMENT [facility] Comment on above: Performed By: #### E RUR #### [facility] [address] [place] [address] Dr. Cortez Younger INTERNAL CONTROLS Within Normal Limits Normal Wi thin Normal Limits [facility] Comment on above: Performed By: #### E RUR #### [facility] [address] [place] [address] Dr. Cortez Younger XR CHEST 1 Von [...] 2022-05-28 13:36 Normal [facility] PROF 14(COMP METB)on 022 Albumin [Mass/Vol] 3.9 g/dL Normal 3.4-5.0 [facility] Comment on above: Performed By: #### C MP #### [facility] [address] [place] [address] [address] Cortez Younger Albumin/Globulin [Mass ratio] 1.4 {ratio} Normal [facility] Comment on above: Performed By: #### C MP #### [facility] [address] [place] [address] Dr. Cortez Younger ALP [Catalytic activity/Vol] 81 U/L Normal 46-116 [facility] Comment on above: Performed By: #### C MP #### [facility] [address] [place] [address] [address] Cortez Younger ALT [Catalytic activity/Vol] 19 U/L Normal 16-63 [facility] Comment on above: Performed By: #### C MP #### [facility] [address] [place] [address] Dr. Cortez Younger Anion gap [Moles/Vol] 12.3 mmol/L Normal [facility] Comment on above: Performed By: #### C MP #### [facility] [address] [place] [address] Dr. Cortez Younger AST [Catalytic activity/Vol] 15 U/L Normal 15-37 [facility] Comment on above: Performed By: #### C MP #### [facility] [address] [place] [address] [address] Cortez Younger Bilirubin [Mass/Vol] 0.3 mg/dL Normal 0.2-1.0 [facility] Comment on above: Performed By: #### C MP #### [facility] [address] [place] [address] Dr. Cortez Younger Calcium [Mass/Vol] 8.6 mg/dL Normal 8.5-10.1 [facility] Comment on above: Performed By: #### C MP #### [facility] [address] [place] [address] [address] Cortez Younger Chloride [Moles/Vol] 101 mmol/L Normal 98-107 [facility] Comment on above: Performed By: #### C MP #### [facility] [address] [place] [address] [address] Cortez Younger CO2 [Moles/Vol] 30.6 mmol/L Normal 21.0-32.0 [facility] Comment on above: Performed By: #### C MP #### [facility] [address] [place] [address] [address] Cortez Younger Creatinine [Mass/Vol] 0.75 mg/dL Normal 0.70-1.30 [facility] Comment on above: Performed By: #### C MP #### [facility] [address] [place] [address] Dr. Cortez Younger EGFR-AF LIBYAN >60 Normal >=60 [facility] Comment on above: Performed By: #### C MP #### [facility] [address] [place] [address] [address] Cortez Younger EGFR-NON AF LIBYAN >60 Normal >=60 [facility] Comment on above: Performed By: #### C MP #### [facility] [address] [place] [address] Dr. Cortez Younger Globulin (S) [Mass/Vol] 2.8 g/dL Normal [facility] Comment on above: Performed By: #### C MP #### [facility] [address] [place] [address] [address] Cortez Younger Glucose [Mass/Vol] 98 mg/dL Normal 74-106 [facility] Comment on above: Performed By: #### C MP #### [facility] [address] [place] [address] Dr. Cortez Younger Potassium [Moles/Vol] 3.9 mmol/L Normal 3.5-5.1 [facility] Comment on above: Performed By: #### C MP #### [facility] [address] [place] [address] [address] Cortez Younger Protein [Mass/Vol] 6.7 g/dL Normal 6.4-8.2 [facility] Comment on above: Performed By: #### C MP #### [facility] [address] [place] [address] Dr. Cortez Younger Sodium [Moles/Vol] 140 mmol/L Normal 136-145 [facility] Comment on above: Performed By: #### C MP #### [facility] [address] [place] [address] Dr. Cortez Younger Urea nitrogen [Mass/Vol] 5.0 mg/dL Critically low 7.0-18.0 [facility] Comment on above: Performed By: #### C MP #### [facility] [address] [place] [address] Dr. Cortez Younger Urea nitrogen/Creatinin e [Mass ratio] 6.7 mg/mg Normal [facility] Comment on above: Performed By: #### C MP #### [facility] [address] [place] [address] Dr. Cortez Younger CBC AUTO DIFFon 01-18-2022 BASO # 0.0 103/ul Normal 0.0-0.1 [facility] Comment on above: Performed By: #### C BC #### [facility] [address] [place] [address] Dr. Cortez Younger Basophils/100 WBC (Bld) 0.1 % Critically low 0.2-2.0 [facility] Comment on above: Performed By: #### C BC #### [facility] [address] [place] [address] Dr. Cortez Younger EO # 0.0 103/ul Normal 0.0-0.7 [facility] Comment on above: Performed By: #### C BC #### [facility] [address] [place] [address] Dr. Cortez Younger Eosinophils/100 WBC (Bld) 0.0 % Critically low 0.9-7.0 [facility] Comment on above: Performed By: #### C BC #### [facility] [address] [place] [address] Dr. Cortez Younger Erythrocyte distribution width (RBC) [Ratio] 12.8 % Normal 11.0-15.0 [facility] Comment on above: Performed By: #### C BC #### [facility] [address] [place] [address] Dr. Cortez Younger Hematocrit (Bld) [Volume fraction] 42.7 % Normal 42.0-54.0 [facility] Comment on above: Performed By: #### C BC #### [facility] [address] [place] [address] Dr. Cortez Younger Hemoglobin (Bld) [Mass/Vol] 15.3 g/dL Normal 14.0-18.0 [facility] Comment on above: Performed By: #### C BC #### [facility] [address] [place] [address] Dr. Cortez Younger IG # 0.10 10e3/ul Critically high 0.00-0.03 [facility] Comment on above: Performed By: #### C BC #### [facility] [address] [place] [address] Dr. Cortez Younger IG % 0.7 % Critically high 0.0-0.5 [facility] Comment on above: Performed By: #### C BC #### [facility] [address] [place] [address] Dr. Cortez Younger LYMPH # 1.9 103/ul Normal 1.2-3.8 [facility] Comment on above: Performed By: #### C BC #### [facility] [address] [place] [address] Dr. Cortez Younger Lymphocytes/100 WBC (Bld) 13.5 % Critically low 20.5-60.0 [facility] Comment on above: Performed By: #### C BC #### [facility] [address] [place] [address] Dr. Cortez Younger MANUAL DIFF REQ NO Normal [facility] Comment on above: Performed By: #### C BC #### [facility] [address] [place], [place] [id number] Dr. Cortez Younger MCH (RBC) [Entitic mass] 31.4 pg Normal 25.9-34.0 [facility] Comment on above: Performed By: #### C BC #### [facility] [address] [place] [address] Dr. Cortez Younger MCHC (RBC) [Mass/Vol] 35.8 g/dL Critically high 29.9-35.2 [facility] Comment on above: Performed By: #### C BC #### [facility] [address] [place] [address] Dr. Cortez Younger MCV (RBC) [Entitic vol] 87.5 fL Normal 80.0-94.0 [facility] Comment on above: Performed By: #### C BC #### [facility] [address] [place] [address] Dr. Cortez Younger MONO # 0.8 103/ul Normal 0.3-0.8 [facility] Comment on above: Performed By: #### C BC #### [facility] [address] [place] [address] Dr. Cortez Younger Monocytes/100 WBC (Bld) 5.6 % Normal 1.7-12.0 [facility] Comment on above: Performed By: #### C BC #### [facility] [address] [place] [address] Dr. Cortez Younger NEUT # 11.4 103/ul Critically high 1.4-6.5 [facility] Comment on above: Performed By: #### C BC #### [facility] [address] [place] [address] Dr. Cortez Younger Neutrophils/100 WBC (Bld) 80.1 % Critically high 43.0-75.0 [facility] Comment on above: Performed By: #### C BC #### [facility] [address] [place] [address] Dr. Cortez Younger Platelet mean volume (Bld) [Entitic vol] 8.4 fL Critically low 9.5-13.5 [facility] Comment on above: Performed By: #### C BC #### [facility] [address] [place] [address] Dr. Cortez Younger PLT 352 103/ul Normal 150-450 [facility] Comment on above: Performed By: #### C BC #### [facility] [address] [place] [address] Dr. Cortez Younger RBC 4.88 106/ul Normal 4.70-6.10 [facility] Comment on above: Performed By: #### C BC #### [facility] [address] [place] [address] Dr. Cortez Younger WBC 14.2 103/ul Critically high 4.0-11.0 [facility] Comment on above: Performed By: #### C BC #### [facility] [address] [place] [address] Dr. Cortez Younger PROF 14(COMP METB)on 022 Albumin [Mass/Vol] 4.1 g/dL Normal 3.4-5.0 [facility] Comment on above: Performed By: #### C MP #### [facility] [address] [place] [address] Dr. Cortez Younger Albumin/Globulin [Mass ratio] 1.5 {ratio} Normal [facility] Comment on above: Performed By: #### C MP #### [facility] [address] [place] [address] Dr. Cortez Younger ALP [Catalytic activity/Vol] 77 U/L Normal 46-116 [facility] Comment on above: Performed By: #### C MP #### [facility] [address] [place] [address] Dr. Cortez Younger ALT [Catalytic activity/Vol] 19 U/L Normal 16-63 [facility] Comment on above: Performed By: #### C MP #### [facility] [address] [place] [address] Dr. Cortez Younger Anion gap [Moles/Vol] 10.6 mmol/L Normal [facility] Comment on above: Performed By: #### C MP #### [facility] [address] [place] [address] Dr. Cortez Younger AST [Catalytic activity/Vol] 8 U/L Critically low 15-37 [facility] Comment on above: Performed By: #### C MP #### [facility] [address] [address] [address] Cortez Younger Bilirubin [Mass/Vol] 0.3 mg/dL Normal 0.2-1.0 [facility] Comment on above: Performed By: #### C MP #### [facility] [address] [address] [address] Cortez Younger Calcium [Mass/Vol] 8.9 mg/dL Normal 8.5-10.1 [facility] Comment on above: Performed By: #### C MP #### [facility] [address] [address] [address] Cortez Younger Chloride [Moles/Vol] 91 mmol/L Critically low 98-107 [facility] Comment on above: Performed By: #### C MP #### [facility] [address] [address] [address] Cortez Younger CO2 [Moles/Vol] 30.1 mmol/L Normal 21.0-32.0 [facility] Comment on above: Performed By: #### C MP #### [facility] [address] [place] [address] Dr. Cortez Younger Creatinine [Mass/Vol] 0.88 mg/dL Normal 0.70-1.30 [facility] Comment on above: Performed By: #### C MP #### [facility] [address] [address] [address] Cortez Younger EGFR-AF LIBYAN >60 Normal >=60 [facility] Comment on above: Performed By: #### C MP #### [facility] [address] [address] [address] Cortez Younger EGFR-NON AF LIBYAN >60 Normal >=60 [facility] Comment on above: Performed By: #### C MP #### [facility] [address] [place] [address] Dr. Cortez Younger Globulin (S) [Mass/Vol] 2.8 g/dL Normal [facility] Comment on above: Performed By: #### C MP #### [facility] [address] [address] [address] Cortez Younger Glucose [Mass/Vol] 112 mg/dL Critically high 74-106 [facility] Comment on above: Performed By: #### C MP #### [facility] [address] [address] [address] Cortez Younger Potassium [Moles/Vol] 3.7 mmol/L Normal 3.5-5.1 [facility] Comment on above: Performed By: #### C MP #### [facility] [address] [address] [address] Cortez Younger Protein [Mass/Vol] 6.9 g/dL Normal 6.4-8.2 [facility] Comment on above: Performed By: #### C MP #### [facility] [address] [address] [address] Cortez Younger Sodium [Moles/Vol] 128 mmol/L Critically low 136-[address] [facility] Comment on above: Performed By: #### C MP #### [facility] [address] [address] [address] Cortez Younger Urea nitrogen [Mass/Vol] 9.0 mg/dL Normal 7.0-18.0 [facility] Comment on above: Performed By: #### C MP #### [facility] [address] [address] [address] Cortez Younger Urea nitrogen/Creatinin e [Mass ratio] 10.2 mg/mg Normal [facility] Comment on above: Performed By: #### C MP #### [facility] [address] [address] [address] Cortez Younger SED RATE WESTERGRENon 2021 SED RATE <1 Normal <=20 [facility] Comment on above: Performed By: #### S EDR ####[facility] [address] [address]Dr. Cortez Younger UA RANDOMon 01-18-2022 Bilirubin Ql (U) Negative Normal NEGATIVE [facility] Comment on above: Performed By: #### E RUR #### [facility] [address] [place] [address] Dr. Cortez Younger Clarity (U) CLEAR Normal CLEAR [facility] Comment on above: Performed By: #### E RUR #### [facility] [address] [place] [address] Dr. Cortez Younger Color (U) LT. YELLOW Normal YELLOW [facility] Comment on above: Performed By: #### E RUR #### [facility] [address] [place] [address] Dr. Cortez Younger Glucose Ql (U) Negative Normal NEGATIVE [facility] Comment on above: Performed By: #### E RUR #### [facility] [address] [place] [address] Dr. Cortez Younger Hemoglobin Ql (U) TRACE-LYSED Abnormal NEGATIVE [facility] Comment on above: Performed By: #### E RUR #### [facility] [address] [place] [address] Dr. Cortez Younger Ketones Ql (U) Negative Normal NEGATIVE [facility] Comment on above: Performed By: #### E RUR #### [facility] [address] [place] [address] Dr. Cortez Younger LEUKOCYTES TRACE Abnormal NEGATIVE [facility] Comment on above: Performed By: #### E RUR #### [facility] [address] [place] [address] Dr. Cortez Younger Nitrite Ql (U) Negative Normal NEGATIVE [facility] Comment on above: Performed By: #### E RUR #### [facility] [address] [place] [address] Dr. Cortez Younger pH (U) 6.5 [pH] Normal 5-9 [facility] Comment on above: Performed By: #### E RUR #### [facility] [address] [place] [address] Dr. Cortez Younger SPEC GRAVITY <=1.005 Abnormal 1.005-<=1.025 [facility] Comment on above: Performed By: #### E RUR #### [facility] [address] [address] [address] Cortez Younger UA PROTEIN Negative Normal NEGATIVE/ TRACE [facility] Comment on above: Performed By: #### E RUR #### [facility] [address] [address] [address] Cortez Younger Urobilinogen Qn (U) 0.2 {Fidelia'U}/dL Normal 0.2 - 1.0 [facility] Comment on above: Performed By: #### E RUR #### [facility] [address] [address] [address] Cortez Younger MRI CSPINE WO W [...] 2022-01-17 16:24 Normal [facility] MRI TSPINE WO W CONon 2021 [...] by: VERN LU Date: 2022-01-17 16:29 Normal [facility] MRI BRAIN WO W CONon [...] VERN LU Date: 2022-01-03 08:03 Normal [facility] CULTURE URINEon 12-12-2021 CULTURE URINE Culture Observations : No growth Normal [facility] Comment on above: Performed By: #### U RCX ####[facility] [address] [address]Dr. Cortez Younger UA RANDOMon 12-12-2021 Bilirubin Ql (U) Negative Normal NEGATIVE [facility] Comment on above: Performed By: #### U A #### [facility] [address] [place] [address] Dr. Cortez Younger Clarity (U) CLEAR Normal CLEAR [facility] Comment on above: Performed By: #### U A #### [facility] [address] [place] [address] Dr. Cortez Younger Color (U) LT. YELLOW Normal YELLOW [facility] Comment on above: Performed By: #### U A #### [facility] [address] [place] [address] Dr. Cortez Younger Glucose Ql (U) Negative Normal NEGATIVE [facility] Comment on above: Performed By: #### U A #### [facility] [address] [address] [address] Cortez Younger Hemoglobin Ql (U) LARGE Abnormal NEGATIVE [facility] Comment on above: Performed By: #### U A #### [facility] [address] [place] [address] Dr. Cortez Younger Ketones Ql (U) Negative Normal NEGATIVE [facility] Comment on above: Performed By: #### U A #### [facility] [address] [place] [address] Dr. Cortez Younger LEUKOCYTES Negative Normal NEGATIVE [facility] Comment on above: Performed By: #### U A #### [facility] [address] [place] [address] Dr. Cortez Younger Nitrite Ql (U) Negative Normal NEGATIVE [facility] Comment on above: Performed By: #### U A #### [facility] [address] [address] [address] Cortez Younger pH (U) 7.0 [pH] Normal 5-9 [facility] Comment on above: Performed By: #### U A #### [facility] [address] [address] [address] Cortez Younger SPEC GRAVITY 1.010 Normal 1.005-<=1.025 [facility] Comment on above: Performed By: #### U A #### [facility] [address] [address] [address] Cortez Younger UA PROTEIN Negative Normal NEGATIVE/ TRACE [facility] Comment on above: Performed By: #### U A #### [facility] [address] [place] [address] Dr. Cortez Younger Urobilinogen Qn (U) 0.2 {Fidelia'U}/dL Normal 0.2 - 1.0 [facility] Comment on above: Performed By: #### U A #### [facility] [address] [place] [address] Dr. Cortez Younger CBC AUTO DIFFon 12-03-2021 BASO # 0.2 103/ul Critically high 0.0-0.1 [facility] Comment on above: Performed By: #### C BC ####[facility] [address] [address]Dr. Cortez Younger Basophils/100 WBC (Bld) 1.3 % Normal 0.2-2.0 [facility] Comment on above: Performed By: #### C BC ####[facility] [address] [address]Dr. Cortez Younger EO # 0.2 103/ul Normal 0.0-0.7 [facility] Comment on above: Performed By: #### C BC ####[facility] [address] [address]Dr. Cortez Younger Eosinophils/100 WBC (Bld) 1.8 % Normal 0.9-7.0 [facility] Comment on above: Performed By: #### C BC ####[facility] [address] [place], [place] [address]Dr. Cortez Younger Erythrocyte distribution width (RBC) [Ratio] 13.3 % Normal 11.0-15.0 [facility] Comment on above: Performed By: #### C BC ####[facility] [address] [place], [place] [address]Dr. Cortez Younger Hematocrit (Bld) [Volume fraction] 45.0 % Normal 42.0-54.0 [facility] Comment on above: Performed By: #### C BC ####[facility] [address] [place], [place] [address]Dr. Cortez Aren Hemoglobin (Bld) [Mass/Vol] 15.6 g/dL Normal 14.0-18.0 [facility] Comment on above: Performed By: #### C BC ####[facility] [address] [place], [place] [address]Dr. Eleanorvalerie Aren IG # 0.05 10e3/ul Critically high 0.00-0.03 [facility] Comment on above: Performed By: #### C BC ####[facility] [address] [place], [place] [address]Dr. Cortez Younger IG % 0.4 % Normal 0.0-0.5 [facility] Comment on above: Performed By: #### C BC ####[facility] [address] [place], [place] [address]Dr. Cortez Younger LYMPH # 1.8 103/ul Normal 1.2-3.8 [facility] Comment on above: Performed By: #### C BC ####[facility] [address] [place], [place] [address]Dr. Cortez Younger Lymphocytes/100 WBC (Bld) 15.2 % Critically low 20.5-60.0 [facility] Comment on above: Performed By: #### C BC ####[facility] [address] [place], [place] [address]Dr. Cortez Younger MANUAL DIFF REQ NO Normal [facility] Comment on above: Performed By: #### C BC ####[facility] [address] [address]Dr. Eleanorvalerie Aren MCH (RBC) [Entitic mass] 31.1 pg Normal 25.9-34.0 [facility] Comment on above: Performed By: #### C BC ####[facility] [address] [address]Dr. Cortez Younger MCHC (RBC) [Mass/Vol] 34.7 g/dL Normal 29.9-35.2 [facility] Comment on above: Performed By: #### C BC ####[facility] [address] [place], [place] [address]Dr. Cortez Younger MCV (RBC) [Entitic vol] 89.8 fL Normal 80.0-94.0 [facility] Comment on above: Performed By: #### C BC ####[facility] [address] [place], [place] [address]DrFish Younger MONO # 0.6 103/ul Normal 0.3-0.8 [facility] Comment on above: Performed By: #### C BC ####[facility] [address] [place], [place] [address]DrFish Younger Monocytes/100 WBC (Bld) 5.3 % Normal 1.7-12.0 [facility] Comment on above: Performed By: #### C BC ####[facility] [address] [place], [place] [address]DrFish Younger NEUT # 8.9 103/ul Critically high 1.4-6.5 [facility] Comment on above: Performed By: #### C BC ####[facility] [address] [place], [place] [address]DrFish Younger Neutrophils/100 WBC (Bld) 76.0 % Critically high 43.0-75.0 [facility] Comment on above: Performed By: #### C BC ####[facility] [address] [place], [place] [address]DrFish Younger Platelet mean volume (Bld) [Entitic vol] 8.9 fL Critically low 9.5-13.5 [facility] Comment on above: Performed By: #### C BC ####[facility] [address] [address]DrFish Younger PLT 414 103/ul Normal 150-450 [facility] Comment on above: Performed By: #### C BC ####[facility] [address] [address]DrFish Younger RBC 5.01 106/ul Normal 4.70-6.10 [facility] Comment on above: Performed By: #### C BC ####[facility] [address] [address]DrFish Younger WBC 11.7 103/ul Critically high 4.0-11.0 [facility] Comment on above: Performed By: #### C BC ####[facility] [address] [address]Dr. Cortez Younger PROF 14(COMP METB)on 022 Albumin [Mass/Vol] 3.8 g/dL Normal 3.4-5.0 [facility] Comment on above: Performed By: #### C BC #### [facility] [address] [address] [address] Cortez Younger Albumin/Globulin [Mass ratio] 1.3 {ratio} Normal [facility] Comment on above: Performed By: #### C BC #### [facility] [address] [address] [address] Cortez Younger ALP [Catalytic activity/Vol] 95 U/L Normal 46-116 [facility] Comment on above: Performed By: #### C BC #### [facility] [address] [address] [address] Cortez Younger ALT [Catalytic activity/Vol] 25 U/L Normal 16-63 [facility] Comment on above: Performed By: #### C BC #### [facility] [address] [address] [address] Cortez Younger Anion gap [Moles/Vol] 12.7 mmol/L Normal [facility] Comment on above: Performed By: #### C BC #### [facility] [address] [address] [address] Cortez Younger AST [Catalytic activity/Vol] 18 U/L Normal 15-37 [facility] Comment on above: Performed By: #### C BC #### [facility] [address] [address] [address] Cortez Younger Bilirubin [Mass/Vol] 0.3 mg/dL Normal 0.2-1.0 [facility] Comment on above: Performed By: #### C BC #### [facility] [address] [address] [address] Cortez Younger Calcium [Mass/Vol] mg/dL Normal 8.5-10.1 [facility] Comment on above: Performed By: #### C BC #### [facility] [address] [address] [address] Cortez Younger Chloride [Moles/Vol] 98 mmol/L Normal 98-107 [facility] Comment on above: Performed By: #### C BC #### [facility] [address] [address] [address] Cortez Younger CO2 [Moles/Vol] 28.9 mmol/L Normal 21.0-32.0 [facility] Comment on above: Performed By: #### C BC #### [facility] [address] [address] [address] Cortez Younger Creatinine [Mass/Vol] 0.84 mg/dL Normal 0.70-1.30 [facility] Comment on above: Performed By: #### C BC #### [facility] [address] [address] [address] Coretz Younger EGFR-AF LIBYAN >60 Normal >=60 [facility] Comment on above: Performed By: #### C BC #### [facility] [id number] Cortez Younger EGFR-NON AF LIBYAN >60 Normal >=60 [facility] Comment on above: Performed By: #### C BC #### [facility] [address] [address] [address] Cortez Younger Globulin (S) [Mass/Vol] 3.0 g/dL Normal [facility] Comment on above: Performed By: #### C BC #### [facility] [address] [address] [address] Cortez Younger Glucose [Mass/Vol] 104 mg/dL Normal 74-106 [facility] Comment on above: Performed By: #### C BC #### [facility] [address] [address] [address] Cortez Younger Potassium [Moles/Vol] 3.6 mmol/L Normal 3.5-5.1 [facility] Comment on above: Performed By: #### C BC #### [facility] [address] [address] [address] Cortez Younger Protein [Mass/Vol] 6.8 g/dL Normal 6.4-8.2 [facility] Comment on above: Performed By: #### C BC #### [facility] [address] [address] [address] Cortez Younger Sodium [Moles/Vol] 136 mmol/L Normal 136-145 [facility] Comment on above: Performed By: #### C BC #### [facility] [address] [address] [address] Cortez Younger Urea nitrogen [Mass/Vol] 6.0 mg/dL Critically low 7.0-18.0 [facility] Comment on above: Performed By: #### C BC #### [facility] [address] [address] [address] Cortez Younger Urea nitrogen/Creatinin e [Mass ratio] 7.1 mg/mg Normal [facility] Comment on above: Performed By: #### C BC #### [facility] [address] [address] [address] Cortez Younger SURGICAL PATH REPORTon 01-25 SURGICAL PATH REPORT [facility] Department of Pathology [address] [place] [id number] Name: HARISH MCKENNA : 1970 Financial [id number] Number: Gender: Male Location: [facility] Admit 50 years Attending CRUZITO TOMLINSON JR Age: Provider: Ordering CRUZITO TOMLINSON JR Provider: Consulting: Surgical Pathology Report ACCESSION: COLLECTED DATE/TIME: RECEIVED DATE/TIME: PATHOLOGIST: [id number] 01/23/2021 12:05 EDT 01/24/2021 12:05 EDT ALVIN CADET MD Final Diagnosis Report for [facility] [place], [place] ANTRUM, BIOPSY: - MILD CHRONIC GASTRITIS. [...] MP/ts 01/24/2021 Tissue pathology report for: [facility], [address] [place] [address]; Print Date/ 01/25/2021 12:34 EDT Number: Time: [facility] Department of Pathology [address] [place] [id number] Name: HARISH MCKENNA : 1970 Financial [id number] Number: Gender: Male Location: [facility] Admit 50 years Attending CRUZITO TOMLINSON JR Age: Provider: Ordering CRUZITO TOMLINSON JR Provider: Consulting: Surgical Pathology Report ACCESSION: COLLECTED DATE/TIME: RECEIVED DATE/TIME: PATHOLOGIST: [id number] 01/23/2021 12:05 EDT 01/24/2021 12:05 EDT ALVIN CADET MD Gross Description PATHOLOGY SERVICES PROVIDED BY [facility] (CLIA #[id number]) in cooperation with [facility] at [address] [place] [address] (CLIA #[id number]) Microscopic Diagnosis NOTE: One or more of the reagents used to perform assays on this specimen MAY have contained components considered to be analyte specific reagents ( ASRs). ASRs have not been cleared or approved by the U.S. Food and Drug Administration. The performance characteristics of these assays have been determined by the Department of Pathology at [facility]. This assay was performed subsequent to the H and E examination. Appropriate positive and negative controls were examined with appropriate reactivity. Codes CPT CODE: 69059 [id number] Print Date01/25/2021 12:34 EDT Number: Time: Normal [facility] Comment on above: Performed By: #### [id number] #### [facility] Services [address] [place] [address] Antique Repairer: Alvin Cadet MD Vital Signs Date Time Vital Sign Value Performing Clinician Facility 11-01-2024 16:27-0400 Body height 177.8 cm Bubba Ghotra MD Work Phone: [facility] 11-01-2024 16:27-0400 Body mass index (BMI) [Ratio] 20.66 kg/m2 Bubba Ghotra MD Work Phone: [facility] 11-01-2024 16:27-0400 Body weight 65.32 kg Bubba Ghotra MD Work Phone: [facility] 09-28-2024 14:08-0400 Body height 177.8 cm Rebamaura Posada PA Work Phone: [facility] 09-28-2024 14:08-0400 Body mass index (BMI) [Ratio] 20.66 kg/m2 Rebamaura Posada PA Work Phone: [facility] 09-28-2024 14:08-0400 Body weight 65.32 kg Rebamaura Posada PA Work Phone: [facility] 09-28-2024 14:08-0400 Diastolic blood pressure 62 mm[Hg] Reba Posada PA Work Phone: [facility] 09-28-2024 14:08-0400 Respiratory rate 16 /min Reba Posada PA Work Phone: [facility] 09-28-2024 14:08-0400 Systolic blood pressure 102 mm[Hg] Reba Posada PA Work Phone: [facility] 08-30-2024 15:51-0500 Body height 177.8 cm Bubba Ghotra MD Work Phone: [facility] 08-30-2024 15:51-0500 Body mass index (BMI) [Ratio] 20.95 kg/m2 Bubba Ghotra MD Work Phone: [facility] 08-30-2024 15:51-0500 Body weight 66.22 kg Bubba Ghotra MD Work Phone: [facility] 06-07-2024 15:45-0500 Body height 177.8 cm Rebamaura Posada PA Work Phone: [facility] 06-07-2024 15:45-0500 Body mass index (BMI) [Ratio] 18.94 kg/m2 Rebamaura Posada PA Work Phone: [facility] 06-07-2024 15:45-0500 Body weight 59.88 kg Reba Posada PA Work Phone: [facility] 06-07-2024 15:45-0500 Diastolic blood pressure 72 mm[Hg] Reba Posada PA Work Phone: [facility] 06-07-2024 15:45-0500 Heart rate 71 /min Reba Posada PA Work Phone: [facility] 06-07-2024 15:45-0500 Respiratory rate 16 /min Reba Posada PA Work Phone: [facility] 06-07-2024 15:45-0500 SaO2% (BldA) [Mass fraction] 94 % Reba Posada PA Work Phone: [facility] 06-07-2024 15:45-0500 Systolic blood pressure 112 mm[Hg] Reba Posada PA Work Phone: [facility] 05-10-2024 13:14-0400 Body height 177.8 cm [facility] 05-10-2024 13:14-0400 Body mass index (BMI) [Ratio] 19.3 kg/m2 [facility] 05-10-2024 13:14-0400 Body temperature 97.2 [degF] [facility] 05-10-2024 13:14-0400 Body weight 61 kg [facility] 05-10-2024 13:14-0400 Diastolic blood pressure 72 mm[Hg] [facility] 05-10-2024 13:14-0400 Systolic blood pressure 112 mm[Hg] [facility] 04-11-2024 16:32-0400 Body height 177.8 cm Reba Posada PA Work Phone: [facility] 04-11-2024 16:32-0400 Body mass index (BMI) [Ratio] 18.65 kg/m2 Reba Posada PA Work Phone: [facility] 04-11-2024 16:32-0400 Body weight 58.97 kg Reba Posada PA Work Phone: [facility] 04-11-2024 16:32-0400 Diastolic blood pressure 78 mm[Hg] Reba Posada PA Work Phone: [facility] 04-11-2024 16:32-0400 Heart rate 70 /min Reba Posada PA Work Phone: [facility] 04-11-2024 16:32-0400 Respiratory rate 16 /min Reba Posada PA Work Phone: [facility] 04-11-2024 16:32-0400 SaO2% (BldA) [Mass fraction] 96 % Reba Posada PA Work Phone: [facility] 04-11-2024 16:32-0400 Systolic blood pressure 120 mm[Hg] Reba Posada PA Work Phone: [facility] 04-04-2024 16:34-0400 Body height 177.8 cm Bubba Ghotra MD Work Phone: [facility] 04-04-2024 16:34-0400 Body mass index (BMI) [Ratio] 18.37 kg/m2 Bubba Ghotra MD Work Phone: [facility] 04-04-2024 16:34-0400 Body weight 58.06 kg Bubba Ghotra MD Work Phone: [facility] 04-04-2024 16:34-0400 Diastolic blood pressure 80 mm[Hg] Bubba Ghotra MD Work Phone: [facility] 04-04-2024 16:34-0400 Heart rate 71 /min Bubba Ghotra MD Work Phone: [facility] 04-04-2024 16:34-0400 SaO2% (BldA) [Mass fraction] 97 % Bubba Ghotra MD Work Phone: [facility] 04-04-2024 16:34-0400 Systolic blood pressure 140 mm[Hg] Bubba Ghotra MD Work Phone: [facility] 09-17-2023 14:59-0500 Body height 177.8 cm [facility] 09-17-2023 14:59-0500 Body mass index (BMI) [Ratio] 18.8 kg/m2 [facility] 09-17-2023 14:59-0500 Body temperature 98.1 [degF] [facility] 09-17-2023 14:59-0500 Body weight 59.42 kg [facility] 09-17-2023 14:59-0500 Diastolic blood pressure 45 mm[Hg] [facility] 09-17-2023 14:59-0500 Systolic blood pressure 82 mm[Hg] [facility] 03-25-2023 13:30-0400 Body height 177.8 cm Mahnaz Ira Other [facility] [employer] Other 03-25-2023 13:30-0400 Body mass index (BMI) [Ratio] 18.65 kg/m2 Mahnaz Ira Other [facility] [employer] Other 03-25-2023 13:30-0400 Body temperature 98.4 [degF] Mahnaz Ira Other [employer] Other 03-25-2023 13:30-0400 Body weight 58.97 kg Mahnaz Ira Other [employer] Other 03-25-2023 13:30-0400 Diastolic blood pressure 87 mm[Hg] Mahnaz Roth Other [employer] Other 03-25-2023 13:30-0400 Systolic blood pressure 135 mm[Hg] Mahnaz Roth Other [employer] Other 12-24-2021 09:50-0400 Blood Pressure Location Gustavo Graves Jr. [facility] 12-24-2021 09:50-0400 Diastolic blood pressure 76 mm[Hg] Gustavo Graves Jr[facility] 12-24-2021 09:50-0400 Heart rate 68 /min Gustavo Graves Jr. [facility] 12-24-2021 09:50-0400 Systolic blood pressure 132 mm[Hg] [facility] Jr[facility] Encounters Encounter Date Encounter Type Care Provider Facility Start: 11-25-2024 ambulatory LAMAR Sheikh ty:[facility]ER[facility] [place] Start: 11-19-2024 End: 11-21-2024 Clinisync Result Encounter Generic External Data Provider [facility] External Department Unsolicited Start: 11-19-2024 End: 11-21-2024 Clinisync Result Encounter Generic External Data Provider [facility] External Department Unsolicited Start: 11-07-2024 End: 11-07-2024 ambulatory [facility] Work Phone: Start: 11-07-2024 End: 11-07-2024 Patient encounter procedure [facility] Work Phone: Start: 11-01-2024 End: 11-01-2024 Office outpatient visit 25 minutes Bubba Ghotra MD Work Phone: [facility] Comment on above: COPD with acute exac erbation (CMS/HCC) (Primary Dx); Cigarette smoker; Marijuana smoker; Olecranon bursitis of right elbow; Swelling of right ankle joint; Polypharmacy Start: 11-01-2024 End: 11-01-2024 ambulatory BUBBA GHOTRA Not Available Start: 11-01-2024 End: 11-01-2024 Bamboo flowsheet Bubba Ghotra MD Work Phone: [facility] Start: 11-01-2024 End: 11-01-2024 Bamboo flowsheet Bubba Ghotra MD Work Phone: [facility] Start: 10-20-2024 End: 10-24-2024 Telephone encounter Bubba Ghotra MD Work Phone: [facility] Comment on above: Care Coordination Start: 10-19-2024 End: 10-20-2024 Telephone encounter Bubba Ghotra MD Work Phone: [facility] Start: 10-17-2024 End: 10-18-2024 Refill Elaina Burgess PA Work Phone: [facility] Comment on above: Cervical radiculopat hy; Sensory disturbance; Muscle spasm; Tremor Start: 09-28-2024 End: 09-28-2024 Office outpatient visit 25 minutes Reba RIGGINS Work Phone: [facility] Comment on above: Multiple sclerosis ( CMS/HCC) (Primary Dx); Other chronic pain; Tremor Start: 09-28-2024 End: 09-28-2024 ambulatory REBA POSADA Not Available Start: 09-14-2024 End: 09-14-2024 ambulatory [facility] Start: 08-30-2024 End: 08-30-2024 Office outpatient visit 15 minutes Bubba Ghotra MD Work Phone: [facility] Comment on above: Urinary incontinence without sensory awareness; Post-void dribbling; Relapsing remitting multiple sclerosis (CMS/HCC) Start: 08-30-2024 End: 08-30-2024 ambulatory BUBBA GHOTRA Not Available Start: 08-23-2024 End: 08-23-2024 ambulatory [facility] Work Phone: Start: 08-23-2024 End: 08-23-2024 Patient encounter procedure [facility] Work Phone: Start: 08-10-2024 End: [...] 06-22-2024 Telephone encounter Reba RIGGINS Work Phone: [facility] [place] [address] [facility] Comment on above: MED FOR [...] 05-16-2024 Refill Kenna Lockett RN Work Phone: [facility] Comment on above: Insomnia, unspecifie d type (Primary Dx); Relapsing remitting multiple sclerosis (CMS/HCC) Start: 05-10-2024 End: 05-10-2024 ambulatory [facility] Work Phone: Start: 05-10-2024 End: 05-10-2024 Patient encounter procedure [facility] Work Phone: Start: 04-18-2024 End: 04-19-2024 Refill Elaina RIGGINS Work Phone: [facility] Comment on above: Cervical radiculopat hy; Sensory disturbance Start: 04-15-2024 End: 04-18-2024 Refill Kenna Lockett RN Work Phone: [facility] Comment on above: Venous insufficiency ; Relapsing remitting multiple sclerosis (CMS/HCC) Start: 04-14-2024 End: 04-14-2024 ambulatory [facility] Work Phone: Start: 04-14-2024 End: 04-14-2024 Patient encounter procedure [facility] Physician [facility] Work Phone: Start: 04-11-2024 End: 04-11-2024 ambulatory REBA POSADA Not Available Start: 04-11-2024 End: 04-11-2024 Office outpatient visit 25 minutes Reba RIGGINS Work Phone: [facility] Comment on above: Multiple sclerosis ( CMS/HCC) (Primary Dx); Neurogenic bladder; Other chronic pain; Tremor Start: 04-11-2024 End: 04-11-2024 Bamboo flowsheet Reba Posada PA Work Phone: [facility] [address] Start: 04-11-2024 End: 04-11-2024 Bamboo flowsheet [facility] Posada [facility] Start: 04-05-2024 End: 04-05-2024 Clinisync Result Encounter Elaina Lowe PA Work Phone: [facility] External Department Unsolicited Start: 04-05-2024 End: 04-05-2024 Clinisync Result Encounter Elaina Lowe PA Work Phone: [facility] External Department Unsolicited [...] 100 Start: 03-23-2024 End: 03-29-2024 Refill Elaina Lowe PA Work Phone: [facility] Comment on above: Tremor; Cervical radiculopathy Start: 03-04-2024 End: 03-04-2024 ambulatory [facility] Start: 01-19-2024 End: 01-19-2024 ambulatory [facility] Work Phone: Start: 01-19-2024 End: 01-19-2024 Patient encounter procedure [facility] Work Phone: Start: 12-23-2023 End: 12-23-2023 ambulatory BUBBA Mannie GHOTRA Not Available Start: 11-26-2023 End: 11-26-2023 ambulatory BUBBA Mannie GHOTRA Not Available Start: 11-18-2023 End: 11-18-2023 ambulatory [facility] Work Phone: Start: 11-18-2023 End: 11-18-2023 Patient encounter procedure [facility] Work Phone: Start: 09-17-2023 End: 09-17-2023 Patient encounter procedure [facility] Work Phone: Start: 08-26-2023 End: 08-29-2023 Non-patient / Non-visit [facility] Work Phone: Start: 08-21-2023 End: 08-21-2023 ambulatory Mahnaz Ira Other [employer] Other Start: 08-21-2023 Telephone encounter [address]az [address] [facility] Start: 07-22-2023 End: 07-22-2023 ambulatory Mahnaz Ira Other [employer] Other Start: 07-22-2023 Telephone encounter Mahnaz Tuckerraw [facility] Start: 06-24-2023 End: 06-24-2023 ambulatory Mahnaz Ira Other [employer] Other Start: 06-24-2023 [address]naz Ira [facility] Start: 05-28-2023 End: 05-28-2023 ambulatory Mahnaz Ira Other [employer] Other Start: 05-28-2023 Telephone encounter Mahnaz Ira [facility] Start: 05-19-2023 End: 05-19-2023 ambulatory Mahnaz Ira Other [employer] Other Start: 05-19-2023 Office outpatient vi sit 15 minutes Mahnaz Ira [facility] Start: 04-21-2023 End: 04-21-2023 ambulatory Mahnaz Ira Other [employer] Other Start: 04-21-2023 Office outpatient vi sit 15 minutes Mahnaz Ira [facility] Start: 04-07-2023 End: 04-07-2023 ambulatory Mahnaz Ira Other [employer] Other Start: 04-07-2023 Telephone encounter Mahnaz Ira [facility] Start: 04-02-2023 End: 04-02-2023 ambulatory Mahnaz Ira Other [employer] Other Start: 04-02-2023 Telephone encounter Mahanz Ira [facility] Start: 04-01-2023 End: 04-01-2023 ambulatory Mahnaz Ira Other [employer] Other Start: 04-01-2023 Telephone encounter Mahnaz Ira [facility] Start: 03-25-2023 End: 03-25-2023 ambulatory Mahnaz Ira Other [employer] Other Start: 03-25-2023 Office outpatient ne w [...] DR BUBBA GHOTRA . Fac ility:[facility] Start: 06-26-2022 End: 06-27-[address] LISA [...] NONE LISTED REQUEST Facility:[facility] Start: 12-24-2021 End: 12-24-2021 Patient encounter procedure Gustavo Graves Jr. [facility] Start: 12-17-2021 End: 12-19-[address] DOCTOR BENNETT Facility:[facility] Start: 12-12-2021 End: 12-13-2021 ambulatory LAMAR TURNER Facility:[facility] Start: 12-05-2021 End: 12-05-2021 Patient encounter procedure Gustavo Graves Jr. [facility] Start: 12-03-2021 End: 12-04-2021 ambulatory REBA PURCELL Facility: Start: 12-11-2017 End: 12-12-2017 Patient encounter procedure Tunde W. Das Facility:[facility] Procedures Date Procedure Procedure Detail Performing Clinician Start: 11-19-2024 BLOOD CULTURE 2 Generic External Data Provider Start: 11-19-2024 BLOOD CULTURE 1 Generic External Data Provider Start: 05-27-2024 ALL SODIUM Generic Ex ternal Data Provider Start: 04-05-2024 ALL CBC WITH AUTO DIFF Elaina RIGGINS Work Phone: Start: 10-14-2021 Cystoscopy [facility] Start: 09-13-2019 Cystoscopy Gustavo [facility] Cholecystectomy Gustavo Graves Jr. Counseling Mahnaz corcoran Other Plan of Treatment Date Care Activity Detail Author Start: 04-19-2027 Screening for malign ant neoplasm of colon [facility] Start: 12-29-2024 End: 12-29-2024 Patient encounter procedure 12/29/2024 1:00 PM EDT Office Visit [facility] [address] [place] [address] Reba Posada PA [address] [place] [address] [facility] Start: 12-22-2024 Medicare Annual Well ness (AWV) Medicare Annual Wellness (AWV) [facility] Start: 11-28-2024 End: 11-28-2024 Patient encounter procedure 11/28/2024 3:30 PM EDT Office Visit [facility] [address] [place] [address] Bubba Ghotra MD [address] [place] [address] (Fax) [facility] Start: 11-01-2024 End: 11-01-2024 Patient encounter procedure 11/01/2024 4:30 PM EDT Office Visit [facility] [address] [place] [id number] Bubba Ghotra MD [address] [facility] [address] [place] [address] (Fax) Arrived [facility] Comment on above: Arrived Start: 09-28-2024 End: 09-28-2024 Patient encounter procedure [facility] [place] [facility] Start: 09-28-2024 End: 09-28-2025 CBC W Auto Differential panel - Blood CBC auto differential Lab Routine Multiple sclerosis ([facility]) Expected: 09/28/2024 (Approximate), Expires: 09/28/2025 [facility] Comment on above: Expected: 09/28/2024 (Approximate), Expires: 09/28/2025 Start: 09-28-2024 End: 09-28-2025 Comprehensive metabolic 2000 panel - Serum or Plasma Comprehensive metabolic panel Lab Routine Multiple sclerosis ([facility]) Expected: 09/28/2024 (Approximate), Expires: 09/28/2025 [facility] Comment on above: Expected: 09/28/2024 (Approximate), Expires: 09/28/2025 Start: 09-28-2024 End: 09-28-2025 IgG [Mass/volume] in Serum or Plasma IgG Lab Routine Multiple sclerosis ([facility]) Expected: 09/28/2024 (Approximate), Expires: 09/28/2025 [facility] Work Phone: Comment on above: Expected: 09/28/2024 (Approximate), Expires: 09/28/2025 Start: 09-12-2024 End: 09-12-2024 Patient encounter procedure 09/12/2024 2:45 PM EST Consult [facility] [address] [place] [phone] Krishna Hernandez DO [address] [place] [address] [facility] Start: 08-18-2024 End: 08-18-2024 Patient encounter procedure 08/18/2024 3:30 PM EST Office Visit [facility] [address] [place] [address] Bubba Ghotra MD [address] [place] [address] [facility] Start: 07-11-2024 End: 07-11-2024 Patient encounter procedure [facility] Comment on above: Primary hypertension (CMS/HCC); Primary insomnia; Mixed hyperlipidemia (CMS/HCC); Protein-calorie malnutrition, moderate (CMS/HCC) Start: 06-07-2024 End: 06-07-2024 Patient encounter procedure 06/07/2024 3:40 PM EST Office Visit [facility] [place] [address] [place] [phone] Reba Posada PA [address] [place] [address] [facility] [place] [facility] Start: 05-13-2024 End: 04-12-2025 Sodium [Moles/volume] in Serum or Plasma Sodium Lab Routine Multiple sclerosis (CMS/HCC) Expected: 05/13/2024 (Approximate), Expires: 04/12/2025 [facility] Work Phone: Comment on above: Expected: 05/13/2024 (Approximate), Expires: 04/12/2025 Start: 05-10-2024 End: 05-10-2024 Patient encounter procedure 05/10/2024 1:20 PM EDT Office Visit [facility] [place] [address] [place] [phone] Reba Posada PA [address] [place] [address] [facility] [place] [address] [facility] Start: 04-11-2024 End: 04-11-2024 Patient encounter procedure 04/11/2024 11:20 AM EDT Office Visit [facility] [place] [address] [place] [phone] Reba Posada PA [address] [place] [id number] [facility] [place] [facility] Start: 04-04-2024 End: 04-04-2024 Patient encounter procedure [facility] Comment on above: Primary hypertension (CMS/HCC); Simple chronic bronchitis (CMS/HCC); Panlobular emphysema (CMS/HCC); Gastroesophageal reflux disease without esophagitis; Mixed hyperlipidemia (CMS/HCC); Former smoker; Polypharmacy; Underweight Start: 1970 Screening for malign ant neoplasm of colon [facility] BLOOD CULTURE 1 BLOOD CULTURE 1 Lab Routine 11/19/2024 3:38 AM EDT [facility] BLOOD CULTURE 2 BLOOD CULTURE 2 Lab Routine 11/19/2024 3:45 AM EDT [facility] Immunizations Immunization Date Immunization Notes Care Provider Fa cility 10-22-2020 SARS-CoV-2 (COVID-19 ) mRNA BNT-162b2 vax Gustavo Graves Jr. [facility] 10-01-2020 SARS-CoV-2 (COVID-19 ) mRNA BNT-162b2 vax Gustavo Graves Jr. [facility] Payers Date Payer Category Payer Medicare (Managed Care) 1.2. [id number] 2024 Medicare [id number] 2019 Medicaid [id number] 2003 Medicare [id number] [id number] .[id number] 1969 Unknown [id number] 2.16.840.1.332316.3.579.2.593 1969 Unknown [id number] 2.16.840.1.206918.3.579.2.593 1969 Unknown [id number] 2.16.840.1.671127.3.579.2.593 1969 Unknown [id number] 2.16.840.1.541777.3.579.2.593 1969 Unknown [id number] 2.16.840.1.014994.3.579.2.593 1969 Unknown [id number] 2.16.840.1.119830.3.579.2.593 1969 Unknown [id number] 2.16.840.1.856615.3.579.2.593 1969 Unknown [id number] 2.16.840.1.959450.3.579.2.593 1969 Unknown [id number] 2.16.840.1.124512.3.579.2.593 1969 Unknown [id number] 2.16.840.1.273392.3.579.2.593 1969 Unknown [id number] 2.16.840.1.221785.3.579.2.593 1969 Unknown [id number] 2.16.840.1.576088.3.579.2.593 1969 Unknown [id number] 2.16.840.1.145095.3.579.2.593 1969 Unknown [id number] 2.16.840.1.615910.3.579.2.593 1969 Unknown [id number] 2.16.840.1.474465.3.579.2.593 1969 Unknown [id number] 2.16.840.1.765062.3.579.2.593 1969 Unknown [id number] 2.16.840.1.220758.3.579.2.593 1969 Unknown [id number] 2.16.840.1.095280.3.579.2.593 1969 Unknown [id number] 2.16.840.1.732434.3.579.2.593 1969 Unknown [id number] 2.16.840.1.495277.3.579.2.593 1969 Unknown [id number] 2.16.840.1.555149.3.579.2.128 6 1969 Unknown [id number] 2.16.840.1.447764.3.579.2.128 6 1969 Unknown [id number] 2.16.840.1.143272.3.579.2.125 9 1969 Unknown [id number] 2.16.840.1.508458.3.579.2.125 9 1969 Unknown [id number] 2.16.840.1.147579.3.579.2.125 9 1969 Unknown [id number] 2.16.840.1.196482.3.579.2.125 9 1969 Unknown [id number] 2.16.840.1.100432.3.579.2.125 9 1969 Unknown [id number] 2.16.840.1.767839.3.579.2.125 9 1969 Unknown [id number] 2.16.840.1.351062.3.579.2.125 9 1969 Unknown [id number] 2.16.840.1.755351.3.579.2.125 9 1969 Unknown [id number] 2.16.840.1.881894.3.579.2.125 9 1969 Unknown [id number] 2.16.840.1.797906.3.579.2.125 9 1969 Unknown [id number] 2.16.840.1.357130.3.579.2.727 1960 Medicaid [id number] 1960 Medicare [id number] 1960 Self-pay Private Health Insurance Unknown HCAP/HFA/FAP Active [id number] Social History Date Type Detail Facility Start: 10-14-2021 End: 12-23-2023 Tobacco smoking status Ex-smoker (finding) [facility] Start: 12-01-2022 End: 01-23-2023 Sex Assigned At Male [facility] Start: 1970 Sex Assigned At Male F [facility] Start: 08-18-2008 End: 08-18-2023 History of tobacco [...] intak e - 3-4 cans Pepsi daily [facility] Start: 1970 Sex assigned at Not on file [facility] Tobacco smoking stat NHIS Unknown if ever smoked [facility] Work Phone: Start: 08-23-2024 End: 11-07-2024 Sex Male (finding) [facility] Functional Status Date Assessment Result Facility 12-24-2021 Functional Status N/A [facility] Clinical Notes 12-05-2021 to 11-01-2024 [...] if needed for opioid reversal. [facility] times per day regularly and [...] to visit. 1. COPD with acute exacerbation ([facility]) (Primary) Chronic problem with acute exacerbation. [...] evaluation and management. documented in this encounter [facility] 10-24-2024 Telephone encount er Note You prescription sent [facility] 10-24-2024 Miscellaneous Notes Formattin g of this note might be different from the original. You prescription sent [facility] called back and stated that a PA [...] is being taken with the Abilify. ID# [id number] documented in this encounter [facility] 10-24-2024 Telephone encount er Note [facility] called back and stated that a PA does not need done if [facility] changes the script because it is a quantity issue. If he changes it to 100mg 0.5-1 tablet that should work with the extra after four hours of wakening. [facility] 10-20-2024 Telephone encount er Note They do not like the amount per day and that it is being taken with the Abilify. ID# [id number] [facility] 10-20-2024 Telephone encount er Note Prescription sent [facility] 10-20-2024 Miscellaneous Notes Formattin g of this note might be different from the original. Prescription sent Corinne from [facility] called, harish is in need of losartan (Cozaar) 100 MG metoprolol tartrate (Lopressor) 50 MG They are asking to be sent in by . They are filling his meds on Thursday. documented in this encounter [facility] 10-19-2024 Telephone encount er Note Corinne from [facility] called, harish is in need of losartan (Cozaar) 100 MG metoprolol tartrate (Lopressor) 50 MG They are asking to be sent in by . They are filling his meds on Thursday. [facility] 10-18-2024 Telephone encount er Note Please send Lyrica. I cannot get it to let me just decline the trileptal. Looks like we discontinued this last visit [facility] 10-18-2024 Miscellaneous Notes Formattin g of this note might be different from the original. Please send Lyrica. I cannot get it to let me just decline the trileptal. Looks like we discontinued this last visit documented in this encounter [facility] 09-28-2024 History of Presen t illness Narrative Subjective Harish Mckenna is a 54 y.o. year old male Chief Complaint Patient presents with Multiple Sclerosis Past Medical History: Diagnosis Date Anxiety Asthma ([facility]) Body mass index (BMI) of 21.0 to 21.9 in adult normal BMI BPH (benign prostatic hyperplasia) Cervical radiculopathy Cigarette smoker 12/01/2022 COPD (chronic obstructive pulmonary disease) ([facility]) ED (erectile dysfunction) Emphysema lung ([facility]) GERD (gastroesophageal reflux disease) Headache Herpes simplex 02/08/2008 Mononeuritis of lower limb 02/19/2012 MS (mitral stenosis) Multiple sclerosis ([facility]/HCC) 02/17/2008 Sleep disturbance 03/27/2011 Smoker Past Surgical History: Procedure Laterality Date KNEE SURGERY Left 04/2013 arthroscopy - [place] OTHER SURGICAL HISTORY 11/2021 urolift procedure, [facility], Dr. Graves [place],CHOLECYSTECTOMY 11/16/2013 TONSILLECTOMY WISDOM [...] Review Audit Reviewed by Adia Laurent MA (Telecommunications Operator) on 09/28/24 at 1417 Medication Order Taking? Sig Documenting Provider Last Dose Status albuterol (2.5 MG/3ML) 0.083% nebulizer solution [id number] Take 3 mL (2.5 mg) by nebulization every 6 (six) hours if needed for wheezing Bubba Ghotra MD 08/30/24 2359 ARIPiprazole (Abilify) 5 MG tablet [id number] No Take 5 mg by mouth Daily Historical Provider, Taking Active baclofen (Lioresal) 20 MG tablet [id number] Take 1 tablet (20 mg) by mouth in the morning and 1 tablet (20 mg) in the evening and 1 tablet (20 mg) before bedtime. GILSON James 08/30/24 2359 budesonide-formoterol (Symbicort) 160-4.5 MCG/ACT inhaler [id number] Inhale 2 puffs in the morning and 2 puffs before bedtime. Bubba Ghotra MD Active Cannabinoids (medical cannabis) [id number] No Take 1 each by mouth Daily as needed. Bubba Ghotra MD Taking Active clonazePAM (KlonoPIN) 1 MG tablet [id number] No Take 1 mg by mouth in the morning and 1 mg before bedtime. Taking Active Docusate Sodium (DSS) 100 MG capsule [id number] Take 2 capsules by mouth Daily Active DULoxetine (Cymbalta) [address] capsule [id number] No Take 2 capsules by mouth in the morning. Historical ProviderMD Taking Active ipratropium (Atrovent) 0.06 % nasal spray [id number] Administer 2 sprays into each nostril in the morning and 2 sprays before bedtime. Bubba Ghotra MD Active losartan (Cozaar) 100 MG tablet [id number] Take 1 tablet (100 mg) by mouth Daily Bubba Ghotra MD Active meclizine (Antivert) 25 MG tablet [id number] No Take 25 mg by mouth 3 (three) times a day as needed for nausea. Historical Provider, Taking Active metoprolol tartrate (Lopressor) 50 MG tablet [id number] Take 1.5 tablets (75 mg) by mouth in the morning and 1.5 tablets (75 mg) before bedtime. Bubba Ghotra MD Active naloxone (Narcan) 4 mg/0.1 mL nasal spray [id number] No Administer 4 mg into affected nostril(s) if needed for opioid reversal. Historical Provider, Taking Active Nebulizers (Compressor/Nebul[place] [facility] [id number] No Use 4 times per day regularly and every 4 hours as needed for shortness of breath and wheezing as directed Bubba Ghotra MD Taking Active Ocrevus 300 MG/10ML solution [id number] No Infuse into a venous catheter every 6 (six) months Bubba Ghotra MD Taking Active ondansetron ODT (Zofran-ODT) 4 MG disintegrating tablet [id number] Take 1 tablet (4 mg) by mouth every 8 (eight) hours if needed for nausea Bubba Ghotra MD Active OXcarbazepine (Trileptal) 300 MG tablet [id number] Take 1 tablet (300 mg) by mouth at bedtime GILSON James 08/30/24 2359 oxyCODONE (Roxicodone) 15 MG immediate release tablet [id number] Take 15 mg by mouth every 6 (six) hours if needed (pain) Bubba Ghotra MD Active oxygen (O2) gas [id number] No Inhale 2-3 L/min continuously via nasal canula Taking Active oxygen (O2) gas [id number] No Inhale oxygen via portable oxygen concentrator and nasal canula setting of 3 To maintain pulse ox saturation of 92% Bubba Ghotra MD Taking Active pantoprazole (ProtoNix) 40 MG EC tablet [id number] Take 1 tablet (40 mg) by mouth in the morning and 1 tablet (40 mg) before bedtime. Bubba Ghotra MD Active pregabalin (Lyrica) 200 MG capsule [id number] Take 1 capsule (200 mg) by mouth in the morning and 1 capsule (200 mg) in the evening and 1 capsule (200 mg) before bedtime. GILSON James 08/30/24 2359 primidone (Mysoline) 50 MG tablet [id number] Take 2 tablets (100 mg) by mouth at bedtime GILSON James 08/30/24 2359 promethazine (Phenergan) 25 MG tablet [id number] No Take 25 mg by mouth every 6 (six) hours if needed for nausea. Stan Blanchard MD Taking Active QUEtiapine (SEROquel) 50 MG tablet [id number] Take 1-2 tablets (50-100 mg) by mouth at bedtime May repeat in about 4 hours upon awakening Bubba Ghotra MD Active senna (Senokot) 8.6 MG tablet [id number] No Take 2 tablets by mouth 2 (two) times a day as needed for constipation Bubba Ghotra MD Taking Active sildenafil (Viagra) 100 MG tablet [id number] Take 1 tablet (100 mg) by mouth Daily as needed for erectile dysfunction Bubba Ghotra MD Active sodium chloride 0.9 % nebulizer solution [id number] Take 3 mL by nebulization every 4 (four) hours if needed for shortness of breath (and muus clearance) Bubba Ghotra MD Active spironolactone (Aldactone) 50 MG tablet [id number] Take 1 tablet (50 mg) by mouth [...] even hurts -follows with Palliative care at [facility], prescribed Oxycodone and was recently increased -tremors [...] triceps, wrist extensors, wrist extensors, wrist flexor, radiology aide strength 5/5. LUE Strength deltoid, biceps, triceps, wrist extensors, wrist extensors, wrist flexor, radiology aide strength 5/5. RLE Strength illopsoas, quadriceps, tibialis [...] all orders for this visit: Multiple sclerosis (CMS/HCC) Neurogenic bladder History of RRMS which has [...] or worsening symptoms documented in this encounter [facility] 08-30-2024 History of Presen t illness Narrative Patient ID: Harish Mckenna is a 54 y.o. male who presents for: Urinary Incontinence This is a wnmq-lu-nwjf visit. Patient complains of urinary incontinence. This [...] if needed for opioid reversal. 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 I certify that I had a iynq-sa-jstl encounter with this patient at [facility] office visit. Due to this medical condition the patient requires DME. I certify that based on my findings The DME ordered is medically necessary for this patient. This has been discussed with the patient and/or their physician representative and mutually agreed upon. 2. Post-void [...] of weight on. documented in this encounter [facility] 08-10-2024 History of Presen t illness Narrative Images from the original note were not included. Patient ID: Harish Mckenna is a 54 y.o. male who presents for: This note is in error. Harish was unable to connect to the telemedicine visit. Due to technical difficulties the visit can not be deleted out of the system. documented in this encounter [facility] 07-21-2024 Telephone encount er Note I called the patient and he is still taking the Trileptal 1 po at bedtime. [facility] 07-21-2024 Miscellaneous Notes Formattin g of [...] if symptoms worsen. documented in this encounter [facility] 07-21-2024 Telephone encount er Note Please advise on Primidone Rx before sending. The last office visit just mentions 2 po at bedtime but the last refill sent is 1 po qam, 2 po at bedtime. Also his last office visit said to stop Trileptal and to resume if symptoms worsen. [facility] 07-11-2024 History of Presen t illness [...] exercise intolerance (with almost all activities). GERD Paitent complains of heartburn. 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 Nebulizers (Compressor/Nebulizer[place] [facility] Use 4 times per day regularly and [...] if any problems occur. (Utilizing the original guidelines or the 2020 office/outpatient code guidelines [...] evaluation and management. documented in this encounter [facility] 06-24-2024 Telephone encount er Note RX sent [facility] 06-24-2024 Miscellaneous Notes Formattin g of this note might be different from the original. RX sent documented in this encounter [facility] 06-22-2024 Telephone encount er Note PATIENT CALLS ASKING FOR ANOTHER REFILL OF VALIUM FOR HIS MRI FOR TOMORROW. HIS MRI IS AT 2:30 PM ON 06/23/2024 BUT HAS TO LEAVE BY 2:00... ARE YOU ABLE TO SEND THIS IN FOR HIM? CB # [phone] [facility] 06-22-2024 Miscellaneous Notes Formattin g of this note might be different from the original. PATIENT CALLS ASKING FOR ANOTHER REFILL OF VALIUM FOR HIS MRI FOR TOMORROW. HIS MRI IS AT 2:30 PM ON 06/23/2024 BUT HAS TO LEAVE BY 2:00... ARE YOU ABLE TO SEND THIS IN FOR HIM? # [phone] documented in this encounter [facility] 05-16-2024 History of Presen t illness Narrative Pt lm, requests rx for Seroquel documented in this encounter [facility] 04-15-2024 History of Presen t illness Narrative SW spoke to pt, needs rx for Spironolactone. documented in this encounter [facility] 04-04-2024 History of Presen t illness [...] exercise intolerance (with almost all activities). GERD Paitent complains of heartburn. This has been associated [...] if any problems occur. (Utilizing the original guidelines or the 2020 office/outpatient code guidelines [...] on healthy diet. documented in this encounter [facility] 03-23-2024 Telephone encount er Note Pharmacy requesting refills of primidone and lyrica. Pt last seen 07/09/2023. No appt scheduled. Would you like to fill medication. Please advise. [facility] 03-23-2024 Miscellaneous Notes Formattin g of this note might be different from the original. Pharmacy requesting refills of primidone and lyrica. Pt last seen 07/09/2023. No appt scheduled. Would you like to fill medication. Please advise. documented in this encounter [facility] 08-21-2023 Evaluation note Encounter Date Diagnosis Assessment Notes Aug, Chronic pain (ICD-10 - G89.29) OARRS reviewed, consistent with Rx. MME 60 mg/day [facility] Other 01-10-2024 Evaluation note* Encounter Date Diagnosis Assessment Notes Treatment Notes Treatment Clinical Notes Jul, Chronic pain (ICD-10 - G89.29) OARRS reviewed, consistent with Rx. Also has benzo prescribed by [facility] and pregabalin by neurology [facility] Other 12-13-2023 Evaluation note* Encounter Date Diagnosis Assessment Notes Treatment Notes Treatment Clinical Notes Jun, Chronic pain (ICD-10 - G89.29) [facility] Other 11-16-2023 Evaluation note* Encounter Date Diagnosis Assessment Notes Treatment Notes Treatment Clinical Notes May, Chronic pain (ICD-10 - G89.29) OARRS reviewed, consistent with Rx [facility] Other 11-07-2023 Evaluation note* Encounter Date Diagnosis [...] at bedtime instead of using PRN only [facility] Other 10-10-2023 Evaluation note* Encounter Date Diagnosis Assessment Notes Treatment Notes Treatment Clinical Notes Apr, Chronic pain (ICD-10 - G89.29) OARRS reviewed, consistent with Rx. Harish reports some relief with oxycodone 10 mg tabs, and is using med 3-4x/daily. Continue same without change. Apr, Constipation (ICD-10 - K59.00) Improved elimination with daily use of senna [facility] Other 09-26-2023 Evaluation note* Encounter Date Diagnosis [...] reported some lose stools after using routinely [facility] Other 09-20-2023 Evaluation note* Encounter Date Diagnosis Assessment Notes Treatment Notes Treatment Clinical Notes Mar, Chronic pain (ICD-10 - G89.29) OARRS reviewed, consistent with recent Rx. Increasing frequency of oxycodone to q6h PRN to improve pain control. Mar, Constipation (ICD-10 - K59.00) Harish is using Miralax daily but remains constipated, will add stimulant laxative [facility] Other 09-13-2023 Evaluation note* Encounter Date Diagnosis [...] of Constipation hand out provided to patient [facility] Other 04-06-2023 NoteCONSULTATION CONSULTATION DATE: 10/16/2022 TO: [...] 25 mg daily, Lyrica 200 mg t.i.d., [place] 7.5 mg b.i.d. He currently uses medical [...] THC if we are to continue with [place]. However, at this point, I do not [...] our patients to inform us about any ymho-qoe-sclefts medications or herbal remedies/nutritional supplements/alternative remedies. 2. [...] their primary care provider.[id number] Note CONSULTATION CONSULTATION DATE: 06/26/2022 HISTORY OF [...] Lyrica 200 mg t.i.d. per his neurologist, [place] 7.5/325 b.i.d., Cymbalta, baclofen and Ocrevus. Patient's [...] medication changes today. He was increased to [place] 7.5/325 at his last visit, and the patient feels it is somewhat helpful. We will continue to medically manage him only. Patient will be seen in the clinic in three months' time unless otherwise indicated.[facility] [id number] NoteCONSULTATION CONSULTATION DATE: 03/13/2022 HISTORY OF PRESENT ILLNESS: This is 51-year-old gentleman, well known to the [facility], returning for a three month follow up. This gentleman has history of MS, chronic pain syndrome and diffuse neuropathic pain, which is chronically medically managed with a medication regimen. Current medications include Mobic 15 mg daily, Lyrica 200 mg t.i.d., [place] 5/325 t.i.d., baclofen, Trileptal and amitriptyline. Patient recently suffered a family loss and reportedly has lost about 12 pounds in weight. He does ambulate with a cane and is stable with that. He is requesting today that we change his [place] from t.i.d. to 7.5 b.i.d. as he [...] pain. PLAN: We will check from his [place] 5/325 t.i.d. to 7.5/325 b.i.d. We will maintain his other medications with no dose or frequency change. He will be given a U-Tox in the clinic today. I did discuss vitamin importance as well as supplementing his protein intake with Boost supplements. We will see the patient in three months' time, unless otherwise indicated. Patient is in agreement to this.[facility] [id number] Hospital Discharge instructions Patient Education 12/24/2021 10:47:00 [...] including vitamins, herbs, eye drops, creams, and mzzd-rup-dmndlul medicines. This also includes: ?Medicines to assist [...] 08/01/2005 Document Revised: 06/11/2018 Document Reviewed: 04/05/2018 [employer] Patient Education 2020 [employer]. Follow Up Care 12/05/2021 14:04:21 With:Star Manley MD, Gustavo Orlando URO Address: [facility] [address] [place] [address]- When:Within 6 Month(s) Comments:w/ PVR [facility] 05-26-2022 Hospital Discharge instructions Patient Education 12/05/2021 13:20:29 [...] Graves Address: [facility] [address] [place] [address]- Business (1) When:2 to 4 weeks Comments:PVR [facility] Future Appointments Appointment Date:12/24/2021 09:30:00 AM Scheduled Provider:Gustavo Graves Jr., MD Location:[facility] Future Appointments Appointment Date:07/01/2022 10:45:00 AM Scheduled Provider:Gustavo Graves Jr., MD Location:[facility] Appointment Type:URO Office Visit [facility] evaluation noteNo [employer] Other evaluation note* Diagnosis Onset Date Resolution Status Chronic pain acute Constipation acute prison (current) use of opiate analgesic acute Multiple sclerosis [facility] Work Phone: evaluation note* Diagnosis Onset Date Resolution Status Chronic pain acute Constipation acute Multiple sclerosis [facility] Work Phone: Evaluation note* Diagnosis Multiple [...] pain syndrome acute Constipation acute Multiple sclerosis [facility] Work Phone: Evaluation note* Diagnosis Insomnia, [...] [facility] noteNo assessment information [facility]Bl[facility]: [facility]* Diagnosis Urinary [...] bipolar Medical History GERD Surgical History cholecystectomy [facility] Other Hospital course Narrative No data available for this section [facility] No data available for this section [facility] Summary Purpose Family History No Family History [...] f/u Reason for Visit Chronic pain Constipation prison (current) use of opiate analgesic Multiple sclerosis [...] a f/u via phone uar 2024 4:06pm Patient here for a f/u November 07, 2024 3:49pm Additional Source Comments (unrecognized sect ion and content) No Status Records FoundNo Status Records FoundNo Status Records FoundNo Status Records FoundNo Status Records FoundNo Status Records Found INFORMATION SOURCE (unrecogn ized section and content) DATE CREATED AUTHOR 09/18/2018 [facility] DATE CREATED AUTHOR AUTHOR'S ORGANIZ ATION 01/25/2021 [facility] DATE CREATED AUTHOR AUTHOR'S ORGANIZ ATION 11/18/2022 [facility] DATE CREATED AUTHOR AUTHOR'S ORGANIZ ATION 09/16/2024 [facility] DATE CREATED AUTHOR AUTHOR'S ORGANIZ ATION 11/02/2024 [facility] Specialists [facility] DATE CREATED AUTHOR AUTHOR'S ORGANIZ ATION 11/24/2024 [facility] Care Team (unrecognized sect ion and content) [...] September 17, 2023 End: September 17, 2023 Rotary Engine Assembler Relationship Specialty Start Date End Date Bubba Ghotra MD [address] [place] [address] (Fax) PCP - General Family Medicine 11/27/22 Bubba Ghotra MD [address] [place] [address] (Fax) PCP - ACO Reach 12/04/22 Elaina Burgess PA [address] [place] [address] Physician Crystal Cutter Neurology 12/02/23 Kenna Lockett, GRAHAM Registered Nurse Family Medicine 12/02/23 Maty Win MD [address] [place] [address] Referring Physician Behavioral Health 12/02/23 Team Status: Inactive Member Role Status Dates Bubba Ghotra MD Primary Care Provider Active Start: April 14, 2024 End: April 14, 2024 Mahnaz Roth APRN Attending Provider Active Start: April 14, 2024 End: April 14, 2024 Rotary Engine Assembler Relationship Specialty Start Date End Date Bubba Ghotra MD [address] [place] [address] (Fax) PCP - General Family Medicine 11/27/22 Bubba Ghotra MD [address] [place] [address] (Fax) PCP - ACO Reach 12/04/22 Eliana Burgess PA [address] [place] [address] Physician Crystal Cutter Neurology 12/02/23 Kenna Lockett, RN Registered Nurse Family Medicine 12/02/23 Maty Win MD [address] [place] [address] Referring Physician Behavioral Health 12/02/23 Rotary Engine Assembler Relationship Specialty Start Date End Date Bubba Ghotra MD [address] [place] [address] (Fax) PCP - General Family Medicine 11/27/22 Bubba Ghotra MD [address] [place] [address] (Fax) PCP - ACO Reach 12/04/22 Elaina Burgess PA [address] [place] [address] Physician Crystal Cutter Neurology 12/02/23 Kenna Lockett, RN Registered Nurse Family Medicine 12/02/23 Maty Win MD [address] [place] [address] Referring Physician Behavioral Health 12/02/23 Team Status: Inactive Member Role Status Dates Bubba Ghotra MD Primary Care Provider Active Start: May 10, 2024 End: May 10, 2024 Mahnaz Roth APRN Attending Provider Active Start: May 10, 2024 End: May 10, 2024 Rotary Engine Assembler Relationship Specialty Start Date End Date Bubba Ghotra MD [address] [place] [phone] (Fax) PCP - General Family Medicine 11/27/22 Bubba Ghotra MD [address] [place] [phone] (Fax) PCP - ACO Reach 12/04/22 Elaina Burgess PA [address] [place] [address] Physician Crystal Cutter Neurology 12/02/23 Kenna Lockett, GRAHAM Registered Nurse Family Medicine 12/02/23 Maty Win MD [address] [place] [address] Referring Physician Behavioral Health 12/02/23 Rotary Engine Assembler Relationship Specialty Start Date End Date Bubba Ghotra MD [address] [place] [phone] (Fax) PCP - General Family Medicine 11/27/22 Bubba Ghotra MD [address] [place] [phone] (Fax) PCP - ACO Reach 12/04/22 Elaina Burgess PA [address] [place] [address] Physician Crystal Cutter Neurology 12/02/23 Kenna Lockett RN Registered Nurse Family Medicine 12/02/23 Maty Win MD [address] [place] [address] Referring Physician Behavioral Health 12/02/23 Rotary Engine Assembler Relationship Specialty Start Date End Date Bubba Ghotra MD [address] [address] (Fax) PCP - General Family Medicine 11/27/22 Bubba Ghotra MD [address] [address] (Fax) PCP - ACO Reach 12/04/22 Elaina Burgess PA [address] [place] [address] Physician Crystal Cutter Neurology 12/02/23 Kenna Lockett RN Registered Nurse Family Medicine 12/02/23 Maty Win MD [address] [place] [address] Referring Physician Behavioral Health 12/02/23 Rotary Engine Assembler Relationship Specialty Start Date End Date Bubba Ghotra MD [address] [place] [address] (Fax) PCP - General Family Medicine 11/27/22 Bubba Ghotra MD [address] [address] (Fax) PCP - ACO Reach 12/04/22 Elaina Burgess PA [address] [place] [address] Physician Crystal Cutter Neurology 12/02/23 Kenna Lockett RN Registered Nurse Family Medicine 12/02/23 Maty Win MD [address] [place] [address] Referring Physician Behavioral Health 12/02/23 Rotary Engine Assembler Relationship Specialty Start Date End Date Bubba Ghotra MD [address] [place] [address] (Fax) PCP - General Family Medicine 11/27/22 Bubba Ghotra MD [address] [place] [address] (Fax) PCP - ACO Reach 12/04/22 Elaina Burgess PA [address] [place] [address] Physician Crystal Cutter Neurology 12/02/23 Kenna Lockett RN Registered Nurse Family Medicine 12/02/23 Maty Win MD [address] [place] [address] Referring Physician Behavioral Health 12/02/23 Rotary Engine Assembler Relationship Specialty Start Date End Date Bubba Ghotra MD [address] [place] [address] (Fax) PCP - General Family Medicine 11/27/22 Bubba Ghotra MD [address] [place] [address] (Fax) PCP - ACO Reach 12/04/22 Elaina Burgess PA [address] [place] [address] Physician Crystal Cutter Neurology 12/02/23 Kenna Lockett RN Registered Nurse Family Medicine 12/02/23 Maty Win MD [address] [place] [address] Referring Physician Behavioral Health 12/02/23 Rotary Engine Assembler Relationship Specialty Start Date End Date Bubba Ghotra MD [address] [place] [address] (Fax) PCP - General Family Medicine 11/27/22 Bubba Ghotra MD [address] [place] [address] (Fax) PCP - ACO Reach 12/04/22 Elaina Burgess PA [address] [place] [address] Physician Crystal Cutter Neurology 12/02/23 Kenna Lockett, GRAHAM Registered Nurse Family Medicine 12/02/23 Maty Win MD [address] [place] [address] Referring Physician Behavioral Health 12/02/23 Rotary Engine Assembler Relationship Specialty Start Date End Date Bubba Ghotra MD [address] [place] [address] (Fax) PCP - General Family Medicine 11/27/22 Bubba Ghotra MD [address] [place] [address] (Fax) PCP - ACO Reach 12/04/22 Elaina Burgess PA [address] [place] [address] Physician Crystal Cutter Neurology 12/02/23 Kenna Lockett, RN Registered Nurse Family Medicine 12/02/23 Maty Win MD [address] [place] [address] Referring Physician Behavioral Health 12/02/23 Rotary Engine Assembler Relationship Specialty Start Date End Date Bubba Ghotra MD [address] [facility] [place] [address] (Fax) PCP - General Family Medicine 11/27/22 Bubba Ghotra MD [address] [facility] [place] [address] (Fax) PCP - ACO Reach 12/04/22 Elaina Burgess PA [address] [place] [address] Physician Crystal Cutter Neurology 12/02/23 Kenna Lockett, RN Registered Nurse Family Medicine 12/02/23 Maty Win MD [address] [place] [address] Referring Physician Behavioral Health 12/02/23 Rotary Engine Assembler Relationship Specialty Start Date End Date Bubba Ghotra MD [address] [facility] [place] [address] (Fax) PCP - General Family Medicine 11/27/22 Bubba Ghotra MD [address] [facility] [place] [address] (Fax) PCP - ACO Reach 12/04/22 Elaina Burgess PA [address] [place] [address] Physician Crystal Cutter Neurology 12/02/23 Kenna Lockett, GRAHAM Registered Nurse Family Medicine 12/02/23 Maty Win MD [address] [place] [address] Referring Physician Behavioral Health 12/02/23 Rotary Engine Assembler Relationship Specialty Start Date End Date Bubba Ghotra MD [address] [place] [address] (Fax) PCP - General Family Medicine 11/27/22 Bubba Ghotra MD [address] [place] [address] (Fax) PCP - ACO Reach 12/04/22 Elaina Burgess PA [address] [place] [address] Physician Crystal Cutter Neurology 12/02/23 Kenna Lockett, GRAHAM Registered Nurse Family Medicine 12/02/23 Maty Win MD [address] [place] [address] Referring Physician Behavioral Health 12/02/23 Rotary Engine Assembler Relationship Specialty Start Date End Date Bubba Ghotra MD [address] [place] [address] (Fax) PCP - General Family Medicine 11/27/22 Bubba Ghotra MD [address] [place] [address] (Fax) PCP - ACO Reach 12/04/22 Elaina Burgess PA [address] [place] [address] Physician Crystal Cutter Neurology 12/02/23 Kenna Lockett, RN Registered Nurse Family Medicine 12/02/23 Maty Win MD [address] [place] [address] Referring Physician Behavioral Health 12/02/23 Rotary Engine Assembler Relationship Specialty Start Date End Date Bubba Ghotra MD [address] [place] [address] (Fax) PCP - General Family Medicine 11/27/22 Bubba Ghotra MD [address] [place] [address] (Fax) PCP - ACO Reach 12/04/22 Elaina Burgess PA [address] [place] [address] Physician Crystal Cutter Neurology 12/02/23 Kenna Lockett, RN Registered Nurse Family Medicine 12/02/23 Maty Win MD [address] [place] [address] Referring Physician Behavioral Health 12/02/23 Rotary Engine Assembler Relationship Specialty Start Date End Date Bubba Ghotra MD [address] [place] [address] (Fax) PCP - General Family Medicine 11/27/22 Bubba Ghotra MD [address] [place] [address] (Fax) PCP - ACO Reach 12/04/22 Elaina Burgess PA [address] [place] [address] Physician Crystal Cutter Neurology 12/02/23 Kenna Lockett, RN Registered Nurse Family Medicine 12/02/23 Maty Win MD [address] [place] [address] Referring Physician Behavioral Health 12/02/23 Team Status: Inactive Member Role Status Dates Bubba Ghotra MD Primary Care Provider Active Start: August 23, 2024 End: August 23, 2024 Mahnaz Roth APRN Attending Provider Active Start: August 23, 2024 End: August 23, 2024 Rotary Engine Assembler Relationship Specialty Start Date End Date Bubba Ghotra MD [address] [place] [address] PCP - General Family Medicine 11/27/22 Bubba Ghotra MD [address] [place] [address] PCP - ACO Reach 08/26/24 Elaina Burgess PA [address] [place] [id number] Physician Crystal Cutter Neurology 12/02/23 Kenna Lockett, RN Registered Nurse Family Medicine 12/02/23 Maty Win MD [address] [place] [address] Referring Physician Behavioral Health 12/02/23 Rotary Engine Assembler Relationship Specialty Start Date End Date Bubba Ghotra MD [address] [place] [address] (Fax) PCP - General Family Medicine 11/27/22 Bubba Ghotra MD [address] [place] [address] (Fax) PCP - ACO Reach 08/26/24 Elaina Burgess PA [address] [place] [address] Physician Crystal Cutter Neurology 12/02/23 Kenna Lockett, GRAHAM Registered Nurse Family Medicine 12/02/23 Maty Win MD Referring Physician Behavioral Health 12/02/23 Rotary Engine Assembler Relationship Specialty Start Date End Date Bubba Ghotra MD [address] [place] [address] (Fax) PCP - General Family Medicine 11/27/22 Elaina Burgess PA [address] [place] [address] Physician Crystal Cutter Neurology 12/02/23 Kenna Lockett RN Registered Nurse Family Medicine 12/02/23 Maty Win MD Referring Physician Behavioral Health 12/02/23 Rotary Engine Assembler Relationship Specialty Start Date End Date Bubba Ghotra MD [address] [place] [address] (Fax) PCP - General Family Medicine 11/27/22 Elaina Burgess PA [address] [place] [address] Physician Crystal Cutter Neurology 12/02/23 Kenna Lockett RN Registered Nurse Family Medicine 12/02/23 Maty Win MD Referring Physician Behavioral Health 12/02/23 Rotary Engine Assembler Relationship Specialty Start Date End Date Bubba Ghotra MD [address] [place] [address] PCP - General Family Medicine 11/27/22 Elaina Burgess PA [address] [place] [address] Physician Crystal Cutter Neurology 12/02/23 Kenna Lockett RN Registered Nurse Family Medicine 12/02/23 Maty Win MD Referring Physician Behavioral Health 12/02/23 Rotary Engine Assembler Relationship Specialty Start Date End Date Bubba Ghotra MD [address] [place] [address] [address] (Fax) PCP - General Family Medicine 11/27/22 Elaina Burgess PA [address] [place] [address] Physician Crystal Cutter Neurology 12/02/23 Kenna Lockett RN Registered Nurse [...] BE BASED ON THE PRIMARY CLINICAL RECORDS. [employer] provides no warranty or guarantee of the accuracy or completeness of information in this document.
[2024-11-25 14:52] LABS: Prostate Specific Antigen Dx 1.52 ng/mL (<=4.00)
== END 2024-11-25 13:50 | disposition home or self-care (01) ==
LOC: LAB 13:49
PROVIDERS: PCP Family Medicine; Visit Provider Physician Assistant
DX: R97.20 Elevated prostate specific antigen [PSA] (principal)
CPT/HCPCS: 36415; 84153

== ENCOUNTER 2025-01-10 17:02 | Outpatient (OUT) | payer MEDICARE, MEDICAID, SELFPAY ==
--- OUTSIDE RECORDS SUMMARY | 2025-01-10 17:07 | XMS_ITS | Encounter Summary ---
Author Organization [facility] Address [address] [place] [address] Care Team Providers Care Firestopper Technician Name Role Phone Bubba Cruz MD Primary Care Provider [phone] Bubba Cruz MD Unavailable [phone] Elaina Burgess Unavailable Kenna Lockett RN Unavailable [phone] Stan Win MD Unavailable [phone] Bubba Cruz MD Unavailable [phone] Encounter Details Date Type Department Care Team (Late st Contact Info) Description 02/12/2023 Orders Only [facility] [address] [facility] [place] [address] Bubba Cruz MD [address] [facility] [address] [place] [address] (Fax) Primary hypertension (Primary Dx); Insomnia, unspecified type Social History Tobacco Use Types Packs/Day Years Used Date Smoking Tobacco: Every Day Cigarettes 1.5 15 Smokeless Tobacco: Never Comments:21-30 cigs/day Alcohol Use Standard Drinks/Week Comments Never 0 (1 standard drink = 0.6 oz pure alcohol) Caffeine intake : >4 cups per day Humiliation, Afraid, Rape, and Kick questionnair e Answer Date Recorded Fear of Current or Ex-Partner Not on file Emotionally Abused Not on file 12/01/2022 Within the last year, have y ou been kicked, hit, slapped, or otherwise physically hurt by your partner or ex-partner? No 12/01/2022 Within the last year, have y ou been raped or forced to have any kind of sexual activity by your partner or ex-partner? No 12/01/2022 Social Connection and Isolat ion Panel [NHANES] Answer Date Recorded In a typical week, how many times do you talk on the phone with family, friends, or neighbors? More than three times a week 01/23/2023 How often do you get togethe r with friends or relatives? More than three times a week 01/23/2023 How often do you attend chur or jehovah's witness services? Never 01/23/2023 Do you belong to any clubs o r organizations such as sikhism groups, unions, fraternal or athletic groups, or school groups? No 01/23/2023 Attends Club or Organization Meetings Not on eduard e 01/23/2023 Are you , , di vorced, , never , or living with a partner? 01/23/2023 AUDIT-C Answer Date Recorded Q1: How often do you have a drink containing alcohol? Never 12/01/2022 Q2: How many drinks containi ng alcohol do you have on a typical day when you are drinking? Patient does not drink Q3: How often do you have si x or more drinks on one occasion? Never 12/01/2022 Overall Financial Resource Strain (CARDIA) Answe r Date Recorded How hard is it for you to pa y for the very basics like food, housing, medical care, and heating? Very hard 12/01/2022 PHQ-2 Answer Date Recorded Patient Health Questionnaire-2 Score 4 12/01/2022 Exercise Vital Sign Answer Date Recorde d On average, how many days pe r week do you engage in moderate to strenuous exercise (like a brisk walk)? 0 days 01/23/2023 On average, how many minutes do you engage in exercise at this level? 0 min 01/23/2023 Hunger Vital Sign Answer Date Recorded Within the past 12 months, y ou worried that your food would run out before you got the money to buy more. Never true 12/02/19 23 Within the past 12 months, t he food you bought just didn't last and you didn't have money to get more. Often true 12/01/2022 PRAPARE - Transportation Answer Date Re corded In the past 12 months, has l ack of transportation kept you from medical appointments or from getting medications? Yes 11/11 In the past 12 months, has l ack of transportation kept you from meetings, work, or from getting things needed for daily living? Yes 12/01/2022 Housing Stability Vital Sign Answer Jose e Recorded Unable to Pay for Housing in the Last Year Not o n file 01/23/2023 In the last 12 months, how many places have you lived? 1 01/23/2023 Unstable Housing in the Last Year Not on file 01/23/2023 Education Answer Date Recorded What is the highest level of school you have completed or the highest degree you have received? High school graduate 01/26/2023 Sex and Gender Information Value Date Recorded Sex Assigned at Not on file Legal Sex Male 7:09 PM EDT Gender Identity Not on file Sexual Orientation Not on file Occupation Industry Job Start Date Job End Date Unemployed Not on file Not on file Not on file COVID-19 Exposure Response Date Recorded In the last 10 days, have yo u been in contact with someone who was confirmed or suspected to have Coronavirus/COVID-19? No / Unsure 02/09/2023 3:01 PM EDT documented as of this encounter Plan of Treatment Upcoming Encounters Date Type Department Care Team (Late st Contact Info) Description 01/11/2025 11:00 AM EDT Office Visit [facility] [address] [facility] [address] [place] [address] Dolly Bowen, LIQUOR RUNNER [address] [place] [address] 01/23/2025 2:00 PM EDT Office Visit [facility] [address] [facility] 100 [place] [address] Bubba Cruz MD 112 [facility] 100 [place] [address] (Fax) documented as of this encounter Visit Diagnoses Diagnosis Primary hypertension- Primary Unspecified essential hypertension Insomnia, unspecified type Preoperative evaluation to rule out surgical contraindication Post-void dribbling Urinary incontinence without sensory awareness Incontinence without sensory awareness Relapsing remitting multiple sclerosis (HCC) Multiple sclerosis Polypharmacy Issue of repeat prescriptions Marijuana smoker Cigarette smoker Tobacco use disorder documented in this encounter Care Teams Firestopper Technician Relationship Specialty Start Date End Date Bubba Cruz MD [address] [place] [address] (Fax) PCP - General Family Medicine 11/27/22 Bubba Cruz MD [address] [place] [address] PCP - ACO Reach 12/04/22 08/18/24 Bubba Cruz MD [address] [place] [address] PCP - ACO Reach 08/26/24 10/13/24 Elaina Burgess PA [address] [place] [id number] Physician Press Technician Neurology 12/02/23 Kenna Lockett, GRAHAM [address] [place] [address] Registered Nurse Family Medicine 12/02/23 Stan Win MD [address] [place] [address] Referring Physician Behavioral Health 12/02/23 documented as of this encounter
--- OUTSIDE RECORDS SUMMARY | 2025-01-10 17:07 | XMS_ITS | Clinical Summary ---
Author Organization [facility] Address [address] [place] [address] Care Team Providers Care Manufacturing Engineer Machining Name Role Phone Unavailable Primary Care Provider Unavailabl e Social History Tobacco Use Types Packs/Day Years Used Date Smoking Tobacco: Never Assessed Sex and Gender Information Value Date Recorded Sex Assigned at Not on file Legal Sex Male 7:00 PM EST Gender Identity Not on file Sexual Orientation Not on file Plan of Treatment Not on file Insurance MEDICARE
--- OUTSIDE RECORDS SUMMARY | 2025-01-10 17:07 | XMS_ITS | Encounter Summary ---
Author Organization [facility] Address [address] [place] [address] Care Team Providers Care Territory Representative Name Role Phone Bubba Cruz MD Primary Care Provider [phone] Bubba Cruz MD Unavailable [phone] Elaina Burgess Unavailable Kenna Lockett RN Unavailable [phone] Stan Win MD Unavailable [phone] Bubba Cruz MD Unavailable [phone] Encounter Details Date Type Department Care Team (Late st Contact Info) Description 08/27/2023 Abstract [facility] [address] [place] [address] Antony Pedersen MD [address] [place] [address] Social History Tobacco Use Types Packs/Day Years [...] How often do you attend chur or episcopal services? Never 01/23/2023 Do you belong to any clubs o r organizations such as congregation groups, unions, fraternal or athletic groups, or [...] file Not on file Not on file documented as of this encounter Plan of Treatment Upcoming Encounters Date Type Department Care Team (Late st Contact Info) Description 01/11/2025 11:00 AM EDT Office Visit [facility] [address] [facility] [address] [place] [address] Dolly Bowen, SERVICENOW ADMINISTRATOR [address] [place] [address] 01/23/2025 2:00 PM EDT Office Visit [facility] [address] [place] [address] Bubba Cruz MD [address] [place] [address] documented as of this encounter Visit Diagnoses Not on filedocumented in this encounter Care Teams Territory Representative Relationship Specialty Start Date End Date Bubba Cruz MD [address] [place] [address] (Fax) PCP - General Family Medicine 11/27/22 Bubba Cruz MD [address] [place] [address] PCP - ACO Reach 12/04/22 08/18/24 Bubba Cruz MD [address] [place] [address] PCP - ACO Reach 08/26/24 10/13/24 Elaina Burgess PA [address] [place] [id number] Physician Marketing Research Analyst Neurology 12/02/23 Kenna Lockett, GRAHAM [address] [place] [address] Registered Nurse Family Medicine 12/02/23 Stan Win MD [address] [place] [address] Referring Physician Behavioral Health 12/02/23 documented as of this encounter
--- OUTSIDE RECORDS SUMMARY | 2025-01-10 17:07 | XMS_ITS | Encounter Summary ---
Author Organization [facility] Address [address] [place] [address] Care Team Providers Care Outdoor Education Teacher Name Role Phone Bubba Cruz MD Primary Care Provider [phone] Bubba Cruz MD Unavailable [phone] Elaina Burgess Unavailable Kenna Lockett RN Unavailable [phone] Stan Win MD Unavailable [phone] Bubba Cruz MD Unavailable [phone] Encounter Details Date Type Department Care Team (Late st Contact Info) Description 07/16/2023 Abstract [facility] [address] [place] [address] Bubba Cruz MD 112 [facility] 100 [place] [address] (Fax) Social History Tobacco Use Types Packs/Day Years [...] How often do you attend chur or church services? Never 01/23/2023 Do you belong to any clubs o r organizations such as synagogue groups, unions, fraternal or athletic groups, or [...] [facility] [address] [facility] [address] [place] [address] Dolly Bowen, NOODLE CATALYST MAKER [address] [place] [address] 01/23/2025 2:00 PM EDT Office Visit [facility] [address] [place] [address] Bubba Cruz MD [address] [place] [address] documented as of this encounter Visit Diagnoses Not on filedocumented in this encounter Care Teams Outdoor Education Teacher Relationship Specialty Start Date End Date Bubba Cruz MD [address] [place] [address] PCP - General Family Medicine 11/27/22 Bubba Cruz MD [address] [place] [address] PCP - ACO Reach 12/04/22 08/18/24 Bubba Cruz MD [address] [place] [address] PCP - ACO Reach 08/26/24 10/13/24 Elaina Burgess PA [address] [place] [phone] Physician Ict Support Engineer Neurology 12/02/23 Kenna Lockett, GRAHAM [address] [place] [address] Registered Nurse Family Medicine 12/02/23 Stan Win MD [address] [place] [address] Referring Physician Behavioral Health 12/02/23 documented as of this encounter
--- OUTSIDE RECORDS SUMMARY | 2025-01-10 17:07 | XMS_ITS | Encounter Summary ---
Author Organization [facility] Address [address] [place] [address] Care Team Providers Care Business Excellence Manager Name Role Phone Bubba Cruz MD Primary Care Provider Bubba Cruz MD Unavailable [phone] Elaina Burgess Unavailable Kenna Lockett RN Unavailable [phone] Stan Win MD Unavailable [phone] Bubba Cruz MD Unavailable [phone] Encounter Details Date Type Department Care Team (Late st Contact Info) Description 07/29/2023 Abstract [facility] [address] [place] [address] Bubba Cruz MD 112 [facility] 100 [place] [address] (Fax) Social History Tobacco Use [...] How often do you attend chur or orthodoxy services? Never 01/23/2023 Do you belong to any clubs o r organizations such as yarsanism groups, unions, fraternal or athletic groups, or [...] [facility] [address] [facility] [address] [place] [address] Dolly Bowen, CERTIFIED PHYSICAL THERAPIST ASSISTANT [address] [place] [address] 01/23/2025 2:00 PM EDT Office Visit [facility] [address] [place] [address] Bubba Cruz MD [address] [place] [address] documented as of this encounter Visit Diagnoses Not on filedocumented in this encounter Care Teams Business Excellence Manager Relationship Specialty Start Date End Date Bubba Cruz MD [address] [place] [address] PCP - General Family Medicine 11/27/22 Bubba Cruz MD [address] [place] [address] PCP - ACO Reach 12/04/22 08/18/24 Bubba Cruz MD [address] [place] [address] PCP - ACO Reach 08/26/24 10/13/24 Elaina Burgess PA [address] [place] [phone] Physician Mechanical Assembler Neurology 12/02/23 Kenna Lokcett, GRAHAM [address] [place] [address] Registered Nurse Family Medicine 12/02/23 Stan Win MD [address] [place] [address] Referring Physician Behavioral Health 12/02/23 documented as of this encounter
--- OUTSIDE RECORDS SUMMARY | 2025-01-10 17:07 | XMS_ITS | Encounter Summary ---
Author Organization [facility] Address [address] [place] [address] Care Team Providers Care Human Resources Operations Director Name Role Phone Bubba Cruz MD Primary Care Provider [phone] Bubba Cruz MD Unavailable [phone] Elaina Burgess Unavailable Kenna Lockett RN Unavailable [phone] Stan Win MD Unavailable [phone] Bubba Cruz MD Unavailable [phone] Encounter Details Date Type Department Care Team (Late st Contact Info) Description 07/29/2023 Abstract [facility] [address] [place] [address] Bubba Cruz MD 112 [facility] 100 [place] [address] (Fax) Social History Tobacco Use [...] How often do you attend chur or anglican services? Never 01/23/2023 Do you belong to any clubs o r organizations such as mandaeism groups, unions, fraternal or athletic groups, or [...] [facility] [address] [facility] [address] [place] [address] Dolly Bowen, WATER TREATMENT PLANT REPAIRER [address] [place] [address] 01/23/2025 2:00 PM EDT Office Visit [facility] [address] [place] [address] Bubba Cruz MD [address] [place] [address] documented as of this encounter Visit Diagnoses Not on filedocumented in this encounter Care Teams Human Resources Operations Director Relationship Specialty Start Date End Date Bubba Cruz MD [address] [place] [address] PCP - General Family Medicine 11/27/22 Bubba Cruz MD [address] [place] [address] PCP - ACO Reach 12/04/22 08/18/24 Bubba Cruz MD [address] [place] [address] PCP - ACO Reach 08/26/24 10/13/24 Elaina Burgess PA [address] [place] [phone] Physician Museum Guide Neurology 12/02/23 Kenna Lockett, GRAHAM [address] [place] [address] Registered Nurse Family Medicine 12/02/23 Stan Win MD [address] [place] [address] Referring Physician Behavioral Health 12/02/23 documented as of this encounter
--- OUTSIDE RECORDS SUMMARY | 2025-01-10 17:07 | XMS_ITS | Encounter Summary ---
Author Organization [facility] Address [address] [place] [address] Care Team Providers Care Transportation Security Officer Name Role Phone Bubba Cruz MD Primary Care Provider [phone] Bubba Cruz MD Unavailable [phone] Elaina Burgess Unavailable Kenna Lockett RN Unavailable [phone] Stan Win MD Unavailable [phone] Bubba Cruz MD Unavailable [phone] Encounter Details Date Type Department Care Team (Late st Contact Info) Description 05/14/2023 Abstract [facility] [address] [place] [address] Elaina Burgess PA [address] [place], [place] [address] Social History Tobacco Use Types Packs/Day Years [...] How often do you attend chur or oriental orthodox services? Never 01/23/2023 Do you belong to any clubs o r organizations such as caodaism groups, unions, fraternal or athletic groups, or [...] [facility] [address] [facility] [address] [place] [address] Dolly Bowen, WAGON DRILLER [address] [place] [address] 01/23/2025 2:00 PM EDT Office Visit [facility] [address] [place] [address] Bubba Cruz MD [address] [place] [address] documented as of this encounter Visit Diagnoses Not on filedocumented in this encounter Care Teams Transportation Security Officer Relationship Specialty Start Date End Date Bubba Cruz MD [address] [place] [address] (Fax) PCP - General Family Medicine 11/27/22 Bubba Cruz MD [address] [place] [address] PCP - ACO Reach 12/04/22 08/18/24 Bubba Cruz MD [address] [place] [address] PCP - ACO Reach 08/26/24 10/13/24 Elaina Burgess PA [address] [place] [phone] Physician Animal Park Code Enforcement Officer Neurology 12/02/23 Kenna Lockett, GRAHAM [address] [place] [address] Registered Nurse Family Medicine 12/02/23 Stan Win MD [address] [place] [address] Referring Physician Behavioral Health 12/02/23 documented as of this encounter
--- OUTSIDE RECORDS SUMMARY | 2025-01-10 17:07 | XMS_ITS | Clinical Summary ---
Author Organization [facility] Address [address] [place] [address] Care Team Providers Care Digital Watch Assembler Name Role Phone Bubba Cruz MD Primary Care Provider + [phone] Elaina Burgess Unavailable Kenna Lockett RN Unavailable [phone] Stan Win MD Unavailable [phone] Allergies Active Allergy Reactions Criticality Noted Date Comments Venlafaxine 12/01/2022 Other Reaction(s): saw spots, and felt like hallucination Paroxetine Hcl Rash Low 07/22/2021 Other Reaction(s): rash Medications DULoxetine (Cymbalta) [address] capsule Take 2 capsules by mouth in the morning. Active meclizine (Antivert) 25 MG tablet Take 25 mg by mouth 3 (three) times a day as needed for nausea. Active naloxone (Narcan) 4 mg/0.1 mL nasal spray Administer 4 mg into affected nostril(s) if needed for opioid reversal. Active promethazine (Phenergan) 25 MG tablet Take 25 mg by mouth every 6 (six) hours if needed for nausea. Active Cannabinoids (medical cannabis) Take 1 each by mouth Daily as needed. Active senna (Senokot) 8.6 MG tabletIndications: Constipation Take 2 tablets by mouth 2 (two) times a day as needed for constipation 04/02/20 23 Active Ocrevus 300 MG/10ML solution Infuse into a venous catheter every 6 (six) months 02/27/20 23 Active clonazePAM (KlonoPIN) 1 MG tablet Take 1 mg by mouth in the morning and 1 mg before bedtime. 08/07/19 24 Active oxygen (O2) gas Inhale 2-3 L/min continuously via nasal canula 08/29/19 24 Active Nebulizers (Compressor/Nebuli zer) miscIndications:Ch ronic hypoxemic respiratory failure (HCC),Simple chronic bronchitis (HCC),Wheezing,Dasilva lobular emphysema (HCC) Use 4 times per day regularly and every 4 hours as needed for shortness of breath and wheezing as directed 1 each 09/15/19 24 Active oxygen (O2) gasIndications:Acu te hypoxemic respiratory failure (HCC) Inhale oxygen via portable oxygen concentrator and nasal canula setting of 3 To maintain pulse ox saturation of 92% 09/15/19 24 Active ARIPiprazole (Abilify) 5 MG tablet Take 5 mg by mouth Daily 03/04/20 24 Active albuterol (2.5 MG/3ML) 0.083% nebulizer solutionIndication s:Simple chronic bronchitis (HCC) Take 3 mL (2.5 mg) by nebulization every 6 (six) hours if needed for wheezing 360 mL 3 04/06/20 24 Active Docusate Sodium (DSS) 100 MG capsule Take 2 capsules by mouth Daily 02/10/20 24 Active spironolactone (Aldactone) 50 MG tabletIndications: Venous insufficiency Take 1 tablet (50 mg) by mouth Daily 90 tablet 1 07/11/20 24 Active pantoprazole (ProtoNix) 40 MG EC tabletIndications: Gastroesophageal reflux disease without esophagitis Take 1 tablet (40 mg) by mouth in the morning and 1 tablet (40 mg) before bedtime. 180 tablet 1 07/11/20 24 Active OXcarbazepine (Trileptal) 300 MG tabletIndications: Sensory disturbance Take 1 tablet (300 mg) by mouth at bedtime 30 tablet 2 07/21/19 25 Active ipratropium (Atrovent) 0.06 % nasal sprayIndications:R hinorrhea Administer 2 sprays into each nostril in the morning and 2 sprays before bedtime. 30 mL 4 08/24/19 25 026 Active ondansetron ODT (Zofran-ODT) 4 MG disintegrating tabletIndications: Nausea Take 1 tablet (4 mg) by mouth every 8 (eight) hours if needed for nausea 20 tablet 08/24/19 25 Active budesonide-formote rol (Symbicort) 160-4.5 MCG/ACT inhalerIndications :Simple chronic bronchitis (HCC) Inhale 2 puffs in the morning and 2 puffs before bedtime. 1 each 4 08/24/19 25 Active sodium chloride 0.9 % nebulizer solutionIndication s:Panlobular emphysema (HCC) Take 3 mL by nebulization every 4 (four) hours if needed for shortness of breath (and muus clearance) 600 mL 1 08/24/19 25 Active oxyCODONE (Roxicodone) 15 MG immediate release tablet Take 15 mg by mouth every 6 (six) hours if needed (pain) 08/23/19 25 Active sildenafil (Viagra) 100 MG tabletIndications: Vasculogenic erectile dysfunction, unspecified vasculogenic erectile dysfunction type Take 1 tablet (100 mg) by mouth Daily as needed for erectile dysfunction 10 tablet 3 09/28/19 25 Active pregabalin (Lyrica) 200 MG capsuleIndications :Cervical radiculopathy TAKE 1 CAPSULE (200 MG) BY MOUTH IN THE MORNING AND 1 CAPSULE (200 MG) IN THE EVENING AND 1 CAPSULE (200 MG) BEFORE BEDTIME. 90 capsule 2 10/19/19 25 025 Active baclofen (Lioresal) 20 MG tabletIndications: Muscle spasm TAKE 1 TABLET (20 MG) BY MOUTH IN THE MORNING AND 1 TABLET (20 MG) IN THE EVENING AND 1 TABLET (20 MG) BEFORE BEDTIME. 90 tablet 2 10/19/19 25 025 Active primidone (Mysoline) 50 MG tabletIndications: Tremor TAKE 2 TABLETS (100 MG) BY MOUTH AT BEDTIME 60 tablet 2 10/19/19 25 025 Active losartan (Cozaar) 100 MG tabletIndications: Primary hypertension Take 1 tablet (100 mg) by mouth Daily 90 tablet 1 10/21/19 25 025 Active metoprolol tartrate (Lopressor) 50 MG tabletIndications: Hypertension Take 1.5 tablets (75 mg) by mouth in the morning and 1.5 tablets (75 mg) before bedtime. 270 tablet 1 10/21/19 25 025 Active QUEtiapine (SEROquel) 100 MG tabletIndications: Insomnia, unspecified type Take 0.5-1 tablets (50-100 mg) by mouth at bedtime May repeat in about 4 hours upon awakening 90 tablet 1 10/25/19 25 025 Active tamsulosin (Flomax) 0.4 MG 24 hr capsule Take 0.4 mg by mouth Daily 11/26/19 Active ciprofloxacin (Cipro) 500 MG tablet Take 500 mg by mouth TAKE 1 TABLET NIGHT PRIOR TO CYSTOSCOPY AND 1 TABLET FOLLOWING CYSTOSCOPY 11/26/19 Active diazePAM (Valium) 5 MG tablet Take 5 mg by mouth 5 mg = 1 tab(s), Oral, Once, Take 30 mins prior to procedure. 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., # 1 01/07/20 Active Active Problems Problem Noted Date Diagnosed Date BPH with obstruction/lower urinary tract symptom s 11/28/2024 COPD (chronic obstructive pulmonary disease) Elevated PSA 11/28/2024 Feeling of incomplete bladder emptying Chronic pain syndrome 05/26/2024 Marijuana smoker 04/05/2024 Venous insufficiency 11/27/2023 Protein-calorie malnutrition, moderate ([facility]) 09/15/2023 Chronic hypoxemic respiratory failure 09/14/2023 Active substance abuse 12/01/2022 Anxiety associated with depression 12/01/2022 Cigarette smoker 12/01/2022 Cyclic vomiting syndrome 12/01/2022 Difficulty in walking, not elsewhere classified 12/01/2022 Gait instability 12/01/2022 Gastritis 12/01/2022 Gastroesophageal reflux disease without esophagi tis 12/01/2022 Generalized muscle weakness 12/01/2022 Impotence of organic origin 12/01/2022 Insomnia 12/01/2022 Mixed hyperlipidemia 12/01/2022 Panlobular emphysema 12/01/2022 Post-void dribbling 12/01/2022 Primary hypertension 12/01/2022 Recurrent major depressive disorder, in partial remission 12/01/2022 Relapsing remitting multiple sclerosis Simple chronic bronchitis 12/01/2022 Underweight 12/01/2022 Urinary incontinence without sensory awareness 0 12/01/2022 Vertigo of central origin 12/01/2022 Polypharmacy 08/04/2020 Resolved Problems Problem Noted Date Diagnosed Date Resolved Date Former smoker 12/23/2023 04/05/2024 Encounters Date Type Department Care Team Description 01/10/2025 Orders Only [facility] [address] [place] [address] Bubba Cruz MD 01/04/2025 Telephone [facility] [address] [place] [address] Myrna Mackay DE Care Coordination 11/28/2024 3:30 PM EDT Office Visit [facility] [address] [place] [address] Bubba Cruz MD Pneumonia of right lower lobe due to infectious organism (Primary Dx); Acute respiratory failure with hypoxia (HCC); Encounter for examination following treatment at hospital; Simple chronic bronchitis (HCC); Panlobular emphysema (HCC); Cigarette smoker; Polypharmacy 11/28/2024 Bamboo flowsheet [facility] [address] [facility] [address] [place] [address] Bubba Cruz MD 11/28/2024 Travel 11/25/2024 Clinisync Result Encounter [facility] External Department Unsolicited Provider, Generic External Data 11/23/2024 Telephone [facility] [address] [place] [address] Kenna Lockett RN Referral 11/19/2024 Clinisync Result Encounter [facility] External Department Unsolicited Provider, Generic External Data 11/17/2024 Patient Outreach [facility] [address] [place] [address] Yolette Godinez LSW 11/17/2024 Telephone [facility] [address] [place] [address] Myrna Mackay MA 11/01/2024 4:30 PM EDT Office Visit [facility] [address] [place] [address] Bubba Cruz MD COPD with acute exacerbation (HCC) (Primary Dx); Cigarette smoker; Marijuana smoker; Olecranon bursitis of right elbow; Swelling of right ankle joint; Polypharmacy 11/01/2024 Bamboo flowsheet [facility] [address] [place] [address] [place] [address] Bubba Cruz MD 11/01/2024 Travel 10/24/2024 Patient Outreach [facility] 3] [address] [place] [address] Kenna Lockett RN 10/21/2024 Patient Outreach [facility]NOTE 3] [address] [place] [address] Yolette Godinez LSW 10/20/2024 Telephone [facility] [address] [place] [address] [place] [address] Bubba Cruz MD Care Coordination 10/19/2024 Telephone [facility] [address] [place] [address] [place] [address] Bubba Cruz MD 10/17/2024 Refill [facility] [address] [place] [address] Elaina Burgess PA Cervical radiculopathy; Sensory disturbance; Muscle spasm; Tremor from Last 3 Months Family History Medical History Relation Name Comments Bladder cancer Father Leukemia Father Chronic Prostate cancer Father Tuberculosis Father Relation Name Status Comments Father Mother Alive Social History Tobacco Use Types Packs/Day Years Used Date Smoking Tobacco: Former Cigarettes 1.5 15 0 08/18/2008 - 08/18/2023 Smokeless Tobacco: Never Tobacco Cessation:Counseling Given: Yes Comments:21-30 cigs/day - not currently smoking 11/03/23 Alcohol Use Standard Drinks/Week Comments Never 0 (1 standard drink = 0.6 oz pure alcohol) Caffiene intake - 3-4 cans Pepsi daily Humiliation, Afraid, Rape, and Kick questionnair e [...] How often do you attend chur or confucianism services? Never 01/23/2023 Do you belong to any clubs o r organizations such as presybeterian groups, unions, fraternal or athletic groups, or school groups? No 01/23/2023 Attends Club or Organization Meetings Not on eduard e 01/23/2023 Are you , , di vorced, , never , or living with a partner? 01/23/2023 AUDIT-C Answer Date Recorded Q1: How often do you have a drink containing alcohol? Never 11/03/2023 Q2: How many drinks containi ng alcohol do you have on a typical day when you are drinking? Patient does not drink Frequency of Binge Drinking Not on file 10/12 Overall Financial Resource Strain (CARDIA) Answe r [...] money to buy more. Never true 12/02/19 Within the past 12 months, t he [...] file Not on file Not on file Last Filed Vital Signs Vital Sign Reading Time Taken Comments Blood Pressure 102/62 09/28/2024 2:08 PM EDT Pulse 71 11/28/2024 3:20 PM EDT Temperature 36.3 C (97.3 F) 11/03/2023 1:45 PM EDT Respiratory Rate 16 09/28/2024 2:08 PM EDT Oxygen Saturation 98% 11/28/2024 3:20 PM EDT Inhaled Oxygen Concentration - - Weight 65.3 kg (144 lb) 11/28/2024 3:20 PM EDT Height 177.8 cm (5' 10 ) 11/28/2024 3:20 PM EDT Body Mass Index 20.66 11/28/2024 3:20 PM EDT Plan of Treatment Upcoming Encounters Date Type Department Care Team (Late st Contact Info) Description 01/11/2025 11:00 AM EDT Office Visit [facility] [address] [place] [address] Dolly Bowen, [employer] SALES ENGINEER [address] [place] [address] 01/23/2025 2:00 PM EDT Office Visit [facility] [address] [place] [address] Bubba Cruz MD [address] [place] [address] Health Maintenance Due Date Last Done Comments CT Colonography 1969 Colonoscopy 1969 FIT 1969 FOBT 1969 Lung Cancer Screening Shared Decision Making 1969 Sigmoidoscopy 1970 Medicare Annual Wellness (AWV) 12/22/2024 0 12/23/2023, 12/01/2022, 12/01/2022 Colorectal Cancer Screening 04/19/2027 FIT-DNA 04/19/2027 04/19/2024 Influenza Vaccine Discontinued Procedures Procedure Name Priority Date/Time Associated Diagnosis Comments MHPT PSA, DIAGNOSTIC Routine 11/25/2024 2:04 PM EDT BLOOD CULTURE 2 Routine 11/19/2024 3:45 AM EDT BLOOD CULTURE 1 Routine 11/19/2024 3:38 AM EDT LAB COLOGUARD COLON CANCER SCREEN Routine 04/19/2024 1:00 PM EDT Screening for colon cancer from Last 3 Months or Most Recently Relevant to Health Maintenance Results * MHPT PSA, DIAGNOSTIC (11/25/2024 2:04 PM EDT) Pathologist [facility] PROSTATE SPECIFIC ANTIGEN DX 1.52 <=4.00 ng/mL [facility] 11/25/2024 2:04 PM EDT 11/25/2024 2:05 PM EDT Narrative [facility] - 11/25/2024 2:58 PM EDT us Generic External Data Provider [facility] F inal Result [facility] * BLOOD CULTURE 2 (11/19/2024 3:45 AM EDT) BLOOD CULTURE 2 Blood Culture 2 NG5D NO GROWTH AT 5 DAYS.^NO GROWTH AT 5 DAYS. [facility] 11/19/2024 3:45 AM EDT 11/19/2024 4:00 AM EDT Narrative [facility] - 11/24/2024 3:07 PM EDT Generic External Data Provider LAB BLOOD ORDERAB LES Final Result Performing Organization Address [facility] Co de Phone Number [facility] * BLOOD CULTURE 1 (11/19/2024 3:38 AM EDT) Pathologist [facility] BLOOD CULTURE 1 Blood Culture 1 NG5D NO GROWTH AT 5 DAYS.^NO GROWTH AT 5 DAYS. [facility] 11/19/2024 3:38 AM EDT 11/19/2024 4:00 AM EDT Narrative [facility] - 11/24/2024 3:07 PM EDT Generic External Data Provider LAB BLOOD ORDERAB LES Final Result Performing Organization Address [facility] de Phone Number [facility] * Cologuard® colon cancer screening (04/19/2024 1:00 PM EDT) Pathologist [facility] NONINV COLON CA DNA+OCC BLD SCRN STL-IMP Negative Negative 04/23/2024 11:43 AM EDT [facility] (CLIA #:[id number]) Comment: NEGATIVE TEST RESULT. A negative Cologuard result indicates a low likelihood that a colorectal cancer (CRC) or advanced adenoma (adenomatous polyps with more advanced pre-malignant features) is present. The chance that a person with a negative Cologuard test has a colorectal cancer is less than 1 in 1500 (negative predictive value >99.9%) or has an advanced adenoma is less than 5.3% (negative predictive value 94.7%). These data are based on a prospective cross-sectional study of 10,000 individuals at average risk for colorectal cancer who were screened with both Cologuard and colonoscopy. (Mami Deleon et al, N Engl J Med 2014;370(14):2109-8760) The normal value (reference range) for this assay is negative. COLOGUARD RE-SCREENING RECOMMENDATION: Periodic colorectal cancer screening is an important part of preventive healthcare for asymptomatic individuals at average risk for colorectal cancer. Following a negative Cologuard result, the [place] [employer] Society and U.S. Multi-Society Task Force screening guidelines recommend a Cologuard re-screening interval of 3 years. References: [place] [employer] Guideline for Colorectal Cancer Screening: https://www.cancer.org/cancer/tktts-kbfcch-rdqmxp/ianvvsyjc-alewgmocj-fbftnat/ac s-rec ommendations.html.; Ernst DK, Savanna MCFARLAND, Lino ChandK, Colorectal Cancer Screening: Recommendations for Physicians and Patients from the U.S. Multi-Society Task Force on Colorectal Cancer Screening , Am J Gastroenterology 2017; 112:3231-5778. TEST DESCRIPTION: Composite algorithmic analysis of stool DNA-biomarkers with hemoglobin immunoassay. Quantitative values of individual biomarkers are not reportable and are not associated with individual biomarker result reference ranges. Cologuard is intended for colorectal cancer screening of adults of either sex, 45 years or older, who are at average-risk for colorectal cancer (CRC). Cologuard has been approved for use by the U.S. FDA. The performance of Cologuard was established in a cross sectional study of average-risk adults aged 50-84. Cologuard performance in patients ages 45 to 49 years was estimated by sub-group analysis of near-age groups. Colonoscopies performed for a positive result may find as the most clinically significant lesion: colorectal cancer [4.0%], advanced adenoma (including sessile serrated polyps greater than or equal to 1cm diameter) [20%] or non- advanced adenoma [31%]; or no colorectal neoplasia [45%]. These estimates are derived from a prospective cross-sectional screening study of 10,000 individuals at average risk for colorectal cancer who were screened with both Cologuard and colonoscopy. (Mami Antoine al, N Engl J Med 2014;370(14):9300-6454.) Cologuard may produce a false negative or false positive result (no colorectal cancer or precancerous polyp present at colonoscopy follow up). A negative Cologuard test result does not guarantee the absence of CRC or advanced adenoma (pre-cancer). The current Cologuard screening interval is every 3 years. ([place] [employer] Society and U.S. Multi-Society Task Force). Cologuard performance data in a 10,000 patient pivotal study using colonoscopy as the reference method can be accessed at the following location: www.[employer].Ulmart/results. Additional description of the Cologuard test process, warnings and precautions can be found at www.cologhopTord.com. Stool specimen (specimen) 04/19/2024 1:00 PM EDT 04/20/2024 7:50 AM EDT Bubba Cruz MD LAB MOLECULAR DIAGNOSTICS OR DERABLES Final Result .[facility] (CLIA #:[id number]) [address] [address], [facility] (CLIA #:[id number]) [address] [place] [address] from Last 3 Months or Most Recently Relevant to Health Maintenance Insurance MEDICAID [place] AARP MEDICARE COMPLETE Care Teams Digital Watch Assembler Relationship Specialty Start Date End Date Bubba Cruz MD [address] [facility] [address] [place] [address] PCP - General Family Medicine 11/27/22 Elaina Burgess PA [address] [place] [address] Physician Internet Consultant Neurology 12/02/23 Kenna Lockett, [place] [address] [place] [address] Registered Nurse Family Medicine 12/02/23 Stan Win MD [address] [place] [address] Referring Physician Behavioral Health 12/02/23
--- OUTSIDE RECORDS SUMMARY | 2025-01-10 17:07 | XMS_ITS | Encounter Summary ---
Author Organization [facility] Address [address] [place] [address] Care Team Providers Care Oncology Social Worker Name Role Phone Bubba Cruz MD Primary Care Provider [phone] Bubba Cruz MD Unavailable [phone] Elaina Burgess Unavailable Kenna Lockett RN Unavailable [phone] Stan Win MD Unavailable [phone] Bubba Cruz MD Unavailable [phone] Encounter Details Date Type Department Care Team (Late st Contact Info) Description 08/26/2023 Abstract [facility] [address] [place] [address] Kris Rousseau, DO [address] [place] [address] Social History Tobacco Use Types Packs/Day Years [...] How often do you attend chur or tenriism services? Never 01/23/2023 Do you belong to any clubs o r organizations such as confucianist groups, unions, fraternal or athletic groups, or [...] [facility] [address] [facility] [address] [place] [address] Dolly Bowen, HEALTH SCREENER [address] [place] [address] 01/23/2025 2:00 PM EDT Office Visit [facility] [address] [place] [address] Bubba Cruz MD [address] [place] [address] documented as of this encounter Visit Diagnoses Not on filedocumented in this encounter Care Teams Oncology Social Worker Relationship Specialty Start Date End Date Bubba Cruz MD [address] [place] [address] PCP - General Family Medicine 11/27/22 Bubba Cruz MD [address] [place] [address] PCP - ACO Reach 12/04/22 08/18/24 Bubba Cruz MD [address] [place] [address] PCP - ACO Reach 08/26/24 10/13/24 Elaina Burgess PA [address] [place] [id number] Physician Hot Box Checker Neurology 12/02/23 Kenna Lockett, [place] [address] [place] [address] Registered Nurse Family Medicine 12/02/23 Stan Win MD [address] [place] [address] Referring Physician Behavioral Health 12/02/23 documented as of this encounter
--- OUTSIDE RECORDS SUMMARY | 2025-01-10 17:07 | XMS_ITS | Encounter Summary ---
Author Organization [facility] Address [address] [place] [address] Care Team Providers Care Educational Interpreter Name Role Phone Bubba Cruz MD Primary Care Provider + [phone] Bubba Cruz MD Unavailable [phone] Elaina Burgess Unavailable Kenna Lockett RN Unavailable [phone] Stan Win MD Unavailable [phone] Bubba Cruz MD Unavailable [phone] Encounter Details Date Type Department Care Team (Late st Contact Info) Description 03/11/2023 Abstract [facility] [address] [place] [address] Bubba Cruz MD [address] [address] (Fax) Social History Tobacco Use Types Packs/Day Years Used Date Smoking Tobacco: Every Day Cigarettes 1.5 15 Smokeless Tobacco: Never Tobacco Cessation:Ready to Q uit: Yes; Counseling Given: Not Answered Comments:21-30 cigs/day Alcohol Use Standard Drinks/Week Comments [...] How often do you attend chur or sikhism services? Never 01/23/2023 Do you belong to any clubs o r organizations such as christian groups, unions, fraternal or athletic groups, or [...] [facility] [address] [facility] [address] [place] [address] Dolly Bowen, WIRE WEB WORKER [address] [place] [address] 01/23/2025 2:00 PM EDT Office Visit [facility] [address] [place] [address] Bubba Cruz MD [address] [place] [address] documented as of this encounter Visit Diagnoses Not on filedocumented in this encounter Care Teams Educational Interpreter Relationship Specialty Start Date End Date Bubba Cruz MD [address] [place] [address] (Fax) PCP - General Family Medicine 11/27/22 Bubba Cruz MD [address] [place] [address] (Fax) PCP - ACO Reach 12/04/22 08/18/24 Bubba Cruz MD [address] [place] [address] PCP - ACO Reach 08/26/24 10/13/24 Elaina Burgess PA [address] [place] [id number] Physician Driver License Agent Neurology 12/02/23 Kenna Lockett, [place] [address] [place] [address] Registered Nurse Family Medicine 12/02/23 Stan Win MD [address] [place] [address] Referring Physician Behavioral Health 12/02/23 documented as of this encounter
--- OUTSIDE RECORDS SUMMARY | 2025-01-10 17:07 | XMS_ITS | Clinical Summary ---
Author Organization [facility] tem Address [id number] [address] [place] [address] Care Team Providers Care Buyer Name Role Phone Unavailable Primary Care Provider Unavailabl e Medications * This document contains information received from the source organization and may not represent a complete record from that organization. OCREVUS 30 mg/mL injection 03/04/20 Active baclofen (LIORESAL) 10 mg tablet Take 1 tablet (10 mg total) by mouth in the morning and 1 tablet (10 mg total) at noon and 1 tablet (10 mg total) in the evening and 1 tablet (10 mg total) before bedtime. 05/01/20 Active SYMBICORT 160-4.5 mcg/actuation inhaler Inhale 2 puffs in the morning and 2 puffs before bedtime. 05/01/20 Active losartan (COZAAR) 100 mg tablet Take 1 tablet (100 mg total) by mouth in the morning. 05/01/20 Active meclizine (ANTIVERT) 25 mg tablet TAKE ONE TABLET BY MOUTH THREE TIMES A DAY NEEDED FOR 30 DAYS 02/08/20 Active metoprolol tartrate (LOPRESSOR) 50 mg tablet Take 1 tablet (50 mg total) by mouth in the morning and 1 tablet (50 mg total) before bedtime. 05/01/20 Active OXcarbazepine (TRILEPTAL) 300 mg tablet Take 1 tablet (300 mg total) by mouth in the morning and 1 tablet (300 mg total) before bedtime. 05/01/20 Active pantoprazole (PROTONIX) 40 mg EC tablet TAKE ONE TABLET BY MOUTH TWICE A DAY FOR 30 DAYS 10/20/20 22 Active pregabalin (LYRICA) 200 mg capsule TAKE ONE CAPSULE BY MOUTH THREE TIMES A DAY FOR 30 DAYS 05/05/20 Active primidone (MYSOLINE) 50 mg tablet 2 tablets (100 mg total) once daily at bedtime. 05/01/20 22 Active medical marijuana Inhale. Active QUEtiapine (SEROquel) 50 mg tablet TAKE 1-2 TABLETS (50-100 MG) BY MOUTH AT BEDTIME. MAY REPEAT IN ABOUT 4 HOURS UPON AWAKENING Active DULoxetine (CYMBALTA) 60 mg capsuleIndicat ions:Moderate episode of recurrent major depressive disorder (CMS-HCC) Take 2 capsules (120 mg total) by mouth in the morning. 180 capsule 3 06/08/20 24 Active oxyCODONE (ROXICODONE) 15 mg immediate release tablet 1 tablet (15 mg total). Active spironolactone (ALDACTONE) 50 mg tablet TAKE 1 TABLET (50 MG) BY MOUTH DAILY Active ARIPiprazole (ABILIFY) 5 mg tabletIndicati ons:Moderate episode of recurrent major depressive disorder (CMS-HCC) Take 1 tablet (5 mg total) by mouth in the morning. 90 tablet 1 09/20/19 25 Active clonazePAM (KlonoPIN) 1 mg tabletIndicati ons:Generalize d anxiety disorder TAKE 1 TABLET (1 MG TOTAL) BY MOUTH IN THE MORNING AND 1 TABLET (1 MG TOTAL) BEFORE BEDTIME. 60 tablet 2 12/20/19 25 Active clonazePAM (KlonoPIN) 1 mg tabletIndicati ons:Generalize d anxiety disorder Take 1 tablet (1 mg total) by mouth in the morning and 1 tablet (1 mg total) before bedtime. 60 tablet 2 09/15/19 25 025 Discontinued Active Problems Problem Noted Date Diagnosed Date Moderate episode of recurrent major depressive d isorder 05/13/2022 Generalized anxiety disorder 05/13/2022 Social anxiety disorder 05/13/2022 Multiple sclerosis 05/13/2022 Encounters * This document contains information received from the source organization and may not represent a complete record from that organization. Date Type Department Care Team Description 12/19/2024 Orders Only [facility] [address] [facility] [address] [place] [address] Stan Win MD from Last 3 Months Social History Tobacco Use Types Packs/Day Years Used Date Smoking Tobacco: Never Assessed Sex and Gender Information Value Date Recorded Sex Assigned at Not on file Legal Sex Male 3:23 PM EDT Gender Identity Not on file Sexual Orientation Not on file Plan of Treatment Health Maintenance Due Date Last Done Comments Depression Screening 1981 Tobacco Screening 1981 Adult BMI Screening 1987 DTaP,Tdap and Td Vaccines (1 - Tdap) 1988 Zoster (Shingles) Vaccine (1 of 2) 2019 COVID-19 Vaccine (3 - season) 03/13/202406/2021, 10/01/2020 Influenza Vaccine 03/13/2025 Medical Devices Not on file Insurance MEDICAID [place] [employer] MEDICARE
--- OUTSIDE RECORDS SUMMARY | 2025-01-10 17:07 | XMS_ITS | Encounter Summary ---
Author Organization [facility] Address [address] [place] [address] Care Team Providers Care Upholstery Repairer Name Role Phone Bubba Cruz MD Primary Care Provider [phone] Bubba Cruz MD Unavailable [phone] Elaina Burgess Unavailable Kenna Lockett RN Unavailable [phone] Stan Win MD Unavailable [phone] Bubba Cruz MD Unavailable [phone] Encounter Details Date Type Department Care Team (Late st Contact Info) Description 01/05/2023 Orders Only [facility] [address] [facility] [place] [address] Bubba Cruz MD 112 [facility] 100 [place] [address] (Fax) Social History Tobacco Use Types Packs/Day Years Used Date Smoking Tobacco: Every Day Cigarettes 1.5 15 Smokeless Tobacco: Never Alcohol Use Standard Drinks/Week Comments Never 0 (1 standard drink = 0.6 oz pur e alcohol) Humiliation, Afraid, Rape, and Kick questionnair e [...] or ex-partner? No 12/01/2022 Social Connection and Isolation Panel [NHANES] A nswer Date Recorded Frequency of Communication with Friends and Fami ly Not on file 12/01/2022 Frequency of Social Gatherings with Friends and Family Not on file 12/01/2022 Attends Jewish Services Not on file 12/01 Active Member of Clubs or Organizations Not on f ile 12/01/2022 How often do you attend meet ings of the clubs or organizations you belong to? Never 12/01/2022 Marital Status Not on file 12/01/2022 AUDIT-C Answer Date Recorded Q1: How often [...] Recorded Patient Health Questionnaire-2 Score 4 12/01/2022 Hunger Vital Sign Answer Date Recorded Within [...] Stability Vital Sign Answer Jose e Recorded In the last 12 months, was t here a time when you were not able to pay the mortgage or rent on time? No 12/01/2022 Number of Places Lived in the Last Year Not on f ile 12/01/2022 In the last 12 months, was t here a time when you did not have a steady place to sleep or slept in a [place] facility (including now)? No 12/01/2022 Sex and Gender Information Value Date Recorded Sex Assigned at Not on file Legal Sex Male 7:09 PM EDT Gender Identity Not on file Sexual Orientation Not on file documented as of this encounter Plan of Treatment Upcoming Encounters Date Type Department Care Team (Late st Contact Info) Description 01/11/2025 11:00 AM EDT Office Visit [facility] [address] [place] [id number] Dolly Bowen, BRUSH STAINER [address] [place] [address] 01/23/2025 2:00 PM EDT Office Visit [facility] [address] [place] [address] Bubba Cruz MD [address] [place] [address] (Fax) documented as of this encounter Visit Diagnoses Not on filedocumented in this encounter Care Teams Upholstery Repairer Relationship Specialty Start Date End Date Bubba Cruz MD [address] [facility] 100 [place] [address] (Fax) PCP - General Family Medicine 11/27/22 Bubba Cruz MD [address] [facility] 100 [place] [address] (Fax) PCP - ACO Reach 12/04/22 08/18/24 Bubba Cruz MD [address] [facility] [address] [place] [address] (Fax) PCP - ACO Reach 08/26/24 10/13/24 Elaina Burgess PA [address] [place] [address] Physician Flag Football Coach Neurology 12/02/23 Kenna Lockett, GRAHAM [address] [facility] [address] [place] [address] Registered Nurse Family Medicine 12/02/23 Stan Win MD [address] [facility] [address] [place] [address] Referring Physician Behavioral Health 12/02/23 documented as of this encounter
--- OUTSIDE RECORDS SUMMARY | 2025-01-10 17:07 | XMS_ITS | Encounter Summary ---
Author Organization [facility] Address [address] [place] [address] Care Team Providers Care Bush Hog Operator Name Role Phone Bubba Cruz MD Primary Care Provider Bubba Cruz MD Unavailable [phone] Elaina Burgess Unavailable Kenna Lockett RN Unavailable [phone] Stan Win MD Unavailable [phone] Bubba Cruz MD Unavailable [phone] Encounter Details Date Type Department Care Team (Late st Contact Info) Description 02/25/2023 Abstract [facility] [address] [place] [address] Bubba Cruz MD 112 [facility] 100 [place] [address] (Fax) Social History Tobacco Use [...] any clubs o r organizations such as sabianist groups, unions, fraternal or athletic groups, or [...] [facility] [address] [facility] [address] [place] [address] Dolly Bowen, MOUNTER FLUTES AND PICCOLOS [address] [place] [address] 01/23/2025 2:00 PM EDT Office Visit [facility] [address] [place] [address] Bubba Cruz MD [address] [place] [address] (Fax) documented as of this encounter Visit Diagnoses Not on filedocumented in this encounter Care Teams Bush Hog Operator Relationship Specialty Start Date End Date Bubba Cruz MD [address] [place] [address] (Fax) PCP - General Family Medicine 11/27/22 Bubba Cruz MD [address] [place] [address] PCP - ACO Reach 12/04/22 08/18/24 Bubba Cruz MD [address] [place] [address] PCP - ACO Reach 08/26/24 10/13/24 Elaina Burgess PA [address] [place] [address] Physician Director Of Retail Merchandising Neurology 12/02/23 Kenna Lockett, GRAHAM [address] [place] [address] Registered Nurse Family Medicine 12/02/23 Stan Win MD [address] [place] [address] Referring Physician Behavioral Health 12/02/23 documented as of this encounter
--- OUTSIDE RECORDS SUMMARY | 2025-01-10 17:07 | XMS_ITS | Encounter Summary ---
Author Organization [facility] Address [address] [place] [address] Care Team Providers Care Game Preserve Manager Name Role Phone Bubba Ghotra MD Primary Care Provider [phone] Bubba Ghotra MD Unavailable [phone] Anjali Frausto Unavailable Kenna Lockett RN Unavailable [phone] Stan Win MD Unavailable [phone] Bubba Ghotra MD Unavailable [phone] Encounter Details Date Type Department Care Team (Late st Contact Info) Description 06/22/2024 Clinisync Result Encounter [facility] External Department Unsolicited Anjali Frausto PA [address] [place] [address] Social History Tobacco Use Types Packs/Day Years Used Date Smoking Tobacco: Former Cigarettes 1.5 15 0 08/18/2008 - 08/18/2023 Smokeless Tobacco: Never Comments:21-30 cigs/day - no t currently smoking 11/03/23 Alcohol Use Standard Drinks/Week [...] How often do you attend chur or jain services? Never 01/23/2023 Do you belong to any clubs o r organizations such as adventist groups, unions, fraternal or athletic groups, or [...] [facility] [address] [facility] [address] [place] [address] Dolly Bowen, VICE PRESIDENT OF HUMAN RESOURCES [address] [place] [address] 01/23/2025 2:00 PM EDT Office Visit [facility] 100 [address] [facility] 100 [place] [address] Bubba Ghotra MD 112 [facility] 100 [place] [address] (Fax) documented as of this encounter Procedures Procedure Name Priority Date/Time Associated Diagnosis Comments MRI HEAD/BRAIN WO/W CONTR 06/22/2024 9:50 PM EST documented in this encounter Results * MRI HEAD/BRAIN WO/W CONTR (06/22/2024 9:50 PM EST) Anatomical Region Laterality Modality Radiographic Luciana ging 06/22/2024 9:50 PM EST Narrative 06/22/2024 9:53 [place] [address] Magnetic Resonance Report Signed Patient: HARISH EMMANUEL MR#: [id number] : 1970 Acct:[id number] Age/Sex: 54 / M ADM Date: 06/22/24 Loc: MRI Attending Dr: Anjali RIGGINS Ordering Physician: Anjali Frausto Date of Service: 06/22/24 Procedure(s): MR head/brain wo/w con Accession Number(s): [id number] cc: BUBBA GHOTRA ; Anjali Frausto [place] [address] Patient Name: HARISH EMMANUEL MRN: [id number] date: 1970 Sex: M Assigned Patient Location: MRI Current Patient Location: MRI Accession/Order Number: [id number] Exam Date: 06/22/2024 13:45 Report Date: 06/22/2024 21:50 At the request of: ANJALI FRAUSTO Procedure: MR head/brain wo/w con EXAM: MR head/brain wo/w con HISTORY: Multiple Sclerosis COMPARISON: MRI brain 10/31/2022. TECHNIQUE: Multisequence MRI brain was performed with and without intravenous contrast. FINDINGS: There is no restricted diffusion to suggest acute infarct. There is no midline shift, mass effect, or abnormal extraaxial fluid collections. There are no abnormal parenchymal or leptomeningeal enhancement. The cortical sulci and ventricular system are within normal limits. There are multiple bright T2 signal throughout the supratentorial white matter, most of which oriented perpendicularly to the ventricles, grossly unchanged compared to prior examination from 10/31/2022. None of the lesions demonstrate restricted diffusion or abnormal enhancement. No new lesions are identified. There is no associated enhancement or restricted diffusion. The major intracranial flow voids are visualized. The cerebellar tonsils are normal in position. The orbits demonstrate no suspicious enhancement or any focal lesions. The paranasal sinuses show no air-fluid level. The mastoid air cells are clear. The calvarium is unremarkable. 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 MR/MR head/brain wo/w con IMPRESSION: No acute intracranial abnormality or abnormal intracranial enhancement. Multiple T2 signal abnormality throughout the supratentorial white matter, compatible with patient's diagnosis of multiple sclerosis, stable compared to prior study. No new lesions. No evidence for interval progression or active demyelination involving the brain. Electronically authenticated by: KRISTAL CASTILLO Date: 06/22/2024 21:50 Dictated By: KRISTAL CASTILLO M.D. Signed By: 06/22/242152 DD/ 49 TD/TT: Carpenter Refrigerator: Procedure Note Radiology, Radiologist, MD - 06/22/2024 [place] [address] Magnetic Resonance Report Signed Patient: HARISH EMMANUEL LMR#: [id number] : 1970Acct:[id number] Age/Sex: 54 / MADM Date: 06/22/24 Loc: MRI Attending Dr: Anjali RIGGINS Ordering Physician: Anjali Frausto Date of Service: 06/22/24 Procedure(s): MR head/brain wo/w con Accession Number(s): [id number] cc: BUBBA GHOTRA ; Anjali Frausto [place] [address] Patient Name: HARISH EMMANUEL MRN: [id number] date: 1970 Sex: M Assigned Patient Location: MRI Current Patient Location: MRI Accession/Order Number: [id number] Exam Date: 06/22/2024 13:45 Report Date: 06/22/2024 21:50 At the request of: ANJALI FRAUSTO Procedure: MR head/brain wo/w con EXAM: MR head/brain wo/w con HISTORY: Multiple Sclerosis COMPARISON: MRI brain 10/31/2022. TECHNIQUE: Multisequence MRI brain was performed with and withoutintravenous contrast. FINDINGS: There is no restricted diffusion to suggest acute infarct. There is nomidline shift, mass effect, or abnormal extraaxial fluid collections. There are no abnormal parenchymal or leptomeningeal enhancement. The cortical sulci and ventricular system are within normal limits. There are multiple bright T2 signal throughout the supratentorial white matter, most of which oriented perpendicularly to the ventricles, grosslyunchanged compared to prior examination from 10/31/2022. None of the lesionsdemonstrate restricted diffusion or abnormal enhancement. No new lesions areidentified. There is no associated enhancement or restricted diffusion. The major intracranial flow voids are visualized. The cerebellar tonsilsare normal in position. The orbits demonstrate no suspicious enhancement or any focal lesions. The paranasal sinuses show no air-fluid level. The mastoid air cells areclear. The calvarium is unremarkable. Redemonstrated is stable right frontalsubcutaneous lipoma. MR/MR head/brain wo/w con IMPRESSION: No acute intracranial abnormality or abnormal intracranial enhancement. Multiple T2 signal abnormality throughout the supratentorial white matter, compatible with patient's diagnosis of multiple sclerosis, stable comparedto prior study. No new lesions. No evidence for interval progression oractive demyelination involving the brain. Electronically authenticated by: KRISTAL CASTILLO Date: 06/22/2024 21:50 Dictated By: KRISTAL CASTILLO M.D. Signed By:06/22/242152 DD/ 49 TD/TT: Carpenter Refrigerator: Anjali RIGGINS IMG XR PROCEDURES Final Result documented in this encounter Visit Diagnoses Not on filedocumented in this encounter Additional Health Concerns Assessment Noted Time PHQ-9 Depression Total Score: 16 024 3:00 PM EDT documented as of this encounter Care Teams Game Preserve Manager Relationship Specialty Start Date End Date Bubba Ghotra MD [address] [facility] [address] [place] [address] PCP - General Family Medicine 11/27/22 Bubba Ghotra MD [address] [place] [address] PCP - ACO Reach 12/04/22 08/18/24 Bubba Ghotra MD [address] [place] [address] [address] [place] [address] PCP - ACO Reach 08/26/24 10/13/24 Anjali Frausto PA [address] [place] [address] Physician Principal Scientist Neurology 12/02/23 Kenna Lockett, GRAHAM [address] [place] [address] Registered Nurse Family Medicine 12/02/23 Stan Win MD [address] [place] [address] Referring Physician Behavioral Health 12/02/23 documented as of this encounter
--- OUTSIDE RECORDS SUMMARY | 2025-01-10 17:08 | XMS_ITS | Encounter Summary ---
Author Organization [facility] Address [address] [place] [address] Care Team Providers Care Tug Master Name Role Phone Bubba Cruz MD Primary Care Provider [phone] Bubba Cruz MD Unavailable [phone] Elaina Burgess Unavailable Kenna Lockett RN Unavailable [phone] Stan Win MD Unavailable [phone] Bubba Cruz MD Unavailable [phone] Encounter Details Date Type Department Care Team (Late st Contact Info) Description 10/24/2023 Abstract [facility] [address] [place] [address] Shaikh James MD [address] [place] [address] Social History Tobacco Use Types Packs/Day Years [...] How often do you attend chur or orthodox services? Never 01/23/2023 Do you belong to any clubs o r organizations such as buddhism groups, unions, fraternal or athletic groups, or [...] [facility] [address] [facility] [address] [place] [address] Dolly Bowen, GRAB DRIVER [address] [place] [address] 01/23/2025 2:00 PM EDT Office Visit [facility] [address] [place] [address] Bubba Cruz MD [address] [place] [address] documented as of this encounter Visit Diagnoses Not on filedocumented in this encounter Care Teams Tug Master Relationship Specialty Start Date End Date Bubba Cruz MD [address] [place] [address] (Fax) PCP - General Family Medicine 11/27/22 Bubba Cruz MD [address] [place] [address] PCP - ACO Reach 12/04/22 08/18/24 Bubba Cruz MD [address] [place] [address] PCP - ACO Reach 08/26/24 10/13/24 Elaina Burgess PA [address] [place], [place] [id number] Physician Informatics Educator Neurology 12/02/23 Kenna Lockett, GRAHAM [address] [place] [address] Registered Nurse Family Medicine 12/02/23 Stan Win MD [address] [place] [address] Referring Physician Behavioral Health 12/02/23 documented as of this encounter
--- OUTSIDE RECORDS SUMMARY | 2025-01-10 17:08 | XMS_ITS | Encounter Summary ---
Author Organization [facility] Address [address] [place] [address] Care Team Providers Care Goodwill Representative Name Role Phone Bubba Cruz MD Primary Care Provider [phone] Elaina Burgess Unavailable Kenna Lockett RN Unavailable [phone] Stan Win MD Unavailable [phone] Reason for Visit * Reason Onset Date Comments Care Coordination 01/04/2025 Encounter Details Date Type Department Care Team (Late st Contact Info) Description 01/04/2025 Telephone [facility] [address] [place] [address] Myrna Oh MA Care Coordination Social History Tobacco Use Types Packs/Day Years [...] any clubs o r organizations such as denominational groups, unions, [employer] or athletic groups, or school groups? No [...] on file documented as of this encounter Miscellaneous Notes * Addendum Note - Myrna Oh MA - 01/04/2025 9:59 AM EDTAddended by: MYRNA OH on: 01/04/2025 09:59 AM Modules accepted: Orders * Telephone Encounter - Myrna Oh MA - 01/04/2025 9:57 AM EDT Thank you Alecia. I added in fasting labs for a CMP and Lipid. * Telephone Encounter - Myrna Oh MA - 01/04/2025 8:[address] Cruz gave me the VO to possibly have the BREAD AND PASTRY BAKER Alecia Bowen do the patients MWV at home due to his mobility issues from his MS. documented in this encounter Plan of Treatment Upcoming Encounters Date Type Department Care Team (Late st Contact Info) Description 01/11/2025 11:00 AM EDT Office Visit [facility] [address] [place] [address] Dolly Bowen, BREAD AND PASTRY BAKER [address] [place] [address] 01/23/2025 2:00 PM EDT Office Visit [facility] [address] [address] Bubba Cruz MD [address] [address] (Fax) Scheduled Orders Name Type Priority Associated Diagnoses Orde r Schedule Comprehensive metabolic panel Lab Routine Screening for diabetes mellitus (DM) Expected: 01/04/2025 (Approximate), Expires: 01/04/2026 Lipid panel Lab Routine Mixed hyperlipidemia Expected: 01/04/2025 (Approximate), Expires: 01/04/2026 documented as of this encounter Visit Diagnoses Diagnosis Mixed hyperlipidemia Mixed hyperlipidemia Screening for diabetes mellitus (DM) Screening for diabetes mellitus Preoperative evaluation to rule out surgical contraindication Post-void dribbling Urinary incontinence without sensory awareness Incontinence without sensory awareness Relapsing remitting multiple sclerosis (HCC) Multiple sclerosis Polypharmacy Issue of repeat prescriptions Marijuana smoker Cigarette smoker Tobacco use disorder documented in this encounter Additional Health Concerns Assessment Noted Time PHQ-9 Depression Total Score: 16 024 3:00 PM EDT documented as of this encounter Care Teams Goodwill Representative Relationship Specialty Start Date End Date Bubba Cruz MD [address] [address] PCP - General Family Medicine 11/27/22 Elaina Burgess PA [address] [place] [address] Physician Tableau Administrator Neurology 12/02/23 Kenna Lockett, GRAHAM [address] [place] [address] Registered Nurse Family Medicine 12/02/23 Stan Win MD [address] [place] [address] Referring Physician Behavioral Health 12/02/23 documented as of this encounter
--- OUTSIDE RECORDS SUMMARY | 2025-01-10 17:08 | XMS_ITS | Encounter Summary ---
Author Organization [facility] Address [address] [place] [address] Care Team Providers Care Application Support Administrator Name Role Phone Bubba Cruz MD Primary Care Provider [phone] Bubba Cruz MD Unavailable [phone] Elaina Burgess Unavailable Kenna Lockett RN Unavailable [phone] Stan Win MD Unavailable [phone] Bubba Cruz MD Unavailable [phone] Encounter Details Date Type Department Care Team (Late st Contact Info) Description 10/16/2023 Orders Only [facility] [address] [facility] [place] [address] Reginaldo Castelan MD [address] [facility] Social History Tobacco Use Types Packs/Day Years [...] How often do you attend chur or hindu services? Never 01/23/2023 Do you belong to any clubs o r organizations such as scientology groups, unions, fraternal or athletic groups, or [...] [facility] [address] [place] [address] Dolly Bowen, GERIATRIC NURSE ASSISTANT [address] [place] [address] 01/23/2025 2:00 PM EDT Office Visit [facility] 100 112 [facility] 100 [place] [address] Bubba Crzu MD 112 [facility] 100 [place] [address] documented as of this encounter Procedures Procedure Name Priority Date/Time Associated Diagnosis Comments XR CHEST 2 VIEWS Routine 10/16/2023 9:00 AM EDT documented in this encounter Results * XR chest 2 views (10/16/2023 9:00 AM EDT) Anatomical Region Laterality Modality Chest Radiographic Luciana ging us Reginaldo Castelan MD IMG XR PROCEDURES Final Result documented in this encounter Visit Diagnoses Not on filedocumented in this encounter Care Teams Application Support Administrator Relationship Specialty Start Date End Date Bubba Cruz MD [address] [place] [address] PCP - General Family Medicine 11/27/22 Bubba Cruz MD [address] [place] [address] PCP - ACO Reach 12/04/22 08/18/24 Bubba Cruz MD [address] [place] [address] PCP - ACO Reach 08/26/24 10/13/24 Elaina Burgess PA [address] [facility] [address] [place] [id number] Physician Spring Clipper Neurology 12/02/23 Kenna Lockett RN [address] [place] [address] Registered Nurse Family Medicine 12/02/23 Stan Win MD [address] [place] [address] Referring Physician Behavioral Health 12/02/23 documented as of this encounter
--- OUTSIDE RECORDS SUMMARY | 2025-01-10 17:08 | XMS_ITS | Encounter Summary ---
Author Organization [facility] Address [address] [place] [address] Care Team Providers Care Powerplant Operator Name Role Phone Bubba Cruz MD Primary Care Provider [phone] Bubba Cruz MD Unavailable [phone] Elaina Burgess Unavailable Kenna Lockett RN Unavailable [phone] Stan Win MD Unavailable [phone] Bubba Cruz MD Unavailable [phone] Encounter Details Date Type Department Care Team (Late st Contact Info) Description 08/27/2023 Abstract [facility] [address] [place] [address] Kris Rousseau, DO [address] [place] [address] Social History Tobacco Use Types Packs/Day Years [...] How often do you attend chur or mosque services? Never 01/23/2023 Do you belong to any clubs o r organizations such as jew groups, unions, fraternal or athletic groups, or [...] [facility] [address] [facility] [address] [place] [address] Dolly Bowen, RESIDENCE LEASING AGENT [address] [place] [address] 01/23/2025 2:00 PM EDT Office Visit [facility] [address] [place] [address] Bubba Cruz MD [address] [place] [address] documented as of this encounter Visit Diagnoses Not on filedocumented in this encounter Care Teams Powerplant Operator Relationship Specialty Start Date End Date Bubba Cruz MD [address] [place] [address] PCP - General Family Medicine 11/27/22 Bubba Cruz MD [address] [place] [address] PCP - ACO Reach 12/04/22 08/18/24 Bubba Cruz MD [address] [place] [address] PCP - ACO Reach 08/26/24 10/13/24 Elaina Burgess PA [address] [place] [id number] Physician Machining Manager Neurology 12/02/23 Kenna Lockett, [place]RAH[place] [address] [place] [address] Registered Nurse Family Medicine 12/02/23 Stan Win MD [address] [place] [address] Referring Physician Behavioral Health 12/02/23 documented as of this encounter
--- OUTSIDE RECORDS SUMMARY | 2025-01-10 17:08 | XMS_ITS | Encounter Summary ---
Author Organization [facility] Address [address] [place] [address] Care Team Providers Care Airline Pilot Flight Instructor Name Role Phone Bubba Ghotra MD Primary Care Provider + [phone] Bubba Ghotra MD Unavailable [phone] Elaina Burgess Unavailable Kenna Lockett RN Unavailable [phone] Stan Win MD Unavailable [phone] Bubba Ghotra MD Unavailable [phone] Encounter Details Date Type Department Care Team (Late st Contact Info) Description 09/18/2023 Clinisync Result Encounter [facility] External Department Unsolicited Bubba Ghotra MD [address] [facility] [address] [place] [address] Social History Tobacco Use Types Packs/Day Years [...] week 01/23/2023 How often do you attend [facility] or pentecostal services? Never 01/23/2023 Do you belong to any clubs o r organizations such as evangelical groups, unions, fraternal or athletic groups, or [...] [facility] [address] [facility] [address] [place] [address] Dolly Bowen, PLANS EXAMINER [address] [facility] [place] [address] 01/23/2025 2:00 PM EDT Office Visit [facility] 100 [address] [facility] [address] [place] [address] Bubba Ghotra MD [address] [facility] [address] [place] [address] documented as of this encounter Procedures Procedure Name Priority Date/Time Associated Diagnosis Comments VASC US LOWER EXTREMITY VENOUS DUPLEX RIGHT 09/18/2023 11:50 AM EST documented in this encounter Results * Vascular US lower extremity venous duplex right (09/18/2023 11:50 AM EST) Anatomical Region Laterality Modality Lower Extremities Ultrasound 09/18/2023 11:5 0 AM EST Narrative 09/18/2023 11:53 AM EST [address] [address] Ultrasound Report Signed Patient: HARISH EMMANUEL MR#: [id number] : 1970 Acct:[id number] Age/Sex: 53 / M ADM Date: 09/18/23 Loc: US Attending Dr: BUBBA GHOTRA Ordering Physician: BUBBA GHOTRA Date of Service: 09/18/23 Procedure(s): US venous doppler LE RT Accession Number(s): [id number] cc: BUBBA GHOTRA [place] [address] Patient Name: HARISH EMMANUEL MRN: [id number] date: 1970 Sex: M Assigned Patient Location: US Current Patient Location: US Accession/Order Number: [id number] Exam Date: 09/18/2023 10:45 Report Date: 09/18/2023 11:50 At the request of: BUBBA GHOTRA Procedure: US venous doppler LE RT Ultrasound venous duplex scan right lower extremity CLINICAL: Right lower extremity pain, swelling, redness TECHNIQUE: Lyon-scale, color Doppler and Duplex examination of the right lower extremity was performed with and without provocative maneuvers. FINDINGS: Comparison: None. Sonographic examination of the right lower extremity deep venous system to include the common femoral, superficial femoral and popliteal veins, demonstrates normal compressibility, color-flow, respiratory variation, and augmentation. The origin of the greater saphenous vein demonstrates normal compression, and there is normal color-flow in the proximal profunda femoral vein. There is normal color-flow in the peroneal, posterior tibial, and anterior tibial veins. US/US venous doppler LE RT IMPRESSION: 1. No deep venous thrombosis in the right lower extremity. Electronically authenticated by: JAVI PADILLA Date: 09/18/2023 11:50 Dictated By: Javi Padilla M.D. Signed By: 09/18/23 1153 DD/ 1150 TD/TT: Mineral Industry Teacher: Procedure Note Radiology, Radiologist, MD - 09/18/[address] [address] Ultrasound Report Signed Patient: HARISH EMMANUEL LMR#: [id number] : 1970Acct:[id number] Age/Sex: 53 / MADM Date: 09/18/23 Loc: US Attending Dr: BUBBA GHOTRA Ordering Physician: BUBBA GHOTRA Date of Service: 09/18/23 Procedure(s): US venous doppler LE RT Accession Number(s): [id number] cc: BUBBA GHOTRA [place] [id number] Patient Name: HARISH EMMANUEL MRN: [id number] date: 1970 Sex: M Assigned Patient Location: US Current Patient Location: US Accession/Order Number: [id number] Exam Date: 09/18/2023 10:45 Report Date: 09/18/2023 11:50 At the request of: BUBBA GHOTRA Procedure: US venous doppler LE RT Ultrasound venous duplex scan right lower extremity CLINICAL: Right lower extremity pain, swelling, redness TECHNIQUE: Lyon-scale, color Doppler and Duplex examination of the rightlower extremity was performed with and without provocative maneuvers. FINDINGS: Comparison: None. Sonographic examination of the right lower extremity deep venous system to include the common femoral, superficial femoral and popliteal veins, demonstrates normal compressibility, color-flow, respiratory variation,and augmentation. The origin of the greater saphenous vein demonstrates normal compression, and there is normal color-flow in the proximal profundafemoral vein. There is normal color-flow in the peroneal, posterior tibial, and anterior tibial veins. US/US venous doppler LE RT IMPRESSION: 1. No deep venous thrombosis in the right lower extremity. Electronically authenticated by: JAVI PADILLA Date: 09/18/2023 11:50 Dictated By: Javi Padilla M.D. Signed By:09/18/23 1153 DD/ 1150 TD/TT: Mineral Industry Teacher: Bubba Ghotra MD IMG US PROCEDURES Final Resu lt documented in this encounter Visit Diagnoses Not on filedocumented in this encounter Care Teams Airline Pilot Flight Instructor Relationship Specialty Start Date End Date Bubba Ghotra MD [address] [place] [address] PCP - General Family Medicine 11/27/22 Bubba Ghotra MD [address] [place] [address] PCP - ACO Reach 12/04/22 08/18/24 Bubba Ghotra MD [address] [place] [address] PCP - ACO Reach 08/26/24 10/13/24 Elaina Burgess PA [address] [facility] [address] [place] [id number] Physician Telecommunications Field Engineer Neurology 12/02/23 Kenna Lockett, [place] [address] [place] [address] Registered Nurse Family Medicine 12/02/23 Stan Win MD [address] [place] [address] Referring Physician Behavioral Health 12/02/23 documented as of this encounter
--- OUTSIDE RECORDS SUMMARY | 2025-01-10 17:08 | XMS_ITS | Encounter Summary ---
Author Organization [facility] Address [address] [place] [address] Care Team Providers Care Biological Chemist Name Role Phone Bubba Ghotra MD Primary Care Provider + [phone] Bubba Ghotra MD Unavailable [phone] Anjali Frausto Unavailable Kenna Lockett RN Unavailable [phone] Stan Win MD Unavailable [phone] Bubba Ghotra MD Unavailable [phone] Encounter Details Date Type Department Care Team (Late st Contact Info) Description 06/23/2024 Clinisync Result Encounter [facility] External Department Unsolicited Anjali Frausto PA [address] [place] [address] Social History Tobacco Use Types [...] How often do you attend chur or jewish services? Never 01/23/2023 Do you belong to any clubs o r organizations such as yazdanism groups, unions, fraternal or athletic groups, or [...] [facility] [address] [facility] [address] [place] [address] Dolly Bowen, ORDER MAKE UP CLERK [address] [place] [address] 01/23/2025 2:00 PM EDT Office Visit [facility] 100 112 [facility] 100 [place] [address] Bubba Ghotra MD 112 [facility] 100 [place] [address] (Fax) documented as of this encounter Procedures Procedure Name Priority Date/Time Associated Diagnosis Comments MR THORACIC SPINE WO/W CON 06/23/2024 5:17 PM EST documented in this encounter Results * MR THORACIC SPINE WO/W CON (06/23/2024 5:17 PM EST) Anatomical Region Laterality Modality Other 06/23/2024 5:17 PM EST Narrative 06/23/2024 5:20 [place] [address] Magnetic Resonance Report Signed Patient: HARISH EMMANUEL MR#: [id number] : 1970 Acct:[id number] Age/Sex: 54 / M ADM Date: 06/23/24 Loc: MRI Attending Dr: Anjali RIGGINS Ordering Physician: Anjali Frausto Date of Service: 06/23/24 Procedure(s): MR thoracic spine wo/w con Accession Number(s): [id number] cc: BUBBA GHOTRA ; Anjali Frausto [place] [id number] Patient Name: HARISH EMMANUEL MRN: [id number] date: 1970 Sex: M Assigned Patient Location: MRI Current Patient Location: MRI Accession/Order Number: [id number] Exam Date: 06/23/2024 15:18 Report Date: 06/23/2024 17:17 At the request of: ANJALI FRAUSTO Procedure: MR thoracic spine wo/w con MR cervical spine wo/w con, MR thoracic spine wo/w con, 06/23/2024 3:18 PM EST INDICATION: Multiple Sclerosis COMPARISON: Prior MRI of the cervical and thoracic spine dated 01/17/2022 TECHNIQUE: Multiplanar, multisequential MRI images of cervical and thoracic spine were obtained without and with contrast. FINDINGS: CERVICAL SPINE: There is normal physiologic cervical lordosis and thoracic kyphosis. The vertebral heights are relatively preserved. There are mild disc osteophyte complex associated with uncovertebral joint arthrosis from C3 to T1. The cervicomedullary junction is unremarkable. There are stable foci of T2 prolongation within the right hemicord at the level of C3-C4 and in the center of hemicord at the level of C6-C7 are noted. No other definite signal abnormality within the spinal cord is noted. No abnormal enhancing lesion is noted. No significant neuroforaminal narrowing or canal stenosis at the level of C2-C3 is noted. At the level of C3-C4, there is mild right neuroforaminal narrowing and no canal stenosis. At the level of C4-C5, there is moderate bilateral neuroforaminal narrowing and no canal stenosis. At the level of C5-C6, there is severe bilateral neuroforaminal narrowing and no canal stenosis. At the level of C6-C7, there is mild bilateral neuroforaminal narrowing and no canal stenosis. Level of C7-T1 is unremarkable. THORACIC SPINE: The conus medullaris is at the level of L1. No signal abnormality within the spinal cord is noted. No significant neuroforaminal narrowing or canal stenoses in the thoracic spine is noted. MR/MR thoracic spine wo/w con IMPRESSION: Stable demyelinating lesions in the cervical spine. No new or active lesion is noted. Mild to moderate degenerative changes of the cervical spine in particular at the level of C4-C5 and C5-C6. No significant neuroforaminal narrowing or canal stenosis in thoracic spine is noted. Electronically authenticated by: OZZIE PRITCHETT Date: 06/23/2024 17:17 Dictated By: Ozzie Pritchett M.D. Signed By: 06/23/241719 DD/ 16 TD/TT: Research Director: Procedure Note Radiology, Radiologist, MD - 06/23/2024 [place] [address] Magnetic Resonance Report Signed Patient: HARISH EMMANUEL LMR#: [id number] : 1970Acct:[id number] Age/Sex: 54 / MADM Date: 06/23/24 Loc: MRI Attending Dr: Anjali RIGGINS Ordering Physician: Anjali Frausto Date of Service: 06/23/24 Procedure(s): MR thoracic spine wo/w con Accession Number(s): [id number] cc: BUBBA GHOTRA Angela PA The [address] [address] Patient Name: HARISH EMMANUEL MRN: [id number] date: 1970 Sex: M Assigned Patient Location: MRI Current Patient Location: MRI Accession/Order Number: [id number] Exam Date: 06/23/2024 15:18 Report Date: 06/23/2024 17:17 At the request of: ANJALI FRAUSTO Procedure: MR thoracic spine wo/w con MR cervical spine wo/w con, MR thoracic spine wo/w con, 06/23/2024 3:18 PMEST INDICATION: Multiple Sclerosis COMPARISON: Prior MRI of the cervical and thoracic spine dated 01/17/2022 TECHNIQUE: Multiplanar, multisequential MRI images of cervical andthoracic spine were obtained without and with contrast. FINDINGS: CERVICAL SPINE: There is normal physiologic cervical lordosis and thoracic kyphosis. The vertebral heights are relatively preserved. There are mild disc osteophyte complex associated with uncovertebral joint arthrosis from C3 to T1. The cervicomedullary junction is unremarkable. There are stable foci of T2 prolongation within the right hemicord at the level of C3-C4 and in the center of hemicord at the level of C6-C7 are noted. No other definite signal abnormality within the spinal cord is noted. Noabnormal enhancing lesion is noted. No significant neuroforaminal narrowing or canal stenosis at the level of C2-C3 is noted. At the level of C3-C4, there is mild right neuroforaminal narrowing and no canal stenosis. At the level of C4-C5, there is moderate bilateral neuroforaminalnarrowing and no canal stenosis. At the level of C5-C6, there is severe bilateral neuroforaminal narrowingand no canal stenosis. At the level of C6-C7, there is mild bilateral neuroforaminal narrowingand no canal stenosis. Level of C7-T1 is unremarkable. THORACIC SPINE: The conus medullaris is at the level of L1. No signal abnormality withinthe spinal cord is noted. No significant neuroforaminal narrowing or canal stenoses in the thoracic spine is noted. MR/MR thoracic spine wo/w con IMPRESSION: Stable demyelinating lesions in the cervical spine. No new or activelesion is noted. Mild to moderate degenerative changes of the cervical spine in particularat the level of C4-C5 and C5-C6. No significant neuroforaminal narrowing or canal stenosis in thoracicspine is noted. Electronically authenticated by: OZZIE PRITCHETT Date: 06/23/2024 17:17 Dictated By: Ozzie Pritchett M.D. Signed By:06/23/24 4814 DD/ 5827 TD/TT: Research Director: us Anjali RIGGINS [facility] Final Result documented in this encounter Visit Diagnoses Not on filedocumented in this encounter Additional Health Concerns Assessment Noted Time PHQ-9 Depression Total Score: 16 024 3:00 PM EDT documented as of this encounter Care Teams Biological Chemist Relationship Specialty Start Date End Date Bubba Ghotra MD [address] [place] [address] PCP - General Family Medicine 11/27/22 Bubba Ghotra MD [address] [place] [address] PCP - ACO Reach 12/04/22 08/18/24 Bubba Ghotra MD [address] [address] PCP - ACO Reach 08/26/24 10/13/24 Anjali Frausto PA [address] [place] [id number] Physician Front Loader Residential Driver Neurology 12/02/23 Kenna Lockett, [place] [address] [place] [address] Registered Nurse Family Medicine 12/02/23 Stan Win MD [address] [place] [address] Referring Physician Behavioral Health 12/02/23 documented as of this encounter
--- OUTSIDE RECORDS SUMMARY | 2025-01-10 17:08 | XMS_ITS | Encounter Summary ---
Author Organization [facility] Address [address] [place] [address] Care Team Providers Care Tourism Radio Presenter Name Role Phone Bubba Cruz MD Primary Care Provider [phone] Bubba Cruz MD Unavailable [phone] Elaina Burgess Unavailable Kenna Lockett RN Unavailable [phone] Stan Win MD Unavailable [phone] Bubba Cruz MD Unavailable [phone] Encounter Details Date Type Department Care Team (Late st Contact Info) Description 09/23/2023 Abstract [facility] [address] [place] [address] Mahnaz Roth MD [address] [place] [address] Social History Tobacco Use Types Packs/Day Years [...] How often do you attend chur or religion services? Never 01/23/2023 Do you belong to any clubs o r organizations such as restoration groups, unions, fraternal or athletic groups, or school groups? No 01/23/2023 Attends Club or Organization Meetings Not on eudard e 01/23/2023 Are you , , di [...] [facility]CO [address] [facility] [address] [place] [address] Dolly Bowen, METAL MODEL BUILDER [address] [place] [address] 01/23/2025 2:00 PM EDT Office Visit [facility] [address] [place] [address] Bubba Cruz MD [address] [place] [address] (Fax) documented as of this encounter Visit Diagnoses Not on filedocumented in this encounter Care Teams Tourism Radio Presenter Relationship Specialty Start Date End Date Bubba Cruz MD [address] [place] [address] (Fax) PCP - General Family Medicine 11/27/22 Bubba Cruz MD [address] [place] [address] (Fax) PCP - ACO Reach 12/04/22 08/18/24 Bubba Cruz MD [address] [place] [address] PCP - ACO Reach 08/26/24 10/13/24 Elaina Burgess PA [address] [place], [place] [id number] Physician Assessment Coordinator Neurology 12/02/23 Kenna Lockett, [place] [address] [place] [address] Registered Nurse Family Medicine 12/02/23 Stan Win MD [address] [place] [address] Referring Physician Behavioral Health 12/02/23 documented as of this encounter
--- OUTSIDE RECORDS SUMMARY | 2025-01-10 17:08 | XMS_ITS | Encounter Summary ---
Author Organization [facility] Address [address] [place] [address] Care Team Providers Care Inserter Name Role Phone Bubba Cruz MD Primary Care Provider [phone] Bubba Cruz MD Unavailable [phone] Elaina Burgess Unavailable Kenna Lcokett RN Unavailable [phone] Stan Win MD Unavailable [phone] Bubba Cruz MD Unavailable [phone] Encounter Details Date Type Department Care Team (Late st Contact Info) Description 10/16/2023 Abstract [facility] [address] [facility] [place] [address] Reginaldo Castelan MD [address] [facility] Social History Tobacco Use Types Packs/Day Years [...] How often do you attend chur or methodist services? Never 01/23/2023 Do you belong to any clubs o r organizations such as worship groups, unions, fraternal or athletic groups, or [...] ACO [address] [place] [address] Dolly Bowen, BRACELET FORM COVERER [address] [place] [address] 01/23/2025 2:00 PM EDT Office Visit [facility] [address] [place] [address] Bubba Cruz MD [address] [facility] 100 [place] [address] (Fax) documented as of this encounter Visit Diagnoses Not on filedocumented in this encounter Care Teams Inserter Relationship Specialty Start Date End Date Bubba Cruz MD [address] [facility] 100 [place] [address] (Fax) PCP - General Family Medicine 11/27/22 Bubba Cruz MD [address] [place] [address] PCP - ACO Reach 12/04/22 08/18/24 Bubba Cruz MD [address] [place] [address] PCP - ACO Reach 08/26/24 10/13/24 Elaina Burgess PA [address] [facility] [address] [place] [address] Physician Hand Meat Salter Neurology 12/02/23 Kenna Lockett, [place] [address] [place] [address] Registered Nurse Family Medicine 12/02/23 Stan Win MD [address] [place] [address] Referring Physician Behavioral Health 12/02/23 documented as of this encounter
--- OUTSIDE RECORDS SUMMARY | 2025-01-10 17:08 | XMS_ITS | Encounter Summary ---
Author Organization [facility] Address [address] [place] [address] Care Team Providers Care Russian Language Professor Name Role Phone Bubba Cruz MD Primary Care Provider [phone] Bubba Cruz MD Unavailable [phone] Elaina Burgess Unavailable Kenna Lockett RN Unavailable [phone] Stan Win MD Unavailable [phone] Bubba Cruz MD Unavailable [phone] Encounter Details Date Type Department Care Team (Late st Contact Info) Description 08/31/2023 Abstract [facility] [address] [place] [address] Lasha Wolfe MD [address] [place] [address] Social History Tobacco Use Types Packs/Day Years [...] you attend [facility] or episcopalian services? Never 01/23/2023 Do you belong to any clubs o r organizations such as bahai groups, unions, fraternal or athletic groups, or [...] [address] [facility] [address] [place] [address] Dolly Bowen, INDUSTRIAL SECURITY ANALYST [address] [place] [address] 01/23/2025 2:00 PM EDT Office Visit [facility] [address] [place] [address] Bubba Cruz MD [address] [place] [address] documented as of this encounter Visit Diagnoses Not on filedocumented in this encounter Care Teams Russian Language Professor Relationship Specialty Start Date End Date Bubba Cruz MD [address] [place] [address] (Fax) PCP - General Family Medicine 11/27/22 Bubba Cruz MD [address] [place] [address] PCP - ACO Reach 12/04/22 08/18/24 Bubba Cruz MD [address] [place] [address] PCP - ACO Reach 08/26/24 10/13/24 Elaina Burgess PA [address] [place] [id number] Physician Parking Meter Servicer Neurology 12/02/23 Kenna Lockett, GRAHAM [address] [place] [address] Registered Nurse Family Medicine 12/02/23 Stan Win MD [address] [place] [address] Referring Physician Behavioral Health 12/02/23 documented as of this encounter
--- OUTSIDE RECORDS SUMMARY | 2025-01-10 17:08 | XMS_ITS | Encounter Summary ---
Author Organization [facility] Address [address] [place] [address] Care Team Providers Care Infection Control Nurse Name Role Phone uBbba Cruz MD Primary Care Provider [phone] Bubba Cruz MD Unavailable [phone] Elaina Burgess Unavailable Kenna Lockett RN Unavailable [phone] Stan Win MD Unavailable [phone] Bubba Cruz MD Unavailable [phone] Encounter Details Date Type Department Care Team (Late st Contact Info) Description 09/15/2023 Abstract [facility] [address] [place] [address] Bubba Cruz MD [address] [facility] [address] [place] [address] (Fax) Social History Tobacco Use [...] How often do you attend chur or spiritism services? Never 01/23/2023 Do you belong to any clubs o r organizations such as latter-day groups, unions, fraternal or athletic groups, or [...] [facility] [address] [facility] [address] [place] [address] Dolly Bowen, ASSISTANT TEACHER PRIMARY [address] [place] [address] 01/23/2025 2:00 PM EDT Office Visit [facility] [address] [place] [address] Bubba Cruz MD [address] [place] [address] documented as of this encounter Visit Diagnoses Not on filedocumented in this encounter Care Teams Infection Control Nurse Relationship Specialty Start Date End Date Bubba Cruz MD [address] [place] [address] PCP - General Family Medicine 11/27/22 Bubba Cruz MD [address] [place] [address] PCP - ACO Reach 12/04/22 08/18/24 Bubba Cruz MD [address] [place] [address] PCP - ACO Reach 08/26/24 10/13/24 Elaina Burgess PA [address] [place] [phone] Physician Airport Electrician Neurology 12/02/23 Kenna Lockett, GRAHAM [address] [place] [address] Registered Nurse Family Medicine 12/02/23 Stan Win MD [address] [place] [address] Referring Physician Behavioral Health 12/02/23 documented as of this encounter
--- OUTSIDE RECORDS SUMMARY | 2025-01-10 17:08 | XMS_ITS | Encounter Summary ---
Author Organization [facility] Address [address] [place] [address] Care Team Providers Care Chief Investigator Name Role Phone Bubba Ghotra MD Primary Care Provider + [phone] Bubba Ghotra MD Unavailable [phone] Anjali Frausto Unavailable Kenna Lockett RN Unavailable [phone] Stan Win MD Unavailable [phone] Bubba Ghotra MD Unavailable [phone] Encounter Details Date Type Department Care Team (Late st Contact Info) Description 06/23/2024 Clinisync Result Encounter [facility] External Department Unsolicited Anjali Frausto PA [address] [place] [address] Social History Tobacco Use Types [...] How often do you attend chur or adventist services? Never 01/23/2023 Do you belong to [...] [facility] [address] [facility] [address] [place] [address] Dolly Bowen, CABLE TELEVISION PROGRAM DIRECTOR [address] [place] [address] 01/23/2025 2:00 PM EDT Office Visit [facility] 100 [address] [facility] 100 [place] [address] Bubba Ghotra MD 112 [facility] 100 [place] [address] (Fax) documented as of this encounter Procedures Procedure Name Priority Date/Time Associated Diagnosis Comments MR CERVICAL SPINE WO/W CON 06/23/2024 5:17 PM EST documented in this encounter Results * MR CERVICAL SPINE WO/W CON (06/23/2024 5:17 PM EST) Anatomical Region Laterality Modality Other 06/23/2024 5:17 PM EST Narrative 06/23/2024 5:20 [place] [address] Magnetic Resonance Report Signed Patient: HARISH EMMANUEL MR#: [id number] : 1970 Acct:[id number] Age/Sex: 54 / M ADM Date: 06/23/24 Loc: MRI Attending Dr: Anjali RIGGINS Ordering Physician: Anjali Frausto Date of Service: 06/23/24 Procedure(s): MR cervical spine wo/w con Accession Number(s): [id number] cc: BUBBA GHOTRA ; Anjali Frausto [place] [id number] Patient Name: HARISH EMMANUEL MRN: [id number] date: 1970 Sex: M Assigned Patient Location: MRI Current Patient Location: MRI Accession/Order Number: [id number] Exam Date: 06/23/2024 15:18 Report Date: 06/23/2024 17:17 At the request of: ANJALI FRAUSTO Procedure: MR cervical spine wo/w con MR cervical spine wo/w [...] in the thoracic spine is noted. MR/MR cervical spine wo/w con IMPRESSION: Stable demyelinating lesions [...] M.D. Signed By: 06/23/241719 DD/ 16 TD/TT: Inventory Technician: Procedure Note Radiology, Radiologist, MD - 06/23/2024 [place] [address] Magnetic Resonance Report Signed Patient: HARISH EMMANUEL LMR#: [id number] : 1970Acct:[id number] Age/Sex: 54 / MADM Date: 06/23/24 Loc: MRI Attending Dr: Anjali RIGGINS Ordering Physician: Anjali Frausto Date of Service: 06/23/24 Procedure(s): MR cervical spine wo/w con Accession Number(s): [id number] cc: BUBBA GHOTRA Angela PA The [address] [address] Patient Name: HARISH EMMANUEL MRN: [id number] date: 1970 Sex: M Assigned Patient Location: MRI Current Patient Location: MRI Accession/Order Number: [id number] Exam Date: 06/23/2024 15:18 Report Date: 06/23/2024 17:17 At the request of: ANJALI FRAUSTO Procedure: MR cervical spine wo/w con MR cervical spine wo/w [...] in the thoracic spine is noted. MR/MR cervical spine wo/w con IMPRESSION: Stable demyelinating lesions in the cervical spine. No new or activelesion is noted. Mild to moderate degenerative changes of the cervical spine in particularat the level of C4-C5 and C5-C6. No significant neuroforaminal narrowing or canal stenosis in thoracicspine is noted. Electronically authenticated by: OZZIE PRITCHETT Date: 06/23/2024 17:17 Dictated By: Ozzie Pritchett M.D. Signed By:06/23/24 7545 DD/ 659 TD/TT: Inventory Technician: us Anjali RIGGINS [facility] Final Result documented in this encounter Visit Diagnoses Not on filedocumented in this encounter Additional Health Concerns Assessment Noted Time PHQ-9 Depression Total Score: 16 024 3:00 PM EDT documented as of this encounter Care Teams Chief Investigator Relationship Specialty Start Date End Date Bubba Ghotra MD [address] [place] [address] PCP - General Family Medicine 11/27/22 Bubba Ghotra MD [address] [place] [address] PCP - ACO Reach 12/04/22 08/18/24 Bubba Ghotra MD [address] [place] [address] PCP - ACO Reach 08/26/24 10/13/24 Anjali Frausto PA [address] [facility] [address] [place] [id number] Physician Air Brake Man Neurology 12/02/23 Kenna Lockett, GRAHAM [address] [place] [address] Registered Nurse Family Medicine 12/02/23 Stan Win MD [address] [place] [address] Referring Physician Behavioral Health 12/02/23 documented as of this encounter
--- OUTSIDE RECORDS SUMMARY | 2025-01-10 17:08 | XMS_ITS | Encounter Summary ---
Author Organization [facility] Address [address] [place] [address] Care Team Providers Care First Aid Nurse Name Role Phone Bubba Cruz MD Primary Care Provider + [phone] Elaina Burgess Unavailable Kenna Lockett RN Unavailable [phone] Stan Win MD Unavailable [phone] Encounter Details Date Type Department Care Team (Late st Contact Info) Description 01/10/2025 Orders Only [facility] [address] [place] [address] Bubba Cruz MD [address] [place] [address] Social History Tobacco Use Types Packs/Day Years [...] week 01/23/2023 How often do you attend [facility] or samaritan services? Never 01/23/2023 Do you belong to any clubs o r organizations such as anglican groups, unions, fraternal or athletic groups, or [...] [facility] [address] [facility] [address] [place] [address] Dolly Bowen, FRAUD REPRESENTATIVE [address] [facility] [place] [address] 01/23/2025 2:00 PM EDT Office Visit [facility] [address] [facility] [address] [place] [address] Bubba Cruz MD [address] [facility] [address] [place] [address] (Fax) documented as of this encounter Visit Diagnoses Not on filedocumented in this encounter Additional Health Concerns Assessment Noted Time PHQ-9 Depression Total Score: 16 024 3:00 PM EDT documented as of this encounter Care Teams First Aid Nurse Relationship Specialty Start Date End Date Bubba Cruz MD [address] [place] [address] (Fax) PCP - General Family Medicine 11/27/22 Elaina Burgess PA [address] [facility] [address] [place] [address] Physician Used Car Manager Neurology 12/02/23 Kenna Lockett, GRAHAM [address] [place] [address] Registered Nurse Family Medicine 12/02/23 Stan Win MD [address] [place] [address] Referring Physician Behavioral Health 12/02/23 documented as of this encounter
--- OUTSIDE RECORDS SUMMARY | 2025-01-10 17:08 | XMS_ITS | Encounter Summary ---
Author Organization [facility] Address [address] [place] [address] Care Team Providers Care Concert Manager Name Role Phone Bubba Cruz MD Primary Care Provider + [phone] Bubba Cruz MD Unavailable [phone] Elaina Burgess Unavailable Kenna Lockett RN Unavailable [phone] Stan Win MD Unavailable [phone] Bubba Cruz MD Unavailable [phone] Encounter Details Date Type Department Care Team (Late st Contact Info) Description 09/14/2023 Orders Only [facility] [address] [facility] [place] [address] Bubba Cruz MD 112 [facility] [address] [place] [address] (Fax) Social History Tobacco Use [...] How often do you attend chur or gnosticism services? Never 01/23/2023 Do you belong to any clubs o r organizations such as catholic groups, unions, fraternal or athletic groups, or [...] [facility] [address] [facility] [address] [place] [address] Dolly Bowen, CAR CONSTRUCTION SUPERINTENDENT [address] [place] [address] 01/23/2025 2:00 PM EDT Office Visit [facility] [address] [place] [address] Bubba Cruz MD [address] [place] [address] documented as of this encounter Visit Diagnoses Not on filedocumented in this encounter Care Teams Concert Manager Relationship Specialty Start Date End Date Bubba Cruz MD [address] [place] [address] (Fax) PCP - General Family Medicine 11/27/22 Bubba Cruz MD [address] [place] [address] PCP - ACO Reach 12/04/22 08/18/24 Bubba Cruz MD [address] [place] [address] PCP - ACO Reach 08/26/24 10/13/24 Elaina Burgess PA [address] [place] [id number] Physician Software Deployment Engineer Neurology 12/02/23 Kenna Lockett, GRAHAM [address] [place] [address] Registered Nurse Family Medicine 12/02/23 Stan Win MD [address] [place] [address] Referring Physician Behavioral Health 12/02/23 documented as of this encounter
[2025-01-10 17:47] LABS: Alanine Aminotransferase 38 U/L (16-63); Albumin Globulin Ratio 1.3; Albumin Level 3.7 g/dL (3.4-5.0); Alkaline Phosphatase 76 U/L (46-116); Anion Gap 9.9; Aspartate Amino Transferase 28 U/L (15-37); Blood Urea Nitrogen 9.0 mg/dL (7.0-18.0); Calcium 9.0 mg/dL (8.5-10.1); Carbon Dioxide 34.0 mmol/L (21.0-32.0); Chloride 102 mmol/L (98-107); Cholesterol 183 mg/dL (<=200); Estimated GFR (African America >60 (>=60 mL/min/1.73m^2); Estimated GFR (Non-African Ame >60 (>=60 mL/min/1.73m^2); Globulin 2.8 g/dL; Glucose 100 mg/dL (74-106); HDL Cholesterol 72 mg/dL (40-60); Potassium 3.9 mmol/L (3.5-5.1); Sodium 142 mmol/L (136-145); Total Protein 6.5 g/dL (6.4-8.2); Triglycerides 104 mg/dL (<=150); VLDL CHOLESTEROL 20.8 mg/dL
== END 2025-01-10 17:03 | disposition home or self-care (01) ==
PROVIDERS: PCP Family Medicine; Visit Provider Family Medicine
DX: E46 Unspecified protein-calorie malnutrition (principal); E78.5 Hyperlipidemia, unspecified; I10 Essential (primary) hypertension
CPT/HCPCS: 36415; 80053; 80061

== ENCOUNTER 2025-01-19 13:37 | Outpatient (OUT) | payer MEDICARE, MEDICAID, SELFPAY ==
--- OUTSIDE RECORDS SUMMARY | 2025-01-11 11:00 | XMS_ITS | Encounter Summary ---
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 Name Role Phone Bubba Cruz MD Primary Care Provider [phone] Elaina Burgess Unavailable Kenna Lockett RN Unavailable [phone] Stan Win MD Unavailable [phone] Reason for Visit * Reason Comments Medicare Annual Wellness Visit [place] t Encounter Details Date Type Department Care Team (Latest Contact Info) Description 01/11/2025 11:00 AM EDT Office Visit [facility] [address] [place] [id number] Dolly Bowen, ELEVATOR EXAMINER [phone] [place] [address] Medicare annual wellness visit, subsequent (Primary Dx); Chronic obstructive pulmonary disease, unspecified COPD type (HCC); Panlobular emphysema (HCC); Simple chronic bronchitis (HCC); Chronic hypoxemic respiratory failure (HCC); Primary hypertension ; Relapsing remitting multiple sclerosis (HCC); Venous insufficiency; Gastroesophageal reflux disease without esophagitis; BPH with obstruction/lower urinary tract symptoms; Elevated PSA; Urinary incontinence without sensory awareness; Feeling of incomplete bladder emptying; Protein-calorie malnutrition, moderate (HHS-HCC); Anxiety associated with depression; Recurrent major depressive disorder, in partial remission ; Mixed hyperlipidemia ; Marijuana smoker; Cigarette smoker; Chronic pain syndrome; Vertigo of central origin; Primary insomnia; Impotence of organic origin; Generalized muscle weakness; Gait instability; Underweight Social History Tobacco Use Types Packs/Day Years Used Date Smoking Tobacco: Some Days Cigarettes 1.5 15 Started: 08/18/2008; Last attempted to quit: 08/18/2023 Smokeless Tobacco: Never Tobacco Cessation:Ready to Q uit: Not Asked; Counseling Given: Not Answered Comments:21-30 cigs/day - not currently smoking 11/03/23 01/11/25 - states smoking 1-2 cigs about 2 days out of 7 Alcohol Use Standard Drinks/Week Comments Never 0 [...] 01/23/2023 How often do you attend chur ch or jainism services? Never 01/23/2023 Do you belong to any clubs o r organizations such as tenriism groups, unions, fraternal or athletic groups, or [...] on file documented as of this encounter Last Filed Vital Signs Vital Sign Reading Time Taken Comments Blood Pressure 122/60 01/11/2025 12:03 PM EDT Pulse 62 01/11/2025 12:03 PM EDT Temperature 36.3 C (97.3 F) 01/11/2025 12:03 PM EDT Respiratory Rate - - Oxygen Saturation 92% 01/11/2025 12:03 PM EDT Inhaled Oxygen Concentration - - Weight - - Height - - Body Mass Index - - documented in this encounter Progress Notes * Dolly Bowen NP - 01/11/2025 11:00 AM EDT Images from the original note were not included. Subjective Harish Emmanuel is a 54 y.o. male who presents for an annual Medicare wellness visit. He is beingseen today in his home due to his mobility problems that can make it difficult for him to leave [facility]. Pt lives at home with his Preventative Care discussed with pt - due to smoking history, pt is due for lung cancer screening, however, he wishes to wait on this until after his anticipated urology surgical procedure. Pt also reports that he has a pending referral for pulmonology as his urologist would like pt to have pulmonary clearance prior to his surgery. Pt completed his lab draw yesterday at [facility]. Pt denies any needs or concerns during today's visit. Medicare Annual Visit Preventative Care Summary - Date last done Colon Cancer Screen - Due 2026 PSA - 08/13/21 - follows with urology AAA Screen - not applicable at this time - pt is only 54 Lung Cancer Screen - will wait Vision - within past few months Dentist - none Lipid - 01/10/25 Diabetes - CMP 01/10/25 Patient Care Team: Bubba Cruz MD as PCP - General (Family Medicine) GILSON James as Physician Coal Weigher (Neurology) Kenna Lockett RN as Registered Nurse (Family Medicine) Stan Win MD as Referring Physician (Behavioral Health) Other Providers: Urology - Dr. Godoy Neurology - Dr. Dumont [facility] - Dr. Win Previously saw Michael Valentino - saw who took over for him. [place] [facility] [place]rena Roth [place] Depression Screen PHQ2 Q1: Over the past two weeks, have you felt down, depressed or hopeless? 0 - Not at all Q2: Over the past two weeks, have you felt little interest or pleasure in doing things? 3 - Nearly every day - d/t MS and the heat not mixing well Score: 3 *Score of 3 or more is positive, complete PHQ9 PHQ9 (not applicable is score <3 for above questions) Over the past two weeks have you: Q3: Had trouble falling or staying asleep or sleeping too much? 2 - More than half the days - feels d/t infusions and medications Q4: Feeling tired or having little energy: 3 - Nearly every day - d/t MS Q5: Had a poor appetite or overeating? 0 - Not at all Q6: Feeling bad about yourself, or that you are a failure or you have let yourself or your family down? 0 - Not at all Q7: Trouble Concentrating on things such as watching TV or reading the newspaper? 1 - Several days Q8: Moving or speaking so slowly that other people could have noticed, or the opposite - being so fidgety or restless that you have been moving around a lot more than usual? 0 - Not at all Q9: Thoughts that you would be better off or hurting yourself in some way? 0 - Not at all Score: 9 1-4 = minimal depression 5-9 = mild depression 10-14 = moderate depression 15-19 = moderately severe depression 20-27 = severe depression Vision and Hearing Screen: Vision- has glasses, but states vision is still poor with use of glasses - states vision is worsening d/t MS - last eye appt was a few months ago and he declined a referral to specialist Hearing - normal Fall Risk Assessment Have you fallen two or more times in the past year? Yes Are you afraid of falling?: Yes - when he is alone Does the patient require any assistive devices? Yes - rollator, power wheelchair Was the patient's timed Up & Go test unsteady or longer than 30 seconds? no Health Risk Assessment In your present state of health, do you have any difficulty performing the following activities: - Preparing food?: No - Eating?: No - Grocery shopping? Yes - Doing your own housework without help? States no, can manage but slow - Trouble using the phone? No - Bathing yourself?: No - Getting dressed?: No - Using the toilet?:No - Moving around from place to place?: Yes - d/t MS Do you exercise for about 20 minutes 3 or more days a week? no Do you manage your own money, credit cards and accounts, pay bills and taxes? yes Do you manage your own medicines without help? yes - sets pills up weekly - discussed using pill pack pharmacy Do you still drive? no If you need help with any of the above, is someone available to help you? yes Do you feel safe in your current home environment? yes Are you having pain that interferes with your ability to care for yourself or socialize? No - does not affect care for himself, but does have an impact on being able to socialize Are you a current smoker? Yes Do you drink alcohol? No How confident are you that you can control and manage most of your health problems? Fairly confident Advanced Care Planning Do you have a Living Will? No Do you have a DPOA for Healthcare? No Code Status? Unsure Cognitive Screening Cognitive concerns: No overt deficiency is apparent by direct observation Three word Registration: donna [place] Clock Drawing: Normal Clock (2) Three word recall: 2/3 correct (2) Total Score: 4 Comprehensive Medical and Social History: Patient Active Problem List Diagnosis Active substance abuse ([facility]) Anxiety associated with depression Cigarette smoker Cyclic vomiting syndrome Difficulty in walking, not elsewhere classified Gait instability Gastritis Gastroesophageal reflux disease without esophagitis Generalized muscle weakness Impotence of organic origin Insomnia Mixed hyperlipidemia Panlobular emphysema ([facility]) Post-void dribbling Primary hypertension Recurrent major depressive disorder, in partial remission Relapsing remitting multiple sclerosis ([facility]) Simple chronic bronchitis ([facility]) Underweight Urinary incontinence without sensory awareness Vertigo of central origin Polypharmacy Chronic hypoxemic respiratory failure ([facility]) Protein-calorie malnutrition, moderate ([facility]) Venous insufficiency Marijuana smoker Chronic pain syndrome BPH with obstruction/lower urinary tract symptoms COPD (chronic obstructive pulmonary disease) ([facility]) Elevated PSA Feeling of incomplete bladder emptying Past Medical History: Diagnosis Date Anxiety Asthma ([facility]) Body mass index (BMI) of 21.0 to 21.9 in adult normal BMI BPH (benign prostatic hyperplasia) Cervical radiculopathy Cigarette smoker 12/01/2022 COPD (chronic obstructive pulmonary disease) ([facility]) Depression ED (erectile dysfunction) Emphysema lung ([facility]) GERD (gastroesophageal reflux disease) Headache Herpes simplex 02/08/2008 Hypertension Mononeuritis of lower limb 02/19/2012 MS (mitral stenosis) Multiple sclerosis (HCC) 02/17/2008 Neuromuscular disorder ([facility]) Sleep disturbance 03/27/2011 Smoker Past Surgical History: Procedure Laterality Date CHOLECYSTECTOMY KNEE SURGERY Left 04/2013 arthroscopy - [place] OTHER SURGICAL HISTORY 11[place] [facility] [place],CHOLECYSTECTOMY 11/16/2013 TONSILLECTOMY WISDOM TOOTH EXTRACTION Allergies Allergen Reactions Effexor [Venlafaxine] Other Reaction(s): saw spots, and felt like hallucination Paroxetine Hcl Rash Other Reaction(s): rash Social History Socioeconomic History Marital status: Spouse name: Not on file Number of children: Not on file Years of education: Not on file Highest education level: High school graduate Occupational History Occupation: Unemployed Tobacco Use Smoking status: Some Days Current packs/day: 0.00 Average packs/day: 1.5 packs/day for 15.0 years (22.5 ttl pk-yrs) Types: Cigarettes Start date: 08/18/2008 Last attempt to quit: 08/18/2023 Years since quittin.4 Smokeless tobacco: Never Tobacco comments: 21-30 cigs/day - not currently smoking 11/03/23 01/11/25 - states smoking 1-2 cigs about 2 days out of 7 Vaping Use Vaping status: Never Used Substance and Sexual Activity Alcohol use: Never Comment: Caffiene intake - 3-4 cans Pepsi daily Drug use: Yes Types: Marijuana Comment: Medical Marijuan gummies occasionally Sexual activity: Not Currently Partners: Female Other Topics Concern Not on file Social History Narrative Exercise : 3-4 times per week Home smoke detector use : Smoke detector Type of household : well water , gas heat Social Drivers of Health Financial Resource Strain: High Risk (12/01/2022) Overall Financial Resource Strain (CARDIA) Difficulty of Paying Living Expenses: Very hard Food Insecurity: High Risk (05/18/2024) Received from [facility] SDOH Screening In the past 2 months, did you or others you live with eat smaller meals or skip meals because you didn't have money for food?: Yes Transportation Needs: High Risk (05/18/2024) Received from [facility] SDOH Screening Has lack of transportation kept you from medical appointments, meetings, work or from getting things needed for daily living? choose all that apply.: Yes, it has kept me from non-medical meetings, appointments, work or from getting things that i need Physical Activity: Inactive (01/23/2023) Exercise Vital Sign Days of Exercise per Week: 0 days Minutes of Exercise per Session: 0 min Stress: Not on file Social Connections: Socially Isolated (01/23/2023) Social Connection and Isolation Panel [NHANES] Frequency of Communication with Friends and Family: More than three times a week Frequency of Social Gatherings with Friends and Family: More than three times a week Attends Rastafarian Services: Never Active Member of Clubs or Organizations: No Attends Club or Organization Meetings: Not on file Marital Status: Intimate Partner Violence: Unknown (12/01/2022) Humiliation, Afraid, Rape, and Kick questionnaire Fear of Current or Ex-Partner: Not on file Emotionally Abused: Not on file Physically Abused: No Sexually Abused: No Housing Stability: Unknown (01/23/2023) Housing Stability Vital Sign Unable to Pay for Housing in the Last Year: Not on file Number of Places Lived in the Last Year: 1 Unstable Housing in the Last Year: Not on file Current Outpatient Medications Medication Instructions albuterol 2.5 mg, Nebulization, Every 6 hours PRN ARIPiprazole (ABILIFY) 5 mg, Daily baclofen (LIORESAL) 20 mg, Oral, 3 times daily budesonide-formoterol (Symbicort) 160-4.5 MCG/ACT inhaler 2 puffs, Inhalation, 2 times daily Cannabinoids (medical cannabis) 1 each, Daily PRN clonazePAM (KLONOPIN) 1 mg, 2 times daily Docusate Sodium (DSS) 100 MG capsule 2 capsules, Daily DULoxetine (Cymbalta) [address] capsule 2 capsules, Daily ipratropium (Atrovent) 0.06 % nasal spray 2 sprays, Each Nostril, 2 times daily losartan (COZAAR) 100 mg, Oral, Daily meclizine (ANTIVERT) 25 mg, 3 times daily PRN metoprolol tartrate (LOPRESSOR) 75 mg, Oral, 2 times daily naloxone (NARCAN) 4 mg, As needed Nebulizers (Compressor/Nebulizer) misc Use 4 times per day regularly and every 4 hours as needed for shortness of breath and wheezing as directed Ocrevus 300 MG/10ML solution Every 6 months ondansetron ODT (ZOFRAN-ODT) 4 mg, Oral, Every 8 hours PRN oxyCODONE (ROXICODONE) 15 mg, Every 6 hours PRN oxygen (O2) gas Inhale oxygen via portable oxygen concentrator and nasal canula setting of 3 To maintain pulse ox saturation of 92% oxygen (O2) 2-3 L/min, Continuous pantoprazole (PROTONIX) 40 mg, Oral, 2 times daily pregabalin (LYRICA) 200 mg, Oral, 3 times daily primidone (MYSOLINE) 100 mg, Oral, Nightly promethazine (PHENERGAN) 25 mg, Every 6 hours PRN QUEtiapine (SEROQUEL) 50-100 mg, Oral, Nightly, May repeat in about 4 hours upon awakening senna (Senokot) 8.6 MG tablet 2 tablets, 2 times daily PRN sildenafil (VIAGRA) 100 mg, Oral, Daily PRN sodium chloride 0.9 % nebulizer solution 3 mL, Nebulization, Every 4 hours PRN spironolactone (ALDACTONE) 50 mg, Oral, Daily tamsulosin (FLOMAX) 0.4 mg, Daily Review of Systems Constitutional: Negative. HENT: Negative. Eyes: Negative. Respiratory: Negative. Cardiovascular: Negative. Gastrointestinal: Negative. Genitourinary: Incontinence Musculoskeletal: Positive for gait problem. MS Skin: Negative. Psychiatric/Behavioral: Negative. Hematological: Negative. Endocrine: Negative. Allergic/Immunologic: Negative. Objective BP 122/60 Pulse 62 Temp 97.3 ??F SpO2 92% There is no height or weight on file to calculate BMI. Physical Exam Vitals reviewed. Constitutional: General: He is not in acute distress. Appearance: Normal appearance. HENT: Head: Normocephalic. Nose: Nose normal. No congestion or rhinorrhea. Mouth/Throat: Mouth: Mucous membranes are moist. Pharynx: Oropharynx is clear. No oropharyngeal exudate or posterior oropharyngeal erythema. Eyes: Extraocular Movements: Extraocular movements intact. Conjunctiva/sclera: Conjunctivae normal. Pupils: Pupils are equal, round, and reactive to light. Cardiovascular: Rate and Rhythm: Normal rate and regular rhythm. Pulses: Normal pulses. Pulmonary: Effort: Pulmonary effort is normal. No respiratory distress. Breath sounds: Normal breath sounds. No wheezing, rhonchi or rales. Abdominal: General: Bowel sounds are normal. There is no distension. Palpations: Abdomen is soft. Tenderness: There is no abdominal tenderness. There is no guarding. Musculoskeletal: General: Normal range of motion. Cervical back: Normal range of motion and neck supple. Right lower leg: Edema (nonpitting) present. Left lower leg: No edema. Lymphadenopathy: Cervical: No cervical adenopathy. Skin: General: Skin is warm and dry. Neurological: General: No focal deficit present. Mental Status: He is alert and oriented to person, place, and time. Mental status is at baseline. Gait: Gait abnormal. Psychiatric: Mood and Affect: Mood normal. Behavior: Behavior normal. Thought Content: Thought content normal. Judgment: Judgment normal. The following health maintenance schedule was reviewed with the patient and provided in printed form in the after-visit summary: Health Maintenance Topic Date Due Lung Cancer Screening Shared Decision Making Never done Medicare Annual Wellness (AWV) 12/22/2024 Colorectal Cancer Screening 04/19/2027 Influenza Vaccine Discontinued During the course of the visit the patient was educated and counseled about appropriate screening and preventive services including: Influenza vaccine Pneumococcal vaccine Tdap vaccine Shingles Vaccine RSV vaccine Colon Cancer Screening Prostate Cancer Screening Cardiovascular Screening Diabetes Screening Abdominal Aneurysm Screening Glaucoma/Vision Screening CT Low Dose Lung Screening Smoking Cessation Counseling Advanced directives: has NO advanced directive - add't info requested. [email or web address]/Plan 1. Medicare annual wellness visit, subsequent (Primary) Patient here for annual medicare wellness visit. Demographics were updated. Self-assessment was completed. Past medical, family, and social history were updated. The medication list, including supplements being taken, was updated. A list of other current medical providers was established/updated. Time was spend discussing health maintenance issues, ordering proper testing if applicable, and a schedule was provided regarding recommended screening. We discussed safety issues and fall risk. Depression screening was completed and addressed. Fall screening was completed and addressed. Cognitive function was assessed by direct observation and assessment of ability to perform ADL's and IADL's was done. We also discussed advanced directives and code status. Discussed healthy living and maintenance of a healthy weight. Will continue BMI at in office visits. Major risk factors for chronic diseaseincluding family history were discussed and a list was provided with the care plan. 2. Chronic obstructive pulmonary disease, unspecified COPD type (HCC) This is a chronic medical condition that is stable since last assessment. No changes in treatment are suggested at this time. Per pt - he has a pending pulmonology referral for a clearance appt prior to surgery by urology 3. Panlobular emphysema (HCC) This is a chronic medical condition that is stable since last assessment. No changes in treatment are suggested at this time. 4. Simple chronic bronchitis (HCC) This is a chronic medical condition that is stable since last assessment. No changes in treatment are suggested at this time. 5. Chronic hypoxemic respiratory failure (HCC) This is a chronic medical condition that is stable since last assessment. No changes in treatment are suggested at this time. 6. Primary hypertension This is a chronic medical condition that is stable since last assessment. No changes in treatment are suggested at this time. 7. Relapsing remitting multiple sclerosis (HCC) Follows with neurology 8. Venous insufficiency This is a chronic medical condition that is stable since last assessment. No changes in treatment are suggested at this time. 9. Gastroesophageal reflux disease without esophagitis This is a chronic medical condition that is stable since last assessment. No changes in treatment are suggested at this time. 10. BPH with obstruction/lower urinary tract symptoms Follows with urology 11. Elevated PSA Follows with urology 12. Urinary incontinence without sensory awareness Follows with urology 13. Feeling of incomplete bladder emptying Follows with urology 14. Protein-calorie malnutrition, moderate (HHS-HCC) This is a chronic medical condition that is stable since last assessment. No changes in treatment are suggested at this time. 15. Anxiety associated with depression Follows with behavioral health 16. Recurrent major depressive disorder, in partial remission Follows with behavioral health 17. Mixed hyperlipidemia This is a chronic medical condition that is stable since last assessment. No changes in treatment are suggested at this time. 18. Marijuana smoker 19. Cigarette smoker Tobacco cessation was discussed at today's visit. Education was provided on the increased risk of heart disease, stroke, cancer, and lung disease with ongoing tobacco abuse. Medications that may helpwith quitting by providing a reduction in tobacco withdrawal symptoms and cravings were discussed. The ultimate goal is to stop smoking and we discussed ways to accomplish this. Resources given regarding tobacco cessation. The patient does not wish to quit at this time. Patient is to call primary care provider's office if he decides he would like to quit. 20. Chronic pain syndrome Follows with palliative medicine 21. Vertigo of central origin Follows with neurology 22. Primary insomnia This is a chronic medical condition that is stable since last assessment. No changes in treatment are suggested at this time. 23. Impotence of organic origin Follows with urology 24. Generalized muscle weakness Follows with neurology - due to MS 25. Gait instability Follows with neurology - due to MS 26. Underweight This is a chronic medical condition that is stable since last assessment. No changes in treatment are suggested at this time. LIFESTYLE INTERVENTIONS Patient Name: Harish Emmanuel Date of : 1970 Date: 01/17/2025 It has been determined that you may need additional information and a possible referral for a healthier lifestyle. NUTRITION: A healthy diet is one that provides you with essential nutrients from all basic food groups. A healthy diet provides adequate energy while maintaining a healthy weight. A healthy diet reduces risk ofchronic disease. Certain diseases and digestive problems will require more education by someone that is especially trained in nutrition. You may want to make an appointment to discuss your options with your physician. SMOKING CESSATION: Smoking is a habit as well as an addiction. Know your smoking triggers such as: stress, bored, lonely, taste, and prevent weight gain. Smoking will actually limit your sense of smell and can make youat greater risk for infections. It is a common cause for vision impairments. Smoking increases yourrisk of jarrett cancer. Nicotine replacement products are available. You may want to make an appointment with your physician to discuss safe options. PHYSICAL ACTIVITY: The benefits from regular activity is never too late. Regular physical activity can build muscles and endurance. A chemical process in the brain is altered with physical activity that can enhance your energy level. Inactivity can lead to the risk for you to develop coronary artery disease as well as other risk factors such as: hypertension, diabetes, sleep apnea, and obesity. If you have not beenphysically active, you will need to start gradual and tailor the activities to your needs. Your physician can be a resource to direct you on how to tailor your activities so you can avoid injuries and educate you on the activities that benefit you. You may want to make an appointment with your physician to discuss safe options. IF YOU ARE AT RISK FOR DEPRESSION: *Connect with others - limit the time you are alone *Plan and prepare healthy meals *Attend regular social events *Volunteer time to help others *Learn new skills *Get out into the world, go places, do things *Take care of a pet or get a pet *Exercise *Join social groups - support groups *Realize you are not alone Do not hesitate to make a follow up appointment with your physician to discuss further options if you feel it is necessary. IF YOU ARE AT RISK FOR FALLS: *Remove all throw rugs *Ensure clear pathways throughout your home *All stairs need to have hand rails *Grab bars are needed in bathrooms *Assure adequate lighting *Proper fitting shoes are a must *Floors are not to be polished or slippery *Obtain an alert system to summon assistance in case of a fall *Exercise to increase mobility and decrease weakness of lower extremities *Be aware of your medication side effects *Obtain regular vision check ups *Obtain regular hearing evaluations *Rise slowly from the be or chair to avoid dizziness *If using a cane, walking stick, walker, or any other ambulation assisting device, proper training using the device is suggested *With frequent urination or bowel, consider obtaining a bedside commode or using products such as depends. Do not hesitate to make a follow up appointment with your physician to discuss further options if you feel it is necessary. IF YOU ARE AT RISK FOR MEMORY CHALLENGES: *Minimize distractions and control stimulation in the surrounding environment such as noise. It can become difficult to maintain focus and concentrate at times *Simplify home decorations, remove clutter, and keep familiar objects nearby *Use calendars and clocks to help with orientation *If diabetic, tight control of glucose levels *Stay calm, even though communication may become frustrating *Perform intellectually stimulating activities, such as: crossword puzzles, social interactions, and chess *Exercise *Educate yourself and loved ones *Control weight gain *Emotional support can be beneficial *Join support groups Do not hesitate to make a follow up appointment with your physician to discuss further options if you feel it is necessary. documented in this encounter Plan of Treatment Upcoming Encounters Date Type Department Care Team (Late st Contact Info) Description 01/23/2025 2:00 PM EDT Office Visit [facility] [address] [place] [address] Bubba Cruz MD [address] [place] [address] documented as of this encounter Visit Diagnoses Diagnosis Medicare annual wellness visit, subsequent- Primary Chronic obstructive pulmonary disease, unspecified COPD type (HCC) Panlobular emphysema (HCC) Other emphysema Simple chronic bronchitis (HCC) Simple chronic bronchitis Chronic hypoxemic respiratory failure (HCC) Chronic respiratory failure Primary hypertension Unspecified essential hypertension Relapsing remitting multiple sclerosis (HCC) Multiple sclerosis Venous insufficiency Unspecified venous (peripheral) insufficiency Gastroesophageal reflux disease without esophagitis Esophageal reflux BPH with obstruction/lower urinary tract symptoms Elevated PSA Elevated prostate specific antigen (PSA) Urinary incontinence without sensory awareness Incontinence without sensory awareness Feeling of incomplete bladder emptying Protein-calorie malnutrition, moderate (HHS-HCC) Malnutrition of moderate degree Anxiety associated with depression Dysthymic disorder Recurrent major depressive disorder, in partial remission Mixed hyperlipidemia Mixed hyperlipidemia Marijuana smoker Cigarette smoker Tobacco use disorder Chronic pain syndrome Vertigo of central origin Primary insomnia Persistent disorder of initiating or maintaining sleep Impotence of organic origin Generalized muscle weakness Muscle weakness (generalized) Gait instability Abnormality of gait Underweight Preoperative evaluation to rule out surgical contraindication Post-void dribbling Urinary incontinence without sensory awareness Incontinence without sensory awareness Relapsing remitting multiple sclerosis (HCC) Multiple sclerosis Polypharmacy Issue of repeat prescriptions Marijuana smoker Cigarette smoker Tobacco use disorder documented in this encounter Additional Health Concerns Assessment Noted Time PHQ-9 Depression Total Score: 16 024 3:00 PM EDT documented as of this encounter Care Teams Forklift Material Handler Relationship Specialty Start Date End Date Bubba Cruz MD [address] [address] (Fax) PCP - General Family Medicine 11/27/22 Elaina Burgess PA 5433 [facility] [address] [place] [address] Physician Coal Weigher Neurology 12/02/23 Kenna Lockett, GRAHAM [address] [place] [address] Registered Nurse Family Medicine 12/02/23 Stan Win MD [address] [place] [address] Referring Physician Behavioral Health 12/02/23 documented as of this encounter
--- OUTSIDE RECORDS SUMMARY | 2025-01-19 13:39 | XMS_ITS | Encounter Summary ---
Author Organization [facility] Address [address] [place] [address] Care Team Providers Care Bagger And Stock Handler Helper Name Role Phone Bubba Cruz MD Primary Care Provider [phone] Elaina Burgess Unavailable Kenna Lockett RN Unavailable [phone] Stan Win MD Unavailable [phone] Encounter Details Date Type Department Care Team (Late st Contact Info) Description 01/10/2025 Clinisync Result Encounter [facility] External Department Unsolicited Bubba Cruz MD [address] [place] [address] Social History Tobacco Use Types Packs/Day Years [...] How often do you attend chur or mormonism services? Never 01/23/2023 Do you belong to any clubs o r organizations such as bahai groups, unions, fraLegalGuru or athletic groups, or school groups? No [...] CI [address] [place] [address] Bubba Cruz MD [address] [place] [address] documented as of this encounter Procedures Procedure Name Priority Date/Time Associated Diagnosis Comments [facility] CMP (CMP) (FOR REMOTE [facility] USE) Routine 01/10/2025 5:17 PM EDT ALL LIPID PROFILE (FASTING) Routine 01/10/2025 5:17 PM EDT documented in this encounter Results * (ABNORMAL) ALL LIPID PROFILE (FASTING) (01/10/2025 5:17 PM EDT) TRIGLYCERIDES 104 <=150 mg/dL TBH CHOLESTEROL 183 <=200 mg/dL TB HDL CHOLESTEROL 72(H) 40 - 60 mg/dL TB Comment: > or =60 mg/dl - LOW CARDIOVASCULAR RISK <40 mg/dl - HIGH CARDIOVASCULAR RISK LDL CHOLESTEROL CALCULATED 91.0 mg/dL TB Comment: <100 mg/dl OPTIMAL 100-129 mg/dl NEAR OR ABOVE OPTIMAL 130-159 mg/dl BORDERLINE HIGH 160-189 mg/dl HIGH >190 mg/dl VERY HIGH VLDL CHOLESTEROL 20.8 mg/dL TBH CHOL HDL RATIO 2.5 TB Comment: 3.3 - 4.4 LOW RISK 4.4 - 7.1 AVERAGE RISK 7.1 - 11.0 MODERATE RISK >11.0 HIGH RISK 01/10/2025 5:17 PM EDT 01/10/2025 5:17 PM EDT Narrative CL[facility] - 01/10/2025 5:50 PM EDT Bubba Cruz MD CLIN[facility] Final Result [facility] TB * (ABNORMAL) [facility]CF CMP (CMP) (FOR REMOTE [facility] USE) (01/10/2025 5:17 PM EDT) SODIUM 142 136 - 145 mmol/L TBH POTASSIUM 3.9 3.5 - 5.1 mmol/L TBH CHLORIDE 102 98 - 107 mmol/L TBH CARBON DIOXIDE 34.0(H) 21.0 - 32.0 mmol/L TBH ANION GAP 9.9 TBH GLUCOSE 100 74 - 106 mg/dL TBH BLOOD UREA NITROGEN 9.0 7.0 - 18.0 mg/dL TBH CREATININE 1.16 0.70 - 1.30 mg/dL TBH TBH EGFR-AF THAI >60 >=60 mL/min/1. 73m 2 TBH TBH EGFR-NON AF THAI >60 >=60 mL/min/1. 73m 2 TBH BUN CREATININE RATIO 7.8 TBH CALCIUM 9.0 8.5 - 10.1 mg/dL TBH BILIRUBIN TOTAL 0.4 0.2 - 1.0 mg/dL TBH ASPARTATE AMINO TRANSFERASE 28 15 - 37 U/L TBH ALANINE AMINOTRANSFERASE 38 16 - 63 U/L TBH ALKALINE PHOSPHATASE 76 46 - 116 U/L TBH TOTAL PROTEIN 6.5 6.4 - 8.2 g/dL TBH ALBUMIN LEVEL 3.7 3.4 - 5.0 g/dL TBH GLOBULIN 2.8 g/dL TBH ALBUMIN GLOBULIN RATIO 1.3 TBH 01/10/2025 5:17 PM EDT 01/10/2025 5:17 PM EDT Narrative CLINISYNC - 01/10/2025 5:50 PM EDT Bubba Cruz MD [facility] Final Result [facility] documented in this encounter Visit Diagnoses Not on filedocumented in this encounter Additional Health Concerns Assessment Noted Time PHQ-9 Depression Total Score: 16 024 3:00 PM EDT documented as of this encounter Care Teams Bagger And Stock Handler Helper Relationship Specialty Start Date End Date Bubba Cruz MD 112 [facility] [address] [place] [address] PCP - General Family Medicine 11/27/22 Elaina Burgess PA [address] [facility] [address] [place] [id number] Physician Structures Assembler Neurology 12/02/23 Kenna Lockett, GRAHAM [address] [place] [address] Registered Nurse Family Medicine 12/02/23 Stan Win MD [address] [place] [address] Referring Physician Behavioral Health 12/02/23 documented as of this encounter
--- OUTSIDE RECORDS SUMMARY | 2025-01-19 13:39 | XMS_ITS | Encounter Summary ---
Author Organization [facility] Address [address] [place] [address] Care Team Providers Care Electromechanic Name Role Phone Bubba Cruz MD Primary Care Provider [phone] Bubba Cruz MD Unavailable [phone] Elaina Burgess Unavailable Kenna Lockett RN Unavailable [phone] Stan Win MD Unavailable [phone] Bubba Cruz MD Unavailable [phone] Encounter Details Date Type Department Care Team (Late st Contact Info) Description 01/05/2023 Orders Only [facility] [address] [facility] [place] [address] Bubba Cruz MD 112 [facility] 100 [place] [address] (Fax) Social History Tobacco Use [...] and Family Not on file 12/01/2022 Attends Anabaptism Services Not on file 12/01 Active Member [...] place to sleep or slept in a alf (including now)? No 12/01/2022 Sex and Gender [...] FM [address] [place] [address] Bubba Cruz MD [address] [place] [address] (Fax) documented as of this encounter Visit Diagnoses Not on filedocumented in this encounter Care Teams Electromechanic Relationship Specialty Start Date End Date Bubba Cruz MD [address] [place] [address] (Fax) PCP - General Family Medicine 11/27/22 Bubba Cruz MD [address] [place] [address] (Fax) PCP - ACO Reach 12/04/22 08/18/24 Bubba Cruz MD [address] [place] [address] (Fax) PCP - ACO Reach 08/26/24 10/13/24 Elaina Burgess PA [address] [place] [address] Physician Microelectronics Engineer Neurology 12/02/23 Kenna Lockett, GRAHAM [address] [facility] [address] [place] [address] Registered Nurse Family Medicine 12/02/23 Stan Win MD [address] [facility] [address] [place] [address] Referring Physician Behavioral Health 12/02/23 documented as of this encounter
--- OUTSIDE RECORDS SUMMARY | 2025-01-19 13:39 | XMS_ITS | Encounter Summary ---
Author Organization [facility] Address [address] [place] [address] Care Team Providers Care Lead Driver Name Role Phone Bubba Cruz MD Primary Care Provider [phone] Elaina Burgess Unavailable Kenna Lockett RN Unavailable [phone] Stan Win MD Unavailable [phone] Reason for Visit * Reason Comments Med Refill Encounter Details Date Type Department Care Team (Late st Contact Info) Description 01/18/2025 Refill [facility] [address] [place] [id number] Bubba Cruz MD [address] [place] [address] Simple chronic bronchitis (HCC) Social History Tobacco Use Types Packs/Day Years Used Date Smoking Tobacco: Some Days Cigarettes 1.5 15 Started: 08/18/2008; Last attempted to quit: 08/18/2023 Smokeless Tobacco: Never Comments:21-30 cigs/day - no t currently smoking 11/03/23 01/11/25 - states smoking [...] How often do you attend chur or christian services? Never 01/23/2023 Do you belong to any clubs o r organizations such as alevism groups, unions, fraternal or athletic groups, or [...] FM [address] [place] [address] Bubba Cruz MD [address] [place] [address] documented as of this encounter Visit Diagnoses Diagnosis Simple chronic bronchitis (HCC) Simple chronic bronchitis Preoperative evaluation to rule out surgical contraindication Post-void dribbling Urinary incontinence without sensory awareness Incontinence without sensory awareness Relapsing remitting multiple sclerosis (HCC) Multiple sclerosis Polypharmacy Issue of repeat prescriptions Marijuana smoker Cigarette smoker Tobacco use disorder documented in this encounter Additional Health Concerns Assessment Noted Time PHQ-9 Depression Total Score: 16 024 3:00 PM EDT documented as of this encounter Care Teams Lead Driver Relationship Specialty Start Date End Date Bubba Cruz MD [address] [place] [address] PCP - General Family Medicine 11/27/22 Elaina Burgess PA 54[address] [facility] [address] [place] [id number] Physician Block Cutter Neurology 12/02/23 Kenna Lockett, GRAHAM [address] [place] [address] Registered Nurse Family Medicine 12/02/23 Stan Win MD [address] [place] [address] Referring Physician Behavioral Health 12/02/23 documented as of this encounter
--- OUTSIDE RECORDS SUMMARY | 2025-01-19 13:39 | XMS_ITS | Clinical Summary ---
Author Organization [facility] Address [address] [place] [address] Care Team Providers Care Cam Milling Machine Operator Name Role Phone Unavailable Primary Care Provider [...]
--- OUTSIDE RECORDS SUMMARY | 2025-01-19 13:39 | XMS_ITS | Encounter Summary ---
Author Organization [facility] Address [address] [place] [address] Care Team Providers Care Ear Mold Laboratory Technician Name Role Phone Bubba Cruz MD Primary Care Provider [phone] Elaina Burgess Unavailable Kenna Lockett RN Unavailable [phone] Stan Win MD Unavailable [phone] Encounter Details Date Type Department Care Team (Late st Contact Info) Description 01/18/2025 Telephone [facility] [address] [place] [address] Bubba Cruz MD 112 [facility] [address] [place] [address] Social History Tobacco Use Types Packs/Day Years [...] How often do you attend chur or sabianist services? Never 01/23/2023 Do you belong to any clubs o r organizations such as islam groups, unions, fraternal or athletic groups, or [...] as of this encounter Miscellaneous Notes * Telephone Encounter - Bubba Cruz MD - 01/18/2025 2:04 PM EDT Prescription sent * Telephone Encounter - Viktoria Parker - 01/18/2025 1:46 PM EDT [facility] is requesting a refill on spironolactone (Aldactone) 50 MG documented in this encounter Plan of Treatment Upcoming Encounters Date Type Department Care Team (Late st Contact Info) Description 01/23/2025 2:00 PM EDT Office Visit [facility] [address] [place] [address] Bubba Cruz MD [address] [place] [address] documented as of this encounter Visit Diagnoses Diagnosis Venous insufficiency Unspecified venous (peripheral) insufficiency Preoperative evaluation to rule out surgical contraindication Post-void dribbling Urinary incontinence without sensory awareness Incontinence without sensory awareness Relapsing remitting multiple sclerosis (HCC) Multiple sclerosis Polypharmacy Issue of repeat prescriptions Marijuana smoker Cigarette smoker Tobacco use disorder documented in this encounter Additional Health Concerns Assessment Noted Time PHQ-9 Depression Total Score: 16 12/22/ 024 3:00 PM EDT documented as of this encounter Care Teams Ear Mold Laboratory Technician Relationship Specialty Start Date End Date Bubba Cruz MD [address] [place] [address] [address] [place] [address] PCP - General Family Medicine 11/27/22 Elaina Burgess PA 5433 [facility] [address] [place] [address] Physician Industrial Hygiene Engineer Neurology 12/02/23 Kenna Lockett, GRAHAM [address] [place] [address] Registered Nurse Family Medicine 12/02/23 Stan Win MD [address] [place] [address] Referring Physician Behavioral Health 12/02/23 documented as of this encounter
--- OUTSIDE RECORDS SUMMARY | 2025-01-19 13:39 | XMS_ITS | Encounter Summary ---
Author Organization [facility] Address [address] [place] [address] Care Team Providers Care Sanitation Associate Name Role Phone Bubba Cruz MD Primary Care Provider [phone] Bubba Cruz MD Unavailable [phone] Elaina Burgess Unavailable Kenna Lockett RN Unavailable [phone] Stan Win MD Unavailable [phone] Bubba Cruz MD Unavailable [phone] Encounter Details Date Type Department Care Team (Late st Contact Info) Description 02/12/2023 Orders Only [facility] [address] [facility] [place] [address] Bubba Cruz MD 112 [facility] [address] [place] [address] (Fax) Primary hypertension (Primary Dx); [...] How often do you attend chur or advent services? Never 01/23/2023 Do you belong to any clubs o r organizations such as sabianism groups, unions, fraternal or athletic groups, or [...] Office Visit [facility] 100 112 [facility] 100 [place] [address] Bubba Cruz MD 112 [facility] 100 [place] [address] documented as of this encounter Visit Diagnoses Diagnosis Primary hypertension- Primary Unspecified essential hypertension Insomnia, unspecified type Preoperative evaluation to rule out surgical contraindication Post-void dribbling Urinary incontinence without sensory awareness Incontinence without sensory awareness Relapsing remitting multiple sclerosis (HCC) Multiple sclerosis Polypharmacy Issue of repeat prescriptions Marijuana smoker Cigarette smoker Tobacco use disorder documented in this encounter Care Teams Sanitation Associate Relationship Specialty Start Date End Date Bubba Cruz MD 112 [facility] 100 [place] [address] PCP - General Family Medicine 11/27/22 Bubba Cruz MD [address] [place] [address] PCP - ACO Reach 12/04/22 08/18/24 Bubba Cruz MD [address] [facility] [address] [place] [address] PCP - ACO Reach 08/26/24 10/13/24 Elaina Burgess PA 5433 [facility] [address] [place] [address] Physician Senior Cost Estimator Neurology 12/02/23 Kenna Lockett RN [address] [place] [address] Registered Nurse Family Medicine 12/02/23 Stan Win MD [address] [place] [address] Referring Physician Behavioral Health 12/02/23 documented as of this encounter
--- OUTSIDE RECORDS SUMMARY | 2025-01-19 13:39 | XMS_ITS | Encounter Summary ---
Author Organization [facility] Address [address] [place] [address] Care Team Providers Care Clinical Support Nurse Name Role Phone Bubba Cruz MD Primary Care Provider [phone] Elaina Burgess Unavailable Kenna Lockett RN Unavailable [phone] Stan Win MD Unavailable [phone] Encounter Details Date Type Department Care Team (Late st Contact Info) Description 01/11/2025 Abstract [facility] [address] [place] [address] Bubba Cruz MD 112 [facility] [address] [place] [address] Social History Tobacco Use Types Packs/Day Years [...] How often do you attend chur or shinto services? Never 01/23/2023 Do you belong to any clubs o r organizations such as zoroastrian groups, unions, fraternal or athletic groups, or [...] FM [address] [place] [address] Bubba Cruz MD [address] [place] [address] (Fax) documented as of this encounter Visit Diagnoses Not on filedocumented in this encounter Additional Health Concerns Assessment Noted Time PHQ-9 Depression Total Score: 16 024 3:00 PM EDT documented as of this encounter Care Teams Clinical Support Nurse Relationship Specialty Start Date End Date Bubba Cruz MD [address] [place] [address] (Fax) PCP - General Family Medicine 11/27/22 Elaina Burgess PA [address] [place] [address] Physician Executive Recruiter Neurology 12/02/23 Kenna Lockett, GRAHAM [address] [place] [address] Registered Nurse Family Medicine 12/02/23 Stan Win MD [address] [place] [address] Referring Physician Behavioral Health 12/02/23 documented as of this encounter
--- OUTSIDE RECORDS SUMMARY | 2025-01-19 13:40 | XMS_ITS | Encounter Summary ---
Author Organization [facility] Address [address] [place] [address] Care Team Providers Care Lens Dotter Name Role Phone Bubba Cruz MD Primary Care Provider [phone] Bubba Cruz MD Unavailable [phone] Elaina Burgess Unavailable Kenna Lockett RN Unavailable [phone] Stan Win MD Unavailable [phone] Bubba Cruz MD Unavailable [phone] Encounter Details Date Type Department Care Team (Late st Contact Info) Description 07/29/2023 Abstract [facility] [address] [place] [address] Bubba Cruz MD 112 [facility] 100 [place] [address] (Fax) Social History Tobacco Use [...] How often do you attend chur or buddhism services? Never 01/23/2023 Do you belong to any clubs o r organizations such as judaism groups, unions, fraternal or athletic groups, or [...] FM [address] [place] [address] Bubba Cruz MD [address] [place] [address] documented as of this encounter Visit Diagnoses Not on filedocumented in this encounter Care Teams Lens Dotter Relationship Specialty Start Date End Date Bubba Cruz MD [address] [place] [address] PCP - General Family Medicine 11/27/22 Bubba Cruz MD [address] [place] [address] PCP - ACO Reach 12/04/22 08/18/24 Bubba Cruz MD [address] [place] [address] PCP - ACO Reach 08/26/24 10/13/24 Elaina Burgess PA 54[address] [facility] [address] [place] [address] Physician Posting Machine Operator Neurology 12/02/23 Kenna Lockett, GRAHAM [address] [place] [address] Registered Nurse Family Medicine 12/02/23 Stan Win MD [address] [place] [address] Referring Physician Behavioral Health 12/02/23 documented as of this encounter
--- OUTSIDE RECORDS SUMMARY | 2025-01-19 13:40 | XMS_ITS | Encounter Summary ---
Author Organization [facility] Address [address] [place] [address] Care Team Providers Care Electrotyper Name Role Phone Bubba Cruz MD Primary Care Provider Bubba Cruz MD Unavailable [phone] Elaina Burgess Unavailable Kenna Lockett RN Unavailable [phone] Stan Win MD Unavailable [phone] Bubba Cruz MD Unavailable [phone] Encounter Details Date Type Department Care Team (Late st Contact Info) Description 07/29/2023 Abstract [facility] [address] [place] [address] Bubba Cruz MD 112 [facility] 100 [place] [address] (Fax) Social History Tobacco Use [...] any clubs o r organizations such as yazidi groups, unions, fraternal or athletic groups, or [...] FM [address] [place] [address] Bubba Cruz MD [address] [place] [address] documented as of this encounter Visit Diagnoses Not on filedocumented in this encounter Care Teams Electrotyper Relationship Specialty Start Date End Date Bubba Cruz MD [address] [place] [address] PCP - General Family Medicine 11/27/22 Bubba Cruz MD [address] [place] [address] PCP - ACO Reach 12/04/22 08/18/24 Bubba Cruz MD [address] [place] [address] PCP - ACO Reach 08/26/24 10/13/24 Elaina Burgess PA [address] [facility] [address] [place] [address] Physician Printed Circuit Board Pcb Draftsman Neurology 12/02/23 Kenna Lockett, GRAHAM [address] [place] [address] Registered Nurse Family Medicine 12/02/23 Stan Win MD [address] [place] [address] Referring Physician Behavioral Health 12/02/23 documented as of this encounter
--- OUTSIDE RECORDS SUMMARY | 2025-01-19 13:40 | XMS_ITS | Encounter Summary ---
Author Organization [facility] Address [address] [place] [address] Care Team Providers Care Sleeping Room Cleaner Name Role Phone Bubba Cruz MD Primary Care Provider Bubba Cruz MD Unavailable [phone] Elaina Burgess Unavailable Kenna Lockett RN Unavailable [phone] Stan Win MD Unavailable [phone] Bubba Cruz MD Unavailable [phone] Encounter Details Date Type Department Care Team (Late st Contact Info) Description 02/25/2023 Abstract [facility] [address] [place] [address] Bubba Cruz MD 112 [facility] 100 [place] [address] (Fax) Social History Tobacco Use [...] How often do you attend chur or cheondoism services? Never 01/23/2023 Do you belong to any clubs o r organizations such as advent groups, unions, fraternal or athletic groups, or [...] FM [address] [place] [address] Bubba Cruz MD [address] [place] [address] (Fax) documented as of this encounter Visit Diagnoses Not on filedocumented in this encounter Care Teams Sleeping Room Cleaner Relationship Specialty Start Date End Date Bubba Cruz MD 112 [facility] 100 [place] [address] (Fax) PCP - General Family Medicine 11/27/22 Bubba Cruz MD [address] [place] [address] PCP - ACO Reach 12/04/22 08/18/24 Bubba Cruz MD [address] [place] [address] 100 [place] [address] PCP - ACO Reach 08/26/24 10/13/24 Elaina Burgess PA 5433 [facility] [address] [place] [address] Physician Xerox Machine Operator Neurology 12/02/23 Kenna Lockett, GRAHAM [address] [place] [address] Registered Nurse Family Medicine 12/02/23 Stan Win MD [address] [place] [address] Referring Physician Behavioral Health 12/02/23 documented as of this encounter
--- OUTSIDE RECORDS SUMMARY | 2025-01-19 13:40 | XMS_ITS | Encounter Summary ---
Author Organization [facility] Address [address] [place] [address] Care Team Providers Care Assistant Speech Language Pathologist Name Role Phone Bubba Ghotra MD Primary Care Provider + [phone] Bubba Ghotra MD Unavailable [phone] Anjali Frausto Unavailable Kenna Lockett RN Unavailable [phone] Stan Win MD Unavailable [phone] Bubba Ghotra MD Unavailable [phone] Encounter Details Date Type Department Care Team (Late st Contact Info) Description 06/23/2024 Clinisync Result Encounter [facility] External Department Unsolicited Anjali Frausto PA [address] [place] [address] Social History Tobacco Use Types [...] FM [address] [place] [address] Bubba Ghotra MD [address] [place] [address] documented as of this encounter Procedures Procedure Name Priority Date/Time Associated Diagnosis Comments MR CERVICAL SPINE WO/W CON 06/23/2024 5:17 PM EST documented in this encounter Results * MR CERVICAL SPINE WO/W CON (06/23/2024 5:17 PM EST) Anatomical Region Laterality Modality Other 06/23/2024 5:17 PM EST Narrative 06/23/2024 5:20 PM EST The [address] [address] Magnetic Resonance Report Signed Patient: HARISH EMMANUEL MR#: [id number] : 1970 Acct:[id number] Age/Sex: 54 / M ADM Date: 06/23/24 Loc: MRI Attending Dr: Anjali RIGGINS Ordering Physician: Anjali Frausto Date of Service: 06/23/24 Procedure(s): MR cervical spine wo/w con Accession Number(s): [id number] cc: BUBBA GHOTRA ; Anjali Frausto [place] [address] Patient Name: HARISH EMMANUEL MRN: [facility]:[id number] date: 1970 Sex: M Assigned Patient Location: MRI Current Patient Location: MRI Accession/Order Number: [id number] Exam Date: 06/23/2024 15:18 Report Date: 06/23/2024 [...] M.D. Signed By: 06/23/241719 DD/ 16 TD/TT: Pumping Plant Operator: Procedure Note Radiology, Radiologist, MD - 06/23/2024 [place] [address] Magnetic Resonance Report Signed Patient: HARISH EMMANUEL LMR#: [id number] : 1970Acct:[id number] Age/Sex: 54 / MADM Date: 06/23/24 Loc: MRI Attending Dr: Anjali RIGGINS Ordering Physician: Anjali Frausto Date of Service: 06/23/24 Procedure(s): MR cervical spine wo/w con Accession Number(s): [id number] cc: BUBBA GHOTRA ; Anjali Frausto [place] [address] Patient Name: HARISH EMMANUEL MRN: [id number] date: 1970 Sex: M Assigned Patient Location: MRI Current Patient Location: MRI Accession/Order Number: [id number] Exam Date: 06/23/2024 15:18 Report Date: 06/23/2024 [...] OZZIE PRITCHETT Date: 06/23/2024 17:17 Dictated By: Ozize Pritchett M.D. Signed By:06/23/24 1720 DD/ 1717 TD/TT: Pumping Plant Operator: us Anjali RIGGINS [facility] Final Result documented in this encounter Visit Diagnoses Not on filedocumented in this encounter Additional Health Concerns Assessment Noted Time PHQ-9 Depression Total Score: 16 024 3:00 PM EDT documented as of this encounter Care Teams Assistant Speech Language Pathologist Relationship Specialty Start Date End Date Bubba Ghotra MD [address] [place] [address] PCP - General Family Medicine 11/27/22 Bubba Ghotra MD [address] [place] [address] PCP - ACO Reach 12/04/22 08/18/24 Bubba Ghotra MD [address] [place] [address] PCP - ACO Reach 08/26/24 10/13/24 Anjali Frausto PA [address] [place] [id number] Physician Fire Extinguisher Repairer Neurology 12/02/23 Kenna Lockett, GRAHAM [address] [place] [address] Registered Nurse Family Medicine 12/02/23 Stan Win MD [address] [place] [address] Referring Physician Behavioral Health 12/02/23 documented as of this encounter
--- OUTSIDE RECORDS SUMMARY | 2025-01-19 13:40 | XMS_ITS | Encounter Summary ---
Author Organization [facility] Address [address] [place] [address] Care Team Providers Care Early Interventionist Name Role Phone Bubba Cruz MD Primary Care Provider + [phone] Bubba Cruz MD Unavailable [phone] Elaina Burgess Unavailable Kenna Lockett RN Unavailable [phone] Stan Win MD Unavailable [phone] Bubba Cruz MD Unavailable [phone] Encounter Details Date Type Department Care Team (Late st Contact Info) Description 03/11/2023 Abstract [facility] [address] [place] [address] Bubba Cruz MD [address] [address] (Fax) Social History Tobacco Use [...] How often do you attend chur or yazidism services? Never 01/23/2023 Do you belong to any clubs o r organizations such as gnosticism groups, unions, fraternal or athletic groups, or [...] FM [address] [place] [address] Bubba Cruz MD [address] [place] [address] documented as of this encounter Visit Diagnoses Not on filedocumented in this encounter Care Teams Early Interventionist Relationship Specialty Start Date End Date Bubba Curz MD [address] [place] [address] PCP - General Family Medicine 11/27/22 Bubba Cruz MD [address] [place] [address] PCP - ACO Reach 12/04/22 08/18/24 Bubba Cruz MD [address] [place] [address] PCP - ACO Reach 08/26/24 10/13/24 Elaina Burgess PA [address] [place] [address] Physician Embroidery Operator Neurology 12/02/23 Kenna Lockett RN [address] [place] [address] Registered Nurse Family Medicine 12/02/23 Stan Win MD [address] [place] [address] Referring Physician Behavioral Health 12/02/23 documented as of this encounter
--- OUTSIDE RECORDS SUMMARY | 2025-01-19 13:40 | XMS_ITS | Encounter Summary ---
Author Organization [facility] Address [address] [place] [address] Care Team Providers Care Inspector Glass Or Mirror Name Role Phone Bubba Cruz MD Primary Care Provider [phone] Bubba Cruz MD Unavailable [phone] Elaina Burgess Unavailable Kenna Lockett RN Unavailable [phone] Stan Win MD Unavailable [phone] Bubba Cruz MD Unavailable [phone] Encounter Details Date Type Department Care Team (Late st Contact Info) Description 08/27/2023 Abstract [facility] [address] [place] [address] Kris Rousseau, DO [address] [place] [address] Social History Tobacco Use Types Packs/Day Years [...] How often do you attend chur or taoism services? Never 01/23/2023 Do you belong to [...] FM [address] [place] [address] Bubba Cruz MD [address] [place] [address] documented as of this encounter Visit Diagnoses Not on filedocumented in this encounter Care Teams Inspector Glass Or Mirror Relationship Specialty Start Date End Date Bubba Cruz MD [address] [place] [address] PCP - General Family Medicine 11/27/22 Bubba Cruz MD [address] [place] [address] PCP - ACO Reach 12/04/22 08/18/24 Bubba Cruz MD [address] [place] [address] PCP - ACO Reach 08/26/24 10/13/24 Elaina Burgess PA 5433 [facility] [address] [place] [address] Physician Public Housing Interviewer Neurology 12/02/23 Kenna Lockett, GRAHAM [address] [place] [address] Registered Nurse Family Medicine 12/02/23 Stan Win MD [address] [place] [address] Referring Physician Behavioral Health 12/02/23 documented as of this encounter
--- OUTSIDE RECORDS SUMMARY | 2025-01-19 13:40 | XMS_ITS | Encounter Summary ---
Author Organization [facility] Address [address] [place] [address] Care Team Providers Care Sales Branch Manager Name Role Phone Bubba Cruz MD Primary Care Provider [phone] Bubba Cruz MD Unavailable [phone] Elaina Burgess Unavailable Kenna Lockett RN Unavailable [phone] Stan Win MD Unavailable [phone] Bubba Cruz MD Unavailable [phone] Encounter Details Date Type Department Care Team (Late st Contact Info) Description 05/14/2023 Abstract [facility] [address] [place] [address] Elaina Burgess PA [address] [place], [place] [address] Social History Tobacco Use Types Packs/Day Years [...] How often do you attend chur or moravian services? Never 01/23/2023 Do you belong to any clubs o r organizations such as jehovah's witness groups, unions, fraternal or athletic groups, or [...] FM [address] [place] [address] Bubba Cruz MD [address] [place] [address] documented as of this encounter Visit Diagnoses Not on filedocumented in this encounter Care Teams Sales Branch Manager Relationship Specialty Start Date End Date Bubba Cruz MD [address] [place] [address] PCP - General Family Medicine 11/27/22 Bubba Cruz MD [address] [place] [address] PCP - ACO Reach 12/04/22 08/18/24 Bubba Cruz MD [address] [place] [address] PCP - ACO Reach 08/26/24 10/13/24 Elaina Burgess PA 5433 [facility] [address] [place] [address] Physician Traffic Representative Neurology 12/02/23 Kenna Lockett, GRAHAM [address] [place] [address] Registered Nurse Family Medicine 12/02/23 Stan Win MD [address] [place] [address] Referring Physician Behavioral Health 12/02/23 documented as of this encounter
--- OUTSIDE RECORDS SUMMARY | 2025-01-19 13:40 | XMS_ITS | Encounter Summary ---
Author Organization [facility] Address [address] [place] [address] Care Team Providers Care Medical Physicist Name Role Phone Bubba Cruz MD Primary Care Provider + [phone] Elaina Burgess Unavailable Kenna Lockett RN Unavailable [phone] Stan Win MD Unavailable [phone] Encounter Details Date Type Department Care Team (Late st Contact Info) Description 01/10/2025 Orders Only [facility] FM [address] [place] [address] Bubba Cruz MD [address] [place] [address] Social History Tobacco Use Types Packs/Day Years [...] week 01/23/2023 How often do you attend [facility] or jewish services? Never 01/23/2023 Do you belong to any clubs o r organizations such as gnosticist groups, unions, fraternal or athletic groups, or [...] FM [address] [place] [address] Bubba Cruz MD [address] [place] [address] (Fax) documented as of this encounter Visit Diagnoses Not on filedocumented in this encounter Additional Health Concerns Assessment Noted Time PHQ-9 Depression Total Score: 16 024 3:00 PM EDT documented as of this encounter Care Teams Medical Physicist Relationship Specialty Start Date End Date Bubba Cruz MD [address] [place] [address] (Fax) PCP - General Family Medicine 11/27/22 Elaina Burgess PA [address] [place] [address] Physician Cobol Programmer Neurology 12/02/23 Kenna Lockett, GRAHAM [address] [place], [place] [address] Registered Nurse Family Medicine 12/02/23 Stan Win MD [address] [address] Referring Physician Behavioral Health 12/02/23 documented as of this encounter
--- OUTSIDE RECORDS SUMMARY | 2025-01-19 13:40 | XMS_ITS | Encounter Summary ---
Author Organization [facility] Address [address] [place] [address] Care Team Providers Care Spa Attendant Name Role Phone Bubba Cruz MD Primary Care Provider [phone] Bubba Cruz MD Unavailable [phone] Elaina Burgess Unavailable Kenna Lockett RN Unavailable [phone] Stan Win MD Unavailable [phone] Bubba Cruz MD Unavailable [phone] Encounter Details Date Type Department Care Team (Late st Contact Info) Description 08/31/2023 Abstract [facility] [address] [place] [address] Lasha Wolfe MD [address] [place] [address] Social History Tobacco Use Types Packs/Day Years [...] week 01/23/2023 How often do you attend [facility] or yarsani services? Never 01/23/2023 Do you belong to any clubs o r organizations such as uatsdin groups, unions, fraternal or athletic groups, or [...] FM [address] [place] [address] Bubba Cruz MD [address] [place] [address] documented as of this encounter Visit Diagnoses Not on filedocumented in this encounter Care Teams Spa Attendant Relationship Specialty Start Date End Date Bubba Cruz MD [address] [place] [address] (Fax) PCP - General Family Medicine 11/27/22 Bubba Cruz MD [address] [place] [address] PCP - ACO Reach 12/04/22 08/18/24 Bubba Cruz MD [address] [place] [address] PCP - ACO Reach 08/26/24 10/13/24 Elaina Burgess PA 5433 [facility] [address] [place] [id number] Physician Casing Grader Neurology 12/02/23 Kenna Lockett RN [address] [place] [address] Registered Nurse Family Medicine 12/02/23 Stan Win MD [address] [place] [address] Referring Physician Behavioral Health 12/02/23 documented as of this encounter
--- OUTSIDE RECORDS SUMMARY | 2025-01-19 13:40 | XMS_ITS | Encounter Summary ---
Author Organization [facility] Address [address] [place] [address] Care Team Providers Care Stable Helper Name Role Phone Bubba Cruz MD Primary Care Provider [phone] Bubba Cruz MD Unavailable [phone] Elaina Burgess Unavailable Kenna Lockett RN Unavailable [phone] Stan Win MD Unavailable [phone] Bubba Cruz MD Unavailable [phone] Encounter Details Date Type Department Care Team (Late st Contact Info) Description 09/15/2023 Abstract [facility] [address] [place] [address] Bubba Cruz MD 112 [facility] 100 [place] [address] (Fax) Social History Tobacco Use [...] How often do you attend chur or zoroastrian services? Never 01/23/2023 Do you belong to [...] FM [address] [place] [address] Bubba Cruz MD [address] [place] [address] documented as of this encounter Visit Diagnoses Not on filedocumented in this encounter Care Teams Stable Helper Relationship Specialty Start Date End Date Bubba Cruz MD [address] [place] [address] PCP - General Family Medicine 11/27/22 Bubba Cruz MD [address] [place] [address] PCP - ACO Reach 12/04/22 08/18/24 Bubba Cruz MD [address] [place] [address] PCP - ACO Reach 08/26/24 10/13/24 Elaina Burgess PA 54[address] [facility] [address] [place] [address] Physician Social Work Specialist Neurology 12/02/23 Kenna Lockett, GRAHAM [address] [place] [address] Registered Nurse Family Medicine 12/02/23 Stan Win MD [address] [place] [address] Referring Physician Behavioral Health 12/02/23 documented as of this encounter
--- OUTSIDE RECORDS SUMMARY | 2025-01-19 13:40 | XMS_ITS | Encounter Summary ---
Author Organization [facility] Address [address] [place] [address] Care Team Providers Care Welfare Director Name Role Phone Bubba Cruz MD Primary Care Provider [phone] Bubba Cruz MD Unavailable [phone] Elaina Burgess Unavailable Kenna Lockett RN Unavailable [phone] Stan Win MD Unavailable [phone] Bubba Cruz MD Unavailable [phone] Encounter Details Date Type Department Care Team (Late st Contact Info) Description 07/16/2023 Abstract [facility] [address] [place] [address] Bubba Cruz MD 112 [facility] 100 [place] [address] (Fax) Social History Tobacco Use [...] [address] [place] [address] Bubba Cruz MD [address] [place] [address] documented as of this encounter Visit Diagnoses Not on filedocumented in this encounter Care Teams Welfare Director Relationship Specialty Start Date End Date Bubba Cruz MD [address] [place] [address] PCP - General Family Medicine 11/27/22 Bubba Cruz MD [address] [place] [address] PCP - ACO Reach 12/04/22 08/18/24 Bubba Cruz MD [address] [place] [address] PCP - ACO Reach 08/26/24 10/13/24 Elaina Burgess PA 5433 [facility] [address] [place] [address] Physician Damper Worker Neurology 12/02/23 Kenna Lockett, GRAHAM [address] [place] [address] Registered Nurse Family Medicine 12/02/23 Stan Win MD [address] [place] [address] Referring Physician Behavioral Health 12/02/23 documented as of this encounter
--- OUTSIDE RECORDS SUMMARY | 2025-01-19 13:40 | XMS_ITS | Encounter Summary ---
Author Organization [facility] Address [address] [place] [address] Care Team Providers Care Daily Sales Audit Clerk Name Role Phone Bubba Cruz MD Primary Care Provider [phone] Bubba Cruz MD Unavailable [phone] Elaina Burgess Unavailable Kenna Lockett RN Unavailable [phone] Stan Win MD Unavailable [phone] Bubba Cruz MD Unavailable [phone] Encounter Details Date Type Department Care Team (Late st Contact Info) Description 08/26/2023 Abstract [facility] [address] [place] [address] Kris Rousseau, DO [address] [place] [address] Social History Tobacco Use Types Packs/Day Years [...] FM [address] [place] [address] Bubba Cruz MD [address] [place] [address] documented as of this encounter Visit Diagnoses Not on filedocumented in this encounter Care Teams Daily Sales Audit Clerk Relationship Specialty Start Date End Date Bubba Cruz MD [address] [place] [address] PCP - General Family Medicine 11/27/22 Bubba Cruz MD [address] [place] [address] PCP - ACO Reach 12/04/22 08/18/24 Bubba Cruz MD [address] [place] [address] PCP - ACO Reach 08/26/24 10/13/24 Elaina Burgess PA [address] [facility] [address] [place] [address] Physician Instructor [employer] Neurology 12/02/23 Kenna Lockett, GRAHAM [address] [place] [address] Registered Nurse Family Medicine 12/02/23 Stan Win MD [address] [place] [address] Referring Physician Behavioral Health 12/02/23 documented as of this encounter
--- OUTSIDE RECORDS SUMMARY | 2025-01-19 13:40 | XMS_ITS | Encounter Summary ---
Author Organization [facility] Address [address] [place] [address] Care Team Providers Care Marketing Proposal Coordinator Name Role Phone Bubba Cruz MD Primary Care Provider [phone] Bubba Cruz MD Unavailable [phone] Elaina Burgess Unavailable Kenna Lockett RN Unavailable [phone] Stan Win MD Unavailable [phone] Bubba Cruz MD Unavailable [phone] Encounter Details Date Type Department Care Team (Late st Contact Info) Description 08/27/2023 Abstract [facility] [address] [place] [address] Antnoy Pedersen MD [address] [place] [address] Social History Tobacco Use Types Packs/Day Years [...] How often do you attend chur or mu-ism services? Never 01/23/2023 Do you belong to [...] FM [address] [place] [address] Bubba Cruz MD [address] [place] [address] documented as of this encounter Visit Diagnoses Not on filedocumented in this encounter Care Teams Marketing Proposal Coordinator Relationship Specialty Start Date End Date Bubba Cruz MD [address] [place] [address] (Fax) PCP - General Family Medicine 11/27/22 Bubba Cruz MD [address] [place] [address] PCP - ACO Reach 12/04/22 08/18/24 Bubba Cruz MD [address] [place] [address] PCP - ACO Reach 08/26/24 10/13/24 Elaina Burgess PA [address] [facility] [address] [place] [id number] Physician Bone Process Operator Neurology 12/02/23 Kenna Lockett, GRAHAM [address] [place] [address] Registered Nurse Family Medicine 12/02/23 Stan Win MD [address] [place] [address] Referring Physician Behavioral Health 12/02/23 documented as of this encounter
--- OUTSIDE RECORDS SUMMARY | 2025-01-19 13:40 | XMS_ITS | Encounter Summary ---
Author Organization [facility] Address [address] [place] [address] Care Team Providers Care Psychologists Name Role Phone Bubba Ghotra MD Primary Care Provider + [phone] Bubba Ghotra MD Unavailable [phone] Anjali Frausto Unavailable Kenna Lockett RN Unavailable [phone] Stan Win MD Unavailable [phone] Bubba Ghotra MD Unavailable [phone] Encounter Details Date Type Department Care Team (Late st Contact Info) Description 06/23/2024 Clinisync Result Encounter [facility] External Department Unsolicited Anjali Frausto PA [address] [place] [address] Social History Tobacco Use Types [...] any clubs o r organizations such as faith groups, unions, fraternal or athletic groups, or [...] FM [address] [place] [address] Bubba Ghotra MD [address] [place] [address] documented as of this encounter Procedures Procedure Name Priority Date/Time Associated Diagnosis Comments MR THORACIC SPINE WO/W CON 06/23/2024 5:17 PM EST documented in this encounter Results * MR THORACIC SPINE WO/W CON (06/23/2024 5:17 PM EST) Anatomical Region Laterality Modality Other 06/23/2024 5:17 PM EST Narrative 06/23/2024 5:20 PM EST The [address] [address] Magnetic Resonance Report Signed Patient: HARISH EMMANUEL MR#: [id number] : 1970 Acct:[id number] Age/Sex: 54 / M ADM Date: 06/23/24 Loc: MRI Attending Dr: Anjali RIGGINS Ordering Physician: Anjali Frausto Date of Service: 06/23/24 Procedure(s): MR thoracic spine wo/w con Accession Number(s): [id number] cc: BUBBA GHOTRA ; Anjali Frausto [place] [address] Patient Name: HARISH EMMANUEL MRN: [facility]:[id number] date: 1970 Sex: M Assigned Patient Location: MRI Current Patient Location: MRI Accession/Order Number: [id number] Exam Date: 06/23/2024 15:18 Report Date: 06/23/2024 [...] M.D. Signed By: 06/23/241719 DD/ 16 TD/TT: Operations Manager/Coordinator: Procedure Note Radiology, Radiologist, MD - 06/23/2024 [place] [address] Magnetic Resonance Report Signed Patient: HARISH EMMANUEL LMR#: [id number] : 1970Acct:[id number] Age/Sex: 54 / MADM Date: 06/23/24 Loc: MRI Attending Dr: Anjali RIGGINS Ordering Physician: Anjali Frausto Date of Service: 06/23/24 Procedure(s): MR thoracic spine wo/w con Accession Number(s): [id number] cc: BUBBA GHOTRA ; Anjali Frausto The [place] [address] Patient Name: HARISH EMMANUEL MRN: [id number] date: 1970 Sex: M Assigned Patient Location: MRI Current Patient Location: MRI Accession/Order Number: [id number] Exam Date: 06/23/2024 15:18 Report Date: 06/23/2024 [...] Dictated By: Ozzie Pritchett M.D. Signed By:06/23/24 1720 DD/ 1717 TD/TT: Operations Manager/Coordinator: us Anjali RIGGINS [facility] Final Result documented in this encounter Visit Diagnoses Not on filedocumented in this encounter Additional Health Concerns Assessment Noted Time PHQ-9 Depression Total Score: 16 024 3:00 PM EDT documented as of this encounter Care Teams Psychologists Relationship Specialty Start Date End Date Bubba Ghotra MD [address] [place] [address] (Fax) PCP - General Family Medicine 11/27/22 Bubba Ghotra MD [address] [place] [address] PCP - ACO Reach 12/04/22 08/18/24 Bubba Ghotra MD [address] [place] [address] PCP - ACO Reach 08/26/24 10/13/24 Anjali Frausto PA [address] [place] [id number] Physician Trapper Bird Neurology 12/02/23 Kenna Lockett, GRAHAM [address] [place] [address] Registered Nurse Family Medicine 12/02/23 Stan Win MD [address] [place] [address] Referring Physician Behavioral Health 12/02/23 documented as of this encounter
--- OUTSIDE RECORDS SUMMARY | 2025-01-19 13:40 | XMS_ITS | Encounter Summary ---
Author Organization [facility] Address [address] [place] [address] Care Team Providers Care Library Page Name Role Phone Bubba Cruz MD Primary Care Provider + [phone] Bubba Cruz MD Unavailable [phone] Elaina Burgess Unavailable Kenna Lockett RN Unavailable [phone] Stan Win MD Unavailable [phone] Bubba Cruz MD Unavailable [phone] Encounter Details Date Type Department Care Team (Late st Contact Info) Description 09/14/2023 Orders Only [facility] FM [address] [facility] [place] [address] Bubba Cruz MD 112 [facility] [address] [place] [address] (Fax) Social History Tobacco Use [...] How often do you attend chur or muslim services? Never 01/23/2023 Do you belong to any clubs o r organizations such as mosque groups, unions, fraternal or athletic groups, or [...] FM [address] [place] [address] Bubba Cruz MD [address] [place] [address] documented as of this encounter Visit Diagnoses Not on filedocumented in this encounter Care Teams Library Page Relationship Specialty Start Date End Date Bubba Cruz MD [address] [place] [address] (Fax) PCP - General Family Medicine 11/27/22 Bubba Cruz MD [address] [place] [address] PCP - ACO Reach 12/04/22 08/18/24 Bubba Cruz MD [address] [place] [address] PCP - ACO Reach 08/26/24 10/13/24 Elaina Burgess PA [address] [facility] [address] [place] [address] Physician Converter Operator Neurology 12/02/23 Kenna Lockett, GRAHAM [address] [place] [address] Registered Nurse Family Medicine 12/02/23 Stan Win MD [address] [place] [address] Referring Physician Behavioral Health 12/02/23 documented as of this encounter
--- OUTSIDE RECORDS SUMMARY | 2025-01-19 13:40 | XMS_ITS | Encounter Summary ---
Author Organization [facility] Address [address] [place] [address] Care Team Providers Care Shactor Name Role Phone Bubba Ghotra MD Primary Care Provider + [phone] Bubba Ghotra MD Unavailable [phone] Anjali Frausto Unavailable Kenna Lockett RN Unavailable [phone] Stan Win MD Unavailable [phone] Bubba Ghotra MD Unavailable [phone] Encounter Details Date Type Department Care Team (Late st Contact Info) Description 06/22/2024 Clinisync Result Encounter [facility] External Department Unsolicited Anjali Frausto PA [address] [place] [address] Social History Tobacco Use Types [...] How often do you attend chur or rastafarian services? Never 01/23/2023 Do you belong to [...] FM [address] [place] [address] Bubba Ghotra MD [address] [place] [address] documented as of this encounter Procedures Procedure Name Priority Date/Time Associated Diagnosis Comments MRI HEAD/BRAIN WO/W CONTR 06/22/2024 9:50 PM EST documented in this encounter Results * MRI HEAD/BRAIN WO/W CONTR (06/22/2024 9:50 PM EST) Anatomical Region Laterality Modality Radiographic Luciana ging 06/22/2024 9:50 PM EST Narrative 06/22/2024 9:53 PM EST The [address] [address] Magnetic Resonance Report Signed Patient: HARISH EMMANUEL MR#: [id number] : 1970 Acct:[id number] Age/Sex: 54 / M ADM Date: 06/22/24 Loc: MRI Attending Dr: Anjali RIGGINS Ordering Physician: Anjali Frausto Date of Service: 06/22/24 Procedure(s): MR head/brain wo/w con Accession Number(s): [id number] cc: BUBBA GHOTRA ; Anjali Frausto [place] [id number] Patient Name: HARISH EMMANUEL MRN: [facility]:[id number] date: 1970 Sex: M Assigned Patient Location: MRI Current Patient Location: MRI Accession/Order Number: [id number] Exam Date: 06/22/2024 13:45 Report Date: 06/22/2024 [...] M.D. Signed By: 06/22/242152 DD/ 49 TD/TT: Varnisher: Procedure Note Radiology, Radiologist, - 06/22/2024 [place] [address] Magnetic Resonance Report Signed Patient: HARISH EMMANUEL LMR#: [id number] : 1970Acct:[id number] Age/Sex: 54 / MADM Date: 06/22/24 Loc: MRI Attending Dr: Anjali RIGGINS Ordering Physician: Anjali Frausto Date of Service: 06/22/24 Procedure(s): MR head/brain wo/w con Accession Number(s): [id number] cc: BUBBA GHOTRA ; Anjali Frausto The [place] [address] Patient Name: HARISH EMMANUEL MRN: [id number] date: 1970 Sex: M Assigned Patient Location: MRI Current Patient Location: MRI Accession/Order Number: [id number] Exam Date: 06/22/2024 13:45 Report Date: 06/22/2024 [...] CASTILLO M.D. Signed By:06/22/242152 DD/ 49 TD/TT: Varnisher: us Anjali RIGGINS IMG XR PROCEDURES Final Result documented in this encounter Visit Diagnoses Not on filedocumented in this encounter Additional Health Concerns Assessment Noted Time PHQ-9 Depression Total Score: 16 024 3:00 PM EDT documented as of this encounter Care Teams Shactor Relationship Specialty Start Date End Date Bubba Ghotra MD [address] [address] PCP - General Family Medicine 11/27/22 Bubba Ghotra MD [address] [address] PCP - ACO Reach 12/04/22 08/18/24 Bubba Ghotra MD [address] [address] PCP - ACO Reach 08/26/24 10/13/24 Anjali Frausto PA [address] [facility] [address] [place] [address] Physician Loss Prevention Representative Neurology 12/02/23 Kenna Lockett, GRAHAM [address] [place] [address] Registered Nurse Family Medicine 12/02/23 Stan Win MD [address] [place] [address] Referring Physician Behavioral Health 12/02/23 documented as of this encounter
--- NOTE | 2025-01-19 13:41 | MR_ITS ---
The [address] [address] Patient Name: SERGIO MCKENNA MRN: [id number] date: 1970 Sex: M Assigned Patient Location: MRI Current Patient Location: MRI Accession/Order Number: [id number] Exam Date: 01/19/2025 22:48 Report Date: 01/19/2025 22:56 At the request of: CHANO DUMONT NP Procedure: MR cervical spine wo/w con MRI of the cervical spine performed without and with contrast INDICATION: Multiple sclerosis, follow-up COMPARISON: 06/23/2024 FINDINGS: The craniocervical junction is maintained. Cervical vertebral heights, alignment and bone marrow signal is unremarkable. Mild intervertebral space narrowing C4-C6. Prevertebral and paraspinal soft tissues are unremarkable. Cervical cord is a slight heterogeneous signal with abnormal signal right hemicord C2 C3 measuring 1.7 cm in length. Central areas of of increased T2 signal C4-C6. No evidence of abnormal enhancement within the cord or the cervical vertebral bodies. C2-3: Unremarkable. C3-C4: Minimal right uncovertebral spurring. No significant disc disease central canal or left foraminal narrowing. Minimal right foraminal encroachment. C4-C5: Broad-based disc osteophyte complex with uncovertebral spurring greatest left. Mild right moderate left neural foraminal narrowing. Minimal ventral canal effacement. C5-6: Mild broad-based disc bulge with uncovertebral spurring greatest right. Moderate to severe right and mild left-sided neural foraminal narrowing. Minimal canal narrowing. C6-C7: No significant disc disease central canal or right foraminal narrowing. Minimal left-sided uncovertebral spurring results in mild left foraminal encroachment. C7-T1: Minimal facet arthropathy. Otherwise no significant disease central canal or neural from narrowing identified. MR/MR cervical spine wo/w con IMPRESSION: Stable areas of demyelination involving cervical cord. No evidence of disease progression or active demyelination identified. Ihyj-ea-grdlxmnx degenerative changes notably from C5 through C7. Degenerative changes greatest on the right at C5-C6 Impression dictated by: Blanco Canseco M.D. 01/19/2025 10:56 PM Dictation Location: [place] [address] Electronically authenticated by: [id number] Y Date: 01/19/2025 22:56
--- NOTE | 2025-01-19 13:41 | MR_ITS ---
[facility] [place] [id number] Patient Name: SERGIO MCKENNA MRN: [id number] date: 1970 Sex: M Assigned Patient Location: MRI Current Patient Location: MRI Accession/Order Number: [id number] Exam Date: 01/19/2025 18:12 Report Date: 01/19/2025 18:18 At the request of: CHANO DUMOTN NP Procedure: MR head/brain wo/w con MRI BRAIN WITHOUT AND WITH INTRAVENOUS CONTRAST CLINICAL DATA: Multiple sclerosis COMPARISON: 06/22/2024 FINDINGS: No restricted diffusion to suggest acute stroke. Focal diffusion hyperintensity and T2 shine through right posterior frontal centrum semiovale bowel similar prior examination.. Mild generalized involutional changes with prominence of the ventricles and sulci. Mild to moderate burden of periventricular, subcortical and juxtacortical T2 FLAIR hyperintensity consistent with multiple sclerosis. Overall burden of T2 prolongation appears similar. No definite progression. Stable T1 hypointense lesions. No shift of midline structure. Basal cisterns are patent. 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 Following contrast administration, no evidence of abnormal postcontrast enhancement. Major intracranial arterial vascular flow was preserved. Minor paranasal sinus mucoperiosteal thickening. No paranasal sinus air-fluid levels. IMPRESSION: Stable mild to moderate burden of T2 hyperintensities suggestive of multiple sclerosis. No evidence of active demyelination. No evidence of acute intracranial process by MRI. Impression dictated by: Blanco Canseco M.D. 01/19/2025 6:18 PM Dictation Location: [place] [address] Electronically authenticated by: [id number] Y Date: 01/19/2025 18:18
--- OUTSIDE RECORDS SUMMARY | 2025-01-19 13:41 | XMS_ITS | Encounter Summary ---
Author Organization [facility] Address [address] [place] [address] Care Team Providers Care Patient Transportation Driver Name Role Phone Bubba Cruz MD Primary Care Provider [phone] Bubba Cruz MD Unavailable [phone] Elaina Burgess Unavailable Kenna Lockett RN Unavailable [phone] Stan Win MD Unavailable [phone] Bubba Cruz MD Unavailable [phone] Encounter Details Date Type Department Care Team (Late st Contact Info) Description 10/16/2023 Abstract [facility] [address] [facility] [address] Reginaldo Castelan MD [address] [facility] Social History Tobacco Use Types [...] How often do you attend chur or restorationist services? Never 01/23/2023 Do you belong to [...] FM [address] [place] [address] Bubba Cruz MD [address] [place] [address] (Fax) documented as of this encounter Visit Diagnoses Not on filedocumented in this encounter Care Teams Patient Transportation Driver Relationship Specialty Start Date End Date Bubba Cruz MD [address] [place] [address] (Fax) PCP - General Family Medicine 11/27/22 Bubba Cruz MD [address] [place] [address] (Fax) PCP - ACO Reach 12/04/22 08/18/24 Bubba Cruz MD [address] [place] [address] (Fax) PCP - ACO Reach 08/26/24 10/13/24 Elaina Burgess PA [address] [facility] [address] [place] [address] Physician Parts Salvager Neurology 12/02/23 Kenna Lockett, GRAHAM [address] [place] [address] Registered Nurse Family Medicine 12/02/23 Stan Win MD [address] [place] [address] Referring Physician Behavioral Health 12/02/23 documented as of this encounter
--- OUTSIDE RECORDS SUMMARY | 2025-01-19 13:41 | XMS_ITS | Encounter Summary ---
Author Organization [facility] Address [address] [place] [address] Care Team Providers Care Associate Professor Of Music Name Role Phone Bubba Ghotra MD Primary Care Provider + [phone] Bubba Ghotra MD Unavailable [phone] Elaina Burgess Unavailable Kenna Lockett RN Unavailable [phone] Stan Win MD Unavailable [phone] Bubba Ghotra MD Unavailable [phone] Encounter Details Date Type Department Care Team (Late st Contact Info) Description 09/18/2023 Clinisync Result Encounter [facility] External Department Unsolicited Bubba Ghotra MD 112 [facility] [address] [place] [address] Social History Tobacco Use Types [...] week 01/23/2023 How often do you attend [facility] or episcopalian services? Never 01/23/2023 Do [...] FM [address] [place] [address] Bubba Ghotra MD [address] [facility] [address] [place] [address] documented as of this encounter Procedures Procedure Name Priority Date/Time Associated Diagnosis Comments VASC US LOWER EXTREMITY VENOUS DUPLEX RIGHT 09/18/2023 11:50 AM EST documented in this encounter Results * Vascular US lower extremity venous duplex right (09/18/2023 11:50 AM EST) Anatomical Region Laterality Modality Lower Extremities Ultrasound 09/18/2023 11:5 0 AM EST Narrative 09/18/2023 11:53 AM EST The [address] [address] Ultrasound Report Signed Patient: HARISH EMMANUEL MR#: [id number] : 1970 Acct:[id number] Age/Sex: 53 / M ADM Date: 09/18/23 Loc: US Attending Dr: BUBBA GHOTRA Ordering Physician: BUBBA GHOTRA Date of Service: 09/18/23 Procedure(s): US venous doppler LE RT Accession Number(s): [id number] cc: BUBBA GHOTRA The [place] [address] Patient Name: HARISH EMMANUEL MRN: [id number] date: 1970 Sex: M Assigned Patient Location: US Current Patient Location: US Accession/Order Number: [id number] Exam Date: 09/18/2023 10:45 Report Date: 09/18/2023 [...] right lower extremity. Electronically authenticated by: JAVI PADILAL Date: 09/18/2023 11:50 Dictated By: Javi Padilla M.D. Signed By: 09/18/23 1153 DD/ 1150 TD/TT: Ic Design Manager: Procedure Note Radiology, Radiologist, MD - 09/18/2023 [place] [address] Ultrasound Report Signed Patient: HARISH EMMANUEL LMR#: [id number] : 1970Acct:[id number] Age/Sex: 53 / MADM Date: 09/18/23 Loc: US Attending Dr: BUBBA GHOTRA Ordering Physician: BUBBA GHOTRA Date of Service: 09/18/23 Procedure(s): US venous doppler LE RT Accession Number(s): [id number] cc: BUBBA GHOTRA [address] [address] Patient Name: HARISH EMMANUEL MRN: [id number] date: 1970 Sex: M Assigned Patient Location: US Current Patient Location: US Accession/Order Number: [id number] Exam Date: 09/18/2023 10:45 Report Date: 09/18/2023 [...] M.D. Signed By:09/18/23 1153 DD/ 1150 TD/TT: Ic Design Manager: Bubba Ghotra MD IMG US PROCEDURES Final Resu lt documented in this encounter Visit Diagnoses Not on filedocumented in this encounter Care Teams Associate Professor Of Music Relationship Specialty Start Date End Date Bubba Ghotra MD 112 [facility] 100 [place] [address] PCP - General Family Medicine 11/27/22 Bubba Ghotra MD [address] [place] [address] PCP - ACO Reach 12/04/22 08/18/24 Bubba Ghotra MD [address] [place] [address] PCP - ACO Reach 08/26/24 10/13/24 Elaina Burgess PA [address] [place] [address] Physician Header Setup Operator Neurology 12/02/23 Kenna Lockett RN [address] [place] [address] Registered Nurse Family Medicine 12/02/23 Stan Win MD [address] [place] [address] Referring Physician Behavioral Health 12/02/23 documented as of this encounter
--- OUTSIDE RECORDS SUMMARY | 2025-01-19 13:41 | XMS_ITS | Encounter Summary ---
Author Organization [facility] Address [address] [place] [address] Care Team Providers Care Blueprint Processor Name Role Phone Bubba Cruz MD Primary Care Provider [phone] Bubba Cruz MD Unavailable [phone] Elaina Burgess Unavailable Kenna Lockett RN Unavailable [phone] Stan Win MD Unavailable [phone] Bubba Cruz MD Unavailable [phone] Encounter Details Date Type Department Care Team (Late st Contact Info) Description 09/23/2023 Abstract [facility] [address] [place] [address] Mahnaz Roth MD [address] [place] [address] Social History Tobacco Use Types Packs/Day Years [...] FM [address] [place] [address] Bubba Cruz MD [address] [place] [address] documented as of this encounter Visit Diagnoses Not on filedocumented in this encounter Care Teams Blueprint Processor Relationship Specialty Start Date End Date Bubba Cruz MD [address] [place] [address] PCP - General Family Medicine 11/27/22 Bubba Cruz MD [address] [place] [address] PCP - ACO Reach 12/04/22 08/18/24 Bubba Cruz MD [address] [place] [address] PCP - ACO Reach 08/26/24 10/13/24 Elaina Burgess PA [address] [facility] [address] [place] [address] Physician Enterprise Business Architect Neurology 12/02/23 Kenna Lockett RN [address] [place] [address] Registered Nurse Family Medicine 12/02/23 Stan Win MD [address] [place] [address] Referring Physician Behavioral Health 12/02/23 documented as of this encounter
--- OUTSIDE RECORDS SUMMARY | 2025-01-19 13:41 | XMS_ITS | Encounter Summary ---
Author Organization [facility] Address [address] [place] [address] Care Team Providers Care Can Coverer Name Role Phone Bubba Cruz MD Primary Care Provider [phone] Elaina Burgess Unavailable Kenna Lockett RN Unavailable [phone] Stan Win MD Unavailable [phone] Reason for Visit * Reason Onset Date Comments Care Coordination 01/04/2025 Encounter Details Date Type Department Care Team (Late st Contact Info) Description 01/04/2025 Telephone [facility] [address] [place] [address] Myrna Oh MA Care Coordination Social History [...] How often do you attend chur or latter day services? Never 01/23/2023 Do you belong to any clubs o r organizations such as buddhism groups, unions, [employer] or athletic groups, or school groups? No [...] encounter Miscellaneous Notes * Telephone Encounter - Dolly Bowen NP - 01/17/2025 11:11 AM EDT MWV completed last week. Pt had labs completed at [facility] the day prior to his visit, so I did not draw. He reports that he has an upcoming urology surgical procedure due to his incontinence. Also stateshe has a pending pulmonology referral as his urologist would like pulmonology clearance prior to his surgery. Pt is due of a lung cancer screening due to his smoking history, but would like to hold off on this. Pt reported having increasing difficulty with medications and we discussed using a pharmacy that does pill packs to make it easier on him. He is going to check in with his current pharmacy. Advised to notify office if he needs assistance. Denies any other problems or concerns during his visit. Any questions, please let me know. Copy of my note was forwarded to Dr. Cruz as an FYI. * Addendum Note - Myrna Oh MA - 01/04/2025 9:59 AM EDTAddended by: MYRNA OH on: 01/04/2025 09:59 AM Modules accepted: Orders * Telephone Encounter - Myrna Almendarezkaren TIM - 01/04/2025 9:57 AM EDT Thank you Alecia. I added in fasting labs for a CMP and Lipid. * Telephone Encounter - Myrna AlmendarezTIM jones - 01/04/2025 8:[address] Cruz gave me the VO to possibly have the SALES LEDGER ADMINISTRATOR Alecia Bowen do the patients MWV at home due to his mobility issues from his MS. documented in this encounter Plan of Treatment Upcoming Encounters Date Type Department Care Team (Late st Contact Info) Description 01/23/2025 2:00 PM EDT Office Visit [facility] 100 [address] [facility] 100 [place] [address] Bubba Cruz MD 112 [facility] 100 [place] [address] Scheduled Orders Name Type Priority Associated Diagnoses [...] documented as of this encounter Care Teams Can Coverer Relationship Specialty Start Date End Date Bubba Cruz MD 112 [facility] 100 [place] [address] PCP - General Family Medicine 11/27/22 Elaina Burgess PA [address] [facility] [address] [place] [address] Physician Channel Development Director Neurology 12/02/23 Kenna Lockett, GRAHAM [address] [place] [address] Registered Nurse Family Medicine 12/02/23 Stan Win MD [address] [place] [address] Referring Physician Behavioral Health 12/02/23 documented as of this encounter
--- OUTSIDE RECORDS SUMMARY | 2025-01-19 13:41 | XMS_ITS | Encounter Summary ---
Author Organization [facility] Address [address] [place] [address] Care Team Providers Care Tobacco Grower Name Role Phone Bubba Cruz MD Primary Care Provider + [phone] Bubba Cruz MD Unavailable [phone] Elaina Burgess Unavailable Kenna Lockett RN Unavailable [phone] Stan Win MD Unavailable [phone] Bubba Cruz MD Unavailable [phone] Encounter Details Date Type Department Care Team (Late st Contact Info) Description 10/24/2023 Abstract [facility] [address] [place] [id number] Shaikh James MD [address] [place] [address] Social History Tobacco Use Types Packs/Day Years [...] any clubs o r organizations such as spiritism groups, unions, fraternal or athletic groups, or [...] FM [address] [place] [address] Bubba Cruz MD [address] [place] [address] documented as of this encounter Visit Diagnoses Not on filedocumented in this encounter Care Teams Tobacco Grower Relationship Specialty Start Date End Date Bubba Cruz MD [address] [place] [address] PCP - General Family Medicine 11/27/22 Bubba Cruz MD [address] [place] [address] PCP - ACO Reach 12/04/22 08/18/24 Bubba Cruz MD [address] [place] [address] PCP - ACO Reach 08/26/24 10/13/24 Elaina Burgess PA [address] [facility] [address] [place] [address] Physician Malthouse Laborer Neurology 12/02/23 Kenna Lockett RN [address] [place] [address] Registered Nurse Family Medicine 12/02/23 Stan Win MD [address] [place] [address] Referring Physician Behavioral Health 12/02/23 documented as of this encounter
--- OUTSIDE RECORDS SUMMARY | 2025-01-19 13:41 | XMS_ITS | Encounter Summary ---
Author Organization [facility] Address [address] [place] [address] Care Team Providers Care Education Nurse Name Role Phone Bubba Cruz MD Primary Care Provider [phone] Bubba Cruz MD Unavailable [phone] Elaina Burgess Unavailable Kenna Lockett RN Unavailable [phone] Stan Win MD Unavailable [phone] Bubba Cruz MD Unavailable [phone] Encounter Details Date Type Department Care Team (Late st Contact Info) Description 10/16/2023 Orders Only [facility] [address] [facility] [place] [address] Reginaldo Castelan MD [address] [facility] Social History Tobacco Use Types Packs/Day Years [...] How often do you attend chur or temple services? Never 01/23/2023 Do you belong to any clubs o r organizations such as hoahaoism groups, unions, fraternal or athletic groups, or [...] FM [address] [place] [address] Bubba Cruz MD [address] [facility] [address] [place] [address] documented as of this encounter Procedures Procedure Name Priority Date/Time Associated Diagnosis Comments XR CHEST 2 VIEWS Routine 10/16/2023 9:00 AM EDT documented in this encounter Results * XR chest 2 views (10/16/2023 9:00 AM EDT) Anatomical Region Laterality Modality Chest Radiographic Luciana ging Reginaldo Castelan MD IMG XR PROCEDURES Final Result documented in this encounter Visit Diagnoses Not on filedocumented in this encounter Care Teams Education Nurse Relationship Specialty Start Date End Date Bubba Cruz MD [address] [facility] [address] [place] [address] (Fax) PCP - General Family Medicine 11/27/22 Bubab Cruz MD [address] [place] [address] PCP - ACO Reach 12/04/22 08/18/24 Bubba Cruz MD [address] [place] [address] PCP - ACO Reach 08/26/24 10/13/24 Elaina Burgess PA [address] [place] [id number] Physician Heading Machine Operator Neurology 12/02/23 Kenna Lockett, GRAHAM [address] [place] [address] Registered Nurse Family Medicine 12/02/23 Stan Win MD [address] [place] [address] Referring Physician Behavioral Health 12/02/23 documented as of this encounter
== END 2025-01-19 13:38 | disposition home or self-care (01) ==
LOC: MRI 13:37
PROVIDERS: PCP Family Medicine; Visit Provider Nurse Practitioner Family
DX: G35 Multiple sclerosis (principal); M50.30 Other cervical disc degeneration, unspecified cervical region
CPT/HCPCS: 70553; 72156; A9575

== ENCOUNTER 2025-01-26 15:25 | Outpatient (OUT) | payer MEDICARE, MEDICAID, SELFPAY ==
--- OUTSIDE RECORDS SUMMARY | 2025-01-23 23:59 | XMS_ITS | Continuity of Care Document ---
Author Organization [facility] Address Unknown Care Team Providers Care Classified Advertising Supervisor Name Role Phone BRANDIN RANDALL Chand Primary Care Physician Unavail able Encounter FT_FIN [id number] Date(s): 01/23/25 - 01/23/[address] [address] Encounter Diagnosis Pulmonary infiltrate(Discharge Diagnosis) - 01/23/25 History of tobacco use(Discharge Diagnosis) - 01/23/25 SOB (shortness of breath)(Discharge Diagnosis) - 01/23/25 Discharge Disposition: Home (Routine DC) Attending Physician: Edward Amaya MD Referring Physician: Heri MURRELL MD Encounter Type: Outpatient Allergies, Adverse Reactions, Alerts Substance Criticality Severity Reaction Reaction Severity Status Effexor Unknown Active Paxil Mild Active Assessment and Plan Future Appointments Appointment Date:02/02/2025 01:30:00 PM Scheduled Provider: Location:FT.CARDIO Appointment Type:PUL Pulmonary Function Test (FT) Appointment Date:02/02/2025 02:30:00 PM Scheduled Provider: Location:.[facility]AN Appointment Type:CT Chest (FT) Future Scheduled Tests Radiology* CT Chest w/o Contrast 02/02/25 Immunizations Given and Recorded Vaccine Date Status Refusal Reason SARS-CoV-2 (COVID-19) mRNA BNT-162b2 vax 10/22/20 Recorded SARS-CoV-2 (COVID-19) mRNA BNT-162b2 vax 10/01/20 Recorded Medications aripiprazole 5 mg Tab 5 mg = 1 tab(s), Refills(s) 0 Start Date: 11/25/24 Status: Ordered Repeat number: 1 baclofen 20 mg Tab 20 mg = 1 tab(s), Refills(s) 0 Start Date: 11/25/24 Status: Ordered Repeat number: 1 cefdinir 300 mg Cap 300 mg = 1 cap(s), Refills(s) 0 Start Date: 11/25/24 Status: Ordered Repeat number: 1 clonazepam 1 mg Tab 1 mg = 1 tab(s), Refills(s) 0 Start Date: 11/25/24 Status: Ordered Repeat number: 1 duloxetine 60 mg oral delayed release capsule 60 mg = 1 cap(s), Refills(s) 0 Start Date: 11/25/24 Status: Ordered Repeat number: 1 losartan 100 mg Tab 100 mg = 1 tab(s), Refills(s) 0 Start Date: 11/25/24 Status: Ordered Repeat number: 1 Metoprolol tartrate 50 mg Tab 50 mg = 1 tab(s), Refills(s) 0 Start Date: 11/25/24 Status: Ordered Repeat number: 1 oxycodone 15 mg oral tablet 15 mg = 1 tab(s), Refills(s) 0 Start Date: 11/25/24 Status: Ordered Repeat number: [address] Tab 40 mg = 1 tab(s), Refills(s) 0 Start Date: 11/25/24 Status: Ordered Repeat number: 1 predniSONE 20 mg Tab 20 mg = 1 tab(s), Refills(s) 0 Start Date: 11/25/24 Status: Ordered Repeat number: 1 pregabalin 200 mg Cap 200 mg = 1 cap(s), Oral, TID, Refills(s) 0 Start Date: 11/25/24 Status: Ordered Repeat number: 1 primidone 50 mg Tab 50 mg = 1 tab(s), Refills(s) 0 Start Date: 11/25/24 Status: Ordered Repeat number: 1 SENNA 8.6 MG Tablet SENNA 8.6 MG Tablet, BID Start Date: 11/25/24 Status: Ordered Repeat number: 1 spironolactone 50 mg Tab 50 mg = 1 tab(s), Refills(s) 0 Start Date: 11/25/24 Status: Ordered Repeat number: 1 Symbicort 160/4.5 inhalation aerosol with adapter 2 inh, Refill(s) 0 Start Date: 11/25/24 Status: Ordered Repeat number: 1 tamsulosin 0.4 mg Cap 0.4 mg = 1 cap(s), Oral, Daily, # 30 cap(s), Refills(s) 11, [id number], 177, cm, 11/25/24 11:45:00 EDT, Height/Length Dosing, 68.5, kg, 11/25/24 11:45:00 EDT, Weight Dosing Start Date: 11/25/24 Status: Ordered Quantity: 30.0 Unit: cap(s) Repeat number: 12 Valium 5 mg Tab 5 mg = 1 tab(s), Oral, Once, Take 30 mins prior to procedure. 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 COPD (chronic obstructive pulmonary disease) Confirmed Active Depression Confirmed Active ED (erectile dysfunction) Confirmed Active Former smoker Confirmed Active Family history of bladder cancer Confirmed Active Feeling of incomplete bladder emptying Confirmed Active Hyperlipidemia Confirmed Active Epididymal mass Confirmed Active MS (multiple sclerosis) 1 Confirmed Active Pulmonary infiltrate Confirmed Active Elevated PSA Confirmed Active Urine retention Confirmed Active Urge incontinence Confirmed Active 2000 Procedures Procedure Date Related Diagnosis Body Site Status Flexible cystoscope 01/09/25 Compl eted Cystoscopy with Urolift 12/05/21 C ompleted Cystoscopy 10/14/21 Completed Cystoscopy 09/13/19 Completed Cholecystectomy Completed Social History Social History Type Response Smoking Status Former smoker, quit more than 30 days ago; Tobacco Use: Pt states he quit several months ago;Never; Type: Cigarettes entered on: 01/09/25 Sex Male Sex Representation Male (finding) Hospital Discharge Instructions Follow Up Care 01/09/2025 08:58:19 With:Monique DARLING, Edward Robles, PUL, GIUSEPPE Address: [address] [place] [address] [facility] [place], [place] [address]- When: Unknown Comments:after his testing is completed Patient Care team information Care Team Personnel Name: RANDALL GHOTRA MD Position: FT Physician Member Role: Primary Care Physician Address: [address] [place] [address] [place] Care Team Related Persons Name: RACHEAL MCKENNA Name: RACHEAL MCKENNA Insurance Providers Guarantor name: Health Plan Information #: 1 Payer: NA Payer Identifier: [id number] Member Number: [id number] Group Number: [id number] Subscriber Identifier: [id number] Relationship to Subscriber: Self Coverage Type: MEDICARE Coverage Verification Date: 25 Telecom: NA Address: NA Health Plan Information #: 2 Payer: NA Payer Identifier: [id number] Member Number: [id number] Group Number: [id number] Subscriber Identifier: [id number] Relationship to Subscriber: Self Coverage Type: MEDICAID Coverage Verification Date: 25 Telecom: NA Address:
--- OUTSIDE RECORDS SUMMARY | 2025-01-26 15:28 | XMS_ITS | Encounter Summary ---
Author Organization [facility] Address [address] [place] [address] Care Team Providers Care Information Systems Security Officer Name Role Phone Bubba Cruz MD Primary Care Provider Elaina Burgess Unavailable Kenna Lockett RN Unavailable [phone] Stan Win MD Unavailable [phone] Reason for Visit * Reason Comments Med Refill Encounter Details Date Type Department Care Team (Late st Contact Info) Description 01/18/2025 Refill [facility] [address] [place] [id number] Bubba Cruz MD [address] [place] [address] Simple chronic bronchitis (HCC) Social History Tobacco [...] any clubs o r organizations such as mormonism groups, unions, fraternal or athletic groups, or [...] as of this encounter Plan of Treatment Not on file documented as of this encounter Visit Diagnoses Diagnosis Simple chronic bronchitis (HCC) Simple chronic bronchitis documented in this encounter Additional Health Concerns Assessment Noted Time PHQ-9 Depression Total Score: 16 024 3:00 PM EDT documented as of this encounter Care Teams Information Systems Security Officer Relationship Specialty Start Date End Date Bubba Cruz MD [address] [address] (Fax) PCP - General Family Medicine 11/27/22 Elaina Burgess PA [address] [place] [address] Physician Casino Accountant Neurology 12/02/23 Kenna Lockett, GRAHAM [address] [facility] [address] [place] [address] Registered Nurse Family Medicine 12/02/23 Stan Win MD [address] [place] [address] Referring Physician Behavioral Health 12/02/23 documented as of this encounter
--- OUTSIDE RECORDS SUMMARY | 2025-01-26 15:28 | XMS_ITS | Encounter Summary ---
Author Organization [facility] Address [address] [place] [address] Care Team Providers Care Digital Media Coordinator Name Role Phone Bubba Cruz MD Primary Care Provider + [phone] Elaina Burgess Unavailable Kenna Lockett RN Unavailable [phone] Stan Win MD Unavailable [phone] Encounter Details Date Type Department Care Team (Late st Contact Info) Description 01/11/2025 Abstract [facility] [address] [place] [address] Bubba Cruz MD [address] [facility] [address] [place] [address] Social History Tobacco Use Types Packs/Day Years [...] How often do you attend chur or buddhist services? Never 01/23/2023 Do you belong to any clubs o r organizations such as adventism groups, unions, fraternal or athletic groups, or [...] documented as of this encounter Care Teams Digital Media Coordinator Relationship Specialty Start Date End Date Bubba Cruz MD [address] [place] [address] PCP - General Family Medicine 11/27/22 Elaina Burgess PA [address] [facility] [address] [place] [address] Physician Plant Operations Engineer Neurology 12/02/23 Kenna Lockett, GRAHAM [address] [place] [address] Registered Nurse Family Medicine 12/02/23 Stan Win MD [address] [place] [address] Referring Physician Behavioral Health 12/02/23 documented as of this encounter
--- OUTSIDE RECORDS SUMMARY | 2025-01-26 15:28 | XMS_ITS | Encounter Summary ---
Author Organization [facility] Address [address] [place] [address] Care Team Providers Care Scrub Tech Name Role Phone Bubba Cruz MD Primary Care Provider [phone] Elaina Burgess Unavailable Kenna Lockett RN Unavailable [phone] Stan Win MD Unavailable [phone] Reason for Visit * Reason Onset Date Comments Care Coordination 01/24/2025 Encounter Details Date Type Department Care Team (Late st Contact Info) Description 01/24/2025 Telephone [facility] [address] [place] [address] Myrna Mackay MA Care Coordination Social History Tobacco Use [...] encounter Miscellaneous Notes * Telephone Encounter - Viktoria Parker - 01/25/2025 1:25 PM EDT It was cancelled because they were sending him for a PFT and further testing. He had not been scheduled for the testing yet and he wanted Dr. Cruz to have the results before his appt. * Telephone Encounter - Myrna Mackay MA - 01/24/2025 12:36 PM EDT [facility] sent a fax asking for the progress notes from yesterday but I see that it was cancelled by patient? documented in this encounter Plan of Treatment Not on file documented as of this encounter Visit Diagnoses Not on filedocumented in this encounter Additional Health Concerns Assessment Noted Time PHQ-9 Depression Total Score: 16 024 3:00 PM EDT documented as of this encounter Care Teams Scrub Tech Relationship Specialty Start Date End Date Bubba Cruz MD [address] [address] PCP - General Family Medicine 11/27/22 Elaina Burgess PA [address] [place] [address] Physician Extrusion Die Corrector Neurology 12/02/23 Kenna Lockett, GRAHAM [address] [place] [address] Registered Nurse Family Medicine 12/02/23 Stan Win MD [address] [place] [address] Referring Physician Behavioral Health 12/02/23 documented as of this encounter
--- OUTSIDE RECORDS SUMMARY | 2025-01-26 15:28 | XMS_ITS | Encounter Summary ---
Author Organization [facility] Address [address] [place] [address] Care Team Providers Care Electronic Induction Hardener Name Role Phone Bubba Cruz MD Primary Care Provider + [phone] Elaina Burgess Unavailable Kenna Lockett RN Unavailable [phone] Stan Win MD Unavailable [phone] Encounter Details Date Type Department Care Team (Late st Contact Info) Description 01/18/2025 Telephone [facility] [address] [place] [address] Bubba Cruz MD 112 [facility] [address] [place] [address] Social History Tobacco Use Types Packs/Day Years [...] How often do you attend chur or nondenominational services? Never 01/23/2023 Do you belong to any clubs o r organizations such as jainism groups, unions, fraternal or athletic groups, or [...] Diagnosis Venous insufficiency Unspecified venous (peripheral) insufficiency documented in this encounter Additional Health Concerns Assessment Noted Time PHQ-9 Depression Total Score: 16 024 3:00 PM EDT documented as of this encounter Care Teams Electronic Induction Hardener Relationship Specialty Start Date End Date Bubba Cruz MD [address] [address] PCP - General Family Medicine 5/18/23 Elaina Burgess PA [address] [place] [id number] Physician Sql Consultant Neurology 12/02/23 Kenna Lockett, GRAHAM [address] [place] [address] Registered Nurse Family Medicine 12/02/23 Stan Win MD [address] [place] [address] Referring Physician Behavioral Health 12/02/23 documented as of this encounter
--- OUTSIDE RECORDS SUMMARY | 2025-01-26 15:29 | XMS_ITS | Encounter Summary ---
Author Organization [facility] Address [address] [place] [address] Care Team Providers Care Chain Hoist Operator Name Role Phone Bubba Cruz MD Primary Care Provider + [phone] Elaina Burgess Unavailable Kenna Lockett RN Unavailable [phone] Stan Win MD Unavailable [phone] Encounter Details Date Type Department Care Team (Late st Contact Info) Description 01/23/2025 Abstract [facility] [address] [place] [address] Bubba Cruz MD 112 [facility] [place] [address] [place] [address] Social History Tobacco Use Types Packs/Day Years [...] How often do you attend chur or jainism services? Never 01/23/2023 Do you belong to any clubs o r organizations such as taoist groups, unions, fraternal or athletic groups, or [...] documented as of this encounter Care Teams Chain Hoist Operator Relationship Specialty Start Date End Date Bubba Cruz MD [address] [place] [address] PCP - General Family Medicine 11/27/22 Elaina Burgess PA [address] [facility] [address] [place] [address] Physician Robotics Technician Neurology 12/02/23 Kenna Lockett, GRAHAM [address] [place] [address] Registered Nurse Family Medicine 12/02/23 Stan Win MD [address] [place] [address] Referring Physician Behavioral Health 12/02/23 documented as of this encounter
--- OUTSIDE RECORDS SUMMARY | 2025-01-26 15:29 | XMS_ITS | Clinical Summary ---
Author Organization [employer] [facility] tem Address [id number] [address] [place] [address] Care Team Providers Care Sieve Repairer Name Role Phone Unavailable Primary Care Provider Unavailabl e Medications * This document contains information received from the source organization and may not represent a complete record from that organization. OCREVUS 30 mg/mL injection 2 Active baclofen (LIORESAL) 10 mg tablet Take 1 tablet (10 mg total) by mouth in the morning and 1 tablet (10 mg total) at noon and 1 tablet (10 mg total) in the evening and 1 tablet (10 mg total) before bedtime. 2 Active SYMBICORT 160-4.5 mcg/actuation inhaler Inhale 2 puffs in the morning and 2 puffs before bedtime. 2 Active losartan (COZAAR) 100 mg tablet Take 1 tablet (100 mg total) by mouth in the morning. 2 Active meclizine (ANTIVERT) 25 mg tablet TAKE ONE TABLET BY MOUTH THREE TIMES A DAY NEEDED FOR 30 DAYS 2 Active metoprolol tartrate (LOPRESSOR) 50 mg tablet Take 1 tablet (50 mg total) by mouth in the morning and 1 tablet (50 mg total) before bedtime. 2 Active OXcarbazepine (TRILEPTAL) 300 mg tablet Take 1 tablet (300 mg total) by mouth in the morning and 1 tablet (300 mg total) before bedtime. 2 Active pantoprazole (PROTONIX) 40 mg EC tablet TAKE ONE TABLET BY MOUTH TWICE A DAY FOR 30 DAYS 2 Active pregabalin (LYRICA) 200 mg capsule TAKE ONE CAPSULE BY MOUTH THREE TIMES A DAY FOR 30 DAYS 2 Active primidone (MYSOLINE) 50 mg tablet 2 tablets (100 mg total) once daily at bedtime. 2 Active medical marijuana Inhale. Active QUEtiapine (SEROquel) 50 mg tablet TAKE 1-2 TABLETS (50-100 MG) BY MOUTH AT BEDTIME. MAY REPEAT IN ABOUT 4 HOURS UPON AWAKENING Active DULoxetine (CYMBALTA) 60 mg capsuleIndicati ons:Moderate episode of recurrent major depressive disorder (CMS-HCC) Take 2 capsules (120 mg total) by mouth in the morning. 180 capsule 3 4 Active oxyCODONE (ROXICODONE) 15 mg immediate release tablet 1 tablet (15 mg total). Active spironolactone (ALDACTONE) 50 mg tablet TAKE 1 TABLET (50 MG) BY MOUTH DAILY Active ARIPiprazole (ABILIFY) 5 mg tabletIndicatio ns:Moderate episode of recurrent major depressive disorder (CMS-HCC) Take 1 tablet (5 mg total) by mouth in the morning. 90 tablet 1 5 Active clonazePAM (KlonoPIN) 1 mg tabletIndicatio ns:Generalized anxiety disorder TAKE 1 TABLET (1 MG TOTAL) BY MOUTH IN THE MORNING AND 1 TABLET (1 MG TOTAL) BEFORE BEDTIME. 60 tablet 2 5 Active Active Problems Problem Noted Date Diagnosed Date Moderate episode of recurrent major depressive d isorder 05/13/2022 Generalized anxiety disorder 05/13/2022 Social anxiety disorder 05/13/2022 Multiple sclerosis 05/13/2022 Encounters * This document contains information received from the source organization and may not represent a complete record from that organization. Date Type Department Care Team Description 12/19/2024 Orders Only [facility] [address] [place] [address] Stan Win MD from Last [...]
--- OUTSIDE RECORDS SUMMARY | 2025-01-26 15:29 | XMS_ITS | Encounter Summary ---
Author Organization [facility] Address [address] [place] [address] Care Team Providers Care Irrigating Pump Operator Name Role Phone Bubba Cruz MD Primary Care Provider [phone] Bubba Cruz MD Unavailable [phone] Elaina Burgess Unavailable Kenna Lockett RN Unavailable [phone] Stan Win MD Unavailable [phone] Bubba Cruz MD Unavailable [phone] Encounter Details Date Type Department Care Team (Late st Contact Info) Description 01/05/2023 Orders Only [facility] [address] [facility] [place] [address] Bubba Cruz MD 112 [facility] 100 [place] [address] (Fax) Social History Tobacco Use [...] and Family Not on file 12/01/2022 Attends [employer] Not on file 12/01 Active Member [...] place to sleep or slept in a fci (including now)? No 12/01/2022 Sex and Gender Information Value Date Recorded Sex Assigned at Not on file Legal Sex Male 7:09 PM EDT Gender Identity Not on file Sexual Orientation Not on file documented as of this encounter Plan of Treatment Not on file documented as of this encounter Visit Diagnoses Not on filedocumented in this encounter Care Teams Irrigating Pump Operator Relationship Specialty Start Date End Date Bubba Cruz MD [address] [place] [address] [address] PCP - General Family Medicine 11/27/22 Bubba Cruz MD [address] [address] PCP - ACO Reach 12/04/22 08/18/24 Bubba Cruz MD [address] [address] PCP - ACO Reach 08/26/24 10/13/24 Elaina Burgess PA 5433 [facility] [address] [place], [place] [phone] Physician Containers Sales Representative Neurology 12/02/23 Kenna Lockett RN [address] [place] [address] Registered Nurse Family Medicine 12/02/23 Stan Win MD [address] [place] [address] Referring Physician Behavioral Health 12/02/23 documented as of this encounter
--- OUTSIDE RECORDS SUMMARY | 2025-01-26 15:29 | XMS_ITS | Encounter Summary ---
Author Organization [facility] Address [address] [place] [address] Care Team Providers Care Air Route Controller Name Role Phone Bubba Cruz MD Primary Care Provider Bubba Cruz MD Unavailable [phone] Elaina Burgess Unavailable Kenna Lockett RN Unavailable [phone] Stan Win MD Unavailable [phone] Bubba Cruz MD Unavailable [phone] Encounter Details Date Type Department Care Team (Late st Contact Info) Description 02/25/2023 Abstract [facility] [address] [place] [address] Bubba Cruz MD 112 [facility] 100 [place] [address] (Fax) Social History Tobacco Use [...] any clubs o r organizations such as pentecostalism groups, unions, fraternal or athletic groups, or [...] on filedocumented in this encounter Care Teams Air Route Controller Relationship Specialty Start Date End Date Bubba Cruz MD [address] [address] PCP - General Family Medicine 11/27/22 Bubba Cruz MD [address] [place] [address] PCP - ACO Reach 12/04/22 08/18/24 Bubba Cruz MD [address] [facility] [place] [address] PCP - ACO Reach 08/26/24 10/13/24 Elaina Burgess PA [address] [place] [phone] Physician Filament Cutter Neurology 12/02/23 Kenna Lockett, GRAHAM [address] [facility] 230 [place] [address] Registered Nurse Family Medicine 12/02/23 Stan Win MD [address] [facility] 230 [place] [address] Referring Physician Behavioral Health 12/02/23 documented as of this encounter
--- OUTSIDE RECORDS SUMMARY | 2025-01-26 15:29 | XMS_ITS | Clinical Summary ---
Author Organization [facility] Address [address] [facility], [address] [place] [address] Care Team Providers Care Pole Framer Machine Name Role Phone Unavailable Primary Care Provider [...]
--- OUTSIDE RECORDS SUMMARY | 2025-01-26 15:29 | XMS_ITS | Encounter Summary ---
Author Organization [facility] Address [address] [place] [address] Care Team Providers Care Furniture Inspector Name Role Phone Bubba Ghotra MD Primary Care Provider + [phone] Elaina Burgess Unavailable Kenna Lockett RN Unavailable [phone] Stan Win MD Unavailable [phone] Encounter Details Date Type Department Care Team (Late st Contact Info) Description 01/19/2025 Clinisync Result Encounter [facility] External Department Unsolicited Provider, Generic External Data Social History Tobacco Use Types Packs/Day Years [...] often do you attend chur ch or lutheran services? Never 01/23/2023 Do you belong to [...] on file documented as of this encounter Procedures Procedure Name Priority Date/Time Associated Diagnosis Comments MR CERVICAL SPINE WO/W CON 01/19/2025 10:56 PM EDT documented in this encounter Results * MR CERVICAL SPINE WO/W CON (01/19/2025 10:56 PM EDT) Anatomical Region Laterality Modality Other 01/19/2025 10:5 6 PM EDT Narrative 01/19/2025 10:58 [place] [address] Magnetic Resonance Report Signed Patient: HARISH EMMANUEL MR#: [id number] : 1970 Acct:[id number] Age/Sex: 54 / M ADM Date: 01/19/25 Loc: MRI Attending Dr: Chano Dumont NP Ordering Physician: Chano Dumont NP Date of Service: 01/19/25 Procedure(s): MR cervical spine wo/w con Accession Number(s): [id number] cc: Chano Dumont NP; BUBBA GHOTRA [place] [id number] Patient Name: HARISH EMMANUEL MRN: [id number] date: 1970 Sex: M Assigned Patient Location: MRI Current Patient Location: MRI Accession/Order Number: [id number] Exam Date: 01/19/2025 22:48 Report Date: 01/19/2025 22:56 At the request of: CHANO DUMONT NP Procedure: MR cervical spine wo/w con MRI of the cervical spine performed without and with contrast INDICATION: Multiple sclerosis, follow-up COMPARISON: 06/23/2024 FINDINGS: The craniocervical junction is maintained. Cervical vertebral heights, alignment and bone marrow signal is unremarkable. Mild intervertebral space narrowing C4-C6. Prevertebral and paraspinal soft tissues are unremarkable. Cervical cord is a slight heterogeneous signal with abnormal signal right hemicord C2 C3 measuring 1.7 cm in length. Central areas of of increased T2 signal C4-C6. No evidence of abnormal enhancement within the cord or the cervical vertebral bodies. C2-3: Unremarkable. C3-C4: Minimal right uncovertebral spurring. No significant disc disease central canal or left foraminal narrowing. Minimal right foraminal encroachment. C4-C5: Broad-based disc osteophyte complex with uncovertebral spurring greatest left. Mild right moderate left neural foraminal narrowing. Minimal ventral canal effacement. C5-6: Mild broad-based disc bulge with uncovertebral spurring greatest right. Moderate to severe right and mild left-sided neural foraminal narrowing. Minimal canal narrowing. C6-C7: No significant disc disease central canal or right foraminal narrowing. Minimal left-sided uncovertebral spurring results in mild left foraminal encroachment. C7-T1: Minimal facet arthropathy. Otherwise no significant disease central canal or neural from narrowing identified. MR/MR cervical spine wo/w con IMPRESSION: Stable areas of demyelination involving cervical cord. No evidence of disease progression or active demyelination identified. Jsce-oj-[id number] degenerative changes notably from C5 through C7. Degenerative changes greatest on the right at C5-C6 Impression dictated by: Blanco Canseco M.D. 01/19/2025 10:56 PM Dictation Location: [place] [address] Electronically authenticated by: [id number] Y Date: 01/19/2025 22:56 Dictated By: Blanco Canseco M.D. Signed By: 01/19/25 2258 DD/ 55 TD/TT: Office Asst: Procedure Note Radiology, Radiologist, - 01/19/[address] [address] Magnetic Resonance Report Signed Patient: HARISH EMMANUEL LMR#: [id number] : 1970Acct:[id number] Age/Sex: 54 / MADM Date: 01/19/25 Loc: MRI Attending Dr: Chano Dumont NP Ordering Physician: Chano Dumont NP Date of Service: 01/19/25 Procedure(s): MR cervical spine wo/w con Accession Number(s): [id number] cc: Chano Dumont NP; BUBBA GHOTRA [place] [id number] Patient Name: HARISH EMMANUEL MRN: [id number] date: 1970 Sex: M Assigned Patient Location: MRI Current Patient Location: MRI Accession/Order Number: [id number] Exam Date: 01/19/2025 22:48 Report Date: 01/19/2025 22:56 At the request of: CHANO DUMONT NP Procedure: MR cervical spine wo/w con MRI of the cervical spine performed without and with contrast INDICATION: Multiple sclerosis, follow-up COMPARISON: 06/23/2024 FINDINGS: The craniocervical junction is maintained. Cervical vertebral heights, alignment and bone marrow signal is unremarkable. Mild intervertebral space narrowing C4-C6. Prevertebral and paraspinal soft tissues are unremarkable. Cervical cord is a slight heterogeneous signal with abnormal signal right hemicord C2 C3 measuring 1.7 cm in length. Central areas of of increasedT2 signal C4-C6. No evidence of abnormal enhancement within the cord or the cervical vertebral bodies. C2-3: Unremarkable. C3-C4: Minimal right uncovertebral spurring. No significant disc disease central canal or left foraminal narrowing. Minimal right foraminal encroachment. C4-C5: Broad-based disc osteophyte complex with uncovertebral spurring greatest left. Mild right moderate left neural foraminal narrowing.Minimal ventral canal effacement. C5-6: Mild broad-based disc bulge with uncovertebral spurring greatestright. Moderate to severe right and mild left-sided neural foraminal narrowing. Minimal canal narrowing. C6-C7: No significant disc disease central canal or right foraminalnarrowing. Minimal left-sided uncovertebral spurring results in mild left foraminal encroachment. C7-T1: Minimal facet arthropathy. Otherwise no significant diseasecentral canal or neural from narrowing identified. MR/MR cervical spine wo/w con IMPRESSION: Stable areas of demyelination involving cervical cord. No evidence ofdisease progression or active demyelination identified. Npwl-[id number] degenerative changes notably from C5 through C7. Degenerative changes greatest on the right at C5-C6 Impression dictated by: Blanco Canseco M.D. 01/19/2025 10:56 PM Dictation Location: [place] [address] Electronically authenticated by: [id number] Y Date: 2:56 Dictated By: Blanco Canseco M.D. Signed By:01/19/252257 DD/ 55 TD/TT: Office Asst: [email or web address] External Data Provider [facility] Final Result documented in this encounter Visit Diagnoses Not on filedocumented in this encounter Additional Health Concerns Assessment Noted Time PHQ-9 Depression Total Score: 16 024 3:00 PM EDT documented as of this encounter Care Teams Furniture Inspector Relationship Specialty Start Date End Date Bubba Ghotra MD [address] [address] (Fax) PCP - General Family Medicine 11/27/22 Elaina Burgess PA [address] [place] [phone] Physician Interior Design Program Chair Neurology 12/02/23 Kenna Lockett, GRAHAM [address] [address] [address] [place] [address] Registered Nurse Family Medicine 12/02/23 Stan Win MD [address] [place] [address] Referring Physician Behavioral Health 12/02/23 documented as of this encounter
--- OUTSIDE RECORDS SUMMARY | 2025-01-26 15:29 | XMS_ITS | Encounter Summary ---
Author Organization [facility] Address [address] [place] [address] Care Team Providers Care Clearing Distribution Clerk Name Role Phone Bubba Cruz MD Primary Care Provider [phone] Bubba Cruz MD Unavailable [phone] Elaina Burgess Unavailable Kenna Lockett RN Unavailable [phone] Stan Win MD Unavailable [phone] Bubba Cruz MD Unavailable [phone] Encounter Details Date Type Department Care Team (Late st Contact Info) Description 08/27/2023 Abstract [facility] [address] [place] [address] Antony Pedersen MD [address] [place] [phone] Social History Tobacco Use Types Packs/Day Years [...] on filedocumented in this encounter Care Teams Clearing Distribution Clerk Relationship Specialty Start Date End Date Bubba Cruz MD [address] [address] (Fax) PCP - General Family Medicine 11/27/22 Bubba Cruz MD [address] [place] [address] (Fax) PCP - ACO Reach 12/04/22 08/18/24 Bubba Cruz MD [address] [place] [address] (Fax) PCP - ACO Reach 08/26/24 10/13/24 Elaina Burgess PA 54[address] [facility] [address] [facility] [place] [address] Physician Regional Office Coordinator Neurology 12/02/23 Kenna Lockett, GRAHAM [address] [place] [address] Registered Nurse Family Medicine 12/02/23 Stan Win MD [address] [place] [address] Referring Physician Behavioral Health 12/02/23 documented as of this encounter
--- OUTSIDE RECORDS SUMMARY | 2025-01-26 15:29 | XMS_ITS | Encounter Summary ---
Author Organization [facility] Address [address] [place] [address] Care Team Providers Care Truck Body Builder Name Role Phone Bubba Cruz MD Primary Care Provider [phone] Bubba Cruz MD Unavailable [phone] Elaina Burgess Unavailable eKnna Lockett RN Unavailable [phone] Stan Win MD Unavailable [phone] Bubba Cruz MD Unavailable [phone] Encounter Details Date Type Department Care Team (Late st Contact Info) Description 02/12/2023 Orders Only [facility] [address] [facility] [place] [address] Bubba Cruz MD 112 [facility] [address] [place] [address] (Fax) Primary hypertension (Primary Dx); [...] How often do you attend chur or alevism services? Never 01/23/2023 Do you belong to any clubs o r organizations such as religious groups, unions, fraternal or athletic groups, or [...] Primary Unspecified essential hypertension Insomnia, unspecified type documented in this encounter Care Teams Truck Body Builder Relationship Specialty Start Date End Date Bubba Cruz MD [address] [address] (Fax) PCP - General Family Medicine 11/27/22 Bubba Cruz MD 112 [address] [place] [address] (Fax) PCP - ACO Reach 12/04/22 08/18/24 Bubba Cruz MD 112 [address] [place] [address] (Fax) PCP - ACO Reach 08/26/24 10/13/24 Elaina Burgess PA [address] [facility] [address] [place] [phone] Physician Processing Mgr Neurology 12/02/23 Kenna Lockett, GRAHAM [address] [place] [address] Registered Nurse Family Medicine 12/02/23 Stan Win MD [address] [place] [address] Referring Physician Behavioral Health 12/02/23 documented as of this encounter
--- OUTSIDE RECORDS SUMMARY | 2025-01-26 15:29 | XMS_ITS | Encounter Summary ---
Author Organization [facility] Address [address] [place] [address] Care Team Providers Care Time Motion Analyst Name Role Phone Bubba Cruz MD Primary Care Provider + [phone] Elaina Burgess Unavailable Kenna Lockett RN Unavailable [phone] Stan Win MD Unavailable [phone] Encounter Details Date Type Department Care Team (Late st Contact Info) Description 01/23/2025 Abstract [facility] [address] [place] [address] Bubba Cruz MD 112 [facility] [address] [place] [address] Social History Tobacco Use Types Packs/Day Years [...] How often do you attend chur or taoist services? Never 01/23/2023 Do you belong to [...] documented as of this encounter Care Teams Time Motion Analyst Relationship Specialty Start Date End Date Bubba Cruz MD [address] [place] [address] PCP - General Family Medicine 11/27/22 Elaina Burgess PA 54[address] [facility] [address] [place] [address] Physician Brick Kiln Burner Neurology 12/02/23 Kenna Lockett, GRAHAM [address] [place] [address] Registered Nurse Family Medicine 12/02/23 Stan Win MD [address] [place] [address] Referring Physician Behavioral Health 12/02/23 documented as of this encounter
--- OUTSIDE RECORDS SUMMARY | 2025-01-26 15:29 | XMS_ITS | Encounter Summary ---
Author Organization [facility] Address [address] [place] [address] Care Team Providers Care Gas Pit Worker Name Role Phone Bubba Cruz MD Primary Care Provider Bubba Cruz MD Unavailable [phone] Elaina Burgess Unavailable Kenna Lockett RN Unavailable [phone] Stan Win MD Unavailable [phone] Bubba Cruz MD Unavailable [phone] Encounter Details Date Type Department Care Team (Late st Contact Info) Description 07/29/2023 Abstract [facility] [address] [place] [address] Bubba Cruz MD 112 [facility] 100 [place] [address] (Fax) Social History Tobacco Use [...] How often do you attend chur or synagogue services? Never 01/23/2023 Do you belong to any clubs o r organizations such as zoroastrianism groups, unions, fraternal or athletic groups, or [...] on filedocumented in this encounter Care Teams Gas Pit Worker Relationship Specialty Start Date End Date Bubba Cruz MD [address] [address] (Fax) PCP - General Family Medicine 11/27/22 Bubba Cruz MD [address] [address] (Fax) PCP - ACO Reach 12/04/22 08/18/24 Bubba Cruz MD [address] [address] (Fax) PCP - ACO Reach 08/26/24 10/13/24 Elaina Burgess PA [address] [facility] [address] [place] [address] Physician Freight Agent Neurology 12/02/23 Kenna Lockett, GRAHAM [address] [place] [address] Registered Nurse Family Medicine 12/02/23 Stan Win MD [address] [place] [address] Referring Physician Behavioral Health 12/02/23 documented as of this encounter
--- OUTSIDE RECORDS SUMMARY | 2025-01-26 15:29 | XMS_ITS | Encounter Summary ---
Author Organization [facility] Address [address] [place] [address] Care Team Providers Care Operating Room Surgical Technologist Name Role Phone Bubba Ghotra MD Primary Care Provider + [phone] Elaina Burgess Unavailable Kenna Lockett RN Unavailable [phone] Stan Win MD Unavailable [phone] Encounter Details Date Type Department Care [...] often do you attend chur ch or protestant services? Never 01/23/2023 Do you belong to [...] Associated Diagnosis Comments MRI HEAD/BRAIN WO/W CONTR 01/19/2025 6:18 PM EDT documented in this encounter Results * MRI HEAD/BRAIN WO/W CONTR (01/19/2025 6:18 PM EDT) Anatomical Region Laterality Modality Radiographic Luciana ging 01/19/2025 6:18 PM EDT Narrative 01/19/2025 6:20 [place] [address] Magnetic Resonance Report Signed Patient: HARISH EMMANUEL MR#: [id number] : 1970 Acct:[id number] Age/Sex: 54 / M ADM Date: 01/19/25 Loc: MRI Attending Dr: Chano Dumont BUCK PRESSER Ordering Physician: Chano Dumont NP Date of Service: 01/19/25 Procedure(s): MR head/brain wo/w con Accession Number(s): [id number] cc: Chano Dumont NP; BUBBA GHOTRA [address] [address] Patient Name: HARISH EMMANUEL MRN: [id number] date: 1970 Sex: M Assigned Patient Location: MRI Current Patient Location: MRI Accession/Order Number: [id number] Exam Date: 01/19/2025 18:12 Report Date: 01/19/2025 18:18 At the request of: CHANO DUMONT NP Procedure: MR head/brain wo/w con MRI BRAIN WITHOUT AND WITH INTRAVENOUS CONTRAST CLINICAL DATA: Multiple sclerosis COMPARISON: 06/22/2024 FINDINGS: No restricted diffusion to suggest acute stroke. Focal diffusion hyperintensity and T2 shine through right posterior frontal centrum semiovale bowel similar prior examination.. Mild generalized involutional changes with prominence of the ventricles and sulci. Mild to moderate burden of periventricular, subcortical and juxtacortical T2 FLAIR hyperintensity consistent with multiple sclerosis. Overall burden of T2 prolongation appears similar. No definite progression. Stable T1 hypointense lesions. No shift of midline structure. Basal cisterns are patent. 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 Following contrast administration, no evidence of abnormal postcontrast enhancement. Major intracranial arterial vascular flow was preserved. Minor paranasal sinus mucoperiosteal thickening. No paranasal sinus air-fluid levels. IMPRESSION: Stable mild to moderate burden of T2 hyperintensities suggestive of multiple sclerosis. No evidence of active demyelination. No evidence of acute intracranial process by MRI. Impression dictated by: Blanco Canseco M.D. 01/19/2025 6:18 PM Dictation Location: [place] [address] Electronically authenticated by: [id number] Y Date: 01/19/2025 18:18 Dictated By: Blanco Canseco M.D. Signed By: 01/19/25 182 DD/ TD/TT: Ribbon Lapper Tender: Procedure Note Radiology, Radiologist, MD - 01/19/2025 [place] [address] Magnetic Resonance Report Signed Patient: HARISH EMMANUEL LMR#: [id number] : 1970Acct:[id number] Age/Sex: 54 / MADM Date: 01/19/25 Loc: MRI Attending Dr: Chano Dumont NP Ordering Physician: Chano Dumont NP Date of Service: 01/19/25 Procedure(s): MR head/brain wo/w con Accession Number(s): [id number] cc: Chano Dumont BUCK PRESSER; BUBBA GHOTRA [place] [id number] Patient Name: HARISH EMMANUEL MRN: [id number] date: 1970 Sex: M Assigned Patient Location: MRI Current Patient Location: MRI Accession/Order Number: [id number] Exam Date: 01/19/2025 18:12 Report Date: 01/19/2025 18:18 At the request of: CHANO DUMONT NP Procedure: MR head/brain wo/w con MRI BRAIN WITHOUT AND WITH INTRAVENOUS CONTRAST CLINICAL DATA: Multiple sclerosis COMPARISON: 06/22/2024 FINDINGS: No restricted diffusion to suggest acute stroke. Focal diffusion hyperintensity and T2 shine through right posterior frontal centrumsemiovale bowel similar prior examination.. Mild generalized involutional changes with prominence of the ventriclesand sulci. Mild to moderate burden of periventricular, subcortical and juxtacortical T2 FLAIR hyperintensity consistent with multiple sclerosis. Overall burden of T2 prolongation appears similar. No definiteprogression. Stable T1 hypointense lesions. No shift of midline structure. Basal cisterns are patent. 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 Following contrast administration, no evidence of abnormal postcontrast enhancement. Major intracranialarterial vascular flow was preserved. Minor paranasal sinus mucoperiosteal thickening. No paranasal sinusair-fluid levels. IMPRESSION: Stable mild to moderate burden of T2 hyperintensities suggestive ofmultiple sclerosis. No evidence of active demyelination. No evidence of acute intracranial process by MRI. Impression dictated by: Blanco Canseco M.D. 01/19/2025 6:18 PM Dictation Location: [place] [address] Electronically authenticated by: [id number] Y Date: 8:18 Dictated By: Blanco Canseco M.D. Signed By:01/19/251819 DD/ 17 TD/TT: Ribbon Lapper Tender: us Generic External Data Provider IMG XR PROCEDURES Final Result documented in this encounter Visit Diagnoses Not on filedocumented in this encounter Additional Health Concerns Assessment Noted Time PHQ-9 Depression Total Score: 16 024 3:00 PM EDT documented as of this encounter Care Teams Operating Room Surgical Technologist Relationship Specialty Start Date End Date Bubba Ghotra MD 112 [facility] [address] [place] [address] PCP - General Family Medicine 11/27/22 Elaina Burgess PA [address] [place] [address] Physician Preschool Lead Teacher Neurology 12/02/23 Kenna Lockett RN [address] [place] [address] Registered Nurse Family Medicine 12/02/23 Stan Win MD [address] [place] [address] Referring Physician Behavioral Health 12/02/23 documented as of this encounter
--- OUTSIDE RECORDS SUMMARY | 2025-01-26 15:29 | XMS_ITS | Encounter Summary ---
Author Organization [facility] Address [address] [place] [address] Care Team Providers Care Director Global Development Name Role Phone Bubba Cruz MD Primary Care Provider [phone] Bubba Cruz MD Unavailable [phone] Elaina Burgess Unavailable Kenna Lockett RN Unavailable [phone] Stan Win MD Unavailable [phone] Bubba Cruz MD Unavailable [phone] Encounter Details Date Type Department Care Team (Late st Contact Info) Description 05/14/2023 Abstract [facility] [address] [place] [address] Elaina Burgess PA [address] [place], [place] [id number] Social History Tobacco Use Types Packs/Day Years [...] How often do you attend chur or catholic services? Never 01/23/2023 Do you belong to [...] on filedocumented in this encounter Care Teams Director Global Development Relationship Specialty Start Date End Date Bubba Cruz MD [address] [address] (Fax) PCP - General Family Medicine 11/27/22 Bubba Cruz MD [address] [address] (Fax) PCP - ACO Reach 12/04/22 08/18/24 Bubba Cruz MD [address] [address] (Fax) PCP - ACO Reach 08/26/24 10/13/24 Elaina Burgess PA [facility] [facility] [address] [place] [address] Physician Government Program Manager Neurology 12/02/23 Kenna Lockett, GRAHAM [address] [place] [address] Registered Nurse Family Medicine 12/02/23 Stan Win MD [address] [place] [address] Referring Physician Behavioral Health 12/02/23 documented as of this encounter
--- OUTSIDE RECORDS SUMMARY | 2025-01-26 15:29 | XMS_ITS | Encounter Summary ---
Author Organization [facility] Address [address] [place] [address] Care Team Providers Care Salt Maker Name Role Phone Bubba Cruz MD Primary Care Provider [phone] Bubba Cruz MD Unavailable [phone] Elaina Burgess Unavailable Kenna Lockett RN Unavailable [phone] Stan Win MD Unavailable [phone] Bubba Cruz MD Unavailable [phone] Encounter Details Date Type Department Care Team (Late st Contact Info) Description 08/26/2023 Abstract [facility] [address] [place] [address] Kris Rousseau, DO [address] [place] [address] Social History Tobacco Use Types Packs/Day Years [...] How often do you attend chur or congregational services? Never 01/23/2023 Do you belong to any clubs o r organizations such as yazidism groups, unions, fraternal or athletic groups, or [...] on filedocumented in this encounter Care Teams Salt Maker Relationship Specialty Start Date End Date Bubba Cruz MD [address] [address] (Fax) PCP - General Family Medicine 11/27/22 Bubba Cruz MD [address] [address] (Fax) PCP - ACO Reach 12/04/22 08/18/24 Bubba Cruz MD [address] [address] (Fax) PCP - ACO Reach 08/26/24 10/13/24 Elaina Burgess PA 5433 [facility] [address] [place] [address] Physician Fashion Buyer Neurology 12/02/23 Kenna Lockett, GRAHAM [address] [place] [address] Registered Nurse Family Medicine 12/02/23 Stan Win MD [address] [place] [address] Referring Physician Behavioral Health 12/02/23 documented as of this encounter
--- OUTSIDE RECORDS SUMMARY | 2025-01-26 15:29 | XMS_ITS | Encounter Summary ---
Author Organization [facility] Address [address] [place] [address] Care Team Providers Care Credit Investigator Name Role Phone Bubba Cruz MD Primary Care Provider + [phone] Bubba Cruz MD Unavailable [phone] Elaina Burgess Unavailable Kenna Lockett RN Unavailable [phone] Stan iWn MD Unavailable [phone] Bubba Cruz MD Unavailable [phone] Encounter Details Date Type Department Care Team (Late st Contact Info) Description 03/11/2023 Abstract [facility] [address] [place] [address] Bubba Cruz MD [address] [address] (Fax) Social History Tobacco Use [...] Yes 12/01/2022 Housing Stability Vital Sign Answer Jsoe e Recorded Unable to Pay for Housing [...] on filedocumented in this encounter Care Teams Credit Investigator Relationship Specialty Start Date End Date Bubba Cruz MD [address] [place] [address] PCP - General Family Medicine 11/27/22 Bubba Cruz MD [address] [place] [address] PCP - ACO Reach 12/04/22 08/18/24 Bubba Cruz MD [address] [place] [address] PCP - ACO Reach 08/26/24 10/13/24 Elaina Burgess PA 5433 [facility] [address] [place] [address] Physician Aircraft Steel Fabricator Neurology 12/02/23 Kenna Lockett, GRAHAM [address] [place] [address] Registered Nurse Family Medicine 12/02/23 Stan Win MD [address] [place] [address] Referring Physician Behavioral Health 12/02/23 documented as of this encounter
--- OUTSIDE RECORDS SUMMARY | 2025-01-26 15:30 | XMS_ITS | Encounter Summary ---
Author Organization [facility] Address [address] [place] [address] Care Team Providers Care Exerciser Horse Name Role Phone Bubba Cruz MD Primary Care Provider + [phone] Bubba Cruz MD Unavailable [phone] Elaina Burgess Unavailable Kenna Lockett RN Unavailable [phone] Stan Win MD Unavailable [phone] Bubba Cruz MD Unavailable [phone] Encounter Details Date Type Department Care Team (Late st Contact Info) Description 10/24/2023 Abstract [facility] [address] [place] [address] Shaikh James MD [address] [place] [address] Social History Tobacco Use Types Packs/Day Years [...] any clubs o r organizations such as moravian groups, unions, fraternal or athletic groups, or school groups? No 01/23/2023 Attends Club or Organization Meetings Not on eduadr e 01/23/2023 Are you , , di [...] on filedocumented in this encounter Care Teams Exerciser Horse Relationship Specialty Start Date End Date Bubba Cruz MD [address] [address] (Fax) PCP - General Family Medicine 11/27/22 Bubba Cruz MD [address] [address] (Fax) PCP - ACO Reach 12/04/22 08/18/24 Bubba Cruz MD [address] [address] (Fax) PCP - ACO Reach 08/26/24 10/13/24 Elaina Burgess PA [address] [place] [address] Physician Manager Quality Compliance Neurology 12/02/23 Kenna Lockett, GRAHAM [address] [place] [address] Registered Nurse Family Medicine 12/02/23 Stan Win MD [address] [place] [address] Referring Physician Behavioral Health 12/02/23 documented as of this encounter
--- OUTSIDE RECORDS SUMMARY | 2025-01-26 15:30 | XMS_ITS | Encounter Summary ---
Author Organization [facility] Address [address] [place] [address] Care Team Providers Care Gluing Machine Operator Electronic Name Role Phone Bubba Cruz MD Primary Care Provider [phone] Bubba Cruz MD Unavailable [phone] Elaina Burgess Unavailable Kenna Lockett RN Unavailable [phone] Stan Win MD Unavailable [phone] Bubba Cruz MD Unavailable [phone] Encounter Details Date Type Department Care Team (Late st Contact Info) Description 09/23/2023 Abstract [facility] [address] [place] [address] Mahnaz Roth MD [address] [place] [address] Social History Tobacco Use Types Packs/Day Years [...] How often do you attend chur or restorationism services? Never 01/23/2023 Do you belong to [...] on filedocumented in this encounter Care Teams Gluing Machine Operator Electronic Relationship Specialty Start Date End Date Bubba Cruz MD [address] [address] (Fax) PCP - General Family Medicine 11/27/22 Bubba Cruz MD [address] [place] [address] [address] (Fax) PCP - ACO Reach 12/04/22 08/18/24 Bubba Cruz MD [address] [address] (Fax) PCP - ACO Reach 08/26/24 10/13/24 Elaina Burgess PA 5433 [facility] [address] [place] [address] Physician Steam Oven Operator Neurology 12/02/23 Kenna Lockett, RN [address] [place] [address] Registered Nurse Family Medicine 12/02/23 Stan Win MD [address] [place] [address] Referring Physician Behavioral Health 12/02/23 documented as of this encounter
--- OUTSIDE RECORDS SUMMARY | 2025-01-26 15:30 | XMS_ITS | Encounter Summary ---
Author Organization [facility] Address [address] [place] [address] Care Team Providers Care Hot Saw Operator Name Role Phone Bubba Cruz MD Primary Care Provider [phone] Bubba Cruz MD Unavailable [phone] Elaina Burgess Unavailable Kenna Lockett RN Unavailable [phone] Stan Win MD Unavailable [phone] Bubba Cruz MD Unavailable [phone] Encounter Details Date Type Department Care Team (Late st Contact Info) Description 08/31/2023 Abstract [facility] [address] [place] [address] Lasha Wolfe MD [address] [place] [address] Social History Tobacco Use Types Packs/Day Years [...] week 01/23/2023 How often do you attend [facility] or sikhism services? Never 01/23/2023 Do you [...] on filedocumented in this encounter Care Teams Hot Saw Operator Relationship Specialty Start Date End Date Bubba Cruz MD [address] [address] (Fax) PCP - General Family Medicine 11/27/22 Bubba Cruz MD [address] [place] [address] (Fax) PCP - ACO Reach 12/04/22 08/18/24 Bubba Cruz MD [address] [address] (Fax) PCP - ACO Reach 08/26/24 10/13/24 Elaina Burgess PA 5433 [facility] [address] [place] [address] Physician Cook Candy Neurology 12/02/23 Kenna Lockett, GRAHAM [address] [place] [address] Registered Nurse Family Medicine 12/02/23 Stan Win MD [address] [place] [address] Referring Physician Behavioral Health 12/02/23 documented as of this encounter
--- OUTSIDE RECORDS SUMMARY | 2025-01-26 15:30 | XMS_ITS | Encounter Summary ---
Author Organization [facility] Address [address] [place] [address] Care Team Providers Care Systems Design Engineer Name Role Phone Bubba Ghotra MD Primary Care Provider + [phone] Bubba Ghotra MD Unavailable [phone] Elaina Frausto Unavailable Kenna Lockett RN Unavailable [phone] Stan Win MD Unavailable [phone] Bubba Ghotra MD Unavailable [phone] Encounter Details Date Type Department Care Team (Late st Contact Info) Description 06/23/2024 Clinisync Result Encounter [facility] External Department Unsolicited Elaina Frausto PA [address] [place] [address] Social History Tobacco Use Types [...] any clubs o r organizations such as hindu groups, unions, fraternal or athletic groups, or [...] PM EST Narrative 06/23/2024 5:20 [place] [address] Magnetic Resonance Report Signed Patient: SERGIO EMMANUEL MR#: [id number] : 1970 Acct:[id number] Age/Sex: 54 / M ADM Date: 06/23/24 Loc: MRI Attending Dr: Elaina RIGGINS Ordering Physician: Elaina Frausto Date of Service: 06/23/24 Procedure(s): MR thoracic spine wo/w con Accession Number(s): [id number] cc: BUBBA GHOTRA ; Elaina Frausto [place] [id number] Patient Name: SERGIO EMMANUEL MRN: [id number] date: 1970 Sex: M Assigned Patient Location: MRI Current Patient Location: MRI Accession/Order Number: [id number] Exam Date: 06/23/2024 15:18 Report Date: 06/23/2024 17:17 At the request of: ELAINA FRAUSTO Procedure: MR thoracic spine wo/w con [...] thoracic spine is noted. Electronically authenticated by: ROBBIN PRITCHETT Date: 06/23/2024 17:17 Dictated By: Robbin Pritchett M.D. Signed By: 06/23/241719 DD/ 16 TD/TT: Aircraft Delivery Checker: Procedure Note Radiology, Radiologist, MD - 06/23/2024 [place] [address] Magnetic Resonance Report Signed Patient: SERGIO EMMANUEL LMR#: [id number] : 1970Acct:[id number] Age/Sex: 54 / MADM Date: 06/23/24 Loc: MRI Attending Dr: Elaina RIGGINS Ordering Physician: Elaina Frausto Date of Service: 06/23/24 Procedure(s): MR thoracic spine wo/w con Accession Number(s): [id number] cc: BUBBA GHOTRA ; Elaina Frausto [place] [address] Patient Name: SERGIO EMMANUEL MRN: [facility]:[id number] date: 1970 Sex: M Assigned Patient Location: MRI Current Patient Location: MRI Accession/Order Number: [id number] Exam Date: 06/23/2024 15:18 Report Date: 06/23/2024 17:17 At the request of: ELAINA FRAUSTO Procedure: MR thoracic spine wo/w con [...] in thoracicspine is noted. Electronically authenticated by: ROBBIN PRITCHETT Date: 06/23/2024 17:17 Dictated By: Robbin Pritchett M.D. Signed By:06/23/24 172 DD/ 171 TD/TT: Aircraft Delivery Checker: Elaina RIGGINS [facility] Final Result documented in this encounter Visit Diagnoses Not on filedocumented in this encounter Additional Health Concerns Assessment Noted Time PHQ-9 Depression Total Score: 16 024 3:00 PM EDT documented as of this encounter Care Teams Systems Design Engineer Relationship Specialty Start Date End Date Bubba Ghotra MD [address] [address] (Fax) PCP - General Family Medicine 11/27/22 Bubba Ghotra MD [address] [address] PCP - ACO Reach 12/04/22 08/18/24 Bubba Ghotra MD [address] [place] [address] [address] [place] [address] PCP - ACO Reach 08/26/24 10/13/24 Elaina Frausto PA 5433 [facility] [address] [place] [address] Physician Refinery Operator Crude Unit Neurology 12/02/23 Kenna Lockett, GRAHAM [address] [place] [address] Registered Nurse Family Medicine 12/02/23 Stan Win MD [address] [place] [address] Referring Physician Behavioral Health 12/02/23 documented as of this encounter
--- OUTSIDE RECORDS SUMMARY | 2025-01-26 15:30 | XMS_ITS | Encounter Summary ---
Author Organization [facility] Address [address] [place] [address] Care Team Providers Care Winder Fixer Name Role Phone Bubba Cruz MD Primary Care Provider [phone] Bubba Cruz MD Unavailable [phone] Elaina Burgess Unavailable Kenna Lockett RN Unavailable [phone] Stan Win MD Unavailable [phone] Bubba Cruz MD Unavailable [phone] Encounter Details Date Type Department Care Team (Late st Contact Info) Description 08/27/2023 Abstract [facility] [address] [place] [address] Kris Rousseau, DO [address] [place] [address] Social History Tobacco Use Types Packs/Day Years [...] How often do you attend chur or bahai services? Never 01/23/2023 Do you belong to [...] on filedocumented in this encounter Care Teams Winder Fixer Relationship Specialty Start Date End Date Bubba Cruz MD [address] [address] (Fax) PCP - General Family Medicine 11/27/22 Bubba Cruz MD [address] [address] (Fax) PCP - ACO Reach 12/04/22 08/18/24 Bubba Cruz MD [address] [address] (Fax) PCP - ACO Reach 08/26/24 10/13/24 Elaina Burgess PA 5433 [facility] [address] [place] [address] Physician Operations Advisor Neurology 12/02/23 Kenna Lockett, GRAHAM [address] [place] [address] Registered Nurse Family Medicine 12/02/23 Stan Win MD [address] [place] [address] Referring Physician Behavioral Health 12/02/23 documented as of this encounter
--- OUTSIDE RECORDS SUMMARY | 2025-01-26 15:30 | XMS_ITS | Encounter Summary ---
Author Organization [facility] Address [address] [place] [address] Care Team Providers Care Veneer Lathe Operator Name Role Phone Bubba Cruz MD Primary Care Provider [phone] Bubba Cruz MD Unavailable [phone] Elaina Burgess Unavailable Kenna Lockett RN Unavailable [phone] Stan Win MD Unavailable [phone] Bubba Cruz MD Unavailable [phone] Encounter Details Date Type Department Care Team (Late st Contact Info) Description 10/16/2023 Abstract [facility] [address] [facility] [place] [place] [address] Reginaldo Castelan MD [address] [facility] Social History Tobacco Use Types Packs/Day [...] any clubs o r organizations such as anabaptism groups, unions, fraternal or athletic groups, or [...] on filedocumented in this encounter Care Teams Veneer Lathe Operator Relationship Specialty Start Date End Date Bubba Cruz MD [address] [address] (Fax) PCP - General Family Medicine 11/27/22 Bubba Cruz MD [address] [address] PCP - ACO Reach 12/04/22 08/18/24 Bubba Cruz MD [address] [address] PCP - ACO Reach 08/26/24 10/13/24 Elaina Burgess PA [address] [place] [address] Physician Telegraph Office Route Aide Neurology 12/02/23 Kenna Lockett RN [address] [address] Registered Nurse Family Medicine 12/02/23 Stan Win MD [address] [facility] [address] [place] [address] Referring Physician Behavioral Health 12/02/23 documented as of this encounter
--- OUTSIDE RECORDS SUMMARY | 2025-01-26 15:30 | XMS_ITS | Encounter Summary ---
Author Organization [facility] Address [address] [place] [address] Care Team Providers Care Beef Breaker Name Role Phone Bubba Ghotra MD Primary Care Provider + [phone] Bubba Ghotra MD Unavailable +[phone] Elaina Frausto Unavailable Kenna Lockett RN Unavailable [phone] Stan Win MD Unavailable [phone] Bubba Ghotra MD Unavailable [phone] Encounter Details Date Type Department Care Team (Late st Contact Info) Description 06/22/2024 Clinisync Result Encounter [facility] External Department Unsolicited Elaina Frausto PA [address] [place] [address] Social History Tobacco Use Types [...] any clubs o r organizations such as jain groups, unions, fraternal or athletic groups, or [...] PM EST Narrative 06/22/2024 9:53 [place] [address] Magnetic Resonance Report Signed Patient: SERGIO EMMANUEL MR#: [id number] : 1970 Acct:[id number] Age/Sex: 54 / M ADM Date: 06/22/24 Loc: MRI Attending Dr: Elaina RIGIGNS Ordering Physician: Elaina Frausto Date of Service: 06/22/24 Procedure(s): MR head/brain wo/w con Accession Number(s): [id number] cc: BUBBA GHOTRA ; Elaina Frausto [place] [address] Patient Name: SERGIO EMMANUEL MRN: [facility]:[id number] date: 1970 Sex: M Assigned Patient Location: MRI Current Patient Location: MRI Accession/Order Number: [id number] Exam Date: 06/22/2024 13:45 Report Date: 06/22/2024 21:50 At the request of: ELAINA FRAUSTO Procedure: MR head/brain wo/w con EXAM: [...] M.D. Signed By: 06/22/242152 DD/ 49 TD/TT: Director Of Radiology: Procedure Note Radiology, Radiologist, - 06/22/[address] [address] Magnetic Resonance Report Signed Patient: SERGIO EMMANUEL LMR#: [id number] : 1970Acct:[id number] Age/Sex: 54 / MADM Date: 06/22/24 Loc: MRI Attending Dr: Elaina RIGGINS Ordering Physician: Elaina Frausto Date of Service: 06/22/24 Procedure(s): MR head/brain wo/w con Accession Number(s): [id number] cc: BUBBA GHOTRA ; Elaina Frausto [place] [address] Patient Name: SERGIO EMMANUEL MRN: [id number] date: 1970 Sex: M Assigned Patient Location: MRI Current Patient Location: MRI Accession/Order Number: [id number] Exam Date: 06/22/2024 13:45 Report Date: 06/22/2024 21:50 At the request of: ELAINA FRAUSTO Procedure: MR head/brain wo/w con EXAM: [...] CASTILLO M.D. Signed By:06/22/242152 DD/ 49 TD/TT: Director Of Radiology: us Elaina RIGGINS IMG XR PROCEDURES Final Result documented in this encounter Visit Diagnoses Not on filedocumented in this encounter Additional Health Concerns Assessment Noted Time PHQ-9 Depression Total Score: 16 024 3:00 PM EDT documented as of this encounter Care Teams Beef Breaker Relationship Specialty Start Date End Date Bubba Ghotra MD [address] [address] (Fax) PCP - General Family Medicine 11/27/22 Bubba Ghotra MD [address] [place] [address] PCP - ACO Reach 12/04/22 08/18/24 Bubba Ghotra MD [address] [address] (Fax) PCP - ACO Reach 08/26/24 10/13/24 Elaina Frausto PA [address] [place] [address] Physician Mining Plant Operator Neurology 12/02/23 Kenna Lockett, GRAHAM [address] [place] [address] Registered Nurse Family Medicine 12/02/23 Stan Win MD [address] [place] [address] Referring Physician Behavioral Health 12/02/23 documented as of this encounter
--- OUTSIDE RECORDS SUMMARY | 2025-01-26 15:30 | XMS_ITS | Encounter Summary ---
Author Organization [facility] Address [address] [place] [address] Care Team Providers Care Radio Intelligence Operator Name Role Phone Bubba Cruz MD Primary Care Provider [phone] Bubba Cruz MD Unavailable [phone] Elaina Burgess Unavailable Kenna Lockett RN Unavailable [phone] Stan Win MD Unavailable [phone] Bubba Cruz MD Unavailable [phone] Encounter Details Date Type Department Care Team (Late st Contact Info) Description 07/16/2023 Abstract [facility] [address] [place] [address] Bubba Cruz MD 112 [facility] [address] [place] [address] (Fax) Social History Tobacco Use [...] How often do you attend chur or yazidi services? Never 01/23/2023 Do you belong to [...] on filedocumented in this encounter Care Teams Radio Intelligence Operator Relationship Specialty Start Date End Date Bubba Cruz MD [address] [address] (Fax) PCP - General Family Medicine 11/27/22 Bubba Cruz MD [address] [address] (Fax) PCP - ACO Reach 12/04/22 08/18/24 Bubba Cruz MD [address] [address] (Fax) PCP - ACO Reach 08/26/24 10/13/24 Elaina Burgess PA [address] [facility] [address] [place] [address] Physician Glass Science Engineer Neurology 12/02/23 Kenna Lockett, GRAHAM [address] [place] [address] Registered Nurse Family Medicine 12/02/23 Stan Win MD [address] [place] [address] Referring Physician Behavioral Health 12/02/23 documented as of this encounter
--- OUTSIDE RECORDS SUMMARY | 2025-01-26 15:30 | XMS_ITS | Encounter Summary ---
Author Organization [facility] Address [address] [place] [address] Care Team Providers Care Strip Cleaner Name Role Phone Bubba Cruz MD Primary Care Provider [phone] Elaina Burgess Unavailable Kenna Lockett RN Unavailable [phone] Stan Win MD Unavailable [phone] Reason for Visit * Reason Onset Date Comments Care Coordination 01/04/2025 Encounter Details Date Type Department Care Team (Late st Contact Info) Description 01/04/2025 Telephone [facility] [address] [place] [id number] Myrna Oh MA Care Coordination Social History [...] any clubs o r organizations such as restorationism groups, unions, fraIgnitAd or athletic groups, or school groups? No [...] last week. Pt had labs completed at [facility] the day prior to his visit, so [...] me the VO to possibly have the CONFERENCE INTERPRETER Alecia Bowen do the patients MWV at home due to his mobility issues from his MS. documented in this encounter Plan of Treatment Scheduled Orders Name Type Priority Associated Diagnoses Orde r Schedule Comprehensive metabolic panel Lab Routine Screening for diabetes mellitus (DM) Expected: 01/04/2025 (Approximate), Expires: 01/04/2026 Lipid panel Lab Routine Mixed hyperlipidemia Expected: 01/04/2025 (Approximate), Expires: 01/04/2026 documented as of this encounter Visit Diagnoses Diagnosis Mixed hyperlipidemia Mixed hyperlipidemia Screening for diabetes mellitus (DM) Screening for diabetes mellitus documented in this encounter Additional Health Concerns Assessment Noted Time PHQ-9 Depression Total Score: 16 024 3:00 PM EDT documented as of this encounter Care Teams Strip Cleaner Relationship Specialty Start Date End Date Bubba Cruz MD [address] [place] [address] (Fax) PCP - General Family Medicine 11/27/22 Elaina Burgess PA [address] [place] [phone] Physician Crucible Furnace Tender Neurology 12/02/23 Kenna Lockett, GRAHAM [address] [facility] [address] [place] [address] Registered Nurse Family Medicine 12/02/23 Stan Win MD [address] [place] [address] Referring Physician Behavioral Health 12/02/23 documented as of this encounter
--- OUTSIDE RECORDS SUMMARY | 2025-01-26 15:30 | XMS_ITS | Encounter Summary ---
Author Organization [facility] Address [address] [place] [address] Care Team Providers Care Armature And Rotor Winder Name Role Phone Bubba Cruz MD Primary Care Provider [phone] Bubba Cruz MD Unavailable [phone] Elaina Burgess Unavailable Kenna Lockett RN Unavailable [phone] Stan Win MD Unavailable [phone] Bubba Cruz MD Unavailable [phone] Encounter Details Date Type Department Care Team (Late st Contact Info) Description 07/29/2023 Abstract [facility] [address] [place] [address] Bubba Cruz MD 112 [facility] 100 [place] [address] (Fax) Social History Tobacco Use [...] How often do you attend chur or presybeterian services? Never 01/23/2023 Do you belong to any clubs o r organizations such as muslim groups, unions, fraternal or athletic groups, or [...] on filedocumented in this encounter Care Teams Armature And Rotor Winder Relationship Specialty Start Date End Date Bubba Cruz MD [address] [address] (Fax) PCP - General Family Medicine 11/27/22 Bubba Cruz MD [address] [address] (Fax) PCP - ACO Reach 12/04/22 08/18/24 Bubba Cruz MD [address] [address] (Fax) PCP - ACO Reach 08/26/24 10/13/24 Elaina Burgess PA 5433 [facility] [address] [place] [address] Physician Copy Chaser Neurology 12/02/23 Kenna Lockett, GRAHAM [address] [place] [address] Registered Nurse Family Medicine 12/02/23 Stan Win MD [address] [place] [address] Referring Physician Behavioral Health 12/02/23 documented as of this encounter
--- OUTSIDE RECORDS SUMMARY | 2025-01-26 15:30 | XMS_ITS | Encounter Summary ---
Author Organization [facility] Address [address] [place] [address] Care Team Providers Care Developer Analyst Name Role Phone Bubba Cruz MD Primary Care Provider [phone] Bubba Cruz MD Unavailable [phone] Elaina Burgess Unavailable Kenna Lockett RN Unavailable [phone] Stan Win MD Unavailable [phone] Bubba Cruz MD Unavailable [phone] Encounter Details Date Type Department Care Team (Late st Contact Info) Description 09/15/2023 Abstract [facility] [address] [place] [address] Bubba Cruz MD 112 [facility] 100 [place] [address] (Fax) Social History Tobacco Use [...] any clubs o r organizations such as latter day groups, unions, fraternal or athletic groups, or [...] on filedocumented in this encounter Care Teams Developer Analyst Relationship Specialty Start Date End Date Bubba Cruz MD [address] [address] (Fax) PCP - General Family Medicine 11/27/22 Bubba Cruz MD [address] [address] (Fax) PCP - ACO Reach 12/04/22 08/18/24 Bubba Cruz MD [address] [address] (Fax) PCP - ACO Reach 08/26/24 10/13/24 Elaina Burgess PA [address] [facility] [address] [place] [address] Physician Business Services Administrator Neurology 12/02/23 Kenna Lockett, GRAHAM [address] [place] [address] Registered Nurse Family Medicine 12/02/23 Stan Win MD [address] [place] [address] Referring Physician Behavioral Health 12/02/23 documented as of this encounter
--- OUTSIDE RECORDS SUMMARY | 2025-01-26 15:30 | XMS_ITS | Encounter Summary ---
Author Organization [facility] Address [address] [place] [address] Care Team Providers Care Foundry Finisher Name Role Phone Bubba Cruz MD Primary Care Provider [phone] Bubba Cruz MD Unavailable [phone] Elaina Burgess Unavailable Kenna Lockett RN Unavailable [phone] Stan Win MD Unavailable [phone] Bubba Cruz MD Unavailable [phone] Encounter Details Date Type Department Care Team (Late st Contact Info) Description 10/16/2023 Orders Only [facility] [address] [facility] [place] [address] Reginaldo Castelan MD [address] [facility] Social History Tobacco Use Types [...] any clubs o r organizations such as yarsani groups, unions, fraternal or athletic groups, or [...] on filedocumented in this encounter Care Teams Foundry Finisher Relationship Specialty Start Date End Date Bubba Cruz MD [address] [address] PCP - General Family Medicine 11/27/22 Bubba Cruz MD [address] [address] (Fax) PCP - ACO Reach 12/04/22 08/18/24 Bubba Cruz MD [address] [address] PCP - ACO Reach 08/26/24 10/13/24 Elaina Burgess PA 5433 [facility] [address] [place] [address] Physician Hog Confinement System Manager Neurology 12/02/23 Kenna Lockett, GRAHAM [address] [place] [address] Registered Nurse Family Medicine 12/02/23 Stan Win MD [address] [place] [address] Referring Physician Behavioral Health 12/02/23 documented as of this encounter
--- OUTSIDE RECORDS SUMMARY | 2025-01-26 15:30 | XMS_ITS | Encounter Summary ---
Author Organization [facility] Address [address] [place] [address] Care Team Providers Care Supervisor Network Control Operators Name Role Phone Bubba Cruz MD Primary Care Provider + [phone] Bubba Cruz MD Unavailable [phone] Elaina Burgess Unavailable Kenna Lockett RN Unavailable [phone] Stan Win MD Unavailable [phone] Bubba Cruz MD Unavailable [phone] Encounter Details Date Type Department Care Team (Late st Contact Info) Description 09/14/2023 Orders Only [facility] [address] [facility] [place] [address] Bubba Cruz MD 112 [facility] [address] [place] [address] (Fax) Social History Tobacco Use [...] on filedocumented in this encounter Care Teams Supervisor Network Control Operators Relationship Specialty Start Date End Date Bubba Cruz MD [address] [address] (Fax) PCP - General Family Medicine 11/27/22 Bubba Cruz MD [address] [address] (Fax) PCP - ACO Reach 12/04/22 08/18/24 Bubba Cruz MD [address] [address] (Fax) PCP - ACO Reach 08/26/24 10/13/24 Elaina Burgess PA 5433 [facility] [address] [place] [address] Physician Account Relationship Manager Neurology 12/02/23 Kenna Lockett, GRAHAM [address] [place] [address] Registered Nurse Family Medicine 12/02/23 Stan Win MD [address] [place] [address] Referring Physician Behavioral Health 12/02/23 documented as of this encounter
--- OUTSIDE RECORDS SUMMARY | 2025-01-26 15:30 | XMS_ITS | Encounter Summary ---
Author Organization [facility] Address [address] [place] [address] Care Team Providers Care Hand Spring Former Name Role Phone Bubba Cruz MD Primary Care Provider + [phone] Elaina Burgess Unavailable Kenna Lockett RN Unavailable [phone] Stan Win MD Unavailable [phone] Encounter Details Date Type Department Care Team (Late st Contact Info) Description 01/10/2025 Orders Only [facility] [address] [place] [address] Bubba Cruz MD [address] [place] [address] Social History Tobacco Use Types Packs/Day Years [...] week 01/23/2023 How often do you attend [facility] or catholic services? Never 01/23/2023 Do you belong to any clubs o r organizations such as buddhist groups, unions, fraternal or athletic groups, or [...] documented as of this encounter Care Teams Hand Spring Former Relationship Specialty Start Date End Date Bubba rCuz MD [address] [place] [address] PCP - General Family Medicine 11/27/22 Elaina Burgess PA 5433 [facility] [address] [place] [address] Physician Corporate Safety Coordinator Neurology 12/02/23 Kenna Lockett, GRAHAM [address] [place] [address] Registered Nurse Family Medicine 12/02/23 Stan Win MD [address] [place] [address] Referring Physician Behavioral Health 12/02/23 documented as of this encounter
--- OUTSIDE RECORDS SUMMARY | 2025-01-26 15:30 | XMS_ITS | Encounter Summary ---
Author Organization [facility] Address [address] [place] [address] Care Team Providers Care Calculation Clerk Name Role Phone Bubba Ghotra MD Primary Care Provider + [phone] Bubba Ghotra MD Unavailable [phone] Elaina Burgess Unavailable Kenna Lockett RN Unavailable [phone] Stan Win MD Unavailable [phone] Bubba Ghotra MD Unavailable [phone] Encounter Details Date Type Department Care Team (Late st Contact Info) Description 09/18/2023 Clinisync Result Encounter [facility] External Department Unsolicited Bubba Ghotra MD 112 [facility] [address] [place] [address] Social History Tobacco Use Types [...] week 01/23/2023 How often do you attend [facility] or hinduism services? Never 01/23/2023 Do you belong to any clubs o r organizations such as scientologist groups, unions, fraternal or athletic groups, or [...] AM EST Narrative 09/18/2023 11:53 [place] [address] Ultrasound Report Signed Patient: SERGIO EMMANUEL MR#: [id number] : 1970 Acct:[id number] Age/Sex: 53 / M ADM Date: 09/18/23 Loc: US Attending Dr: BUBBA GHOTRA Ordering Physician: BUBBA GHOTRA Date of Service: 09/18/23 Procedure(s): US venous doppler LE RT Accession Number(s): [id number] cc: BUBBA GHOTRA [place] [address] Patient Name: SERGIO EMMANUEL MRN: [facility]:[id number] date: 1970 Sex: M Assigned Patient Location: US Current Patient Location: US Accession/Order Number: [id number] Exam Date: 09/18/2023 10:45 Report Date: 09/18/2023 [...] Signed By: 09/18/23 1153 DD/ 1150 TD/TT: Die Barber: Procedure Note Radiology, Radiologist, MD - 09/18/2023 [place] [address] Ultrasound Report Signed Patient: SERGIO EMMANUEL LMR#: [id number] : 1970Acct:[id number] Age/Sex: 53 / MADM Date: 09/18/23 Loc: US Attending Dr: BUBBA GHOTRA Ordering Physician: BUBBA GHOTRA Date of Service: 09/18/23 Procedure(s): US venous doppler LE RT Accession Number(s): [id number] cc: BUBBA GHOTRA [address] [place] [address] Patient Name: SERGIO EMMANUEL MRN: [id number] date: 1970 Sex: M Assigned Patient Location: Current Patient Location: US Accession/Order Number: [id number] Exam Date: 09/18/2023 10:45 Report Date: 09/18/2023 [...] M.D. Signed By:09/18/23 1153 DD/ 1150 TD/TT: Die Barber: Bubba Ghotra MD IMG US PROCEDURES Final Resu lt documented in this encounter Visit Diagnoses Not on filedocumented in this encounter Care Teams Calculation Clerk Relationship Specialty Start Date End Date Bubba Ghotra MD [address] [place] [address] PCP - General Family Medicine 11/27/22 Bubba Ghotra MD [address] [facility] [place] [address] PCP - ACO Reach 12/04/22 08/18/24 Bubba Ghotra MD [address] [facility] [place] [address] PCP - ACO Reach 08/26/24 10/13/24 Elaina Burgess PA 5433 [facility] [address] [place] [id number] Physician Wax Engraver Neurology 12/02/23 Kenna Lockett, GRAHAM [address] [place] [address] Registered Nurse Family Medicine 12/02/23 Stan Win MD [address] [place] [address] Referring Physician Behavioral Health 12/02/23 documented as of this encounter
--- OUTSIDE RECORDS SUMMARY | 2025-01-26 15:30 | XMS_ITS | Encounter Summary ---
Author Organization [facility] Address [address] [place] [address] Care Team Providers Care Private Duty Nurse Name Role Phone Bubba Ghotra MD Primary Care Provider + [phone] Bubba Ghotra MD Unavailable [phone] Elaina Frausto Unavailable Kenna Lockett RN Unavailable [phone] Stan Win MD Unavailable [phone] Bubba Ghotra MD Unavailable [phone] Encounter Details Date Type Department Care Team (Late st Contact Info) Description 06/23/2024 Clinisync Result Encounter [facility] External Department Unsolicited Elaina Frausto PA [address] [place] [address] Social History Tobacco Use Types [...] How often do you attend chur or sabianism services? Never 01/23/2023 Do you belong to [...] PM EST Narrative 06/23/2024 5:20 [place] [address] Magnetic Resonance Report Signed Patient: SERGIO EMMANUEL MR#: [id number] : 1970 Acct:[id number] Age/Sex: 54 / M ADM Date: 06/23/24 Loc: MRI Attending Dr: Elaina RIGGINS Ordering Physician: Elaina Frausto Date of Service: 06/23/24 Procedure(s): MR cervical spine wo/w con Accession Number(s): [id number] cc: BUBBA GHOTRA ; Elaina Frausto [address] [address] Patient Name: SERGIO EMMANUEL MRN: [id number] date: 1970 Sex: M Assigned Patient Location: MRI Current Patient Location: MRI Accession/Order Number: [id number] Exam Date: 06/23/2024 15:18 Report Date: 06/23/2024 17:17 At the request of: ELAINA FRAUSTO Procedure: MR cervical spine wo/w con [...] M.D. Signed By: 06/23/241719 DD/ 16 TD/TT: Web Editor: Procedure Note Radiology, Radiologist, MD - 06/23/2024 [place] [address] Magnetic Resonance Report Signed Patient: SERGIO EMMANUEL LMR#: [id number] : 1970Acct:[id number] Age/Sex: 54 / MADM Date: 06/23/24 Loc: MRI Attending Dr: Elaina RIGGINS Ordering Physician: Elaina Frausto Date of Service: 06/23/24 Procedure(s): MR cervical spine wo/w con Accession Number(s): [id number] cc: BUBBA GHOTRA ; Elaina Frausto [address] [place] [address] Patient Name: SERGIO EMMANUEL MRN: [id number] date: 1970 Sex: M Assigned Patient Location: MRI Current Patient Location: MRI Accession/Order Number: [id number] Exam Date: 06/23/2024 15:18 Report Date: 06/23/2024 17:17 At the request of: ELAINA FRAUSTO Procedure: MR cervical spine wo/w con [...] M.D. Signed By:06/23/24 172 DD/ 171 TD/TT: Web Editor: us Elaina RIGGINS [facility] Final Result documented in this encounter Visit Diagnoses Not on filedocumented in this encounter Additional Health Concerns Assessment Noted Time PHQ-9 Depression Total Score: 16 024 3:00 PM EDT documented as of this encounter Care Teams Private Duty Nurse Relationship Specialty Start Date End Date Bubba Ghotra MD [address] [address] (Fax) PCP - General Family Medicine 11/27/22 Bubba Ghotra MD [address] [address] (Fax) PCP - ACO Reach 12/04/22 08/18/24 Bubba Ghotra MD [address] [place] [address] [address] [place] [address] PCP - ACO Reach 08/26/24 10/13/24 Elaina Frausto PA 5433 [facility] [address] [place] [address] Physician Paediatric Surgeon Neurology 12/02/23 Kenna Lockett RN [address] [place] [address] Registered Nurse Family Medicine 12/02/23 Stan Win MD [address] [place] [address] Referring Physician Behavioral Health 12/02/23 documented as of this encounter
== END 2025-01-26 15:26 | disposition home or self-care (01) ==
LOC: LAB 15:25
PROVIDERS: PCP Family Medicine; Visit Provider Psychiatry & Neurology Neurology
DX: G35 Multiple sclerosis (principal)
CPT/HCPCS: 36415; 86317; 86704; 87340